=== PATIENT | female | born 1950 | race Caucasian/White ===

== ENCOUNTER 2022-02-18 11:00 | Outpatient (RCR) | payer MEDICARE, SELFPAY | END 2022-06-26 15:29 | disposition home or self-care (01) | PROVIDERS: PCP Internal Medicine; Visit Provider Internal Medicine | DX: M25.511 Pain in right shoulder (principal); Z51.89 Encounter for other specified aftercare | CPT/HCPCS: 97110 ==

== ENCOUNTER 2022-07-02 08:07 | Outpatient (CLI) | payer MEDICARE, SELFPAY ==
--- OUTSIDE RECORDS SUMMARY | 2022-07-02 13:35 | XMS_ITS | Encounter Summary ---
:1950 Author Organization [facility] Address [address] [place] [id number] Care Team Providers Name Role Phone Elyse Paredes MD Primary Care Provider Reason for Referral CV Testing (Routine) - Closed Specialty Diagnoses / Procedures Referred By Contact Refer red To Contact Diagnoses S/P TAVR (transcatheter aortic valve replacement) Dagmar Kendrick MD Procedures Echocardiogram Complete [facility] TTE W/DOPPLER, COMPLETE [facility] ECHO COMPLETE W DOPPLER W CONTRAST ZZ[facility] ECHO COMPLETE W DOPPLER W/O CONTRAST ZZ[facility] IV PUSH SINGLE, INITIAL SUBSTANCE ZZHC US GUIDE FOR PERICARDIOCENTESIS [address] [facility], ZZHC ECHO MYOCARD BX ZZC INJECTION, PERFLUTREN LIPID MICROSPHERES, PER ML ZZHC STATISTIC IV PUSH SINGLE INITIAL SUBSTANCE KS ECHO MYOCARD BX KS INJECTION, PERFLUTREN LIPID MICROSPHERES, PER ML [place] TTE W/DOPPLER, COMPLETE [address] [place] IV PUSH SINGLE, INITIAL S UBSTANCE KS TTE W/DOPPLER, COMPLETE KS TTE W/DOPPLER, COMPLETE HC US GUIDE FOR PERICARDIOCENTESIS HC ECHO MYOCARD BX HC IV PUSH SINGLE, INITIAL SUBSTANCE HC STATISTIC IV PUSH [place] [address] HC ECHO COMPLETE W DOPPLER W CONTRAST HC ECHO COMPLETE W DOPPLER W/O CONTRAST Referral ID Status Reason Start Date Expiration Date Visits Requ ested Visits Authorized [id number] Closed 03/17/2022 03/17/2023 1 1 onsultation (Routine: Next available opening) - Pending Review Specialty Diagnoses / Procedures Referred By Contact Refer red To Contact Cardiovascular Disease Diagnoses Persistent atrial fibrillation (H) Dagmar Kendrick MD [address] [facility], [address] [place] [address] Referral ID Status Reason Start Date Expiration Date Visits V isits Requested Authorized [id number] Pending 03/17/2022 03/17/2023 1 1 Review Reason for Visit Reason Comments Follow Up Encounter Details Date Type Department Care Team Description 03/17/2022 Office Visit [facility] Dagmar Kendrick, Coronary artery disease involving seldovia coronary artery of s[place]ia heart, unspecified whether angina present (Primary Dx); Heart Clinic S/P TAVR (transcatheter aortic valve rep lacement); [place] [address] Persistent atrial fibrillati on (H); [address] [facility], Essential hype rtension; [place] [address] [place] [id number] [phone] Social History Tobacco Use Types Packs/Day Years Used Date Smoking Tobacco: Never Smokeless Tobacco: Never Alcohol Use Standard Drinks/Week Comments No 0 (1 standard drink = 0.6 oz pure alcoho l) Sex Assigned at Date Recorded Not on file COVID-19 Exposure Response Date Recorded In the last 10 days, have you been in contact with No / Unsu re 03/17/2022 10:40 AM CDT someone who was confirmed or suspected to have Coronavirus/COVID-19? documented as of this encounter Last Filed Vital Signs Vital Sign Reading Time Taken Comments Blood Pressure 124/64 03/17/2022 11:12 AM CDT Pulse 83 03/17/2022 11:12 AM CDT Temperature - - Respiratory Rate 14 03/17/2022 11:12 AM CDT Oxygen Saturation - - Inhaled Oxygen Concentration - - Weight 123.4 kg (272 lb) 03/17/2022 11:12 AM CDT Height 158.8 cm (5' 2.5) 03/17/2022 11:12 AM CDT Body Mass Index 48.96 03/17/2022 11:12 AM CDT documented in this encounter Patient Instructions Patient InstructionsDagmar Kendrick MD - 03/17/2022 10:50 AM CDT Discontinue rosuvastatin for 2 weeks to see if muscle aches/cramping improve or resolve. If so, would consider alternative medications for cholesterol Visit with Roland Salazar regarding Watchman device implant Schedule echo to follow up on TAVR. Will see if they can schedule on the same day as appt with Roland documented in this encounter Progress Notes Dagmar Kendrick MD - 03/17/2022 10:50 AM CDT Images from the original note were not included. Thank you for asking the [facility] team to see Ms. Irvin Hoffman to follow-up on coronary artery disease, previous TAVR, hypercholesterolemia. Assessment/Recommendations Assessment: 1. Coronary artery disease, status post stenting of the left anterior descending in June 2017 prior to TAVR. She reports no complaints of exertional chest discomfort. She has had chronic exertionaldyspnea since her procedure with nuclear stress study last year negative for ischemia. At this pointsuspect her exertional dyspnea is likely due to obesity and cardiovascular deconditioning. 2. Aortic valve stenosis, status post TAVR June 2017. Her last echocardiogram was in October 2019 demonstrating mean gradient of 20 mmHg which have been unchanged. Recommended repeat echocardiogram to follow-up on her prosthetic valve. 3. Persistent atrial fibrillation, resolved following amiodarone therapy. She remains on warfarin anticoagulation to minimize risks of thromboembolic events. She is having significant joint discomfort,likely due to osteoarthritis. Cannot be on NSAIDs due to her anticoagulation. Did bring up the option of watchman device implant which would allow her to come off anticoagulation and potentially be on nonsteroidal anti-inflammatory agents. We will refer her to the A. fib clinic to meet with Roland Salazar who she has seen in the past to discuss this possibility. 4. Hypercholesterolemia, currently treated with rosuvastatin. She reports multiple muscle aches. Unclear whether it may be statin related. Suggested she hold her rosuvastatin for the next couple of weeks and update me if she notes any improvement in symptoms. 5. Essential hypertension, well controlled Plan: 1. Discontinue rosuvastatin for the next 2 weeks to see if muscle aches/cramping resolved. If so, consider PCSK9 inhibitor to drive LDL below 70. 2. Visit with Roland Salazar regarding watchman device implant 3. Schedule echocardiogram to follow-up on TAVR. We will be in touch with her regarding results and any recommendations 4. Tentative follow-up with me in 1 year History of Present Illness Ms. Irvin Hoffman is a 71 year old female with history of coronary artery disease and aortic valve stenosis, status post drug-eluting stent placement to the mid LAD in 2017 followed by TAVR, persistent atrial fibrillation resolved following amiodarone and cardioversion now on beta-elpidio and warfarin anticoagulation, hypercholesterolemia, obesity who presents to the office today for a follow-up visit. Tells me she is having increasing pain in her joints and muscles as well as intermittent cramping. Was told by her new primary care provider that if she was not taking warfarin he could potentially put her on medication to help with her arthritis issues. Suspect he is considering NSAIDs which are notrecommended in patients on oral anticoagulation. Did bring up the possibility of a watchman device implant which would allow her to come off anticoagulation as she is clearly at risk for recurrent atrial fibrillation. Presently she denies any symptoms of exertional chest discomfort. Does have her chronic exertional dyspnea. No orthopnea, PND or lower extremity edema. Does admit to feeling quite fatigued but does wear her CPAP mask faithfully. ECG (personally reviewed): No ECG today Cardiac Imaging Studies (personally reviewed): No recent imaging Physical Examination Review of Systems BP 124/64 (BP Location: Right arm, Patient Position: Sitting, Cuff Size: Adult Large) Pulse 83 Resp 14 Ht 1.588 m (5' 2.5) Wt 123.4 kg (272 lb) BMI 48.96 kg/m?? Body mass index is 48.96 kg/m??. Wt Readings from Last 3 Encounters: 03/17/22 123.4 kg (272 lb) 12/26/20 120.1 kg (264 lb 12.8 oz) 12/29/19 128.8 kg (284 lb) General Appearance: Awake, Alert, No acute distress. HEENT: No scleral icterus; the mucous membranes were pink and moist. Neck: No cervical bruits or jugular venous distention Chest: The spine was straight. The chest was symmetric. Lungs: Respirations unlabored; the lungs are clear to auscultation. No wheezing Cardiovascular: Regular rate and rhythm. S1, S2 normal. 1/6 systolic ejection murmur heard at the left upper sternal border. No diastolic murmur. Abdomen: No organomegaly, masses, bruits, or tenderness. Bowels sounds are present Extremities: No peripheral edema bilaterally Skin: No xanthelasma. Warm, Dry. Musculoskeletal: No tenderness. Neurologic: Mood and affect are appropriate. Enc Vitals BP: 124/64 Pulse: 83 Resp: 14 Weight: 123.4 kg (272 lb) Height: 158.8 cm (5' 2.5) Medical History Surgical History Family History Social History Past Medical History: Diagnosis Date ??? Bicuspid aortic valve 2017 ??? Cancer (H) 2017 breast cancer invasive ductal carcinoma ??? CHF (congestive heart failure) (H) 2016 ??? Coronary artery disease 05/2017 JEFFERSON,LAD (2 stents) ??? Depression 2013 ??? Diabetes mellitus (H) 1994 insulin ??? DJD (degenerative joint disease) ??? Dyspnea 2017 ??? Hyperlipidemia 1995 ??? Hypertension 1995 ??? Kidney stones 2017 ??? Morbid obesity (H) ??? Nephrolithiasis 2017 renal cyst ??? DEDE on CPAP 2008 ??? Persistent atrial fibrillation (H) 2016 ??? Severe aortic stenosis 2017 ??? Thyroid cyst ??? Tooth abscess 2016 Past Surgical History: Procedure Laterality Date ??? CARDIAC CATHETERIZATION 05/12/2017 ??? CARDIOVERSION 2017 ??? COLONOSCOPY N/A 06/27/2019 Procedure: COLONOSCOPY; Surgeon: Jeni Barrera MD; Location: [facility]; Service: Gastroenterology ??? COLONOSCOPY N/A 10/10/2019 Procedure: COLONOSCOPY; Surgeon: Falguni Mccain MD; Location: [facility]; Service: Gastroenterology ??? CV CORONARY ANGIOGRAM N/A 05/12/2017 Procedure: Coronary Angiogram; Surgeon: Ankush Martinez MD; Location: [facility]; Service: ??? CV TRANSCATHETER AORTIC VAVLE REPLACEMENT - FEMORAL APPROACH N/A 07/06/2017 Procedure: Transfemoral Transcatheter Aortic Valve Replacement; Surgeon: Ankush Martinez MD; Location: [facility]; Service: ??? LUMPECTOMY BREAST Left 2019 completed radiation therapy ??? TOTAL KNEE ARTHROPLASTY Bilateral Family History Problem Relation Age of Onset ??? Diabetes Father ??? Heart Disease Father ??? Esophageal Cancer Brother ??? Urolithiasis No family hx of ??? Clotting Disorder No family hx of ??? Gout No family hx of Social History Socioeconomic History ??? Marital status: Spouse name: Not on file ??? Number of children: Not on file ??? Years of education: Not on file ??? Highest education level: Not on file Occupational History ??? Not on file Tobacco Use ??? Smoking status: Never Smoker ??? Smokeless tobacco: Never Used Substance and Sexual Activity ??? Alcohol use: No ??? Drug use: No ??? Sexual activity: Not Currently Other Topics Concern ??? Not on file Social History Narrative ??? Not on file Social Determinants of Health Financial Resource Strain: Not on file Food Insecurity: Not on file Transportation Needs: Not on file Physical Activity: Not on file Stress: Not on file Social Connections: Not on file Intimate Partner Violence: Not on file Housing Stability: Not on file Medications Allergies Current Outpatient Medications Medication Sig Dispense Refill ??? acetaminophen (TYLENOL) 650 MG CR tablet Take 1,300 mg by mouth as needed ??? allopurinoL (ZYLOPRIM) 100 MG tablet [ALLOPURINOL (ZYLOPRIM) 100 MG TABLET] Take 1 tablet by mouth daily. ??? amoxicillin (AMOXIL) 500 MG tablet [AMOXICILLIN (AMOXIL) 500 MG TABLET] Take 2,000 mg by mouth as needed (prior to dental work). ??? aspirin 81 MG EC tablet [ASPIRIN 81 MG EC TABLET] Take 1 tablet (81 mg total) by mouth daily. 0 ??? BD INSULIN PEN NEEDLE UF MINI 31 gauge x 10/15 Ndle [BD INSULIN PEN NEEDLE UF MINI 31 GAUGE X 10/15 NDLE] USE 4-5 PER DAY UTD 0 ??? BD INSULIN PEN NEEDLE UF SHORT 31 gauge x 12/15 Ndle [BD INSULIN PEN NEEDLE UF SHORT 31 GAUGE X 12/15 NDLE] USE WITH TOUJEO AND VICTOZA BID 3 ??? cholecalciferol 25 MCG (1000 UT) TABS Take 1,000 Units by mouth daily ??? CRESTOR 10 mg tablet [CRESTOR 10 MG TABLET] Take 10 mg by mouth daily. ??? famotidine (FOR PEPCID) 10 MG tablet [FAMOTIDINE (FOR PEPCID) 10 MG TABLET] Take 10 mg by mouth as needed. ??? insulin lispro (HUMALOG) 100 unit/mL injection [INSULIN LISPRO (HUMALOG) 100 UNIT/ML INJECTION] Inject 6-10 Units under the skin 3 (three) times a day before meals. ??? LANTUS SOLOSTAR 100 unit/mL (3 mL) pen [LANTUS SOLOSTAR 100 UNIT/ML (3 ML) PEN] 60 Units at bedtime. Last night 28u ??? losartan (COZAAR) 50 MG tablet [LOSARTAN (COZAAR) 50 MG TABLET] Take 1.5 tablets (75 mg total) by mouth daily. 135 tablet 2 ??? metoprolol succinate (TOPROL-XL) 25 MG [METOPROLOL SUCCINATE (TOPROL-XL) 25 MG] TAKE 1 TABLET(25MG) BY MOUTH DAILY 90 tablet 0 ??? semaglutide (OZEMPIC) 0.25 mg or 0.5 mg(2 mg/1.5 mL) PnIj [SEMAGLUTIDE (OZEMPIC) 0.25 MG OR 0.5 MG(2 MG/1.5 ML) PNIJ] as directed ??? tamoxifen (NOLVADEX) 20 MG tablet [TAMOXIFEN (NOLVADEX) 20 MG TABLET] Take 1 tablet by mouth daily. ??? venlafaxine (EFFEXOR-XR) 37.5 MG 24 hr capsule Take 37.5 mg by mouth daily ??? warfarin ANTICOAGULANT (COUMADIN) 4 MG tablet Take 4 mg by mouth daily ??? anastrozole (ARIMIDEX) 1 mg tablet [ANASTROZOLE (ARIMIDEX) 1 MG TABLET] Take 1 mg by mouth daily. (Patient not taking: Reported on 03/17/2022) ??? celecoxib (CELEBREX) 200 MG capsule [CELECOXIB (CELEBREX) 200 MG CAPSULE] Take 200 mg by mouth daily. (Patient not taking: Reported on 03/17/2022) ??? chlorthalidone (HYGROTEN) 25 MG tablet [CHLORTHALIDONE (HYGROTEN) 25 MG TABLET] Take 1 tablet (25 mg total) by mouth daily. (Patient not taking: Reported on 03/17/2022) 90 tablet 2 ??? dulaglutide 0.75 mg/0.5 mL PnIj [DULAGLUTIDE 0.75 MG/0.5 ML PNIJ] Inject 1.5 mg under the skin once a week. (Patient not taking: Reported on 03/17/2022) ??? methocarbamoL (ROBAXIN) 500 MG tablet [METHOCARBAMOL (ROBAXIN) 500 MG TABLET] Take 1 tablet (500mg total) by mouth 2 (two) times a day as needed (muscle spasm). (Patient not taking: Reported on 03/17/2022) 14 tablet 0 ??? oxyCODONE (ROXICODONE) 5 MG immediate release tablet [OXYCODONE (ROXICODONE) 5 MG IMMEDIATE RELEASE TABLET] Take 1 tablet (5 mg total) by mouth every 8 (eight) hours as needed (breakthrough pain). (Patient not taking: Reported on 03/17/2022) 6 tablet 0 ??? sertraline (ZOLOFT) 100 MG tablet [SERTRALINE (ZOLOFT) 100 MG TABLET] Take 50 mg by mouth daily.(Patient not taking: Reported on 03/17/2022) ??? warfarin (COUMADIN/JANTOVEN) 2.5 MG tablet [WARFARIN (COUMADIN/JANTOVEN) 2.5 MG TABLET] TAKE 1 TABLET BY MOUTH EVERY DAY (Patient not taking: Reported on 03/17/2022) 90 tablet 0 ??? warfarin (COUMADIN/JANTOVEN) 5 MG tablet [WARFARIN (COUMADIN/JANTOVEN) 5 MG TABLET] TAKE 1 TABLET BY MOUTH DAILY. ADJUST DOSE BASED ON INR RESULTS DIRECTED (Patient not taking: Reported on 03/17/2022) 30 tablet 0 Allergies Allergen Reactions ??? Lisinopril Cough ??? Metformin Nausea and Vomiting ??? Erythromycin Base [Erythromycin] Rash ??? Ilosone [Erythromycin] Rash Lab Results Chemistry/lipid CBC Cardiac Enzymes/BNP/TSH/INR Recent Labs Lab Test 04/28/21 1443 06/05/20 1053 10/04/19 1502 TRIG -- -- 182* LDL -- -- 70 BUN 16 < > 25* NA 141 < > 140 CO2 25 < > 29 < > = values in this interval not displayed. Recent Labs Lab Test 06/05/20 1053 WBC 7.6 HGB 13.5 HCT 38.5 MCV 94 PLT 190 Recent Labs Lab Test 06/05/20 1053 10/04/19 1502 04/11/18 0000 03/23/18 0932 TROPONINI 0.02 -- -- -- BNP -- 12 -- -- TSH -- -- -- 5.91* INR 2.10* -- < > -- < > = values in this interval not displayed. A total of 45 minutes was spent reviewing patient's medical records, obtaining history and performing examination, as well as discussing diagnoses/ recommendations with patient and answering all questions. documented in this encounter Plan of Treatment Scheduled Referrals Name Type Priority Associated Diagnoses Order S chedule Follow-Up with Referral Routine: Next Persistent atrial Expecte d: Cardiology available opening fibrillation (H) 2021 (Approximate), Expires: 03/17/2023 documented as of this encounter Results ECHO COMPLETE WITH CONTRAST (04/22/2022 3:50 PM CDT) P athologist Signature LVEF 60-65% CARDIOLOGY RESULTS Anatomical Region Laterality Modality Ultrasound, Ultrasou nd Specimen (Source) Anatomical Collection Method Collection Time Re ceived Time Location / / Volume Laterality 04/22/2022 2:53 PM CDT Narrative 04/22/2022 4:09 PM CDT [id number]^AROLDO^DAGMAR^[place] [address] Name: IRVIN HOFFMAN : 1950 Study Date: 04/22/2022 02:53 PM Age: 72 yrs Gender: Female Patient Location: [facility] Reason For Study: S/P TAVR (transcathete r aortic valve replacement) Ordering Physician: DAGMAR KENDRICK Referring Physician: DAGMAR KENDRICK Performed By: AT BSA: 2.2 m2 Height: 62 in Weight: 272 lb HR: 64 BP: 136/68 mmHg Procedure Complete Echo Adult. Definity ([facility] #[id number] 4-011) given intravenously. Interpretation Summary The visual ejection fraction is 60-65%. Left ventricular diastolic function is a bnormal. The right ventricle is normal in size an d function. There is trace mitral regurgitation. 23mm Renita 3 bioprosthetic aortic valve with mean gradient of 21 mmHg. Mild paravalvular regurgitation. Compared to the prior study dated 020, there are changes as noted. Mild paravalvular regurgitation is now presen t. Left Ventricle The left ventricle is normal in size. Th ere is borderline concentric left ventricular hypertrophy. The visual ejec tion fraction is 60-65%. Diastolic Doppler findings (E/E' ratio and/or othe r parameters) suggest left ventricular filling pressures are increased. Left ve ntricular diastolic function is abnormal. No regional wall motion abnorm alities noted. Right Ventricle The right ventricle is normal in size an d function. Atria Normal left atrial size. Right atrial si ze is normal. Intact atrial septum. Mitral Valve Mitral valve leaflets appear normal. The re is trace mitral regurgitation. Tricuspid Valve The tricuspid valve is not well visualiz ed. No tricuspid regurgitation. Aortic Valve There is a RENITA 3 bioprosthetic valve present in aortic valve position. There is mild paravalvular regurgitation present. Mean gradient across the aortic valve is 21 mmHg. Pulmonic Valve The pulmonic valve is not well visualize d. Vessels The aorta root is normal. Normal size as cending aorta. IVC diameter <2.1 cm collapsing >50% with sniff suggests a no rmal RA pressure of 3 mmHg. Pericardium There is no pericardial effusion. MMode/2D Measurements & Calculations IVSd: 1.1 cm LVIDd: 4.9 cm LVIDs: 3.1 cm LVPWd: 0.87 cm FS: 35.9 % LV mass(C)d: 166.0 grams LV mass(C)dI: 76.2 grams/m2 Ao root diam: 2.5 cm LA dimension: 4.1 cm asc Aorta Diam: 3.6 cm LA/Ao: 1.6 LVOT diam: 1.8 cm LVOT area: 2.6 cm2 LA Volume (BP): 58.0 ml LA Volume Index (BP): 26.6 ml/m2 LA Volume Indexed (AL/bp): 27.9 ml/m2 RWT: 0.36 Time Measurements MM HR: 66.0 BPM Doppler Measurements & Calculations MV E max ulises: 130.5 cm/sec MV A max ulises: 118.4 cm/sec MV E/A: 1.1 MV max P.4 mmHg MV mean P.0 mmHg MV V2 VTI: 47.4 cm MVA(VTI): 2.1 cm2 MV dec time: 0.22 sec Ao V2 max: 270.7 cm/sec Ao max P.0 mmHg Ao V2 mean: 215.8 cm/sec Ao mean P.9 mmHg Ao V2 VTI: 73.3 cm JUDY(I,D): 1.4 cm2 JUDY(V,D): 1.4 cm2 AI P1/2t: 270.2 msec Ao acc time: 0.10 sec LV V1 max P.0 mmHg LV V1 max: 141.2 cm/sec LV V1 VTI: 37.8 cm SV(LVOT): 99.8 ml SI(LVOT): 45.8 ml/m2 PA acc time: 0.15 sec AV Ulises Ratio (DI): 0.52 JUDY Index (cm2/m2): 0.63 E/E': 20.1 E/E' av.8 Lateral E/e': 13.3 Medial E/e': 20.3 Peak E' Ulises: 6.5 cm/sec Report approved by: Wolf Damon 04:09 PM Procedure Note Dagmar Kendrick MD - 04/22/2022 [id number]^AROLDO^[place] [address] Name: IRVIN HOFFMAN : 1950 Study Date: 04/22/2022 02:53 PM Age: 72 yrs Gender: Female Patient Location: [facility] Reason For Study: S/P TAVR (transcathete r aortic valve replacement) Ordering Physician: DAGMAR KENDRICK Referring Physician: DAGMAR KENDRICK Performed By: AT BSA: 2.2 m2 Height: 62 in Weight: 272 lb HR: 64 BP: 136/68 mmHg Procedure Complete Echo Adult. Definity ([facility] #1199 4-011) given intravenously. Interpretation Summary The visual ejection fraction is 60-65%. Left ventricular diastolic function is a bnormal. The right ventricle is normal in size an d function. There is trace mitral regurgitation. 23mm Renita 3 bioprosthetic aortic valve with mean gradient of 21 mmHg. Mild paravalvular regurgitation. Compared to the prior study dated 020, there are changes as noted. Mild paravalvular regurgitation is now presen t. Left Ventricle The left ventricle is normal in size. Th ere is borderline concentric left ventricular hypertrophy. The visual ejec tion fraction is 60-65%. Diastolic Doppler findings (E/E' ratio and/or othe r parameters) suggest left ventricular filling pressures are increased. Left ve ntricular diastolic function is abnormal. No regional wall motion abnorm alities noted. Right Ventricle The right ventricle is normal in size an d function. Atria Normal left atrial size. Right atrial si ze is normal. Intact atrial septum. Mitral Valve Mitral valve leaflets appear normal. The re is trace mitral regurgitation. Tricuspid Valve The tricuspid valve is not well visualiz ed. No tricuspid regurgitation. Aortic Valve There is a RENITA 3 bioprosthetic valve present in aortic valve position. There is mild paravalvular regurgitation present. Mean gradient across the aortic valve is 21 mmHg. Pulmonic Valve The pulmonic valve is not well visualize d. Vessels The aorta root is normal. Normal size as cending aorta. IVC diameter <2.1 cm collapsing >50% with sniff suggests a no rmal RA pressure of 3 mmHg. Pericardium There is no pericardial effusion. MMode/2D Measurements & Calculations IVSd: 1.1 cm LVIDd: 4.9 cm LVIDs: 3.1 cm LVPWd: 0.87 cm FS: 35.9 % LV mass(C)d: 166.0 grams LV mass(C)dI: 76.2 grams/m2 Ao root diam: 2.5 cm LA dimension: 4.1 cm asc Aorta Diam: 3.6 cm LA/Ao: 1.6 LVOT diam: 1.8 cm LVOT area: 2.6 cm2 LA Volume (BP): 58.0 ml LA Volume Index (BP): 26.6 ml/m2 LA Volume Indexed (AL/bp): 27.9 ml/m2 RWT: 0.36 Time Measurements MM HR: 66.0 BPM Doppler Measurements & Calculations MV E max ulises: 130.5 cm/sec MV A max ulises: 118.4 cm/sec MV E/A: 1.1 MV max P.4 mmHg MV mean P.0 mmHg MV V2 VTI: 47.4 cm MVA(VTI): 2.1 cm2 MV dec time: 0.22 sec Ao V2 max: 270.7 cm/sec Ao max P.0 mmHg Ao V2 mean: 215.8 cm/sec Ao mean P.9 mmHg Ao V2 VTI: 73.3 cm JUDY(I,D): 1.4 cm2 JUDY(V,D): 1.4 cm2 AI P1/2t: 270.2 msec Ao acc time: 0.10 sec LV V1 max P.0 mmHg LV V1 max: 141.2 cm/sec LV V1 VTI: 37.8 cm SV(LVOT): 99.8 ml SI(LVOT): 45.8 ml/m2 PA acc time: 0.15 sec AV Ulises Ratio (DI): 0.52 JUDY Index (cm2/m2): 0.63 E/E': 20.1 E/E' av.8 Lateral E/e': 13.3 Medial E/e': 20.3 Peak E' Ulises: 6.5 cm/sec Report approved by: Wolf Damon 04:09 PM Dagmar Kendrick MD CV ECHO ORDERABLES documented in this encounter Visit Diagnoses Diagnosis Coronary artery disease involving [place] coronary artery of [place] heart, unspecified whether angina present - Primary S/P TAVR (transcatheter aortic valve rep lacement) Persistent atrial fibrillation (H) Atrial fibrillation Essential hypertension Unspecified essential hypertension Hypercholesterolemia Pure hypercholesterolemia S/P TAVR (transcatheter aortic valve rep lacement) documented in this encounter 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
--- OUTSIDE RECORDS SUMMARY | 2022-07-02 13:35 | XMS_ITS | Encounter Summary ---
:1950 Author Organization [facility] Address [address] [place] [address] Care Team Providers Name Role Phone Dagmar Kang MD Unavailable Elyse Paredes MD Primary Care Provider Encounter Details Date Type Department Care Team Description 01/12/2022 Travel Social History Tobacco Use Types Packs/Day Years Used Date Smoking Tobacco: Never Smokeless Tobacco: Never Alcohol Use Standard Drinks/Week Comments No 0 (1 standard drink = 0.6 oz pure alcoho l) Sex Assigned at Date Recorded Not on file COVID-19 Exposure Response Date Recorded In the last 10 days, have you been in contact Unable to asse ss 01/12/2022 2:35 PM CDT with someone who was confirmed or suspected to have Coronavirus/COVID-19? documented as of this encounter Plan of Treatment Not on filedocumented as of this encounter Visit Diagnoses Not on filedocumented in this encounter Care Teams C Web Developer Relationship Specialty Start Date End Date Elyse Paredes MD PCP - General Family Practice 12/22/13 04/21/22 [address] [place] [address] Dagmar Kang MD Assigned Heart and 02/14/21 02/27/22 [address] [facility], Vascular Provider [address] [place] [address] documented as of this encounter
--- OUTSIDE RECORDS SUMMARY | 2022-07-02 13:35 | XMS_ITS | Encounter Summary ---
:1950 Author Organization [place] Address [address] [place] [address] Care Team Providers Name Role Phone Dagmar Kang MD Unavailable Raghu Bae MD Primary Care Provider [phone] Reason for Referral CV Testing (Routine) - Pending Review Specialty Diagnoses / Procedures Referred By Contact Refer red To Contact Diagnoses Chronic diastolic congestive heart failure (H) Dagmar Kang MD Procedures Echocardiogram Complete [facility] TTE W/DOPPLER, COMPLETE [facility] ECHO COMPLETE W DOPPLER W CONTRAST [facility] ECHO COMPLETE W DOPPLER W/O CONTRAST Z[facility] IV PUSH SINGLE, INITIAL SUBSTANCE ZZ[facility] US GUIDE FOR PERICARDIOCENTESIS [address] [facility], ZZHC ECHO MYOCARD BX ZZC INJECTION, PERFLUTREN LIPID MICROSPHERES, PER ML ZZ[facility] STATISTIC IV PUSH SINGLE INITIAL SUBSTANCE VT ECHO MYOCARD BX VT INJECTION, PERFLUTREN LIPID MICROSPHERES, PER ML VT TTE W/DOPPLER, COMPLETE [address] VT IV PUSH SINGLE, INITIAL S UBSTANCE VT TTE W/DOPPLER, COMPLETE VT TTE W/DOPPLER, COMPLETE HC US GUIDE FOR PERICARDIOCENTESIS HC ECHO MYOCARD BX HC IV PUSH SINGLE, INITIAL SUBSTANCE HC STATISTIC IV PUSH [place] [address] HC ECHO COMPLETE W DOPPLER W CONTRAST HC ECHO COMPLETE W DOPPLER W/O CONTRAST Referral ID Status Reason Start Date Expiration Date Visits V isits Requested Authorized [id number] Pending 04/23/2022 04/23/2023 1 1 Review Encounter Details Date Type Department Care Team Description 04/23/2022 Orders Only [facility] Heart PérezGloria casey [facility] onic diastolic Clinic [place] congestive heart failure [address] [facility] [address] [place] [address] Social History Tobacco Use Types Packs/Day Years Used Date Smoking Tobacco: Never Smokeless Tobacco: Never Alcohol Use Standard Drinks/Week Comments No 0 (1 standard drink = 0.6 oz pure alcoho l) Sex Assigned at Date Recorded Not on file COVID-19 Exposure Response Date Recorded In the last 10 days, have you been in contact with No / Unsu re 04/22/2022 1:41 PM CDT someone who was confirmed or suspected to have Coronavirus/COVID-19? documented as of this encounter Plan of Treatment Scheduled Orders Name Type Priority Associated Order Schedule Diagnoses Echocardiogram Complete Echocardiography Routine Chronic diast olic Expected: congestive heart 04/23/2022 failure (H) (Approximate), Expires: 04/23/2023 documented as of this encounter Visit Diagnoses Diagnosis Chronic diastolic congestive heart failu re (H) - Primary Chronic diastolic heart failure documented in this encounter Care Teams Seismograph Observer Relationship Specialty Start Date End Date Raghu Bae PCP - General Emergency Medicine 04/22/22 MD [facility] [address] [place] [address] Dagmar Kang MD Assigned Heart and 03/21/22 04/24/22 [address] [facility], Vascular Provider [address] [place] [address] documented as of this encounter
--- OUTSIDE RECORDS SUMMARY | 2022-07-02 13:35 | XMS_ITS | Encounter Summary ---
:1950 Author Organization [facility] Address [address] [place] [address] Care Team Providers Name Role Phone Elyse Paredes MD Primary Care Provider Encounter Details Date Type Department Care Team Description 03/17/2022 Travel Social History Tobacco Use Types Packs/Day [...] on filedocumented in this encounter Care Teams Artist Manager Relationship Specialty Start Date End Date Elyse Paredes MD PCP - General Family Practice 12/22/13 04/21/22 [address] [place] [address] documented as of this encounter
--- OUTSIDE RECORDS SUMMARY | 2022-07-02 13:35 | XMS_ITS | Encounter Summary ---
:1950 Author Organization [facility] Address [address] [place] [address] Care Team Providers Name Role Phone Raghu Bae MD Primary Care Provider [phone] Nicole Salazar APRN MD PSYCHIATRY Unavailable [phone] Encounter Details Date Type Department Care Team Description 06/02/2022 Travel Social History Tobacco Use Types Packs/Day Years Used Date Smoking Tobacco: Never Smokeless Tobacco: Never Alcohol Use Standard Drinks/Week Comments No 0 (1 standard drink = 0.6 oz pure alcoho l) Sex Assigned at Date Recorded Not on file COVID-19 Exposure Response Date Recorded In the last 10 days, have you been in contact with No / Unsu re 06/02/2022 11:29 AM CDT someone who was confirmed or suspected to have Coronavirus/COVID-19? documented as of this encounter Plan of Treatment Not on filedocumented as of this encounter Visit Diagnoses Not on filedocumented in this encounter Care Teams Finish Repair Worker Relationship Specialty Start Date End Date Raghu Bae PCP - General Emergency Medicine 04/22/[address] [facility] [address] [place] [address] Nicole Salazar Assigned Heart and 04/25/22 ARMATURE CONNECTOR MD PSYCHIATRY Vascular Provider [address] [facility] [address] [place] [address] documented as of this encounter
--- OUTSIDE RECORDS SUMMARY | 2022-07-02 13:35 | XMS_ITS | Encounter Summary ---
:1950 Author Organization [facility] Address [address] [place] [address] Care Team Providers Name Role Phone Elyse Paredes MD Primary Care Provider Encounter Details Date Type Department Care Team Description 01/02/2021 Hospital Encounter [facility] Dagmar Kang MD [address], [address] [place] [address] [place] [id number] (Wo rk) Social History Tobacco Use Types Packs/Day Years Used Date Smoking Tobacco: Never Assessed Sex Assigned at Date Recorded Not on file documented as of this encounter Medications at Time of Discharge Medication Sig Dispensed Refills Start Date End Date allopurinoL (ZYLOPRIM) [ALLOPURINOL 0 12/26/2020 100 MG tablet (ZYLOPRIM) 100 MG TABLET] Take 1 tablet by mouth daily. amoxicillin (AMOXIL) 500 [AMOXICILLIN 0 9 MG tablet (AMOXIL) 500 MG TABLET] Take 2,000 mg by mouth as needed (prior to dental work). aspirin 81 MG EC [ASPIRIN 81 MG EC 0 08/08/2018 tabletIndications: S/P TABLET] Take 1 TAVR (transcatheter tablet (81 mg aortic valve replacement) total) by mouth daily. BD INSULIN PEN NEEDLE UF [BD INSULIN PEN 0 2016 MINI 31 gauge x 3/16 NEEDLE UF MINI 31 Ndle GAUGE X 316 NDLE] USE 4-5 PER DAY UTD famotidine (FOR PEPCID) [FAMOTIDINE (FOR 0 2018 10 MG tablet PEPCID) 10 MG TABLET] Take 10 mg by mouth as needed. insulin lispro (HUMALOG) [INSULIN LISPRO 0 2017 100 unit/mL injection (HUMALOG) 100 UNIT/ML INJECTION] Inject 6-10 Units under the skin 3 (three) times a day before meals. LANTUS SOLOSTAR 100 [LANTUS SOLOSTAR 0 06/28/2015 unit/mL (3 mL) pen 100 UNIT/ML (3 ML) PEN] 60 Units at bedtime. Last night 28u losartan (COZAAR) 50 MG [LOSARTAN (COZAAR) 135 tablet 2 01/30 tabletIndications: Benign 50 MG TABLET] Take essential hypertension 1.5 tablets (75 mg total) by mouth daily. metoprolol succinate [METOPROLOL 90 tablet 0 11/18/2020 (TOPROL-XL) 25 SUCCINATE MGIndications: S/P TAVR (TOPROL-XL) 25 MG] (transcatheter aortic TAKE 1 TABLET(25 valve replacement) MG) BY MOUTH DAILY semaglutide (OZEMPIC) [SEMAGLUTIDE 0 10/06/2019 0.25 mg or 0.5 mg(2 (OZEMPIC) 0.25 MG mg/1.5 mL) PnIj OR 0.5 MG(2 MG/1.5 ML) PNIJ] as directed tamoxifen (NOLVADEX) 20 [TAMOXIFEN 0 12/26/2020 MG tablet (NOLVADEX) 20 MG TABLET] Take 1 tablet by mouth daily. venlafaxine (EFFEXOR-XR) Take 37.5 mg by 0 2020 37.5 MG 24 hr capsule mouth daily anastrozole (ARIMIDEX) 1 [ANASTROZOLE 0 9 04/22/2022 mg tablet (ARIMIDEX) 1 MG TABLET] Take 1 mg by mouth daily. BD INSULIN PEN NEEDLE UF [BD INSULIN PEN 3 201604/22/2022 SHORT 31 gauge x 12/15 NEEDLE UF SHORT 31 Ndle GAUGE X 12/15 NDLE] USE WITH TOUJEO AND VICTOZA BID celecoxib (CELEBREX) 200 [CELECOXIB 0 05/20/2015 04/22/2022 MG capsule (CELEBREX) 200 MG CAPSULE] Take 200 mg by mouth daily. chlorthalidone (HYGROTEN) [CHLORTHALIDONE 90 tablet 2 02/1304/22/2022 25 MG tabletIndications: (HYGROTEN) 25 MG S/P TAVR (transcatheter TABLET] Take 1 aortic valve replacement) tablet (25 mg total) by mouth daily. CRESTOR 10 mg tablet [CRESTOR 10 MG 0 06/28/2015 04/03/2022 TABLET] Take 10 mg by mouth daily. dulaglutide 0.75 mg/0.5 [DULAGLUTIDE 0.75 0 01/2604/22/2022 mL PnIj MG/0.5 ML PNIJ] Inject 1.5 mg under the skin once a week. methocarbamoL (ROBAXIN) [METHOCARBAMOL 14 tablet 0 06/05/20 20 04/22/2022 500 MG tabletIndications: (ROBAXIN) 500 MG Acute pain of left TABLET] Take 1 shoulder tablet (500 mg total) by mouth 2 (two) times a day as needed (muscle spasm). oxyCODONE (ROXICODONE) 5 [OXYCODONE 6 tablet 0 06/05/2020 04/22/2022 MG immediate release (ROXICODONE) 5 MG tabletIndications: Acute IMMEDIATE RELEASE pain of left shoulder TABLET] Take 1 tablet (5 mg total) by mouth every 8 (eight) hours as needed (breakthrough pain). sertraline (ZOLOFT) 100 [SERTRALINE 0 05/20/2015 04/22/2022 MG tablet (ZOLOFT) 100 MG TABLET] Take 50 mg by mouth daily. warfarin [WARFARIN 90 tablet 0 08/01/2018 04/22/2022 (COUMADIN/JANTOVEN) 2.5 (COUMADIN/JANTOVEN) MG tabletIndications: 2.5 MG TABLET] TAKE Paroxysmal atrial 1 TABLET BY MOUTH fibrillation (H) EVERY DAY warfarin [WARFARIN 30 tablet 0 08/01/2018 04/22/2022 (COUMADIN/JANTOVEN) 5 MG (COUMADIN/JANTOVEN) tabletIndications: 5 MG TABLET] TAKE 1 Paroxysmal atrial TABLET BY MOUTH fibrillation (H) DAILY. ADJUST DOSE BASED ON INR RESULTS DIRECTED documented as of this encounter Plan of Treatment Not on filedocumented as of this encounter Visit Diagnoses Not on filedocumented in this encounter Care Teams Levelman Relationship Specialty Start Date End Date Elyes Paredes MD PCP - General Family Practice 12/22/13 04/21/22 [address] [place] [address] documented as of this encounter
--- OUTSIDE RECORDS SUMMARY | 2022-07-02 13:35 | XMS_ITS | Encounter Summary ---
:1950 Author Organization [facility] Address [address] [place] [address] Care Team Providers Name Role Phone Elyse Paredes MD Primary Care Provider Dagmar Kang MD Unavailable Encounter Details Date Type Department Care Team Description 04/20/2022 Travel Social History Tobacco Use Types Packs/Day Years Used Date Smoking Tobacco: Never Smokeless Tobacco: Never Alcohol Use Standard Drinks/Week Comments No 0 (1 standard drink = 0.6 oz pure alcoho l) Sex Assigned at Date Recorded Not on file COVID-19 Exposure Response Date Recorded In the last 10 days, have you been in contact with No / Unsu re 04/20/2022 11:31 AM CDT someone who was confirmed or suspected to have Coronavirus/COVID-19? documented as of this encounter Plan of Treatment Not on filedocumented as of this encounter Visit Diagnoses Not on filedocumented in this encounter Care Teams Clamp Jig Assembler Relationship Specialty Start Date End Date Elyse Paredes MD PCP - General Family Practice 12/22/13 04/21/22 [address] [place] [address] Dagmar Kang MD Assigned Heart and 03/21/22 04/24/22 1600 [facility], Vascular Provider [address] [place] [address] documented as of this encounter
--- OUTSIDE RECORDS SUMMARY | 2022-07-02 13:35 | XMS_ITS | Encounter Summary ---
:1950 Author Organization [facility] Address [address] [place] [address] Care Team Providers Name Role Phone Elyse Paredes MD Primary Care Provider Dagmar Kang MD Unavailable Reason for Visit Reason Onset Date Comments Results 04/02/2022 2 week call abck Encounter Details Date Type Department Care Team Description 04/02/2022 Telephone [facility] Renetta Kang MD Results (2 week call [facility] [place] [facility] [address] [facility], [address] [place] [phone] Social History Tobacco Use Types Packs/Day Years [...] have Coronavirus/COVID-19? documented as of this encounter Miscellaneous Notes Telephone Encounter - Edelmira Paez RN - 04/03/2022 10:29 AM CDT Phone call to patient - informed her of Dr. Kang's response / recommendations - patient verbalized understanding after questions addressed and confirmed preferred pharmacy for new Rx's - patient agreed to sched follow-up lab appt and call back during interim if she develops any new sx - orders placedper protocol - call transf to sched. mg Telephone Encounter - Edelmira Paez RN - 04/03/2022 10:20 AM CDT Images from the original note were not included. [facility] rec'd 04-03-22 @ 1016: Dagmar Kang MD Gorshe, Maureen, [place] Lets see if she can tolerate atorvastatin 10 mg taken every other day, along with Zetia 10 mg daily.??If able to tolerate, we would want to repeat her lipids in 2 months. ??If she develops myalgias with the atorvastatin, we would need to switch to a PCSK9 inhibitor. KML Telephone Encounter - Edelmira Paez RN - 04/02/2022 1:57 PM CDT Please review patient sx update after holding Rosuvastatin - follow-up with AF TOOL FILER HAND and echo berta on 04-22-22 - any new orders? mg Telephone Encounter - Cherise Olvera - 04/02/2022 1:04 PM CDT [facility] Phone Message May a detailed message be left on voicemail: yes Reason for Call: Other: Patient was told to call Dr Kang in 2 weeks to report back. Pt went off rosuvastatin for 2 weeks. Patient says its going wonderful. Aches and pain are gone and patient feels like a new person. Patient believes Dr Kang wanted to prescribe something in place of rosuvastatin. Please review and call patient. [facility][id number] [place], [place] - [facility] [address] [facility] [place] [address] Action Taken: Other: routed to cardiology Travel Screening: Not Applicable documented in this encounter Plan of Treatment Not on filedocumented as of this encounter Results (ABNORMAL) Lipid panel reflex to direct LDL Fasting (06/02/2022 11:35 AM CDT) [facility] gist Method Time Signature Cholesterol 152 <=199 06/02/2022 [facility] mg/dL 12:27 PM CDT Triglycerides 249 (H) <=149 06/02/2022 [facility] mg/dL 12:27 PM CDT Direct Measure 47 (L) >=50 06/02/2022 [facility] HDL mg/dL 12:27 PM CDT Comment: HDL Cholesterol Reference Range: 0-2 years: No reference ranges established for [place] ents under 2 years old ??at [facility] for lipid analytes. 2-8 years: Greater than 45 mg/dL 18 years and older: Female: Greater than or equal to 50 mg/d L Male: ?? Greater than or equal to 40 mg/ dL LDL Cholesterol Calculated 55 <=129 mg/dL 06/02/20 12:27 PM CDT [facility] Patient Fasting > 8hrs? Yes 06/02/2022 12:27 PM CDT [facility] Specimen Anatomical Collection Method / Collection Time Recei gil Time (Source) Location / Volume Laterality Blood STRUCTURE OF RIGHT Venipuncture / 06/02/2022 11:35 08/2021 UPPER LIMB / Unknown AM CDT 12:02 PM CDT Unknown Dagmar Kang MD LAB - BLOOD ORDERABLES Performing Organization Address City/State/ZIP Code Phon e Number [facility] [place] [address] documented in this encounter Visit Diagnoses Diagnosis Coronary artery disease involving red devil coronary artery of red devil heart, unspecified whether angina present - Primary Hypercholesterolemia Pure hypercholesterolemia documented in this encounter Care Teams Insurance Sales Specialist Relationship Specialty Start Date End Date Reggie, Elyse Armas MD PCP - General Family Practice 12/22/13 04/21/22 [address] [facility] [place] [address] Dagmar Kang MD Assigned Heart and 03/21/22 04/24/22 1600 [facility], Vascular Provider [address] [place] [address] documented as of this encounter
--- OUTSIDE RECORDS SUMMARY | 2022-07-02 13:35 | XMS_ITS | Encounter Summary ---
:1950 Author Organization [facility] Address [address] [place] [address] Care Team Providers Name Role Phone Elyse Paredes MD Primary Care Provider Dagmar Kang MD Unavailable Raghu Bae MD Primary Care Provider [phone] Nicole Salazar APRN SUPERVISOR PACKING Unavailable [phone] Encounter Details Date Type Department Care Team Description 03/16/2022 Orders Only [facility] Unknown, P rubina [place] [address] [facility] [address] [place] [address] Social History Tobacco Use Types Packs/Day [...] Not on filedocumented as of this encounter Procedures Procedure Name Priority Date/Time Associated Diagnosis Comme nts LAB RESULT - HIM SCAN Routine 03/16/2022 documented in this encounter Results Lab Result - HIM Scan (03/16/2022) Narrative This result has an attachment that is no t available. Provider Unknown NON-BEAKER LAB TESTING documented in this encounter Visit Diagnoses Not on filedocumented in this encounter Care Teams Plate Stacker Hand Relationship Specialty Start Date End Date Elyse Paredes MD PCP - General Family Practice 12/22/13 04/21/22 [address] [place] [address] Raghu Bae PCP - General Emergency Medicine 04/22/22 MD [facility] [address] [place] [address] Dagmar Kang MD Assigned Heart and 03/21/22 04/24/22 1600 [facility], Vascular Provider [address] [place] [address] Nicole Salazar, Assigned Heart and 04/25/22 IN FILE OPERATOR SUPERVISOR PACKING Vascular Provider 1600 [facility] [address] [place] [address] documented as of this encounter
--- OUTSIDE RECORDS SUMMARY | 2022-07-02 13:35 | XMS_ITS | Encounter Summary ---
:1950 Author Organization [facility] Address [address] [place] [address] Care Team Providers Name Role Phone Dagmar Kendrick MD Unavailable Raghu Bae MD Primary Care Provider [phone] Reason for Referral CV Testing (Routine) - Closed Specialty Diagnoses / Procedures Referred By Contact Refer red To Contact Diagnoses S/P TAVR (transcatheter aortic valve replacement) Dagmar Kendrick MD Procedures Echocardiogram Complete [facility] TTE W/DOPPLER, COMPLETE [facility] ECHO COMPLETE W DOPPLER W CONTRAST [facility] ECHO COMPLETE W DOPPLER W/O CONTRAST [facility] IV PUSH SINGLE, INITIAL SUBSTANCE [facility] US GUIDE FOR PERICARDIOCENTESIS [address], [facility] ECHO MYOCARD BX ZZC INJECTION, PERFLUTREN LIPID MICROSPHERES, PER ML [facility] STATISTIC IV PUSH SINGLE INITIAL SUBSTANCE DC ECHO MYOCARD BX DC INJECTION, PERFLUTREN LIPID MICROSPHERES, PER ML DC TTE W/DOPPLER, COMPLETE [address] DC IV PUSH SINGLE, INITIAL S UBSTANCE DC TTE W/DOPPLER, COMPLETE DC TTE W/DOPPLER, COMPLETE HC US GUIDE FOR PERICARDIOCENTESIS HC ECHO MYOCARD BX HC IV PUSH SINGLE, INITIAL SUBSTANCE HC STATISTIC IV PUSH [place]ING[place] [address] HC ECHO COMPLETE W DOPPLER W CONTRAST HC ECHO COMPLETE W DOPPLER W/O CONTRAST Referral ID Status Reason Start Date Expiration Date Visits Requ ested Visits Authorized [id number] Closed 03/17/2022 03/17/2023 1 1 Reason for Visit CV Testing (Routine) - Closed Specialty Diagnoses / Procedures Referred By Contact Refer red To Contact Diagnoses S/P TAVR (transcatheter aortic valve replacement) Dagmar Kendrick MD Procedures Echocardiogram Complete [facility] TTE W/DOPPLER, COMPLETE [facility] ECHO COMPLETE W DOPPLER W CONTRAST [facility] ECHO COMPLETE W DOPPLER W/O CONTRAST [facility] IV PUSH SINGLE, INITIAL SUBSTANCE [facility] US GUIDE FOR PERICARDIOCENTESIS [address], ZZ[facility] ECHO MYOCARD BX ZZC INJECTION, PERFLUTREN LIPID MICROSPHERES, PER ML [facility] STATISTIC IV PUSH SINGLE INITIAL SUBSTANCE DC ECHO MYOCARD BX DC INJECTION, PERFLUTREN LIPID MICROSPHERES, PER ML DC TTE W/DOPPLER, COMPLETE [address] DC IV PUSH SINGLE, INITIAL S UBSTANCE DC TTE W/DOPPLER, COMPLETE DC TTE W/DOPPLER, COMPLETE HC US GUIDE FOR PERICARDIOCENTESIS HC ECHO MYOCARD BX HC IV PUSH SINGLE, INITIAL SUBSTANCE HC STATISTIC IV PUSH SINGLE INITIAL SUBSTANCE [facility] [place] [address] HC ECHO COMPLETE W DOPPLER W CONTRAST HC ECHO COMPLETE W DOPPLER W/O CONTRAST Referral ID Status Reason Start Date Expiration Date Visits Requ ested Visits Authorized [id number] Closed 03/17/2022 03/17/2023 1 1 Encounter Details Date Type Department Care Team Description 04/22/2022 Hospital Encounter [facility] Dagmar Kendrick, S/P TAVR [facility] (transcatheter [facility] Care [address] [facility] aortic valve [address] [facility], [address] replacement) [place], [place] [id number] Social History Tobacco Use Types Packs/Day Years [...] have Coronavirus/COVID-19? documented as of this encounter Medications at Time of Discharge Medication Sig Dispensed Refills Start Date End Date acetaminophen (TYLENOL) 650 Take 1,300 mg by 0 MG CR tablet mouth as needed allopurinoL (ZYLOPRIM) 100 MG [ALLOPURINOL 0 12/01 tablet (ZYLOPRIM) 100 MG TABLET] Take 1 tablet by mouth daily. amoxicillin (AMOXIL) 500 MG [AMOXICILLIN 0 2018 tablet (AMOXIL) 500 MG TABLET] Take 2,000 mg by mouth as needed (prior to dental work). aspirin 81 MG EC [ASPIRIN 81 MG EC 0 08/08/2018 tabletIndications: S/P TAVR TABLET] Take 1 (transcatheter aortic valve tablet (81 mg replacement) total) by mouth daily. atorvastatin (LIPITOR) 10 MG Take 1 tablet (10 45 tablet 1 04/03/2022 tabletIndications: Coronary mg) by mouth artery disease involving every other day [place] coronary artery of [place] heart, unspecified whether angina present, Hypercholesterolemia BD INSULIN PEN NEEDLE UF MINI [BD INSULIN PEN 0 1 09/25/2016 31 gauge x 16 Ndle NEEDLE UF MINI 31 GAUGE X 316 NDLE] USE 4-5 PER DAY UTD cholecalciferol 25 MCG (1000 Take 1,000 Units 0 UT) TABS by mouth daily ezetimibe (ZETIA) 10 MG Take 1 tablet (10 90 tablet 1 04/03 tabletIndications: Coronary mg) by mouth artery disease involving daily [place] coronary artery of [place] heart, unspecified whether angina present, Hypercholesterolemia famotidine (FOR PEPCID) 10 MG [FAMOTIDINE (FOR 0 08/08/2018 tablet PEPCID) 10 MG TABLET] Take 10 mg by mouth as needed. insulin lispro (HUMALOG) 100 [INSULIN LISPRO 0 unit/mL injection (HUMALOG) 100 UNIT/ML INJECTION] Inject 6-10 Units under the skin 3 (three) times a day before meals. LANTUS SOLOSTAR 100 unit/mL [LANTUS SOLOSTAR 0 (3 mL) pen 100 UNIT/ML (3 ML) PEN] 60 Units at bedtime. Last night 28u losartan (COZAAR) 50 MG [LOSARTAN 135 tablet 2 02/14/2020 tabletIndications: Benign (COZAAR) 50 MG essential hypertension TABLET] Take 1.5 tablets (75 mg total) by mouth daily. metoprolol succinate [METOPROLOL 90 tablet 0 11/18/2020 (TOPROL-XL) 25 MGIndications: SUCCINATE S/P TAVR (transcatheter (TOPROL-XL) 25 aortic valve replacement) MG] TAKE 1 TABLET(25 MG) BY MOUTH DAILY semaglutide (OZEMPIC) 0.25 mg [SEMAGLUTIDE 0 03/0 01/2020 or 0.5 mg(2 mg/1.5 mL) PnIj (OZEMPIC) 0.25 MG OR 0.5 MG(2 MG/1.5 ML) PNIJ] as directed tamoxifen (NOLVADEX) 20 MG [TAMOXIFEN 0 1 tablet (NOLVADEX) 20 MG TABLET] Take 1 tablet by mouth daily. venlafaxine (EFFEXOR-XR) 37.5 Take 37.5 mg by 0 0 10/16/2020 MG 24 hr capsule mouth daily warfarin ANTICOAGULANT Take 4 mg by 0 (COUMADIN) 4 MG tablet mouth daily documented as of this encounter Plan of Treatment Not on filedocumented as of this encounter Procedures Procedure Name Priority Date/Time Associated Diagnosis Comme nts ECHO COMPLETE WITH Routine 04/22/2022 3:50 PM S/P TAVR Res ults for this CONTRAST CDT (transcatheter procedure are in aortic valve the results replacement) section. documented in this encounter Results ECHO COMPLETE WITH CONTRAST (04/22/2022 3:50 PM CDT) P athologist Signature LVEF 60-65% CARDIOLOGY RESULTS Anatomical Region Laterality Modality Ultrasound, Ultrasou nd Specimen (Source) Anatomical Collection Method Collection Time Re ceived Time Location / / Volume Laterality 04/22/2022 2:53 PM CDT Narrative 04/22/2022 4:09 PM CDT [id number]^AROLDO^DAGMAR^[place] [address] Name: IRVIN HOFFMAN : 1950 Study Date: 04/22/2022 02:53 PM Age: 72 yrs Gender: Female Patient Location: [facility] Reason For Study: S/P TAVR (transcathete r aortic valve replacement) Ordering Physician: DAGMAR KENDRICK Referring Physician: DAGMAR KENDRICK Performed By: AT BSA: 2.2 m2 Height: 62 in Weight: 272 lb HR: 64 BP: 136/68 mmHg Procedure Complete Echo Adult. Definity ([facility][id number]) given intravenously. Interpretation Summary The [...] Procedure Note Dagmar Kendrick MD - 04/22/2022 [id number]^AROLDO^DAGMAR^[place] [address] Name: IRVIN HOFFMAN : 1950 Study Date: 04/22/2022 02:53 PM Age: 72 yrs Gender: Female Patient Location: [facility] Reason For Study: S/P TAVR (transcathete r aortic valve replacement) Ordering Physician: DAGMAR KENDRICK Referring Physician: DAGMAR KENDRICK Performed By: AT BSA: 2.2 m2 Height: 62 in Weight: 272 lb HR: 64 BP: 136/68 mmHg Procedure Complete Echo Adult. Definity ([facility] #[id number]) given intravenously. Interpretation Summary The [...] documented in this encounter Visit Diagnoses Diagnosis S/P TAVR (transcatheter aortic valve rep lacement) documented in this encounter Administered Medications Inactive Administered Medications - up to 3 most recent administrations Medication Order MAR Action Action Date Dose Rate Site perflutren lipid microsphere Given 04/22/2022 3:30 PM CDT 2 mLs (DEFINITY) injection SUSP 2 mL 2 mL, Intravenous, ONCE, On Wed04/22/22 at 1530, For 1 dose, LOT [id number] documented in this encounter Care Teams Hospice Coordinator Relationship Specialty Start Date End Date Raghu Bae PCP - General Emergency Medicine 04/22/22 MD [facility] [address] [place] [address] Dagmar Kendrick MD Assigned Heart and 03/21/22 04/24/[address], Vascular Provider [address] [place] [address] documented as of this encounter
--- OUTSIDE RECORDS SUMMARY | 2022-07-02 13:35 | XMS_ITS | Encounter Summary ---
:1950 Author Organization [place] Address [address] [place] [address] Care Team Providers Name Role Phone Elyse Paredes MD Primary Care Provider Encounter Details Date Type Department Care Team Description 01/02/[address] [facility] Dagmar Kang MD [address], [address] [place] [address] [place] [phone] (Wo rk) Social History Tobacco Use Types [...] NEEDLE UF MINI 31 Ndle GAUGE X 3/16 NDLE] USE 4-5 PER DAY UTD famotidine [...] on filedocumented in this encounter Care Teams Escort Vehicle Driver Relationship Specialty Start Date End Date Elyse Paredes MD PCP - General Family Practice 12/22/13 04/21/22 [address] [place] [address] documented as of this encounter
--- OUTSIDE RECORDS SUMMARY | 2022-07-02 13:35 | XMS_ITS | Encounter Summary ---
:1950 Author Organization [facility] Address [address] [place] [address] Care Team Providers Name Role Phone Elyse Paredes MD Primary Care Provider Encounter Details Date Type Department Care Team Description 01/02/2021 Hospital Encounter [facility] Dagmar Kang MD [address], [address] [place] [address] [place] [phone] (Wo rk) Social History Tobacco Use Types [...] on filedocumented in this encounter Care Teams Shake Cutter Relationship Specialty Start Date End Date Elyse Paredes MD PCP - General Family Practice 12/22/13 04/21/22 [address] [place] [address] documented as of this encounter
--- OUTSIDE RECORDS SUMMARY | 2022-07-02 13:35 | XMS_ITS | Encounter Summary ---
:1950 Author Organization [facility] Address [address] [place] [address] Care Team Providers Name Role Phone Dagmar Kang MD Unavailable Raghu Bae MD Primary Care Provider [phone] Nicole Salazar APRN [employer] REHANDLER Unavailable Reason for Visit Reason Onset Date Comments Pre-LAAC Imaging 04/23/2022 Encounter Details Date Type Department Care Team Description 04/23/2022 Telephone [facility] Keshia Andrew, Pre-LAAC Imaging Clinic An[facility]bal CAIN [address] [facility] [address] [place] [address] Social History Tobacco Use [...] this encounter Miscellaneous Notes Telephone Encounter - Keshia Andrew RN - 05/05/2022 2:35 PM CDT Phone call to patient to discuss Dr. Martinez's recommendations regarding recent TTE. She states she ishesitant because around the same time as tentative LAAC date, she was hoping to go to [place] for [place] with her friend, as it is a bucket list item for her. She would like to wait til September for her procedure. Will keep her name for future consideration and call patient back in early July to discuss plan moving forward. She is appreciative. She has radio script writer's direct number for further questions or concerns. No further questions at this time. [facility] Telephone Encounter - Keshia Andrew RN - 05/05/2022 9:43 AM CDT ----- Message ----- From: Ankush Martinez MD Sent: 05/05/2022 8:17 AM CDT To: Keshia Andrew RN Sorry for the delay Yes, the mean gradient went up a little bit and the leak that was noted is mild, and the overall function of the valve is still normal and shouldn't be causing symptoms. Thanks Ankush ----- Message ----- From: Keshia Andrew RN Sent: 04/23/2022 2:08 PM CDT To: Ankush Martinez MD ----- Message from Keshia Andrew RN sent at 04/23/2022 2:08 PM CDT ----- Marci Morin is a s/p TAVR patient of yours, 07/06/2017. She had routine annual TTE yesterday and is concerned with her results/ Dr. Kang's recommendations. Patient has chronic CASTRO Dr. Kang feels to be related to obesity/deconditioning, stress test last year negative for ischemia. Can I please ask you to review her echo from yesterday to see if further follow-up is needed before scheduling for LAAC? Thanksmuch. Schmitt Telephone Encounter - Keshia Andrew RN - 04/23/2022 8:25 AM CDT Phone call to patient regarding LAAC procedure. We discussed the need for SDM before scheduling LAACprocedure, as this is an insurance required visit. Bat Boy/Girl will see if Dr. Kang can addend previous documentation and if not, she will be scheduled for SDM appt with Dr. Kang. She verbalized understanding. Patient voices concern over her echo completed yesterday, I had the TAVR a while ago and now there is leaking across my valve. Informed patient radio script writer will follow- up with TAVR team to see if this warrants further follow-up before proceeding with LAAC. Informed her of tentative timeframe of July for procedure with Dr. Martinez. Patient appreciative. Verbalized understanding, no further questions at this time. [facility] ----- Message ----- From: Ankush Martinez MD Sent: 04/23/2022 8:23 AM CDT To: Keshia Andrew RN, * Reviewed CTA from 2017, and anatomy looks suitable for LAAC Ok to schedule Thanks ----- Message ----- From: Nicole Salazar APRN CIG[employer] TOBAC[employer] REHANDLER Sent: 04/22/2022 2:43 PM CDT To: Keshia Andrew RN, MD Cathy Jaimes wants to do watchman with you. Need your approval. Are any imaging tests in past adequate to define anatomy since TAVR in 2017? Keshia-Note CKD and call pt when approved. No restrictions on scheduling except wants Dr. Martinez. documented in this encounter Plan of Treatment Not on filedocumented as of this encounter Visit Diagnoses Not on filedocumented in this encounter Care Teams Printing Machine Operator Tape Rules Relationship Specialty Start Date End Date Raghu Bae PCP - General Emergency Medicine 04/22/22 MD [facility] [address] [place] [address] Dagmar Kang MD Assigned Heart and 03/21/22 04/24/[address] [facility], Vascular Provider [address] [place] [address] Nicole Salazar, Assigned Heart and 04/25/22 BUSINESS OPERATIONS SPECIALIST [facility] Vascular Provider [address] [facility] [address] [place] [address] documented as of this encounter
--- OUTSIDE RECORDS SUMMARY | 2022-07-02 13:35 | XMS_ITS | Encounter Summary ---
:1950 Author Organization [place] Address [address] [place] [address] Care Team Providers Name Role Phone Dagmar Kang MD Unavailable Raghu Bae MD Primary Care Provider [phone] Reason for Visit Reason Comments Follow Up Consultation (Routine: Next available opening) - Pending Review Specialty Diagnoses / Procedures Referred By Contact Refer red To Contact Cardiovascular Disease Diagnoses Persistent atrial fibrillation (H) Dagmar Kang MD [address] [facility], [address] [place] [address] Referral ID Status Reason Start Date Expiration Date Visits V isits Requested Authorized [id number] Pending 03/17/2022 03/17/2023 1 1 Review Encounter Details Date Type Department Care Team Description 04/22/2022 Office Visit [facility], Persistent atrial fibrillation (H) (Primary Dx); [facility] [place] Nicole Ng APRN S/P TAVR (transcatheter aort ic valve replacement); [address] [facility] 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 Chronic diastolic congestive heart failu re (H); [address] [facility] Essential hypertension; [facility] [address] Coronary artery disease involving koi coronary artery of koi heart without [place] [address] [id number] Social History Tobacco Use Types Packs/Day Years [...] Sign Reading Time Taken Comments Blood Pressure 124/70 04/22/2022 12:47 PM CDT Pulse 86 04/22/2022 12:47 PM CDT Temperature - - Respiratory Rate 16 04/22/2022 12:47 PM CDT Oxygen Saturation 95% 04/22/2022 12:47 PM CDT Inhaled Oxygen Concentration - - Weight 125.2 kg (276 lb) 04/22/2022 12:47 PM CDT Height 156 cm (5' 1.42) 04/22/2022 12:47 PM CDT Body Mass Index 51.44 04/22/2022 12:47 PM CDT documented in this encounter Patient Instructions Patient InstructionsNicole Salazar APRN CNP - 04/22/2022 12:50 PM CDT I discussed the watchman procedure today. I will check with Dr. Martinez regarding whether you need an imaging. The watchman is to protect you from stroke risk and get you off warfarin within 2 months of procedure. If you go on to get watchman placement, you will stay on warfarin until 6 weeks post watchman. You will then have a transesophageal echo, you will get a call at home within the week after and will be instructed to stop warfarin and can anticipate that you will switch to aspirin 81 mg 1 tab p.o. daily plus Plavix 75 mg p.o. daily for 4 months. After 4 months, you will stop Plavix and stay on aspirin 81 mg 1 tablet orally every day. The watchman coordinator is Keshia Andrew and her number is [phone]. She will call you afterwe hear back from Dr. Martinez. documented in this encounter Progress Notes Nicole Salazar APRN CNP - 04/22/2022 12:50 PM CDT Images from the original note were not included. Thank you, Dr. Kang, for asking the [facility] team to see Ms. Marci Diaz to evaluate patient for watchman. Assessment/Recommendations Assessment/Plan: Diagnoses and all orders for this visit: Persistent atrial fibrillation (H) and off of amiodarone since post TAVR per patient and not noticedany symptoms of recurrence of atrial fibrillation. S/P TAVR (transcatheter aortic valve replacement) and having echo to follow this appointment due to dyspnea on exertion worsened over the last few months. Chronic diastolic congestive heart failure (H) and no signs or symptoms of decompensated heart failure. Essential hypertension and blood pressure at goal. Coronary artery disease involving koi coronary artery of koi heart without angina pectoris andhas had stent in the past and on daily aspirin. [id number] score of 5 with one-point each for gender, age 65-74, CAD, hypertension and heart failure. HAS bled score of 3 with one-point each for advanced age, daily aspirin need and easy bruising. Marci Diaz has been advised to stay on chronic warfarin due to high risk for stroke with history of atrial fib. Marci Diaz has heart failure [place] class 3. I reviewed watchman protocol with CT to define anatomy if previous imaging not adequate, with need for renal protocol if done due to CKD, watchman procedure itself and post REINALDO. I reviewed anticoagulation protocol with staying on warfarin throughout REINALDO for anatomy and watchman procedure as well as 45 days after. If post REINALDO is negative, Marci Diaz will get a call and then will stay on aspirin 81 mg plus add Plavix 75 mg by mouth daily. Marci Diaz will stay on these 2 medications for 4 months and then will stop plavix and continue aspirin 81 mg orally every day. I discussed that there is no further testing beyond post REINALDO. After discuss ion, Marci Diaz wants to proceed with watchman placement. She wants to do watchman placement with Dr. Martinez as he did her TAVR. She is not a candidate for long-term anticoagulation due to needing NSAIDs for arthritic treatment and has bled score of 3. The patient is a good candidate for proceeding with left atrial appendage screening and implant. All questions were answered to her satisfaction Follow up in clinic as planned with watchman placement. History of Present Illness/Subjective Marci Diaz is a very pleasant 72 year old female who comes in today for EP consult for watchman device. Marci Diaz has a known history of coronary artery disease and aortic valve stenosis, status post drug-eluting stent placement to the mid LAD in 2017 followed by TAVR, persistent atrial fibrillation resolved following amiodarone and cardioversion now on beta-elpidio and warfarin anticoagulation, hypercholesterolemia, and obesity. Marci reports that she has been off of amiodarone since about a year after her TAVR placement. She is not aware of symptoms of recurrence of A. fib since then. She is complaining of easy bruising with minimal contact with objects. Marci is concerned about use of general anesthesia with watchman device as she developed pneumonia after a knee replacement. I discussed that anesthesia time was longer. She did not have pneumonia after second knee replacement. She did not have any problems with anesthesia with TAVR placement in 2017.She has done a lot of Internet reading about the watchman prior to this consult. She has a lot of questions. Marci had significant improvement in muscle aching and bone pain after coming off Rosvastatin. I have marked her as intolerant to this medication. She has been reluctant to do trial of atorvastatin butI encouraged her to move ahead she is not a candidate for injectable cholesterol-lowering medicationunless she fails statins. Marci tells me that she wants to get the watchman device as she cannot have nonsteroidals unless sheis off the warfarin. I discussed that she is not a good candidate for nonsteroidals due to chronic kidney disease with baseline creatinine 1.3-1.5. This was discussed recently by her internal medicine doctor so maybe they were considering some other medication besides NSAIDs. Warfarin has a fair amount of drug interactions. Cardiographics (reviewed): Echo today still pending December 2020 nuclear stress test showed: Result Text ??? There is no prior study for comparison. ??? Pharmacological regadenoson stress ECG is negative for inducible myocardial ischemia. ??? Pharmacologic Regadenonson nuclear stress test is negative for inducible myocardial ischemia or infarction. There are reduced radiotracer in anterior wall from mid to distal segments on both stressand rest images indicating most likely breast attenuation, less likely previous myocardial infarction because the patient's left ventricular wall motion is normal. ??? Normal left ventricular size, wall thickness and wall motion. The calculated left ventricular ejection fraction is 70%. ??? The patient is at a low risk of future cardiac ischemic events. March 2020 echo showed: Narrative & Impression ?? Normal left ventricular size and systolic function.The calculated left ventricular ejection fraction is 69%. This represents a normal ejection fraction. Mild concentric hypertrophy noted. ?? The left ventricular wall motion is normal. ?? Normal right ventricular size and systolic function. ?? Aortic Valve: 23 mm Rigo 3 bioprosthetic valve present (mean gradient: 20 mm Hg, peak oniel: 2.7 m/sec). No aortic insufficiency. ?? When compared to the previous study dated 07/13/2018, no significant change. Problem List: Patient Active Problem List Diagnosis ??? HLD (hyperlipidemia) ??? CASTRO (dyspnea on exertion) ??? Coronary artery disease involving koi coronary artery of koi heart, angina presence unspecified ??? DEDE on CPAP ??? Type 2 diabetes mellitus without complication, with long-term current use of insulin (H) ??? Essential hypertension ??? Calculus of kidney ??? Urinary tract stones ??? Chronic diastolic congestive heart failure (H) ??? S/P TAVR (transcatheter aortic valve replacement) ??? Hyperglycemia ??? Persistent atrial fibrillation (H) ??? Morbid obesity with BMI of 50.0-59.9, adult (H) ??? Chronic kidney disease, stage 3 (H) Revi e Physical Examination Review of Systems w [facility] There were no vitals taken for this visit. There is no height or weight on file to calculate BMI. Wt Readings from Last 3 Encounters: 03/17/22 123.4 kg (272 lb) 12/26/20 120.1 kg (264 lb 12.8 oz) 12/29/19 128.8 kg (284 lb) General Appearance: Alert, well-appearing and in no acute distress. HEENT: Atraumatic, normocephalic. No scleral icterus, normal conjunctivae; mucous membranes pink andmoist. Chest: Chest symmetric, spine straight. Lungs: Respirations unlabored. Cardiovascular: Normal JVD. Extremities: No cyanosis or clubbing Musculoskeletal: Moves all extremities Skin: Warm, dry, intact. Neurologic: Mood and affect are appropriate, alert and oriented to person, place, time, and situation ROS: 10 point ROS neg other than the symptoms noted above in the HPI. Medical History Surgical History Family History Social History Past Medical History: Diagnosis Date ??? Bicuspid aortic valve 2016 ??? Cancer (H) 2017 breast cancer invasive ductal carcinoma ??? CHF (congestive heart failure) (H) 2016 ??? Coronary artery disease 05/2017 JEFFERSON,LAD (2 stents) ??? Depression 2013 ??? Diabetes mellitus (H) 1994 insulin ??? DJD (degenerative joint disease) ??? Dyspnea 2016 ??? Hyperlipidemia 1994 ??? Hypertension 1994 ??? Kidney stones 2016 ??? Morbid obesity (H) ??? Nephrolithiasis 2016 renal cyst ??? DEDE on CPAP 2008 ??? Persistent atrial fibrillation (H) 2016 ??? Severe aortic stenosis 2016 ??? Thyroid cyst ??? Tooth abscess 2016 Past Surgical History: Procedure Laterality Date ??? CARDIAC CATHETERIZATION 05/12/2017 ??? CARDIOVERSION 2017 ??? COLONOSCOPY N/A 06/27/2019 Procedure: COLONOSCOPY; Surgeon: Jeni Barrera MD; Location: [facility] OR; Service: Gastroenterology ??? COLONOSCOPY N/A 10/10/2019 Procedure: COLONOSCOPY; Surgeon: Falguni Mccain MD; Location: [facility] Main OR; Service: Gastroenterology ??? CV CORONARY ANGIOGRAM N/A 05/12/2017 Procedure: Coronary Angiogram; Surgeon: Ankush Martinez MD; Location: [facility] [place]; Service: ??? CV TRANSCATHETER AORTIC VAVLE REPLACEMENT - FEMORAL APPROACH N/A 07/06/2017 Procedure: Transfemoral Transcatheter Aortic Valve Replacement; Surgeon: Ankush Martinez MD; Location: [facility] [place]; Service: ??? LUMPECTOMY BREAST Left 2019 completed radiation therapy ??? TOTAL KNEE ARTHROPLASTY Bilateral Family History Problem Relation Age of Onset ??? Diabetes Father ??? Heart Disease Father ??? Esophageal Cancer Brother ??? Urolithiasis No family hx of ??? Clotting Disorder No family hx of ??? Gout No family hx of History Smoking Status ??? Never Smoker Smokeless Tobacco ??? Never Used Social History Substance and Sexual Activity Alcohol use: No Medications Allergies Current Outpatient Medications Medication Sig Dispense Refill ??? acetaminophen (TYLENOL) 650 MG CR tablet Take 1,300 mg by mouth as needed ??? allopurinoL (ZYLOPRIM) 100 MG tablet [ALLOPURINOL (ZYLOPRIM) 100 MG TABLET] Take 1 tablet by mouth daily. ??? amoxicillin (AMOXIL) 500 MG tablet [AMOXICILLIN (AMOXIL) 500 MG TABLET] Take 2,000 mg by mouth as needed (prior to dental work). ??? anastrozole (ARIMIDEX) 1 mg tablet [ANASTROZOLE (ARIMIDEX) 1 MG TABLET] Take 1 mg by mouth daily. (Patient not taking: Reported on 03/17/2022) ??? aspirin 81 MG EC tablet [ASPIRIN 81 MG EC TABLET] Take 1 tablet (81 mg total) by mouth daily. 0 ??? atorvastatin (LIPITOR) 10 MG tablet Take 1 tablet (10 mg) by mouth every other day 45 tablet 1 ??? BD INSULIN PEN NEEDLE UF MINI 31 gauge x 10/15 Ndle [BD INSULIN PEN NEEDLE UF MINI 31 GAUGE X 10/15 NDLE] USE 4-5 PER DAY UTD 0 ??? BD INSULIN PEN NEEDLE UF SHORT 31 gauge x 12/15 Ndle [BD INSULIN PEN NEEDLE UF SHORT 31 GAUGE X 12/15 NDLE] USE WITH TOUJEO AND VICTOZA BID 3 ??? celecoxib (CELEBREX) 200 MG capsule [CELECOXIB (CELEBREX) 200 MG CAPSULE] Take 200 mg by mouth daily. (Patient not taking: Reported on 03/17/2022) ??? chlorthalidone (HYGROTEN) 25 MG tablet [CHLORTHALIDONE (HYGROTEN) 25 MG TABLET] Take 1 tablet (25 mg total) by mouth daily. (Patient not taking: Reported on 03/17/2022) 90 tablet 2 ??? cholecalciferol 25 MCG (1000 UT) TABS Take 1,000 Units by mouth daily ??? dulaglutide 0.75 mg/0.5 mL PnIj [DULAGLUTIDE 0.75 MG/0.5 ML PNIJ] Inject 1.5 mg under the skin once a week. (Patient not taking: Reported on 03/17/2022) ??? ezetimibe (ZETIA) 10 MG tablet Take 1 tablet (10 mg) by mouth daily 90 tablet 1 ??? famotidine (FOR PEPCID) 10 MG tablet [...] by mouth daily. 135 tablet 2 ??? methocarbamoL (ROBAXIN) 500 MG tablet [METHOCARBAMOL (ROBAXIN) 500 MG TABLET] Take 1 tablet (500mg total) by mouth 2 (two) times a day as needed (muscle spasm). (Patient not taking: Reported on 03/17/2022) 14 tablet 0 ??? metoprolol succinate (TOPROL-XL) 25 MG [METOPROLOL SUCCINATE (TOPROL-XL) 25 MG] TAKE 1 TABLET(25MG) BY MOUTH DAILY 90 tablet 0 ??? oxyCODONE (ROXICODONE) 5 MG immediate release tablet [OXYCODONE (ROXICODONE) 5 MG IMMEDIATE RELEASE TABLET] Take 1 tablet (5 mg total) by mouth every 8 (eight) hours as needed (breakthrough pain). (Patient not taking: Reported on 03/17/2022) 6 tablet 0 ??? semaglutide (OZEMPIC) 0.25 mg or 0.5 mg(2 mg/1.5 mL) PnIj [SEMAGLUTIDE (OZEMPIC) 0.25 MG OR 0.5 MG(2 MG/1.5 ML) PNIJ] as directed ??? sertraline (ZOLOFT) 100 MG tablet [SERTRALINE (ZOLOFT) 100 MG TABLET] Take 50 mg by mouth daily.(Patient not taking: Reported on 03/17/2022) ??? tamoxifen (NOLVADEX) 20 MG tablet [TAMOXIFEN (NOLVADEX) 20 MG TABLET] Take 1 tablet by mouth daily. ??? venlafaxine (EFFEXOR-XR) 37.5 MG 24 hr capsule Take 37.5 mg by mouth daily ??? warfarin (COUMADIN/JANTOVEN) 2.5 MG tablet [WARFARIN (COUMADIN/JANTOVEN) 2.5 MG TABLET] TAKE 1 TABLET BY MOUTH EVERY DAY (Patient not taking: Reported on 03/17/2022) 90 tablet 0 ??? warfarin (COUMADIN/JANTOVEN) 5 MG tablet [WARFARIN (COUMADIN/JANTOVEN) 5 MG TABLET] TAKE 1 TABLET BY MOUTH DAILY. ADJUST DOSE BASED ON INR RESULTS DIRECTED (Patient not taking: Reported on 03/17/2022) 30 tablet 0 ??? warfarin ANTICOAGULANT (COUMADIN) 4 MG tablet Take 4 mg by mouth daily Allergies Allergen Reactions ??? Lisinopril Cough ??? Metformin Nausea and Vomiting ??? Erythromycin Base [Erythromycin] Rash ??? Ilosone [Erythromycin] Rash Medical, surgical, family, social history, and medications were all reviewed and updated as necessary. Lab Results Chemistry/lipid CBC Cardiac Enzymes/BNP/TSH/INR Recent Labs Lab Test 10/04/19 1502 CHOL 159 HDL 53 LDL 70 TRIG 182* Recent Labs Lab Test 10/04/19 1502 06/14/19 1555 03/23/18 0932 LDL 70 70 75 Recent Labs Lab Test 04/28/21 1443 NA 141 POTASSIUM 4.7 CHLORIDE 103 CO2 25 GLC 149* BUN 16 CR 1.35* GFRESTIMATED 40* PHILIP 9.2 Recent Labs Lab Test 04/28/21 1443 06/05/20 1053 10/04/19 1502 CR 1.35* 1.56* 1.65* No results for input(s): A1C in the last 83156 hours. Recent Labs Lab Test 06/05/20 1053 WBC 7.6 HGB 13.5 HCT 38.5 MCV 94 PLT 190 Recent Labs Lab Test 06/05/20 1053 08/05/17 1046 HGB 13.5 12.6 Recent Labs Lab Test 06/05/20 1053 TROPONINI 0.02 Recent Labs Lab Test 10/04/19 1502 BNP 12 Recent Labs Lab Test 03/23/18 0932 TSH 5.91* Recent Labs Lab Test 06/05/20 1053 06/27/19 0926 11/21/18 0000 INR 2.10* 1.14* 2.9 Total Time- 45 minutes spent on date of encounter doing chart review, history and exam, documentation and further activities as noted above. This note has been dictated using voice recognition software. Any grammatical, typographical, or context distortions are unintentional and inherent to the software. documented in this encounter Plan of Treatment Not on filedocumented as of this encounter Visit Diagnoses Diagnosis Persistent atrial fibrillation (H) - [facility] Atrial fibrillation S/P TAVR (transcatheter aortic valve rep lacement) Chronic diastolic congestive heart failu re (H) Chronic diastolic heart failure Essential hypertension Unspecified essential hypertension Coronary artery disease involving koi coronary artery of koi heart without angina pectoris documented in this encounter Care Teams Web Operations Specialist Relationship Specialty Start Date End Date Raghu Bae PCP - General Emergency Medicine 04/22/[address] [facility] [address] [place] [address] Dagmar Kang MD Assigned Heart and 03/21/22 04/24/22 [address] [facility], Vascular Provider [address] [place] [address] documented as of this encounter
--- OUTSIDE RECORDS SUMMARY | 2022-07-02 13:35 | XMS_ITS | Encounter Summary ---
:1950 Author Organization [place] Address [address] [place] [address] Care Team Providers Name Role Phone Raghu Bae MD Primary Care Provider Nicole Salazar APRN REHABILITATION MEDICINE PHYSICIAN Unavailable [phone] Reason for Visit Reason Comments Lab Only Encounter Details Date Type Department Care Team Description 06/02/2022 Lab [facility] Heart Savi nary artery disease involving yuhaaviatam coronary artery of yuhaaviatam heart, unspecified whether angina present; Care [place] Hypercholesterolemia [address] [facility] [address] [place] [address] [facility] [phone] Social History Tobacco Use Types Packs/Day Years [...] Name Priority Date/Time Associated Diagnosis Comme nts LIPID REFLEX TO Routine 06/02/2022 11:35 AM Coronary artery Re sults for this DIRECT LDL PANEL CDT disease involving proced ure are in yuhaaviatam coronary the results artery of yuhaaviatam section. heart, unspecified whether angina present Hypercholesterolemia documented in this encounter Results (ABNORMAL) Lipid panel reflex to direct LDL Fasting (06/02/2022 11:35 AM CDT) [facility] gist Method Time Signature Cholesterol 152 <=199 06/02/2022 [facility] mg/dL 12:27 PM CDT Triglycerides 249 (H) <=149 06/02/2022 [facility] mg/dL 12:27 PM CDT Direct Measure 47 (L) >=50 06/02/2022 [facility] HDL mg/dL 12:27 PM CDT Comment: HDL Cholesterol Reference Range: 0-2 years: No reference ranges established for ok ents under 2 years old ??at [facility] for lipid analytes. 2-8 years: Greater than 45 mg/dL 18 years and older: Female: Greater than or equal to 50 mg/d L Male: ?? Greater than or equal to 40 mg/ dL LDL Cholesterol Calculated 55 <=129 mg/dL 06/02/20 12:[address] [facility] Patient Fasting > 8hrs? Yes 06/02/2022 12:[address] [facility] Specimen Anatomical Collection Method / Collection Time Recei gil Time (Source) Location / Volume Laterality Blood STRUCTURE OF RIGHT Venipuncture / 06/02/2022 11:35 08/2021 UPPER LIMB / Unknown AM CDT 12:02 PM CDT Unknown Dagmar Kang MD LAB - BLOOD ORDERABLES Performing Organization Address City/State/ZIP Code Phon e Number [facility] [place] [address] [place] [address] documented in this encounter Visit Diagnoses Diagnosis Coronary artery disease involving yuhaaviatam coronary artery of yuhaaviatam heart, unspecified whether angina present Hypercholesterolemia Pure hypercholesterolemia documented in this encounter Care Teams Cultural Historian Relationship Specialty Start Date End Date Raghu Bae PCP - General Emergency Medicine 04/22/22 MD [place] [facility] [address] [place] [address] Nicole Salazar Assigned Heart and 04/25/22 GAS DISTRIBUTION SUPERVISOR REHABILITATION MEDICINE PHYSICIAN Vascular Provider [address] [facility] [address] [place] [address] documented as of this encounter
--- OUTSIDE RECORDS SUMMARY | 2022-07-02 13:35 | XMS_ITS | Encounter Summary ---
:1950 Author Organization [facility] Address [address] [place] [address] Care Team Providers Name Role Phone Dagmar Kang MD Unavailable Elyse Paredes MD Primary Care Provider Dagmar Kang MD Unavailable Raghu Bae MD Primary Care Provider [phone] Nicole Salazar APRN CEMENT DESPATCH OPERATOR Unavailable [phone] Encounter Details Date Type Department Care Team Description 01/02/2021 Records - [facility] HE CONVERSION Scan, Non-Provider Social History Tobacco Use Types Packs/Day Years Used Date Smoking Tobacco: Never Assessed Sex Assigned at Date Recorded Not on file documented as of this encounter Plan of Treatment Not on filedocumented as of this encounter Visit Diagnoses Not on filedocumented in this encounter Care Teams Information Receptionist Relationship Specialty Start Date End Date Elyse Paredes MD PCP - General Family Practice 12/22/13 04/21/22 [address] [place] [address] Raghu Bae PCP - General Emergency Medicine 04/22/22 MD [place] [facility] [address] [place] [address] Dagmar Kang MD Assigned Heart and 02/14/21 02/27/[address], Vascular Provider [address] [place] [address] Dagmar Kang MD Assigned Heart and 03/21/22 04/24/22 [address] [facility] Vascular Provider [address] [place], [place] [id number] Nicole Salazar, Assigned Heart and 04/25/22 CHIN STRAP CUTTER CEMENT DESPATCH OPERATOR Vascular Provider [address] [facility] [address] [place], [place] [id number] documented as of this encounter
--- OUTSIDE RECORDS SUMMARY | 2022-07-02 13:35 | XMS_ITS | Encounter Summary ---
:1950 Author Organization [facility] Address [address] [place] [address] Care Team Providers Name Role Phone Dagmar Kang MD Unavailable Raghu Bae MD Primary Care Provider Encounter Details Date Type Department Care Team Description 04/22/2022 Travel Social History Tobacco Use Types Packs/Day [...] on filedocumented in this encounter Care Teams Journalists And Other Writers Relationship Specialty Start Date End Date Raghu Bae PCP - General Emergency Medicine 04/22/22 MD [place] [facility] [address] [place] [address] Dagmar Kang MD Assigned Heart and 03/21/22 04/24/22 [address] [facility], Vascular Provider [address] [place] [address] documented as of this encounter
--- OUTSIDE RECORDS SUMMARY | 2022-07-02 13:35 | XMS_ITS | Encounter Summary ---
:1950 Author Organization [place] Address [address] [place] [address] Care Team Providers Name Role Phone Raghu Bae MD Primary Care Provider [phone] Nicole Salazar APRN UI ARCHITECT Unavailable [phone] Reason for Visit Reason Onset Date Comments LAAC Scheduling 06/24/2022 Encounter Details Date Type Department Care Team Description 06/24/2022 Telephone [facility] Heart Natalia Vee R N LAAC Scheduling Clinic [address] [place] [address] Social History Tobacco Use [...] this encounter Miscellaneous Notes Telephone Encounter - Natalia Vee RN - 06/24/2022 12:48 PM CST Call placed to pt to follow up if she would like to proceed with LAAC procedure. She stated she has an appointment with her primary doctor in [place] on 07/09 and said that she would like to talk to him and then call us back to let us know. She understands that she would also need to have an SDM appointment with a reforestation worker prior to her LAAC. She would like to hold her 09/03 date and will call to confirm this after her appointment. Patient had no further questions and verbalized understanding of process. Gave direct number for call back. -SC ONTOLOGICAL HELPER documented in this encounter Plan of Treatment Not on filedocumented as of this encounter Visit Diagnoses Not on filedocumented in this encounter Care Teams Credit Card Control Clerk Relationship Specialty Start Date End Date Raghu Bae PCP - General Emergency Medicine 04/22/22 MD [facility] [address] [place] [address] Nicole Salazar, Assigned Heart and 04/25/22 LENS INSERTER UI ARCHITECT Vascular Provider [address] [facility] [address] [place] [address] documented as of this encounter
--- OUTSIDE RECORDS SUMMARY | 2022-07-02 13:35 | XMS_ITS | Clinical Summary ---
:1950 Author Organization [place] Address [address] [place] [address] Care Team Providers Name Role Phone Raghu Bae MD Primary Care Provider [phone] Nicole Salazar APRN HEALTH AND SAFETY ADVISOR Unavailable [phone] Allergies Active Allergy Reactions Severity Noted Date Comments Erythromycin Rash Low 07/31/2013 Erythromycin Rash Low 06/20/2019 Lisinopril Cough 04/16/2017 Metformin Nausea and Vomiting 06/07/2017 Rosuvastatin 04/22/2022 Severe muscle a nd bone pain Medications Medication Sig Dispensed Refills Start Date End Date Status LANTUS SOLOSTAR 100 [LANTUS 0 06/28/2015 Active unit/mL (3 mL) pen SOLOSTAR 100 UNIT/ML (3 ML) PEN] 60 Units at bedtime. Last night 28u BD INSULIN PEN NEEDLE UF [BD INSULIN 0 07/25/2017 Active MINI 31 gauge x /16 Ndle PEN NEEDLE UF MINI 31 GAUGE X 3/16 NDLE] USE 4-5 PER DAY UTD insulin lispro (HUMALOG) [INSULIN 0 09/17/2017 Active 100 unit/mL injection LISPRO (HUMALOG) 100 UNIT/ML INJECTION] Inject 6-10 Units under the skin 3 (three) times a day before meals. amoxicillin (AMOXIL) 500 [AMOXICILLIN 0 08/08/2018 Active MG tablet (AMOXIL) 500 MG TABLET] Take 2,000 mg by mouth as needed (prior to dental work). famotidine (FOR PEPCID) 10 [FAMOTIDINE 0 08/08/2018 Active MG tablet (FOR PEPCID) 10 MG TABLET] Take 10 mg by mouth as needed. aspirin 81 MG EC [ASPIRIN 81 MG 0 08/08/2018 Active tabletIndications: S/P EC TABLET] TAVR (transcatheter aortic Take 1 tablet valve replacement) (81 mg total) by mouth daily. semaglutide (OZEMPIC) 0.25 [SEMAGLUTIDE 0 10/06/2019 Active mg or 0.5 mg(2 mg/1.5 mL) (OZEMPIC) 0.25 PnIj MG OR 0.5 MG(2 MG/1.5 ML) PNIJ] as directed losartan (COZAAR) 50 MG [LOSARTAN 135 tablet 2 02/14/2020 Active tabletIndications: Benign (COZAAR) 50 MG essential hypertension TABLET] Take 1.5 tablets (75 mg total) by mouth daily. metoprolol succinate [METOPROLOL 90 tablet 0 11/18/2020 Active (TOPROL-XL) 25 SUCCINATE MGIndications: S/P TAVR (TOPROL-XL) 25 (transcatheter aortic MG] TAKE 1 valve replacement) TABLET(25 MG) BY MOUTH DAILY venlafaxine (EFFEXOR-XR) Take 37.5 mg 0 10/16/2020 Active 37.5 MG 24 hr capsule by mouth daily allopurinoL (ZYLOPRIM) 100 [ALLOPURINOL 0 12/26/2020 Active MG tablet (ZYLOPRIM) 100 MG TABLET] Take 1 tablet by mouth daily. tamoxifen (NOLVADEX) 20 MG [TAMOXIFEN 0 12/26/2020 Active tablet (NOLVADEX) 20 MG TABLET] Take 1 tablet by mouth daily. acetaminophen (TYLENOL) Take 1,300 mg 0 Active 650 MG CR tablet by mouth as needed cholecalciferol 25 MCG Take 1,000 0 Active (1000 UT) TABS Units by mouth daily warfarin ANTICOAGULANT Take 4 mg by 0 Active (COUMADIN) 4 MG tablet mouth daily atorvastatin (LIPITOR) 10 Take 1 tablet 45 tablet 1 04/03/2022 Active MG tabletIndications: (10 mg) by Coronary artery disease mouth every involving [place] coronary other day artery of [place] heart, unspecified whether angina present, Hypercholesterolemia ezetimibe (ZETIA) 10 MG Take 1 tablet 90 tablet 1 04/03/2022 Active tabletIndications: (10 mg) by Coronary artery disease mouth daily involving [place] coronary artery of [place] heart, unspecified whether angina present, Hypercholesterolemia Active Problems Problem Noted Date Chronic kidney disease, stage 3 12/26/2020 Morbid obesity with BMI of 50.0-59.9, adult 07/29/2017 Persistent atrial fibrillation 07/23/2017 Overview: Postop TAVR Paroxysmal and then Persistent. Failed D CCV without antiarrhythmic. Convertedwith loading of amio [id number] score of 5 and on warfarin S/P TAVR (transcatheter aortic valve replacement) 11/2016 Hyperglycemia 07/06/2017 Calculus of kidney 06/07/2017 Urinary tract stones 06/07/2017 DEDE on CPAP 05/27/2017 Type 2 diabetes mellitus without complication, with lo ng-term current use 05/27/2017 of insulin Essential hypertension 05/27/2017 HLD (hyperlipidemia) 08/14/2015 CASTRO (dyspnea on exertion) Coronary artery disease involving [place] coronary maurice ry of [place] heart, angina presence unspecified Overview: Replacing diagnoses that were inactivate d after the 05/02/2021 regulatory import. Chronic diastolic congestive heart failure Encounters Date Type Specialty Care Team Description 06/24/2022 Telephone Cardiology Natalia Vee LAAC Schedul ing RN 06/02/2022 Lab Cardiology Coronary artery disease involving [place] coronary artery of [place] heart, unspecified whether angina present; Hypercholestero lemia 06/02/2022 Travel 04/23/2022 Telephone Cardiology Arlen Andrew RN 04/23/2022 Orders Only Cardiology Gloria Pérez Chronic diasto lic congestive heart failure ( H) (Primary Dx) 04/22/2022 Hospital Encounter Cardiology Dagmar Kendrick MD S/P T AVR (transcatheter aortic valve re placement) 04/22/2022 Office Visit Cardiology Marie, Persistent atri al fibrillation (H) (Primary Dx); Nicole Ng APRN S/P TAVR (bentley scatheter aortic valve replacement); HEALTH AND SAFETY ADVISOR Chronic diastol ic congestive heart failure (H); Essential hyper tension; Coronary artery disease involving [place] coronary artery of [place] heart without angina pectoris 04/22/2022 Travel 04/20/2022 Travel 04/02/2022 Telephone Cardiology Dagmar Kendrick MD Results (2 week call abck) from Last 3 Months Immunizations Name Administration Dates Next Due COVID-19 Vaccine 18+ (Moderna) 05/26/2021, 10/25/2020, 09/27 COVID-19 Vaccine Bivalent Booster 18+ 04/10/2022 (Moderna) Flu, Unspecified 05/21/2017 Family History Medical History Relation Comments Esophageal Cancer Brother Diabetes Father Heart Disease Father Clotting Disorder No family hx of Gout No family hx of Urolithiasis No family hx of Relation Status Comments Brother Father Mother Social History Tobacco Use Types Packs/Day Years [...] was confirmed or suspected to have Coronavirus/COVID-19? 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 Respiratory Rate 16 04/22/2022 12:47 PM CDT Oxygen Saturation 95% 04/22/2022 12:47 PM CDT Inhaled Oxygen Concentration - - Weight 125.2 kg (276 lb) 04/22/2022 12:47 PM CDT Height 156 cm (5' 1.42) 04/22/2022 12:47 PM CDT Body Mass Index 51.44 04/22/2022 12:47 PM CDT Plan of Treatment Health Maintenance Due Date Last Done Comments ADVANCE CARE PLANNING 1950 ANNUAL REVIEW OF HM ORDERS 1950 CT COLONOGRAPHY 1950 DEXA 1950 DIABETIC FOOT EXAM 1950 EYE EXAM 1950 FIT-DNA (Cologuard) 1952 FIT 1952 FLEX SIG 1950 HF ACTION PLAN 1952 MAMMO SCREENING 1950 MICROALBUMIN 1950 URINALYSIS 1951 COLONOSCOPY 1962 COLORECTAL CANCER SCREENING 1962 HEPATITIS C SCREENING 1970 A1C 07/10/2010 01/08/2010 FALL RISK ASSESSMENT 2017 MEDICARE ANNUAL WELLNESS 2017 VISIT CBC 08/05/2018 08/05/2017 HEMOGLOBIN 06/05/2021 06/05/2020, 08/05/2017 PHQ-2 (once per calendar 08/02/2021 year) BMP 10/26/2021 04/28/2021, 06/05/2020, 10/04/2019, Additional history exists ALT 04/28/2022 04/28/2021, 10/04/2019, 06/14/2019, Additional history exists DTAP/TDAP/TD IMMUNIZATION 08/08/2022 08/08/2012, 11/01/2003 , (4 - Td or Tdap) 12/06/1992 LIPID 06/02/2023 06/02/2022, 10/04/2019, 06/14/2019, Additional history exists TSH W/FREE T4 REFLEX Completed 03/23/2018, 03/23/2018, 10/27/2017 Pneumococcal Vaccine: 65+ Completed 04/13/2019, 03/23/2018 , Years 07/30/2011 ZOSTER IMMUNIZATION Completed 06/08/2019, 01/26/2019, 07/24/2015 COVID-19 Vaccine Completed 04/10/2022, 11/19/2021, 05/26/2021, Additional history exists INFLUENZA VACCINE Completed 04/27/2022, 04/28/2021, 05/01/2020, Additional history exists IPV IMMUNIZATION Aged Out No longer eligi ble based on patient 's age to complete this topic MENINGITIS IMMUNIZATION Aged Out No longe r eligible based on patient 's age to complete this topic Medical Devices Implanted 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 Laser Leveling Device Shelf Model / Identifier Expiration Serial / Date Lot Stent Synergy Mr [id number] Stent Drug N/A: [place] 03/25/2018 [id number] / Implanted: Qty: 1 on 05/12/2017 [employer] / ([place]) [id number] Valve [id number] [id number] Valve N/A: BUSTOS 02/25/2019 [id number] / Implanted: Qty: 1 on 07/06/2017 [employer] / [id number] Procedures Procedure Name Priority Date/Time Associated Diagnosis Comme nts LIPID REFLEX TO Routine 06/02/2022 11:35 AM Coronary artery Re sults for this DIRECT LDL PANEL CDT disease involving proced ure are in [place] coronary the results artery of [place] section. heart, unspecified whether angina present Hypercholesterolemia ECHO COMPLETE WITH Routine 04/22/2022 3:50 PM S/P TAVR Res ults for this CONTRAST CDT (transcatheter procedure are in aortic valve the results replacement) section. from Last 3 Months Results (ABNORMAL) Lipid panel reflex to direct LDL Fasting (06/02/2022 11:35 AM CDT) [facility] gist Method Time Signature Cholesterol 152 <=199 06/02/2022 [facility] mg/dL 12:27 PM CDT Triglycerides 249 (H) <=149 06/02/2022 [facility] mg/dL 12:27 PM CDT Direct Measure 47 (L) >=50 06/02/2022 [facility] HDL mg/dL 12:27 PM CDT Comment: HDL Cholesterol Reference Range: 0-2 years: No reference ranges established for ok ents under 2 years old ??at [facility] for lipid analytes. 2-8 years: Greater than 45 mg/dL 18 years and older: Female: Greater than or equal to 50 mg/d L Male: ?? Greater than or equal to 40 mg/ dL LDL Cholesterol Calculated 55 <=129 mg/dL 06/02/20 12:27 PM CDT [facility] Patient Fasting > 8hrs? Yes 06/02/2022 12:27 PM CDT [facility] Specimen Anatomical Collection Method / Collection Time Recei gil Time (Source) Location / Volume Laterality Blood STRUCTURE OF RIGHT Venipuncture / 06/02/2022 11:35 08/2021 UPPER LIMB / Unknown AM CDT 12:02 PM CDT Unknown Dagmar Kendrick MD LAB - BLOOD ORDERABLES Performing Organization Address City/State/ZIP Code Phon e Number [facility] [place] [address] Cheri Dubois ECHO COMPLETE WITH CONTRAST (04/22/2022 3:50 PM CDT) P athologist Signature LVEF 60-65% CARDIOLOGY RESULTS Anatomical Region Laterality Modality Ultrasound, Ultrasou nd Specimen (Source) Anatomical Collection Method Collection Time Re ceived Time Location / / Volume Laterality 04/22/2022 2:53 PM CDT Narrative 04/22/2022 4:09 PM CDT [id number]^AROLDO^DAGMAR^[place] [address] Name: IRVIN HOFFMAN : 1950 Study Date: 04/22/2022 02:53 PM Age: 72 yrs Gender: Female Patient Location: [facility] Reason For Study: S/P TAVR (transcathete r aortic valve replacement) Ordering Physician: DAGMAR KENDRICK Referring Physician: DAGMAR KENDRICK Performed By: AT BSA: 2.2 m2 Height: 62 in Weight: 272 lb HR: 64 BP: 136/68 mmHg Procedure Complete Echo Adult. Definity ([facility]1199 4-011) given intravenously. Interpretation Summary The [...] Procedure Note Dagmar Kendrick MD - 04/22/2022 [id number]^AROLDO^DAGMAR^[place] [address] Name: IRVIN HOFFMAN : 1950 Study Date: 04/22/2022 02:53 PM Age: 72 yrs Gender: Female Patient Location: [facility] Reason For Study: S/P TAVR (transcathete r aortic valve replacement) Ordering Physician: DAGMAR KENDRICK Referring Physician: DAGMAR KENDRICK Performed By: AT BSA: 2.2 m2 Height: 62 in Weight: 272 lb HR: 64 BP: 136/68 mmHg Procedure Complete Echo Adult. Definity ([facility] #[id number]) given intravenously. Interpretation Summary The [...] PM Dagmar Kendrick MD CV ECHO ORDERABLES from Last 3 Months Insurance Payer Benefit Plan / Subscriber ID Effective Phone Address T ype Group [facility] [id number] 2022-Prese [phone] [address] [facility] [address] [place]AGE [phone] Care Teams Resp Ther Relationship Specialty Start Date End Date Raghu Bae PCP - General Emergency Medicine 04/22/22 MD [facility]ne [facility] [address] [place] [address] Nicole Salazar, Assigned Heart and 04/25/22 PC INSTALLATION ENGINEER HEALTH AND SAFETY ADVISOR Vascular Provider [address] [facility] [address] [place] [address]
--- OUTSIDE RECORDS SUMMARY | 2022-07-02 13:35 | XMS_ITS | Encounter Summary ---
:1950 Author Organization [facility] Address [address] [place] [address] Care Team Providers Name Role Phone Dagmar Kang MD Unavailable Elyse Paredes MD Primary Care Provider Reason for Visit Reason Onset Date Comments Medication Question 01/12/2022 warfarin Encounter Details Date Type Department Care Team Description 01/12/2022 Telephone [facility] Heart Renetta Kang MD Medication Question Clinic [place] [address] [facility] (warfarin) [address] [facility] [address] [place], [place] [id number] Social History Tobacco Use Types Packs/Day Years [...] Telephone Encounter - Edelmira Paez RN - 01/12/2022 3:45 PM CDT Return call to patient who stated she has changed PCP's and reported that since she is on Warfarin she cannot take NSAIDS for her arthritis so she questioned 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 Explained reason for Warfarin in relation to PAF and that Watchman procedure could be alternative totaking Warfarin which should be discussed at follow-up appt - patient verbalized understanding and agreed to address her questions further at follow-up appt in March. mg Telephone Encounter - Reina Sarah - 01/12/2022 2:36 PM CDT [facility] Call Center Phone Message May a detailed message be left on voicemail: yes Reason for Call: Medication Question or concern regarding medication Prescription Clarification Name of Medication: warfarin Prescribing Provider: Jorge Luis Pharmacy: What on the order needs clarification? Patient has questions on her warfarin. Please call back and discuss. Action Taken: Other: Cardiology Travel Screening: Not Applicable documented in this encounter Plan of Treatment Not on filedocumented as of this encounter Visit Diagnoses Not on filedocumented in this encounter Care Teams Online Publisher Relationship Specialty Start Date End Date Elyse Paredes MD PCP - General Family Practice 12/22/13 04/21/22 [address] [place] [address] Dagmar Kang MD Assigned Heart and 02/14/21 02/27/22 [address] [facility], Vascular Provider [address] [place] [address] documented as of this encounter
--- OUTSIDE RECORDS SUMMARY | 2022-07-02 13:36 | XMS_ITS | Encounter Summary ---
:1950 Author Organization [place] Address [address] [place] [address] Care Team Providers Name Role Phone Elyse Paredes MD Primary Care Provider Encounter Details Date Type Department Care Team Description 10/10/2019 Hospital Encounter [facility] [place] [address] GASTROENTEROLOGY [place], [place] [address] [facility] [address] [place], [place] [id number] (Wo rk) Social History Tobacco Use Types Packs/Day Years Used Date Smoking Tobacco: Never Assessed Sex Assigned at Date Recorded Not on file documented as of this encounter Last Filed Vital Signs Vital Sign Reading Time Taken Comments Blood Pressure - - Pulse - - Temperature - - Respiratory Rate - - Oxygen Saturation - - Inhaled Oxygen Concentration - - Weight 125.6 kg (277 lb) 10/10/2019 10:18 AM CDT Height 157.5 cm (5' 2) 10/10/2019 10:18 AM CDT Body Mass Index 50.66 10/10/2019 10:18 AM CDT documented in this encounter Medications at Time of Discharge Medication Sig Dispensed Refills Start Date End Date amoxicillin (AMOXIL) 500 [AMOXICILLIN 0 9 MG tablet (AMOXIL) 500 MG TABLET] Take 2,000 mg by mouth as needed (prior to dental work). aspirin 81 MG EC [ASPIRIN 81 MG EC 0 08/08/2018 tabletIndications: S/P TABLET] Take 1 TAVR (transcatheter tablet (81 mg total) aortic valve replacement) by mouth daily. BD INSULIN PEN NEEDLE [...] before meals. LANTUS SOLOSTAR 100 [LANTUS SOLOSTAR 100 0 2014 unit/mL (3 mL) pen UNIT/ML (3 ML) PEN] 60 Units at bedtime. Last night 28u semaglutide (OZEMPIC) [SEMAGLUTIDE 0 10/06/2019 0.25 mg or 0.5 mg(2 (OZEMPIC) 0.25 MG OR mg/1.5 mL) PnIj 0.5 MG(2 MG/1.5 ML) PNIJ] as directed anastrozole (ARIMIDEX) 1 [ANASTROZOLE 0 9 04/22/2022 mg tablet (ARIMIDEX) 1 MG TABLET] Take 1 mg by mouth daily. BD INSULIN PEN NEEDLE UF [BD INSULIN PEN 3 201604/22/2022 SHORT 31 gauge x 5/16 NEEDLE UF SHORT 31 Ndle GAUGE X 5/16 NDLE] USE WITH TOUVIRIDIANA AND VICTOZA BID celecoxib (CELEBREX) 200 [CELECOXIB 0 05/20/2015 04/22/2022 MG capsule (CELEBREX) 200 MG CAPSULE] Take 200 mg by mouth daily. CRESTOR 10 mg tablet [CRESTOR 10 MG 0 06/28/2015 04/03/2022 TABLET] Take 10 mg by mouth daily. dulaglutide 0.75 mg/0.5 [DULAGLUTIDE 0.75 0 01/2604/22/2022 mL PnIj MG/0.5 ML PNIJ] Inject 1.5 mg under the skin once a week. sertraline (ZOLOFT) 100 [SERTRALINE (ZOLOFT) 0 04/22/2022 MG tablet 100 MG TABLET] Take 50 mg by [...] RESULTS DIRECTED documented as of this encounter H&P Notes Falguni Mccain - 10/10/2019 10:02 AM CDT I have performed an assessment and examined the patient, as necessary, to update the patient's current status that may have changed since the prior History and Physical. The History & Physical has been reviewed and no updates are needed. documented in this encounter Miscellaneous Notes Op Note - Falguni Mccain MD - 10/10/2019 10:48 AM CDT Images from the original note were not included. Op Note by Falguni Mccain MD at 10/10/2019 10:48 AM Author: Falguni Mccain MD Service: Gastroenterology Author Type: Physician Filed: 10/10/2019 10:50 AM Date of Service: 10/10/2019 10:48 AM Status: Signed [employer] [facility] Reporter: Falguni Mccain MD (Physician) COLONOSCOPY PROCEDURE NOTE Patient Name: Marci Diaz Date of Procedure: October 10, 2019 Endoscopist: Falguni Mccain Procedure: COLONOSCOPY Pre-operative Diagnosis: Personal history of colon polyp Post-operative Diagnosis: diverticulosis Indications: personal history of colon polyps Medications: Monitored anesthesia care Procedure Details The patient was informed of the risks, benefits and alternatives and gave informed consent. The patient had stable cardiovascular status and was judged to be adequate for sedation. A timeout was performed. The patient was sedated in the operating room with monitored anesthesia care. The patient was placed in the left lateral decubitus position. A digital rectal examination was performed. The endoscope was introduced through the anus and advanced to the cecum. The cecum was identified by the presence of the ileocecal valve and appendiceal orifice. Careful inspection was made upon withdrawal. Retroflexion was performed. The quality of the preparation was good (double preparation). Findings: Moderate diverticulosis without associated inflammation from transverse to sigmoid colon. Some sigmoid tortuosity. Tattoo site in ascending colon without evidence for recurrence. Estimated Blood Loss: none Specimens: none Complications: None; patient tolerated the procedure well. Impression: 1) Personal history of colon polyps 2) Diverticulosis without diverticulitis. Recommendations: Repeat exam in 5 years for polyp surveillance Double prep for all future exams (it worked well today). Restart anticoagulation today. Falguni Mccain 10/10/2019 10:48 AM [facility] documented in this encounter Plan of Treatment Not on filedocumented as of this encounter Procedures Procedure Name Priority Date/Time Associated Diagnosis Comme nts GLUCOSE BY METER Routine 10/10/2019 11:03 AM Resu lts for this POCT CDT procedure are i n the results section. GLUCOSE BY METER Routine 10/10/2019 10:03 AM Resu lts for this POCT CDT procedure are i n the results section. EKG CARDIAC - HIM 10/10/2019 SCAN documented in this encounter Results (ABNORMAL) Glucose by meter POCT (10/10/2019 11:03 AM CDT) P athologist Signature GLUCOSE BY 143 (H) 70 - 139 10/10/2019 [facility] METER POCT mg/dL 11:03 AM CDT HOSPITAL POCT RESULTS Specimen Anatomical Collection Method Collection Time Receive d Time (Source) Location / / Volume Laterality Blood specimen 10/10/2019 11:03 0 (specimen) AM CDT 11:10 AM CDT Ines Schultz MD LAB - ENTER/EDIT POCT Performing Organization Address City/State/ZIP Code Phon e Number [facility] POCT RESULTS [address] [place] [id number] (ABNORMAL) Glucose by meter POCT (10/10/2019 10:03 AM CDT) P athologist Signature GLUCOSE BY 164 (H) 70 - 139 10/10/2019 [facility] METER POCT mg/dL 10:03 AM CDT HOSPITAL POCT RESULTS Specimen Anatomical Collection Method Collection Time Receive d Time (Source) Location / / Volume Laterality Blood specimen 10/10/2019 10:03 0 (specimen) AM CDT 10:09 AM CDT Ines Schultz MD LAB - ENTER/EDIT POCT Performing Organization Address City/State/ZIP Code Phon e Number [facility] POCT RESULTS [address] [place] [address] EKG CARDIAC - HIM SCAN (10/10/2019) Narrative This result has an attachment that is no t available. Historical Provider ECG ORDERABLES documented in this encounter Visit Diagnoses Not on filedocumented in this encounter Care Teams Wind Energy Systems Installer Relationship Specialty Start Date End Date Elyse Paredes MD PCP - General Family Practice 12/22/13 04/21/22 [address] [place] [address] documented as of this encounter
--- OUTSIDE RECORDS SUMMARY | 2022-07-02 13:36 | XMS_ITS | Encounter Summary ---
:1950 Author Organization [place] Address [address] [place] [address] Care Team Providers Name Role Phone Elyse Paredes MD Primary Care Provider Encounter Details Date Type Department Care Team Description 10/10/2019 Surgery - [facility], [facility] [address] [place]STROENTEROLOG[place] [address] [facility] [id number] [place], [place] [id number] (Wo rk) Social History Tobacco Use Types [...] 10:18 AM CDT documented in this encounter Plan of Treatment Not on filedocumented as of this encounter Visit Diagnoses Not on filedocumented in this encounter Care Teams Slip Filler Relationship Specialty Start Date End Date Elyse Paredes MD PCP - General Family Practice 12/22/13 04/21/22 [address] [place], [place] [id number] documented as of this encounter
--- OUTSIDE RECORDS SUMMARY | 2022-07-02 13:36 | XMS_ITS | Encounter Summary ---
:1950 Author Organization [place] Address [address] [place] [address]. [place] [address] Care Team Providers Name Role Phone Elyse Paredes MD Primary Care Provider Reason for Visit Reason Comments Medication Refill lorsartan, chlorthalidone Encounter Details Date Type Department Care Team Description 02/14/2020 Communication - [facility] Gabrielle Golden tion Refill [facility] Dora, RN (lorsartan, [place] chlorthalidone) [address] [facility] [address] [place] [address] Social History Tobacco Use Types Packs/Day Years Used Date Smoking Tobacco: Never Assessed Sex Assigned at Date Recorded Not on file documented as of this encounter Plan of Treatment Not on filedocumented as of this encounter Visit Diagnoses Diagnosis S/P TAVR (transcatheter aortic valve rep lacement) Benign essential hypertension Essential hypertension, benign documented in this encounter Care Teams Medicine Technologist Relationship Specialty Start Date End Date Elyse Paredes MD PCP - General Family Practice 12/22/13 04/21/22 [address] [place] [address] documented as of this encounter
--- OUTSIDE RECORDS SUMMARY | 2022-07-02 13:36 | XMS_ITS | Encounter Summary ---
:1950 Author Organization [place] Address [address] [place] [address] Care Team Providers Name Role Phone Elyse Paredes MD Primary Care Provider Encounter Details Date Type Department Care Team Description [facility] CONVERSION Provider, Histor ical Social History Tobacco Use Types Packs/Day Years Used Date Smoking Tobacco: Never Assessed Sex Assigned at Date Recorded Not on file documented as of this encounter Plan of Treatment Not on filedocumented as of this encounter Procedures Procedure Name Priority Date/Time Associated Diagnosis Comme nts XR CHEST PORT 1 Routine 11/26/2008 12:00 AM Resul ts for this VIEW CDT procedure are i n the results section. documented in this encounter Results XR Chest Port 1 View (11/26/2008 12:00 AM CDT) Anatomical Region Laterality Modality Chest Digital Radiography Specimen (Source) Anatomical Location Collection Method / Collectio n Time Received Time / Laterality Volume Narrative 11/26/2008 12:00 AM CDT See Historical Hospital Medical Record f or documentation Procedure Note Provider, Historical - 12/31/2020Formatt ing of this note might be different from the original. See Historical Hospital Medical Record f or documentation Historical Provider IMG DIAGNOSTIC IMAGING ORDER LEXA documented in this encounter Visit Diagnoses Not on filedocumented in this encounter Care Teams Safety Trainer Relationship Specialty Start Date End Date Elyse Paredes MD PCP - General Family Practice 12/22/13 04/21/22 [address] [place], [place] [id number] documented as of this encounter
--- OUTSIDE RECORDS SUMMARY | 2022-07-02 13:36 | XMS_ITS | Encounter Summary ---
:1950 Author Organization [place] Address [address] [place] [address] Care Team Providers Name Role Phone Elyse Paredes MD Primary Care Provider Encounter Details Date Type Department Care Team Description 12/27/2020 Records - [facility] Z HE CONVERSION Provider, Histor ical Social History Tobacco Use Types Packs/Day Years Used Date Smoking Tobacco: Never Assessed Sex Assigned at Date Recorded Not on file documented as of this encounter Plan of Treatment Not on filedocumented as of this encounter Procedures Procedure Name Priority Date/Time Associated Diagnosis Comme nts XR IVP INCL Routine 04/02/2004 12:00 AM Results for this TOMOGRAMS CDT procedure are i n the results section. documented in this encounter Results XR IVP w Tomograms (04/02/2004 12:00 AM CDT) Anatomical Region Laterality Modality Abdomen/Pelvis Other Specimen (Source) Anatomical Location Collection Method / Collectio n Time Received Time / Laterality Volume Narrative 04/02/2004 12:00 AM CDT See Historical Hospital Medical Record f or documentation Procedure Note Provider, Historical - 12/27/2020Formatt ing of this note might be different from the original. See Historical Hospital Medical Record f or documentation Historical Provider IMG DIAGNOSTIC IMAGING ORDER LEXA documented in this encounter Visit Diagnoses Not on filedocumented in this encounter Care Teams Refractory Manager Relationship Specialty Start Date End Date Elyse Paredes MD PCP - General Family Practice 12/22/13 04/21/22 [address] [place], [place] [id number] documented as of this encounter
--- OUTSIDE RECORDS SUMMARY | 2022-07-02 13:36 | XMS_ITS | Encounter Summary ---
:1950 Author Organization [place] Address [address] [place] [address] Care Team Providers Name Role Phone Elyse Paredes MD Primary Care Provider Encounter Details Date Type Department Care Team Description [facility] CLE[facility] VARGAS CONVERSION Provider, Histor ical Social History Tobacco Use Types Packs/Day Years Used Date Smoking Tobacco: Never Assessed Sex Assigned at Date Recorded Not on file documented as of this encounter Plan of Treatment Not on filedocumented as of this encounter Procedures Procedure Name Priority Date/Time Associated Diagnosis Comme nts US MISC(FCIS) US Routine 11/24/2008 12:00 AM Resu lts for this ORDER CDT procedure are i n the results section. XR CHEST 2 VIEWS Routine 11/24/2008 12:00 AM Resu lts for this CDT procedure are i n the results section. documented in this encounter Results XR Chest 2 Views (11/24/2008 12:00 AM CDT) Anatomical Region Laterality Modality Chest Digital Radiography Specimen (Source) Anatomical Location Collection Method / Collectio n Time Received Time / Laterality Volume Narrative 11/24/2008 12:00 AM CDT See Historical Hospital Medical Record f or documentation Procedure Note Provider, Historical - 12/31/2020Formatt ing of this note might be different from the original. See Historical Hospital Medical Record f or documentation Historical Provider IMG DIAGNOSTIC IMAGING ORDER LEXA US Miscellaneous US Order (11/24/2008 12:00 AM CDT) Anatomical Region Laterality Modality Other Specimen (Source) Anatomical Location Collection Method / Collectio n Time Received Time / Laterality Volume Narrative 11/24/2008 12:00 AM CDT See Historical Hospital Medical Record f or documentation Procedure Note Provider, Historical - 12/31/2020Formatt ing of this note might be different from the original. See Historical Hospital Medical Record f or documentation [facility] documented in this encounter Visit Diagnoses Not on filedocumented in this encounter Care Teams Special Ed Assistant Relationship Specialty Start Date End Date Reggie, Elyse Armas MD PCP - General Family Practice 12/22/13 04/21/22 [address] [place] [address] documented as of this encounter
--- OUTSIDE RECORDS SUMMARY | 2022-07-02 13:36 | XMS_ITS | Encounter Summary ---
:1950 Author Organization [place] Address [address] [place] [address] Care Team Providers Name Role Phone Elyse Paredes MD Primary Care Provider Encounter Details Date Type Department Care Team Description 12/31/2020 Records - [facility] Naina HE CONVERSION Provider, Histor ical Social History Tobacco Use Types Packs/Day Years Used Date Smoking Tobacco: Never Assessed Sex Assigned at Date Recorded Not on file documented as of this encounter Plan of Treatment Not on filedocumented as of this encounter Procedures Procedure Name Priority Date/Time Associated Diagnosis Comme nts CTA CHEST WITH Routine 11/27/2008 12:00 AM Result s for this CONTRAST CDT procedure are i n the results section. documented in this encounter Results CTA Chest with Contrast (11/27/2008 12:00 AM CDT) Anatomical Region Laterality Modality Chest, SUBRAD IR PROCEDURE, UMP CT CTA, RAD CT Computed Tomography Specimen (Source) Anatomical Location Collection Method / Collectio n Time Received Time / Laterality Volume Narrative 11/27/2008 12:00 AM CDT See Historical Hospital Medical Record f or documentation Procedure Note Provider, Historical - 12/31/2020Formatt ing of this note might be different from the original. See Historical Hospital Medical Record f or documentation Historical Provider IMG CT ORDERABLES documented in this encounter Visit Diagnoses Not on filedocumented in this encounter Care Teams Steaming Cabinet Tender Relationship Specialty Start Date End Date Elyse Paredes MD PCP - General Family Practice 12/22/13 04/21/22 [address] [place], [place] [phone] documented as of this encounter
--- OUTSIDE RECORDS SUMMARY | 2022-07-02 13:36 | XMS_ITS | Encounter Summary ---
:1950 Author Organization [place] Address [address] [place] [address] Care Team Providers Name Role Phone Elyse Paredes MD Primary Care Provider Reason for Visit Reason Comments Pain Encounter Details Date Type Department Care Team Description 06/05/2020 Communication - [facility] Bryce Paez [facility] devora Hickey RN [address] [facility] [address] [place] [phone] Social History Tobacco Use Types Packs/Day Years Used Date Smoking Tobacco: Never Assessed Sex Assigned at Date Recorded Not on file documented as of this encounter Miscellaneous Notes Telephone Encounter - Edelmira Paez RN - 06/05/2020 8:26 AM CST Return call to patient who reported she is actively having stabbing pain on left side of chest that is radiating into her back below her shoulder blade and down her arm - patient confirmed hx of TAVR, CAD but no TX - patient does not have prn Rx for SL Nitrostat. Instructed patient to call 911 or be taken to nearest ED for urgent evaluation - patient verbalized understanding. mg GE MANAGEMENT ADMINISTRATOR Telephone Encounter - Edelmira Paez RN - 06/05/2020 8:23 AM CST ----- Message from Tiffany Rose sent at 06/05/2020 8:18 AM CHANGE MANAGEMENT ADMINISTRATOR ----- General phone call: PATIENT HAVING A SHARP STABBING PAIN IN LEFT CHEST RADIATING DOWN ARM, STARTED LAST NIGHT, DIDN'T SLEEP, ALSO LABORED BREATHING, WITH ACTIVITY, PLEASE CALL Caller: PATIENT Primary cnc programmer: DR KENDRICK Detailed reason for call: SEE ABOVE New or active symptoms? YES, SEE ABOVE Best phone number: [phone] Best time to contact: ANY TIME Ok to leave a detailed message? YES Device? NO Additional Info: GE MANAGEMENT ADMINISTRATOR documented in this encounter Plan of Treatment Not on filedocumented as of this encounter Visit Diagnoses Not on filedocumented in this encounter Care Teams Hebrew Cantor Relationship Specialty Start Date End Date Elyse Paredes MD PCP - General Family Practice 12/22/13 04/21/22 [address] [place] [address] documented as of this encounter
--- OUTSIDE RECORDS SUMMARY | 2022-07-02 13:36 | XMS_ITS | Encounter Summary ---
:1950 Author Organization [place] Address [address] [place] [address] Care Team Providers Name Role Phone Elyse Paredes MD Primary Care Provider Encounter Details Date Type Department Care Team Description 12/21/2019 Records - [facility] HE CONVERSION Provider, Karthik raya Social History Tobacco Use Types Packs/Day Years Used Date Smoking Tobacco: Never Assessed Sex Assigned at Date Recorded Not on file documented as of this encounter Plan of Treatment Not on filedocumented as of this encounter Visit Diagnoses Not on filedocumented in this encounter Care Teams Hook And Eye Attacher Relationship Specialty Start Date End Date Elyse Paredes MD PCP - General Family Practice 12/22/13 04/21/22 [address] [place] [address] documented as of this encounter
--- OUTSIDE RECORDS SUMMARY | 2022-07-02 13:36 | XMS_ITS | Encounter Summary ---
:1950 Author Organization [place] Address [address] [place] [address] Care Team Providers Name Role Phone Elyse Paredes MD Primary Care Provider Encounter Details Date Type Department Care Team Description 12/27/2020 Records - [facility] CLEMENTINA HE CONVERSION Provider, Histor ical Social History Tobacco Use Types Packs/Day Years Used Date Smoking Tobacco: Never Assessed Sex Assigned at Date Recorded Not on file documented as of this encounter Plan of Treatment Not on filedocumented as of this encounter Procedures Procedure Name Priority Date/Time Associated Diagnosis Comme nts CT MISC FCIS ORDER Routine 05/22/2004 12:00 AM Re sults for this CDT procedure are i n the results section. CT MISC FCIS ORDER Routine 05/22/2004 12:00 AM Re sults for this CDT procedure are i n the results section. XR SURGERY DAISY Routine 05/22/2004 12:00 AM Resul ts for this FLUORO LESS THAN 5 CDT procedure are in MIN the results section. documented in this encounter Results CT Misc Order (05/22/2004 12:00 AM CDT) Anatomical Region Laterality Modality Computed Tomography Specimen (Source) Anatomical Location Collection Method / Collectio n Time Received Time / Laterality Volume Narrative 05/22/2004 12:00 AM CDT See Historical Hospital Medical Record f or documentation Procedure Note Provider, Historical - 12/27/2020Formatt ing of this note might be different from the original. See Historical Hospital Medical Record f or documentation Historical Provider IMG CT ORDERABLES XR Surgery DAISY Fluoro L/T 5 Min (05/22/2004 12:00 AM CDT) Anatomical Region Laterality Modality Abdomen/Pelvis Other Specimen (Source) Anatomical Location Collection Method / Collectio n Time Received Time / Laterality Volume Narrative 05/22/2004 12:00 AM CDT See Historical Hospital Medical Record f or documentation Procedure Note Provider, Historical - 12/27/2020Formatt ing of this note might be different from the original. See Historical Hospital Medical Record f or documentation Historical Provider IMG DIAGNOSTIC IMAGING ORDER LEXA CT Misc Order (05/22/2004 12:00 AM CDT) Anatomical Region Laterality Modality Computed Tomography Specimen (Source) Anatomical Location Collection Method / Collectio n Time Received Time / Laterality Volume Narrative 05/22/2004 12:00 AM CDT See Historical Hospital Medical Record f or documentation Procedure Note Provider, Historical - 12/27/2020Formatt ing of this note might be different from the original. See Historical Hospital Medical Record f or documentation Historical Provider IMG CT ORDERABLES documented in this encounter Visit Diagnoses Not on filedocumented in this encounter Care Teams Stitcher Tape Controlled Machine Relationship Specialty Start Date End Date Elyse Paredes MD PCP - General Family Practice 12/22/13 04/21/22 [address] [facility] [place] [address] documented as of this encounter
--- OUTSIDE RECORDS SUMMARY | 2022-07-02 13:36 | XMS_ITS | Encounter Summary ---
:1950 Author Organization [place] Address [address] [place] [address] Care Team Providers Name Role Phone Elyse Paredes MD Primary Care Provider Reason for Visit Reason Comments Follow Up Encounter Details Date Type Department Care Team Description 12/26/2020 Office Visit - [facility] Dagmar Kang, Coronar y artery disease involving telida coronary artery of telida heart, angina presence unspecified; [facility] CASTRO (dyspnea on exertion); [place] [address] S/P TAVR (transcatheter aort ic valve replacement); [facility], Stage 3a chron ic kidney disease; [place] [address] Paroxysmal atrial fibrillation (H); [place], [place] Mixed hyperli pidemia [id number] [phone] Social History Tobacco Use Types Packs/Day Years Used Date Smoking Tobacco: Never Assessed Sex Assigned at Date Recorded Not on file documented as of this encounter Last Filed Vital Signs Vital Sign Reading Time Taken Comments Blood Pressure 126/68 12/26/2020 10:29 AM CDT Pulse 96 12/26/2020 10:29 AM CDT Temperature - - Respiratory Rate 16 12/26/2020 10:29 AM CDT Oxygen Saturation - - Inhaled Oxygen Concentration - - Weight 120.1 kg (264 lb 12.8 oz) 12/26/2020 10:29 AM CDT Height - - Body Mass Index 48.43 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 Progress Notes by Dagmar Kang MD at 12/26/2020 10:10 AM Author: Dagmar Kang MD Service: -- Author Type: Physician Filed: 12/26/2020 2:09 PM Encounter Date: 12/26/2020 Status: Signed Asset Protection Assistant: Dagmar Kang MD (Physician) Thank you, Dr. Paredes, for asking the [facility] team to see Ms. Marci Diaz to [facility] on coronary artery disease, hypercholesterolemia. Assessment/Recommendations Assessment: 1. Coronary artery disease, status post stenting of the left anterior descending in 2016. She deniesany exertional chest discomfort but does report exertional dyspnea which may have progressed over the last year. Unclear how much of this may be related to cardiovascular deconditioning due to the Covid pandemic. Given her diabetic status, I cannot exclude an anginal equivalent so have recommended a nuclear stress study to further evaluate. 2. Paroxysmal atrial fibrillation with no obvious recurrent events. She remains on warfarin anticoagulation to minimize risks of thromboembolic events. 3. Aortic valve stenosis, status post TAVR June 2017. Her last echocardiogram in March 2020 continued to show a mean gradient of approximately 20 mmHg. This could account for her symptoms of exertional dyspnea as well. If no evidence of recurrent ischemia, may recommend repeating her echocardiogram. 4. Breast carcinoma status post lumpectomy with adjuvant radiation and hormonal therapy therapy 5. Hypercholesterolemia, with LDL of 82 in August of this year. Ideally would like to see this below 70 given her coronary artery disease. Would consider increasing her dose of rosuvastatin to 20 mg daily. Plan: 1. Continue current medications although consider increasing rosuvastatin to 20 mg daily to get LDL below 70. 2. Pursue outpatient nuclear stress testing with further recommendations to follow. History of Present Illness Ms. Marci Diaz is a 70 y.o. female with history of coronary artery disease, status post stenting of the mid left anterior descending in 2016 prior to transcutaneous aortic valve replacement for severe aortic valve stenosis, paroxysmal atrial fibrillation and breast carcinoma status post lumpectomy with adjuvant radiation and hormonal therapy presents to the office today for a follow-up visit. Over the course of the year, she has noted a slight increase in her symptoms of exertional dyspnea although admits to essentially staying at home over the past year due to the COVID-19 pandemic. She denies any associated chest discomfort with her exertional dyspnea. No symptoms of orthopnea, PND or lower extremity edema. She and a friend are planning a trip to [place] in 18 months and she wants to make certain her heart is in good shape for that trip. Denies any sense of palpitations or rapid heart beating. ECG (personally reviewed): No ECG today Cardiac Imaging Studies (personally reviewed): No recent imaging Physical Examination Review of Systems Vitals: 12/26/20 1029 BP: 126/68 Pulse: 96 Resp: 16 Body mass index is 48.43 kg/m??. Wt Readings from Last 3 Encounters: 12/26/20 (!) 264 lb 12.8 oz (120.1 kg) 06/05/20 (!) 274 lb (124.3 kg) 12/29/19 (!) 284 lb (128.8 kg) General Appearance: Awake, Alert, No acute distress. HEENT: No scleral icterus; the mucous membranes were pink and moist. Neck: No cervical bruits or jugular venous distention Chest: The spine was straight. The chest was symmetric. Lungs: Respirations unlabored; the lungs are clear to auscultation. No wheezing Cardiovascular: Regular rate and rhythm. S1 normal, S2 slightly reduced. 2/6 early to mid peaking crescendo decrescendo systolic murmur heard at the left upper sternal border. No other murmurs identified. Abdomen: No organomegaly, masses, bruits, or tenderness. Bowels sounds are present Extremities: No peripheral edema bilaterally. Skin: No xanthelasma. Warm, Dry. Musculoskeletal: No tenderness. Neurologic: Mood and affect are appropriate. General: WNL Eyes: WNL Ears/Nose/Throat: WNL Lungs: WNL Heart: Shortness of Breath with activity Stomach: WNL Bladder: WNL Muscle/Joints: WNL Skin: WNL Nervous System: WNL Mental Health: WNL Blood: WNL Medical History Surgical History Family History Social History Past Medical History: Diagnosis Date ? Bicuspid aortic valve 2017 ? Cancer (H) 2018 breast cancer invasive ductal carcinoma ? CHF (congestive heart failure) (H) 2017 ? Coronary artery disease 05/2017 JEFFERSON,LAD (2 stents) ? Depression 2013 ? Diabetes mellitus (H) 1994 insulin ? DJD (degenerative joint disease) ? Dyspnea 2016 ? Hyperlipidemia 1994 ? Hypertension 1994 ? Kidney stones 2016 ? Morbid obesity (H) ? Nephrolithiasis 2017 renal cyst ? DEDE on CPAP 2008 ? Persistent atrial fibrillation (H) 2016 ? Severe aortic stenosis 2016 ? Thyroid cyst ? Tooth abscess 2016 Past Surgical History: Procedure Laterality Date ? BREAST LUMPECTOMY Left 2018 completed radiation therapy ? CARDIAC CATHETERIZATION 05/12/2017 ? CARDIOVERSION 2017 ? COLONOSCOPY N/A 06/27/2019 Procedure: COLONOSCOPY; Surgeon: Jeni Barrera MD; Location: [facility] OR; Service: Gastroenterology ? COLONOSCOPY N/A 10/10/2019 Procedure: COLONOSCOPY; Surgeon: Falguni Mccain MD; Location: [facility] Main OR; Service: Gastroenterology ? CV CORONARY ANGIOGRAM N/A 05/12/2017 Procedure: Coronary Angiogram; Surgeon: Ankush Martinez MD; Location: [facility]; Service: ? CV TRANSFEMORAL TRANSCATHETER VALVE REPLACEMENT N/A 07/06/2017 Procedure: Transfemoral Transcatheter Aortic Valve Replacement; Surgeon: Ankush Martinez MD; Location: [facility]; Service: ? TOTAL KNEE ARTHROPLASTY Bilateral Family History Problem Relation Age of Onset ? Diabetes Father ? Heart disease Father ? Esophageal cancer Brother ? Urolithiasis Neg Hx ? Clotting disorder Neg Hx ? Gout Neg Hx Social History Socioeconomic History ? Marital status: Spouse name: Not on file ? Number of children: Not on file ? Years of education: Not on file ? Highest education level: Not on file Occupational History ? 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 Financial resource strain: Not on file ? Food insecurity Worry: Not on file Inability: Not on file ? Transportation needs Medical: Not on file Non-medical: Not on file Tobacco Use ? Smoking status: Never Smoker ? Smokeless tobacco: Never Used Substance and Sexual Activity ? Alcohol use: No ? Drug use: No ? Sexual activity: Not Currently Lifestyle ? Physical activity Days per week: Not on file Minutes per session: Not on file ? Stress: Not on file Relationships ? Social connections Talks on phone: Not on file Gets together: Not on file Attends anglican service: Not on file Active member of club or organization: Not on file Attends meetings of clubs or organizations: Not on file Relationship status: Not on file ? Intimate partner violence Fear of current or ex partner: Not on file Emotionally abused: Not on file Physically abused: Not on file Forced sexual activity: Not on file Other Topics Concern ? Not on file Social History Narrative ? Not on file Medications Allergies Current Outpatient Medications Medication Sig Dispense Refill ? allopurinoL (ZYLOPRIM) 100 MG tablet Take 1 tablet by mouth daily. ? amoxicillin (AMOXIL) 500 MG tablet Take 2,000 mg by mouth as needed (prior to dental work). ? aspirin 81 MG EC tablet Take 1 tablet (81 mg total) by mouth daily. 0 ? BD INSULIN PEN NEEDLE UF MINI 31 gauge x 3/16 Ndle USE 4-5 PER DAY UTD 0 ? BD INSULIN PEN NEEDLE UF SHORT 31 gauge x 5/16 Ndle USE WITH TOUJEO AND VICTOZA BID 3 ? chlorthalidone (HYGROTEN) 25 MG tablet Take 1 tablet (25 mg total) by mouth daily. 90 tablet 2 ? CRESTOR 10 mg tablet Take 10 mg by mouth daily. ? famotidine (FOR PEPCID) 10 MG tablet Take 10 mg by mouth as needed. ? insulin lispro (HUMALOG) 100 unit/mL injection Inject 6-10 Units under the skin 3 (three) times a day before meals. ? LANTUS SOLOSTAR 100 unit/mL (3 mL) pen 60 Units at bedtime. Last night 28u ? losartan (COZAAR) 50 MG tablet Take 1.5 tablets (75 mg total) by mouth daily. (Patient taking differently: Take 50 mg by mouth daily. ) 135 tablet 2 ? metoprolol succinate (TOPROL-XL) 25 MG TAKE 1 TABLET(25 MG) BY MOUTH DAILY 90 tablet 0 ? semaglutide (OZEMPIC) 0.25 mg or 0.5 mg(2 mg/1.5 mL) PnIj as directed ? tamoxifen (NOLVADEX) 20 MG tablet Take 1 tablet by mouth daily. ? venlafaxine (EFFEXOR-XR) 37.5 MG 24 hr capsule Take 75 mg by mouth daily. ? warfarin (COUMADIN/JANTOVEN) 2.5 MG tablet TAKE 1 TABLET BY MOUTH EVERY DAY 90 tablet 0 ? warfarin (COUMADIN/JANTOVEN) 5 MG tablet TAKE 1 TABLET BY MOUTH DAILY. ADJUST DOSE BASED ON INR RESULTS DIRECTED 30 tablet 0 ? anastrozole (ARIMIDEX) 1 mg tablet Take 1 mg by mouth daily. ? celecoxib (CELEBREX) 200 MG capsule Take 200 mg by mouth daily. ? dulaglutide 0.75 mg/0.5 mL PnIj Inject 1.5 mg under the skin once a week. ? methocarbamoL (ROBAXIN) 500 MG tablet Take 1 tablet (500 mg total) by mouth 2 (two) times a day asneeded (muscle spasm). 14 tablet 0 ? oxyCODONE (ROXICODONE) 5 MG immediate release tablet Take 1 tablet (5 mg total) by mouth every 8 (eight) hours as needed (breakthrough pain). 6 tablet 0 ? sertraline (ZOLOFT) 100 MG tablet Take 50 mg by mouth daily. No current facility-administered medications for this visit. Allergies Allergen Reactions ? Lisinopril Cough ? Metformin Nausea And Vomiting ? Erythromycin Base Rash ? Ilosone Rash Lab Results Chemistry/lipid CBC Cardiac Enzymes/BNP/TSH/INR Lab Results Component Value Date CHOL 159 10/04/2019 HDL 53 10/04/2019 LDLCALC 70 10/04/2019 TRIG 182 (H) 10/04/2019 CREATININE 1.56 (H) 06/05/2020 BUN 24 (H) 06/05/2020 K 3.6 06/05/2020 NA 135 (L) 06/05/2020 CL 99 06/05/2020 CO2 27 06/05/2020 Lab Results Component Value Date WBC 7.6 06/05/2020 HGB 13.5 06/05/2020 HCT 38.5 06/05/2020 MCV 94 06/05/2020 PLT 190 06/05/2020 Lab Results Component Value Date TROPONINI 0.02 06/05/2020 BNP 12 10/04/2019 TSH 5.91 (H) 03/23/2018 INR 2.10 (H) 06/05/2020 A total of 35 minutes was spent reviewing patient's medical records, obtaining history and performing examination, as well as discussing diagnoses/ recommendations with patient and answering all questions. documented in this encounter Miscellaneous Notes Patient Instructions - HE - Dagmar Kang MD - 12/26/2020 10:10 AM CDT 1. Continue current medications 2. Set up a nuclear stress test to evaluate for any new blood flow issues. We will call with resultsand recommendations. documented in this encounter Plan of Treatment Not on filedocumented as of this encounter Visit Diagnoses Diagnosis Coronary artery disease involving telida coronary artery of telida heart, angina presence unspecified CASTRO (dyspnea on exertion) Other dyspnea and respiratory abnormalit y S/P TAVR (transcatheter aortic valve rep lacement) Stage 3a chronic kidney disease (H) Paroxysmal atrial fibrillation (H) Atrial fibrillation Mixed hyperlipidemia documented in this encounter Care Teams Agricultural Extension Agent Relationship Specialty Start Date End Date Elyse Paredes MD PCP - General Family Practice 12/22/13 04/21/22 [address] [place] [address] documented as of this encounter
--- OUTSIDE RECORDS SUMMARY | 2022-07-02 13:36 | XMS_ITS | Encounter Summary ---
:1950 Author Organization [place] Address [address] [place] [address]. [place] [address] Care Team Providers Name Role Phone Elyse Paredes MD Primary Care Provider Encounter Details Date Type Department Care Team Description 12/21/2019 [facility] Provider, [address] [place] [address] Social History Tobacco Use Types Packs/Day Years Used Date Smoking Tobacco: Never Assessed Sex Assigned at Date Recorded Not on file documented as of this encounter Plan of Treatment Not on filedocumented as of this encounter Procedures Procedure Name Priority Date/Time Associated Diagnosis Comme nts LAB RESULT - HIM SCAN Routine 12/21/2019 documented in this encounter Results Lab Result - HIM Scan (12/21/2019) Specimen (Source) Anatomical Location Collection Method / Collectio n Time Received Time / Laterality Volume Narrative This result has an attachment that is no t available. Historical Provider NON-BEAKER LAB TESTING documented in this encounter Visit Diagnoses Not on filedocumented in this encounter Care Teams Rn Patient Care Relationship Specialty Start Date End Date Elyse Paredes MD PCP - General Family Practice 12/22/13 04/21/22 [address] [place], [place] [id number] documented as of this encounter
--- OUTSIDE RECORDS SUMMARY | 2022-07-02 13:36 | XMS_ITS | Encounter Summary ---
:1950 Author Organization [place] Address [address] [place] [address] Care Team Providers Name Role Phone Elyse Paredes MD Primary Care Provider Encounter Details Date Type Department Care Team Description [facility] Provider, Histor ical Social History Tobacco Use Types Packs/Day Years Used Date Smoking Tobacco: Never Assessed Sex Assigned at Date Recorded Not on file documented as of this encounter Plan of Treatment Not on filedocumented as of this encounter Procedures Procedure Name Priority Date/Time Associated Diagnosis Comme nts XR KNEE PORT LEFT Routine 01/07/2010 12:00 AM Res ults for this 1/2 VIEWS CDT procedure are i n the results section. documented in this encounter Results XR Knee Port Left 1/2 Views (01/07/2010 12:00 AM CDT) Anatomical Region Laterality Modality Knee, Left Knee Left Other Specimen (Source) Anatomical Location Collection Method / Collectio n Time Received Time / Laterality Volume Narrative 01/07/2010 12:00 AM CDT See Historical Hospital Medical Record f or documentation Procedure Note Provider, Historical - 01/01/2021Formatt ing of this note might be different from the original. See Historical Hospital Medical Record f or documentation Historical Provider IMG DIAGNOSTIC IMAGING ORDER LEXA documented in this encounter Visit Diagnoses Not on filedocumented in this encounter Care Teams Pin Setter Relationship Specialty Start Date End Date Elyse Paredes MD PCP - General Family Practice 12/22/13 04/21/22 [address] [place], [place] [id number] documented as of this encounter
--- OUTSIDE RECORDS SUMMARY | 2022-07-02 13:36 | XMS_ITS | Encounter Summary ---
:1950 Author Organization [place] Address [address] [place] [address] Care Team Providers Name Role Phone Elyse Paredes MD Primary Care Provider Encounter Details Date Type Department Care Team Description 04/15/2020 [facility] - [facility] CONVERSION Provider, Karthik raya Social History Tobacco Use Types Packs/Day Years Used Date Smoking Tobacco: Never Assessed Sex Assigned at Date Recorded Not on file documented as of this encounter Plan of Treatment Not on filedocumented as of this encounter Procedures Procedure Name Priority Date/Time Associated Comments Diagnosis LAB RESULT - HIM SCAN 04/15/2020 2:48 PM CDT GYNECOLOGIC CYTOLOGY Routine 04/03/2020 8:25 AM R esults for this CDT procedure are i n the results section. HPV HIGH RISK TYPES Routine 04/03/2020 8:25 AM Re sults for this DNA CERVICAL CDT procedure are i n the results section. documented in this encounter Results LAB RESULT - HIM SCAN (04/15/2020 2:48 PM CDT) Specimen (Source) Anatomical Location Collection Method / Collectio n Time Received Time / Laterality Volume Narrative This result has an attachment that is no t available. Historical Provider MH NON-BEAKER LAB TESTING HPV High Risk Types DNA Cervical (04/03/2020 8:25 AM CDT) [facility] Method Time Signature HPV Source [facility] 04/04/2020 [facility] 1:15 PM CDT [facility] HPV16 DNA Negative NEG 04/04/2020 [facility] 1:15 PM CDT [facility] HPV18 DNA Negative NEG 04/04/2020 [facility] 1:15 PM CDT [facility] Other HR HPV Negative NEG 04/04/2020 [facility] 1:15 PM CDT [facility] FINAL SEE NOTES 04/04/2020 [facility] 1:15 PM CDT [facility] Comment: This patient's sample is negative for HP V DNA. This test was developed and its performa nce characteristics determined by the [facility], [facility] Diagnostics Laboratory. It has not been cleared or approved by the FDA. The laboratory is regulated under CLIA as qualified to perform high-comple xity testing. This test is used for clinical purposes. It should not be rega rded as investigational or for research. (Note) METHODOLOGY: ??The Letty mitch 4800 syst em uses automated extraction, simultaneous amplification of HPV (L1 re gion) and beta-globin, followed by ??real time detection of flu orescent labeled HPV and beta globin using specific oligonucleotide pr obes . The test specifically identifies types HPV 16 DNA and HPV 18 D NA while concurrently detecting the rest of the high risk type s (31, 33, 35, 39, 45, 51, 52, 56, 58, 59, 66 or 68). COMMENTS: ??This test is not intended fo r use as a screening device for women under age 30 with normal cervi sheyla cytology. ??Results should be correlated with cytologic and histolo gic findings. Close clinical followup is recommended. Specimen Description Cervical Cells 04/04/2020 1:1 5 PM [facility] Comment: Performed and/or entered by: [facility] [address] [place] [address] Specimen Anatomical Collection Method Collection Time Receive d Time (Source) Location / / Volume Laterality Specimen from 04/03/2020 8:25 AM 04/04/20 20 5:26 genital system CDT PM CDT (specimen) Elyse Paredes MD LAB - BLOOD ORDERABLES Performing Organization Address City/State/ZIP Code Phon e Number [facility] [address] [place] [address] LAB[address]ATORIES [address] Gynecologic Cytology (PAP Smear) (04/03/2020 8:25 AM CDT) Component Value Ref Range Test Analysis Performed Pathologis t Method Time At Signature Case Report Gynecologic Cytology Report ? Case: [id number] ? [facility] Authorizing Provider: ??Elyse Paredes MD ? Collected: ? 04/03/2020 0825 ? 0 2:48 PM [facility] Ordering Location: ?[facility] Lab Received: ?04/04/2020 0958 ? CDT . [facility] First Screen: ? Ling Prather, CT ? LABORATORY ? (ASCP) ? Rescreen: ?Hugh, Arleth M, CT ? (ASCP) ? Specimen: ?SUREPATH PAP, SCREENING, Endocervical/cervical ? Interpretation Negative for squamous intraepithelial le gordon or malignancy Negative for [facility] at ??2:48 PM squamous 0 2:48 PM [facility] intraepithelial CDT . [facility] lesion or LABORATORY malignancy. Result Flag Normal Normal [facility] 0 2:48 PM [facility] CDT . [facility] Specimen Satisfactory for [facility] Adequacy evaluation, 0 2:48 PM [facility] endocervical/tra CDT . [facility] nsformation zone LABORATORY component absent Reflex Testing Yes regardless [facility] of result 0 2:48 PM [facility] CDT . [facility] High Risk? No [facility] 0 2:48 PM [facility] CDT . [facility] LMP/Menopause >10 years ago [facility] Date 0 2:48 PM [facility] CDT . [facility] Abnormal No [facility] Bleeding 0 2:48 PM [facility] CDT . [facility] Patient Status N/A [facility] 0 2:48 PM [facility] CDT . [facility] None [facility] Control/Hormone 0 2:48 PM [facility] s CDT . [facility] Previous Normal 07/24/2015 [facility] 0 2:48 PM [facility] CDT . [facility] Previous None [facility] Abnormal? 0 2:48 PM [facility] CDT . [facility] Cervical Normal [facility] Appearance 0 2:48 PM [facility] CDT . [facility] Specimen Anatomical Collection Method Collection Time Receive d Time (Source) Location / / Volume Laterality Specimen from [facility]ERV[facility] UTERI 04/03/2020 8:25 AM 04/04/20 20 9:58 genital system STRUCTURE / CDT AM CDT (specimen) Unknown Elyse Paredes MD LAB - [facility] Performing Organization Address City/State/ZIP Code Phon e Number [place] [address] [phone] [address] [facility] documented in this encounter Visit Diagnoses Not on filedocumented in this encounter Care Teams Stud Driver Relationship Specialty Start Date End Date Elyse Paredes MD PCP - General Family Practice 12/22/13 04/21/22 [address] [place] [address] documented as of this encounter
--- OUTSIDE RECORDS SUMMARY | 2022-07-02 13:36 | XMS_ITS | Encounter Summary ---
:1950 Author Organization [place] Address [address] [place] [address] Care Team Providers Name Role Phone Elyse Paredes MD Primary Care Provider Encounter Details Date Type Department Care Team Description [facility] Provider, Histor ical Social History Tobacco Use Types Packs/Day Years Used Date Smoking Tobacco: Never Assessed Sex Assigned at Date Recorded Not on file documented as of this encounter Plan of Treatment Not on filedocumented as of this encounter Procedures Procedure Name Priority Date/Time Associated Diagnosis Comme nts XR KNEE PORT RIGHT Routine 11/19/2008 12:00 AM Re sults for this 1/2 VIEWS CDT procedure are i n the results section. documented in this encounter Results XR Knee Port Right 1/2 Views (11/19/2008 12:00 AM CDT) Anatomical Region Laterality Modality Knee, Right Knee Right Other Specimen (Source) Anatomical Location Collection Method / Collectio n Time Received Time / Laterality Volume Narrative 11/19/2008 12:00 AM CDT See Historical Hospital Medical Record f or documentation Procedure Note Provider, Historical - 12/31/2020Formatt ing of this note might be different from the original. See Historical Hospital Medical Record f or documentation Historical Provider IMG DIAGNOSTIC IMAGING ORDER LEXA documented in this encounter Visit Diagnoses Not on filedocumented in this encounter Care Teams Rug Dry Room Attendant Relationship Specialty Start Date End Date Elyse Paredes MD PCP - General Family Practice 12/22/13 04/21/22 [address] [place], [place] [phone] documented as of this encounter
--- OUTSIDE RECORDS SUMMARY | 2022-07-02 13:36 | XMS_ITS | Encounter Summary ---
:1950 Author Organization [place] Address [address] [place] [address] Care Team Providers Name Role Phone Elyse Paredes MD Primary Care Provider Encounter Details Date Type Department Care Team Description 12/23/2020 Records - [facility] CONVERSION Provider, Karthik raya Social History Tobacco Use Types Packs/Day Years Used Date Smoking Tobacco: Never Assessed Sex Assigned at Date Recorded Not on file documented as of this encounter Plan of Treatment Not on filedocumented as of this encounter Procedures Procedure Name Priority Date/Time Associated Diagnosis Comme nts LAB RESULT - HIM SCAN 12/23/2020 documented in this encounter Results LAB RESULT - HIM SCAN (12/23/2020) Narrative This result has an attachment that is no t available. Historical Provider NON-BEAKER LAB TESTING documented in this encounter Visit Diagnoses Not on filedocumented in this encounter Care Teams Mud Logger Relationship Specialty Start Date End Date Elyse Paredes MD PCP - General Family Practice 12/22/13 04/21/22 [address] [place] [address] documented as of this encounter
--- OUTSIDE RECORDS SUMMARY | 2022-07-02 13:36 | XMS_ITS | Encounter Summary ---
:1950 Author Organization [place] Address [address] [place] [address]. [place] [address] Care Team Providers Name Role Phone Elyse Paredes MD Primary Care Provider Reason for Visit Reason Comments Medication Refill Encounter Details Date Type Department Care Team Description 02/09/2020 Communication - [facility] Dagmar Kang, Medica tion Refill [facility] [place] [address] [facility] [place] [address] [place] [address] [phone] Social History Tobacco Use Types Packs/Day Years Used Date Smoking Tobacco: Never Assessed Sex Assigned at Date Recorded Not on file documented as of this encounter Plan of Treatment Not on filedocumented as of this encounter Visit Diagnoses Diagnosis Benign essential hypertension Essential hypertension, benign S/P TAVR (transcatheter aortic valve rep lacement) documented in this encounter Care Teams Line Servicer Relationship Specialty Start Date End Date Elyse Paredes MD PCP - General Family Practice 12/22/13 04/21/22 [address] [place] [address] documented as of this encounter
--- OUTSIDE RECORDS SUMMARY | 2022-07-02 13:36 | XMS_ITS | Encounter Summary ---
:1950 Author Organization [place] Address [address] [place] [address] Care Team Providers Name Role Phone Elyse Paredes MD Primary Care Provider Encounter Details Date Type Department Care Team Description 04/01/2020 Hospital Encounter [facility] Dagmar Kang, Cor onary artery disease involving cheesh-na coronary artery of cheesh-na heart, angina presence unspecified; [facility] S/P TAVR (transcatheter aortic valve rep lacement) [facility] [address] [place] [address] [address] [facility], [address] [place] [address] [id number] Social History Tobacco Use Types Packs/Day Years [...] tablets (75 mg total) by mouth daily. semaglutide (OZEMPIC) [SEMAGLUTIDE 0 10/06/2019 0.25 mg or 0.5 mg(2 (OZEMPIC) 0.25 MG mg/1.5 mL) PnIj OR 0.5 MG(2 MG/1.5 ML) PNIJ] as directed anastrozole (ARIMIDEX) 1 [ANASTROZOLE 0 9 04/22/2022 mg tablet (ARIMIDEX) 1 MG TABLET] Take 1 mg by mouth daily. BD INSULIN PEN NEEDLE UF [BD INSULIN PEN 3 201604/22/2022 SHORT 31 gauge x 16 NEEDLE UF SHORT 31 Ndle GAUGE X 16 NDLE] USE WITH TOUJEO AND VICTOZA BID [...] once a week. sertraline (ZOLOFT) 100 [SERTRALINE 0 05/20/2015 04/22/2022 [...] Date/Time Associated Diagnosis Comme nts ECHO COMPLETE Routine 04/01/2020 3:45 PM Coronary artery Resul ts for this CDT disease involving procedure are in the cheesh-na coronary results sect ion. artery of cheesh-na heart, angina presence unspeci fied S/P TAVR (transcatheter aortic valve replacement) documented in this encounter Results (ABNORMAL) Echocardiogram Complete (04/01/2020 3:45 PM CDT) [facility] gist Method Time Signature LV volume diastolic 75 46 - 106 04/01/2020 HE CARDIO LOGY cm3 4:24 PM CDT CONVERSION LV volume systolic 23 14 - 42 04/01/2020 HE CARDIOL OGY cm3 4:24 PM CDT CONVERSION INTERVENTRICULAR 1.1 (A) 0.6 - 0.9 04/01/2020 HE CARDIOLOG Y SEPTUM IN END cm 4:24 PM CDT CONVERSION DIASTOLE LVIDd 4.63 3.8 - 5.2 04/01/2020 HE CARDIOLOGY cm 4:24 PM CDT CONVERSION LVIDs 2.36 2.2 - 3.5 04/01/2020 HE CARDIOLOGY cm 4:24 PM CDT CONVERSION LVOT diam 1.8 cm 04/01/2020 HE CARDIOLOGY 4:24 PM CDT CONVERSION LEFT VENTRICULAR 3 mmHg 04/01/2020 HE CARDIOLOG Y OUTFLOW TRACT MEAN 4:24 PM CDT CONVERSIO N GRADIENT LVOT peak VTI 18.4 cm 04/01/2020 HE CARDIOLOGY 4:24 PM CDT CONVERSION LEFT VENTRICULAR 79.3 cm/s 04/01/2020 HE CARDIOLOG Y OUTFLOW TRACT MEAN 4:24 PM CDT CONVERSIO N VELOCITY LVOT peak oniel 132 cm/s 04/01/2020 HE CARDIOLOGY 4:24 PM CDT CONVERSION LEFT VENTRICULAR 7 mmHg 04/01/2020 HE CARDIOLOG Y OUTFLOW TRACT PEAK 4:24 PM CDT CONVERSIO N GRADIENT LV PWd 1.2 (A) 0.6 - 0.9 04/01/2020 CARDIOLOGY cm 4:24 PM CDT CONVERSION MV E'TISSUE ONIEL-LAT 4.87 cm/s 04/01/2020 HE CARDIO LOGY 4:24 PM CDT CONVERSION MV E' med oniel 3.9 cm/s 04/01/2020 CARDIOLOGY 4:24 PM CDT CONVERSION LA area 17.7 cm2 04/01/2020 CARDIOLOGY 4:24 PM CDT CONVERSION LA volume 44.9 mL 04/01/2020 CARDIOLOGY 4:24 PM CDT CONVERSION LA size 3.6 cm 04/01/2020 CARDIOLOGY 4:24 PM CDT CONVERSION AV mean oniel 214 cm/s 04/01/2020 CARDIOLOGY 4:24 PM CDT CONVERSION AV mean gradient 20 mmHg 04/01/2020 HE CARDIOLOG Y 4:24 PM CDT CONVERSION AV VTI 50.2 cm 04/01/2020 CARDIOLOGY 4:24 PM CDT CONVERSION AV peak oniel 272 cm/s 04/01/2020 CARDIOLOGY 4:24 PM CDT CONVERSION AO ascending 3.1 cm 04/01/2020 CARDIOLOGY 4:24 PM CDT CONVERSION MV decel time 211 ms 04/01/2020 CARDIOLOGY 4:24 PM CDT CONVERSION MV peak A oniel 112 cm/s 04/01/2020 CARDIOLOGY 4:24 PM CDT CONVERSION MV peak E oniel 80.9 cm/s 04/01/2020 HE CARDIOLOGY 4:24 PM CDT CONVERSION MV mean oniel 79.5 cm/s 04/01/2020 HE CARDIOLOGY 4:24 PM CDT CONVERSION MV mean gradient 3 mmHg 04/01/2020 HE CARDIOLOG Y 4:24 PM CDT CONVERSION MV VTI 24.9 cm 04/01/2020 HE CARDIOLOGY 4:24 PM CDT CONVERSION MV peak Velocity 113 cm/s 04/01/2020 HE CARDIOLOG Y 4:24 PM CDT CONVERSION TR peak oniel 235 cm/s 04/01/2020 HE CARDIOLOGY 4:24 PM CDT CONVERSION TAPSE 2 cm 04/01/2020 HE CARDIOLOGY 4:24 PM CDT CONVERSION IVS/PW RATIO 0.9 04/01/2020 HE CARDIOLOGY 4:24 PM CDT CONVERSION TRICUSPID 22.1 mmHg 04/01/2020 HE CARDIOLOGY REGURGITATION PEAK 4:24 PM CDT CONVERSIO N PRESSURE GRADIENT LV FS 49.0 28 - 44 % 04/01/2020 HE CARDIOLOGY 4:24 PM CDT CONVERSION Ejection Fraction 69 55 - 75 % 04/01/2020 HE CARDIOLO GY 4:24 PM CDT CONVERSION LV mass 194.9 g 04/01/2020 HE CARDIOLOGY 4:24 PM CDT CONVERSION AV area 0.9 cm2 04/01/2020 HE CARDIOLOGY 4:24 PM CDT CONVERSION AV DIM IND oniel 0.5 04/01/2020 HE CARDIOLOGY 4:24 PM CDT CONVERSION MV area cont eq 1.9 cm2 04/01/2020 HE CARDIOLOGY 4:24 PM CDT CONVERSION MV E/A Ratio 0.7 04/01/2020 HE CARDIOLOGY 4:24 PM CDT CONVERSION LVOT area 2.54 cm2 04/01/2020 HE CARDIOLOGY 4:24 PM CDT CONVERSION LVOT SV 46.8 cm3 04/01/2020 HE CARDIOLOGY 4:24 PM CDT CONVERSION AV peak gradient 29.6 mmHg 04/01/2020 HE CARDIOLOG Y 4:24 PM CDT CONVERSION MV peak gradient 5.1 mmHg 04/01/2020 HE CARDIOLOG Y 4:24 PM CDT CONVERSION MV med E/e' ratio 20.7 04/01/2020 HE CARDIOLO GY 4:24 PM CDT CONVERSION MV lat E/e' ratio 16.6 04/01/2020 HE CARDIOLO GY 4:24 PM CDT CONVERSION LA AREA 2 15.8 cm2 04/01/2020 HE CARDIOLOGY 4:24 PM CDT CONVERSION LA AREA 1 17.7 cm2 04/01/2020 HE CARDIOLOGY 4:24 PM CDT CONVERSION MV AVERAGE E/E' 18.4 cm/s 04/01/2020 HE CARDIOLOGY RATIO 4:24 PM CDT CONVERSION LEFT ATRIUM LENGTH 5.3 cm 04/01/2020 HE CARDIOL OGY 4:24 PM CDT CONVERSION AV DIMENSIONLESS 0.4 04/01/2020 HE CARDIOLOG Y INDEX VTI 4:24 PM CDT CONVERSION MV AREA VTI 1.88 cm2 04/01/2020 HE CARDIOLOGY 4:24 PM CDT CONVERSION Anatomical Region Laterality Modality Echocardiography Specimen (Source) Anatomical Collection Method Collection Time Re ceived Time Location / / Volume Laterality 04/01/2020 1:51 PM CDT Narrative 04/01/2020 4:24 PM CDT ?? Normal left ventricular size and systolic function.The calculated left ventricular ejection fraction is 69%. This represents a normal ejection fraction. Mild concentric hypertrophy noted. ?? The left ventricular wall motion is n ormal. ?? Normal right ventricular size and sys tolic function. ?? Aortic Valve: 23 mm Rigo 3 bioprost hetic valve present (mean gradient: 20 mm Hg, peak oniel: 2.7 m/sec). No aortic insufficiency. ?? When compared to the previous study d ated 07/13/2018, no significant change. Procedure Note Jesus Crawford, / Provider, Historical - 01/07/2021 ?? Normal left ventricular size and syst olic function.The calculated left ventricular ejection fraction is 69%. This represents a normal ejection fraction. Mild concentric hypertrophy noted. ?? The left ventricular wall motion is n ormal. ?? Normal right ventricular size and sys tolic function. ?? Aortic Valve: 23 mm Rigo 3 bioprost hetic valve present (mean gradient: 20 mm Hg, peak oniel: 2.7 m/sec). No aortic insufficiency. ?? When compared to the previous study d ated 07/13/2018, no significant change. Dagmar Kang MD CV ECHO ORDERABLES documented in this encounter Visit Diagnoses Diagnosis Coronary artery disease involving cheesh-na coronary artery of cheesh-na heart, angina presence unspecified S/P TAVR (transcatheter aortic valve rep lacement) documented in this encounter Care Teams Faro Dealer Relationship Specialty Start Date End Date Elyse Paredes MD PCP - General Family Practice 12/22/13 04/21/22 [address] [place], [place] [id number] documented as of this encounter
--- OUTSIDE RECORDS SUMMARY | 2022-07-02 13:36 | XMS_ITS | Encounter Summary ---
:1950 Author Organization [facility] Address [address] [place] [address] Care Team Providers Name Role Phone Elyse Paredes MD Primary Care Provider Encounter Details Date Type Department Care Team Description 10/10/2019 Anesthesia - [facility] Mariely Lee, [address] [address] [place] [address] [place] [id number] Social History Tobacco Use Types Packs/Day Years Used Date Smoking Tobacco: Never Assessed Sex Assigned at Date Recorded Not on file documented as of this encounter OR Notes Anesthesia Postprocedure Evaluation - Ines Schultz - 10/10/2019 11:45 AM CDT Patient: Marci Diaz Procedure(s): COLONOSCOPY Anesthesia type: MAC Patient location: Phase II Recovery Last vitals: Vitals Value Taken Time BP 106/58 10/10/2019 11:30 AM Temp 10/10/2019 11:45 AM Pulse 67 10/10/2019 11:35 AM Resp 16 10/10/2019 11:30 AM SpO2 96 % 10/10/2019 11:35 AM Vitals shown include unvalidated device data. Post vital signs: stable Level of consciousness: awake, alert and oriented Post-anesthesia pain: pain controlled Post-anesthesia nausea and vomiting: no Pulmonary: unassisted, return to baseline Cardiovascular: stable and blood pressure at baseline Hydration: adequate Anesthetic events: no QCDR Measures: ASA# 11 - Lori-op Cardiac Arrest: ASA11B - Patient did NOT experience unanticipated cardiac arrest ASA# 12 - Lori-op Mortality Rate: ASA12B - Patient did NOT ASA# 13 - PACU Re-Intubation Rate: NA - No ETT / LMA used for case ASA# 10 - Composite Anes Safety: ASA10A - No serious adverse event Additional Notes: Anesthesia Preprocedure Evaluation - Ines Schultz - 10/10/2019 9:33 AM CDT Anesthesia Evaluation Patient summary reviewed No history of anesthetic complications Airway Mallampati: III Neck ROM: full Pulmonary - normal exam (+) shortness of breath (chronic with exertion), sleep apnea on CPAP, , Cardiovascular Exercise tolerance: < 4 METS (+) hypertension, valvular problems/murmurs (s/p TAVR 2 years ago, h/o bicuspid AV and severe ) , CAD, CABG/stent (s/p stent), dysrhythmias (a.fib), CHF, , hypercholesterolemia, ECG reviewed Rhythm: regular Rate: normal, murmur Location:upper right sternal border Neuro/Psych (+) depression, Endo/Other (+) diabetes mellitus type 2 using insulin, obesity (BMI 52), GI/Hepatic/Renal (+) chronic renal disease CRI, (-) GERD Other findings: 07/13/18 Echo Summary 1. The left ventricle is normal in size. Left ventricular systolic performance is mildly hyperdynamic with a visually estimated ejection fraction of 65-70%. 2. There is a bio-prosthetic aortic valve (documented 23 mm Rigo 3 tissue valve). ? High normal aortic valve prosthesis metrics with a mean systolic gradient of 18 mmHg and ??a peakanterograde velocity of 2.9 m/sec (the slightly increased than expected mean gradient & peak velocity in part likely related to the mildly hyperdynamic left ventricular function). ? There is trace aortic insufficiency. 3. Normal right ventricular size and systolic performance. 4. There is mild left atrial enlargement. ?? When compared to the prior real-time echocardiogram dated 04 February 2018, the mean gradient obtained across the aortic valve is slightly lower on the current study (mean gradient on prior examination 24 mmHg and 18 mmHg on current study). Otherwise, there has been little appreciable interval change. Dental - normal exam Anesthesia Plan Planned anesthetic: MAC Will consult with GI regarding SBE prophylaxis ASA 4 Anesthetic plan and risks discussed with: patient Anesthesia plan special considerations: antiemetics, Post-op plan: routine recovery documented in this encounter Miscellaneous Notes Anesthesia Care Transfer Note - Mariely Lee - 10/10/2019 10:52 AM CDT Last vitals: Vitals: 10/10/19 1051 BP: 101/55 Pulse: 75 Resp: 16 Temp: SpO2: 95% Patient's level of consciousness is drowsy Spontaneous respirations: yes Maintains airway independently: yes Dentition unchanged: yes Oropharynx: oropharynx clear of all foreign objects QCDR Measures: ASA# 20 - Surgical Safety Checklist: WHO surgical safety checklist completed prior to induction PQRS# 430 - Adult PONV Prevention: 4558F - Pt received => 2 anti-emetic agents (different classes) preop & intraop ASA# 8 - Peds PONV Prevention: NA - Not pediatric patient, not GA or 2 or more risk factors NOT present PQRS# 424 - Lori-op Temp Management: NA - MAC anesthesia or case < 60 minutes PQRS# 426 - PACU Transfer Protocol:G9655 - Transfer of care checklist used ASA# 14 - Acute Post-op Pain: ASA14B - Patient did NOT experience pain >= 7 out of 10 documented in this encounter Plan of Treatment Not on filedocumented as of this encounter Visit Diagnoses Not on filedocumented in this encounter Care Teams Receptionist Doctor'S Office Relationship Specialty Start Date End Date Elyse Paredes MD PCP - General Family Practice 12/22/13 04/21/22 [address] [place] [address] documented as of this encounter
--- OUTSIDE RECORDS SUMMARY | 2022-07-02 13:36 | XMS_ITS | Encounter Summary ---
:1950 Author Organization [facility] Address [address] [place] [address] Care Team Providers Name Role Phone Elyse Paredes MD Primary Care Provider Reason for Visit Reason Comments Follow Up Encounter Details Date Type Department Care Team Description 12/29/2019 Office Visit - [facility] Dagmar Kang, Coronar y artery disease involving naknek coronary artery of naknek heart, angina presence unspecified; [facility] MD S/P TAVR (transcatheter aortic valve rep lacement); [place] [address] Paroxysmal atrial fibrillati on (H); [address], Essential hype rtension; [place] [address] [place] [address] [phone] Social History Tobacco Use Types Packs/Day Years Used Date Smoking Tobacco: Never Assessed Sex Assigned at Date Recorded Not on file documented as of this encounter Last Filed Vital Signs Vital Sign Reading Time Taken Comments Blood Pressure - - Pulse 80 12/29/2019 1:11 PM Patient repor curtis CDT Temperature - - Respiratory Rate - - Oxygen Saturation - - Inhaled Oxygen Concentration - - Weight 128.8 kg (284 lb) 12/29/2019 1:11 PM Patient rep orted CDT Height 157.5 cm (5' 2) 12/29/2019 1:11 PM CDT Body Mass Index 51.94 12/29/2019 1:11 PM CDT documented in this encounter Progress Notes Elyse Salazar R - 12/29/2019 1:30 PM CDT ROS: Shortness of breath, irregular heartbeat, heartburn, slight dizziness when standing. All other ROS is WNL. Dagmar Kang MD - 12/29/2019 1:30 PM CDT Images from the original note were not included. Progress Notes by Dagmar Kang MD at 12/29/2019 1:30 PM Author: Dagmar Kang MD Service: -- Author Type: Physician Filed: 12/29/2019 1:45 PM Encounter Date: 12/29/2019 Status: Signed Refinery Operator Crude Unit: Dagmar Kang MD (Physician) The patient has been notified of following: This telephone visit will be conducted via a call between you and your physician/provider. We have found that certain health care needs can be provided without the need for a physical exam. This service lets us provide the care you need with a phone conversation. If a prescription is necessary we cansend it directly to your pharmacy. If lab work is needed we can place an order for that and you can then stop by our lab to have the test done at a later time. If during the course of the call the physician/provider feels a telephone visit is not appropriate, you will not be charged for this service.Verbal consent has been obtained for this service by care sales team manager: HEART CARE PHONE ENCOUNTER The patient has chosen to have the visit conducted as a telephone visit, to reduce risk of exposure given the current status of Coronavirus in our community. This telephone visit is being conducted viaa call between the patient and physician/provider. Health care needs are being provided without a physical exam. Assessment/Recommendations Assessment: 1. Coronary artery disease, status post stenting of the mid left anterior descending in May 2017. Patient reports no anginal symptoms. Continue with medical management and aggressive risk factor modification. 2. Aortic valve stenosis, status post TAVR June 2017. Last echocardiogram in July 2018 demonstrated normal bioprosthetic valve function. I have recommended an echocardiogram later this year to reassess her valve. 3. Paroxysmal atrial fibrillation. Patient denies any obvious recurrent events. She remains on warfarin anticoagulation to minimize risks of thromboembolic events. 4. Breast carcinoma status post lumpectomy with adjuvant radiation therapy. Patient now on hormonal therapy. Plan: 1. Continue current medications 2. Plan echocardiogram early fall to reevaluate valve structure 3. Follow-up with me in 1 year or sooner if any worsening symptoms. I have reviewed the note as documented. This accurately captures the substance of my conversation with the patient. Total time of call between patient and provider was 15 minutes Start Time: 1323 Stop Time: 1338 History of Present Illness/Subjective Marci Diaz is a 69 y.o. female who is being evaluated via a billable telephone visit. Marci has a history of single-vessel coronary artery disease, status post stenting of the mid left anterior descending in May 2017 followed by catheter-based aortic valve replacement in Juneat year, paroxysmal atrial fibrillation who presents for a phone visit today due to the coronavirus pandemic. Overall, she states she has been doing well. She does endorse some symptoms of exertionaldyspnea although suspect this is related to being out of shape. She denies any orthopnea, PND or lower extremity edema. She specifically denies any exertional chest discomfort. She does have occasionalheartburn type symptoms which occurs if she eats pizza and lays down in bed. It always resolves withthe Pepcid. She does note occasional palpitations but does not note clear evidence of recurrent atrial fibrillation. Her last ECG in September of this year demonstrated normal sinus rhythm. I have reviewed and updated the patient's Past Medical History, Social History, Family History and Medication List. Physical Examination not performed given phone encounter Review of Systems ROS: Shortness of breath, irregular heartbeat, heartburn, slight dizziness when standing. All otherROS is WNL. Medical History Surgical History Family History Social History Past Medical History: Diagnosis Date ? Bicuspid aortic valve 2017 ? Cancer (H) 2018 breast cancer invasive ductal carcinoma ? CHF (congestive heart failure) (H) 2016 ? Coronary artery disease 05/2017 JEFFERSON,LAD (2 stents) ? Depression 2013 ? Diabetes mellitus (H) 1994 insulin ? DJD (degenerative joint disease) ? Dyspnea 2016 ? Hyperlipidemia 1994 ? Hypertension 1994 ? Kidney stones 2016 ? Morbid obesity (H) ? Nephrolithiasis 2017 renal cyst ? DEDE on CPAP 2008 ? Persistent atrial fibrillation 2016 ? Severe aortic stenosis 2016 ? Thyroid cyst ? Tooth abscess 2016 Past Surgical History: Procedure Laterality Date ? BREAST LUMPECTOMY Left 2019 completed radiation therapy ? CARDIAC CATHETERIZATION 05/12/2017 ? CARDIOVERSION 2017 ? COLONOSCOPY N/A 06/27/2019 Procedure: COLONOSCOPY; Surgeon: Jeni Barrera MD; Location: [facility] OR; Service: Gastroenterology ? COLONOSCOPY N/A 10/10/2019 Procedure: COLONOSCOPY; Surgeon: Falguni Mccain MD; Location: [facility] OR; Service: Gastroenterology ? CV CORONARY ANGIOGRAM N/A 05/12/2017 Procedure: Coronary Angiogram; Surgeon: Ankush Martinez MD; Location: [facility] [facility]; Service: ? CV TRANSFEMORAL TRANSCATHETER VALVE REPLACEMENT N/A 07/06/2017 Procedure: Transfemoral Transcatheter Aortic Valve Replacement; Surgeon: Ankush Martinez MD; Location: [facility]; Service: ? TOTAL KNEE ARTHROPLASTY Bilateral Family [...] file Gets together: Not on file Attends congregational service: Not on file Active member of [...] Outpatient Medications Medication Sig Dispense Refill ? amoxicillin (AMOXIL) 500 MG tablet Take 2,000 mg by mouth as needed (prior to dental work). ? anastrozole (ARIMIDEX) 1 mg tablet Take 1 mg by mouth daily. ? aspirin 81 MG EC tablet Take [...] mg total) by mouth daily. 90 tablet 1 ? CRESTOR 10 mg tablet Take 10 [...] ) 135 tablet 2 ? metoprolol succinate (TOPROL XL) 25 MG Take 1 tablet (25 mg total) by mouth daily. 90 tablet 1 ? semaglutide (OZEMPIC) 0.25 mg or 0.5 mg(2 mg/1.5 mL) PnIj as directed ? sertraline (ZOLOFT) 100 MG tablet Take 50 mg by mouth daily. ? warfarin (COUMADIN/JANTOVEN) 2.5 MG tablet TAKE 1 TABLET BY MOUTH EVERY DAY 90 tablet 0 ? warfarin (COUMADIN/JANTOVEN) 5 MG tablet TAKE 1 TABLET BY MOUTH DAILY. ADJUST DOSE BASED ON INR RESULTS DIRECTED 30 tablet 0 ? dulaglutide 0.75 mg/0.5 mL PnIj Inject 1.5 mg under the skin once a week. No current facility-administered medications for this visit. Allergies Allergen Reactions ? Lisinopril Cough ? Metformin Nausea And Vomiting ? Erythromycin Base Rash ? Ilosone Rash Lab Results Chemistry/lipid CBC Cardiac Enzymes/BNP/TSH/INR Lab Results Component Value Date CHOL 159 10/04/2019 HDL 53 10/04/2019 LDLCALC 70 10/04/2019 TRIG 182 (H) 10/04/2019 CREATININE 1.65 (H) 10/04/2019 BUN 25 (H) 10/04/2019 K 4.1 10/04/2019 NA 140 10/04/2019 CL 101 10/04/2019 CO2 29 10/04/2019 Lab Results Component Value Date WBC 7.3 08/05/2017 HGB 12.6 08/05/2017 HCT 37.9 08/05/2017 MCV 90 08/05/2017 PLT 157 08/05/2017 Lab Results Component Value Date BNP 12 10/04/2019 TSH 5.91 (H) 03/23/2018 INR 1.14 (H) 06/27/2019 Dagmar Kang documented in this encounter Plan of Treatment Not on filedocumented as of this encounter Visit Diagnoses Diagnosis Coronary artery disease involving naknek coronary artery of naknek heart, angina presence unspecified S/P TAVR (transcatheter aortic valve rep lacement) Paroxysmal atrial fibrillation (H) Atrial fibrillation Essential hypertension Unspecified essential hypertension Mixed hyperlipidemia documented in this encounter Care Teams Supervisor Rolling Room Relationship Specialty Start Date End Date Elyse Paredes MD PCP - General Family Practice 12/22/13 04/21/22 [address] [place] [address] documented as of this encounter
--- OUTSIDE RECORDS SUMMARY | 2022-07-02 13:36 | XMS_ITS | Encounter Summary ---
:1950 Author Organization [facility] Address [address] [place] [address]. [place] [address] Care Team Providers Name Role Phone Elyse Paredes MD Primary Care Provider Encounter Details Date Type Department Care Team Description 12/31/2020 Records - [facility] CONVERSION Provider, Histor ical Social History Tobacco Use Types Packs/Day Years Used Date Smoking Tobacco: Never Assessed Sex Assigned at Date Recorded Not on file documented as of this encounter Plan of Treatment Not on filedocumented as of this encounter Procedures Procedure Name Priority Date/Time Associated Diagnosis Comme nts XR CHEST 2 VIEWS Routine 11/29/2008 12:00 AM Resu lts for this CDT procedure are i n the results section. documented in this encounter Results XR Chest 2 Views (11/29/2008 12:00 AM CDT) Anatomical Region Laterality Modality Chest Digital Radiography Specimen (Source) Anatomical Location Collection Method / Collectio n Time Received Time / Laterality Volume Narrative 11/29/2008 12:00 AM CDT See Historical Hospital Medical Record f or documentation Procedure Note Provider, Historical - 12/31/2020Formatt ing of this note might be different from the original. See Historical Hospital Medical Record f or documentation Historical Provider IMG DIAGNOSTIC IMAGING ORDER [place] documented in this encounter Visit Diagnoses Not on filedocumented in this encounter Care Teams Inspector Machined Parts Relationship Specialty Start Date End Date Elyse Paredes MD PCP - General Family Practice 12/22/13 04/21/22 [address] [place], [place] [id number] documented as of this encounter
--- OUTSIDE RECORDS SUMMARY | 2022-07-02 13:36 | XMS_ITS | Encounter Summary ---
:1950 Author Organization [facility] Address [address] [place] [address] Care Team Providers Name Role Phone Elyse Paredes MD Primary Care Provider Encounter Details Date Type Department Care Team Description 10/04/2019 [facility] [address] [id number] [phone] Social History Tobacco Use Types Packs/Day Years Used Date Smoking Tobacco: Never Assessed Sex Assigned at Date Recorded Not on file documented as of this encounter Plan of Treatment Not on filedocumented as of this encounter Procedures Procedure Name Priority Date/Time Associated Comments Diagnosis B-TYPE NATRIURETIC Routine 10/04/2019 3:02 PM Res ults for this PEPTIDE ( EAST ONLY) [facility] proce dure are in the results section. LIPID PROFILE Routine 10/04/2019 3:02 PM Results for this [facility] procedure are i n the results section. COMPREHENSIVE Routine 10/04/2019 3:02 PM Results for this METABOLIC PANEL [facility] procedure ar e in the results section. documented in this encounter Results B-Type Natriuretic Peptide ( East Only) (10/04/2019 3:02 PM [facility]) P athologist Signature BNP 12 0 - 112 10/04/2019 [facility] pg/mL 7:41 PM [facility] Specimen Anatomical Collection Method Collection Time Receive d Time (Source) Location / / Volume Laterality Blood specimen 10/04/2019 3:02 PM 020 5:51 (specimen) [facility] PM [facility] Elyse Paredes MD LAB - BLOOD ORDERABLES Performing Organization Address [facility] Phon [place] [address] [address] [facility] (ABNORMAL) Lipid Profile (10/04/2019 3:02 PM [facility]) [facility] [employer] Method Time Signature Cholesterol 159 <=199 10/04/2019 [facility] mg/dL 7:58 PM [facility] Triglycerides 182 (H) <=149 10/04/2019 [facility] mg/dL 7:58 PM [facility] Direct Measure 53 >=50 10/04/2019 [facility] HDL mg/dL 7:58 PM [facility] LDL Cholesterol 70 <=129 10/04/2019 [facility] Calculated mg/dL 7:58 PM [facility] Patient Fasting > No 10/04/2019 HE[facility] 8hrs? 7:58 PM [facility] Specimen Anatomical Collection Method Collection Time Receive d Time (Source) Location / / Volume Laterality Blood specimen 10/04/2019 3:02 PM 020 6:39 (specimen) [facility] PM [facility] Elyse Paredes MD LAB - BLOOD ORDERABLES Performing Organization Address City/[facility] Phon [place] [address] [address] [facility] (ABNORMAL) Comprehensive metabolic panel (10/04/2019 3:02 PM [facility]) [employer] Method Time Signature Sodium 140 136 - 145 10/04/2019 [facility] mmol/L 7:58 PM [facility] Potassium 4.1 3.5 - 5.0 10/04/2019 [facility] mmol/L 7:58 PM [facility] Chloride 101 98 - 107 10/04/2019 [facility] mmol/L 7:58 PM [facility] Carbon Dioxide 29 22 - 31 10/04/2019 [facility] (CO2) mmol/L 7:58 PM [facility] Anion Gap 10 5 - 18 10/04/2019 [facility] mmol/L 7:58 PM [facility] Glucose 141 (H) 70 - 125 10/04/2019 [facility] mg/dL 7:58 PM [facility] Urea Nitrogen 25 (H) 8 - 22 10/04/2019 [facility] mg/dL 7:58 PM [facility] Creatinine 1.65 (H) 0.60 - 10/04/2019 [facility] 1.10 7:58 PM [facility] mg/dL [facility] GFR Estimate If 38 (L) >60 10/04/2019 HEALTH Black mL/min/1. 7:[address] LABORATORY GFR Estimate 31 (L) >60 10/04/2019 [facility] mL/min/1. 7:[address] LABORATORY Bilirubin Total 0.9 0.0 - 1.0 10/04/2019 [facility] mg/dL 7:58 PM [facility] Calcium 9.9 8.5 - 10/04/2019 [facility] 10.5 7:58 PM [facility] mg/dL [facility] Protein Total 7.2 6.0 - 8.0 10/04/2019 [facility] g/dL 7:58 PM [facility] Albumin 3.7 3.5 - 5.0 10/04/2019 [facility] g/dL 7:58 PM [facility] Alkaline 71 45 - 120 10/04/2019 [facility] Phosphatase U/L 7:58 PM [facility] AST 29 0 - 40 10/04/2019 [facility] U/L 7:58 PM [facility] ALT 23 0 - 45 10/04/2019 [facility] U/L 7:58 PM [facility] Specimen Anatomical Collection Method Collection Time Receive d Time (Source) Location / / Volume Laterality Blood specimen 10/04/2019 3:02 PM 020 6:39 (specimen) [facility] PM [facility] Narrative [facility] - 10/04/2019 7:58 PM [facility] Fasting Glucose reference range is 70-99 mg/dL per [place] [employer] (ADA) charles martinez. Elyse Paredes MD LAB - BLOOD ORDERABLES Performing Organization Address City/State/ZIP Code [place] [address] LABORATORY [facility] [address] [place] [address] documented in this encounter Visit Diagnoses Not on filedocumented in this encounter Care Teams Plate Setter Relationship Specialty Start Date End Date Elyse Paredes MD PCP - General Family Practice 12/22/13 04/21/22 [address] [place] [address] documented as of this encounter
--- OUTSIDE RECORDS SUMMARY | 2022-07-02 13:36 | XMS_ITS | Encounter Summary ---
:1950 Author Organization [facility] Address [address] [place] [address] Care Team Providers Name Role Phone Elyse Paredes MD Primary Care Provider Encounter Details Date Type Department Care Team Description 01/02/2021 Hospital Encounter [facility] Dagmar Kang, Cor onary artery [facility] Imaging disease involving [address] [facility] [place] coronary [place], [place] [address] artery of [place] [phone] [place], [place] heart, angina [phone] presence unspecified Social History Tobacco Use Types Packs/Day Years [...] PEN 0 2016 MINI 31 gauge x 10/15 NEEDLE UF MINI 31 Ndle GAUGE X 10/15 NDLE] USE 4-5 PER DAY UTD famotidine [...] Name Priority Date/Time Associated Diagnosis Comme nts NM MPI WITH Routine 01/02/2021 4:15 PM Coronary artery Result s for this LEXISCAN CDT disease involving procedure are in [place] coronary the results artery of [place] section. heart, angina presence unspecified documented in this encounter Results NM Lexiscan stress test (01/02/2021 4:15 PM CDT) Component Value Ref Test Analysis Performed At [facility] Range Method Time Signature Pharmacologic Lexiscan 01/02/2021 Protocol 4:38 PM CDT Test Type Pharmacological 01/02/2021 4:38 PM CDT Baseline HR 89 01/02/2021 4:38 PM CDT Baseline 155 01/02/2021 Systolic BP 4:38 PM CDT Baseline 73 01/02/2021 Diastolic BP 4:38 PM CDT Last Stress HR 106 01/02/2021 4:38 PM CDT Last Stress 122 01/02/2021 Systolic BP 4:38 PM CDT Last Stress 59 01/02/2021 Diastolic BP 4:38 PM CDT Target HR 152 01/02/2021 4:38 PM CDT PERCENT HR 85% 01/02/2021 4:[address] Deviation I 0.3mm 01/02/2021 Elevation 4:38 PM CDT Deviation Time aVL -0.2mm 01/02/2021 4:[address] Elevation I 0.5mm 01/02/2021 Amount 4:[address] Deviation aVR -0.5mm 01/02/2021 Amount he 4:38 PM CDT Final Resting BP 163/68 01/02/2021 4:38 PM CDT Final Resting HR 98 01/02/2021 4:38 PM CDT Max Treadmill 0.0 01/02/2021 Speed 4:38 PM CDT Max Treadmill 0.0 01/02/2021 Grade 4:38 PM CDT Peak Systolic BP 163/68 01/02/2021 4:38 PM CDT Peak Diastolic 161/76 01/02/2021 BP 4:38 PM CDT Max HR 109 01/02/2021 4:38 PM CDT Stress Phase Resting 01/02/2021 4:38 PM CDT Stress Resting MANUAL EVENT 01/02/2021 Pt Position 4:38 PM CDT Current HR 107 01/02/2021 4:38 PM CDT Current BP 124/53 01/02/2021 4:38 PM CDT Stress Phase Stress 01/02/2021 4:38 PM CDT Stage Minute EXE 00:00 01/02/2021 4:38 PM CDT Exercise Stage STAGE 2 01/02/2021 4:38 PM CDT Current HR 92 01/02/2021 4:38 PM CDT Current BP 155/73 01/02/2021 4:38 PM CDT Stress Phase Stress 01/02/2021 4:38 PM CDT Stage Minute EXE 01:00 01/02/2021 4:38 PM CDT Exercise Stage STAGE 3 01/02/2021 4:38 PM CDT Current HR 93 01/02/2021 4:38 PM CDT Current BP 155/73 01/02/2021 4:38 PM CDT Stress Phase Stress 01/02/2021 4:38 PM CDT Stage Minute EXE 02:00 01/02/2021 4:38 PM CDT Exercise Stage STAGE 4 01/02/2021 4:38 PM CDT Current HR 109 01/02/2021 4:38 PM CDT Current BP 155/73 01/02/2021 4:38 PM CDT Stress Phase Stress 01/02/2021 4:38 PM CDT Stage Minute EXE 02:01 01/02/2021 4:38 PM CDT Exercise Stage STAGE 4 01/02/2021 4:38 PM CDT Current HR 109 01/02/2021 4:38 PM CDT Current BP 124/53 01/02/2021 4:38 PM CDT Stress Phase Stress 01/02/2021 4:38 PM CDT Stage Minute EXE 02:35 01/02/2021 4:38 PM CDT Exercise Stage STAGE 4 01/02/2021 4:38 PM CDT Current HR 107 01/02/2021 4:38 PM CDT Current BP 124/53 01/02/2021 4:38 PM CDT Stress Phase Stress 01/02/2021 4:38 PM CDT Stage Minute EXE 02:43 01/02/2021 4:38 PM CDT Exercise Stage STAGE 4 01/02/2021 4:38 PM CDT Current HR 108 01/02/2021 4:38 PM CDT Current BP 122/59 01/02/2021 4:38 PM CDT Stress Phase Stress 01/02/2021 4:38 PM CDT Stage Minute EXE 03:00 01/02/2021 4:38 PM CDT Exercise Stage STAGE 5 01/02/2021 4:38 PM CDT Current HR 106 01/02/2021 4:38 PM CDT Current BP 122/59 01/02/2021 4:38 PM CDT Stress Phase Stress 01/02/2021 4:38 PM CDT Stage Minute EXE 04:00 01/02/2021 4:38 PM CDT Exercise Stage STAGE 6 01/02/2021 4:38 PM CDT Current HR 106 01/02/2021 4:38 PM CDT Current BP 122/59 01/02/2021 4:38 PM CDT Stress Phase Stress 01/02/2021 4:38 PM CDT Stage Minute EXE 04:00 01/02/2021 4:38 PM CDT Exercise Stage STAGE 6 01/02/2021 4:38 PM CDT Current HR 106 01/02/2021 4:38 PM CDT Current BP 122/59 01/02/2021 4:38 PM CDT Stress Phase Recovery 01/02/2021 4:38 PM CDT Stage Minute REC 00:59 01/02/2021 4:38 PM CDT Exercise Stage Recovery 01/02/2021 4:38 PM CDT Current HR 103 01/02/2021 4:38 PM CDT Current BP 122/59 01/02/2021 4:38 PM CDT Stress Phase Recovery 01/02/2021 4:38 PM CDT Stage Minute REC 01:04 01/02/2021 4:38 PM CDT Exercise Stage Recovery 01/02/2021 4:38 PM CDT Current HR 104 01/02/2021 4:38 PM CDT Current BP 161/76 01/02/2021 4:38 PM CDT Stress Phase Recovery 01/02/2021 4:38 PM CDT Stage Minute REC 01:59 01/02/2021 4:38 PM CDT Exercise Stage Recovery 01/02/2021 4:38 PM CDT Current HR 102 01/02/2021 4:38 PM CDT Current BP 161/76 01/02/2021 4:38 PM CDT Stress Phase Recovery 01/02/2021 4:38 PM CDT Stage Minute REC 02:33 01/02/2021 4:38 PM CDT Exercise Stage Recovery 01/02/2021 4:38 PM CDT Current HR 99 01/02/2021 4:38 PM CDT Current BP 163/68 01/02/2021 4:38 PM CDT Stress Phase Recovery 01/02/2021 4:38 PM CDT Stage Minute REC 02:59 01/02/2021 4:38 PM CDT Exercise Stage Recovery 01/02/2021 4:38 PM CDT Current HR 99 01/02/2021 4:38 PM CDT Current BP 163/68 01/02/2021 4:38 PM CDT Stress Phase Recovery 01/02/2021 4:38 PM CDT Stage Minute REC 03:59 01/02/2021 4:38 PM CDT Exercise Stage Recovery 01/02/2021 4:38 PM CDT Current HR 98 01/02/2021 4:38 PM CDT Current BP 163/68 01/02/2021 4:38 PM CDT Stress Phase Recovery 01/02/2021 4:38 PM CDT Stage Minute REC 04:01 01/02/2021 4:38 PM CDT Exercise Stage Recovery 01/02/2021 4:38 PM CDT Current HR 98 01/02/2021 4:38 PM CDT Current BP 163/68 01/02/2021 4:38 PM CDT Max Predicted HR 72 % 01/02/2021 4:38 PM CDT Rate Pressure 13,298.0 01/02/2021 Product 4:38 PM CDT Left Ventricular 70 % 01/02/2021 EF 4:38 PM CDT Anatomical Region Laterality Modality Chest Other Specimen (Source) Anatomical Collection Method Collection Time Re ceived Time Location / / Volume Laterality 01/02/2021 1:14 PM CDT Narrative 01/02/2021 4:38 PM CDT ?There is no prior study for comparison. ?Pharmacological regadenoson stress ECG is negative for inducible myocardial ischemia. ?Pharmacologic Regadenonson nuclear stress test is negative for inducible myocardial ischemia or infarction. ??There are reduced radiotracer in anterior wall from mid to distal segments on both str ess and rest images indicating most like ly breast attenuation, less likely previous myocar dial infarction because the patient's left ventricular wall motion is normal. ?Normal left ventricular size, wall thickness and wall motion. ??The calculated left ventricular ejection fraction is 70%. ?The patient is at a low risk of future cardiac ischemic events. Procedure Note Alistair Limon MD / Provider, Historical - 01/06/2021 ? ? There is no prior study for comparison. ? ? Pharmacological regadenoson stress ECG is negative for inducible myocardial ischemia. ? ? Pharmacologic Regadenonson nuclear stress test is negative for inducible myocardial ischemia or infarction. There are reduced radiotracer in anterior wall from mid to distal segments on both stress and rest images indicating most likely breast attenuation, less likely previous myocar dial infarction because the patient's left ventricular wall motion is normal. ? ? Normal left ventricular size, wall thickness and wall motion. The calculated left ventricular ejection fraction is 70%. ? ? The patient is at a low risk of future cardiac ischemic events. Dagmar Kang MD IMG NM ORDERABLES documented in this encounter Visit Diagnoses Diagnosis Coronary artery disease involving [place] coronary artery of [place] heart, angina presence unspecified documented in this encounter Care Teams School Services Officer Relationship Specialty Start Date End Date Elyse Paredes MD PCP - General Family Practice 12/22/13 04/21/22 [address] [place] [address] documented as of this encounter
--- OUTSIDE RECORDS SUMMARY | 2022-07-02 13:36 | XMS_ITS | Encounter Summary ---
:1950 Author Organization [facility] Address [address] [place] [address] Care Team Providers Name Role Phone Elyse Paredes MD Primary Care Provider Reason for Visit Reason Comments Medication Refill metoprolol succ Encounter Details Date Type Department Care Team Description 08/14/2019 Communication - [facility] Gabrielle Golden tion Refill [facility] M, RN (metoprolol suc c) [place] [address] [facility] [address] [place] [phone] Social History Tobacco Use Types Packs/Day Years Used Date Smoking Tobacco: Never Assessed Sex Assigned at Date Recorded Not on file documented as of this encounter Plan of Treatment Not on filedocumented as of this encounter Visit Diagnoses Diagnosis S/P TAVR (transcatheter aortic valve rep lacement) documented in this encounter Care Teams Instrumentation Technologist Relationship Specialty Start Date End Date Elyse Paredes MD PCP - General Family Practice 12/22/13 04/21/22 [address] [place] [address] documented as of this encounter
--- OUTSIDE RECORDS SUMMARY | 2022-07-02 13:36 | XMS_ITS | Encounter Summary ---
:1950 Author Organization [facility] Address [address] [place] [address]. [place] [address] Care Team Providers Name Role Phone Elyse Paredes MD Primary Care Provider Encounter Details Date Type Department Care Team Description 12/24/2020 Records - [facility] CONVERSION Provider, Histor ical Social History Tobacco Use Types Packs/Day Years Used Date Smoking Tobacco: Never Assessed Sex Assigned at Date Recorded Not on file documented as of this encounter Plan of Treatment Not on filedocumented as of this encounter Procedures Procedure Name Priority Date/Time Associated Diagnosis Comme nts MAMMO MISC(FCIS) Routine 09/13/2000 12:00 AM Resu lts for this ORDER RECORD RETRIEVAL SPECIALIST procedure are i n the results section. documented in this encounter Results Mammo Misc Order (09/13/2000 12:00 AM RECORD RETRIEVAL SPECIALIST) Anatomical Region Laterality Modality Other Specimen (Source) Anatomical Location Collection Method / Collectio n Time Received Time / Laterality Volume Narrative 09/13/2000 12:00 AM RECORD RETRIEVAL SPECIALIST See Historical Hospital Medical Record f or documentation Procedure Note Provider, Historical - 12/24/2020Formatt ing of this note might be different from the original. See Historical Hospital Medical Record f or documentation Historical Provider IMG MAMMOGRAPHY ORDERABLES documented in this encounter Visit Diagnoses Not on filedocumented in this encounter Care Teams Tool Lapper Hand Relationship Specialty Start Date End Date Elyse Paredes MD PCP - General Family Practice 12/22/13 04/21/22 [address] [place], [place] [id number] documented as of this encounter
--- OUTSIDE RECORDS SUMMARY | 2022-07-02 13:36 | XMS_ITS | Encounter Summary ---
:1950 Author Organization [facility] Address [address] [place] [id number] Care Team Providers Name Role Phone Elyse Paredes MD Primary Care Provider Reason for Visit Reason Comments Shoulder Pain Encounter Details Date Type Department Care Team Description 06/05/2020 Hospital Encounter [facility] Buddy South Acute pain of left DEPARTMENT D, DO shoulder [address] [id number] [phone] Social History Tobacco Use Types Packs/Day Years Used Date Smoking Tobacco: Never Assessed Sex Assigned at Date Recorded Not on file documented as of this encounter Last Filed Vital Signs Vital Sign Reading Time Taken Comments Blood Pressure - - Pulse - - Temperature - - Respiratory Rate - - Oxygen Saturation - - Inhaled Oxygen Concentration - - Weight 124.3 kg (274 lb) 06/05/2020 10:22 AM [facility] Height 157.5 cm (5' 2) 06/05/2020 10:22 AM [facility] Body Mass Index 50.12 06/05/2020 10:22 AM [facility] documented in this encounter Medications at Time [...] RESULTS DIRECTED documented as of this encounter ED Notes Liliane Moctezuma RN - 06/05/2020 11:34 AM CST Pt back from xray. [facility] Liliane Moctezuma RN - 06/05/2020 11:13 AM CST Pt to xray. [facility] Buddy South MD - 06/05/2020 10:37 AM [facility]ST EMERGENCY DEPARTMENT ENCOUNTER NAME: Marci Diaz AGE: 70 y.o. female DATE OF : 1950 EVALUATION DATE & TIME: 06/05/2020 10:24 AM PCP: Elyse Paredes MD ED PROVIDER: Buddy South, DO Chief Complaint Patient presents with ??? Shoulder Pain FINAL IMPRESSION: 1. Acute pain of left shoulder ED COURSE & MEDICAL DECISION MAKING: Pertinent Labs & Imaging studies reviewed. (See chart for details) 70 y.o. female presents to the Emergency Department for evaluation of pain to the left shoulder. Patient has reproducible pain with palpation of the parascapular muscles of her left shoulder. Patient does have a cardiac history so will do cardiac work-up. She does endorse that her pain is worse when she touches the area, does get better after she moves have her a few minutes. Denies any chest pain, exertional chest pain or dyspnea. 10:37 AM I met with the patient, obtained history, performed an initial exam, and discussed options and plan for treatment here in the ED. PPE worn during patient evaluation: N 95 mask, head cover, eye protection 1155-discussed with patient that her labs are unremarkable, her INR is therapeutic, shoulder x-ray chest x-ray negative for any acute pathology. Pain is improved after meds. Will discharge home, she roger warfarin so we will not discharge home with anti-inflammatory, recommend follow-up with her primary doctor. At the conclusion of the encounter I discussed the results of all of the tests and the disposition. The questions were answered. The patient or family acknowledged understanding and was agreeable with the care plan. 0 minutes of critical care time MEDICATIONS GIVEN IN THE EMERGENCY: Medications sodium chloride flush 10 mL (NS) (has no administration in time range) ketorolac injection 15 mg (TORADOL) (15 mg Intravenous Given 06/05/20 1100) NEW PRESCRIPTIONS STARTED AT TODAY'S ER VISIT Current Discharge Medication List CONTINUE these medications which have NOT CHANGED Details amoxicillin (AMOXIL) 500 MG tablet Take 2,000 mg by mouth as needed (prior to dental work). anastrozole (ARIMIDEX) 1 mg tablet Take 1 mg by mouth daily. aspirin 81 MG EC tablet Take 1 tablet (81 mg total) by mouth daily. Refills: 0 Associated Diagnoses: S/P TAVR (transcatheter aortic valve replacement) BD INSULIN PEN NEEDLE UF MINI 31 gauge x 3/16 Ndle USE 4-5 PER DAY UTD Refills: 0 BD INSULIN PEN NEEDLE UF SHORT 31 gauge x 5/16 Ndle USE WITH TOUJEO AND VICTOZA BID Refills: 3 celecoxib (CELEBREX) 200 MG capsule Take 200 mg by mouth daily. chlorthalidone (HYGROTEN) 25 MG tablet Take 1 tablet (25 mg total) by mouth daily. Qty: 90 tablet, Refills: 2 Associated Diagnoses: S/P TAVR (transcatheter aortic valve replacement) CRESTOR 10 mg tablet Take 10 mg by mouth daily. dulaglutide 0.75 mg/0.5 mL PnIj Inject 1.5 mg under the skin once a week. famotidine (FOR PEPCID) 10 MG tablet Take 10 mg by mouth as needed. insulin lispro (HUMALOG) 100 unit/mL injection Inject 6-10 Units under the skin 3 (three) times a day before meals. LANTUS SOLOSTAR 100 unit/mL (3 mL) pen 60 Units at bedtime. Last night 28u losartan (COZAAR) 50 MG tablet Take 1.5 tablets (75 mg total) by mouth daily. Qty: 135 tablet, Refills: 2 Associated Diagnoses: Benign essential hypertension metoprolol succinate (TOPROL-XL) 25 MG TAKE 1 TABLET(25 MG) BY MOUTH DAILY Qty: 90 tablet, Refills: 2 Associated Diagnoses: S/P TAVR (transcatheter aortic valve replacement) semaglutide (OZEMPIC) 0.25 mg or 0.5 mg(2 mg/1.5 mL) PnIj as directed sertraline (ZOLOFT) 100 MG tablet Take 50 mg by mouth daily. !! warfarin (COUMADIN/JANTOVEN) 2.5 MG tablet TAKE 1 TABLET BY MOUTH EVERY DAY Qty: 90 tablet, Refills: 0 Associated Diagnoses: Paroxysmal atrial fibrillation (H) !! warfarin (COUMADIN/JANTOVEN) 5 MG tablet TAKE 1 TABLET BY MOUTH DAILY. ADJUST DOSE BASED ON INR RESULTS DIRECTED Qty: 30 tablet, Refills: 0 Associated Diagnoses: Paroxysmal atrial fibrillation (H) !! - Potential duplicate medications found. Please discuss with provider. HPI Marci Diaz is a 70 y.o. female with a pertinent history of severe aortic stenosis, DMT2, HLD, HTN,morbid obesity, CHF, persistent a fib, breast cancer, s/p breast lumpectomy, and kidney stones who presents to this ED for evaluation of left shoulder pain. Patient reports constant, sharp, stabbing, 8/10 left shoulder pain which originates in her left shoulder blade and radiates to her left elbow. No significant relief with 2 doses of extra strength Tylenol. Reports some relief when walking around, and provocation of pain with lying down. Patient reported her symptoms to her PCP and her social media assistant, and was instructed by both to present here. Also notes increased shortness of breath over the last month, and ongoing fatigue which comes in 2-3 day waves. Denies redness, warmth, swelling around the shoulder. Further denies chest pain, fever, cough, nausea, vomiting, diarrhea, or any other pertinent complaints at this time. REVIEW OF SYSTEMS Review of Systems Constitutional: Positive for fatigue. Negative for activity change, appetite change and fever. HENT: Negative for congestion, dental problem, drooling, ear pain, rhinorrhea, sinus pain and sore throat. Eyes: Negative for pain and redness. Respiratory: Positive for shortness of breath. Negative for cough, wheezing and stridor. Cardiovascular: Negative for chest pain, palpitations and leg swelling. Gastrointestinal: Negative for abdominal distention, abdominal pain, blood in stool, diarrhea, nausea and vomiting. Genitourinary: Negative for decreased urine volume, dysuria, flank pain and urgency. Musculoskeletal: Positive for arthralgias (left shoulder, radiates to left elbow). Negative for backpain. Skin: Negative for pallor and rash. Neurological: Negative for dizziness, seizures, speech difficulty, weakness, light-headedness, numbness and headaches. Psychiatric/Behavioral: Negative for behavioral problems. All other systems reviewed and are negative. PAST MEDICAL HISTORY: Past Medical History: Diagnosis Date ??? Bicuspid aortic valve 2017 ??? Cancer (H) 2018 breast cancer invasive ductal carcinoma ??? CHF (congestive heart failure) (H) 2016 ??? Coronary artery disease 05/2017 JEFFERSON,LAD (2 stents) ??? Depression 2014 ??? Diabetes mellitus (H) 1994 insulin ??? DJD (degenerative joint disease) ??? Dyspnea 2017 ??? Hyperlipidemia 1995 ??? Hypertension 1995 ??? Kidney stones 2017 ??? Morbid obesity (H) ??? Nephrolithiasis 2017 renal cyst ??? DEDE on CPAP 2009 ??? Persistent atrial fibrillation (H) 2016 ??? Severe aortic stenosis 2017 ??? Thyroid cyst ??? Tooth abscess 2016 PAST SURGICAL HISTORY: Past Surgical History: Procedure Laterality Date ??? BREAST LUMPECTOMY Left 2018 completed radiation therapy ??? CARDIAC CATHETERIZATION 05/12/2017 ??? CARDIOVERSION 2017 ??? COLONOSCOPY N/A 06/27/2019 Procedure: COLONOSCOPY; Surgeon: Jeni Barrera MD; Location: [facility] OR; Service: Gastroenterology ??? COLONOSCOPY N/A 10/10/2019 Procedure: COLONOSCOPY; Surgeon: Falguni Mccain MD; Location: [facility] Main OR; Service: Gastroenterology ??? CV CORONARY ANGIOGRAM N/A 05/12/2017 Procedure: Coronary Angiogram; Surgeon: Ankush Martinez MD; Location: [facility] Programming Development Project Manager; Service: ??? CV TRANSFEMORAL TRANSCATHETER VALVE REPLACEMENT N/A 07/06/2017 Procedure: Transfemoral Transcatheter Aortic Valve Replacement; Surgeon: Ankush Martinez MD; Location: [facility] Programming Development Project Manager; Service: ??? TOTAL KNEE ARTHROPLASTY Bilateral CURRENT MEDICATIONS: No current facility-administered medications on file prior to encounter. Current Outpatient Medications on File Prior to Encounter Medication Sig ??? amoxicillin (AMOXIL) 500 MG tablet Take 2,000 mg by mouth as needed (prior to dental work). ??? anastrozole (ARIMIDEX) 1 mg tablet Take 1 mg by mouth daily. ??? aspirin 81 MG EC tablet Take 1 tablet (81 mg total) by mouth daily. ??? BD INSULIN PEN NEEDLE UF MINI 31 gauge x 10/15 Ndle USE 4-5 PER DAY UTD ??? BD INSULIN PEN NEEDLE UF SHORT 31 gauge x 12/15 Ndle USE WITH TOUJEO AND VICTOZA BID ??? celecoxib (CELEBREX) 200 MG capsule Take 200 mg by mouth daily. ??? chlorthalidone (HYGROTEN) 25 MG tablet Take 1 tablet (25 mg total) by mouth daily. ??? CRESTOR 10 mg tablet Take 10 mg by mouth daily. ??? dulaglutide 0.75 mg/0.5 mL PnIj Inject 1.5 mg under the skin once a week. ??? famotidine (FOR PEPCID) 10 MG tablet Take 10 mg by mouth as needed. ??? insulin lispro (HUMALOG) 100 unit/mL injection Inject 6-10 Units under the skin 3 (three) times a day before meals. ??? LANTUS SOLOSTAR 100 unit/mL (3 mL) pen 60 Units at bedtime. Last night 28u ??? losartan (COZAAR) 50 MG tablet Take 1.5 tablets (75 mg total) by mouth daily. ??? metoprolol succinate (TOPROL-XL) 25 MG TAKE 1 TABLET(25 MG) BY MOUTH DAILY ??? semaglutide (OZEMPIC) 0.25 mg or 0.5 mg(2 mg/1.5 mL) PnIj as directed ??? sertraline (ZOLOFT) 100 MG tablet Take 50 mg by mouth daily. ??? warfarin (COUMADIN/JANTOVEN) 2.5 MG tablet TAKE 1 TABLET BY MOUTH EVERY DAY ??? warfarin (COUMADIN/JANTOVEN) 5 MG tablet TAKE 1 TABLET BY MOUTH DAILY. ADJUST DOSE BASED ON INR RESULTS DIRECTED ALLERGIES: Allergies Allergen Reactions ??? Lisinopril Cough ??? Metformin Nausea And Vomiting ??? Erythromycin Base Rash ??? Ilosone Rash FAMILY HISTORY: Family History Problem Relation Age of Onset ??? Diabetes Father ??? Heart disease Father ??? Esophageal cancer Brother ??? Urolithiasis Neg Hx ??? Clotting disorder Neg Hx ??? Gout Neg Hx SOCIAL HISTORY: Social History Socioeconomic History ??? Marital status: Spouse name: None ??? Number of children: None ??? Years of education: None ??? Highest education level: None Occupational History ??? 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 Financial resource strain: None ??? Food insecurity Worry: None Inability: None ??? Transportation needs Medical: None Non-medical: None Tobacco Use ??? Smoking status: Never Smoker ??? Smokeless tobacco: Never Used Substance and Sexual Activity ??? Alcohol use: No ??? Drug use: No ??? Sexual activity: Not Currently Lifestyle ??? Physical activity Days per week: None Minutes per session: None ??? Stress: None Relationships ??? Social connections Talks on phone: None Gets together: None Attends yazdanism service: None Active member of club or organization: None Attends meetings of clubs or organizations: None Relationship status: None ??? Intimate partner violence Fear of current or ex partner: None Emotionally abused: None Physically abused: None Forced sexual activity: None Other Topics Concern ??? None Social History Narrative ??? None VITALS: Patient Vitals for the past 24 hrs: BP Temp Temp src Pulse Resp SpO2 Height Weight 06/05/20 1022 (!) 188/79 97.4 ??F (36.3 ??C) Oral 92 16 97 % 5' 2 (1.575 m) (!) 274 lb (124.3 kg) PHYSICAL EXAM Physical Exam Constitutional: She is oriented to person, place, and time. She appears well- developed and well-nourished. No distress. HENT: Head: Normocephalic and atraumatic. Mouth/Throat: Oropharynx is clear and moist. No oropharyngeal exudate. Eyes: Pupils are equal, round, and reactive to light. Conjunctivae and EOM are normal. Neck: Normal range of motion. Neck supple. No tracheal deviation present. Cardiovascular: Normal rate, regular rhythm, normal heart sounds and intact distal pulses. No murmur heard. Pulmonary/Chest: Effort normal and breath sounds normal. No stridor. No respiratory distress. She has no wheezes. She has no rales. She exhibits no tenderness. Abdominal: Soft. Bowel sounds are normal. She exhibits no distension. There is no abdominal tenderness. There is no rebound and no guarding. Musculoskeletal: Normal range of motion. General: No deformity or edema. Left shoulder: She exhibits pain (with palpation of rhomboid muscles of left side just medial to scapula). Neurological: She is alert and oriented to person, place, and time. She displays normal reflexes. Nocranial nerve deficit. She exhibits normal muscle tone. Coordination normal. Skin: Skin is warm and dry. No rash noted. She is not diaphoretic. No erythema. Psychiatric: She has a normal mood and affect. Her behavior is normal. Nursing note and vitals reviewed. LAB: All pertinent labs reviewed and interpreted. Results for orders placed or performed during the hospital encounter of 06/05/20 APTT(PTT) Result Value Ref Range PTT 30 24 - 37 seconds INR Result Value Ref Range INR 2.10 (H) 0.90 - 1.10 Troponin I Result Value Ref Range Troponin I 0.02 0.00 - 0.29 ng/mL Basic Metabolic Panel Result Value Ref Range Sodium 135 (L) 136 - 145 mmol/L Potassium 3.6 3.5 - 5.0 mmol/L Chloride 99 98 - 107 mmol/L CO2 27 22 - 31 mmol/L Anion Gap, Calculation 9 5 - 18 mmol/L Glucose 239 (H) 70 - 125 mg/dL Calcium 9.7 8.5 - 10.5 mg/dL BUN 24 (H) 8 - 22 mg/dL Creatinine 1.56 (H) 0.60 - 1.10 mg/dL GFR MDRD Af Amer 40 (L) >60 mL/min/1.73m2 GFR MDRD Non Af Amer 33 (L) >60 mL/min/1.73m2 HM1 (CBC with Diff) Result Value Ref Range WBC 7.6 4.0 - 11.0 thou/uL RBC 4.08 3.80 - 5.40 mill/uL Hemoglobin 13.5 12.0 - 16.0 g/dL Hematocrit 38.5 35.0 - 47.0 % MCV 94 80 - 100 fL MCH 33.1 27.0 - 34.0 pg MCHC 35.1 32.0 - 36.0 g/dL RDW 13.7 11.0 - 14.5 % Platelets 190 140 - 440 thou/uL MPV 10.5 8.5 - 12.5 fL Neutrophils % 66 50 - 70 % Lymphocytes % 23 20 - 40 % Monocytes % 8 2 - 10 % Eosinophils % 2 0 - 6 % Basophils % 1 0 - 2 % Immature Granulocyte % 0 <=0 % Neutrophils Absolute 5.0 2.0 - 7.7 thou/uL Lymphocytes Absolute 1.8 0.8 - 4.4 thou/uL Monocytes Absolute 0.6 0.0 - 0.9 thou/uL Eosinophils Absolute 0.2 0.0 - 0.4 thou/uL Basophils Absolute 0.1 0.0 - 0.2 thou/uL Immature Granulocyte Absolute 0.0 <=0.0 thou/uL RADIOLOGY: Reviewed all pertinent imaging. Please see official radiology report. Xr Chest 2 Views Result Date: 06/05/2020 EXAM: XR CHEST 2 VIEWS LOCATION: [facility] DATE/TIME: 06/05/2020 11:25 AMINDICATION: pain COMPARISON: 07/07/2017 No pleural fluid or pneumothorax. No airspace disease or edema. Normal size of the heart. Xr Shoulder Left 2 Or More Vws Result Date: 06/05/2020 EXAM: XR SHOULDER LEFT 2 OR MORE VWS LOCATION: [facility] DATE/TIME: 06/05/2020 11:25 AM INDICATION: Shoulder pain COMPARISON: None. Normal glenohumeral and acromioclavicular alignment. There are degenerative osteophytes along the margins of the humeral head consistent with osteoarthrosis. There is mild subchondral sclerosis of the humeral head but no subchondral cyst formation or contour abnormality of the humeral head articular surface. No acute fracture or underlying bone lesion identified. A minute calcification is present near the greater tuberosity likely due to chronic rotator cuff pathology. ECG 12 lead nursing unit performed Date/Time: 06/05/2020 10:56 AM Performed by: Buddy South DO Authorized by: Buddy South DO Interpreted by ED physician Comparison: compared with previous ECG Similar to previous ECG Rhythm: sinus rhythm Rate: normal Conduction: conduction normal ST Segments: ST segments normal Clinical impression: normal ECG Juan Arnett, am serving as a scribe to document services personally performed by Dr. South based onmy observation and the provider's statements to me. Buddy Arnett DO attest that Juan German is acting in a scribe capacity, has observed my performance of the services and has documented them in accordance with my direction. Buddy South DO Emergency Medicine [facility] EMERGENCY DEPARTMENT [address] [place] [id number] Dept: [phone] Loc: [phone] Buddy South DO 06/05/20 1516 [facility] Alessandra Bartlett, RN - 06/05/2020 10:20 AM CST Developed left shoulder pain yesterday and does go down her left arm. No chest pain. Has felt exhausted. Was seen 2 months ago and had a echo done. [facility] documented in this encounter Plan of Treatment Not on filedocumented as of this encounter Procedures Procedure Name Priority Date/Time Associated Comments Diagnosis XR SHOULDER LEFT 2 Routine 06/05/2020 11:25 Resul ts for this VIEWS AM [facility] procedure are i n the results section. XR CHEST 2 VIEWS Routine 06/05/2020 11:25 Results for this AM [facility] procedure are i n the results section. EXTRA RED TOP TUBE STAT 06/05/2020 10:53 AM [facility] CBC WITH PLATELETS AND STAT 06/05/2020 10:53 R esults for this DIFFERENTIAL AM [facility] procedure are i n the results section. TROPONIN I STAT 06/05/2020 10:53 Results for this AM [facility] procedure are i n the results section. INR STAT 06/05/2020 10:53 Results for this AM [facility] procedure are i n the results section. PARTIAL THROMBOPLASTIN STAT 06/05/2020 10:53 R esults for this TIME AM [facility] procedure are i n the results section. BASIC METABOLIC PANEL STAT 06/05/2020 10:53 Re sults for this AM [facility] procedure are i n the results section. EKG 12-LEAD, TRACING STAT 06/05/2020 10:40 Res ults for this ONLY AM [facility] procedure are i n the results section. documented in this encounter Results XR Shoulder Left 2 Views (06/05/2020 11:25 AM [facility]) Anatomical Region Laterality Modality Shoulder, Chest, Arm Left Other Specimen (Source) Anatomical Location Collection Method / Collectio n Time Received Time / Laterality Volume Impressions 06/05/2020 11:43 AM [facility] Normal glenohumeral and acromioclavicula r alignment. There are degenerative osteophytes along the margins of the humeral head consistent with osteoarthrosis. There is mild subchondral sclerosis of the h umeral head but no subchondral cyst form ation or contour abnormality of the humeral head articular surface. No acute fracture or underlying bone lesion identified. A minute calcification is present near the greater tuberosity likely due to chronic rotator cuff pathology. Narrative 06/05/2020 11:43 AM [facility] EXAM: XR SHOULDER LEFT 2 OR MORE VWS LOCATION: [facility] DATE/TIME: 06/05/2020 11:25 AM INDICATION: Shoulder pain COMPARISON: None. Procedure Note Holden Acevedo MD - 01/09/2021Format ting of this note might be different from the original. EXAM: XR SHOULDER LEFT 2 OR MORE VWS LOCATION: [facility] DATE/TIME: 06/05/2020 11:25 AM INDICATION: Shoulder pain COMPARISON: None. IMPRESSION: Normal glenohumeral and acromioclavicula r alignment. There are degenerative osteophytes along the margins of the humeral head consistent with osteoarthrosis. There is mild subchondral sclerosis of the humeral head but no subchondral cyst formation o r contour abnormality of the humeral head articular surface. No acute fracture or underlying bone lesion identified. A minute calcification is present near the greater tuberosity likely due to chronic rotator cuff pathology. Buddy South DO IMG DIAGNOSTIC IMAGING ORDER [place] XR Chest 2 Views (06/05/2020 11:25 AM [facility]) Anatomical Region Laterality Modality Chest Digital Radiography Specimen (Source) Anatomical Location Collection Method / Collectio n Time Received Time / Laterality Volume Impressions 06/05/2020 11:31 AM [facility] No pleural fluid or pneumothorax. No air space disease or edema. Normal size of the heart. Narrative 06/05/2020 11:31 AM [facility] EXAM: XR CHEST 2 VIEWS LOCATION: [facility] DATE/TIME: 06/05/2020 11:25 AM INDICATION: pain COMPARISON: 07/07/2017 Procedure Note Olu Bryson MD - 01/09/2021Formatti ng of this note might be different from the original. EXAM: XR CHEST 2 VIEWS LOCATION: [facility] DATE/TIME: 06/05/2020 11:25 AM INDICATION: pain COMPARISON: 07/07/2017 IMPRESSION: No pleural fluid or pneumothorax. No air space disease or edema. Normal size of the heart. Buddy South DO IMG DIAGNOSTIC IMAGING ORDER [place] EXTRA RED TOP TUBE (06/05/2020 10:53 AM [facility]) Specimen Anatomical Collection Method Collection Time Receive d Time (Source) Location / / Volume Laterality Blood specimen VAD(CVC, PICC) / 06/05/2020 10:53 06/05 (specimen) Unknown AM [facility] 10:59 AM [facility] Buddy South DO LAB - BLOOD ORDERABLES CBC WITH PLATELETS AND DIFFERENTIAL (06/05/2020 10:53 AM [facility]) Analysis Performed At Patho logist Time Signature WBC 7.6 4.0 - 11.0 06/05/2020 [facility]/uL 11:01 AM [facility] RBC Count 4.08 3.80 - 06/05/2020 [facility] 5.40 11:01 AM [facility] [place] Hemoglobin 13.5 12.0 - 06/05/2020 HEALTH 16.0 g/dL 11:01 AM [facility] Hematocrit 38.5 35.0 - 06/05/2020 HEALTH 47.0 % 11:01 AM [facility] MCV 94 80 - 100 06/05/2020 HEALTH fL 11:01 AM [facility] MCH 33.1 27.0 - 06/05/2020 HEALTH 34.0 pg 11:01 AM [facility] MCHC 35.1 32.0 - 06/05/2020 HEALTH 36.0 g/dL 11:01 AM [facility] RDW 13.7 11.0 - 06/05/2020 HEALTH 14.5 % 11:01 AM [facility]UP[facility]ITAL[facility]TechNow[facility] Platelet Count 190 140 - 440 06/05/2020 [facility]/uL 11:01 AM [facility] Kayse WirelessAD[facility] CENTERNerdiesX[facility] Mean Platelet 10.5 8.5 - 12.5 06/05/2020 [facility] Volume fL 11:01 AM [facility] Kayse WirelessAD[facility] CENTERTalkMarketsS [facility] % Neutrophils 66 50 - 70 % 06/05/2020 HEALTH 11:01 AM [facility] Kayse WirelessAD[facility] CENTERNerdiesGlobal [facility] % Lymphocytes 23 20 - 40 % 06/05/2020 HEALTH 11:01 AM [facility] % Monocytes 8 2 - 10 % 06/05/2020 HEALTH 11:01 AM [facility] % Eosinophils 2 0 - 6 % 06/05/2020 HEALTH 11:01 AM [facility] % Basophils 1 0 - 2 % 06/05/2020 HEALTH 11:01 AM [facility] % Immature 0 <=0 % 06/05/2020 [facility] Granulocytes 11:01 AM [facility] Absolute 5.0 2.0 - 7.7 06/05/2020 [facility] Neutrophils thou/uL 11:01 AM [facility] Absolute 1.8 0.8 - 4.4 06/05/2020 [facility] Lymphocytes thou/uL 11:01 AM [facility] Absolute 0.6 0.0 - 0.9 06/05/2020 [facility] Monocytes thou/uL 11:01 AM [facility] Eosinophils 0.2 0.0 - 0.4 06/05/2020 HEALTH Absolute thou/uL 11:01 AM [facility] Absolute 0.1 0.0 - 0.2 06/05/2020 [facility] Basophils thou/uL 11:01 AM [facility] Absolute Immature 0.0 <=0.0 06/05/2020 [facility] [facility] Granulocytes thou/uL 11:01 AM [facility] Specimen Anatomical Collection Method Collection Time Receive d Time (Source) Location / / Volume Laterality Blood specimen VAD(CVC, PICC) / 06/05/2020 10:53 06/05 (specimen) Unknown AM [facility] 10:58 AM [facility] Buddy South DO LAB - BLOOD ORDERABLES Performing Organization Address City/State/ZIP Code Phon [place] [address] [address] [facility] (ABNORMAL) Basic metabolic panel (06/05/2020 10:53 AM [facility]) [facility] Method Time Signature Sodium 135 (L) 136 - 145 06/05/2020 [facility] mmol/L 11:17 AM [facility] Potassium 3.6 3.5 - 5.0 06/05/2020 [facility] mmol/L 11:17 AM [facility] Chloride 99 98 - 107 06/05/2020 [facility] mmol/L 11:17 AM [facility] Carbon Dioxide 27 22 - 31 06/05/2020 [facility] (CO2) mmol/L 11:17 AM [facility] Anion Gap 9 5 - 18 06/05/2020 [facility] mmol/L 11:17 AM [facility] Glucose 239 (H) 70 - 125 06/05/2020 [facility] mg/dL 11:17 AM [facility] Calcium 9.7 8.5 - 10.5 06/05/2020 [facility] mg/dL 11:17 AM [facility] Urea Nitrogen 24 (H) 8 - 22 06/05/2020 [facility] mg/dL 11:17 AM [facility] Creatinine 1.56 (H) 0.60 - 06/05/2020 [facility] 1.10 mg/dL 11:17 AM [facility] GFR Estimate If 40 (L) >60 06/05/2020 [facility] Black mL/min/1.7 11:[address] LABORATORY GFR Estimate 33 (L) >60 06/05/2020 [facility] mL/min/1.7 11:[address] LABORATORY Specimen Anatomical Collection Method Collection Time Receive d Time (Source) Location / / Volume Laterality Blood specimen VAD(CVC, PICC) / 06/05/2020 10:53 06/05 (specimen) Unknown AM [facility] 10:58 AM [facility] Narrative [facility] - 06/05/2020 11:17 AM [facility] Fasting Glucose reference range is 70-99 mg/dL per [place] [employer] (ADA) charles martinez. Buddy South DO LAB - BLOOD ORDERABLES Performing Organization Address City/State/ZIP Code Phon [place] [address] [address] [facility] [place] [address], [facility] [phone] Troponin I (06/05/2020 10:53 AM [facility]) P athologist Signature Troponin I 0.02 0.00 - 0.29 06/05/2020 [facility] ng/mL 11:25 AM [facility] Specimen Anatomical Collection Method Collection Time Receive d Time (Source) Location / / Volume Laterality Blood specimen VAD(CVC, PICC) / 06/05/2020 10:53 06/05 (specimen) Unknown AM [facility] 10:58 AM [facility] Buddy South DO LAB - BLOOD ORDERABLES Performing Organization Address [facility] [place] [address] [address] [facility] (ABNORMAL) INR (06/05/2020 10:53 AM [facility]) P athologist Signature INR 2.10 (H) 0.90 - 1.10 06/05/2020 [facility] 11:08 AM [facility] Specimen Anatomical Collection Method Collection Time Receive d Time (Source) Location / / Volume Laterality Blood specimen VAD(CVC, PICC) / 06/05/2020 10:53 06/05 (specimen) Unknown AM [facility] 10:58 AM [facility] Narrative [facility] - 06/05/2020 11:08 AM [facility] INR Therapeutic Ranges: Mech. Valve 2.5-3.5 Post Surg. ??2.0-3.0 DVT/PE ?2.0-3.0 Buddy South DO LAB - BLOOD ORDERABLES Performing Organization Address City/[facility] Code Phon e Number [facility] [place] [address] [address] [facility] [place] [address], [facility] [phone] Partial thromboplastin time (06/05/2020 10:53 AM [facility]) athologist Signature aPTT 30 24 - 37 06/05/2020 [facility] seconds 11:08 AM [facility] Specimen Anatomical Collection Method Collection Time Receive d Time (Source) Location / / Volume Laterality Blood specimen VAD(CVC, PICC) / 06/05/2020 10:53 06/05 (specimen) Unknown AM [facility] 10:58 AM [facility] Buddy South DO LAB - BLOOD ORDERABLES Performing Organization Address City/State/ZIP Code Phon e Number [facility] [place] [address] [address] [facility] EKG 12-lead, tracing only (06/05/2020 10:40 AM [facility]) Patholo gist Method Time Signature Systolic Blood 06/12/2020 [facility] Pressure 8:50 AM CARDIOLOGY [facility] CONVERSION Diastolic Blood 06/12/2020 [facility] Pressure 8:50 AM CARDIOLOGY [facility] CONVERSION Ventricular Rate 85 BPM 06/12/2020 HE 8:50 AM CARDIOLOGY [facility] CONVERSION Atrial Rate 85 BPM 06/12/2020 HE 8:50 AM CARDIOLOGY [facility] CONVERSION NE Interval 160 ms 06/12/2020 HE 8:50 AM CARDIOLOGY [facility] CONVERSION QRS Duration 96 ms 06/12/2020 HE 8:50 AM CARDIOLOGY [facility] CONVERSION QT 396 ms 06/12/2020 HE 8:50 AM CARDIOLOGY [facility] CONVERSION QTc 471 ms 06/12/2020 HE 8:50 AM CARDIOLOGY [facility] CONVERSION P [place] 45 degrees 06/12/2020 HE 8:50 AM CARDIOLOGY [facility] CONVERSION R AXIS 31 degrees 06/12/2020 HE 8:50 AM CARDIOLOGY [facility] CONVERSION T [place] 52 degrees 06/12/2020 HE 8:50 AM CARDIOLOGY [facility] CONVERSION Interpretation Normal sinus rhythm 06/12/2020 HE ECG Normal ECG 8:50 AM CARDIOLOGY When compared with ECG of 05-JUL-2019 13:22, [facility] CONVERSION No significant change was found Confirmed by SEE ED PROVIDER NOTE FOR, ECG INTERPRETATION (3999), social media editor Brendan Cardona () on 06/12/2020 8:50:04 AM Specimen Anatomical Collection Method Collection Time Receive d Time (Source) Location / / Volume Laterality 06/05/2020 10:40 06/12/2020 8:50 AM [facility] AM [facility] Buddy South DO ECG ORDERABLES Performing Organization Address City/State/ZIP Code Phon e Number [facility] CARDIOLOGY CONVERSION documented in this encounter Visit Diagnoses Diagnosis Acute pain of left shoulder documented in this encounter Care Teams Medical Claims Manager Relationship Specialty Start Date End Date Elyse Paredes MD PCP - General Family Practice 12/22/13 04/21/22 [address] [place] [address] documented as of this encounter
--- OUTSIDE RECORDS SUMMARY | 2022-07-02 13:36 | XMS_ITS | Encounter Summary ---
:1950 Author Organization [facility] Address [address] [place] [address]. [place] [address] Care Team Providers Name Role Phone Elyse Paredes MD Primary Care Provider Reason for Visit Reason Comments Medication Refill Encounter Details Date Type Department Care Team Description 11/15/2020 Communication - [facility] Dagmar Kang, Medica tion Refill [facility] [place] [address] [facility] [address] [place] [address] [phone] Social History Tobacco Use Types Packs/Day Years Used Date Smoking Tobacco: Never Assessed Sex Assigned at Date Recorded Not on file documented as of this encounter Plan of Treatment Not on filedocumented as of this encounter Visit Diagnoses Diagnosis S/P TAVR (transcatheter aortic valve rep lacement) documented in this encounter Care Teams Any Commodity Sales Deliverer Relationship Specialty Start Date End Date Elyse Paredes MD PCP - General Family Practice 12/22/13 04/21/22 [address] [place] [address] documented as of this encounter
--- OUTSIDE RECORDS SUMMARY | 2022-07-02 13:36 | XMS_ITS | Encounter Summary ---
:1950 Author Organization [facility] Address [address] [place] [address] Care Team Providers Name Role Phone Elyse Paredes MD Primary Care Provider Encounter Details Date Type Department Care Team Description 12/23/2020 Records - [facility] [address] [place] [address] Social History Tobacco Use Types Packs/Day Years Used Date Smoking Tobacco: Never Assessed Sex Assigned at Date Recorded Not on file documented as of this encounter Plan of Treatment Not on filedocumented as of this encounter Procedures Procedure Name Priority Date/Time Associated Diagnosis Comme nts LAB RESULT - HIM SCAN Routine 12/23/2020 documented in this encounter Results Lab Result - HIM Scan (12/23/2020) Specimen (Source) Anatomical Location Collection Method / Collectio n Time Received Time / Laterality Volume Historical Provider NON-BEAKER LAB TESTING documented in this encounter Visit Diagnoses Not on filedocumented in this encounter Care Teams Utility Repairer Relationship Specialty Start Date End Date Elyse Paredes MD PCP - General Family Practice 12/22/13 04/21/22 [address] [place], [place] [id number] documented as of this encounter
--- OUTSIDE RECORDS SUMMARY | 2022-07-02 13:36 | XMS_ITS | Encounter Summary ---
:1950 Author Organization [place] Address [address] [place] [address] Care Team Providers Name Role Phone Elyse Paredes MD Primary Care Provider Encounter Details Date Type Department Care Team Description 12/27/2020 Records - [facility] CONVERSION Provider, Histor ical Social History Tobacco Use Types Packs/Day Years Used Date Smoking Tobacco: Never Assessed Sex Assigned at Date Recorded Not on file documented as of this encounter Plan of Treatment Not on filedocumented as of this encounter Procedures Procedure Name Priority Date/Time Associated Diagnosis Comme nts CT MISC FCIS ORDER Routine 05/10/2004 12:00 AM Re sults for this CDT procedure are i n the results section. CT MISC FCIS ORDER Routine 05/10/2004 12:00 AM Re sults for this CDT procedure are i n the results section. documented in this encounter Results CT Misc Order (05/10/2004 12:00 AM CDT) Anatomical Region Laterality Modality Computed Tomography Specimen (Source) Anatomical Location Collection Method / Collectio n Time Received Time / Laterality Volume Narrative 05/10/2004 12:00 AM CDT See Historical Hospital Medical Record f or documentation Procedure Note Provider, Historical - 12/27/2020Formatt ing of this note might be different from the original. See Historical Hospital Medical Record f or documentation Historical Provider IMG CT ORDERABLES CT Misc Order (05/10/2004 12:00 AM CDT) Anatomical Region Laterality Modality Computed Tomography Specimen (Source) Anatomical Location Collection Method / Collectio n Time Received Time / Laterality Volume Narrative 05/10/2004 12:00 AM CDT See Historical Hospital Medical Record f or documentation Procedure Note Provider, Historical - 12/27/2020Formatt ing of this note might be different from the original. See Historical Hospital Medical Record f or documentation Historical Provider IMG CT ORDERABLES documented in this encounter Visit Diagnoses Not on filedocumented in this encounter Care Teams Avaya Engineer Relationship Specialty Start Date End Date Elyse Paredes MD PCP - General Family Practice 12/22/13 04/21/22 [address] [place] [address] documented as of this encounter
--- OUTSIDE RECORDS SUMMARY | 2022-07-02 13:37 | XMS_ITS | Encounter Summary ---
:1950 Author Organization [facility] Address [address] [place] [address]. [place] [address] Care Team Providers Name Role Phone Elyse Paredes MD Primary Care Provider Reason for Visit Reason Comments Appointment Anticoagulation Encounter Details Date Type Department Care Team Description 01/06/2019 Communication - [facility] Gayathri, Appoint ment; [facility] Anticoagulation Clin ic [facility] Anticoagulation [address] [place] [phone] Social History Tobacco Use Types Packs/Day Years Used Date Smoking Tobacco: Never Assessed Sex Assigned at Date Recorded Not on file documented as of this encounter Miscellaneous Notes Telephone Encounter - Donna Trinh RN - 01/06/2019 5:06 PM CDT ANTICOAGULATION MANAGEMENT PROGRAM Marci Diaz is overdue for INR check. Reminder call made. Spoke with Marci and she stated that she will have her PCP Dr Elyse Paredes with [facility] manageranticoagulation. Donna Trinh RN documented in this encounter Plan of Treatment Not on filedocumented as of this encounter Visit Diagnoses Diagnosis Persistent atrial fibrillation (H) Atrial fibrillation S/P TAVR (transcatheter aortic valve rep lacement) documented in this encounter Care Teams Shift Foreman Relationship Specialty Start Date End Date Elyse Paredes MD PCP - General Family Practice 12/22/13 04/21/22 [address] [place], [place] [id number] documented as of this encounter
--- OUTSIDE RECORDS SUMMARY | 2022-07-02 13:37 | XMS_ITS | Encounter Summary ---
:1950 Author Organization [facility] Address [address] [place] [address] Care Team Providers Name Role Phone Elyse Paredes MD Primary Care Provider Encounter Details Date Type Department Care Team Description 06/14/2019 Records - [facility] [address] [phone] Social History Tobacco Use Types Packs/Day Years Used Date Smoking Tobacco: Never Assessed Sex Assigned at Date Recorded Not on file documented as of this encounter Plan of Treatment Not on filedocumented as of this encounter Procedures Procedure Name Priority Date/Time Associated Comments Diagnosis LIPID PROFILE Routine 06/14/2019 3:55 PM Results for this MEDICINE WORKER procedure are i n the results section. COMPREHENSIVE Routine 06/14/2019 3:55 PM Results for this METABOLIC PANEL MEDICINE WORKER procedure ar e in the results section. documented in this encounter Results (ABNORMAL) Lipid Profile (06/14/2019 3:55 PM MEDICINE WORKER) [facility] Time Signature Cholesterol 141 <=199 06/14/2019 HEALTH mg/dL 8:57 PM LABORATORY Triglycerides 113 <=149 06/14/2019 [facility]ALTH mg/dL 8:57 PM LABORATORY Direct Measure HDL 48 (L) >=50 06/14/2019 [facility] mg/dL 8:57 PM LABORATORY LDL Cholesterol 70 <=129 06/14/2019 [facility] Calculated mg/dL 8:57 PM LABORATORY Patient Fasting > Yes 06/14/2019 HEALTH 8hrs? 8:57 PM LABORATORY Specimen Anatomical Collection Method / Collection Time Recei gil Time (Source) Location / Volume Laterality Blood specimen Venipuncture / 06/14/2019 3:55 06/14/20 19 8:15 (specimen) Unknown PM MEDICINE WORKER PM MEDICINE WORKER Elyse Paredes MD LAB - BLOOD ORDERABLES Performing Organization Address City/State/ZIP Code Phon [place] [address] [address] [facility] (ABNORMAL) Comprehensive metabolic panel (06/14/2019 3:55 PM MEDICINE WORKER) [facility] Method Time Signature Sodium 139 136 - 145 06/14/2019 [facility]ALTH mmol/L 8:57 PM LABORATORY Potassium 4.3 3.5 - 5.0 06/14/2019 [facility] mmol/L 8:57 PM LABORATORY Chloride 101 98 - 107 06/14/2019 [facility] mmol/L 8:57 PM LABORATORY Carbon Dioxide 26 22 - 31 06/14/2019 [facility]ALTH (CO2) mmol/L 8:57 PM LABORATORY Anion Gap 12 5 - 18 06/14/2019 [facility] mmol/L 8:57 PM LABORATORY Glucose 154 (H) 70 - 125 06/14/2019 [facility] mg/dL 8:57 PM LABORATORY Urea Nitrogen 27 (H) 8 - 22 06/14/2019 [facility] mg/dL 8:57 PM LABORATORY Creatinine 1.43 (H) 0.60 - 06/14/2019 HEALTH 1.10 8:57 PM [facility] mg/dL [facility] GFR Estimate If 44 (L) >60 06/14/2019 [facility] Black mL/min/1. 8:57 PM [facility]. 73m2 [facility] GFR Estimate 37 (L) >60 06/14/2019 [facility]ALTH mL/min/1. 8:57 PM [facility]. 73m2 [facility] Bilirubin Total 1.0 0.0 - 1.0 06/14/2019 [facility] mg/dL 8:57 PM [facility] Calcium 9.7 8.5 - 06/14/2019 HEALTH 10.5 8:57 PM [facility]. mg/dL [facility] Protein Total 7.2 6.0 - 8.0 06/14/2019 [facility] g/dL 8:57 PM LABORATORY Albumin 3.7 3.5 - 5.0 06/14/2019 [facility] g/dL 8:57 PM LABORATORY Alkaline 68 45 - 120 06/14/2019 [facility] Phosphatase U/L 8:57 PM LABORATORY AST 29 0 - 40 06/14/2019 [facility]ALTH U/L 8:57 PM LABORATORY ALT 25 0 - 45 06/14/2019 [facility] U/L 8:57 PM LABORATORY Specimen Anatomical Collection Method / Collection Time Recei gil Time (Source) Location / Volume Laterality Blood specimen Venipuncture / 06/14/2019 3:55 06/14/20 19 8:15 (specimen) Unknown PM MEDICINE WORKER PM MEDICINE WORKER Narrative O LABORATORY - 06/14/2019 8:57 PM MEDICINE WORKER Fasting Glucose reference range is 70-99 mg/dL per [place] [employer] (ADA) charles martinez. Elyse Paredes MD LAB - BLOOD ORDERABLES Performing Organization Address City/State/ZIP Code [place] [id number] [place], [place] [address]S LABORATORY O LABORATORY [address] [place] [address], [facility] documented in this encounter Visit Diagnoses Not on filedocumented in this encounter Care Teams Piggery Worker Relationship Specialty Start Date End Date Reggie, Elyse Armas MD PCP - General Family Practice 12/22/13 04/21/22 [address] [place] [address] documented as of this encounter
--- OUTSIDE RECORDS SUMMARY | 2022-07-02 13:37 | XMS_ITS | Encounter Summary ---
:1950 Author Organization [facility] Address [address] [place] [address]. [place] [address] Care Team Providers Name Role Phone Dagmar Kang MD Unavailable Elyse Paredes MD Primary Care Provider Encounter Details Date Type Department Care Team Description 01/11/2019 Records - [facility] CONVERSION Provider, Karthik raya Social History Tobacco Use Types Packs/Day Years Used Date Smoking Tobacco: Never Assessed Sex Assigned at Date Recorded Not on file documented as of this encounter Plan of Treatment Not on filedocumented as of this encounter Visit Diagnoses Not on filedocumented in this encounter Care Teams Industrial Welder Relationship Specialty Start Date End Date Elyse Paredes MD PCP - General Family Practice 12/22/13 04/21/22 [address] [place] [address] Dagmar Kang MD Assigned Heart and 02/14/21 02/27/22 [address] [facility] [address], Vascular Provider [address] [place] [address] documented as of this encounter
--- OUTSIDE RECORDS SUMMARY | 2022-07-02 13:37 | XMS_ITS | Encounter Summary ---
:1950 Author Organization [place] Address [address] [place] [address] Care Team Providers Name Role Phone Elyse Paredes MD Primary Care Provider Encounter Details Date Type Department Care Team Description 06/27/2019 [facility] [address] [place] [phone] [phone] Social History Tobacco Use Types Packs/Day Years Used Date Smoking Tobacco: Never Assessed Sex Assigned at Date Recorded Not on file documented as of this encounter OR Notes Anesthesia Postprocedure Evaluation - Smita Guerrero - 06/27/2019 1:45 PM ADAPTED PHYSICAL EDUCATION TEACHER Patient: Marci Diaz COLONOSCOPY Anesthesia type: MAC Patient location: Phase II Recovery Last vitals: Vitals Value Taken Time BP 100/58 06/27/2019 11:00 AM Temp 36.9 ??C (98.5 ??F) 06/27/2019 11:00 AM Pulse 68 06/27/2019 11:01 AM Resp 16 06/27/2019 10:30 AM SpO2 91 % 06/27/2019 11:01 AM Post vital signs: stable Level of consciousness: awake and responds to simple questions Post-anesthesia pain: pain controlled Post-anesthesia nausea and vomiting: no Pulmonary: unassisted, return to baseline Cardiovascular: stable and blood pressure at baseline Hydration: adequate Anesthetic events: no QCDR Measures: ASA# 11 - Lori-op Cardiac Arrest: ASA11B - Patient did NOT experience unanticipated cardiac arrest ASA# 12 - Lori-op Mortality Rate: ASA12B - Patient did NOT ASA# 13 - PACU Re-Intubation Rate: ASA13B - Patient did NOT require a new airway mgmt ASA# 10 - Composite Anes Safety: ASA10A - No serious adverse event Additional Notes: TED PHYSICAL EDUCATION TEACHER Anesthesia Preprocedure Evaluation - Smita Guerrero - 06/27/2019 9:20 AM ADAPTED PHYSICAL EDUCATION TEACHER Anesthesia Evaluation Patient summary reviewed No history of anesthetic complications Airway Mallampati: IV Neck ROM: limited Pulmonary - normal exam (+) COPD, shortness of breath, sleep apnea, Cardiovascular - normal exam (+) hypertension, CAD, CHF, , ECG reviewed Neuro/Psych Endo/Other (+) diabetes mellitus, obesity, GI/Hepatic/Renal (+) chronic renal disease, Dental - normal exam Anesthesia Plan Planned anesthetic: MAC ASA 3 Anesthetic plan and risks discussed with: patient Post-op plan: routine recovery TED PHYSICAL EDUCATION TEACHER documented in this encounter Miscellaneous Notes Anesthesia Care Transfer Note - Mariely Lee - 06/27/2019 10:18 AM ADAPTED PHYSICAL EDUCATION TEACHER Last vitals: Vitals: 06/27/19 1017 BP: 106/54 Pulse: 78 Resp: 16 Temp: SpO2: 96% Patient's level of consciousness is drowsy Spontaneous [...] experience pain >= 7 out of 10 TED PHYSICAL EDUCATION TEACHER documented in this encounter Plan of Treatment Not on filedocumented as of this encounter Visit Diagnoses Not on filedocumented in this encounter Care Teams Public Relations Professional Relationship Specialty Start Date End Date Elyse Paredes MD PCP - General Family Practice 12/22/13 04/21/22 [address] [place] [address] documented as of this encounter
--- OUTSIDE RECORDS SUMMARY | 2022-07-02 13:37 | XMS_ITS | Encounter Summary ---
:1950 Author Organization [place] Address [address] [place] [id number] Care Team Providers Name Role Phone Elyse Paredes MD Primary Care Provider Reason for Visit Reason Comments Research Study Encounter Details Date Type Department Care Team Description 07/05/2019 [facility] l fibrillation [address] [phone] Social History Tobacco Use Types Packs/Day Years Used Date Smoking Tobacco: Never Assessed Sex Assigned at Date Recorded Not on file documented as of this encounter Last Filed Vital Signs Vital Sign Reading Time Taken Comments Blood Pressure 105/45 07/05/2019 1:11 PM CONTRACT LAW SPECIALIST Pulse 80 07/05/2019 1:11 PM CONTRACT LAW SPECIALIST Temperature 36.7 ??C (98.1 ??F) 07/05/2019 1:08 PM CONTRACT LAW SPECIALIST Respiratory Rate 16 07/05/2019 1:08 PM CONTRACT LAW SPECIALIST Oxygen Saturation - - Inhaled Oxygen Concentration - - Weight 127.1 kg (280 lb 1.6 oz) 07/05/2019 1:11 PM CONTRACT LAW SPECIALIST Height 157.5 cm (5' 2) 07/05/2019 1:11 PM CONTRACT LAW SPECIALIST Body Mass Index 51.23 07/05/2019 1:11 PM CONTRACT LAW SPECIALIST documented in this encounter Progress Notes Robert Weems - 07/05/2019 12:30 PM CST Images from the original note were not included. Progress Notes by Robert Weems at 07/05/2019 12:30 PM Author: Robert Weems Service: -- Author Type: Patient Access Filed: 07/05/2019 3:54 PM Encounter Date: 07/05/2019 Status: Signed Behavior Therapist: Robert Weems (Patient Access) [facility] Study Consent Visit Study description: ECG and PPG Study: Zestar Study Note time seated: 1245 Marci Diaz a 69 y.o. female , was seen in 2500 today to discuss participation in the Zestar study. The consent discussion began on 07/03/19. Please refer to phone call note from Nellie Chavez for more details. The consent form was reviewed with the patient. The review of the study included: ?? Study purpose ?? Conflict of interest ?? Device description ?? Study visits ?? Risks of participation ?? Benefits (if any) ?? Alternatives ?? Voluntary participation ?? Confidentiality ?? Compensation/costs of participation ?? Study stipends ?? Injury and legal rights The subject was provided time to review the consent form and consider participation. her questions were answered to her satisfaction. The patient has voluntarily agreed to participate in the above noted study. The consent form version 26 Jun 2019 and HIPAA form version 10 Jan 2019 was signed 07/05/19 at 1303 The subject was provided with a copy of the consent form and HIPAA. A copy of the signed forms was forwarded to medical records. No study procedures were done prior to Marci Diaz providing informed consent. Robert Weems Subject Restrictions During Study -Confirmed with Subject prior to any study procedures completed Restrictions on jewelry, recreational drugs, caffeine, and exercise few days prior and during study. 1. Subjects should not consume excessive amount of caffeine (6 or more 8-oz cups of coffee, or more than 570 mg of caffeine from energy drinks, pills or similar substance) during their participation inthe study. 2. Subjects should not consume excessive amount of alcohol for the duration of their participation in the study. A typical moderate amount is allowed during stage 3. 3. Subjects should not take any recreational drugs (including, but not limited to methamphetamines, cocaine, opioids, cannabis, LSD) for the duration of their participation in the study. 4. Subjects should not wear underwire bra or jewelry during the in-lab study (to not interfere with electrode placement and ECG data recordings). 5. Subject will not be permitted to have their cell phone or any electronic recording device on or with them during the in-lab test session(s). 6. Subjects under 22 years old will not be permitted to take ECG recordings through the ECG tyra on the wrist-worn devices. For study stage 3 only 1. Subjects should only do high intensity exercise (e.g. sprinting, heavy lifting, etc.) in the morning upon awakening or else not at all 2. Subjects should abstain from swimming during the time of the study 3. Subjects should only shower in the morning upon awakening (or else not at all) 4. Female subjects are strongly suggested to wear non-underwire bras throughout this stage of the study Robert Bowenehl Study Data collections Vitals (TPBP) Vitals: 07/05/19 1308 07/05/19 1310 07/05/19 1311 BP: 109/71 117/62 105/45 Patient Site: Right Arm Right Arm Right Arm Patient Position: Sitting Sitting Sitting Cuff Size: Adult Large Adult Large Adult Large Pulse: 83 83 80 Resp: 16 Temp: 98.1 ??F (36.7 ??C) Weight: (!) 280 lb 1.6 oz (127.1 kg) Height: 5' 2 (1.575 m) VS taken after 5 min rest MAP 1 81 MAP 2 74 MAP 3 57 Body mass index is 51.23 kg/m??. female 1950 69 y.o. Note time patient placed in supine position: 1317 Ethnicity [] or [x] Not or Race [] or [] [] Black or [] or Other [x] White Physical Activity Level per subject report: [] 0- Extremely Inactive [x] 1- Sedentary [] 2- Moderately Active [] 3- Vigorously Active [] 4- Extremely Active Trained Athlete [] Yes [x] No Saavedra's' Skin type [] Type 1 [x] Type 2 [] Type 3 [] Type 4 [] Type 5 [] Type 6 Subject participated in previous ECG study at [facility]: [] Yes [x] No Past Medical History: Diagnosis Date ? Bicuspid aortic valve 2016 ? Cancer (H) 2018 breast cancer invasive ductal carcinoma ? CHF (congestive heart failure) (H) 2016 ? Coronary artery disease 05/2017 JEFFERSON,LAD (2 stents) ? Depression 2013 ? Diabetes mellitus (H) 1994 insulin ? DJD (degenerative joint disease) ? Dyspnea 2016 ? Hyperlipidemia 1994 ? Hypertension 1994 ? Kidney stones 2016 ? Morbid obesity (H) ? Nephrolithiasis 2016 renal cyst ? DEDE on CPAP 2008 ? Persistent atrial fibrillation 2016 ? Severe aortic stenosis 2016 ? Thyroid cyst ? Tooth abscess 2016 HISTORY OF HEART RHYTHM ABNORMALITIES (check only group subject is 'randomized[' to-only 1) [] Group 1: History of paroxysmal atrial fibrillation (no excluded medications) [] Group 2: History of paroxysmal atrial fibrillation (on excluded medications) [] Group 3: History of high-rate atrial fibrillation [x] Group 4: History of atrial fibrillation with rate control medications [] Group 5: Permanent/persistent atrial fibrillation [] Group 6: history of atrial flutter [] Group 7: Frequent PVCs [] Group 8: Frequent PACs [] Group 9: BBB (left or right) [] Group 10: History of 2nd Heart Block (any type) [] Group 11: History of bigeminy, trigeminy, and/or quadgeminy [] Group 12: History of tachycardia Special interest allergies: active allergic skin reactions Allergies Allergen Reactions ? Lisinopril Cough ? Metformin Nausea And Vomiting ? Erythromycin Base Rash ? Ilosone Rash Current Outpatient Medications: ? amoxicillin (AMOXIL) 500 MG tablet, Take 2,000 mg by mouth as needed (prior to dental work). , Disp: , Rfl: ? anastrozole (ARIMIDEX) 1 mg tablet, Take 1 mg by mouth daily., Disp: , Rfl: ? aspirin 81 MG EC tablet, Take 1 tablet (81 mg total) by mouth daily., Disp: , Rfl: 0 ? BD INSULIN PEN NEEDLE UF MINI 31 gauge x 3/16 Ndle, USE 4-5 PER DAY UTD, Disp: , Rfl: 0 ? BD INSULIN PEN NEEDLE UF SHORT 31 gauge x 5/16 Ndle, USE WITH TOUJEO AND VICTOZA BID, Disp: , Rfl: 3 ? celecoxib (CELEBREX) 200 MG capsule, Take 200 mg by mouth daily. , Disp: , Rfl: ? chlorthalidone (HYGROTEN) 25 MG tablet, Take 1 tablet (25 mg total) by mouth daily., Disp: 90 tablet, Rfl: 1 ? CRESTOR 10 mg tablet, Take 40 mg by mouth daily. , Disp: , Rfl: ? dulaglutide 0.75 mg/0.5 mL PnIj, Inject 1.5 mg under the skin once a week. Trucility, Disp: , Rfl: ? famotidine (FOR PEPCID) 10 MG tablet, Take 10 mg by mouth as needed., Disp: , Rfl: ? insulin lispro (HUMALOG) 100 unit/mL injection, Inject 6-10 Units under the skin 3 (three) times aday before meals., Disp: , Rfl: ? LANTUS SOLOSTAR 100 unit/mL (3 mL) pen, 30 Units 2 (two) times a day. , Disp: , Rfl: ? losartan (COZAAR) 50 MG tablet, Take 1.5 tablets (75 mg total) by mouth daily., Disp: 135 tablet, Rfl: 2 ? metoprolol succinate (TOPROL XL) 25 MG, Take 1 tablet (25 mg total) by mouth daily., Disp: 90 tablet, Rfl: 1 ? sertraline (ZOLOFT) 100 MG tablet, Take 50 mg by mouth daily. Patient takes 50mg daily, Disp: , Rfl: ? warfarin (COUMADIN/JANTOVEN) 2.5 MG tablet, TAKE 1 TABLET BY MOUTH EVERY DAY, Disp: 90 tablet, Rfl: 0 ? warfarin (COUMADIN/JANTOVEN) 5 MG tablet, TAKE 1 TABLET BY MOUTH DAILY. ADJUST DOSE BASED ON INR RESULTS DIRECTED, Disp: 30 tablet, Rfl: 0 10-sec 12-lead ECG & 30-sec 12-lead ECG rhythm strip done; reviewed by & PE done by Terri Goyal Subject Questionnaire OCCUPATION: Retired Predominately works outdoors [] Yes [x] No Hours/week spent outdoors (total, not only for work): 7 Frequently participates in hand intensive activities [x] Yes [] No Caffeine [] Never [] Occasionally [] Daily (1 cup/day) [x] Daily (>1 cup/day) Alcohol [x] Never [] Light (drink or 2 occasionally) [] Moderate (a drink or 2 almost daily) [] Occasional-heavy (more than a few drinks <2x / month) [] Heavy (more than a few drinks >2x / month) Tobacco/nicotine [x] Never [] Rarely [] Frequently/ Daily Mattress Information Mattress type: [] Memory foam [] Gel [x] Innerspring (coil) [] Airbed [] Waterbed [] [place] [] Hybrid [] No mattress [] Other (comment): Mattress foundation [] Mattress on floor/ground [] Mattress on foundation/box spring on floor/ground [x] Mattress on foundation/box spring on bed frame [] Mattress on tatami on floor/ground [] Other (comment): Mattress topper [x] No mattress topper [] Pillow top [] Foam top - flat style [] Foam top - egg crate style [] Other (comment): Co-sleeper [] Yes [x] No CPAP use [x] Yes [] No Dominant hand [] left [x] right [] ambidextrous Preferred Wrist to wear band on [x] left [] right Were screening day & study day: [x] same [] different Same: wrist circumference: 183 mm Device wearing wrist skin fold thickness: 6.8 mm Wrist Band Size: [] Flush Fit S/M [] Non-Flush Fit S/M [x] Flush Fit M/L [] Non-Flush Fit M/L [] Flush Fit XL [] Non-Flush Fit XL Preferred/natural band notch: 4 Secure band notch: 4 [place] orientation: [] left [x] right Device wearing wrist hairiness: [x] Light [] Medium [] Heavy Spectophotometer L A B Reading #1 69.88 7.08 14.66 Reading #2 68.74 7.67 14.54 Reading #3 67.79 8.81 14.33 test [] WOCBP (age <55 yrs, no tubal ligation, no hysterectomy) [x] n/a male or female not child bearing potential For Stage 2: subject will use exercise bike for exercise portion of the study Room Temperature: 22??C CS Laptop ID: [id number] CS Cam ID:[id number] Device Set ID:[id number] Wrist Device ID:[id number] Subject has now completed their in-house participation in the Zestar study. Subject will complete Stage 3 at home for the next 3 days and return the equipment on 07/10/19. Robert Weems RACT LAW SPECIALIST Robert Weems - 07/05/2019 12:30 PM CST Images from the original note were not included. Progress Notes by Robert Weems at 07/05/2019 12:30 PM Author: Robert Weems Service: -- Author Type: Patient Access Filed: 07/12/2019 8:02 AM Encounter Date: 07/05/2019 Status: Signed Behavior Therapist: Lm Kiser MD (Physician) Related Notes: Original Note by Robert Weems (Patient Access) filed at 07/05/2019 3:54 PM [facility] Study Inclusion / Exclusion Criteria Protocol Version 4.0 (23MRC1332) Inclusion Criteria Yes No Criteria # Subject must meet all inclusion criteria: [x] [] 1 At least 18 years old for NSR and 22 years old for Non-NSR. Inclusive for both cohorts, at timeof screening, with no upper limit on age. [x] [] 2 To be enrolled as a non-NSR subject the volunteer must have one of the following conditions: Permanent/Persistent AF, Hx of paroxysmal AF, Hx of High- rate AF, AF + rate control medication, Hx Atrial Flutter, PVC burden >1%, Frequent PACs, Hx BBB, Hx 2nd degree block (any type), Hx Bigeminy/Trig eminy/Quadgeminy, Hx Tachycardia. For subjects with any of the following diagnoses, the condition must be present at the time of screening: ? Permanent/persistent AF ? PVC [place] ? Frequent PACs Note: If not present at screening, subjects may not be enrolled as a non-NSR subject or NSR subject. 3 [x] N/A HE site For Subjects to be enrolled as NSR they must be in NSR at the time of screening as determined by the background investigator. For subjects ?65 years old with PVC burden of ?1% or infrequent PACs (<3 ectopic beats in 30 seconds), they may qualify as individuals in the NSR cohort as long as theydon't have a medical history/diagnosis of significant ectopic burden. For subjects ? 66 years old with PVC burden > 1% but ?10%, they may qualify as individuals in the NSR cohort as long as they don't have a medical history/diagnosis of significant ectopic burden. [x] [] 4 Able to read and understand a written ICF [x] [] 5 Willing and able to participate in the study procedures and comply with its restrictions [x] [] 6 Able to communicate effectively with study staff as well as understand and follow directions All must be Yes Exclusion Criteria-all must be no Yes No Criteria # Subject must not meet any exclusion criteria: [] [x] 1 Physical disability that prevents safe and adequate testing. [] [x] 2 women or women planning to become [] [x] 3 Any acute illness or condition that may interfere with study procedures (e.g. cough, fever,sore throat, headache, sunburn, etc.) [] [x] 4 Clinically significant hand tremors, as judged by the Bill Poster Installer [] [x] 5 Resting hypertension with systolic blood pressure ?161 mmHg or diastolic blood pressure ?101 mmHg (if at least 2 of 3 measurements meet this criteria) [] [x] 6 Subjects with a pacemaker or an automated implantable cardioverter- defibrillator (AICD) [] [x] 7 Acute myocardial infarction (AL) within 90 days from the screening visit [] [x] 8 Other cardiovascular disease that increases the risk to the subject or would render the data uninterpretable in the opinion of the Bill Poster Installer (e.g., recent or ongoing unstable angina, significant valvular heart disease or chronic heart failure, myocarditis or pericarditis) [] [x] 9 Acute pulmonary embolism, pulmonary infarction, or deep vein thrombosis within 90 days fromthe screening visit [] [x] 10 Stroke or transient ischemic attack within 90 days from the screening visit [] [x] 11 Known untreated medical conditions as determined by the Bill Poster Installer, such as but not limited to significant anemia, important electrolyte imbalance and untreated or uncontrolled thyroid disease. [] [x] 12 Any history of wrist surgery with scarring in the area of the sensor location on the wristwhere the subject will be wearing the watch; [] [x] 13 Open wound(s) on the wrist and forearm where the subject will be wearing the watch [] [x] 14 Severe symptomatic (or active) overly dry/injured skin, skin disorders, or allergic skin reactions such as eczema, rosacea, impetigo, dermatomyositis or allergic contact dermatitis on wrist and locations where the electrodes will be placed (e.g. chest, forearms, stomach), as determined by the background investigator. [] [x] 15 Tattoos, scars or moles in the area of the sensor location on the wrist where the subject will be wearing the watch [] [x] 16 Device wearing Wrist circumference ? 129 mm or ? 246 mm [] [x] 17 Known significant sensitivity to medical adhesives or isopropyl alcohol (for ECG electrodeplacement) [] [x] 18 Known allergy or sensitivity to fluorocarbon-based synthetic rubber, such as contact dermatitis with fluoroelastomer bands primarily used in wrist worn fitness devices [] [x] 19 Subjects with any Medical History, Physical exam, vital sign or any other study procedure finding/assessment that in the opinion of the background investigator could compromise subject safety during study participation or interfere with the study integrity and/or the accurate assessment of the study objectives [] [x] 20 Subject works for a company that develops or sells medical and/or fitness devices (e.g., ECG monitors, wearable fitness bands, sleep monitors, etc.) or are technology journalists (e.g., professional bloggers, TV, magazine, newspaper reporters, etc.) [] [x] 21 Weight > 181 kg for subjects using the stationary bike and/or treadmill. Weight of ?138kg for NSR subjects. [] [x] 22 Subject is employed in shift work, or otherwise does not maintain a reasonably consistent day/night schedule (e.g. Subjects who go to bed after 4am). [] [x] 23 Overnight travel planned during data collection nights [] [x] 24 Non-NSR subjects should not have partaken in strenuous physical activity within 12 hours prior to screening [] [x] 25 Non-NSR subjects with Atrial fibrillation categories: Subjects taking Class 1 or Class 3 antiarrhythmic agents such as the following may not take part in any stage of the study: amiodarone, sotalol, dronedarone, ibutilide, dofetilide, propafenone, quinidine, procainamide, disopyramide, flecainide (Subjects taking class 2, 4 or 5 antiarrhythmic agents may take part the study). [] [x] 26 Subjects who have both a history of paroxysmal AF and a Saavedra skin type measurement of [] [x] 27 Subjects who have missing index fingers on both hands Subject has met all inclusion criteria and no exclusion criteria have been met. Subject is ready to fully enrolled in the Zestar study. Robert Weems Terri Goyal NP - 07/05/2019 12:30 PM CST Images from the original note were not included. Progress Notes by Terri Goyal CNP at 07/05/2019 12:30 PM Author: Terri Goyal CNP Service: -- Author Type: Nurse Practitioner Filed: 07/05/2019 3:54 PM Encounter Date: 07/05/2019 Status: Signed Behavior Therapist: Terri Goyal CNP (Nurse Practitioner) Zestar Study Physical Examination For abnormal findings, please evaluate if the finding is Clinically Significant (by 'CS') or Not Clinically Significant (by 'NCS') General Appearance Normal Head and Neck Normal Lungs Normal Cardiovascular Normal Abdomen Normal Musculoskeletal/Extremities Normal Lymph Nodes Normal Skin Normal Neurological Normal Tremor absent If present, evaluate severity on 1-10 scale Treri Goyal CNP RACT LAW SPECIALIST documented in this encounter Plan of Treatment Not on filedocumented as of this encounter Procedures Procedure Name Priority Date/Time Associated Diagnosis Comme nts ECG 12-LEAD WITH MUSE Routine 07/05/2019 Result s for this ? procedure are in the [facility] results section . documented in this encounter Results ECG 12-LEAD WITH MUSE ([facility]) (07/05/2019) [facility] Method Time Signature Systolic Blood 07/05/2019 HE RADIANT Pressure 2:54 PM CONVERSION CONTRACT LAW SPECIALIST Diastolic Blood 07/05/2019 HE RADIANT Pressure 2:54 PM CONVERSION CONTRACT LAW SPECIALIST Ventricular Rate 85 BPM 07/05/2019 HE RADIANT 2:54 PM CONVERSION CONTRACT LAW SPECIALIST Atrial Rate 85 BPM 07/05/2019 HE RADIANT 2:54 PM CONVERSION CONTRACT LAW SPECIALIST CT Interval 154 ms 07/05/2019 HE RADIANT 2:54 PM CONVERSION CONTRACT LAW SPECIALIST QRS Duration 96 ms 07/05/2019 HE RADIANT 2:54 PM CONVERSION CONTRACT LAW SPECIALIST QT 382 ms 07/05/2019 HE RADIANT 2:54 PM CONVERSION CONTRACT LAW SPECIALIST QTc 454 ms 07/05/2019 HE RADIANT 2:54 PM CONVERSION CONTRACT LAW SPECIALIST P [place] -3 degrees 07/05/2019 HE RADIANT 2:54 PM CONVERSION CONTRACT LAW SPECIALIST R AXIS -5 degrees 07/05/2019 HE RADIANT 2:54 PM CONVERSION CONTRACT LAW SPECIALIST T [place] 27 degrees 07/05/2019 HE RADIANT 2:54 PM CONVERSION CONTRACT LAW SPECIALIST Interpretation Normal sinus rhythm 07/05/2019 HE R ADIANT ECG Normal ECG 2:54 PM CONVERSION When compared with ECG of 08-AUG-2018 16:01, CONTRACT LAW SPECIALIST No significant change was found Confirmed by DONALD ??, AGUS LOC: ([id number]) on 9 2:54:37 PM Specimen (Source) Anatomical Collection Method Collection Time Re ceived Time Location / / Volume Laterality 07/05/2019 07/05/2019 2:54 PM CONTRACT LAW SPECIALIST Lm Kiser MD ECG ORDERABLES Performing Organization Address City/State/ZIP Code Phon e Number HE CARDIOLOGY CONVERSION HE RADIANT CONVERSION documented in this encounter Visit Diagnoses Diagnosis Permanent atrial fibrillation (H) Atrial fibrillation documented in this encounter Care Teams Charter Coordinator Relationship Specialty Start Date End Date Elyse Paredes MD PCP - General Family Practice 12/22/13 04/21/22 [address] [place] [address] documented as of this encounter
--- OUTSIDE RECORDS SUMMARY | 2022-07-02 13:37 | XMS_ITS | Encounter Summary ---
:1950 Author Organization [place] Address [address] [place] [id number] Care Team Providers Name Role Phone Elyse Paredes MD Primary Care Provider Reason for Visit Reason Comments Referral Encounter Details Date Type Department Care Team Description 12/09/2018 Communication [facility] Elyse Paredes MD [address] [place] [address] Referral [facility] Medical Specialties Provider, Historical Patient Access [address] [place] [phone] Social History Tobacco Use Types Packs/Day Years Used Date Smoking Tobacco: Never Assessed Sex Assigned at Date Recorded Not on file documented as of this encounter Miscellaneous Notes Telephone Encounter - Historical Provider - 12/16/2018 9:48 AM CDT Per patient she received training at [facility]. Telephone Encounter - Historical Provider - 12/14/2018 9:45 AM CDT LMTCB x2 Telephone Encounter - Historical Provider - 12/12/2018 10:50 AM CDT LMTCB x1 Telephone Encounter - Historical Provider - 12/09/2018 2:20 PM CDT External - [facility] - [phone] Referring Provider: Elyse Paredes DX: Dm Type 2 uncontrolled Ref./rec. Were received on... 12.09 @ 11:42am & 12.05 @ 5:01pm (inside Diabetes Consult Fax Folder) Records printed and sent to scan. documented in this encounter Plan of Treatment Not on filedocumented as of this encounter Visit Diagnoses Not on filedocumented in this encounter Care Teams Mobility Scooter Repairer Relationship Specialty Start Date End Date Elyse Paredes MD PCP - General Family Practice 12/22/13 04/21/22 [address] [place] [address] documented as of this encounter
--- OUTSIDE RECORDS SUMMARY | 2022-07-02 13:37 | XMS_ITS | Encounter Summary ---
:1950 Author Organization [place] Address [address] [place] [address] Care Team Providers Name Role Phone Elyse Paredes MD Primary Care Provider Reason for Visit Reason Comments Research Study Encounter Details Date Type Department Care Team Description 07/07/2019 Communication - [facility] Nathalia Patiño earch Study RUST Cinda Darian Bateman [address] [place] [id number] Social History Tobacco Use Types Packs/Day Years Used Date Smoking Tobacco: Never Assessed Sex Assigned at Date Recorded Not on file documented as of this encounter Miscellaneous Notes Telephone Encounter - Cinda Patiño - 07/06/2019 9:25 AM SOCIAL PROBLEMS SPECIALIST Patient called because her watches were out of battery the morning of day 2. Was wondering if that would screw up the data if she left it off for 3 hours rater than 2 so then it could be charged for the whole day. Said to just harrison it in her journal and all will be well. Cinda Wolf AL PROBLEMS SPECIALIST documented in this encounter Plan of Treatment Not on filedocumented as of this encounter Visit Diagnoses Not on filedocumented in this encounter Care Teams Warehouse Order Puller Relationship Specialty Start Date End Date Elyse Paredes MD PCP - General Family Practice 12/22/13 04/21/22 [address] [place] [address] documented as of this encounter
--- OUTSIDE RECORDS SUMMARY | 2022-07-02 13:37 | XMS_ITS | Encounter Summary ---
:1950 Author Organization [facility] Address [address] [place] [address] Care Team Providers Name Role Phone Elyse Paredes MD Primary Care Provider Encounter Details Date Type Department Care Team Description 02/03/2019 Ambulatory - [facility] S/P coronary artery stent pl acement; [address] S/P TAVR (transcatheter aort ic valve replacement) [place] [address] Social History Tobacco Use Types Packs/Day Years Used Date Smoking Tobacco: Never Assessed Sex Assigned at Date Recorded Not on file documented as of this encounter Progress Notes Liliane Browne - 02/03/2019 10:00 AM CDT Discharge Note Diagnosis: TAVR, Stent Functional Outcomes: Patient has participated in Phase III Cardiac Rehab from 01/26/18 to 02/03/19. Patient has progressed/maintained a 2.3-2.5 met level for a duration of 45 minutes. Target heart Rate 20-30 >RHR . RPE 11-14. Resting HR Range 83-102 BP Range 118/70-120/60 Exercise HR Range 88-109 BP Range 130/70-162/78 Asymptomatic/ Symptomatic: Patient was asymptomatic with good exercise tolerance. Comments/Concerns: Patient is continuing exercise at [facility] due to equipment availability. Updated Outcomes: Patient tolerated exercising at a MET level of 2.3-2.5 for 45 minutes well. Modalities/MET levels: Nustep 2.3 METS Recumbent Elliptical 2.5 METS Patient verbalized an understanding of: Cardiac signs/symptoms and emergency plan, Home Exercise program and Basic exercise principles Patient has chosen to discontinue Phase III Cardiac Rehabilitation. documented in this encounter Plan of Treatment Not on filedocumented as of this encounter Visit Diagnoses Diagnosis S/P coronary artery stent placement Postsurgical percutaneous transluminal c oronary angioplasty status S/P TAVR (transcatheter aortic valve rep lacement) documented in this encounter Care Teams Log Hauler Relationship Specialty Start Date End Date Elyse Paredes MD PCP - General Family Practice 12/22/13 04/21/22 [address] [place] [address] documented as of this encounter
--- OUTSIDE RECORDS SUMMARY | 2022-07-02 13:37 | XMS_ITS | Encounter Summary ---
:1950 [address] [facility] Address [address] [place] [address] Care Team Providers Name Role Phone Elyse Paredes MD Primary Care Provider Encounter Details Date Type Department Care Team Description 06/27/2019 Surgery - [facility] Jeni Barrera MD [facility] GASTROENTEROLOGY [address] [phone] Social History Tobacco Use Types Packs/Day Years Used Date Smoking Tobacco: Never Assessed Sex Assigned at Date Recorded Not on file documented as of this encounter Last Filed Vital Signs Vital Sign Reading Time Taken Comments Blood Pressure - - Pulse - - Temperature - - Respiratory Rate - - Oxygen Saturation - - Inhaled Oxygen Concentration - - Weight 124.8 kg (275 lb 1.6 oz) 06/27/2019 9:08 AM NUCLEAR EQUIPMENT DESIGN ENGINEER Height 160 cm (5' 3) 06/27/2019 9:08 AM NUCLEAR EQUIPMENT DESIGN ENGINEER Body Mass Index 48.73 06/27/2019 9:08 AM NUCLEAR EQUIPMENT DESIGN ENGINEER documented in this encounter Plan of Treatment Not on filedocumented as of this encounter Visit Diagnoses Not on filedocumented in this encounter Care Teams Employment Coach Relationship Specialty Start Date End Date Elyse Paredes MD PCP - General Family Practice 12/22/13 04/21/22 [address] [place] [address] documented as of this encounter
--- OUTSIDE RECORDS SUMMARY | 2022-07-02 13:37 | XMS_ITS | Encounter Summary ---
:1950 Author Organization [facility] Address [address] [place] [address] Care Team Providers Name Role Phone Elyse Paredes MD Primary Care Provider Reason for Visit Reason Comments Medication Refill losartan Encounter Details Date Type Department Care Team Description 02/06/2019 [facility] Gabrielle Golden tihossein Refill [facility] Dora RN (losartan) [address] [place] [address] Social History Tobacco Use Types Packs/Day Years Used Date Smoking Tobacco: Never Assessed Sex Assigned at Date Recorded Not on file documented as of this encounter Plan of Treatment Not on filedocumented as of this encounter Visit Diagnoses Diagnosis Benign essential hypertension Essential hypertension, benign documented in this encounter Care Teams Enamel Buffer Relationship Specialty Start Date End Date Elyse Paredes MD PCP - General Family Practice 12/22/13 04/21/22 [address] [place] [address] documented as of this encounter
--- OUTSIDE RECORDS SUMMARY | 2022-07-02 13:37 | XMS_ITS | Encounter Summary ---
:1950 Author Organization [facility] Address [address] [place] [address]. [place] [address] Care Team Providers Name Role Phone Elyse Paredes MD Primary Care Provider Encounter Details Date Type Department Care Team Description 01/11/2019 Ambulatory - [facility] Heart [address] [phone] Social History Tobacco Use Types Packs/Day Years Used Date Smoking Tobacco: Never Assessed Sex Assigned at Date Recorded Not on file documented as of this encounter Plan of Treatment Not on filedocumented as of this encounter Procedures Procedure Name Priority Date/Time Associated Diagnosis Comme nts LAB RESULT - HIM SCAN Routine 01/11/2019 documented in this encounter Results Lab Result - HIM Scan (01/11/2019) Specimen (Source) Anatomical Location Collection Method / Collectio n Time Received Time / Laterality Volume Narrative This result has an attachment that is no t available. Historical Provider NON-BEAKER LAB TESTING documented in this encounter Visit Diagnoses Not on filedocumented in this encounter Care Teams Stunt Man Relationship Specialty Start Date End Date Elyse Paredes MD PCP - General Family Practice 12/22/13 04/21/22 [address] [place], [place] [id number] documented as of this encounter
--- OUTSIDE RECORDS SUMMARY | 2022-07-02 13:37 | XMS_ITS | Encounter Summary ---
:1950 Author Organization [facility] Address [address] [place] [address] Care Team Providers Name Role Phone Elyse Paredes MD Primary Care Provider Reason for Visit Reason Comments Patient Inquiry Encounter Details Date Type Department Care Team Description 07/03/2019 Communication - [facility] Nellie Chavez ient Inquiry [facility] RN [address] [address] Social History Tobacco Use Types Packs/Day Years Used Date Smoking Tobacco: Never Assessed Sex Assigned at Date Recorded Not on file documented as of this encounter Miscellaneous Notes Telephone Encounter - Nellie Chavez RN - 07/04/2019 1:02 PM CST [facility] Study Consent Visit Study description: ECG and PPG Study: [facility] Study Marci Diaz a 69 y.o. female , was contacted by today to discuss participation in the [facility] study. The patient called the Clinical Trials Office to inquire about study participation. The consent form was reviewed with the patient. The review of the study included: ?? Study purpose ?? Conflict of interest ?? Device description ?? Study visits ?? Risks of participation ?? Benefits (if any) ?? Alternatives ?? Voluntary participation ?? Confidentiality ?? Compensation/costs of participation ?? Study stipends ?? Injury and legal rights The subject was queried in regards to her willingness to continue and come in for scheduled appointment. her questions were answered to her satisfaction. The patient has given her preliminary agreement to volunteer to participate in the above noted study. Plan: Marci Diaz will come to [facility] on 07/05/19 to continue consent process. If shecontinues to agrees to participate, the study visit will be done on the same day. she was instructed to eat as usual before coming for study visit and take medications as usual too. she was encouraged to wear comfortable clothes and shoes to the study appointment. Nellie Chavez, EPS ENT WINDING MACHINE TENDER documented in this encounter Plan of Treatment Not on filedocumented as of this encounter Visit Diagnoses Not on filedocumented in this encounter Care Teams M[employer] Banker Relationship Specialty Start Date End Date Elyse Paredes MD PCP - General Family Practice 12/22/13 04/21/22 [address] [place] [address] documented as of this encounter
--- OUTSIDE RECORDS SUMMARY | 2022-07-02 13:37 | XMS_ITS | Encounter Summary ---
:1950 Author Organization [facility] Address [address] [place] [address] Care Team Providers Name Role Phone Elyse Paredes MD Primary Care Provider Encounter Details Date Type Department Care Team Description 06/27/2019 Hospital Encounter [facility] Candelario Barrera MD [facility] [place] [facility] GASTROENTEROLOGY [address] [phone] Social History Tobacco Use Types Packs/Day Years [...] (275 lb 1.6 oz) 06/27/2019 9:08 AM BUSINESS SERVICES OFFICER Height 160 cm (5' 3) 06/27/2019 9:08 AM BUSINESS SERVICES OFFICER Body Mass Index 48.73 06/27/2019 9:08 AM BUSINESS SERVICES OFFICER documented in this encounter Medications at Time [...] Ndle GAUGE X 5/16 NDLE] USE WITH TOUJEO AND VICTOZA BID [...] documented as of this encounter H&P Notes Jeni Barrera - 06/27/2019 9:59 AM CST I have performed an assessment and examined the patient, as necessary, to update the patient's current status that may have changed since the prior History and Physical. The History & Physical has been reviewed and no updates are needed. NESS SERVICES OFFICER documented in this encounter Nursing Notes Awilda Turner - 06/26/2019 10:27 AM CST Pt. on coumadin, stopped 06/22/19. Dr. Vasques, anesth. call for an INR order for day of procedure-obtained. NESS SERVICES OFFICER documented in this encounter Miscellaneous Notes Op Note - Jeni Barrera - 06/27/2019 10:14 AM CST [facility] Colonoscopy Note Patient Name: Marci Diaz Date of Procedure: June 27, 2019 Endoscopists: Jeni Barrera Assistants: None Procedure: COLONOSCOPY Pre-operative diagnosis: history of colon polyps Post-operative diagnosis: incomplete colonoscopy - poor prep Consent: After discussing benefits and risks of the procedure including infection, bleeding, reaction to medication given for sedation, perforation, and missed lesions, signed informed consent was obtained from the patient Medications: MAC - per anesthesia Procedure Details After initial exam, the patient was judged to be a suitable candidate for MAC sedation. The patient was placed in the left lateral decubitus position. After initial sedative medications were given, an Olympus videocolonoscope was passed without difficulty from the anus to the recto/sigmoid. Procedure was incomplete due to poor prep. Retroflexion was performed in the rectum. Prep Quality: poor Estimated Blood Loss: Minimal Specimens: None Complications: None Findings: 1. Copious thick opaque stool with solid debris precluding adequate visualization Impression: Incomplete colonoscopy - poor prep precluding adequate visualization Recommendation: Reschedule colonoscopy next available with double prep. Jeni Barrera 06/27/2019 10:14 AM [facility] NESS SERVICES OFFICER documented in this encounter Plan of Treatment Not on filedocumented as of this encounter Procedures Procedure Name Priority Date/Time Associated Diagnosis Comme nts INR Routine 06/27/2019 9:26 AM Results f or this BUSINESS SERVICES OFFICER procedure are i n the results section. GLUCOSE BY METER Routine 06/27/2019 9:07 AM Resul ts for this POCT BUSINESS SERVICES OFFICER procedure are i n the results section. EKG CARDIAC - HIM 06/27/2019 SCAN documented in this encounter Results (ABNORMAL) INR (06/27/2019 9:26 AM BUSINESS SERVICES OFFICER) P athologist Signature INR 1.14 (H) 0.90 - 1.10 06/27/2019 [facility] 9:52 AM BUSINESS SERVICES OFFICER [facility] Specimen Anatomical Collection Method / Collection Time Recei gil Time (Source) Location / Volume Laterality Blood specimen STRUCTURE OF RIGHT Venipuncture / 06/27/2019 9:26 9:30 (specimen) UPPER LIMB / Unknown AM BUSINESS SERVICES OFFICER AM BUSINESS SERVICES OFFICER Unknown Narrative [facility] - 06/27/2019 9:52 AM BUSINESS SERVICES OFFICER INR Therapeutic Ranges: Mech. Valve 2.5-3.5 Post Surg. ??2.0-3.0 DVT/PE ?2.0-3.0 Lenny Vasques MD LAB - BLOOD ORDERABLES Performing Organization Address City/State/ZIP Code Phon [place] [id number] [place] [address] [place] [id number], [facility] (ABNORMAL) Glucose by meter POCT (06/27/2019 9:07 AM BUSINESS SERVICES OFFICER) athologist Signature GLUCOSE BY 213 (H) 70 - 139 06/27/2019 [facility] POCT mg/dL 9:07 AM BUSINESS SERVICES OFFICER HOSPITAL POCT RESULTS Specimen Anatomical Collection Method Collection Time Receive d Time (Source) Location / / Volume Laterality Blood specimen 06/27/2019 9:07 AM 019 9:18 (specimen) BUSINESS SERVICES OFFICER AM BUSINESS SERVICES OFFICER Ines Schultz MD LAB - ENTER/EDIT POCT Performing Organization Address City/State/ZIP Code Phon e Number [facility] POCT RESULTS [address] [place] [address] EKG CARDIAC - HIM SCAN (06/27/2019) Narrative This result has an attachment that is no t available. Historical Provider ECG ORDERABLES documented in this encounter Visit Diagnoses Not on filedocumented in this encounter Care Teams Regulatory Affairs Consultant Relationship Specialty Start Date End Date Elyse Paredes MD PCP - General Family Practice 12/22/13 04/21/22 [address] [place], [place] [id number] documented as of this encounter
--- OUTSIDE RECORDS SUMMARY | 2022-07-02 13:37 | XMS_ITS | Encounter Summary ---
:1950 Author Organization [place] Address [address] [place] [address] Care Team Providers Name Role Phone Elyse Paredes MD Primary Care Provider Reason for Visit Reason Comments Consult Encounter Details Date Type Department Care Team Description 01/18/2019 Office Visit - [facility] Dagmar Kang Paroxys mal atrial fibrillation (H); [facility] Coronary artery disease involving little shell tribe coronary artery of little shell tribe heart, angina presence unspecified; [address] S/P TAVR (transcatheter aort ic valve replacement) [phone] [place], [place] [phone] [address] Social History Tobacco Use Types Packs/Day Years Used Date Smoking Tobacco: Never Assessed Sex Assigned at Date Recorded Not on file documented as of this encounter Last Filed Vital Signs Vital Sign Reading Time Taken Comments Blood Pressure - - Pulse - - Temperature - - Respiratory Rate - - Oxygen Saturation - - Inhaled Oxygen Concentration - - Weight 127.4 kg (280 lb 14.4 oz) 01/18/2019 3:16 PM CDT Height 160 cm (5' 3) 01/18/2019 3:16 PM CDT Body Mass Index 49.76 01/18/2019 3:16 PM CDT documented in this encounter Progress Notes Dagmar Kang MD - 01/18/2019 3:10 PM CDT Images from the original note were not included. Progress Notes by Dagmar Kang MD at 01/18/2019 3:10 PM Author: Dagmar Kang MD Service: -- Author Type: Physician Filed: 01/18/2019 5:23 PM Encounter Date: 01/18/2019 Status: Signed Neuropsychiatric Aide: Dagmar Kang MD (Physician) Click to link to [facility] HEART CARE NOTE Thank you, Dr. Paredes, for asking the [facility] Care team to see Ms. Marci Diaz in follow-up regarding her atrial fibrillation and information regarding a watchman device. Assessment/Recommendations Assessment: 1. Paroxysmal atrial fibrillation, resolved following amiodarone therapy. She remains on warfarin anticoagulation to minimize risks of thromboembolic events. She did inquire about the watchman device which would occlude her left atrial appendage and potentially allow her to come off anticoagulation. Idid briefly discuss the procedure with her including the need for pre-and post procedure transesophageal echoes. I did tell her that during the procedure, she would likely require general anesthetic which she is reluctant to undergo. At this point, she is content to remain on warfarin for now. I told her if she is interested in learning further about the watchman device, we could set up a visit with 1 of our [facility] nurse practitioners. 2. Aortic valve stenosis, status post transcatheter aortic valve replacement 2016. Normal valve function based on her last echocardiogram. 3. Coronary artery disease, status post drug-eluting stent placement to the mid LAD May 2017. Patient reports no anginal symptoms. She would like to resume cardiac rehab which I told her was an excellent idea. 4. Breast carcinoma status post lumpectomy with adjuvant radiation therapy. Plan is to start hormonal therapy. Plan: 1. Continue current medications for now 2. Patient will let us know whether she would like to discuss watchman device further with nurse practitioner 3. Follow-up in 1 year if no change in treatment History of Present Illness Ms. Marci Diaz is a 68 y.o. female with history of coronary artery disease and aortic valve stenosis, status post JEFFERSON to the mid LAD and subsequent transcatheter aortic valve replacement in May 2017, subsequent development of atrial fibrillation which resolved following amiodarone therapy who presents back to the office today to discuss possible watchman device. She was seen in follow-up earlier this year after a new diagnosis of breast carcinoma. At that time, was recommended she continue on warfarin anticoagulation until after her initial treatment for her breast cancer. It was suggested that she might be a candidate for a watchman device which prompts her visit today. She reports no complaints of exertional chest discomfort or dyspnea recently and tells me she is actually been feeling quite well and would like to resume cardiac rehab which I encouraged her to do. She reports no sense ofpalpitation or fluttering. She denies orthopnea or PND. ECG (personally reviewed): No ECG today Cardiac Imaging Studies (personally reviewed): No recent imaging studies Physical Examination Review of Systems Vitals: 01/18/19 1516 BP: 100/50 Pulse: 84 Resp: 20 Body mass index is 49.76 kg/m??. Wt Readings from Last 3 Encounters: 01/18/19 (!) 280 lb 14.4 oz (127.4 kg) 08/09/18 (!) 288 lb (130.6 kg) 08/08/18 (!) 288 lb (130.6 kg) General Appearance: Awake, Alert, No acute distress. HEENT: No scleral icterus; the mucous membranes were pink and moist. Neck: No cervical bruits or jugular venous distention Chest: The spine was straight. The chest was symmetric. Lungs: Respirations unlabored; the lungs are clear to auscultation. No wheezing Cardiovascular: Regular rate and rhythm. S1, S2 normal. No murmur, gallop or rub Abdomen: No organomegaly, masses, bruits, or tenderness. Bowels sounds are present Extremities: No peripheral edema bilaterally. Skin: No xanthelasma. Warm, Dry. Musculoskeletal: No tenderness. Neurologic: Mood and affect are appropriate. General: WNL Eyes: WNL Ears/Nose/Throat: WNL Lungs: WNL Heart: WNL Stomach: WNL Bladder: WNL Muscle/Joints: WNL Skin: WNL Nervous System: WNL Mental Health: WNL Blood: WNL Medical History Surgical History Family History Social History Past Medical History: Diagnosis Date ? Bicuspid aortic valve ? COPD (chronic obstructive pulmonary disease) (H) ? Depression ? Diabetes mellitus (H) insulin ? DJD (degenerative joint disease) ? Dyspnea ? Hyperlipidemia ? Hypertension ? Kidney stones ? Morbid obesity (H) ? Nephrolithiasis ? DEDE on CPAP ? Severe aortic stenosis ? Tooth abscess 2016 Past Surgical History: Procedure Laterality Date ? CARDIAC CATHETERIZATION 05/12/2017 ? CV CORONARY ANGIOGRAM N/A 05/12/2017 Procedure: Coronary Angiogram; Surgeon: Ankush Martinez MD; Location: [facility]; Service: ? CV TRANSFEMORAL TRANSCATHETER VALVE REPLACEMENT N/A 07/06/2017 Procedure: Transfemoral Transcatheter Aortic Valve Replacement; Surgeon: Ankush Martinez MD; Location: [facility]; Service: ? TOTAL KNEE ARTHROPLASTY Bilateral Family [...] resource strain: Not on file ? Food insecurity: Worry: Not on file Inability: Not on file ? Transportation needs: Medical: Not on file Non-medical: Not on file Tobacco Use ? Smoking status: Never Smoker ? Smokeless tobacco: Never Used Substance and Sexual Activity ? Alcohol use: No ? Drug use: No ? Sexual activity: Not on file Lifestyle ? Physical activity: Days per week: Not on file Minutes per session: Not on file ? Stress: Not on file Relationships ? Social connections: Talks on phone: Not on file Gets together: Not on file Attends confucianism service: Not on file Active member of club or organization: Not on file Attends meetings of clubs or organizations: Not on file Relationship status: Not on file ? Intimate partner violence: Fear of current or ex partner: Not on file Emotionally abused: Not on file Physically abused: Not on file Forced sexual activity: Not on file Other Topics Concern ? Not on file Social History Narrative ? Not on file Medications Allergies Current Outpatient Medications Medication Sig Dispense Refill ? amoxicillin (AMOXIL) 500 MG tablet Take 500 mg by mouth as needed for Prior to Procedure. ? aspirin 81 MG EC tablet Take 1 tablet (81 mg total) by mouth daily. 0 ? BD INSULIN PEN NEEDLE UF MINI 31 gauge x /16 Ndle USE 4-5 PER DAY UTD 0 ? BD INSULIN PEN NEEDLE UF SHORT 31 gauge x /16 Ndle USE WITH TOUJEO AND VICTOZA BID 3 ? celecoxib (CELEBREX) 200 MG capsule Take 200 mg by mouth daily. ? chlorthalidone (HYGROTEN) 25 MG tablet Take 1 tablet (25 mg total) by mouth daily. 90 tablet 1 ? CRESTOR 10 mg tablet Take 40 mg by mouth daily. ? dulaglutide 0.75 mg/0.5 mL PnIj Inject under the skin. Trucility ? famotidine (FOR PEPCID) 10 MG tablet Take 10 mg by mouth as needed. ? insulin lispro (HUMALOG) 100 unit/mL injection Inject 6-10 Units under the skin 3 (three) times a day before meals. ? LANTUS SOLOSTAR 100 unit/mL (3 mL) pen 30 Units 2 (two) times a day. ? losartan (COZAAR) 50 MG tablet Take 1.5 tablets (75 mg total) by mouth daily. 135 tablet 3 ? metoprolol succinate (TOPROL XL) 25 MG Take 1 tablet (25 mg total) by mouth daily. 90 tablet 1 ? sertraline (ZOLOFT) 100 MG tablet Take 50 mg by mouth daily. Patient takes 50mg daily ? warfarin (COUMADIN/JANTOVEN) 2.5 MG tablet TAKE 1 TABLET BY MOUTH EVERY DAY 90 tablet 0 ? warfarin (COUMADIN/JANTOVEN) 5 MG tablet TAKE 1 TABLET BY MOUTH DAILY. ADJUST DOSE BASED ON INR RESULTS DIRECTED 30 tablet 0 No current facility-administered medications for this visit. Allergies Allergen Reactions ? Lisinopril Cough ? Metformin Nausea And Vomiting ? Erythromycin Base Rash Lab Results Chemistry/lipid CBC Cardiac Enzymes/BNP/TSH/INR Lab Results Component Value Date CHOL 165 03/23/2018 HDL 60 03/23/2018 LDLCALC 75 03/23/2018 TRIG 148 03/23/2018 CREATININE 1.32 (H) 09/01/2018 BUN 25 (H) 09/01/2018 K 4.3 09/01/2018 NA 140 09/01/2018 CL 102 09/01/2018 CO2 29 09/01/2018 Lab Results Component Value Date WBC 7.3 08/05/2017 HGB 12.6 08/05/2017 HCT 37.9 08/05/2017 MCV 90 08/05/2017 PLT 157 08/05/2017 Lab Results Component Value Date BNP 25 07/05/2017 TSH 5.91 (H) 03/23/2018 INR 2.9 11/21/2018 documented in this encounter Miscellaneous Notes Patient Instructions - HE - Dagmar Kang MD - 01/18/2019 3:10 PM CDT 1. Continue current medications 2. Let us know if you want to pursue a Watchman device procedure. If so, we will want to set up an appt. With Roland Salazar or Ruby 3. Follow up in 1 year documented in this encounter Plan of Treatment Not on filedocumented as of this encounter Visit Diagnoses Diagnosis Paroxysmal atrial fibrillation (H) Atrial fibrillation Coronary artery disease involving little shell tribe coronary artery of little shell tribe heart, angina presence unspecified S/P TAVR (transcatheter aortic valve rep lacement) documented in this encounter Care Teams Surgical Elastic Knitter Hand Frame Relationship Specialty Start Date End Date Elyse Paredes MD PCP - General Family Practice 12/22/13 04/21/22 [address] [place] [address] documented as of this encounter
--- OUTSIDE RECORDS SUMMARY | 2022-07-02 13:37 | XMS_ITS | Encounter Summary ---
:1950 Author Organization [place] Address [address] [place] [address] Care Team Providers Name Role Phone Elyse Paredes MD Primary Care Provider Reason for Visit Reason Comments Medication Question Warfarin hold orders Encounter Details Date Type Department Care Team Description 06/15/2019 Communication - [facility] Philippe, Medicat ion Question [facility] PAYTON Hickey (Warfarin hold [place] orders) [address] [facility] [address] [place] [phone] Social History Tobacco Use Types Packs/Day Years Used Date Smoking Tobacco: Never Assessed Sex Assigned at Date Recorded Not on file documented as of this encounter Miscellaneous Notes Telephone Encounter - Edelmira Paez - 06/16/2019 8:19 AM CST Left detailed message for Kiarra informing her of Dr. Kang's response/recommendations - requested call back with any further questions/concerns. mg WORK CIGAR MACHINE OPERATOR Telephone Encounter - Dagmar Kang MD - 06/15/2019 5:38 PM CST Okay to come off warfarin 5 days ahead of her procedure. She does not need any bridging. She should restart her warfarin the night of her colonoscopy. Dagmar Kang WORK CIGAR MACHINE OPERATOR Telephone Encounter - Edelmira Paez - 06/15/2019 12:58 PM CST Please address PCP clinic request for approval to hold Warfarin for colonoscopy. mg WORK CIGAR MACHINE OPERATOR Telephone Encounter - Edelmira Paez - 06/15/2019 12:57 PM CST ----- Message from Evelio Handy sent at 06/15/2019 11:09 AM SOFT WORK CIGAR MACHINE OPERATOR ----- Regarding: hold/bridge orders - upcoming colonoscopy General phone call: Caller: PCP office Primary vehicle service agent: Dr Kang Detailed reason for call: Calling from [facility] - Dr Torres office (PCP) : Pt has colonoscopy - will need to hold coumadin (5 days)- asking if this is ok - Bridge/Hold orders ---Kiarra -daycare worker # [phone] New or active symptoms? na Best phone number: above Best time to contact: any Ok to leave a detailed message? na Device? no Additional Info: WORK CIGAR MACHINE OPERATOR documented in this encounter Plan of Treatment Not on filedocumented as of this encounter Visit Diagnoses Not on filedocumented in this encounter Care Teams Surgery Scheduler Relationship Specialty Start Date End Date Elyse Paredes MD PCP - General Family Practice 12/22/13 04/21/22 [address] [place] [address] documented as of this encounter
--- OUTSIDE RECORDS SUMMARY | 2022-07-02 13:37 | XMS_ITS | Encounter Summary ---
:1950 Author Organization [place] Address [address] [place] [address] Care Team Providers Name Role Phone Elyse Paredes MD Primary Care Provider Encounter Details Date Type Department Care Team Description 07/10/2019 [facility] dorota Farmer [address] [place] [phone] Social History Tobacco Use Types Packs/Day Years Used Date Smoking Tobacco: Never Assessed Sex Assigned at Date Recorded Not on file documented as of this encounter Progress Notes Cinda Patiño - 07/10/2019 10:26 AM CST Images from the original note were not included. Progress Notes by Cinda Patiño RN at 07/10/2019 10:26 AM Author: Cinda Patiño RN Service: -- Author Type: Patient Access Filed: 07/21/2019 10:00 PM Encounter Date: 07/10/2019 Status: Signed Intellectual Property Legal Assistant: Cinda Patiño RN (Registered Nurse) Zestar Study Device Return Marci Diaz returned all the devices for the Zestar study. Marci Diaz denies medication changes or adverse events since last visit. Marci Diaz has now completed their participation in the Zestar study. Thank you for your gift of participation. Cinda Patiño ANCE MECHANIC documented in this encounter Plan of Treatment Not on filedocumented as of this encounter Visit Diagnoses Not on filedocumented in this encounter Care Teams Court Attendant Relationship Specialty Start Date End Date Elyse Paredes MD PCP - General Family Practice 12/22/13 04/21/22 [address] [place] [address] documented as of this encounter
--- OUTSIDE RECORDS SUMMARY | 2022-07-02 13:37 | XMS_ITS | Encounter Summary ---
:1950 Author Organization [place] Address [address] [place] [address] Care Team Providers Name Role Phone Elyse Paredes MD Primary Care Provider Reason for Visit Reason Comments Medication Refill losartan Encounter Details Date Type Department Care Team Description 05/08/2019 [facility] Gabrielle Golden Refill [facility] Dora RN (losartan) [address] [place] [address] Social History Tobacco Use Types Packs/Day Years Used Date Smoking Tobacco: Never Assessed Sex Assigned at Date Recorded Not on file documented as of this encounter Plan of Treatment Not on filedocumented as of this encounter Visit Diagnoses Diagnosis Benign essential hypertension Essential hypertension, benign documented in this encounter Care Teams Cleaning Maid Relationship Specialty Start Date End Date Elyse Paredes MD PCP - General Family Practice 12/22/13 04/21/22 [address] [place] [address] documented as of this encounter
--- OUTSIDE RECORDS SUMMARY | 2022-07-02 13:37 | XMS_ITS | Encounter Summary ---
:1950 Author Organization [place] Address [address] [place] [address] Care Team Providers Name Role Phone Elyse Paredes MD Primary Care Provider Reason for Visit Reason Comments Anticoagulation [facility] Referral Encounter Details Date Type Department Care Team Description 01/06/2019 Communication - [facility] Joo Trinh ([facility] ic PAYTON Thompsonemployment security officer) [address] [place] [address] Social History Tobacco Use Types Packs/Day Years Used Date Smoking Tobacco: Never Assessed Sex Assigned at Date Recorded Not on file documented as of this encounter Miscellaneous Notes Telephone Encounter - Donna Trinh RN - 01/06/2019 5:02 PM CDT Anticoagulation Transition of Care Marci Diaz was referred to transition management to [facility]. Warfarin indication: Atrial Fibrillation Current INR goal 2.0-3.0 Date of last cardiology office visit 08/08/18 INR goal range standard for indication(s). Updated INR standing orders and anticoagulation referral renewal placed. Please contact the anticoagulation clinic if you have questions on the parameters of the renewal. Donna Trinh RN documented in this encounter Plan of Treatment Not on filedocumented as of this encounter Visit Diagnoses Diagnosis Persistent atrial fibrillation (H) Atrial fibrillation S/P TAVR (transcatheter aortic valve rep lacement) documented in this encounter Care Teams Track Equipment Operator Relationship Specialty Start Date End Date Elyse Paredes MD PCP - General Family Practice 12/22/13 04/21/22 [address] [place] [address] documented as of this encounter
--- OUTSIDE RECORDS SUMMARY | 2022-07-02 13:38 | XMS_ITS | Encounter Summary ---
:1950 Author Organization [place] Address [address] [place] [address] Care Team Providers Name Role Phone Elyse Paredes MD Primary Care Provider Encounter Details Date Type Department Care Team Description 11/21/2018 Ambulatory - [facility] S/P TAVR [facility] St. Perezu dorota (transcatheter aortic [address] valve replacement) [place] [address] Social History Tobacco Use Types Packs/Day Years Used Date Smoking Tobacco: Never Assessed Sex Assigned at Date Recorded Not on file documented as of this encounter Progress Notes Gabrielle Golden - 11/21/2018 11:15 AM CDT INR 2.9 After talking with pt and discussing history of greens/salads and medication change. Pt willcontinue with current diet and dosing of Warfarin. Continue with moderation of Vit K and green leafyvegetables. Cautioned to call with increase bruising or bleeding. Reminded to call with medication change especially antibiotic. Call with any questions or concerns or any up coming procedures. Cautioned about using Herbal medication. Return to PCP documented in this encounter Miscellaneous Notes Patient Instructions - HE - Gabrielle Golden - 11/21/2018 11:15 AM CDT INR After talking with pt and discussing history of greens/salads and medication change. Pt will continue with current diet and dosing of Warfarin. Continue with moderation of Vit K and green leafy vegetables. Cautioned to call with increase bruising or bleeding. Reminded to call with medication change especially antibiotic. Call with any questions or concerns or any up coming procedures. Cautioned about using Herbal medication. documented in this encounter Plan of Treatment Not on filedocumented as of this encounter Procedures Procedure Name Priority Date/Time Associated Diagnosis Comme nts INR POINT OF CARE Routine 11/21/2018 Results fo r this procedure are in the resu lts section. documented in this encounter Results INR point of care (11/21/2018) P athologist Signature INR 2.9 Specimen (Source) Anatomical Location Collection Method / Collectio n Time Received Time / Laterality Volume Blood specimen 11/21/2018 (specimen) [facility] - BLOOD ORDERABLES documented in this encounter Visit Diagnoses Diagnosis S/P TAVR (transcatheter aortic valve rep lacement) documented in this encounter Care Teams Bleach Chlorinator Relationship Specialty Start Date End Date Elyse Paredes MD PCP - General Family Practice 12/22/13 04/21/22 [address] [place] [address] documented as of this encounter
--- OUTSIDE RECORDS SUMMARY | 2022-07-02 13:38 | XMS_ITS | Encounter Summary ---
:1950 Author Organization [facility] Address [address] [place] [address]. [place] [address] Care Team Providers Name Role Phone Elyse Paredes MD Primary Care Provider Encounter Details Date Type Department Care Team Description 09/01/2018 [facility] - [facility] [address] [phone] Social History Tobacco Use Types Packs/Day Years Used Date Smoking Tobacco: Never Assessed Sex Assigned at Date Recorded Not on file documented as of this encounter Plan of Treatment Not on filedocumented as of this encounter Procedures Procedure Name Priority Date/Time Associated Diagnosis Comme nts BASIC METABOLIC Routine 09/01/2018 9:36 AM Result s for this PANEL APPLICATION INTEGRATION ENGINEER procedure are i n the results section. documented in this encounter Results (ABNORMAL) Basic metabolic panel (09/01/2018 9:36 AM APPLICATION INTEGRATION ENGINEER) [facility] Method Time Signature Sodium 140 136 - 145 09/01/2018 [facility] mmol/L 7:27 PM [facility] Potassium 4.3 3.5 - 5.0 09/01/2018 [facility] mmol/L 7:27 PM [facility] Chloride 102 98 - 107 09/01/2018 [facility] mmol/L 7:27 PM [facility] Carbon Dioxide 29 22 - 31 09/01/2018 [facility] (CO2) mmol/L 7:27 PM [facility] Anion Gap 9 5 - 18 09/01/2018 [facility] mmol/L 7:27 PM [facility] Glucose 179 (H) 70 - 125 09/01/2018 [facility] mg/dL 7:27 PM [facility] Calcium 9.8 8.5 - 10.5 09/01/2018 [facility] mg/dL 7:27 PM [facility] Urea Nitrogen 25 (H) 8 - 22 09/01/2018 [facility] mg/dL 7:27 PM [facility] Creatinine 1.32 (H) 0.60 - 09/01/2018 [facility] 1.10 mg/dL 7:27 PM [facility] GFR Estimate If 49 (L) >60 09/01/2018 [facility] Black mL/min/1.7 7:[address] GFR Estimate 40 (L) >60 09/01/2018 [facility] mL/min/1.7 7:[address] [facility] Specimen Anatomical Collection Method Collection Time Receive d Time (Source) Location / / Volume Laterality Blood specimen 09/01/2018 9:36 AM 019 6:57 (specimen) APPLICATION INTEGRATION ENGINEER PM APPLICATION INTEGRATION ENGINEER Narrative [facility] - 09/01/2018 7:27 PM APPLICATION INTEGRATION ENGINEER Fasting Glucose reference range is 70-99 mg/dL per [place] [employer] (ADA) charles martinez. Elyse Paredes MD LAB - BLOOD ORDERABLES Performing Organization Address City/State/ZIP Code Phon e Number [place] [address] [id number] [place] [address] LABORATORY [facility] [address] [place] [address], [facility] documented in this encounter Visit Diagnoses Not on filedocumented in this encounter Care Teams Labelling Machine Operator Relationship Specialty Start Date End Date Elyse Paredes MD PCP - General Family Practice 12/22/13 04/21/22 [address] [place] [address] documented as of this encounter
--- OUTSIDE RECORDS SUMMARY | 2022-07-02 13:38 | XMS_ITS | Encounter Summary ---
:1950 Author Organization [place] Address [address] [place] [address] Care Team Providers Name Role Phone Elyse Paredes MD Primary Care Provider Encounter Details Date Type Department Care Team Description 10/24/2018 Ambulatory - [facility] S[facility] TAVR [facility] dorota (transcatheter aortic [address] valve replacement) [place] [address] Social History Tobacco Use Types Packs/Day Years Used Date Smoking Tobacco: Never Assessed Sex Assigned at Date Recorded Not on file documented as of this encounter Progress Notes Gabrielle Golden - 10/24/2018 11:15 AM CDT INR 2.5 After talking with pt and discussing history [...] using Herbal medication. documented in this encounter Miscellaneous Notes Patient Instructions - HE - Gabrielle Golden - 10/24/2018 11:15 AM CDT INR 2.5 After talking with pt and discussing history [...] Comme nts INR POINT OF CARE Routine 10/24/2018 Results fo r this procedure are in the resu lts section. documented in this encounter Results INR point of care (10/24/2018) P athologist Signature INR 2.5 Specimen (Source) Anatomical Location Collection Method / Collectio n Time Received Time / Laterality Volume Blood specimen 10/24/2018 (specimen) Ankush Martinez MD LAB - BLOOD ORDERABLES documented in this encounter Visit Diagnoses Diagnosis S/P TAVR (transcatheter aortic valve rep lacement) documented in this encounter Care Teams Director Facilities Maintenance Relationship Specialty Start Date End Date Elyse Paredes MD PCP - General Family Practice 12/22/13 04/21/22 [address] [address] documented as of this encounter
--- OUTSIDE RECORDS SUMMARY | 2022-07-02 13:38 | XMS_ITS | Encounter Summary ---
:1950 Author Organization [place] Address [address] [place] [address] Care Team Providers Name Role Phone Elyse Paredes MD Primary Care Provider Encounter Details Date Type Department Care Team Description 08/15/2018 Ambulatory - [facility] S/P TAVR [facility] Debby dorota (transcatheter aortic [address] valve replacement) [place] [address] Social History Tobacco Use Types Packs/Day Years Used Date Smoking Tobacco: Never Assessed Sex Assigned at Date Recorded Not on file documented as of this encounter Progress Notes Gabrielle Golden RN - 08/15/2018 1:15 PM CST INR 1.3 off amiodarone. Will increase dose and retest in one week. After talking with pt and discussing history of greens/salads and medication change. Pt will continue with current diet and dosing of Warfarin. Continue with moderation of Vit K and green leafy vegetables. Cautioned to call with increase bruising or bleeding. Reminded to call with medication change especially antibiotic. Call with anyquestions or concerns or any up coming procedures. Cautioned about using Herbal medication. STANT SALES MANAGER documented in this encounter Miscellaneous Notes Patient Instructions - HE - Gabrielle Golden RN - 08/15/2018 1:15 PM ASSISTANT SALES MANAGER Increase dose. STANT SALES MANAGER documented in this encounter Plan of Treatment Not on filedocumented as of this encounter Procedures Procedure Name Priority Date/Time Associated Diagnosis Comme nts INR POINT OF CARE Routine 08/15/2018 Results fo r this procedure are in the resu lts section. documented in this encounter Results INR point of care (08/15/2018) P athologist Signature INR 1.3 Specimen (Source) Anatomical Location Collection Method / Collectio n Time Received Time / Laterality Volume Blood specimen 08/15/2018 (specimen) Lorenar Michelle CLEMENTS LAB - BLOOD ORDERABLES documented in this encounter Visit Diagnoses Diagnosis S/P TAVR (transcatheter aortic valve rep lacement) documented in this encounter Care Teams Application Security Developer Relationship Specialty Start Date End Date Elyse Paredes MD PCP - General Family Practice 12/22/13 04/21/22 1548 [place] [address] documented as of this encounter
--- OUTSIDE RECORDS SUMMARY | 2022-07-02 13:38 | XMS_ITS | Encounter Summary ---
:1950 Author Organization [place] Address [address] [place] [address] Care Team Providers Name Role Phone Elyse Paredes MD Primary Care Provider Encounter Details Date Type Department Care Team Description 10/31/2018 Ambulatory - [facility] S/P coronary artery [facility] [address] [place] [phone] Social History Tobacco Use Types Packs/Day Years Used Date Smoking Tobacco: Never Assessed Sex Assigned at Date Recorded Not on file documented as of this encounter Plan of Treatment Not on filedocumented as of this encounter Procedures Procedure Name Priority Date/Time Associated Diagnosis Comme nts GLUCOSE BY METER Routine 10/31/2018 11:07 AM Resu lts for this POCT CDT procedure are i n the results section. documented in this encounter Results (ABNORMAL) Glucose by meter POCT (10/31/2018 11:07 AM CDT) P athologist Signature GLUCOSE BY 181 (H) 70 - 139 10/31/2018 [facility] POCT mg/dL 11:07 AM CDT HOSPITAL POCT RESULTS Specimen Anatomical Collection Method Collection Time Receive d Time (Source) Location / / Volume Laterality Blood specimen CAPILLARY BLOOD / 10/31/2018 11:07 04/0 09/2018 9:09 (specimen) Unknown AM CDT AM CDT Historical Provider LAB - ENTER/EDIT POCT Performing Organization Address City/State/ZIP Code Phon e Number [facility] POCT RESULTS [address] [place] [address] documented in this encounter Visit Diagnoses Diagnosis S/P coronary artery stent placement Postsurgical percutaneous transluminal c oronary angioplasty status documented in this encounter Care Teams Smasher Hand Relationship Specialty Start Date End Date Elyse Paredes MD PCP - General Family Practice 12/22/13 04/21/22 [address] [place] [address] documented as of this encounter
--- OUTSIDE RECORDS SUMMARY | 2022-07-02 13:38 | XMS_ITS | Encounter Summary ---
:1950 Author Organization [place] Address [address] [place] [address] Care Team Providers Name Role Phone Elyse Paredes MD Primary Care Provider Encounter Details Date Type Department Care Team Description 10/10/2018 Ambulatory - [facility] S/P TAVR [facility] Perezu dorota (transcatheter aortic [address] valve replacement) [place] [address] Social History Tobacco Use Types Packs/Day Years Used Date Smoking Tobacco: Never Assessed Sex Assigned at Date Recorded Not on file documented as of this encounter Progress Notes Gabrielle Golden RN - 10/10/2018 11:15 AM CDT INR 3.5 Continue current management dosing of Warfarin. Continue diet of moderate Vitamin K intake. Discussed with pt the need to call with questions or concerns or any change in medication especially herbal medication or OTC. Call with increased bleeding or bruising or any upcoming procedures. Decrease dose. Retest in 2 weeks. documented in this encounter Miscellaneous Notes Patient Instructions - HE - Gabrielle Golden RN - 10/10/2018 11:15 AM CDT INR 3.5 After talking with pt and discussing history [...] Comme nts INR POINT OF CARE Routine 10/10/2018 Results fo r this procedure are in the resu lts section. documented in this encounter Results INR point of care (10/10/2018) P athologist Signature INR 3.5 Specimen (Source) Anatomical Location Collection Method / Collectio n Time Received Time / Laterality Volume Blood specimen 10/10/2018 (specimen) Ankush Martinez MD LAB - BLOOD ORDERABLES documented in this encounter Visit Diagnoses Diagnosis S/P TAVR (transcatheter aortic valve rep lacement) documented in this encounter Care Teams Packing Room Worker Relationship Specialty Start Date End Date Elyse Paredes MD PCP - General Family Practice 12/22/13 04/21/22 [address] [address] documented as of this encounter
--- OUTSIDE RECORDS SUMMARY | 2022-07-02 13:38 | XMS_ITS | Encounter Summary ---
:1950 Author Organization [facility] Address [address] [place] [address] Care Team Providers Name Role Phone Elyse Paredes MD Primary Care Provider Reason for Visit Reason Comments Medication Refill metoprolol, chlor Encounter Details Date Type Department Care Team Description 08/09/2018 Communication - [facility] Gabrielle Golden tion Refill [facility] Dora RN (metoprolol, ch marcella) [place] [address] [facility] [address] [place] [address] Social History Tobacco Use Types Packs/Day Years Used Date Smoking Tobacco: Never Assessed Sex Assigned at Date Recorded Not on file documented as of this encounter Plan of Treatment Not on filedocumented as of this encounter Visit Diagnoses Diagnosis S/P TAVR (transcatheter aortic valve rep lacement) documented in this encounter Care Teams Roads Superintendent Relationship Specialty Start Date End Date Elyse Paredes MD PCP - General Family Practice 12/22/13 04/21/22 1540 [place] [address] documented as of this encounter
--- OUTSIDE RECORDS SUMMARY | 2022-07-02 13:38 | XMS_ITS | Encounter Summary ---
:1950 Author Organization [place] Address [address] [place] [address] Care Team Providers Name Role Phone Elyse Paredes MD Primary Care Provider Encounter Details Date Type Department Care Team Description 09/[facility]/2018 [facility] Provider, Karthik raya Social History Tobacco Use Types Packs/Day Years Used Date Smoking Tobacco: Never Assessed Sex Assigned at Date Recorded Not on file documented as of this encounter Plan of Treatment Not on filedocumented as of this encounter Visit Diagnoses Not on filedocumented in this encounter Care Teams Shovel Loader Operator Relationship Specialty Start Date End Date Elyse Paredes MD PCP - General Family Practice 12/22/13 04/21/22 1540 [place] [address] documented as of this encounter
--- OUTSIDE RECORDS SUMMARY | 2022-07-02 13:38 | XMS_ITS | Encounter Summary ---
:1950 Author Organization [facility] Address [address] [place] [address]. [place] [address] Care Team Providers Name Role Phone Elyse Paredes MD Primary Care Provider Reason for Visit Reason Onset Date Comments Erroneous encounter-disregard 10/18/2018 Error Encounter Details Date Type Department Care Team Description 10/18/2018 Telephone [facility] Endocrinolo Gabrielle West Erroneous [address] [facility] [address] [place]IA Cartwrihgt encounter-disregard [address] [place] [address] (Error) [place], [place] 8[phone] [place], [place] [phone] (Wo rk) Social History Tobacco Use Types Packs/Day Years Used Date Smoking Tobacco: Never Assessed Sex Assigned at Date Recorded Not on file documented as of this encounter Plan of Treatment Not on filedocumented as of this encounter Visit Diagnoses Not on filedocumented in this encounter Care Teams Loan Coordinator Relationship Specialty Start Date End Date Elyse Paredes MD PCP - General Family Practice 12/22/13 04/21/22 1540 [place] [address] documented as of this encounter
--- OUTSIDE RECORDS SUMMARY | 2022-07-02 13:38 | XMS_ITS | Encounter Summary ---
:1950 Author Organization [facility] Address [address] [place] [address]. [place] [address] Care Team Providers Name Role Phone Dagmar Kang MD Unavailable Elyse Paredes MD Primary Care Provider Encounter Details Date Type Department Care Team Description 12/05/2018 Records - [facility] HE CONVERSION Scan, Non-Provider Social History Tobacco Use Types Packs/Day Years Used Date Smoking Tobacco: Never Assessed Sex Assigned at Date Recorded Not on file documented as of this encounter Plan of Treatment Not on filedocumented as of this encounter Visit Diagnoses Not on filedocumented in this encounter Care Teams Surg Nurse Relationship Specialty Start Date End Date Elyse Paredes MD PCP - General Family Practice 12/22/13 04/21/22 15[address] [place] [address] Dagmar Kang MD Assigned Heart and 02/14/21 02/27/22 [address] [facility], Vascular Provider [address] [place] [address] documented as of this encounter
--- OUTSIDE RECORDS SUMMARY | 2022-07-02 13:38 | XMS_ITS | Encounter Summary ---
:1950 Author Organization [facility] Address [address] [place] [address] Care Team Providers Name Role Phone Elyse Paredes MD Primary Care Provider Reason for Visit Reason Comments Appointment Diabetes Education Encounter Details Date Type Department Care Team Description 12/06/2018 [facility] Medical Specialties PAYTON Lombardi (Diabete s Education Patient Access ) [address] [place] [address] Social History Tobacco Use Types Packs/Day Years Used Date Smoking Tobacco: Never Assessed Sex Assigned at Date Recorded Not on file documented as of this encounter Miscellaneous Notes Telephone Encounter - [place] Provider - 12/08/2018 11:39 AM CDT I requested labs and office notes from Hazel Daniels. Shayy gave her direct number stephan we are inneeds of something else. [phone] Telephone Encounter - Zuly Kam - 12/06/2018 7:42 AM CDT Referral received w/no records on 12.05.2018 @ 5:02 Please call Hazel Daniels to obtain records before contact the patient to schedule Hazel @ [phone] documented in this encounter Plan of Treatment Not on filedocumented as of this encounter Visit Diagnoses Not on filedocumented in this encounter Care Teams Consumer Services Consultant Relationship Specialty Start Date End Date Elyse Paredes MD PCP - General Family Practice 12/22/13 04/21/22 [address] [place] [address] documented as of this encounter
--- OUTSIDE RECORDS SUMMARY | 2022-07-02 13:38 | XMS_ITS | Encounter Summary ---
:1950 Author Organization [facility] Address [address] [place] [address] Care Team Providers Name Role Phone Elyse Paredes MD Primary Care Provider Reason for Visit Reason Comments Other hold orders for GI procedure ; no schedule but will do soon. Encounter Details Date Type Department Care Team Description 10/26/2018 Communication - [facility] Gabrielle Golden (hold orders [facility] , RN for GI procedur e; [facility] sc... [address] [facility] [address] [place] [address] Social History Tobacco Use Types Packs/Day Years Used Date Smoking Tobacco: Never Assessed Sex Assigned at Date Recorded Not on file documented as of this encounter Miscellaneous Notes Telephone Encounter - Gabrielle Golden RN - 10/26/2018 3:40 PM CDT Images from the original note were not included. Telephone Encounter by Gabrielle Golden RN at 10/26/2018 3:40 PM Author: Gabrielle Golden RN Service: -- Author Type: Registered Nurse Filed: 10/26/2018 3:41 PM Encounter Date: 10/26/2018 Status: Signed Shift Production Supervisor: Gabrielle Golden RN (Registered Nurse) hold orders for GI procedure (no schedule but will do soon. ) Nicole Salazar CNP ??You 4 minutes ago (3:35 PM) Ok. ??No bridging. Roland Routing Comment You ??Hommerding, Nicole A., FINAL RAIL CUTTER 36 minutes ago (3:03 PM) Pt going for GI procedure. Concerns about stopping Warfarin for 4 days? Routing Telephone Encounter - Gabrielle Golden - 10/26/2018 3:00 PM CDT Pt going for GI procedure in the near future. stardard hold for Warfarin 4 days. Will notify Roland Salazar RADIOLOGIC TECH about procedure. Retest INR 1 week after restart. documented in this encounter Plan of Treatment Not on filedocumented as of this encounter Visit Diagnoses Not on filedocumented in this encounter Care Teams Electronic Tech Relationship Specialty Start Date End Date Elyse Paredes MD PCP - General Family Practice 12/22/13 04/21/22 1540 [place] [address] documented as of this encounter
--- OUTSIDE RECORDS SUMMARY | 2022-07-02 13:38 | XMS_ITS | Encounter Summary ---
:1950 Author Organization [place] Address [address] [place] [address] Care Team Providers Name Role Phone Dagmar Kang MD Unavailable Elyse Paredes MD Primary Care Provider Dagmar Kang MD Unavailable Raghu Bae MD Primary Care Provider [phone] Nicole Salazar APRN TRANSPORTATION ASSISTANT Unavailable [phone] Encounter Details Date Type Department Care Team Description 08/09/2018 Records - [facility] HE CONVERSION Scan, Non-Provider Social History Tobacco Use Types Packs/Day Years Used Date Smoking Tobacco: Never Assessed Sex Assigned at Date Recorded Not on file documented as of this encounter Plan of Treatment Not on filedocumented as of this encounter Visit Diagnoses Not on filedocumented in this encounter Care Teams Order Processing Clerk Relationship Specialty Start Date End Date Elyse Paredes MD PCP - General Family Practice 12/22/13 04/21/22 1540 [place] [address] Raghu Bae PCP - General Emergency Medicine 04/22/22 MD [place] [facility] [address] [place] [address] Dagmar Kang MD Assigned Heart and 02/14/21 02/27/22 [address] [facility], Vascular Provider [address] [place] [address] Dagmar Kang MD Assigned Heart and 03/21/22 04/24/22 [address] [facility], Vascular Provider [address] [place] [address] Nicole Salazar, Assigned Heart and 04/25/22 [employer] MARKER TRANSPORTATION ASSISTANT Vascular Provider [address] [facility] [address] [place] [address] documented as of this encounter
--- OUTSIDE RECORDS SUMMARY | 2022-07-02 13:38 | XMS_ITS | Encounter Summary ---
:1950 Author Organization [facility] Address [address] [place] [address] Care Team Providers Name Role Phone Elyse Paredes MD Primary Care Provider Encounter Details Date Type Department Care Team Description 10/10/2018 Ambulatory - [facility] S/P coronary artery [facility] [address] [place] [phone] Social History Tobacco Use Types Packs/Day Years Used Date Smoking Tobacco: Never Assessed Sex Assigned at Date Recorded Not on file documented as of this encounter Plan of Treatment Not on filedocumented as of this encounter Procedures Procedure Name Priority Date/Time Associated Diagnosis Comme nts GLUCOSE BY METER Routine 10/10/2018 11:04 AM Resu lts for this POCT CDT procedure are i n the results section. documented in this encounter Results (ABNORMAL) Glucose by meter POCT (10/10/2018 11:04 AM CDT) P athologist Signature GLUCOSE BY 226 (H) 70 - 139 10/10/2018 [facility] METER POCT mg/dL 11:04 AM CDT HOSPITAL POCT RESULTS Specimen Anatomical Collection Method Collection Time Receive d Time (Source) Location / / Volume Laterality Blood specimen CAPILLARY BLOOD / 10/10/2018 11:04 09/30 7:59 (specimen) Unknown AM CDT AM CDT Historical Provider LAB - ENTER/EDIT POCT Performing Organization Address City/State/ZIP Code Phon e Number [facility] POCT RESULTS [address] [place] [address] documented in this encounter Visit Diagnoses Diagnosis S/P coronary artery stent placement Postsurgical percutaneous transluminal c oronary angioplasty status documented in this encounter Care Teams Panel Saw Operator Relationship Specialty Start Date End Date Elyse Paredes MD PCP - General Family Practice 12/22/13 04/21/22 [address] [place] [address] documented as of this encounter
--- OUTSIDE RECORDS SUMMARY | 2022-07-02 13:38 | XMS_ITS | Encounter Summary ---
:1950 Author Organization [facility] Address [address] [place] [address] Care Team Providers Name Role Phone Elyse Paredes MD Primary Care Provider Encounter Details Date Type Department Care Team Description 09/12/2018 Ambulatory - [facility] S/P TAVR [facility] Heart [facility] Perezu dorota (transcatheter aortic [address] valve replacement) [place] [address] Social History Tobacco Use Types Packs/Day Years Used Date Smoking Tobacco: Never Assessed Sex Assigned at Date Recorded Not on file documented as of this encounter Progress Notes Gabrielle Golden RN - 09/12/2018 9:45 AM CST INR 2.6 After talking with pt and discussing history of greens/salads and medication change. Pt willcontinue with current diet and dosing of Warfarin. Continue with moderation of Vit K and green leafyvegetables. Cautioned to call with increase bruising or bleeding. Reminded to call with medication change especially antibiotic. Call with any questions or concerns or any up coming procedures. Cautioned about using Herbal medication. [facility] ANALYST documented in this encounter Miscellaneous Notes Patient Instructions - HE - Gabrielle Golden, RN - 09/12/2018 9:45 AM SECUR[facility] OPER[employer] C[facility] ANALYST Hold for procedure [facility] ANALYST documented in this encounter Plan of Treatment Not on filedocumented as of this encounter Procedures Procedure Name Priority Date/Time Associated Diagnosis Comme nts INR POINT OF CARE Routine 09/12/2018 Results fo r this procedure are in the resu lts section. documented in this encounter Results INR point of care (09/12/2018) P athologist Signature INR 2.6 Specimen (Source) Anatomical Location Collection Method / Collectio n Time Received Time / Laterality Volume Blood specimen 09/12/2018 (specimen) Ankush Martinez MD LAB - BLOOD ORDERABLES documented in this encounter Visit Diagnoses Diagnosis S/P TAVR (transcatheter aortic valve rep lacement) documented in this encounter Care Teams Emblem Drawer In Relationship Specialty Start Date End Date Elyse Paredes MD PCP - General Family Practice 12/22/13 04/21/22 [address] [address] documented as of this encounter
--- OUTSIDE RECORDS SUMMARY | 2022-07-02 13:38 | XMS_ITS | Encounter Summary ---
:1950 Author Organization [place] Address [address] [place] [address] Care Team Providers Name Role Phone Elyse Paredes MD Primary Care Provider Reason for Visit Reason Onset Date Comments Medication Question 10/21/2018 Warfarin Encounter Details Date Type Department Care Team Description 10/21/2018 Telephone [facility] Endocrinolo Gabrielle West Medication Question [address] [facility] LIL[place] (Warfarin) 3rd Floor [address] [place], [place] [address] [place], [place] [phone] (Wo rk) Social History Tobacco Use Types Packs/Day Years Used Date Smoking Tobacco: Never Assessed Sex Assigned at Date Recorded Not on file documented as of this encounter Miscellaneous Notes Telephone Encounter - Kenneth Guerra - 10/21/2018 2:41 PM CDT [facility] Call Center Phone Message May a detailed message be left on voicemail: yes Reason for Call: Other: [facility] calling in regards to PT. They state that PT sees Gabrielle Golden, but there is nothing in this chart, and I was unable to find another chart with this information. They are looking for information on PT's Warfarin. Please follow up with [facility] as soon as possible at [phone]. Action Taken: Message routed to: [facility] Endo documented in this encounter Plan of Treatment Not on filedocumented as of this encounter Visit Diagnoses Not on filedocumented in this encounter Care Teams Candy Feeder Relationship Specialty Start Date End Date Elyse Paredes MD PCP - General Family Practice 12/22/13 04/21/22 [address] [place] [address] [place] [address] documented as of this encounter
--- OUTSIDE RECORDS SUMMARY | 2022-07-02 13:38 | XMS_ITS | Encounter Summary ---
:1950 Author Organization [place] Address [address] [place] [address] Care Team Providers Name Role Phone Elyse Paredes MD Primary Care Provider Encounter Details Date Type Department Care Team Description 09/05/2018 Ambulatory - [facility] S/P TAVR [facility] dorota (transcatheter aortic [address] valve replacement) [place] [address] Social History Tobacco Use Types Packs/Day Years Used Date Smoking Tobacco: Never Assessed Sex Assigned at Date Recorded Not on file documented as of this encounter Progress Notes Gabrielle Golden RN - 09/05/2018 11:15 AM CST INR 5.5 pt has not idea why INR is higher. Will hold Warfarin today and then 5 mg Wednesday and 2.5 mg all days. Retest in one week. After talking with pt [...] coming procedures. Cautioned about using Herbal medication. GER MANAGING documented in this encounter Miscellaneous Notes Patient Instructions - HE - Gabrielle Golden RN - 09/05/2018 11:15 AM MANAGER MANAGING INR 5.5 hold dose today. Then 5 mg Wednesday. And 2.5 mg all other day. Increase greens. After talking with pt and discussing history [...] coming procedures. Cautioned about using Herbal medication. GER MANAGING documented in this encounter Plan of Treatment Not on filedocumented as of this encounter Procedures Procedure Name Priority Date/Time Associated Diagnosis Comme nts INR POINT OF CARE Routine 09/05/2018 Results fo r this procedure are in the resu lts section. documented in this encounter Results INR point of care (09/05/2018) P athologist Signature INR 5.5 Specimen (Source) Anatomical Location Collection Method / Collectio n Time Received Time / Laterality Volume Blood specimen 09/05/2018 (specimen) Ankush Martinez MD LAB - BLOOD ORDERABLES documented in this encounter Visit Diagnoses Diagnosis S/P TAVR (transcatheter aortic valve rep lacement) documented in this encounter Care Teams Recreation Supervisor Relationship Specialty Start Date End Date Elyse Paredes MD PCP - General Family Practice 12/22/13 04/21/22 [address] [address] documented as of this encounter
--- OUTSIDE RECORDS SUMMARY | 2022-07-02 13:38 | XMS_ITS | Encounter Summary ---
:1950 Author Organization [place] Address [address] [place] [id number] Care Team Providers Name Role Phone Elyse Paredes MD Primary Care Provider Encounter Details Date Type Department Care Team Description 09/26/2018 Ambulatory - [facility] S/P TAVR [facility] Perez[facility] dorota (transcatheter aortic [address] valve replacement) [place] [address] Social History Tobacco Use Types Packs/Day Years Used Date Smoking Tobacco: Never Assessed Sex Assigned at Date Recorded Not on file documented as of this encounter Progress Notes Gabrielle Golden RN - 09/26/2018 11:15 AM CST INR 1.8 pt had been off several days due to procedure. Will continue on current dose. retest in 2 weeks. After talking with pt and discussing history of greens/salads and medication change. Pt will continue with current diet and dosing of Warfarin. Continue with moderation of Vit K and green leafy vege tables. Cautioned to call with increase bruising or bleeding. Reminded to call with medication change especially antibiotic. Call with any questions or concerns or any up coming procedures. Cautioned about using Herbal medication. OMIZER documented in this encounter Miscellaneous Notes Patient Instructions - HE - Gabrielle Golden RN - 09/26/2018 11:15 AM CUSTOMIZER INR 1.8 Continue current management dosing of Warfarin. Continue diet of moderate Vitamin K intake. Discussed with pt the need to call with questions or concerns or any change in medication especially herbal medication or OTC. Call with increased bleeding or bruising or any upcoming procedures. Has held for several days. OMIZER documented in this encounter Plan of Treatment Not on filedocumented as of this encounter Procedures Procedure Name Priority Date/Time Associated Diagnosis Comme nts INR POINT OF CARE Routine 09/26/2018 Results fo r this procedure are in the resu lts section. documented in this encounter Results INR point of care (09/26/2018) P athologist Signature INR 1.8 Specimen (Source) Anatomical Location Collection Method / Collectio n Time Received Time / Laterality Volume Blood specimen 09/26/2018 (specimen) Lorenar Michelle [facility] LAB - BLOOD ORDERABLES documented in this encounter Visit Diagnoses Diagnosis S/P TAVR (transcatheter aortic valve rep lacement) documented in this encounter Care Teams Concrete Engineer Relationship Specialty Start Date End Date Elyse Paredes MD PCP - General Family Practice 12/22/13 04/21/22 [address] [place] [address] documented as of this encounter
--- OUTSIDE RECORDS SUMMARY | 2022-07-02 13:38 | XMS_ITS | Encounter Summary ---
:1950 Author Organization [place] Address [address] [place] [address] Care Team Providers Name Role Phone Elyse Paredes MD Primary Care Provider Encounter Details Date Type Department Care Team Description 08/22/2018 Ambulatory - [facility] S/P TAVR [facility] Perezu dorota (transcatheter aortic [address] valve replacement) [place] [address] Social History Tobacco Use Types Packs/Day Years Used Date Smoking Tobacco: Never Assessed Sex Assigned at Date Recorded Not on file documented as of this encounter Progress Notes Gabrielle Golden RN - 08/22/2018 1:15 PM CST INR 2.9 Continue current management dosing of Warfarin. Continue diet of moderate Vitamin K intake. Discussed with pt the need to call with questions or concerns or any change in medication especially herbal medication or OTC. Call with increased bleeding or bruising or any upcoming procedures. MUSICIAN documented in this encounter Miscellaneous Notes Patient Instructions - HE - Gabrielle Golden RN - 08/22/2018 1:15 PM SOLO MUSICIAN INR 2.9 After talking with pt and [...] coming procedures. Cautioned about using Herbal medication. MUSICIAN documented in this encounter Plan of Treatment Not on filedocumented as of this encounter Procedures Procedure Name Priority Date/Time Associated Diagnosis Comme nts INR POINT OF CARE Routine 08/22/2018 Results fo r this procedure are in the resu lts section. documented in this encounter Results INR point of care (08/22/2018) P athologist Signature INR 2.9 Specimen (Source) Anatomical Location Collection Method / Collectio n Time Received Time / Laterality Volume Blood specimen 08/22/2018 (specimen) Ankush Martinez MD LAB - BLOOD ORDERABLES documented in this encounter Visit Diagnoses Diagnosis S/P TAVR (transcatheter aortic valve rep lacement) documented in this encounter Care Teams Ship'S Electronic Warfare Officer Relationship Specialty Start Date End Date Elyse Paredes MD PCP - General Family Practice 12/22/13 04/21/22 [address] [place] [address] documented as of this encounter
--- OUTSIDE RECORDS SUMMARY | 2022-07-02 13:39 | XMS_ITS | Encounter Summary ---
:1950 Author Organization [place] Address [address] [place] [address]. [place] [address] Care Team Providers Name Role Phone Elyse Paredes MD Primary Care Provider Encounter Details Date Type Department Care Team Description 08/05/2018 Records - [facility] Provider, Histo rical External Imaging [facility] [place] [address] Social History Tobacco Use Types Packs/Day Years Used Date Smoking Tobacco: Never Assessed Sex Assigned at Date Recorded Not on file documented as of this encounter Plan of Treatment Not on filedocumented as of this encounter Procedures Procedure Name Priority Date/Time Associated Diagnosis Comme nts MA EXTERNAL IMAGING Routine 07/28/2018 2:06 PM Re sults for this BREAST ASSET PROTECTION OFFICER procedure are i n the results section. documented in this encounter Results MA EXTERNAL IMAGING BREAST (07/28/2018 2:06 PM ASSET PROTECTION OFFICER) Anatomical Region Laterality Modality Other Specimen (Source) Anatomical Location Collection Method / Collectio n Time Received Time / Laterality Volume Narrative 08/05/2018 2:06 PM ASSET PROTECTION OFFICER Please see PACS Hyperlink for images and scanned result text. Procedure Note Provider, Historical - 01/08/2021Formatt ing of this note might be different from the original. Please see PACS Hyperlink for images and scanned result text. Historical Provider IMG EXTERNAL IMAGING ORDERAB LES documented in this encounter Visit Diagnoses Not on filedocumented in this encounter Care Teams Splunk Dashboard Developer Relationship Specialty Start Date End Date Elyse Paredes MD PCP - General Family Practice 12/22/13 04/21/22 [address] [place] [address] documented as of this encounter
--- OUTSIDE RECORDS SUMMARY | 2022-07-02 13:39 | XMS_ITS | Encounter Summary ---
:1950 Author Organization [place] Address [address] [place] [address] Care Team Providers Name Role Phone Elyse Paredes MD Primary Care Provider Reason for Visit Reason Comments Consult Encounter Details Date Type Department Care Team Description 08/09/2018 Hospital Encounter [facility] Araceli Toribio MD Malignant neoplasm Breast Clinic [address] [place] [address] of left breast in [address] [place] [address] female, estrogen [address] [place], [place] [address] [phone] Social History Tobacco Use Types Packs/Day Years Used Date Smoking Tobacco: Never Assessed Sex Assigned at Date Recorded Not on file documented as of this encounter Last Filed Vital Signs Vital Sign Reading Time Taken Comments Blood Pressure - - Pulse - - Temperature - - Respiratory Rate - - Oxygen Saturation - - Inhaled Oxygen Concentration - - Weight 130.6 kg (288 lb) 08/09/2018 3:47 PM PACKING ROOM SUPERVISOR Height 160 cm (5' 3) 08/09/2018 3:47 PM PACKING ROOM SUPERVISOR Body Mass Index 51.02 08/09/2018 3:47 PM PACKING ROOM SUPERVISOR documented in this encounter Medications at Time [...] RESULTS DIRECTED documented as of this encounter Progress Notes Katey Toribio MD - 08/09/2018 3:40 PM CST This is a 68 y.o. female who I'm asked to see by Elyse Paredes MD for evaluation of a left breast cancer. This was picked up on screening mammogram. The patient cannot feel a mass. 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 It is estrogen receptor positive, progesterone receptor positive and HER-2 negative. She has no family history of breast cancer. PAST MEDICAL HISTORY: Past Medical History: Diagnosis Date ??? Bicuspid aortic valve ??? COPD (chronic obstructive pulmonary disease) (H) ??? Depression ??? Diabetes mellitus (H) insulin ??? DJD (degenerative joint disease) ??? Dyspnea ??? Hyperlipidemia ??? Hypertension ??? Kidney stones ??? Morbid obesity (H) ??? Nephrolithiasis ??? DEDE on CPAP ??? Severe aortic stenosis ??? Tooth abscess 2016 Past Surgical History: Procedure Laterality Date ??? CARDIAC CATHETERIZATION 05/12/2017 ??? CV CORONARY ANGIOGRAM N/A 05/12/2017 Procedure: Coronary Angiogram; Surgeon: Ankush Martinez MD; Location: [facility] [employer]; Service: ??? CV TRANSFEMORAL TRANSCATHETER VALVE REPLACEMENT N/A 07/06/2017 Procedure: Transfemoral Transcatheter Aortic Valve Replacement; Surgeon: Ankush Martinez MD; Location: [facility] [employer]; Service: ??? TOTAL KNEE ARTHROPLASTY Bilateral Medications: Current Outpatient Medications: ??? amoxicillin (AMOXIL) 500 MG tablet, Take 500 mg by mouth as needed for Prior to Procedure., Disp: , Rfl: ??? aspirin 81 MG EC tablet, Take 1 tablet (81 mg total) by mouth daily., Disp: , Rfl: 0 ??? BD INSULIN PEN NEEDLE UF MINI 31 gauge x /16 Ndle, USE 4-5 PER DAY UTD, Disp: , Rfl: 0 ??? BD INSULIN PEN NEEDLE UF SHORT 31 gauge x 5/16 Ndle, USE WITH TOUJEO AND VICTOZA BID, Disp: , Rfl: 3 ??? celecoxib (CELEBREX) 200 MG capsule, Take 200 mg by mouth daily. , Disp: , Rfl: ??? chlorthalidone (HYGROTEN) 25 MG tablet, Take 1 tablet (25 mg total) by mouth daily., Disp: 90 tablet, Rfl: 1 ??? CRESTOR 10 mg tablet, Take 40 mg by mouth daily. , Disp: , Rfl: ??? dulaglutide 0.75 mg/0.5 mL PnIj, Inject under the skin., Disp: , Rfl: ??? famotidine (FOR PEPCID) 10 MG tablet, Take 10 mg by mouth as needed., Disp: , Rfl: ??? insulin lispro (HUMALOG) 100 unit/mL injection, Inject 6-10 Units under the skin 3 (three) timesa day before meals., Disp: , Rfl: ??? LANTUS SOLOSTAR 100 unit/mL (3 mL) pen, 30 Units 2 (two) times a day. , Disp: , Rfl: ??? losartan (COZAAR) 50 MG tablet, Take 1.5 tablets (75 mg total) by mouth daily., Disp: 135 tablet, Rfl: 3 ??? metoprolol succinate (TOPROL XL) 25 MG, Take 1 tablet (25 mg total) by mouth daily., Disp: 90 tablet, Rfl: 1 ??? sertraline (ZOLOFT) 100 MG tablet, Take 50 mg by mouth daily. Patient takes 50mg daily, Disp: , Rfl: ??? warfarin (COUMADIN/JANTOVEN) 2.5 MG tablet, TAKE 1 TABLET BY MOUTH EVERY DAY, Disp: 90 tablet, Rfl: 0 ??? warfarin (COUMADIN/JANTOVEN) 5 MG tablet, TAKE 1 TABLET BY MOUTH DAILY. ADJUST DOSE BASED ON INRRESULTS DIRECTED, Disp: 30 tablet, Rfl: 0 Allergies: Allergies Allergen Reactions ??? Lisinopril Cough ??? Metformin Nausea And Vomiting ??? Erythromycin Base Rash Social History: reports that has never smoked. she has never used smokeless tobacco. She reports that she does not drink alcohol or use drugs. ROS: A 12 point comprehensive review of systems was negative except as noted. Physical Exam BP 130/60 Pulse 83 Ht 5' 3 (1.6 m) Wt (!) 288 lb (130.6 kg) SpO2 97% BMI 51.02 kg/m?? General:alert, appears stated age, cooperative and morbidly obese Lungs:clear to auscultation bilaterally CV: Regular with systolic murmur and click consistent with valve. Breasts:No dimpling, nipple retraction or discharge. No masses or nodes. Lymph Nodes:no axillary nodes palpated Neuro:Grossly normal Musculoskeletal: Normal range of motion of the upper extremities Skin: No lesions or rashes noted. Reviewed her mammograms and ultrasound and pathology. Small lesion in the middle of the left office. Impression: Left Breast Cancer. Clinically T1, N0. Discussed the surgical options for treatment of breast cancer which generally are a lumpectomy (partial mastectomy) combined with radiation versus a mastectomy. Explained that the survival benefit is the same for both. The difference is in local recurrence risk. The patient is a Excellent candidate for a lumpectomy. Discussed SLN biopsy. The procedure and rationale were explained. The only concern with her is her risk of surgery. She is on Coumadin for her valve and atrial fibrillation. She is morbidly obese. She has diabetes mellitus. She is at much higher risk for bleeding andinfection afterwards and she is aware of this. Because of her medical problems and weight, her surgery cannot be done at the day surgery center and will need to be done at the hospital but should be able to be done as an outpatient. Discussed that at this point we do not know yet whether or not she will need chemotherapy and we maynot know until we get all of the results of surgery back. Given what I see so far, I think chemotherapy is highly unlikely. She will for sure need hormone therapy. Also had a susan discussion with Marci about her weight. Explained that it contributed to the development of the breast cancer as well as many of her medical problems. She is well aware of it. She is already been talked to about this and is planning on pursuing weight reduction surgery after this. I think it is a very good idea. Plan: We'll schedule for a right lumpectomy with wire localization with sentinel lymph node biopsy. This is typically an outpatient procedure under local MAC anesthetic. The risks and benefits of surgery were explained. Also talked about expected recovery time. ING ROOM SUPERVISOR Historical Provider - 08/09/2018 3:40 PM CST Chief Complaint Patient presents with ??? Consult patient in for consult on left breast Left breast cancer documented in this encounter Miscellaneous Notes Addendum Note - Historical Provider - 08/09/2018 3:40 PM CST Addendum Note by Helena Kwong CMA at 08/09/2018 3:40 PM Author: Helena Kwong CMA Service: -- Author Type: Director Furniture Filed: 08/09/2018 4:43 PM Date of Service: 08/09/2018 3:40 PM Status: Signed Belt Polisher: Helena Kwong CMA (Director Furniture) Encounter addended by: Helena Kwong CMA on: 08/09/2018 4:43 PM Actions taken: Sign clinical note, Charge Capture section accepted documented in this encounter Plan of Treatment Not on filedocumented as of this encounter Visit Diagnoses Diagnosis Malignant neoplasm of central portion of left breast in female, estrogen receptor positive (H) documented in this encounter Care Teams Bag Machine Adjuster Relationship Specialty Start Date End Date Elyse Paredes MD PCP - General Family Practice 12/22/13 04/21/22 [address] [place] [address] documented as of this encounter
--- OUTSIDE RECORDS SUMMARY | 2022-07-02 13:39 | XMS_ITS | Encounter Summary ---
:1950 Author Organization [place] Address [address] [place] [address]. [place] [address] Care Team Providers Name Role Phone Dagmar Kang MD Unavailable Elyse Paredes MD Primary Care Provider Encounter Details Date Type Department Care Team Description 08/03/2018 Records - [facility] CONVERSION Provider, Karthik raya Social History Tobacco Use Types Packs/Day Years Used Date Smoking Tobacco: Never Assessed Sex Assigned at Date Recorded Not on file documented as of this encounter Plan of Treatment Not on filedocumented as of this encounter Visit Diagnoses Not on filedocumented in this encounter Care Teams Kinder Teacher Relationship Specialty Start Date End Date Elyse Paredes MD PCP - General Family Practice 12/22/13 04/21/22 [address] [place] [address] Dagmar Kang MD Assigned Heart and 02/14/21 02/27/[address] [facility], Vascular Provider [address] [place] [address] documented as of this encounter
--- OUTSIDE RECORDS SUMMARY | 2022-07-02 13:39 | XMS_ITS | Encounter Summary ---
:1950 Author Organization [place] Address [address] [place] [address] Care Team Providers Name Role Phone Elyse Paredes MD Primary Care Provider Reason for Visit Reason Comments Follow Up Encounter Details Date Type Department Care Team Description 08/08/2018 Office Visit - [facility] Swapna S/Alberto TAVR [facility] St. Chidi MD (transcatheter [place] [address] [facility] aortic valve [address] [facility] [address] replacement) [place] [address] [phone] Social History Tobacco Use Types Packs/Day Years [...] - - Weight 130.6 kg (288 lb) 08/08/2018 3:50 PM RESTAURANT SERVICE MANAGER Height 160 cm (5' 3) 08/08/2018 3:50 PM RESTAURANT SERVICE MANAGER Body Mass Index 51.02 08/08/2018 3:50 PM RESTAURANT SERVICE MANAGER documented in this encounter Progress Notes Chidi Barcenas MD - 08/08/2018 3:[address] [facility] Note Assessment: Marci Diaz is a 68 y.o. old female with severe s/p TAVR w/ ,CAD s/p PCI to LAD '17, HFPEF, AF, HTN, HL, DM, new diagnosis of breast cancer here for f/u of . Plan: # - severe s/p #23 S3 '17, mean gradient 18 (was up to 24 post-op), likely due to hyperdynamic LV; trace AI - at this point can stop clopidogrel, start ASA 81mg daily, continue losartan and warfarin - will add BB as per below, and chlorthalidone for a mild diuretic and improved BP control - overall, this should optimize her for any breast Ca surgery # AF- continue warfarin, stop amio, start toprol 25, may need up-titration - consider Watchman after breast cancer is addressed as she has elevated CHADSVASC and difficulty maintaining INR's # CAD - switch clopidogrel for ASA, amio for metop, increase rosuva dose # Obesity - We had a long discussion of benefits of bariatric surgery - once breast Ca is addressed, I think she would likely derive benefits form DM, patient-prosthesis mismatch for AV bioprosthesis, DEDE, and AF standpoints - she is open to it CHIDI BARCENAS [facility] [phone] Subjective: CC: F/u I had the opportunity to see Marci Diaz at the [facility]. Marci Diaz is a 68 y.o. female with a known history of severe s/p TAVR w/ ,CAD s/p PCI to LAD '17, HFPEF, AF, HTN, HL, DM, new diagnosis of breast cancer here for f/u of . She was unfortunately diagnosed with a stage 1 breast ca, for which the plan is for her to undergo alumpectomy +/- XRT. From cardiac perspective, she is doing fairly well in cardiac rehab, exercising religiously 3X/week,doing well secifically w/ N[employer] specifically but when she was in [place] last fall, she did feel strained trying to keep up with the rest of the group. She may have had a bit of a setback in her performance as of late w/ exercise but denies shortness of breath at rest, CP, no orthopnea/PND as long as she has CPAP on, mild edema if she was on her feet all day, no syncopeN/V/D/F/C. Review of Systems: As noted in HPI, all others reviewed and are negative Problem List: Patient Active Problem List Diagnosis ??? HLD (hyperlipidemia) ??? CASTRO (dyspnea on exertion) ??? Coronary artery disease involving sokaogon coronary artery of sokaogon heart, angina presence unspecified ??? DEDE on CPAP ??? Type 2 diabetes mellitus without complication, with long-term current use of insulin (H) ??? Essential hypertension ??? Calculus of kidney ??? Urinary tract stones ??? Chronic diastolic congestive heart failure (H) ??? S/P TAVR (transcatheter aortic valve replacement) ??? Hyperglycemia ??? Persistent atrial fibrillation (H) ??? Morbid obesity with BMI of 50.0-59.9, adult (H) Medical History: Past Medical History: Diagnosis Date ??? Bicuspid aortic valve ??? COPD (chronic obstructive pulmonary disease) (H) ??? Depression ??? Diabetes mellitus (H) insulin ??? DJD (degenerative joint disease) ??? Dyspnea ??? Hyperlipidemia ??? Hypertension ??? Kidney stones ??? Morbid obesity (H) ??? Nephrolithiasis ??? DEDE on CPAP ??? Severe aortic stenosis ??? Tooth abscess 2016 Surgical History: Past Surgical History: Procedure Laterality Date ??? CARDIAC CATHETERIZATION 05/12/2017 ??? CV CORONARY ANGIOGRAM N/A 05/12/2017 Procedure: Coronary Angiogram; Surgeon: Ankush Martinez MD; Location: [facility]; Service: ??? CV TRANSFEMORAL TRANSCATHETER VALVE REPLACEMENT N/A 07/06/2017 Procedure: Transfemoral Transcatheter Aortic Valve Replacement; Surgeon: Ankush Martinez MD; Location: [facility]; Service: ??? TOTAL KNEE ARTHROPLASTY Bilateral Social History: Social History Socioeconomic History ??? Marital status: Spouse name: Not on file ??? Number of children: Not on file ??? Years of education: Not on file ??? Highest education level: Not on file Social Needs ??? Financial resource strain: Not on file ??? Food insecurity - worry: Not on file ??? Food insecurity - inability: Not on file ??? Transportation needs - medical: Not on file ??? Transportation needs - non-medical: Not on file Occupational History ??? 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 Smoking status: Never Smoker ??? Smokeless tobacco: Never Used Substance and Sexual Activity ??? Alcohol use: No ??? Drug use: No ??? Sexual activity: Not on file Other Topics Concern ??? Not on file Social History Narrative ??? Not on file Family History: Family History Problem Relation Age of Onset ??? Diabetes Father ??? Heart disease Father ??? Esophageal cancer Brother ??? Urolithiasis Neg Hx ??? Clotting disorder Neg Hx ??? Gout Neg Hx Allergies: Allergies Allergen Reactions ??? Lisinopril Cough ??? Metformin Nausea And Vomiting ??? Erythromycin Base Rash Medications: Current Outpatient Medications Medication Sig Dispense Refill ??? amiodarone (PACERONE) 200 MG tablet Take 1 tab orally once a day for 5 of 7 days. 80 tablet 3 ??? BD INSULIN PEN NEEDLE UF MINI 31 gauge x 3/16 Ndle USE 4-5 PER DAY UTD 0 ??? BD INSULIN PEN NEEDLE UF SHORT 31 gauge x 5/16 Ndle USE WITH TOUJEO AND VICTOZA BID 3 ??? celecoxib (CELEBREX) 200 MG capsule Take 200 mg by mouth daily. ??? clopidogrel (PLAVIX) 75 mg tablet TAKE 1 TABLET BY MOUTH EVERY DAY 90 tablet 0 ??? CRESTOR 10 mg tablet Take 10 mg by mouth daily. ??? dulaglutide 0.75 mg/0.5 mL PnIj Inject under the skin. ??? famotidine (FOR PEPCID) 10 MG tablet Take 10 mg by mouth as needed. ??? insulin lispro (HUMALOG) 100 unit/mL injection Inject 6-10 Units under the skin 3 (three) times a day before meals. ??? LANTUS SOLOSTAR 100 unit/mL (3 mL) pen 30 Units 2 (two) times a day. ??? losartan (COZAAR) 50 MG tablet Take 1.5 tablets (75 mg total) by mouth daily. 135 tablet 3 ??? sertraline (ZOLOFT) 100 MG tablet Take 50 mg by mouth daily. Patient takes 50mg daily ??? warfarin (COUMADIN/JANTOVEN) 2.5 MG tablet TAKE 1 TABLET BY MOUTH EVERY DAY 90 tablet 0 ??? warfarin (COUMADIN/JANTOVEN) 5 MG tablet TAKE 1 TABLET BY MOUTH DAILY. ADJUST DOSE BASED ON INR RESULTS DIRECTED 30 tablet 0 ??? amoxicillin (AMOXIL) 500 MG tablet Take 500 mg by mouth as needed for Prior to Procedure. No current facility-administered medications for this visit. Objective: Vital signs: BP 142/80 (Patient Site: Right Arm, Patient Position: Sitting, Cuff Size: Adult Large) Pulse 84 Resp 16 Ht 5' 3 (1.6 m) Wt (!) 288 lb (130.6 kg) BMI 51.02 kg/m?? Physical Exam: GENERAL APPEARANCE: Alert, cooperative and in no acute distress. HEENT: No scleral icterus. Oral mucuos membranes pink and moist. NECK: JVP 8. No Hepatojugular reflux. Thyroid not visualized. No lymphadenopathy CHEST: clear to auscultation CARDIOVASCULAR: S1, S2 without murmur ,clicks or rubs. Brachial, radial and posterior tibial pulses are intact and symetric. No carotid bruits noted. No edema ABDOMEN: Nontender. BS+. No bruits. SKIN: No Xanthelasma Musculoskeletal: No cyanosis, clubbing or swelling. Lab Results: LIPIDS: Lab Results Component Value Date CHOL 165 03/23/2018 CHOL 150 01/21/2017 CHOL 124 03/25/2016 Lab Results Component Value Date HDL 60 03/23/2018 HDL 45 (L) 01/21/2017 HDL 49 (L) 03/25/2016 Lab Results Component Value Date LDLCALC 75 03/23/2018 LDLCALC 78 01/21/2017 LDLCALC 55 03/25/2016 Lab Results Component Value Date TRIG 148 03/23/2018 TRIG 136 01/21/2017 TRIG 98 03/25/2016 No components found for: CHOLHDL BMP: Lab Results Component Value Date CREATININE 1.17 (H) 05/19/2018 BUN 18 05/19/2018 NA 135 (L) 05/19/2018 K 4.7 05/19/2018 CL 102 05/19/2018 CO2 26 05/19/2018 CHIDI BARCENAS [facility] AURANT SERVICE MANAGER documented in this encounter Miscellaneous Notes Patient Instructions - HE - Chidi Barcenas MD - 08/08/2018 3:50 PM RESTAURANT SERVICE MANAGER Please, stop taking: Amiodarone, clopidogrel Start taking: Aspirin 81 mg daily, Metoprolol, chlorthalidone may need to further adjust your doses Once breast cancer is addressed, let's consider Watchman left atrial appendage closure device, in order to potentially get you off warfarin AURANT SERVICE MANAGER documented in this encounter Plan of Treatment Not on filedocumented as of this encounter Procedures Procedure Name Priority Date/Time Associated Diagnosis Comme nts ECG 12-LEAD WITH Routine 08/08/2018 3:44 PM Resul ts for this MUSE ? RESTAURANT SERVICE MANAGER procedure are in [facility] the results section. documented in this encounter Results ECG 12-LEAD WITH MUSE (LHE) (08/08/2018 3:44 PM RESTAURANT SERVICE MANAGER) [facility] Method Time Signature Systolic Blood mmHg 08/10/2018 HE RADIANT Pressure 5:59 PM RESTAURANT SERVICE MANAGER CONVERSION Diastolic Blood mmHg 08/10/2018 HE RADIANT Pressure 5:59 PM RESTAURANT SERVICE MANAGER CONVERSION Ventricular Rate 84 BPM 08/10/2018 HE RADIANT 5:59 PM RESTAURANT SERVICE MANAGER CONVERSION Atrial Rate 84 BPM 08/10/2018 HE RADIANT 5:59 PM RESTAURANT SERVICE MANAGER CONVERSION AK Interval 134 ms 08/10/2018 HE RADIANT 5:59 PM RESTAURANT SERVICE MANAGER CONVERSION QRS Duration 90 ms 08/10/2018 HE RADIANT 5:59 PM RESTAURANT SERVICE MANAGER CONVERSION QT 382 ms 08/10/2018 HE RADIANT 5:59 PM RESTAURANT SERVICE MANAGER CONVERSION QTc 451 ms 08/10/2018 HE RADIANT 5:59 PM RESTAURANT SERVICE MANAGER CONVERSION P Butler 5 degrees 08/10/2018 HE RADIANT 5:59 PM RESTAURANT SERVICE MANAGER CONVERSION R AXIS -7 degrees 08/10/2018 HE RADIANT 5:59 PM RESTAURANT SERVICE MANAGER CONVERSION T Butler 38 degrees 08/10/2018 HE RADIANT 5:59 PM RESTAURANT SERVICE MANAGER CONVERSION Interpretation Sinus rhythm 08/10/2018 HE RADIANT ECG Normal ECG 5:59 PM RESTAURANT SERVICE MANAGER CONVERSION When compared with ECG of 27-SEP-2017 11:24, Premature atrial complexes are no longer Present Confirmed by OMIZ ??SAMANTHA CLEMENTS LOC:JN ([id number]) on 08/10/2018 5:59:41 PM Specimen Anatomical Collection Method Collection Time Receive d Time (Source) Location / / Volume Laterality 08/08/2018 3:44 PM 9 5:59 RESTAURANT SERVICE MANAGER PM RESTAURANT SERVICE MANAGER Ashley Anderson PA-C ECG ORDERABLES Performing Organization Address City/State/ZIP Code Phon e Number HE CARDIOLOGY CONVERSION HE RADIANT CONVERSION documented in this encounter Visit Diagnoses Diagnosis S/P TAVR (transcatheter aortic valve rep lacement) documented in this encounter Care Teams Training Program Manager Relationship Specialty Start Date End Date Elyse Paredes MD PCP - General Family Practice 12/22/13 04/21/22 [address] [place] [address] documented as of this encounter
--- OUTSIDE RECORDS SUMMARY | 2022-07-02 13:39 | XMS_ITS | Encounter Summary ---
:1950 Author Organization [facility] Address [address] [place] [address]. [place] [address] Care Team Providers Name Role Phone Elyse Paredes MD Primary Care Provider Encounter Details Date Type Department Care Team Description 08/05/2018 Records - [facility] Provider, Histo rical External Imaging [facility] [place] [address] Social History Tobacco Use Types Packs/Day Years Used Date Smoking Tobacco: Never Assessed Sex Assigned at Date Recorded Not on file documented as of this encounter Plan of Treatment Not on filedocumented as of this encounter Procedures Procedure Name Priority Date/Time Associated Diagnosis Comme nts MA EXTERNAL IMAGING Routine 07/19/2018 2:06 PM Re sults for this BREAST PROPERTY UNDERWRITER procedure are i n the results section. documented in this encounter Results MA EXTERNAL IMAGING BREAST (07/19/2018 2:06 PM PROPERTY UNDERWRITER) Anatomical Region Laterality Modality Other Specimen (Source) Anatomical Location Collection Method / Collectio n Time Received Time / Laterality Volume Narrative 08/05/2018 2:07 PM PROPERTY UNDERWRITER Please see PACS Hyperlink for images and scanned result text. Procedure Note Provider, Historical - 01/08/2021Formatt ing of this note might be different from the original. Please see PACS Hyperlink for images and scanned result text. Historical Provider IMG EXTERNAL IMAGING ORDERAB LES documented in this encounter Visit Diagnoses Not on filedocumented in this encounter Care Teams Endoscopy Rn Relationship Specialty Start Date End Date Elyse Paredes MD PCP - General Family Practice 12/22/13 04/21/22 [address] [place] [address] documented as of this encounter
--- OUTSIDE RECORDS SUMMARY | 2022-07-02 13:39 | XMS_ITS | Encounter Summary ---
:1950 Author Organization [place] Address [address] [place] [address] Care Team Providers Name Role Phone Elyse Paredes MD Primary Care Provider Encounter Details Date Type Department Care Team Description 07/13/2018 Hospital Encounter [facility] Michelle, S/P TAVR St. Randy Lechuga MD (transcatheter [facility] [address] [facility] aortic valve [address] replacement) [place] [address] [phone] Social History Tobacco Use Types Packs/Day Years Used Date Smoking Tobacco: Never Assessed Sex Assigned at Date Recorded Not on file documented as of this encounter Last Filed Vital Signs Vital Sign Reading Time Taken Comments Blood Pressure - - Pulse - - Temperature - - Respiratory Rate - - Oxygen Saturation - - Inhaled Oxygen Concentration - - Weight 130.2 kg (287 lb) 07/13/2018 10:43 AM EDGE SETTER Height 160 cm (5' 3) 07/13/2018 10:43 AM EDGE SETTER Body Mass Index 50.84 07/13/2018 10:43 AM EDGE SETTER documented in this encounter Medications at Time of Discharge Medication Sig Dispensed Refills Start Date End Date BD INSULIN PEN NEEDLE UF [BD INSULIN PEN 0 2016 MINI 31 gauge x 10/15 NEEDLE UF MINI 31 Ndle GAUGE X 10/15 NDLE] USE 4-5 PER DAY UTD insulin lispro (HUMALOG) [INSULIN LISPRO 0 2017 [...] AND VICTOZA BID celecoxib (CELEBREX) 200 [CELECOXIB (CELEBREX) 0 05/20/2015 04/22/2022 MG capsule 200 MG CAPSULE] Take 200 mg by [...] TABLET] Take 50 mg by mouth daily. documented as of this encounter Plan of Treatment Not on filedocumented as of this encounter Procedures Procedure Name Priority Date/Time Associated Diagnosis Comme nts ECHO COMPLETE Routine 07/13/2018 10:44 AM S/P TAVR Results for this EDGE SETTER (transcatheter aortic proced ure are in the valve replacement) results s ection. documented in this encounter Results (ABNORMAL) Echocardiogram Complete (07/13/2018 10:44 AM EDGE SETTER) [facility] Method Time Signature LV volume diastolic 63 46 - 106 07/14/2018 HE RADIAN T cm3 9:14 AM EDGE SETTER CONVERSION LV volume systolic 10 (A) 14 - 42 07/14/2018 HE RADIANT cm3 9:14 AM EDGE SETTER CONVERSION INTERVENTRICULAR 0.8 0.6 - 0.9 07/14/2018 HE RADIANT SEPTUM IN END cm 9:14 AM EDGE SETTER CONVERSION DIASTOLE LVIDd 4.7 3.8 - 5.2 07/14/2018 HE RADIANT cm 9:14 AM EDGE SETTER CONVERSION LVIDs 2.1 (A) 2.2 - 3.5 07/14/2018 HE RADIANT cm 9:14 AM EDGE SETTER CONVERSION LVOT diam 1.9 cm 07/14/2018 HE RADIANT 9:14 AM EDGE SETTER CONVERSION LEFT VENTRICULAR 4 mmHg 07/14/2018 HE RADIANT OUTFLOW TRACT MEAN 9:14 AM EDGE SETTER CONVERSIO N GRADIENT LVOT peak VTI 24.5 cm 07/14/2018 HE RADIANT 9:14 AM EDGE SETTER CONVERSION LEFT VENTRICULAR 94.3 cm/s 07/14/2018 HE RADIANT OUTFLOW TRACT MEAN 9:14 AM EDGE SETTER CONVERSIO N VELOCITY LVOT peak oniel 136 cm/s 07/14/2018 HE RADIANT 9:14 AM EDGE SETTER CONVERSION LEFT VENTRICULAR 7 mmHg 07/14/2018 HE RADIANT OUTFLOW TRACT PEAK 9:14 AM EDGE SETTER CONVERSIO N GRADIENT LV PWd 0.9 0.6 - 0.9 07/14/2018 HE RADIANT cm 9:14 AM EDGE SETTER CONVERSION MV E'TISSUE ONIEL-LAT 3.8 cm/s 07/14/2018 HE RADIAN T 9:14 AM EDGE SETTER CONVERSION MV E' med oniel 5.36 cm/s 07/14/2018 HE RADIANT 9:14 AM EDGE SETTER CONVERSION LA area 16.7 cm2 07/14/2018 HE RADIANT 9:14 AM EDGE SETTER CONVERSION LA size 3.4 cm 07/14/2018 HE RADIANT 9:14 AM EDGE SETTER CONVERSION AV mean oniel 202 cm/s 07/14/2018 HE RADIANT 9:14 AM EDGE SETTER CONVERSION AV mean gradient 18 mmHg 07/14/2018 HE RADIANT 9:14 AM EDGE SETTER CONVERSION AV VTI 54.7 cm 07/14/2018 HE RADIANT 9:14 AM EDGE SETTER CONVERSION AV peak oniel 292 cm/s 07/14/2018 HE RADIANT 9:14 AM EDGE SETTER CONVERSION AO root 2.3 cm 07/14/2018 HE RADIANT 9:14 AM EDGE SETTER CONVERSION MV decel time 292 ms 07/14/2018 HE RADIANT 9:14 AM EDGE SETTER CONVERSION MV peak A oniel 105 cm/s 07/14/2018 HE RADIANT 9:14 AM EDGE SETTER CONVERSION MV peak E oniel 74 cm/s 07/14/2018 HE RADIANT 9:14 AM EDGE SETTER CONVERSION TAPSE 2.3 cm 07/14/2018 HE RADIANT 9:14 AM EDGE SETTER CONVERSION BSA 2.4 m2 07/14/2018 HE RADIANT 9:14 AM EDGE SETTER CONVERSION End systolic index 63 in 07/14/2018 HE RADIANT (mL/m2) 9:14 AM EDGE SETTER CONVERSION End diastolic index 4,592 lbs 07/14/2018 HE RADIAN T (mL/m2) 9:14 AM EDGE SETTER CONVERSION BP 137/73 mmHg 07/14/2018 HE RADIANT 9:14 AM EDGE SETTER CONVERSION IVS/PW RATIO 0.9 07/14/2018 HE RADIANT 9:14 AM EDGE SETTER CONVERSION LV FS 55.3 28 - 44 % 07/14/2018 HE RADIANT 9:14 AM EDGE SETTER CONVERSION Ejection Fraction 84 55 - 75 % 07/14/2018 HE RADIANT 9:14 AM EDGE SETTER CONVERSION LV mass 132.3 g 07/14/2018 HE RADIANT 9:14 AM EDGE SETTER CONVERSION AV area 1.3 cm2 07/14/2018 HE RADIANT 9:14 AM EDGE SETTER CONVERSION AV DIM IND oniel 0.5 07/14/2018 HE RADIANT 9:14 AM EDGE SETTER CONVERSION MV E/A Ratio 0.7 07/14/2018 HE RADIANT 9:14 AM EDGE SETTER CONVERSION LVOT area 2.83 cm2 07/14/2018 HE RADIANT 9:14 AM EDGE SETTER CONVERSION LVOT SV 69.4 cm3 07/14/2018 HE RADIANT 9:14 AM EDGE SETTER CONVERSION AV peak gradient 34.1 mmHg 07/14/2018 HE RADIANT 9:14 AM EDGE SETTER CONVERSION LV systolic volume 4.2 8 - 24 07/14/2018 HE RADIANT index cm3/m2 9:14 AM EDGE SETTER CONVERSION LV diastolic volume 26.3 29 - 61 07/14/2018 HE RADIAN T index cm3/m2 9:14 AM EDGE SETTER CONVERSION LEFT VENTRICLE MASS 55.1 g/m2 07/14/2018 HE RADIAN T INDEX 9:14 AM EDGE SETTER CONVERSION LV SVi 28.9 ml/m2 07/14/2018 HE RADIANT 9:14 AM EDGE SETTER CONVERSION MV med E/e' ratio 13.8 07/14/2018 HE RADIANT 9:14 AM EDGE SETTER CONVERSION MV lat E/e' ratio 19.5 07/14/2018 HE RADIANT 9:14 AM EDGE SETTER CONVERSION Height 63.0 in 07/14/2018 HE RADIANT 9:14 AM EDGE SETTER CONVERSION Weight 287 lbs 07/14/2018 HE RADIANT 9:14 AM EDGE SETTER CONVERSION MV AVERAGE E/E' 16.2 cm/s 07/14/2018 HE RADIANT RATIO 9:14 AM EDGE SETTER CONVERSION AV DIMENSIONLESS 0.4 07/14/2018 HE RADIANT INDEX VTI 9:14 AM EDGE SETTER CONVERSION Anatomical Region Laterality Modality Echocardiography Specimen (Source) Anatomical Collection Method Collection Time Re ceived Time Location / / Volume Laterality 07/13/2018 9:59 AM EDGE SETTER Narrative 07/14/2018 9:14 AM EDGE SETTER 1. The left ventricle is normal in size. Left ventricular systolic performance is mildly hyperdynamic with a visually estimated ejection fraction of 65-70%. ?? 2. There is a bio-prosthetic aortic valv e (documented 23 mm Rigo 3 ??tissue valve). ? High normal aortic valve prosthesis m etrics with a mean systolic gradient of 18 mmHg and ??a peak anterograde velocity of 2.9 m/sec (the slightly increased than expected mean gradient & peak velo city in part likely related to the mildl y hyperdynamic left ventricular function). ? There is trace aortic insufficiency. 3. Normal right ventricular size and sys tolic performance. 4. There is mild left atrial enlargement . When compared to the prior real-time ech ocardiogram dated 04 February 2018, the mean gradient obtained across the aortic valve is slightly lower on the current study (mean gradient on prior examination 24 mm Hg and 18 mmHg on current study). ??Othe rwise, there has been little appreciable interval awilda nge. Procedure Note Wilfred Ramirez / Provider, Hist orical - 01/07/2021 1. The left ventricle is normal in size. Left ventricular systolic performance is mildly hyperdynamic with a visually estimated ejection fraction of 65-70%. 2. There is a bio-prosthetic aortic valv e (documented 23 mm Rigo 3 tissue valve). ?? High normal aortic valve prosthesis m etrics with a mean systolic gradient of 18 mmHg and a peak anterograde velocity of 2.9 m/sec (the slightly increased than expected mean gradient & peak velocity in part likely related to the mildly hyperdynami c left ventricular function). ?? There is trace aortic insufficiency. 3. Normal right ventricular size and sys tolic performance. 4. There is mild left atrial enlargement . When compared to the prior real-time ech ocardiogram dated 04 February 2018, the mean gradient obtained across the aortic valve is slightly lower on the current study (mean gradient on prior examination 24 mmHg and 18 mmHg on current study). Otherwise, there has been little appreciable interval awilda nge. Ankush Martinez MD CV ECHO ORDERABLES documented in this encounter Visit Diagnoses Diagnosis S/P TAVR (transcatheter aortic valve rep lacement) documented in this encounter Care Teams Waxing Machine Operator Relationship Specialty Start Date End Date Elyse Paredes MD PCP - General Family Practice 12/22/13 04/21/22 [address] [place] [address] documented as of this encounter
--- OUTSIDE RECORDS SUMMARY | 2022-07-02 13:39 | XMS_ITS | Encounter Summary ---
:1950 Author Organization [facility] Address [address] [place] [address] Care Team Providers Name Role Phone Elyse Paredes MD Primary Care Provider Reason for Visit Reason Comments Other stopping Plavix Encounter Details Date Type Department Care Team Description 08/03/2018 Communication - [facility] Gabrielle Golden Other (stopping [facility] RN Plavix) [address] [place] [phone] Social History Tobacco Use Types Packs/Day Years Used Date Smoking Tobacco: Never Assessed Sex Assigned at Date Recorded Not on file documented as of this encounter Miscellaneous Notes Telephone Encounter - Gabrielle Golden RN - 08/03/2018 9:12 AM CST Noted no refill sent. ANIC MARINE ENGINE Telephone Encounter - Gabrielle Golden RN - 08/03/2018 9:12 AM CST ----- Message from Ashley Anderson PA-C sent at 08/03/2018 8:51 AM MECHANIC MARINE ENGINE ----- Regarding: RE: Plavix Not necessary. She had stent 1 year ago in May and then TAVR 1 year ago in July. She can be on warfarin and aspirin 81 mg daily, indefinitely, at this time Ashley ----- Message ----- From: Gabrielle Golden, RN Sent: 08/03/2018 7:33 AM To: Ashley Anderson PA-C Subject: Plavix Is this pt to still be on Plavix? Seeing Mery on 08/08/18. ANIC MARINE ENGINE documented in this encounter Plan of Treatment Not on filedocumented as of this encounter Visit Diagnoses Not on filedocumented in this encounter Care Teams Human Relations Teacher Relationship Specialty Start Date End Date Elyse Paredes MD PCP - General Family Practice 12/22/13 04/21/22 [address] [place] [address] documented as of this encounter
--- OUTSIDE RECORDS SUMMARY | 2022-07-02 13:39 | XMS_ITS | Encounter Summary ---
:1950 Author Organization [place] Address [address] [place] [address]. [place] [address] Care Team Providers Name Role Phone Elyse Paredes MD Primary Care Provider Encounter Details Date Type Department Care Team Description 08/05/2018 Records - [facility] Provider, Histo rical External Imaging [facility] [place] [address] Social History Tobacco Use Types Packs/Day Years Used Date Smoking Tobacco: Never Assessed Sex Assigned at Date Recorded Not on file documented as of this encounter Plan of Treatment Not on filedocumented as of this encounter Procedures Procedure Name Priority Date/Time Associated Diagnosis Comme nts US EXTERNAL IMAGING Routine 07/28/2018 2:06 PM Re sults for this BIOPSY WATER RESTORATION TECHNICIAN procedure are i n the results section. documented in this encounter Results US External Imaging Biopsy (07/28/2018 2:06 PM WATER RESTORATION TECHNICIAN) Anatomical Region Laterality Modality Other Specimen (Source) Anatomical Location Collection Method / Collectio n Time Received Time / Laterality Volume Narrative 08/05/2018 2:06 PM WATER RESTORATION TECHNICIAN Please see PACS Hyperlink for images and scanned result text. Procedure Note Provider, Historical - 01/08/2021Formatt ing of this note might be different from the original. Please see PACS Hyperlink for images and scanned result text. Historical Provider IMG EXTERNAL IMAGING ORDERAB LES documented in this encounter Visit Diagnoses Not on filedocumented in this encounter Care Teams Line Camera Operator Relationship Specialty Start Date End Date Elyse Paredes MD PCP - General Family Practice 12/22/13 04/21/22 [address] [place] [address] documented as of this encounter
--- OUTSIDE RECORDS SUMMARY | 2022-07-02 13:39 | XMS_ITS | Encounter Summary ---
:1950 Author Organization [place] Address [address] [place] [address] Care Team Providers Name Role Phone Elyse Paredes MD Primary Care Provider Encounter Details Date Type Department Care Team Description 08/03/2018 [facility] - [facility] [place] Elyse Paredes MD [address] [place] [address] [facility], Historical carcinoma of Patient Access breast, left (H) [address] [place] [address] Social History Tobacco Use Types Packs/Day Years Used Date Smoking Tobacco: Never Assessed Sex Assigned at Date Recorded Not on file documented as of this encounter Plan of Treatment Not on filedocumented as of this encounter Visit Diagnoses Diagnosis Invasive ductal carcinoma of breast, lef t (H) documented in this encounter Care Teams Three Knife Trimmer Relationship Specialty Start Date End Date Elyse Paredes MD PCP - General Family Practice 12/22/13 04/21/22 [address] [place] [address] documented as of this encounter
--- OUTSIDE RECORDS SUMMARY | 2022-07-02 13:39 | XMS_ITS | Encounter Summary ---
:1950 Author Organization [place] Address [address] [place] [address] Care Team Providers Name Role Phone Elyse Paredes MD Primary Care Provider Reason for Visit Reason Comments Medication Refill Encounter Details Date Type Department Care Team Description 07/30/2018 Communication - [facility], [facility] MD Ankush [address] [facility] [address] [place] [address] Social History Tobacco Use Types Packs/Day Years Used Date Smoking Tobacco: Never Assessed Sex Assigned at Date Recorded Not on file documented as of this encounter Miscellaneous Notes Telephone Encounter - Gabrielle Golden, RN - 08/03/2018 9:15 AM CST Med stopped TING MACHINE OPERATOR documented in this encounter Plan of Treatment Not on filedocumented as of this encounter Visit Diagnoses Diagnosis Coronary artery disease involving [place] coronary artery of [place] heart, angina presence unspecified documented in this encounter Care Teams Engine Cleaner Relationship Specialty Start Date End Date Elyse Paredes MD PCP - General Family Practice 12/22/13 04/21/22 [address] [place] [address] documented as of this encounter
--- OUTSIDE RECORDS SUMMARY | 2022-07-02 13:39 | XMS_ITS | Encounter Summary ---
:1950 Author Organization [place] Address [address] [place] [address] Care Team Providers Name Role Phone Elyse Paredes MD Primary Care Provider Encounter Details Date Type Department Care Team Description 08/08/2018 Ambulatory - [facility] S/P TAVR [facility] Heart [facility] Debby dorota (transcatheter aortic [address] valve replacement) [place] [address] Social History Tobacco Use Types Packs/Day Years Used Date Smoking Tobacco: Never Assessed Sex Assigned at Date Recorded Not on file documented as of this encounter Progress Notes Gabrielle Golden RN - 08/08/2018 3:30 PM CST INR 1.0 pt states took pills. Restart meds and confirm in box. After talking with pt and discussing history [...] coming procedures. Cautioned about using Herbal medication. TENANCE SUPERVISOR ELECTRICAL documented in this encounter Miscellaneous Notes Patient Instructions - HE - Gabrielle Golden, RN - 08/08/2018 3:30 PM MAINTENANCE SUPERVISOR ELECTRICAL Check med box. Call ia [phone]. TENANCE SUPERVISOR ELECTRICAL documented in this encounter Plan of Treatment Not on filedocumented as of this encounter Procedures Procedure Name Priority Date/Time Associated Diagnosis Comme nts INR POINT OF CARE Routine 08/08/2018 Results fo r this procedure are in the resu lts section. documented in this encounter Results INR point of care (08/08/2018) P athologist Signature INR 1.0 Specimen (Source) Anatomical Location Collection Method / Collectio n Time Received Time / Laterality Volume Blood specimen 08/08/2018 (specimen) Loren[facility] - BLOOD ORDERABLES documented in this encounter Visit Diagnoses Diagnosis S/P TAVR (transcatheter aortic valve rep lacement) documented in this encounter Care Teams Deep Fryer Assembler Relationship Specialty Start Date End Date Elyse Paredes MD PCP - General Family Practice 12/22/13 04/21/22 [address] [place] [address] documented as of this encounter
--- OUTSIDE RECORDS SUMMARY | 2022-07-02 13:39 | XMS_ITS | Encounter Summary ---
:1950 Author Organization [place] Address [address] [place] [address] Care Team Providers Name Role Phone Elyse Paredes MD Primary Care Provider Encounter Details Date Type Department Care Team Description 07/22/2018 Ambulatory - [facility] Provider, S/P TAVR [facility] Heart [facility] (transcathe [facility] Fransico aortic valve [address] replacement) [place] [address] Social History Tobacco Use Types Packs/Day Years Used Date Smoking Tobacco: Never Assessed Sex Assigned at Date Recorded Not on file documented as of this encounter Plan of Treatment Not on filedocumented as of this encounter Visit Diagnoses Diagnosis S/P TAVR (transcatheter aortic valve rep lacement) documented in this encounter Care Teams Fruit Grading Supervisor Relationship Specialty Start Date End Date Elyse Paredes MD PCP - General Family Practice 12/22/13 04/21/22 [address] [place], [place] [id number] documented as of this encounter
--- OUTSIDE RECORDS SUMMARY | 2022-07-02 13:39 | XMS_ITS | Encounter Summary ---
:1950 Author Organization [place] Address [address] [place] [address] Care Team Providers Name Role Phone Elyse Paredes MD Primary Care Provider Reason for Visit Reason Comments Medication Refill Encounter Details Date Type Department Care Team Description 07/30/2018 Communication - [facility], Medicat ion Refill [facility] GRIFFIN Ruiz [facility] [address] [place], [place] [address] [address] [place], [place] [phone] [address] Social History Tobacco Use Types Packs/Day Years Used Date Smoking Tobacco: Never Assessed Sex Assigned at Date Recorded Not on file documented as of this encounter Plan of Treatment Not on filedocumented as of this encounter Visit Diagnoses Diagnosis Paroxysmal atrial fibrillation (H) Atrial fibrillation documented in this encounter Care Teams Cardiac Exercise Specialist Relationship Specialty Start Date End Date Elyse Paredes MD PCP - General Family Practice 12/22/13 04/21/22 [address] [place] [address] documented as of this encounter
--- OUTSIDE RECORDS SUMMARY | 2022-07-02 13:39 | XMS_ITS | Encounter Summary ---
:1950 Author Organization [place] Address [address] [place] [address] Care Team Providers Name Role Phone Elyse Paredes MD Primary Care Provider Encounter Details Date Type Department Care Team Description 07/13/2018 Ambulatory - [facility] [address] [place] [address] Social History Tobacco Use Types Packs/Day Years Used Date Smoking Tobacco: Never Assessed Sex Assigned at Date Recorded Not on file documented as of this encounter Plan of Treatment Not on filedocumented as of this encounter Procedures Procedure Name Priority Date/Time Associated Diagnosis Comme nts GLUCOSE BY METER Routine 07/13/2018 12:11 PM Resu lts for this POCT CHANNEL PROCESS SUPERVISOR procedure are i n the results section. documented in this encounter Results Glucose by meter POCT (07/13/2018 12:11 PM CHANNEL PROCESS SUPERVISOR) P athologist Signature GLUCOSE BY 124 mg/dL 07/13/2018 [facility] METER POCT 12:11 PM [facility] POCT RESULTS Comment: Reference Ranges ? Age ?Normal ?Critical Values ? 0 day ?44-98 mg/d L ? <40 and >=400 mg/dL ? 1 day ?53-93 mg/d L ? <50 and >=400 mg/dL ? 2 day ?50-100 mg/ dL ?<50 and >=400 mg/dL ? 3 day ?62-110 mg/ dL ?<50 and >=400 mg/dL ? 4-7 day ?57-107 mg/d L ?<50 and >=400 mg/dL ? 8 d - 6 yr ? 69-115 mg/dL ?<50 and >=400 mg/dL ? 6 yr - 11 yr ?? 84-110 mg/dL ?<50 and >=400 mg/dL ? 11 yr - 16 yr ??79-116 mg/dL ?<50 and >=400 mg/dL ? > 16 yr ?70-125 mg/d L ?<60 and >=400 mg/dL Specimen Anatomical Collection Method Collection Time Receive d Time (Source) Location / / Volume Laterality Blood specimen 07/13/2018 12:11 8 6:49 (specimen) PM CHANNEL PROCESS SUPERVISOR AM CHANNEL PROCESS SUPERVISOR Narrative [facility] POCT RESULTS - 07/13 12:11 PM CHANNEL PROCESS SUPERVISOR arterial/capillary Draw Historical Provider LAB - ENTER/EDIT POCT Performing Organization Address City/State/ZIP Code Phon e Number [facility] POCT RESULTS [address] [place] [address] documented in this encounter Visit Diagnoses Diagnosis S/P coronary artery stent placement Postsurgical percutaneous transluminal c oronary angioplasty status documented in this encounter Care Teams Lumber Loader Relationship Specialty Start Date End Date Elyse Paredes MD PCP - General Family Practice 12/22/13 04/21/22 [address] [place] [address] documented as of this encounter
--- OUTSIDE RECORDS SUMMARY | 2022-07-02 13:39 | XMS_ITS | Encounter Summary ---
:1950 Author Organization [place] Address [address] [place] [address]. [place] [address] Care Team Providers Name Role Phone Elyse Paredes MD Primary Care Provider Encounter Details Date Type Department Care Team Description 08/05/2018 Records - [facility] Provider, Histo rical External Imaging [facility] [place] [address] Social History Tobacco Use Types Packs/Day Years Used Date Smoking Tobacco: Never Assessed Sex Assigned at Date Recorded Not on file documented as of this encounter Plan of Treatment Not on filedocumented as of this encounter Procedures Procedure Name Priority Date/Time Associated Diagnosis Comme nts US EXTERNAL IMAGING Routine 07/28/2018 2:06 PM Re sults for this BREAST BINDER OPERATOR procedure are i n the results section. documented in this encounter Results US External Imaging Breast (07/28/2018 2:06 PM BINDER OPERATOR) Anatomical Region Laterality Modality Other Specimen (Source) Anatomical Location Collection Method / Collectio n Time Received Time / Laterality Volume Narrative 08/05/2018 2:06 PM BINDER OPERATOR Please see PACS Hyperlink for images and scanned result text. Procedure Note Provider, Historical - 01/08/2021Formatt ing of this note might be different from the original. Please see PACS Hyperlink for images and scanned result text. Historical Provider IMG EXTERNAL IMAGING ORDERAB LES documented in this encounter Visit Diagnoses Not on filedocumented in this encounter Care Teams Medical Concierge Relationship Specialty Start Date End Date Elyse Paredes MD PCP - General Family Practice 12/22/13 04/21/22 [address] [place] [address] documented as of this encounter
--- OUTSIDE RECORDS SUMMARY | 2022-07-02 13:40 | XMS_ITS | Encounter Summary ---
:1950 Author Organization [place] Address [address] [place] [address]. [place] [address] Care Team Providers Name Role Phone Dagmar Kang MD Unavailable Elyse Paredes MD Primary Care Provider Encounter Details Date Type Department Care Team Description 04/07/2018 Records - [facility] CONVERSION Provider, Karthik raya Social History Tobacco Use Types Packs/Day Years Used Date Smoking Tobacco: Never Assessed Sex Assigned at Date Recorded Not on file documented as of this encounter Plan of Treatment Not on filedocumented as of this encounter Visit Diagnoses Not on filedocumented in this encounter Care Teams Counseling Services Manager Relationship Specialty Start Date End Date Elyse Paredes MD PCP - General Family Practice 12/22/13 04/21/22 [address] [place] [address] Dagmar Kang MD Assigned Heart and 02/14/21 02/27/22 [address] [facility] [address], Vascular Provider [address] [place] [address] documented as of this encounter
--- OUTSIDE RECORDS SUMMARY | 2022-07-02 13:40 | XMS_ITS | Encounter Summary ---
:1950 Author Organization [place] Address [address] [place] [address] Care Team Providers Name Role Phone Elyse Paredes MD Primary Care Provider Encounter Details Date Type Department Care Team Description 02/04/2018 Hospital Encounter [facility] [place], [place] istent atrial [facility] Nicole AGRIFFIN fibrillation ( H) [facility] Heart Care [address] [place], [place] [address] [address] [place], [place] [phone] [address] Social History Tobacco Use Types Packs/Day Years Used Date Smoking Tobacco: Never Assessed Sex Assigned at Date Recorded Not on file documented as of this encounter Last Filed Vital Signs Vital Sign Reading Time Taken Comments Blood Pressure - - Pulse - - Temperature - - Respiratory Rate - - Oxygen Saturation - - Inhaled Oxygen Concentration - - Weight 135.2 kg (298 lb) 02/04/2018 10:02 AM CDT Height 160 cm (5' 3) 02/04/2018 10:02 AM CDT Body Mass Index 52.79 02/04/2018 10:02 AM CDT documented in this encounter Medications [...] Associated Diagnosis Comme nts ECHO COMPLETE Routine 02/04/2018 11:08 AM Persistent atrial Re sults for this CDT fibrillation (H) procedure a re in the results section. documented in this encounter Results Echocardiogram Complete (02/04/2018 11:08 AM CDT) [facility] gist Method Time Signature LV volume diastolic 88 46 - 106 02/04/2018 HE RADIAN T cm3 2:26 PM CDT CONVERSION LV volume systolic 36 14 - 42 02/04/2018 HE RADIANT cm3 2:26 PM CDT CONVERSION HR 52 bpm 02/04/2018 HE RADIANT 2:26 PM CDT CONVERSION INTERVENTRICULAR 0.9 0.6 - 0.9 02/04/2018 HE RADIANT SEPTUM IN END cm 2:26 PM CDT CONVERSION DIASTOLE LVIDd 5.3 3.8 - 5.2 02/04/2018 HE RADIANT cm 2:26 PM CDT CONVERSION LVIDs 2.8 2.2 - 3.5 02/04/2018 HE RADIANT cm 2:26 PM CDT CONVERSION LEFT VENTRICULAR 2 mmHg 02/04/2018 HE RADIANT OUTFLOW TRACT MEAN 2:26 PM CDT CONVERSIO N GRADIENT LVOT peak VTI 25.6 cm 02/04/2018 HE RADIANT 2:26 PM CDT CONVERSION LEFT VENTRICULAR 59.8 cm/s 02/04/2018 HE RADIANT OUTFLOW TRACT MEAN 2:26 PM CDT CONVERSIO N VELOCITY LVOT peak oniel 87.6 cm/s 02/04/2018 HE RADIANT 2:26 PM CDT CONVERSION LEFT VENTRICULAR 3 mmHg 02/04/2018 HE RADIANT OUTFLOW TRACT PEAK 2:26 PM CDT CONVERSIO N GRADIENT LV PWd 1.1 0.6 - 0.9 02/04/2018 HE RADIANT cm 2:26 PM CDT CONVERSION AR DECEL SLOPE 1,630 mm/s2 02/04/2018 HE RADIANT 2:26 PM CDT CONVERSION AR p 1/2 time 541 ms 02/04/2018 HE RADIANT 2:26 PM CDT CONVERSION AR peak oniel 302 cm/s 02/04/2018 HE RADIANT 2:26 PM CDT CONVERSION AV peak oniel 287 cm/s 02/04/2018 HE RADIANT 2:26 PM CDT CONVERSION AV mean oniel 230 cm/s 02/04/2018 HE RADIANT 2:26 PM CDT CONVERSION AV mean gradient 24 mmHg 02/04/2018 HE RADIANT 2:26 PM CDT CONVERSION AV VTI 90.5 cm 02/04/2018 HE RADIANT 2:26 PM CDT CONVERSION AO root 3.3 cm 02/04/2018 HE RADIANT 2:26 PM CDT CONVERSION MV decel time 204 ms 02/04/2018 HE RADIANT 2:26 PM CDT CONVERSION MV peak A oniel 104 cm/s 02/04/2018 HE RADIANT 2:26 PM CDT CONVERSION MV peak E oniel 105 cm/s 02/04/2018 HE RADIANT 2:26 PM CDT CONVERSION TR peak oniel 232 cm/s 02/04/2018 HE RADIANT 2:26 PM CDT CONVERSION LA AREA 2 29.2 cm2 02/04/2018 HE RADIANT 2:26 PM CDT CONVERSION LA AREA 1 30.1 cm2 02/04/2018 HE RADIANT 2:26 PM CDT CONVERSION LEFT ATRIUM LENGTH 5.94 cm 02/04/2018 HE RADIANT 2:26 PM CDT CONVERSION TAPSE 3 cm 02/04/2018 HE RADIANT 2:26 PM CDT CONVERSION BSA 2.45 m2 02/04/2018 HE RADIANT 2:26 PM CDT CONVERSION End systolic index 63 in 02/04/2018 HE RADIANT (mL/m2) 2:26 PM CDT CONVERSION End diastolic index 4,768 lbs 02/04/2018 HE RADIAN T (mL/m2) 2:26 PM CDT CONVERSION BP 148/70 mmHg 02/04/2018 HE RADIANT 2:26 PM CDT CONVERSION IVS/PW RATIO 0.8 02/04/2018 HE RADIANT 2:26 PM CDT CONVERSION TRICUSPID 21.5 mmHg 02/04/2018 HE RADIANT REGURGITATION PEAK 2:26 PM CDT CONVERSIO N PRESSURE GRADIENT LV FS 47.2 28 - 44 % 02/04/2018 HE RADIANT 2:26 PM CDT CONVERSION Ejection Fraction 59 55 - 75 % 02/04/2018 HE RADIANT 2:26 PM CDT CONVERSION LA volume 125.8 mL 02/04/2018 HE RADIANT 2:26 PM CDT CONVERSION LV mass 200.4 g 02/04/2018 HE RADIANT 2:26 PM CDT CONVERSION AV DIM IND oniel 0.3 02/04/2018 HE RADIANT 2:26 PM CDT CONVERSION MV E/A Ratio 1.0 02/04/2018 HE RADIANT 2:26 PM CDT CONVERSION AV peak gradient 32.9 mmHg 02/04/2018 HE RADIANT 2:26 PM CDT CONVERSION LV systolic volume 14.7 11 - 31 02/04/2018 HE RADIANT index cm3/m2 2:26 PM CDT CONVERSION LV diastolic volume 35.9 34 - 74 02/04/2018 HE RADIAN T index cm3/m2 2:26 PM CDT CONVERSION LA volume index 51.3 mL/m2 02/04/2018 HE RADIANT 2:26 PM CDT CONVERSION LEFT VENTRICLE MASS 81.8 g/m2 02/04/2018 HE RADIAN T INDEX 2:26 PM CDT CONVERSION Height 63.0 in 02/04/2018 HE RADIANT 2:26 PM CDT CONVERSION Weight 298 lbs 02/04/2018 HE RADIANT 2:26 PM CDT CONVERSION AV REGURGITANT PEAK 36.5 mmHg 02/04/2018 HE RADIAN T GRADIENT 2:26 PM CDT CONVERSION AV DIMENSIONLESS 0.3 02/04/2018 HE RADIANT INDEX VTI 2:26 PM CDT CONVERSION LA size 4.3 cm 02/04/2018 HE RADIANT 2:26 PM CDT CONVERSION AV area 1.0 cm2 02/04/2018 HE RADIANT 2:26 PM CDT CONVERSION LVOT diam 2.1 cm 02/04/2018 HE RADIANT 2:26 PM CDT CONVERSION LVOT area 3.46 cm2 02/04/2018 HE RADIANT 2:26 PM CDT CONVERSION LVOT SV 88.6 cm3 02/04/2018 HE RADIANT 2:26 PM CDT CONVERSION LV SVi 36.2 ml/m2 02/04/2018 HE RADIANT 2:26 PM CDT CONVERSION LV CO 4.6 l/min 02/04/2018 HE RADIANT 2:26 PM CDT CONVERSION LV Ci 1.9 l/min/m2 02/04/2018 HE RADIANT 2:26 PM CDT CONVERSION Anatomical Region Laterality Modality Echocardiography Specimen (Source) Anatomical Collection Method Collection Time Re ceived Time Location / / Volume Laterality 02/04/2018 9:56 AM CDT Narrative 02/04/2018 2:26 PM CDT ?? Normal left ventricular size. ?? Left ventricle ejection fraction is n ormal. The calculated left ventricular ejection fraction is 59%. ?? Normal right ventricular size and sys tolic function. ?? Moderate left atrial enlargement. ?? There is a 23 mm RENITA 3 TFX biopros thetic valve present. The maximum gradient recorded 43 mmHg. The mean gradient recorded 24 mmHg. Mild central and mild perivalvular insufficiency. The gradients appear elevated for the prosthetic aortic valve. ?? When compared to the previous study d ated 06/05/2017, the highest mean gradient observed on the prior study is 20 mmHg compared to 24 mmHg on the current examination. There has been a mild increase in the mean gradient across the prosthetic aortic valve between the 2 examinations. Procedure Note Andrew Leblanc MD / Provider, Historic al - 01/07/2021 ?? Normal left ventricular size. ?? Left ventricle ejection fraction is n ormal. The calculated left ventricular ejection fraction is 59%. ?? Normal right ventricular size and sys tolic function. ?? Moderate left atrial enlargement. ?? There is a 23 mm RENITA 3 TFX biopros thetic valve present. The maximum gradient recorded 43 mmHg. The mean gradient recorded 24 mmHg. Mild central and mild perivalvular insufficiency. The gradients appear elevated for the prosthetic aortic valve. ?? When compared to the previous study d ated 06/05/2017, the highest mean gradient observed on the prior study is 20 mmHg compared to 24 mmHg on the current examination. There has been a mild increase in the mean gradient across the prosthetic aortic valve between the 2 examinations. Nicole Salazar APRN ANIMAL SITTER CV ECHO ORDERABLES documented in this encounter Visit Diagnoses Diagnosis Persistent atrial fibrillation (H) Atrial fibrillation documented in this encounter Care Teams Cabinet Worker Relationship Specialty Start Date End Date Elyse Paredes MD PCP - General Family Practice 12/22/13 04/21/22 [address] [place] [address] documented as of this encounter
--- OUTSIDE RECORDS SUMMARY | 2022-07-02 13:40 | XMS_ITS | Encounter Summary ---
:1950 Author Organization [place] Address [address] [place] [address] Care Team Providers Name Role Phone Elyse Paredes MD Primary Care Provider Encounter Details Date Type Department Care Team Description 06/10/2018 [facility] [address] [facility] [address], [address] [place] [address] [phone] Social History Tobacco Use Types Packs/Day Years Used Date Smoking Tobacco: Never Assessed Sex Assigned at Date Recorded Not on file documented as of this encounter Plan of Treatment Not on filedocumented as of this encounter Procedures Procedure Name Priority Date/Time Associated Comments Diagnosis RESPIRATORY AEROBIC Routine 06/10/2018 2:21 PM Re sults for this BACTERIAL CULTURE INTERN procedure are in the results section. documented in this encounter Results Respiratory Aerobic Bacterial Culture (06/10/2018 2:21 PM INTERN) P athologist Signature Culture Usual 06/12/2018 [facility] Khushi 11:48 AM INTERN [facility] Specimen (Source) Anatomical Collection Method Collection Time Re ceived Time Location / / Volume Laterality Respiratory 06/10/2018 2:21 06/10/2018 6 :03 specimen (specimen) PM INTERN PM INTERN Dee Dee Gong PA-C LAB - MICRO GENERAL ORDERABL ES Performing Organization Address City/State/ZIP Code Phon [place] [address] [facility] [address] [facility] documented in this encounter Visit Diagnoses Not on filedocumented in this encounter Care Teams Distance Education Teacher Relationship Specialty Start Date End Date Elyse Paredes MD PCP - General Family Practice 12/22/13 04/21/22 [address] [place] [address] documented as of this encounter
--- OUTSIDE RECORDS SUMMARY | 2022-07-02 13:40 | XMS_ITS | Encounter Summary ---
:1950 Author Organization [place] Address [address] [place] [address] Care Team Providers Name Role Phone Elyse Paredes MD Primary Care Provider Reason for Visit Reason Comments Other Encounter Details Date Type Department Care Team Description 04/25/2018 Communication - [facility] Michelle, Lorenar, Other [facility] MD [address] [facility] [address] [place] [address] Social History Tobacco Use Types Packs/Day Years Used Date Smoking Tobacco: Never Assessed Sex Assigned at Date Recorded Not on file documented as of this encounter Plan of Treatment Not on filedocumented as of this encounter Visit Diagnoses Diagnosis Coronary artery disease involving atka coronary artery of atka heart, angina presence unspecified documented in this encounter Care Teams Pole Classifier Relationship Specialty Start Date End Date Elyse Paredes MD PCP - General Family Practice 12/22/13 04/21/22 15[address] [place] [address] documented as of this encounter
--- OUTSIDE RECORDS SUMMARY | 2022-07-02 13:40 | XMS_ITS | Encounter Summary ---
:1950 Author Organization [place] Address [address] [place] [address] Care Team Providers Name Role Phone Elyse Paredes MD Primary Care Provider Reason for Visit Reason Comments Other Encounter Details Date Type Department Care Team Description 04/07/2018 Communication - [facility] Tanner Anderson PA-C [address] [place] [address] Other [facility] Heart [address] [phone] Social History Tobacco Use Types Packs/Day Years Used Date Smoking Tobacco: Never Assessed Sex Assigned at Date Recorded Not on file documented as of this encounter Plan of Treatment Not on filedocumented as of this encounter Visit Diagnoses Diagnosis Paroxysmal atrial fibrillation (H) Atrial fibrillation documented in this encounter Care Teams Hydraulic Press In Operator Relationship Specialty Start Date End Date Elyse Paredes MD PCP - General Family Practice 12/22/13 04/21/22 15[address] [place] [address] documented as of this encounter
--- OUTSIDE RECORDS SUMMARY | 2022-07-02 13:40 | XMS_ITS | Encounter Summary ---
:1950 Author Organization [place] Address [address] [place] [address]. [place] [address] Care Team Providers Name Role Phone Elyse Paredes MD Primary Care Provider Encounter Details Date Type Department Care Team Description 06/30/2018 Ambulatory - [facility], S/P TAVR [facility] St. Priya John RN (transcathe ter Fransico aortic valve [address] replacement) [place] [phone] Social History Tobacco Use Types Packs/Day Years Used Date Smoking Tobacco: Never Assessed Sex Assigned at Date Recorded Not on file documented as of this encounter Plan of Treatment Not on filedocumented as of this encounter Visit Diagnoses Diagnosis S/P TAVR (transcatheter aortic valve rep lacement) documented in this encounter Care Teams Shade Maker Relationship Specialty Start Date End Date Elyse Paredes MD PCP - General Family Practice 12/22/13 04/21/22 [address] [facility] [place] [address] documented as of this encounter
--- OUTSIDE RECORDS SUMMARY | 2022-07-02 13:40 | XMS_ITS | Encounter Summary ---
:1950 Author Organization [place] Address [address] [place] [address] Care Team Providers Name Role Phone Elyse Paredes MD Primary Care Provider Reason for Visit Reason Comments Results Encounter Details Date Type Department Care Team Description 02/10/2018 Communication - [facility] Tanner Anderson PA-C [address] [place] [address] Results [facility] Heart [address] [phone] Social History Tobacco Use Types Packs/Day Years Used Date Smoking Tobacco: Never Assessed Sex Assigned at Date Recorded Not on file documented as of this encounter Plan of Treatment Not on filedocumented as of this encounter Visit Diagnoses Not on filedocumented in this encounter Care Teams Electrical And Instrument Technician Relationship Specialty Start Date End Date Elyse Paredes MD PCP - General Family Practice 12/22/13 04/21/22 15[address] [place] [address] documented as of this encounter
--- OUTSIDE RECORDS SUMMARY | 2022-07-02 13:40 | XMS_ITS | Encounter Summary ---
:1950 Author Organization [place] Address [address] [place] [address] Care Team Providers Name Role Phone Elyse Paredes MD Primary Care Provider Encounter Details Date Type Department Care Team Description 04/11/2018 Ambulatory - [facility] S/P TAVR ( transcatheter aortic valve replacement); [facility] Paroxysmal atrial fibrillati on (H) [address] [phone] Social History Tobacco Use Types Packs/Day Years Used Date Smoking Tobacco: Never Assessed Sex Assigned at Date Recorded Not on file documented as of this encounter Progress Notes Gabrielle Golden RN - 04/11/2018 1:30 PM CDT INR 5.6 pt has not had INR since 01/19/18. Has taken Warfarin today so will hold Warfarin tue and then 2.5 mg daily with retest in one week. Continue current management dosing of Warfarin. Continue dietof moderate Vitamin K intake. Discussed with pt the need to call with questions or concerns or any change in medication especially herbal medication or OTC. Call with increased bleeding or bruising or any upcoming procedures. documented in this encounter Plan of Treatment Not on filedocumented as of this encounter Procedures Procedure Name Priority Date/Time Associated Diagnosis Comme nts INR POINT OF CARE Routine 04/11/2018 Results fo r this procedure are in the resu lts section. documented in this encounter Results INR point of care (04/11/2018) P athologist Signature INR 5.6 Specimen (Source) Anatomical Location Collection Method / Collectio n Time Received Time / Laterality Volume Blood specimen 04/11/2018 (specimen) Ankush Martinez MD LAB - BLOOD ORDERABLES documented in this encounter Visit Diagnoses Diagnosis S/P TAVR (transcatheter aortic valve rep lacement) Paroxysmal atrial fibrillation (H) Atrial fibrillation documented in this encounter Care Teams Veneer Stock Grader Relationship Specialty Start Date End Date Elyse Paredes MD PCP - General Family Practice 12/22/13 04/21/22 0855 [place] [address] documented as of this encounter
--- OUTSIDE RECORDS SUMMARY | 2022-07-02 13:40 | XMS_ITS | Encounter Summary ---
:1950 Author Organization [place] Address [address] [place] [address] Care Team Providers Name Role Phone Elyse Paredes MD Primary Care Provider Reason for Visit Reason Comments Follow Up Encounter Details Date Type Department Care Team Description 01/27/2018 Office Visit - [facility] Jun Salazar atrial fibrillation (H); [facility] GRIFFIN uRiz (dyspn ea on exertion); Fransico HYDE DEDE on CPAP; [address] hypertension [place], [place] [address] [phone] [place], [place] [phone] [address] Social History Tobacco Use Types Packs/Day Years [...] - - Weight 135.2 kg (298 lb) 01/27/2018 10:49 AM CDT Height 160 cm (5' 3) 01/27/2018 10:49 AM CDT Body Mass Index 52.79 01/27/2018 10:49 AM CDT documented in this encounter Progress Notes Nicole Salazar APRN CNP - 01/27/2018 10:30 AM CDT Images from the original note were not included. Progress Notes by Nicole Salazar CNP at 01/27/2018 10:30 AM Author: Nicole Salazar CNP Service: -- Author Type: Nurse Practitioner Filed: 01/27/2018 12:10 PM Encounter Date: 01/27/2018 Status: Signed Human Resources Benefits Specialist: Nicole Salazar CNP (Nurse Practitioner) Click to link to [facility] ELECTROPHYSIOLOGY NOTE Assessment/Recommendations Assessment/Plan: Diagnoses and all orders for this visit: Persistent atrial fibrillation (H) 200 mg 1 tab orally every day. Due to young age discussed long-term risk with amiodarone is 1% risk of pulmonary fibrosis. Discussed that A. fib occurs more frequently with valvular heart disease. Therefore her A. fib could be more than postop A. Fib. [place] of amiodarone until after that. Ttherefore issue of whether to withdraw amiodarone needs to be addressed when she sees Dr. Kang. Due to high [id number] score, I would be very reluctant to take her off of warfarin. - Echo Complete; Future; Expected date: 01/27/18 CASTRO (dyspnea on exertion) improved with decrease in beta-elpidio so could be some chronotropic incompetence. Discussed case with Ashley and will get complete echo to check a valve. Normal PFTs in 2016. DEDE on CPAP and using CPAP routinely Essential hypertension and well-controlled. And denies any reoccurrence of A. fib on amiodarone [id number] score of 5 and on chronic warfarin. Follow up in clinic with Ashley as planned next Wednesday and then see Dr. Kang for new consult as noninvasive coating operator to follow with routinely in 3 months. History of Present Illness Ms. Marci Diaz is a very pleasant 67 y.o. female who comes in today for EP follow up regarding persistent atrial fibrillation. Marci Diaz has a known history of DEDE and on CPAP, coronary artery disease with stent placement in LAD in May 2017, type 2 diabetes, hypertension and hyperlipidemia. She also has a history of severe aortic stenosis and had to have her on 07/06/2017. She will had paroxysmal and in persistent A. fib after TAVR. She had cardioversion on 08/26/2017 without antiarrhythmic and had early reversion back into atrial fib. She has underlying sinus bradycardia and would not tolerate sotalol. Therefore she was loaded on amiodarone and converted to sinus during loading of medicatio n. I saw her in September and complaining of CASTRO and appear to have heart rhythm heart rate limitations with activity from walking her in the clinic. See my note from 10/27/2017 for more details. She statestoday that dyspnea on exertion is improved and finding that she can walk longer distances. She is clearly better than before she had her aortic valve replacement. 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 She is enjoying jail. She reports that she had GI side effects on Metformin and unable to tolerate even long-acting form of it. She was recently started on injectable trulicity and hopes to lose some weight as she has gained 12 pounds off of metformin. She is motivated to get healthier in her jail so she has joined cardiac rehab as self-pay. She is going to [place] in April and knows that this trip will require lots of walking so she is trying to get in shape for that. Cardiographics (personally reviewed): Results for orders placed during the hospital encounter of 08/05/17 Echo Complete [ECH10] 08/05/2017 Narrative ?? Left ventricle ejection fraction is normal. The calculated left ventricular ejection fraction is 61%. ?? Aortic Valve: There is a bioprosthetic valve present. There is no aortic insufficiency present. The prosthetic valve is normal. ?? When compared to the previous study dated 07/07/2017, no significant change. Results for orders placed or performed in visit on 09/27/17 ECG 12 lead with MUSE Result Value Ref Range SYSTOLIC BLOOD PRESSURE mmHg DIASTOLIC BLOOD PRESSURE mmHg VENTRICULAR RATE 62 BPM ATRIAL RATE 62 BPM P-R INTERVAL 208 ms QRS DURATION 96 ms Q-T INTERVAL 430 ms QTC CALCULATION (BEZET) 436 ms P Plummer degrees R AXIS 5 degrees T AXIS 28 degrees MUSE DIAGNOSIS Sinus rhythm with Premature atrial complexes Otherwise normal ECG When compared with ECG of 08-SEP-2017 14:43, Premature atrial complexes are now Present Left bundle branch block is no longer Present Confirmed by WINDY PIERRE MD LOC:[facility] ([id number]) on 09/27/2017 4:52:27 PM Problem List: Patient Active Problem List Diagnosis ? HLD (hyperlipidemia) ? CASTRO (dyspnea on exertion) ? Coronary artery disease involving [place] coronary artery of [place] heart, angina presence unspecified ? DEDE on CPAP ? Type 2 diabetes mellitus without complication, with long-term current use of insulin (H) ? Essential hypertension ? Calculus of kidney ? Urinary tract stones ? Chronic diastolic congestive heart failure (H) ? S/P TAVR (transcatheter aortic valve replacement) ? Hyperglycemia ? Persistent atrial fibrillation (H) ? Morbid obesity with BMI of 50.0-59.9, adult (H) Physical Examination Review of Systems Vitals: 01/27/18 1049 BP: 134/84 Pulse: (!) 56 Resp: 16 Body mass index is 52.79 kg/(m^2). Wt Readings from Last 3 Encounters: 01/27/18 (!) 298 lb (135.2 kg) 10/27/17 (!) 287 lb (130.2 kg) 10/22/17 (!) 285 lb (129.3 kg) General Appearance: Alert, well-appearing and in no acute distress. HEENT: Atraumatic, normocephalic. No scleral icterus, normal conjunctivae; mucous membranes pink andmoist. Chest: Chest symmetric, spine straight. Lungs: Respirations unlabored: Lungs are clear to auscultation. Cardiovascular: Normal first and second heart sounds with no murmurs, rubs, or gallops. Regular, regular. Radial and posterior tibial pulses are intact. Normal JVD, 1-2+ left leg extremity edema and none on the right. Extremities: No cyanosis or clubbing Musculoskeletal: Moves all extremities Skin: Warm, dry, intact. Neurologic: Mood and affect are appropriate, alert and oriented to person, place, time, and situation General: Weight Gain Eyes: WNL Ears/Nose/Throat: WNL Lungs: WNL Heart: WNL Stomach: WNL Bladder: WNL Muscle/Joints: Joint Pain Skin: WNL Nervous System: WNL Mental Health: [...] Coronary Angiogram; Surgeon: Ankush Martinez MD; Location: [facility]; Service: ? CV TRANSFEMORAL TRANSCATHETER VALVE REPLACEMENT N/A 07/06/2017 Procedure: Transfemoral Transcatheter Aortic Valve Replacement; Surgeon: Ankush Martinez MD; Location: [facility]; Service: ? TOTAL KNEE ARTHROPLASTY Bilateral Family History Problem Relation Age of Onset ? Diabetes Father ? Heart disease Father ? Esophageal cancer Brother ? Urolithiasis Neg Hx ? Clotting disorder Neg Hx ? Gout Neg Hx Social History Social History ? Marital status: Spouse name: N/A ? Number of children: N/A ? 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 Smoking status: Never Smoker ? Smokeless tobacco: Never Used ? Alcohol use No ? Drug use: No ? Sexual activity: Not on file Other Topics Concern ? Not on file Social History Narrative Medications Allergies Current Outpatient Prescriptions Medication Sig Dispense Refill ? amiodarone (PACERONE) 200 MG tablet Take 1 tablet (200 mg total) by mouth daily. Take 1 tab orallytwice a day until October 01 and then decrease to 1 tab orally every day. 90 tablet 3 ? BD INSULIN PEN NEEDLE UF MINI 31 gauge x 3/16 Ndle USE 4-5 PER DAY UTD 0 ? BD INSULIN PEN NEEDLE UF SHORT 31 gauge x 5/16 Ndle USE WITH TOUJEO AND VICTOZA BID 3 ? celecoxib (CELEBREX) 200 MG capsule Take 200 mg by mouth daily. ? clopidogrel (PLAVIX) 75 mg tablet TAKE 1 TABLET BY MOUTH EVERY DAY 90 tablet 3 ? CRESTOR 10 mg tablet Take 10 mg by mouth daily. ? dulaglutide 0.75 mg/0.5 mL PnIj Inject under the skin. ? insulin lispro (HUMALOG) 100 unit/mL injection Inject 6-10 Units under the skin 3 (three) times a day before meals. ? LANTUS SOLOSTAR 100 unit/mL (3 mL) pen 30 Units 2 (two) times a day. ? losartan (COZAAR) 50 MG tablet Take 50 mg by mouth daily. ? metoprolol succinate (TOPROL-XL) 25 MG TAKE 1 TABLET(25 MG) BY MOUTH DAILY 30 tablet 0 ? sertraline (ZOLOFT) 100 MG tablet Take 50 mg by mouth daily. Patient takes 50mg daily ? warfarin (COUMADIN) 5 MG tablet Take 1 tab Mon and Fri and 1/2 tab the rest of the days. 30 tablet0 No current facility-administered medications for this visit. Allergies Allergen Reactions ? Lisinopril Cough ? Metformin Nausea And Vomiting ? Erythromycin Base Rash Medical, surgical, family, social history, and medications were all reviewed and updated as necessary. Lab Results Chemistry CBC/INR CHOLESTROL Lab Results Component Value Date CREATININE 1.20 (H) 08/05/2017 BUN 23 (H) 08/05/2017 NA 139 08/05/2017 K 08/05/2017 Comment: Specimen hemolyzed, result invalid CL 105 08/05/2017 CO2 26 08/05/2017 Creatinine (mg/dL) Date Value 08/05/2017 1.20 (H) 07/08/2017 1.01 07/07/2017 1.00 07/06/2017 1.01 Lab Results Component Value Date BNP 25 07/05/2017 Lab Results Component Value Date WBC 7.3 08/05/2017 HGB 12.6 08/05/2017 HCT 37.9 08/05/2017 MCV 90 08/05/2017 PLT 157 08/05/2017 Lab Results Component Value Date INR 2.60 (!) 01/19/2018 Lab Results Component Value Date CHOL 150 01/21/2017 HDL 45 (L) 01/21/2017 LDLCALC 78 01/21/2017 TRIG 136 01/21/2017 Greater than than 25 minutes were spent face to face in this visit discussing diagnoses as listed above, counseling, and coordination of care. This note has been dictated using voice recognition software. Any grammatical, typographical, or context distortions are unintentional and inherent to the software. Nicole Salazar RN, [facility] Care Electrophysiology [phone] documented in this encounter Plan of Treatment Not on filedocumented as of this encounter Visit Diagnoses Diagnosis Persistent atrial fibrillation (H) Atrial fibrillation CASTRO (dyspnea on exertion) Other dyspnea and respiratory abnormalit y DEDE on CPAP Obstructive sleep apnea (adult) (pediatr ic) Essential hypertension Unspecified essential hypertension documented in this encounter Care Teams Gang Supervisor Relationship Specialty Start Date End Date Elyse Paredes MD PCP - General Family Practice 12/22/13 04/21/22 [address] [place] [address] documented as of this encounter
--- OUTSIDE RECORDS SUMMARY | 2022-07-02 13:40 | XMS_ITS | Encounter Summary ---
:1950 Author Organization [place] Address [address] [place] [address] Care Team Providers Name Role Phone Elyse Paredes MD Primary Care Provider Reason for Visit Reason Comments Other Encounter Details Date Type Department Care Team Description 04/19/2018 Communication - [facility], Other [facility] St. Debby Ng APRN [address] [facility] [phone] [address] [place] [address] Social History Tobacco Use Types Packs/Day Years Used Date Smoking Tobacco: Never Assessed Sex Assigned at Date Recorded Not on file documented as of this encounter Plan of Treatment Not on filedocumented as of this encounter Visit Diagnoses Diagnosis Paroxysmal atrial fibrillation (H) Atrial fibrillation documented in this encounter Care Teams Beverage Steward Relationship Specialty Start Date End Date Elyse Paredes MD PCP - General Family Practice 12/22/13 04/21/22 [address] [place] [address] documented as of this encounter
--- OUTSIDE RECORDS SUMMARY | 2022-07-02 13:40 | XMS_ITS | Encounter Summary ---
:1950 Author Organization [place] Address [address] [place] [address]. [place] [address] Care Team Providers Name Role Phone Elyse Paredes MD Primary Care Provider Encounter Details Date Type Department Care Team Description 06/03/2018 [facility] - [facility] od [address] [facility] [address] [place] [address] Social History Tobacco Use Types Packs/Day Years Used Date Smoking Tobacco: Never Assessed Sex Assigned at Date Recorded Not on file documented as of this encounter Plan of Treatment Not on filedocumented as of this encounter Visit Diagnoses Not on filedocumented in this encounter Care Teams Delicatessen Goods Stock Clerk Relationship Specialty Start Date End Date Elyse Paredes MD PCP - General Family Practice 12/22/13 04/21/22 1540 [place], [place] [id number] documented as of this encounter
--- OUTSIDE RECORDS SUMMARY | 2022-07-02 13:40 | XMS_ITS | Encounter Summary ---
:1950 Author Organization [place] Address [address] [place] [address] Care Team Providers Name Role Phone Elyse Paredes MD Primary Care Provider Encounter Details Date Type Department Care Team Description 07/04/2018 Ambulatory - [facility] S/P TAVR [facility] Perezu dorota (transcatheter aortic [address] valve replacement) [place] [address] Social History Tobacco Use Types Packs/Day Years Used Date Smoking Tobacco: Never Assessed Sex Assigned at Date Recorded Not on file documented as of this encounter Progress Notes Gabrielle Golden RN - 07/04/2018 1:30 PM CST INR 2. After talking with pt and discussing history [...] coming procedures. Cautioned about using Herbal medication. 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 documented in this encounter Results INR point of care (07/04/2018) P athologist Signature INR 2.2 Specimen (Source) Anatomical Location Collection Method / Collectio n Time Received Time / Laterality Volume Blood specimen 07/04/2018 (specimen) Ankush Martinez MD LAB - BLOOD ORDERABLES documented in this encounter Visit Diagnoses Diagnosis S/P TAVR (transcatheter aortic valve rep lacement) documented in this encounter Care Teams Chairlift Operator Relationship Specialty Start Date End Date Elyse Paredes MD PCP - General Family Practice 12/22/13 04/21/22 1540 [place] [address] documented as of this encounter
--- OUTSIDE RECORDS SUMMARY | 2022-07-02 13:40 | XMS_ITS | Encounter Summary ---
:1950 Author Organization [place] Address [address] [place] [address] Care Team Providers Name Role Phone Elyse Paredes MD Primary Care Provider Encounter Details Date Type Department Care Team Description 05/19/2018 [facility] Paroxysmal atrial [facility] Heart [facility] fibrillation (H) [address] [phone] Social History Tobacco Use Types Packs/Day Years Used Date Smoking Tobacco: Never Assessed Sex Assigned at Date Recorded Not on file documented as of this encounter Plan of Treatment Not on filedocumented as of this encounter Procedures Procedure Name Priority Date/Time Associated Diagnosis Comme nts INR POINT OF CARE Routine 05/19/2018 10:49 AM Res ults for this CDT procedure are i n the results section. documented in this encounter Results (ABNORMAL) INR point of care (05/19/2018 10:49 AM CDT) P athologist Signature POC INR 3.70 (A) 0.90 - 1.10 05/19/2018 10:49 AM CDT Comment: Patient states she has 5mg tabl ets. takes 5mg Mon & Fri, 2.5mg all other days. She was on vacation for 2 weeks an d possible missed a dose with time change. Please call [phone] with dosing ins tructions. GIUSEPPE GOYAL Specimen (Source) Anatomical Collection Method Collection Time Re ceived Time Location / / Volume Laterality Blood specimen 05/19/2018 10:49 (specimen) AM CDT NicoleLauren Salazar APRN BISCUIT MACHINE OPERATOR LAB - BLOOD ORDERABLES documented in this encounter Visit Diagnoses Diagnosis Paroxysmal atrial fibrillation (H) Atrial fibrillation documented in this encounter Care Teams Assembler Utility Buildings Relationship Specialty Start Date End Date Elyse Paredes MD PCP - General Family Practice 12/22/13 04/21/22 [address] [place] [address] documented as of this encounter
--- OUTSIDE RECORDS SUMMARY | 2022-07-02 13:40 | XMS_ITS | Encounter Summary ---
:1950 Author Organization [facility] Address [address] [place] [address]. [place] [address] Care Team Providers Name Role Phone Elyse Paredes MD Primary Care Provider Reason for Visit Reason Comments Follow Up Encounter Details Date Type Department Care Team Description 03/29/2018 Communication - [facility] [place], Follow Up [facility] Nicole Ng APRN [facility] [address] [facility] 1600 [facility] [address] [place] [address] [phone] Social History Tobacco Use Types Packs/Day Years Used Date Smoking Tobacco: Never Assessed Sex Assigned at Date Recorded Not on file documented as of this encounter Plan of Treatment Not on filedocumented as of this encounter Visit Diagnoses Diagnosis Benign essential hypertension Essential hypertension, benign documented in this encounter Care Teams Forestry Supervisor Relationship Specialty Start Date End Date Elyse Paredes MD PCP - General Family Practice 12/22/13 04/21/22 [address] [place] [address] documented as of this encounter
--- OUTSIDE RECORDS SUMMARY | 2022-07-02 13:40 | XMS_ITS | Encounter Summary ---
:1950 Author Organization [facility] Address [address] [place] [address] Care Team Providers Name Role Phone Elyse Paredes MD Primary Care Provider Encounter Details Date Type Department Care Team Description 05/20/2018 [facility] Heart [facility] Nicole Ng APRN [facility] 1600 [facility] 1600 [facility] [address] [place] [address] [phone] Social History Tobacco Use Types Packs/Day Years Used Date Smoking Tobacco: Never Assessed Sex Assigned at Date Recorded Not on file documented as of this encounter Plan of Treatment Not on filedocumented as of this encounter Visit Diagnoses Not on filedocumented in this encounter Care Teams Nuclear Medicine Technician Relationship Specialty Start Date End Date Elyse Paredes MD PCP - General Family Practice 12/22/13 04/21/22 [address] [place] [address] documented as of this encounter
--- OUTSIDE RECORDS SUMMARY | 2022-07-02 13:40 | XMS_ITS | Encounter Summary ---
:1950 Author Organization [facility] Address [address] [place] [address] Care Team Providers Name Role Phone Elyse Paredes MD Primary Care Provider Encounter Details Date Type Department Care Team Description 04/18/2018 Ambulatory - [facility] S/P TAVR [facility] Heart [facility] (transcatheter aortic [address] valve replacement) [place] [address] Social History Tobacco Use Types Packs/Day Years Used Date Smoking Tobacco: Never Assessed Sex Assigned at Date Recorded Not on file documented as of this encounter Progress Notes Gabrielle Golden RN - 04/18/2018 1:30 PM CDT INR 2.9 take 2.5 mg daily and retest in one week.After talking with pt and discussing history of greens/salads and medication change. Pt will continue with current diet and dosing of Warfarin. Continuewith moderation of Vit K and green leafy [...] Comme nts INR POINT OF CARE Routine 04/18/2018 Results fo r this procedure are in the resu lts section. documented in this encounter Results INR point of care (04/18/2018) P athologist Signature INR 2.9 Specimen (Source) Anatomical Location Collection Method / Collectio n Time Received Time / Laterality Volume Blood specimen 04/18/2018 (specimen) Ankush Martinez MD LAB - BLOOD ORDERABLES documented in this encounter Visit Diagnoses Diagnosis S/P TAVR (transcatheter aortic valve rep lacement) documented in this encounter Care Teams Structural Rigger Relationship Specialty Start Date End Date Elyse Paredes MD PCP - General Family Practice 12/22/13 04/21/22 [address] [place] [address] documented as of this encounter
--- OUTSIDE RECORDS SUMMARY | 2022-07-02 13:40 | XMS_ITS | Encounter Summary ---
:1950 Author Organization [facility] Address [address] [place] [address]. [place] [address] Care Team Providers Name Role Phone Dagmar Kang MD Unavailable Elyse Paredes MD Primary Care Provider Encounter Details Date Type Department Care Team Description 01/26/2018 Records - [facility] CONVERSION Provider, Karthik raay Social History Tobacco Use Types Packs/Day Years Used Date Smoking Tobacco: Never Assessed Sex Assigned at Date Recorded Not on file documented as of this encounter Plan of Treatment Not on filedocumented as of this encounter Visit Diagnoses Not on filedocumented in this encounter Care Teams Drywall Metal Stud Worker Relationship Specialty Start Date End Date Elyse Paredes MD PCP - General Family Practice 12/22/13 04/21/22 [address] [place] [address] Dagmar Kang MD Assigned Heart and 02/14/21 02/27/22 [address] [facility] [address], Vascular Provider [address] [place] [address] documented as of this encounter
--- OUTSIDE RECORDS SUMMARY | 2022-07-02 13:40 | XMS_ITS | Encounter Summary ---
:1950 Author Organization [facility] Address [address] [place] [address] Care Team Providers Name Role Phone Elyse Paredes MD Primary Care Provider Encounter Details Date Type Department Care Team Description 02/18/2018 Hospital Encounter [facility] [place], Sinus bradycardia [facility] Nicole Ng APRN Heart Care [facility] [address] [place], [place] [address] [address] [place], [place] [phone] [address] Social History Tobacco Use Types Packs/Day Years Used Date Smoking Tobacco: Never Assessed Sex Assigned at Date Recorded Not on file documented as of this encounter Medications at Time of Discharge Medication Sig Dispensed Refills Start Date End Date BD INSULIN PEN NEEDLE UF [BD INSULIN PEN 0 2016 MINI 31 gauge x 16 NEEDLE UF MINI 31 Ndle GAUGE X [...] Name Priority Date/Time Associated Diagnosis Comme nts HOLTER MONITOR 24 Routine 02/18/2018 1:50 PM Sinus bradycardia Results for this HOUR ADULT CDT procedure are i n PEDIATRIC the results section. documented in this encounter Results Holter Monitor 24 hour Adult Pediatric (02/18/2018 1:50 PM CDT) Anatomical Region Laterality Modality Other Specimen (Source) Anatomical Collection Method Collection Time Re ceived Time Location / / Volume Laterality 02/18/2018 1:28 PM CDT Narrative 02/23/2018 5:10 PM CDT HOLTER MONITOR IMPRESSION: 1. ??A 24-hour Holter monitor was tonny martin 02/18/2018 with date of interpretation 02/22/2018. 2. ??Sinus rhythm is present with normal electrocardiographic intervals. 3. ??Average heart rate is 62 beats per minute and ranges between 36 and 122 beats per minute. 4. ??A number of pauses up to 2 seconds noted. ??These are related to blocked premature atrial complexes. 5. ??Rare ventricular ectopy with 2 sing le premature ventricular complexes. 6. ??Infrequent supraventricular ectopy with 181 premature atrial complexes including lead blocked PACs that occur quite early . ??No atrial tachycardia or atrial fibrillation identified. 7. ??Patient activity diary was reviewed and no symptoms were identified. DISCUSSION: 1. ??A few noncomplex atrial ectopy. ??T he blocked PACs do cause pauses up to 2 seconds. 2. ??Otherwise, normal Holter monitor. JUAN Martin 02/22/2018 18:14:39 T 02/22/2018 18:41:21 R 02/22/2018 18:41:21 [id number] cc: ELYSE SALAZAR [facility] Procedure Note Juan De Luna MD / [facility] - 01/06/2021 HOLTER MONITOR IMPRESSION: 1. A 24-hour Holter monitor was applied 02/18/2018 with date of interpretation 02/22/2018. 2. Sinus rhythm is present with normal e lectrocardiographic intervals. 3. Average heart rate is 62 beats per mi nute and ranges between 36 and 122 beats per minute. 4. A number of pauses up to 2 seconds no curtis. These are related to blocked premature atrial complexes. 5. Rare ventricular ectopy with 2 single premature ventricular complexes. 6. Infrequent supraventricular ectopy wi th 181 premature atrial complexes including lead blocked PACs that occur quite early . No atrial tachycardia or atrial fibrillation identified. 7. Patient activity diary was reviewed a nd no symptoms were identified. DISCUSSION: 1. A few noncomplex atrial ectopy. The b locked PACs do cause pauses up to 2 seconds. 2. Otherwise, normal Holter monitor. JUAN Martin 02/22/2018 18:14:39 T 02/22/2018 18:41:21 R 02/22/2018 18:41:21 [id number] cc: ELYSE SALAZAR [facility] Nicole Salazar MICROSOFT EXCHANGE ADMINISTRATOR LINUX DEVELOPER CV CARDI[facility] SERVICES ORDERA BLES documented in this encounter Visit Diagnoses Diagnosis Sinus bradycardia Other specified cardiac dysrhythmias documented in this encounter Care Teams Biometrics Specialist Relationship Specialty Start Date End Date Elyse Paredes MD PCP - General Family Practice 12/22/13 04/21/22 [address] [place] [address] documented as of this encounter
--- OUTSIDE RECORDS SUMMARY | 2022-07-02 13:40 | XMS_ITS | Encounter Summary ---
:1950 Author Organization [facility] Address [address] [place] [address] Care Team Providers Name Role Phone Elyse Paredes MD Primary Care Provider Encounter Details Date Type Department Care Team Description 05/19/2018 [facility] PAY[place] John (transcatheter [place] aortic valve [address] [facility] replacement) [place] [address] [place] [address] Social History Tobacco Use Types Packs/Day Years Used Date Smoking Tobacco: Never Assessed Sex Assigned at Date Recorded Not on file documented as of this encounter Progress Notes Gabrielle Golden RN - 05/19/2018 12:40 PM CDT INR 3.7 Left VM message with return phone number for questions and concerns. [phone] Decrease Warfarin to 5 mg Wednesday and 2.5 mg all other days. Retest in 2 weeks. After talking with ptand discussing history of greens/salads and medication change. Pt will continue with current diet and dosing of Warfarin. Continue with moderation of Vit K and green leafy vegetables. Cautioned to callwith increase bruising or bleeding. Reminded to call with medication change especially antibiotic. Call with any questions or concerns or any up coming procedures. Cautioned about using Herbal medication. documented in this encounter Plan of Treatment Not on filedocumented as of this encounter Visit Diagnoses Diagnosis S/P TAVR (transcatheter aortic valve rep lacement) documented in this encounter Care Teams Able Bodied Watchman Relationship Specialty Start Date End Date Elyse Paredes MD PCP - General Family Practice 12/22/13 04/21/22 [address] [place] [address] documented as of this encounter
--- OUTSIDE RECORDS SUMMARY | 2022-07-02 13:40 | XMS_ITS | Encounter Summary ---
:1950 Author Organization [facility] Address [address] [place] [address] Care Team Providers Name Role Phone Elyse Paredes MD Primary Care Provider Reason for Visit Reason Comments Follow Up Encounter Details Date Type Department Care Team Description 05/19/2018 Office Visit - [facility] Jun Salazar nt atrial fibrillation (H); [facility] Nicole Ng APRN S/P TAVR ( transcatheter aortic valve replacement); Fransico HYDE Chronic diastolic congestive heart failu re (H); [address] 1600 [facility] Essential hypertension; [place], [place] [address] Benign essential hypertension; [address] [place], [place] CASTRO (dyspnea on exertion) [phone] [address] Social History Tobacco Use Types Packs/Day Years [...] - - Weight 130.2 kg (287 lb) 05/19/2018 10:38 AM CDT Height 160 cm (5' 3) 05/19/2018 10:38 AM CDT Body Mass Index 50.84 05/19/2018 10:38 AM CDT documented in this encounter Progress Notes Nicole Salazar APRN RAIL SIGNAL DESIGNER - 05/19/2018 10:30 AM CDT Images from the original note were not included. Progress Notes by Nicole Salazar CNP at 05/19/2018 10:30 AM Author: Nicole Salazar CNP Service: -- Author Type: Nurse Practitioner Filed: 05/19/2018 11:43 AM Encounter Date: 05/19/2018 Status: Signed Engineered Wood Designer: Nicole Salazar CNP (Nurse Practitioner) Click to link to [facility] HEART [facility] ELECTROPHYSIOLOGY NOTE Assessment/Recommendations Assessment/Plan: Diagnoses and all orders for this visit: Persistent atrial fibrillation (H) occurred post TAVR. Due to age of 68, she is not a good candidateto stay on amiodarone long-term. Since she had not previously had A. Fib, I recommended weaning of amiodarone. To decrease amiodarone to 200 mg p.o. 5 of 7 [address]. [address] she sees Dr. Kang I would recommend discontinuing amiodarone and to monitor for reoccurrence of A. fib. Marci checks her pulse with the heart rate tyra on her phone and to continue to do this several times a week. She is going to continue in cardiac rehab and discussed that if there is concerns that she may be out of rhythm to discuss this with cardiac rehab staff. I be happy to see her if there is recurrence of A. fib. I will ask Tarah Olivo LPN to do complete PFTs if Marci is still on amiodarone in September 2018. - amiodarone (PACERONE) 200 MG tablet; Take 1 tab orally once a day for 5 of 7 days. Dispense: 80 tablet; Refill: 3 - ALT (SGPT) S/P TAVR (transcatheter aortic valve replacement) and will get complete echo prior to appointment with Dr. Kang in September 2018 as I think a six-month echo is warranted given some increase in mean gradient seen in the summer to see Ashley KILLIAN in July of this year as 1 year post TAVR. - Echo Complete; Future; Expected date: 05/19/18 Chronic diastolic congestive heart failure (H) and no symptoms of decompensated heart failure. CASTRO symptoms are stable. Benign essential hypertension and well-controlled. I increase losartan from 50- 75 mg at last visit and did not do BMP. Will get today. - Basic metabolic panel [id number] score of 5 and on chronic warfarin. INR was done today and will be sent to her warfarin nurse. Follow up in clinic as outlined above. History of Present Illness Ms. Marci Diaz is a very pleasant 68 y.o. female who comes in today for EP follow-up regarding persistent atrial fibrillation. Marci Diaz has a known history of DEDE on CPAP, coronary artery diseasewith stent placement in LAD in May 2017, type 2 diabetes, hypertension and hyperlipidemia. She also has a history of severe aortic stenosis and had Elly in July 2017. She had paroxysmal and then persistent atrial fibrillation after Elly. She had cardioversion in August 2017 without antiarrhythmic and had early reversion back into A. fib. She is underlying sinus bradycardia and was loaded on amiodarone and converted to sinus with loading of amiodarone. She continues to have dyspnea on exertion. She spent several weeks in [place] on vacation and tells me that despite her ability to exercise on a machine and for 45 minutes in cardiac rehab without CASTRO she experienced CASTRO with walking more than a block. This limited her ability to see some of the sites. She it sounds like she really push herself hard to do physical activities. She is concerned that her aortic valve is not working correctly.I did the echo this summer to look at valve and mild increase in mean gradient was noted. Unfortunately she was supposed to see Dr. Kang at this visit and instead is seeing me. See above for more details. Cardiographics (personally reviewed): Results for orders placed during the hospital encounter of 02/04/18 Echo Complete [ECH10] 02/04/2018 Narrative ?? Normal left ventricular size. ?? Left ventricle ejection fraction is normal. The calculated left ventricular ejection fraction is 59%. ?? Normal right ventricular size and systolic function. ?? Moderate left atrial enlargement. ?? There is a 23 mm RENITA 3 TFX bioprosthetic valve present. The maximum gradient recorded 43 mmHg. The mean gradient recorded 24 mmHg. Mild central and mild perivalvular insufficiency. The gradients appear elevated for the prosthetic aortic valve. ?? When compared to the previous study dated 06/05/2017, the highest mean gradient observed on the prior study is 20 mmHg compared to 24 mmHg on the current examination. There has been a mild increase in the mean gradient across the prosthetic aortic valve between the 2 examinations. Results for orders placed or performed in visit on 09/27/17 ECG 12 lead with MUSE Result Value Ref Range SYSTOLIC BLOOD PRESSURE mmHg DIASTOLIC BLOOD PRESSURE mmHg VENTRICULAR RATE 62 BPM ATRIAL RATE 62 BPM P-R INTERVAL 208 ms QRS DURATION 96 ms Q-T INTERVAL 430 ms QTC CALCULATION (BEZET) 436 ms P [place] degrees R AXIS 5 degrees T AXIS 28 degrees MUSE DIAGNOSIS Sinus rhythm with Premature atrial complexes Otherwise normal ECG When compared with ECG of 08-SEP-2017 14:43, Premature atrial complexes are now Present Left bundle branch block is no longer Present Confirmed by WINDY PIERRE MD LOC:[facility] ([id number]) on 09/27/2017 4:52:27 PM Problem List: Patient Active Problem List Diagnosis ? HLD (hyperlipidemia) ? CASTRO (dyspnea on exertion) ? Coronary artery disease involving [place] coronary artery of [place] heart, angina presence unspecified ? DEDE on [...] (H) Physical Examination Review of Systems Vitals: 05/19/18 1038 BP: 142/70 Pulse: 60 Resp: 16 Body mass index is 50.84 kg/(m^2). Wt Readings from Last 3 Encounters: 05/19/18 (!) 287 lb (130.2 kg) 02/04/18 (!) 298 lb (135.2 kg) 01/27/18 (!) 298 lb (135.2 kg) General Appearance: Alert, well-appearing and in no acute distress. HEENT: Atraumatic, normocephalic. No scleral icterus, normal conjunctivae; mucous membranes pink andmoist. Chest: Chest symmetric, spine straight. Lungs: Respirations unlabored: Lungs are clear to auscultation. Cardiovascular: Normal first and second heart sounds with no rubs, or gallops. 2/6 systolic murmur. Regular, regular. Radial and posterior tibial pulses are intact. Normal JVD, no edema. Extremities: No cyanosis or clubbing Musculoskeletal: Moves all extremities Skin: Warm, dry, intact. Neurologic: Mood and affect are appropriate, alert and oriented to person, place, time, and situation General: WNL Eyes: WNL Ears/Nose/Throat: WNL Lungs: [...] Coronary Angiogram; Surgeon: Ankush Martinez MD; Location: [facility] Supervisor Fine Grading; Service: ? CV TRANSFEMORAL TRANSCATHETER VALVE REPLACEMENT N/A 07/06/2017 Procedure: Transfemoral Transcatheter Aortic Valve Replacement; Surgeon: Ankush Martinez MD; Location: [facility] Supervisor Fine Grading; Service: ? TOTAL KNEE ARTHROPLASTY Bilateral Family [...] 5 of 7 days. 80 tablet 3 ? BD INSULIN PEN NEEDLE [...] MOUTH EVERY DAY 90 tablet 0 ? CRESTOR 10 mg tablet Take 10 [...] by mouth daily. 135 tablet 3 ? sertraline (ZOLOFT) 100 MG tablet Take 50 mg by mouth daily. Patient takes 50mg daily ? warfarin (COUMADIN) 5 MG tablet TAKE 1 TABLET BY [...] Results Component Value Date CREATININE 1.20 (H) 03/23/2018 BUN 22 03/23/2018 NA 141 03/23/2018 K 4.8 03/23/2018 CL 104 03/23/2018 CO2 25 03/23/2018 Creatinine (mg/dL) Date Value 03/23/2018 1.20 (H) 08/05/2017 1.20 (H) 07/08/2017 1.01 07/07/2017 1.00 Lab Results Component Value Date BNP 25 07/05/2017 Lab Results Component Value Date WBC 7.3 08/05/2017 HGB 12.6 08/05/2017 HCT 37.9 08/05/2017 MCV 90 08/05/2017 PLT 157 08/05/2017 Lab Results Component Value Date INR 3.70 (!) 05/19/2018 Lab Results Component Value Date CHOL 165 03/23/2018 HDL 60 03/23/2018 LDLCALC 75 03/23/2018 TRIG 148 03/23/2018 Total Time- 25 minutes with greater than 50% spent talking to patient and family regarding patient'srelevant diagnoses. This note has been dictated using voice recognition software. Any grammatical, typographical, or context distortions are unintentional and inherent to the software. Nicole Salazar RN, [facility] Electrophysiology [phone] documented in this encounter Plan of Treatment Not on filedocumented as of this encounter Procedures Procedure Name Priority Date/Time Associated Diagnosis Comme nts ALT Routine 05/19/2018 11:27 AM Results for this CDT procedure are i n the results section. BASIC METABOLIC Routine 05/19/2018 11:27 AM Resul ts for this PANEL CDT procedure are i n the results section. documented in this encounter Results ALT (05/19/2018 11:27 AM CDT) P athologist Signature ALT 42 0 - 45 U/L 05/19/2018 HEALTH 11:57 AM CDT [facility] Specimen Anatomical Collection Method / Collection Time Recei gil Time (Source) Location / Volume Laterality Blood specimen Venipuncture / 05/19/2018 11:27 018 (specimen) Unknown AM CDT 11:40 AM CDT Nicole Salazar ORDNANCE ARTIFICER HELPER RAIL SIGNAL DESIGNER LAB - BLOOD ORDERABLES Performing Organization Address [facility] Phon [place] [address] [address] [facility] (ABNORMAL) Basic metabolic panel (05/19/2018 11:27 AM CDT) Patholo gist Method Time Signature Sodium 135 (L) 136 - 145 05/19/2018 HEALTH mmol/L 11:57 AM CDT [facility] Potassium 4.7 3.5 - 5.0 05/19/2018 HEALTH mmol/L 11:57 AM CDT [facility] Chloride 102 98 - 107 05/19/2018 HEALTH mmol/L 11:57 AM CDT [facility] Carbon Dioxide 26 22 - 31 05/19/2018 HEALTH (CO2) mmol/L 11:57 AM CDT [facility] Anion Gap 7 5 - 18 05/19/2018 HEALTH mmol/L 11:57 AM CDT [facility] Glucose 151 (H) 70 - 125 05/19/2018 [facility] mg/dL 11:57 AM T [facility] Calcium 9.9 8.5 - 10.5 05/19/2018 [facility] mg/dL 11:57 AM T [facility] Urea Nitrogen 18 8 - 22 05/19/2018 [facility] mg/dL 11:57 AM T [facility] Creatinine 1.17 (H) 0.60 - 05/19/2018 HEALTH 1.10 mg/dL 11:57 AM T [facility] GFR Estimate If 56 (L) >60 05/19/2018 [facility] Black mL/min/1.7 11:57 AM T [address] LABORATORY GFR Estimate 46 (L) >60 05/19/2018 [facility] mL/min/1.7 11:57 AM T [address] LABORATORY Specimen Anatomical Collection Method / Collection Time Recei gil Time (Source) Location / Volume Laterality Blood specimen Venipuncture / 05/19/2018 11:27 018 (specimen) Unknown AM CDT 11:40 AM CDT Narrative [facility] - 05/19/2018 11:57 AM CDT Fasting Glucose reference range is 70-99 mg/dL per [place] [employer] (ADA) charles martinez. Nicole Salazar APRN RAIL SIGNAL DESIGNER LAB - BLOOD ORDERABLES Performing Organization Address City/State/ZIP Code Phon e Number [facility] [place] [address] [id number] [place] [address] LABORATORY [facility] [address] [place] [address], [facility] documented in this encounter Visit Diagnoses Diagnosis Persistent atrial fibrillation (H) Atrial fibrillation S/P TAVR (transcatheter aortic valve rep lacement) Chronic diastolic congestive heart failu re (H) Chronic diastolic heart failure Essential hypertension Unspecified essential hypertension Benign essential hypertension Essential hypertension, benign CASTRO (dyspnea on exertion) Other dyspnea and respiratory abnormalit y documented in this encounter Care Teams Looping Inspector Relationship Specialty Start Date End Date Elyse Paredes MD PCP - General Family Practice 12/22/13 04/21/22 [address] [place] [address] documented as of this encounter
--- OUTSIDE RECORDS SUMMARY | 2022-07-02 13:40 | XMS_ITS | Encounter Summary ---
:1950 Author Organization [place] Address [address] [place] [address]. [place] [address] Care Team Providers Name Role Phone Elyse Paredes MD Primary Care Provider Encounter Details Date Type Department Care Team Description 05/17/2018 Ambulatory - [facility] [address] [address] Social History Tobacco Use Types Packs/Day Years Used Date Smoking Tobacco: Never Assessed Sex Assigned at Date Recorded Not on file documented as of this encounter Plan of Treatment Not on filedocumented as of this encounter Procedures Procedure Name Priority Date/Time Associated Diagnosis Comme nts LAB RESULT - HIM SCAN Routine 05/17/2018 documented in this encounter Results Lab Result - HIM Scan (05/17/2018) Specimen (Source) Anatomical Location Collection Method / Collectio n Time Received Time / Laterality Volume Narrative This result has an attachment that is no t available. Historical Provider NON-BEAKER LAB TESTING documented in this encounter Visit Diagnoses Not on filedocumented in this encounter Care Teams Quality Assurance Engineer Relationship Specialty Start Date End Date Elyse Paredes MD PCP - General Family Practice 12/22/13 04/21/22 1540 [place], [place] [id number] documented as of this encounter
--- OUTSIDE RECORDS SUMMARY | 2022-07-02 13:40 | XMS_ITS | Encounter Summary ---
:1950 Author Organization [place] Address [address] [place] [address]. [place] [address] Care Team Providers Name Role Phone Elyse Paredes MD Primary Care Provider Reason for Visit Reason Comments Results Encounter Details Date Type Department Care Team Description 03/03/2018 Communication - [facility] Princeding, Results [facility] Debby Ng APRN [address] [facility] [phone] [address] [place] [address] Social History Tobacco Use Types Packs/Day Years Used Date Smoking Tobacco: Never Assessed Sex Assigned at Date Recorded Not on file documented as of this encounter Plan of Treatment Not on filedocumented as of this encounter Visit Diagnoses Not on filedocumented in this encounter Care Teams Coat Joiner Relationship Specialty Start Date End Date Elyse Paredes MD PCP - General Family Practice 12/22/13 04/21/22 1540 [place] [address] documented as of this encounter
--- OUTSIDE RECORDS SUMMARY | 2022-07-02 13:40 | XMS_ITS | Encounter Summary ---
:1950 Author Organization [place] Address [address] [place] [address] Care Team Providers Name Role Phone Elyse Paredes MD Primary Care Provider Encounter Details Date Type Department Care Team Description 02/09/2018 Ambulatory - [facility] [place], Sinus juan pablo ycardia [facility] Nicole Ng APRN [facility] [address] [place], [place] [phone] [place], [place] [phone] [address] Social History Tobacco Use Types Packs/Day Years Used Date Smoking Tobacco: Never Assessed Sex Assigned at Date Recorded Not on file documented as of this encounter Plan of Treatment Not on filedocumented as of this encounter Visit Diagnoses Diagnosis Sinus bradycardia Other specified cardiac dysrhythmias documented in this encounter Care Teams Dehydrator Tender Relationship Specialty Start Date End Date Elyse Paredes MD PCP - General Family Practice 12/22/13 04/21/22 1540 [place] [address] documented as of this encounter
--- OUTSIDE RECORDS SUMMARY | 2022-07-02 13:40 | XMS_ITS | Encounter Summary ---
:1950 Author Organization [place] Address [address] [place] [address] Care Team Providers Name Role Phone Elyse Paredes MD Primary Care Provider Encounter Details Date Type Department Care Team Description 03/24/2018 Records - [facility] [address] [place] [phone] Social History Tobacco Use Types Packs/Day Years Used Date Smoking Tobacco: Never Assessed Sex Assigned at Date Recorded Not on file documented as of this encounter Plan of Treatment Not on filedocumented as of this encounter Procedures Procedure Name Priority Date/Time Associated Diagnosis Comme nts T4 FREE Routine 03/23/2018 10:16 AM Results for this CDT procedure are i n the results section . documented in this encounter Results T4 free (03/23/2018 10:16 AM CDT) P athologist Signature Free T4 1.1 0.7 - 1.8 03/24/2018 [facility] ng/dL 11:17 PM CDT [facility] Specimen Anatomical Collection Method Collection Time Receive d Time (Source) Location / / Volume Laterality Blood specimen 03/23/2018 10:16 8 (specimen) AM CDT 10:39 PM CDT Elyse Paredes MD LAB - BLOOD ORDERABLES Performing Organization Address City/State/ZIP Code Phon [place] [address] [facility] [address] [facility] documented in this encounter Visit Diagnoses Not on filedocumented in this encounter Care Teams Credit And Collections Analyst Relationship Specialty Start Date End Date Reggie, Elyse Armas MD PCP - General Family Practice 12/22/13 04/21/22 [address] [address] documented as of this encounter
--- OUTSIDE RECORDS SUMMARY | 2022-07-02 13:40 | XMS_ITS | Encounter Summary ---
:1950 Author Organization [place] Address [address] [place] [address] Care Team Providers Name Role Phone Elyse Paredes MD Primary Care Provider Encounter Details Date Type Department Care Team Description 04/25/2018 Ambulatory - [facility] S/P TAVR [facility] (transcatheter aortic [address] valve replacement) [place] [address] Social History Tobacco Use Types Packs/Day Years Used Date Smoking Tobacco: Never Assessed Sex Assigned at Date Recorded Not on file documented as of this encounter Progress Notes Gabrielle Golden RN - 04/25/2018 1:30 PM CDT INR 1.4 will increase dose to 5 mg M and F and 2.5 mg all other days. Retest in 3 weeks as pt is in [place]. After talking with pt and discussing history of greens/salads and medication change. Pt will continue with current diet and dosing of Warfarin. Continue with moderation of Vit K and green leafy ve getables. Cautioned to call with increase bruising or bleeding. Reminded to call with medication change especially antibiotic. Call with any questions or concerns or any up coming procedures. Cautionedabout using Herbal medication. documented in this encounter Plan of Treatment Not on filedocumented as of this encounter Procedures Procedure Name Priority Date/Time Associated Diagnosis Comme nts INR POINT OF CARE Routine 04/25/2018 Results fo r this procedure are in the resu lts section. documented in this encounter Results INR point of care (04/25/2018) P athologist Signature INR 1.4 Specimen (Source) Anatomical Location Collection Method / Collectio n Time Received Time / Laterality Volume Blood specimen 04/25/2018 (specimen) Ankush Martinez MD LAB - BLOOD ORDERABLES documented in this encounter Visit Diagnoses Diagnosis S/P TAVR (transcatheter aortic valve rep lacement) documented in this encounter Care Teams Chuck Wagon Cook Relationship Specialty Start Date End Date Elyse Paredes MD PCP - General Family Practice 12/22/13 04/21/22 1540 [place] [address] documented as of this encounter
--- OUTSIDE RECORDS SUMMARY | 2022-07-02 13:40 | XMS_ITS | Encounter Summary ---
:1950 Author Organization [place] Address [address] [place] [address] Care Team Providers Name Role Phone Elyse Paredes MD Primary Care Provider Encounter Details Date Type Department Care Team Description 02/16/2018 Ambulatory - [facility] S/P coronary artery [facility] [address] [place] [address] Social History Tobacco Use Types Packs/Day Years Used Date Smoking Tobacco: Never Assessed Sex Assigned at Date Recorded Not on file documented as of this encounter Progress Notes Historical Provider - 02/16/2018 12:00 PM CDT Pt arrived to outpatient feeling well, but quickly felt shaky, unusual sweaty head, fuzzy vision, weak and rubbery legs. Drank Glucerna she had brought. Glucose check 46. Given Sprite 8 oz X 2. Glucose then 96 on recheck and beginning to feel better. Did some low level exercise with no further problem. States had taken Lantus Insulin just prior to driving down here and felt fine at first. States is nearly positive it was the Lantus she took rather than her short acting insulin. Also, today is the day she normally takes her weekly Trulicity and hasn't taken it yet. Did not eat breakfast prior to CR. Cautioned to eat regular healthy meals and to contact Compliance Quality Performance Analyst's office today to discuss all. Vital signs stable and felt back to normal with glucose 165 upon leaving dept. Progress note faxed to Dr. Shin, kerfer machine operator. documented in this encounter Plan of Treatment Not on filedocumented as of this encounter Procedures Procedure Name Priority Date/Time Associated Diagnosis Comme nts GLUCOSE BY METER Routine 02/16/2018 12:24 PM Resu lts for this POCT CDT procedure are i n the results section. GLUCOSE BY METER Routine 02/16/2018 12:08 PM Resu lts for this POCT CDT procedure are i n the results section. documented in this encounter Results Glucose by meter POCT (02/16/2018 12:24 PM CDT) athologist Signature GLUCOSE BY 96 mg/dL 02/16/2018 [facility] METER POCT 12:24 PM CDT HOSPITAL POCT RESULTS Comment: Reference Ranges ? [...] Location / / Volume Laterality Blood specimen 02/16/2018 12:24 8 7:16 (specimen) PM CDT AM CDT Historical Provider LAB - ENTER/EDIT POCT Performing Organization Address City/State/ZIP Code Phon e Number [facility] POCT RESULTS [address] [place] [address] Glucose by meter POCT (02/16/2018 12:08 PM CDT) athologist Signature GLUCOSE BY 43 mg/dL 02/16/2018 [facility] METER POCT 12:08 PM CDT [facility] POCT RESULTS Comment: Reference Ranges ? [...] Location / / Volume Laterality Blood specimen 02/16/2018 12:08 8 7:16 (specimen) PM CDT AM CDT Historical Provider LAB - ENTER/EDIT POCT Performing Organization Address City/State/ZIP Code Phon e Number [facility] POCT RESULTS [address] [place] [address] documented in this encounter Visit Diagnoses Diagnosis S/P coronary artery stent placement Postsurgical percutaneous transluminal c oronary angioplasty status documented in this encounter Care Teams In Tube Conversion Technician Relationship Specialty Start Date End Date Elyse Paredes MD PCP - General Family Practice 12/22/13 04/21/22 1540 [place], [place] [id number] documented as of this encounter
--- OUTSIDE RECORDS SUMMARY | 2022-07-02 13:40 | XMS_ITS | Encounter Summary ---
:1950 Author Organization [place] Address [address] [place] [address]. [place] [address] Care Team Providers Name Role Phone Dagmar Kang MD Unavailable Elyse Paredes MD Primary Care Provider Encounter Details Date Type Department Care Team Description 05/17/2018 Records - [facility] CONVERSION Provider, Karthik raya Social History Tobacco Use Types Packs/Day Years Used Date Smoking Tobacco: Never Assessed Sex Assigned at Date Recorded Not on file documented as of this encounter Plan of Treatment Not on filedocumented as of this encounter Visit Diagnoses Not on filedocumented in this encounter Care Teams Sap Ppm Consultant Relationship Specialty Start Date End Date Elyse Paredes MD PCP - General Family Practice 12/22/13 04/21/22 15[address] [place] [address] Dagmar Kang MD Assigned Heart and 02/14/21 02/27/22 [address] [facility] [address], Vascular Provider [address] [place] [address] documented as of this encounter
--- OUTSIDE RECORDS SUMMARY | 2022-07-02 13:40 | XMS_ITS | Encounter Summary ---
:1950 Author Organization [place] Address [address] [place] [address] Care Team Providers Name Role Phone Elyse Paredes MD Primary Care Provider Encounter Details Date Type Department Care Team Description 06/30/2018 Ambulatory - [facility] Tarah Olivo use of [facility] [address] [facility] [address] [place] [phone] Social History Tobacco Use Types Packs/Day Years Used Date Smoking Tobacco: Never Assessed Sex Assigned at Date Recorded Not on file documented as of this encounter Plan of Treatment Not on filedocumented as of this encounter Visit Diagnoses Diagnosis 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
--- OUTSIDE RECORDS SUMMARY | 2022-07-02 13:40 | XMS_ITS | Encounter Summary ---
:1950 Author Organization [place] Address [address] [place] [address] Care Team Providers Name Role Phone Elyse Paredes MD Primary Care Provider Encounter Details Date Type Department Care Team Description 03/23/2018 [facility] [address] [phone] Social History Tobacco Use Types Packs/Day Years Used Date Smoking Tobacco: Never Assessed Sex Assigned at Date Recorded Not on file documented as of this encounter Plan of Treatment Not on filedocumented as of this encounter Procedures Procedure Name Priority Date/Time Associated Diagnosis Comme nts TSH Routine 03/23/2018 9:32 AM Results f or this CDT procedure are i n the results section. LIPID PROFILE Routine 03/23/2018 9:32 AM Results for this CDT procedure are i n the results section. BASIC METABOLIC Routine 03/23/2018 9:32 AM Result s for this PANEL CDT procedure are i n the results section. documented in this encounter Results Lipid Profile (03/23/2018 9:32 AM CDT) [facility] Method Time Signature Cholesterol 165 <=199 03/23/2018 HEALTH mg/dL 5:04 PM CDT [facility] Triglycerides 148 <=149 03/23/2018 [facility] mg/dL 5:04 PM CDT [facility] Direct Measure 60 >=50 03/23/2018 [facility] HDL mg/dL 5:04 PM T [facility] LDL Cholesterol 75 <=129 03/23/2018 [facility] Calculated mg/dL 5:04 PM T [facility] Patient Fasting > Unknown 03/23/2018 HEALTH 8hrs? 5:04 PM CDT [facility] Specimen Anatomical Collection Method Collection Time Receive d Time (Source) Location / / Volume Laterality Blood specimen 03/23/2018 9:32 AM 018 2:47 (specimen) CDT PM CDT Elyse Paredes MD LAB - BLOOD ORDERABLES Performing Organization Address City/State/[facility] Code Phon e Number [place] [address] [address] [facility] (ABNORMAL) Basic metabolic panel (03/23/2018 9:32 AM CDT) [facility] Method Time Signature Sodium 141 136 - 145 03/23/2018 [facility] mmol/L 5:04 PM T [facility] Potassium 4.8 3.5 - 5.0 03/23/2018 [facility] mmol/L 5:04 PM [facility] Chloride 104 98 - 107 03/23/2018 [facility] mmol/L 5:04 PM [facility] Carbon Dioxide 25 22 - 31 03/23/2018 [facility] (CO2) mmol/L 5:04 PM [facility] Anion Gap 12 5 - 18 03/23/2018 [facility] mmol/L 5:04 PM [facility] Glucose 162 (H) 70 - 125 03/23/2018 [facility] mg/dL 5:04 PM T [facility] Calcium 9.8 8.5 - 10.5 03/23/2018 [facility] mg/dL 5:04 PM T [facility] Urea Nitrogen 22 8 - 22 03/23/2018 [facility] mg/dL 5:04 PM CDT [facility] Creatinine 1.20 (H) 0.60 - 03/23/2018 HEALTH 1.10 mg/dL 5:04 PM CDT [facility] GFR Estimate If 55 (L) >60 03/23/2018 HEALTH Black mL/min/1.7 5:[address] PM [address] LABORATORY GFR Estimate 45 (L) >60 03/23/2018 [facility] mL/min/1.7 5:04 PM CD[address] LABORATORY Specimen Anatomical Collection Method Collection Time Receive d Time (Source) Location / / Volume Laterality Blood specimen 03/23/2018 9:32 AM 018 2:47 (specimen) CDT PM CDT Narrative O LAB - 03/23/2018 5:04 PM CDT Fasting Glucose reference range is 70-99 mg/dL per [place] [employer] (ADA) charles martinez. Elyse Paredes MD LAB - BLOOD ORDERABLES Performing Organization Address City/State/[facility] Phon [place] [address] [phone] LAB [address] [place] [address], [facility] (ABNORMAL) TSH (03/23/2018 9:32 AM CDT) P athologist Signature TSH 5.91 (H) 0.30 - 5.00 03/23/2018 [facility] uIU/mL 5:17 PM CDT [facility] Specimen Anatomical Collection Method Collection Time Receive d Time (Source) Location / / Volume Laterality Blood specimen 03/23/2018 9:32 AM 018 2:47 (specimen) CDT PM CDT Elyse Paredes MD LAB - BLOOD ORDERABLES Performing Organization Address City/[facility]/ZIP [facility] [place] [place] [address] [facility] [address] [place] [address] [address] [facility] [place] [address] [facility] documented in this encounter Visit Diagnoses Not on filedocumented in this encounter Care Teams Dietary Clerk Relationship Specialty Start Date End Date Elyse Paredes MD PCP - General Family Practice 12/22/13 04/21/22 [address] [place] [address] documented as of this encounter
--- OUTSIDE RECORDS SUMMARY | 2022-07-02 13:40 | XMS_ITS | Encounter Summary ---
:1950 Author Organization [place] Address [address] [place] [address] Care Team Providers Name Role Phone Elyse Paredes MD Primary Care Provider Encounter Details Date Type Department Care Team Description 05/19/2018 Hospital Encounter [facility] Social History Tobacco Use Types Packs/Day Years [...] PEN 3 201604/22/2022 SHORT 31 gauge x 516 NEEDLE UF SHORT 31 Ndle GAUGE X [...] on filedocumented in this encounter Care Teams Dynamotor Repairer Relationship Specialty Start Date End Date Elyse Paredes MD PCP - General Family Practice 12/22/13 04/21/22 [address] [place] [address] documented as of this encounter
--- OUTSIDE RECORDS SUMMARY | 2022-07-02 13:40 | XMS_ITS | Encounter Summary ---
:1950 Author Organization [place] Address [address] [place] [address] Care Team Providers Name Role Phone Elyse Paredes MD Primary Care Provider Encounter Details Date Type Department Care Team Description 06/06/2018 Ambulatory - [facility] S/P TAVR [facility] (transcatheter aortic [address] valve replacement) [place] [address] Social History Tobacco Use Types Packs/Day Years Used Date Smoking Tobacco: Never Assessed Sex Assigned at Date Recorded Not on file documented as of this encounter Progress Notes Gabrielle Golden RN - 06/06/2018 1:00 PM CST INR 2.2 After talking with pt and discussing history of greens/salads and medication change. Pt willcontinue with current diet and dosing of Warfarin. Continue with moderation of Vit K and green leafyvegetables. Cautioned to call with increase bruising or bleeding. Reminded to call with medication change especially antibiotic. Call with any questions or concerns or any up coming procedures. Cautioned about using Herbal medication. RUMENT TECHNICIAN HELPER documented in this encounter Plan of Treatment Not on filedocumented as of this encounter Procedures Procedure Name Priority Date/Time Associated Diagnosis Comme nts INR POINT OF CARE Routine 06/06/2018 Results fo r this procedure are in the resu lts section. documented in this encounter Results INR point of care (06/06/2018) P athologist Signature INR 2.2 Specimen (Source) Anatomical Location Collection Method / Collectio n Time Received Time / Laterality Volume Blood specimen 06/06/2018 (specimen) Ankush Martinez MD LAB - BLOOD ORDERABLES documented in this encounter Visit Diagnoses Diagnosis S/P TAVR (transcatheter aortic valve rep lacement) documented in this encounter Care Teams Citrix Engineer Relationship Specialty Start Date End Date Elyse Paredes MD PCP - General Family Practice 12/22/13 04/21/22 1540 [place] [address] documented as of this encounter
--- OUTSIDE RECORDS SUMMARY | 2022-07-02 13:41 | XMS_ITS | Encounter Summary ---
:1950 Author Organization [place] Address [address] [place] [address] Care Team Providers Name Role Phone Elyse Paredes MD Primary Care Provider Encounter Details Date Type Department Care Team Description 10/20/2017 Amb[facility] - [facility] S/P TAVR [address] (transcatheter aortic [place], [place] valve replace ment) [phone] Social History Tobacco Use Types Packs/Day Years Used Date Smoking Tobacco: Never Assessed Sex Assigned at Date Recorded Not on file documented as of this encounter Last Filed Vital Signs Vital Sign Reading Time Taken Comments Blood Pressure - - Pulse - - Temperature - - Respiratory Rate - - Oxygen Saturation - - Inhaled Oxygen Concentration - - Weight 129.7 kg (286 lb) 10/20/2017 2:00 PM CDT Height - - Body Mass Index 50.66 09/27/2017 10:33 AM POLITICAL CONSULTANT documented in this encounter Plan of Treatment Not on filedocumented as of this encounter Visit Diagnoses Diagnosis S/P TAVR (transcatheter aortic valve rep lacement) documented in this encounter Care Teams Compliance Counsel Relationship Specialty Start Date End Date Elyse Paredes MD PCP - General Family Practice 12/22/13 04/21/22 15[address] [place], [place] [id number] documented as of this encounter
--- OUTSIDE RECORDS SUMMARY | 2022-07-02 13:41 | XMS_ITS | Encounter Summary ---
:1950 Author Organization [facility] Address [address] [place] [id number] Care Team Providers Name Role Phone Elyse Paredes MD Primary Care Provider Encounter Details Date Type Department Care Team Description [facility]/22/2017 [facility]R (transcatheter aort ic valve replacement); [address] S/[place] [phone] Social History Tobacco Use Types Packs/Day Years Used Date Smoking Tobacco: Never Assessed Sex Assigned at Date Recorded Not on file documented as of this encounter Last Filed Vital Signs Vital Sign Reading Time Taken Comments Blood Pressure - - Pulse - - Temperature - - Respiratory Rate - - Oxygen Saturation - - Inhaled Oxygen Concentration - - Weight 129.3 kg (285 lb) 10/22/2017 2:00 PM CDT Height - - Body Mass Index 50.49 09/27/2017 10:33 AM LOCOMOTIVE CRANE OPERATOR HELPER documented in this encounter Progress Notes Historical Provider - 10/22/2017 3:00 PM CDT ITP ASSESSMENT Assessment Day: 90 Day-Discharge Session Number: 36 Precautions: standard cardiac Diagnosis: Stent (Stent DVD) Risk Stratification: High Referring Provider: Ankush Martinez MD EXERCISE Exercise Assessment: Discharge 6 Minute Walk Test Pre Pre Exercise HR: 72 Pre Exercise BP: 138/64 Peak Peak HR: 111 Peak BP: 179/80 Peak feet: 800 Peak O2 SAT: 97 Peak RPE: 13 Peak MPH: 1.52 Symptoms: Peak Symptoms: fatgiued, mild SOB 5 mins. Post 5 Min Post HR: 62 5 Min Post BP: 155/71 Exercise Plan Goals Next 30 days No Data Recorded No Data Recorded No Data Recorded Education Goals: Patient can state cardiac s/s and appropriate emergency response.;Has system for taking medication.;Medication review;All goals in this section met Education Goals Met: Patient can state cardiac s/s and appropriate emergency response.;Has system for taking medication.;Medication review. Goals Met 60 day ADL'S goals met: Pt can climb14 steps to bedroom pacing herself without extreme fatigue. 60 day Leisure goals met: Pt has resumed her crafts at home. 60 day Work goals met: Pt's return to work plan is scheduled for November 08, 2017. 60 Day Progression: Pt has met her above goals. 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 Initial ADL's goals met: Reports felt good the first 2 weeks and could do the stairs without SOB butsince in afib now is having difficulty with tolerance. Cardioversion scheduled for next week. Initial Leisure goals met: Patient has attended 1-2 social activities a week without symptoms of fatigue. Intial Work goals met: Has not returned to work yet as has cardioversion scheduled next week. Initial Progression: Patient has improved cardiac rehab workout sessions from 10-15 minutes to 30-40minutes in 2.1-2.5 MET level. Varying levels of tolerance and back pain are limiting overall progression. Reports does feel since she has been in afib has noticed decreased activity tolerance. RPE 11-14 Resistive Training?: Yes Current Exercise (mins/week): 90 Interventions Home Exercise: Mode: walking/ stationary bike Frequency: 3-4 x week Duration: 10-30 minutes minimum of 3 x week Education Material : Educational videos;Provide written material;Individual education and counseling;Offer educational classes Education Completed Exercise Education Completed: Cardiac Anatomy;Signs and Symptoms;Medication review;Emergency Plan;Home Exercise;Warm up/cool down;Benefits of Exercise;End point of exercise;RPE;BP/HR Reponse to exercise Exercise Follow-up/Discharge Follow up/Discharge: Pt plans to sign up for [facility] to help her get in her weekly exercise. NUTRITION Nutrition Assessment: Discharge Nutrition Risk Factors: Nutrition Risk Factors: Diabetes;Dyslipidemia;Overweight HbA1c: 7.5 Monitors blood sugar at home: Yes Frequency: 4x day Cholesterol: 150 LDL: 78 HDL: 45 Triglycerides: 136 Nutrition Plan Interventions Diet Consult: Completed Other Nutrition Intervention: Provide with Written Material Initial Rate Your Plate Score: 56 No Data Recorded Education Completed Nutrition Education Completed: Low Saturated fat diet;Low sodium diet;Weight management;Carbohydratecounting (rec. 3 - 4 carb. choices per meal) Goals Nutrition Goals (Next 30 days): Patient will follow a low sodium diet;Patient will follow a low saturated fat diet;Patient knows appropriate portion size;Patient will lose weight Goals Met Nutrition Goals Met: Patient follows a low sodium diet;Patient states following a low saturated fat diet;Patient knows appropriate portion size Height, Weight, and BMI Weight: 285 lb (129.3 kg) Height: 5' 2 (1.575 m) BMI: 52.11 Nutrition Follow-up Follow-up/Discharge: Patient stated her main goal is to lower her A1c . She stated her last Alc was around 8.2 -4 8.4. She plans on being more aware of carbs/portion sizes. She follows a heart healthy diet majority of the time. Other Risk Factors Other Risk Factor Assessment: Discharge HTN Risk Factor: Hypertension Pre Exercise BP: 132/78 Post Exercise BP: 136/78 Hypertension Plan Goals HTN Goals: Exercises regularly Goals Met HTN Goals Met: Follow low sodium diet;Take medication as prescribed HTN Interventions HTN Interventions: Therapist/patient discussion;Offer educational videos;Provide written material HTN Education Completed HTN Education Completed: Low sodium diet;Risk factor overview;Medication review;Low sodium class;Label reading class;Dining out class;Meal Planning class Tobacco Risk Factor: NA Risk Factor Follow-up Follow-up/Discharge: Pt has gained knowledge in this risk factor area to apply to herself. PSYCHOSOCIAL Psychosocial Assessment: Discharge [facility] NASRIN Q of L Summary Score: 19 ANA-D Score: 3 Psychosocial Risk Factor: Stress Psychosocial Plan Interventions Interventions: Offer educational videos and classes;Provide written material;Individual education and counseling Education Completed Education Completed: Relaxation/Coping Techniques;Effects of stress on body Goals Goals (Next 30 days): Practicing stress management skills Goals Met Goals Met: Identified Support system;Identify stressors Psychosocial Follow-up Follow-up/Discharge: Pt feels she is managing her personal stress better. Patient involved in Goal setting?: Yes. Pt has plans to continue with [facility] until the end of her school year.She will then transition into our Phase 3 Cardiac rehab program after that to establish a regular exercise routine. Signature: Date: Time: documented in this encounter Plan of Treatment Not on filedocumented as of this encounter Procedures Procedure Name Priority Date/Time Associated Diagnosis Comme nts GLUCOSE BY METER Routine 10/22/2017 3:04 PM Resul ts for this POCT CDT procedure are i n the results section. documented in this encounter Results Glucose by meter POCT (10/22/2017 3:04 PM CDT) athologist Signature GLUCOSE BY 192 mg/dL 10/22/2017 [facility] METER POCT 3:04 PM CDT HOSPITAL POCT RESULTS Comment: Reference [...] Location / / Volume Laterality Blood specimen 10/22/2017 3:04 PM 018 6:58 (specimen) CDT AM CDT Historical Provider LAB - ENTER/EDIT POCT Performing Organization Address City/State/ZIP Code Phon e Number [facility] POCT RESULTS [address] [place] [address] documented in this encounter Visit Diagnoses Diagnosis S/P TAVR (transcatheter aortic valve rep lacement) S/P coronary artery stent placement Postsurgical percutaneous transluminal c oronary angioplasty status documented in this encounter Care Teams Client Experience Specialist Relationship Specialty Start Date End Date Elyse Paredes MD PCP - General Family Practice 12/22/13 04/21/22 [address] [place] [address] documented as of this encounter
--- OUTSIDE RECORDS SUMMARY | 2022-07-02 13:41 | XMS_ITS | Encounter Summary ---
:1950 Author Organization [facility] Address [address] [place] [address]. [place] [address] Care Team Providers Name Role Phone Elyse Paredes MD Primary Care Provider Encounter Details Date Type Department Care Team Description 01/26/2018 Ambulatory - [facility] [address] [phone] Social History Tobacco Use Types Packs/Day Years Used Date Smoking Tobacco: Never Assessed Sex Assigned at Date Recorded Not on file documented as of this encounter Plan of Treatment Not on filedocumented as of this encounter Procedures Procedure Name Priority Date/Time Associated Diagnosis Comme nts LAB RESULT - HIM SCAN Routine 01/26/2018 documented in this encounter Results Lab Result - HIM Scan (01/26/2018) Specimen (Source) Anatomical Location Collection Method / Collectio n Time Received Time / Laterality Volume Narrative This result has an attachment that is no t available. Historical Provider NON-BEAKER LAB TESTING documented in this encounter Visit Diagnoses Not on filedocumented in this encounter Care Teams Laborer Prestressed Concrete Relationship Specialty Start Date End Date Elyse Paredes MD PCP - General Family Practice 12/22/13 04/21/22 [address] [place], [place] [id number] documented as of this encounter
--- OUTSIDE RECORDS SUMMARY | 2022-07-02 13:41 | XMS_ITS | Encounter Summary ---
:1950 Author Organization [place] Address [address] [place] [id number] Care Team Providers Name Role Phone Elyse Paredes MD Primary Care Provider Encounter Details Date Type Department Care Team Description 10/13/2017 [facility] S/P TAVR [address] (transcatheter aortic [place], [place] valve replace ment) [phone] Social History [...] - - Weight 130.6 kg (288 lb) 10/13/2017 3:00 PM CDT Height - - Body Mass Index 51.02 09/27/2017 10:33 AM ICU STAFF NURSE documented in this encounter Plan of Treatment Not on filedocumented as of this encounter Visit Diagnoses Diagnosis S/P TAVR (transcatheter aortic valve rep lacement) documented in this encounter Care Teams Field Sales Trainer Relationship Specialty Start Date End Date Elyse Paredes MD PCP - General Family Practice 12/22/13 04/21/22 [address] [place], [place] [id number] documented as of this encounter
--- OUTSIDE RECORDS SUMMARY | 2022-07-02 13:41 | XMS_ITS | Encounter Summary ---
:1950 Author Organization [facility] Address [address] [place] [address] Care Team Providers Name Role Phone Elyse Paredes MD Primary Care Provider Reason for Visit Reason Comments Follow Up Encounter Details Date Type Department Care Team Description 10/27/2017 Office Visit - [facility] Jun Salazar atrial fibrillation (H); [facility] Nicole Ng APRN Chronic di astolic congestive heart failure (H); [place] HYDE Essential hypertension; [address] [facility] DEDE on CPAP; [place], [place] [address] Paroxysmal atrial fibrillation (H); [address] [place], [place] jail use of drug [phone] [id number] Social History Tobacco Use Types Packs/Day Years [...] - - Weight 130.2 kg (287 lb) 10/27/2017 10:34 AM CDT Height 160 cm (5' 3) 10/27/2017 10:34 AM CDT Body Mass Index 50.84 10/27/2017 10:34 AM CDT documented in this encounter Progress Notes Nicole Salazar APRN SENIOR WEB ENGINEER - 10/27/2017 10:30 AM CDT [facility] Assessment/Plan: Diagnoses and all orders for this visit: Paroxysmal atrial fibrillation and then persistent atrial fibrillation. A. fib was noted post TAVR and failed cardioversion without antiarrhythmic. During loading of amiodarone converted to sinus rhythm on her own. She converted to sinus rhythm on September 24 and had some paroxysmal A. fib in the early week or 2 after that but then none since. Cardioversion was canceled. She is now on amiodarone 200 mg 1 tablet orally every day. I would continue this for at least 3 months. 6 week Amio labs done today. Since maintaining sinus rhythm she reports some improvement in energy level and a little less short of breath but not drastic improvement in either. Given TAVR procedure recently it is difficult for her to tell how symptomatic she is with A. fib. Unsure if she is going to be on amiodarone long-term or if will try to taper off. Recommended to see a bobcat operator to discuss plan She has a trip to [place] in April. I would not likely recommend weaning amiodarone until after she is back as risk of reoccurrence of atrial fibrillation. I will anamarychuy [place] amiodarone bereavement program coordinator order complete PFTs if she is still on amiodarone in March. To see Dr. Kang in January. She initially saw Dr. Quiles who referred her to Dr. Martinez for TAVR. She needs a noninvasive bobcat operator, so I recommended Dr. Kang. [id number] score of 5 and on warfarin. INR today 2.4. To continue current dose of 5 mg on Wednesday and Wednesday and 2-1/2 mg the other 5 of 7 days. Repeat INR in 3 weeks. She wants to get home INR monitor. To discuss with Dr. Paredes as usually needs primary physician approval. 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 Other than limited hours to schedule no otherrestrictions placed. Marci is going to move on to a cardiac rehab level 3 with evening hours at [facility]. - POCT INR - amiodarone (PACERONE) 200 MG tablet; Take 1 tablet (200 mg total) by mouth daily. Take 1 tab orally twice a day until October 01 and then decrease to 1 tab orally every day. Dispense: 90 tablet; Refill:3 - Discontinue: metoprolol succinate (TOPROL XL) 25 MG; Take 1 tablet (25 mg total) by mouth daily. Dispense: 30 tablet; Refill: 12 - Amiodarone (Cordarone??) - warfarin (COUMADIN) 5 MG tablet; Take 1 tab Mon and Fri and 1/2 tab the rest of the days. Dispense: 30 tablet; Refill: 0 Chronic diastolic congestive heart failure with no signs or symptoms of acute decompensated heart failure today. Recommended metoprolol succinate 25 mg 1 tab p.o. daily. Will discontinue metoprolol tartrate with variable dose per heart rate. To continue to check her pulse at least once a day to verifyrhythm. She has learned to distinguish atrial fib from sinus rhythm using a pulse tyra on her phone. Essential hypertension and well-controlled. DEDE on CPAP and using CPAP. jail use of drug - ALT - Thyroid Stimulating Hormone (TSH) Subjective: I had the opportunity to see Marci Diaz at the [facility]. Marci Diaz is a 67 y.o. female and here for EP follow-up regarding persistent atrial fibrillation . Marci Diaz has a known history of obstructive sleep apnea for which she wears CPAP nightly, coronary artery disease status post stent to the LAD in May 2017, type 2 diabetes, hypertension, and hyperlipidemia. ??She also has a history of severe aortic stenosis for which she underwent TAVR??on 07/06/2017 with subsequent improvement in symptoms until recurrence of A. Fib early on after cardioversion. Marci Diaz was newly diagnosed with atrial fibrillation on 07/22/2017, documented at cardiac rehab with ventricular rates between 110 and 130, associated with symptoms of dyspnea on exertion and fatigue. ??She was started on warfarin for stroke prophylaxis and once INRs were therapeutic for an appropriate amount of time, underwent cardioversion on 08/26/2017. ??She had underlying sinus bradycardia in the 50s on very low-dose metoprolol. She had early reversion back into atrial fib within days of her cardioversion. She was started on amiodarone 200 mg p.o. twice daily until October 01 and then decrease to to daily. She has not taken any metoprolol for the last several weeks. Occasionally her heart rate is 48 to low 50swhen she first gets up in the morning but then she is running heart rates in the 70s otherwise. Having occasional episodes of atrial fib that she can tell in initial week after conversion and then nonein the last 2 weeks. Her biggest limitation since Elly is that she continues to be short of breath with exertion. She is limited to walking less than a mile. She is working on building her endurance an d has completed 36 sessions of rehab. She is going to go on a self-pay program now. 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 See above for details. Problem List: Patient Active Problem List Diagnosis ??? HLD (hyperlipidemia) ??? CASTRO (dyspnea on exertion) ??? Coronary artery disease involving [place] coronary artery of [place] heart, angina presence unspecified ??? DEDE on CPAP ??? Type 2 diabetes mellitus without complication, with long-term current use of insulin ??? Essential hypertension ??? Calculus of kidney ??? Urinary tract stones ??? Chronic diastolic congestive heart failure ??? S/P TAVR (transcatheter aortic valve replacement) ??? Hyperglycemia ??? Persistent atrial fibrillation ??? Morbid obesity with BMI of 50.0-59.9, adult Medical History: Past Medical History: Diagnosis Date ??? Bicuspid aortic valve ??? COPD (chronic obstructive pulmonary disease) ??? Depression ??? Diabetes mellitus insulin ??? DJD (degenerative joint disease) ??? Dyspnea ??? Hyperlipidemia ??? Hypertension ??? Kidney stones ??? Morbid obesity ??? Nephrolithiasis ??? DEDE on CPAP ??? Severe aortic stenosis ??? Tooth abscess 2016 Surgical History: Past Surgical History: Procedure Laterality Date ??? CARDIAC CATHETERIZATION 05/12/2017 ??? CV CORONARY ANGIOGRAM N/A 05/12/2017 Procedure: Coronary Angiogram; Surgeon: Ankush Martinez MD; Location: [facility] Transportation Supervisor; Service: ??? CV TRANSFEMORAL TRANSCATHETER VALVE REPLACEMENT N/A 07/06/2017 Procedure: Transfemoral Transcatheter Aortic Valve Replacement; Surgeon: Ankush Martinez MD; Location: [facility] Transportation Supervisor; Service: ??? TOTAL KNEE ARTHROPLASTY Bilateral Social History: Social History Substance Use Topics ??? Smoking status: Never Smoker ??? Smokeless tobacco: Never Used ??? Alcohol use No Review of Systems: Review of Systems: General: WNL Eyes: WNL Ears/Nose/Throat: Nosebleeds Lungs: WNL Heart: Shortness of Breath with activity Stomach: WNL Bladder: WNL Muscle/Joints: WNL Skin: WNL Nervous System: WNL Mental Health: WNL Blood: Easy Bleeding, Easy Bruising Family History: Family History Problem Relation Age of Onset ??? Diabetes Father ??? Heart disease Father ??? Esophageal cancer Brother ??? Urolithiasis Neg Hx ??? Clotting disorder Neg Hx ??? Gout Neg Hx Allergies: Allergies Allergen Reactions ??? Lisinopril Cough ??? Metformin Nausea And Vomiting ??? Erythromycin Base Rash Medications: Current Outpatient Prescriptions Medication Sig Dispense Refill ??? amiodarone (PACERONE) 200 MG tablet Take 1 tablet (200 mg total) by mouth daily. Take 1 tab orally twice a day until October 01 and then decrease to 1 tab orally every day. 90 tablet 3 ??? BD INSULIN PEN NEEDLE [...] BY MOUTH EVERY DAY 90 tablet 3 ??? CRESTOR 10 mg tablet Take 10 mg by mouth daily. ??? insulin lispro (HUMALOG) 100 unit/mL injection Inject 6-10 Units under the skin 3 (three) times a day before meals. ??? LANTUS SOLOSTAR 100 unit/mL (3 mL) pen 30 Units 2 (two) times a day. ??? losartan (COZAAR) 50 MG tablet Take 50 mg by mouth daily. ??? sertraline (ZOLOFT) 100 MG tablet Take 50 mg by mouth daily. Patient takes 50mg daily ??? warfarin (COUMADIN) 5 MG tablet Take 1 tab Mon and Fri and 1/2 tab the rest of the days. 30 tablet 0 ??? metoprolol succinate (TOPROL-XL) 25 MG TAKE 1 TABLET(25 MG) BY MOUTH DAILY 30 tablet 0 No current facility-administered medications for this visit. Objective: Vital signs: BP 126/76 (Patient Site: Left Arm, Patient Position: Sitting, Cuff Size: Adult Large) Pulse 80 Resp 16 Ht 5' 3 (1.6 m) Wt (!) 287 lb (130.2 kg) BMI 50.84 kg/m2 Physical Exam: GENERAL APPEARANCE: Alert, cooperative and in no acute distress. HEENT: No scleral icterus. No Xanthelasma. Oral mucuos membranes pink and moist. NECK: JVP Nl. CHEST: clear to auscultation CARDIOVASCULAR: S1, S2 without clicks or rubs. Regular, regular with systolic murmur 2 of 6 best heard in upper sternal border. Radial and posterior tibial pulses are intact and symetric. EXTREMITIES: No cyanosis, clubbing or edema. Results personally reviewed: Results for orders placed during the hospital [...] no significant change. Results for orders placed during the hospital encounter of 07/06/17 Cardiac Catheterization [CATH01] 07/06/2017 Narrative Procedure: Transcatheter aortic valve replacement Indication: Severe symptomatic aortic stenosis with the patient felt to be an appropriate candidate for transcatheter aortic valve replacement after a thorough multidisciplinary approach, including a visit with two surgeons. Operators: Interventional Cardiology: Ankush Martinez MD; Chidi Barcenas MD CT Surgery: Alfonzo Steele MD Echocardiography: Van Mildred, MD Approach: Rt transfemoral Anesthesia: GA Procedure Details: Informed consent obtained before the patient was brought to the procedure room. Appropriate timeout was performed before the procedure was started. Access was obtained in the left femoral artery and vein using the modified Seldinger technique, and then in the right femoral artery under direct fluoroscopic visualization. The right femoral arteriotomy was then preclosed with two Perclose devices deployed at 90?? to each other. A right internal jugular catheter placed by anesthesia, was used to place a temporary pacemaker in the RV. A pigtail catheter was placed at the aortic annulus via the left femoral artery to determine the coplanar angle. After appropriate anticoagulation, the Pike E sheath was placed through the right femoral arteriotomy with the help of a stiff guidewire. The aortic valve was then crossed and a Safari 2 wire was placed at the LV apex. Balloon aortic valvuloplasty was then performed under rapid pacing. A 23mm (with 2cc extra) Rigo 3 valve was then successfully deployed in the aortic position under rapid pacing. Post deployment to the patient had good hemodynamics, with trace aortic insufficiency and a mean gradient of 7 mmHg. Relative aortic/venticular implant ratio was 80/20. The delivery system and sheath were then removed, with successful hemostasis of the arteriotomy by deployment of the previously placed Perclose sutures. The left femoral artery and venous sheaths were removed as well with successful hemostasis via the Angio-Seal device. Conclusions: 1. Severe symptomatic aortic stenosis status post successful transcatheter aortic valve replacement with a 23mm Rigo 3 valve, delivered via the right transfemoral approach. 2. Trace aortic insufficiency post deployment with a mean gradient of 7 mmHg. Postprocedure patient status: Patient planned to be extubated in the OR and then transferred to the ICU for ongoing management. Temporary pacemaker to be left in place overnight and removed in the next 24 hours based on clinical need. Ankush Martinez MD Results for orders placed or performed in visit on 09/27/17 ECG 12 lead with MUSE Result Value Ref Range SYSTOLIC BLOOD PRESSURE mmHg DIASTOLIC BLOOD PRESSURE mmHg VENTRICULAR RATE 62 BPM ATRIAL RATE 62 BPM P-R INTERVAL 208 ms QRS DURATION 96 ms Q-T INTERVAL 430 ms QTC CALCULATION (BEZET) 436 ms P [place] degrees R AXIS 5 degrees T AXIS 28 degrees MUSE DIAGNOSIS Sinus rhythm with Premature atrial complexes Otherwise normal ECG When compared with ECG of 08-SEP-2017 14:43, Premature atrial complexes are now Present Left bundle branch block is no longer Present Confirmed by WINDY PIERRE MD LOC:JN ([id number]) on 09/27/2017 4:52:27 PM TSH: No results found for: TSH BNP: Lab Results Component Value Date BNP 25 07/05/2017 BMP: Lab Results Component Value Date CREATININE 1.20 (H) 08/05/2017 BUN 23 (H) 08/05/2017 NA 139 08/05/2017 K 08/05/2017 Comment: Specimen hemolyzed, result invalid CL 105 08/05/2017 CO2 26 08/05/2017 This note has been dictated using voice recognition software. Any grammatical or context distortionsare unintentional and inherent to the software. TASHIA SALAZAR RN, [facility] [phone] documented in this encounter Plan of Treatment Not on filedocumented as of this encounter Procedures Procedure Name Priority Date/Time Associated Diagnosis Comme nts TSH Routine 10/27/2017 11:23 AM Results for this CDT procedure are i n the results section. AMIODARONE LEVEL Routine 10/27/2017 11:23 AM Resu lts for this CDT procedure are i n the results section. ALT Routine 10/27/2017 11:23 AM Results for this CDT procedure are i n the results section. INR POINT OF CARE Routine 10/27/2017 11:10 AM Res ults for this CDT procedure are i n the results section. documented in this encounter Results ALT (10/27/2017 11:23 AM CDT) P athologist Signature ALT 23 0 - 45 U/L 10/27/2017 [facility] 11:55 AM CDT [facility] Specimen Anatomical Collection Method / Collection Time Recei gil Time (Source) Location / Volume Laterality Blood specimen Venipuncture / 10/27/2017 11:23 018 (specimen) Unknown AM CDT 11:39 AM CDT Nicole Salazar COLOR ADVISER [facility] - BLOOD ORDERABLES Performing Organization Address City/State/ZIP Code Phon e [place] [address] [facility] [address] [place] [address] [facility] (ABNORMAL) Amiodarone level (10/27/2017 11:23 AM CDT) P athologist Signature Amiodarone 0.4 (L) mcg/mL 10/29/2017 [facility] 6:28 AM CDT LABORATORY Comment: REFERENCE VALUE------ 0.5 - 2.0 (Toxic >2.5) D-Dylmkxjv-Jwlohkgutx 0.3 mcg/mL 10/29/2017 6:2 8 AM CDT [facility] Comment: REFERENCE VALUE------ No therapeutic range established; activi ty and serum concentration are similar to parent drug . ADDITIONAL INFORMATIO N This test was developed and its performa nce characteristics determined by [facility] in a manner co nsistent with CLIA requirements. This test has not been phil ared or approved by the U.S. Food and Drug Administration. Test Performed by: [facility] [address] [place], [place] [address] Specimen Anatomical Collection Method / Collection Time Recei gil Time (Source) Location / Volume Laterality Blood specimen Venipuncture / 10/27/2017 11:23 018 2:53 (specimen) Unknown AM CDT PM CDT Nicole Salazar APRN SENIOR WEB ENGINEER LAB - BLOOD ORDERABLES Performing Organization Address City/State/ZIP Code Phon e Number [facility] [place] [address] [facility] MEDICAL LABORATORY [address] [place] [address] (ABNORMAL) TSH (10/27/2017 11:23 AM CDT) P athologist Signature TSH 6.26 (H) 0.30 - 5.00 10/27/2017 [facility] uIU/mL 12:17 PM CDT [facility] Specimen Anatomical Collection Method / Collection Time Recei gil Time (Source) Location / Volume Laterality Blood specimen Venipuncture / 10/27/2017 11:23 10/27/ 018 (specimen) Unknown AM CDT 11:39 AM CDT Nicole Salazar APRN SENIOR WEB ENGINEER LAB - BLOOD ORDERABLES Performing Organization Address City/[facility]/ZIP [facility] Phon e [place] [address] [address] [facility] (ABNORMAL) INR point of care (10/27/2017 11:10 AM CDT) athologist Signature POC INR 2.40 (A) 0.90 - 1.10 10/27/2017 HE[facility] CARE 11:[address] [facility] Comment: Tashia Salazar CNP to dose. Aidan angulo verified dosing and tablet size with patient. GIUSEPPE LLOYD Specimen (Source) Anatomical Collection Method Collection Time Re ceived Time Location / / Volume Laterality Blood specimen 10/27/2017 11:10 (specimen) AM CDT Nicole Salazar APRN, CNP LAB - BLOOD ORDERABLES Performing Organization Address City/[facility] Phon e Number HEART CARE [address] [address] HEART CARE [address] [address] documented in this encounter Visit Diagnoses Diagnosis Persistent atrial fibrillation (H) Atrial fibrillation Chronic diastolic congestive heart failu re (H) Chronic diastolic heart failure Essential hypertension Unspecified essential hypertension DEDE on CPAP Obstructive sleep apnea (adult) (pediatr ic) Paroxysmal atrial fibrillation (H) Atrial fibrillation jail use of drug Encounter for long-term (current) use of other medications documented in this encounter Care Teams Modern Greek Studies Professor Relationship Specialty Start Date End Date Elyse Paredes MD PCP - General Family Practice 12/22/13 04/21/22 [address] [place] [address] documented as of this encounter
--- OUTSIDE RECORDS SUMMARY | 2022-07-02 13:41 | XMS_ITS | Encounter Summary ---
:1950 Author Organization [facility] Address [address] [place] [address] Care Team Providers Name Role Phone Elyse Paredes MD Primary Care Provider Encounter Details Date Type Department Care Team Description 01/26/2018 Ambulatory - [facility] S/P TAVR (transcatheter aort ic valve replacement); [address] [place] [address] Social History Tobacco Use Types Packs/Day Years Used Date Smoking Tobacco: Never Assessed Sex Assigned at Date Recorded Not on file documented as of this encounter Progress Notes Alyce [place] Luís - 01/26/2018 12:00 PM CDT Cardiac Rehab Phase III SOC Date: 01/26/18 Diagnosis: Aortic stenosis Procedure: TAVR/ stent Date of Onset: TAVR 07/06/17 , STENT 05/2018 ICD/Pacemaker: Yes ECG History: SR,AFIB EF%:65 Past Medical History: Patient Active Problem List Diagnosis ??? HLD (hyperlipidemia) ??? CASTRO (dyspnea on exertion) ??? Coronary artery disease involving [place] coronary artery of [place] heart, angina presence unspecified ??? DEDE on CPAP ??? Type 2 diabetes mellitus without complication, with long-term current use of insulin (H) ??? Essential hypertension ??? Calculus of kidney ??? Urinary tract stones ??? Chronic diastolic congestive heart failure (H) ??? S/P TAVR (transcatheter aortic valve replacement) ??? Hyperglycemia ??? Persistent atrial fibrillation (H) ??? Morbid obesity with BMI of 50.0-59.9, adult (H) Precautions/ Physical Limitations: DM, deconditioning Oxygen: No Social History Living Accommodations: [facility] Steps: Yes- 14 steps upstairs Support people at home: lives alone, has 2 pet cats Marital Status: Family is not able to assist with cares Mandaen/Community involvement: yes Recreation/Hobbies: loom weaving, silk scarf dying, wood block printing Current Activity Level Mobility status: Cane (t times) Self Cares/ ADL's: independent Home management: independent Driving: yes Sleeping Pattern: good Appetite: good Pain-none Home exercise/Equipment: [employer] Psychosocial/ Emotional Health 1. In the past 12 months, have you been in a relationship where you have been abused physically, emotionally, sexually or financially? No District Associate Judge notified: NA 2. Who do you turn to for emotional support?: friend Louse and sister in law 3. Do you have cultural or spiritual needs? No 4. Have there been any major life changes in the past 12 months? Yes , loss of brother and mother inpast year., Medical status-Stent/TAVR Alyce [place] - 01/26/2018 12:00 PM CDT Cardiac Rehab Phase III Treatment Plan Risk Factors Inactivity, DM, Hyperlipidemia, HTN, Overweight Exercise Prescription THR: 20-30>RHR Frequency: 3x/week Duration: 45-55 min RPE: 11-14 Phase 3: Phase 3 Goal #1: Patient will maintain 2-4 met level for 45-55 minutes of continuous/interval exercise. Goal #2: Pt. will increase duration (1-2 hrs.) and speed 2-2.5 mph) walked to be ready for a trip to [place] this fall Phase 3 Plan: Adjust therapy according to patient tolerance, vital signs and symptoms. Assess functional status and recommend changes as needed. Primary MD: Dr.Denise Paredes Phone: [facility] [phone] documented in this encounter Plan of Treatment Not on filedocumented as of this encounter Visit Diagnoses Diagnosis S/P TAVR (transcatheter aortic valve rep lacement) S/P coronary artery stent placement Postsurgical percutaneous transluminal c oronary angioplasty status documented in this encounter Care Teams Program Instructor Relationship Specialty Start Date End Date Elyse Paredes MD PCP - General Family Practice 12/22/13 04/21/22 [address] [place] [address] documented as of this encounter
--- OUTSIDE RECORDS SUMMARY | 2022-07-02 13:41 | XMS_ITS | Encounter Summary ---
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 Heart [facility] therapy [address] [address] Social History Tobacco Use Types Packs/Day Years Used Date Smoking Tobacco: Never Assessed Sex Assigned at Date Recorded Not on file documented as of this encounter Plan of Treatment Not on filedocumented as of this encounter Procedures Procedure Name Priority Date/Time Associated Diagnosis Comme nts INR POINT OF CARE Routine 01/19/2018 11:35 AM Res ults for this CDT procedure are i n the results section. documented in this encounter Results (ABNORMAL) INR point of care (01/19/2018 11:35 AM CDT) P athologist Signature POC INR 2.60 (A) 0.90 - 1.10 01/19/2018 11:35 AM CDT Comment: Pt takes 2.5 mg ,Wed and 2.5mg the rest 12/06.No change in medication. Contact Pt for dosing instruction @ [phone] anytime. AI DRIFT MINER Specimen (Source) Anatomical Collection Method Collection Time Re ceived Time Location / / Volume Laterality Blood specimen 01/19/2018 11:35 (specimen) AM CDT Ankush Martinez MD LAB - BLOOD ORDERABLES documented in this encounter Visit Diagnoses Diagnosis prison current use of anticoagulant t herapy documented in this encounter Care Teams Customer Service Leader Relationship Specialty Start Date End Date Reggie, Elyse Armas MD PCP - General Family Practice 12/22/13 04/21/22 [address] [place] [address] documented as of this encounter
--- OUTSIDE RECORDS SUMMARY | 2022-07-02 13:41 | XMS_ITS | Encounter Summary ---
:1950 Author Organization [place] Address [address] [place] [address]. [place] [address] Care Team Providers Name Role Phone Elyse Paredes MD Primary Care Provider Encounter Details Date Type Department Care Team Description 10/28/2017 [facility] Carmen Olivo [facility] od [address] [place] [address] Social History Tobacco Use Types Packs/Day Years Used Date Smoking Tobacco: Never Assessed Sex Assigned at Date Recorded Not on file documented as of this encounter Plan of Treatment Not on filedocumented as of this encounter Visit Diagnoses Not on filedocumented in this encounter Care Teams Allopathic Doctor Relationship Specialty Start Date End Date Elyse Paredes MD PCP - General Family Practice 12/22/13 04/21/22 [address] [place], [place] [id number] documented as of this encounter
--- OUTSIDE RECORDS SUMMARY | 2022-07-02 13:41 | XMS_ITS | Encounter Summary ---
:1950 Author Organization [place] Address [address] [place] [address] Care Team Providers Name Role Phone Elyse Paredes MD Primary Care Provider Encounter Details Date Type Department Care Team Description 10/18/2017 Ambulatory - [facility] S/P TAVR [address] (transcatheter aortic [place], [place] valve replace ment) [address] Social History [...] - - Weight 128.8 kg (284 lb) 10/18/2017 3:00 PM CDT Height - - Body Mass Index 50.31 09/27/2017 10:33 AM OPTIMIZATION ENGINEER documented in this encounter Plan of Treatment Not on filedocumented as of this encounter Visit Diagnoses Diagnosis S/P TAVR (transcatheter aortic valve rep lacement) documented in this encounter Care Teams Security Shift Manager Relationship Specialty Start Date End Date Elsye Paredes MD PCP - General Family Practice 12/22/13 04/21/22 [address] [place], [place] [id number] documented as of this encounter
--- OUTSIDE RECORDS SUMMARY | 2022-07-02 13:41 | XMS_ITS | Encounter Summary ---
:1950 Author Organization [place] Address [address] [place] [address] Care Team Providers Name Role Phone Elyse Paredes MD Primary Care Provider Encounter Details Date Type Department Care Team Description 11/19/2017 Ambulatory - [facility] S/P TAVR [facility] (transcatheter aortic [address] valve replacement) [place] [address] Social History Tobacco Use Types Packs/Day Years Used Date Smoking Tobacco: Never Assessed Sex Assigned at Date Recorded Not on file documented as of this encounter Progress Notes Gabrielle Golden RN - 11/19/2017 3:30 PM CDT INR 2.3 INR stable. Discussed continuing management of dose of Warfarin and returning in one month .No changes to diet needed at this time. Continue moderate intake of Vitamin K and call if increase bruising or unexplained bleeding. Call with medication changes or upcoming procedures. documented in this encounter Plan of Treatment Not on filedocumented as of this encounter Procedures Procedure Name Priority Date/Time Associated Diagnosis Comme nts INR POINT OF CARE Routine 11/19/2017 Results fo r this procedure are in the resu lts section. documented in this encounter Results INR point of care (11/19/2017) P athologist Signature INR 2.3 Specimen (Source) Anatomical Location Collection Method / Collectio n Time Received Time / Laterality Volume Blood specimen 11/19/2017 (specimen) Ankush Martinez MD LAB - BLOOD ORDERABLES documented in this encounter Visit Diagnoses Diagnosis S/P TAVR (transcatheter aortic valve rep lacement) documented in this encounter Care Teams Hadoop Infrastructure Architect Relationship Specialty Start Date End Date Elyse Paredes MD PCP - General Family Practice 12/22/13 04/21/22 [address] [place] [address] documented as of this encounter
--- OUTSIDE RECORDS SUMMARY | 2022-07-02 13:41 | XMS_ITS | Encounter Summary ---
:1950 Author Organization [place] Address [address] [place] [address] Care Team Providers Name Role Phone Elyse Paredes MD Primary Care Provider Encounter Details Date Type Department Care Team Description 10/26/2017 Ambulatory - [facility] Heart [address] [address] Social History Tobacco Use Types Packs/Day Years Used Date Smoking Tobacco: Never Assessed Sex Assigned at Date Recorded Not on file documented as of this encounter Plan of Treatment Not on filedocumented as of this encounter Procedures Procedure Name Priority Date/Time Associated Diagnosis Comme nts LAB RESULT - HIM SCAN Routine 10/26/2017 documented in this encounter Results Lab Result - HIM Scan (10/26/2017) Specimen (Source) Anatomical Location Collection Method / Collectio n Time Received Time / Laterality Volume Narrative This result has an attachment that is no t available. Historical Provider NON-BEAKER LAB TESTING documented in this encounter Visit Diagnoses Not on filedocumented in this encounter Care Teams Applications Analyst Relationship Specialty Start Date End Date Elyse Paredes MD PCP - General Family Practice 12/22/13 04/21/22 [address] [place], [place] [id number] documented as of this encounter
--- OUTSIDE RECORDS SUMMARY | 2022-07-02 13:41 | XMS_ITS | Encounter Summary ---
:1950 Author Organization [place] Address [address] [place] [address] Care Team Providers Name Role Phone Elyse Paredes MD Primary Care Provider Encounter Details Date Type Department Care Team Description 01/19/2018 [facility] Gabrielle Golden S/P TAVR [facility] Dora RN (transcatheter [place] aortic valve [address] [facility] replacement) [place] [address] [place] [phone] Social History Tobacco Use Types Packs/Day Years Used Date Smoking Tobacco: Never Assessed Sex Assigned at Date Recorded Not on file documented as of this encounter Progress Notes Gabrielle Golden RN - 01/19/2018 12:51 PM CDT INR 2.6 Left VM message with return phone number for questions and concerns. [phone] INR stable. Discussed continuing management of dose of Warfarin and returning in one month . No changes to diet needed at this time. Continue moderate intake of Vitamin K and call if increase bruising or unexplained bleeding. Call with medication changes or upcoming procedures. documented in this encounter Plan of Treatment Not on filedocumented as of this encounter Visit Diagnoses Diagnosis S/P TAVR (transcatheter aortic valve rep lacement) documented in this encounter Care Teams Extension Specialist Relationship Specialty Start Date End Date Elyse Paredes MD PCP - General Family Practice 12/22/13 04/21/22 [address] [place] [address] documented as of this encounter
--- OUTSIDE RECORDS SUMMARY | 2022-07-02 13:41 | XMS_ITS | Encounter Summary ---
:1950 Author Organization [place] Address [address] [place] [address] Care Team Providers Name Role Phone Elyse Paredes MD Primary Care Provider Encounter Details Date Type Department Care Team Description 10/28/2017 Ambulatory - [facility] Carmen Olivo A-fib (H) Heart Clinic [facility] [address] [facility] [address] [place] [address] Social History Tobacco Use Types Packs/Day Years Used Date Smoking Tobacco: Never Assessed Sex Assigned at Date Recorded Not on file documented as of this encounter Plan of Treatment Not on filedocumented as of this encounter Visit Diagnoses Diagnosis A-fib (H) Atrial fibrillation documented in this encounter Care Teams Casket Trimmer Relationship Specialty Start Date End Date Elyse Paredes MD PCP - General Family Practice 12/22/13 04/21/22 [address] [place], [place] [id number] documented as of this encounter
--- OUTSIDE RECORDS SUMMARY | 2022-07-02 13:41 | XMS_ITS | Encounter Summary ---
:1950 Author Organization [facility] Address [address] [place] [address]. [place] [address] Care Team Providers Name Role Phone Elyse Paredes MD Primary Care Provider Encounter Details Date Type Department Care Team Description 12/22/2017 [facility] Gabrielle Golden S/P TAVR [facility] Heart Clinic Dora RN (transcatheter [place] aortic valve [address] [facility] replacement) [place] [address] [place] [address] Social History Tobacco Use Types Packs/Day Years Used Date Smoking Tobacco: Never Assessed Sex Assigned at Date Recorded Not on file documented as of this encounter Progress Notes Gabrielle Golden RN - 12/22/2017 3:40 PM CDT INR 2.7 INR stable. Discussed continuing management of dose of Warfarin and returning in one month .No changes to diet needed at this time. Continue moderate intake of Vitamin K and call if increase bruising or unexplained bleeding. Call with medication changes or upcoming procedures. Spoke with pt documented in this encounter Plan of Treatment Not on filedocumented as of this encounter Visit Diagnoses Diagnosis S/P TAVR (transcatheter aortic valve rep lacement) documented in this encounter Care Teams Can Cleaner Relationship Specialty Start Date End Date Elyse Paredes MD PCP - General Family Practice 12/22/13 04/21/22 [address] [place], [place] [id number] documented as of this encounter
--- OUTSIDE RECORDS SUMMARY | 2022-07-02 13:41 | XMS_ITS | Encounter Summary ---
:1950 Author Organization [place] Address [address] [place] [address] Care Team Providers Name Role Phone Elyse Paredes MD Primary Care Provider Reason for Visit Reason Comments Other Encounter Details Date Type Department Care Team Description 10/27/2017 Communication - [facility], Other [facility] Clinic [facility] Debby Ng APRN [address] [facility] [address] [address] [place] [address] Social History Tobacco Use Types Packs/Day Years Used Date Smoking Tobacco: Never Assessed Sex Assigned at Date Recorded Not on file documented as of this encounter Plan of Treatment Not on filedocumented as of this encounter Visit Diagnoses Diagnosis Persistent atrial fibrillation (H) Atrial fibrillation documented in this encounter Care Teams Sprinkler Helper Relationship Specialty Start Date End Date Elyse Paredes MD PCP - General Family Practice 12/22/13 04/21/22 [address] [place] [address] documented as of this encounter
--- OUTSIDE RECORDS SUMMARY | 2022-07-02 13:41 | XMS_ITS | Encounter Summary ---
:1950 Author Organization [place] Address [address] [place] [address] Care Team Providers Name Role Phone Elyse Paredes MD Primary Care Provider Reason for Visit Reason Comments Other TSH RESULTS FOR AMIODARONE Encounter Details Date Type Department Care Team Description 10/28/2017 Communication - [facility] Tarah Olivo Other (TSH RESULTS [facility] Heart [facility] FOR AMIODARONE) [address] [place] [address] Social History Tobacco Use Types Packs/Day Years Used Date Smoking Tobacco: Never Assessed Sex Assigned at Date Recorded Not on file documented as of this encounter Plan of Treatment Not on filedocumented as of this encounter Visit Diagnoses Not on filedocumented in this encounter Care Teams Public Health Informatician Relationship Specialty Start Date End Date Elyse Paredes MD PCP - General Family Practice 12/22/13 04/21/22 [address] [place] [address] documented as of this encounter
--- OUTSIDE RECORDS SUMMARY | 2022-07-02 13:41 | XMS_ITS | Encounter Summary ---
:1950 Author Organization [place] Address [address] [place] [address] Care Team Providers Name Role Phone Elyse Paredes MD Primary Care Provider Encounter Details Date Type Department Care Team Description 12/22/2017 Ambulatory - [facility] Long-term (current) use of anticoagulants; [facility] Heart [facility] Debby l A-fib (H) [address] [address] Social History Tobacco Use Types Packs/Day Years Used Date Smoking Tobacco: Never Assessed Sex Assigned at Date Recorded Not on file documented as of this encounter Plan of Treatment Not on filedocumented as of this encounter Procedures Procedure Name Priority Date/Time Associated Diagnosis Comme nts INR POINT OF CARE Routine 12/22/2017 2:40 PM Resu lts for this CDT procedure are i n the results section. documented in this encounter Results (ABNORMAL) INR point of care (12/22/2017 2:40 PM CDT) P athologist Signature POC INR 2.70 (A) 0.90 - 1.10 12/22/2017 HEART CARE 2:48 PM CDT Comment: Verified tablet size 5 mg takin g 5 mg on M,F and 2.5 mg all other days. No changes, no procedures, no missed doses. to contact patient. Please call to dose. GIUSEPPE LLOYD Specimen (Source) Anatomical Collection Method Collection Time Re ceived Time Location / / Volume Laterality Blood specimen 12/22/2017 2:40 PM (specimen) CDT Nicole Salazar GREY GOODS TESTER SHIPPING/RECEIVING CLERK LAB - BLOOD ORDERABLES Performing Organization Address City/State/ZIP Code Phon e Number HEART CARE [address] [place], [place] [address] [facility] [address] [place], [place] [address] documented in this encounter Visit Diagnoses Diagnosis Long-term (current) use of anticoagulant s Encounter for long-term (current) use of anticoagulants A-fib (H) Atrial fibrillation documented in this encounter Care Teams Professional Architect Relationship Specialty Start Date End Date Elyse Paredes MD PCP - General Family Practice 12/22/13 04/21/22 [address] [place] [address] documented as of this encounter
--- OUTSIDE RECORDS SUMMARY | 2022-07-02 13:41 | XMS_ITS | Encounter Summary ---
:1950 Author Organization [facility] Address [address] [place] [address]. [place] [address] Care Team Providers Name Role Phone Dagmar Kang MD Unavailable Elyse Paredes MD Primary Care Provider Encounter Details Date Type Department Care Team Description 10/26/2017 Records - [facility] CONVERSION Provider, Karthik raya Social History Tobacco Use Types Packs/Day Years Used Date Smoking Tobacco: Never Assessed Sex Assigned at Date Recorded Not on file documented as of this encounter Plan of Treatment Not on filedocumented as of this encounter Visit Diagnoses Not on filedocumented in this encounter Care Teams Reconnaissance Man Relationship Specialty Start Date End Date Elyse Paredes MD PCP - General Family Practice 12/22/13 04/21/22 [address] [place] [address] Dagmar Kang MD Assigned Heart and 02/14/21 02/27/22 [address] [facility] [address], Vascular Provider [address] [place] [address] documented as of this encounter
--- OUTSIDE RECORDS SUMMARY | 2022-07-02 13:41 | XMS_ITS | Encounter Summary ---
:1950 Author Organization [place] Address [address] [place] [address] Care Team Providers Name Role Phone Elyse Paredes MD Primary Care Provider Encounter Details Date Type Department Care Team Description 01/26/2018 Ambulatory - [facility] Elyse Paredes MD [address] [place] [address] [facility], Historical (transcatheter [address] valve [address] replacement) [place] [phone] Social History Tobacco Use Types Packs/Day Years Used Date Smoking Tobacco: Never Assessed Sex Assigned at Date Recorded Not on file documented as of this encounter Plan of Treatment Not on filedocumented as of this encounter Visit Diagnoses Diagnosis S/P TAVR (transcatheter aortic valve rep lacement) documented in this encounter Care Teams [place] Supervisor Relationship Specialty Start Date End Date Elyse Paredes MD PCP - General Family Practice 12/22/13 04/21/22 [address] [place] [address] documented as of this encounter
--- OUTSIDE RECORDS SUMMARY | 2022-07-02 13:42 | XMS_ITS | Encounter Summary ---
:1950 Author Organization [place] Address [address] [place] [address] Care Team Providers Name Role Phone Elyse Paredes MD Primary Care Provider Encounter Details Date Type Department Care Team Description 09/08/2017 Ambulatory - [facility] S/P TAVR [address] (transcatheter aortic [place], [place] valve replace ment) [address] Social History [...] - - Weight 129.3 kg (285 lb) 09/08/2017 3:00 PM TRAFFIC CONTROL FLAGGER Height - - Body Mass Index 50.49 09/01/2017 2:05 PM TRAFFIC CONTROL FLAGGER documented in this encounter Plan of Treatment Not on filedocumented as of this encounter Visit Diagnoses Diagnosis S/P TAVR (transcatheter aortic valve rep lacement) documented in this encounter Care Teams Fuels Engineer Relationship Specialty Start Date End Date Elyse Paredes MD PCP - General Family Practice 12/22/13 04/21/22 [address] [place], [place] [phone] documented as of this encounter
--- OUTSIDE RECORDS SUMMARY | 2022-07-02 13:42 | XMS_ITS | Encounter Summary ---
:1950 Author Organization [place] Address [address] [place] [address] Care Team Providers Name Role Phone Elyse Paredes MD Primary Care Provider Encounter Details Date Type Department Care Team Description 10/08/2017 Ambulatory - [facility] S/P TAVR [address] (transcatheter aortic [place], [place] valve replace ment) [address] Social History [...] - Inhaled Oxygen Concentration - - Weight 132 kg (291 lb) 10/08/2017 3:00 PM EXPERIENCE DESIGNER Height - - Body Mass Index 51.55 09/27/2017 10:33 AM EXPERIENCE DESIGNER documented in this encounter Plan of Treatment Not on filedocumented as of this encounter Visit Diagnoses Diagnosis S/P TAVR (transcatheter aortic valve rep lacement) documented in this encounter Care Teams Hammersmith Helper Relationship Specialty Start Date End Date Elyse Paredes MD PCP - General Family Practice 12/22/13 04/21/22 [address] [place], [place] [id number] documented as of this encounter
--- OUTSIDE RECORDS SUMMARY | 2022-07-02 13:42 | XMS_ITS | Encounter Summary ---
:1950 Author Organization [place] Address [address] [place] [address] Care Team Providers Name Role Phone Elyse Paredes MD Primary Care Provider Encounter Details Date Type Department Care Team Description 09/02/2017 [facility] Gabrielle Golden S/P TAVR [facility] PAYTON John (transcatheter [place] aortic valve [address] [facility] replacement) [place] [address] [place] [address] Social History Tobacco Use Types Packs/Day Years Used Date Smoking Tobacco: Never Assessed Sex Assigned at Date Recorded Not on file documented as of this encounter Progress Notes Gabrielle Golden RN - 09/02/2017 7:32 AM CST INR 2.2 dosed by David Kirk PROGRESSIVE CARE NURSE will continue on current dose. Continue current management dosing of Warfarin. Continue diet of moderate Vitamin K intake. Discussed with pt the need to call with questions or concerns or any change in medication especially herbal medication or OTC. Call with increased bleeding or bruising or any upcoming procedures. EDO WORKER documented in this encounter Plan of Treatment Not on filedocumented as of this encounter Visit Diagnoses Diagnosis S/P TAVR (transcatheter aortic valve rep lacement) documented in this encounter Care Teams Drop Press Hand Relationship Specialty Start Date End Date Elyse Paredes MD PCP - General Family Practice 12/22/13 04/21/22 [address] [place] [address] documented as of this encounter
--- OUTSIDE RECORDS SUMMARY | 2022-07-02 13:42 | XMS_ITS | Encounter Summary ---
:1950 Author Organization [place] Address [address] [place] [address] Care Team Providers Name Role Phone Elyse Paredes MD Primary Care Provider Encounter Details Date Type Department Care Team Description 09/27/2017 Ambulatory - [facility] Brenda Golden, A-fib (H) Heart Clinic St. Debby raya RN [address] [address] Social History Tobacco Use Types Packs/Day Years Used Date Smoking Tobacco: Never Assessed Sex Assigned at Date Recorded Not on file documented as of this encounter Plan of Treatment Not on filedocumented as of this encounter Visit Diagnoses Diagnosis A-fib (H) Atrial fibrillation documented in this encounter Care Teams Line Tender Flakeboard Relationship Specialty Start Date End Date Elyse Paredes MD PCP - General Family Practice 12/22/13 04/21/22 [address] [place], [place] [id number] documented as of this encounter
--- OUTSIDE RECORDS SUMMARY | 2022-07-02 13:42 | XMS_ITS | Encounter Summary ---
:1950 Author Organization [place] Address [address] [place] [address] Care Team Providers Name Role Phone Elyse Paredes MD Primary Care Provider Encounter Details Date Type Department Care Team Description 09/07/2017 [facility] ([address] [place] [address] Social History Tobacco Use Types Packs/Day Years Used Date Smoking Tobacco: Never Assessed Sex Assigned at Date Recorded Not on file documented as of this encounter Plan of Treatment Not on filedocumented as of this encounter Visit Diagnoses Diagnosis Atrial fibrillation (H) Atrial fibrillation documented in this encounter Care Teams Legal Records Manager Relationship Specialty Start Date End Date Elyse Paredes MD PCP - General Family Practice 12/22/13 04/21/22 [address] [place], [place] [id number] documented as of this encounter
--- OUTSIDE RECORDS SUMMARY | 2022-07-02 13:42 | XMS_ITS | Encounter Summary ---
:1950 Author Organization [place] Address [address] [place] [address] Care Team Providers Name Role Phone Elyse Paredes MD Primary Care Provider Encounter Details Date Type Department Care Team Description 09/06/2017 Ambulatory - [facility] S/P TAVR [facility] Debby dorota (transcatheter aortic [address] valve replacement) [place] [address] Social History Tobacco Use Types Packs/Day Years Used Date Smoking Tobacco: Never Assessed Sex Assigned at Date Recorded Not on file documented as of this encounter Progress Notes Gabrielle Golden RN - 09/06/2017 2:30 PM CST INR 2.4 Continue current management dosing of Warfarin. Continue diet of moderate Vitamin K intake. Discussed with pt the need to call with questions or concerns or any change in medication especially herbal medication or OTC. Call with increased bleeding or bruising or any upcoming procedures. ENTRY REPRESENTATIVE documented in this encounter Plan of Treatment Not on filedocumented as of this encounter Procedures Procedure Name Priority Date/Time Associated Diagnosis Comme nts INR POINT OF CARE Routine 09/06/2017 Results fo r this procedure are in the resu lts section. documented in this encounter Results INR point of care (09/06/2017) P athologist Signature INR 2.4 Specimen (Source) Anatomical Location Collection Method / Collectio n Time Received Time / Laterality Volume Blood specimen 09/06/2017 (specimen) Ankush Martinez MD LAB - BLOOD ORDERABLES documented in this encounter Visit Diagnoses Diagnosis S/P TAVR (transcatheter aortic valve rep lacement) documented in this encounter Care Teams Promotions Producer Relationship Specialty Start Date End Date Elyse Paredes MD PCP - General Family Practice 12/22/13 04/21/22 [address] [place] [address] documented as of this encounter
--- OUTSIDE RECORDS SUMMARY | 2022-07-02 13:42 | XMS_ITS | Encounter Summary ---
:1950 Author Organization [facility] Address [address] [place] [address] Care Team Providers Name Role Phone Elyse Paredes MD Primary Care Provider Encounter Details Date Type Department Care Team Description 10/01/2017 Ambulatory - [facility] S/P coronary artery [facility] [address] [place] [address] Social History Tobacco Use Types Packs/Day Years Used Date Smoking Tobacco: Never Assessed Sex Assigned at Date Recorded Not on file documented as of this encounter Last Filed Vital Signs Vital Sign Reading Time Taken Comments Blood Pressure - - Pulse - - Temperature - - Respiratory Rate - - Oxygen Saturation - - Inhaled Oxygen Concentration - - Weight 131.1 kg (289 lb) 10/01/2017 3:00 PM RETAIL PHARMACY TECHNICIAN Height - - Body Mass Index 51.19 09/27/2017 10:33 AM RETAIL PHARMACY TECHNICIAN documented in this encounter Plan of Treatment Not on filedocumented as of this encounter Visit Diagnoses Diagnosis S/P coronary artery stent placement Postsurgical percutaneous transluminal c oronary angioplasty status documented in this encounter Care Teams Licensing Coordinator Relationship Specialty Start Date End Date Elyse Paredes MD PCP - General Family Practice 12/22/13 04/21/22 [address] [place], [place] [id number] documented as of this encounter
--- OUTSIDE RECORDS SUMMARY | 2022-07-02 13:42 | XMS_ITS | Encounter Summary ---
:1950 Author Organization [facility] Address [address] [place] [address] Care Team Providers Name Role Phone Elyse Paredes MD Primary Care Provider Encounter Details Date Type Department Care Team Description 09/06/2017 Ambulatory - [facility] S/P TAVR [address] (transcatheter aortic [place], [place] valve replace ment) [id number] Social History [...] - - Weight 128.8 kg (284 lb) 09/06/2017 3:00 PM PROGRAMMING INTERNSHIP Height - - Body Mass Index 50.31 09/01/2017 2:05 PM PROGRAMMING INTERNSHIP documented in this encounter Plan of Treatment Not on filedocumented as of this encounter Visit Diagnoses Diagnosis S/P TAVR (transcatheter aortic valve rep lacement) documented in this encounter Care Teams Senior Lead Developer Relationship Specialty Start Date End Date Elyse Paredes MD PCP - General Family Practice 12/22/13 04/21/22 [address] [place], [place] [id number] documented as of this encounter
--- OUTSIDE RECORDS SUMMARY | 2022-07-02 13:42 | XMS_ITS | Encounter Summary ---
:1950 Author Organization [facility] Address [address] [place] [address] Care Team Providers Name Role Phone Elyse Paredes MD Primary Care Provider Encounter Details Date Type Department Care Team Description 09/20/2017 [facility] S/P TAVR [address] (transcatheter aortic [place], [place] valve replace ment) [phone] Social History [...] - - Weight 129.3 kg (285 lb) 09/20/2017 3:00 PM ALTERATION MANAGER Height - - Body Mass Index 50.49 09/17/2017 8:23 AM ALTERATION MANAGER documented in this encounter Plan of Treatment Not on filedocumented as of this encounter Visit Diagnoses Diagnosis S/P TAVR (transcatheter aortic valve rep lacement) documented in this encounter Care Teams Director Of Application Development Relationship Specialty Start Date End Date Elyse Paredes MD PCP - General Family Practice 12/22/13 04/21/22 [address] [place], [place] [phone] documented as of this encounter
--- OUTSIDE RECORDS SUMMARY | 2022-07-02 13:42 | XMS_ITS | Encounter Summary ---
:1950 Author Organization [facility] Address [address] [place] [address] Care Team Providers Name Role Phone Elyse Paredes MD Primary Care Provider Encounter Details Date Type Department Care Team Description 09/27/2017 Ambulatory - [facility] S/P TAVR [facility] dorota (transcatheter aortic [address] valve replacement) [place] [address] Social History Tobacco Use Types Packs/Day Years Used Date Smoking Tobacco: Never Assessed Sex Assigned at Date Recorded Not on file documented as of this encounter Progress Notes Gabrielle Golden RN - 09/27/2017 2:30 PM CST INR 3.4 will decrease dose to 5 mg Wednesday and 2.5 mg all other days. Retest in 2 weeks. After talking with pt [...] any up coming procedures. Cautioned about using Herbalmedication. BOX OPERATOR documented in this encounter Plan of Treatment Not on filedocumented as of this encounter Procedures Procedure Name Priority Date/Time Associated Diagnosis Comme nts INR POINT OF CARE Routine 09/27/2017 Results fo r this procedure are in the resu lts section. documented in this encounter Results INR point of care (09/27/2017) P athologist Signature INR 3.4 Specimen (Source) Anatomical Location Collection Method / Collectio n Time Received Time / Laterality Volume Blood specimen 09/27/2017 (specimen) Ruby Kirkjosé antonio MOYA BAGGAGEMAN LAB - BLOOD ORDERABLES documented in this encounter Visit Diagnoses Diagnosis S/P TAVR (transcatheter aortic valve rep lacement) documented in this encounter Care Teams Cleaner Greaser Relationship Specialty Start Date End Date Elyse Paredes MD PCP - General Family Practice 12/22/13 04/21/22 [address] [place] [address] documented as of this encounter
--- OUTSIDE RECORDS SUMMARY | 2022-07-02 13:42 | XMS_ITS | Encounter Summary ---
:1950 Author Organization [facility] Address [address] [place] [address] Care Team Providers Name Role Phone Elyse Paredes MD Primary Care Provider Reason for Visit Reason Comments Follow Up Encounter Details Date Type Department Care Team Description 09/17/2017 Office Visit - [facility] Jun Salazar nt atrial fibrillation (H); [facility] Nicole Ng APRN Essential hype rtension; [place] BARREL HANDLER Chronic diastolic congestive heart failu re (H); [address] [facility] [address] [facility] S/P TAVR (tra nscatheter aortic valve replacement) [place] [address] [place] [address] [phone] Social History Tobacco Use Types Packs/Day Years Used Date Smoking Tobacco: Never Assessed Sex Assigned at Date Recorded Not on file documented as of this encounter Last Filed Vital Signs Vital Sign Reading Time Taken Comments Blood Pressure - - Pulse - - Temperature - - Respiratory Rate - - Oxygen Saturation - - Inhaled Oxygen Concentration - - Weight 129.6 kg (285 lb 12.8 oz) 09/17/2017 8:23 AM BUSINESS PLANNER shoes on Height 160 cm (5' 3) 09/17/2017 8:23 AM BUSINESS PLANNER shoes on Body Mass Index 50.63 09/17/2017 8:23 AM BUSINESS PLANNER documented in this encounter Progress Notes Nicole Salazar APRN BARREL HANDLER - 09/17/2017 8:30 AM CST [facility] Arrhythmia Clinic Assessment/Plan: Diagnoses and all orders for this visit: Persistent atrial fibrillation with early reversion back into A. fib likely due to inadequate loading of amiodarone. I did not check a level today based on patient is a good historian. To increase amiodarone to 200 mg 1 tab twice daily until October 01 and then decrease to 1 tablet orally every day. To do pulse oximetry reading before morning and evening pills and metoprolol dose to be adjusted according to pulse. If pulse 80 or higher to take 50 mg of metoprolol. If pulse less than 80 but greater than55 to take 25 mg of metoprolol. If pulse 55 or less to take no metoprolol. 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 I recommend she keep follow-up with Ruby Kirk NP as scheduled on September 27. I think she will likely convert with increasing amiodarone dose. To follow normal INR monitoring now. Will cancel INR for next week and to have INR on September 27 as planned with clinic visit. INRs have been therapeutic. Symptomatic with atrial fib. Discussed likely will be on amiodarone for a while. Unsure how much metoprolol she will tolerate if any. Will be on long-term anticoagulation. [id number] score of 5. Been stable on warfarin. Shewould eventually like to switch to a novel agent if possible. - amiodarone (PACERONE) 200 MG tablet; Take 1 tab orally twice a day until October 01 and then decreaseto 1 tab orally every day. Dispense: 110 tablet; Refill: 3 - metoprolol tartrate (LOPRESSOR) 50 MG tablet; Adjust dose per pulse twice a day. If pulse 80 or higher , take 1 tab. If pulse greater than 55 and less than 80, take 1/2 tab and if pulse 55 or less, take no metoprolol. Dispense: 180 tablet; Refill: 1 Essential hypertension and well-controlled. Chronic diastolic congestive heart failure and no signs or symptoms of heart failure today. S/P TAVR (transcatheter aortic valve replacement) and had significant clinical improvement related to TAVR. Questioning A. fib due to underlying valvular disease and severity may have been triggered with TAVR placement. Other orders - insulin lispro (HUMALOG) 100 unit/mL injection; Inject 6-10 Units under the skin 3 (three) times aday before meals. 40 minutes were spent in [id number] counseling regarding above diagnoses and options for treatment. Subjective: I had the opportunity to see Marci Diaz at the [facility]. Marci Diaz is a 67 y.o. female and here for urgent EP appointment as has gone from sinus rhythm back into likely persistent atrial fibrillation.. Marci Diaz was newly diagnosed with atrial fibrillation on 07/22/2017, documented at cardiac rehab with ventricular rates between 110 and 130, associated with symptoms of dyspnea on exertion and fatigue. She was started on warfarin for stroke prophylaxis and once INRs were therapeutic for an appropriate amount of time, underwent cardioversion on 08/26/2017. She had underlying sinus bradycardia in the 50s on very low-dose metoprolol. She has a history of obstructive sleep apnea for which she wears CPAP nightly, coronary artery disease status post stent to the LAD in May2017, type 2 diabetes, hypertension, and hyperlipidemia. She also has a history of severe aortic stenosis for which she underwent TAVR on 07/06/2017 with subsequent improvement in symptoms until recurrence of A. Fib early on after cardioversion. Marci was then started on amiodarone 200 mg twice daily for 4 weeks ordered. Marci tells me that she had not taken amiodarone twice a day for more than 2 weeks and thinks it may have been a little bit less than that when she developed bradycardia when she conv erted to sinus rhythm. She is doing cardiac rehab so I have documentation of her being in A. fib on August 30 and September 15. She was in sinus rhythm on September 06, , and . She tellsme that she is in atrial fib all the time now since 's Day. She saw her heart rates progressively increase in sinus rhythm with decrease in amiodarone to once a day. Her metoprolol dose was also decreased by 50%. She is currently taking metoprolol tartrate 50 mg twice daily with reoccurrence of atrial fib and will. She has a pulse oximetry. 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 She is more fatigued and short of breath with exertion and not sure she can go back to school if she is in A. Fib. She is back to being short of breath with walking anything more than 300- 400 feet. She denies peripheral edema or PND. She is pleasant. She has poor control of her diabetes and they want to switch her medications around and encouraged her to follow-up they are to pursue that. Problem List: Patient Active Problem List Diagnosis ??? HLD (hyperlipidemia) ??? CASTRO (dyspnea on exertion) ??? Coronary artery disease involving white earth coronary artery of white earth heart, angina presence unspecified ??? DEDE on [...] Coronary Angiogram; Surgeon: Ankush Martinez MD; Location: [facility] Associate Drafter; Service: ??? CV TRANSFEMORAL TRANSCATHETER VALVE REPLACEMENT N/A 07/06/2017 Procedure: Transfemoral Transcatheter Aortic Valve Replacement; Surgeon: Ankush Martinez MD; Location: [facility] Associate Drafter; Service: ??? TOTAL KNEE ARTHROPLASTY Bilateral Social History: Social History Substance Use Topics ??? Smoking status: Never Smoker ??? Smokeless tobacco: Never Used ??? Alcohol use No Review of Systems: Review of Systems: General: WNL Eyes: WNL Ears/Nose/Throat: WNL Lungs: WNL Heart: Shortness of Breath with activity, Irregular Heartbeat Stomach: WNL Bladder: WNL Muscle/Joints: WNL Skin: WNL Nervous System: WNL Mental Health: WNL Blood: WNL Family History: Family History Problem Relation Age [...] 200 MG tablet Take 1 tab orally twice a day until October 01 and then decrease to 1 tab orally every day. 110 tablet 3 ??? BD INSULIN PEN NEEDLE [...] Take 50 mg by mouth daily. ??? metoprolol tartrate (LOPRESSOR) 50 MG tablet Adjust dose per pulse twice a day. If pulse 80 or higher , take 1 tab. If pulse greater than 55 and less than 80, take 1/2 tab and if pulse 55 or less, take no metoprolol. 180 tablet 1 ??? sertraline (ZOLOFT) 100 MG tablet Take 50 mg by mouth daily. Patient takes 50mg daily ??? warfarin (COUMADIN) 5 MG tablet TAKE 1 TABLET(5 MG) BY MOUTH DAILY. ADJUST DOSE BASED ON INR RESULTS DIRECTED 30 tablet 0 No current facility-administered medications for this visit. Objective: Vital signs: BP 120/70 (Patient Site: Left Arm, Patient Position: Sitting, Cuff Size: Adult Large) Pulse 100 Resp 16 Ht 5' 3 (1.6 m) Comment: shoes on Wt (!) 285 lb 12.8 oz (129.6 kg) Comment: shoes on BMI 50.63 kg/m2 Physical Exam: GENERAL APPEARANCE: Alert, cooperative and in no acute distress. HEENT: No scleral icterus. No Xanthelasma. Oral mucuos membranes pink and moist. NECK: JVP Nl. CHEST: clear to auscultation CARDIOVASCULAR: S1, S2 without murmur ,clicks or rubs. Irregular, irregular. Radial and posterior tibial pulses are intact [...] 07/06/2017 Narrative Procedure: Transcatheter aortic valve replacement Conclusions: 1. Severe symptomatic aortic stenosis status post successful transcatheter aortic valve replacement with a 23mm Rigo 3 valve, delivered via the right transfemoral approach. 2. Trace aortic insufficiency post deployment with a mean gradient of 7 mmHg. Results for orders placed or performed during the hospital encounter of 09/08/17 ECG 12 lead Result Value Ref Range SYSTOLIC BLOOD PRESSURE mmHg DIASTOLIC BLOOD PRESSURE mmHg VENTRICULAR RATE 57 BPM ATRIAL RATE 57 BPM P-R INTERVAL 205 ms QRS DURATION 146 ms Q-T INTERVAL 454 ms QTC CALCULATION (BEZET) 441 ms P [place] 15 degrees R AXIS 30 degrees T AXIS 4 degrees MUSE DIAGNOSIS Sinus bradycardia Left bundle branch block Abnormal ECG When compared with ECG of 26-AUG-2017 14:20, Left bundle branch block is now Present Confirmed by SAMANTHA ROCKWELL MD LOC:JN ([id number]) on 09/08/2017 4:16:01 PM TSH: No results found for: TSH [...] inherent to the software. TASHIA SALAZAR RN, [facility] [phone] NESS PLANNER documented in this encounter Plan of Treatment Not on filedocumented as of this encounter Visit Diagnoses Diagnosis Persistent atrial fibrillation (H) Atrial fibrillation Essential hypertension Unspecified essential hypertension Chronic diastolic congestive heart failu re (H) Chronic diastolic heart failure S/P TAVR (transcatheter aortic valve rep lacement) documented in this encounter Care Teams Plant Biology Professor Relationship Specialty Start Date End Date Elyse Paredes MD PCP - General Family Practice 12/22/13 04/21/22 [address] [place] [address] documented as of this encounter
--- OUTSIDE RECORDS SUMMARY | 2022-07-02 13:42 | XMS_ITS | Encounter Summary ---
:1950 Author Organization [facility] Address [address] [place] [address] Care Team Providers Name Role Phone Elyse Paredes MD Primary Care Provider Encounter Details Date Type Department Care Team Description 09/02/2017 Ambulatory - [facility] Tarah Olivo use of [facility] [address] [facility] [address] [place] [phone] Social History Tobacco Use Types Packs/Day Years Used Date Smoking Tobacco: Never Assessed Sex Assigned at Date Recorded Not on file documented as of this encounter Plan of Treatment Not on filedocumented as of this encounter Visit Diagnoses Diagnosis extermination supervisor use of drug Encounter for long-term (current) use of other medications documented in this encounter Care Teams Electronic Components Assembler Relationship Specialty Start Date End Date Elyse Paredes MD PCP - General Family Practice 12/22/13 04/21/22 [address] [place], [place] [phone] documented as of this encounter
--- OUTSIDE RECORDS SUMMARY | 2022-07-02 13:42 | XMS_ITS | Encounter Summary ---
:1950 Author Organization [facility] Address [address] [place] [address] Care Team Providers Name Role Phone Elyse Paredes MD Primary Care Provider Reason for Visit Reason Comments Atrial Fib Encounter Details Date Type Department Care Team Description 09/15/2017 Communication - [facility] Tarah Olivo Atr ial Fib [address] [place] [address] Social History Tobacco Use Types Packs/Day Years Used Date Smoking Tobacco: Never Assessed Sex Assigned at Date Recorded Not on file documented as of this encounter Plan of Treatment Not on filedocumented as of this encounter Visit Diagnoses Not on filedocumented in this encounter Care Teams Cleaning Laborer Relationship Specialty Start Date End Date Elyse Paredes MD PCP - General Family Practice 12/22/13 04/21/22 [address] [place], [place] [phone] documented as of this encounter
--- OUTSIDE RECORDS SUMMARY | 2022-07-02 13:42 | XMS_ITS | Encounter Summary ---
:1950 Author Organization [facility] Address [address] [place] [address] Care Team Providers Name Role Phone Elyse Paredes MD Primary Care Provider Encounter Details Date Type Department Care Team Description 09/27/2017 Ambulatory - [facility] S/P TAVR [address] (transcatheter aortic [place], [place] valve replace ment) [address] Social History [...] - - Weight 129.7 kg (286 lb) 09/27/2017 1:00 PM CLINICAL LABORATORY MANAGER Height - - Body Mass Index 50.66 09/27/2017 10:33 AM CLINICAL LABORATORY MANAGER documented in this encounter Plan of Treatment Not on filedocumented as of this encounter Visit Diagnoses Diagnosis S/P TAVR (transcatheter aortic valve rep lacement) documented in this encounter Care Teams Data Center Architect Relationship Specialty Start Date End Date Elyse Paredes MD PCP - General Family Practice 12/22/13 04/21/22 [address] [place], [place] [phone] documented as of this encounter
--- OUTSIDE RECORDS SUMMARY | 2022-07-02 13:42 | XMS_ITS | Encounter Summary ---
:1950 Author Organization [facility] Address [address] [place] [address] Care Team Providers Name Role Phone Elyse Paredes MD Primary Care Provider Encounter Details Date Type Department Care Team Description [facility]/06/2017 [facility]R [address] (transcatheter aortic [place], [place] valve replace ment) [id number] Social History [...] - - Weight 131.1 kg (289 lb) 10/06/2017 3:00 PM ARTIFACTS CONSERVATOR Height - - Body Mass Index 51.19 09/27/2017 10:33 AM ARTIFACTS CONSERVATOR documented in this encounter Plan of Treatment Not on filedocumented as of this encounter Visit Diagnoses Diagnosis S/P TAVR (transcatheter aortic valve rep lacement) documented in this encounter Care Teams Brick Catcher Relationship Specialty Start Date End Date Elyse Paredes MD PCP - General Family Practice 12/22/13 04/21/22 [address] [place], [place] [phone] documented as of this encounter
--- OUTSIDE RECORDS SUMMARY | 2022-07-02 13:42 | XMS_ITS | Encounter Summary ---
:1950 Author Organization [facility] Address [address] [place] [address] Care Team Providers Name Role Phone Elyse Paredes MD Primary Care Provider Encounter Details Date Type Department Care Team Description 09/03/2017 Ambulatory - [facility] S/P TAVR [address] (transcatheter aortic [place], [place] valve replace ment) [address] Social History [...] - Inhaled Oxygen Concentration - - Weight 128.4 kg (283 lb) 09/03/2017 3:00 PM TIRE ASSEMBLER Height - - Body Mass Index 50.13 09/01/2017 2:05 PM TIRE ASSEMBLER documented in this encounter Plan of Treatment Not on filedocumented as of this encounter Visit Diagnoses Diagnosis S/P TAVR (transcatheter aortic valve rep lacement) documented in this encounter Care Teams Heading Repairer Relationship Specialty Start Date End Date Elyse Paredes MD PCP - General Family Practice 12/22/13 04/21/22 [address] [place], [place] [id number] documented as of this encounter
--- OUTSIDE RECORDS SUMMARY | 2022-07-02 13:42 | XMS_ITS | Encounter Summary ---
:1950 Author Organization [facility] Address [address] [place] [address] Care Team Providers Name Role Phone Elyse Paredes MD Primary Care Provider Encounter Details Date Type Department Care Team Description 09/13/2017 [facility] TAVR [address] (transcatheter aortic [place], [place] valve replace ment) [phone] Social History [...] - - Weight 129.7 kg (286 lb) 09/13/2017 3:00 PM COUNSELING SPECIALIST Height - - Body Mass Index 50.66 09/01/2017 2:05 PM COUNSELING SPECIALIST documented in this encounter Plan of Treatment Not on filedocumented as of this encounter Visit Diagnoses Diagnosis S/P TAVR (transcatheter aortic valve rep lacement) documented in this encounter Care Teams Wheelchair Van Driver Relationship Specialty Start Date End Date Elyse Paredes MD PCP - General Family Practice 12/22/13 04/21/22 [address] [place], [place] [id number] documented as of this encounter
--- OUTSIDE RECORDS SUMMARY | 2022-07-02 13:42 | XMS_ITS | Encounter Summary ---
:1950 Author Organization [place] Address [address] [place] [address] Care Team Providers Name Role Phone Elyse Paredes MD Primary Care Provider Encounter Details Date Type Department Care Team Description 09/01/2017 Ambulatory - [facility] S/P TAVR [address] (transcatheter aortic [place], [place] valve replace ment) [id number] Social History [...] - - Weight 128.4 kg (283 lb) 09/01/2017 3:00 PM CAPITAL MARKETS SPECIALIST Height - - Body Mass Index 50.13 09/01/2017 2:05 PM CAPITAL MARKETS SPECIALIST documented in this encounter Plan of Treatment Not on filedocumented as of this encounter Visit Diagnoses Diagnosis S/P TAVR (transcatheter aortic valve rep lacement) documented in this encounter Care Teams Outpatient Pharmacy Manager Relationship Specialty Start Date End Date Elyse Paredes MD PCP - General Family Practice 12/22/13 04/21/22 1540 [place], [place] [id number] documented as of this encounter
--- OUTSIDE RECORDS SUMMARY | 2022-07-02 13:42 | XMS_ITS | Encounter Summary ---
:1950 Author Organization [place] Address [address] [place] [id number] Care Team Providers Name Role Phone Elyse Paredes MD Primary Care Provider Encounter Details Date Type Department Care Team Description 09/29/2017 Ambulatory - [facility] S/P coronary artery stent pl acement; [address] S/P TAVR (transcatheter aort ic valve replacement) [place] [id number] Social History Tobacco Use Types Packs/Day Years [...] - - Weight 130.2 kg (287 lb) 09/29/2017 3:00 PM RETARDER OPERATOR Height - - Body Mass Index 50.84 09/27/2017 10:33 AM RETARDER OPERATOR documented in this encounter Plan of Treatment Not on filedocumented as of this encounter Visit Diagnoses Diagnosis S/P coronary artery stent placement Postsurgical percutaneous transluminal c oronary angioplasty status S/P TAVR (transcatheter aortic valve rep lacement) documented in this encounter Care Teams Nursing Unit Clerk Relationship Specialty Start Date End Date Elyse Paredes MD PCP - General Family Practice 12/22/13 04/21/22 [address] [place] [address] documented as of this encounter
--- OUTSIDE RECORDS SUMMARY | 2022-07-02 13:42 | XMS_ITS | Encounter Summary ---
:1950 Author Organization [place] Address [address] [place] [id number] Care Team Providers Name Role Phone Elyse Paredes MD Primary Care Provider Reason for Visit Reason Comments Atrial Fib Encounter Details Date Type Department Care Team Description 09/09/2017 Communication - [facility] Tarah Olivo Atr ial Fib [address] [place] [address] Social History Tobacco Use Types Packs/Day Years Used Date Smoking Tobacco: Never Assessed Sex Assigned at Date Recorded Not on file documented as of this encounter Plan of Treatment Not on filedocumented as of this encounter Visit Diagnoses Not on filedocumented in this encounter Care Teams Multineedle Shirrer Relationship Specialty Start Date End Date Elyse Paredes MD PCP - General Family Practice 12/22/13 04/21/22 1540 [place], [place] [id number] documented as of this encounter
--- OUTSIDE RECORDS SUMMARY | 2022-07-02 13:42 | XMS_ITS | Encounter Summary ---
:1950 Author Organization [place] Address [address] [place] [address] Care Team Providers Name Role Phone Elyse Paredes MD Primary Care Provider Reason for Visit Reason Comments Follow Up Encounter Details Date Type Department Care Team Description 09/27/2017 Office Visit - [facility] Ruby Kirk Persis tent atrial fibrillation (H); [facility] Chronic diastolic congestive heart failu re (H); [address] DEDE on CPAP; [address], Essential hypertension; [place], [place] [address] Coronary artery disease involving seneca coronary artery of seneca heart, angina presence unspecified [phone] [place], [place] [phone] [address] Social History Tobacco Use Types Packs/Day Years [...] - - Weight 130.2 kg (287 lb) 09/27/2017 10:33 AM CARDIOVASCULAR OR NURSE Height 160 cm (5' 3) 09/27/2017 10:33 AM CARDIOVASCULAR OR NURSE Body Mass Index 50.84 09/27/2017 10:33 AM CARDIOVASCULAR OR NURSE documented in this encounter Progress Notes Ruby Kirk APRN 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 Persistent atrial fibrillation: Spontaneous return to sinus rhythm on 09/24/2017 confirmed at cardiac rehab. Continue amiodarone loading of 200 mg twice daily until 10/01/17, then decrease amiodarone to 200 mg daily. Take metoprolol only as needed for elevated heart rate, though this should not be an issue if she maintains sinus rhythm. She was reassured that atrial fibrillation is not life-threatening, but carries an increased risk for stroke. She has a [id number] score of 5 for age 65-74, female gender, CAD, hypertension, and diabetes; long-term oral anticoagulation therapy is recommended per current guidelines. We briefly reviewed our previous discussion of alternatives to warfarin, particularly Eliquis 5 mg twice daily. 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 2. Obstructive sleep apnea: Consistent use of CPAP nightly. 3. Severe aortic stenosis status post TAVR: Has had an uneventful recovery and reported significant symptomatic improvement until development of atrial fibrillation. Her issues with A. fib recurrence have slowed her recovery despite ongoing participation in cardiac rehab. She was initially planning toreturn to work after 10/04/2017, but does not feel she is ready. 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 Continue with cardiac rehab. Extend her short-term disability. Expected return to work on Wednesday, November 08, 2017. 4. Coronary artery disease: Status post stent to the LAD in May 2017. Denies anginal symptoms. Continue Plavix 75 mg daily in addition to warfarin. Continue metoprolol tartrate 25 mg twice daily, but hold the morning of cardioversion due to tendency for sinus bradycardia. May need to decrease the dose when she is in sinus rhythm. 5. Chronic heart failure with preserved ejection fraction: She appears well compensated with no signof acute fluid overload on exam today. Follow-up with Roland Salazar CNP in 1 month, prior to her expected return to work. Subjective: Marci Diaz, a very pleasant 67-year-old woman, comes in today for follow-up of atrial fibrillation. She was newly diagnosed with atrial fibrillation on 07/22/2017, documented at cardiac rehab with ventricular rates between 110 and 130, associated with symptoms of dyspnea on exertion and fatigue. Shewas started on warfarin for stroke prophylaxis once INRs were therapeutic for an appropriate amount of time, underwent cardioversion on 08/26/2017. She had early recurrence following cardioversion for which she was started on amiodarone. Approximately 2 weeks into amiodarone loading, she converted to sinus bradycardia with heart rates in the 30s-50s. Amiodarone was decreased to 200 mg daily and her met oprolol was discontinued. She remained in sinus rhythm for a few days, but then went back into atrial fibrillation. Amiodarone was increased back to 200 mg twice daily with metoprolol on a sliding scale for heart rates. She has a history of obstructive sleep apnea for which she wears CPAP nightly, coronary artery disease status post stent to the LAD in May 2017, type 2 diabetes, hypertension, andhyperlipidemia. She also has a history of severe aortic stenosis for which she underwent TAVR on 07/06/2017 with subsequent improvement in symptoms until recurrence of A. fibXena Covarrubias states that she is aware of being back in normal rhythm since Wednesday, confirmed on cardiac rehab documentation. Her heart rates have been consistently in the upper 40s at rest, but elevate fairlyquickly into the 70s and 80s with activity. She continues to work with cardiac rehab, but still getsshort of breath with fairly minimal activity and is quite tired. She denies chest discomfort, palpitations, shortness of breath at rest, paroxysmal nocturnal dyspnea, orthopnea, lightheadedness, dizziness, pre-syncope, or syncope. She continues to frequently have a slight bloody nose on the combination of warfarin and Plavix. Medical, surgical, family, social history, and medications were reviewed and updated as necessary. Patient Active Problem List Diagnosis ??? HLD (hyperlipidemia) ??? CASTRO (dyspnea on exertion) ??? Coronary artery disease involving seneca coronary artery of seneca heart, angina presence unspecified ??? DEDE on CPAP ??? Type 2 diabetes mellitus without complication, with long-term current use of insulin ??? Essential hypertension ??? Calculus of kidney ??? Urinary tract stones ??? Chronic diastolic congestive heart failure ??? S/P TAVR (transcatheter aortic valve replacement) ??? Hyperglycemia ??? Persistent atrial fibrillation ??? Morbid obesity with BMI of 50.0-59.9, adult Past Medical History: Diagnosis Date ??? Bicuspid [...] Angiogram; Surgeon: Ankush Martinez MD; Location: [facility] Integration Director; Service: ??? CV TRANSFEMORAL TRANSCATHETER VALVE REPLACEMENT N/A 07/06/2017 Procedure: Transfemoral Transcatheter Aortic Valve Replacement; Surgeon: Ankush Martinez MD; Location: [facility] Integration Director; Service: ??? TOTAL KNEE ARTHROPLASTY Bilateral Allergies Allergen Reactions ??? Lisinopril Cough ??? Metformin Nausea And Vomiting ??? Erythromycin Base Rash Current Outpatient Prescriptions Medication Sig Dispense Refill [...] No current facility-administered medications for this visit. Family History Problem Relation Age of Onset ??? Diabetes Father ??? Heart disease Father ??? Esophageal cancer Brother ??? Urolithiasis Neg Hx ??? Clotting disorder Neg Hx ??? Gout Neg Hx Social History Substance Use Topics ??? Smoking status: Never Smoker ??? Smokeless tobacco: Never Used ??? Alcohol use No Review of Systems: General: WNL Eyes: WNL Ears/Nose/Throat: WNL Lungs: WNL Heart: WNL Stomach: WNL Bladder: WNL Muscle/Joints: WNL Skin: WNL Nervous System: WNL Mental Health: WNL Blood: WNL Objective: BP 140/78 (Patient Site: Left Arm, Patient Position: Sitting, Cuff Size: Adult Large) Pulse 76 Resp 18 Ht 5' 3 (1.6 m) Wt (!) 287 lb (130.2 kg) BMI 50.84 kg/m2 Physical Exam General Appearance: Alert, well-appearing, in no acute distress. HEENT: Atraumatic, normocephalic; no scleral icterus, EOM intact, PERRL; the mucous membranes were pink and moist. Chest: Chest symmetric, spine straight. Lungs: Respirations unlabored; the lungs are clear to auscultation. Cardiovascular: Auscultation reveals normal first and second heart sounds with no murmurs, rubs, or gallops. Regular rate and rhythm. Radial and posterior tibial pulses are intact. Abdomen: Obese, soft, nontender, nondistended, bowel sounds present. Extremities: No cyanosis, clubbing, or edema. Musculoskeletal: Moves all extremities. Skin: No xanthelasma. Neurologic: Mood and affect are appropriate. Oriented to person, place, time, and situation. Cardiographics (personally reviewed) ECG 09/27/2017 shows sinus rhythm at 62 bpm with PACs ECG done 08/30/2017 in cardiac rehab shows atrial fibrillation with fairly well- controlled ventricular response around 100 bpm EC08/26/2017, post cardioversion, shows sinus bradycardia 51 bpm, QT/QTc interval measures 448/412ms Echocardiogram: Done 07/07/2017 ?? Left ventricle ejection fraction is normal. The estimated left ventricular ejection fraction is 65%. ?? There is a bioprosthetic valve present. There is no aortic insufficiency present. The prosthetic valve is normal. ?? No pericardial effusion. ?? When compared to the previous study dated 03/25/2017, bioprosthetic aortic valve is now present, replacing stenotic seneca valve Lab Review Lab Results Component Value Date CREATININE 1.20 (H) 08/05/2017 BUN 23 (H) 08/05/2017 NA 139 08/05/2017 K 08/05/2017 Comment: Specimen hemolyzed, result invalid CL 105 08/05/2017 CO2 26 08/05/2017 Lab Results Component Value Date ALT 22 07/06/2017 AST 24 07/06/2017 ALKPHOS 69 07/06/2017 BILITOT 1.0 07/06/2017 Lab Results Component Value Date WBC 7.3 08/05/2017 HGB 12.6 08/05/2017 HCT 37.9 08/05/2017 MCV 90 08/05/2017 PLT 157 08/05/2017 Lab Results Component Value Date INR 3.4 09/27/2017 INR 2.8 09/13/2017 INR 2.4 09/06/2017 TSH done at [facility] on 03/19/17 2.72 Greater than 35 minutes were spent face to face in this visit with more than 50% of the time discussing diagnoses as listed above, counseling, and coordination of care. Ruby Kirk CNP [facility], Electrophysiology [phone] This note has been dictated using voice recognition software. Any grammatical, typographical, or context distortions are unintentional and inherent to the software. IOVASCULAR OR NURSE documented in this encounter Plan of Treatment Not on filedocumented as of this encounter Procedures Procedure Name Priority Date/Time Associated Diagnosis Comme nts ECG 12-LEAD WITH MUSE Routine 09/27/2017 Result s for this ? procedure are in the [facility] results section . documented in this encounter Results ECG 12-LEAD WITH MUSE ([facility]) (09/27/2017) [facility] Method Time Signature Systolic Blood mmHg 09/27/2017 HE [facility]ANT Pressure 4:52 PM CARDIOVASCULAR OR NURSE CONVERSION Diastolic Blood mmHg 09/27/2017 HE RADIANT Pressure 4:52 PM CARDIOVASCULAR OR NURSE CONVERSION Ventricular Rate 62 BPM 09/27/2017 HE [facility] 4:52 PM CARDIOVASCULAR OR NURSE CONVERSION Atrial Rate 62 BPM 09/27/2017 HE RAD[facility] 4:52 PM CARDIOVASCULAR OR NURSE CONVERSION SD Interval 208 ms 09/27/2017 HE RADIANT 4:52 PM CARDIOVASCULAR OR NURSE CONVERSION QRS Duration 96 ms 09/27/2017 HE RAD[facility]ANT 4:52 PM CARDIOVASCULAR OR NURSE CONVERSION QT 430 ms 09/27/2017 HE RAD[facility]ANT 4:52 PM CARDIOVASCULAR OR NURSE CONVERSION QTc 436 ms 09/27/2017 HE RADIANT 4:52 PM CARDIOVASCULAR OR NURSE CONVERSION P [place] degrees 09/27/2017 HE RADIANT 4:52 PM CARDIOVASCULAR OR NURSE CONVERSION R AXIS 5 degrees 09/27/2017 HE RADIANT 4:52 PM CARDIOVASCULAR OR NURSE CONVERSION T [place] 28 degrees 09/27/2017 HE RAD[facility] 4:52 PM CARDIOVASCULAR OR NURSE CONVERSION Interpretation Sinus rhythm with Premature atrial complexes 09/27/2017 HE RADIANT ECG Otherwise normal ECG 4:52 PM CARDIOVASCULAR OR NURSE CONVERS ION When compared with ECG of 08-SEP-2017 14:43, Premature atrial complexes are now Present Left bundle branch block is no longer Present Confirmed by LI ??WINDY CLEMENTS LOC:[facility] ([id number]) on 09/27/2017 4:5 2:27 PM Specimen (Source) Anatomical Collection Method Collection Time Re ceived Time Location / / Volume Laterality 09/27/2017 09/27/2017 4:52 PM CARDIOVASCULAR OR NURSE Ruby Kirk 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 HELPER ECG ORDERABLES Performing Organization Address City/State/ZIP Code Phon e Number HE CARDIOLOGY CONVERSION HE [facility] CONVERSION documented in this encounter Visit Diagnoses Diagnosis Persistent atrial fibrillation (H) Atrial fibrillation Chronic diastolic congestive heart failu re (H) Chronic diastolic heart failure DEDE on CPAP Obstructive sleep apnea (adult) (pediatr ic) Essential hypertension Unspecified essential hypertension Coronary artery disease involving seneca coronary artery of seneca heart, angina presence unspecified documented in this encounter Care Teams Media Promoter Relationship Specialty Start Date End Date Elyse Paredes MD PCP - General Family Practice 12/22/13 04/21/22 [address] [place] [address] documented as of this encounter
--- OUTSIDE RECORDS SUMMARY | 2022-07-02 13:42 | XMS_ITS | Encounter Summary ---
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 Height - - Body Mass Index 50.49 09/17/2017 8:23 AM STEM ASSEMBLER documented in this encounter Progress Notes Historical Provider - 09/17/2017 3:00 PM CST ITP ASSESSMENT Assessment Day: 60 Day Session Number: [id number] Precautions: standard cardiac Diagnosis: Valve;Stent (TAVR) Risk Stratification: High Referring Provider: Ankush Martinez MD EXERCISE Exercise Assessment: Reassessment Exercise Plan Goals Next 30 days ADL'S: pt will climb 14 steps to bedroom without fatigue, sob Leisure: Pt will resume scarf-dying when weather allows, with open window ventilation, improved breathing Work: Pt to return to work FT pacing self as able Education Goals: Patient can state cardiac s/s and appropriate emergency response.;Has system for taking medication.;Medication review;All goals in this section met Education Goals Met: Patient can state cardiac s/s and appropriate emergency response.;Has system for taking medication.;Medication review. 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 Exercise Prescription Exercise Mode: Treadmill;Bike;Nustep;Arm Erg.;Hallway Walking Frequency: 2-3 x weekly Duration: 45-50 min Intensity / THR: 20-30 beats above resting heart rate RPE 11-14 Progression / Met level: 2-4 mets Resistive Training?: Yes Current Exercise (mins/week): 20 (reports is very sedate lately due to fatigue, sob with AFib) Interventions Home Exercise: Mode: walking / stationary bike Frequency: 3-4 x week Duration: encouraged to try 15 min 2x day on bike to avoid knee discomfort, fatigue Education Material : Educational videos;Provide written material;Individual education and counseling;Offer educational classes Education Completed Exercise Education Completed: Cardiac Anatomy;Signs and Symptoms;Medication review;Emergency Plan;Home Exercise;Warm up/cool down;Benefits of Exercise;End point of exercise;RPE;BP/HR Reponse to exercise Exercise Follow-up/Discharge Follow up/Discharge: Still no regular exercise plan due to fatigue, knees, sob. Encouraged to try using stationary bike (NWB exercise) as tolerated. NUTRITION Nutrition Assessment: Reassessment Nutrition Risk Factors: Nutrition Risk Factors: Diabetes;Dyslipidemia;Overweight HbA1c: 7.5 Monitors blood sugar at home: Yes Frequency: 4x day Cholesterol: 150 LDL: 78 HDL: 45 Triglycerides: 136 Nutrition Plan Interventions Diet Consult: Completed Other Nutrition Intervention: Referral to DM education (reports has met with DM educator / [employer]) Education Completed Nutrition Education Completed: Carbohydrate counting;Discussed small frequent meals and nutritional supplements;Label reading class;Low sodium diet (States has covered nutritional topics w/ [employer]aseler) Goals Nutrition Goals (Next 30 days): Patient will follow a low sodium diet;Patient will follow a low saturated fat diet;Patient will lose weight Goals Met Nutrition Goals Met: Patient can identify their risk factors for CAD;Patient follows a low sodium diet;Patient states following a low saturated fat diet;Patient able to demonstrate carbohydrate counting;Patient knows appropriate portion size Height, Weight, and BMI Weight: 285 lb (129.3 kg) Height: 5' 2 (1.575 m) BMI: 52.11 Nutrition Follow-up Follow-up/Discharge: states knows proper diet but not following too well. Would like to lose wt whenhas more energy to be active. Other Risk Factors Other Risk Factor Assessment: Reassessment HTN Risk Factor: Hypertension Pre Exercise BP: 132/72 Post Exercise BP: 122/78 Hypertension Plan Goals HTN Goals: Exercises regularly Goals Met HTN Goals Met: Follow low sodium diet;Take medication as prescribed HTN Interventions HTN Interventions: Therapist/patient discussion;Offer educational videos;Provide written material HTN Education Completed HTN Education Completed: Low sodium diet;Risk factor overview;Medication review;Low sodium class;Label reading class;Dining out class;Meal Planning class (Has the info from [employer]. Needs to follow better) Tobacco Risk Factor: NA Risk Factor Follow-up Follow-up/Discharge: Declined any further Q&A with Track Supervisor for now. PSYCHOSOCIAL Psychosocial Assessment: Reassessment [facility] Q of L Summary Score: 28 ANA-D Score: 6 Psychosocial Risk Factor: Stress Psychosocial Plan Interventions Interventions: Offer educational videos and classes;Provide written material;Individual education and counseling Education Completed Education Completed: Relaxation/Coping Techniques;Effects of stress on body Goals Goals (Next 30 days): Practicing stress management skills Goals Met Goals Met: Identified Support system;Identify stressors Psychosocial Follow-up Follow-up/Discharge: Reports being more anxious since AFib returned. Looking forward to December Patient involved in Goal setting?: Yes Signature: Date: Time: documented in this encounter Plan of Treatment Not on filedocumented as of this encounter Visit Diagnoses Diagnosis S/P TAVR (transcatheter aortic valve rep lacement) S/P coronary artery stent placement Postsurgical percutaneous transluminal c oronary angioplasty status documented in this encounter Care Teams Applications Systems Analyst Relationship Specialty Start Date End Date Elyse Paredes MD PCP - General Family Practice 12/22/13 04/21/22 [address] [place] [address] documented as of this encounter
--- OUTSIDE RECORDS SUMMARY | 2022-07-02 13:42 | XMS_ITS | Encounter Summary ---
:1950 Author Organization [facility] [place] Address [address] [place] [address] Care Team Providers Name Role Phone Elyse Paredes MD Primary Care Provider Encounter Details Date Type Department Care Team Description 09/08/2017 [facility] (H[facility] [address] [address] [place], [place] [phone] Social History Tobacco Use Types Packs/Day [...] 3/16 NDLE] USE 4-5 PER DAY UTD LANTUS SOLOSTAR 100 [LANTUS SOLOSTAR 100 0 [...] TABLET] Take 10 mg by mouth daily. sertraline (ZOLOFT) 100 [SERTRALINE (ZOLOFT) 0 04/22/2022 MG tablet 100 MG TABLET] Take 50 mg by mouth daily. documented as of this encounter Plan of Treatment Not on filedocumented as of this encounter Procedures Procedure Name Priority Date/Time Associated Diagnosis Comme nts ECG 12-LEAD WITH Routine 09/08/2017 2:28 PM Resul ts for this MUSE ? PIG FARMER procedure are in [facility] the results section. documented in this encounter Results ECG 12-LEAD WITH MUSE (LHE) (09/08/2017 2:28 PM PIG FARMER) [facility] Method Time Signature Systolic Blood mmHg 09/08/2017 HE RADIANT Pressure 4:16 PM CONVERSION PIG FARMER Diastolic Blood mmHg 09/08/2017 HE RADIANT Pressure 4:16 PM CONVERSION PIG FARMER Ventricular Rate 57 BPM 09/08/2017 HE RADIANT 4:16 PM CONVERSION PIG FARMER Atrial Rate 57 BPM 09/08/2017 HE RADIANT 4:16 PM CONVERSION PIG FARMER MI Interval 205 ms 09/08/2017 HE RADIANT 4:16 PM CONVERSION PIG FARMER QRS Duration 146 ms 09/08/2017 HE RADIANT 4:16 PM CONVERSION PIG FARMER QT 454 ms 09/08/2017 HE RADIANT 4:16 PM CONVERSION PIG FARMER QTc 441 ms 09/08/2017 HE RADIANT 4:16 PM CONVERSION PIG FARMER P Ellinger 15 degrees 09/08/2017 HE RADIANT 4:16 PM CONVERSION PIG FARMER R AXIS 30 degrees 09/08/2017 HE RADIANT 4:16 PM CONVERSION PIG FARMER T Ellinger 4 degrees 09/08/2017 HE RADIANT 4:16 PM CONVERSION PIG FARMER Interpretation Sinus bradycardia 09/08/2017 HE RAD IANT ECG Left bundle branch block 4:16 PM CONVE RSION Abnormal ECG PIG FARMER When compared with ECG of 26-AUG-2017 14:20, Left bundle branch block is now Present Confirmed by MOIZ ??SAMANTHA CLEMENTS LOC:JN ([id number]) on 09/08/2017 4:16:01 PM Specimen Anatomical Collection Method Collection Time Receive d Time (Source) Location / / Volume Laterality 09/08/2017 2:28 PM 8 4:16 PIG FARMER PM PIG FARMER Historical Provider ECG ORDERABLES Performing Organization Address City/State/ZIP Code Phon e Number HE CARDIOLOGY CONVERSION HE RADIANT CONVERSION documented in this encounter Visit Diagnoses Diagnosis Atrial fibrillation (H) Atrial fibrillation documented in this encounter Care Teams Criminal Profiler Relationship Specialty Start Date End Date Elyse Paredes MD PCP - General Family Practice 12/22/13 04/21/22 1540 [place] [address] documented as of this encounter
--- OUTSIDE RECORDS SUMMARY | 2022-07-02 13:42 | XMS_ITS | Encounter Summary ---
:1950 Author Organization [facility] Address [address] [place] [address] Care Team Providers Name Role Phone Elyse Paredes MD Primary Care Provider Encounter Details Date Type Department Care Team Description 09/15/2017 [facility] TAVR (transcatheter aort ic valve replacement); [address] S/[place] [address] Social History Tobacco Use Types [...] - - Weight 129.3 kg (285 lb) 09/15/2017 2:00 PM LOCOMOTIVE SWITCH OPERATOR Height - - Body Mass Index 50.49 09/01/2017 2:05 PM LOCOMOTIVE SWITCH OPERATOR documented in this encounter Progress Notes Historical Provider - 09/15/2017 3:00 PM CST 09/15/2017 Pt arrived to OP / CR very upset with herself about forgetting to go to her HC appt in AM where she was anxious to get her meds (Amiodarone / Metoprolol ) clarified. Monitor shows pt to be in AFib RVR at rest 120-140s and slightly winded. After resting 5 min AFib 90-100s. BP110/72. Tolerated exercise at 2-3 mets with AFib 129-150 150/78 We were able to reschedule appt for Wednesday AM and pt very relieved. EKG scanned into pt's chart for review. Historical Provider - 09/15/2017 3:00 PM CST Progress Notes by Carrie Donaldson RN at 09/15/2017 3:00 PM Author: Carrie Donaldson RN Service: -- Author Type: Registered Nurse Filed: 09/16/2017 8:10 AM Encounter Date: 09/15/2017 Status: Attested Solar Panel Technician: Carrie Donaldson RN (Registered Nurse) Cosigner: Nicole Salazar CNP at 09/16/2017 3:33 PM Attestation signed by Nicole Salazar CNP at 09/16/2017 3:33 PM Seeing urgently in clinic 09/17 for reoccurence of afib and anticipate will increase amiodarone and check drug level. Will need cardiac rehab to notify Ruby Kirk if heart rates not controlled in rehab or bradycardic OR if not back in sinus rhythm consistently after 2 weeks. Marci Staley Anthonykev has participated in 22 sessions of Phase II Cardiac Rehab. Progress Report: Cardiac Rehab Treatment Progress Report 09/06/2017 09/08/2017 09/10/2017 09/13/2017 09/15/2017 Weight 284 lbs 285 lbs 285 lbs 286 lbs 285 lbs Pre Exercise HR 75 67 95 100 90 Pre Exercise BP 128/72 148/70 140/70 134/84 110/72 Pre Blood Sugar (mg/dl) 186 178 196 211 232 Treadmill Peak HR - - - - - Treadmill Peak Blood Pressure - - - - - Nustep Peak Heart Rate - - - - 111-138 Nustep Peak Blood Pressure - - - - 140/72 Heart Rate 65 77 84 94 101 Post Exercise BP 120/70 120/60 130/70 122/68 122/78 Post Blood Sugar (mg/dl) 133 108 106 200 177 ECG SR SR with switching to LBBB at rest intermittently SR-ST SR-ST AFib RVR Total Exercise Minutes 40 40 45 37 35 RECUMBENT ELLIPTICAL: HR AFib 129-148 150/78 2.1-2.3 met level slightly winded, fatigued Current Status: Tolerating very low level exercise with being winded and tiring easily, with AFib RVR. If Physician recommends change in treatment plan, please place orders. Signature Date documented in this encounter Plan of Treatment Not on filedocumented as of this encounter Procedures Procedure Name Priority Date/Time Associated Diagnosis Comme nts EKG CARDIAC - HIM SCAN 09/15/2017 documented in this encounter Results EKG CARDIAC - HIM SCAN (09/15/2017) Specimen (Source) Anatomical Location Collection Method / Collectio n Time Received Time / Laterality Volume Narrative This result has an attachment that is no t available. Historical Provider ECG ORDERABLES documented in this encounter Visit Diagnoses Diagnosis S/P TAVR (transcatheter aortic valve rep lacement) S/P coronary artery stent placement Postsurgical percutaneous transluminal c oronary angioplasty status documented in this encounter Care Teams Duck Farmer Relationship Specialty Start Date End Date Elyse Paredes MD PCP - General Family Practice 12/22/13 04/21/22 [address] [place] [address] documented as of this encounter
--- OUTSIDE RECORDS SUMMARY | 2022-07-02 13:42 | XMS_ITS | Encounter Summary ---
:1950 Author Organization [facility] Address [address] [place] [address] Care Team Providers Name Role Phone Elyse Paredes MD Primary Care Provider Reason for Visit Reason Comments Atrial Fib Encounter Details Date Type Department Care Team Description 09/07/2017 Communication - [facility] Tarah Olivo Atr ial Fib [address] [place] [address] Social History Tobacco Use Types Packs/Day Years Used Date Smoking Tobacco: Never Assessed Sex Assigned at Date Recorded Not on file documented as of this encounter Plan of Treatment Not on filedocumented as of this encounter Visit Diagnoses Not on filedocumented in this encounter Care Teams Vice Principal Relationship Specialty Start Date End Date Elyse Paredes MD PCP - General Family Practice 12/22/13 04/21/22 15[address] [place], [place] [id number] documented as of this encounter
--- OUTSIDE RECORDS SUMMARY | 2022-07-02 13:42 | XMS_ITS | Encounter Summary ---
:1950 Author Organization [facility] Address [address] [place] [address] Care Team Providers Name Role Phone Elyse Paredes MD Primary Care Provider Encounter Details Date Type Department Care Team Description [facility] (transcatheter aort ic valve replacement); [address] S/[address] coronary [place] [phone] Social History Tobacco Use Types Packs/Day Years [...] - - Weight 129.3 kg (285 lb) 09/22/2017 3:00 PM WEDDING PHOTOGRAPHER Height - - Body Mass Index 50.49 09/17/2017 8:23 AM WEDDING PHOTOGRAPHER documented in this encounter Plan of Treatment Not on filedocumented as of this encounter Visit Diagnoses Diagnosis S/P TAVR (transcatheter aortic valve rep lacement) S/P coronary artery stent placement Postsurgical percutaneous transluminal c oronary angioplasty status documented in this encounter Care Teams Assisted Living Administrator Relationship Specialty Start Date End Date Elyse Paredes MD PCP - General Family Practice 12/22/13 04/21/22 [address] [place] [address] documented as of this encounter
--- OUTSIDE RECORDS SUMMARY | 2022-07-02 13:42 | XMS_ITS | Encounter Summary ---
:1950 Author Organization [facility] Address [address] [place] [address]. [place] [address] Care Team Providers Name Role Phone Elyse Paredes MD Primary Care Provider Reason for Visit Reason Comments Other CV CANCELLED PT IN NSR Encounter Details Date Type Department Care Team Description 09/09/2017 Ambulatory - [facility] [address] [facility] [address] [place] [phone] Social History Tobacco Use Types Packs/Day Years Used Date Smoking Tobacco: Never Assessed Sex Assigned at Date Recorded Not on file documented as of this encounter Progress Notes Sina Olivo - 09/09/2017 9:09 AM CST Please see prior note Pt had EKG yesterday before cardia rehab, and Ruby reviewed, pt in NSR, so CV cancelled Pt is to remain off metoprolol and continue amiodarone 200 mg 1 qd and see Ruby in 1 week schedulers notified, and pt is feeling good and agrees to plan. Pt has my direct number for contact. HANDISING CONSULTANT documented in this encounter Plan of Treatment Not on filedocumented as of this encounter Visit Diagnoses Not on filedocumented in this encounter Care Teams Change Lead Relationship Specialty Start Date End Date Elyse Paredes MD PCP - General Family Practice 12/22/13 04/21/22 [address] [place] [address] documented as of this encounter
--- OUTSIDE RECORDS SUMMARY | 2022-07-02 13:42 | XMS_ITS | Encounter Summary ---
:1950 Author Organization [facility] Address [address] [place] [address] Care Team Providers Name Role Phone Elyse Paredes MD Primary Care Provider Encounter Details Date Type Department Care Team Description [facility]/2017 [facility] TAVR [address] (transcatheter aortic [place], [place] valve replace ment) [phone] Social History [...] - - Weight 129.3 kg (285 lb) 09/24/2017 3:00 PM SUPERVISOR TITLE Height - - Body Mass Index 50.49 09/17/2017 8:23 AM SUPERVISOR TITLE documented in this encounter Plan of Treatment Not on filedocumented as of this encounter Visit Diagnoses Diagnosis S/P TAVR (transcatheter aortic valve rep lacement) documented in this encounter Care Teams Plater Production Relationship Specialty Start Date End Date Elyse Paredes MD PCP - General Family Practice 12/22/13 04/21/22 1540 [place], [place] [id number] documented as of this encounter
--- OUTSIDE RECORDS SUMMARY | 2022-07-02 13:42 | XMS_ITS | Encounter Summary ---
:1950 Author Organization [facility] Address [address] [place] [address] Care Team Providers Name Role Phone Elyse Paredes MD Primary Care Provider Encounter Details Date Type Department Care Team Description 09/13/2017 Ambulatory - [facility] S/P TAVR [facility] Heart [facility] Perezu dorota (transcatheter aortic [address] valve replacement) [place] [address] Social History Tobacco Use Types Packs/Day Years Used Date Smoking Tobacco: Never Assessed Sex Assigned at Date Recorded Not on file documented as of this encounter Progress Notes Herlinda James RN - 09/13/2017 2:30 PM CST Reviewed with pt no changes in Coumadin dose, pt denies any s/s of bleeding, pt has no further questions at this time, pt has clinics contact information for further concerns/questions, pt was instructed when to obtain next INR appointment and verbalized understanding JW ENT RECORDS COORDINATOR documented in this encounter Plan of Treatment Not on filedocumented as of this encounter Procedures Procedure Name Priority Date/Time Associated Diagnosis Comme nts INR POINT OF CARE Routine 09/13/2017 Results fo r this procedure are in the resu lts section. documented in this encounter Results INR point of care (09/13/2017) P athologist Signature INR 2.8 Specimen (Source) Anatomical Location Collection Method / Collectio n Time Received Time / Laterality Volume Blood specimen 09/13/2017 (specimen) Ruby Kirk COKE BURNER CAPTAIN WAITER/WAITRESS LAB - BLOOD ORDERABLES documented in this encounter Visit Diagnoses Diagnosis S/P TAVR (transcatheter aortic valve rep lacement) documented in this encounter Care Teams Senior System Operator Relationship Specialty Start Date End Date Elyse Paredes MD PCP - General Family Practice 12/22/13 04/21/22 1540 [place] [address] documented as of this encounter
--- OUTSIDE RECORDS SUMMARY | 2022-07-02 13:42 | XMS_ITS | Encounter Summary ---
:1950 Author Organization [facility] Address [address] [place] [address] Care Team Providers Name Role Phone Elyse Paredes MD Primary Care Provider Encounter Details Date Type Department Care Team Description 10/11/2017 Ambulatory - [facility] S/P TAVR [facility] Heart [facility] Perezu dorota (transcatheter aortic [address] valve replacement) [place] [address] Social History Tobacco Use Types Packs/Day Years Used Date Smoking Tobacco: Never Assessed Sex Assigned at Date Recorded Not on file documented as of this encounter Progress Notes Gabrielle Golden RN - 10/11/2017 2:30 PM CDT INR 1.7 will increase dose to 5 mg Wednesday and Wednesday ad 2.5 mg all other days. Retest in [...] Comme nts INR POINT OF CARE Routine 10/11/2017 Results fo r this procedure are in the resu lts section. documented in this encounter Results INR point of care (10/11/2017) P athologist Signature INR 1.7 Specimen (Source) Anatomical Location Collection Method / Collectio n Time Received Time / Laterality Volume Blood specimen 10/11/2017 (specimen) Ankush Martinez MD LAB - BLOOD ORDERABLES documented in this encounter Visit Diagnoses Diagnosis S/P TAVR (transcatheter aortic valve rep lacement) documented in this encounter Care Teams Cranberry Farm Supervisor Relationship Specialty Start Date End Date Elyse Paredes MD PCP - General Family Practice 12/22/13 04/21/22 [address] [place] [address] documented as of this encounter
--- OUTSIDE RECORDS SUMMARY | 2022-07-02 13:42 | XMS_ITS | Encounter Summary ---
:1950 Author Organization [facility] Address [address] [place] [address] Care Team Providers Name Role Phone Elyse Paredes MD Primary Care Provider Encounter Details Date Type Department Care Team Description 09/10/2017 Ambulatory - [facility] S/P TAVR [address] (transcatheter aortic [place], [place] valve replace ment) [phone] Social History [...] - - Weight 129.3 kg (285 lb) 09/10/2017 3:00 PM TALENT ACQUISITION PROJECT MANAGER Height - - Body Mass Index 50.49 09/01/2017 2:05 PM TALENT ACQUISITION PROJECT MANAGER documented in this encounter Plan of Treatment Not on filedocumented as of this encounter Procedures Procedure Name Priority Date/Time Associated Diagnosis Comme nts GLUCOSE BY METER Routine 09/10/2017 3:58 PM Resul ts for this POCT TALENT ACQUISITION PROJECT MANAGER procedure are i n the results section. documented in this encounter Results Glucose by meter POCT (09/10/2017 3:58 PM TALENT ACQUISITION PROJECT MANAGER) P athologist Signature GLUCOSE BY 106 mg/dL 09/10/2017 [facility] METER POCT 3:58 PM TALENT ACQUISITION PROJECT MANAGER HOSPITAL POCT RESULTS Comment: Reference Ranges ? [...] Location / / Volume Laterality Blood specimen 09/10/2017 3:58 PM 018 4:04 (specimen) TALENT ACQUISITION PROJECT MANAGER PM TALENT ACQUISITION PROJECT MANAGER Historical Provider LAB - ENTER/EDIT POCT Performing Organization Address City/State/ZIP Code Phon e Number [facility] POCT RESULTS [address] [place] [address] documented in this encounter Visit Diagnoses Diagnosis S/P TAVR (transcatheter aortic valve rep lacement) documented in this encounter Care Teams Construction Code Administrator Relationship Specialty Start Date End Date Elyse Paredes MD PCP - General Family Practice 12/22/13 04/21/22 [address] [place] [address] documented as of this encounter
--- OUTSIDE RECORDS SUMMARY | 2022-07-02 13:42 | XMS_ITS | Encounter Summary ---
:1950 Author Organization [facility] Address [address] [place] [address] Care Team Providers Name Role Phone Elyse Paredes MD Primary Care Provider Encounter Details Date Type Department Care Team Description 10/11/2017 [facility] T[facility]R [address] (transcatheter aortic [place], [place] valve replace ment) [phone] Social History [...] - - Weight 131.1 kg (289 lb) 10/11/2017 3:00 PM CDT Height - - Body Mass Index 51.19 09/27/2017 10:33 AM COUNTER SUPERVISOR documented in this encounter Plan of Treatment Not on filedocumented as of this encounter Visit Diagnoses Diagnosis S/P TAVR (transcatheter aortic valve rep lacement) documented in this encounter Care Teams Overedge Sewer Relationship Specialty Start Date End Date Elyse Paredes MD PCP - General Family Practice 12/22/13 04/21/22 1540 [place], [place] [phone] documented as of this encounter
--- OUTSIDE RECORDS SUMMARY | 2022-07-02 13:43 | XMS_ITS | Encounter Summary ---
:1950 Author Organization [facility] Address [address] [place] [address] Care Team Providers Name Role Phone Elyse Paredes MD Primary Care Provider Encounter Details Date Type Department Care Team Description 08/09/2017 Ambulatory - [facility] S/P TAVR [address] (transcatheter aortic [place], [place] valve replace ment) [phone] Social History [...] - Inhaled Oxygen Concentration - - Weight 127 kg (280 lb) 08/09/2017 11:00 AM FINANCE ADVISOR Height - - Body Mass Index 51.21 08/05/2017 10:47 AM FINANCE ADVISOR documented in this encounter Plan of Treatment Not on filedocumented as of this encounter Visit Diagnoses Diagnosis S/P TAVR (transcatheter aortic valve rep lacement) documented in this encounter Care Teams System Specialist Relationship Specialty Start Date End Date Elyse Paredes MD PCP - General Family Practice 12/22/13 04/21/22 15[address] [place], [place] [phone] documented as of this encounter
--- OUTSIDE RECORDS SUMMARY | 2022-07-02 13:43 | XMS_ITS | Encounter Summary ---
:1950 Author Organization [place] Address [address] [place] [address] Care Team Providers Name Role Phone Elyse Paredes MD Primary Care Provider Encounter Details Date Type Department Care Team Description 08/09/2017 Ambulatory - [facility] S/P TAVR [facility] Heart [facility] Perez[facility] dorota (transcatheter aortic [address] valve replacement) [place] [address] Social History Tobacco Use Types Packs/Day Years Used Date Smoking Tobacco: Never Assessed Sex Assigned at Date Recorded Not on file documented as of this encounter Progress Notes Gabrielle Golden RN - 08/09/2017 10:30 AM CST INR 3.0 After talking with pt and discussing history of greens/salads and medication change. Pt willcontinue with current diet and dosing of Warfarin. Continue with moderation of Vit K and green leafyvegetables. Cautioned to call with increase bruising or bleeding. Reminded to call with medication change especially antibiotic. Call with any questions or concerns or any up coming procedures. Cautioned about using Herbal medication. STEAMER Gabrielle Golden RN - 08/09/2017 10:30 AM CST No change to NOVAC. STEAMER documented in this encounter Plan of Treatment Not on filedocumented as of this encounter Procedures Procedure Name Priority Date/Time Associated Diagnosis Comme nts INR POINT OF CARE Routine 08/09/2017 Results fo r this procedure are in the resu lts section. documented in this encounter Results INR point of care (08/09/2017) P athologist Signature INR 3.0 Specimen (Source) Anatomical Location Collection Method / Collectio n Time Received Time / Laterality Volume Blood specimen 08/09/2017 (specimen) Ankush Martinez MD LAB - BLOOD ORDERABLES documented in this encounter Visit Diagnoses Diagnosis S/P TAVR (transcatheter aortic valve rep lacement) documented in this encounter Care Teams Controller Instructor Relationship Specialty Start Date End Date Elyse Paredes MD PCP - General Family Practice 12/22/13 04/21/22 [address] [place] [address] documented as of this encounter
--- OUTSIDE RECORDS SUMMARY | 2022-07-02 13:43 | XMS_ITS | Encounter Summary ---
:1950 Author Organization [facility] Address [address] [place] [address] Care Team Providers Name Role Phone Elyse Paredes MD Primary Care Provider Encounter Details Date Type Department Care Team Description [facility]/2017 [facility]R [address] (transcatheter aortic [place], [place] valve replace ment) [phone] Social History [...] - - Weight 129.7 kg (286 lb) 08/27/2017 11:00 AM TERMINAL CLERK Height - - Body Mass Index 50.66 08/26/2017 11:41 AM TERMINAL CLERK documented in this encounter Plan of Treatment Not on filedocumented as of this encounter Visit Diagnoses Diagnosis S/P TAVR (transcatheter aortic valve rep lacement) documented in this encounter Care Teams Microfilm Mounter Relationship Specialty Start Date End Date Elyse Paredes MD PCP - General Family Practice 12/22/13 04/21/22 15[address] [place], [place] [phone] documented as of this encounter
--- OUTSIDE RECORDS SUMMARY | 2022-07-02 13:43 | XMS_ITS | Encounter Summary ---
:1950 Author Organization [place] Address [address] [place] [id number] Care Team Providers Name Role Phone Elyse Paredes MD Primary Care Provider Reason for Visit Reason Comments Other CV PREP Encounter Details Date Type Department Care Team Description 08/23/2017 [facility] od [address] [facility] [address] [place] [id number] Social History Tobacco Use Types Packs/Day Years Used Date Smoking Tobacco: Never Assessed Sex Assigned at Date Recorded Not on file documented as of this encounter Progress Notes Sina Olivo - 08/23/2017 2:41 PM CST 1950 (home) There is no such number on file (mobile). +++Important patient information for CSC/Electroneurodiagnostic Technologist staff : PT IS DIABETIC, PT IS DEDE/CPAP, PT IS NEW COUMADIN+++ [facility] EP Electroneurodiagnostic Technologist Procedure Order Cardioversion: Cardioversion PT NEW ON COUMADIN, INR'S ARE IN EPIC UNDER LAB TAB 08/23=2.3 08/16=4.4 08/09=3.0 08/06=3.4 07/27=1.6 Diagnosis: AF Anticipated Case Duration: Standard Scheduling Needs/Timeframe: PT IS SET FOR 08/26/2017 AT 11 30 WITH ROLAND SALAZAR TEAM LEAD Current Device: None None Device Company/Device Rep Needed for Procedure: None Anesthesia: General-CV Only Research Protocol: No [facility] EP Electroneurodiagnostic Technologist Prep Ordering Provider: Roland Salazar AUTOMOBILE DEALER Ordering Date: 07/29/2018 Orders Status: Intial order placed and Order set placed EP NC Contact: Tarah Olivo LPN H&P: Compled by ROLAND SALAZAR TEAM LEAD on 07/29/2017 PCP: Elyse Paredes MD, Pre-op Labs: N/A for procedure Medical Records Pertinent for Procedure: N/A Patient Education: PT HAS A [employer] D[employer] CONSULTANT FOR PROCEDURE PT INSTRUCTED TO HOLD ANY VITAMIN, MINERALS, CALCIUM, IRON OR SUPPLEMENTS THE MORNING OF CV PT IS DEDE/CPAP PT IS DIABETIC, INSTRUCTED TO HOLD HER NOVOLOG MORNING OF CV, PER AUG NO CHANGE IN LANTUS PT INSTRUCTED TO TAKE METOPROLOL TARTRATE 25 MG THE A.M. OF CV PT IS TO HAVE FOLLOW UP WITH ROLAND IN 4 WEEKS AND FLIGHT INFORMATION EXPEDITER HAS BEEN NOTIFIED. Teach with Patient: Completed via phone on 08/23/2017 Risks Reviewed: Cardioversion ? ? >90% acute success rate, <10% failure to convert or reverts shortly after cardioversion. ? ? <1% embolic event of (CVA, pulmonary embolism, or other site). ??? 75% risk for superficial burn. Risks associated with general anesthesia will be addressed by the Anesthesiology Department Consent: Will be obtained in CSC day of procedure Pre-Procedure Instructions that were Reviewed with Patient: NPO after midnight, Notified patient of time and date of procedure by CV surgical scheduler, Transportation arrangements needed s/p procedure, Post-procedure follow up process and Sedation plan/orders Pre-Procedure Medication Instructions: Instructions given to pt regarding anticoagulants: Coumadin- instructed to continue anticoagulation uninterrupted through their procedure Instructions given to pt regarding antiarrhythmic medication: Beta Wendy; Pt instructed to continue medication prior to procedure Instructions for medication, other than anticoagulants/antiarrhythmics listed above, given to pt: totake all morning medications with small sips of water, with the exception of OTC supplements and MVI Allergies Allergen Reactions ??? Lisinopril Cough ??? Metformin Nausea And Vomiting ??? Erythromycin Base Rash Current Outpatient Prescriptions: ??? aspirin 81 mg chewable tablet, Chew 1 tablet (81 mg total) daily., Disp: , Rfl: 0 ??? BD [...] mouth daily. , Disp: , Rfl: ??? clopidogrel (PLAVIX) 75 mg tablet, TAKE 1 TABLET BY MOUTH EVERY DAY, Disp: 90 tablet, Rfl: 3 ??? CRESTOR 10 mg tablet, Take 10 mg by mouth daily. , Disp: , Rfl: ??? insulin aspart (NOVOLOG) 100 unit/mL injection, Inject 6-10 Units under the skin 3 (three) timesa day before meals., Disp: , Rfl: ??? LANTUS SOLOSTAR 100 unit/mL (3 mL) pen, 30 Units 2 (two) times a day. , Disp: , Rfl: ??? losartan (COZAAR) 50 MG tablet, Take 50 mg by mouth daily. , Disp: , Rfl: ??? metoprolol tartrate (LOPRESSOR) 50 MG tablet, TAKE 1 TABLET BY MOUTH TWICE DAILY, Disp: 180 tablet, Rfl: 1 ??? sertraline (ZOLOFT) 100 MG tablet, Take 50 mg by mouth daily. Patient takes 50mg daily, Disp: , Rfl: ??? warfarin (COUMADIN) 5 MG tablet, TAKE 1 TABLET(5 MG) BY MOUTH DAILY. ADJUST DOSE BASED ON INR RESULTS DIRECTED, Disp: 30 tablet, Rfl: 0 OR BACKUP ADMINISTRATOR documented in this encounter Plan of Treatment Not on filedocumented as of this encounter Visit Diagnoses Not on filedocumented in this encounter Care Teams Sister Superior Relationship Specialty Start Date End Date Elyse Paredes MD PCP - General Family Practice 12/22/13 04/21/22 [address] [place] [address] documented as of this encounter
--- OUTSIDE RECORDS SUMMARY | 2022-07-02 13:43 | XMS_ITS | Encounter Summary ---
:1950 Author Organization [place] Address [address] [place] [address] Care Team Providers Name Role Phone Elyse Paredes MD Primary Care Provider Encounter Details Date Type Department Care Team Description 08/06/2017 Ambulatory - [facility] S[facility]P [facility] aortic [address] valve replacement) [place] [address] Social History Tobacco Use Types Packs/Day Years Used Date Smoking Tobacco: Never Assessed Sex Assigned at Date Recorded Not on file documented as of this encounter Progress Notes Gabrielle Golden RN - 08/06/2017 1:00 PM CST INR 3.4 will take 2.5 mg today and then 5 mg. Retest on Wednesday-. NEER SECOND ASSISTANT documented in this encounter Plan of Treatment Not on filedocumented as of this encounter Procedures Procedure Name Priority Date/Time Associated Diagnosis Comme nts INR POINT OF CARE Routine 08/06/2017 Results fo r this procedure are in the resu lts section. documented in this encounter Results INR point of care (08/06/2017) P athologist Signature INR 3.4 Specimen (Source) Anatomical Location Collection Method / Collectio n Time Received Time / Laterality Volume Blood specimen 08/06/2017 (specimen) Ankush Martinez MD LAB - BLOOD ORDERABLES documented in this encounter Visit Diagnoses Diagnosis S/P TAVR (transcatheter aortic valve rep lacement) documented in this encounter Care Teams Machine Set Up Relationship Specialty Start Date End Date Elyse Paredes MD PCP - General Family Practice 12/22/13 04/21/22 [address] [place] [address] documented as of this encounter
--- OUTSIDE RECORDS SUMMARY | 2022-07-02 13:43 | XMS_ITS | Encounter Summary ---
:1950 Author Organization [place] Address [address] [place] [address] Care Team Providers Name Role Phone Elyse Paredes MD Primary Care Provider Reason for Visit Reason Comments Follow Up Encounter Details Date Type Department Care Team Description 09/01/2017 Office Visit - [facility] Ruby Kirk Persis tent atrial fibrillation (H); [facility] Xena MOYA CNP Chronic diastolic congestive heart failu re (H); [address] Coronary artery disease invo lving [place] coronary artery of [place] heart, angina presence unspecified; [address], Essential hypertension; [place], [place] [address] DEDE on CPAP [address] [place], [place] [phone] [address] Social History Tobacco Use Types Packs/Day Years [...] - Weight 128.4 kg (283 lb) 09/01/2017 2:05 PM PROP SETTER Height 160 cm (5' 3) 09/01/2017 2:05 PM PROP SETTER Body Mass Index 50.13 09/01/2017 2:05 PM PROP SETTER documented in this encounter Progress Notes Ruby Kirk APRN CNP - 09/01/2017 2:10 PM CST [facility]--Electrophysiology Assessment/Plan: Problem List Items Addressed This Visit Coronary artery disease involving [place] coronary artery of [place] heart, angina presence unspecified DEDE on CPAP Essential hypertension Chronic diastolic congestive heart failure Persistent atrial fibrillation - Primary Relevant Orders POCT INR (Completed) EP Cardioversion External 1. Persistent atrial fibrillation: Early recurrence after cardioversion. Ventricular response is fairly well-controlled. We had a lengthy discussion of the physiology and natural progression of atrial fibrillation as well as treatment options of rate control versus rhythm control with antiarrhythmic me dications versus pulmonary vein isolation ablation. Due to her degree of underlying sinus tachycardia, she would not likely tolerate sotalol. Recommend using amiodarone at least for the short-term, buthesitate using it long-term as she is only 67. We discussed the potential risk for amiodarone to adversely affect the liver, thyroid, skin, eyes and lungs with pulmonary fibrosis being the most significant and non-reversible, but dose and time dependent. Discussed routine monitoring required, including labs and PFTs. I also recommended routine sunscreen use with exposure to sun and yearly eye exams. Baseline labs, PFTs and CXR have been done. To start amiodarone loading of 200 mg twice daily for 4 we eks or until cardioversion at which time she will be decreased to a maintenance dose of 200 mg daily. Discussed interaction with warfarin and amiodarone and need to test INR frequently until stable. Likely will need slight decrease in warfarin dose. Plan for cardioversion in 4 weeks as long as INRs remain greater than sign 2.0. Do not take any metoprolol the morning of cardioversion. She was reassured that atrial fibrillation is not life-threatening, but carries an increased risk for stroke. She has a [id number]-XGFs score of 5 for age 65-74, female gender, CAD, hypertension, and diabetes; long-term oral anticoagulation therapy is recommended per current guidelines. We discussed alternatives to warfarin, particularly Eliquis 5 mg twice daily. She has recently been sensitive to medications, primarily with GI issues, and her manager beverage is going to be making some changes in her diabetic management, so we decided for the time being to continue with warfarin. INR today = 2.2 on a current warfarin dose of 5 mg on Wednesday, Wednesday, and Wednesday with 2.5 mg ROW. She was instructed tocontinue with weekly INRs in preparation for cardioversion. 2. Obstructive sleep apnea: Consistent use of CPAP nightly. 3. Severe aortic stenosis status post TAVR: Has had an uneventful recovery and reported significant symptomatic improvement until element of atrial fibrillation. 4. Coronary artery disease: Status post stent [...] exam today. Follow-up with Roland Salazar CNP 3-4 weeks after cardioversion. Subjective: Marci Diaz, a very pleasant 67-year-old woman, comes in today for urgent follow-up of atrial fibrillation. She was newly diagnosed with atrial fibrillation on 07/22/2017, documented at cardiac rehab with ventricular rates between 110 and 130, associated with symptoms of dyspnea on exertion and fatigu e. She was started on warfarin for stroke prophylaxis once INRs were therapeutic for an appropriate amount of time, underwent cardioversion on 08/26/2017. She had underlying sinus bradycardia in the 50son very low-dose metoprolol. She has a history of obstructive sleep apnea for which she wears CPAP nightly, coronary artery disease status post stent to the LAD in May 2017, type 2 diabetes, hypertension, and hyperlipidemia. She also has a history of severe aortic stenosis for which she underwent TAVR on 07/06/2017 with subsequent improvement in symptoms until recurrence of A. fib. Marci states that she felt better after cardioversion, but it a few days with certain she was back in A. fib. This was confirmed at cardiac rehab on 08/30/2017. She gets short of breath with fairly minimal activity and is quite tired. She denies chest discomfort, palpitations, shortness of breath at rest, paroxysmal nocturnal dyspnea, orthopnea, lightheadedness, dizziness, pre- syncope, or syncope. Shealso has been having a slight bloody nose on the combination of warfarin and Plavix. She inquires asto alternatives to warfarin. Medical, surgical, family, social history, and medications were reviewed and updated as necessary. Patient Active Problem List Diagnosis ??? HLD (hyperlipidemia) ??? CASTRO (dyspnea on exertion) ??? Coronary artery disease involving [place] coronary artery of [place] heart, angina presence unspecified ??? DEDE on [...] Coronary Angiogram; Surgeon: Ankush Martinez MD; Location: [facility] Film Library Clerk; Service: ??? CV TRANSFEMORAL TRANSCATHETER VALVE REPLACEMENT N/A 07/06/2017 Procedure: Transfemoral Transcatheter Aortic Valve Replacement; Surgeon: Ankush Martinez MD; Location: [facility] Film Library Clerk; Service: ??? knee replacements Bilateral Allergies Allergen Reactions ??? Lisinopril Cough ??? Metformin Nausea And Vomiting ??? Erythromycin Base Rash Current Outpatient Prescriptions Medication Sig Dispense Refill ??? BD INSULIN PEN NEEDLE UF MINI 31 gauge x 3/16 Ndle USE 4-5 PER DAY UTD 0 ??? BD INSULIN PEN NEEDLE UF SHORT 31 gauge x 16 Ndle USE WITH TOUJEO AND VICTOZA BID 3 ??? celecoxib (CELEBREX) 200 MG capsule Take 200 mg by mouth daily. ??? clopidogrel (PLAVIX) 75 mg tablet TAKE 1 TABLET BY MOUTH EVERY DAY 90 tablet 3 ??? CRESTOR 10 mg tablet Take 10 mg by mouth daily. ??? insulin aspart (NOVOLOG) 100 unit/mL injection Inject 6-10 Units under the skin 3 (three) times a day before meals. ??? LANTUS SOLOSTAR 100 unit/mL (3 mL) pen 30 Units 2 (two) times a day. ??? losartan (COZAAR) 50 MG tablet Take 50 mg by mouth daily. ??? metoprolol tartrate (LOPRESSOR) 50 MG tablet Take 0.5 tablets (25 mg total) by mouth 2 (two) times a day. 180 tablet 1 ??? sertraline (ZOLOFT) 100 MG tablet Take 50 mg by mouth daily. Patient takes 50mg daily ??? warfarin (COUMADIN) 5 MG tablet TAKE 1 TABLET(5 MG) BY MOUTH DAILY. ADJUST DOSE BASED ON INR RESULTS DIRECTED 30 tablet 0 ??? amiodarone (PACERONE) 200 MG tablet TAKE 1 TABLET BY MOUTH TWICE DAILY X 4 WEEKS UNTIL CARDIOVERSION 180 tablet 0 No current facility-administered medications for this visit. Family History Problem Relation Age of Onset ??? Diabetes Father ??? Heart disease Father ??? Cancer Brother esophageal ??? Urolithiasis Neg Hx ??? Clotting disorder Neg Hx ??? Gout Neg Hx Social History Substance Use Topics ??? Smoking status: Never Smoker ??? Smokeless tobacco: Never Used ??? Alcohol use No Review of Systems: General: WNL Eyes: WNL Ears/Nose/Throat: WNL Lungs: WNL Heart: WNL Stomach: WNL Bladder: WNL Muscle/Joints: WNL Skin: WNL Nervous System: WNL Mental Health: WNL Blood: WNL Objective: BP 128/78 (Patient Site: Left Arm, Patient Position: Sitting, Cuff Size: Adult Large) Pulse 88 Resp 18 Ht 5' 3 (1.6 m) Wt (!) 283 lb (128.4 kg) BMI 50.13 kg/m2 Physical Exam General Appearance: Alert, well-appearing, in no acute distress. HEENT: Atraumatic, normocephalic; no scleral icterus, EOM intact, PERRL; the mucous membranes were pink and moist. Chest: Chest symmetric, spine straight. Lungs: Respirations unlabored; the lungs are clear to auscultation. Cardiovascular: Auscultation reveals normal first and second heart sounds with no murmurs, rubs, or gallops. Irregularly irregular rate and rhythm. No JVD. Radial and posterior tibial pulses are intact. Abdomen: Obese, soft, nontender, nondistended, bowel sounds present. Extremities: No cyanosis, clubbing, or edema. Musculoskeletal: Moves all extremities. Skin: No xanthelasma. Neurologic: Mood and affect are appropriate. Oriented to person, place, time, and situation. Cardiographics (personally reviewed) ECG done 08/30/2017 in cardiac rehab shows [...] aortic valve is now present, replacing stenotic [place] valve Lab Review Lab Results Component Value [...] 08/05/2017 Lab Results Component Value Date INR 2.20 (!) 09/01/2017 INR 2.60 (!) 08/26/2017 INR 2.3 08/23/2017 TSH done at [facility] on 03/19/17 2.72 Greater than 45 minutes were spent face to face in this visit with more than 50% of the time discussing diagnoses as listed above, counseling, and coordination of care. Ruby Kirk CNP [facility], Electrophysiology [phone] This note has been dictated using voice recognition software. Any grammatical, typographical, or context distortions are unintentional and inherent to the software. SETTER documented in this encounter Plan of Treatment Not on filedocumented as of this encounter Procedures Procedure Name Priority Date/Time Associated Diagnosis Comme nts INR POINT OF CARE Routine 09/01/2017 3:01 PM Resu lts for this PROP SETTER procedure are i n the results section. documented in this encounter Results (ABNORMAL) INR point of care (09/01/2017 3:01 PM PROP SETTER) P athologist Signature POC INR 2.20 (A) 0.90 - 1.10 09/01/2017 3:01 PM PROP SETTER Comment: TAKE 1 TABLET(5 MG) BY MOUTH DA MANOJ. ADJUST DOSE BASED ON INR RESULTS DIRECTED Specimen (Source) Anatomical Collection Method Collection Time Re ceived Time Location / / Volume Laterality Blood specimen 09/01/2017 3:01 PM (specimen) PROP SETTER Ruby Kirkjosé antonio MOYA CNP LAB - BLOOD ORDERABLES documented in this encounter Visit Diagnoses Diagnosis Persistent atrial fibrillation (H) Atrial fibrillation Chronic diastolic congestive heart failu re (H) Chronic diastolic heart failure Coronary artery disease involving [place] coronary artery of [place] heart, angina presence unspecified Essential hypertension Unspecified essential hypertension DEDE on CPAP Obstructive sleep apnea (adult) (pediatr ic) documented in this encounter Care Teams Sprinkler Irrigation Equipment Mechanic Relationship Specialty Start Date End Date Elyse Paredes MD PCP - General Family Practice 12/22/13 04/21/22 [address] [place] [address] documented as of this encounter
--- OUTSIDE RECORDS SUMMARY | 2022-07-02 13:43 | XMS_ITS | Encounter Summary ---
:1950 Author Organization [place] Address [address] [place] [address] Care Team Providers Name Role Phone Dagmar Kang MD Unavailable Elyse Paredes MD Primary Care Provider Dagmar Kang MD Unavailable Raghu Bae MD Primary Care Provider [phone] Nicole Salazar APRN SENIOR SERVICE AIDE Unavailable [phone] Encounter Details Date Type Department Care Team Description 08/09/2017 Records - [facility] CONVERSION Scan, Non-Provider Social History Tobacco Use Types Packs/Day Years Used Date Smoking Tobacco: Never Assessed Sex Assigned at Date Recorded Not on file documented as of this encounter Plan of Treatment Not on filedocumented as of this encounter Visit Diagnoses Not on filedocumented in this encounter Care Teams Rubber Attacher Relationship Specialty Start Date End Date Elyse Paredes MD PCP - General Family Practice 12/22/13 04/21/22 [address] [place] [address] Raghu Bae PCP - General Emergency Medicine 04/22/22 MD [place] [address] [place] [address] Dagmar Kang MD Assigned Heart and 02/14/21 02/27/22 [address] [facility], Vascular Provider [address] [place] [address] Dagmar Kang MD Assigned Heart and 03/21/22 04/24/22 [address] [facility], Vascular Provider [address] [place] [address] Nciole Salazar, Assigned Heart and 04/25/22 MANAGER TRAVEL SENIOR SERVICE AIDE Vascular Provider [address] [facility] [address] [place] [address] documented as of this encounter
--- OUTSIDE RECORDS SUMMARY | 2022-07-02 13:43 | XMS_ITS | Encounter Summary ---
:1950 Author Organization [place] Address [address] [place] [address] Care Team Providers Name Role Phone Elyse Paredes MD Primary Care Provider Encounter Details Date Type Department Care Team Description 08/11/2017 Ambulatory - [facility] S/P TAVR (transcatheter aort ic valve replacement); [address] S/[place] [address] Social History Tobacco Use Types [...] - - Weight 127 kg (280 lb) 08/11/2017 11:00 AM LOG SKIDDER Height - - Body Mass Index 51.21 08/05/2017 10:47 AM LOG SKIDDER documented in this encounter Plan of Treatment Not on filedocumented as of this encounter Procedures Procedure Name Priority Date/Time Associated Diagnosis Comme nts GLUCOSE BY METER Routine 08/11/2017 11:59 AM Resu lts for this POCT LOG SKIDDER procedure are i n the results section. documented in this encounter Results Glucose by meter POCT (08/11/2017 11:59 AM LOG SKIDDER) P athologist Signature GLUCOSE BY 176 mg/dL 08/11/2017 [facility] METER POCT 11:59 AM [facility] POCT RESULTS Comment: Reference Ranges ? [...] Location / / Volume Laterality Blood specimen 08/11/2017 11:59 8 6:39 (specimen) AM LOG SKIDDER AM LOG SKIDDER Historical Provider LAB - ENTER/EDIT POCT Performing Organization Address City/State/ZIP Code Phon e Number [facility] POCT RESULTS [address] [place] [address] documented in this encounter Visit Diagnoses Diagnosis S/P TAVR (transcatheter aortic valve rep lacement) S/P coronary artery stent placement Postsurgical percutaneous transluminal c oronary angioplasty status documented in this encounter Care Teams Armature Winder Repairer Relationship Specialty Start Date End Date Elyse Paredes MD PCP - General Family Practice 12/22/13 04/21/22 [address] [place] [address] documented as of this encounter
--- OUTSIDE RECORDS SUMMARY | 2022-07-02 13:43 | XMS_ITS | Encounter Summary ---
:1950 Author Organization [facility] Address [address] [place] [address] Care Team Providers Name Role Phone Elyse Paredes MD Primary Care Provider Encounter Details Date Type Department Care Team Description 08/26/2017 Anesthesia - [facility] Marquita Tovar MD [address] [address] (Wo rk) Social History Tobacco Use Types Packs/Day Years Used Date Smoking Tobacco: Never Assessed Sex Assigned at Date Recorded Not on file documented as of this encounter OR Notes Anesthesia Postprocedure Evaluation - Smita Guerrero MD - 08/26/2017 2:53 PM CST Patient: Marci Diaz * No procedures listed * Anesthesia type: general Patient location: Telemetry/Step Down Unit Last vitals: Vitals: 08/26/17 1350 BP: 93/55 Pulse: (!) 56 Resp: 21 Temp: SpO2: Post vital signs: stable Level of consciousness: [...] - No serious adverse event Additional Notes: L NEUTRALIZER Anesthesia Preprocedure Evaluation - Smita Guerrero MD - 08/26/2017 12:26 PM CST Anesthesia Evaluation Patient summary reviewed No history of anesthetic complications Airway Mallampati: III Neck ROM: limited Pulmonary - normal exam breath sounds clear to auscultation (+) COPD, shortness of breath, sleep apnea, Cardiovascular (+) hypertension, CAD, dysrhythmias, CHF, , ECG reviewed Rhythm: irregular Neuro/Psych Endo/Other (+) diabetes mellitus, obesity, GI/Hepatic/Renal (+) chronic renal disease, Dental - normal exam Anesthesia Plan Planned anesthetic: general mask ASA 3 Induction: intravenous Anesthetic plan and risks discussed with: patient Post-op plan: routine recovery L NEUTRALIZER documented in this encounter Miscellaneous Notes Anesthesia Care Transfer Note - Lenny Magallanes APRN CRNA - 08/26/2017 1:19 PM CST Last vitals: Vitals: 08/26/17 1141 Pulse: 84 Resp: 18 Temp: 37.3 ??C (99.2 ??F) SpO2: 95% Patient's level of consciousness is drowsy Spontaneous respirations: yes Maintains airway independently: yes Dentition unchanged: yes Oropharynx: oropharynx clear of all foreign objects QCDR Measures: ASA# 20 - Surgical Safety Checklist: WHO surgical safety checklist completed prior to induction PQRS# 430 - Adult PONV Prevention: NA - Not adult patient, not GA or 3 or more risk factors NOT present ASA# 8 - Peds PONV Prevention: NA - Not pediatric patient, not GA or 2 or more risk factors NOT present PQRS# 424 - Lori-op Temp Management: NA - MAC anesthesia or case < 60 minutes PQRS# 426 - PACU Transfer Protocol:NA - Patient did not go to PACU ASA# 14 - Acute Post-op Pain: NA - Patient under age 10y or did not go to PACU L NEUTRALIZER documented in this encounter Plan of Treatment Not on filedocumented as of this encounter Visit Diagnoses Not on filedocumented in this encounter Care Teams Auto Service Advisor Relationship Specialty Start Date End Date Elyse Paredes MD PCP - General Family Practice 12/22/13 04/21/22 [address] [place] [address] documented as of this encounter
--- OUTSIDE RECORDS SUMMARY | 2022-07-02 13:43 | XMS_ITS | Encounter Summary ---
:1950 Author Organization [facility] Address [address] [place] [address] Care Team Providers Name Role Phone Elyse Paredes MD Primary Care Provider Encounter Details Date Type Department Care Team Description 08/16/2017 Ambulatory - [facility] S/P TAVR [address] (transcatheter aortic [place], [place] valve replace ment) [id number] Social History [...] - - Weight 127 kg (280 lb) 08/16/2017 11:00 AM ASSISTANT SECRETARY Height - - Body Mass Index 51.21 08/05/2017 10:47 AM ASSISTANT SECRETARY documented in this encounter Plan of Treatment Not on filedocumented as of this encounter Visit Diagnoses Diagnosis S/P TAVR (transcatheter aortic valve rep lacement) documented in this encounter Care Teams Automobile Radio Repairer Relationship Specialty Start Date End Date Elyse Paredes MD PCP - General Family Practice 12/22/13 04/21/22 [address] [place], [place] [id number] documented as of this encounter
--- OUTSIDE RECORDS SUMMARY | 2022-07-02 13:43 | XMS_ITS | Encounter Summary ---
:1950 Author Organization [facility] Address [address] [place] [address] Care Team Providers Name Role Phone Elyse Paredes MD Primary Care Provider Encounter Details Date Type Department Care Team Description 08/[facility]/2017 [facility] [address] (transcatheter aortic [place], [place] valve replace ment) [id number] Social History [...] - Inhaled Oxygen Concentration - - Weight 126.6 kg (279 lb) 08/06/2017 11:00 AM RELAY DISPATCHER Height - - Body Mass Index 51.03 08/05/2017 10:47 AM RELAY DISPATCHER documented in this encounter Plan of Treatment Not on filedocumented as of this encounter Visit Diagnoses Diagnosis S/P TAVR (transcatheter aortic valve rep lacement) documented in this encounter Care Teams Clay Press Operator Relationship Specialty Start Date End Date Elyse Paredes MD PCP - General Family Practice 12/22/13 04/21/22 [address] [place], [place] [id number] documented as of this encounter
--- OUTSIDE RECORDS SUMMARY | 2022-07-02 13:43 | XMS_ITS | Encounter Summary ---
:1950 Author Organization [facility] Address [address] [place] [address] Care Team Providers Name Role Phone Elyse Paredes MD Primary Care Provider Encounter Details Date Type Department Care Team Description 08/23/2017 [facility] [address] (transcatheter aortic [place], [place] valve replace ment) [id number] Social History [...] - - Weight 128.4 kg (283 lb) 08/23/2017 11:00 AM CORPORATE TREASURY ANALYST Height - - Body Mass Index 51.76 08/05/2017 10:47 AM CORPORATE TREASURY ANALYST documented in this encounter Plan of Treatment Not on filedocumented as of this encounter Visit Diagnoses Diagnosis S/P TAVR (transcatheter aortic valve rep lacement) documented in this encounter Care Teams Solo Truck Driver Relationship Specialty Start Date End Date Elyse Paredes MD PCP - General Family Practice 12/22/13 04/21/22 [address] [place], [place] [id number] documented as of this encounter
--- OUTSIDE RECORDS SUMMARY | 2022-07-02 13:43 | XMS_ITS | Encounter Summary ---
:1950 Author Organization [facility] Address [address] [place] [address] Care Team Providers Name Role Phone Elyse Paredes MD Primary Care Provider Encounter Details Date Type Department Care Team Description [facility]2017 [facility] (transcatheter aort ic valve replacement); [address] [place] [phone] Social History Tobacco Use Types Packs/Day Years Used Date Smoking Tobacco: Never Assessed Sex Assigned at Date Recorded Not on file documented as of this encounter Last Filed Vital Signs Vital Sign Reading Time Taken Comments Blood Pressure - - Pulse - - Temperature - - Respiratory Rate - - Oxygen Saturation - - Inhaled Oxygen Concentration - - Weight 127.9 kg (282 lb) 08/25/2017 11:00 AM WASTEWATER DESIGN ENGINEER Height - - Body Mass Index 51.58 08/05/2017 10:47 AM WASTEWATER DESIGN ENGINEER documented in this encounter Plan of Treatment Not on filedocumented as of this encounter Visit Diagnoses Diagnosis S/P TAVR (transcatheter aortic valve rep lacement) S/P coronary artery stent placement Postsurgical percutaneous transluminal c oronary angioplasty status documented in this encounter Care Teams Commercial Lines Sales Executive Relationship Specialty Start Date End Date Elyse Paredes MD PCP - General Family Practice 12/22/13 04/21/22 [address] [place] [address] documented as of this encounter
--- OUTSIDE RECORDS SUMMARY | 2022-07-02 13:43 | XMS_ITS | Encounter Summary ---
:1950 Author Organization [facility] Address [address] [place] [address] Care Team Providers Name Role Phone Elyse Paredes MD Primary Care Provider Reason for Visit Reason Comments Other Encounter Details Date Type Department Care Team Description 09/01/2017 [facility] Ruby Kirk, Other [facility] [address] [facility], [address] [phone] [place], [place] [phone] Social History Tobacco Use Types Packs/Day Years Used Date Smoking Tobacco: Never Assessed Sex Assigned at Date Recorded Not on file documented as of this encounter Plan of Treatment Not on filedocumented as of this encounter Visit Diagnoses Diagnosis Persistent atrial fibrillation (H) Atrial fibrillation documented in this encounter Care Teams Circle Shear Operator Relationship Specialty Start Date End Date Elyse Paredes MD PCP - General Family Practice 12/22/13 04/21/22 [address] [place] [address] documented as of this encounter
--- OUTSIDE RECORDS SUMMARY | 2022-07-02 13:43 | XMS_ITS | Encounter Summary ---
:1950 Author Organization [facility] Address [address] [place] [id number] Care Team Providers Name Role Phone Elyse Paredes MD Primary Care Provider Encounter Details Date Type Department Care Team Description 08/26/2017 Hospital Encounter [facility] Hommerding, J tyra Ng APRN LEATHER SHAVER [address] [facility] [address] [address] [place], [place] [id number] Persistent atrial SPECIAL CARE Lm Kiser MD [address] [facility] [address] [place], [place] [id number] fibrillation (H) Social History Tobacco Use Types Packs/Day Years Used Date Smoking Tobacco: Never Assessed Sex Assigned at Date Recorded Not on file documented as of this encounter Last Filed Vital Signs Vital Sign Reading Time Taken Comments Blood Pressure - - Pulse - - Temperature - - Respiratory Rate - - Oxygen Saturation - - Inhaled Oxygen Concentration - - Weight 129.9 kg (286 lb 6 oz) 08/26/2017 11:41 AM CLASSIFICATION INSPECTOR Height 160 cm (5' 3) 08/26/2017 11:41 AM CLASSIFICATION INSPECTOR Body Mass Index 50.73 08/26/2017 11:41 AM CLASSIFICATION INSPECTOR documented in this encounter Medications at Time [...] mouth daily. documented as of this encounter Progress Notes Arleth Saravia RN - 08/26/2017 3:20 PM CST Patient discharged to home after successful cardioversion Vital signs stable Alert/oriented Ate a good lunch Up ambulating All discharge orders including follow ups and medication changes explained and understood SIFICATION INSPECTOR Arleth Saravia RN - 08/26/2017 11:45 AM CST Patient is admitted this morning for an elective cardioversion Friend is present at the bedside Alert/oriented Vital signs are stable Heart rhythm atrial fibrillation All learning needs have been addressed Patient is prepped and ready for procedure SIFICATION INSPECTOR documented in this encounter H&P Notes Bianca Salazar APRN CNP - 08/26/2017 3:01 PM CST I have performed an assessment and examined the patient, as necessary, to update the patient's current status that may have changed since the prior History and Physical. INR therapeutic today. States that she took only metoprolol tartrate 25 mg this morning as instructed. SIFICATION INSPECTOR documented in this encounter Procedure Notes Bianca Salazar, GRIFFIN LEATHER SHAVER - 08/26/2017 3:02 PM CST EP Cardioversion External Date/Time: 08/26/2017 3:02 PM Performed by: BIANCA SALAZAR. Authorized by: BIANCA SALAZAR Consent: Verbal consent obtained. Consent given by: patient Patient identity confirmed: verbally with patient and arm band Time out: Immediately prior to procedure a time out was called to verify the correct patient, procedure, equipment, clerical support specialist and site/side marked as required. Sedation: Patient sedated: yes Cardioversion basis: elective Date: 08/26/2017 Preprocedure Dx: Persistent atrial fibrillation Postprocedure: Successful conversion to normal sinus rhythm from persistent atrial fibrillation. Brief History: History of severe aortic stenosis and had Elly on 07/06/2017. She then had symptoms of sudden onset of shortness of breath with exertion on July 22 and noted to be on follow-up to [facility] with RVR. She usually has a tendency for lower heart rates in regular rhythm. She continued to have dyspnea on exertion and fatigue. She is on warfarin with therapeutic INRs. Today INR 2.6 August 23 INR 2.3 August 16 INR 4.4 August 09 INR 3.0 August 06 INR 3.1 and July 27 INR 1.6. Instructed to decrease metoprolol tartrate from 50 mg twice daily to 25 mg twice daily the morning of cardioversion. Supervisory Clerk: Roland Salazar RN LEATHER SHAVER Methods: Pause for cause done. Then Marci Diaz taken in fasting nonsedated state and underwent brief deep anesthesia per anesthesia service. At 1317 received 300 joules of single, biphasic, synch DC CV shock between right parasternal and left infrascapular paddle position with hands free pads and had prompt lutheran of sinus bradycardia in the 50s. Impression: Successful conversion to sinus rhythm Full neurological recovery after procedure. Pt and family updated after procedure. Plan: Followup in clinic with me in 2-3 weeks and will repeat INR then. Prior to Admission medications Medication Sig Start Date End Date Taking? Authorizing Provider celecoxib (CELEBREX) 200 MG capsule Take 200 mg by mouth daily. 05/20/15 Yes PROVIDER, HISTORICAL clopidogrel (PLAVIX) 75 mg tablet TAKE 1 TABLET BY MOUTH EVERY DAY 05/13/17 Yes Ankush Martinez MD CRESTOR 10 mg tablet Take 10 mg by mouth daily. 06/28/15 Yes PROVIDER, HISTORICAL insulin aspart (NOVOLOG) 100 unit/mL injection Inject 6-10 Units under the skin 3 (three) times a day before meals. Yes PROVIDER, HISTORICAL LANTUS SOLOSTAR 100 unit/mL (3 mL) pen 30 Units 2 (two) times a day. 06/28/15 Yes PROVIDER, HISTORICAL losartan (COZAAR) 50 MG tablet Take 50 mg by mouth daily. 05/22/15 Yes PROVIDER, HISTORICAL sertraline (ZOLOFT) 100 MG tablet Take 50 mg by mouth daily. Patient takes 50mg daily 05/20/15 Yes PROVIDER, HISTORICAL warfarin (COUMADIN) 5 MG tablet TAKE 1 TABLET(5 MG) BY MOUTH DAILY. ADJUST DOSE BASED ON INR RESULTSAS DIRECTED 07/23/17 Yes Ashley Harvey PA-C metoprolol tartrate (LOPRESSOR) 50 MG tablet TAKE 1 TABLET BY MOUTH TWICE DAILY 07/29/17 08/26/17 YesBianca Salazar CNP BD INSULIN PEN NEEDLE UF MINI 31 gauge x 316 Ndle USE 4-5 PER DAY UTD 07/25/17 PROVIDER, HISTORICAL BD INSULIN PEN NEEDLE UF SHORT 31 gauge x 12/15 Ndle USE WITH TOUJEO AND VICTOZA BID 10/12/16 PROVIDER, HISTORICAL metoprolol tartrate (LOPRESSOR) 50 MG tablet Take 0.5 tablets (25 mg total) by mouth 2 (two) times aday. 08/26/17 Bianca Salazar CNP aspirin 81 mg chewable tablet Chew 1 tablet (81 mg total) daily. 05/12/17 08/26/17 Dee Dee Sewell CNP Continue anticoagulation of warfarin 5 mg p.o. daily as current dose. After cardioversion and bradycardic states that she thinks she took 50 mg and set at 25 mg this morning. To make sure she decreasesto 25 mg p.o. daily. To call if lightheaded or dizzy. Continue all other meds as before. Twelve-lead EKG post cardioversion shows sinus bradycardia of 51. Completed return to work papers for her today after cardioversion and decided together to return to work without restrictions on October 04 if rhythm stable on follow-up in clinic in 2-3 weeks with me. Given return to work papers today completed. Discharge to home when stable and at least 1 hr after discharge. Bianca Salazar RN, LEATHER SHAVER 08/26/2017 SIFICATION INSPECTOR documented in this encounter Plan of Treatment Not on filedocumented as of this encounter Procedures Procedure Name Priority Date/Time Associated Diagnosis Comme nts ECG 12-LEAD WITH MUSE Routine 08/26/2017 2:10 Res ults for this ? PM CLASSIFICATION INSPECTOR procedure are in [facility] the results section. CARDIOVERSION EXTERNAL Routine 08/26/2017 10:55 Persistent atr ial Results for this AM CLASSIFICATION INSPECTOR fibrillation (H) procedure a re in the results section. documented in this encounter Results ECG 12-LEAD WITH MUSE (L[facility]) (08/26/2017 2:10 PM CLASSIFICATION INSPECTOR) [facility] gist Method Time Signature Systolic Blood mmHg 08/26/2017 HE RADIANT Pressure 4:38 PM CONVERSION CLASSIFICATION INSPECTOR Diastolic Blood mmHg 08/26/2017 HE RADIANT Pressure 4:38 PM CONVERSION CLASSIFICATION INSPECTOR Ventricular Rate 51 BPM 08/26/2017 HE RADIANT 4:38 PM CONVERSION CLASSIFICATION INSPECTOR Atrial Rate 51 BPM 08/26/2017 HE RADIANT 4:38 PM CONVERSION CLASSIFICATION INSPECTOR NM Interval 198 ms 08/26/2017 HE RADIANT 4:38 PM CONVERSION CLASSIFICATION INSPECTOR QRS Duration 92 ms 08/26/2017 HE RADIANT 4:38 PM CONVERSION CLASSIFICATION INSPECTOR QT 448 ms 08/26/2017 HE RADIANT 4:38 PM CONVERSION CLASSIFICATION INSPECTOR QTc 412 ms 08/26/2017 HE RADIANT 4:38 PM CONVERSION CLASSIFICATION INSPECTOR P [place] 60 degrees 08/26/2017 HE RADIANT 4:38 PM CONVERSION CLASSIFICATION INSPECTOR R AXIS 3 degrees 08/26/2017 HE RADIANT 4:38 PM CONVERSION CLASSIFICATION INSPECTOR T [place] 70 degrees 08/26/2017 HE RADIANT 4:38 PM CONVERSION CLASSIFICATION INSPECTOR Interpretation Sinus bradycardia 08/26/2017 HE RAD IANT ECG Poor R wave progression 4:38 PM CONVER CJ Otherwise normal ECG CLASSIFICATION INSPECTOR When compared with ECG of 05-AUG-2017 11:02, Sinus rhythm has replaced Atrial fibrillation Vent. rate has decreased BY ??34 BPM Nonspecific T wave abnormality now evident in Lateral leads Confirmed by [place] ??SADIA CLEMENTS LOC:JN ([id number]) on 018 4:38:02 PM Specimen Anatomical Collection Method Collection Time Receive d Time (Source) Location / / Volume Laterality 08/26/2017 2:10 PM 8 4:38 CLASSIFICATION INSPECTOR PM CLASSIFICATION INSPECTOR Bianca Salazar APRN LEATHER SHAVER ECG ORDERABLES Performing Organization Address City/State/ZIP Code Phon e Number HE CARDIOLOGY CONVERSION HE RADIANT CONVERSION Cardioversion External (08/26/2017 10:55 AM CLASSIFICATION INSPECTOR) Anatomical Region Laterality Modality Other Specimen (Source) Anatomical Collection Method Collection Time Re ceived Time Location / / Volume Laterality 07/29/2017 10:56 AM CLASSIFICATION INSPECTOR Narrative 08/26/2017 3:07 PM CLASSIFICATION INSPECTOR EP Cardioversion External Date/Time: 08/26/2017 3:02 PM Performed by: BIANCA SALAZAR Authorized by: BIANCA SALAZAR Consent: Verbal consent obtained. Consent given by: patient Patient identity confirmed: verbally wit h patient and arm band Time out: Immediately prior to procedure a time out was called to verify the correct patient, procedure, equipment, clerical support specialist and site/side marked as required. Sedation: Patient sedated: yes Cardioversion basis: elective Date: 08/26/2017 Preprocedure Dx: Persistent atrial fibri llation Postprocedure: Successful conversion to normal sinus rhythm from persistent atrial fibrillation. Brief History: ??History of severe aorti c stenosis and had Elly on 07/06/2017. ??She then had symptoms of sudden onset of shortness of breath with exertion on July 22 and noted to be on follow-up to be in A. fib with RVR. ??She usually galloway s a tendency for lower heart rates in regular rhythm. ??She continued to have dyspnea on exertion and fatigue. ??She is on warfarin with therapeutic INRs. ??Today INR 2.6 August 23 INR 2.3 August 16 INR 4.4 Januar y 8 INR 3.0 August 06 INR 3.1 and Decemb er 26 INR 1.6. Instructed to decrease metoprolol tartr ate from 50 mg twice daily to 25 mg twice daily the morning of cardioversion. Supervisory Clerk: Roland Salazar RN LEATHER SHAVER Methods: ??Pause for cause done. ??Then Marci Staley Anthonykev taken in fasting nonsedated state and underwent brief deep anesthesia per anesthesia service. ?? At 1317 received 300 joules of single, b iphasic, synch DC CV shock between right parasternal and left infrascapular paddle position with hands free pads and had prompt lutheran of sinus bradycardia in the 50s. ?? Impression: ??Successful conversion to s inus rhythm Full neurological recovery after procedu re. ??Pt and family updated after procedure. Plan: ??Followup in clinic with me in 2- 3 weeks and will repeat INR then. Prior to Admission medications ?? Medication Sig Start Date End Date Jaclyn g? Authorizing Provider celecoxib (CELEBREX) 200 MG capsule Take 200 mg by mouth daily. ??05/20/15 ??Yes PROVIDER, HISTORICAL clopidogrel (PLAVIX) 75 mg tablet TAKE 1 TABLET BY MOUTH EVERY DAY 05/13/17 ??Yes Ankush Martinez MD CRESTOR 10 mg tablet Take 10 mg by mouth daily. ??06/28/15 ??Yes PROVIDER, HISTORICAL insulin aspart (NOVOLOG) 100 unit/mL inj ection Inject 6-10 Units under the skin 3 (three) times a day before meals. ?? Yes PROVIDER, HISTORICAL LANTUS SOLOSTAR 100 unit/mL (3 mL) pen 3 0 Units 2 (two) times a day. ??06/28/15 ??Yes PROVIDER, HISTORICAL losartan (COZAAR) 50 MG tablet Take 50 m g by mouth daily. ??05/22/15 ??Yes PROVIDER, HISTORICAL sertraline (ZOLOFT) 100 MG tablet Take 5 0 mg by mouth daily. Patient takes 50mg daily 05/20/15 ??Yes PROVIDER, HISTORICAL warfarin (COUMADIN) 5 MG tablet TAKE 1 T ABLET(5 MG) BY MOUTH DAILY. ADJUST DOSE BASED ON INR RESULTS DIRECTED 07/23/17 ??Yes Ashley Harvey PA-C metoprolol tartrate (LOPRESSOR) 50 MG ta blet TAKE 1 TABLET BY MOUTH TWICE DAILY 07/29/17 08/26/17 Yes Bianca Salazar, LEATHER SHAVER BD INSULIN PEN NEEDLE UF MINI 31 gauge x 16 Ndle USE 4-5 PER DAY UTD 07/25/17 ?? PROVIDER, HISTORICAL BD INSULIN PEN NEEDLE UF SHORT 31 gauge x 16 Ndle USE WITH TOUJEO AND VICTOZA BID 10/12/16 ?? PROVIDER, HISTORICAL metoprolol tartrate (LOPRESSOR) 50 MG ta blet Take 0.5 tablets (25 mg total) by mouth 2 (two) times a day. 08/26/17 ?? Bianca Salazar CNP aspirin 81 mg chewable tablet Chew 1 tab let (81 mg total) daily. 05/12/17 08/26/17 ??Dee Dee Sewell CNP Continue anticoagulation of warfarin 5 m g p.o. daily as current dose. ??After cardioversion and bradycardic states that she thinks she took 50 mg and set at 25 mg this morning. ??To make sure she decrea ses to 25 mg p.o. daily. ??To call if li ghtheaded or dizzy. Continue all other meds as before. Twelve-lead EKG post cardioversion shows sinus bradycardia of 51. ?? Completed return to work papers for her today after cardioversion and decided together to return to work without restrictions on October 04 if rhythm stable on follow-up in clinic in 2-3 weeks with me. Given return to work papers today comple curtis. Discharge to home when stable and at [facility] 1 hr after discharge. Bianca Salazar RN, LEATHER SHAVER 08/26/2017 Procedure Note Provider, Historical - 01/08/2021Formatt ing of this note might be different from the original. EP Cardioversion External Date/Time: 08/26/2017 3:02 PM Performed by: BIANCA SALAZAR. Authorized by: BIANCA SALAZAR Consent: Verbal consent obtained. Consent given by: patient Patient identity confirmed: verbally wit h patient and arm band Time out: Immediately prior to procedure a time out was called to verify the correct patient, procedure, equipment, clerical support specialist and site/side marked as required. Sedation: Patient sedated: yes Cardioversion basis: elective Date: 08/26/2017 Preprocedure Dx: Persistent atrial fibri llation Postprocedure: Successful conversion to normal sinus rhythm from persistent atrial fibrillation. Brief History: History of severe aortic stenosis and had Elly on 07/06/2017. She then had symptoms of sudden onset of shortness of breath with exertion on July 22 and noted to be on follow-up to be in A. fib with RVR. She usually has a tendency for lower heart rates in regular rhythm. She continued to have dyspnea on exertion and fatigue. She is on warfarin with therapeutic INRs. Today INR 2.6 August 23 INR 2.3 August 16 INR 4.4 August 09 INR 3.0 August 06 INR 3.1 and July 27 INR 1.6. Instructed to decrease metoprolol tartr ate from 50 mg twice daily to 25 mg twice daily the morning of cardioversion. Supervisory Clerk: Roland Salazar RN LEATHER SHAVER Methods: Pause for cause done. Then Anna Diaz taken in fasting nonsedated state and underwent brief deep anesthesia per anesthesia service. At 1317 received 300 joules of single, b iphasic, synch DC CV shock between right parasternal and left infrascapular paddle position with hands free pads and had prompt lutheran of sinus bradycardia in the 50s. Impression: Successful conversion to sin us rhythm Full neurological recovery after procedu re. Pt and family updated after procedure. Plan: Followup in clinic with me in 2-3 weeks and will repeat INR then. Prior to Admission medications Medication Sig Start Date End Date Luisluis antonio mack? Authorizing Provider celecoxib (CELEBREX) 200 MG capsule Take 200 mg by mouth daily. 05/20/15 Yes PROVIDER, HISTORICAL clopidogrel (PLAVIX) 75 mg tablet TAKE 1 TABLET BY MOUTH EVERY DAY 05/13/17 Yes Ankush Martinez MD CRESTOR 10 mg tablet Take 10 mg by mouth daily. 06/28/15 Yes PROVIDER, HISTORICAL insulin aspart (NOVOLOG) 100 unit/mL inj ection Inject 6-10 Units under the skin 3 (three) times a day before meals. Yes PROVIDER, HISTORICAL LANTUS SOLOSTAR 100 unit/mL (3 mL) pen 3 0 Units 2 (two) times a day. 06/28/15 Yes PROVIDER, HISTORICAL losartan (COZAAR) 50 MG tablet Take 50 m g by mouth daily. 05/22/15 Yes PROVIDER, HISTORICAL sertraline (ZOLOFT) 100 MG tablet Take 5 0 mg by mouth daily. Patient takes 50mg daily 05/20/15 Yes PROVIDER, HISTORICAL warfarin (COUMADIN) 5 MG tablet TAKE 1 T ABLET(5 MG) BY MOUTH DAILY. ADJUST DOSE BASED ON INR RESULTS DIRECTED 07/23/17 Yes Ashley Harvey PA-C metoprolol tartrate (LOPRESSOR) 50 MG ta blet TAKE 1 TABLET BY MOUTH TWICE DAILY 07/29/17 08/26/17 Yes Bianca Salazar CNP BD INSULIN PEN NEEDLE UF MINI 31 gauge x 10/15 Ndle USE 4-5 PER DAY UTD 07/25/17 PROVIDER, HISTORICAL BD INSULIN PEN NEEDLE UF SHORT 31 gauge x 12/15 Ndle USE WITH TOUJEO AND VICTOZA BID 10/12/16 PROVIDER, HISTORICAL metoprolol tartrate (LOPRESSOR) 50 MG ta blet Take 0.5 tablets (25 mg total) by mouth 2 (two) times a day. 08/26/17 Bianca Salazar CNP aspirin 81 mg chewable tablet Chew 1 tab let (81 mg total) daily. 05/12/17 08/26/17 Dee Dee Sewell CNP Continue anticoagulation of warfarin 5 m g p.o. daily as current dose. After cardioversion and bradycardic states that she thinks she took 50 mg and set at 25 mg this morning. To make sure she decreases to 25 mg p.o. daily. To call if lightheaded or dizzy. Continue all other meds as before. Twelve-lead EKG post cardioversion shows sinus bradycardia of 51. Completed return to work papers for her today after cardioversion and decided together to return to work without restrictions on Wednesday, October 04 if rhythm stable on follow-up in clinic in 2-3 weeks with me. Given return to work papers today comple curtis. Discharge to home when stable and at [facility] 1 hr after discharge. Bianca Salazar RN, LEATHER SHAVER 08/26/2017 Bianca Salazar SUPPORT SERVICES SPECIALIST LEATHER SHAVER CV ELECTROPHYSIOLOGY ORDER [place] documented in this encounter Visit Diagnoses Diagnosis Persistent atrial fibrillation (H) Atrial fibrillation documented in this encounter Care Teams Square Shear Operator Relationship Specialty Start Date End Date Elyse Paredes MD PCP - General Family Practice 12/22/13 04/21/22 [address] [place], [place] [phone] documented as of this encounter
--- OUTSIDE RECORDS SUMMARY | 2022-07-02 13:43 | XMS_ITS | Encounter Summary ---
:1950 Author Organization [facility] Address [address] [place] [id number] Care Team Providers Name Role Phone Elyse Paredes MD Primary Care Provider Encounter Details Date Type Department Care Team Description 08/13[facility]2017 [facility] T[facility]R (transcatheter aort ic valve replacement); [address] S/[place] coronary [place] [phone] Social History Tobacco Use Types Packs/Day Years [...] - - Weight 127 kg (280 lb) 08/13/2017 11:00 AM TECHNICAL SERVICES REP Height - - Body Mass Index 51.21 08/05/2017 10:47 AM TECHNICAL SERVICES REP documented in this encounter Plan of Treatment Not on filedocumented as of this encounter Visit Diagnoses Diagnosis S/P TAVR (transcatheter aortic valve rep lacement) S/P coronary artery stent placement Postsurgical percutaneous transluminal c oronary angioplasty status documented in this encounter Care Teams Aircraft Dispatcher Relationship Specialty Start Date End Date Elyse Paredes MD PCP - General Family Practice 12/22/13 04/21/22 [address] [place] [address] documented as of this encounter
--- OUTSIDE RECORDS SUMMARY | 2022-07-02 13:43 | XMS_ITS | Encounter Summary ---
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 Height - - Body Mass Index 51.58 08/05/2017 10:47 AM PROJECT MANAGER INDUSTRIAL documented in this encounter Progress Notes Historical Provider - 08/18/2017 11:00 AM CST ITP ASSESSMENT Assessment Day: 30 Day Session Number: 10 Precautions: standard cardiac Diagnosis: Valve;Stent (TAVR) Risk Stratification: High Referring Provider: Ankush Martinez MD EXERCISE Exercise Assessment: Reassessment 6 Minute Walk Test Pre Pre Exercise HR: 110 (walk stopped after 1' due to increased HR of 163 bpm.) Pre Exercise BP: 111/65 (96% on room air) Peak Peak HR: 112 Peak BP: 120/65 (97%) Peak feet: 200 Peak O2 SAT: 97% Peak RPE: 12-13 Peak MPH: 0.38 Symptoms: Peak Symptoms: Pt asymptomatic. 5 mins. Post 5 Min Post HR: 114 5 Min Post BP: 114/68 Exercise Plan Goals Next 30 days ADL'S: Patient will climb 14 stairs to her bedroom without SOB. Leisure: Patient will engage in crafting activities without any symptoms of overexertion. 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 Education Goals: Patient can state cardiac s/s and appropriate emergency response.;Has system for taking medication.;Medication review Education Goals Met: Patient can state cardiac s/s and appropriate emergency response.;Has system for taking medication.;Medication review. Goals Met Initial ADL's goals met: Reports felt good [...] decreased activity tolerance. Exercise Prescription Exercise Mode: Treadmill;Bike;Nustep Frequency: 2-3 times per week Duration: 30-40 minutes Intensity / THR: 20-30 beats above resting heart rate RPE 11-14 Progression / Met level: 3-4 MET level Resistive Training?: Yes Current Exercise (mins/week): 105 Interventions Home Exercise: Mode: walking Frequency: 3-4 times per week Duration: 10-20 minutes daily Education Material : Educational videos;Provide written material;Individual education and counseling;Offer educational classes Education Completed Exercise Education Completed: Cardiac Anatomy;Signs and Symptoms;Medication review;Emergency Plan;Home Exercise;Warm up/cool down;Benefits of Exercise;End point of exercise Exercise Follow-up/Discharge Follow up/Discharge: Has not initiated a home exercise program due to decreased tolerance and weather. Will encourage to continue to incorporate exercise into daily routine. NUTRITION Nutrition Assessment: Reassessment Nutrition Risk Factors: Nutrition Risk Factors: Diabetes;Dyslipidemia;Overweight HbA1c: 7.5 Monitors blood sugar at home: Yes Frequency: 3-4 x daily Cholesterol: 150 LDL: 78 HDL: 45 Triglycerides: 136 Nutrition Plan Interventions Nutrition Interventions: Completed (Had dietary consult at advertising sales manager office ) Education Completed Goals Nutrition Goals (Next 30 days): Patient can identify their risk factors for CAD;Patient will follow a low sodium diet;Patient will follow a low saturated fat diet;Patient will lose weight Goals Met Nutrition Goals Met: Patient can identify their risk factors for CAD;Patient follows a low sodium diet;Patient states following a low saturated fat diet Height, Weight, and BMI Weight: 282 lb (127.9 kg) Height: 5' 2 (1.575 m) BMI: 51.57 Nutrition Follow-up Follow-up/Discharge: Ate at a [employer] restaurant earlier in the week and weight is up to 2lbs. Iwas amazed at how salty it tasted. I am obviously retraining my taste buds. Other Risk Factors Other Risk Factor Assessment: Reassessment HTN Risk Factor: Hypertension Pre Exercise BP: 128/64 Post Exercise BP: 130/72 Hypertension Plan Goals HTN Goals: Follow low sodium diet;Take medication as prescribed Goals Met HTN Goals Met: Follow low sodium diet;Take medication as prescribed;Exercises regularly HTN Interventions HTN Interventions: Therapist/patient discussion;Offer educational videos;Provide written material HTN Education Completed HTN Education Completed: Low sodium diet;Risk factor overview;Medication review Tobacco Risk Factor: NA Risk Factor Follow-up Follow-up/Discharge: Reports has had dietary consult at advertising sales manager office and feels comfortable with knowledge. Is aware of chipper machine operator available here if has further questions. PSYCHOSOCIAL Psychosocial Assessment: Reassessment [facility] Q of L Summary Score: 28 ANA-D Score: 6 Psychosocial Risk Factor: Stress Psychosocial Plan Interventions Interventions: Offer educational videos and classes;Provide written material;Individual education and counseling Education Completed Education Completed: Effects of stress on body Goals Goals (Next 30 days): Identified Support system;Identify stressors;Practicing stress management skills Goals Met Goals Met: Identified Support system;Identify stressors Psychosocial Follow-up Follow-up/Discharge: Reports stress level has been reduced since not back to work. Plans on retiringin December and reports anticipates will adjust nicely to group home. Patient involved in Goal setting?: Yes Signature: Date: Time: documented in this encounter Plan of Treatment Not on filedocumented as of this encounter Visit Diagnoses Diagnosis S/P TAVR (transcatheter aortic valve rep lacement) S/P coronary artery stent placement Postsurgical percutaneous transluminal c oronary angioplasty status documented in this encounter Care Teams Workforce Staffing Advisor Relationship Specialty Start Date End Date Elyse Paredes MD PCP - General Family Practice 12/22/13 04/21/22 [address] [place] [address] documented as of this encounter
--- OUTSIDE RECORDS SUMMARY | 2022-07-02 13:43 | XMS_ITS | Encounter Summary ---
:1950 Author Organization [facility] Address [address] [place] [address] Care Team Providers Name Role Phone Elyse Paredes MD Primary Care Provider Encounter Details Date Type Department Care Team Description 08/23/2017 Ambulatory - [facility] S/P TAVR [facility] r[facility] (transcatheter aortic [address] valve replacement) [place] [address] Social History Tobacco Use Types Packs/Day Years Used Date Smoking Tobacco: Never Assessed Sex Assigned at Date Recorded Not on file documented as of this encounter Progress Notes Gabrielle Golden RN - 08/23/2017 10:45 AM CST INR 2.3 will increase dose for this week to 5 mg M,T,W and F and 2.5 mg all other days. CV for 1-25 and retest on regular dose 5 mg M,W,F and 2.5 mg all other days on 09/06. After talking with pt and discussing history of greens/salads and medication change. Pt will continue with current diet and dosingof Warfarin. Continue with moderation of Vit K and green leafy vegetables. Cautioned to call with increase bruising or bleeding. Reminded to call with medication change especially antibiotic. Call withany questions or concerns or any up coming procedures. Cautioned about using Herbal medication. 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 documented in this encounter Results INR point of care (08/23/2017) P athologist Signature INR 2.3 Specimen (Source) Anatomical Location Collection Method / Collectio n Time Received Time / Laterality Volume Blood specimen 08/23/2017 (specimen) Ankush Martinez MD LAB - BLOOD ORDERABLES documented in this encounter Visit Diagnoses Diagnosis S/P TAVR (transcatheter aortic valve rep lacement) documented in this encounter Care Teams Quality Assurance Technician Relationship Specialty Start Date End Date Elyse Paredes MD PCP - General Family Practice 12/22/13 04/21/22 [address] [place] [address] documented as of this encounter
--- OUTSIDE RECORDS SUMMARY | 2022-07-02 13:43 | XMS_ITS | Encounter Summary ---
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 Historical Provider ECG ORDERABLES EKG CARDIAC - HIM SCAN (08/30/2017) Specimen (Source) Anatomical Location Collection Method / Collectio n Time Received Time / Laterality Volume Narrative This result has an attachment that is no t available. Historical Provider ECG ORDERABLES documented in this encounter Visit Diagnoses Diagnosis S/P TAVR (transcatheter aortic valve rep lacement) documented in this encounter Care Teams Computer Repairer Relationship Specialty Start Date End Date Elyse Paredes MD PCP - General Family Practice 12/22/13 04/21/22 [address] [place] [address] documented as of this encounter
--- OUTSIDE RECORDS SUMMARY | 2022-07-02 13:43 | XMS_ITS | Encounter Summary ---
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
--- OUTSIDE RECORDS SUMMARY | 2022-07-02 13:43 | XMS_ITS | Encounter Summary ---
:1950 Author Organization [facility] Address [address] [place] [address] Care Team Providers Name Role Phone Elyse Paredes MD Primary Care Provider Encounter Details Date Type Department Care Team Description 08/16/2017 Ambulatory - [facility] S/P TAVR [facility] (transcatheter aortic [address] valve replacement) [place] [address] Social History Tobacco Use Types Packs/Day Years Used Date Smoking Tobacco: Never Assessed Sex Assigned at Date Recorded Not on file documented as of this encounter Progress Notes Gabrielle Golden RN - 08/16/2017 10:45 AM CST INR 4.4 hold today and then 5 mg Wed and wed and 2.5 mg all other days. Retest in one week. After talking [...] coming procedures. Cautioned about using Herbal medication. 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 documented in this encounter Results INR point of care (08/16/2017) P athologist Signature INR 4.4 Specimen (Source) Anatomical Location Collection Method / Collectio n Time Received Time / Laterality Volume Blood specimen 08/16/2017 (specimen) Ankush Martinez MD LAB - BLOOD ORDERABLES documented in this encounter Visit Diagnoses Diagnosis S/P TAVR (transcatheter aortic valve rep lacement) documented in this encounter Care Teams Ball Holder Relationship Specialty Start Date End Date Elyse Paredes MD PCP - General Family Practice 12/22/13 04/21/22 [address] [place] [address] documented as of this encounter
--- OUTSIDE RECORDS SUMMARY | 2022-07-02 13:43 | XMS_ITS | Encounter Summary ---
:1950 Author Organization [place] Address [address] [place] [address] Care Team Providers Name Role Phone Elyse Paredes MD Primary Care Provider Reason for Visit Reason Comments Follow Up Encounter Details Date Type Department Care Team Description 08/05/2017 Office Visit - [facility] Michelle, Aortic v alvular stenosis; [facility] St. Ankush MD S/P TAVR (transcatheter aortic valve rep lacement) [address] [place] [id number] [phone] Social History Tobacco Use Types Packs/Day Years Used Date Smoking Tobacco: Never Assessed Sex Assigned at Date Recorded Not on file documented as of this encounter Last Filed Vital Signs Vital Sign Reading Time Taken Comments Blood Pressure - - Pulse - - Temperature - - Respiratory Rate - - Oxygen Saturation - - Inhaled Oxygen Concentration - - Weight 127.6 kg (281 lb 4.8 oz) 08/05/2017 10:47 AM PUBLIC ADDRESS SYSTEMS MECHANIC Height 157.5 cm (5' 2) 08/05/2017 10:47 AM PUBLIC ADDRESS SYSTEMS MECHANIC Body Mass Index 51.45 08/05/2017 10:47 AM PUBLIC ADDRESS SYSTEMS MECHANIC documented in this encounter Progress Notes Ankush Martinez MD - 08/05/2017 11:10 AM CST [facility] Note Assessment / Plan: Ms Diaz is doing reasonably well from the cardiac standpoint, being a month out from successful transcatheter aortic valve replacement for severe symptomatic aortic stenosis. She did notice a significant improvement in her symptoms after the procedure, but due to the onset of new atrial fibrillation, she has had some recurrence of fatigue and dyspnea on exertion. Her 30 day follow-up echocardiogram shows normal function of her aortic bioprosthesis, with a mean gradient of 19 mmHg. At this point, I would agree with the use of rate control anticoagulation as well as the planned cardioversion in the near future. She may also benefit from the use of amiodarone to decrease her paroxysms of atrial fibrillation, and perhaps increase her chance of a successful cardioversion. If she does have persistent atrial fibrillation, she could be considered for a pulmonary vein isolation, but her BMI will likely affect her long-term success rate of staying in sinus rhythm. Thank you for the opportunity to participate in the care of Marci Diaz. Please do not hesitate to call with any questions or concerns regarding her cardiovascular status. Subjective: It was a pleasure to see Marci Diaz at the [facility] [facility] for 30 day follow-up aftertranscatheter aortic valve replacement Marci Diaz is a pleasant 67 y.o. female who was diagnosed with severe symptomatic aortic stenosis in the fall 2016, and after a thorough multidisciplinary evaluation was felt to be a better candidatefor transcatheter approach, rather than open heart surgery, based in large part on her morbid obesity. She underwent her procedure on July 06, 2017, receiving a 23 mm S3 valve via the right transfemoral approach. Her postprocedural course was uneventful and she noticed a significant improvement in her symptoms almost right away, noting no shortness of breath and a better functional capacity. Unfortunately, she developed atrial fibrillation about 2 weeks after her valve replacement, and due to this, she has noticed some recurrent shortness of breath as well as fatigue. She has been started on rate control and anticoagulation regimen, and is in the process of being scheduled for cardioversion once he has completed 4 weeks of anticoagulation. Problem List: Patient Active Problem List Diagnosis ??? HLD (hyperlipidemia) ??? CASTRO (dyspnea on exertion) ??? Coronary artery disease involving makah coronary artery of makah heart, angina presence unspecified ??? DEDE on [...] DEDE on CPAP ??? Severe aortic stenosis Surgical History: Past Surgical History: Procedure Laterality Date ??? CARDIAC CATHETERIZATION 05/12/2017 ??? CV CORONARY ANGIOGRAM N/A 05/12/2017 Procedure: Coronary Angiogram; Surgeon: Ankush Martinez MD; Location: [facility] Window Covering Sales Consultant; Service: ??? CV TRANSFEMORAL TRANSCATHETER VALVE REPLACEMENT N/A 07/06/2017 Procedure: Transfemoral Transcatheter Aortic Valve Replacement; Surgeon: Ankush Martinez MD; Location: [facility] Window Covering Sales Consultant; Service: ??? knee replacements Bilateral Social History: Social History Social History ??? Marital status: Spouse name: N/A ??? Number of children: N/A ??? 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 Smoking status: Never Smoker ??? Smokeless tobacco: Never Used ??? Alcohol use No ??? Drug use: No ??? Sexual activity: Not on file Other Topics Concern ??? Not on file Social History Narrative Review of Systems: 12 organ system review done and negative except as noted in the HPI. Family History: Family History Problem Relation Age of Onset ??? Diabetes Father ??? Heart disease Father ??? Cancer Brother esophageal ??? Urolithiasis Neg Hx ??? Clotting disorder Neg Hx ??? Gout Neg Hx Allergies: Allergies Allergen Reactions ??? Lisinopril Cough ??? Metformin Nausea And Vomiting ??? Erythromycin Base Rash Medications: Current Outpatient Prescriptions Medication Sig Dispense Refill ??? aspirin 81 mg chewable tablet Chew 1 tablet (81 mg total) daily. 0 ??? BD INSULIN PEN NEEDLE [...] ??? metoprolol tartrate (LOPRESSOR) 50 MG tablet TAKE 1 TABLET BY MOUTH TWICE DAILY 180 tablet 1 ??? sertraline (ZOLOFT) 100 MG tablet Take 50 mg by mouth daily. Patient takes 50mg daily ??? warfarin (COUMADIN) 5 MG tablet TAKE 1 TABLET(5 MG) BY MOUTH DAILY. ADJUST DOSE BASED ON INR RESULTS DIRECTED 30 tablet 0 No current facility-administered medications for this visit. Objective: Vital signs: BP 112/70 (Patient Site: Left Arm, Patient Position: Sitting, Cuff Size: Adult Large) Pulse 93 Resp 16 Ht 5' 2 (1.575 m) Wt (!) 281 lb 4.8 oz (127.6 kg) BMI 51.45 kg/m2 Physical Exam: GENERAL APPEARANCE: Alert, cooperative and in no acute distress. HEENT: No scleral icterus. No Xanthelasma. Oral mucuos membranes pink and moist. NECK: No JVD. Thyroid not visualized CHEST: clear to auscultation CARDIOVASCULAR: S1, S2 irregular. PULSES: Radial and posterior tibial pulses are intact and symmetric. ABDOMEN: Nontender. BS+. EXTREMITIES: No cyanosis, clubbing or edema. SKIN: Warm, well perfused NEURO: Grossly nonfocal Lab Results: LIPIDS: Lab Results Component Value Date CHOL 150 01/21/2017 CHOL 124 03/25/2016 CHOL 144 03/18/2015 Lab Results Component Value Date HDL 45 (L) 01/21/2017 HDL 49 (L) 03/25/2016 HDL 53 03/18/2015 Lab Results Component Value Date LDLCALC 78 01/21/2017 LDLCALC 55 03/25/2016 LDLCALC 65 03/18/2015 Lab Results Component Value Date TRIG 136 01/21/2017 TRIG 98 03/25/2016 TRIG 131 03/18/2015 No components found for: CHOLHDL BMP: Lab Results Component Value Date CREATININE 1.20 (H) 08/05/2017 BUN 23 (H) 08/05/2017 NA 139 08/05/2017 K 08/05/2017 Comment: Specimen hemolyzed, result invalid CL 105 08/05/2017 CO2 26 08/05/2017 ECG and Cath films independently reviewed ANKUSH MARTINEZ MD [facility] IC ADDRESS SYSTEMS MECHANIC documented in this encounter Plan of Treatment Not on filedocumented as of this encounter Procedures Procedure Name Priority Date/Time Associated Diagnosis Comme nts BASIC METABOLIC Routine 08/05/2017 10:46 AM Resul ts for this PANEL PUBLIC ADDRESS SYSTEMS MECHANIC procedure are i n the results section. CBC WITH PLATELETS Routine 08/05/2017 10:46 AM Re sults for this PUBLIC ADDRESS SYSTEMS MECHANIC procedure are i n the results section. ECG 12-LEAD WITH Routine 08/05/2017 10:45 AM Resu lts for this MUSE ? PUBLIC ADDRESS SYSTEMS MECHANIC procedure are in [facility] the results section. documented in this encounter Results CBC with platelets (08/05/2017 10:46 AM PUBLIC ADDRESS SYSTEMS MECHANIC) athologist Signature WBC 7.3 4.0 - 11.0 08/05/2017 [facility] thou/uL 11:15 AM PUBLIC ADDRESS SYSTEMS MECHANIC [facility] RBC Count 4.20 3.80 - 08/05/2017 [facility] 5.40 11:15 AM [facility]/uL [facility] Hemoglobin 12.6 12.0 - 08/05/2017 [facility] 16.0 g/dL 11:15 AM [facility] Hematocrit 37.9 35.0 - 08/05/2017 [facility] 47.0 % 11:15 AM [facility] MCV 90 80 - 100 08/05/2017 [facility] fL 11:15 AM [facility] MCH 30.0 27.0 - 08/05/2017 [facility] 34.0 pg 11:15 AM [facility] MCHC 33.2 32.0 - 08/05/2017 [facility] 36.0 g/dL 11:15 AM [facility] RDW 13.3 11.0 - 08/05/2017 [facility] 14.5 % 11:15 AM [facility] Platelet Count 157 140 - 440 08/05/2017 [facility] thou/uL 11:15 AM [facility] Mean Platelet 11.3 8.5 - 12.5 08/05/2017 [facility] Volume fL 11:15 AM [facility] Specimen Anatomical Collection Method / Collection Time Recei gil Time (Source) Location / Volume Laterality Blood specimen Venipuncture / 08/05/2017 10:46 018 (specimen) Unknown AM PUBLIC ADDRESS SYSTEMS MECHANIC 11:10 AM PUBLIC ADDRESS SYSTEMS MECHANIC Ashley Anderson PA-C LAB - BLOOD ORDERABLES Performing Organization Address City/State/ZIP Code Phon e Number [place] [address] [id number] [place] [address] LABORATORY (ABNORMAL) Basic metabolic panel (08/05/2017 10:46 AM PUBLIC ADDRESS SYSTEMS MECHANIC) P athologist Signature Sodium 139 136 - 145 08/05/2017 [facility] mmol/L 11:29 AM [facility] Potassium 3.5 - 5.0 08/05/2017 [facility] mmol/L 11:29 AM [facility] Comment: Specimen hemolyzed, result inva lid Chloride 105 98 - 107 mmol/L 08/05/2017 11:29 M [facility] H AM [facility] Carbon Dioxide 26 22 - 31 mmol/L 08/05/2017 11:29 M [facility] (CO2) AM [facility] Anion Gap 8 5 - 18 mmol/L 08/05/2017 11:29 [facility] AM [facility] Glucose 191 (H) 70 - 125 mg/dL 08/05/2017 11:29 [facility] AM [facility] Calcium 9.7 8.5 - 10.5 08/05/2017 11:29 [facility] mg/dL AM [facility] Urea Nitrogen 23 (H) 8 - 22 mg/dL 08/05/2017 11:29 M [facility] TH AM [facility] Creatinine 1.20 (H) 0.60 - 1.10 08/05/2017 11:29 [facility] mg/dL AM [facility] GFR Estimate If 55 (L) >60 08/05/2017 11:29 M [facility] H Black mL/min/1.73m2 AM [facility] GFR Estimate 45 (L) >60 08/05/2017 11:29 [facility] mL/min/1.73m2 AM [facility] Specimen Anatomical Collection Method / Collection Time Recei gil Time (Source) Location / Volume Laterality Blood specimen Venipuncture / 08/05/2017 10:46 018 (specimen) Unknown AM PUBLIC ADDRESS SYSTEMS MECHANIC 11:10 AM PUBLIC ADDRESS SYSTEMS MECHANIC Narrative [facility] - 08/05/2017 11:29 AM PUBLIC ADDRESS SYSTEMS MECHANIC Fasting Glucose reference range is 70-99 mg/dL per [employer] (ADA) charles martinez. Ashley Anderson PA-C LAB - BLOOD ORDERABLES Performing Organization Address City/State/ZIP Code Phon e Number [place] [address] [place] [id number] [place], [place] [address]O LAB [address] [address], [facility] ECG 12-LEAD WITH MUSE (LHE) (08/05/2017 10:45 AM PUBLIC ADDRESS SYSTEMS MECHANIC) [facility] Method Time Signature Systolic Blood mmHg 08/05/2017 HE RADIANT Pressure 4:52 PM CONVERSION PUBLIC ADDRESS SYSTEMS MECHANIC Diastolic Blood mmHg 08/05/2017 HE RADIANT Pressure 4:52 PM CONVERSION PUBLIC ADDRESS SYSTEMS MECHANIC Ventricular Rate 85 BPM 08/05/2017 HE RADIANT 4:52 PM CONVERSION PUBLIC ADDRESS SYSTEMS MECHANIC Atrial Rate 89 BPM 08/05/2017 HE RADIANT 4:52 PM CONVERSION PUBLIC ADDRESS SYSTEMS MECHANIC [place] Interval ms 08/05/2017 HE RAD[facility]ANT 4:52 PM CONVERSION PUBLIC ADDRESS SYSTEMS MECHANIC QRS Duration 84 ms 08/05/2017 HE RADIANT 4:52 PM CONVERSION PUBLIC ADDRESS SYSTEMS MECHANIC QT 362 ms 08/05/2017 HE [facility] 4:52 PM CONVERSION PUBLIC ADDRESS SYSTEMS MECHANIC QTc 430 ms 08/05/2017 HE RADIANT 4:52 PM CONVERSION PUBLIC ADDRESS SYSTEMS MECHANIC P [place] degrees 08/05/2017 HE RAD[facility] 4:52 PM CONVERSION PUBLIC ADDRESS SYSTEMS MECHANIC R AXIS 20 degrees 08/05/2017 HE RADIANT 4:52 PM CONVERSION PUBLIC ADDRESS SYSTEMS MECHANIC T [place] 34 degrees 08/05/2017 HE RADIANT 4:52 PM CONVERSION PUBLIC ADDRESS SYSTEMS MECHANIC Interpretation Atrial fibrillation 08/05/2017 HE R ADIANT ECG Abnormal ECG 4:52 PM CONVERSION When compared with ECG of 07-JUL-2017 08:06, PUBLIC ADDRESS SYSTEMS MECHANIC Atrial fibrillation has replaced Sinus rhythm Vent. rate has increased BY ??29 BPM Confirmed by OPAL ??, LES LOC:JN ([id number]) on 08/05/2017 4: 52:28 PM Specimen Anatomical Collection Method Collection Time Receive d Time (Source) Location / / Volume Laterality 08/05/2017 10:45 08/05/2017 4:52 AM PUBLIC ADDRESS SYSTEMS MECHANIC PM PUBLIC ADDRESS SYSTEMS MECHANIC Ashley Anderson PA-C ECG ORDERABLES Performing Organization Address City/State/ZIP Code Phon e Number HE CARDIOLOGY CONVERSION HE RADIANT CONVERSION documented in this encounter Visit Diagnoses Diagnosis Aortic valvular stenosis Aortic valve disorders S/P TAVR (transcatheter aortic valve rep lacement) documented in this encounter Care Teams Restaurant Crew Person Relationship Specialty Start Date End Date Elyse Paredes MD PCP - General Family Practice 12/22/13 04/21/22 [address] [place] [address] documented as of this encounter
--- OUTSIDE RECORDS SUMMARY | 2022-07-02 13:44 | XMS_ITS | Encounter Summary ---
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
--- OUTSIDE RECORDS SUMMARY | 2022-07-02 13:44 | XMS_ITS | Encounter Summary ---
:1950 Author Organization [place] Address [address] [place] [address] Care Team Providers Name Role Phone Elyse Paredes MD Primary Care Provider Reason for Visit Reason Comments Consult Encounter Details Date Type Department Care Team Description 07/05/2017 Office Visit - [facility] Tanner Anderson PA-C [address] [place] [address] Coronary artery disease involving ekwok coronary artery of ekwok heart, angina presence unspecified; [facility] SOB (shortness of breath); [place] Severe aortic stenosis; [address] Type 2 diabetes mellitus without complication, with long-term current use of insulin (H); [place] [phone] Social History Tobacco Use Types Packs/Day Years [...] - - Weight 128.8 kg (284 lb) 07/05/2017 10:43 AM GROUP TEACHER Height 157.5 cm (5' 2) 07/05/2017 10:43 AM GROUP TEACHER Body Mass Index 51.94 07/05/2017 10:43 AM GROUP TEACHER documented in this encounter Progress Notes Ashley Anderson PA-C - 07/05/2017 10:30 AM CST Marci Diaz is here today for her pre-TAVR (transcatheter aortic valve replacement) visit. Marci has a history of aortic stenosis, hyperlipidemia, CAD with recent stent, hypertension, morbid obesity, obstructive sleep apnea, use of CPAP and type 2 diabetes mellitus on insulin. The patient has been having increased dyspnea on exertion and presyncope and on most recent echo was found to have severe aortic stenosis with valve area 0.8 cm?? and mean gradient 42 mmHg. She has now undergone all the required workup for transcatheter aortic valve replacement and is scheduled for procedure tomorrow. She is currently NYHA class III, based on the symptoms mentioned above. 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 She has a history of trouble with anesthesia in the past. After knee surgery she was sent home and then came back in with acute lung trauma. After being treated in the hospital she was then sent homewith home oxygen. She is quite worried about having anesthesia again. Most recent H&P was done on June [address] Paredes. No changes since that visit. All questions were answered and all risks of the procedure were again reviewed. Consent was signed and witnessed by me. Labs all looked stable today The plan will be for general anesthesia with Ziegler catheter placement. She will get an IJ. We will be using an Pike Rigo 3 valve via the right transfemoral approach She will report tomorrow morning for the procedure and all instructions were given by TAVR coordinator RN. Ashley Harvey PA-C, [facility] Structural Heart Program [facility] P TEACHER documented in this encounter Plan of Treatment Not on filedocumented as of this encounter Procedures Procedure Name Priority Date/Time Associated Diagnosis Comme nts ECG 12-LEAD WITH Routine 07/05/2017 10:22 AM Resu lts for this MUSE ? GROUP TEACHER procedure are in [facility] the results section. documented in this encounter Results ECG 12-LEAD WITH MUSE (LHE) (07/05/2017 10:22 AM GROUP TEACHER) [facility] Method Time Signature Systolic Blood mmHg 07/05/2017 HE RADIANT Pressure 5:08 PM GROUP TEACHER CONVERSION Diastolic Blood mmHg 07/05/2017 HE RADIANT Pressure 5:08 PM GROUP TEACHER CONVERSION Ventricular Rate 88 BPM 07/05/2017 HE RADIANT 5:08 PM GROUP TEACHER CONVERSION Atrial Rate 88 BPM 07/05/2017 HE RADIANT 5:08 PM GROUP TEACHER CONVERSION [place] Interval 128 ms 07/05/2017 HE RADIANT 5:08 PM GROUP TEACHER CONVERSION QRS Duration 84 ms 07/05/2017 HE RADIANT 5:08 PM GROUP TEACHER CONVERSION QT 348 ms 07/05/2017 HE RADIANT 5:08 PM GROUP TEACHER CONVERSION QTc 421 ms 07/05/2017 HE RADIANT 5:08 PM GROUP TEACHER CONVERSION P [place] -5 degrees 07/05/2017 HE RADIANT 5:08 PM GROUP TEACHER CONVERSION R AXIS 10 degrees 07/05/2017 HE RADIANT 5:08 PM GROUP TEACHER CONVERSION T [place] 33 degrees 07/05/2017 HE RADIANT 5:08 PM GROUP TEACHER CONVERSION Interpretation Sinus rhythm 07/05/2017 HE RADIANT ECG Normal ECG 5:08 PM GROUP TEACHER CONVERSION When compared with ECG of 12-MAY-2017 09:52, Premature atrial complexes are no longer Present Confirmed by ROCKWELL ??, SAMANTHA LOC:JN ([id number]) on 07/05/2017 5:08:16 PM Specimen Anatomical Collection Method Collection Time Receive d Time (Source) Location / / Volume Laterality 07/05/2017 10:22 07/05/2017 5:08 AM GROUP TEACHER PM GROUP TEACHER Mudassar Michelle CLEMENTS ECG ORDERABLES Performing Organization Address City/State/ZIP Code Phon e Number HE CARDIOLOGY CONVERSION HE RADIANT CONVERSION documented in this encounter Visit Diagnoses Diagnosis Coronary artery disease involving [place] coronary artery of ekw[place] heart, angina presence unspecified SOB (shortness of breath) Shortness of breath Severe aortic stenosis Aortic valve disorders Type 2 diabetes mellitus without complic ation, with long-term current use of insulin (H) Essential hypertension Unspecified essential hypertension documented in this encounter Care Teams Automobile Mechanic Apprentice Relationship Specialty Start Date End Date Elyse Paredes MD PCP - General Family Practice 12/22/13 04/21/22 [address] [place], [place] [id number] documented as of this encounter
--- OUTSIDE RECORDS SUMMARY | 2022-07-02 13:44 | XMS_ITS | Encounter Summary ---
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 Height 157.5 cm (5' 2) 07/06/2017 8:21 AM RAILROAD COMMISSIONER Body Mass Index 50.66 07/06/2017 8:21 AM RAILROAD COMMISSIONER documented in this encounter Discharge Summaries Dee Dee Sewell CNP - 07/08/2017 6:13 PM CST Discharge Summary by Dee Dee Sewell CNP at 07/08/2017 6:13 PM Author: Dee Dee Sewell CNP Service: Cardiology Author Type: Nurse Practitioner Filed: 07/09/2017 11:53 AM Date of Service: 07/08/2017 6:13 PM Status: Signed Excel Specialist: Dee Dee Sewell CNP (Nurse Practitioner) Cardiology Discharge Summary Primary Care Physician: Elyse Paredes MD Discharge Provider: Dee Dee Sewell Admission Date: 07/06/2017. Admission Diagnoses: Severe aortic stenosis [I35.0] Discharge Date: July 08, 2017 Disposition: Home or Self Care Condition at Discharge: Stable Code Status: Prior Principal Diagnosis: S/P TAVR (transcatheter aortic valve replacement) Discharge Diagnoses: Principal Problem: S/P TAVR (transcatheter aortic valve replacement) Active Problems: Severe aortic stenosis Coronary artery disease involving [place] coronary artery of [place] heart, angina presence unspecified DEDE on CPAP Type 2 diabetes mellitus without complication, with long-term current use of insulin Chronic diastolic congestive heart failure Hyperglycemia ARF (acute respiratory failure) Acute respiratory failure, unspecified whether with hypoxia or hypercapnia Consult/s: Hospitalist Significant Diagnostic Studies: ECHO Treatments: surgery: TAVR Discharge Medications: Medication List CONTINUE taking these medications aspirin 81 mg chewable tablet Dose: 81 mg 81 mg, Oral, DAILY BD INSULIN PEN NEEDLE UF SHORT 31 gauge x 5/16 Ndle Generic drug: pen needle, diabetic USE WITH TOUJEO AND VICTOZA BID celecoxib 200 MG capsule Dose: 200 mg Commonly known as: CeleBREX 200 mg, Oral, DAILY clopidogrel 75 mg tablet Quantity: 90 tablet Commonly known as: PLAVIX TAKE 1 TABLET BY MOUTH EVERY DAY CRESTOR 10 MG tablet Dose: 10 mg Generic drug: rosuvastatin 10 mg, Oral, DAILY insulin aspart 100 unit/mL injection Dose: 6-10 Units Commonly known as: NovoLOG 6-10 Units, Subcutaneous, TID AC LANTUS SOLOSTAR 100 unit/mL (3 mL) pen Dose: 30 Units Generic drug: insulin glargine 30 Units, BID losartan 50 MG tablet Dose: 50 mg Commonly known as: COZAAR 50 mg, Oral, DAILY sertraline 100 MG tablet Dose: 100 mg Commonly known as: ZOLOFT 100 mg, Oral, DAILY, Patient takes 50mg daily STOP taking these medications amoxicillin 500 MG capsule Commonly known as: AMOXIL Discharge Instructions: Follow up appointment with Primary Care Physician: Elyse Paredes MD in 1 week Follow up appointment with Specialist: TAVR clinic on 07/23/2017 @ 1330 Follow up test / procedure to do as outpatient: ECHO on 08/05/2017 @ [address] Martinez on 08/05/2017 @ 1110 Diet: diabetic diet Activity: Activity as tolerated. Weigh daily. Ambulate. TCDB and use IS 5-10 times per hour while awake. Cardiac rehab. Restrictions: No lifting/pushing/pulling >10lbs or excessive squatting or straining for 2 weeks. No bending >90 degree for 1 week. No biking for 1 month. Avoid dental procedures for 6 months. Wound / drain care:keep wound clean and dry Hospital Summary: Ms. Marci Diaz is a 67 y.o. female with severe aortic valve stenosis with preserved LV fxn; EF 65%, chronic dHF; NYHA class III, CAD; s/p LAD PCI in 05/12/2017, HTN, HLD, DM Type II and DEDE; CPAP compliant, who underwent successful TAVR with Rt TF approach with no immediate post operative complicatio ns. Vital Signs in last 24 hours: Temp: [97.9 ??F (36.6 ??C)-98.2 ??F (36.8 ??C)] 97.9 ??F (36.6 ??C) Heart Rate: [70-99] 70 Resp: [18-20] 18 BP: (130-159)/(82-87) 130/87 Physical Exam: General Appearance: Morbidly Obese WF in no acute distress ENT/Mouth: Membranes moist, no oral lesions or bleeding gums. EYES: No scleral icterus, normal conjunctivae Neck: No carotid bruits. Chest/Lungs: Normal respiratory effort. Respirations are even and unlabored. Lungs are clear to auscultation, no rales or wheezing. No chest wall tenderness. Cardiovascular: Regular. Normal S1, S2 with no murmurs, rubs, or gallops; the carotid, radial, dorsalis pedis and posterior tibial pulses are intact, No JVD. No edema Abdomen: Obese, soft, non-tender to palpation, non-distended. + bowel sounds. Extremities: No cyanosis or clubbing Skin: No xanthelasma. Lt groin with D STAT dressing present. No surrounding hematoma. Rt groin band-aid present with dried drainage. No surrounding hematoma. Mild, soft ecchymosis. Neuro/Psych: Alert and oriented x3, calm N.Donato RN, MSN, AGACNP- Invasive Cardiology/Cardiac Electrophysiology ROAD COMMISSIONER documented in this encounter Medications at Time of Discharge Medication Sig Dispensed Refills Start Date End Date LANTUS SOLOSTAR 100 [LANTUS SOLOSTAR 100 0 [...] this encounter Progress Notes Historical Provider - 07/08/2017 6:13 PM CST Cardiac Rehab Discharge Summary Problem List Patient Active Problem List Diagnosis Date Noted ??? S/P TAVR (transcatheter aortic valve replacement) 07/06/2017 ??? Hyperglycemia 07/06/2017 ??? ARF (acute respiratory failure) 07/06/2017 ??? Chronic diastolic congestive heart failure ??? Acute respiratory failure, unspecified whether with hypoxia or hypercapnia ??? Calculus of kidney 06/07/2017 ??? Urinary tract stones 06/07/2017 ??? DEDE on CPAP 05/27/2017 ??? Type 2 diabetes mellitus without complication, with long-term current use of insulin 05/27/2017 ??? Essential hypertension 05/27/2017 ??? CASTRO (dyspnea on exertion) ??? Coronary artery disease involving [place] coronary artery of [place] heart, angina presence unspecified ??? Severe aortic stenosis 04/16/2017 ??? HLD (hyperlipidemia) 08/14/2015 Pertinent Medical History Pertinent Medical History: CAD, Stent, HTN, Hyperlipidemia, Diabetes (dede CPAP bilat knee replacement obesity ) Risk Factors Risk Factors: Hypertension, High cholesterol, Obesity, Stress, Inactivity, Diabetes Mellitus (lost both parents and a sibling this past year) Living Situation Living Accomodations: Alone, Other (Comment) (town house) Vitals Height: 5' 2 (157.5 cm) Weight: (!) 277 lb (125.6 kg) Labs Hemoglobin A1c Date/Time Value Ref Range Status 01/08/2010 06:34 AM 7.5 (H) 4.2 - 6.1 % Final BNP Date/Time Value Ref Range Status 07/05/2017 10:24 AM 25 0 - 106 pg/mL Final Lab Results Component Value Date CHOL 150 01/21/2017 CHOL 124 03/25/2016 CHOL 144 03/18/2015 Lab Results Component Value Date HDL 45 (L) 01/21/2017 HDL 49 (L) 03/25/2016 HDL 53 03/18/2015 Lab Results Component Value Date LDLCALC 78 01/21/2017 LDLCALC 55 03/25/2016 LDLCALC 65 03/18/2015 Lab Results Component Value Date TRIG 136 01/21/2017 TRIG 98 03/25/2016 TRIG 131 03/18/2015 Treatment Progression: Maximal Activity and Exercise Level Transfers Bed Mobility: SBA, Assist of 1 Bed to Chair: SBA, Assist of 1 Chair to Stand: SBA, Assist of 1 Walking/Marching Distance: 450 ft Met Level: 3 Peak HR: 68 Peak BP: 128/68 Ambulation Status: SBA, Assist of 1 Device: Walker Comment: mild dizziness when first up that resolved quickly. Steps Number of Steps: 8 Met Level: 4 Peak HR: 108 Peak BP: 144/68 Comment: pacing self well on steps Tolerance Level/Symptoms/Complications Symptomatic: mild dizziness EKG/Arrhythmias ECG: Sinus Rhythm Discharge Disposition Discharge Recommended Discharge Disposition: Home with family Outpatient Location: [facility] Comment: Is planning a trip to [facility] in April of 2018 and reports is motivated to get stronger. Dee Dee Parks, FAMILY WORKER - 07/08/2017 10:41 AM CST Images from the original note were not included. Progress Notes by Dee Dee Sewell CNP at 07/08/2017 10:41 AM Author: Dee Dee Sewell CNP Service: Cardiology Author Type: Nurse Practitioner Filed: 07/08/2017 10:43 AM Date of Service: 07/08/2017 10:41 AM Status: Signed Excel Specialist: Dee Dee Sewell CNP (Nurse Practitioner) ?? ASSESSMENT: 1. Severe Aortic stenosis- s/p Rt TF TAVR; POD #2 2. Preserved LV Fxn- EF 65% 3. Chronic diastolic HF- NYHA class III sxs; stable 4. CAD- s/p LAD PCI 05/12/2017; on DAPT 5. HTN- controlled 6. HLD- on Crestor 7. DM Type II- insulin dependent 8. DEDE- on CPAP PLAN: 1. OK to discharge from a TAVR standpoint 2. Continue to monitor vascular access sites for complication 3. Continue ASA and Plavix for CVA prevention 4. Activity restrictions and reportable s/s were discussed with the patient and the patient's familywho verbalize understanding. 5. We look forward to seeing Marci in TAVR clinic on 07/23/2017 @ 1330, for repeat echocardiogram on08/05/2017 @ 1000 and on 08/05/2017 @ [address] Martinez. 6. Thank for you the opportunity to participate in the care of this patient HISTORY OF PRESENT ILLNESS Ms. Marci Diaz is a 67 y.o. female with history of severe aortic stenosis who underwent successfulTAVR via Rt TF approach, receiving a 23mm S3 valve with no immediate post operative complications. PAST 24H EVENTS: Continues to progress from a TAVR standpoint. Awaiting discharge SUBJECTIVE: Denies cardiac complaints. Reports generalized stiffness from being on bedrest. TELE: SA; HR 60s-70s ECG 07/07/2017 @ 08:06:00 SB with SA; HR 56bpm, VT 94ms, QRSd 94ms, QT 430ms, QTc 414ms PHYSICAL EXAMINATION: Vitals: 07/08/17 0039 07/08/17 0408 07/08/17 0500 07/08/17 0757 BP: 127/79 103/51 Patient Position: Lying Sitting Pulse: 61 60 (!) 59 Resp: 20 20 Temp: 97.9 ??F (36.6 ??C) 98.2 ??F (36.8 ??C) TempSrc: Oral Oral SpO2: 95% 96% Weight: (!) 277 lb (125.6 kg) Height: General Appearance: Morbidly Obese WF in no acute distress ENT/Mouth: Membranes moist, no oral lesions or bleeding gums. EYES: No scleral icterus, normal conjunctivae Neck: No carotid bruits. Chest/Lungs: Normal respiratory effort. Respirations are even and unlabored. Lungs are clear to auscultation, no rales or wheezing. No chest wall tenderness. Cardiovascular: Regular. Normal S1, S2 with no murmurs, rubs, or gallops; the carotid, radial, dorsalis pedis and posterior tibial pulses are intact, No JVD. No edema Abdomen: Obese, soft, non-tender to palpation, non-distended. + bowel sounds. Extremities: No cyanosis or clubbing Skin: No xanthelasma. Lt groin with D STAT dressing present. No surrounding hematoma. Rt groin band-aid present with dried drainage. No surrounding hematoma. Mild, soft ecchymosis. Neuro/Psych: Alert and oriented x3, calm MEDICATIONS: No current facility-administered medications on file prior to encounter. Current Outpatient Prescriptions on File Prior to Encounter Medication Sig Dispense Refill ? aspirin 81 mg chewable tablet Chew 1 tablet (81 mg total) daily. 0 ? celecoxib (CELEBREX) 200 MG capsule Take 200 mg by mouth daily. ? clopidogrel (PLAVIX) 75 mg tablet TAKE 1 TABLET BY MOUTH EVERY DAY 90 tablet 3 ? CRESTOR 10 mg tablet Take 10 mg by mouth daily. ? insulin aspart (NOVOLOG) 100 unit/mL injection Inject 6-10 Units under the skin 3 (three) times a day before meals. ? LANTUS SOLOSTAR 100 unit/mL (3 mL) pen 30 Units 2 (two) times a day. ? losartan (COZAAR) 50 MG tablet Take 50 mg by mouth daily. ? sertraline (ZOLOFT) 100 MG tablet Take 100 mg by mouth daily. Patient takes 50mg daily ? BD INSULIN PEN NEEDLE UF SHORT 31 gauge x 5/16 Ndle USE WITH TOUJEO AND VICTOZA BID 3 PAST MEDICAL HISTORY: Past Medical History: Diagnosis Date ? Bicuspid aortic valve ? COPD (chronic obstructive pulmonary disease) ? Depression ? Diabetes mellitus insulin ? DJD (degenerative joint disease) ? Dyspnea ? Hyperlipidemia ? Hypertension ? Kidney stones ? Morbid obesity ? Nephrolithiasis ? DEDE on CPAP ? Severe aortic stenosis ALLERGIES: Allergies Allergen Reactions ? Lisinopril Cough ? Metformin Nausea And Vomiting ? Erythromycin Base Rash LABS: Lab Results Component Value Date WBC 8.8 07/08/2017 HGB 11.2 (L) 07/08/2017 HCT 33.6 (L) 07/08/2017 MCV 92 07/08/2017 PLT 124 (L) 07/08/2017 Lab Results Component Value Date NA 138 07/08/2017 K 4.6 07/08/2017 CL 104 07/08/2017 CO2 25 07/08/2017 BUN 19 07/08/2017 CREATININE 1.01 07/08/2017 CALCIUM 9.4 07/08/2017 Lab Results Component Value Date BNP 25 07/05/2017 No results found for: CKTOTAL, CKMB, CKMBINDEX, TROPONINI Lab Results Component Value Date CHOL 150 01/21/2017 CHOL 124 03/25/2016 CHOL 144 03/18/2015 Lab Results Component Value Date HDL 45 (L) 01/21/2017 HDL 49 (L) 03/25/2016 HDL 53 03/18/2015 Lab Results Component Value Date LDLCALC 78 01/21/2017 LDLCALC 55 03/25/2016 LDLCALC 65 03/18/2015 Lab Results Component Value Date TRIG 136 01/21/2017 TRIG 98 03/25/2016 TRIG 131 03/18/2015 No components found for: CESAR Kathleen RN, MSN, [facility] Invasive Cardiology/Cardiac Electrophysiology ROAD COMMISSIONER Mitchel Flores MD - 07/08/2017 9:37 AM CST [place] Daily Progress Note Date of Service: 07/08/2017 Brief History: Marci Diaz is 67 y.o. female with past medical history of type 2 diabetes mellitus,severe symptomatic aortic stenosis, DEDE, obesity, underwent elective transcatheter aortic valve replacement on 07/06. Post procedure, we are seeing patient for medical management. Subjective: Chart reviewed, events noted. Pt seen and examined. No neck pain. She feels much better today. She had good night sleep. No chest pain or shortness of breath. Objective Vital signs in last 24 hours: Temp: [97.9 ??F (36.6 ??C)-99.5 ??F (37.5 ??C)] 98.2 ??F (36.8 ??C) Heart Rate: [59-79] 59 Resp: [18-22] 20 BP: (103-139)/(49-79) 103/51 Arterial Line BP: (133)/(55) 133/55 Weight: (!) 277 lb (125.6 kg) Weight change: -8 lb 12.8 oz (-3.992 kg) Body mass index is 50.66 kg/(m^2). Intake/Output last 3 shifts: I/O last 3 completed shifts: In: 1620 [P.O.:1320; I.V.:300] Out: 1250 [Urine:1250] Intake/Output this shift: Physical Exam: BP 103/51 (Patient Position: Sitting) Pulse (!) 59 Temp 98.2 ??F (36.8 ??C) (Oral) Resp 20 Ht 5' 2 (1.575 m) Wt (!) 277 lb (125.6 kg) SpO2 96% BMI 50.66 kg/m2 FiO2 (%): 40 % O2 Device: None (Room air) O2 Flow Rate (L/min): 2 L/min General Appearance: Not in distress. HEENT: Normocephalic. No scleral icterus. Mucous membranes moist. Heart: S1 S2 heard. Regular rate and rhythm. Lungs: Clear to auscultation bilaterally. Abdomen: Soft, non tender, bowel sounds present. Obese. Extremity: No deformity. No joint swelling. No edema. Neurologic: No new deficits Lab Results: personally reviewed. Lab Results Component Value Date NA 138 07/08/2017 K 4.6 07/08/2017 CL 104 07/08/2017 CO2 25 07/08/2017 BUN 19 07/08/2017 CREATININE 1.01 07/08/2017 CALCIUM 9.4 07/08/2017 Lab Results Component Value Date WBC 8.8 07/08/2017 HGB 11.2 (L) 07/08/2017 HCT 33.6 (L) 07/08/2017 MCV 92 07/08/2017 PLT 124 (L) 07/08/2017 Results from last 7 days Lab Units 07/08/17 0705 07/07/17 0524 07/06/[address]-MAGNESIUM mg/dL 1.9 1.9 2.9* Results from last 7 days Lab Units 07/08/17 0809 07/07/17 2132 07/07/17 1727 07/07/17 1130 07/07/17 0553 07/06/17 2341 07/06/17 2210 07/06/17 2104 07/06/17 2000 07/06/[address]-POC GLUCOSE FINGERSTICK- HE mg/dL 167 212 227 296 239 131 141 170 190 201 Assessment: ?? Severe symptomatic aortic valve stenosis, s/p transcatheter aortic valve replacement on 07/06. ?? Type 2 diabetes mellitus. She is on lantus and sliding scale insulin. Recent A1C of 7.5. Blood glucose elevated. ?? Obesity, Body mass index is 50.66 kg/(m^2). ?? DEDE, uses CPAP at night. ?? Mild post operative hypoxic respiratory failure. Currently on low flow oxygen. ?? Essential hypertension, on losartan. Blood pressure stable. ?? Dyslipidemia on crestor ?? Mild thrombocytopenia Plan: Continue supportive cares. Increase lantus to 25 bid (home dose of 30 bid). Add mealtime insulin- aspart 8 units with meals. Hypoglycemia protocol. Increase activity as tolerated. If going home, may resume home regimen. Advance Care Planning: Barriers to discharge: Post TAVR Anticipated discharge day: ? today Disposition: Home [facility] Hospitalist ROAD COMMISSIONER NiyaJaith - 07/07/2017 1:26 PM CST Spiritual Care Note Spiritual Assessment: Full Time Staff Interpreter made a post surgery visit with patient this morning. Patient was being attended to by staff when Full Time Staff Interpreter arrives. Patient seems to be doing well post surgery and does inform the Full Time Staff Interpreter that she is an Agnostic following introduction but does seem open to support from Full Time Staff Interpreter. Patient states it has been a difficult year for her as she lost her mother as well as her only sibling and states, I feel like an orphan now. When asked about her support system patient states she has really good friends who will be there for her once she gets out of the hospital and does appear comforted by that; Full Time Staff Interpreter notes not concerns. Care Provided: Patient denies needs but did thank the Full Time Staff Interpreter for coming and offering support. Plan of Care: Spiritual care will continue to follow as part of patient's care team. Full Time Staff Interpreter JARRET Noguera, [facility] RO[facility] COMMISSIONER Mitchel Flores MD - 07/07/2017 10:56 AM CST [place] Daily Progress Note Date of Service: 07/07/2017 Brief History: Marci Diaz is 67 y.o. female with past medical history of type 2 diabetes mellitus,severe symptomatic aortic stenosis, DEDE, obesity, underwent elective transcatheter aortic valve replacement on 07/06. Post procedure, we are consulted for medical management. Subjective: Chart reviewed, events noted. Pt seen and examined. No pain today. She had some cough. No chest painor shortness of breath. Blood glucose were elevated. Objective Vital signs in last 24 hours: Temp: [97.7 ??F (36.5 ??C)-98.9 ??F (37.2 ??C)] 98.4 ??F (36.9 ??C) Heart Rate: [54-83] 75 Resp: [12-28] 20 BP: (101-104)/(42-47) 102/42 Arterial Line BP: (98-184)/(36-166) 133/55 FiO2 (%): [40 %] 40 % Weight: (!) 283 lb (128.4 kg) Weight change: Body mass index is 51.76 kg/(m^2). Intake/Output last 3 shifts: I/O last 3 completed shifts: In: 2300 [I.V.:2200; IV Piggyback:100] Out: 1638 [Urine:1628; Blood:10] Intake/Output this shift: Physical Exam: BP 102/42 Pulse 75 Temp 98.4 ??F (36.9 ??C) (Axillary) Resp 20 Ht 5' 2 (1.575 m) Wt (!) 283 lb (128.4 kg) SpO2 98% BMI 51.76 kg/m2 FiO2 (%): 40 % O2 Device: CPAP O2 Flow Rate (L/min): 2 L/min General Appearance: Not in distress. HEENT: Normocephalic. No scleral icterus. Mucous membranes moist. Heart: S1 S2 heard. Regular rate and rhythm. Lungs: Clear to auscultation bilaterally. Abdomen: Soft, non tender, bowel sounds present. Obese. Extremity: No deformity. No joint swelling. No edema. Neurologic: No new deficits Lab Results: personally reviewed. Lab Results Component Value Date NA 135 (L) 07/07/2017 K 4.4 07/07/2017 CL 105 07/07/2017 CO2 21 (L) 07/07/2017 BUN 18 07/07/2017 CREATININE 1.00 07/07/2017 CALCIUM 8.6 07/07/2017 Lab Results Component Value Date WBC 12.0 (H) 07/07/2017 HGB 11.3 (L) 07/07/2017 HCT 33.4 (L) 07/07/2017 MCV 91 07/07/2017 PLT 145 07/07/2017 Results from last 7 days Lab Units 07/07/17 0524 07/06/17 [address]-MAGNESIUM mg/dL 1.9 2.9* Results from last 7 days Lab Units 07/07/17 0553 07/06/17 2341 07/06/17 2210 07/06/17 2104 07/06/17 2000 07/06/17 1832 07/06/17 1742 07/06/17 1635 07/06/17 1534 07/06/[address]-POC GLUCOSE FINGERSTICK- HE mg/dL 239 131 141 170 190 201 191 249 241 282 Assessment: ?? Severe symptomatic aortic valve stenosis, s/p transcatheter aortic valve replacement on 07/06. ?? Type 2 diabetes mellitus. She takes lantus and prandial novolog at home. Recent A1C of 7.5. Bloodglucose elevated. She started on clear liquids. ?? Obesity, Body mass index is 51.76 kg/(m^2). ?? DEDE, uses CPAP at night. ?? Mild post operative hypoxic respiratory failure. Currently on low flow oxygen. ?? Essential hypertension, on losartan. Blood pressure stable. ?? Dyslipidemia on crestor Plan: Continue supportive cares. Resume lantus at 15 units BID for now. Gradually titrate it up to the home dosing (30 bid) and consider adding prandial insulin. Continue sliding scale insulin. Encourage useof incentive spirometry. Increase activity as tolerated. Advance Care Planning: Barriers to discharge: Post TAVR Anticipated discharge day: 1-2 days Disposition: Home Mitchel Flores MD [facility]?? Hospitalist ROAD COMMISSIONER Dee Dee Sewell CNP - 07/07/2017 8:30 AM CST Images from the original note were not included. Progress Notes by Dee Dee Sewell CNP at 07/07/2017 8:30 AM Author: Dee Dee Sewell CNP Service: Cardiology Author Type: Nurse Practitioner Filed: 07/07/2017 10:06 AM Date of Service: 07/07/2017 8:30 AM Status: Signed Excel Specialist: Dee Dee Sewell CNP (Nurse Practitioner) ?? ASSESSMENT: 1. Severe Aortic stenosis- s/p Rt TF TAVR; POD #1 2. Preserved LV Fxn- EF 65% 3. Chronic diastolic HF- NYHA class III sxs; stable 4. CAD- s/p LAD PCI 05/12/2017; on DAPT 5. HTN- controlled 6. HLD- on Crestor 7. DM Type II- insulin dependent 8. DEDE- on CPAP PLAN: 1. OK to transfer out of ICU from a cardiac standpoint 2. Cardiac rehab to follow 3. OK to D/C [place] and invasive monitoring and promote activity OOB and up to chair, ambulate TID 4. OK to D/C TVP 5. ECHO today 6. Continue to monitor neurologic status post TAVR 7. Continue ASA and Plavix for CVA prevention 8. Continue to monitor vascular access sites for complication post ambulation 9. Continue to promote pulmonary hygiene in the post operative period 10. Continue to promote sleep hygiene to prevent delirium 11. Continue to monitor and control pain 12. Continue to monitor and control HTN; goal SBP <150mmHg. PRN Hydralazine ordered 13. Continue to monitor renal function and fluid volume status. Monitor and replace electrolytes as needed per protocol. 14. Anticipate d/c in 1-2 days HISTORY OF PRESENT ILLNESS Ms. Marci Diaz is a 67 y.o. female with history of severe aortic stenosis who underwent successfulTAVR via Rt TF approach, receiving a 23mm S3 valve with no immediate post operative complications. PAST 24H EVENTS: No events overnight. Groin sites stable. SUBJECTIVE: Denies cardiac complaints. Reports generalized stiffness from being on bedrest. TELE: SA; HR 60s-70s ECG 07/07/2017 @ 08:06:00 SB with SA; HR 56bpm, VT 94ms, QRSd 94ms, QT 430ms, QTc 414ms PHYSICAL EXAMINATION: Vitals: 07/07/17 0800 07/07/17 0830 07/07/17 0900 07/07/17 0930 BP: Patient Position: Pulse: (!) 55 63 78 72 Resp: 18 21 20 17 Temp: 98.4 ??F (36.9 ??C) TempSrc: Axillary SpO2: 96% 99% 99% 99% Weight: Height: General Appearance: Morbidly Obese WF in no acute distress ENT/Mouth: Membranes moist, no oral lesions or bleeding gums. EYES: No scleral icterus, normal conjunctivae Neck: No carotid bruits. Rt IJ TVC. Chest/Lungs: Normal respiratory effort. Respirations are even and unlabored. Lungs are clear to auscultation, no rales or wheezing. No chest wall tenderness. Cardiovascular: Regular. Normal S1, S2 with no murmurs, rubs, or gallops; the carotid, radial, dorsalis pedis and posterior tibial pulses are intact, No JVD. No edema Abdomen: Obese, soft, non-tender to palpation, non-distended. + bowel sounds. Extremities: No cyanosis or clubbing Skin: No xanthelasma. Lt groin with D STAT dressing present. No surrounding hematoma. Rt groin band-aid present with dried drainage. No surrounding hematoma. Mild, soft ecchymosis. Neuro/Psych: Alert and oriented x3, calm MEDICATIONS: No current facility-administered medications on file prior to encounter. Current Outpatient Prescriptions on File Prior to Encounter Medication Sig Dispense Refill ? aspirin 81 mg chewable tablet Chew 1 tablet (81 mg total) daily. 0 ? celecoxib (CELEBREX) 200 MG capsule Take 200 mg by mouth daily. ? clopidogrel (PLAVIX) 75 mg tablet TAKE 1 TABLET BY MOUTH EVERY DAY 90 tablet 3 ? CRESTOR 10 mg tablet Take 10 mg by mouth daily. ? insulin aspart (NOVOLOG) 100 unit/mL injection Inject 6-10 Units under the skin 3 (three) times a day before meals. ? LANTUS SOLOSTAR 100 unit/mL (3 mL) pen 30 Units 2 (two) times a day. ? losartan (COZAAR) 50 MG tablet Take 50 mg by mouth daily. ? sertraline (ZOLOFT) 100 MG tablet Take 100 mg by mouth daily. Patient takes 50mg daily ? BD INSULIN PEN NEEDLE UF SHORT 31 gauge x 5/16 Ndle USE WITH TOUJEO AND VICTOZA BID 3 PAST MEDICAL HISTORY: Past Medical History: Diagnosis Date ? Bicuspid aortic valve ? COPD (chronic obstructive pulmonary disease) ? Depression ? Diabetes mellitus insulin ? DJD (degenerative joint disease) ? Dyspnea ? Hyperlipidemia ? Hypertension ? Kidney stones ? Morbid obesity ? Nephrolithiasis ? DEDE on CPAP ? Severe aortic stenosis ALLERGIES: Allergies Allergen Reactions ? Lisinopril Cough ? Metformin Nausea And Vomiting ? Erythromycin Base Rash LABS: Lab Results Component Value Date WBC 12.0 (H) 07/07/2017 HGB 11.3 (L) 07/07/2017 HCT 33.4 (L) 07/07/2017 MCV 91 07/07/2017 PLT 145 07/07/2017 Lab Results Component Value Date NA 135 (L) 07/07/2017 K 4.4 07/07/2017 CL 105 07/07/2017 CO2 21 (L) 07/07/2017 BUN 18 07/07/2017 CREATININE 1.00 07/07/2017 CALCIUM 8.6 07/07/2017 Lab Results Component Value Date BNP 25 07/05/2017 No results found for: CKTOTAL, CKMB, CKMBINDEX, TROPONINI Lab Results Component Value Date CHOL 150 01/21/2017 CHOL 124 03/25/2016 CHOL 144 03/18/2015 Lab Results Component Value Date HDL 45 (L) 01/21/2017 HDL 49 (L) 03/25/2016 HDL 53 03/18/2015 Lab Results Component Value Date LDLCALC 78 01/21/2017 LDLCALC 55 03/25/2016 LDLCALC 65 03/18/2015 Lab Results Component Value Date TRIG 136 01/21/2017 TRIG 98 03/25/2016 TRIG 131 03/18/2015 No components found for: CESAR Kathleen RN, MSN, [facility] Invasive Cardiology/Cardiac Electrophysiology ROAD COMMISSIONER Crusing Judy, [facility] - 07/06/2017 3:10 PM CST Pharmacy Note - Admission Medication History Pertinent Provider Information: Prior To Admission (WHEAT BUYER) med list completed and updated in EMR. WHEAT BUYER Med List Medication Sig Note Last Dose ??? amoxicillin (AMOXIL) 500 MG capsule Take 500 mg by mouth every 8 (eight) hours. Until all taken 07/02/2017: Filled 06/30/17 for 7 day supply 07/05/2017 at Unknown time ??? aspirin 81 mg chewable tablet Chew 1 tablet (81 mg total) daily. 07/05/2017 at Unknown time ??? celecoxib (CELEBREX) 200 MG capsule Take 200 mg by mouth daily. 07/05/2017 at Unknown time ??? clopidogrel (PLAVIX) 75 mg tablet TAKE 1 TABLET BY MOUTH EVERY DAY 07/06/2017 at Unknown time ??? CRESTOR 10 mg tablet Take 10 mg by mouth daily. 07/05/2017 at Unknown time ??? insulin aspart (NOVOLOG) 100 unit/mL injection Inject 6-10 Units under the skin 3 (three) times a day before meals. 07/05/2017 at Unknown time ??? LANTUS SOLOSTAR 100 unit/mL (3 mL) pen 30 Units 2 (two) times a day. 07/05/2017 at Unknown time ??? losartan (COZAAR) 50 MG tablet Take 50 mg by mouth daily. 07/05/2017 at Unknown time ??? sertraline (ZOLOFT) 100 MG tablet Take 100 mg by mouth daily. Patient takes 50mg daily 07/05/2017at Unknown time Information source(s): Patient Summary of Changes to WHEAT BUYER Med List New: none Discontinued: none Changed: none Patient was asked about OTC/herbal products specifically. WHEAT BUYER med list reflects this. Based on the pharmacist???s assessment, the WHEAT BUYER med list information appears reliable Patient appears adherent: Yes Allergies were reviewed, assessed, and updated with the patient. Patient does not use any multi-dose medications prior to admission. Thank you for the opportunity to participate in the care of this patient. Judy Jacobsen RPh 07/06/2017 3:[address] COMMISSIONER Mitchel Flores MD - 07/06/2017 3:[address] [facility] Daily Progress Note Date of Service: 07/06/2017 Brief History: Marci Diaz is 67 y.o. female with past medical history of type 2 diabetes mellitus,severe symptomatic aortic stenosis, DEDE, obesity, underwent elective transcatheter aortic valve replacement. Post procedure, she is admitted to ICU for further management. We are consulted for medical management. Subjective: Chart reviewed, events noted. Pt seen and examined. Patient complaints of some discomfort in neck and throat. No chest pain. No shortness of breath. Objective Vital signs in last 24 hours: Temp: [98 ??F (36.7 ??C)-98.6 ??F (37 ??C)] 98.5 ??F (36.9 ??C) Heart Rate: [64-70] 64 Resp: [16-22] 20 BP: (101-117)/(46-63) 104/47 Arterial Line BP: (104)/(47) 104/47 Weight: (!) 287 lb 4.8 oz (130.3 kg) Weight change: Body mass index is 52.55 kg/(m^2). Intake/Output last 3 shifts: I/O last 3 completed shifts: In: 1700 [I.V.:1700] Out: 10 [Blood:10] Intake/Output this shift: Physical Exam: BP 104/47 (Patient Position: Lying) Pulse 64 Temp 98.5 ??F (36.9 ??C) (Bladder) Resp 20 Ht 5' 2 (1.575 m) Wt (!) 287 lb 4.8 oz (130.3 kg) SpO2 96% BMI 52.55 kg/m2 O2 Device: Simple mask O2 Flow Rate (L/min): 8 L/min General Appearance: Not in distress. HEENT: Normocephalic. No scleral icterus. Mucous membranes moist. Heart: S1 S2 heard. Regular rate and rhythm. Lungs: Clear to auscultation bilaterally. Abdomen: Soft, non tender, bowel sounds present. Obese. Extremity: No deformity. No joint swelling. No edema. Neurologic: No new deficits Lab Results: personally reviewed. Lab Results Component Value Date NA 136 07/06/2017 K 5.2 (H) 07/06/2017 CL 107 07/06/2017 CO2 24 07/06/2017 BUN 21 07/06/2017 CREATININE 1.01 07/06/2017 CALCIUM 8.7 07/06/2017 Lab Results Component Value Date WBC 13.7 (H) 07/06/2017 HGB 11.8 (L) 07/06/2017 HCT 35.1 07/06/2017 MCV 90 07/06/2017 PLT 167 07/06/2017 Results from last 7 days Lab Units 07/06/[address]-POC GLUCOSE FINGERSTICK- HE mg/dL 282 Assessment: ?? Severe symptomatic aortic valve stenosis, s/p transcatheter aortic valve replacement on 07/06. ?? Type 2 diabetes mellitus. She takes lantus at home. Recent A1C of 7.5. ?? Obesity, Body mass index is 52.55 kg/(m^2). ?? DEDE, uses CPAP at night. ?? Mild post operative hypoxic respiratory failure. Currently on low flow oxygen. ?? Essential hypertension ?? Dyslipidemia on crestor Plan: Continue supportive cares. Resume home medications. Hold lantus, but add sliding scale insulin as she is NPO currently. Trend blood glucose. Resume lantus at lower dose if blood glucose on higher side. Advance Care Planning: Barriers to discharge: Post TAVR Anticipated discharge day: 1-2 days Disposition: Home Mitchel Flores MD [facility]?? Hospitalist ROAD COMMISSIONER Ankush Martinez MD - 07/06/2017 1:46 PM CST Procedure: Transcatheter aortic valve replacement Indication: Severe symptomatic aortic stenosis with the patient felt to be an appropriate candidate for transcatheter aortic valve replacement after a thorough multidisciplinary approach, including a visit with two surgeons. Operators: Interventional Cardiology: Ankush Martinez MD; Chidi Barcenas MD CT Surgery: Alfonzo Steele MD Echocardiography: Van Levy MD Approach: Rt transfemoral Anesthesia: GA Procedure [...] 90?? to each other. A right internal jug ular catheter placed by anesthesia, was used to [...] based on clinical need. Ankush Martinez MD ROAD COMMISSIONER documented in this encounter H&P Notes Dee Dee Sewell CNP - 07/06/2017 8:11 AM CST H&P Pre-Procedure Update Marci Diaz 07/02/2017 Provider: VITOR Mccray Patient presents for TAVR. She has a history of severe, symptomatic with preserved LV fxn; EF 65%and NYHA class III sxs. Last H/P was performed on 06/28/2017 The patient's preprocedure history and physical from the clinic is reviewed. There are no significant changes in the patient's clinical status. The patient's physical exam is essentially unchanged. Questions regarding the patient's upcoming procedure were answered. Risks benefits and expected outcomes were reviewed and the patient agrees to proceed. ROAD COMMISSIONER documented in this encounter Consult Notes Tamera Fernández, ARMNAD - 07/07/2017 10:27 AM CST Clinical Nutrition Therapy Assessment Note Reason for Assessment: Marci Diaz is a 67 y.o. female assessed by the registered Dietitian for consult- s/p TAVR. PMH: includes T2DM, morbid obesity, DEDE, CHF, CAD s/p stent HTN, HLD Nutrition History: Information obtained from chart.. Recent food/fluid intake has been adequate per risk screen. Patient has been consuming the following supplements none notede. Patient has the following cultural/jehovah's witness food needs or preferences: none noted.Patient has the following food allergies or intolerances: nkfa Current Nutrition Prescription: Diet: clear liquid POD #1 Supplements and Modulars: Flush Orders: Propofol Orders: IV dextrose or Fluids: insulin regular infusion 0.5 unit/mL Last Rate: Stopped (07/06/17 2300) niCARdipine phenylephrine IV infusion in D5W Last Rate: Stopped (07/06/17 1610) nacl 0.9% Last Rate: Stopped (07/07/17 1025) nacl 0.9% Last Rate: 25 mL/hr (07/06/17 1430) Current Nutrition Intake: n/a Anthropometrics: Height: 5' 2 (157.5 cm) Admission weight: Weight: (!) 283 lb (128.4 kg) BMI (Calculated): 52.5 BMI indication: >40 extreme obesity (class 3) Usual body weight : Wt Readings from Last 3 Encounters: 07/07/17 (!) 283 lb (128.4 kg) 07/05/17 (!) 284 lb (128.8 kg) 06/28/17 (!) 285 lb (129.3 kg) Physical Findings: The patient has the following physical signs which could indicate malnutrition: none noted GI Status/Output: The patient's GI symptoms include: abdominal distention Bowel Sounds present Skin/Wound: Rob score Rob Scale Score: 15 Medications: Medications reviewed. Labs: Labs reviewed: Results from last 7 days Lab Units 07/07/17 0524 LN-WHITE BLOOD CELL COUNT thou/uL 12.0* LN-HEMOGLOBIN g/dL 11.3* LN-HEMATOCRIT % 33.4* LN-PLATELET COUNT thou/uL 145 Results from last 7 days Lab Units 07/07/17 0524 LN-SODIUM mmol/L 135* LN-POTASSIUM mmol/L 4.4 LN-CHLORIDE mmol/L 105 LN-CO2 mmol/L 21* LN-BLOOD UREA NITROGEN mg/dL 18 LN-CREATININE mg/dL 1.00 LN-CALCIUM mg/dL 8.6 Results from last 7 days Lab Units 07/06/17 1435 LN-ALBUMIN g/dL 3.0* LN-PROTEIN TOTAL g/dL 6.6 LN-BILIRUBIN TOTAL mg/dL 1.0 LN-ALKALINE PHOSPHATASE U/L 69 LN-ALT (SGPT) U/L 22 LN-AST (SGOT) U/L 24 Results from last 7 days Lab Units 07/07/17 0524 LN-MAGNESIUM mg/dL 1.9 Results from last 7 days Lab Units 07/07/17 0524 LN-GLUCOSE mg/dL 229* Accuchecks: [phone] Assessed Nutritional Needs: Assessment weight is 50 kg, with a weight source of ideal weight Estimated Energy Needs: 2797-0894 kcals daily per 22-25 kcal/kg Estimated Protein Needs: 60-75 g daily, 1.2-1.5 g/kg. Estimated Fluid Needs: per cardiology Malnutrition: Not noted Nutrition Risk Level: low risk Nutrition dx: Knowledge deficit s/p TAVR AEB new diet limits Goal: BG < 180, > 70, understand diet Intervention: follow up for diet education needs when pt out of ICU. Diabetic, cardiac, 2 gm Na+ diet when diet fully advanced Monitoring:education readiness, BG, intake and tolerance See Care Plan for Problems, Goals, and Interventions. ROAD COMMISSIONER Elvira Faulkner APRN FAMILY WORKER - 07/06/2017 2:34 PM CST PULMONARY / CRITICAL CARE CONSULTATION NOTE Consultation - Pulmonary/Critical Care Medicine Marci Diaz, 1950, Date / Time of Admission: 07/06/2017 7:36 AM Admitting Dx: Severe aortic stenosis [I35.0] PCP: Elyse Paredes MD, Consulting physician: Ankush Martinez MD Code status: Full Code Extended Emergency Contact Information Primary Emergency Contact: Donna Diaz [employer] Relation: Kdxoxy-Qy-Car ID: Marci Diaz is a 67 y.o. female with severe symptomatic who was admitted for TAVR with GETA. ASSESSMENT 1. Acute hypoxic respiratory failure, multifactorial;obesity, general anesthesia, DEDE. Extubated prior to ICU arrival 2. Severe symptomatic . S/p TAVR with GETA today 3. DM2. Post procedure hyperglycemia On insulin drip 4. Severe DEDE. PSG revealed RDI of 45. On home NCPAP auto flow 5-20 Follows with [facility] sleep clinic 5. Obesity . Advance Directives: Received PLAN Systems to Assess: ?? Pulmonary: Wean supplemental O2 as tolerated; goal O2 sat > 92%. HOB > 30 degrees to limit aspiration risk. ?? Check ABG and adjust support as indicated; avoid acidotic state. ?? Check CXR ?? Add prnalbuterol nebs, pt presently wheezy ?? Home CPAP at hs and with naps ?? Cardiovascular: Cardiac monitoring. ?? SBP goal > 90 mmHg ?? Vasoactive gtts per interventional cardiology ?? Temporary pacing wires present; will use in setting of symptomatic arrhythmia. ?? Neurological: Neuro checks per ICU protocol ?? Pain control: PRN ?? GI/: ?? NPO until extubated and fully awake. ?? Ziegler catheter in place for accurate measurement of I/O. ?? GI prophylaxis: Omeprazole ?? Renal: Monitor I/O's. Electrolyte repletion PRN. Avoid/limit nephrotoxic agents. ?? IVFs: per CV-surgery ?? Heme/Coag: Monitor H/H. ?? Transfuse per CV-surgery. ?? Monitor chest tube output hourly; notify CV-surgery for excessive output or abrupt stop in output. ?? DVT prophylaxis: SubQ heparin ?? Infectious disease: General precautions. ?? Remove lines and drains once no longer required. ?? Endocrine: ?? RHI gtt per ICU protocol. ?? Musculoskeletal: ?? Bedrest; initiate mobility protocol. Lines: A-line, Day# 1, Central line, Day# 1 Code Status: full Thank you for this interesting consultation. Please call if any questions or concerns. The patient and/or the family were educated about the above plan of care and indicated understanding. This patient is considered critically ill and requires ICU level of care due to immediate post Interventional cardiology procedure. Total Critical Care time, not including separate billable procedure time: 45 minutes. Elvira Faulkner [facility] Pulmonary/Critical Care Chief Complaint Severe symptomatic HPI Marci Diaz is a 67 y.o. female with obesity, DEDE(on CPAP) DM2 severe symptomatic who was admitted today for TAVR with GETA. History is provided by: chart review and bedside handoff by BRISA. Pt had general anesthesia, extubated prior to arrival in ICU Some issues with intermittent hypoxia, to ICU on insulin drip which was just started on arrival to ICU Review of Systems Review of systems not obtained due to inability to communicate with the patient. Active Problem List Patient Active Problem List Diagnosis Date Noted ??? S/P TAVR (transcatheter aortic valve replacement) 07/06/2017 ??? Hyperglycemia 07/06/2017 ??? ARF (acute respiratory failure) 07/06/2017 ??? Chronic diastolic congestive heart failure ??? Calculus of kidney 06/07/2017 ??? Urinary tract stones 06/07/2017 ??? DEDE on CPAP 05/27/2017 ??? Type 2 diabetes mellitus without complication, with long-term current use of insulin 05/27/2017 ??? Essential hypertension 05/27/2017 ??? CASTRO (dyspnea on exertion) ??? Coronary artery disease involving [place] coronary artery of [place] heart, angina presence unspecified ??? Severe aortic stenosis 04/16/2017 ??? HLD (hyperlipidemia) 08/14/2015 Medical/Surgical History Past Medical History: Diagnosis Date ??? Bicuspid aortic valve ??? COPD (chronic obstructive pulmonary disease) ??? Depression ??? Diabetes mellitus insulin ??? DJD (degenerative joint disease) ??? Dyspnea ??? Hyperlipidemia ??? Hypertension ??? Kidney stones ??? Morbid obesity ??? Nephrolithiasis ??? DEDE on CPAP ??? Severe aortic stenosis Past Surgical History: Procedure Laterality Date ??? CARDIAC CATHETERIZATION 05/12/2017 ??? CV CORONARY ANGIOGRAM N/A 05/12/2017 Procedure: Coronary Angiogram; Surgeon: Ankush Martinez MD; Location: [facility] Medical Collections Representative; Service: ??? knee replacements Bilateral Allergies Allergies Allergen Reactions ??? Lisinopril Cough ??? Metformin Nausea And Vomiting ??? Erythromycin Base Rash Medications: OUTpatient medications Prior to Admission medications Medication Sig Start Date End Date Taking? Authorizing Provider amoxicillin (AMOXIL) 500 MG capsule Take 500 mg by mouth every 8 (eight) hours. Until all taken 06/30/17 Yes PROVIDER, HISTORICAL aspirin 81 mg chewable tablet Chew 1 tablet (81 mg total) daily. 05/12/17 Yes Dee Dee Sewell CNP celecoxib (CELEBREX) 200 MG capsule Take 200 [...] HISTORICAL sertraline (ZOLOFT) 100 MG tablet Take 100 mg by mouth daily. Patient takes 50mg daily 05/20/15 Yes PROVIDER, HISTORICAL BD INSULIN PEN NEEDLE UF SHORT 31 gauge x 12/15 Ndle USE WITH TOUJEO AND VICTOZA BID 10/12/16 PROVIDER, HISTORICAL Medications: INpatient medications ??? albuterol 2.5 mg Nebulization STAT x1 ??? albuterol 2.5 mg Nebulization Q4H - RT ??? amoxicillin 500 mg Oral Q8H ??? aspirin 81 mg Oral DAILY ??? [START ON 07/09/2017] bisacodyl 10 mg Rectal Once ??? ceFAZolin (ANCEF) IV 2 g Intravenous Q8H ??? celecoxib 200 mg Oral DAILY ??? [START ON 07/07/2017] clopidogrel 75 mg Oral DAILY ??? losartan 50 mg Oral DAILY ??? [START ON 07/08/2017] magnesium hydroxide 30 mL Oral DAILY ??? [START ON 07/07/2017] omeprazole 20 mg Oral QAM AC ??? rosuvastatin 10 mg Oral DAILY ??? sertraline 100 mg Oral DAILY Family History Social History ?? Reviewed Family History Problem Relation Age of Onset ??? Diabetes Father ??? Heart disease Father ??? Cancer Brother esophageal ??? Urolithiasis Neg Hx ??? Clotting disorder Neg Hx ??? Gout Neg Hx ?? Reviewed Social History Social History ??? Marital status: Spouse name: N/A ??? Number of children: N/A ??? 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 Smoking status: Never Smoker ??? Smokeless tobacco: Never Used ??? Alcohol use No ??? Drug use: No ??? Sexual activity: Not on file Other Topics Concern ??? Not on file Social History Narrative Psychosocial Needs Social History Social History Narrative Additional psychosocial needs reviewed per nursing assessment. Physical Exam VITALS: BP 101/46 Pulse 70 Temp 98.6 ??F (37 ??C) (Bladder) Resp 22 Ht 5' 2 (1.575 m) Wt (!) 287 lb 4.8 oz (130.3 kg) SpO2 95% BMI 52.55 kg/m2 Temp: [98 ??F (36.7 ??C)-98.6 ??F (37 ??C)] 98.6 ??F (37 ??C) Heart Rate: [68-70] 70 Resp: [16-22] 22 BP: (101-117)/(46-63) 101/46 SpO2: [95 %-96 %] 95 % PHYSICAL EXAM: GEN: sleepy, in bed HEENT: NC PERRL thick neck NECK: Supple. Tracheal midline PULM: Few anterior wheezes, non labored CVS: RRR ABDOMEN: obese EXTREMITIES/SKIN: No e/c/c NEURO: . field I&O: Intake/Output Summary (Last 24 hours) at 07/06/17 1434 Last data filed at 07/06/17 1426 Gross per 24 hour Intake 1700 ml Output 10 ml Net 1690 ml Pertinent Labs Lab Results: personally reviewed. Serum Glucose range:No results for input(s): POCGLU in the last 72 hours. No results for input(s): PHART, [id number], PO2ART, OXYHB, BEARTCALC, CARBOXYHGB, METHGB, POCPEEP, TEMP, 58821, POCRATE, POCFLOW, PSV in the last 72 hours. Invalid input(s): [id number], 02SAT, VENTTIVOL CBC: Results from last 7 days Lab Units 07/05/17 1024 LN-WHITE BLOOD CELL COUNT thou/uL 7.1 LN-HEMOGLOBIN g/dL 12.9 LN-HEMATOCRIT % 38.1 LN-PLATELET COUNT thou/uL 179 LN-NEUTROPHILS RELATIVE PERCENT % 74* LN-MONOCYTES RELATIVE PERCENT % 5 Chemistry: Results from last 7 days Lab Units 07/05/17 1024 LN-SODIUM mmol/L 140 LN-POTASSIUM mmol/L 4.5 LN-CHLORIDE mmol/L 104 LN-CO2 mmol/L 25 LN-BLOOD UREA NITROGEN mg/dL 26* LN-CREATININE mg/dL 1.16* LN-CALCIUM mg/dL 9.8 LN-ALBUMIN g/dL 3.3* LN-ALT (SGPT) U/L 26 LN-AST (SGOT) U/L 26 LN-ALKALINE PHOSPHATASE U/L 75 LN-BILIRUBIN TOTAL mg/dL 0.9 Coags: Lab Results Component Value Date INR 1.02 07/05/2017 INR 1.51 (H) 01/10/2010 INR 1.26 (H) 01/09/2010 Cardiac Markers: Cardiac/Radiology Studies Radiology: ?? Chest X-Ray: just orderedABG pendnig ROAD COMMISSIONER documented in this encounter Miscellaneous Notes Op Note - Alfonzo Steele MD - 07/06/2017 2:00 PM CST DATE OF SERVICE: 07/06/2017 PREOPERATIVE DIAGNOSIS: Severe aortic stenosis. POSTOPERATIVE DIAGNOSIS: Severe aortic stenosis. PROCEDURE PERFORMED: Transcatheter aortic valve replacement via a right/ trans- femoral arterial approach with a Rigo S3 23 mm valve. SURGEON: Alfonzo Steele MD, PhD ARTIFICIAL FLOWERS DYER: Ankush Martinez MD ANESTHESIA: General endotracheal anesthesia. ANESTHESIOLOGIST: Marquita Bragg MD INDICATION FOR PROCEDURE: Ms. Diaz is a 67-year-old woman with severe aortic ?? stenosis. Because of her sure morbid obesity and significant risk for sternal complications, she is an ??appropriate candidate for transcatheter aortic valve replacement, as opposed to open ?? aortic valve replacement. The patient understands the risks and benefits of the ?? procedure and wishes to undergo the operation. OPERATIVE FINDINGS: There was no significant perivalvular leak. There was no pericardial effusion after the procedure. The patient was hemodynamically stable. OPERATIVE DESCRIPTION IN DETAIL: After obtaining informed consent, the patient was brought to the operating room and placed in the supine position on the operating??room table. Appropriate lines and devices for monitoring were placed by the anesthesia team. The patient's chest, abdomen and groins wereprepped and draped. ??Through a percutaneous right femoral approach, a Rigo S3 23 mm valve deployment was performed. Please see Dr. Martinez's note for details. The deployment was successful. There wereno immediate complications. The patient was taken to the intensive care unit in stable condition. ESTIMATED BLOOD LOSS: Minimal. ALFONZO STEELE MD, PhD ROAD COMMISSIONER documented in this encounter Plan of Treatment Not on filedocumented as of this encounter Procedures Procedure Name Priority Date/Time Associated Comments Diagnosis CROSSMATCH RED CELLS Routine 07/09/2017 12:02 Res ults for this AM RAILROAD COMMISSIONER procedure are i n the results section. CROSSMATCH RED CELLS Routine 07/09/2017 12:02 Res ults for this AM RAILROAD COMMISSIONER procedure are i n the results section. ECHO LIMITED Routine 07/07/2017 11:06 Results for this AM RAILROAD COMMISSIONER procedure are i n the results section. ECG 12-LEAD WITH MUSE ? Routine 07/07/2017 7:00 AM Results for t his [facility] RAILROAD COMMISSIONER procedure are i n the results section. XR CHEST PORT 1 VIEW Routine 07/07/2017 5:38 AM R esults for this RAILROAD COMMISSIONER procedure are i n the results section. XR CHEST PORT 1 VIEW Routine 07/06/2017 3:14 PM R esults for this RAILROAD COMMISSIONER procedure are i n the results section. ECG 12-LEAD WITH MUSE ? STAT 07/06/2017 2:30 PM Results for t his [facility] RAILROAD COMMISSIONER procedure are i n the results section. ECHO REINALDO INTERVENTIONAL Routine 07/06/2017 1:55 PM Severe aort ic Results for this RAILROAD COMMISSIONER stenosis procedure are i n the results section. CV TRANSCATHETER AORTIC Routine 07/06/2017 1:41 PM Severe aort ic Results for this VALVE RAILROAD COMMISSIONER stenosis procedure are i n REPLACEMENT-FEMORAL the resu lts APPROACH section. documented in this encounter Results Crossmatch red cells (07/09/2017 12:02 AM RAILROAD COMMISSIONER) [facility] Method Time Signature Crossmatch Compatible 07/09/2017 [facility] BLOOD 12:02 AM BANK RAILROAD COMMISSIONER BLOOD [id number] 07/09/2017 [facility] BLOOD EXPIRATION 12:02 AM BANK DATE RAILROAD COMMISSIONER Unit ABO/RH A Pos 07/09/2017 [facility] BLOOD 12:02 AM BANK RAILROAD COMMISSIONER Unit Number [id number] 07/09/2017 [facility] BLOOD 12:02 AM BANK RAILROAD COMMISSIONER Status Released 07/09/2017 [facility] BLOOD 12:02 AM BANK RAILROAD COMMISSIONER Component Red Blood Cells 07/09/2017 [facility] BLOOD 12:02 AM BANK RAILROAD COMMISSIONER Product Code [id number] 07/09/2017 [facility] BLOOD 12:02 AM BANK RAILROAD COMMISSIONER BLOOD TYPE [id number] 07/09/2017 [facility] BLOOD 12:02 AM BANK RAILROAD COMMISSIONER CODING SYSTEM [id number] 07/09/2017 BLOOD 12:02 AM BANK RAILROAD COMMISSIONER Specimen (Source) Anatomical Location Collection Method / Collectio n Time Received Time / Laterality Volume Ankush Martinez MD LAB - BLOOD BANK PRODUCT ORD ER Performing Organization Address City/[facility]/ZIP Code Phon e Number [facility] BLOOD BANK [address] [place] [address] [facility] BLOOD BANK [address] [place] [id number] Crossmatch red cells (07/09/2017 12:02 AM RAILROAD COMMISSIONER) [facility] Method Time Signature Crossmatch Compatible 07/09/2017 [facility] BLOOD 12:02 AM BANK RAILROAD COMMISSIONER BLOOD [id number] 07/09/2017 [facility] BLOOD EXPIRATION 12:02 AM BANK DATE RAILROAD COMMISSIONER Unit ABO/RH A Pos 07/09/2017 [facility] BLOOD 12:02 AM BANK RAILROAD COMMISSIONER Unit Number [id number] 07/09/2017 [facility] BLOOD 12:02 AM BANK RAILROAD COMMISSIONER Status Released 07/09/2017 [facility] BLOOD 12:02 AM BANK RAILROAD COMMISSIONER Component Red Blood Cells 07/09/2017 [facility] BLOOD 12:02 AM BANK RAILROAD COMMISSIONER Product Code [id number] 07/09/2017 [facility] BLOOD 12:02 AM BANK RAILROAD COMMISSIONER BLOOD TYPE 6200 07/09/2017 [facility] BLOOD 12:02 AM BANK RAILROAD COMMISSIONER CODING SYSTEM [id number] 07/09/2017 [facility] BLOOD 12:02 AM BANK RAILROAD COMMISSIONER Specimen (Source) Anatomical Location Collection Method / Collectio n Time Received Time / Laterality Volume Ankush Martinez MD LAB - BLOOD BANK PRODUCT ORD ER Performing Organization Address City/[facility]/ZIP Code Phon e Number [facility] BLOOD BANK [address] [place] [address] [facility] BLOOD BANK [address] [place] [address], [place] [address] Echocardiogram Limited (07/07/2017 11:06 AM RAILROAD COMMISSIONER) [facility] Method Time Signature AV mean oniel 176 cm/s 07/07/2017 2:04 PM RAILROAD COMMISSIONER AV mean gradient 15 mmHg 07/07/2017 2:04 PM RAILROAD COMMISSIONER AV VTI 58.9 cm 07/07/2017 2:04 PM RAILROAD COMMISSIONER AV peak oniel 270 cm/s 07/07/2017 2:04 PM RAILROAD COMMISSIONER LVOT diam 2 cm 07/07/2017 2:04 PM RAILROAD COMMISSIONER LEFT VENTRICULAR 2 mmHg 07/07/2017 OUTFLOW TRACT MEAN 2:04 PM RAILROAD COMMISSIONER GRADIENT LVOT peak VTI 25.8 cm 07/07/2017 2:04 PM RAILROAD COMMISSIONER LEFT VENTRICULAR 71.9 cm/s 07/07/2017 OUTFLOW TRACT MEAN 2:04 PM RAILROAD COMMISSIONER VELOCITY LVOT peak oniel 116 cm/s 07/07/2017 2:04 PM RAILROAD COMMISSIONER LEFT VENTRICULAR 5 mmHg 07/07/2017 OUTFLOW TRACT PEAK 2:04 PM RAILROAD COMMISSIONER GRADIENT BSA 2.39 m2 07/07/2017 2:04 PM RAILROAD COMMISSIONER End systolic index 62 in 07/07/2017 (mL/m2) 2:04 PM RAILROAD COMMISSIONER End diastolic 4,528 lbs 07/07/2017 index (mL/m2) 2:04 PM RAILROAD COMMISSIONER BP 109/53 mmHg 07/07/2017 2:04 PM RAILROAD COMMISSIONER HR 68 bpm 07/07/2017 2:04 PM RAILROAD COMMISSIONER AV area 1.4 cm2 07/07/2017 2:04 PM RAILROAD COMMISSIONER AV DIM IND oniel 0.4 07/07/2017 2:04 PM RAILROAD COMMISSIONER LVOT area 3.14 cm2 07/07/2017 2:04 PM RAILROAD COMMISSIONER LVOT SV 81.0 cm3 07/07/2017 2:04 PM RAILROAD COMMISSIONER AV peak gradient 29.2 mmHg 07/07/2017 2:04 PM RAILROAD COMMISSIONER LV SVi 33.9 ml/m2 07/07/2017 2:04 PM RAILROAD COMMISSIONER LV CO 5.5 l/min 07/07/2017 2:04 PM RAILROAD COMMISSIONER LV Ci 2.3 l/min/m2 07/07/2017 2:04 PM RAILROAD COMMISSIONER Height 62.0 in 07/07/2017 2:04 PM RAILROAD COMMISSIONER Weight 283 lbs 07/07/2017 2:04 PM RAILROAD COMMISSIONER AV DIMENSIONLESS 0.4 07/07/2017 INDEX VTI 2:04 PM RAILROAD COMMISSIONER Echo LVEF 65 % 07/07/2017 Estimated 2:04 PM RAILROAD COMMISSIONER Anatomical Region Laterality Modality Echocardiography Specimen (Source) Anatomical Collection Method Collection Time Re ceived Time Location / / Volume Laterality 07/07/2017 10:06 AM RAILROAD COMMISSIONER Narrative 07/07/2017 2:04 PM RAILROAD COMMISSIONER ?? Left ventricle ejection fraction is normal. The estimated left ventricular ejection fraction is 65%. ?? There is a bioprosthetic valve presen t. There is no aortic insufficiency present. The prosthetic valve is normal. ?? No pericardial effusion. ?? When compared to the previous study d ated 03/25/2017, bioprosthetic aortic valve is now present, replacing stenotic [place] valve Procedure Note Ilya Rogers MD / Provider, Histor ica - 01/07/2021 ?? Left ventricle ejection fraction is n ormal. The estimated left ventricular ejection fraction is 65%. ?? There is a bioprosthetic valve presen t. There is no aortic insufficiency present. The prosthetic valve is normal. ?? No pericardial effusion. ?? When compared to the previous study d ated 03/25/2017, bioprosthetic aortic valve is now present, replacing stenotic [place] valve Dee Dee Sewell [facility] CV ECHO ORDERABLES ECG 12-LEAD WITH MUSE (LHE) (07/07/2017 7:00 AM RAILROAD COMMISSIONER) [facility] Method Time Signature Systolic Blood mmHg 07/07/2017 HE RADIANT Pressure 3:53 PM CONVERSION RAILROAD COMMISSIONER Diastolic Blood mmHg 07/07/2017 HE RADIANT Pressure 3:53 PM CONVERSION RAILROAD COMMISSIONER Ventricular Rate 56 BPM 07/07/2017 HE RADIANT 3:53 PM CONVERSION RAILROAD COMMISSIONER Atrial Rate 56 BPM 07/07/2017 HE RADIANT 3:53 PM CONVERSION RAILROAD COMMISSIONER VT Interval 148 ms 07/07/2017 HE RADIANT 3:53 PM CONVERSION RAILROAD COMMISSIONER QRS Duration 94 ms 07/07/2017 HE RADIANT 3:53 PM CONVERSION RAILROAD COMMISSIONER QT 430 ms 07/07/2017 HE RADIANT 3:53 PM CONVERSION RAILROAD COMMISSIONER QTc 414 ms 07/07/2017 HE RADIANT 3:53 PM CONVERSION RAILROAD COMMISSIONER P [place] 60 degrees 07/07/2017 HE RADIANT 3:53 PM CONVERSION RAILROAD COMMISSIONER R AXIS 10 degrees 07/07/2017 HE RADIANT 3:53 PM CONVERSION RAILROAD COMMISSIONER T [place] 21 degrees 07/07/2017 HE RADIANT 3:53 PM CONVERSION RAILROAD COMMISSIONER Interpretation Sinus bradycardia with sinus arrhythmia 07/07/2017 HE RADIANT ECG Otherwise normal ECG 3:53 PM CONVERSIO N When compared with ECG of 06-JUL-2017 14:35, RAILROAD COMMISSIONER No significant change was found Confirmed by OPAL ??MURIEL CLEMENTS LOC:[facility]USHRA ([id number]) on 07/07/2017 3 :53:52 PM Specimen Anatomical Collection Method Collection Time Receive d Time (Source) Location / / Volume Laterality 07/07/2017 7:00 AM 7 3:53 RAILROAD COMMISSIONER PM RAILROAD COMMISSIONER Dee Dee Sewell FAMILY WORKER ECG ORDERABLES Performing Organization Address City/State/ZIP Code Phon e Number HE CARDIOLOGY CONVERSION HE RADIANT CONVERSION XR Chest Port 1 View (07/07/2017 5:38 AM RAILROAD COMMISSIONER) Anatomical Region Laterality Modality Chest Digital Radiography Specimen (Source) Anatomical Location Collection Method / Collectio n Time Received Time / Laterality Volume Narrative 07/07/2017 7:08 AM RAILROAD COMMISSIONER XR CHEST 1 VIEW PORTABLE 07/07/2017 5:38 AM INDICATION: s/p transfemoral TAVR COMPARISON: 07/06/2017 FINDINGS: Minimal change. Borderline car diomegaly, TAVR present. Right IJ catheter appears to contain a transvenous pacemaker. Pulmonary vessels normal. Lungs are clear. Procedure Note Carlos Mckeon MD - 01/07/2021Formatt ing of this note might be different from the original. XR CHEST 1 VIEW PORTABLE 07/07/2017 5:38 AM INDICATION: s/p transfemoral TAVR COMPARISON: 07/06/2017 FINDINGS: Minimal change. Borderline car diomegaly, TAVR present. Right IJ catheter appears to contain a transvenous pacemaker. Pulmonary vessels normal. Lungs are clear. Dee Dee Sewell [facility] ORDE OSVALDO XR Chest Port 1 View (07/06/2017 3:14 PM RAILROAD COMMISSIONER) Anatomical Region Laterality Modality Chest Digital Radiography Specimen (Source) Anatomical Location Collection Method / Collectio n Time Received Time / Laterality Volume Narrative 07/06/2017 3:32 PM RAILROAD COMMISSIONER XR CHEST 1 VIEW PORTABLE 07/06/2017 3:14 PM INDICATION: hypoxia COMPARISON: 07/05/2017 FINDINGS: New aortic valve prosthesis. T emporary pacemaker projected over the right ventricle. Some new mild atelectasis left lower lung and overall shallow inspiration. Lungs otherwise clear. Procedure Note Buddy Gong - 01/07/2021Formatting o f this note might be different from the original. XR CHEST 1 VIEW PORTABLE 07/06/2017 3:14 PM INDICATION: hypoxia COMPARISON: 07/05/2017 FINDINGS: New aortic valve prosthesis. T emporary pacemaker projected over the right ventricle. Some new mild atelectasis left lower lung and overall shallow inspiration. Lungs otherwise clear. Elvira Faulkner APRN [facility] ORD ERABLES ECG 12-LEAD WITH MUSE (LHE) (07/06/2017 2:30 PM RAILROAD COMMISSIONER) [facility] Method Time Signature Systolic Blood mmHg 07/06/2017 HE RADIANT Pressure 3:30 PM CONVERSION RAILROAD COMMISSIONER Diastolic Blood mmHg 07/06/2017 HE RADIANT Pressure 3:30 PM CONVERSION RAILROAD COMMISSIONER Ventricular Rate 66 BPM 07/06/2017 HE RADIANT 3:30 PM CONVERSION RAILROAD COMMISSIONER Atrial Rate 66 BPM 07/06/2017 HE RADIANT 3:30 PM CONVERSION RAILROAD COMMISSIONER VT Interval 170 ms 07/06/2017 HE RADIANT 3:30 PM CONVERSION RAILROAD COMMISSIONER QRS Duration 88 ms 07/06/2017 HE RADIANT 3:30 PM CONVERSION RAILROAD COMMISSIONER QT 440 ms 07/06/2017 HE RADIANT 3:30 PM CONVERSION RAILROAD COMMISSIONER QTc 461 ms 07/06/2017 HE RADIANT 3:30 PM CONVERSION RAILROAD COMMISSIONER P [place] 57 degrees 07/06/2017 HE RADIANT 3:30 PM CONVERSION RAILROAD COMMISSIONER R AXIS -4 degrees 07/06/2017 HE RADIANT 3:30 PM CONVERSION RAILROAD COMMISSIONER T [place] 49 degrees 07/06/2017 HE RADIANT 3:30 PM CONVERSION RAILROAD COMMISSIONER Interpretation Normal sinus rhythm 07/06/2017 HE R ADIANT ECG Normal ECG 3:30 PM CONVERSION When compared with ECG of 05-JUL-2017 10:37, RAILROAD COMMISSIONER No significant change was found Confirmed by MARBIN ??ILYA CLEMENTS LOC: ([id number]) on 7 3:30:16 PM Specimen Anatomical Collection Method Collection Time Receive d Time (Source) Location / / Volume Laterality 07/06/2017 2:30 PM 3:30 RAILROAD COMMISSIONER PM RAILROAD COMMISSIONER Dee Dee Sewell FAMILY WORKER ECG ORDERABLES Performing Organization Address City/State/ZIP Code Phon e Number HE CARDIOLOGY CONVERSION HE RADIANT CONVERSION ECHO REINALDO Interventional (07/06/2017 1:55 PM RAILROAD COMMISSIONER) [facility] Method Time Signature AV mean oniel 122 cm/s 07/06/2017 2:13 PM RAILROAD COMMISSIONER AV mean gradient 7 mmHg 07/06/2017 2:13 PM RAILROAD COMMISSIONER AV VTI 45.8 cm 07/06/2017 2:13 PM RAILROAD COMMISSIONER AV peak oniel 192 cm/s 07/06/2017 2:13 PM RAILROAD COMMISSIONER LVOT diam 2 cm 07/06/2017 2:13 PM RAILROAD COMMISSIONER LEFT VENTRICULAR 1 mmHg 07/06/2017 OUTFLOW TRACT MEAN 2:13 PM RAILROAD COMMISSIONER GRADIENT LVOT peak VTI 16.5 cm 07/06/2017 2:13 PM RAILROAD COMMISSIONER LEFT VENTRICULAR 48.6 cm/s 07/06/2017 OUTFLOW TRACT MEAN 2:13 PM RAILROAD COMMISSIONER VELOCITY LVOT peak oniel 70.6 cm/s 07/06/2017 2:13 PM RAILROAD COMMISSIONER LEFT VENTRICULAR 2 mmHg 07/06/2017 OUTFLOW TRACT PEAK 2:13 PM RAILROAD COMMISSIONER GRADIENT BSA 2.39 m2 07/06/2017 2:13 PM RAILROAD COMMISSIONER End systolic index 62 in 07/06/2017 (mL/m2) 2:13 PM RAILROAD COMMISSIONER End diastolic 4,596.8 lbs 07/06/2017 index (mL/m2) 2:13 PM RAILROAD COMMISSIONER BP 117/63 mmHg 07/06/2017 2:13 PM RAILROAD COMMISSIONER HR 68 bpm 07/06/2017 2:13 PM RAILROAD COMMISSIONER AV annulus area 4.40 cm 07/06/2017 2:13 PM RAILROAD COMMISSIONER AV area 1.1 cm2 07/06/2017 2:13 PM RAILROAD COMMISSIONER AV DIM IND oniel 0.4 07/06/2017 2:13 PM RAILROAD COMMISSIONER LVOT area 3.14 cm2 07/06/2017 2:13 PM RAILROAD COMMISSIONER LVOT SV 51.8 cm3 07/06/2017 2:13 PM RAILROAD COMMISSIONER AV peak gradient 14.7 mmHg 07/06/2017 2:13 PM RAILROAD COMMISSIONER LV SVi 21.7 ml/m2 07/06/2017 2:13 PM RAILROAD COMMISSIONER LV CO 3.5 l/min 07/06/2017 2:13 PM RAILROAD COMMISSIONER LV Ci 1.5 l/min/m2 07/06/2017 2:13 PM RAILROAD COMMISSIONER Height 62.0 in 07/06/2017 2:13 PM RAILROAD COMMISSIONER Weight 287 lbs 07/06/2017 2:13 PM RAILROAD COMMISSIONER AV DIMENSIONLESS 0.4 07/06/2017 INDEX VTI 2:13 PM RAILROAD COMMISSIONER AORTIC VALVE 2.20 cm 07/06/2017 ANNULUS SHORT AXIS 2:13 PM RAILROAD COMMISSIONER AORTIC VALVE 2.50 cm 07/06/2017 ANNULUS LONG AXIS 2:13 PM RAILROAD COMMISSIONER Echo LVEF 65 % 07/06/2017 Estimated 2:13 PM RAILROAD COMMISSIONER Anatomical Region Laterality Modality Echocardiography Specimen (Source) Anatomical Collection Method Collection Time Re ceived Time Location / / Volume Laterality 07/06/2017 7:37 AM RAILROAD COMMISSIONER Narrative 07/06/2017 2:13 PM RAILROAD COMMISSIONER ?? Aortic Valve: The valve is tricuspid. There is moderate global calcification with reduced excursion of the aortic valve present. Severe stenosis. Post TAVR- normal gradient and trace ihsan-valvular leak. ?? Left Ventricle: Normal size and systo lic function.The estimated left ventricular ejection fraction is 65%. This represents a normal ejection fraction. Mild hypertrophy noted. ?? Pericardium: No pericardial effusion. Procedure Note Mildred, Van, MD / Provider, Historical - 01/07/2021 ?? Aortic Valve: The valve is tricuspid. There is moderate global calcification with reduced excursion of the aortic valve present. Severe stenosis. Post TAVR- normal gradient and trace ihsan-valvular leak. ?? Left Ventricle: Normal size and systo lic function.The estimated left ventricular ejection fraction is 65%. This represents a normal ejection fraction. Mild hypertrophy noted. ?? Pericardium: No pericardial effusion. Ankush Martinez MD CV ECHO ORDERABLES Transcatheter Aortic Valve Replacement-Femoral Approach (07/06/2017 1:41 PM RAILROAD COMMISSIONER) Anatomical Region Laterality Modality Other Specimen (Source) Anatomical Collection Method Collection Time Re ceived Time Location / / Volume Laterality 06/08/2017 10:59 AM RAILROAD COMMISSIONER Narrative 07/06/2017 2:16 PM RAILROAD COMMISSIONER Procedure: Transcatheter aortic valve replacement Indication: Severe symptomatic aortic st enosis with the patient felt to be an appropriate candidate for transcatheter aortic valve replacement after a thorough multidisciplinary approach, including a visit with two surgeons. Operators: Interventional Cardiology: Ankush figueroa MD; Chidi Barcenas MD CT Surgery: Alfonzo Steele MD Echocardiography: Van Levy MD Approach: Rt transfemoral Anesthesia: GA Procedure Details: Informed consent obtained before the pat ient was brought to the procedure room. ??Appropriate timeout was performed before the procedure was started. Access was obtained in the left femoral artery and vein using the modified Seldinger technique, and then in the right femoral artery under direct fluoroscopic visualization. ??The right femoral arteriot cheryl was then preclosed with two Perclo se devices deployed at 90?? to each other. ??A righ t internal jugular catheter placed by anesthesia, was used to place a temporary pacemaker in the RV. A pigtail catheter was placed at the aor tic annulus via the left femoral artery to determine the coplanar angle. After appropriate anticoagulation, the [employer] E sheath was placed through the right femoral arteriotomy with the help of a stiff guidewire. ??The aortic valve was then crossed and a Safari 2 wire was placed at the LV apex. Balloon aortic valvuloplasty was then pe rformed under rapid pacing. A 23mm (with 2cc extra) Rigo 3 valve w as then successfully deployed in the aortic position under rapid pacing. ??Post deployment to the patient had good hemodynamics, with trace aortic insufficiency and a mean gradient of 7 mmHg. Relative aortic/venticular implant ratio was 80/2 0. The delivery system and sheath were then removed, with successful hemostasis of the arteriotomy by deployment of the previously placed Perclose sutures. The left femoral artery and venous sheat hs were removed as well with successful hemostasis via the Angio-Seal device. Conclusions: 1. Severe symptomatic aortic stenosis st atus post successful transcatheter aortic valve replacement with a 23mm Rigo 3 valve, delivered via the right transfemoral approach. 2. ??Trace aortic insufficiency post dep loyment with a mean gradient of 7 mmHg. Postprocedure patient status: Patient planned to be extubated in the O R and then transferred to the ICU for ongoing management. ??Temporary pacemaker to be left in place overnight and removed in the next 24 hours based on clinical need. Ankush Martinez MD Procedure Note Ankush Martinez - 01/08/2021Formatting o f this note might be different from the original. Procedure: Transcatheter aortic valve re placement Indication: Severe symptomatic aortic st enosis with the patient felt to be an appropriate candidate for transcatheter aortic valve replacement after a thorough multidisciplinary approach, including a visit with two surgeons. Operators: Interventional Cardiology: Ankush figueroa MD; Chidi Barcenas MD CT Surgery: Alfonzo Steele MD Echocardiography: Van Levy MD Approach: Rt transfemoral Anesthesia: GA Procedure Details: Informed consent obtained before the pat ient was brought to the procedure room. Appropriate [...] A pigtail catheter was placed at the aor tic annulus via the left femoral artery to determine the coplanar angle. After appropriate anticoagulation, the [employer] E sheath was placed through the right femoral arteriotomy with the help of a stiff guidewire. The aortic valve was then crossed and a Safari 2 wire was placed at the LV apex. Balloon aortic valvuloplasty was then pe rformed under rapid pacing. A 23mm (with 2cc extra) Rigo 3 valve w as then successfully deployed in the aortic position under rapid pacing. Post deployment to the patient had good hemodynamics, with trace aortic insufficiency and a mean gradient of 7 mmHg. Relative aortic/venticular implant ratio was 80/2 0. The delivery system and sheath were then removed, with successful hemostasis of the arteriotomy by deployment of the previously placed Perclose sutures. The left femoral artery and venous sheat hs were removed as well with successful hemostasis via the Angio-Seal device. Conclusions: 1. Severe symptomatic aortic stenosis st atus post successful transcatheter aortic valve replacement with a 23mm Rigo 3 valve, delivered via the right transfemoral approach. 2. Trace aortic insufficiency post deplo yment with a mean gradient of 7 mmHg. Postprocedure patient status: Patient planned to be extubated in the O R and then transferred to the ICU for ongoing management. Temporary pacemaker to be left in place overnight and removed in the next 24 hours based on clinical need. Ankush Martinez MD Ankush Martinez MD CV CARDIAC CATH ORDERABLES documented in this encounter Visit Diagnoses Diagnosis Severe aortic stenosis Aortic valve disorders documented in this encounter Care Teams Blending Line Attendant Relationship Specialty Start Date End Date Elyse Paredes MD PCP - General [facility] Practice 12/22/13 04/21/22 [address] [place] [address] documented as of this encounter
--- OUTSIDE RECORDS SUMMARY | 2022-07-02 13:44 | XMS_ITS | Encounter Summary ---
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
--- OUTSIDE RECORDS SUMMARY | 2022-07-02 13:44 | XMS_ITS | Encounter Summary ---
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 HLD (hyperlipidemia) ??? Severe aortic stenosis ??? CASTRO (dyspnea on exertion) ??? Coronary artery disease involving [place] coronary artery of [place] heart, angina presence unspecified ??? DEDE on CPAP ??? Type 2 diabetes mellitus without complication, with long-term current use of insulin ??? Essential hypertension ??? Calculus of kidney ??? Urinary tract stones ??? Chronic diastolic congestive heart failure ??? S/P TAVR (transcatheter aortic valve replacement) ??? Hyperglycemia ??? ARF (acute respiratory failure) ??? Acute respiratory failure, unspecified whether with hypoxia or hypercapnia Physical Assessment Precautions/ Physical Limitations: arthritis in all joints and hands Oxygen: No O2 Sats: 96% Lung Sounds: Edema: none Incisions: dry, intact incisional site Sleeping Pattern: good ,with CPAP on Appetite: good Nutrition Risk Screen: N/A Pain Location: all joint and hands Characteristics:acht=y Intensity: (0-10 scale) 2 Current Pain Management: Celebrex Intervention: regularly scheduled Response: decreased pain Psychosocial/ Emotional Health 1. In the past 12 months, have you been in a relationship where you have been abused physically, emotionally, sexually or financially? No Warehouse Logistics Manager notified: NA 2. Who do you turn to for emotional support?: long time friend, Nano 3. Do you have cultural or spiritual needs? No 4. Have there been any major life changes in the past 12 months? Yes, of only brother and Mom in the last year and her personal health issues Referral Information Primary Physician: Elyse Paredes MD Cement Loader: Dr Michelle Martinez Surgeon: N/A Home exercise/Equipment: pinky Patient's long-term goal(s): Goal is to walk 2 miles and stand for an hour in preparation of her trip tp [place] in April 2018 1. Living Accommodations: [facility], 2 level with 14 steps up to her bedroom Steps: Yes, 14 steps Support people at home: 2 cats 2. Marital Status: 3. Family is not able to assist with cares Muslim/Community involvement: volunteer with [employer] once a month 4. Recreation/Hobbies: loom weaving, silk scarf dying, wood block printing, Historical Provider - 07/22/2017 1:00 PM CST Pt came into her initial Cardiac Rehab session with an ECG change of a New-Onset of Atrial Fibrillation, rates of 110-130's at rest. Her rate increased to 163 bpm with a walk which was discontinued after 1 minute. Pt is asymptomatic. ECG's were sent and can be viewed in media. She is scheduled to see you tomorrow, July 23 at 1:30 pm. Therapist advised pt to keep her activity low and deferred ptfrom walking for exercise and grocery shopping until evaluated further by you tomorrow. Historical Provider - 07/22/2017 1:00 PM CST ITP ASSESSMENT Assessment Day: Initial Session Number: 1 Diagnosis: Valve;Stent (TAVR) Risk Stratification: High Referring Provider: Ankush Martinez MD EXERCISE Exercise Assessment: Initial 6 Minute Walk Test Pre Pre Exercise [...] Exercise Plan Goals Next 30 days ADL'S: Pt will climb the 14 steps up to her bedroom pacing herself and not have sxs of overexertion Leisure: Pt will engage with one social activity with her friends weekly. Work: Pt will return to work full-time. Exercise Prescription Exercise Mode: Treadmill;Bike;Nustep;Arm Erg.;Elliptical;Hallway Walking Frequency: 2-3 x week Duration: 30-40 minutes Intensity / THR: 20-30 beats above resting heart rate RPE 11-14 Progression / Met level: 3.0-4.0 met level Resistive Training?: No Current Exercise (mins/week): 16 Interventions Home Exercise: Mode: walking Frequency: 3-4 x week Duration: 16-30 min/day Education Material : Provide written material;Educational videos;Individual education and counseling;Offer educational classes Education Completed No Data Recorded Exercise Follow-up/Discharge No Data Recorded NUTRITION Nutrition Assessment: Initial Nutrition Risk Factors: Nutrition Risk Factors: Diabetes;Dyslipidemia;Overweight HbA1c: 7.5 Monitors blood sugar at home: Yes Frequency: 3-4 x daily Cholesterol: 150 LDL: 78 HDL: 45 Triglycerides: 136 Nutrition Plan Interventions Nutrition Interventions: Diet consult;Diet class;Therapist/Patient discussion;Educational videos;Provide with written material Education Completed Goals Nutrition Goals (Next 30 days): Patient will lose weight Goals Met Nutrition Goals Met: Completed Nutritional Risk Screen;Provided Rate your Plate Survey;Reviewed Dietitian schedule Height, Weight, and BMI Weight: 278 lb 12.8 oz (126.5 kg) Height: 5' 2 (1.575 m) BMI: 50.98 Nutrition Follow-up Other Risk Factors Other Risk Factor Assessment: Initial HTN Risk Factor: Hypertension Pre Exercise BP: 111/65 Post Exercise BP: 114/68 Hypertension Plan Goals HTN Goals: Take medication as prescribed;Exercises regularly Goals Met No Data Recorded HTN Interventions HTN Interventions: Therapist/patient discussion;Provide written material;Offer educational videos;Offer educational classes;Diet consult HTN Education Completed Tobacco Risk Factor: NA Risk Factor Follow-up PSYCHOSOCIAL Psychosocial Assessment: Initial [facility] Q of L Summary Score: 28 ANA-D Score: 6 Psychosocial Risk Factor: Stress Psychosocial Plan Interventions If ANA-D > 15 send letter to MD Interventions: Offer educational videos and classes;Provide written material;Individual education and counseling Education Completed Goals Goals (Next 30 days): Identified Support system;Identify stressors Goals Met Psychosocial Follow-up Patient involved in Goal setting?: Yes. Pt came into initial Phase 2 Cardiac rehab session with a new-onset ECG change of Atrial Fibrillation. Rates were in 100-130 bpm range at rest. Her HR increased to the 160 bpm range with a one minute walk. Exercise was stopped due to high HR, although pt was asymptomatic. Ashley Frey NP was consulted. Pt will follow up with her tomorrow, July 23 at 1:30 pm. Signature: Date: Time: documented in this encounter Plan of Treatment Not on filedocumented as of this encounter Procedures Procedure Name Priority Date/Time Associated Diagnosis Comme nts EKG CARDIAC - HIM SCAN 07/22/2017 EKG CARDIAC - HIM SCAN 07/22/2017 documented in this encounter Results EKG CARDIAC - HIM SCAN (07/22/2017) Specimen (Source) Anatomical Location Collection Method / Collectio n Time Received Time / Laterality Volume Narrative This result has an attachment that is no t available. Historical Provider ECG ORDERABLES EKG CARDIAC - HIM SCAN (07/22/2017) Specimen (Source) Anatomical Location Collection Method / Collectio n Time Received Time / Laterality Volume Narrative This result has an attachment that is no t available. Historical Provider ECG ORDERABLES documented in this encounter Visit Diagnoses Diagnosis S/P TAVR (transcatheter aortic valve rep lacement) documented in this encounter Care Teams Water Operator Relationship Specialty Start Date End Date Elyse Paredes MD PCP - General Family Practice 12/22/13 04/21/22 [address] [address] documented as of this encounter
--- OUTSIDE RECORDS SUMMARY | 2022-07-02 13:44 | XMS_ITS | Encounter Summary ---
:1950 Author Organization [facility] Address [address] [place] [address] Care Team Providers Name Role Phone Elyse Paredes MD Primary Care Provider Reason for Visit Reason Comments Follow Up Encounter Details Date Type Department Care Team Description 07/29/2017 Office Visit - [facility] Jun Salazar atrial fibrillation (H); [facility] D[facility] on CPA P; Fransico HYDE Essential hypertension; [address] [facility] S/P TAVR (transcatheter aort ic valve replacement) [place], [place] [id number] [place], [place] [phone] [id number] Social History Tobacco Use Types Packs/Day Years [...] - - Weight 127.1 kg (280 lb 3.2 oz) 07/29/2017 8:59 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 She is also had more fatigue since then. It appears persistent now not paroxysmal as symptoms consistent. She was also noted to be in A. fib on 07/23, 07/27 and again today 07/29. I discussed since she has been in A. fib for over a week she is likely to stay in atrial fib. This could have been triggered with TAVR. I also discussed that atrial fib is more common and valvular heart disease. It will likely be an ongoing issue but will not know for sure until she has a second episode. This occurred within the month of TAVR but not acutely within days of procedure. This is also why I am suspicious that it will be an ongoing issue forher. I discussed the difference between regular rhythm and atrial fib. I discussed rate versus rhythm control is decided on symptoms. I discussed natural progression. I discussed the call system in [facility]. If she suddenly reverted back into sinus rhythm she might have bradycardic symptoms on higher dose of metoprolol and to hold metoprolol and call if she had bradycardic symptoms. She has indirect symptoms. She does not have palpitations and did not realize her heart rate was fast. Symptoms are improving with some rate control. She has noticed dyspnea on exertion is significantly better since Ashley FURNITURE ASSEMBLER started metoprolol tartrate 25 mg twice daily. Her heart rates are still fast in A. fib today so to increase metoprolol tartrate from 25-50 mg twice daily. Will follow in cardiac rehab for rate control. Encouraged to continue with cardiac rehab. I spent time discussing cardioversion and prep for this. See after visit summary for more details. Orders were placed. Due to tendency towards lower heart rates in regular rhythm will decrease metoprolol tartrate back to 25 mg p.o. twice daily the morning ofcardioversion. To take Lantus at night before cardioversion is normal. Will hold NovoLog the morningof cardioversion. Her sugars have been running high recently. [id number] score of 5 with one point each for age 65-74, female gender, coronary artery disease, hypertension and type 2 diabetes. She has mild kidney dysfunction . I contrasted warfarin with novel anticoagulants. I discussed risk of other bleeding with anticoagulation. Guidelines recommend anticoagulation due to [id number] score of 5 unless risk greater than benefit. I discussed food, alcohol and med interactions with warfarin and need for lab monitoring. I gave her warfarin packet and did teaching as this had not occurred previously. I contrasted that with short half life of novel anticoagulants. No lab monitoring needed and discussed importance of not missing any doses. I discussed no food interactions and less med interactions. 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 andrews once this. She has [employer] insurance and I believe their preference will be for Eliquis. With Eliquis, I discussed q 12 hr dosing and can go in a pill box. After discussion, Marci Diaz wants to go on Eliquis ifpossible. I will question Dr. Martinez and call Xiomara after I get a response back from him. If possiblewe will switch her to Eliquis. Cardioversion could then be 21 days after consistent use of Eliquis to every 12 hours with no missed doses. She will use her cell phone to as a reminder. For now we will set up INRs weekly in case Dr. Martienz wants her to stay on warfarin. To continue warfarin 5 mg every day except Wednesday and Wednesday to take 7.5 mg on those days. Will set up INR checks for immediately preceding her cardiac rehab on Wednesdays. Will be dosed by Gertrude Golden RN. Okay to be on novel agents from my perspective but will need to query Dr. Martinez. If she can be on novel agents she would prefer this. - Discontinue: metoprolol tartrate (LOPRESSOR) 50 MG tablet; Take 1 tablet (50 mg total) by mouth 2 (two) times a day. Dispense: 60 tablet; Refill: 1 - EP Cardioversion External; Future; Expected date: 07/29/17 DEDE on CPAP and uses CPAP consistently. Essential hypertension and well-controlled. Appears to have adequate room for addition of metoprololwithout changes in other antihypertensive. S/P TAVR (transcatheter aortic valve replacement) and had significant clinical improvement almost immediately after TAVR and now less so due to persistent A. fib. Other orders - BD INSULIN PEN NEEDLE UF MINI 31 gauge x 3/16 Ndle; USE 4-5 PER DAY UTD; Refill: 0 - Verify informed consent for Elective Cardioversion; Standing - Vital signs; Standing - NPO 8 hours prior to procedure; Standing - Notify Anesthesiologist -; Standing - Verify 100% compliance with oral anti-coagulant over the past 3 weeks verbally with the patient prior to cardioversion. Notify procedularlist if missed doses.; Standing - Emergency equipment at bedside; Standing - Oxygen nasal cannula; Standing - Inpatient consult to Anesthesiology Reason for Consult? Cardioversion; Did you contact the consulting MD? No; Consult priority: Today (urgent); Communication for MD: No phone communication necessary for now; Standing - POCT INR (if on warfarin); Standing - Insert and maintain IV; Standing - lidocaine 10 mg/mL (1 %) injection 0.1-0.3 mL; Inject 0.1-0.3 mL under the skin as needed (for IV insertion). - sodium chloride 0.9%; Infuse 25 mL/hr into a venous catheter continuous. - Saline lock IV; Standing - sodium chloride 0.9 % flush 3 mL (NS); Infuse 3 mL into a venous catheter Line Care. - Bedside Glucose (obtain on all diabetic patients if other blood is not required for labs); Standing 40 minutes were spent in [id number] counseling regarding above diagnoses and options for treatment. Subjective: I had the opportunity to see Marci Diaz at the [facility]. Marci Diaz is a 67 y.o. female and here for follow-up in EP clinic due to new diagnosis of atrial fibrillation which I believe is now persistent and not paroxysmal. Marci Diaz has a known history of severe aortic stenosis and had transcatheter aortic valve replacement on July 06, 2017. She also had a stent placed toLAD in May 2017. Her other medical history is significant for type 2 diabetes, hypertension and hyperlipidemia. Marci tells me that she has 14 stairs in her home and normally goes up and down several times on flight of stairs and was quite short of breath prior to valve replacement. It was signific antly better after valve replacement and she noticed it within a day. Then on July 22 she went up the flight of stairs and significantly short of breath again and even worse than before her valve replacement. She had to lay down because she felt so breathless. She was also more tired. It was then noted on July 23 when she came in for clinic visit that she was in atrial fib. I am suspicious that it is ongoing since then because the symptoms have persisted all the time and not intermittent. Unclear if symptoms are related to poor rate control in atrial fib or rhythm itself. She denies any complications post valve replacement. She has done well otherwise. She has had some dizzy episodes whichI would describe more as lightheadedness on her description of it. It does not appear to be hypoglycemia and that she does not have trouble thinking and is not sweaty. These episodes were both precipitated by heavier physical activity of walking a longer distance in the cold weather. She has had 2 such episodes over the last week. 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 Problem List: Patient Active Problem List Diagnosis ??? HLD (hyperlipidemia) ??? CASTRO (dyspnea on exertion) ??? Coronary artery disease involving [place] coronary artery of [place] heart, angina presence unspecified ??? DEDE on [...] Coronary Angiogram; Surgeon: Ankush Martinez MD; Location: [facility] [place]; Service: ??? CV TRANSFEMORAL TRANSCATHETER VALVE REPLACEMENT N/A 07/06/2017 Procedure: Transfemoral Transcatheter Aortic Valve Replacement; Surgeon: Ankush Martinez MD; Location: [facility] [place]; Service: ??? knee replacements Bilateral Social History: Social History Substance Use [...] INR RESULTS DIRECTED 30 tablet 0 ??? BD INSULIN PEN NEEDLE UF MINI 31 gauge x 10/15 Ndle USE 4-5 PER DAY UTD 0 ??? metoprolol tartrate (LOPRESSOR) 50 MG tablet TAKE 1 TABLET BY MOUTH TWICE DAILY 180 tablet 1 No current facility-administered medications for this visit. Objective: Vital signs: BP 134/76 (Patient Site: Left Arm, Patient Position: Sitting, Cuff Size: Adult Large) Pulse (!) 105 Resp 16 Ht 5' 2 (1.575 m) Wt (!) 280 lb 3.2 oz (127.1 kg) BMI 51.25 kg/m2 Physical Exam: GENERAL APPEARANCE: Alert, cooperative and in no acute distress. HEENT: No scleral icterus. No Xanthelasma. Oral mucuos membranes pink and moist. NECK: JVP Nl. CHEST: clear to auscultation CARDIOVASCULAR: S1, S2 without murmur ,clicks or rubs. Irregular, irregular. Radial and posterior tibial pulses are intact and symetric. EXTREMITIES: No cyanosis, clubbing. 1+ bilateral ankle edema Results personally reviewed: Results for orders placed during the hospital encounter of 07/06/17 Echo Limited [ECH17] 07/07/2017 Narrative ?? Left ventricle ejection fraction is normal. The estimated left ventricular ejection fraction is 65%. ?? There is a bioprosthetic valve present. There is no aortic insufficiency present. The prosthetic valve is normal. ?? No pericardial effusion. ?? When compared to the previous study dated 03/25/2017, bioprosthetic aortic valve is now present, replacing stenotic [place] valve Results for orders placed during the hospital [...] MD Results for orders placed or performed during the hospital encounter of 07/06/17 EKG 12 lead POD1 Result Value Ref Range SYSTOLIC BLOOD PRESSURE mmHg DIASTOLIC BLOOD PRESSURE mmHg VENTRICULAR RATE 56 BPM ATRIAL RATE 56 BPM P-R INTERVAL 148 ms QRS DURATION 94 ms Q-T INTERVAL 430 ms QTC CALCULATION (BEZET) 414 ms P Victoria 60 degrees R AXIS 10 degrees T AXIS 21 degrees MUSE DIAGNOSIS Sinus bradycardia with sinus arrhythmia Otherwise normal ECG When compared with ECG of 06-JUL-2017 14:35, No significant change was found Confirmed by OPAL CLEMENTS, LES LOC:JN ([id number]) on 07/07/2017 3:53:52 PM TSH: No results found for: TSH BNP: Lab Results Component Value Date BNP 25 07/05/2017 BMP: Lab Results Component Value Date CREATININE 1.01 07/08/2017 BUN 19 07/08/2017 NA 138 07/08/2017 K 4.6 07/08/2017 CL 104 07/08/2017 CO2 25 07/08/2017 This note has been dictated using voice recognition software. Any grammatical or context distortionsare unintentional and inherent to the software. TASHIA SALAZAR RN, [facility] [phone] RVISOR ROLLING ROOM documented in this encounter Plan of Treatment Not on filedocumented as of this encounter Visit Diagnoses Diagnosis Persistent atrial fibrillation (H) Atrial fibrillation DEDE on CPAP Obstructive sleep apnea (adult) (pediatr ic) Essential hypertension Unspecified essential hypertension S/P TAVR (transcatheter aortic valve rep lacement) documented in this encounter Care Teams Waste Water Operator Relationship Specialty Start Date End Date Elyse Paredes MD PCP - General Family Practice 12/22/13 04/21/22 [address] [place] [address] documented as of this encounter
--- OUTSIDE RECORDS SUMMARY | 2022-07-02 13:44 | XMS_ITS | Encounter Summary ---
:1950 Author Organization [facility] Address [address] [place] [address] Care Team Providers Name Role Phone Elyse Paredes MD Primary Care Provider Reason for Visit Reason Comments Other Encounter Details Date Type Department Care Team Description 07/29/2017 [facility] Other [facility] Debby Ng APRN [address] [facility] [phone] [address] [place] [address] Social History Tobacco Use Types Packs/Day Years Used Date Smoking Tobacco: Never Assessed Sex Assigned at Date Recorded Not on file documented as of this encounter Plan of Treatment Not on filedocumented as of this encounter Visit Diagnoses Diagnosis Persistent atrial fibrillation (H) Atrial fibrillation documented in this encounter Care Teams Communications Senior Associate Relationship Specialty Start Date End Date Elyse Paredes MD PCP - General Family Practice 12/22/13 04/21/22 [address] [place] [address] documented as of this encounter
--- OUTSIDE RECORDS SUMMARY | 2022-07-02 13:44 | XMS_ITS | Encounter Summary ---
:1950 Author Organization [facility] Address [address] [place] [address] Care Team Providers Name Role Phone Elyse Paredes MD Primary Care Provider Encounter Details Date Type Department Care Team Description 06/28/2017 Ambulatory - [facility] Provider, Severe aor tic stenosis; [facility] S/P TAVR (t ranscatheter aortic valve replacement); Fransico SOB (shortness of breath) [address] [phone] Social History Tobacco Use Types Packs/Day Years Used Date Smoking Tobacco: Never Assessed Sex Assigned at Date Recorded Not on file documented as of this encounter Plan of Treatment Not on filedocumented as of this encounter Visit Diagnoses Diagnosis Severe aortic stenosis Aortic valve disorders S/P TAVR (transcatheter aortic valve rep lacement) SOB (shortness of breath) Shortness of breath documented in this encounter Care Teams Relay Shop Tester Relationship Specialty Start Date End Date Elyse Paredes MD PCP - General Family Practice 12/22/13 04/21/22 [address] [place] [address] documented as of this encounter
--- OUTSIDE RECORDS SUMMARY | 2022-07-02 13:44 | XMS_ITS | Encounter Summary ---
:1950 Author Organization [place] Address [address] [place] [address] Care Team Providers Name Role Phone Elyse Paredes MD Primary Care Provider Encounter Details Date Type Department Care Team Description 07/06/2017 [facility] CARDIAC PIPE STEM SAWYER Johnathan Martinez MD [address] [facility] [address] [place], [place] [id number] Social History Tobacco Use Types Packs/Day Years [...] 125.6 kg (277 lb) 07/08/2017 5:00 AM CLAY ARTISAN Height 157.5 cm (5' 2) 07/06/2017 8:21 AM CLAY ARTISAN Body Mass Index 50.66 07/06/2017 8:21 AM CLAY ARTISAN documented in this encounter Plan of Treatment Not on filedocumented as of this encounter Visit Diagnoses Not on filedocumented in this encounter Care Teams Hospice Executive Director Relationship Specialty Start Date End Date Elyse Paredes MD PCP - General Family Practice 12/22/13 04/21/22 [address] [place] [address] documented as of this encounter
--- OUTSIDE RECORDS SUMMARY | 2022-07-02 13:44 | XMS_ITS | Encounter Summary ---
:1950 Author Organization [facility] Address [address] [place] [address] Care Team Providers Name Role Phone Elyse Paredes MD Primary Care Provider Reason for Visit Reason Comments Kidney Problem 2 weeks stone f/u with CT Encounter Details Date Type Department Care Team Description 06/21/2017 Office Visit - [facility] Clem Johnsu marie of ureter; [facility] MYRA Bello MD Calculus of kidney; [address], [address] Urinary tract stones [address] [place] [phone] (Work) Social History Tobacco Use Types Packs/Day Years Used Date Smoking Tobacco: Never Assessed Sex Assigned at Date Recorded Not on file documented as of this encounter Progress Notes Clem Johns MD - 06/21/2017 3:40 PM CST Assessment/Plan: Diagnoses and all orders for this visit: Calculus of ureter Calculus of kidney - Patient Stated Goal: Prevent further stones - Calcium Oxalate Stone Prevention Education Urinary tract stones - Urinalysis Macroscopic Stone Management Plan [facility] Stone Management 06/07/2017 06/22/2017 Urinary Tract Infection No suspicion of infection No suspicion of infection Renal Colic Asymptomatic at this time Asymptomatic at this time Renal Failure No suspicion of renal failure No suspicion of renal failure Current CT date 06/05/2017 06/22/2017 Right sided stones? Yes No R Number of ureteral stones 1 - R GSD of ureteral stones 3 - R Location of ureteral stone Distal - R Number of kidney stones 1 Renal stones unchanged from last exam R GSD of kidney stones < 2 < 2 R Hydronephrosis Mild None R Stone Event New event Resolved event Diagnosis date 06/05/2017 - Initial location of primary symptomatic stone Distal - Initial GSD of primary symptomatic stone 3 - Resolved date - 06/22/2017 R Current Plan - Observe Observe rationale - Limited stone burden with good prognosis for spontaneous passage Left sided stones? Yes Yes L Number of ureteral stones No ureteral stones No ureteral stones L Number of kidney stones 1 Renal stones unchanged from last exam L GSD of kidney stones < 2 < 2 L Hydronephrosis None None L Stone Event No current event No current event L Current Plan Observe Observe Observe rationale Limited stone burden with good prognosis for spontaneous passage Limited stone burden with good prognosis for spontaneous passage Subjective: HPI Ms. Marci Diaz is a 67 y.o. female returning to the [facility] for medical expulsive therapy follow up. On last encounter, her 3 mm stone was in right distal ureter with mild hydronephrosis. She has had no unanticipated events. She has been doing well in the interval with no further pain or stone related symptoms. She is asymptomatic at present. She has not seen a stone pass. She denies symptoms of fever, chills, flank pain, nausea, vomiting, urinary frequency and dysuria. New CT scan was personally reviewed and demonstrates passage of stone with resolution of previous hydronephrosis. Previous small bilateral renal calculi not as well appreciated on today's imaging. PLAN 67 yo diabetic F with remote hx of nephrolithiasis, interval passage of right distal urolithiasis, no specimen retrieved. Additional, small renal calculi. She is congratulated on passing her stone and will not proceed with stone risk evaluation. She is happy she can proceed with her heart valve surgery as scheduled. She is happy to follow up on a prn basis. We reviewed conservative dietary recommendations for future stone prevention. Patient also seen and examined by Shelly Adrian PA-C ROS Review of systems is negative except for HPI. Past Medical History: Diagnosis Date ??? Bicuspid [...] Coronary Angiogram; Surgeon: Ankush Martinez MD; Location: [facility] Consultant; Service: ??? knee replacements Bilateral Current Outpatient Prescriptions Medication Sig Dispense Refill ??? aspirin 81 mg chewable tablet Chew 1 tablet (81 mg total) daily. 0 ??? BD INSULIN PEN NEEDLE UF SHORT 31 gauge x 5/16 Ndle USE WITH TOUJEO AND VICTOZA BID 3 ??? celecoxib (CELEBREX) 200 MG capsule Take 1 capsule by mouth daily. ??? clopidogrel (PLAVIX) 75 mg tablet TAKE 1 TABLET BY MOUTH EVERY DAY 90 tablet 3 ??? CRESTOR 10 mg tablet Take 1 tablet by mouth daily. ??? insulin aspart (NOVOLOG) 100 unit/mL injection Inject 6-10 Units under the skin 3 (three) times a day before meals. ??? LANTUS SOLOSTAR 100 unit/mL (3 mL) pen 30 Units 2 (two) times a day. ??? losartan (COZAAR) 50 MG tablet Take 1 tablet by mouth daily. ??? sertraline (ZOLOFT) 100 MG tablet Take 50 mg by mouth daily. ??? HYDROmorphone (DILAUDID) 2 MG tablet Take 1-2 tablets (2-4 mg total) by mouth every 4 (four) hours as needed for pain. 20 tablet 0 ??? ibuprofen (ADVIL,MOTRIN) 200 MG tablet Take 2 tablets (400 mg total) by mouth every 8 (eight) hours as needed for pain (kidney stone pain). 20 tablet 0 ??? ondansetron (ZOFRAN ODT) 4 MG disintegrating tablet Take 1 tablet (4 mg total) by mouth every 8 (eight) hours as needed for nausea. 15 tablet 0 No current facility-administered medications for this visit. Allergies Allergen Reactions ??? Lisinopril Cough ??? Metformin Nausea And Vomiting ??? Erythromycin Base Rash Social History Social History ??? Marital status: Spouse name: N/A ??? Number of children: N/A ??? 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 Smoking status: Never Smoker ??? Smokeless tobacco: Never Used ??? Alcohol use Not on file ??? Drug use: No ??? Sexual activity: Not on file Other Topics Concern ??? Not on file Social History Narrative Family History Problem Relation Age of Onset ??? Diabetes Father ??? Heart disease Father ??? Cancer Brother esophageal ??? Urolithiasis Neg Hx ??? Clotting disorder Neg Hx ??? Gout Neg Hx Objective: Physical Exam Vitals: 06/21/17 1533 BP: 139/64 Pulse: 92 Temp: 98.9 ??F (37.2 ??C) General - well developed, well nourished, appropriate for age. Appears no distress at this time Abdomen - obese soft, non-tender, no hepatosplenomegaly, no masses. - no flank tenderness, no suprapubic tenderness, kidney and bladder non-palpable MSK - normal spinal curvature. no spinal tenderness. normal gait. muscular strength intact. Psych - oriented to time, place, and person, normal mood and affect. Labs Urinalysis POC (Office): Nitrite, UA Date Value Ref Range Status 06/07/2017 Negative Negative Final 06/05/2017 Negative Negative Final Lab Urinalysis: Blood, UA Date Value Ref Range Status 06/07/2017 Large (!) Negative Final 06/05/2017 Moderate (!) Negative Final Nitrite, UA Date Value Ref Range Status 06/07/2017 Negative Negative Final 06/05/2017 Negative Negative Final Leukocytes, UA Date Value Ref Range Status 06/07/2017 Small (!) Negative Final 06/05/2017 Moderate (!) Negative Final pH, UA Date Value Ref Range Status 06/07/2017 6.0 5.0 - 8.0 Final 06/05/2017 6.0 4.5 - 8.0 Final ISION DEVICES INSPECTOR/TESTER documented in this encounter Plan of Treatment Not on filedocumented as of this encounter Visit Diagnoses Diagnosis Calculus of ureter Calculus of kidney Urinary tract stones Urinary calculus, unspecified documented in this encounter Care Teams Real Estate Site Analyst Relationship Specialty Start Date End Date Elyse Paredes MD PCP - General Family Practice 12/22/13 04/21/22 [address] [place] [id number] documented as of this encounter
--- OUTSIDE RECORDS SUMMARY | 2022-07-02 13:44 | XMS_ITS | Encounter Summary ---
:1950 Author Organization [facility] Address [address] [place] [address] Care Team Providers Name Role Phone Elyse Paredes MD Primary Care Provider Encounter Details Date Type Department Care Team Description 07/05/2017 Anesthesia - [facility] Maryellen Willett, GRIFFIN [facility] [place] [address] [place], [place] [address] (Wo rk) Social History Tobacco Use Types Packs/Day Years Used Date Smoking Tobacco: Never Assessed Sex Assigned at Date Recorded Not on file documented as of this encounter OR Notes Anesthesia Postprocedure Evaluation - Marquita Tovar MD - 07/07/2017 6:46 AM CST Patient: Marci Diaz Transfemoral Transcatheter Aortic Valve Replacement - GENERAL ANESTHESIA WHOLE CASE, TAVR, DR EDWARDS,DR GODOY, DR FRASER, H&P DONE, TEACH-BASSEM, TRANSFEMORAL TRANSCATHETER AORTIC VALVE REPLACEMENT (STANDBY) Anesthesia type: general Patient location: ICU Last vitals: Vitals: 07/07/17 0600 BP: Pulse: 60 Resp: 25 Temp: SpO2: 97% Post vital signs: stable Level of consciousness: awake and responds to simple questions Post-anesthesia pain: pain controlled Post-anesthesia nausea and vomiting: no Pulmonary: unassisted Cardiovascular: stable Hydration: adequate Anesthetic events: no QCDR Measures: ASA# 11 - Lori-op Cardiac Arrest: ASA11B - Patient did NOT experience unanticipated cardiac arrest ASA# 12 - Lori-op Mortality Rate: ASA12B - Patient did NOT ASA# 13 - PACU Re-Intubation Rate: ASA13B - Patient did NOT require a new airway mgmt ASA# 10 - Composite Anes Safety: ASA10A - No serious adverse event Additional Notes: Patient with generalized muscle aches and sore throat from ETT. Doing well. Not onpressors. Maintaining sats on BiPAP. ER SET UP OPERATOR Anesthesia Procedure Notes - Brenton Gregory MD - 07/06/2017 1:45 PM SHAPER SET UP OPERATOR REINALDO Patient location during procedure: OR Start time: 07/06/2017 12:10 PM Staffing: Performing Anesthesiologist: BRENTON GREGORY REINALDO: Type/Reason: Diagnostic REINALDO probe placement only Technique: blind insertion Difficulty: easy interpretation completed by Cardiology ER SET UP OPERATOR Anesthesia Procedure Notes - Brenton Gregory MD - 07/06/2017 1:41 PM SHAPER SET UP OPERATOR Central line Start time: 07/06/2017 11:46 AM End time: 07/06/2017 12:02 PM Patient location: OR Post-induction Indications: central pressure monitoring and vascular access Performing Anesthesiologist: BRENTON GREGORY Pre-procedure Checklist Completed: patient identified, site marked, risks, benefits, and alternatives discussed, timeout performed, consent obtained, hand hygiene performed, all elements of maximal sterile barriers used including cap, mask, gown, sterile gloves, and large sheet and skin prep agent completely dried prior to procedure Procedure Details: Preparation: 2% chlorhexidine Location details: right internal jugular Site selection rationale: cardiac surgery Catheter type: Introducer with Hands-Off Introducer type: MAC Lumens:double lumenNumber of attempts: 1 Ultrasound evaluation of access site: yes Vessel patent by US exam Concurrent real time visualization of needle entryTransduced for venous waveform manometry confirmation of venous access Post-procedure: line sutured and Antimicrobial disks with CHG applied Assessment: blood return through all ports and free fluid flow Complications: none ER SET UP OPERATOR Anesthesia Procedure Notes - Brenton Gregory MD - 07/06/2017 10:12 AM SHAPER SET UP OPERATOR Arterial Line Reason for Procedure: hemodynamic monitoring Patient location during procedure: Pre-op Start time: 07/06/2017 9:56 AM End time: 07/06/2017 10:02 AM Staffing: Performing Anesthesiologist: BRENTON GREGORY Sterile Precautions: sterile barriers used during insertion: cap, mask, sterile gloves, large sheet, and hand hygiene used. Arterial Line: Immediately prior to procedure a time out was called to verify the correct patient, procedure, equipment, child support case officer and site/side marked as required Laterality: left Location: radial Prepped with: ChloroPrep Needle gauge: 20 G Number of Attempts: 1 Secured with: tape, pressure dressing and transparent dressing (suture) Flushed with: saline 1% lidocaine local anesthesia used for skin prep. See MAR for additional medications given. Ultrasound evaluation of access site: yes Vessel patent by US exam Concurrent real time visualization of needle entry ER SET UP OPERATOR Anesthesia Preprocedure Evaluation - Brenton Gregory MD - 07/06/2017 8:55 AM CST Anesthesia Evaluation Patient summary reviewed History of anesthetic complications (woke up during spinal for TKA) Airway Mallampati: III Neck ROM: full Pulmonary breath sounds clear to auscultation (+) COPD, shortness of breath, sleep apnea, decreased breath sounds, (-) recent URI Cardiovascular Exercise tolerance: < 4 METS (+) hypertension, valvular problems/murmurs , CAD, CABG/stent, , (-) angina ECG reviewed Rhythm: regular Rate: normal, murmur Neuro/Psych (+) depression, (-) no CVA Endo/Other (+) diabetes mellitus using insulin, obesity, GI/Hepatic/Renal (+) chronic renal disease, Dental (+) caps and chipped Anesthesia Plan Planned anesthetic: general endotracheal Magnesium after valve deployed 2 grams ASA 3 Induction: intravenous Anesthetic plan and risks discussed with: patient Anesthesia plan special considerations: antiemetics, CVP line, arterial catheterization, IV therapy two IVs, dexmedetomidine Post-op plan: routine recovery ER SET UP OPERATOR documented in this encounter Miscellaneous Notes Anesthesia Care Transfer Note - Dilma Esqueda APRN CRNA - 07/06/2017 2:26 PM CST Patient spontaneously breathing, TV>400ml, following commands, suctioned and extubated with balloon down. O2 at 10L via mask. Transferred to bed, monitors on, accompanied to ICU by anesthesiologist.In ICU vital signs stable, SBAR report to RN per institutional policy and procedure. Transfer of care. Last vitals: Vitals: 07/06/17 1425 BP: 101/46 Pulse: 70 Resp: 22 Temp: 37 ??C (98.6 ??F) SpO2: 95% Patient's level of consciousness [...] present PQRS# 424 - Lori-op Temp Management: 4559F - At least one body temp DOCUMENTED => 35.5C or 95.9F within required timeframe PQRS# 426 - PACU Transfer Protocol:G9655 - Transfer of care checklist used ASA# 14 - Acute Post-op Pain: ASA14B - Patient did NOT experience pain >= 7 out of 10 ER SET UP OPERATOR documented in this encounter Plan of Treatment Not on filedocumented as of this encounter Visit Diagnoses Not on filedocumented in this encounter Care Teams Gum Rolling Machine Operator Relationship Specialty Start Date End Date Elyse Paredes MD PCP - General Family Practice 12/22/13 04/21/22 [address] [place] [address] documented as of this encounter
--- OUTSIDE RECORDS SUMMARY | 2022-07-02 13:44 | XMS_ITS | Encounter Summary ---
:1950 Author Organization [facility] Address [address] [place] [address] Care Team Providers Name Role Phone Elyse Paredes MD Primary Care Provider Reason for Visit Reason Comments Other Medications Encounter Details Date Type Department Care Team Description 06/28/2017 [facility] [address] [phone] Social History Tobacco Use Types Packs/Day Years Used Date Smoking Tobacco: Never Assessed Sex Assigned at Date Recorded Not on file documented as of this encounter Plan of Treatment Not on filedocumented as of this encounter Visit Diagnoses Not on filedocumented in this encounter Care Teams Wharf Tender Helper Relationship Specialty Start Date End Date Elyse Paredes MD PCP - General Family Practice 12/22/13 04/21/22 [address] [place], [place] [id number] documented as of this encounter
--- OUTSIDE RECORDS SUMMARY | 2022-07-02 13:44 | XMS_ITS | Encounter Summary ---
:1950 Author Organization [facility] Address [address] [place] [address] Care Team Providers Name Role Phone Elyse Paredes MD Primary Care Provider Reason for Visit Reason Comments Other Plan for TAVR / Dental Encounter Details Date Type Department Care Team Description 06/28/2017 Communication - [facility] Provider, Other ( Plan for [facility]. Historical TAVR / Davey al) [address] [phone] Social History Tobacco Use Types Packs/Day Years Used Date Smoking Tobacco: Never Assessed Sex Assigned at Date Recorded Not on file documented as of this encounter Plan of Treatment Not on filedocumented as of this encounter Visit Diagnoses Not on filedocumented in this encounter Care Teams Anatomy And Physiology Instructor Relationship Specialty Start Date End Date Elyse Paredes MD PCP - General Family Practice 12/22/13 04/21/22 [address] [place], [place] [id number] documented as of this encounter
--- OUTSIDE RECORDS SUMMARY | 2022-07-02 13:44 | XMS_ITS | Encounter Summary ---
:1950 Author Organization [place] Address [address] [place] [address] Care Team Providers Name Role Phone Elyse Paredes MD Primary Care Provider Encounter Details Date Type Department Care Team Description 07/27/2017 [facility] S/P TAVR (transcatheter aort ic valve replacement); [address] S/[place] [phone] Social History Tobacco Use Types Packs/Day Years [...] - - Weight 127 kg (280 lb) 07/27/2017 2:00 PM SOUVENIR ASSEMBLER Height - - Body Mass Index 51.21 07/23/2017 1:27 PM SOUVENIR ASSEMBLER documented in this encounter Plan of Treatment Not on filedocumented as of this encounter Visit Diagnoses Diagnosis S/P TAVR (transcatheter aortic valve rep lacement) S/P coronary artery stent placement Postsurgical percutaneous transluminal c oronary angioplasty status documented in this encounter Care Teams Residential Green Building Designer Relationship Specialty Start Date End Date Elyse Paredes MD PCP - General Family Practice 12/22/13 04/21/22 15[address] [place] [address] documented as of this encounter
--- OUTSIDE RECORDS SUMMARY | 2022-07-02 13:44 | XMS_ITS | Encounter Summary ---
:1950 Author Organization [facility] Address [address] [place] [address] Care Team Providers Name Role Phone Elyse Paredes MD Primary Care Provider Encounter Details Date Type Department Care Team Description 07/05/2017 Hospital Encounter [facility] Suzanna Martinez re aortic [facility] MD Ankush [facility] [address] [facility] [address] [phone] [phone] Social History Tobacco Use Types Packs/Day Years [...] Comme nts XR CHEST 2 VIEWS Routine 07/05/2017 12:28 PM Severe aortic Res ults for this MACHINE PIE MAKER stenosis procedure are i n the results section. documented in this encounter Results XR Chest 2 Views (07/05/2017 12:28 PM MACHINE PIE MAKER) Anatomical Region Laterality Modality Chest Digital Radiography Specimen (Source) Anatomical Location Collection Method / Collectio n Time Received Time / Laterality Volume Narrative 07/05/2017 1:00 PM MACHINE PIE MAKER XR CHEST 2 VIEWS 07/05/2017 12:28 PM INDICATION: Aortic stenosis. COMPARISON: 11/30/1999 FINDINGS: Clearing of the very prominent pulmonary disease seen previously, lungs now appear clear and heart size and pulmonary vessels are normal. Procedure Note Carlos Mckeon MD - 01/07/2021Formatt ing of this note might be different from the original. XR CHEST 2 VIEWS 07/05/2017 12:28 PM INDICATION: Aortic stenosis. COMPARISON: 11/30/1999 FINDINGS: Clearing of the very prominent pulmonary disease seen previously, lungs now appear clear and heart size and pulmonary vessels are normal. Ankush Martinez MD IMG DIAGNOSTIC IMAGING ORDER LEXA documented in this encounter Visit Diagnoses Diagnosis Severe aortic stenosis Aortic valve disorders documented in this encounter Care Teams Newspaper Correspondent Relationship Specialty Start Date End Date Elyse Paredes MD PCP - General Family Practice 12/22/13 04/21/22 [address] [place] [address] documented as of this encounter
--- OUTSIDE RECORDS SUMMARY | 2022-07-02 13:44 | XMS_ITS | Encounter Summary ---
:1950 Author Organization [facility] Address [address] [place] [address]. [place] [address] Care Team Providers Name Role Phone Elyse Paredes MD Primary Care Provider Reason for Visit Reason Comments Other FOLLOWING FOR CV Encounter Details Date Type Department Care Team Description 07/30/2017 Ambulatory - [facility] Carmen Olivo [facility] [address] [facility] [address] [place] [phone] Social History Tobacco Use Types Packs/Day Years Used Date Smoking Tobacco: Never Assessed Sex Assigned at Date Recorded Not on file documented as of this encounter Progress Notes Sina Olivo - 07/30/2017 12:50 PM CST Pt was seen by Roland lau INR's to be followed with us Pt is aware of plan and has my direct number to call [facility] INPATIENT HEADACHE PROGRAM documented in this encounter Plan of Treatment Not on filedocumented as of this encounter Visit Diagnoses Not on filedocumented in this encounter Care Teams Negative Turner Apprentice Relationship Specialty Start Date End Date Elyse Paredes MD PCP - General Family Practice 12/22/13 04/21/22 [address] [place] [address] documented as of this encounter
--- OUTSIDE RECORDS SUMMARY | 2022-07-02 13:44 | XMS_ITS | Encounter Summary ---
:1950 Author Organization [facility] Address [address] [place] [address] Care Team Providers Name Role Phone Elyse Paredes MD Primary Care Provider Reason for Visit Reason Comments Other Encounter Details Date Type Department Care Team Description 07/23/2017 [facility] Tanner Anderson PA-C [address] [address] Other [facility] [address] [phone] Social History Tobacco Use Types Packs/Day Years Used Date Smoking Tobacco: Never Assessed Sex Assigned at Date Recorded Not on file documented as of this encounter Plan of Treatment Not on filedocumented as of this encounter Visit Diagnoses Diagnosis Paroxysmal atrial fibrillation (H) Atrial fibrillation documented in this encounter Care Teams Irrigation Flume Layer Relationship Specialty Start Date End Date Elyse Paredes MD PCP - General Family Practice 12/22/13 04/21/22 [address] [place] [address] documented as of this encounter
--- OUTSIDE RECORDS SUMMARY | 2022-07-02 13:44 | XMS_ITS | Encounter Summary ---
:1950 Author Organization [facility] Address [address] [place] [address] Care Team Providers Name Role Phone Elyse Paredes MD Primary Care Provider Reason for Visit Reason Comments Other Pre-TAVR; Pre-TAVR Encounter Details Date Type Department Care Team Description 07/05/2017 [facility] Provider, Severe aor [facility] St. Historical stenosis [address] [phone] Social History Tobacco Use Types Packs/Day Years Used Date Smoking Tobacco: Never Assessed Sex Assigned at Date Recorded Not on file documented as of this encounter Progress Notes Tomas Pino RN - 07/05/2017 11:10 AM CST Patient scheduled for Transcatheter Aortic Valve Replacement (TAVR) on 07/06/17 arrival time: 0730AM for 2nd case at [facility] with Dr. Martinez Referring provider: Dr. Steele Two CT surgery consults completed: Dr. Steele (date 04/16/17), Dr. Rossi (date 05/27/17) Dental Clearance obtained: yes, scanned into chart Reason for today???s visit: Pre-op TAVR RN Visit Tests completed today: Pre-procedure labs drawn: CMP, CBC, INR, BNP, Type and Screen MRSA nasal cultures EKG Chest X ray Bactroban administered in bilateral nares STS score: 2.4% Patient instructed on Incentive Spirometer (IS) Instructions reviewed with patient. Patient verbalizes understanding and able to demonstrate proper use of IS. Patient instructed on medications: AN of procedure take only plavix 75 mg with a few sips of water Loading dose of Plavix: no, pt taking 75 mg daily Loading dose of ASA: yes 325 mf in [facility] Patient instructed on skin prep: Patient sent home with hibiclens solution along with written instructions for hibiclens bath to be done evening before procedure. Advanced Directive: Does the patient have an advanced directive: yes, on file Surgery and anesthesia consents Ashley Dickson PA-C reviewed risks of TAVR surgery/REINALDO and signed consents Consents sent to [facility] Anesthesia will sign anesthesia consent am of surgery Pre and post procedure education was also reviewed with the patient. No further questions and ready to proceed with surgery as planned. Instructed to come to the main entrance of [facility] at 0730 AM All questions were answered to patient by Ashley Dickson PA-C and Tomas Pino RN No family present at the time of appointment. ESCORT documented in this encounter Plan of Treatment Not on filedocumented as of this encounter Visit Diagnoses Diagnosis Severe aortic stenosis Aortic valve disorders documented in this encounter Care Teams Dairy Technologist Relationship Specialty Start Date End Date Elyse Paredes MD PCP - General Family Practice 12/22/13 04/21/22 [address] [place] [address] documented as of this encounter
--- OUTSIDE RECORDS SUMMARY | 2022-07-02 13:44 | XMS_ITS | Encounter Summary ---
:1950 Author Organization [facility] Address [address] [place] [address] Care Team Providers Name Role Phone Elyse Paredes MD Primary Care Provider Encounter Details Date Type Department Care Team Description 08/04/2017 Ambulatory - [facility] S/P TAVR [address] (transcatheter aortic [place], [place] valve replace ment) [phone] Social History [...] - - Weight 127 kg (280 lb) 08/04/2017 11:00 AM STUDENT ASSISTANCE COUNSELOR Height - - Body Mass Index 51.21 07/29/2017 8:59 AM STUDENT ASSISTANCE COUNSELOR documented in this encounter Progress Notes Judith Lopez - 08/04/2017 11:00 AM CST Marci Diaz has participated in 4 sessions of Phase II Cardiac Rehab. Progress Report: Cardiac Rehab Treatment Progress Report 07/23/2017 07/27/2017 07/29/2017 07/29/2017 08/04/2017 Weight 277 lbs 280 lbs 280 lbs 3 oz 280 lbs 280 lbs Pre Exercise HR - 106- 110 - 96-120 90-105 Pre Exercise BP - 134/66 - 116/64 130/78 Pre Blood Sugar (mg/dl) - 162 - 145 132 Treadmill Peak HR - 128 - 105 110 Treadmill Peak Blood Pressure - 130/70 - 136/72 124/76 Nustep Peak Heart Rate - 114-120 - 103-120 108-118 Nustep Peak Blood Pressure - 130/72 - 134/76 - Heart Rate - 106 - 95 97 Post Exercise BP - 124/70 - 110/64 120/76 Post Blood Sugar (mg/dl) - 152 - 170 108 ECG - Afib, rates - Afib, rates 96-120's A-fib,rates 95-116 Total Exercise Minutes - 34 - 30 40 Current Status: Symptomatic: Mildly winded at times. Therapists Comments: Pt. tolerated exercise well today If Physician recommends change in treatment plan, please place orders. Signature Date ENT ASSISTANCE COUNSELOR documented in this encounter Plan of Treatment Not on filedocumented as of this encounter Procedures Procedure Name Priority Date/Time Associated Diagnosis Comme nts GLUCOSE BY METER Routine 08/04/2017 12:10 PM Resu lts for this POCT STUDENT ASSISTANCE COUNSELOR procedure are i n the results section. documented in this encounter Results Glucose by meter POCT (08/04/2017 12:10 PM STUDENT ASSISTANCE COUNSELOR) athologist Signature GLUCOSE BY 108 mg/dL 08/04/2017 [facility] METER POCT 12:10 PM [facility] POCT RESULTS Comment: [...] Location / / Volume Laterality Blood specimen 08/04/2017 12:10 8 6:41 (specimen) PM STUDENT ASSISTANCE COUNSELOR AM STUDENT ASSISTANCE COUNSELOR Historical Provider LAB - ENTER/EDIT POCT Performing Organization Address City/State/ZIP Code Phon e Number [facility] POCT RESULTS [address] [place] [address] documented in this encounter Visit Diagnoses Diagnosis S/P TAVR (transcatheter aortic valve rep lacement) documented in this encounter Care Teams Protection Agent Relationship Specialty Start Date End Date Elyse Paredes MD PCP - General Family Practice 12/22/13 04/21/22 [address] [place] [address] documented as of this encounter
--- OUTSIDE RECORDS SUMMARY | 2022-07-02 13:44 | XMS_ITS | Encounter Summary ---
:1950 Author Organization [facility] Address [address] [place] [address] Care Team Providers Name Role Phone Elyse Paredes MD Primary Care Provider Encounter Details Date Type Department Care Team Description 07/27/2017 Ambulatory - [facility] Provider, S/P TAVR [facility] [place] aortic valve [address] replacement) [place] [address] Social History Tobacco Use Types Packs/Day Years Used Date Smoking Tobacco: Never Assessed Sex Assigned at Date Recorded Not on file documented as of this encounter Plan of Treatment Not on filedocumented as of this encounter Visit Diagnoses Diagnosis S/P TAVR (transcatheter aortic valve rep lacement) documented in this encounter Care Teams Electric Lineman Relationship Specialty Start Date End Date Elyse Paredes MD PCP - General Family Practice 12/22/13 04/21/22 [address] [place], [place] [id number] documented as of this encounter
--- OUTSIDE RECORDS SUMMARY | 2022-07-02 13:44 | XMS_ITS | Encounter Summary ---
:1950 Author Organization [facility] Address [address] [place] [address] Care Team Providers Name Role Phone Elyse Paredes MD Primary Care Provider Encounter Details Date Type Department Care Team Description 07/27/2017 Ambulatory - [facility] Gabrielle Golden fi brillation (H); [facility] Dora RN S/P TAVR (trans catheter aortic valve replacement) [address] [place] [address] Social History Tobacco Use Types Packs/Day Years Used Date Smoking Tobacco: Never Assessed Sex Assigned at Date Recorded Not on file documented as of this encounter Progress Notes Gabrielle Golden RN - 07/27/2017 1:45 PM CST INR 1.6 started on Warfarin and will increase dose and retest in one week. 7.5 mg tue and Sat and 5 mg all other days. After talking with pt and discussing history [...] coming procedures. Cautioned about using Herbal medication. [facility] documented in this encounter Plan of Treatment Not on filedocumented as of this encounter Visit Diagnoses Diagnosis Atrial fibrillation (H) Atrial fibrillation S/P TAVR (transcatheter aortic valve rep lacement) documented in this encounter Care Teams Chef De Cuisine Relationship Specialty Start Date End Date Elyse Paredes MD PCP - General Family Practice 12/22/13 04/21/22 [address] [place] [address] documented as of this encounter
--- OUTSIDE RECORDS SUMMARY | 2022-07-02 13:44 | XMS_ITS | Encounter Summary ---
:1950 Author Organization [facility] Address [address] [place] [address] Care Team Providers Name Role Phone Elyse Paredes MD Primary Care Provider Encounter Details Date Type Department Care Team Description 06/21/2017 [facility] [address] [place] [phone] Social History Tobacco Use Types Packs/Day Years [...] NEEDLE UF SHORT 31 Ndle GAUGE X 516 NDLE] USE WITH TOUJEO AND VICTOZA BID [...] Priority Date/Time Associated Diagnosis Comme nts CT ABDOMEN PELVIS Routine 06/21/2017 3:26 PM Calculus of urete r Results for this W/O CONTRAST SALES RECEPTIONIST procedure are i n the results section. documented in this encounter Results CT Abdomen Pelvis w/o Contrast (06/21/2017 3:26 PM SALES RECEPTIONIST) Anatomical Region Laterality Modality Abdomen/Pelvis, SUBRAD CT BODY, UMP CT ABDOMEN PELVIS, Computed Tomography RAD CT Specimen (Source) Anatomical Location Collection Method / Collectio n Time Received Time / Laterality Volume Impressions 06/21/2017 3:43 PM SALES RECEPTIONIST CONCLUSION: 1. ??Resolution of the tiny distal right ureteral stone with resolved mild right hydronephrosis. 2. ??No new findings. Narrative 06/21/2017 3:[address] ABDOMEN PELVIS WO ORAL WO IV CONTRAST 06/21/2017 3:26 PM INDICATION: radiolucent ureteral stone f ollow-up; LOW DOSE TECHNIQUE: Routine CT abdomen and pelvis without oral or IV contrast. Multiplanar reformation images (MPR). Dose reduction techniques were used. COMPARISON: 06/05/2017 FINDINGS: LUNG BASES: Negative. ABDOMEN: Resolution of the distal right ureteral stone with resolved mild hydronephrosis. No remaining stones on either side. Dystrophic calcifications near the right renal hilum of no significance. Probable cyst mid left kidney unchanged. No significant incidental findings. PELVIS: Negative other than diverticulos is sigmoid colon MUSCULOSKELETAL: Negative. Procedure Note Buddy Gong - 01/06/2021Formatting o f this note might be different from the original. CT ABDOMEN PELVIS WO ORAL WO IV CONTRAST 06/21/2017 3:26 PM INDICATION: radiolucent ureteral stone f ollow-up; LOW DOSE TECHNIQUE: Routine CT abdomen and pelvis without oral or IV contrast. Multiplanar reformation images (MPR). Dose reduction techniques were used. COMPARISON: 06/05/2017 FINDINGS: LUNG BASES: Negative. ABDOMEN: Resolution of the distal right ureteral stone with resolved mild hydronephrosis. No remaining stones on either side. Dystrophic calcifications near the right renal hilum of no significance. Probable cyst mid left kidney unchanged. No significant incidental findings. PELVIS: Negative other than diverticulos is sigmoid colon MUSCULOSKELETAL: Negative. IMPRESSION: CONCLUSION: 1. Resolution of the tiny distal right u reteral stone with resolved mild right hydronephrosis. 2. No new findings. Shelly Adrian PA-C IMG CT ORDERABLES documented in this encounter Visit Diagnoses Diagnosis Calculus of ureter documented in this encounter Care Teams Outside Machinist Helper Relationship Specialty Start Date End Date Elyse Paredes MD PCP - General Family Practice 12/22/13 04/21/22 [address] [place] [address] documented as of this encounter
--- OUTSIDE RECORDS SUMMARY | 2022-07-02 13:44 | XMS_ITS | Encounter Summary ---
:1950 Author Organization [facility] Address [address] [place] [address] Care Team Providers Name Role Phone Elyse Paredes MD Primary Care Provider Encounter Details Date Type Department Care Team Description 08/05/2017 Hospital Encounter [facility] Michelle, S/P TAVR St. Randy Lechuga MD (transcatheter [facility] [address] [facility] aortic valve [address] replacement) [place] [id number] [phone] Social History Tobacco Use Types Packs/Day Years [...] - - Weight 127 kg (280 lb) 08/05/2017 10:43 AM HEAD OF BIOLOGY Height 157.5 cm (5' 2) 08/05/2017 10:43 AM HEAD OF BIOLOGY Body Mass Index 51.21 08/05/2017 10:43 AM HEAD OF BIOLOGY documented in this encounter Medications at Time of Discharge Medication Sig Dispensed Refills Start Date End Date BD INSULIN PEN NEEDLE UF [BD INSULIN PEN 0 2016 MINI 31 gauge x 316 NEEDLE UF MINI 31 Ndle GAUGE X 16 NDLE] USE 4-5 PER DAY UTD LANTUS [...] Associated Diagnosis Comme nts ECHO COMPLETE Routine 08/05/2017 10:43 AM S/P TAVR Results for this HEAD OF BIOLOGY (transcatheter aortic proced ure are in the valve replacement) results s ection. documented in this encounter Results Echocardiogram Complete (08/05/2017 10:43 AM HEAD OF BIOLOGY) [facility] gist Method Time Signature LV volume diastolic 51 46 - 106 08/05/2017 cm3 3:20 PM HEAD OF BIOLOGY LV volume systolic 20 14 - 42 08/05/2017 cm3 3:20 PM HEAD OF BIOLOGY HR 87 bpm 08/05/2017 3:20 PM HEAD OF BIOLOGY INTERVENTRICULAR 1.2 0.6 - 0.9 08/05/2017 SEPTUM IN END cm 3:20 PM HEAD OF BIOLOGY DIASTOLE LVIDd 4.7 3.8 - 5.2 08/05/2017 cm 3:20 PM HEAD OF BIOLOGY LVIDs 3.3 2.2 - 3.5 08/05/2017 cm 3:20 PM HEAD OF BIOLOGY LVOT diam 2 cm 08/05/2017 3:20 PM HEAD OF BIOLOGY LEFT VENTRICULAR 3 mmHg 08/05/2017 OUTFLOW TRACT MEAN 3:20 PM HEAD OF BIOLOGY GRADIENT LVOT peak VTI 27.3 cm 08/05/2017 3:20 PM HEAD OF BIOLOGY LEFT VENTRICULAR 83.4 cm/s 08/05/2017 OUTFLOW TRACT MEAN 3:20 PM HEAD OF BIOLOGY VELOCITY LVOT peak oniel 114 cm/s 08/05/2017 3:20 PM HEAD OF BIOLOGY LEFT VENTRICULAR 5 mmHg 08/05/2017 OUTFLOW TRACT PEAK 3:20 PM HEAD OF BIOLOGY GRADIENT LV PWd 1.2 0.6 - 0.9 08/05/2017 cm 3:20 PM HEAD OF BIOLOGY MV E'TISSUE ONIEL-LAT 8.29 cm/s 08/05/2017 3:20 PM HEAD OF BIOLOGY MV E' med oniel 8.97 cm/s 08/05/2017 3:20 PM HEAD OF BIOLOGY AV mean oniel 218 cm/s 08/05/2017 3:20 PM HEAD OF BIOLOGY AV mean gradient 11 mmHg 08/05/2017 3:20 PM HEAD OF BIOLOGY AV VTI 58.4 cm 08/05/2017 3:20 PM HEAD OF BIOLOGY AV peak oniel 210.0 cm/s 08/05/2017 3:20 PM HEAD OF BIOLOGY AO root 3.4 cm 08/05/2017 3:20 PM HEAD OF BIOLOGY LA size 4.1 cm 08/05/2017 3:20 PM HEAD OF BIOLOGY MV decel slope 5,630 mm/s2 08/05/2017 3:20 PM HEAD OF BIOLOGY MV decel time 176 ms 08/05/2017 3:20 PM HEAD OF BIOLOGY MV P 1/2 time 77 ms 08/05/2017 3:20 PM HEAD OF BIOLOGY MV peak E oniel 135 cm/s 08/05/2017 3:20 PM HEAD OF BIOLOGY MV mean oniel 88.2 cm/s 08/05/2017 3:20 PM HEAD OF BIOLOGY MV mean gradient 4 mmHg 08/05/2017 3:20 PM HEAD OF BIOLOGY MV VTI 29.1 cm 08/05/2017 3:20 PM HEAD OF BIOLOGY MV peak Velocity 148 cm/s 08/05/2017 3:20 PM HEAD OF BIOLOGY LA AREA 2 16.8 cm2 08/05/2017 3:20 PM HEAD OF BIOLOGY LA AREA 1 21.5 cm2 08/05/2017 3:20 PM HEAD OF BIOLOGY LEFT ATRIUM LENGTH 5.19 cm 08/05/2017 3:20 PM HEAD OF BIOLOGY TAPSE 1.9 cm 08/05/2017 3:20 PM HEAD OF BIOLOGY BSA 2.35 m2 08/05/2017 3:20 PM HEAD OF BIOLOGY End systolic index 62 in 08/05/2017 (mL/m2) 3:20 PM HEAD OF BIOLOGY End diastolic index 4,480 lbs 08/05/2017 (mL/m2) 3:20 PM HEAD OF BIOLOGY IVS/PW RATIO 1.0 08/05/2017 3:20 PM HEAD OF BIOLOGY LV FS 29.8 28 - 44 % 08/05/2017 3:20 PM HEAD OF BIOLOGY Ejection Fraction 61 55 - 75 % 08/05/2017 3:20 PM HEAD OF BIOLOGY LA volume 59.2 mL 08/05/2017 3:20 PM HEAD OF BIOLOGY LV mass 212.0 g 08/05/2017 3:20 PM HEAD OF BIOLOGY AV area 1.5 cm2 08/05/2017 3:20 PM HEAD OF BIOLOGY AV DIM IND oniel 0.5 08/05/2017 3:20 PM HEAD OF BIOLOGY MV area p 1/2 time 2.9 cm2 08/05/2017 3:20 PM HEAD OF BIOLOGY MV area cont eq 2.9 cm2 08/05/2017 3:20 PM HEAD OF BIOLOGY LVOT area 3.14 cm2 08/05/2017 3:20 PM HEAD OF BIOLOGY LVOT SV 85.7 cm3 08/05/2017 3:20 PM HEAD OF BIOLOGY AV peak gradient 17.6 mmHg 08/05/2017 3:20 PM HEAD OF BIOLOGY MV peak gradient 8.8 mmHg 08/05/2017 3:20 PM HEAD OF BIOLOGY LV systolic volume 8.5 11 - 31 08/05/2017 index cm3/m2 3:20 PM HEAD OF BIOLOGY LV diastolic volume 21.7 34 - 74 08/05/2017 index cm3/m2 3:20 PM HEAD OF BIOLOGY LA volume index 25.2 mL/m2 08/05/2017 3:20 PM HEAD OF BIOLOGY LEFT VENTRICLE MASS 90.2 g/m2 08/05/2017 INDEX 3:20 PM HEAD OF BIOLOGY LV SVi 36.5 ml/m2 08/05/2017 3:20 PM HEAD OF BIOLOGY MV med E/e' ratio 15.1 08/05/2017 3:20 PM HEAD OF BIOLOGY MV lat E/e' ratio 16.3 08/05/2017 3:20 PM HEAD OF BIOLOGY LV CO 7.5 l/min 08/05/2017 3:20 PM HEAD OF BIOLOGY LV Ci 3.2 l/min/m2 08/05/2017 3:20 PM HEAD OF BIOLOGY Height 62.0 in 08/05/2017 3:20 PM HEAD OF BIOLOGY Weight 280 lbs 08/05/2017 3:20 PM HEAD OF BIOLOGY MV AVERAGE E/E' 15.6 cm/s 08/05/2017 RATIO 3:20 PM HEAD OF BIOLOGY AV DIMENSIONLESS 0.5 08/05/2017 INDEX VTI 3:20 PM HEAD OF BIOLOGY MV AREA VTI 2.95 cm2 08/05/2017 3:20 PM HEAD OF BIOLOGY Anatomical Region Laterality Modality Echocardiography Specimen (Source) Anatomical Collection Method Collection Time Re ceived Time Location / / Volume Laterality 08/05/2017 10:04 AM HEAD OF BIOLOGY Narrative 08/05/2017 3:20 PM HEAD OF BIOLOGY ?? Left ventricle ejection fraction is normal. The calculated left ventricular ejection fraction is 61%. ?? Aortic Valve: There is a bioprostheti c valve present. There is no aortic insufficiency present. The prosthetic valve is normal. ?? When compared to the previous study d ated 07/07/2017, no significant change. Procedure Note Van Levy MD / Provider, Historical - 01/07/2021 ?? Left ventricle ejection fraction is n ormal. The calculated left ventricular ejection fraction is 61%. ?? Aortic Valve: There is a bioprostheti c valve present. There is no aortic insufficiency present. The prosthetic valve is normal. ?? When compared to the previous study d ated 07/07/2017, no significant change. Johnathanassar Michelle CLEMENTS CV ECHO ORDERABLES documented in this encounter Visit Diagnoses Diagnosis S/P TAVR (transcatheter aortic valve rep lacement) documented in this encounter Care Teams Harbor Boat Pilot Relationship Specialty Start Date End Date Elyse Paredes MD PCP - General Family Practice 12/22/13 04/21/22 [address] [place] [address] documented as of this encounter
--- OUTSIDE RECORDS SUMMARY | 2022-07-02 13:44 | XMS_ITS | Encounter Summary ---
:1950 Author Organization [facility] Address [address] [place] [id number] Care Team Providers Name Role Phone Elyse Paredes MD Primary Care Provider Reason for Visit Reason Comments Follow Up Encounter Details Date Type Department Care Team Description 07/23/2017 Office Visit - [facility] Tanner Anderson PA-C [address] [place], [place] [id number] Paroxysmal atrial fibrillation (H); [facility]. Provider, Historical Severe aortic stenosis; [place] Coronary artery disease invo lving wiyot coronary artery of wiyot heart, angina presence unspecified; [address] Type 2 diabetes mellitus without complication, with long-term current use of insulin (H); [place] S/P TAVR (transcatheter aort ic valve replacement); [place], [place] New onset atr ial fibrillation (H) [id number] Social History Tobacco Use Types Packs/Day Years [...] - - Weight 125.6 kg (277 lb) 07/23/2017 1:27 PM HISTORIC SITES SUPERVISOR Height 157.5 cm (5' 2) 07/23/2017 1:27 PM HISTORIC SITES SUPERVISOR Body Mass Index 50.66 07/23/2017 1:27 PM HISTORIC SITES SUPERVISOR documented in this encounter Progress Notes Ashley Anderson PA-C - 07/23/2017 1:30 PM CST Images from the original note were not included. Progress Notes by Ashley Anderson PA-C at 07/23/2017 1:30 PM Author: Ashley Anderson PA-C Service: -- Author Type: Physician Lock Expert Filed: 07/23/2017 3:28 PM Encounter Date: 07/23/2017 Status: Signed Comfort Advisor: Ashley Anderson PA-C (Physician Lock Expert) Click to link to [facility] C[facility] NOTE Assessment/Recommendations Diagnoses and all orders for this visit: Paroxysmal atrial fibrillation -new onset. Described the pathophysiology of atrial fibrillation and increased risk of stroke that it presents with. Resting heart rates between 92 and 110. I walked withher shortly in the hallway and heart rates went up to 130s-140s. She is somewhat symptomatic. Will start anticoagulation today with Coumadin. She should stop her aspirin once INR is greater than 2. I have instructed her to get her first INR on July 27. Will also start beta-elpidio to see if we can decrease heart rates. She would be up for possible cardioversion once INRs are > 2 for 4weeks. I would like her to see 1 of the atrial fibrillation nurse practitioners on the week of August 09 to monitor symptoms and adjust medications as needed. I will also rely on cardiac rehab input and patient's reports of symptomatology. - warfarin (COUMADIN) 5 MG tablet; Take 1 tablet (5 mg total) by mouth daily. Adjust dose based on INR results as directed. Dispense: 30 tablet; Refill: 3 - metoprolol tartrate (LOPRESSOR) 25 MG tablet; Take 1 tablet (25 mg total) by mouth 2 (two) times aday. Dispense: 30 tablet; Refill: 3 Severe aortic stenosis -status post TAVR (transcatheter aortic valve replacement) on July 06. Hasnot seen improvement as of yet, but symptoms may be masked because of new onset A. fib. She has started cardiac rehab where the A. fib was diagnosed. She will continue on her Plavix and aspirin until INR greater than 2 and then will stop the aspirin. She will have a repeat echo on August 05 and then will see Dr. Martinez for her one-month follow-up visit that same day. Coronary artery disease involving wiyot coronary artery of wiyot heart, angina presence unspecified -status post LAD stent in May. She is now on Plavix and aspirin. The aspirin will be discontinued once INR is greater than 2 and she will continue Plavix for 1 year. No symptoms of angina at this time. Type 2 diabetes mellitus without complication, with long-term current use of insulin -per primary care physician. Patient is supposed to be meeting with last pattern grader to adjust medications now that she does not tolerate metformin any longer. I have asked her to wait to make any more med changes until we have atrial fibrillation rate controlled and/or we cardiovert her to a normal sinus rhythm. Thank you for the opportunity to participate in the care of Marci Diaz. It's been a pleasure working with her. Please do not hesitate to call with any questions or concerns. History of Present Illness I had the opportunity to see Marci Diaz at the [facility] for her 2 week follow-up visit after TAVR (transcatheter aortic valve replacement). 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 She is independent but has had increased dyspnea on exertion and presyncope. Because of her obesity and somewhat elevated STS, she was deemed a good candidate for TAVR (transcatheter aortic valve replacement). She came in on July 06 and underwent transcatheter aortic valve replacement via the right transfemoral approach using a #23 mm Rigo 3 valve. Yesterday she started cardiac rehab and I received a call that she had gone into atrial fibrillationwith rates between 110 and 130. She was asymptomatic at the time and I had rehab sent her home. She comes in today stating that she noticed about a week ago that she climbed the stairs and was huffing and puffing which was unlike her. This may have been the onset of her atrial fibrillation but it is hard to tell. She otherwise denies exertional chest discomfort, shortness of breath at rest, PND, orthopnea, lightheadedness, dizziness, pre-syncope or syncope. Marci Diaz also denies any recent weightloss, changes in appetite, nausea or vomiting. Physical Examination Review of Systems Vitals: 07/23/17 1327 BP: 120/74 Pulse: (!) 106 Resp: 18 Body mass index is 50.66 kg/(m^2). Wt Readings from Last 3 Encounters: 07/23/17 (!) 277 lb (125.6 kg) 07/22/17 (!) 278 lb 12.8 oz (126.5 kg) 07/08/17 (!) 277 lb (125.6 kg) General Appearance: Alert, cooperative and in no acute distress ENT/Mouth: membranes moist, no oral lesions or bleeding gums. EYES: no scleral icterus, normal conjunctivae Neck: no carotid bruits. Thyroid not visualized Chest/Lungs: lungs are clear to auscultation, no rales or wheezing Cardiovascular: irregular. Normal first and second heart sounds with no murmurs, rubs, or gallops; the carotid, radial and posterior tibial pulses are intact, no edema bilaterally Abdomen: Soft and nontender. Bowel sounds are present in all quadrants Extremities: no cyanosis or clubbing. Skin: no xanthelasma, warm. Neurologic: normal gait, normal book agent bilateral, no tremors Psychiatric: Normal mood and affect General: WNL Eyes: WNL Ears/Nose/Throat: Nosebleeds Lungs: Shortness of Breath Heart: Shortness of Breath with activity, Irregular Heartbeat Stomach: WNL Bladder: WNL Muscle/Joints: WNL Skin: WNL Nervous System: WNL Mental Health: Anxiety Blood: Easy Bleeding, Easy Bruising Medical History Surgical History Family History Social History Past Medical History: Diagnosis Date ? Bicuspid aortic valve ? COPD (chronic obstructive pulmonary disease) ? Depression ? Diabetes mellitus insulin ? DJD (degenerative joint disease) ? Dyspnea ? Hyperlipidemia ? Hypertension ? Kidney stones ? Morbid obesity ? Nephrolithiasis ? DEDE on CPAP ? Severe aortic stenosis Past Surgical History: Procedure Laterality Date ? CARDIAC CATHETERIZATION 05/12/2017 ? CV CORONARY ANGIOGRAM N/A 05/12/2017 Procedure: Coronary Angiogram; Surgeon: Ankush Martinez MD; Location: [facility] Field Marketing Representative; Service: ? CV TRANSFEMORAL TRANSCATHETER VALVE REPLACEMENT N/A 07/06/2017 Procedure: Transfemoral Transcatheter Aortic Valve Replacement; Surgeon: Ankush Martinez MD; Location: [facility] [place]; Service: ? knee replacements Bilateral Family History Problem Relation Age of Onset ? Diabetes Father ? Heart disease Father ? Cancer Brother esophageal ? Urolithiasis Neg Hx ? Clotting disorder [...] Outpatient Prescriptions Medication Sig Dispense Refill ? aspirin 81 mg chewable tablet Chew 1 tablet (81 mg total) daily. 0 ? BD INSULIN PEN NEEDLE [...] mouth daily. Patient takes 50mg daily ? metoprolol tartrate (LOPRESSOR) 25 MG tablet Take 1 tablet (25 mg total) by mouth 2 (two) times a day. 30 tablet 3 ? warfarin (COUMADIN) 5 MG tablet Take 1 tablet (5 mg total) by mouth daily. Adjust dose based on INR results as directed. 30 tablet 3 No current facility-administered medications for this visit. Allergies Allergen Reactions ? Lisinopril Cough ? Metformin Nausea And Vomiting ? Erythromycin Base Rash Lab Results Chemistry/lipid CBC Cardiac Enzymes/BNP/TSH/INR Lab Results Component Value Date CHOL 150 01/21/2017 HDL 45 (L) 01/21/2017 LDLCALC 78 01/21/2017 TRIG 136 01/21/2017 CREATININE 1.01 07/08/2017 BUN 19 07/08/2017 K 4.6 07/08/2017 NA 138 07/08/2017 CL 104 07/08/2017 CO2 25 07/08/2017 Lab Results Component Value Date WBC 8.8 07/08/2017 HGB 11.2 (L) 07/08/2017 HCT 33.6 (L) 07/08/2017 MCV 92 07/08/2017 PLT 124 (L) 07/08/2017 Lab Results Component Value Date BNP 25 07/05/2017 INR 1.22 (H) 07/06/2017 40 minutes were spent with the patient with greater than 50% spent on education and counseling. This note has been dictated using voice recognition software. Any grammatical or context distortionsare unintentional and inherent to the software. Ashley Harvey PA-C, [facility] ORIC SITES SUPERVISOR documented in this encounter Plan of Treatment Not on filedocumented as of this encounter Visit Diagnoses Diagnosis Paroxysmal atrial fibrillation (H) Atrial fibrillation Severe aortic stenosis Aortic valve disorders Coronary artery disease involving wiyot coronary artery of wiyot heart, angina presence unspecified Type 2 diabetes mellitus without complic ation, with long-term current use of insulin (H) S/P TAVR (transcatheter aortic valve rep lacement) New onset atrial fibrillation (H) Atrial fibrillation documented in this encounter Care Teams Road Oiler Relationship Specialty Start Date End Date Elyse Paredes MD PCP - General Family Practice 12/22/13 04/21/22 [address] [place] [address] documented as of this encounter
--- OUTSIDE RECORDS SUMMARY | 2022-07-02 13:44 | XMS_ITS | Encounter Summary ---
:1950 Author Organization [facility] Address [address] [place] [address] Care Team Providers Name Role Phone Elyse Paredes MD Primary Care Provider Encounter Details Date Type Department Care Team Description 08/04/2017 [facility] Gabrielle Golden S/P TAVR [facility] Dora RN (transcatheter Sledge aortic valve [address] [facility] replacement) [place] [address] [place] [phone] Social History Tobacco Use Types Packs/Day Years Used Date Smoking Tobacco: Never Assessed Sex Assigned at Date Recorded Not on file documented as of this encounter Progress Notes Gabrielle Golden RN - 08/04/2017 10:43 AM CST INR 4.3 will hold Warfarin today and then 5 mg daily. Retest on 08/09. After talking with pt and discussing history [...] coming procedures. Cautioned about using Herbal medication. IC SERVICE OFFICER documented in this encounter Plan of Treatment Not on filedocumented as of this encounter Procedures Procedure Name Priority Date/Time Associated Diagnosis Comme nts INR POINT OF CARE Routine 08/04/2017 Results fo r this procedure are in the resu lts section. documented in this encounter Results INR point of care (08/04/2017) P athologist Signature INR 4.3 Specimen (Source) Anatomical Location Collection Method / Collectio n Time Received Time / Laterality Volume Blood specimen 08/04/2017 (specimen) Ankush Martinez MD LAB - BLOOD ORDERABLES documented in this encounter Visit Diagnoses Diagnosis S/P TAVR (transcatheter aortic valve rep lacement) documented in this encounter Care Teams Word Processor Relationship Specialty Start Date End Date Elyse Paredes MD PCP - General Family Practice 12/22/13 04/21/22 [address] [place] [address] documented as of this encounter
--- OUTSIDE RECORDS SUMMARY | 2022-07-02 13:45 | XMS_ITS | Encounter Summary ---
:1950 Author Organization [facility] Address [address] [place] [address] Care Team Providers Name Role Phone Elyse Paredes MD Primary Care Provider Encounter Details Date Type Department Care Team Description [facility]/12/2017 [facility] CARDIAC FLEET SERVICE MANAGER Johnathan Martinez MD [address] [facility] [address] [place], [place] [id number] Social History Tobacco Use Types Packs/Day Years [...] - - Weight 129.3 kg (285 lb) 05/12/2017 6:54 AM CDT Height 157.5 cm (5' 2) 05/12/2017 6:54 AM CDT Body Mass Index 52.13 05/12/2017 6:54 AM CDT documented in this encounter Plan of Treatment Not on filedocumented as of this encounter Visit Diagnoses Not on filedocumented in this encounter Care Teams Rolled Glass Crosscutter Relationship Specialty Start Date End Date Elyse Paredes MD PCP - General Family Practice 12/22/13 04/21/22 [address] [place] [address] documented as of this encounter
--- OUTSIDE RECORDS SUMMARY | 2022-07-02 13:45 | XMS_ITS | Encounter Summary ---
:1950 Author Organization [place] Address [address] [place] [address] Care Team Providers Name Role Phone Elyse Paredes MD Primary Care Provider Encounter Details Date Type Department Care Team Description 04/21/2017 Hospital Encounter [facility], Suzanna re aortic [facility] [address] [place] [id number] [phone] Social History Tobacco Use Types Packs/Day Years [...] Priority Date/Time Associated Diagnosis Comme nts CT ANGIOGRAM TAVR Routine 04/21/2017 3:22 PM Severe aortic Res ults for this OVERREAD CDT stenosis procedure are i n the results section. CTA CHEST ABDOMEN Routine 04/21/2017 3:22 PM Severe aortic Res ults for this PELVIS W CONTRAST CDT stenosis procedure are in the results section. documented in this encounter Results CT Angiogram TAVR Overread (04/21/2017 3:22 PM CDT) Anatomical Region Laterality Modality Lower Extremity, UMP CT CTA Computed Dung ography Specimen (Source) Anatomical Location Collection Method / Collectio n Time Received Time / Laterality Volume Narrative 04/23/2017 11:09 AM CDT INDICATIONS: Severe aortic valve stenosis. EXAM: CT evaluation of the heart and per ipheral vascular with intravenous contrast prior to TAVR procedure. TECHNIQUE: ECG gated CT of the heart wit h intravenous contrast was performed on a Siemens Definition Flash CT scanner using 90 mL Omnipaque 350. The TAVR protocol for angiography was performed with an a verage heart rate of 77 beats per minute . The pulse ranged between 20, 30, 40, and 70% of th e cardiac phase. Descending aorta, abdominal aorta, iliac/femoral arteries was scanned without ECG gating. The imaging protocol was individualized to minimize radiation exposure. Image post processing was performed on [employer] workstation. T his study was performed after discussion of the goals, risk, benefits and alternatives of the procedure. Risks discussed included the risk of contrast injection and diagnostic x-ray exposure. The best reconstructions were obtained at 20 to 4 0 and 70 of the cardiac phase. Aortic valve annulus is analyzed at 20% of cardiac phase. FINDINGS: AORTIC VALVE: Trileaflet aortic valve with moderate ca lcium on all three, left, right, non coronary cusps. ?? Calcium is not present in the annulus and does not extend into the LVOT. Area: ?444 ??mm2 Perimeter: ??80 ??mm Diameters measured: 22x26 ??mm Diameter calculated: 24 ??mm Sinus of Valsalva: Diameters: ??29x30 ??mm Height: ?? 12 ??mm Distance from Annulus: LM: ?? 16 ??mm RCA: ?? 12 ??mm Sinotubular junction diameters: 26x27 ?? mm Ascending aorta diameters: 31x32 ??mm ADDITIONAL FINDINGS: 1. Normal left ventricular size and thic kness, normal apical thickness without calcium. 2. Normal pulmonary artery and venous an atomy. All pulmonary veins draining into the left atrium. ?? 3. No left atrial or left ventricular ma ss or thrombus. ?? 4. Normal pericardial thickness. No ihsan cardial effusion. 5. Coronary artery disease - Some calcif ied plaques in LAD leading mild to moderate disease, D1 could have moderate to severe short lesion, mild disease in LCx and mild to moderate in distal RCA. AORTA AND PERIPHERAL VASCULATURE: No ascending and descending aortic aneur ysm. Both ascending and descending aorta have small scatter calcified plaques. Abdominal aorta has small amount of calcium and is not circumferential. Iliac and femoral arteries are mild tort uosity and have small, moderate, large amount of calcium and is not circumferential. Smallest diameter of the: Right common iliac: 11x11 ??mm 111 mm2 Right External iliac: 8x8 ??mm 54 mm2 Right femoral: ??6x6 ??mm 30 mm2 Left common iliac: 11x12 ??mm 119 mm2 Left External iliac: 8x8 ??mm 60 mm2 Left femoral: ??6x6 ??mm 32 mm2 Right femoral artery has no calcium on t he anterior surface and bifurcates at below the femoral head. Left femoral artery has no calcium on th e anterior surface and bifurcates at below the femoral head. Please note: Radiology review for incide ntal non cardiac findings will be under separate report by the radiologist. CONCLUSIONS? 1. Aortic stenosis: ??Aortic annulus are a measures 444 mm2 and calculated diameter of 24 mm. ?? 2. Consider right femoral and left femor al transaortic approach. ?? 3. Normal left ventricular size and norm al apical wall thickness. 4. No ascending and descending aortic an eurysm. 5. Coronary artery disease - Some calcif ied plaques in LAD leading mild to moderate disease, D1 could have moderate to severe short lesion, mild disease in LCx and mild to moderate in distal RCA. (Image quality is limited). Alistair Limon MD, PhD, [facility] Non-curtain hemmer automatic Procedure Note Alistair Limon - 01/06/2021Formatting of thi s note might be different from the original. INDICATIONS: Severe aortic valve stenosi s. EXAM: CT evaluation of the heart and per ipheral vascular with intravenous contrast prior to TAVR procedure. TECHNIQUE: ECG gated CT of the heart wit h intravenous contrast was performed on a Siemens Definition Flash CT scanner using 90 mL Omnipaque 350. The TAVR protocol for angiography was performed with an average heart rate of 77 beats per minute. The pulse ranged between 20, 30, 40, and 70% of th e cardiac phase. Descending aorta, abdominal aorta, iliac/femoral arteries was scanned without ECG gating. The imaging protocol was individualized to minimize radiation exposure. Image post processing was performed on [employer] workstation. T his study was performed after discussion of the goals, risk, benefits and alternatives of the procedure. Risks discussed included the risk of contrast injection and diagnostic x-ray exposure. The best reconstructions were obtained at 20 to 4 0 and 70 of the cardiac phase. Aortic valve annulus is analyzed at 20% of cardiac phase. FINDINGS: AORTIC VALVE: Trileaflet aortic valve with moderate ca lcium on all three, left, right, non coronary cusps. Calcium is not present in the annulus and does not extend into the LVOT. Area: 444 mm2 Perimeter: 80 mm Diameters measured: 22x26 mm Diameter calculated: 24 mm Sinus of Valsalva: Diameters: 29x30 mm Height: 12 mm Distance from Annulus: LM: 16 mm RCA: 12 mm Sinotubular junction diameters: 26x27 mm Ascending aorta diameters: 31x32 mm ADDITIONAL FINDINGS: 1. Normal left ventricular size and thic kness, normal apical thickness without calcium. 2. Normal pulmonary artery and venous an atomy. All pulmonary veins draining into the left atrium. 3. No left atrial or left ventricular ma ss or thrombus. 4. Normal pericardial thickness. No ihsan cardial effusion. 5. Coronary artery disease - Some calcif ied plaques in LAD leading mild to moderate disease, D1 could have moderate to severe short lesion, mild disease in LCx and mild to moderate in distal RCA. AORTA AND PERIPHERAL VASCULATURE: No ascending and descending aortic aneur ysm. Both ascending and descending aorta have small scatter calcified plaques. Abdominal aorta has small amount of calcium and is not circumferential. Iliac and femoral arteries are mild tort uosity and have small, moderate, large amount of calcium and is not circumferential. Smallest diameter of the: Right common iliac: 11x11 mm 111 mm2 Right External iliac: 8x8 mm 54 mm2 Right femoral: 6x6 mm 30 mm2 Left common iliac: 11x12 mm 119 mm2 Left External iliac: 8x8 mm 60 mm2 Left femoral: 6x6 mm 32 mm2 Right femoral artery has no calcium on t he anterior surface and bifurcates at below the femoral head. Left femoral artery has no calcium on th e anterior surface and bifurcates at below the femoral head. Please note: Radiology review for incide ntal non cardiac findings will be under separate report by the radiologist. CONCLUSIONS? 1. Aortic stenosis: Aortic annulus area measures 444 mm2 and calculated diameter of 24 mm. 2. Consider right femoral and left femor al transaortic approach. 3. Normal left ventricular size and norm al apical wall thickness. 4. No ascending and descending aortic an eurysm. 5. Coronary artery disease - Some calcif ied plaques in LAD leading mild to moderate disease, D1 could have moderate to severe short lesion, mild disease in LCx and mild to moderate in distal RCA. (Image quality is limited). Alistair Limon MD, PhD, [facility] Non-curtain hemmer automatic Alfonzo Steele MD IMG CT ORDERABLES CTA Chest Abdomen Pelvis w Contrast (04/21/2017 3:22 PM CDT) Anatomical Region Laterality Modality Lower Extremity, SUBRAD IR PROCEDURE, UMP CT CTA, RAD Computed Tomography CT Specimen (Source) Anatomical Location Collection Method / Collectio n Time Received Time / Laterality Volume Impressions 04/22/2017 8:38 AM CDT CONCLUSION: 1. ??Normal caliber of the thoracoabdomi nal aorta and pelvic arteries. Common femoral arteries are patent bilaterally. No significant stenosis, evidence of dissection, or occlusion. 2. ??Nonobstructive nephrolithiasis in t he lower pole the right kidney. 3. ??Diverticulosis. 4. 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 Narrative 04/22/2017 8:38 AM CDT CTA CHEST ABDOMEN PELVIS 04/21/2017 3:22 PM INDICATION: Aortic valve replacement, pr eprocedural planning for percutaneous intervention. TECHNIQUE: Multiphase helical acquisitio n through the chest, abdomen, and pelvis was performed including noncontrast, arterial phase, and delayed images before and after the administration of IV contras t. 2D and 3D reconstructions were perfor med by the tomography technologist. Dose reduction techniqu es were used. IV CONTRAST: 90 cc Omnipaque 350 COMPARISON: CT chest 11/27/2008. Ultrasou nd 01/09/2014. FINDINGS: CT ANGIOGRAM CHEST, ABDOMEN, AND PELVIS: The thoracic aorta appears patent without evidence of dissection, stenosis, or occlusion and demonstrate a normal caliber. Normal great vessel branching pattern. Coronary artery calcifications and aort ic valve calcifications are noted. The abdominopelvic aorta is patent witho ut evidence of dissection, stenosis, or occlusion demonstrated normal caliber. The pelvic arteries are patent. The common femoral arteries appear widely patent. The visualized superficial and profunda femoral arteries appear patent. Mild atheroscler otic disease is seen. Moderate disease involving the proximal left renal artery and mild to moderate disease involving the right renal artery. Celiac trunk and SMA are patent. The DENNYS appears patent. CHEST: LUNGS AND PLEURA: No pleural effusion or pneumothorax. Minimal lingular atelectasis. MEDIASTINUM: Heart is mildly enlarged. N o pericardial effusion. No bulky lymphadenopathy. ABDOMEN: Suboptimal evaluation the solid organs due to mild photon starvation artifact as well as the arterial phase of contrast enhancement. Rounded hypodensity in the mid/lower pole of the left kidney measuring 5.2 x 5.5 cm likely correspon ding with known simple cyst on ultrasound dated 05/2014. Nonobstructive nephrolithiasis seen anteriorly in the lower pole of the right kidney. The remainder of the solid organs are grossly unremarkable. PELVIS: No free fluid or free air. Diver ticulosis. The bladder is unremarkable. No dilated loops of bowel. Note, due to body habitus, a portion of the left abdomen/pelvis is not within the field of view of the study. MUSCULOSKELETAL: Severe degenerative dis ease of the lower lumbar spine. Procedure Note Clem Gibbons MD - 01/06/2021Formattin g of this note might be different from the original. CTA CHEST ABDOMEN PELVIS 04/21/2017 3:22 PM INDICATION: Aortic valve replacement, pr eprocedural planning for percutaneous intervention. TECHNIQUE: Multiphase helical acquisitio n through the chest, abdomen, and pelvis was performed including noncontrast, arterial phase, and delayed images before and after the administration of IV contrast. 2D and 3D reconstructions were performed by the tomography technologist. Dose reduction techniqu es were used. IV CONTRAST: 90 cc Omnipaque 350 COMPARISON: CT chest 11/27/2008. Ultrasou nd 01/09/2014. FINDINGS: CT ANGIOGRAM CHEST, ABDOMEN, AND PELVIS: The thoracic aorta appears patent without evidence of dissection, stenosis, or occlusion and demonstrate a normal caliber. Normal great vessel branching pattern. Coronary artery calcifications and aortic valve calcifications are noted. The abdominopelvic aorta is patent witho ut evidence of dissection, stenosis, or occlusion demonstrated normal caliber. The pelvic arteries are patent. The common femoral arteries appear widely patent. The visualized superficial and profunda femoral arteries appear patent. Mild atheroscler otic disease is seen. Moderate disease involving the proximal left renal artery and mild to moderate disease involving the right renal artery. Celiac trunk and SMA are patent. The DENNYS appears patent. CHEST: LUNGS AND PLEURA: No pleural effusion or pneumothorax. Minimal lingular atelectasis. MEDIASTINUM: Heart is mildly enlarged. N o pericardial effusion. No bulky lymphadenopathy. ABDOMEN: Suboptimal evaluation the solid organs due to mild photon starvation artifact as well as the arterial phase of contrast enhancement. Rounded hypodensity in the mid/lower pole of the left kidney measuring 5.2 x 5.5 cm likely corresponding with known simple cyst on ultrasound dated 05/2014. Nonobstructive nephrolithiasis seen anteriorly in the lower pole of the right kidney. The remainder of the solid organs are grossly unremarkable. PELVIS: No free fluid or free air. Diver ticulosis. The bladder is unremarkable. No dilated loops of bowel. Note, due to body habitus, a portion of the left abdomen/pelvis is not within the field of view of the study. MUSCULOSKELETAL: Severe degenerative dis ease of the lower lumbar spine. IMPRESSION: CONCLUSION: 1. Normal caliber of the thoracoabdomina l aorta and pelvic arteries. Common femoral arteries are patent bilaterally. No significant stenosis, evidence of dissection, or occlusion. 2. Nonobstructive nephrolithiasis in the lower pole the right kidney. 3. Diverticulosis. 4. Severe degenerative disease of the lo wer lumbar spine particularly at L4-5. Alfonzo Steele MD IMFreya CT ORDERABLES documented in this encounter Visit Diagnoses Diagnosis Severe aortic stenosis Aortic valve disorders documented in this encounter Care Teams Assembler Body Relationship Specialty Start Date End Date Elyse Paredes MD PCP - General Family Practice 12/22/13 04/21/22 [address] [place] [address] documented as of this encounter
--- OUTSIDE RECORDS SUMMARY | 2022-07-02 13:45 | XMS_ITS | Encounter Summary ---
:1950 Author Organization [place] Address [address] [place] [address] Care Team Providers Name Role Phone Elyse Paredes MD Primary Care Provider Encounter Details Date Type Department Care Team Description 05/12/2017 Hospital Encounter [facility] Ahmed, Coronary artery disease involving deering coronary artery of deering heart, angina presence unspecified; SPECIAL CARE MD Ankush Severe aortic stenosis; [address] [facility] Coronary arter y disease involving deering coronary artery of deering heart without angina pectoris [address] [place] [address] Social History Tobacco Use Types Packs/Day Years [...] 6:54 AM CDT documented in this encounter Medications [...] mouth daily. documented as of this encounter H&P Notes Dee Dee Sewell CNP - 05/12/2017 7:27 AM CDT H&P Pre-Procedure Update Marci Luís iDaz 05/11/2017 Provider: VITOR Mccray Patient presents for coronary angiogram in anticipation of TAVR. She has a history of severe, symptomatic with preserved LV fxn; EF 65%. Last H/P was performed on 04/16/2017 The patient's preprocedure history and physical from the clinic is reviewed. There are no significant changes in the patient's clinical status. The patient's physical exam is essentially unchanged. Questions regarding the patient's upcoming procedure were answered. Risks benefits and expected outcomes were reviewed and the patient agrees to proceed. documented in this encounter Plan of Treatment Not on filedocumented as of this encounter Procedures Procedure Name Priority Date/Time Associated Diagnosis Comme nts ECG 12-LEAD WITH Routine 05/12/2017 9:43 AM Resul ts for this MUSE ? CDT procedure are in SHANDAN,TIMOTHY,SHEREEN the results section. CV CORONARY Routine 05/12/2017 9:11 AM Severe aortic Results for this ANGIOGRAM CDT stenosis procedure are i n the results section. ECG 12-LEAD WITH Routine 05/12/2017 6:46 AM Resul ts for this MUSE ? CDT procedure are in SJN,SHANDAO,SHEREEN the results section. documented in this encounter Results ECG 12-LEAD WITH MUSE ([facility]) (05/12/2017 9:43 AM CDT) [facility] gist Method Time Signature Systolic Blood mmHg 05/12/2017 HE [facility]ANT Pressure 12:50 PM CONVERSION CDT Diastolic Blood mmHg 05/12/2017 HE RADIANT Pressure 12:50 PM CONVERSION CDT Ventricular Rate 60 BPM 05/12/2017 HE RADIANT 12:50 PM CONVERSION CDT Atrial Rate 60 BPM 05/12/2017 HE RADIANT 12:50 PM CONVERSION CDT OK Interval 130 ms 05/12/2017 HE RADIANT 12:50 PM CONVERSION CDT QRS Duration 88 ms 05/12/2017 HE RADIANT 12:50 PM CONVERSION CDT QT 398 ms 05/12/2017 HE RADIANT 12:50 PM CONVERSION CDT QTc 398 ms 05/12/2017 [facility] 12:50 PM CONVERSION CDT P Maceo -10 degrees 05/12/2017 [facility] 12:50 PM CONVERSION CDT R AXIS 12 degrees 05/12/2017 HE [facility] 12:50 PM CONVERSION CDT T Maceo 27 degrees 05/12/2017 HE [facility] 12:50 PM CONVERSION CDT Interpretation Normal sinus rhythm with occasional Premature atrial complexes 05/12/2017 HE RADIANT ECG Otherwise normal ECG 12:50 PM CONVERSIO N When compared with ECG of 12-MAY-2017 06:45, CDT Vent. rate has decreased BY ??39 BPM Confirmed by KATHY ??, COREEN LOC:SJ ([id number]) on 05/12/2017 12:50:33 PM Specimen Anatomical Collection Method Collection Time Receive d Time (Source) Location / / Volume Laterality 05/12/2017 9:43 AM 7 CDT 12:50 PM CDT Ankush Martinez MD ECG ORDERABLES Performing Organization Address City/State/ZIP Code Phon e Number HE CARDIOLOGY CONVERSION [facility] CONVERSION Coronary Angiogram (05/12/2017 9:11 AM CDT) Anatomical Region Laterality Modality Cardio Other Specimen (Source) Anatomical Collection Method Collection Time Re ceived Time Location / / Volume Laterality 04/16/2017 2:03 PM CDT Narrative 05/12/2017 9:24 AM CDT 67 yo F with severe aortic stenosis, seen by Dr Steele and felt to appropriate for TAVR, given intermediate STS risk score and significant obesity. Pre TAVR cath today showed obstructive d isease mid LAD, treated successfully with Synergy JEFFERSON. No other significant disease. Details: LM minimal dz LAD 75% mid stenosis LCx mild dz RCA large, dominant, mild dz Successful PCI mid LAD with 3x20 Synergy JEFFERSON 0% residual, Umer 3 flow pre and post Procedure Note Ankush Martinez - 01/08/2021Formatting o f this note might be different from the original. 67 yo F with severe aortic stenosis, see n by Dr Steele and felt to appropriate for TAVR, given intermediate STS risk score and significant obesity. Pre TAVR cath today showed obstructive d isease mid LAD, treated successfully with Synergy JEFFERSON. No other significant disease. Details: LM minimal dz LAD 75% mid stenosis LCx mild dz RCA large, dominant, mild dz Successful PCI mid LAD with 3x20 Synergy JEFFERSON 0% residual, Umer 3 flow pre and post Alfonzo Steele MD CV CARDIAC CATH ORDERABLES ECG 12-LEAD WITH MUSE ([facility]HE) (05/12/2017 6:46 AM CDT) Patholo gist Method Time Signature Systolic Blood mmHg 05/12/2017 HE [facility]ANT Pressure 8:48 AM CDT CONVERSION Diastolic Blood mmHg 05/12/2017 [facility] Pressure 8:48 AM CDT CONVERSION Ventricular Rate 99 BPM 05/12/2017 [facility] 8:48 AM CDT CONVERSION Atrial Rate 99 BPM 05/12/2017 [facility] 8:48 AM CDT CONVERSION OK Interval 154 ms 05/12/2017 [facility] 8:48 AM CDT CONVERSION QRS Duration 90 ms 05/12/2017 [facility] 8:48 AM CDT CONVERSION QT 352 ms 05/12/2017 [facility] 8:48 AM CDT CONVERSION QTc 451 ms 05/12/2017 [facility] 8:48 AM CDT CONVERSION P Maceo 43 degrees 05/12/2017 [facility] 8:48 AM CDT CONVERSION R AXIS 17 degrees 05/12/2017 [facility] 8:48 AM CDT CONVERSION T Maceo 35 degrees 05/12/2017 [facility] 8:48 AM CDT CONVERSION Interpretation Normal sinus rhythm 05/12/2017 HE R ADIANT ECG Normal ECG 8:48 AM CDT CONVERSION When compared with ECG of 07-JAN-2010 22:24, Vent. rate has increased BY ??40 BPM Confirmed by LETTY ??BERRY CLEMENTS LOC:SJ ([id number]) on 05/12/2017 8:48:14 AM Specimen Anatomical Collection Method Collection Time Receive d Time (Source) Location / / Volume Laterality 05/12/2017 6:46 AM 7 8:48 CDT AM CDT Alfonzo Steele MD ECG ORDERABLES Performing Organization Address City/State/ZIP Code Phon e Number HE CARDIOLOGY CONVERSION [facility] CONVERSION documented in this encounter Visit Diagnoses Diagnosis Coronary artery disease involving deering coronary artery of deering heart, angina presence unspecified Severe aortic stenosis Aortic valve disorders Coronary artery disease involving deering coronary artery of deering heart without angina pectoris documented in this encounter Care Teams Molding Engineer Relationship Specialty Start Date End Date Elyse Paredes MD PCP - General Family Practice 12/22/13 04/21/22 [address] [place] [address] documented as of this encounter
--- OUTSIDE RECORDS SUMMARY | 2022-07-02 13:45 | XMS_ITS | Encounter Summary ---
:1950 Author Organization [place] Address [address] [place] [address]. [place] [address] Care Team Providers Name Role Phone Elyse Paredes MD Primary Care Provider Reason for Visit Reason Comments Flank Pain Encounter Details Date Type Department Care Team Description 06/05/2017 Hospital Encounter [facility] Cherise Stinson U reteral stone; DEPARTMENT MD Lynne Ureteral colic; [address] [place] [address] Flank pain, acute; [place], [place] Flank pain [id number] [phone] Social History Tobacco Use Types Packs/Day Years [...] - - Weight 129.3 kg (285 lb) 06/05/2017 5:59 PM CDT Height 157.5 cm (5' 2) 06/05/2017 5:59 PM CDT Body Mass Index 52.13 06/05/2017 5:59 PM CDT documented in this encounter Medications at [...] mouth daily. documented as of this encounter ED Notes Cherise Stinson MD - 06/05/2017 6:01 PM CDT EMERGENCY DEPARTMENT ENCOUnter CHIEF COMPLAINT Chief Complaint Patient presents with ??? Flank Pain HPI Marci Diaz is a 67 y.o. female with morbid obesity who presents to the ED with flank pain. The patient reports experiencing an acute onset of sharp right flank pain today at 1500. She states having nausea and emesis since the onset of the sharp right flank pain. Admits to vomiting in a Tupperware container en route. She says, vomiting mildly alleviated my flank pain. The patient also complains oflower abdominal pain. She has a history of kidney stones, and admits to having hematuria and needingshock wave lithotripsy with past kidney stones. Of note, the patient has a cardiac heart valve replacement scheduled for 07/06 and recently had a CTA of her abdomen and chest on 04/[address] Steele. The findings of the abdomen showed a nonobstructive nephrolithiasis seen anteriorly in the lower pole of the right kidney. Patient takes Plavix for a past heart stent. Denies hematuria, fevers, diarrhea, or any other complaints at this time. The creation of this record is based on the scribe's observations of the work of Cherise Stinson MD and the provider's statements to them. It was created on her behalf by Tay Malcolm, a trained medical receptionist. This document has been checked and approved by the attending provider. REVIEW OF SYSTEMS A 10 point ROS was performed. All pertinent positive and negatives are in the HPI and ROS below. Allothers noncontributory. Review of Systems Constitutional: Negative for fever. Gastrointestinal: Positive for abdominal pain, nausea and vomiting. Negative for diarrhea. Genitourinary: Positive for flank pain. Negative for dysuria and hematuria. Musculoskeletal: Negative for back pain. Skin: Negative for rash. Allergic/Immunologic: Negative for immunocompromised state. All other systems reviewed and are negative. CODE STATUS: Full PAST MEDICAL HISTORY Past Medical History: Diagnosis Date ??? Bicuspid aortic valve ??? COPD (chronic obstructive pulmonary disease) ??? Depression ??? Diabetes mellitus insulin ??? DJD (degenerative joint disease) ??? Dyspnea ??? Hyperlipidemia ??? Hypertension ??? Kidney stones ??? Morbid obesity ??? Nephrolithiasis ??? DEDE on CPAP ??? Severe aortic stenosis PAST SURGICAL HISTORY Past Surgical History: Procedure Laterality Date ??? CARDIAC CATHETERIZATION 05/12/2017 ??? CV CORONARY ANGIOGRAM N/A 05/12/2017 Procedure: Coronary Angiogram; Surgeon: Ankush Martinez MD; Location: [facility]; Service: ??? knee replacements Bilateral CURRENT MEDICATIONS Current Outpatient Prescriptions Medication Sig Note ??? aspirin 81 mg chewable tablet Chew 1 tablet (81 mg total) daily. ??? BD INSULIN PEN NEEDLE UF SHORT 31 gauge x 12/15 Ndle USE WITH TOUJEO AND VICTOZA BID 12/30/2016: Received from: External Pharmacy ??? celecoxib (CELEBREX) 200 MG capsule Take 1 capsule by mouth daily. 08/14/2015: Received from: External Pharmacy Received Sig: ??? clopidogrel (PLAVIX) 75 mg tablet TAKE 1 TABLET BY MOUTH EVERY DAY ??? CRESTOR 10 mg tablet Take 1 tablet by mouth daily. 08/14/2015: Received from: External Pharmacy Received Sig: ??? dimenhyDRINATE (DRAMAMINE) 50 MG tablet Take 1 tablet (50 mg total) by mouth at bedtime as needed. ??? ibuprofen (ADVIL,MOTRIN) 200 MG tablet Take 2 tablets (400 mg total) by mouth every 8 (eight) hours as needed for pain (kidney stone pain). ??? insulin aspart (NOVOLOG) 100 unit/mL injection Inject 6-10 Units under the skin 3 (three) times a day before meals. ??? LANTUS SOLOSTAR 100 unit/mL (3 mL) pen 30 Units 2 (two) times a day. 08/14/2015: Received from: External Pharmacy Received Sig: ??? levoFLOXacin (LEVAQUIN) 500 MG tablet Take 1 tablet (500 mg total) by mouth daily for 10 days. ??? losartan (COZAAR) 50 MG tablet Take 1 tablet by mouth daily. 08/14/2015: Received from: External Pharmacy Received Sig: ??? ondansetron (ZOFRAN ODT) 4 MG disintegrating tablet Take 1 tablet (4 mg total) by mouth every 8 (eight) hours as needed for nausea. ??? oxyCODONE-acetaminophen (PERCOCET) 5-325 mg per tablet Take 1-2 tablets by mouth every 6 (six) hours as needed for pain (Do not drive or mix with alcohol). ??? sertraline (ZOLOFT) 100 MG tablet Take 50 mg by mouth daily. 08/14/2015: Received from: External Pharmacy Received Sig: ALLERGIES Allergies Allergen Reactions ??? Lisinopril Cough ??? Erythromycin Base Rash FAMILY HISTORY History reviewed. No pertinent family history. SOCIAL HISTORY Social History Substance Use Topics ??? Smoking status: Never Smoker ??? Smokeless tobacco: Never Used ??? Alcohol use None Social History Social History ??? Marital status: Spouse name: N/A ??? Number of children: N/A ??? Years of education: N/A Occupational History ??? Not on file. Social History Main Topics ??? Smoking status: Never Smoker ??? Smokeless tobacco: Never Used ??? Alcohol use Not on file ??? Drug use: No ??? Sexual activity: Not on file Other Topics Concern ??? Not on file Social History Narrative VITALS: Patient Vitals for the past 24 hrs: BP Temp Temp src Pulse Resp SpO2 Height Weight 06/05/171955 125/56 - - 75 - 94 % - - 06/05/171954 - - - 72 - 94 % - - 06/05/17 1759 169/74 98.1 ??F (36.7 ??C) Oral 77 16 99 % 5' 2 (1.575 m) (!) 285 lb (129.3 kg) PHYSICAL EXAM Constitutional: Well developed, Well nourished, NAD, GCS 15 HENT: Normocephalic, Atraumatic, Bilateral external ears normal, Oropharynx normal, mucous membranesmoist, Nose normal. Neck- Normal range of motion, No tenderness, Supple, No stridor. Eyes: PERRL, EOMI, Conjunctiva normal, No discharge. Respiratory: Normal breath sounds, No respiratory distress, No wheezing, Speaks full sentences easily. No cough. Cardiovascular: Normal heart rate, Regular rhythm, No murmurs, No rubs, No gallops. GI: +Morbid obesity. Bowel sounds normal, Soft, No tenderness, No masses, No flank tenderness. No rebound or guarding. No Flank pain on examination, but she does indicate that her pain is located in this area, just deeper inside : deferred Musculoskeletal: 2+ DP pulses. No edema. No cyanosis, No clubbing. Good range of motion in all majorjoints. No tenderness to palpation or major deformities noted. No midline tenderness of the CTLS spine. Integument: Warm, Dry, No erythema, No rash. No petechiae. Neurologic: Alert & oriented x 3, No focal deficits noted. Normal gait. Psychiatric: Affect normal, Judgment normal, Mood normal. Cooperative. LAB All pertinent labs reviewed Results for orders placed or performed during the hospital encounter of 06/05/17 Urinalysis-UC if Indicated Result Value Ref Range Color, UA Red (!) Colorless, Yellow, Straw, Light Yellow Clarity, UA Cloudy (!) Clear Glucose, UA Negative Negative Bilirubin, UA Negative Negative Ketones, UA Negative Negative Specific [place], UA 1.017 1.001 - 1.030 Blood, UA Moderate (!) Negative pH, UA 6.0 4.5 - 8.0 Protein, UA 30 mg/dL (!) Negative mg/dL Urobilinogen, UA <2.0 E.U./dL <2.0 E.U./dL, 2.0 E.U./dL Nitrite, UA Negative Negative Leukocytes, UA Moderate (!) Negative Bacteria, UA Moderate (!) None Seen hpf RBC, UA 25-50 (!) None Seen, 0-2 hpf WBC, UA 10-25 (!) None Seen, 0-5 hpf Squam Epithel, UA 25-50 (!) None Seen, 0-5 lpf Mucus, UA Few (!) None Seen lpf HM2 (CBC W/O DIFF) Result Value Ref Range WBC 11.0 4.0 - 11.0 thou/uL RBC 4.37 3.80 - 5.40 mill/uL Hemoglobin 13.4 12.0 - 16.0 g/dL Hematocrit 39.7 35.0 - 47.0 % MCV 91 80 - 100 fL MCH 30.7 27.0 - 34.0 pg MCHC 33.8 32.0 - 36.0 g/dL RDW 12.5 11.0 - 14.5 % Platelets 209 140 - 440 thou/uL MPV 11.2 8.5 - 12.5 fL Basic Metabolic Panel Result Value Ref Range Sodium 140 136 - 145 mmol/L Potassium 4.6 3.5 - 5.0 mmol/L Chloride 101 98 - 107 mmol/L CO2 26 22 - 31 mmol/L Anion Gap, Calculation 13 5 - 18 mmol/L Glucose 234 (H) 70 - 125 mg/dL Calcium 10.6 (H) 8.5 - 10.5 mg/dL BUN 24 (H) 8 - 22 mg/dL Creatinine 1.30 (H) 0.60 - 1.10 mg/dL GFR MDRD Af Amer 50 (L) >60 mL/min/1.73m2 GFR MDRD Non Af Amer 41 (L) >60 mL/min/1.73m2 Hepatic Profile Result Value Ref Range Bilirubin, Total 1.0 0.0 - 1.0 mg/dL Bilirubin, Direct 0.3 <=0.5 mg/dL Protein, Total 7.9 6.0 - 8.0 g/dL Albumin 3.7 3.5 - 5.0 g/dL Alkaline Phosphatase 80 45 - 120 U/L AST 23 0 - 40 U/L ALT 22 0 - 45 U/L Lipase Result Value Ref Range Lipase 27 0 - 52 U/L C-Reactive Protein Result Value Ref Range CRP 0.2 0.0 - 0.8 mg/dL No results found for: [facility] Reviewed all pertinent imaging Please see official radiology report. Ct Abdomen Pelvis Without Oral Without Iv Contrast Result Date: 06/05/2017 CT ABDOMEN PELVIS WO ORAL WO IV CONTRAST 06/05/2017 7:34 PM INDICATION: right flank pain TECHNIQUE: Routine CT abdomen and pelvis without oral or IV contrast. Multiplanar reformation images (MPR). Dose reduction techniques were used. COMPARISON: CT abdomen and pelvis 04/21/2017 FINDINGS: LUNG BASES: Negative. Coronary artery calcification ABDOMEN: 2 mm stone distal right ureter near the ureterovesical junction on image 122 of series 2. This results in slight dilatation of the right ureter and mild hydronephrosis. Additional 1 mm calyceal tip stone lower pole right kidney. Cyst lower pole left kidney measuring 6.3 x 4.9 cm. The liver, spleen, pancreas, adrenal glands, and gallbladder are unremarkable. No adenopathy. Atherosclerotic plaque at the origins of both renal arteries. There is also arterialplaque in the right renal hilum. PELVIS: Extensive diverticulosis throughout the colon. No evidence for diverticulitis. No evidence for bowel obstruction. No ascites or adenopathy. Normal appendix. MUSCULOSKELETAL: Fusion L4 and L5 vertebral bodies. Degenerative disc disease L5 interspace. CONCLUSION: 1. 2 mm obstructing stone distal right ureter resulting in mild hydronephrosis. 2. Extensive colonic diverticulosis. 3. Left renal cyst. PROCEDURES: none ED COURSE & MEDICAL DECISION MAKING 8:39 PM The patient is aware of all of her results. Exam is consistent with the CT scan showing a kidney stone. Plan at this time is discharge home with prescriptions for Levaquin, Zofran, oxycodone, and ibuprofen. Will hold her Celebrex and switch the ibuprofen for couple of days. She will follow-up with a kidney stone [place]. She states that she last saw a urologist many many years ago and would [facility] at [facility]. Does not appear toxic. I do not think she requires any further laboratory evaluation or radiology imaging at this time. I do not think that this represents ACS, PE, ruptured AAA, aortic dissection, bowel obstruction, bowel ischemia, cholecystitis, pancreatitis, appendicitis, diverticulitis, pyelonephritis, incarcerated or strangulated hernia, ovarian torsion,PID, ectopic , viscus perforation, perforated GI ulcer, or other such etiologies at this time. The patient is aware of all of their results and agrees with the plan for discharge. They understand what to watch for, when to return to the ER, and all of their questions have been answered. CONSULTANTS: [facility]erred to [facility] MEDICATIONS GIVEN IN THE EMERGENCY: Medications sodium chloride 0.9% (0 mL/hr Intravenous Stopped 06/05/172038) ketorolac injection 15 mg (TORADOL) (15 mg Intravenous Given 06/05/171911) ondansetron injection 4 mg (ZOFRAN) (4 mg Intravenous Given 06/05/171912) dimenhyDRINATE chewable tablet 50 mg (DRAMAMINE) (50 mg Oral Given 06/05/171913) PRESCRIPTIONS PROVIDED: New Prescriptions DIMENHYDRINATE (DRAMAMINE) 50 MG TABLET Take 1 tablet (50 mg total) by mouth at bedtime as needed. IBUPROFEN (ADVIL,MOTRIN) 200 MG TABLET Take 2 tablets (400 mg total) by mouth every 8 (eight) hoursas needed for pain (kidney stone pain). LEVOFLOXACIN (LEVAQUIN) 500 MG TABLET Take 1 tablet (500 mg total) by mouth daily for 10 days. ONDANSETRON (ZOFRAN ODT) 4 MG DISINTEGRATING TABLET Take 1 tablet (4 mg total) by mouth every 8 (eight) hours as needed for nausea. OXYCODONE-ACETAMINOPHEN (PERCOCET) 5-325 MG PER TABLET Take 1-2 tablets by mouth every 6 (six) hours as needed for pain (Do not drive or mix with alcohol). 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 Ureteral stone 2. Ureteral colic 3. Flank pain, acute 4. Flank pain I, Dr. Shantell MD, personally performed the services described in this documentation, as scribed byTay Malcolm in my presence, and it is both accurate and complete. Cherise Stinson MD 06/05/172039 documented in this encounter Plan of Treatment Not on filedocumented as of this encounter Procedures Procedure Name Priority Date/Time Associated Diagnosis Comme nts CT ABDOMEN PELVIS Routine 06/05/2017 7:34 PM Resu lts for this W/O CONTRAST CDT procedure are i n the results section. documented in this encounter Results CT Abdomen Pelvis w/o Contrast (06/05/2017 7:34 PM CDT) Anatomical Region Laterality Modality Abdomen/Pelvis, SUBRAD CT BODY, UMP CT ABDOMEN PELVIS, Computed Tomography RAD CT Specimen (Source) Anatomical Location Collection Method / Collectio n Time Received Time / Laterality Volume Impressions 06/05/2017 7:55 PM CDT CONCLUSION: 1. ??2 mm obstructing stone distal right ureter resulting in mild hydronephrosis. 2. ??Extensive colonic diverticulosis. 3. ??Left renal cyst. Narrative 06/05/2017 7:[address] ABDOMEN PELVIS WO ORAL WO IV CONTRAST 06/05/2017 7:34 PM INDICATION: right flank pain TECHNIQUE: Routine CT abdomen and pelvis without oral or IV contrast. Multiplanar reformation images (MPR). Dose reduction techniques were used. COMPARISON: CT abdomen and pelvis 017 FINDINGS: LUNG BASES: Negative. Coronary artery ca lcification ABDOMEN: 2 mm stone distal right ureter near the ureterovesical junction on image 122 of series 2. This results in slight dilatation of the right ureter and mild hydronephrosis. Additional 1 mm calyceal tip stone lower pole right kidney. Cyst lower pole left kidney measuring 6.3 x 4.9 cm. The liver, spleen, pancreas, adrenal glands, and gallbladder are unremarkable. No adenopathy. Atherosclerotic plaque at the origins of both renal arteries. There is also arterial plaque in the right renal hilum. PELVIS: Extensive diverticulosis through out the colon. No evidence for diverticulitis. No evidence for bowel obstruction. No ascites or adenopathy. Normal appendix. MUSCULOSKELETAL: Fusion L4 and L5 verteb ral bodies. Degenerative disc disease L5 interspace. Procedure Note Juan Melara MD - 01/06/2021Formattin g of this note might be different from the original. CT ABDOMEN PELVIS WO ORAL WO IV CONTRAST 06/05/2017 7:34 PM INDICATION: right flank pain TECHNIQUE: Routine CT abdomen and pelvis without oral or IV contrast. Multiplanar reformation images (MPR). Dose reduction techniques were used. COMPARISON: CT abdomen and pelvis 017 FINDINGS: LUNG BASES: Negative. Coronary artery ca lcification ABDOMEN: 2 mm stone distal right ureter near the ureterovesical junction on image 122 of series 2. This results in slight dilatation of the right ureter and mild hydronephrosis. Additional 1 mm calyceal tip stone lower pole right kidney. Cyst lower pole left kidney measuring 6.3 x 4.9 cm. The liver, spleen, pancreas, adrenal glands, and gallbladder are unremarkable. No adenopathy. Atherosclerotic plaque at the origins of both renal arteries. There is also arterial plaque in the right renal hilum. PELVIS: Extensive diverticulosis through out the colon. No evidence for diverticulitis. No evidence for bowel obstruction. No ascites or adenopathy. Normal appendix. MUSCULOSKELETAL: Fusion L4 and L5 verteb ral bodies. Degenerative disc disease L5 interspace. IMPRESSION: CONCLUSION: 1. 2 mm obstructing stone distal right u reter resulting in mild hydronephrosis. 2. Extensive colonic diverticulosis. 3. Left renal cyst. Cherise Stinson MD IMG CT ORDERABLES documented in this encounter Visit Diagnoses Diagnosis Ureteral stone Calculus of ureter Ureteral colic Renal colic Flank pain, acute Abdominal pain, unspecified site Flank pain Abdominal pain, unspecified site documented in this encounter Care Teams Telephone Information Supervisor Relationship Specialty Start Date End Date Elyse Paredes MD PCP - General Family Practice 12/22/13 04/21/22 [address] [place] [address] documented as of this encounter
--- OUTSIDE RECORDS SUMMARY | 2022-07-02 13:45 | XMS_ITS | Encounter Summary ---
:1950 Author Organization [place] Address [address] [place] [id number] Care Team Providers Name Role Phone Elyse Paredes MD Primary Care Provider Reason for Visit Reason Comments Pt Ed Cor Angio 05/12 Encounter Details Date Type Department Care Team Description 04/16/2017 [facility] Provider, [facility] Heart [address] [phone] Social History Tobacco Use Types Packs/Day Years Used Date Smoking Tobacco: Never Assessed Sex Assigned at Date Recorded Not on file documented as of this encounter Progress Notes Tomas Pino RN - 04/16/2017 3:06 PM CDT [facility] RN Pre-Procedure Education Note Procedure: Cor Angio poss pCI With Dr. 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 patel PCP: Elyse Paredes MD H&P completed by: Dr Steele 04/16/17 Previous Cath Report: no Bypass grafts: No Labs within 7 days: am of procedure Renal Issues: GFR 55, creat 1.09 Diabetic: Yes Does patient have contrast/IV dye allergy: no Patient Education Explained indications/risks for diagnostic evaluation, including one or more of the following: coronary angiogram Explained indications/risks for therapeutic interventions, including one or more of the following: PTCA and stent. These risks are in addition to baseline risks associated with a Diagnostic Evaluation. Patient state understanding of procedure and risks and agrees to proceed Additional education comment: Pt was given procedure letter and written education material. This information was reviewed with the patient. No further questions at this time. Pre-procedure instructions Patient instructed to be NPO after midnight. Patient instructed to arrange for transportation home following procedure No driving for 24 hours post procedure Depending on the results of the test, provider may decide to keep patient overnight in the hospital for further evaluation. Reviewed lifting restrictions Pre-procedure medication instructions medication instructions: am of procedure take only asa and losartan Current Outpatient Prescriptions Medication Sig Dispense Refill ??? aspirin 81 MG EC tablet Take 81 mg by mouth every other day. ??? BD INSULIN PEN NEEDLE UF SHORT 31 gauge x 5/16 Ndle USE WITH TOUJEO AND VICTOZA BID 3 ??? celecoxib (CELEBREX) 200 MG capsule Take 1 capsule by mouth daily. ??? CRESTOR 10 mg tablet Take 1 tablet by mouth daily. ??? HUMALOG MIX 75-25 KWIKPEN 100 unit/mL (75-25) pen 6-10 units 3 times daily 2 ??? LANTUS SOLOSTAR 100 unit/mL (3 mL) pen 60 Units every morning. ??? losartan (COZAAR) 50 MG tablet Take 1 tablet by mouth daily. ??? metFORMIN (GLUCOPHAGE) 500 MG tablet 2 tab AM, 3 tab PM ??? sertraline (ZOLOFT) 100 MG tablet Take 50 mg by mouth daily. No current facility-administered medications for this visit. Allergies Allergen Reactions ??? Lisinopril Cough ??? Erythromycin Base Rash Tomas Pino RN documented in this encounter Plan of Treatment Not on filedocumented as of this encounter Visit Diagnoses Not on filedocumented in this encounter Care Teams Supervisor Body Assembly Relationship Specialty Start Date End Date Elyse Paredes MD PCP - General Family Practice 12/22/13 04/21/22 [address] [place] [address] documented as of this encounter
--- OUTSIDE RECORDS SUMMARY | 2022-07-02 13:45 | XMS_ITS | Encounter Summary ---
:1950 Author Organization [place] Address [address] [place] [id number] Care Team Providers Name Role Phone Elyse Paredes MD Primary Care Provider Reason for Visit Reason Comments Other Encounter Details Date Type Department Care Team Description 05/12/2017 Communication - [facility] Michelle, [place], Other [facility] MD [address] [facility] [address] [place] [address] Social History Tobacco Use Types Packs/Day Years Used Date Smoking Tobacco: Never Assessed Sex Assigned at Date Recorded Not on file documented as of this encounter Plan of Treatment Not on filedocumented as of this encounter Visit Diagnoses Diagnosis Coronary artery disease involving [place] coronary artery of [place] heart, angina presence unspecified documented in this encounter Care Teams Railway Engineer Relationship Specialty Start Date End Date Elyse Paredes MD PCP - General Family Practice 12/22/13 04/21/22 [address] [place] [address] documented as of this encounter
--- OUTSIDE RECORDS SUMMARY | 2022-07-02 13:45 | XMS_ITS | Encounter Summary ---
:1950 Author Organization [place] Address [address] [place] [address] Care Team Providers Name Role Phone Elyse Paredes MD Primary Care Provider Reason for Visit Reason Comments Consult Encounter Details Date Type Department Care Team Description 05/27/2017 Office Visit - [facility] Clem Rossi Aorti c stenosis [facility] Heart [facility] dorota Starr MD [address] [place] [phone] Social History Tobacco Use Types Packs/Day Years [...] - - Weight 131.1 kg (289 lb) 05/27/2017 3:04 PM CDT Height 157.5 cm (5' 2) 05/27/2017 3:04 PM CDT Body Mass Index 52.86 05/27/2017 3:04 PM CDT documented in this encounter Progress Notes Clem Rossi MD - 05/27/2017 3:30 PM CDT Cardiothoracic Surgery Consult Date of Service: 05/27/2017 REFERRING DOGMAN/WOMAN: Dr. Martinez REASON FOR CONSULTATION: Severe aortic stenosis - evaluate for TAVR HISTORY OF PRESENT ILLNESS: Marci Diaz is a 67 y.o. female who presents with severe symptomatic aortic stenosis. Ms. Diaz is amorbidly obese woman with severe difficulty breathing made worse with activity and lying flat. She denies chest pain, back pain, abdominal pain, pain in her extremities, syncope or presyncope. Echocardiography demonstrates: severe aortic stenosis. PAST MEDICAL HISTORY: Past Medical History: Diagnosis Date ??? Bicuspid aortic valve ??? COPD (chronic obstructive pulmonary disease) ??? Depression ??? Diabetes mellitus insulin ??? DJD (degenerative joint disease) ??? Dyspnea ??? Hyperlipidemia ??? Hypertension ??? Morbid obesity ??? Nephrolithiasis ??? DEDE on CPAP ??? Severe aortic stenosis PAST SURGICAL HISTORY: Past Surgical History: Procedure Laterality Date ??? CARDIAC CATHETERIZATION 05/12/2017 ??? CV CORONARY ANGIOGRAM N/A 05/12/2017 Procedure: Coronary Angiogram; Surgeon: Ankush Martinez MD; Location: [facility] Card Clothier; Service: ??? knee replacements Bilateral ALLERGIES: Allergies Allergen Reactions ??? Lisinopril Cough ??? Erythromycin Base Rash CURRENT MEDICATIONS: Current Outpatient Prescriptions on File Prior to Visit Medication Sig Dispense Refill ??? aspirin 81 [...] by mouth daily. No current facility-administered medications on file prior to visit. FAMILY HISTORY: No family history on file. The family history was reviewed and is not pertinent to the patient's disease/illness SOCIAL HISTORY: Social History Social History ??? Marital status: [...] ??? Not on file Social History Narrative REVIEW OF SYSTEMS: Review of Systems - A complete 10 point review of systems was obtained and is negative other than the above stated complaints PHYSICAL EXAMINATION: Vitals: BP 120/74 (Patient Site: Left Arm, Patient Position: Sitting, Cuff Size: Adult Large) Pulse 72 Resp 16 Ht 5' 2 (1.575 m) Wt (!) 289 lb (131.1 kg) BMI 52.86 kg/m2 GENERAL: Pleasant elderly female appears stated age. HEENT: Atraumatic, normocephalic, pupils equal and reactive, cranial nerves II through XII intact. NECK: Supple, trachea midline, no thyromegaly, no lymphadenopathy. CARDIOVASCULAR: Regular rate and rhythm. RESPIRATIONS: Clear to auscultation bilaterally. ABDOMEN: Morbidly obese. Soft, nontender, not distended. EXTREMITIES: Motor, sensation, pulses intact in all 4 extremities. No varicosities. No wounds. NEUROLOGIC: No focal deficits. PSYCHIATRIC: Alert and oriented ??3. No hallucinations. No suicidal or homicidal ideations. LABORATORY STUDIES: Lab Results Component Value Date WBC 8.4 05/12/2017 HGB 12.3 05/12/2017 HCT 35.9 05/12/2017 MCV 90 05/12/2017 PLT 179 05/12/2017 Lab Results Component Value Date CREATININE 1.14 (H) 05/12/2017 BUN 23 (H) 05/12/2017 NA 138 05/12/2017 K 4.5 05/12/2017 CL 104 05/12/2017 CO2 22 05/12/2017 Lab Results Component Value Date HGBA1C 7.5 (H) 01/08/2010 EKG: normal EKG, normal sinus rhythm, unchanged from previous tracings. CARDIAC CATHETERIZATION: This study was personally reviewed by me GRACE minimal dz LAD 75% mid stenosis LCx mild dz RCA large, dominant, mild dz ?? Successful PCI mid LAD with 3x20 Synergy JEFFERSON 0% residual, Umer 3 flow pre and post TRANSTHORACIC ECHOCARDIOGRAM: This study was personally reviewed by me ?? The estimated left ventricular ejection fraction is 65%. This represents a normal ejection fraction. Mild hypertrophy noted. ?? There is global thickening of the aortic valve. There is calcification of the aortic valve present. Severe stenosis. ?? When compared to the previous study dated 12/02/2016, aortic valve gradient has increased. STS Risk Calculation Risk of Mortality: 2.4% Risk of Morbidity or Mortality: 15.6% Risk of Stroke: 0.9% IMPRESSION: Marci Diaz is a 67 y.o. female with severe aortic stenosis - recommend transcatheter aortic valve replacement - I discussed the technical details of the open surgical AVR with the patient, as well as the expected postoperative course and recovery. The risks include but are not limited to bleeding, infection, stroke, heart or graft failure, dysrhythmia, respiratory failure, kidney or liver injury, bowel or limb ischemia, and . - The calculated STS risk for mortality with isolated aortic valve replacement is 2.4% and the calculated risk of major morbidity or mortality is 15.6% - making her low-intermediate risk for surgery. - Given her extreme obesity and prior issues with anesthesia I feel she will do poorly with post-operative recovery and sternal wound healing. - She understands that there is a risk of bleeding, infection, stroke, heart block requiring permanent pacemaker, cardiac perforation, aortic root rupture and aortic dissection, in addition to risk of . She wishes to proceed with scheduling for TAVR. PLAN: 1) Recommend TAVR 2) Please call with questions or concerns. A total of 60 minutes time was spent in review of the chart and [id number] time with the patient. Thank you very much for this referral. Clem Rossi 05/27/2017 4:07 PM Cardiothoracic Surgery [phone] documented in this encounter Plan of Treatment Not on filedocumented as of this encounter Visit Diagnoses Diagnosis Aortic stenosis Aortic valve disorders documented in this encounter Care Teams Computer Numerical Control Programmer Relationship Specialty Start Date End Date Elyse Paredes MD PCP - General [facility] 12/22/13 04/21/[address] [place] [address] documented as of this encounter
--- OUTSIDE RECORDS SUMMARY | 2022-07-02 13:45 | XMS_ITS | Encounter Summary ---
:1950 Author Organization [place] Address [address] [place] [address] Care Team Providers Name Role Phone Elyse Paredes MD Primary Care Provider Reason for Visit Reason Comments Other Plan for TAVR Encounter Details Date Type Department Care Team Description 05/27/2017 [facility] Provider, Severe aor [facility] Heart [address] [phone] Social History Tobacco Use Types Packs/Day Years Used Date Smoking Tobacco: Never Assessed Sex Assigned at Date Recorded Not on file documented as of this encounter Progress Notes Tomas Pino RN - 05/27/2017 2:50 PM CDT Will schedule patient for PFT She will contact PCP for H/P Pre-TAVR visit on Jul 05 TAVR on Jul 06 No further questions or concerns. Tomas Pino RN 05/27/17 4:07 PM documented in this encounter Plan of Treatment Not on filedocumented as of this encounter Visit Diagnoses Diagnosis Severe aortic stenosis Aortic valve disorders documented in this encounter Care Teams Bilingual Medical Receptionist Relationship Specialty Start Date End Date Elyse Paredes MD PCP - General Family Practice 12/22/13 04/21/22 [address] [place] [address] documented as of this encounter
--- OUTSIDE RECORDS SUMMARY | 2022-07-02 13:45 | XMS_ITS | Encounter Summary ---
:1950 Author Organization [place] Address [address] [place] [address]. [place] [address] Care Team Providers Name Role Phone Elyse Paredes MD Primary Care Provider Encounter Details Date Type Department Care Team Description 05/13/2017 [facility] Vamshi Quiles [facility] Faith MD [address], [address] [place] [address] [phone] Social History Tobacco Use Types Packs/Day Years Used Date Smoking Tobacco: Never Assessed Sex Assigned at Date Recorded Not on file documented as of this encounter Plan of Treatment Not on filedocumented as of this encounter Visit Diagnoses Not on filedocumented in this encounter Care Teams Lollypop Machine Operator Relationship Specialty Start Date End Date Elyse Paredes MD PCP - General Family Practice 12/22/13 04/21/22 [address] [place] [address] documented as of this encounter
--- OUTSIDE RECORDS SUMMARY | 2022-07-02 13:45 | XMS_ITS | Encounter Summary ---
:1950 Author Organization [place] Address [address] [place] [address] Care Team Providers Name Role Phone Elyse Paredes MD Primary Care Provider Encounter Details Date Type Department Care Team Description 06/18/2017 Communication - [facility] Provider, [facility] Heart [address] [phone] Social History Tobacco Use Types Packs/Day Years Used Date Smoking Tobacco: Never Assessed Sex Assigned at Date Recorded Not on file documented as of this encounter Plan of Treatment Not on filedocumented as of this encounter Visit Diagnoses Not on filedocumented in this encounter Care Teams Viscosity Inspector Relationship Specialty Start Date End Date Elyse Paredes MD PCP - General Family Practice 12/22/13 04/21/22 [address] [place], [place] [id number] documented as of this encounter
--- OUTSIDE RECORDS SUMMARY | 2022-07-02 13:45 | XMS_ITS | Encounter Summary ---
:1950 Author Organization [place] Address [address] [place] [address] Care Team Providers Name Role Phone Elyse Paredes MD Primary Care Provider Encounter Details Date Type Department Care Team Description 06/07/2017 [facility] Ahmed, Severe aor [facility] [address] [place] [address] [phone] Social History Tobacco Use Types Packs/Day Years Used Date Smoking Tobacco: Never Assessed Sex Assigned at Date Recorded Not on file documented as of this encounter Plan of Treatment Not on filedocumented as of this encounter Visit Diagnoses Diagnosis Severe aortic stenosis Aortic valve disorders documented in this encounter Care Teams Angular Developer Relationship Specialty Start Date End Date Elyse Paredes MD PCP - General Family Practice 12/22/13 04/21/22 [address] [place] [address] documented as of this encounter
--- OUTSIDE RECORDS SUMMARY | 2022-07-02 13:45 | XMS_ITS | Encounter Summary ---
:1950 Author Organization [place] Address [address] [place] [address] Care Team Providers Name Role Phone Elyse Paredes MD Primary Care Provider Reason for Visit Reason Comments Other Encounter Details Date Type Department Care Team Description 06/07/2017 Office Visit - [facility] Clem Johnsu marie of ureter; [facility] MYRA Bello MD Hydronephrosis with urinary obstruction due to ureteral calculus; [address], [address] Calculus of kidney; [address] [place], [place] [address] [phone] (Work) Social History Tobacco Use Types Packs/Day Years Used Date Smoking Tobacco: Never Assessed Sex Assigned at Date Recorded Not on file documented as of this encounter Progress Notes Clem Johns MD - 06/07/2017 2:00 PM CST Assessment/Plan: Diagnoses and all orders for this visit: Calculus of ureter - CT Abdomen Pelvis Without Oral Without IV Contrast; Future; Expected date: 06/21/17 - HYDROmorphone (DILAUDID) 2 MG tablet; Take 1-2 tablets (2-4 mg total) by mouth every 4 (four) hours as needed for pain. Dispense: 20 tablet; Refill: 0 - Patient Stated Goal: Pass my stone Hydronephrosis with urinary obstruction due to ureteral calculus Calculus of kidney Urinary tract stones - Urinalysis Macroscopic Stone Management Plan [facility] Stone Management 06/07/2017 Urinary Tract Infection No suspicion of infection Renal Colic Asymptomatic at this time Renal Failure No suspicion of renal failure Current CT date 06/05/2017 Right sided stones? Yes R Number of ureteral stones 1 R GSD of ureteral stones 3 R Location of ureteral stone Distal R Number of kidney stones 1 R GSD of kidney stones < 2 R Hydronephrosis Mild R Stone Event New event Diagnosis date 06/05/2017 Initial location of primary symptomatic stone Distal Initial GSD of primary symptomatic stone 3 Left sided stones? Yes L Number of ureteral stones No ureteral stones L Number of kidney stones 1 L GSD of kidney stones < 2 L Hydronephrosis None L Stone Event No current event L Current Plan Observe Observe rationale Limited stone burden with good prognosis for spontaneous passage Subjective: HPI Ms. Marci Diaz is a 67 y.o. female presenting to the [facility] following recent [facility] ED visit for urolithiasis. She is a remotely recurrent calcium oxalate stone former who has required stone clearance procedures. She has not previously participated in stone risk evaluation. She has identified modifiable stone risks including: type II diabetes. She has no identified non-modifiable stone risk factors. Primary symptom occurring 2 days ago was acute onset right flank pain. The pain was constant, sharp,and radiated to the right abdomen. At its worst, it was 9/10 with slight improvement following episodes of emesis. No associated aggravating factors. Significant associated symptoms at presentation included: nausea and vomiting. She is asymptomatic at present. She denies symptoms of fever, chills, flank pain, nausea, vomiting, urinary frequency and dysuria. Of note, her PMH is significant for CAD s/p stent and severe, symptomatic . She has recently been evaluated by Cardiothoracic Surgery and recommended for TAVR, scheduled 07/06/17. CT scan from 06/05/17 is personally reviewed and demonstrates a mildly obstructing 3 mm right distal ureteral calculus. Additional < 2 mm right lower pole renal calculus. There is a punctate left lower lower pole papillary tip calcification. Left renal cyst. Significant labs from presentation include moderate hematuria, mild pyuria, negative nitrite, moderate bacteria, no growth on urine culture, normal WBC, normal C reactive protein, slightly elevated creatinine and normal potassium. PLAN 67 yo diabetic F with hx of nephrolithiasis presenting following recently diagnosed right distal urolithiasis. Additional, small renal calculi. Will proceed with medical expulsive therapy. Risks and benefits were detailed of medical expulsive therapy including probability of stone passage, recurrent renal colic, and requirement of emergency medical and/or surgical care and further imaging. Patient verbalized understanding. Patient agrees withplan as discussed. She will return in 2 weeks with low dose CT scan. For symptom control, she was provided dilaudid in place of percocet. She has ondansetron. She can avoid initiating prescribed levaquin, given no active infection. Over the counter symptom control medication of Tylenol 1 g TID and Dramamine 50 mg QHS were recommended. Patient also seen and examined by Shelly Adrian PA-C ROS Review of Systems A 12 point comprehensive review of systems is negative except for HPI Past Medical History: Diagnosis Date ??? Bicuspid [...] Coronary Angiogram; Surgeon: Ankush Martinez MD; Location: [facility] Supervisor; Service: ??? knee replacements Bilateral Current Outpatient Prescriptions Medication Sig Dispense Refill ??? insulin aspart (NOVOLOG) 100 unit/mL injection Inject 6-10 Units under the skin 3 (three) times a day before meals. ??? LANTUS SOLOSTAR 100 unit/mL (3 mL) pen 30 Units 2 (two) times a day. ??? aspirin 81 mg chewable tablet Chew [...] Take 1 tablet by mouth daily. ??? dimenhyDRINATE (DRAMAMINE) 50 MG tablet Take 1 tablet (50 mg total) by mouth at bedtime as needed. 10 tablet 0 ??? ibuprofen (ADVIL,MOTRIN) 200 MG tablet Take 2 tablets (400 mg total) by mouth every 8 (eight) hours as needed for pain (kidney stone pain). 20 tablet 0 ??? levoFLOXacin (LEVAQUIN) 500 MG tablet Take 1 tablet (500 mg total) by mouth daily for 10 days. 10 tablet 0 ??? losartan (COZAAR) 50 MG tablet Take 1 tablet by mouth daily. ??? ondansetron (ZOFRAN ODT) 4 MG disintegrating tablet Take 1 tablet (4 mg total) by mouth every 8 (eight) hours as needed for nausea. 15 tablet 0 ??? oxyCODONE-acetaminophen (PERCOCET) 5-325 mg per tablet Take 1-2 tablets by mouth every 6 (six) hours as needed for pain (Do not drive or mix with alcohol). 15 tablet 0 ??? sertraline (ZOLOFT) 100 MG tablet Take [...] ??? Not on file Social History Narrative No family history on file. Objective: Physical Exam Vitals: 06/07/17 1359 BP: 154/75 Pulse: 90 Temp: 98.2 ??F (36.8 ??C) General - well developed, well nourished, appropriate for age. Appears no distress at this time Heart - regular rate and rhythm, 2/6 systolic murmur Respiratory - normal effort, clear to auscultation, good air entry without adventitious noises Abdomen - obese soft, non-tender, no hepatosplenomegaly, no masses. - no flank tenderness, no suprapubic tenderness, kidney and bladder non-palpable MSK - normal spinal curvature. no spinal tenderness. normal gait. muscular strength intact. Neurology - cranial nerves II-XII grossly intact, normal sensation, no unsteadiness Skin - intact, no bruising, no gouty tophi Psych - oriented to time, place, and [...] Final 06/05/2017 6.0 4.5 - 8.0 Final and Acute Labs CBC WBC Date Value Ref Range Status 06/05/2017 11.0 4.0 - 11.0 thou/uL Final 05/12/2017 8.4 4.0 - 11.0 thou/uL Final 01/07/2010 7.1 4.0 - 11.0 thou/uL Final Hemoglobin Date Value Ref Range Status 06/05/2017 13.4 12.0 - 16.0 g/dL Final 05/12/2017 12.3 12.0 - 16.0 g/dL Final 01/09/2010 10.0 (L) 12.0 - 16.0 g/dL Final Platelets Date Value Ref Range Status 06/05/2017 209 140 - 440 thou/uL Final 05/12/2017 179 140 - 440 thou/uL Final 01/07/2010 209 140 - 440 thou/uL Final , C Reactive Protein CRP Date Value Ref Range Status 06/05/2017 0.2 0.0 - 0.8 mg/dL Final , Renal Panel [facility] Creatinine Date Value Ref Range Status 06/05/2017 1.30 (H) 0.60 - 1.10 mg/dL Final 05/12/2017 1.14 (H) 0.60 - 1.10 mg/dL Final 04/16/2017 1.02 0.60 - 1.10 mg/dL Final Potassium Date Value Ref Range Status 06/05/2017 4.6 3.5 - 5.0 mmol/L Final 05/12/2017 4.5 3.5 - 5.0 mmol/L Final 04/16/2017 4.6 3.5 - 5.0 mmol/L Final Calcium Date Value Ref Range Status 06/05/2017 10.6 (H) 8.5 - 10.5 mg/dL Final 05/12/2017 9.7 8.5 - 10.5 mg/dL Final 04/16/2017 10.1 8.5 - 10.5 mg/dL Final and Urine Culture Culture Date Value Ref Range Status 06/05/2017 No Growth Final USION PRESS ADJUSTER documented in this encounter Plan of Treatment Not on filedocumented as of this encounter Visit Diagnoses Diagnosis Calculus of ureter Hydronephrosis with urinary obstruction due to ureteral calculus Calculus of kidney Urinary tract stones Urinary calculus, unspecified documented in this encounter Care Teams Aerographer Relationship Specialty Start Date End Date Elyse Paredes MD PCP - General Family Practice 12/22/13 04/21/22 [address] [place] [address] documented as of this encounter
--- OUTSIDE RECORDS SUMMARY | 2022-07-02 13:45 | XMS_ITS | Encounter Summary ---
:1950 Author Organization [place] Address [address] [place] [address] Care Team Providers Name Role Phone Elyse Paredes MD Primary Care Provider Encounter Details Date Type Department Care Team Description 06/09/2017 Hospital Encounter [facility] Suzanna Martinez re aortic [facility] MD Ankush stenosis Respiratory [address] [place] [address] [phone] Social History Tobacco Use Types Packs/Day Years [...] documented as of this encounter Progress Notes Leena Paz - 06/09/2017 2:31 PM CST Cpft with pre and post spirometry done using albuterol 2.5 mg neb. Ats standards met, results scanned to patients chart. TED CIRCUIT BOARD PANELS TRIMMER documented in this encounter Plan of Treatment Not on filedocumented as of this encounter Procedures Procedure Name Priority Date/Time Associated Diagnosis Comme nts PFT COMPLETE - HE Routine 06/09/2017 2:31 PM Severe aortic Res ults for this PRINTED CIRCUIT BOARD PANELS TRIMMER stenosis procedure are i n the results section. PULMONARY FUNCTION 06/09/2017 TEST - HIM SCAN documented in this encounter Results PFT Complete - HE (06/09/2017 2:31 PM PRINTED CIRCUIT BOARD PANELS TRIMMER) Specimen (Source) Anatomical Location Collection Method / Collectio n Time Received Time / Laterality Volume Narrative HE RADIANT CONVERSION - 06/10/2017 1:37 PM PRINTED CIRCUIT BOARD PANELS TRIMMER FEV1/FVC is 0.85 and is normal. FEV1 is 86% predicted and is normal. FVC is 80% predicted and normal. There was no significant change in ina metry after a single inhaled dose of bronchodilator. TLC is 98% predicted and is normal. RV is 110% predicted and is normal. DLCO is 89% predicted and is normal when it is corrected for hemoglobin. Impression: ??Full Pulmonary Function Te st is normal. Clem Ramirez MD Pulmonary and Critical Care Medicine [facility] [place] Office [phone] Procedure Note Clem Ramirez MD - 02/14/2021Fo rmatting of this note might be different from the original. FEV1/FVC is 0.85 and is normal. FEV1 is 86% predicted and is normal. FVC is 80% predicted and normal. There was no significant change in ina metry after a single inhaled dose of bronchodilator. TLC is 98% predicted and is normal. RV is 110% predicted and is normal. DLCO is 89% predicted and is normal when it is corrected for hemoglobin. Impression: Full Pulmonary Function Test is normal. Clem Ramirez MD Pulmonary and Critical Care Medicine [facility] Office [phone] Ankush Martinez MD PFT ORDERABLES Performing Organization Address City/State/ZIP Code Phon e Number HE RADIANT CONVERSION PULMONARY FUNCTION TEST - HIM SCAN (06/09/2017) Narrative This result has an attachment that is no t available. Historical Provider PFT ORDERABLES documented in this encounter Visit Diagnoses Diagnosis Severe aortic stenosis Aortic valve disorders documented in this encounter Care Teams Ukrainian Folk Arts Instructor Relationship Specialty Start Date End Date Elyse Paredes MD PCP - General Family Practice 12/22/13 04/21/22 [address] [place] [address] documented as of this encounter
--- OUTSIDE RECORDS SUMMARY | 2022-07-02 13:45 | XMS_ITS | Encounter Summary ---
:1950 Author Organization [place] Address [address] [place] [address] Care Team Providers Name Role Phone Elyse Paredes MD Primary Care Provider Reason for Visit Reason Comments Consult Encounter Details Date Type Department Care Team Description 05/27/2017 Office Visit - [facility] Kaushal Martinezheum at aortic [facility]. Barry MD valve stenosis [address] [place] [id number] [phone] Social History Tobacco Use Types Packs/Day Years [...] - Weight 131.1 kg (289 lb) 05/27/2017 3:01 PM CDT Height 157.5 cm (5' 2) 05/27/2017 3:01 PM CDT Body Mass Index 52.86 05/27/2017 3:01 PM CDT documented in this encounter Progress Notes Barry Martinez MD - 05/27/2017 3:30 PM CDT [facility] Heart Care Note Assessment / Plan: Ms Diaz was diagnosed earlier this year with severe aortic stenosis, from which he is becoming increasingly symptomatic, noting dyspnea on exertion with even mild activity. She has been evaluated by Dr. Steele from CT surgery, and it was felt that she may not do well with open heart surgery, given her morbid obesity and concerns about postprocedure respiratory failure. In addition she does have an STS score that would put her at intermediate risk. Given these concerns, she would be a reasonable candidate for transcatheter aortic valve replacement. Of note, she does have coronary artery disease, and underwent PCI of her proximal mid LAD recently receiving a 3.0 x 20 Synergy drug-eluting stent. The risks, benefits and alternatives of transcatheter aortic valve replacement were reviewed, and she would like to proceed. Thank you for the opportunity to participate in the care of Marci Diaz. Please do not hesitate to call with any questions or concerns regarding her cardiovascular status. Subjective: It was a pleasure to see Marci Diaz at the [facility] Heart [facility] at the request of Dr. Steele for evaluation of treatment options for severe aortic stenosis. Marci Diaz is a pleasant 67 y.o. female with known aortic stenosis that has progressed in severityover the past year. 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 She reports dyspnea with even mild activity. She does have morbid obesity, as well as COPD and obstructive sleep apnea. She has had 2 prior knee replacements and reports significant difficulty with anesthesia, and readmission for acute hypoxic respiratory failure. She had an echocardiogram performed in March 25, 2017, which showed normal left ventricular systolic function. The mean gradient across her aortic valve was 42 mmHg with an aortic valve area of 0.8 cm?? and a peak velocity of 4.4 m/s. Her dimensionless index was less than 0.25. She was seen by Dr. Steele, and given her intermediate STS risk score of 3.3% as well as concerns with recovery secondary to her morbid obesity as well as prior respiratory difficulties, it was felt that she should be considered for a transcatheter approach. Problem List: Patient Active Problem List Diagnosis ??? Aortic valvular stenosis ??? HLD (hyperlipidemia) ??? Nonrheumatic aortic valve stenosis ??? Severe aortic stenosis ??? Preop cardiovascular exam ??? CASTRO (dyspnea on exertion) ??? 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 knee replacements Bilateral Social History: [...] as noted in the HPI. Family History: Negative for premature coronary artery disease Allergies: Allergies Allergen Reactions ??? Lisinopril Cough ??? Erythromycin Base Rash Medications: Current Outpatient [...] for this visit. Objective: Vital signs: BP 120/74 (Patient Site: Left Arm, Patient Position: Sitting, Cuff Size: Adult Large) Pulse 72 Resp 16 Ht 5' 2 (1.575 m) Wt (!) 289 lb (131.1 kg) BMI 52.86 kg/m2 Physical Exam: GENERAL APPEARANCE: Alert, cooperative and in no acute distress. HEENT: No scleral icterus. No Xanthelasma. Oral mucuos membranes pink and moist. NECK: No JVD. Thyroid not visualized CHEST: clear to auscultation CARDIOVASCULAR: S1, S2 regular. 2-3/6 SOFI PULSES: Radial and posterior tibial pulses are intact and symmetric. ABDOMEN: Obese, nontender. BS+. EXTREMITIES: No cyanosis, clubbing or edema. [...] BMP: Lab Results Component Value Date CREATININE 1.14 (H) 05/12/2017 BUN 23 (H) 05/12/2017 NA 138 05/12/2017 K 4.5 05/12/2017 CL 104 05/12/2017 CO2 22 05/12/2017 ECG and Cath films independently reviewed BARRY MARTINEZ MD [facility] documented in this encounter Plan of Treatment Not on filedocumented as of this encounter Visit Diagnoses Diagnosis Nonrheumatic aortic valve stenosis Aortic valve disorders documented in this encounter Care Teams Try Out Person Relationship Specialty Start Date End Date Elyse Paredes MD PCP - General Family Practice 12/22/13 04/21/22 [address] [place] [address] documented as of this encounter
--- OUTSIDE RECORDS SUMMARY | 2022-07-02 13:45 | XMS_ITS | Encounter Summary ---
:1950 Author Organization [place] Address [address] [place] [address] Care Team Providers Name Role Phone Elyse Paredes MD Primary Care Provider Reason for Visit Reason Comments Consult Encounter Details Date Type Department Care Team Description 05/27/2017 Office Visit - [facility] Tanner Anderson PA-C [address] [place] [address] Coronary artery disease involving otoe-missouria coronary artery of otoe-missouria heart, angina presence unspecified; [facility] St. Provider, Historical Severe aortic stenosis; [place] DEDE on CPAP; [address] Type 2 diabetes mellitus without complication, with long-term current use of insulin (H); [place] [phone] Social History Tobacco Use Types Packs/Day Years [...] CDT documented in this encounter Progress Notes Ashley Anderson PA-C - 05/27/2017 3:30 PM CDT I saw Marci Diaz today in valve clinic along with Dr. Martinez and Dr. Rossi. Marci is a 67-year-old female who was sent to us by Dr. Quiles and Dr. Steele. She has a history of diabetes mellitus, coronary artery disease, aortic stenosis that has become severe, obstructive sleep apnea on CPAP, depre ssion, hypertension and osteoarthritis. Her most recent echo in March showed EF 65% with severe aortic stenosis and valve area 0.8 cm?? with mean gradient 42 mmHg. She has been experiencing increased dyspnea on exertion. She has no chest pain or dizziness. She underwent cardiac catheterization in May which showed a 75% lesion in the mid LAD and a drug-eluting stent was placed. She is essentially ready to go from a workup stand point. Please see full consult notes from Dr. Rossi and Dr. Martinez for further discussion of her case. documented in this encounter Plan of Treatment Not on filedocumented as of this encounter Visit Diagnoses Diagnosis Coronary artery disease involving otoe-missouria coronary artery of otoe-missouria heart, angina presence unspecified Severe aortic stenosis Aortic valve disorders DEDE on CPAP Obstructive sleep apnea (adult) (pediatr ic) Type 2 diabetes mellitus without complic ation, with long-term current use of insulin (H) Essential hypertension Unspecified essential hypertension documented in this encounter Care Teams Document Preparer Microfilming Relationship Specialty Start Date End Date Elyse Paredes MD PCP - General Family Practice 12/22/13 04/21/22 [address] [place] [address] documented as of this encounter
--- OUTSIDE RECORDS SUMMARY | 2022-07-02 13:45 | XMS_ITS | Encounter Summary ---
:1950 Author Organization [place] Address [address] [place] [address]. [place] [address] Care Team Providers Name Role Phone Dagmar Kang MD Unavailable Elyse Paredes MD Primary Care Provider Dagmar Kang MD Unavailable Raghu Bae MD Primary Care Provider [phone] Nicole Salazar APRN DIGITAL MEDIA ASSOCIATE Unavailable [phone] Encounter Details Date Type Department Care Team Description 04/16/2017 Records - [facility] Tracie Pino RN [address] [phone] Social History Tobacco Use Types Packs/Day Years Used Date Smoking Tobacco: Never Assessed Sex Assigned at Date Recorded Not on file documented as of this encounter Progress Notes Tomas Pino RN - 04/16/2017 2:52 PM CDT A user error has taken place: encounter opened in error, closed for administrative reasons. documented in this encounter Plan of Treatment Not on filedocumented as of this encounter Visit Diagnoses Not on filedocumented in this encounter Care Teams Hr Coordinator Relationship Specialty Start Date End Date Elyse Paredes MD PCP - General Family Practice 12/22/13 04/21/22 [address] [place], [place] [id number] Raghu Bae PCP - General Emergency Medicine 04/22/22 MD [place] [facility] [address] [place] [address] Dagmar Kang MD Assigned Heart and 02/14/21 02/27/22 [address] [facility], Vascular Provider [address] [place], [place] [phone] Dagmar Kang MD Assigned Heart and 03/21/22 04/24/22 [address] [facility], Vascular Provider [address] [place], [place] [phone] Nicole Salazar, Assigned Heart and 04/25/22 ENGINEER FIRST ASSISTANT DIGITAL MEDIA ASSOCIATE Vascular Provider [address] [facility] [address] [place], [place] [phone] documented as of this encounter
--- OUTSIDE RECORDS SUMMARY | 2022-07-02 13:45 | XMS_ITS | Encounter Summary ---
:1950 Author Organization [place] Address [address] [place] [address] Care Team Providers Name Role Phone Elyse Paredes MD Primary Care Provider Reason for Visit Reason Comments Other Severe ; referral to valve clinic Encounter Details Date Type Department Care Team Description 04/16/2017 [facility] Provider, [facility] [address] [phone] Social History Tobacco Use Types Packs/Day Years Used Date Smoking Tobacco: Never Assessed Sex Assigned at Date Recorded Not on file documented as of this encounter Progress Notes Tomas Pino RN - 04/16/2017 2:54 PM CDT Referring provider: Dr. Steele (see consult note) Serum albumin (date completed 04/16/17): 3.7 5 meter walk (date completed 04/16/17): 5.62,5.56, 5.81 Glass Artist Strength (date completed 04/16/17): 50.3,49.7, 47.0 Pereyra index (date completed 04/16/17): 6/6 final frailty score: 0/4 Preliminary STS Score: 1.4% PMH: severe , HTN, HLD, DEDE (cpap), morbid obesity, DM Pt reports trouble with anesthesia during both knee replacement surgeries. She describes post anesthesia hypoxia requiring home O2 for sometime after her surgeries. She lives alone. Parents and brotherare all . She is tearful when talking about this. She has one friend in the city. 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 TTE date 03/25/17 EF 65 % AV mean gradient: 42 mmHg AV Peak Ulises: 4.4 m/sec AV area: 0.8 cm2 Aortic Valve There is global thickening of the aortic valve. There is calcification of the aortic valve present. Severe stenosis. Mitral Valve Normal valve structure and function. Tricuspid Valve Normal valve structure and function. Pulmonic Valve The pulmonic valve was not well visualized. Plan: Will need valve clinic consult. Plan for pre-TAVR CTA and Cor Angio. Pt will contact dentist for dental clearance. Reviewed TAVR education information with patient. No further questions at this time. Patient has my direct contact information and was encouraged to call with questions or concerns. Current Outpatient Prescriptions Medication Sig Note ??? aspirin 81 MG EC tablet Take 81 mg by mouth every other day. ??? BD INSULIN PEN NEEDLE UF SHORT 31 gauge x 12/15 Ndle USE WITH TOUJEO AND VICTOZA BID 12/30/2016: Received from: External Pharmacy ??? celecoxib (CELEBREX) 200 MG capsule Take 1 capsule by mouth daily. 08/14/2015: Received from: External Pharmacy Received Sig: ??? CRESTOR 10 mg tablet Take 1 tablet by mouth daily. 08/14/2015: Received from: External Pharmacy Received Sig: ??? HUMALOG MIX 75-25 KWIKPEN 100 unit/mL (75-25) pen 6-10 units 3 times daily 12/30/2016: Received from: External Pharmacy ??? LANTUS SOLOSTAR 100 unit/mL (3 mL) pen 60 Units every morning. 08/14/2015: Received from: External Pharmacy Received Sig: ??? losartan (COZAAR) 50 MG tablet Take 1 tablet by mouth daily. 08/14/2015: Received from: External Pharmacy Received Sig: ??? metFORMIN (GLUCOPHAGE) 500 MG tablet 2 tab AM, 3 tab PM 08/14/2015: Received from: External Pharmacy ??? sertraline (ZOLOFT) 100 MG tablet Take 50 mg by mouth daily. 08/14/2015: Received from: External Pharmacy Received Sig: Tomas Pino RN [facility] Valve Assistant Chief Of Police documented in this encounter Plan of Treatment Not on filedocumented as of this encounter Visit Diagnoses Not on filedocumented in this encounter Care Teams Network Support Engineer Relationship Specialty Start Date End Date Elyse Paredes MD PCP - General Family Practice 12/22/13 04/21/22 [address] [place] [address] documented as of this encounter
--- OUTSIDE RECORDS SUMMARY | 2022-07-02 13:45 | XMS_ITS | Encounter Summary ---
:1950 Author Organization [place] Address [address] [place] [address] Care Team Providers Name Role Phone Elyse Paredes MD Primary Care Provider Encounter Details Date Type Department Care Team Description 04/16/2017 [facility] - [facility] [address] [address] Social History Tobacco Use Types Packs/Day Years Used Date Smoking Tobacco: Never Assessed Sex Assigned at Date Recorded Not on file documented as of this encounter Plan of Treatment Not on filedocumented as of this encounter Visit Diagnoses Not on filedocumented in this encounter Care Teams Hospital Carrier Relationship Specialty Start Date End Date Elyse Paredes MD PCP - General Family Practice 12/22/13 04/21/22 [address] [place], [place] [phone] documented as of this encounter
--- OUTSIDE RECORDS SUMMARY | 2022-07-02 13:45 | XMS_ITS | Encounter Summary ---
:1950 Author Organization [place] Address [address] [place] [address] Care Team Providers Name Role Phone Dagmar Kang MD Unavailable Elyse Paredes MD Primary Care Provider Dagmar Kang MD Unavailable Raghu Bae MD Primary Care Provider [phone] Nicole Salazar APRN EQUIPMENT VALIDATION ENGINEER Unavailable [phone] Encounter Details Date Type Department Care Team Description 05/28/2017 Records - [facility] HE CONVERSION Scan, Non-Provider Social History Tobacco Use Types Packs/Day Years Used Date Smoking Tobacco: Never Assessed Sex Assigned at Date Recorded Not on file documented as of this encounter Plan of Treatment Not on filedocumented as of this encounter Visit Diagnoses Not on filedocumented in this encounter Care Teams Embedded Case Manager Relationship Specialty Start Date End Date Elyse Paredes MD PCP - General Family Practice 12/22/13 04/21/22 [address] [place] [address] Raghu Bae PCP - General Emergency Medicine 04/22/22 MD Dewayne [facility] [address] [place] [address] Dagmar Kang MD Assigned Heart and 02/14/21 02/27/22 [address] [facility], Vascular Provider [address] [place] [address] Dagmar Kang MD Assigned Heart and 03/21/22 04/24/22 [address] [facility], Vascular Provider [address] [place] [address] Nicole Salazar, Assigned Heart and 04/25/22 RADIATION MONITOR EQUIPMENT VALIDATION ENGINEER Vascular Provider [address] [facility] [address] [place] [address] documented as of this encounter
--- OUTSIDE RECORDS SUMMARY | 2022-07-02 13:46 | XMS_ITS | Encounter Summary ---
:1950 Author Organization [place] Address [address] [place] [address] Care Team Providers Name Role Phone Elyse Paredes MD Primary Care Provider Encounter Details Date Type Department Care Team Description 03/25/2017 Hospital Encounter [facility] Kendrick Quiles T, Aortic stenosis [facility] Heart Care [address] [place] [address], [address] [place] [address] [phone] Social History Tobacco Use Types Packs/Day Years [...] - - Weight 126.6 kg (279 lb) 03/25/2017 11:40 AM CDT Height 157.5 cm (5' 2) 03/25/2017 11:40 AM CDT Body Mass Index 51.03 03/25/2017 11:40 AM CDT documented in this encounter Medications [...] Associated Diagnosis Comme nts ECHO COMPLETE Routine 03/25/2017 11:40 AM Aortic stenosis Resu lts for this CDT procedure are i n the results section . documented in this encounter Results Echocardiogram Complete (03/25/2017 11:40 AM CDT) [facility] gist Method Time Signature LV volume diastolic 93 46 - 106 03/25/2017 HE RADIAN T cm3 3:02 PM CDT CONVERSION LV volume systolic 36 14 - 42 03/25/2017 HE RADIANT cm3 3:02 PM CDT CONVERSION INTERVENTRICULAR 1.2 0.6 - 0.9 03/25/2017 HE RADIANT SEPTUM IN END cm 3:02 PM CDT CONVERSION DIASTOLE LVIDd 5.1 3.8 - 5.2 03/25/2017 HE RADIANT cm 3:02 PM CDT CONVERSION LVIDs 3.4 2.2 - 3.5 03/25/2017 HE RADIANT cm 3:02 PM CDT CONVERSION LVOT diam 2 cm 03/25/2017 HE RADIANT 3:02 PM CDT CONVERSION LEFT VENTRICULAR 3 mmHg 03/25/2017 HE RADIANT OUTFLOW TRACT MEAN 3:02 PM CDT CONVERSIO N GRADIENT LVOT peak VTI 27.9 cm 03/25/2017 HE RADIANT 3:02 PM CDT CONVERSION LEFT VENTRICULAR 81.2 cm/s 03/25/2017 HE RADIANT OUTFLOW TRACT MEAN 3:02 PM CDT CONVERSIO N VELOCITY LVOT peak oniel 114 cm/s 03/25/2017 HE RADIANT 3:02 PM CDT CONVERSION LEFT VENTRICULAR 5 mmHg 03/25/2017 HE RADIANT OUTFLOW TRACT PEAK 3:02 PM CDT CONVERSIO N GRADIENT LV PWd 1 0.6 - 0.9 03/25/2017 HE RADIANT cm 3:02 PM CDT CONVERSION MV E'TISSUE ONIEL-LAT 9.65 cm/s 03/25/2017 HE RADIAN T 3:02 PM CDT CONVERSION MV E' med oniel 8.77 cm/s 03/25/2017 HE RADIANT 3:02 PM CDT CONVERSION AV mean oniel 306 cm/s 03/25/2017 HE RADIANT 3:02 PM CDT CONVERSION AV mean gradient 42 mmHg 03/25/2017 HE RADIANT 3:02 PM CDT CONVERSION AV VTI 110 cm 03/25/2017 HE RADIANT 3:02 PM CDT CONVERSION AV peak oniel 435 cm/s 03/25/2017 HE RADIANT 3:02 PM CDT CONVERSION AO ascending 3.2 cm 03/25/2017 HE RADIANT 3:02 PM CDT CONVERSION LA size 3.6 cm 03/25/2017 HE RADIANT 3:02 PM CDT CONVERSION MV decel time 290 ms 03/25/2017 HE RADIANT 3:02 PM CDT CONVERSION MV peak A oniel 108 cm/s 03/25/2017 HE RADIANT 3:02 PM CDT CONVERSION MV peak E oniel 109 cm/s 03/25/2017 HE RADIANT 3:02 PM CDT CONVERSION PV mean oniel 213 cm/s 03/25/2017 HE RADIANT 3:02 PM CDT CONVERSION PV mean gradient 21 mmHg 03/25/2017 HE RADIANT 3:02 PM CDT CONVERSION PV VTI 71.6 cm 03/25/2017 HE RADIANT 3:02 PM CDT CONVERSION PV VTI 71.6 cm 03/25/2017 HE RADIANT 3:02 PM CDT CONVERSION PV VMAX 322 cm/s 03/25/2017 HE RADIANT 3:02 PM CDT CONVERSION LA AREA 2 13.9 cm2 03/25/2017 HE RADIANT 3:02 PM CDT CONVERSION LA AREA 1 22.7 cm2 03/25/2017 HE RADIANT 3:02 PM CDT CONVERSION LEFT ATRIUM LENGTH 5.75 cm 03/25/2017 HE RADIANT 3:02 PM CDT CONVERSION TAPSE 1.8 cm 03/25/2017 HE RADIANT 3:02 PM CDT CONVERSION BSA 2.35 m2 03/25/2017 HE RADIANT 3:02 PM CDT CONVERSION End systolic index 62 in 03/25/2017 HE RADIANT (mL/m2) 3:02 PM CDT CONVERSION End diastolic index 4,464 lbs 03/25/2017 HE RADIAN T (mL/m2) 3:02 PM CDT CONVERSION BP 126/88 mmHg 03/25/2017 HE RADIANT 3:02 PM CDT CONVERSION HR 68 bpm 03/25/2017 HE RADIANT 3:02 PM CDT CONVERSION IVS/PW RATIO 1.2 03/25/2017 HE RADIANT 3:02 PM CDT CONVERSION LV FS 33.3 28 - 44 % 03/25/2017 HE RADIANT 3:02 PM CDT CONVERSION Ejection Fraction 61 55 - 75 % 03/25/2017 HE RADIANT 3:02 PM CDT CONVERSION LA volume 46.6 cm3 03/25/2017 HE RADIANT 3:02 PM CDT CONVERSION LV mass 213.9 g 03/25/2017 HE RADIANT 3:02 PM CDT CONVERSION AV area 0.8 cm2 03/25/2017 HE RADIANT 3:02 PM CDT CONVERSION AV DIM IND oniel 0.3 03/25/2017 HE RADIANT 3:02 PM CDT CONVERSION PV peak gradient 41.5 mmHg 03/25/2017 HE RADIANT 3:02 PM CDT CONVERSION MV E/A Ratio 1.0 03/25/2017 HE RADIANT 3:02 PM CDT CONVERSION LVOT area 3.14 cm2 03/25/2017 HE RADIANT 3:02 PM CDT CONVERSION LVOT SV 87.6 cm3 03/25/2017 HE RADIANT 3:02 PM CDT CONVERSION AV peak gradient 75.7 mmHg 03/25/2017 HE RADIANT 3:02 PM CDT CONVERSION LV systolic volume 15.3 11 - 31 03/25/2017 HE RADIANT index cm3/m2 3:02 PM CDT CONVERSION LV diastolic volume 39.6 34 - 74 03/25/2017 HE RADIAN T index cm3/m2 3:02 PM CDT CONVERSION LA volume index 19.8 mL/m2 03/25/2017 HE RADIANT 3:02 PM CDT CONVERSION LEFT VENTRICLE MASS 91.0 g/m2 03/25/2017 HE RADIAN T INDEX 3:02 PM CDT CONVERSION LV SVi 37.3 ml/m2 03/25/2017 HE RADIANT 3:02 PM CDT CONVERSION MV med E/e' ratio 12.4 03/25/2017 HE RADIANT 3:02 PM CDT CONVERSION MV lat E/e' ratio 11.3 03/25/2017 HE RADIANT 3:02 PM CDT CONVERSION LV CO 6.0 l/min 03/25/2017 HE RADIANT 3:02 PM CDT CONVERSION LV Ci 2.5 l/min/m2 03/25/2017 HE RADIANT 3:02 PM CDT CONVERSION Height 62.0 in 03/25/2017 HE RADIANT 3:02 PM CDT CONVERSION Weight 279 lbs 03/25/2017 HE RADIANT 3:02 PM CDT CONVERSION MV AVERAGE E/E' 11.8 cm/s 03/25/2017 HE RADIANT RATIO 3:02 PM CDT CONVERSION AV DIMENSIONLESS 0.3 03/25/2017 HE RADIANT INDEX VTI 3:02 PM CDT CONVERSION Echo LVEF Estimated 65 % 03/25/2017 HE RADIAN T 3:02 PM CDT CONVERSION Anatomical Region Laterality Modality Echocardiography Specimen (Source) Anatomical Collection Method Collection Time Re ceived Time Location / / Volume Laterality 03/25/2017 10:57 AM CDT Narrative 03/25/2017 3:02 PM CDT ?? The estimated left ventricular ejection fraction is 65%. This represents a normal ejection fraction. Mild hypertrophy noted. ?? There is global thickening of the aor tic valve. There is calcification of the aortic valve present. Severe stenosis. ?? When compared to the previous study carolina mehta 12/02/2016, aortic valve gradient has increased. Procedure Note Ilya Rogers MD / Provider, Histor [facility] - 01/07/2021 ?? The estimated left ventricular ejecti on fraction is 65%. This represents a normal ejection fraction. Mild hypertrophy noted. ?? There is global thickening of the aor tic valve. There is calcification of the aortic valve present. Severe stenosis. ?? When compared to the previous study d janine 12/02/2016, aortic valve gradient has increased. Vamshi Quiles MD CV ECHO ORDERABLES documented in this encounter Visit Diagnoses Diagnosis Aortic stenosis Aortic valve disorders documented in this encounter Care Teams Food Vendor Relationship Specialty Start Date End Date Elyse Paredes MD PCP - General Family Practice 12/22/13 04/21/[address] [address] documented as of this encounter
--- OUTSIDE RECORDS SUMMARY | 2022-07-02 13:46 | XMS_ITS | Encounter Summary ---
:1950 Author Organization [facility] Address [address] [place] [address] Care Team Providers Name Role Phone Elyse Paredes MD Primary Care Provider Reason for Visit Reason Comments Follow Up Encounter Details Date Type Department Care Team Description 12/30/2016 Office Visit - [facility] Kesha Quilesum bubba aortic valve stenosis; [facility] Vamshi Cuevas MD [address], [place] [address] [place] [address] [phone] Social History Tobacco Use Types Packs/Day Years Used Date Smoking Tobacco: Never Assessed Sex Assigned at Date Recorded Not on file documented as of this encounter Last Filed Vital Signs Vital Sign Reading Time Taken Comments Blood Pressure - - Pulse - - Temperature - - Respiratory Rate - - Oxygen Saturation - - Inhaled Oxygen Concentration - - Weight 126.8 kg (279 lb 8 oz) 12/30/2016 3:50 PM CDT Height 157.5 cm (5' 2) 12/30/2016 3:50 PM CDT Body Mass Index 51.12 12/30/2016 3:50 PM CDT documented in this encounter Progress Notes Vamshi Quiles MD - 12/30/2016 4:[address] [facility] Outpatient Follow-up evaluation. Current Outpatient Prescriptions: ??? BD INSULIN PEN NEEDLE UF SHORT 31 gauge x 5/16 Ndle, USE WITH TOUJEO AND VICTOZA BID, Disp: , Rfl: 3 ??? celecoxib (CELEBREX) 200 MG capsule, Take 1 capsule by mouth daily., Disp: , Rfl: ??? CRESTOR 10 mg tablet, Take 1 tablet by mouth daily., Disp: , Rfl: ??? LANTUS SOLOSTAR 100 unit/mL (3 mL) pen, 28 Units 2 (two) times a day., Disp: , Rfl: ??? losartan (COZAAR) 50 MG tablet, Take 1 tablet by mouth daily., Disp: , Rfl: ??? sertraline (ZOLOFT) 100 MG tablet, Take 50 mg by mouth daily. , Disp: , Rfl: ??? aspirin 81 MG EC tablet, Take 81 mg by mouth daily., Disp: , Rfl: ??? HUMALOG MIX 75-25 KWIKPEN 100 unit/mL (75-25) pen, INJECT 50 UNITS SUBCUTANEOUSLY IN THE MORNINGWITH BREAKFAST AND 40 UNITS IN THE EVENING WITH DINNER, Disp: , Rfl: 2 ??? metFORMIN (GLUCOPHAGE) 500 MG tablet, 2 tab AM, 3 tab PM, Disp: , Rfl: Marci Diaz is a 66 y.o. Female Chief Complaint Patient presents with ??? Follow-up Diagnoses: See Problem list Recommendations: For now continue with current medical therapy and we will arrange for a echo in 6 months. I did encourage her to increase her level physical activity but avoid strenuous or isometric type of activity. Walking swimming bicycling at moderate levels would be good exercise and if she would notice any change in her symptoms she should contact us. I did explain to her her grade of aortic stenosis and considerations for management. Subjective: Not having dyspnea on exertion orthopnea PND lightheadedness or presyncope on exertion chest pain or angina. She is planning on traveling to [place] in April 2018 for 6 weeks and wants tobegin exercising in anticipation of this. She is going to do brisk walking. At present she has been walking on a track at the high school during the lunch hour to start her activity. She seemed to tolerate this well is not aware of any limitations in breathing. No past medical history on file. No past surgical history on file. Allergies Allergen Reactions ??? Erythromycin Base Rash No family history on file. Social History Social History ??? Marital status: [...] Not on file Social History Narrative Family history not pertinent to chief complaint or presenting problem Current Outpatient Prescriptions: ??? BD INSULIN PEN NEEDLE UF SHORT 31 gauge x 12/15 Ndle, USE WITH TOUJEO AND VICTOZA BID, Disp: , Rfl: 3 ??? celecoxib (CELEBREX) 200 MG capsule, Take 1 capsule by mouth daily., Disp: , Rfl: ??? CRESTOR 10 mg tablet, Take 1 tablet by mouth daily., Disp: , Rfl: ??? LANTUS SOLOSTAR 100 unit/mL (3 mL) pen, 28 Units 2 (two) times a day., Disp: , Rfl: ??? losartan (COZAAR) 50 MG tablet, Take 1 tablet by mouth daily., Disp: , Rfl: ??? sertraline (ZOLOFT) 100 MG tablet, Take 50 mg by mouth daily. , Disp: , Rfl: ??? aspirin 81 MG EC tablet, Take 81 mg by mouth daily., Disp: , Rfl: ??? HUMALOG MIX 75-25 KWIKPEN 100 unit/mL (75-25) pen, INJECT 50 UNITS SUBCUTANEOUSLY IN THE MORNINGWITH BREAKFAST AND 40 UNITS IN THE EVENING WITH DINNER, Disp: , Rfl: 2 ??? metFORMIN (GLUCOPHAGE) 500 MG tablet, 2 tab AM, 3 tab PM, Disp: , Rfl: Objective: BP 126/88 (Patient Site: Left Arm, Patient Position: Sitting, Cuff Size: Adult Large) Pulse 61 Resp 16 Ht 5' 2 (1.575 m) Wt (!) 279 lb 8 oz (126.8 kg) BMI 51.12 kg/m2 (!) 279 lb 8 oz (126.8 kg) Wt Readings from Last 3 Encounters: 12/30/16 (!) 279 lb 8 oz (126.8 kg) 12/02/16 (!) 280 lb (127 kg) 08/14/15 (!) 280 lb 9.6 oz (127.3 kg) BP Readings from Last 3 Encounters: 12/30/16 126/88 08/14/15 138/82 Pulse Readings from Last 3 Encounters: 12/30/16 61 08/14/15 80 General appearance: alert, appears stated age and cooperative Head: Normocephalic, without obvious abnormality, atraumatic Eyes: Normal external exam without jaundice. Ears: Normal external auricular exam. Nose: Normal external exam. Lungs: clear to auscultation bilaterally Chest wall: no tenderness Heart: regular rate and rhythm, S1, S2 normal, no murmur, click, rub or gallop harsh 3 to 4/6 murmurdiffuse of the chest systolic. Pulses: 2+ and symmetric Skin: Skin color, texture, turgor normal. Neurologic: Grossly normal, no focal neurologic findings. Review of Systems: General: WNL Cardiographics: Reviewed in clinic. Lab Results: Lab Results: Personally reviewed Hospital Outpatient Visit on 12/02/2016 Component Date Value ??? LV volume diastolic 12/02/2016 54 ??? LV volume systolic 12/02/2016 20.7 ??? IVSd 12/02/2016 1.61 ??? LVIDd 12/02/2016 4.18 ??? LVIDs 12/02/2016 2.84 ??? LVOT diam 12/02/2016 2 ??? LVOT mean gradient 12/02/2016 4 ??? LVOT peak VTI 12/02/2016 30.7 ??? LVOT mean oniel 12/02/2016 90.9 ??? LVOT peak oniel 12/02/2016 129 ??? LVOT peak gradient 12/02/2016 7 ??? LV PWd 12/02/2016 1.28 ??? MV E' lat oniel 12/02/2016 8.12 ??? MV E' med oniel 12/02/2016 6.29 ??? AV mean oniel 12/02/2016 280 ??? AV mean gradient 12/02/2016 35 ??? AV VTI 12/02/2016 85.7 ??? AV peak oniel 12/02/2016 387 ??? AO root 12/02/2016 3 ??? LA size 12/02/2016 3.7 ??? LA length 12/02/2016 5 ??? MV decel time 12/02/2016 303 ??? MV peak A oniel 12/02/2016 88.8 ??? MV peak E oniel 12/02/2016 79.1 ??? LA area 2 12/02/2016 13.6 ??? LA area 1 12/02/2016 18.3 ??? BSA 12/02/2016 2.35 ??? Hieght 12/02/2016 62 ??? Weight 12/02/2016 4480 ??? IVS/PW ratio 12/02/2016 1.3 ??? LV FS 12/02/2016 32.1 ??? Echo LVEF calculated 12/02/2016 62 ??? LA volume 12/02/2016 42.3 ??? LV mass 12/02/2016 233.9 ??? AV area 12/02/2016 1.1 ??? AV DIM IND oniel 12/02/2016 0.3 ??? MV E/A Ratio 12/02/2016 0.9 ??? LVOT area 12/02/2016 3.14 ??? LVOT SV 12/02/2016 96.4 ??? AV peak gradient 12/02/2016 59.9 ??? LV systolic volume index 12/02/2016 8.8 ??? LV diastolic volume index 12/02/2016 23.0 ??? LA volume index 12/02/2016 18.0 ??? LV mass index 12/02/2016 99.5 ??? LV SVi 12/02/2016 41.0 ??? TAPSE 12/02/2016 2.4 ??? MV med E/e' ratio 12/02/2016 12.6 ??? MV lat E/e' ratio 12/02/2016 9.7 ??? HR 12/02/2016 84 ??? LV CO 12/02/2016 8.1 ??? LV Ci 12/02/2016 3.4 ??? Height 12/02/2016 62.0 ??? Weight 12/02/2016 280 ??? MV Avg E/e' Ratio 12/02/2016 11.0 ??? AV DIM IND VTI 12/02/2016 0.4 Clinical evaluation time today including exam 25 minutes. At least 50% of clinic evaluation time involved in assessment and patient counseling. Part of this chart was created using a dictation software. Typographic errors, word substitutions, and grammatical errors may unintentionally occur. Vamshi Quiles M.D. [facility] documented in this encounter Plan of Treatment Not on filedocumented as of this encounter Visit Diagnoses Diagnosis Nonrheumatic aortic valve stenosis Aortic valve disorders Pure hypercholesterolemia documented in this encounter Care Teams Culinary Artist Relationship Specialty Start Date End Date Elyse Paredes MD PCP - General Family Practice 12/22/13 04/21/[address] [place] [address] documented as of this encounter
--- OUTSIDE RECORDS SUMMARY | 2022-07-02 13:46 | XMS_ITS | Encounter Summary ---
:1950 Author Organization [facility] Address [address] [place] [address] Care Team Providers Name Role Phone Elyse Paredes MD Primary Care Provider Reason for Visit Reason Comments Consult Encounter Details Date Type Department Care Team Description 04/16/2017 Office Visit - [facility] Ivette Nonrheum atic aortic valve stenosis; [facility] Damien Bullard ao rtic stenosis Fransico CLEMENTS [address] [place] [phone] [place], [place] [phone] [id number] Social History Tobacco Use Types Packs/Day Years [...] - - Weight 128.8 kg (284 lb) 04/16/2017 11:38 AM CDT Height 157.5 cm (5' 2) 04/16/2017 11:38 AM CDT Body Mass Index 51.94 04/16/2017 11:38 AM CDT documented in this encounter Progress Notes Alfonzo Steele MD - 04/16/2017 11:30 AM CDT Cardiothoracic Surgery Consult Date of Service: 04/16/2017 REFERRING PROPERTY PORTFOLIO OFFICER: Dr. Elida Quiles REASON FOR CONSULTATION: Ms. Diaz is a 67 year-old woman with symptomatic severe . HISTORY OF PRESENT ILLNESS: Ms. Diaz is a 67 year-old woman with known that has now progressed inseverity. 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 She has no chest pain or palpitations, and she denies syncope or presyncope. She has dyspnea with even minimal exertion. She also has morbid obesity and may have some COPD. She had two knee replacements previously and she had a lot of difficulty recovering from the last one. She was readmitted with acute hypoxic respiratory failure. PAST MEDICAL HISTORY: Hypertension. Type 2 diabetes mellitus. Dyslipidemia. Possible bicuspid valve. Obstructive sleep apnea- CPAP. Nephrolithiasis. History of degenerative joint disease. Depression. PAST SURGICAL HISTORY: Bilateral knee replacements. ALLERGIES: Allergies Allergen Reactions ??? Lisinopril Cough [...] Take 50 mg by mouth daily. ??? metFORMIN (GLUCOPHAGE) 500 MG tablet 2 tab AM, 3 tab PM No current facility-administered medications on file prior to visit. FAMILY HISTORY: The family history was reviewed and is [...] file Social History Narrative REVIEW OF SYSTEMS: A complete 10 point review of systems was obtained and is negative other than the above stated complaints PHYSICAL EXAMINATION: Vitals: BP 140/90 (Patient Site: Right Arm, Patient Position: Sitting, Cuff Size: Adult Large) Pulse 84 Resp 16 Ht 5' 2 (1.575 m) Wt (!) 284 lb (128.8 kg) BMI 51.94 kg/m2 GENERAL: Well developed and well nourished HEENT: Normocephalic, conjunctiva anicteric and sclera clear NECK: negative findings: no asymmetry, masses, or scars CARDIOVASCULAR: Regular rate and rhythm RESPIRATIONS: no tachypnea, retractions or cyanosis ABDOMEN: normal findings: soft, non-tender EXTREMITIES:negative and no deformity or swelling NEUROLOGIC: intact and symmetric with no focal deficits. PSYCHIATRIC: alert and oriented x3, pleasant LABORATORY STUDIES: Lab Results Component Value Date WBC 7.1 01/07/2010 HGB 10.0 (L) 01/09/2010 HCT 37.3 01/07/2010 MCV 90 01/07/2010 PLT 209 01/07/2010 Lab Results Component Value Date CREATININE 1.09 01/21/2017 BUN 25 (H) 01/21/2017 NA 138 01/21/2017 K 4.5 01/21/2017 CL 101 01/21/2017 CO2 29 01/21/2017 Lab Results Component Value Date HGBA1C 7.5 (H) 01/08/2010 TRANSTHORACIC ECHOCARDIOGRAM: This study was personally reviewed by me ?? The estimated left ventricular ejection fraction is 65%. This represents a normal ejection fraction. Mild hypertrophy noted. ?? There is global thickening of the aortic valve. There is calcification of the aortic valve present. Severe stenosis. ?? When compared to the previous study dated 12/02/2016, aortic valve gradient has increased. IMPRESSION AND PLAN: Ms. Diaz is a 67 year-old woman with symptomatic severe . I discussed the option of surgical aortic valve replacement. I discussed the technical details of the procedure with thepatient, as well as the expected postoperative course and recovery. The risks include but are not limited to bleeding, infection, stroke, heart or graft failure, dysrhythmia, respiratory failure, kidney or liver injury, bowel or limb ischemia, and . Her calculated STS risk for mortality is 3.7% and the calculated risk of major morbidity or mortality is 20% with a 1% risk of stroke and a 7% risk of renal failure. Although her risk is intermediate at most, the recovery will be quite difficult, she is at high risk for respiratory and sternal complications, and and she is also at high risk for patient-prosthesis mismatch. Or all of these reasons, I recommend consideration for TAVR. She will be evaluated in TAVR clinic for further consideration. I discussed the technical details of this, as well as the expected postoperative course and recovery. Thank you very much for this referral. Alfonzo Steele 04/16/2017 12:34 PM documented in this encounter Plan of Treatment Not on filedocumented as of this encounter Visit Diagnoses Diagnosis Nonrheumatic aortic valve stenosis Aortic valve disorders Severe aortic stenosis Aortic valve disorders documented in this encounter Care Teams Roll Hand Relationship Specialty Start Date End Date Elyse Paredes MD PCP - General Family Practice 12/22/13 04/21/22 [address] [address] documented as of this encounter
--- OUTSIDE RECORDS SUMMARY | 2022-07-02 13:46 | XMS_ITS | Encounter Summary ---
:1950 Author Organization [facility] Address [address] [place] [address]. [place] [address] Care Team Providers Name Role Phone Elyse Paredes MD Primary Care Provider Encounter Details Date Type Department Care Team Description [facility]/22[facility]2016 [facility] Faith MD [address], [address] [place] [address] [phone] Social History Tobacco Use Types Packs/Day Years Used Date Smoking Tobacco: Never Assessed Sex Assigned at Date Recorded Not on file documented as of this encounter Plan of Treatment Not on filedocumented as of this encounter Visit Diagnoses Not on filedocumented in this encounter Care Teams Youth Services Librarian Relationship Specialty Start Date End Date Elyse Paredes MD PCP - General Family Practice 12/22/13 04/21/22 [address] [place] [address] documented as of this encounter
--- OUTSIDE RECORDS SUMMARY | 2022-07-02 13:46 | XMS_ITS | Encounter Summary ---
:1950 Author Organization [facility] Address [address] [place] [address] Care Team Providers Name Role Phone Elyse Paredes MD Primary Care Provider Encounter Details Date Type Department Care Team Description 12/25/2016 [facility] Provider, [address] [address] Social History Tobacco Use Types Packs/Day Years Used Date Smoking Tobacco: Never Assessed Sex Assigned at Date Recorded Not on file documented as of this encounter Plan of Treatment Not on filedocumented as of this encounter Visit Diagnoses Not on filedocumented in this encounter Care Teams Engine Repairer Production Relationship Specialty Start Date End Date Elyse Paredes MD PCP - General Family Practice 12/22/13 04/21/22 [address] [place], [place] [id number] documented as of this encounter
--- OUTSIDE RECORDS SUMMARY | 2022-07-02 13:46 | XMS_ITS | Encounter Summary ---
:1950 Author Organization [facility] Address [address] [place] [address] Care Team Providers Name Role Phone Elyse Paredes MD Primary Care Provider Encounter Details Date Type Department Care Team Description 03/25/2016 [facility] [address] [phone] Social History Tobacco Use Types Packs/Day Years Used Date Smoking Tobacco: Never Assessed Sex Assigned at Date Recorded Not on file documented as of this encounter Plan of Treatment Not on filedocumented as of this encounter Procedures Procedure Name Priority Date/Time Associated Diagnosis Comme nts LIPID PROFILE Routine 03/25/2016 10:40 AM Results for this CDT procedure are i n the results section . documented in this encounter Results (ABNORMAL) Lipid Profile (03/25/2016 10:40 AM CDT) [facility] Method Time Signature Cholesterol 124 <=199 03/25/2016 HEALTH mg/dL 4:41 PM CDT [facility] Triglycerides 98 <=149 03/25/2016 [facility] mg/dL 4:41 PM T [facility] Direct Measure 49 (L) >=50 03/25/2016 [facility] HDL mg/dL 4:41 PM T [facility] LDL Cholesterol 55 <=129 03/25/2016 [facility] Calculated mg/dL 4:41 PM CDT [facility] Patient Fasting > Unknown 03/25/2016 [facility] 8hrs? 4:41 PM CDT [facility] Specimen Anatomical Collection Method Collection Time Receive d Time (Source) Location / / Volume Laterality Blood specimen 03/25/2016 10:40 6 2:33 (specimen) AM CDT PM CDT Elyse Paredes MD LAB - BLOOD ORDERABLES Performing Organization Address City/State/[facility] Code Phon e [place] [address] [phone] [address] [facility] documented in this encounter Visit Diagnoses Not on filedocumented in this encounter Care Teams Knife Operator Relationship Specialty Start Date End Date Elyse Paredes MD PCP - General Family Practice 12/22/13 04/21/22 [address] [place] [address] documented as of this encounter
--- OUTSIDE RECORDS SUMMARY | 2022-07-02 13:46 | XMS_ITS | Encounter Summary ---
:1950 Author Organization [facility] Address [address] [place] [address] Care Team Providers Name Role Phone Elyse Paredes MD Primary Care Provider Encounter Details Date Type Department Care Team Description 04/16/2017 [facility] Provider, Severe aor [facility] Clinic St. Historical stenosis [address] [address] Social History Tobacco Use Types Packs/Day Years Used Date Smoking Tobacco: Never Assessed Sex Assigned at Date Recorded Not on file documented as of this encounter Plan of Treatment Not on filedocumented as of this encounter Visit Diagnoses Diagnosis Severe aortic stenosis Aortic valve disorders documented in this encounter Care Teams Gallery Host Relationship Specialty Start Date End Date Elyse Paredes MD PCP - General Family Practice 12/22/13 04/21/22 [address] [place], [place] [phone] documented as of this encounter
--- OUTSIDE RECORDS SUMMARY | 2022-07-02 13:46 | XMS_ITS | Encounter Summary ---
:1950 Author Organization [facility] Address [address] [place] [address] Care Team Providers Name Role Phone Elyse Paredes MD Primary Care Provider Encounter Details Date Type Department Care Team Description 07/30/2015 [facility] Provider, [facility] Heart [address] [address] Social History Tobacco Use Types Packs/Day Years Used Date Smoking Tobacco: Never Assessed Sex Assigned at Date Recorded Not on file documented as of this encounter Plan of Treatment Not on filedocumented as of this encounter Visit Diagnoses Not on filedocumented in this encounter Care Teams Project Lead Relationship Specialty Start Date End Date Elyse Paredes MD PCP - General Family Practice 12/22/13 04/21/22 [address] [place], [place] [id number] documented as of this encounter
--- OUTSIDE RECORDS SUMMARY | 2022-07-02 13:46 | XMS_ITS | Encounter Summary ---
:1950 Author Organization [facility] Address [address] [place] [address] Care Team Providers Name Role Phone Elyse Paredes MD Primary Care Provider Reason for Visit Reason Comments Follow Up Encounter Details Date Type Department Care Team Description 08/14/2015 Office Visit - M [facility] Vamshi Quiles c valvular stenosis; [facility] MD HLD (hyperlipidemia) [address], [address] [place] [address] [phone] Social History Tobacco Use Types Packs/Day Years Used Date Smoking Tobacco: Never Assessed Sex Assigned at Date Recorded Not on file documented as of this encounter Last Filed Vital Signs Vital Sign Reading Time Taken Comments Blood Pressure - - Pulse - - Temperature - - Respiratory Rate - - Oxygen Saturation - - Inhaled Oxygen Concentration - - Weight 127.3 kg (280 lb 9.6 oz) 08/14/2015 2:56 PM LOOM DOFFER Height 157.5 cm (5' 2) 08/14/2015 2:56 PM LOOM DOFFER Body Mass Index 51.32 08/14/2015 2:56 PM LOOM DOFFER documented in this encounter Progress Notes Vamshi Quiles MD - 08/14/2015 2:56 PM CST [facility] Outpatient Follow-up evaluation. Marci Diaz is a 65 y.o. Female Chief Complaint Patient presents with ??? Follow-up Diagnoses: Aortic stenosis. Tricuspid, degenerative type Recommendations: Echo 1 year, remain active, lipid RX There are no active problems to display for this patient. Problem List Items Addressed This Visit None Subjective: No new sx, denies chest pain, sob, dizzy, palitations No past medical history on file. No past surgical history on file. Allergies Allergen Reactions ??? Erythromycin Base Rash No family history on file. History Social History ??? Marital Status: Spouse Name: N/A Number of Children: N/A ??? Years of Education: N/A Occupational History ??? Not on file. Social History Main Topics ??? Smoking status: Not on file ??? Smokeless tobacco: Not on file ??? Alcohol Use: Not on file ??? Drug Use: Not on file ??? Sexual Activity: Not on file Other Topics Concern ??? Not on file Social History Narrative ??? No narrative on file Current outpatient prescriptions:aspirin 81 MG EC tablet, Take 81 mg by mouth daily., Disp: , Rfl: ;celecoxib (CELEBREX) 200 MG capsule, Take 1 capsule by mouth daily., Disp: , Rfl: ; CRESTOR 10 mg tablet, Take 1 tablet by mouth daily., Disp: , Rfl: ; LANTUS SOLOSTAR 100 unit/mL (3 mL) pen, 28 Units 2 (two) times a day., Disp: , Rfl: ; losartan (COZAAR) 50 MG tablet, Take 1 tablet by mouth daily., Disp: , Rfl: metFORMIN (GLUCOPHAGE) 500 MG tablet, 2 tab AM, 3 tab PM, Disp: , Rfl: ; sertraline (ZOLOFT) 100 MG tablet, Take 1 tablet by mouth daily., Disp: , Rfl: There are no discontinued medications. Objective: There were no vitals taken for this visit. Wt Readings from Last 3 Encounters: No data found for Wt BP Readings from Last 3 Encounters: No data found for BP Pulse Readings from Last 3 Encounters: No data found for Pulse General appearance: alert, appears stated age and cooperative Head: Normocephalic, without obvious abnormality, atraumatic Eyes: Normal external exam without jaundice. Ears: Normal external auricular exam. Nose: Normal external exam. Throat: Normal oral exam. Lungs: clear to auscultation bilaterally Chest wall: no tenderness Heart: regular rate and rhythm, S1, S2 normal, no murmur, click, rub or gallop harsh 3/6 m ulsb Abdomen: soft, non-tender; bowel sounds normal; no masses, no organomegaly Extremities: Normal exam, no significant edema. Pulses: 2+ and symmetric Skin: Skin color, texture, turgor normal. No rashes or lesions Neurologic: Grossly normal, no focal neurologic findings. Review of Systems: General: WNL Eyes: WNL Ears/Nose/Throat: WNL Lungs: WNL Heart: Leg Swelling Stomach: Heartburn Bladder: WNL Muscle/Joints: Arthritis Skin: WNL Nervous System: WNL Mental Health: WNL Hormones: Negative Blood: WNL Cardiographics: Reviewed in clinic. 321 cm/s AV Peak Velocity: 41.22 mmHg AV Peak Gradient: 24 mmHg AV Mean Gradient:24 mmHg AV Area (Continuity):1.34 cm?? Lab Results: Lab Results: personally reviewed. Lab Results Component Value Date NA 138 03/18/2015 K 4.5 03/18/2015 CL 100 03/18/2015 CO2 28 03/18/2015 BUN 18 03/18/2015 CREATININE 1.14* 03/18/2015 CALCIUM 10.4 03/18/2015 No results found for this basename: CKTOTAL, CKMB, CKMBINDEX, TROPONINI Lab Results Component Value Date WBC 7.1 01/07/2010 HGB 10.0* 01/09/2010 HCT 37.3 01/07/2010 MCV 90 01/07/2010 PLT 209 01/07/2010 Lab Results Component Value Date CHOL 144 03/18/2015 TRIG 131 03/18/2015 HDL 53 03/18/2015 Clinical evaluation time today including exam 25 minutes. Part of this chart was created using a dictation software. Typographic errors, word substitutions, and grammatical errors may unintentionally occur. Vamshi Quiles M.D. [facility] Heart [facility] DOFFER documented in this encounter Plan of Treatment Not on filedocumented as of this encounter Visit Diagnoses Diagnosis Aortic valvular stenosis Aortic valve disorders HLD (hyperlipidemia) Other and unspecified hyperlipidemia documented in this encounter Care Teams Investigations Consultant Relationship Specialty Start Date End Date Elyse Paredes MD PCP - General Family Practice 12/22/13 04/21/22 [address] [id number] documented as of this encounter
--- OUTSIDE RECORDS SUMMARY | 2022-07-02 13:46 | XMS_ITS | Encounter Summary ---
:1950 Author Organization [facility] Address [address] [place] [address] Care Team Providers Name Role Phone Elyse Paredes MD Primary Care Provider Encounter Details Date Type Department Care Team Description [facility]/02[facility] [address] [facility] [address] [facility], [address] [address] [place], [place] [phone] [facility] Social History Tobacco Use Types Packs/Day Years [...] - - Weight 127 kg (280 lb) 12/02/2016 3:58 PM CDT Height 157.5 cm (5' 2) 12/02/2016 3:58 PM CDT Body Mass Index 51.21 12/02/2016 3:58 PM CDT documented in this encounter Medications [...] Associated Diagnosis Comme nts ECHO COMPLETE Routine 12/02/2016 3:45 PM Aortic stenosis Resul ts for this CDT procedure are i n the results section . documented in this encounter Results Echocardiogram Complete (12/02/2016 3:45 PM CDT) [facility] gist Method Time Signature LV volume diastolic 54 46 - 106 12/02/2016 HE RADIAN T cm3 8:55 PM CDT CONVERSION LV volume systolic 20.7 14 - 42 12/02/2016 HE RADIANT cm3 8:55 PM CDT CONVERSION INTERVENTRICULAR 1.61 0.6 - 0.9 12/02/2016 HE RADIANT SEPTUM IN END cm 8:55 PM CDT CONVERSION DIASTOLE LVIDd 4.18 3.8 - 5.2 12/02/2016 HE RADIANT cm 8:55 PM CDT CONVERSION LVIDs 2.84 2.2 - 3.5 12/02/2016 HE RADIANT cm 8:55 PM CDT CONVERSION LVOT diam 2 cm 12/02/2016 HE RADIANT 8:55 PM CDT CONVERSION LEFT VENTRICULAR 4 mmHg 12/02/2016 HE RADIANT OUTFLOW TRACT MEAN 8:55 PM CDT CONVERSIO N GRADIENT LVOT peak VTI 30.7 cm 12/02/2016 HE RADIANT 8:55 PM CDT CONVERSION LEFT VENTRICULAR 90.9 cm/s 12/02/2016 HE RADIANT OUTFLOW TRACT MEAN 8:55 PM CDT CONVERSIO N VELOCITY LVOT peak oniel 129 cm/s 12/02/2016 HE RADIANT 8:55 PM CDT CONVERSION LEFT VENTRICULAR 7 mmHg 12/02/2016 HE RADIANT OUTFLOW TRACT PEAK 8:55 PM CDT CONVERSIO N GRADIENT LV PWd 1.28 0.6 - 0.9 12/02/2016 HE RADIANT cm 8:55 PM CDT CONVERSION MV E'TISSUE ONIEL-LAT 8.12 cm/s 12/02/2016 HE RADIAN T 8:55 PM CDT CONVERSION MV E' med oniel 6.29 cm/s 12/02/2016 HE RADIANT 8:55 PM CDT CONVERSION AV mean oniel 280 cm/s 12/02/2016 HE RADIANT 8:55 PM CDT CONVERSION AV mean gradient 35 mmHg 12/02/2016 HE RADIANT 8:55 PM CDT CONVERSION AV VTI 85.7 cm 12/02/2016 HE RADIANT 8:55 PM CDT CONVERSION AV peak oniel 387 cm/s 12/02/2016 HE RADIANT 8:55 PM CDT CONVERSION AO root 3 cm 12/02/2016 HE RADIANT 8:55 PM CDT CONVERSION LA size 3.7 cm 12/02/2016 HE RADIANT 8:55 PM CDT CONVERSION LEFT ATRIUM LENGTH 5 cm 12/02/2016 HE RADIANT 8:55 PM CDT CONVERSION MV decel time 303 ms 12/02/2016 HE RADIANT 8:55 PM CDT CONVERSION MV peak A oniel 88.8 cm/s 12/02/2016 HE RADIANT 8:55 PM CDT CONVERSION MV peak E oniel 79.1 cm/s 12/02/2016 HE RADIANT 8:55 PM CDT CONVERSION LA AREA 2 13.6 cm2 12/02/2016 HE RADIANT 8:55 PM CDT CONVERSION LA AREA 1 18.3 cm2 12/02/2016 HE RADIANT 8:55 PM CDT CONVERSION BSA 2.35 m2 12/02/2016 HE RADIANT 8:55 PM CDT CONVERSION End systolic index 62 in 12/02/2016 HE RADIANT (mL/m2) 8:55 PM CDT CONVERSION End diastolic index 4,480 lbs 12/02/2016 HE RADIAN T (mL/m2) 8:55 PM CDT CONVERSION IVS/PW RATIO 1.3 12/02/2016 HE RADIANT 8:55 PM CDT CONVERSION LV FS 32.1 28 - 44 % 12/02/2016 HE RADIANT 8:55 PM CDT CONVERSION Ejection Fraction 62 55 - 75 % 12/02/2016 HE RADIANT 8:55 PM CDT CONVERSION LA volume 42.3 cm3 12/02/2016 HE RADIANT 8:55 PM CDT CONVERSION LV mass 233.9 g 12/02/2016 HE RADIANT 8:55 PM CDT CONVERSION AV area 1.1 cm2 12/02/2016 HE RADIANT 8:55 PM CDT CONVERSION AV DIM IND oniel 0.3 12/02/2016 HE RADIANT 8:55 PM CDT CONVERSION MV E/A Ratio 0.9 12/02/2016 HE RADIANT 8:55 PM CDT CONVERSION LVOT area 3.14 cm2 12/02/2016 HE RADIANT 8:55 PM CDT CONVERSION LVOT SV 96.4 cm3 12/02/2016 HE RADIANT 8:55 PM CDT CONVERSION AV peak gradient 59.9 mmHg 12/02/2016 HE RADIANT 8:55 PM CDT CONVERSION LV systolic volume 8.8 11 - 12/02/2016 HE RADIANT index cm3/m2 8:55 PM CDT CONVERSION LV diastolic volume 23.0 34 - 74 12/02/2016 HE RADIAN T index cm3/m2 8:55 PM CDT CONVERSION LA volume index 18.0 mL/m2 12/02/2016 HE RADIANT 8:55 PM CDT CONVERSION LEFT VENTRICLE MASS 99.5 g/m2 12/02/2016 HE RADIAN T INDEX 8:55 PM CDT CONVERSION LV SVi 41.0 ml/m2 12/02/2016 HE RADIANT 8:55 PM CDT CONVERSION TAPSE 2.4 cm 12/02/2016 HE RADIANT 8:55 PM CDT CONVERSION MV med E/e' ratio 12.6 12/02/2016 HE RADIANT 8:55 PM CDT CONVERSION MV lat E/e' ratio 9.7 12/02/2016 HE RADIANT 8:55 PM CDT CONVERSION HR 84 bpm 12/02/2016 HE RADIANT 8:55 PM CDT CONVERSION LV CO 8.1 l/min 12/02/2016 HE RADIANT 8:55 PM CDT CONVERSION LV Ci 3.4 l/min/m2 12/02/2016 HE RADIANT 8:55 PM CDT CONVERSION Height 62.0 in 12/02/2016 HE RADIANT 8:55 PM CDT CONVERSION Weight 280 lbs 12/02/2016 HE RADIANT 8:55 PM CDT CONVERSION MV AVERAGE E/E' 11.0 cm/s 12/02/2016 HE RADIANT RATIO 8:55 PM CDT CONVERSION AV DIMENSIONLESS 0.4 12/02/2016 HE RADIANT INDEX VTI 8:55 PM CDT CONVERSION Anatomical Region Laterality Modality Echocardiography Specimen (Source) Anatomical Collection Method Collection Time Re ceived Time Location / / Volume Laterality 12/02/2016 2:33 PM CDT Narrative 12/02/2016 8:55 PM CDT ?? When compared to the previous study dated 08/09/2015, there are changes noted. Aortic stenosis is now moderate to severe. ?? Left ventricle ejection fraction is n ormal. The calculated left ventricular ejection fraction is 62%. ?? Moderate to severe aortic stenosis. Procedure Note Jazmin Michaels MD / Provider[facility] 01/07/2021 ?? When compared to the previous study d ated 08/09/2015, there are changes noted. Aortic stenosis is now moderate to severe. ?? Left ventricle ejection fraction is n ormal. The calculated left ventricular ejection fraction is 62%. ?? Moderate to severe aortic stenosis. Vamshi Quiles MD CV ECHO ORDERABLES documented in this encounter Visit Diagnoses Diagnosis Aortic stenosis Aortic valve disorders documented in this encounter Care Teams Fisher Sponge Hooking Relationship Specialty Start Date End Date Elyse Paredes MD PCP - General Family Practice 12/22/13 04/21/22 [address] [place] [address] documented as of this encounter
--- OUTSIDE RECORDS SUMMARY | 2022-07-02 13:46 | XMS_ITS | Encounter Summary ---
:1950 [address] [facility] Address [address] [place] [address] Care Team Providers Name Role Phone Elyse Paredes MD Primary Care Provider Encounter Details Date Type Department Care Team Description 03/30/2017 [facility] [address] [address] Social History Tobacco Use Types Packs/Day Years Used Date Smoking Tobacco: Never Assessed Sex Assigned at Date Recorded Not on file documented as of this encounter Plan of Treatment Not on filedocumented as of this encounter Procedures Procedure Name Priority Date/Time Associated Diagnosis Comme nts LAB RESULT - HIM SCAN 03/30/2017 documented in this encounter Results LAB RESULT - HIM SCAN (03/30/2017) Narrative This result has an attachment that is no t available. Historical Provider MH NON-BEAKER LAB TESTING documented in this encounter Visit Diagnoses Not on filedocumented in this encounter Care Teams Employee Communications Specialist Relationship Specialty Start Date End Date Elyse Paredes MD PCP - General Family Practice 12/22/13 04/21/22 [address] [place], [place] [id number] documented as of this encounter
--- OUTSIDE RECORDS SUMMARY | 2022-07-02 13:46 | XMS_ITS | Encounter Summary ---
:1950 Author Organization [facility] Address [address] [place] [address] Care Team Providers Name Role Phone Elyse Paredes MD Primary Care Provider Encounter Details Date Type Department Care Team Description 12/25/2016 [facility] Provider, [address] [address] Social History Tobacco Use Types Packs/Day Years Used Date Smoking Tobacco: Never Assessed Sex Assigned at Date Recorded Not on file documented as of this encounter Plan of Treatment Not on filedocumented as of this encounter Visit Diagnoses Not on filedocumented in this encounter Care Teams Distribution Technician Relationship Specialty Start Date End Date Elyse Paredes MD PCP - General Family Practice 12/22/13 04/21/22 [address] [place], [place] [id number] documented as of this encounter
--- OUTSIDE RECORDS SUMMARY | 2022-07-02 13:46 | XMS_ITS | Encounter Summary ---
:1950 Author Organization [facility] Address [address] [place] [address] Care Team Providers Name Role Phone Elyse Paredes MD Primary Care Provider Encounter Details Date Type Department Care Team Description 08/08/2015 Records - [facility] CONVERSION Provider, Karthik raya Social History Tobacco Use Types Packs/Day Years Used Date Smoking Tobacco: Never Assessed Sex Assigned at Date Recorded Not on file documented as of this encounter Plan of Treatment Not on filedocumented as of this encounter Procedures Procedure Name Priority Date/Time Associated Comments Diagnosis LAB RESULT - HIM SCAN 08/08/2015 1:27 PM AIRCRAFT ENGINEER GYNECOLOGIC CYTOLOGY Routine 07/24/2015 2:01 PM R esults for this AIRCRAFT ENGINEER procedure are i n the results section. documented in this encounter Results LAB RESULT - HIM SCAN (08/08/2015 1:27 PM AIRCRAFT ENGINEER) Specimen (Source) Anatomical Location Collection Method / Collectio n Time Received Time / Laterality Volume Narrative This result has an attachment that is no t available. Historical Provider [facility] TESTING Gynecologic Cytology (PAP Smear) (07/24/2015 2:01 PM AIRCRAFT ENGINEER) Component Value Ref Test Analysis Performed At [facility] Range Method Time Signature Case Report Gynecologic Cytology Report ? Case: [id number] ? 08/08/2015 [facility] 1[facility]27 PM [facility] Authorizing Provider: ??Jimmy Paredes MD ?Ordering Provider: ?? Elyse Paredes MD ? AIRCRAFT ENGINEER [facility] First Screen: ? MACY Hamilton ? Collected: ? 07/24/2015 1401 ? L ABORATORY ? (ASCP) ? Rescreen: ?MACY Guy (ASCP) ?? Received: ?07/25/2015 1008 ? Specimen: ?SUREPATH PAP, SCREENING, Endocervical/cervical ? Interpretation Negative for squamous intraepithelial lesion or jonn gnancy 08/08/2015 [facility] at ??1:27 PM 1:27 PM [facility] Result Flag Normal Normal 08/08/2015 [facility] 1:[address] [facility] Specimen Adequacy Satisfactory for 08/08/2015 [facility] evaluation, 1:27 PM [facility] endocervical/bentley [facility] sformation zone LABORATORY component present Reflex Testing Yes if ASCUS 08/08/2015 [facility] 1:27 [address] [facility] High Risk? No 08/08/2015 [facility] 1:27 [address] [facility] LMP/Menopause Unknown 08/08/2015 [facility] Date 1:27 [address] [facility] Abnormal Bleeding No 08/08/2015 [facility] 1:[address] [facility] Patient Status N/A 08/08/2015 [facility] 1:27 [address] [facility] None 08/08/2015 [facility] Control/Hormones 1:27 PM [facility] Previous Normal 07/14/2010 08/08/2015 [facility] 1:27 PM [facility] Previous None 08/08/2015 [facility] Abnormal? 1:27 PM [facility] Cervical N/A 08/08/2015 [facility] Appearance 1:27 [address] [facility] Specimen Anatomical Collection Method Collection Time Receive d Time (Source) Location / / Volume Laterality Specimen of CERVIX UTERI 07/24/2015 2:01 PM 5 unknown material STRUCTURE / AIRCRAFT ENGINEER 10:08 AM CS T (specimen) Unknown Elyse GONZALEZ - JOS FOWLER Performing Organization Address City/State/ZIP Code Phon e Number [place] [address] [id number] documented in this encounter Visit Diagnoses Not on filedocumented in this encounter Care Teams Financial Developer Relationship Specialty Start Date End Date Reggie, Elyse Armas MD PCP - General Family Practice 12/22/13 04/21/22 [address] [address] documented as of this encounter
--- OUTSIDE RECORDS SUMMARY | 2022-07-02 13:46 | XMS_ITS | Encounter Summary ---
:1950 Author Organization [facility] Address [address] [place] [address] Care Team Providers Name Role Phone Elyse Paredes MD Primary Care Provider Encounter Details Date Type Department Care Team Description 08/09/2015 Hospital Encounter [facility] Kendrick Quiles T, Aortic stenosis [facility] Care [address], [address] [place] [address] [phone] Social History Tobacco Use Types Packs/Day Years Used Date Smoking Tobacco: Never Assessed Sex Assigned at Date Recorded Not on file documented as of this encounter Medications at Time of Discharge Medication Sig Dispensed Refills Start Date End Date LANTUS SOLOSTAR 100 [LANTUS SOLOSTAR 100 0 2014 unit/mL (3 mL) pen UNIT/ML (3 ML) PEN] 60 Units at bedtime. Last night 28u celecoxib (CELEBREX) 200 [CELECOXIB (CELEBREX) 0 05/20/2015 [...] Associated Diagnosis Comme nts ECHO COMPLETE Routine 08/09/2015 3:23 PM Aortic stenosis Resul ts for this NON DESTRUCTIVE EVALUATION SPECIALIST procedure are i n the results section . documented in this encounter Results Echocardiogram Complete (08/09/2015 3:23 PM NON DESTRUCTIVE EVALUATION SPECIALIST) Anatomical Region Laterality Modality Echocardiography Specimen (Source) Anatomical Collection Method Collection Time Re ceived Time Location / / Volume Laterality 08/09/2015 2:17 PM NON DESTRUCTIVE EVALUATION SPECIALIST Narrative This result has an attachment that is no t available. 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 Procedure Date Date: 08/09/2015 Start: 02:46 PM Study Location: [facility] Technical Quality: Adequate visualizatio n Patient Status: Routine Height: 62 inches Weight: 273.01 pounds BSA: 2.18 m^2 BMI: 49.93 kg/m^2 HR: 81 bpm BP: 124/78 mmHg Indications Aortic valve disorder. Conclusions Summary 1. Normal left ventricular size and sys tolic performance. The ejection fraction is estimated to be 65%. 2. Left ventricular wall thickness is m ildly increased. 3. There is mild-moderate aortic stenos is. When compared to the prior real-time ec hocardiogram dated 24 July 2013, there has been a slight increase in the mean gradient across the aortic valve from 18 mmHg to 24 mmHg. O therwise, there has been little appreciable interval change. Findings Left Ventricle Normal left ventricular size and systol ic performance. The ejection fraction is estimated to be 65%. The re gional wall motion appears normal. Left ventricular wall thickness is mild ly increased. Right Ventricle Normal right ventricular size and systo lic performance. Left Atrium The left atrium is borderline enlarged. Right Atrium The right atrium is normal in size. Great Vessels The aortic root is normal in size. Aortic Valve The aortic valve is not well visualized , but suspected to be comprised of three cusps. There is mild-moderate sheyla cification of the aortic valve. There is mild-moderate aortic stenosis. No aortic insufficiency is detected on this study. Mitral Valve The mitral valve is morphologically nor mal in appearance. There is trace mitral regurgitation. Tricuspid Valve The tricuspid valve is grossly normal. There is trace tricuspid regurgitation. Pulmonic Valve The pulmonic valve is grossly normal. Pericardial Effusion No significant pericardial effusion is detected. M-Mode/2D Measurements & Calculations LV Diastolic LV Systolic Dimension: 2.8 cm LA Dimension: 4.3 cmAO Dimension: 4.5 cm LV Volume Diastolic: 88 ml Root Dimension: 3.1 cm LV FS:37.8 % LV Volume Systolic: 32 ml LV PW Diastolic: LV EDV/LV EDV Index: 8 8 ml/40 1.4 cm m^2LV ESV/LV ESV Index: 32 Septum Diastolic: ml/15 m^2 1.2 cm EF Calculated: 63.6 % TAPSE:2.2 cm CO: 7.07 l/min LA/Aorta: 1.39 CI: 3.24 l/m*m^2 LV Length: 6.36 cm Asc ending Aorta: 3.3 cm LA volume/Index: 69.3 ml LV Area LVOT: 2 cm /32m^2 Diastolic: 22.1 cm^2 LV Area Systolic: 14.1 cm^2 Doppler Measurements & Calculations MV Peak E-Wave: 96.3 AV Peak Velocity: 321 LVOT Peak Velocity: 123 cm/s cm/s cm/s LVOT Mean Velocity: 76.7 cm/s MV Peak A-Wave: 112 AV Peak Gradient: L VOT Peak Gradient: 6 cm/s 41.22 mmHg mmHgLVOT Mean Gradient: 3 MV E/A Ratio: 0.86 AV Mean Velocity: 20 2 mmHg MV Peak Gradient: cm/s 3.71 mmHg AV Mean Gradient: 24 mmHg MV Deceleration Time: AV VTI: 65.1 cm 197 msec AV Area (Continuity):1.34 cm^2 MV E' Septal LVOT VTI: 27.8 cm Velocity: 8.58 cm/s MV E' Lateral Velocity: 8.29 cm/s E/E': 11.6 Signature Vamshi Quiles MD CV ECHO ORDERABLES documented in this encounter Visit Diagnoses Diagnosis Aortic stenosis Aortic valve disorders documented in this encounter Care Teams Assistant Professor Of Anthropology Relationship Specialty Start Date End Date Elyse Paredes MD PCP - General Family Practice 12/22/13 04/21/22 [address] [place] [address] documented as of this encounter
--- OUTSIDE RECORDS SUMMARY | 2022-07-02 13:46 | XMS_ITS | Encounter Summary ---
:1950 Author Organization [place] Address [address] [place] [address]. [place] [address] Care Team Providers Name Role Phone Dagmar Kang MD Unavailable Elyse Paredes MD Primary Care Provider Encounter Details Date Type Department Care Team Description 03/30/2017 Records - [facility] CONVERSION Provider, Karthik raya Social History Tobacco Use Types Packs/Day Years Used Date Smoking Tobacco: Never Assessed Sex Assigned at Date Recorded Not on file documented as of this encounter Plan of Treatment Not on filedocumented as of this encounter Visit Diagnoses Not on filedocumented in this encounter Care Teams Wheel Shop Supervisor Relationship Specialty Start Date End Date Elyse Paredes MD PCP - General Family Practice 12/22/13 04/21/22 [address] [place] [address] Dagmar Kang MD Assigned Heart and 02/14/21 02/27/22 [address] [facility] [address], Vascular Provider [address] [place] [address] documented as of this encounter
--- OUTSIDE RECORDS SUMMARY | 2022-07-02 13:46 | XMS_ITS | Encounter Summary ---
:1950 Author Organization [place] Address [address] [place] [address] Care Team Providers Name Role Phone Elyse Paredes MD Primary Care Provider Encounter Details Date Type Department Care Team Description 12/09/2016 [facility] Provider, Aortic jus [facility] [address] [address] Social History Tobacco Use Types Packs/Day Years Used Date Smoking Tobacco: Never Assessed Sex Assigned at Date Recorded Not on file documented as of this encounter Plan of Treatment Not on filedocumented as of this encounter Visit Diagnoses Diagnosis Aortic stenosis Aortic valve disorders documented in this encounter Care Teams Watch Inspector Final Movement Relationship Specialty Start Date End Date Elyse Paredes MD PCP - General Family Practice 12/22/13 04/21/22 1540 [place], [place] [id number] documented as of this encounter
--- OUTSIDE RECORDS SUMMARY | 2022-07-02 13:46 | XMS_ITS | Encounter Summary ---
:1950 Author Organization [place] Address [address] [place] [address] Care Team Providers Name Role Phone Elyse Paredes MD Primary Care Provider Encounter Details Date Type Department Care Team Description 12/25/2016 Ambulatory - [facility] [address] [place] [address] Social History Tobacco Use Types Packs/Day Years Used Date Smoking Tobacco: Never Assessed Sex Assigned at Date Recorded Not on file documented as of this encounter Plan of Treatment Not on filedocumented as of this encounter Procedures Procedure Name Priority Date/Time Associated Diagnosis Comme nts LAB RESULT - HIM SCAN 12/25/2016 documented in this encounter Results LAB RESULT - HIM SCAN (12/25/2016) Narrative This result has an attachment that is no t available. Historical Provider NON-BEAKER LAB TESTING documented in this encounter Visit Diagnoses Not on filedocumented in this encounter Care Teams Custom Wood Stair Builder Relationship Specialty Start Date End Date Elyse Paredes MD PCP - General Family Practice 12/22/13 04/21/22 1540 [place], [place] [id number] documented as of this encounter
--- OUTSIDE RECORDS SUMMARY | 2022-07-02 13:46 | XMS_ITS | Encounter Summary ---
:1950 Author Organization [place] Address [address] [place] [address] Care Team Providers Name Role Phone Elyse Paredes MD Primary Care Provider Encounter Details Date Type Department Care Team Description 09/04/2016 Ambulatory - [facility] Provider, Aortic jus [facility] [address] [address] Social History Tobacco Use Types Packs/Day Years Used Date Smoking Tobacco: Never Assessed Sex Assigned at Date Recorded Not on file documented as of this encounter Plan of Treatment Not on filedocumented as of this encounter Visit Diagnoses Diagnosis Aortic stenosis Aortic valve disorders documented in this encounter Care Teams Pharmacy Informatics Manager Relationship Specialty Start Date End Date Elyse Paredes MD PCP - General Family Practice 12/22/13 04/21/22 1540 [place], [place] [id number] documented as of this encounter
--- OUTSIDE RECORDS SUMMARY | 2022-07-02 13:46 | XMS_ITS | Encounter Summary ---
:1950 Author Organization [place] Address [address] [place] [address] Care Team Providers Name Role Phone Elyse Paredes MD Primary Care Provider Encounter Details Date Type Department Care Team Description 03/17/2017 Ambulatory - [facility] Provider, Aortic jus [facility] [address] [address] Social History Tobacco Use Types Packs/Day Years Used Date Smoking Tobacco: Never Assessed Sex Assigned at Date Recorded Not on file documented as of this encounter Plan of Treatment Not on filedocumented as of this encounter Visit Diagnoses Diagnosis Aortic stenosis Aortic valve disorders documented in this encounter Care Teams Accounts Payable Technician Relationship Specialty Start Date End Date Elyse Paredes MD PCP - General Family Practice 12/22/13 04/21/22 1540 [place], [place] [id number] documented as of this encounter
--- OUTSIDE RECORDS SUMMARY | 2022-07-02 13:46 | XMS_ITS | Encounter Summary ---
:1950 Author Organization [place] Address [address] [place] [address] Care Team Providers Name Role Phone Elyse Paredes MD Primary Care Provider Encounter Details Date Type Department Care Team Description [facility] [address] [phone] Social History Tobacco Use Types Packs/Day Years Used Date Smoking Tobacco: Never Assessed Sex Assigned at Date Recorded Not on file documented as of this encounter Plan of Treatment Not on filedocumented as of this encounter Procedures Procedure Name Priority Date/Time Associated Diagnosis Comme nts LIPID PROFILE Routine 01/21/2017 9:15 AM Results for this CDT procedure are i n the results section . documented in this encounter Results (ABNORMAL) Lipid Profile (01/21/2017 9:15 AM CDT) [facility] Time Signature Cholesterol 150 <=199 01/21/2017 [facility] mg/dL 4:20 PM T [facility] Triglycerides 136 <=149 01/21/2017 [facility] mg/dL 4:20 PM T [facility] Direct Measure HDL 45 (L) >=50 01/21/2017 [facility] mg/dL 4:20 PM T [facility] LDL Cholesterol 78 <=129 01/21/2017 [facility] Calculated mg/dL 4:20 PM CDT [facility] Patient Fasting > Yes 01/21/2017 [facility] 8hrs? 4:20 PM CDT [facility] Specimen Anatomical Collection Method Collection Time Receive d Time (Source) Location / / Volume Laterality Blood specimen 01/21/2017 9:15 AM 017 3:35 (specimen) CDT PM CDT Elyse Paredes MD LAB - BLOOD ORDERABLES Performing Organization Address City/State/[facility] Code Phon e Number [place] [address] [address] [facility] documented in this encounter Visit Diagnoses Not on filedocumented in this encounter Care Teams Nursing Coordinator Relationship Specialty Start Date End Date Elyse Paredes MD PCP - General Family Practice 12/22/13 04/21/22 [address] [place] [place] [address] documented as of this encounter
--- OUTSIDE RECORDS SUMMARY | 2022-07-02 13:46 | XMS_ITS | Encounter Summary ---
:1950 Author Organization [place] Address [address] [place] [address] Care Team Providers Name Role Phone Elyse Paredes MD Primary Care Provider Encounter Details Date Type Department Care Team Description 03/26/2017 Ambulatory - [facility] Provider, Aortic ailyn ve [facility] . Historical [address] [address] Social History Tobacco Use Types Packs/Day Years Used Date Smoking Tobacco: Never Assessed Sex Assigned at Date Recorded Not on file documented as of this encounter Plan of Treatment Not on filedocumented as of this encounter Visit Diagnoses Diagnosis Aortic valve stenosis Aortic valve disorders documented in this encounter Care Teams Social Service Agency Director Relationship Specialty Start Date End Date Elyse Paredes MD PCP - General Family Practice 12/22/13 04/21/22 1540 [place], [place] [id number] documented as of this encounter
--- OUTSIDE RECORDS SUMMARY | 2022-07-02 13:47 | XMS_ITS | Encounter Summary ---
:1950 Author Organization [place] Address [address] [place] [address] Care Team Providers Name Role Phone Elyse Paredes MD Primary Care Provider Encounter Details Date Type Department Care Team Description 01/07/2010 Records - [facility] Martin Goodman MD [facility] [address] [facility] [address] [place] [address] [place] [address] [phone] Social History Tobacco Use Types Packs/Day Years Used Date Smoking Tobacco: Never Assessed Sex Assigned at Date Recorded Not on file documented as of this encounter Plan of Treatment Not on filedocumented as of this encounter Procedures Procedure Name Priority Date/Time Associated Diagnosis Comme nts HEMOGLOBIN A1C Routine 01/08/2010 6:34 AM Results for this CDT procedure are i n the results section . documented in this encounter Results (ABNORMAL) Hemoglobin A1c (01/08/2010 6:34 AM CDT) Analysis Performed At [facility]o logist Time Signature Hemoglobin A1C 7.5 (H) 4.2 - 6.1 01/08/2010 [facility] 9:11 AM CDT [facility] Specimen Anatomical Collection Method Collection Time Receive d Time (Source) Location / / Volume Laterality 01/08/2010 6:34 AM 0 4:00 CDT AM CDT Martin Rodriguez MD LAB - BLOOD ORDERABLES Performing Organization Address City/State/ZIP Code Ph[place] [address] [facility] [address] [facility] documented in this encounter Visit Diagnoses Not on filedocumented in this encounter Care Teams Bullet Swaging Machine Operator Relationship Specialty Start Date End Date Elyse Paredes MD PCP - General Family Practice 12/22/13 04/21/22 [address] [place] [address] documented as of this encounter
--- OUTSIDE RECORDS SUMMARY | 2022-07-02 13:47 | XMS_ITS | Encounter Summary ---
:1950 Author Organization [place] Address [address] [place] [address] Care Team Providers Name Role Phone Elyse Paredes MD Primary Care Provider Encounter Details Date Type Department Care Team Description 03/18/2015 [facility] [address] [phone] Social History Tobacco Use Types Packs/Day Years Used Date Smoking Tobacco: Never Assessed Sex Assigned at Date Recorded Not on file documented as of this encounter Plan of Treatment Not on filedocumented as of this encounter Procedures Procedure Name Priority Date/Time Associated Diagnosis Comme nts LIPID PROFILE Routine 03/18/2015 9:45 AM Results for this CDT procedure are i n the results section . documented in this encounter Results Lipid Profile (03/18/2015 9:45 AM CDT) [facility] Method Time Signature Cholesterol 144 <=199 03/18/2015 [facility] mg/dL 4:33 PM CDT [facility] Triglycerides 131 <=149 03/18/2015 [facility] mg/dL 4:33 PM T [facility] Direct Measure HDL 53 >=40 mg/dL 03/18/2015 [facility] 4:33 PM T [facility] LDL Cholesterol 65 0 - 129 03/18/2015 [facility] Calculated mg/dL 4:33 PM CDT [facility] Patient Fasting > Yes 03/18/2015 [facility] 8hrs? 4:33 PM CD[facility] Specimen Anatomical Collection Method Collection Time Receive d Time (Source) Location / / Volume Laterality Blood specimen 03/18/2015 9:45 AM 015 3:34 (specimen) CDT PM CDT Elyse Paredes MD LAB - BLOOD ORDERABLES Performing Organization Address City/State/ZIP Code [place] [address] [phone] [address] [facility] documented in this encounter Visit Diagnoses Not on filedocumented in this encounter Care Teams Surgical Oncologist Relationship Specialty Start Date End Date Elyse Paredes MD PCP - General Family Practice 12/22/13 04/21/22 1540 [place] [address] documented as of this encounter
--- OUTSIDE RECORDS SUMMARY | 2022-07-02 13:47 | XMS_ITS | Encounter Summary ---
:1950 Author Organization [place] Address [address] [place] [address] Care Team Providers Name Role Phone Dagmar Kang MD Unavailable Elyse Paredes MD Primary Care Provider Encounter Details Date Type Department Care Team Description 12/22/2013 Records - [facility] CONVERSION Scan, Provider Social History Tobacco Use Types Packs/Day Years Used Date Smoking Tobacco: Never Assessed Sex Assigned at Date Recorded Not on file documented as of this encounter Plan of Treatment Not on filedocumented as of this encounter Visit Diagnoses Not on filedocumented in this encounter Care Teams Osd Clerk Relationship Specialty Start Date End Date Elyse Paredes MD PCP - General Family Practice 12/22/13 04/21/22 1540 [place] [address] Dagmar Kang MD Assigned Heart and 02/14/21 02/27/[address], Vascular Provider [address] [place] [address] documented as of this encounter
--- OUTSIDE RECORDS SUMMARY | 2022-07-02 13:47 | XMS_ITS | Encounter Summary ---
:1950 Author Organization [place] Address [address] [place] [address] Care Team Providers Name Role Phone Elyse Paredes MD Primary Care Provider Encounter Details Date Type Department Care Team Description 03/19/2014 Records - [facility] [address] [phone] [phone] Social History Tobacco Use Types Packs/Day Years Used Date Smoking Tobacco: Never Assessed Sex Assigned at Date Recorded Not on file documented as of this encounter Plan of Treatment Not on filedocumented as of this encounter Procedures Procedure Name Priority Date/Time Associated Diagnosis Comme nts LIPID PROFILE Routine 03/19/2014 8:47 AM Results for this CDT procedure are i n the results section . documented in this encounter Results Lipid Profile (03/19/2014 8:47 AM CDT) [facility] Method Time Signature Cholesterol 155 <=199 03/19/2014 [facility] mg/dL 1:58 PM CDT [facility] Triglycerides 121 <=149 03/19/2014 [facility] mg/dL 1:58 PM T [facility] Direct Measure HDL 55 >=40 mg/dL 03/19/2014 [facility] 1:58 PM T [facility] LDL Cholesterol 76 0 - 129 03/19/2014 [facility] Calculated mg/dL 1:58 PM [facility] Specimen Anatomical Collection Method Collection Time Receive d Time (Source) Location / / Volume Laterality Blood specimen 03/19/2014 8:47 AM 014 1:07 (specimen) CDT PM CDT Elyse Paredes MD LAB - BLOOD ORDERABLES Performing Organization Address City/State/ZIP Code Phon [place] [address] [phone] [address] [facility] documented in this encounter Visit Diagnoses Not on filedocumented in this encounter Care Teams Extrusion Press Operator Relationship Specialty Start Date End Date Elyse Paredes MD PCP - General Family Practice 12/22/13 04/21/22 1540 [place] [address] documented as of this encounter
--- OUTSIDE RECORDS SUMMARY | 2022-07-02 13:47 | XMS_ITS | Encounter Summary ---
:1950 Author Organization [place] Address [address] [place] [address] Care Team Providers Name Role Phone Elyse Paredes MD Primary Care Provider Reason for Visit Reason Comments Patient Request Encounter Details Date Type Department Care Team Description 07/24/2015 Communication - [facility] Provider, Patient Request [address] [place] [address] Social History Tobacco Use Types Packs/Day Years Used Date Smoking Tobacco: Never Assessed Sex Assigned at Date Recorded Not on file documented as of this encounter Plan of Treatment Not on filedocumented as of this encounter Visit Diagnoses Not on filedocumented in this encounter Care Teams Slurry Control Operator Helper Relationship Specialty Start Date End Date Elyse Paredes MD PCP - General Family Practice 12/22/13 04/21/22 1540 [place] [address] documented as of this encounter
--- OUTSIDE RECORDS SUMMARY | 2022-07-02 13:47 | XMS_ITS | Encounter Summary ---
:1950 Author Organization [place] Address [address] [place] [address] Care Team Providers Name Role Phone Elyse Paredes MD Primary Care Provider Encounter Details Date Type Department Care Team Description 07/25/2015 [facility] [address] [place] [address] Social History Tobacco Use Types Packs/Day Years Used Date Smoking Tobacco: Never Assessed Sex Assigned at Date Recorded Not on file documented as of this encounter Plan of Treatment Not on filedocumented as of this encounter Visit Diagnoses Diagnosis Aortic stenosis Aortic valve disorders documented in this encounter Care Teams Pound Attendant Relationship Specialty Start Date End Date Elyse Paredes MD PCP - General Family Practice 12/22/13 04/21/22 1540 [place] [address] documented as of this encounter
--- OUTSIDE RECORDS SUMMARY | 2022-07-02 13:47 | XMS_ITS | Encounter Summary ---
:1950 Author Organization [place] Address [address] [place] [address] Care Team Providers Name Role Phone Elyse Paredes MD Primary Care Provider Encounter Details Date Type Department Care Team Description 12/08/2013 Records - [facility], [address] [address] Social History Tobacco Use Types Packs/Day Years Used Date Smoking Tobacco: Never Assessed Sex Assigned at Date Recorded Not on file documented as of this encounter Plan of Treatment Not on filedocumented as of this encounter Procedures Procedure Name Priority Date/Time Associated Comments Diagnosis MR MYOCARDIUM Routine 12/08/2013 12:00 AM Results for this OVERREAD CDT procedure are i n the results section. MR CARDIAC W Routine 12/08/2013 12:00 AM Results for this CONTRAST CDT procedure are i n the results section. MRA CHEST W/O & W Routine 12/08/2013 12:00 AM Res ults for this CONTRAST CDT procedure are i n the results section. documented in this encounter Results MR MYOCARDIUM OVERREAD (12/08/2013 12:00 AM CDT) Anatomical Region Laterality Modality Other Specimen (Source) Anatomical Location Collection Method / Collectio n Time Received Time / Laterality Volume Narrative 12/08/2013 12:00 AM CDT See Historical Hospital Medical Record f or documentation Procedure Note Provider, Historical - 01/04/2021Formatt ing of this note might be different from the original. See Historical Hospital Medical Record f or documentation Historical Provider IMG MRI ORDERABLES MRA Chest wo & w Contrast (12/08/2013 12:00 AM CDT) Anatomical Region Laterality Modality Chest, SUBRAD MR BODY, UMP MR MRA, RAD MR Other Specimen (Source) Anatomical Location Collection Method / Collectio n Time Received Time / Laterality Volume Narrative 12/08/2013 12:00 AM CDT See Historical Hospital Medical Record f or documentation Procedure Note Provider, Historical - 01/04/2021Formatt ing of this note might be different from the original. See Historical Hospital Medical Record f or documentation Historical Provider IMG MRI ORDERABLES MR Cardiac with Contrast (12/08/2013 12:00 AM CDT) Anatomical Region Laterality Modality Cardio, SUBRAD MR BODY, UMP MR CHEST Oth er Specimen (Source) Anatomical Location Collection Method / Collectio n Time Received Time / Laterality Volume Narrative 12/08/2013 12:00 AM CDT See Historical Hospital Medical Record f or documentation Procedure Note Provider, Historical - 01/04/2021Formatt ing of this note might be different from the original. See Historical Hospital Medical Record f or documentation Historical Provider IMG MRI ORDERABLES documented in this encounter Visit Diagnoses Not on filedocumented in this encounter Care Teams Retail And Promotions Coordinator Relationship Specialty Start Date End Date Elyse Paredes MD PCP - General Family Practice 12/22/13 04/21/22 1540 [place] [address] documented as of this encounter
--- OUTSIDE RECORDS SUMMARY | 2022-07-02 13:47 | XMS_ITS | Encounter Summary ---
:1950 Author Organization [place] Address [address] [place] [address] Care Team Providers Name Role Phone Elyse Paredes MD Primary Care Provider Encounter Details Date Type Department Care Team Description 01/09/2014 [facility] Left renal mass [facility] Ultrasound [address], [address] [place] [address] [phone] Social History Tobacco Use Types Packs/Day Years Used Date Smoking Tobacco: Never Assessed Sex Assigned at Date Recorded Not on file documented as of this encounter Plan of Treatment Not on filedocumented as of this encounter Procedures Procedure Name Priority Date/Time Associated Diagnosis Comme nts US RENAL COMPLETE Routine 01/09/2014 10:11 AM Disorder of kidn ey Results for this NON-VASCULAR CDT and ureter procedure are i n the results section. documented in this encounter Results US Renal Complete (01/09/2014 10:11 AM CDT) Anatomical Region Laterality Modality Abdomen/Pelvis Other Specimen (Source) Anatomical Location Collection Method / Collectio n Time Received Time / Laterality Volume Impressions 01/09/2014 10:25 AM CDT CONCLUSION: 1. ??The mass described on the MRI repor t corresponds to a large simple cyst in the lower pole of the left kidney measuring 5.6 cm in greatest diameter. 2. ??The ultrasound is otherwise normal. Narrative 01/09/2014 10:25 AM CDT US KIDNEY BILATERAL WITH BLADDER 01/09/2014 10:11 AM INDICATION: Left renal mass seen on MRI. TECHNIQUE: Routine kidneys and bladder. COMPARISON: The MRI study from 4. FINDINGS: Right kidney measures 10.9 x 5.2 x 5.6 c m. No hydronephrosis. No mass. Normal renal echotexture. Left kidney measures 11.1 x 6.3 x 7.4 cm . No hydronephrosis. Normal renal echotexture. There is a partially exophytic anechoic avascular cyst within the lower pole which measures 5.2 x 5.1 x 5.6 cm. Bladder is normal. Procedure Note Lenny Estrella MD - 01/04/2021 US KIDNEY BILATERAL WITH BLADDER 01/09/2014 10:11 AM INDICATION: Left renal mass seen on MRI. TECHNIQUE: Routine kidneys and bladder. COMPARISON: The MRI study from 4. FINDINGS: Right kidney measures 10.9 x 5.2 x 5.6 c m. No hydronephrosis. No mass. Normal renal echotexture. Left kidney measures 11.1 x 6.3 x 7.4 cm . No hydronephrosis. Normal renal echotexture. There is a partially exophytic anechoic avascular cyst within the lower pole which measures 5.2 x 5.1 x 5.6 cm. Bladder is normal. IMPRESSION: CONCLUSION: 1. The mass described on the MRI report corresponds to a large simple cyst in the lower pole of the left kidney measuring 5.6 cm in greatest diameter. 2. The ultrasound is otherwise normal. Vamshi Quiles MD IMG US ORDERABLES documented in this encounter Visit Diagnoses Diagnosis Left renal mass Unspecified disorder of kidney and urete r documented in this encounter Care Teams Manager Category Relationship Specialty Start Date End Date Elyse Paredes MD PCP - General Family Practice 12/22/13 04/21/22 [address] [place] [address] documented as of this encounter
--- OUTSIDE RECORDS SUMMARY | 2022-07-02 13:49 | XMS_ITS | Encounter Summary ---
:1950 Author Organization [employer] Address [address] [place] [id number] Care Team Providers Name Role Phone Elyse Paredes MD Primary Care Provider Reason for Visit Reason Comments Refill metoprolol succinate (TOPROL XL) 25 MG 24 hour release tablet [Pharmacy Med Name: METOPROLOL ER SUCCINAT E 25MG TABS] Encounter Details Date Type Department Care Team Description 02/19/2022 Refill [facility] [address], Refill (metoprolol [facility] succinate (TOPROL XL) [address] 25 [place] 24 [place] [address] [address] [place], [place] tablet [Pharmacy Med [phone] Name: METOPROLOL ER [phone] (Wo rk) SUCCINATE 25MG TABS]) Social History Tobacco Use Types Packs/Day Years Used Date Smoking Tobacco: Former Cigarettes Quit : 08/02/1981 Smokeless Tobacco: Never Alcohol Use Standard Drinks/Week Comments No 0 (1 standard drink = 0.6 oz pure alcoho l) Sex Assigned at Date Recorded Not on file documented as of this encounter Progress Notes Jacquelyn Fried RN - 06/02/2022 4:49 PM CDT Addended by: JACQUELYN FRIED on: 06/02/2022 04:49 PM Modules accepted: Orders documented in this encounter Nursing Notes Ron Cota - 04/14/2022 11:39 AM CDT Medication Refill - Overdue Visit Called patient, was: Successful in reaching patient We recently received a refill request on one of your medications. Your clinician would like to see you for a(n): office visit Patient declined to schedule due to: Pt moved to [place] and has a new Decontaminator. Pt would like Dr Zaragoza to know Thank you verymuch for the care and you are a great Doctor! Please route to: (HP) Care Team Pool/ (PN) Clinician Raffy Garcia RN - 02/20/2022 2:54 PM CDT Further Assistance Needed on Refill from Launch Check Out Patient is overdue for Office visit. Please call patient to schedule a Office/Video Visit and document using .ADRIANA. After attemptingto schedule patient: If appointment scheduled: Please route to: Refill Wizard Admin- [email or web address] ([id number]) If unable to schedule appointment: Please route to: Elyse Paredes MD Requested Prescriptions Pending Prescriptions Disp Refills metoprolol succinate (TOPROL XL) 25 MG 24 hour release tablet [Pharmacy Med Name: METOPROLOL ER SUCCINATE 25MG TABS] 90 Tablet 0 Sig: TAKE 1 TABLET BY MOUTH DAILY CA team, Please help call patient to schedule an appointment with us. Please route back to care team once patient has scheduled. RN to refill. Thank you!! Garfield Akbar RN Interface, Out Surescripts Prov Query - 02/19/2022 6:14 AM CDT metoprolol succinate (TOPROL XL) 25 MG 24 hour release tablet [Pharmacy Med Name: METOPROLOL ER SUCCINATE 25MG TABS] Cardiovascular - Beta Blockers -> DBP, Heart Rate, and SBP are overdue (performed 29 months ago, required every 12 months) Last qualifying visit: 03/17/2021 (in Endocrinology with JUAN ZARAGOZA) Next scheduled visit: None Last ordered by JUAN ZARAGOZA: 11/27/2021 (84 days ago) QTY: 90, Refills: 0, Sig: take 1 tablet by mouth daily (unchanged) SBP: 126 mm Hg on 10/06/2019 DBP: 67 mm Hg on 10/06/2019 Heart Rate: 81 bpm on 10/06/2019 [employer] Embedded Refills, Reference: [id number], 02/19/2022 6:14:51 AM CDT, Pool: ENDO REFILL RN ([id number]) documented in this encounter Plan of Treatment Upcoming Encounters Date Type Specialty Care Team Description 08/13/2022 Appointment Radiology Denise Aguirre APRN, DRY ROOM ATTENDANT [address] [place], [place] [address] (Wo rk) 08/13/2022 Appointment Hematology and Oncology Denise Aguirre APRN, DRY ROOM ATTENDANT [address] [place], [place] [address] (Wo rk) documented as of this encounter Goals Goal Patient Goal Associated Recent Patient-Stated? Author Type Problems Progress Being active Diabetes Diabetes No Tere Education Education Tanner Ng RD, CDE Note: Formatting of this note might be d ifferent from the original. Being Active: Continue with Cardiac Reha b, 3 days per week, and work on gradually increasing your daily exercise on other days. Eating healthy Diabetes Education Diabetes Education No Tanner Carranza, RD, CDE Note: Formatting of this note might be d ifferent from the original. Eating Healthy: Try and limit 30-45 gram s carb per meal and 15 grams carb per snack. Work on healthy evening snack, such as r aw carrots or fresh fruit or low fat yogurt. Monitoring my Diabetes Education Diabetes Education No Tanner Carranza, diabetes RD, CDE Note: Formatting of this note might be d ifferent from the original. Monitoring My Diabetes: Continue to chec k blood sugars before each meal and bedtime. documented as of this encounter Visit Diagnoses Diagnosis Obesity, unspecified classification, uns pecified obesity type, unspecified whether serious comorbidity present (HRC) documented in this encounter Care Teams Storage Wharfage Clerk Relationship Specialty Start Date End Date Elyse Paredes MD PCP - General Family Practice 03/19/17 [address] [place] [address] documented as of this encounter
--- OUTSIDE RECORDS SUMMARY | 2022-07-02 13:49 | XMS_ITS | Continuity of Care Document ---
:1950 Author Organization [facility] Address [address] [address] [place] [address] Phone Care Team Providers Name Role Phone Falguni Mccain MD Unavailable Unavailable Allergies, Adverse Reactions, Alerts Substance Reaction Status Criticality erythromycin base Rash Active No Information Medications Medication Instructions Dosage Effective Dates Status Comment s (start - stop) metformin 500 mg tablet take 2 Tablet by 2 Tablet - Act aisha Oral route 2 times every day hydrochlorothiazide 50 mg take 1 tablet by 50 MG - A ctive tablet oral route every day Celebrex 200 mg capsule take 1 capsule by 200 MG - Ac tive oral route every day sertraline 100 mg tablet take 1 tablet by 100 MG - Ac tive oral route every day Crestor 10 mg tablet take 1 tablet by 10 MG - Active oral route every day losartan 25 mg tablet take 1 Tablet by 25 MG - Activ e oral route every day Insulin unknown Use as directed - Active aspirin 81 mg Chewable Tab Take 1 tablet by - Act aisha mouth daily Procedures Procedure Date Colonoscopy Flex; Dx (sep Pro) Colorectal Ca Screen Hi Risk I Colonoscopy Flex; W/remov Les- Colonoscopy W/Submucosal Injection Level Iv-surg Path Gross/micro Colonoscopy Flex; W/remov Les- Level Iv-surg Path Gross/micro Advance Directives Directive Yes / No Effective Date File Name No Information Encounters Encounter Practice Location Reason(s) Diagnoses Date Provider Provide rs Description For Visit Copied on Encounter [facility] No Information Kalyn CLE[facility] 0 [facility], Center 0 . [address] [address], [address] [facility] [place], [place], [place], [address], [id number], [place], tel:+ [phone] , [place]. tel: [phone] [facility] No Information Sep- Kalyn CLEMENTS Refe [facility] 0 [place] Provider: [facility], 0 . [address] [place], [address], [address] [facility] [place], [place], [place], [address] [id number], [place], [place], [place], [address]. tel:+ [phone] tel:[phone] , [place]. [id number] tel:[phone] [facility] History of colon Nov-2 Bruce [facility] polyps . [facility], [address] [facility] [address], [address] [facility] [place], [place], [place], [address], [id number], [place], tel: [phone] , [place]. tel: [phone] [facility] No Information Jun-[address] [facility] . Provider: [facility] [place], [address] [place], [address], [address] [facility] [place], [place], [place], [address] [id number], [place], [place], [place], [address]. tel:+ [phone] tel:[phone] , [place]. [id number] tel:[phone] [facility] [place] No Information Apr- Clark[facility], Endoscopy [address] [address], [address] [facility] [address] [place], [place], [place], [place] [id number], [address], [place] tel:+ [place], [place], [id number] , [place]. tel:[phone] [facility] Polyp-intes/rect/st Oct-0 Dagmar CLEMENTS [facility] BehColon [address]. Prov ider: [facility], Center Cancer [address] [facility] [place] [address] [place], [place], [place], NosHemorrhoids [address] [id number], [place]verticulosis [place], [place], [place], [address]. tel: [phone] tel:[phone] , [place]. [id number] tel: [phone] [facility] [place] Polyp-intes/rect/st May- Giancarlo CLEMENTS Referring [facility] BehDigestive [address]. Pr ovider: [facility], Endoscopy Neoplasm 8 [address] [facility] [place], [address], [address] [place] Polyps[place]verticulosi [place], [place], [place], s Of [place] [address] [id number], [place], [place], [place], [address]. tel: [phone] tel:[phone] , [place]. [id number] tel: [phone] [facility] No Information Jul- Giancarlo CLEMENTS Refer ring Digestive [facility] [address]. Provider: [facility], Endoscopy 4 [address] [facility] [place], [address], [address] [place], [place], [place], [address] [id number], [place], [place], [place], [address]. tel: [phone] tel:[phone] , [place]. [id number] tel: [phone] Family History Family Member Type Diagnosis Age At Onset No Information Immunizations Vaccine Date Status Comments zoster vaccine recombinant administered Note: [facility] bi-directional interface ; Sour ce: Other Registry Pneumovax administered Note: [facility] bi-di rectional interface ; Sour ce: Other Registry Seasonal trivalent influenza administered Not e: [facility] bi-directional vaccine, adjuvanted, interface ; Source: Other preservative free Registry zoster vaccine recombinant administered Note: [facility] bi-directional interface ; Sour ce: Other Registry Seasonal trivalent influenza administered Not e: [facility] bi-directional vaccine, adjuvanted, interface ; Source: Other preservative free Registry Prevnar 13 administered Note: [facility] bi-di rectional interface ; Sour ce: Other Registry influenza virus vaccine, administered Note: M [facility] bi-directional unspecified formulation interfac e ; Source: Other Registry Influenza administered Note: [facility] bi-di rectional interface ; Sour ce: Other Registry Influenza administered Note: [facility] bi-di rectional interface ; Sour ce: Other Registry zoster vaccine, live administered Note: [facility] bi-directional interface ; Sour ce: Other Registry Influenza administered Note: [facility] bi-di rectional interface ; Sour ce: Other Registry Influenza, seasonal, injectable administered Note: [facility] bi-directional interface ; Sour ce: Other Registry Influenza, seasonal, injectable administered Note: [facility] bi-directional interface ; Sour ce: Other Registry tetanus toxoid, reduced administered Note: [facility] bi-directional diphtheria toxoid, and acellular interface ; Source: Other pertussis vaccine, adsorbed Rena stry Influenza, seasonal, injectable administered Note: [facility] bi-directional interface ; Sour ce: Other Registry Pneumovax 23 administered Note: [facility] bi-di rectional interface ; Sour ce: Other Registry Influenza, seasonal, injectable administered Note: [facility] bi-directional interface ; Sour ce: Other Registry Influenza, seasonal, injectable administered Note: [facility] bi-directional interface ; Sour ce: Other Registry Influenza, seasonal, injectable, administered Note: [facility] bi-directional preservative free interface ; So urce: Other Registry Influenza, seasonal, injectable administered Note: [facility] bi-directional interface ; Sour ce: Other Registry tetanus and diphtheria toxoids, administered Note: [facility] bi-directional adsorbed, preservative free, for interface ; Source: Other adult use (5 Lf of tetanus Kalpesh try toxoid and 2 Lf of diphtheria toxoid) tetanus and diphtheria toxoids, administered Note: [facility] bi-directional adsorbed, preservative free, for interface ; Source: Other adult use (5 Lf of tetanus Kalpesh try toxoid and 2 Lf of diphtheria toxoid) Payers Payer name Insurance type Covered libertarian ID Authorization(s ) No Information Social History Type Description Quantity Date Captured Comments Sex Female Smoking Status No Information Chief Complaint And Reason For Visit No Information Reason For Referral Reason For Referral No Information Plan Of Treatment Date Type Action Status Referral Ordered: ordered Colonoscopy Appointment date/timeframe: 10/10/2019 History Of Present Illness Encounter Date Complaint History Of Present I llness No Information Functional Status Date Functional Assessment No Information Instructions Date Instruction Additional Informati on No Information Assessments Type Assessment Date No Information Patient Care Teams Name Effective Dates (start - stop) Status M eliel No Information
--- OUTSIDE RECORDS SUMMARY | 2022-07-02 13:49 | XMS_ITS | Encounter Summary ---
:1950 Author Organization [facility] Address [address] [place] [address] Care Team Providers Name Role Phone Elyse Paredes MD Primary Care Provider Reason for Referral Procedure/Equipment (Routine) - Incomplete Specialty Diagnoses / Procedures Referred By Contact Refer red To Contact Diagnoses Malignant neoplasm of overlapping sites of left breast in female, estrogen receptor positive (HRC) Denise Aguirre APRN, Procedures MM Mammogram Screening Bilat W 3D Bravo W CAD COMMERCIAL ART INSTRUCTOR [address] [place] [id number] Referral ID Status Reason Start Date Expiration Date Visits V isits Requested Authorized [id number] Incomplete 01/29/2022 04/30/2023 1 1 Reason for Visit Reason Comments Follow-up Malignant neoplasm of overla pping sites of left breast in female Encounter Details Date Type Department Care Team Description 01/29/2022 Office Visit [facility] Cancer Denise Aguirre alignant neoplasm Center at [facility] GRIFFIN John, COMMERCIAL ART INSTRUCTOR of overlapping sites Hospital [address] [place] [address] of left breast in [address] [place] [address] female, [place] [phone] receptor positive [phone] (HRC) (Primary Dx) (Work) Social History Tobacco Use Types Packs/Day Years Used Date Smoking Tobacco: Former Cigarettes Quit : 08/02/1981 Smokeless Tobacco: Never Alcohol Use Standard Drinks/Week Comments No 0 (1 standard drink = 0.6 oz pure alcoho l) Sex Assigned at Date Recorded Not on file documented as of this encounter Last Filed Vital Signs Vital Sign Reading Time Taken Comments Blood Pressure 126/60 01/29/2022 1:08 PM CDT Pulse 77 01/29/2022 1:08 PM CDT Temperature 36.2 ??C (97.1 ??F) 01/29/2022 1:04 PM CDT Respiratory Rate 18 01/29/2022 1:04 PM CDT Oxygen Saturation 98% 01/29/2022 1:04 PM CDT Inhaled Oxygen Concentration - - Weight 121.1 kg (267 lb) 01/29/2022 1:04 PM CDT Height 158.8 cm (5' 2.5) 01/29/2022 1:04 PM CDT Body Mass Index 48.06 01/29/2022 1:04 PM CDT documented in this encounter Patient Instructions Patient InstructionsGolden Patel - 01/29/2022 1:07 PM CDT Dear Marci, It was so nice to see you today! Plan: Continue tamoxifen 20 mg daily -> Plan is for a total of 5 years of endocrine therapy (January 2024). Continue annual pelvic exam through PCP to screen for tamoxifen induced endometrial cancer. Annual Eye examination. Continue warfarin to maintain INR between 2-3. Monitor INR more closely as tamoxifen increases the potency of warfarin, so the INR may be higher. Calcium 1200 mg and vitamin D 1000 units per day through diet and supplement. Return to see me in 6 months with mammogram prior and interval H&P (ordered) Call with any questions or concerns. The clinic phone number is [phone]. After hours, please call the nurse care line at [phone]. Denise Hernandez APRN, SPECIAL PROCEDURES NURSE-[facility] - Mammogram is scheduled on 08/13/22 @12:40pm at [facility]. Do not wear any lotions, powders, or deodorants to this visit. After mammogram, please proceed to [facility] for a follow-up with Daniela @1:30pm. Jonahtan Toney 1:37 PM 01/29/22 REMINDER! If you are not feeling well please call before you come to the clinic. documented in this encounter Progress Notes Denise Aguirre, PYROMETER OPERATOR, COMMERCIAL ART INSTRUCTOR - 01/29/2022 1:00 PM CDT [facility] Oncology/Hematology Follow up Visit Note Date of Service: 01/29/2022 Cancer Summary (Printed and given to the patient): Diagnosis, Stage, Prognostic Factors: ?? 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 ?? Oncotype DX recurrence score: 10 (low), estimated 10-year risk of distant recurrence of 3% with adjuvant endocrine therapy without any incremental benefit of adjuvant chemotherapy. Intent of Therapy: Curative (explained to the patient on 09/30/2018). Guidelines used for treatment: National Comprehensive Cancer Network (NCCN). Treatment: 09/16/2018: Left partial mastectomy and sentinel lymph node sampling. 11/18/2018 to 12/02/2018: Adjuvant breast radiation. Radiation Therapy Treatment Summary 12/02/2018 Site of Radiation Left Breast Modality 3D Energy 10X Number of Fractions 16 Radiation Total Dosage (cGy) 4256 Treatment Start Date 11/08/2018 Treatment End Date 11/29/2018 Intent of Treatment Curative 2nd Site of Radiation Left Breast Boost Modality Site2 3D Energy site2 10X Site2 Number of Fractions 3 Site2 Radiation Total Dosage 750 Site2 Treatment Start Date 11/30/2018 Site2 Treatment End Date 12/02/2018 ?? 12/09/2018: Adjuvant endocrine therapy was discussed, however, due to her obesity, uncontrolled diabetes, risk of adjuvant endocrine therapy induced weight gain, and estimated absolute benefit of approximately 3 percent with adjuvant endocrine therapy in reducing the risk of distant recurrence of her breast cancer, she decided to starting adjuvant endocrine therapy at least for a couple of months. ?? 02/10/2019 to 01/19/2020: Anastrozole 1 mg daily. Discontinued due to severe arthralgias, myalgias,disturbed sleep and fatigue impairing her quality of life. ?? 01/19/2020: Started tamoxifen 20 mg daily. Interval History: Marci Diaz returns to clinic for an interval H&P and breast examination. She recently relocated to [facility] in January of this year. She continues on the tamoxifen and overall tolerating well. She denies any new swelling in her extremities or calf tenderness. She continues on warfarin and her INR has been therapeutic. She called in to clinic in early December her port she felt a firm lump in her right breast surrounded by an area of ecchymosis. She is on warfarin in realized that she had been reaching into her washing machine and putting all of her weight on her right breast to pull her clothes out of her washing machine. As a resultshe developed a hematoma. It took 2 weeks for the hematoma to resolve and she has not had any other issues. She denies any significant hot flashes, vaginal dryness, visual changes, or mood changes. She denies any new palpable lumps/bumps, new coughing, worsening of her baseline shortness of breath, unintentional weight loss or new pain in her bones. ROS: Full 10 point review of systems was performed and was negative unless specified in HPI and as follows. ECOG performance status: 0. I have personally reviewed the patient's allergies, medications, past medical history, problem list and lab results in detail and updated the patient record as necessary. Physical Exam: BP (!) 140/62 (BP Location: Right Arm, BP Cuff Size: Large) Pulse 84 Temp 97.1 ??F (36.2 ??C) (Temporal Artery) Resp 18 Ht 5' 2.5 (1.588 m) Wt 267 lb (121.1 kg) SpO2 98% BMI 48.06 kg/m?? General: Well-developed, NAD Cardiovascular: RRR. S1 S2 w/o r/m/g. No JVD. Pulmonary: CTAB. No adventitious lung sounds. Abdominal: BS x 4. Obes. No tenderness with palpation. No distention, palpable masses. No HSM. Musculoskeletal/Extremities: No significant deformity or joint abnormality. No spinal tenderness. Noperipheral edema. Lymphatic: No cervical, supraclavicular, axillary or inguinal adenopathy. Skin: Skin normal color, texture and turgor with no lesions or eruptions. Neurologic: Speech clear, gait stable. Psychiatric: A&O x 3. Mood and affect appropriate. Good judgment and insight. Assessment: A 71 y.o. lady with postmenopausal stage I, hormone receptor positive, HER- 2/sally negative breast cancer, low Oncotype DX recurrence score of 10 with estimated 10 year risk of distant recurrence of 3 percent with adjuvant endocrine therapy, status post partial mastectomy and sentinel lymph node sampling with microscopically negative margins, followed by adjuvant breast irradiation, complicated by moderate radiation dermatitis, who is currently receiving adjuvant endocrine therapy. She received adjuvant anastrozole for 1 year c/b severe arthralgias, myalgias, disturbed sleep, fatigue, all of which were severely impairing her quality of life. She transitioned to tamoxifen which she is tolerating much better. We reviewed plan for at least 5 years of adjuvant Tamoxifen. She is without any findings concerning for disease recurrence at this time. Mammogram next due in 6 months with provider f/u Plan: 1. Continue tamoxifen 20 mg daily -> Plan is for a total of 5 years of endocrine therapy (January 2024). 2. Continue annual pelvic exam through PCP to screen for tamoxifen induced endometrial cancer. 3. Annual Eye examination. 4. Continue warfarin to maintain INR between 2-3. Monitor INR more closely as tamoxifen increases the potency of warfarin, so the INR may be higher. 5. Calcium 1200 mg and vitamin D 1000 units per day through diet and supplement. 6. Return to see me in 6 months with mammogram prior and interval H&P (ordered) COUNSELING: All of the above was explained to the patient in lay language. The patient has verbalized a clear understanding of the discussion, asked appropriate questions, which have been answered to the patient's apparent satisfaction. The patient is in complete agreement with the plan outlined in thi s note. Denise Aguirre APRN, SPECIAL PROCEDURES NURSE-[facility] This note created using speech-recognition software and may contain unintended word substitutions. Kirsty Alvarado - 01/29/2022 1:00 PM CDT Completed per provider's orders. QOPI: Is patient starting new chemotherapy medications today? No. Kirsty Dallas DIRECT CHILL CASTER 01/29/2022 4:01 PM documented in this encounter Plan of Treatment Upcoming Encounters Date Type Specialty Care Team Description 08/13/2022 Appointment Radiology Denise Aguirre APRN, COMMERCIAL ART INSTRUCTOR [address] [place], [place] [address] (Wo rk) 08/13/2022 Appointment Hematology and Oncology Denise Aguirre APRN, COMMERCIAL ART INSTRUCTOR [address] [place], [place] [address] (Wo rk) Scheduled Orders Name Type Priority Associated Diagnoses Order S chedule MM Mammogram Imaging New Routine Malignant neoplasm of 1 Occu rrences starting Screening Bilat W 3D overlapping sites of 01/29/2022 until Bravo W CAD left breast in female, 07/31 estrogen receptor positive (HRC) documented as of this encounter Goals Goal Patient Goal Associated Recent Patient-Stated? Author Type Problems Progress Being active Diabetes Diabetes No Tere, Education Education Tanner Ng RD, CDE Note: Formatting of this note might be d ifferent from the original. Being Active: Continue with Cardiac Reha b, 3 days per week, and work on gradually increasing your daily exercise on other days. Eating healthy Diabetes Education Diabetes Education No Tanner Carranza RD, CDE Note: Formatting of this note [...] encounter Visit Diagnoses Diagnosis Malignant neoplasm of overlapping sites of left breast in female, estrogen receptor positive (HRC) - Primary documented in this encounter Care Teams Grocery Buyer Relationship Specialty Start Date End Date Elyse Paredes MD PCP - General Family Practice 03/19/17 [address] [place] [address] documented as of this encounter
--- OUTSIDE RECORDS SUMMARY | 2022-07-02 13:49 | XMS_ITS | Encounter Summary ---
:1950 Author [facility] Address [address], [place] [address] Care Team Providers Name Role Phone Elyse Paredes MD Primary Care Provider Reason for Visit Reason Comments REPORTING, NEW SYMPTOMS Encounter Details Date Type Department Care Team Description 01/02/2022 Telephone [facility], J[facility] JORDAN Aldana [id number] [place] [address] [phone] Social History Tobacco Use Types Packs/Day Years Used Date Smoking Tobacco: Former Cigarettes Quit : 08/02/1981 Smokeless Tobacco: Never Alcohol Use Standard Drinks/Week Comments No 0 (1 standard drink = 0.6 oz pure alcoho l) Sex Assigned at Date Recorded Not on file documented as of this encounter Nursing Notes Lilly Kim RN - 01/02/2022 5:45 PM CDT Informed patient that Dr. Madrid reviewed here symptoms and he recommends that she be seen by her PCP. Instructed patient to be seen urgently if she notes any extension of the bruising or new evidence ofbleeding/bruising. Patient verbalized understanding and agreement with plan. Dorita Perry RN OCN 5:48 PM 01/02/22 Lilly Kim RN - 01/02/2022 3:17 PM CDT Returned patient call. Patient noted a large lump with a bruise around it the size of her fist on the side of her right breast. 9 o'clock Patient thinks this has been there for 2 days. Hx of left sided breast cancer. Patient denies any injury or new activities. Patient does not wear bras. Patient is on Warfarin. Patient had an INR two days ago which was within normal limits. Patient has a routine breast exam scheduled with SALIMA 01/29/2022. Patient denies pain, redness or warmth Informed patient that provider will be updated and patient will be advised accordingly. Dorita Perry RN OCN 3:25 PM 01/02/22 Roscoe Frzaier - 01/02/2022 1:24 PM CDT Pt is calling stating that she has a follow up with Jhony Blank on 01/29 but noticed yesterday on her right breast a huge bruise about the size of her hand with a green grape size lump in the center of it. She is wondering if she should be seen earlier. Roscoe Jackson 1:25 PM January 02, 2022 documented in this encounter Plan of Treatment Upcoming Encounters Date Type Specialty Care Team Description 08/13/2022 Appointment Radiology Denise Aguirre APRN, ARABIC TRANSLATOR [address] [place], [place] [address] (Wo rk) 08/13/2022 Appointment Hematology and Oncology Denise Aguirre APRN, ARABIC TRANSLATOR [address] [place], [place] [address] (Wo rk) documented as [...] the original. Monitoring My Diabetes: Continue to che k blood sugars before each meal and bedtime. documented as of this encounter Visit Diagnoses Not on filedocumented in this encounter Care Teams Ct Scan Tech Relationship Specialty Start Date End Date Elyse Paredes MD PCP - General Family Practice 03/19/17 [address] [place] [address] documented as of this encounter
--- OUTSIDE RECORDS SUMMARY | 2022-07-02 13:49 | XMS_ITS | Encounter Summary ---
:1950 Author Organization [facility] Address [address] [place] [address] Care Team Providers Name Role Phone Elyse Paredes MD Primary Care Provider Encounter Details Date Type Department Care Team Description 02/19/2022 Refill Order Specialty Center [address] Freya Zaragoza MD Endocrinology Clinic [address] [place] [address] [place] [address] [phone] Social History Tobacco Use Types Packs/Day Years Used Date Smoking Tobacco: Former Cigarettes Quit : 08/02/1981 Smokeless Tobacco: Never Alcohol Use Standard Drinks/Week Comments No 0 (1 standard drink = 0.6 oz pure alcoho l) Sex Assigned at Date Recorded Not on file documented as of this encounter Nursing Notes Tiffanie Moreland RN - 04/14/2022 10:29 AM CDT Noted. 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 Pt would like Dr Zaragoza to know Thank you verymuch for the care and you are a great Doctor! ENT Tarah Delaney CMA - 03/20/2022 2:52 PM CDT Patient overdue for f/u appointment. Labs ordered. CA, please call to schedule. Close encounter whencomplete. Tarah Delaney CMA 03/06/2022, 2:53 PM Interface, Out Audemat Query - 02/19/2022 6:14 AM CDT ORDER THE FOLLOWING: - CREATININE: Previously ordered on 03/17/2021 and will on 03/17/2023 - POTASSIUM: Pended to encounter. SCHEDULE THE FOLLOWING: - OFFICE VISIT BY: 03/12/2022 (Coming due as of 03/12/2022 for multiple medications including metoprolol succinate (TOPROL XL) 25 MG 24 hour release tablet) - CREATININE BY: 02/21/2022 (Coming due as of 02/21/2022 for losartan (COZAAR) 50 MG tablet) - POTASSIUM BY: 02/21/2022 (Coming due as of 02/21/2022 for losartan (COZAAR) 50 MG tablet) - LAST QUALIFYING VISIT IN ENDOCRINOLOGY WITH RAZIA ZARAGOZA - NEXT SCHEDULED VISIT: None - NEXT LAB APPOINTMENT: Pending [facility] Embedded Refills, Reference: [id number], 02/19/2022 6:14:51 AM CDT, Pool: ENDO REFILL RN ([id number]) documented in this encounter Plan of Treatment Upcoming Encounters Date Type Specialty Care Team Description 08/13/2022 Appointment Radiology Denise Aguirre, WEB MARKETING STRATEGIST, WAREHOUSE RECORD CLERK [address] [place], [place] [address] (Wo rk) 08/13/2022 Appointment Hematology and Oncology Denise Aguirre, WEB MARKETING STRATEGIST, WAREHOUSE RECORD CLERK [address] [place], [place] [address] (Wo rk) documented as of this encounter Goals Goal Patient Goal Associated Recent Patient-Stated? Author Type Problems Progress Being active Diabetes Diabetes No Tere Education Education Tanner Ng, RD, CDE Note: Formatting of this note [...] as of this encounter Visit Diagnoses Diagnosis Encounter for long-term (current) use of medications - Primary Encounter for long-term (current) use of other medications documented in this encounter Care Teams Commissions Analyst Relationship Specialty Start Date End Date Elyse Paredes MD PCP - General Family Practice 03/19/17 [address] [place] [address] documented as of this encounter
--- OUTSIDE RECORDS SUMMARY | 2022-07-02 13:49 | XMS_ITS | Clinical Summary ---
:1950 Author Organization [email or web address] Address [address] [place] [address] Care Team Providers Name Role Phone Elyse Paredes MD Primary Care Provider Source Comments You are receiving this document as you are listed as the primary care provider,follow-up provider, or the patient has been referred to you for consultation.This is in compliance with the Medicare and Medicaid EHR Incentive Program,which states Providers who transition their patient to another setting of careor provider of care or refers their patient to another provider of care shouldprovide summarycare record for each transition of care or referral. [employer] Allergies Active Allergy Reactions Severity Noted Date Comments Erythromycin Rash 04/04/2011 Lisinopril Other, see comments 06/17/2017 Dry coug h Metformin Other, see comments, Nausea And Vomiting 06/17/2017 diarrhea Medications Medication Sig Dispensed Refills Start Date End Date Status famotidine (PEPCID) Take 10 mg by mouth 0 Active 10 MG daily as needed. 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 enteric coated tabletIndications: Uncontrolled type 2 diabetes mellitus without complication, with long-term current use of insulin rosuvastatin Take 1 Tab by mouth 90 Tab 3 06/17/2017 Active (CRESTOR) 10 MG daily. tabletIndications: Uncontrolled type 2 diabetes mellitus without complication, with long-term current use of insulin ACCU-CHEK GERALD PLUS Check fasting / 350 Strip 6 04/27/2018 Active test before meals, and at stripIndications: bedtime, . Pharmacy Uncontrolled type 2 dispense brand based diabetes mellitus on insurance. without complication, with long-term current use of insulin Continuous Blood Gluc Use as directed for 1 Device 0 10/17/19 20 Active Cleaner Laboratory Equipment (DEXCOM G6 continuous glucose PHLEBOTOMY SERVICES REPRESENTATIVE) monitoring. DEVIIndications: Uncontrolled type 2 diabetes mellitus, with long-term current use of insulin losartan (COZAAR) 50 Take 1 Tablet by 90 Tablet 4 11/25/2020 Active MG tablet mouth daily. insulin lispro Use 10 units as a 30 mL 11 11/25/2020 Active (HUMALOG) 100 UNIT/ML base with meals, injection vial plus sliding scale. Max dose 70 units daily insulin glargine Inject 50 Units 0 Active (LANTUS) 100 UNIT/ML subcutaneously injection daily. warfarin (COUMADIN) 2 Take 2 mg by mouth 0 Active MG tablet daily. Per INR acetaminophen Take 1,300 mg by 0 Active (TYLENOL ARTHRITIS) mouth every 8 hours 650 MG controlled as needed for Pain. release tablet calcium carbonate Chew and swallow 500 0 Active (TUMS) 500 MG mg by mouth two chewable tablet times a day. cholecalciferol Take 1,000 Units by 0 Active (VITAMIN D3) 25 MCG mouth daily. (1000 UT) tablet Continuous Blood Gluc CHANGE EVERY 3 1 Each 2 05/30/2021 Active Transmit (DEXCOM G6 MONTHS TRANSMITTER) MISCIndications: Obesity, unspecified classification, unspecified obesity type, unspecified whether serious comorbidity present (HRC) allopurinol TAKE 1 TABLET BY 90 Tablet 0 06/09/2021 Active (ZYLOPRIM) 100 MG MOUTH DAILY tabletIndications: Hyperuricemia Continuous Blood Gluc CHANGE SENSOR EVERY 3 Each 5 06/27/20 21 Active Sensor (DEXCOM G6 10 DAYS SENSOR) MISCIndications: Obesity, unspecified classification, unspecified obesity type, unspecified whether serious comorbidity present (HRC) OZEMPIC, 1 MG/DOSE, 4 INJECT 1 MG UNDER 12 mL 1 10/16/2021 Active MG/3ML injection THE SKIN ONCE WEEKLY metoprolol succinate TAKE 1 TABLET BY 90 Tablet 0 11/27/2021 0 Active (TOPROL XL) 25 MG 24 MOUTH DAILY 3 hour release tabletIndications: Obesity, unspecified classification, unspecified obesity type, unspecified whether serious comorbidity present (HRC) SURE COMFORT PEN USE FOUR TO FIVE 100 Each 4 11/27/2021 Active NEEDLES 31G X 5 MM TIMES DAILY tamoxifen (NOLVADEX) Take 1 Tablet (20 90 Tablet 3 01/29/2022 Active 20 MG mg) by mouth daily. 3 tabletIndications: Malignant neoplasm of overlapping sites of left breast in female, estrogen receptor positive (HRC) Active Problems Problem Noted Date Hyperuricemia 02/19/2020 CKD (chronic kidney disease) stage 3, GFR 30-59 ml/min 02/19/2020 Microalbuminuria 02/19/2020 Malignant neoplasm of overlapping sites of left female breast 08/11/2018 Cancer Staging: Pathologic stage from : Stage IA (pT1c, pN0(sn), cM0, G2, ER+, NE+, HER2-, Oncotype DX score: 10) - Signed by Deloris Trujillo MD on 10/27/2018 Overview: Added automatically from request for sailaja jackson [id number] Coronary artery disease involving [place] coronary maurice ry of [place] heart 08/09/2018 without angina pectoris Diabetes Education 08/13/2017 Uncontrolled type 2 diabetes mellitus with hyperosmola rity without coma, 06/17/2017 with long-term current use of insulin Essential hypertension 06/17/2017 Dyslipidemia, goal LDL below 100 06/17/2017 Uncontrolled type 2 diabetes mellitus without complica tion, with long-term 06/17/2017 current use of insulin Uncontrolled type 2 diabetes mellitus, with long-term current use of 03/19/2017 insulin DEDE (obstructive sleep apnea) 03/19/2017 Immunizations Name Administration Dates Next Due Flu Vac (3+ yrs) 07/12/2014, 06/19/2013, 03/28/2012, 05/31/2011, 05/15/2010, 05/22/2005 Flu Vac Preserv Free (3+yrs) 04/03/2009 Fluzone Qiv Multidose Vial 0.25 (6-35 05/08/2017, 05/28/2016 , 05/09/2015 Mos) Influenza (Fluad) 05/01/2020, 04/13/2019, 04/20/2018 Influenza IIV3 (Trivalent) Fluzone 05/21/2017 Highdose, 65+ Yrs (28740) Influenza, Unspecified Formulation 05/21/2017 Moderna (Spikevax) COVID-19, 12+ Yrs 10/25/2020, 09/27/2020 PCV13 (Prevnar) 03/23/2018 PPSV23 (Pneumovax) 04/13/2019, 07/30/2011 Td, Preservative Free 11/01/2003, 12/06/1992 Tdap 08/08/2012 Zoster (Zostavax) 07/24/2015 Zoster RZV (Shingrix) 06/08/2019, 01/26/2019 Family History Medical History Relation Name Comments Cancer, Breast Negative Family History Cancer, Colon Negative Family History Cancer, Lung Negative Family History Cancer, Ovary Negative Family History Cancer, Pancreatic Negative Family History Cancer, Prostate Negative Family History Social History Tobacco Use Types Packs/Day Years Used Date Smoking Tobacco: Former Cigarettes Quit : 08/02/1981 Smokeless Tobacco: Never Alcohol Use Standard Drinks/Week Comments No 0 (1 standard drink = 0.6 oz pure alcoho l) Sex Assigned at Date Recorded Not on file Last Filed Vital Signs Vital Sign Reading [...] Mass Index 48.06 01/29/2022 1:04 PM CDT Plan of Treatment Upcoming Encounters Date Type Specialty Care Team Description 08/13/2022 Appointment Radiology Denise Aguirre APRN, PRESS CLIPPER [address] [place], [place] [address] (Wo rk) 08/13/2022 Appointment Hematology and Oncology Denise Aguirre APRN, PRESS CLIPPER [address] [place], [place] [address] (Wo rk) Health Maintenance Due Date Last Done Comments Diabetes: Eye Exam 1950 Diabetes: Foot Exam 1950 Hep C Screening (Preventive 1950 Services) HepB (1) 1971 COVID-19 Vaccine (3 - 12/20/2020 10/25/2020, 09/27/2020 Booster for Moderna series) Diabetes: HGBA1C 05/29/2021 02/26/2021, 11/21/2020, 10/07/2020, Additional history exists Medicare Annual Wellness 08/02/2021 Visit Diabetes: Creatinine 02/26/2022 02/26/2021, 01/17/2021, 10/07/2020, Additional history exists Diabetes: Urine 02/26/2022 02/26/2021, 01/20/2021, Microalbumin 10/07/2020, Additional history exists Influenza (#1) 2022 04/28/2021, 05/01/2020, 04/13/2019, Additional history exists Mammogram 07/31/2022 07/31/2021, 07/22/2020, 07/21/2019, Additional history exists DTaP/Tdap/Td (2 - Tdap) 08/08/2022 08/08/2012, 11/01/2003, 12/06/1992 Colonoscopy 11/02/2023 11/01/2013 Diabetes: Lipid Panel 02/26/2026 02/26/2021, 01/20/2021, 08/06/2020, Additional history exists Dexa Completed 01/26/2019 Pneumococcal 65+ Yrs Completed 04/13/2019, 03/23/2018, 07/30/2011 Zoster/Shingles Completed 06/08/2019, 01/26/2019, 07/24/2015 HepA Aged Out No longer eligib le based on patient 's age to complete this topic Hib Aged Out No longer eligib le based on patient 's age to complete this topic IPV (Polio) Aged Out No longer eligib le based on patient 's age to complete this topic MCV4 Aged Out No longer eligib le based on patient 's age to complete this topic Goals Goal Patient Goal Associated Recent Patient-Stated? Author Type Problems Progress Being active Diabetes Diabetes No Tere, Education Education Tanner Ng, RD, CDE Note: [...] blood sugars before each meal and bedtime. Insurance Payer Benefit Plan Subscriber ID Effective Phone Address Typ e / Group Dates [facility] MEDICARE [id number] 2021-Pres [phone] [address] Medicare ADVANTAGE ent [phone] [id number] [place] [address] Care Teams Senior Research Consultant Relationship Specialty Start Date End Date Elyse Paredes MD PCP - General Family Practice 03/19/17 [address] [place], [place] [id number]
--- OUTSIDE RECORDS SUMMARY | 2022-07-02 13:49 | XMS_ITS | Encounter Summary ---
:1950 Author Organization [email or web address] Address [address] [place] [address] Care Team Providers Name Role Phone Elyse Paredes MD Primary Care Provider Reason for Visit Reason Comments Refill SURE COMFORT PEN NEEDLES 31G X 5 MM [Pharmacy Med Name: SURE COMFORT PEN NEEDLES 31GX3/16] Encounter Details Date Type Department Care Team Description 11/27/2021 Refill Specialty [facility] [address], Refill ([facility]RE [facility]FORT [facility] PEN NEEDLES 31G X [address] [Pharmacy Med Name: [place] [address] [place], [place] SURE COMFORT PEN [phone] NEEDLES 31GX3/16]) [phone] (Wo rk) Social History Tobacco Use Types Packs/Day Years Used Date Smoking Tobacco: Former Cigarettes Quit : 08/02/1981 Smokeless Tobacco: Never Alcohol Use Standard Drinks/Week Comments No 0 (1 standard drink = 0.6 oz pure alcoho l) Sex Assigned at Date Recorded Not on file documented as of this encounter Nursing Notes Jacquelyn Matos RN - 11/27/2021 4:43 PM CDT Completed per physician's orders. Jacquelyn Matos RN 4:43 PM 11/27/2021 Interface, Out Surescripts Prov Query - 11/27/2021 4:21 AM CDT SURE COMFORT PEN NEEDLES 31G X 5 MM [Pharmacy Med Name: SURE COMFORT PEN NEEDLES 31G'] Endocrinology: Diabetes Non-DME Supplies -> Refill x 12 months (maximum allowed) -> Calculate the quantity and number of refills manually. Last qualifying visit: 03/17/2021 (in Endocrinology with JUAN ZARAGOZA) Next scheduled visit: None Last ordered by JUAN ZARAGOZA: 11/18/2020 (374 days ago) QTY: 100, Refills: 3, Sig: use four to five times daily (unchanged) Powered by [employer] by [employer], Reference: [id number], 11/27/2021 4:21:45 AM CDT, Pool:ENDO REFILL RN ([id number]) documented in this encounter Plan of Treatment Upcoming Encounters Date Type Specialty Care Team Description 08/13/2022 Appointment Radiology Denise Aguirre APRN, HEALTH EVALUATOR [address] [place], [place] [address] (Wo rk) 08/13/2022 Appointment Hematology and Oncology Denise Aguirre APRN, HEALTH EVALUATOR [address] [place], [place] [address] (Tonio rk) documented as of this encounter Goals [...] on filedocumented in this encounter Care Teams Drawer In Hand Relationship Specialty Start Date End Date Elyse Paredes MD PCP - General Family Practice 03/19/17 [address] [place] [address] documented as of this encounter
--- OUTSIDE RECORDS SUMMARY | 2022-07-02 13:49 | XMS_ITS | Clinical Summary ---
:1950 Author Organization [employer] [place] [address] Care Team Providers Name Role Phone Elyse Paredes MD Primary Care Provider Allergies Active Allergy Reactions Severity Noted Date Comments Erythromycin Rash Medium 08/22/2014 Lisinopril Cough 08/22/2014 Metformin Nausea And Vomiting 06/07/2017 Medications Medication Sig Dispensed Refills Start Date End Date Status amoxicillin (AMOXIL) Take 500 mg by 0 Active 500 mg tablet mouth one time. Prior to dental work. famotidine (PEPCID Take 10 mg by mouth 0 Active AC) 10 mg tablet 2 times daily. losartan (COZAAR) 50 Take 50 mg by mouth 0 Active mg tablet once daily. rosuvastatin Take 10 mg by mouth 0 Active (CRESTOR) 10 mg at bedtime. tablet HUMALOG MIX 75-25 75 Doses by 2 02/11/2017 Active KWIKPEN 100 unit/mL Injection route. (75-25) pen amoxicillin (AMOXIL) Take 500 mg by 0 12/28/2017 Active 500 mg capsule mouth one time if needed. TRULICITY 0.75 mg/0.5 1.5 mg by Injection 3 01/15/20 18 Active mL injection route once daily. Once a week insulin glargine 60 Units by 0 02/17/2018 Active (BASAGLAR KWIKPEN Injection route U-100 INSULIN) 100 once daily. unit/mL (3 mL) pen metoprolol succinate Take 1 tablet by 0 03/28/2019 Active (TOPROL XL) 25 mg mouth once daily. Sustained-Release tablet Blood-Glucose As directed. 0 03/28/2019 Ac tive Transmitter cynthia warfarin (COUMADIN) Take 1 tablet by 0 03/28/2019 Active 2.5 mg tablet mouth once daily. aspirin (ECOTRIN) 81 Take 1 tablet by 0 03/28/2019 Active mg enteric coated mouth once daily tablet with a meal. chlorthalidone Take 1 tablet by 0 03/28/2019 Active (HYGROTON) 25 mg mouth once daily. tablet venlafaxine (EFFEXOR) Take 1 tablet by 0 05/15/2020 Active 25 mg tablet mouth every morning. semaglutide (OZEMPIC) Inject subcutaneous 0 05/15/20 20 Active pen once weekly. allopurinoL Take 1 tablet by 0 05/15/2020 Active (ZYLOPRIM) 100 mg mouth once daily. tablet tamoxifen (NOLVADEX) Take 1 tablet by 0 05/15/2020 Active 20 mg tablet mouth once daily. CPAPIndications: DEDE CPAP machine for 1 Each 11 04/23/2022 Active (obstructive sleep home use at apnea) pressure 6-20cm, nasal mask x1/3month with nasal cushion x2/mo; HPS=039s, Frequency of use=daily Active Problems Not on file Encounters Date Type Specialty Care Team Description 04/23/2022 Phone Office Visit Chacha Aguirre PA from Last 3 Months Social History Tobacco Use Types Packs/Day Years Used Date Never Smoker Smokeless Tobacco: Never Used Alcohol Use Standard Drinks/Week Comments No 0 (1 standard drink = 0.6 oz pure alcoho l) Sex Assigned at Date Recorded Not on file Obstetrics History Last Filed Vital Signs Vital Sign Reading Time Taken Comments Blood Pressure 112/66 03/28/2019 1:41 PM CDT Pulse 62 03/28/2019 1:41 PM CDT Temperature - - Respiratory Rate 16 03/28/2018 2:29 PM CDT Oxygen Saturation 96% 03/28/2019 1:41 PM room air, a t rest CDT Inhaled Oxygen Concentration - - Weight 126.6 kg (279 lb) 03/28/2019 1:41 PM CDT Height 156.8 cm (5' 1.75) 03/28/2019 1:41 PM CDT Body Mass Index 51.44 03/28/2019 1:41 PM CDT Plan of Treatment Health Maintenance Due Date Last Done Comments Tdap 1963 Depression screening for age 12+ 1964 Hepatitis C screening for age 0904/17/1970 18-79 Zoster (shingles) series for age 0904/17/1971 50+ (1 of 2) Tetanus booster 1972 Colonoscopy through age 75 1997 Lipids for age 45-75 1997 Mammogram for age 45-75 1997 DEXA/DXA scan for age 65+ 2017 Medicare Wellness for age 65+ 2017 Pneumococcal series for age 65+ (1 2017 - PCV) BMI (ht and wt on same day) for 03/28/2020 03/28/2019, 03/03, age 18+ 03/22/2017, Additional history exists COVID-19 vaccine series (4 - 01/14/2022 11/19/2021, 021, Booster for Moderna series) 09/27/2020 Influenza for age 65+ 04/02/2022 Results Not on filefrom Last 3 Months Insurance Payer Benefit Plan / Subscriber ID Effective Dates Phone Addre ss Type Group [facility] MR [id number] 2022-Present [address] [address] [place] [address] Care Teams Inventory Control Planner Relationship Specialty Start Date End Date Elyse Paredes MD PCP - General 11/10/07
--- OUTSIDE RECORDS SUMMARY | 2022-07-02 13:49 | XMS_ITS | Encounter Summary ---
:1950 Author Organization [employer] Address [address] [place] [address] Care Team Providers Name Role Phone Elyse Paredes MD Primary Care Provider Encounter Details Date Type Department Care Team Description 10/15/2021 Refill Order Specialty Center [address] Freya Cho MD Endocrinology Clinic [address] [place] [address] [place] [address] [phone] Social History Tobacco Use Types Packs/Day Years Used Date Smoking Tobacco: Former Cigarettes Quit : 08/02/1981 Smokeless Tobacco: Never Alcohol Use Standard Drinks/Week Comments No 0 (1 standard drink = 0.6 oz pure alcoho l) Sex Assigned at Date Recorded Not on file documented as of this encounter Plan of Treatment Upcoming Encounters Date Type Specialty Care Team Description 08/13/2022 Appointment Radiology Denise Aguirre APRN, SMOKE INSPECTOR [address] [place], [place] [address] (Wo rk) 08/13/2022 Appointment Hematology and Oncology Denise Aguirre APRN, SMOKE INSPECTOR [address] [place], [place] [address] (Wo rk) documented as of this encounter Goals Goal Patient Goal Associated Recent Patient-Stated? Author Type Problems Progress Being active Diabetes Diabetes No Casteleyn, Education Education Tanner A, RD, CDE Note: Formatting of this note [...] medications documented in this encounter Care Teams Gunnery/Ordnance Officer Relationship Specialty Start Date End Date Elyse Paredes MD PCP - General Family Practice 03/19/17 [address] [place] [address] documented as of this encounter
--- OUTSIDE RECORDS SUMMARY | 2022-07-02 13:49 | XMS_ITS | Encounter Summary ---
:1950 Author Organization [employer] Address [address] [place] [address] Care Team Providers Name Role Phone Elyse [...] [address] 25 MG 24 [place] [address] [place], [place] tablet [Pharmacy Med [phone] Name: METOPROLOL ER [phone] (Wo rk) SUCCINATE 25MG TABS]) Social History Tobacco Use Types Packs/Day Years Used Date Smoking Tobacco: Former Cigarettes Quit : 08/02/1981 Smokeless Tobacco: Never Alcohol Use Standard Drinks/Week Comments No 0 (1 standard drink = 0.6 oz pure alcoho l) Sex Assigned at Date Recorded Not on file documented as of this encounter Nursing Notes Jacquelyn Matos RN - 11/27/2021 4:42 PM CDT Completed per physician's orders. Jacquelyn Matos RN 4:42 PM 11/27/2021 Interface, Out Surescripts Prov Query - 11/27/2021 4:19 AM CDT metoprolol succinate (TOPROL XL) 25 MG 24 hour release tablet [Pharmacy Med Name: METOPROLOL ER SUCCINATE 25MG TABS] Cardiovascular - Beta Blockers -> The most recent order on 11/25/2021. -> DBP, Heart Rate, and SBP are overdue (performed over 26 months ago, required every 12 months) Last qualifying visit: 03/17/2021 (in Endocrinology with JUAN ZARAGOZA) Next scheduled visit: None Last ordered by JUAN ZARAGOZA: 11/25/2020 (367 days ago) QTY: 90, Refills: 4, Sig: take 1 tablet by mouth daily. (unchanged) SBP: 126 mm Hg on 10/06/2019 DBP: 67 mm Hg on 10/06/2019 Heart Rate: 81 bpm on 10/06/2019 Powered by [employer] by [employer], Reference: [id number], 11/27/2021 4:19:46 AM CDT, Pool:MARY YANEZ RN ([id number]) documented in this encounter Plan of Treatment Upcoming Encounters Date Type Specialty Care Team Description 08/13/2022 Appointment Radiology Denise Aguirre, MASKING MACHINE FEEDER, EXERCISER [address] [place] [address] (Wo rk) 08/13/2022 Appointment Hematology and Oncology Denise Aguirre, MASKING MACHINE FEEDER, EXERCISER [address] [place], [place] [address] (Wo rk) documented as [...] (HRC) documented in this encounter Care Teams Electronic Industrial Controls Mechanic Relationship Specialty Start Date End Date Elyse Paredes MD PCP - General Family Practice 03/19/17 [address] [place] [address] documented as of this encounter
--- OUTSIDE RECORDS SUMMARY | 2022-07-02 13:50 | XMS_ITS | Encounter Summary ---
:1950 Author Organization [facility] Address [address], [place] [address] Care Team Providers Name Role Phone Elyse Paredes MD Primary Care Provider Encounter Details Date Type Department Care Team Description 02/26/2021 Lab Visit Specialty Center Obesity, unspecified classification, unspecified obesity type, unspecified whether serious comorbidity present; Laboratory Stage 3a chronic kidney dise ase (HRC); [address] [place] [address] Social History Tobacco Use Types Packs/Day Years Used Date Smoking Tobacco: Former Cigarettes Quit : 08/02/1981 Smokeless Tobacco: Never Alcohol Use Standard Drinks/Week Comments No 0 (1 standard drink = 0.6 oz pure alcoho l) Sex Assigned at Date Recorded Not on file documented as of this encounter Progress Notes Kirk Pino RN - 02/26/2021 1:00 PM CDT 01/22/21 [facility] states: Return in about 3 months (around 04/24/2021). It was a pleasure discussing your kidney care today. The most recent labs were a little concerning, since the creatinine was elevated to 1.35, up from 1.14 before and the potassium was low. The uric acid was also higher. These labs suggest you might be alittle dehydrated. You are taking the diuretic Chlorthalidone. This can sometimes cause dehydration. - Recommend stopping the chlorthalidone to see if the labs improve. You may not need it based on theblood pressure readings your are getting - If you start having more leg swelling, or problems with her blood pressure being high then please let me know so we can make a plan to treat you with a different agent, possibly low-dose hydrochlorothiazide 12.5 mg daily - have labs in about 4 weeks (ordered) ?? The uric acid was high at 7.4, despite taking allopurinol 100 mg daily. The chlorthalidone may be causing a high uric acid. - Stop chlorthlidone - Repeat uric acid level in 4 weeks - If uric acid remains above 6, the allopurinol dose may need to be increased ?? The urine test was negative for any significant protein spilling, which is a good result. Continue taking the losartan. ?? Follow up in about 3 months with labs beforehand. ...... Krik Pino RN 02/27/2021, 9:01 AM Prasanna Rivera MD - 02/26/2021 1:00 PM CDT Results reviewed, the kidney function looks stable with a creatinine of 1.2 to an estimated GFR of 46 mL/min. In December creatinine was slightly worse at 1.35. The sodium is normal. The potassium is back to normal at 4.6. I do not recommend any changes at this time Prasanna Rivera MD documented in this encounter Plan of Treatment Upcoming Encounters Date Type Specialty Care Team Description 08/13/2022 Appointment Radiology Denise Aguirre APRN, DRIER [address] [place], [place] [address] (Wo rk) 08/13/2022 Appointment Hematology and Oncology Denise Aguirre APRN, DRIER [address] [place], [place] [address] (Wo rk) documented as [...] and bedtime. documented as of this encounter Procedures Procedure Name Priority Date/Time Associated Diagnosis Comme nts LDL CHOLESTEROL, Routine 02/26/2021 1:09 PM Obesity, unspecifi ed Results for this DIRECT MEASURED CDT classification, procedure are in unspecified obesity the resu lts type, unspecified section. whether serious comorbidity present BASIC METABOLIC Routine 02/26/2021 1:09 PM Stage 3a chronic Re sults for this PANEL CDT kidney disease (HRC) procedu re are in the results section. HEMOGLOBIN, BLOOD Routine 02/26/2021 1:09 PM Obesity, unspecif ied Results for this CDT classification, procedure ar e in unspecified obesity the resu lts type, unspecified section. whether serious comorbidity present ALBUMIN/CREAT Routine 02/26/2021 1:09 PM Obesity, unspecified Results for this RATIO CDT classification, procedure ar e in unspecified obesity the resu lts type, unspecified section. whether serious comorbidity present HGB A1C Routine 02/26/2021 1:09 PM Obesity, unspecified R esults for this CDT classification, procedure ar e in unspecified obesity the resu lts type, unspecified section. whether serious comorbidity present URIC ACID Routine 02/26/2021 1:09 PM Hyperuricemia Results for this CDT procedure are i n the results section. ALT (SGPT) Routine 02/26/2021 1:09 PM Obesity, unspecified R esults for this CDT classification, procedure ar e in unspecified obesity the resu lts type, unspecified section. whether serious comorbidity present documented in this encounter Results Uric Acid (02/26/2021 1:09 PM CDT) P athologist Signature Uric Acid 4.9 2.6 - 6.0 02/26/2021 [facility] mg/dL 4:41 PM CDT CENTRAL LAB Specimen Anatomical Collection Method / Collection Time Recei gil Time (Source) Location / Volume Laterality Blood Venipuncture / 02/26/2021 1:09 02/26/2021 1:09 Unknown PM CDT PM CDT Prasanna Rivera MD LAB_1 Performing Organization Address City/State/ZIP Code Phon e Number [facility] [address] [address] (ABNORMAL) Basic Metabolic Panel (02/26/2021 1:09 PM CDT) Patholo gist Method Time Signature Sodium 138 136 - 145 02/26/2021 [facility] mmol/L 4:53 PM CDT CENTRAL LAB Potassium 4.6 3.5 - 5.1 02/26/2021 [facility] mmol/L 4:53 PM CDT CENTRAL LAB Chloride 106 98 - 109 02/26/2021 [facility] mmol/L 4:53 PM CDT CENTRAL LAB CO2 24 20 - 29 02/26/2021 [facility] mmol/L 4:53 PM CDT CENTRAL LAB Anion Gap 8 7 - 16 02/26/2021 [facility] mmol/L 4:53 PM CDT CENTRAL LAB Calcium 9.5 8.4 - 02/26/2021 [facility] 10.4 4:53 PM CDT CENTRAL LAB mg/dL BUN 18 7 - 26 02/26/2021 [facility] mg/dL 4:53 PM CDT CENTRAL LAB Creatinine 1.22 (H) 0.55 - 02/26/2021 [facility] 1.02 4:53 PM CDT CENTRAL LAB mg/dL GFR, Estimated 46 (L) >60 02/26/2021 [facility] mL/min/1. 4:53 PM CDT CENTRAL LAB 73m2 Glucose 162 (H) 70 - 100 02/26/2021 [facility] mg/dL 4:53 PM CDT CENTRAL LAB Comment: The given reference range is fo r the fasting state. Non-fasting reference range for glucose is 70 - 180 mg/dL. Hours Fasting 12 02/26/2021 4:53 PM CDT [facility] Specimen Anatomical Collection Method / Collection Time Recei gil Time (Source) Location / Volume Laterality Blood Venipuncture / 02/26/2021 1:09 02/26/2021 1:09 Unknown PM CDT PM CDT Narrative [facility] - 02/26/2021 4:53 PM CDT The National Kidney Disease Education Pr ogram suggests measuring Cystatin C in patients with eGFRcrea of 45 to 59 ml/mi n/1.73^2 who do not have other markers of kidney damage (i.e. elevated urine Album in/Creatinine Ratio or a prior Cystatin C confirming the presence of chronic kidne y disease). Prasanna Rivera MD LAB_1 Performing Organization Address [facility] [address]/[facility] Phon e Number [facility] [address] [phone] LABORATORY LDL Direct (02/26/2021 1:09 PM CDT) athologist Signature LDL, Direct 60 <=130 02/26/2021 [facility] mg/dL 4:41 PM CDT CENTRAL LAB Specimen Anatomical Collection Method / Collection Time Recei gil Time (Source) Location / Volume Laterality Blood Venipuncture / 02/26/2021 1:09 02/26/2021 1:09 Unknown PM CDT PM CDT Juan Cho MD LAB_1 Performing Organization Address City/[facility] [address]/[facility] Phon e Number [facility] [address] [address] Microalb / Creat Ratio (02/26/2021 1:09 PM CDT) Patholo gist Method Time Signature Albumin, 7.3 mg/L 02/26/2021 [facility] Urine, Random 5:09 PM CDT CENTRAL LAB Creatinine, 100 >20 mg/dL 02/26/2021 [facility] Urine, Random 5:09 PM CDT CENTRAL LAB Albumin/Creati 7 <30 mg/g 02/26[facility]20[facility] nine Ratio, 5:09 PM CDT CENTRAL LAB Urine, Random Specimen Anatomical Collection Method Collection Time Receive d Time (Source) Location / / Volume Laterality Urine Non-blood 02/26/2021 1:09 PM 1:09 Collection / CDT PM CDT Unknown Juan Cho MD LAB_1 Performing Organization Address [facility] [address]/ZIP Code Phon e Number [facility] CENTRAL LAB [address] [address] ALT (SGPT) (02/26/2021 1:09 PM CDT) athologist Signature ALT (SGPT) 20 0 - 55 U/L 02/26/2021 [facility] 4:41 PM CDT CENTRAL LAB Specimen Anatomical Collection Method / Collection Time Recei gil Time (Source) Location / Volume Laterality Blood Venipuncture / 02/26/2021 1:09 02/26/2021 1:09 Unknown PM CDT PM CDT Juan Cho MD LAB_1 Performing Organization Address City/[facility] [address]/ZIP Code Phon e Number [facility] CENTRAL LAB [address] [address] Hgb (02/26/2021 1:09 PM CDT) athologist Signature Hemoglobin 13.0 12.0 - 15.5 02/26/2021 [facility] g/dL 1:21 PM CDT CENTER LABORATORY Specimen Anatomical Collection Method / Collection Time Recei gil Time (Source) Location / Volume Laterality Blood Venipuncture / 02/26/2021 1:09 02/26/2021 1:09 Unknown PM CDT PM CDT Juan Cho MD LAB_1 Performing Organization Address City/[facility] [address]/ZIP Code Phon e Number [facility] [address] [place] [address] (ABNORMAL) HgbA1c (02/26/2021 1:09 PM CDT) [facility] gist Method Time Signature Hemoglobin A1C 7.3 (H) <=5.6 % 02/26/2021 [facility] 4:46 PM CDT CENTRAL LAB Specimen Anatomical Collection Method / Collection Time Recei gil Time (Source) Location / Volume Laterality Blood Venipuncture / 02/26/2021 1:09 02/26/2021 1:09 Unknown PM CDT PM CDT Narrative [facility] - 02/26/2021 4:46 PM CDT For patients not previously diagnosed with diabetes: 5.7-6.4%: Increased risk for diabetes 6.5% and greater: Diagnostic for diabete s For patients diagnosed with diabetes: <8.0%: Goal of therapy for ages 18-75 Clinicians may recommend a higher or low er goal for specific individuals. Juan Cho MD LAB_1 Performing Organization Address City/State/ZIP Code Phon e Number [facility] [address] [phone] documented in this encounter Visit Diagnoses Diagnosis Obesity, unspecified classification, uns pecified obesity type, unspecified whether serious comorbidity present (HRC) Stage 3a chronic kidney disease (HRC) Hyperuricemia Other abnormal blood chemistry documented in this encounter Care Teams Winery Cellar Hand Relationship Specialty Start Date End Date Elyse Paredes MD PCP - General Family Practice 03/19/17 [address] [place] [address] documented as of this encounter
--- OUTSIDE RECORDS SUMMARY | 2022-07-02 13:50 | XMS_ITS | Encounter Summary ---
:1950 Author Organization [facility] Address [address] [place] [address] Care Team Providers Name Role Phone Elyse Paredes MD Primary Care Provider Reason for Referral Procedure/Equipment (Routine) - Incomplete Specialty Diagnoses / Procedures Referred By Contact Refer red To Contact Diagnoses Malignant neoplasm of overlapping sites of left breast in female, estrogen receptor positive (HRC) Denise Aguirre APRN, Procedures MM Mammogram Screening Bilat W 3D Bravo W CAD CALENDER ROLL OPERATOR [address] [place] [id number] Referral ID Status Reason Start Date Expiration Date Visits V isits Requested Authorized [id number] Incomplete 07/23/2021 10/22/2022 1 1 Encounter Details Date Type Department Care Team Description 01/30/2021 Telemedicine [facility] Cancer Denise Aguirre alignant neoplasm [facility] GRIFFIN John CALENDER ROLL OPERATOR of overlapping sites [address] of left breast in [address] [place] [address] female, [place] [address] receptor positive [phone] (HRC) (Primary Dx) (Work) Social History Tobacco Use Types Packs/Day Years Used Date Smoking Tobacco: Former Cigarettes Quit : 08/02/1981 Smokeless Tobacco: Never Alcohol Use Standard Drinks/Week Comments No 0 (1 standard drink = 0.6 oz pure alcoho l) Sex Assigned at Date Recorded Not on file documented as of this encounter Patient Instructions Patient InstructionsDenise Aguirre APRN, CNP - 01/30/2021 2:00 PM CDT Dear Marci, It was a pleasure to see you for our visit today. Congratulations on your weight loss of 32 lbs! Plan: 1. Continue tamoxifen 20 mg daily -> Plan is for a total of 5 years of endocrine therapy (January 2024). 2. Continue annual pelvic exam through Dr. Paredes's clinic to screen for tamoxifen induced endometrialcancer. 3. Annual Eye examination 4. Continue warfarin to maintain INR between 2-3. Monitor INR more closely as tamoxifen increases the potency of warfarin, so the INR may be higher. 5. Calcium 1200 mg and vitamin D 1000 units per day through diet and supplement. 6. Return to see me in 6 months for interval H&P and breast exam. 7. You will be due for repeat bilateral screening mammogram(s) in July 2021 (ordered) Call with any questions or concerns. The clinic phone number is [phone]. After hours, please call the nurse care line at [phone]. Take Denise Schumacher APRN, CNP Appointments scheduled with patient Will view AVS online RH 2:32 PM 01/30/21 documented in this encounter Progress Notes Denise Aguirre APRN, CNP - 01/30/2021 2:00 PM CDT [facility] Oncology/Hematology Follow up Visit Note Date of Service: 01/30/2021 Cancer Summary (Printed and given to the [...] ?? 01/19/2020: Started tamoxifen 20 mg daily. VIDEO VISIT Interval History: Marci Staley Emily was called for scheduled video visit for follow-up on her breast cancer. She is currently working with Nephrology due to renal issues. She has had issues with hyperuricemia and is currently on allopurinol, and her chlorthalidone was recently discontinued as it was felt to be possibly contr ibuting to her high uric acid levels. She continues take tamoxifen as prescribed. She denies any significant hot flashes, changes in mood, new swelling or concerns for DVT. She continues on Coumadin and has been therapeutic without having to do any significant dosing changes. She noticed it has been hard to manage her diabetes, she has more highs and lows. She recently got aDexcom for monitoring her blood sugars. She reports that she has intentionally lost 32 lb over the past year by doing intermittent fasting with the approval of her refrigeration plant operator. She feels that doing intermittent fasting has really helped reset her metabolism. She did receive the COVID-19 vaccine (Moderna), but continues to avoid going out in public or making unnecessary trips outside of her home. She had her annual pelvic examination in May of 2020 with her primary care at [facility]. Shewill be due for an eye examination in March, however her wood setter is booked until the beginning of July. She denies any new palpable lumps/bumps, coughing, shortness of breath, abdominal pain or fullness, new swelling, or bony pain. She has chronic arthritic pain in her hips, knees, and hands. ROS: Full 10 point review of systems was performed and was negative unless specified in HPI and as follows. ECOG performance status: 0. I have personally reviewed the patient's allergies, medications, past medical history, problem list and lab results in detail and updated the patient record as necessary. Physical Exam: General: A&O x 4. Sitting comfortably in room in her house NAD. Eyes: No scleral icterus Lungs: Respirations appear even and unlabored Psych: mood and affect appropriate Assessment: A 70 y.o. lady with postmenopausal stage I, hormone [...] myalgias, disturbed sleep, fatigue, all of which are severely impairing her quality of life. She is now on tamoxifen which she is tolerating much better. We reviewed that she should come in this year for a breast examination. She is due for a repeat mammogram in July 2021. She has agreed that now that she is vaccinated against COVID-19, she will come in for an in-person visit and mammogram sometime in July. We reviewed that she should continue annual eye examination and pelvic examinations while on tamoxifen. Plan: 1. Continue tamoxifen 20 mg daily -> Plan is for a total of 5 years of endocrine therapy (January 2024). 2. Continue annual pelvic exam through Dr. Paredes's clinic to screen for tamoxifen induced endometrialcancer. 3. Annual Eye examination 4. Continue warfarin to maintain INR between 2-3. Monitor INR more closely as tamoxifen increases the potency of warfarin, so the INR may be higher. 5. Calcium 1200 mg and vitamin D 1000 units per day through diet and supplement. 6. Return to see me in 6 months for interval H&P and breast exam. 7. You will be due for repeat bilateral screening mammogram(s) in July 2021 (ordered) COUNSELING: All of the above was explained to the patient in lay language. The patient has verbalized a clear understanding of the discussion, asked appropriate questions, which have been answered to the patient's apparent satisfaction. The patient is in complete agreement with the plan outlined in thi s note. Denise Aguirre APRN, BARRETT Essence Rosa RN - 01/30/2021 2:00 PM CDT Completed per provider's orders. QOPI: Is patient starting new chemotherapy medications today or in the near future? No Essence David RN BSN 01/31/2021 2:47 PM documented in this encounter Plan of Treatment Upcoming Encounters Date Type Specialty Care Team Description 08/13/2022 Appointment Radiology Denise Aguirre APRN, CALENDER ROLL OPERATOR [address] [place], [place] [address] (Tonio sorenson) 08/13/2022 Appointment Hematology and Oncology Denise Aguirre APRN, CALENDER ROLL OPERATOR [address] [place], [place] [address] (Tonio sorenson) documented as of this encounter Goals Goal [...] and bedtime. documented as of this encounter Results MM Mammogram Screening Bilat W 3D Bravo W CAD (07/31/2021 12:33 PM CUSTOMER SUPPORT PROFESSIONAL) Anatomical Region Laterality Modality Breast Bilateral Mammography Specimen (Source) Anatomical Location Collection Method / Collectio n Time Received Time / Laterality Volume Impressions 07/31/2021 1:46 PM CUSTOMER SUPPORT PROFESSIONAL : ACR BI-RADS Category 2: Benign RECOMMENDATION: Follow Up Imaging in 12 months - Bilateral The results and recommendations of this examination will be communicated to the patient. Narrative 07/31/2021 1:46 PM CUSTOMER SUPPORT PROFESSIONAL MM MAMMOGRAM SCREENING BILAT W 3D BRAVO W CAD performed on 07/31/21 Compared to: 07/22/2020 MM Mammogram Scr eening Bilat W 3D Bravo W CAD, 07/21/2019 MM Mammogram Screening Bilat W 3D Bravo W CAD, and 07/19/2018 MM Mammogram Screening Bilat W CAD ?? FINDINGS: Bilateral screening mammogram was performed with the assistance of Computer-Aided Detection and breast t omosynthesis. The breasts have scattered areas of fibroglandular densit y. There are breast conservation changes on the left. There is no radiographic evidence of mal ignancy. ?? Denise Aguirre QUARTER SEAMER, CALENDER ROLL OPERATOR RAD NILAM documented in this encounter Visit Diagnoses Diagnosis Malignant neoplasm of overlapping sites of left breast in female, estrogen receptor positive (HRC) - Primary Malignant neoplasm of overlapping sites of left breast in female, estrogen receptor positive (HRC) documented in this encounter Care Teams City Solicitor Relationship Specialty Start Date End Date Elyse Paredes MD PCP - [facility] Practice 03/19/17 [address] [place] [address] documented as of this encounter
--- OUTSIDE RECORDS SUMMARY | 2022-07-02 13:50 | XMS_ITS | Encounter Summary ---
:1950 Author Organization [facility] Address [address] [place] [address] Care Team Providers Name Role Phone Elyse Paredes MD Primary Care Provider Encounter Details Date Type Department Care Team Description 06/27/2021 Refill Order Specialty Center [address] Freya Zaragoza MD Endocrinology Clinic [address] [place] [address] [place] [address] [phone] Social History Tobacco Use Types Packs/Day Years Used Date Smoking Tobacco: Former Cigarettes Quit : 08/02/1981 Smokeless Tobacco: Never Alcohol Use Standard Drinks/Week Comments No 0 (1 standard drink = 0.6 oz pure alcoho l) Sex Assigned at Date Recorded Not on file documented as of this encounter Nursing Notes Interface, Out Surescripts Prov Query - 06/27/2021 4:23 PM CST ORDER THE FOLLOWING: - HEMOGLOBIN A1C: Previously ordered on 03/17/2021 and will on 03/17/2023 SCHEDULE THE FOLLOWING: - HEMOGLOBIN A1C BY: 08/25/2021 (Coming due as of 08/25/2021 for insulin lispro (HUMALOG) 100 UNIT/ML injection vial) - LAST QUALIFYING VISIT IN ENDOCRINOLOGY WITH RAZIA ZARAGOZA: 03/17/2021 - NEXT SCHEDULED VISIT: None - NEXT LAB APPOINTMENT: None Powered by [facility] by [employer], Reference: [id number], 06/27/2021 4:23:57 PM INSOLE PRESSER, Pool:MARY YANEZ RN ([id number]) LE PRESSER documented in this encounter Plan of Treatment Upcoming Encounters Date Type Specialty Care Team Description 08/13/2022 Appointment Radiology Denise Aguirre APRN, ACTIMIZE ARCHITECT [address] [place], [place] [address] (Wo rk) 08/13/2022 Appointment Hematology and Oncology Denise Aguirre APRN, ACTIMIZE ARCHITECT [address] [place], [place] [address] (Wo rk) documented as [...] days. Eating healthy Diabetes Education Diabetes Education Tanner Loredo, ARMAND, CDE Note: Formatting of this note might be d ifferent from the original. Eating Healthy: Try and limit 30-45 gram s carb per meal and 15 grams carb per snack. Work on healthy evening snack, such as r aw carrots or fresh fruit or low fat yogurt. Monitoring my Diabetes Education Diabetes Education Tanner Loredo, diabetes RD, CDE Note: Formatting of this note might be d ifferent from the original. Monitoring My Diabetes: Continue to chec k blood sugars before each meal and bedtime. documented as of this encounter Visit Diagnoses Diagnosis Encounter for long-term (current) use of medications - Primary Encounter for long-term (current) use of other medications documented in this encounter Care Teams Storage Garage Attendant Relationship Specialty Start Date End Date Elyse Paredes MD PCP - General Family Practice 03/19/17 [address] [place] [address] documented as of this encounter
--- OUTSIDE RECORDS SUMMARY | 2022-07-02 13:50 | XMS_ITS | Encounter Summary ---
:1950 Author Organization [facility] Address [address] [place] [address] Care Team Providers Name Role Phone Elyse Paredes MD Primary Care Provider Reason for Visit Procedure/Equipment (Routine) - Incomplete Specialty Diagnoses / Procedures Referred By Contact Refer red To Contact Diagnoses Malignant neoplasm of overlapping sites of left breast in female, estrogen receptor positive (HRC) Denise Aguirre APRN, Procedures MM Mammogram Screening Bilat W 3D Bravo W CAD BOWLING OR SKATING FRONT DESK CLERK [address] [place] [address] Referral ID Status Reason Start Date Expiration Date Visits V isits Requested Authorized [id number] Incomplete 07/23/2021 10/22/2022 1 1 Encounter Details Date Type Department Care Team Description 07/31/2021 Ancillary Procedure [facility] Breast Carla, [facility] ant neoplasm [facility] Denise John APRN, of overlapping sites [address] [place] [address]. BOWLING OR SKATING FRONT DESK CLERK of left breast in [address] female, estrogen [address] [place], [place] receptor positive [phone] (HRC) Social History Tobacco Use Types Packs/Day Years [...] Description 08/13/2022 Appointment Radiology Denise Aguirre APRN, BOWLING OR SKATING FRONT DESK CLERK [address] [place] [phone] (Wo rk) 08/13/2022 Appointment Hematology and Oncology Denise Aguirre, LEAD REFINERY SUPERVISOR, BOWLING OR SKATING FRONT DESK CLERK [address] [place], [place] [address] (Wo rk) documented as of this encounter Goals Goal Patient Goal Associated Recent Patient-Stated? Author Type Problems Progress Being active Diabetes Diabetes No Tere, Education Education Tanner Ng, ARMAND, CDE Note: Formatting of this note [...] my Diabetes Education Diabetes Education No Tanner Carranza diabetes RD, CDE Note: Formatting of this note might be d ifferent from the original. Monitoring My Diabetes: Continue to chec k blood sugars before each meal and bedtime. documented as of this encounter Procedures Procedure Name Priority Date/Time Associated Diagnosis Comme nts MM MAMMOGRAM Routine 07/31/2021 12:33 PM Malignant neoplasm Re sults for this SCREENING BILAT W TRIPE FINISHER of overlapping sites pr omkarre are in 3D BRAVO W CAD of left breast in the resul ts female, estrogen section. receptor positive (HRC) documented in this encounter Results MM Mammogram Screening Bilat W 3D Bravo W CAD (07/31/2021 12:33 PM TRIPE FINISHER) Anatomical Region Laterality Modality Breast Bilateral Mammography Specimen (Source) Anatomical Location Collection Method / Collectio n Time Received Time / Laterality Volume Impressions 07/31/2021 1:46 PM TRIPE FINISHER : ACR BI-RADS Category 2: Benign RECOMMENDATION: Follow Up Imaging in 12 months - Bilateral The results and recommendations of this examination will be communicated to the patient. Narrative 07/31/2021 1:46 PM TRIPE FINISHER MM MAMMOGRAM SCREENING BILAT W 3D BRAVO [...] evidence of mal ignancy. ?? Denise Aguirre LEAD REFINERY SUPERVISOR, BOWLING OR SKATING FRONT DESK CLERK RAD NILAM documented in this encounter Visit Diagnoses Diagnosis Malignant neoplasm of overlapping sites of left breast in female, estrogen receptor positive (HRC) documented in this encounter Care Teams Extraction Machine Operator Relationship Specialty Start Date End Date Elyse Paredes MD PCP - General Family Practice 03/19/17 [address] [place] [address] documented as of this encounter
--- OUTSIDE RECORDS SUMMARY | 2022-07-02 13:50 | XMS_ITS | Encounter Summary ---
:1950 Author Organization [facility] Address [address] [place] [address] Care Team Providers Name Role Phone Elyse Paredes MD Primary Care Provider Reason for Visit Reason Comments Refill Continuous Blood Gluc Sensor (DEXCOM G6 SENSOR) [facility] [Pharmacy Med Name: DEXCOM G6 SENSOR MISC] Encounter Details Date Type Department Care Team Description 06/27/2021 Refill Specialty Center [address], Refill ([facility] MD Blood Gluc Sensor [address] (DEXCOM G6 SENSOR) [facility] [place] [address] [place], [place] [Pharmacy Med Name: [phone] DEXCOM G6 SENSOR MISC]) [phone] (Wo rk) Social History Tobacco Use Types Packs/Day Years Used Date Smoking Tobacco: Former Cigarettes Quit : 08/02/1981 Smokeless Tobacco: Never Alcohol Use Standard Drinks/Week Comments No 0 (1 standard drink = 0.6 oz pure alcoho l) Sex Assigned at Date Recorded Not on file documented as of this encounter Nursing Notes Kathy Edward RN - 06/27/2021 4:44 PM CST Completed per physicians orders. Kathy Reyez RN 06/27/2021, 4:44 PM EGNATOR AND DRIER HELPER Interface, Out Surescripts Prov Query - 06/27/2021 4:23 PM CST Continuous Blood Gluc Sensor (DEXCOM G6 SENSOR) [facility] [Pharmacy Med Name: DEXCOM G6 SENSOR MISC] None Exists -> Unable to determine if patient is due for a renewal, please review. -> Medication cannot be delegated. Last qualifying visit: 03/17/2021 (in Endocrinology with JUAN ZARAGOZA) Next scheduled visit: None Last ordered by JUAN ZARAGOZA: 11/25/2020 (214 days ago) QTY: 3, Refills: 5, Sig: change sensor every 10 days (unchanged) Powered by [employer] by [employer], Reference: [id number], 06/27/2021 4:23:57 PM IMPREGNATOR AND DRIER HELPER, Pool:ENDO REFILL RN ([id number]) EGNATOR AND DRIER HELPER documented in this encounter Plan of Treatment Upcoming Encounters Date Type Specialty Care Team Description 08/13/2022 Appointment Radiology Denise Aguirre APRN, AUTOMATIC GRINDING MACHINE OPERATOR [address] [place], [place] [address] (Wo rk) 08/13/2022 Appointment Hematology and Oncology Denise Aguirre APRN, AUTOMATIC GRINDING MACHINE OPERATOR [address] [place], [place] [address] (Wo rk) documented as [...] (HRC) documented in this encounter Care Teams Offset Press Assistant Relationship Specialty Start Date End Date Elyse Paredes MD PCP - General Family Practice 03/19/17 [address] [address] documented as of this encounter
--- OUTSIDE RECORDS SUMMARY | 2022-07-02 13:50 | XMS_ITS | Encounter Summary ---
:1950 Author Organization [facility] Address [address] [place] [address] Care Team Providers Name Role Phone Elyse Paredes MD Primary Care Provider Encounter Details Date Type Department Care Team Description 03/17/2021 Telemedicine Specialty Center [address], Controlled type 2 diabetes mellitus without complication, with long-term current use of insulin (HRC) (Primary Dx); Endocrinology Clinic Obesity, unspecified classification, uns pecified obesity type, unspecified whether serious comorbidity present; [address] Coronary artery disease involving [place] coronary artery of seldovia heart without angina pectoris; [place] [address] [place], [place] Essential hypertension; [phone] Encounter for long-term (current) use of medications; [phone] Obesity, unspec ified obesity severity, unspecified obesity type (Work) Social History Tobacco Use Types Packs/Day Years Used Date Smoking Tobacco: Former Cigarettes Quit : 08/02/1981 Smokeless Tobacco: Never Alcohol Use Standard Drinks/Week Comments No 0 (1 standard drink = 0.6 oz pure alcoho l) Sex Assigned at Date Recorded Not on file documented as of this encounter Progress Notes Juan Cho MD - 03/17/2021 2:15 PM CDT ENDOCRINOLOGY VIDEO RETURN NOTE 03/17/2021 Marci Diaz 70 y.o. HPI: The patient return for management of type 2 diabetes ROS: As per HPI No current facility-administered medications for this visit. Allergies Allergen Reactions ??? Erythromycin Rash ??? Lisinopril Other, see comments Dry cough ??? Metformin Other, see comments and Nausea And Vomiting diarrhea P.E There were no vitals filed for this visit. Estimated body mass index is 49.02 kg/m?? as calculated from the following: Height as of 09/16/18: 5' 2 (1.575 m). Weight as of 10/15/20: 268 lb (121.6 kg). Disposition/hobbies/life stressors: ASSESSMENT/PLAN:: #1. ??Hypoglycemia/CGMS.?In terms of the dexcom cgms: the patient is doing very well with a device. ??The patient is currently checking her blood sugars four??6 times a day. ??The patient is currently injecting insulin 6 to 7 times a day. ??The patient's insulin treatment regimen requires frequent adjustments based on blood sugars and C GMS device results. ?? #2. ??Hypertension. ??The patient may continue metoprolol, Lopressor and [place] ?? #3. ??Cholesterol. ??The patient may continue Crestor 20 mg once a day. ?? #4. Obesity. ??The patient has??lost 6-7 lbs??since her last visit. ??The weight loss most likely result of intermittent fasting??and ozempic.? #5. ??Type 2 diabetes controlled with coronary artery disease aortic valve replacement??in chronic renal insufficiency .?the patient's blood sugars have worsened in the last couple of months with lifestyle changes. The patient appears to be consuming process food with corn syrup as previously A1cwas 7.3 and now is 8.2. Usually do not see weight gain and worsening blood sugars with the use of Ozempic the patient has agreed to change her diet.?a review of the records revealed the patient's kidney function 2017 was greater than 60 however is worsened ill to approximately 40 to. ??The exact cause is not clear the patient does have elevated micro creatinine ratio so could be to simply diabetes but will also the patient see renal to make sure of the missing anything there is no secondary to disorder. Patient may continue basilar 50 units once a day and 10 units of Humalog with meals in a pre meal scale of 2 units per each 50 points the base 150 and??2 units per each 50 points with a base of 200 before bed??and ozempic 1 mg weekly. The patient is currently moving at over 10 0 in then moving to [facility] wear sugar up. This moves been stressful as the patient has today move large amounts of of collected items which is stressful understandable. This should soon the over and following move she is here to on pack as there will be no time constraints on packing. Dressed. Time exercises been of retic it often increased at times causing low blood sugars and occasionally eating out more than normal which is elevated blood sugars. ? RETURN IN 3-6 MONTHS PRIOR TO RETURN OBTAIN LABS, non fasting labs in 3-6 months. Video visit Clinician location: [facility] endocrinology [facility] specialty [facility] Patient location: home Total visit time 30 minutes all of which was spent in education, discussion, answering all questions, gathering the data prior to talking to the patient discussing the above and/or coordination of care. Luis Fernando Cho MD This note created using speech-recognition software and may contain unintended word substitutions. documented in this encounter Plan of Treatment Upcoming Encounters Date Type Specialty Care Team Description 08/13/2022 Appointment Radiology Denise Aguirre, NURSING SERVICE DIRECTOR, PAPER PATTERN INSPECTOR [address] [place], [place] [address] (Wo rk) 08/13/2022 Appointment Hematology and Oncology Denise Aguirre APRN, PAPER PATTERN INSPECTOR [address] [place], [place] [address] (Wo rk) Scheduled Orders Name Type Priority Associated Diagnoses Order S chedule LDL Direct Lab Routine Controlled type 2 3 months f or 2 diabetes mellitus Occurrence s starting without complication, 2020 until with long-term current 03/17 use of insulin (HRC) HgbA1c Lab Routine Controlled type 2 3 months f or 2 diabetes mellitus Occurrence s starting without complication, 2020 until with long-term current 03/17 use of insulin (HRC) Hgb Lab Routine Controlled type 2 3 months f or 2 diabetes mellitus Occurrence s starting without complication, 2020 until with long-term current 03/17 use of insulin (HRC) ALT (SGPT) Lab Routine Controlled type 2 3 months f or 2 diabetes mellitus Occurrence s starting without complication, 2020 until with long-term current 03/17 use of insulin (HRC) Creatinine / GFR Lab Routine Controlled type 2 3 shanna hs for 2 diabetes mellitus Occurrence s starting without complication, 2020 until with long-term current 03/17 use of insulin (HRC) Albumin/Creatinine Lab Routine Controlled type 2 3 mo nths for 2 Ratio,Random Urine diabetes mellitus Occu rrences starting without complication, 2020 until with long-term current 03/17 use of insulin (HRC) TSH, Sensitive Lab Routine Controlled type 2 3 months for 2 diabetes mellitus Occurrence s starting without complication, 2020 until with long-term current 03/17 use of insulin (HRC) documented as of this encounter Goals [...] healthy Diabetes Education Diabetes Education Tanner Loredo, RD, CDE Note: Formatting of this note [...] as of this encounter Visit Diagnoses Diagnosis Controlled type 2 diabetes mellitus with out complication, with long-term current use of insulin (HRC) - Primary Obesity, unspecified classification, uns pecified obesity type, unspecified whether serious comorbidity present (HRC) Coronary artery disease involving [place] coronary artery of [place] heart without angina pectoris (HRC) Essential hypertension (HRC) Unspecified essential hypertension Encounter for long-term (current) use of medications Encounter for long-term (current) use of other medications documented in this encounter Care Teams Decommissioning Well Site Manager Relationship Specialty Start Date End Date Elyse Paredes MD PCP - General [facility] Practice 03/19/17 [address] [address] documented as of this encounter
--- OUTSIDE RECORDS SUMMARY | 2022-07-02 13:50 | XMS_ITS | Encounter Summary ---
:1950 Author Organization [employer] Address [address] [place] [address] Care Team Providers Name Role Phone Elyse Paredes MD Primary Care Provider Reason for Visit Reason Comments Refill allopurinol (ZYLOPRIM) 100 M G tablet [Pharmacy Med Name: ALLOPURINOL 100MG TABLETS] Encounter Details Date Type Department Care Team Description 06/09/2021 Refill [facility] Nephrology Deepti Rivera, Refill (allopurinol [address] (ZYLOPRIM) 100 [place] [address] [Pharmacy Med Name: [phone] [place], [place] [address] ALLOPURINOL 100MG [phone] (Wo rk) TABLETS]) Social History Tobacco Use Types Packs/Day Years Used Date Smoking Tobacco: Former Cigarettes Quit : 08/02/1981 Smokeless Tobacco: Never Alcohol Use Standard Drinks/Week Comments No 0 (1 standard drink = 0.6 oz pure alcoho l) Sex Assigned at Date Recorded Not on file documented as of this encounter Nursing Notes Jefe Recinos - 06/10/2021 10:48 AM CST Pt is not longer going to be seen in our clinic. Pt states that she is going to continue care at [facility] and clinic with Dr. Bae. Pt states that she wanted to personally thank Dr. Rivera for his great care and service. Jefe Moore READING TEACHER Waleska Angel, [place]TON - 06/09/2021 11:56 AM CST Was advised to follow up in April, please schedule next available. Waleska Angel RN 06/09/2021, 11:56 AM READING TEACHER Interface, Out Surescripts Prov Query - 06/09/2021 10:39 AM CST allopurinol (ZYLOPRIM) 100 MG tablet [Pharmacy Med Name: ALLOPURINOL 100MG TABLETS] Endocrinology: Gout -> AST, HCT, PLT, and WBC were not found within the last 5 years. -> Eye Exam was not found within the last 5 years. Last qualifying visit: 01/22/2021 (in NEPHROLOGY) Next scheduled visit: None Last ordered by DEEPTI RIVERA B: 04/27/2021 (43 days ago) QTY: 90, Refills: 0, Sig: take 1 tablet by mouth daily (unchanged) Cr: 1.22 mg/dL on 02/26/2021 AST: Not found ALT: 20 U/L on 02/26/2021 eGFR: Not found Eye Exam: Not found HCT: Not found HGB: 13 g/dL on 02/26/2021 PLT: Not found Uric Acid: 4.9 mg/dL on 02/26/2021 WBC: Not found PATIENT IS DUE FOR: - AST for allopurinol (ZYLOPRIM) 100 MG tablet (Recommended on 04/27/2021) - EYE EXAM for allopurinol (ZYLOPRIM) 100 MG tablet (Recommended on 04/27/2021) - COMPLETE BLOOD COUNT for multiple medications including allopurinol (ZYLOPRIM) 100 MG tablet (Recommended on 04/27/2021) Powered by [employer] by [employer], Reference: [id number], 06/09/2021 10:39:26 AM LIP READING TEACHER, Pool: Nicole ([id number]) READING TEACHER Interface, Out [employer] Prov Query - 06/09/2021 10:39 AM CST The following lab order(s) may be associated with the Result Note below: URIC ACID; BASIC METABOLIC PANEL Notes recorded by Deepti Rivera MD on 02/27/2021 at 4:48 PM CDT Results reviewed, the kidney function looks stable with a creatinine of 1.2 to an estimated GFR of 46 mL/min. In December creatinine was slightly worse at 1.35. The sodium is normal. The potassium is back to normal at 4.6. I do not recommend any changes at this time Deepti Rivera MD ------ Notes recorded by Kirk Pino RN on 02/27/2021 at 9:02 AM CDT 01/22/21 [facility] [...] about 3 months with labs beforehand. ...... Kirk Pino RN 02/27/2021, 9:01 AM READING TEACHER Interface, Out [employer] Prov Query - 06/09/2021 10:39 AM CST The following lab order(s) may be associated with the following Patient Result Comment (Entered by Juan Cho MD at 02/26/2021 7:07 PM): HGB A1C Improved [id number] goal is less than 8.0 with a diagnosis of [id number] (estimated Average Glucose) (%) (mg/dL)5 97 6 126 7 154 8 183 9 212 10 240 11 269 12 298 Normal blood sugar A1c 5.6 and lessPrediabetes diagnosed by an A1c 5.7-6.4Diabetes diagnosed by an A1c 6.5 and above READING TEACHER Interface, Out [employer] Prov Query - 06/09/2021 10:39 AM CST The following lab order(s) may be associated with the following Patient Result Comment (Entered by Deepti Rivera MD at 02/27/2021 3:48 PM): URIC ACID Results reviewed, the kidney function looks stable with a creatinine of 1.2 to an estimated GFR of 46 mL/min. In December creatinine was slightly worse at 1.35. The sodium is normal. The potassium is back to normal at 4.6.I do not recommend any changes at this timeDeepti Rivera MD READING TEACHER Interface, Out [employer] Prov Query - 06/09/2021 10:39 AM CST The following lab order(s) may be associated with the following Patient Result Comment (Entered by Deepti Rivera MD at 02/27/2021 3:48 PM): BASIC METABOLIC PANEL Results reviewed, the kidney function looks stable with a creatinine of 1.2 to an estimated GFR of 46 mL/min. In December creatinine was slightly worse at 1.35. The sodium is normal. The potassium is back to normal at 4.6.I do not recommend any changes at this timeDeepti Rivera MD READING TEACHER documented in this encounter Plan of Treatment Upcoming Encounters Date Type Specialty Care Team Description 08/13/2022 Appointment Radiology Denise Aguirre APRN, ASSOCIATE PROFESSOR OF PHYSICS [address] [place], [place] [address] (Wo rk) 08/13/2022 Appointment Hematology and Oncology Denise Aguirre APRN, ASSOCIATE PROFESSOR OF PHYSICS [address] [place], [place] [address] (Wo rk) documented as [...] as of this encounter Visit Diagnoses Diagnosis Hyperuricemia Other abnormal blood chemistry documented in this encounter Care Teams Chief Information Security Officer Relationship Specialty Start Date End Date Elyse Paredes MD PCP - General Family Practice 03/19/17 [address] [address] documented as of this encounter
--- OUTSIDE RECORDS SUMMARY | 2022-07-02 13:50 | XMS_ITS | Encounter Summary ---
:1950 Author Organization [employer] Address [address] [place] [address] Care Team Providers Name Role Phone Elyse Paredes MD Primary Care Provider Reason for Referral Medication Prior Authorization - Closed Specialty Diagnoses / Procedures Referred By Contact Refer red To Contact Juan Zaragoza MD [address] [place] [address] Referral ID Status Reason Start Date Expiration Date Visits Requ ested Visits Authorized [id number] Closed 1 1 Reason for Visit Reason Comments Refill OZEMPIC, 1 MG/DOSE, 4 MG/3ML injection [Pharmacy Med Name: OZEMPIC 1MG PER DOSE (1X4MG PEN)] Encounter Details Date Type Department Care Team Description 10/15/2021 Refill Specialty Center [address], Refill (OZEMPIC, 1 Endocrinology Clinic MG/DOSE, 4 MG/3ML [address] injection [[place] [address] [place], [place] Name: OZEMPIC 1MG PER [phone] DOSE (1X4MG PEN)]) [phone] (Wo rk) Social History Tobacco Use Types Packs/Day Years Used Date Smoking Tobacco: Former Cigarettes Quit : 08/02/1981 Smokeless Tobacco: Never Alcohol Use Standard Drinks/Week Comments No 0 (1 standard drink = 0.6 oz pure alcoho l) Sex Assigned at Date Recorded Not on file documented as of this encounter Nursing Notes Failinger, Jacquelyn A, RN - 10/16/2021 4:04 PM CDT Completed per physician's orders. Jacquelyn Matos RN 4:04 PM 10/16/2021 Interface, Out [employer] Prov Query - 10/15/2021 11:33 AM CDT OZEMPIC, 1 MG/DOSE, 4 MG/3ML injection [Pharmacy Med Name: OZEMPIC 1MG PER DOSE (1X4MG PEN)] None Exists -> The medication is active at more than one strength (1.34 mg/ml on 10/24/2020, 1.34 mg/ml on 10/24/2020). -> Medication cannot be delegated. Last qualifying visit: 03/17/2021 (in Endocrinology with JUAN ZARAGOZA) Next scheduled visit: None Last ordered by JUAN ZARAGOZA: 10/24/2020 (356 days ago) QTY: 3, Refills: 11, Sig: inject 1 mg under the skin once weekly (unchanged) Powered by [facility], Reference: [id number], 10/15/2021 11:33:29 AM CDT, Pool:MARY YANEZ RN ([id number]) documented in this encounter Plan of Treatment Upcoming Encounters Date Type Specialty Care Team Description 08/13/2022 Appointment Radiology Denise Aguirre, A AND P TECHNICIAN, CHEMICAL PROCESSING LABORER [address] [place], [place] [address] (Wo rk) 08/13/2022 Appointment Hematology and Oncology Denise Aguirre, GRIFFIN, CHEMICAL PROCESSING LABORER [address] [place], [place] [address] (Wo rk) documented as [...] filedocumented in this encounter Care Teams Laborer Syrup Machine Relationship Specialty Start Date End Date Elyse Paredes MD PCP - General Family Practice 03/19/17 [address] [place] [address] documented as of this encounter
--- OUTSIDE RECORDS SUMMARY | 2022-07-02 13:50 | XMS_ITS | Encounter Summary ---
:1950 Author Organization [employer] Address [address] [place] [id number] Care Team Providers Name Role Phone Elyse Paredes MD Primary Care Provider Encounter Details Date Type Department Care Team Description 01/20/2021 Lab Visit [facility] Coronary artery disease involving lovelock coronary artery of lovelock heart without angina pectoris; Laboratory Stage 3a chronic kidney dise ase (HRC); [address] Essential hypertension [place] [phone] Social History Tobacco Use Types Packs/Day Years Used Date Smoking Tobacco: Former Cigarettes Quit : 08/02/1981 Smokeless Tobacco: Never Alcohol Use Standard Drinks/Week Comments No 0 (1 standard drink = 0.6 oz pure alcoho l) Sex Assigned at Date Recorded Not on file documented as of this encounter Progress Notes Kirk Pino RN - 01/20/2021 7:20 AM CDT Previsit lab for appt tomorrow 01/22. Kirk Pino RN 01/21/2021, 11:24 AM Prasanna Rivera MD - 01/20/2021 7:20 AM CDT Results reviewed and discussed in detail during the office visit today Prasanna Rivera MD documented in this encounter Plan of Treatment Upcoming Encounters Date Type Specialty Care Team Description 08/13/2022 Appointment Radiology Denise Aguirre, GRIFFIN, MACHINE CRATER [address] [place], [place] [address] (Wo rk) 08/13/2022 Appointment Hematology and Oncology Denise Aguirre, GRIFFIN, MACHINE CRATER [address] [place], [place] [address] (Wo rk) documented as [...] Name Priority Date/Time Associated Diagnosis Comme nts ALBUMIN/CREAT RATIO Routine 01/20/2021 12:21 Stage 3a chronic Results for this PM CDT kidney disease ( HRC) procedure are in Essential the results hypertension section. LIPID PANEL AND Routine 01/20/2021 11:56 Coronary artery Resul ts for this DIRECT LDL(IF AM CDT disease involving procedure are in NEEDED) lovelock coronary the results artery of lovelock section. heart without angina pectoris documented in this encounter Results Microalbumin/Creatinine Ratio (01/20/2021 12:21 PM CDT) [facility] Method Time Signature Albumin, 30.5 mg/L 01/20/2021 [facility] Urine, Random 4:04 PM CDT CEN[facility]AL LAB Creatinine, 188 >20 mg/dL 01/20/2021 [facility] Urine, Random 4:04 PM CDT CENTRAL LAB Albumin/Creati 16 <30 mg/g 01/20/2021 [facility] nine Ratio, 4:04 PM CDT CENTRAL LAB Urine, Random Specimen Anatomical Collection Method Collection Time Receive d Time (Source) Location / / Volume Laterality Urine Non-blood 01/20/2021 12:21 01/20/2021 Collection / PM CDT 12:21 PM CDT Unknown Prasanna Rivera MD LAB_1 Performing Organization Address City/[facility] Code Phon e Number [facility]AL LAB [address] [address] Lipid Panel and Direct LDL(If Needed) (01/20/2021 11:56 AM CDT) [facility] Method Time Signature Cholesterol 118 0 - 199 01/20/2021 [facility] mg/dL 4:08 PM CDT CENTRAL LAB Triglyceride 141 <=149 01/20/2021 [facility] mg/dL 4:08 PM CDT CENTRAL LAB HDL Cholesterol 44 >=40 01/20/2021 [facility] mg/dL 4:08 PM CDT [facility]AL LAB LDL, Calculated 46 <130 01/20/2021 [facility] mg/dL 4:08 PM CDT CENTRAL LAB Non HDL Chol, 74 <=159 01/20/2021 [facility] Calculated mg/dL 4:08 PM CDT CENTRAL LAB Cholesterol/HDL 2.7 01/20/2021 [facility] Ratio 4:08 PM CDT CENTRAL LAB Hours Fasting 12 01/20/2021 [facility] 4:08 PM CDT CENTER LABORATORY Specimen Anatomical Collection Method / Collection Time Recei gil Time (Source) Location / Volume Laterality Blood Venipuncture / 01/20/2021 11:56 Unknown AM CDT 11:56 AM CDT Elyse Paredes MD LAB_1 Performing Organization Address City/State/ZIP Code Phon e Number [facility] [address] [address] [facility] [address] [place] [address] LABORATORY documented in this encounter Visit Diagnoses Diagnosis Coronary artery disease involving lovelock coronary artery of lovelock heart without angina pectoris (HRC) Stage 3a chronic kidney disease (HRC) Essential hypertension (HRC) Unspecified essential hypertension documented in this encounter Care Teams Prosthetics Assistant Relationship Specialty Start Date End Date Elyse Paredes MD PCP - General [facility] 03/19/17 [address] [address] documented as of this encounter
--- OUTSIDE RECORDS SUMMARY | 2022-07-02 13:50 | XMS_ITS | Encounter Summary ---
:1950 Author Organization [employer] Address [address] [place] [address] Care Team Providers Name Role Phone Elyse Paredes MD Primary Care Provider Reason for Visit Reason Comments Follow-up Encounter Details Date Type Department Care Team Description 10/15/2020 Telemedicine [facility]3] Nephrology Prasanna Rivera Stage 3a chronic kidney dise ase (HRC) (Primary Dx); [address] MD Essential hypertension; [place] [address] [address] [facility] Hyperuricemia [phone] [place] [address] Social History Tobacco Use Types Packs/Day Years Used Date Smoking Tobacco: Former Cigarettes Quit : 08/02/1981 Smokeless Tobacco: Never Alcohol Use Standard Drinks/Week Comments No 0 (1 standard drink = 0.6 oz pure alcoho l) Sex Assigned at Date Recorded Not on file documented as of this encounter Last Filed Vital Signs Vital Sign Reading Time Taken Comments Blood Pressure 126/74 10/15/2020 1:03 PM CDT pt report ed Pulse 69 10/15/2020 1:03 PM CDT pt report ed Temperature - - Respiratory Rate - - Oxygen Saturation - - Inhaled Oxygen Concentration - - Weight 121.6 kg (268 lb) 10/15/2020 1:03 PM CDT pt repo rted Height - - Body Mass Index 49.02 09/16/2018 11:15 AM SETTLEMENT AGENT documented in this encounter Patient Instructions Patient InstructionsPrasanna Rivera MD - 10/15/2020 2:00 PM CDT As we discussed, the labs look pretty good Your GFR is up to 50 ml/min. If it goes to above 60 then it would even be considered normal The uric acid is 6.0, which is perfect Make sure you eat more foods with potassium in them. Blood pressure is doing well. Please do labs again and follow up in 3 months documented in this encounter Progress Notes Prasanna Rivera MD - 10/15/2020 2:00 PM CDT Nephrology Video Follow up Visit Name: Marci Diaz : 1950 DATE OF SERVICE: 10/15/2020 NAME OF REQUESTING PHYSICIAN: Elyse Paredes MD REASON FOR VISIT:follow up abnormal kidney function, joint pains, hyperuricemia, hypertension Encounter Diagnoses 1. Stage 3a chronic kidney disease 2. Essential hypertension (HRC) 3. Hyperuricemia ASSESSMENT/ PLAN: 1. Her serum creatinine improved to 1.14 eGFR improved 50 mg/min, she likely has hypertensive kidneydisease. Continue to monitor. Presently off celebrex. Continue to avoid NSAIDs. 2. Blood pressure well controlled. Continue chlorthalidone, metoprolol, and losartan. 3. History of diabetes, and she has a hsitory of microalbumin on her prior urine test, but presentlythe urine microalbumin was 9 mg/g, normal. She is taking losartan 50 mg daily. 4. Hyperuricemia - 6.0. Continue allopurinol 100 mg daily. Continue present dose. 5. She is getting the COVID vaccination series. Patient Instructions As we discussed, the labs look pretty good Your GFR is up to 50 ml/min. If it goes to above 60 then it would even be considered normal The uric acid is 6.0, which is perfect Make sure you eat more foods with potassium in them. Blood pressure is doing well. Please do labs again and follow up in 3 months Orders Placed This Encounter ??? Basic Metabolic Panel ??? Microalbumin/Creatinine Ratio ??? Uric Acid Thank you for allowing me to participate in the care of this pt. I will follow her closely with you. I spent 20 minutes video face to face time with the patient, evaluating, discussing findings, and coordinating a care plan. Additional 5 minutes were spent on lab orders and preparation of the AVS This visit was conducted via video. Location of clinician clinic. Location of patient home. Billing based on: Complexity she will return to the clinic in 3 months Prasanna Rivera MD Nephrology HISTORY OF PRESENTING ILLNESS: Thank you for allowing me to participate in the care of . Marci Diaz As you know, she is a 70 y.o. female with CKD 3a. Her creatinine is 1.14, it was 1.27, and 1.28. Shereports that she feels pretty good, and she has no significant bone pain. She was having very severebone pain prior to starting allopurinol. She is taking allopurinol which was increased to 100 mg daily. Uric acid is now 6.0, which is improved from 6.7. Prior to therapy it was 8.3. She is doing well otherwise. Her creatinine is improved to 1.14, from 1.27. eGFR is 50 ml/min. Sodium is normal. Potassium borderline at 3.4. She is trying to eat more fruits and imprve that. She does take chlorthalidone. Urine microalbumin is normal on the last test. Microalbumin to creatinine is 9. She is taking chlorthalidone 25 mg daily, losartan 50 mg daily, and metoprolol XL 25 mg daily. BP readings are stable, the last one was 126/74. She has been off celebrex since October of 2018. When she went off of it, her creatinine improved to 1.24, from 1.33 She has diabetes, hypertension, and severe arthritis. She also has CAD s/p LAD stent and a history of TAVR. She has had diabetes since the mid , initially treated with metformin. She reports that over the years she ended up being taken off metformin and transitioning to long and short acting insulin She has CAD, and underwent an LAD stent in May of 2017 at [facility]. She also underwent TAVR procedure in July of 2017. At that time she had a creatinine of 1.01. Post procedure her creatinine was 1.20 in August of 2018. The creatinine was unchanged at 1.20 in March of 2018. At her initial visit I had her get labs and the RF was normal and CRP was normal. About 10 years ago she had Kidney stones. She has seen Dr. Johns of the [facility] [place] in the past. PAST MEDICAL HISTORY: Past Medical History: Diagnosis Date ??? A-fib (HRC) ??? Breast cancer (HRC) 2018 [facility] - radiation ??? CAD (coronary artery disease) (HRC) [place] to LAD ??? HTN (hypertension) (C) ??? Hx of total knee arthroplasty Left knee ??? Hyperlipidemia (HRC) ??? Nephrolithiasis ??? DEDE on CPAP ??? S/P TAVR (transcatheter aortic valve replacement) 07/2017, [facility] ??? Uncontrolled type 2 diabetes mellitus, with long-term current use of insulin ([facility]) 03/19/2017 ALLERGIES: is allergic to erythromycin; lisinopril; and metformin. Social History Socioeconomic History ??? Marital status: Single Spouse name: Not on file ??? Number of children: Not on file ??? Years of education: Not on file ??? Highest education level: Not on file Occupational History ??? Not on file Tobacco Use ??? Smoking status: Former Smoker Quit date: 08/02/1981 Years since quittin.2 ??? Smokeless tobacco: Never Used Substance and Sexual Activity ??? Alcohol use: No ??? Drug use: Not on file ??? Sexual activity: Not on file Other Topics Concern ??? Not on file Social History Narrative ??? Not on file Social Determinants of Health Financial Resource Strain: ??? Difficulty of Paying Living Expenses: Food Insecurity: ??? Worried About Running Out of Food in the Last Year: ??? Ran Out of Food in the Last Year: Transportation Needs: ??? Lack of Transportation (Medical): ??? Lack of Transportation (Non-Medical): Physical Activity: ??? Days of Exercise per Week: ??? Minutes of Exercise per Session: Stress: ??? Feeling of Stress : Social Connections: ??? Frequency of Communication with Friends and Family: ??? Frequency of Social Gatherings with Friends and Family: ??? Attends [employer] Services: ??? Active Member of Clubs or Organizations: ??? Attends Club or Organization Meetings: ??? Marital Status: Intimate Partner Violence: ??? Fear of Current or Ex-Partner: ??? Emotionally Abused: ??? Physically Abused: ??? Sexually Abused: MEDICATIONS: ACCU-CHEK GERALD PLUS test strip, Check fasting / before meals, and at bedtime, . Pharmacy dispense brand based on insurance., Disp: 350 Strip, Rfl: 6 allopurinol (ZYLOPRIM) 100 MG tablet, Take 1 Tablet by mouth daily., Disp: 30 Tablet, Rfl: 3 aspirin, enteric-coated 81 MG enteric coated tablet, Take 1 Tab by mouth daily., Disp: 90 Tab, Rfl: 3 B-D UF III MINI PEN NEEDLES 31G X 5 MM needle, 4-5 times daily., Disp: 100 Each, Rfl: 11 Continuous Blood Gluc Accounting Representative (DEXCOM G6 WELDING SETTER) JAY, Use as directed for continuous glucose monitoring., Disp: 1 Device, Rfl: 0 Continuous Blood Gluc Sensor (DEXCOM G6 SENSOR) MISC, CHANGE SENSOR EVERY 10 DAYS, Disp: 3 Each, Rfl: 5 Continuous Blood Gluc Transmit (DEXCOM G6 TRANSMITTER) MISC, CHANGE EVERY 3 MONTHS, Disp: 1 Each, Rfl: 1 famotidine (PEPCID) 10 MG tablet, Take 10 mg by mouth., Disp: , Rfl: insulin glargine (LANTUS SOLOSTAR) 100 UNIT/ML pen, 60 units a day, Disp: 60 mL, Rfl: 4 insulin lispro (HUMALOG) 100 UNIT/ML injection vial, Use 10 units as a base with meals, plus slidingscale. Max dose 70 units daily, Disp: 30 mL, Rfl: 11 losartan (COZAAR) 50 MG tablet, Take 1 Tablet by mouth daily., Disp: 90 Tablet, Rfl: 3 OZEMPIC, 1 MG/DOSE, 2 MG/1.5ML injection, Inject 1 mg subcutaneously once a week., Disp: , Rfl: rosuvastatin (CRESTOR) 10 MG tablet, Take 1 Tab by mouth daily., Disp: 90 Tab, Rfl: 3 tamoxifen (NOLVADEX) 20 MG tablet, Take 1 Tablet by mouth daily., Disp: 90 Tablet, Rfl: 3 venlafaxine (EFFEXORXR) 37.5 MG 24 hour release capsule, Take 2 Capsules by mouth daily., Disp: , Rfl: warfarin (COUMADIN) 2.5 MG tablet, TAKE 1 TABLET BY MOUTH EVERY DAY, Disp: , Rfl: REVIEW OF SYSTEMS: As per HPI. + joint pains. PHYSICAL EXAM: Video Visit BP recently was stable GEN in NAD LABS: I personally reviewed the findings with the patient. Renal panel: Lab Results Component Value Date/Time SODIUM 138 10/07/2020 01:10 PM K 3.4 (L) 10/07/2020 01:10 PM CHLORIDE 100 10/07/2020 01:10 PM BUN 18 10/07/2020 01:10 PM CREATININE 1.14 (H) 10/07/2020 01:10 PM GFR 50 (L) 10/07/2020 01:10 PM GLUCOSE 220 (H) 10/07/2020 01:10 PM CA 9.4 10/07/2020 01:10 PM ANIONGAP 15 10/07/2020 01:10 PM Lab Results Component Value Date/Time CREATININE 1.14 (H) 10/07/2020 01:10 PM CREATININE 1.27 (H) 08/06/2020 02:01 PM CREATININE 1.28 (H) 05/28/2020 01:09 PM CREATININE 1.24 (H) 02/13/2020 01:04 PM CBC: Lab Results Component Value Date/Time HGB 13.3 10/07/2020 01:10 PM HbA1C: Hemoglobin A1C (%) Date Value 10/07/2020 7.7 (H) 08/06/2020 8.2 (H) Urine microalbumin/creatinine ratio: Ratio (mg/g creatinine) Date Value 03/19/2017 63 (H) Microalb/Creat Ratio, Urine Random (mg/g) Date Value 10/07/2020 9 08/06/2020 10 05/28/2020 26 See above for A/P Prasanna Rivera MD documented in this encounter Nursing Notes Peter Pino, DEJA - 10/15/2020 2:00 PM CDT Patient completed mobile check in for rooming and did not report any change. Lm x 1 for patient to get bp, hr, and weight for MD prior to visit. Peter Pino LPN 10/15/2020, 9:33 AM documented in this encounter Plan of Treatment Upcoming Encounters Date Type Specialty Care Team Description 08/13/2022 Appointment Radiology Denise Aguirre APRN, AIRCRAFT FUSELAGE FRAMER [address] [place], [place] [address] (Wo rk) 08/13/2022 Appointment Hematology and Oncology Denise Aguirre APRN, AIRCRAFT FUSELAGE FRAMER [address] [place], [place] [address] (Wo rk) documented as of this encounter Goals Goal Patient Goal Associated Recent Patient-Stated? Author Type Problems Progress Being active Diabetes Diabetes No Tere Education Education Tanner Ng, ARMAND, CDE Note: [...] bedtime. documented as of this encounter Results Microalbumin/Creatinine Ratio (01/20/2021 12:21 PM CDT) [facility] Time Signature Albumin, 30.5 mg/L 01/20/2021 [facility] Urine, Random 4:04 PM CDT CENTRAL LAB Creatinine, 188 >20 mg/dL 01/20/2021 [facility] Urine, Random 4:04 PM CDT CENTRAL LAB Albumin/Creati 16 <30 mg/g 01/20/2021 [facility] nine Ratio, 4:04 PM CDT CENTRAL LAB Urine, Random Specimen Anatomical Collection Method Collection Time Receive d Time (Source) Location / / Volume Laterality Urine Non-blood 01/20/2021 12:21 01/20/2021 Collection / PM CDT 12:21 PM CDT Unknown Prasanna Rivera MD LAB_1 Performing Organization Address [facility] Phon e Number [facility] CENTRAL LAB [address] [address] (ABNORMAL) Uric Acid (01/17/2021 11:03 AM CDT) P athologist Signature Uric Acid 7.4 (H) 2.6 - 6.0 01/17/2021 [facility] mg/dL 3:16 PM CDT CENTRAL LAB Specimen Anatomical Collection Method / Collection Time Recei gil Time (Source) Location / Volume Laterality Blood Venipuncture / 01/17/2021 11:03 Unknown AM CDT 11:03 AM CDT Prasanna Rivera MD LAB_1 Performing Organization Address [facility] Phon e Number [facility] CENTRAL LAB [address] [address] (ABNORMAL) Basic Metabolic Panel (01/17/2021 11:03 AM CDT) Patholo gist Method Time Signature Sodium 138 136 - 145 01/17/2021 [facility] mmol/L 3:16 PM CDT CENTRAL LAB Potassium 3.2 (L) 3.5 - 5.1 01/17/2021 [facility] mmol/L 3:16 PM CDT CENTRAL LAB Chloride 100 98 - 109 01/17/2021 [facility] mmol/L 3:16 PM CDT CENTRAL LAB CO2 24 20 - 29 01/17/2021 [facility] mmol/L 3:16 PM CDT CENTRAL LAB Anion Gap 14 7 - 16 01/17/2021 [facility] mmol/L 3:16 PM CDT CENTRAL LAB Calcium 9.4 8.4 - 01/17/2021 [facility] 10.4 3:16 PM CDT CENTRAL LAB mg/dL BUN 25 7 - 26 01/17/2021 [facility] mg/dL 3:16 PM CDT CENTRAL LAB Creatinine 1.35 (H) 0.55 - 01/17/2021 [facility] 1.02 3:16 PM CDT CENTRAL LAB mg/dL GFR, Estimated 40 (L) >60 01/17/2021 [facility] mL/min/1. 3:16 PM CDT CENTRAL LAB 73m2 Glucose 246 (H) 70 - 100 01/17/2021 [facility] mg/dL 3:16 PM CDT CENTRAL LAB Comment: The given reference range is fo r the fasting state. Non-fasting reference range for glucose is 70 - 180 mg/dL. Hours Fasting 1 01/17/2021 3:16 PM CDT [facility] Specimen Anatomical Collection Method / Collection Time Recei gil Time (Source) Location / Volume Laterality Blood Venipuncture / 01/17/2021 11:03 1 Unknown AM CDT 11:03 AM CDT Prasanna Rivera MD LAB_1 Performing Organization Address City/State/ZIP Code Phon e Number [facility] CENTRAL LAB [address] [address] [facility] [address] [place] [address] LABORATORY documented in this encounter Visit Diagnoses Diagnosis Stage 3a chronic kidney disease (HRC) - Primary Essential hypertension (HRC) Unspecified essential hypertension Hyperuricemia Other abnormal blood chemistry documented in this encounter Care Teams Weight Guesser Relationship Specialty Start Date End Date Elyse Paredes MD PCP - General Family Practice 03/19/17 [address] [facility] [place] [address] documented as of this encounter
--- OUTSIDE RECORDS SUMMARY | 2022-07-02 13:50 | XMS_ITS | Encounter Summary ---
:1950 Author Organization [facility] Address [address] [place] [address] Care Team Providers Name Role Phone Elyse Paredes MD Primary Care Provider Reason for Visit Reason Comments ASSESSMENT OF ADHERENCE/COMPLIANCE Encounter Details Date Type Department Care Team Description 03/17/2021 Phone Visit [facility] Kanika Donahue, Dyslipidemia, goal LDL below 100 (Primary Dx); MTM PharmD Coronary artery disease involving [place] coronary artery of [place] heart without angina pectoris; [address] Uncontrolled type 2 diabetes mellitus with hyperosmolarity without coma, with long-term current use of insulin (HRC); [place], [place] AV Essential hypertension [id number] [place], [place] [phone] [address] Social History Tobacco Use Types Packs/Day Years Used Date Smoking Tobacco: Former Cigarettes Quit : 08/02/1981 Smokeless Tobacco: Never Alcohol Use Standard Drinks/Week Comments No 0 (1 standard drink = 0.6 oz pure alcoho l) Sex Assigned at Date Recorded Not on file documented as of this encounter Progress Notes Kanika Donahue PharmD - 03/17/2021 11:00 AM CDT Images from the original note were not included. Subjective Marci Diaz is a 70 y.o. female who was referred by Insurance company. Visit conducted over the phone for medication review/education. PCP: Hazel Swartz At last MT visit 03/18/2020 with Evelio Vega, PharmD, rec???d pt schedule lab for INR, uric acid and rec???d pt discuss rosuvastatin dose increase with long distance operator. Pt denies med questions or concerns. She reports she just recently moved back to her hometown of [place], [place]. Plans to keep her current healthcare providers for now. DM2 Lantus 50 units daily Humalog 10 units before meals plus SS Ozempic 1 mg subcutaneously weekly Pt reports Dexcom ???changed my life?? . Pt states she used to be afraid of lows. Pt reports her low alarm is set at 80 so she catches it early. Happens a couple times per month. Pt denies s/s low BG readings. Understands sxs of hypoglycemia and appropriate tx. Foot care: She denies blisters, sores. Checks daily. Has a Alkhani???s neuroma Diet: Pt states she is working on avoiding high carb foods. Pt states she has lost 35 lbs during thelast year with intermittent fasting. She states she has discussed this with her provider. Exercise: Pt states she did not go out of the house during COV. Is trying to walk more. Setting upa stationary bike now. Pt has endo follow up today Afib, CAD, HTN Aspirin 81 mg daily Losartan 50 mg daily Metoprolol ER 25 mg daily Rosuvastatin 10 mg daily Warfarin 2 mg 1.5 tabs M,W, F and 2 tabs ROW- next INR Thurs- pt states last INR was low- she statesshe has monthly follow ups Home BP monitoring: None Follows with [facility]. Pt reports chlorthalidone was stopped by her ed transporter. Pt reports trace LE edema occasionally which pt relates to sodium in diet. She states since surgery she has had CASTOR. Pt states she used to take rosuvastatin 30 mg daily but it was reduced at some point. Depression Venlafaxine ER 37.5 mg daily Pt states she never needed to bump it up to 2 capsules. Feels like she is herself. Breast cancer Tamoxifen 20 mg daily H/o arthralgias with anastrozole. Denies hot flashes. Plan for total of 5 years (January 2024) Hyperuricemia Allopurinol 100 mg daily Pt states she didn???t have the typical gout flares. Pain has lessened with starting allopurinol andswitching anastrozole to tamoxifen. OA Acetaminophen 650 mg prn- takes only if it???s interfering in her daily activities -only takes 2 tabs daily -she states she is reluctant to take Tylenol because she is on so many other meds. Pt states she misses he Celebrex. Unable to take NSAIDs. Pt reports arthritis pain in hands, back, shoulders Pt states the acetaminophen helps some when she takes it. Supplements/OTC Famotidine 10 mg prn when pt has trigger foods late at night Pt reports she can???t remember to take calcium/D often. Pt states she has a hard time swallowing pills. Has tried finding gummies but needs to take so much that she would need to eat 5 gummies per dayand that it expensive. Eats twice daily and smaller portions. Has dairy four times per week. Pt denies headache, cough, chest pain, palpitations, abd pain, constipation, diarrhea, bleeding, muscle aches. Rises slowly from bed to avoid dizziness. Adherence: ??? # of times per day patient takes meds: 3 ??? # of missed doses in the past week: 0 ??? Use of supportive adherence tools: pill box ??? Med cost concerns: no Objective Refill History Lab Results Component Value Date SODIUM 138 02/26/2021 K 4.6 02/26/2021 CA 9.5 02/26/2021 BUN 18 02/26/2021 CREATININE 1.22 (H) 02/26/2021 GFR 46 (L) 02/26/2021 ALT 20 02/26/2021 HGB 13.0 02/26/2021 INR 1.8 (H) 12/21/2019 HGBA1C 7.3 (H) 02/26/2021 [id number] 8.2 (H) 08/09/2018 UMACR 7 02/26/2021 CHOL 118 01/20/2021 LDL 60 02/26/2021 HDL 44 01/20/2021 TRI 141 01/20/2021 TSH 4.44 10/07/2020 Uric Acid (mg/dL) Date Value 02/26/2021 4.9 Est CrCl: 55 mL/min Care Everywhere 02/13/21 INR 1.6 Cardiovascular Risk Summary: A previous ASCVD condition (heart disease, peripheral vascular disease,or stroke) has been identified. Cardiovascular risk could be reduced with attention to the following, in order of priority Weight loss Statin use or intensification Wizard?? Estimated body mass index is 49.02 kg/m?? as calculated from the following: Height as of 09/16/18: 5' 2 (1.575 m). Weight as of 10/15/20: 268 lb (121.6 kg). Pulse Readings from Last 3 Encounters: 10/15/20 69 10/06/19 81 07/21/19 88 BP Readings from Last 3 Encounters: 10/15/20 126/74 10/06/19 126/67 07/21/19 (!) 143/81 Assessment BP goal: <140/90. Pt is at goal. LDL goal: high intensity statin. Pt is not at goal. HgbA1C goal: <8%. Pt is at goal. 1. Antithrombotics and warfarin, tamoxifen Safety - Adverse Drug Reaction: clinically relevant drug interaction present - close monitoring rec'd. Last INR low. Status: Pending 2. Vitamins/supplements and calcium/D Convenience: More cost-effective alternative available - pt doesn't like large pills. Chewable calcium/D expensive. Status: Resolved 3. Pain control and acetaminophen ER 650 mg Effectiveness - Dosage Too Low: frequency inappropriate Status: Resolved 4. CAD and rosuvastatin Effectiveness - Dosage Too Low: dosage adjustment recommended Status: Pending Plan 1) Pt scheduled for follow up INR. 2) Rec pt try Tums 500 mg BID for calcium supplement with meals. Take separate vitamin D 1000 IU daily supplement as well. 3) Rec pt increase Tylenol ER 650 mg to 2 tabs q8 hrs prn pain. 4) Consider increasing rosuvastatin. Pt to discuss with her providers. Follow up with MTM Pharmacist in 1 year, prn sooner. Updated Lela med list and reviewed medications including indications with patient. Kanika Donahue PharmD Clinical Pharmacist Medication Therapy Management Program Billing Requirements: Recipient of visit: Patient Medicare CI: no Clinician location:home Patient location: home Billing based on time. Total time spent with patient 31 - 45 min minutes. # of DTPs: 4 # of DTPs resolved: 2 documented in this encounter Plan of Treatment Upcoming Encounters Date Type Specialty Care Team Description 08/13/2022 Appointment Radiology Denise Aguirre, HAND MOLDER AND CASTER, CUPBOARD BUILDER [address] [place], [place] [address] (Wo rk) 08/13/2022 Appointment Hematology and Oncology Denise Aguirre, HAND MOLDER AND CASTER, CUPBOARD BUILDER [address] [place], [place] [address] (Wo rk) documented as [...] as of this encounter Visit Diagnoses Diagnosis Dyslipidemia, goal LDL below 100 (HRC) - Primary Other and unspecified hyperlipidemia Coronary artery disease involving [place] coronary artery of [place] heart without angina pectoris (HRC) Uncontrolled type 2 diabetes mellitus wi th hyperosmolarity without coma, with long-term current use of insulin (HRC) Essential hypertension (HRC) Unspecified essential hypertension documented in this encounter Care Teams Carbon Furnace Operator Helper Relationship Specialty Start Date End Date Elyse Paredes MD PCP - General Family Practice 03/19/17 [address] [place] [address] documented as of this encounter
--- OUTSIDE RECORDS SUMMARY | 2022-07-02 13:50 | XMS_ITS | Encounter Summary ---
:1950 Author Organization [facility] Address [address] [place] [address] Care Team Providers Name Role Phone Elyse Paredes MD Primary Care Provider Reason for Visit Reason Comments FOLLOW-UP,DIABETES Encounter Details Date Type Department Care Team Description 11/25/2020 Telemedicine Specialty Center [address], Obesity, unspecified classification, unspecified obesity type, unspecified whether serious comorbidity present (Primary Dx); Endocrinology Clinic Essential hypertension; [address] Controlled type 2 diabetes mellitus with out complication, with long-term current use of insulin (HRC); [place] [address] [place], [place] Encounter for long-term (cur rent) use of medications; [phone] Coronary artery disease involving [place] coronary artery of [place] heart without angina pectoris Social History Tobacco Use Types Packs/Day Years Used Date Smoking Tobacco: Former Cigarettes Quit : 08/02/1981 Smokeless Tobacco: Never Alcohol Use Standard Drinks/Week Comments No 0 (1 standard drink = 0.6 oz pure alcoho l) Sex Assigned at Date Recorded Not on file documented as of this encounter Patient Instructions Patient InstructionsJuan Cho MD - 11/25/2020 1:00 PM CDT .ret documented in this encounter Progress Notes Juan Cho MD - 11/25/2020 1:00 PM CDT ENDOCRINOLOGY VIDEO RETURN NOTE 11/25/2020 Marci L Emily 70 y.o. HPI: The patient return for management of type 2 diabetes controlled coronary disease. ROS: As per HPI No current facility-administered [...] disease aortic valve replacement??in chronic renal insufficiency . Patient's A1c is improved at 7.7-7 6. The patient currently is not completing activity times is much better is encouraged restart possible. Patient has lost approximately 20-30 lb last year since starting Ozempic Patient may continue basilar 50 units once a day and 10 units of Humalog with meals in a pre meal scale of 2 units per each 50 points the base 150 and??2 units per each 50 points with a base of 200 before bed??and ozempic 1 mg weekly. ? RETURN IN 4-6 MONTHS PRIOR TO RETURN OBTAIN LABS, non fasting labs 2 weeks prior to return visit. ?? Video visit [facility] Patient location: home Total visit time 30 [...] Description 08/13/2022 Appointment Radiology Denise Aguirre APRN, ELEVATOR REPAIRER APPRENTICE [address] [place], [place] [address] (Wo rk) 08/13/2022 Appointment Hematology and Oncology Denise Aguirre APRN, ELEVATOR REPAIRER APPRENTICE [address] [place], [place] [address] (Wo rk) documented as [...] bedtime. documented as of this encounter Results LDL Direct (02/26/2021 1:09 PM CDT) P athologist Signature LDL, Direct 60 <=130 02/26/2021 [facility] mg/dL 4:41 PM CDT CENTRAL LAB Specimen Anatomical Collection Method / Collection Time Recei gil Time (Source) Location / Volume Laterality Blood Venipuncture / 02/26/2021 1:09 02/26/2021 1:09 Unknown PM CDT PM CDT Juan Cho MD LAB_1 Performing Organization Address [facility] Phon e Number [facility] CENTRAL LAB [address] [address] Microalb / Creat Ratio (02/26/2021 1:09 PM CDT) [facility] gist Method Time Signature Albumin, 7.3 mg/L 02/26/2021 [facility] Urine, Random 5:09 PM CDT CENTRAL LAB Creatinine, 100 >20 mg/dL 02/26/2021 [facility] Urine, Random 5:09 PM CDT CENTRAL LAB Albumin/Creati 7 <30 mg/g 02/26/2021 [facility] nine Ratio, 5:09 PM CDT CENTRAL LAB Urine, Random Specimen Anatomical Collection Method Collection Time Receive d Time (Source) Location / / Volume Laterality Urine Non-blood 02/26/2021 1:09 PM 1:09 Collection / CDT PM CDT Unknown Juan Cho MD LAB_1 Performing Organization Address [facility] [address] [address] ALT (SGPT) (02/26/2021 1:09 PM CDT) athologist Signature ALT (SGPT) 20 0 - 55 U/L 02/26/2021 [facility] 4:41 PM CDT CENTRAL LAB Specimen Anatomical Collection Method / Collection Time Recei gil Time (Source) Location / Volume Laterality Blood Venipuncture / 02/26/2021 1:09 02/26/2021 1:09 Unknown PM CDT PM CDT Juan Cho MD LAB_1 Performing Organization Address [facility] Phon e Number [facility] CENTRAL LAB [address] [address] Hgb (02/26/2021 1:09 PM CDT) P athologist Signature Hemoglobin 13.0 12.0 - 15.5 02/26/2021 [facility] g/dL 1:21 PM CDT CENTER LAB[facility]ORY Specimen Anatomical Collection Method / Collection Time Recei gil Time (Source) Location / Volume Laterality Blood Venipuncture / 02/26/2021 1:09 02/26/2021 1:09 Unknown PM CDT PM CDT Juan Cho MD LAB_1 Performing Organization Address City/[facility] Code Phon e Number [facility] LABOR[facility]ORY [address] [place] [address] (ABNORMAL) HgbA1c (02/26/2021 1:09 PM CDT) Patholo gist Method Time Signature Hemoglobin A1C 7.3 (H) <=5.6 % 02/26/2021 [facility] 4:46 PM CDT C[facility]AL LAB Specimen Anatomical Collection Method / Collection Time Recei gil Time (Source) Location / Volume Laterality Blood Venipuncture / 02/26/2021 1:09 02/26/2021 1:09 Unknown PM CDT PM CDT Narrative [facility] CENTRAL LAB - 02/26/2021 4:46 PM CDT For patients not previously diagnosed with diabetes: 5.7-6.4%: Increased risk for diabetes 6.5% and greater: Diagnostic for diabete s For patients diagnosed with diabetes: <8.0%: Goal of therapy for ages 18-75 Clinicians may recommend a higher or low er goal for specific individuals. Juan Cho MD LAB_1 Performing Organization Address [facility] Phon e Number [facility] CENTRAL LAB [address] [address] documented in this encounter Visit Diagnoses Diagnosis Obesity, unspecified classification, uns pecified obesity type, unspecified whether serious comorbidity present (HRC) - Prim sheela Essential hypertension (HRC) Unspecified essential hypertension Controlled type 2 diabetes mellitus with out complication, with long-term current use of insulin (HRC) Encounter for long-term (current) use of medications Encounter for long-term (current) use of other medications Coronary artery disease involving [place] coronary artery of [place] heart without angina pectoris (HRC) documented in this encounter Care Teams Pattern Illustrator Relationship Specialty Start Date End Date Elyse Paredes MD PCP - General [facility] Practice 03/19/17 [address] [place] [address] documented as of this encounter
--- OUTSIDE RECORDS SUMMARY | 2022-07-02 13:50 | XMS_ITS | Encounter Summary ---
:1950 Author Organization [employer] Address [address] [place] [address] Care Team Providers Name Role Phone Elyse Paredes MD Primary Care Provider Encounter Details Date Type Department Care Team Description 01/17/2021 Lab Visit Specialty Center Coronary artery disease involving [place] coronary artery of [place] heart without angina pectoris (Primary Dx); Laboratory Stage 3a chronic kidney dise ase (HRC); [address] [place] [address] Social History Tobacco Use Types Packs/Day Years Used Date Smoking Tobacco: Former Cigarettes Quit : 08/02/1981 Smokeless Tobacco: Never Alcohol Use Standard Drinks/Week Comments No 0 (1 standard drink = 0.6 oz pure alcoho l) Sex Assigned at Date Recorded Not on file documented as of this encounter Progress Notes Kirk Pino RN - 01/17/2021 11:00 AM CDT Previsit labs for appt on 01/22. Last result note for potassium lab: Please let the patient know that the creatinine is 1.14, and estimated GFR is 50, which is a little better than before. The potassium is low. This is probably due to the chlorthalidone. I would recommend increasing intake of high potassium foods - bananas, citrus fruits, tomatoes. Fresh fruits If the potassium remains low we could start a potassium supplement. The urine test shows no protein. That is good. The uric acid looks normal this time. ----- Kirk Pino RN 01/17/2021, 4:07 PM ?? Prasanna Rivera MD Prasanna Rivera MD - 01/17/2021 11:00 AM CDT Results were discussed in detail today during the office visit and appropriate medical changes were made including holding the chlorthalidone Prasanna Rivera MD documented in this encounter Plan of Treatment Upcoming Encounters Date Type Specialty Care Team Description 08/13/2022 Appointment Radiology Denise Aguirre APRN, CASEWORK SPECIALIST [address] [place], [place] [address] (Wo rk) 08/13/2022 Appointment Hematology and Oncology Denise Aguirre APRN, CASEWORK SPECIALIST [address] [place], [place] [address] (Wo rk) documented as [...] Associated Diagnosis Comme nts BASIC METABOLIC Routine 01/17/2021 11:03 Stage 3a chronic Resu lts for this PANEL AM CDT kidney disease (HRC) procedu re are in the results section. URIC ACID Routine 01/17/2021 11:03 Hyperuricemia Results fo r this AM CDT procedure are i n the results section. documented in this encounter Results Lipid Panel and Direct LDL(If Needed) (01/20/2021 11:56 AM CDT) Patholo gist Method Time Signature Cholesterol 118 0 - 199 01/20/2021 [facility] mg/dL 4:08 PM CDT CENTRAL LAB Triglyceride 141 <=149 01/20/2021 [facility] mg/dL 4:08 PM CDT CENTRAL LAB HDL Cholesterol 44 >=40 01/20/2021 [facility] mg/dL 4:08 PM CDT CENTRAL LAB LDL, Calculated 46 <130 01/20/2021 [facility] mg/dL 4:08 PM CDT CENTRAL LAB Non HDL Chol, 74 <=159 01/20/2021 [facility] Calculated mg/dL 4:08 PM CDT CENTRAL LAB Cholesterol/HDL 2.7 01/20/2021 [facility] Ratio 4:08 PM CDT CENTRAL LAB Hours Fasting 12 01/20/2021 [facility] 4:08 PM CDT [facility] Specimen Anatomical Collection Method / Collection Time Recei gil Time (Source) Location / Volume Laterality Blood Venipuncture / 01/20/2021 11:56 1 Unknown AM CDT 11:56 AM CDT Elyse Paredes MD LAB_1 Performing Organization Address City/[facility] Phon e Number [facility] CENTRAL LAB [address] [address] SPECIALTY CENTER [address] [place] [address] LABORATORY (ABNORMAL) Uric Acid (01/17/2021 11:03 AM CDT) P athologist Signature Uric Acid 7.4 (H) 2.6 - 6.0 01/17/2021 [facility] mg/dL 3:16 PM CDT CENTRAL LAB Specimen Anatomical Collection Method / Collection Time Recei gil Time (Source) Location / Volume Laterality Blood Venipuncture / 01/17/2021 11:03 1 Unknown AM CDT 11:03 AM CDT Prasanna Rivera MD LAB_1 Performing Organization Address [facility] Phon [facility] Number [facility] [address] [address] (ABNORMAL) Basic Metabolic Panel (01/17/2021 11:03 AM CDT) [facility] Method Time Signature Sodium 138 136 - 145 01/17/2021 [facility] mmol/L 3:16 PM CDT CENTRAL LAB Potassium 3.2 (L) 3.5 - 5.1 01/17/2021 [facility] mmol/L 3:16 PM CDT CENTRAL LAB Chloride 100 98 - 109 01/17/2021 [facility] mmol/L 3:16 PM CDT CENTRAL LAB CO2 24 20 - 29 01/17/2021 [facility] mmol/L 3:16 PM CDT CENTRAL LAB Anion Gap 14 7 - 16 01/17/2021 [facility] mmol/L 3:16 PM CDT CENTRAL LAB Calcium 9.4 8.4 - 01/17/2021 [facility] 10.4 3:16 PM CDT CENTRAL LAB mg/dL BUN 25 7 - 26 01/17/2021 [facility] mg/dL 3:16 PM CDT CENTRAL LAB Creatinine 1.35 (H) 0.55 - 01/17/2021 [facility] 1.02 3:16 PM CDT CENTRAL LAB mg/dL GFR, Estimated 40 (L) >60 01/17/2021 [facility] mL/min/1. 3:16 PM CDT CENTRAL LAB 73m2 Glucose 246 (H) 70 - 100 01/17/2021 [facility] mg/dL 3:16 PM CDT CENTRAL LAB Comment: [...] Prasanna Rivera MD LAB_1 Performing Organization Address [facility] Phon e Number [facility] CENTRAL LAB [address] [address] SPECIALTY CENTER [address] [phone] LABORATORY documented in this encounter Visit Diagnoses Diagnosis Coronary artery disease involving [place] coronary artery of [place] heart without angina pectoris (HRC) - Primary Stage 3a chronic kidney disease (HRC) Hyperuricemia Other abnormal blood chemistry documented in this encounter Care Teams Morphologist Relationship Specialty Start Date End Date Elyse Paredes MD PCP - General Family Practice 03/19/17 [address] [place] [address] documented as of this encounter
--- OUTSIDE RECORDS SUMMARY | 2022-07-02 13:50 | XMS_ITS | Encounter Summary ---
:1950 Author Organization [facility] Address [address] [place] [address] Care Team Providers Name Role Phone Elyse Paredes MD Primary Care Provider Reason for Visit Reason Comments Follow-up Encounter Details Date Type Department Care Team Description 01/22/2021 Telemedicine [facility] Nephrology Prasanna Rivera, Stage 3a chronic kidney dise ase (HRC); [address] Mona Maxwell MD Hyperuricemia; [place] [address] [address] Essential hypertension [phone] [place], [place] [id number] Social History Tobacco Use Types Packs/Day Years Used Date Smoking Tobacco: Former Cigarettes Quit : 08/02/1981 Smokeless Tobacco: Never Alcohol Use Standard Drinks/Week Comments No 0 (1 standard drink = 0.6 oz pure alcoho l) Sex Assigned at Date Recorded Not on file documented as of this encounter Patient Instructions Patient InstructionsPrasanna Rivera MD - 01/22/2021 2:00 PM CDT It was a pleasure discussing your kidney [...] have labs in about 4 weeks (ordered) The uric acid was high at 7.4, despite taking allopurinol 100 mg daily. The chlorthalidone may be causing a high uric acid. - Stop chlorthlidone - Repeat uric acid level in 4 weeks - If uric acid remains above 6, the allopurinol dose may need to be increased The urine test was negative for any significant protein spilling, which is a good result. Continue taking the losartan. Follow up in about 3 months with labs beforehand. documented in this encounter Progress Notes Prasanna Rivera MD - 01/22/2021 2:00 PM CDT Nephrology Video Follow up Visit Name: Marci Diaz : 1950 DATE OF SERVICE: 01/22/2021 NAME OF REQUESTING PHYSICIAN: Elyse Paredes MD REASON FOR VISIT:follow up abnormal kidney function, joint pains, hyperuricemia, hypertension Encounter Diagnoses 1. Stage 3a chronic kidney disease (HRC) 2. Hyperuricemia 3. Essential hypertension (HRC) ASSESSMENT/ PLAN: 1. Chronic kidney disease stage IIIA. Her most recent labs showed increasing creatinine 1.35 this past week, up from 1.14 previously. I am a bit concerned, given that her potassium is also low in her uric acid went up, that she is getting a bit dehydrated on chlorthalidone. Her potassium is 3.2. Uric acid was increased to 7.4. I recommend stopping the chlorthalidone for now and rechecking the BMP in 4 weeks 2. Her previous creatinine was 1.14 and GFR was 50 ml/min. She has hypertensive kidney disease. Continue to monitor. Presently off celebrex. Continue to avoid NSAIDs. 3. Blood pressure well controlled. Continue metoprolol, and losartan. Hold chlorthalidone for now. If she develops worse blood pressure readings or edema, then I would consider starting her on hydrochlorothiazide 12.5 mg daily as lower dose of thiazide 4. History of diabetes, and she has a hsitory of microalbumin on her prior urine test, but presentlythe urine microalbumin normal. She is taking losartan 50 mg daily. 5. Hyperuricemia - uric acid is 7.4. It was down to 6.0. Dehydration as a result of the thiazide could be causing it to go back up. Continue allopurinol 100 mg daily. Recheck uric acid in 1 month Patient Instructions It was a pleasure discussing your kidney [...] have labs in about 4 weeks (ordered) The uric acid was high at 7.4, despite taking allopurinol 100 mg daily. The chlorthalidone may be causing a high uric acid. - Stop chlorthlidone - Repeat uric acid level in 4 weeks - If uric acid remains above 6, the allopurinol dose may need to be increased The urine test was negative for any significant protein spilling, which is a good result. Continue taking the losartan. Follow up in about 3 months with labs beforehand. Orders Placed This Encounter ??? Basic Metabolic Panel ??? Uric Acid ??? Basic Metabolic Panel ??? Uric Acid ??? allopurinol (ZYLOPRIM) 100 MG tablet Thank you for allowing me to participate in the care of this pt. I will follow her closely with you. I spent 20 minutes video face to face time with the patient, evaluating, discussing findings, and coordinating a care plan. Additional 10 minutes were spent on lab orders and preparation of the AVS This visit was conducted via video. Location of clinician clinic. Location of patient home. Billing based on: Complexity she will return to the clinic in 3 months Prasanna Rivera MD Nephrology HISTORY OF PRESENTING ILLNESS: Thank you for allowing me to participate in the care of Ms. Marci Diaz Patient was seen on Video today for a video telehealth visit. As you know, she is a 70 y.o. female with CKD 3a. She had some CASTRO and fatigue with a history of CAD and valve replacement, so she did a nuclear stress test and it was ok. Her creatinine was increased to 1.35, potassium was low at 3.2 and her uric acid is elevated again to 7.4. She reports she might be a little dehydrated. She does take chlorthalidone as well as metoprolol and losartan. She denies much edema, it only happens when she stands for longer periods of time. She has lost about 32 lbs over the last year. She is controlling blood sugar. Urine microalbumin is normal on screening. Prior creatinine was 1.14, 1.27, and 1.28. She reports that she feels pretty good, and she has no significant bone pain. Uric acid is now 6.0, which is improved from 6.7. Prior to therapy it was 8.3. She is doing well otherwise. Urine microalbumin is normal on the last test. She is taking chlorthalidone 25 mg daily, losartan 50 mg daily, and metoprolol XL 25 mg daily. BP readings are stable. She has been off celebrex since October [...] LAD stent in May of 2017 at [place]. She also underwent TAVR procedure in July [...] She has seen Dr. Johns of the [facility] [place] in the past. No current kidney stone issues in the last 3 years. PAST MEDICAL HISTORY: Past Medical History: Diagnosis Date ??? A-fib (HRC) ??? Breast cancer (HRC) 2018 IDC - radiation ??? CAD (coronary artery disease) (C) JEFFERSON to LAD ??? HTN (hypertension) (HRC) ??? Hx of total knee arthroplasty Left knee ??? Hyperlipidemia (HRC) ??? Nephrolithiasis ??? DEDE on CPAP ??? S/P TAVR (transcatheter aortic valve replacement) 07/2017, [facility] ??? Uncontrolled type 2 diabetes mellitus, with long-term current use of insulin ([facility]) 03/19/2017 ALLERGIES: is allergic to erythromycin, lisinopril, and metformin. Social History Socioeconomic History ??? Marital status: Single Spouse name: Not on file ??? Number of children: Not on file ??? Years of education: Not on file ??? Highest education level: Not on file Occupational History ??? Not on file Tobacco Use ??? Smoking status: Former Smoker Quit date: 08/02/1981 Years since quittin.5 ??? Smokeless tobacco: Never Used Vaping Use ??? Vaping Use: Never used Substance and Sexual Activity ??? Alcohol use: [...] Gatherings with Friends and Family: ??? Attends Religion Services: ??? Active Member of Clubs or [...] Rfl: 6 allopurinol (ZYLOPRIM) 100 MG tablet, TAKE 1 TABLET BY MOUTH DAILY, Disp: 90 Tablet, Rfl: 0 aspirin, enteric-coated 81 MG enteric coated tablet, Take 1 Tab by mouth daily., Disp: 90 Tab, Rfl: 3 B-D UF III MINI PEN NEEDLES 31G X 5 MM needle, USE FOUR TO FIVE TIMES DAILY, Disp: 100 Each, Rfl: 3 Continuous Blood Gluc Prototype Machine Operator (DEXCOM G6 MUD ANALYSIS SUPERVISOR) JAY, Use as directed for continuous glucose [...] by mouth daily., Disp: 90 Tablet, Rfl: 4 metoprolol succinate (TOPROL XL) 25 MG 24 hour release tablet, Take 1 Tablet by mouth daily., Disp: 90 Tablet, Rfl: 4 OZEMPIC, 1 MG/DOSE, 2 MG/1.5ML injection, INJECT 1 MG UNDER THE SKIN ONCE WEEKLY, Disp: 3 mL, Rfl: 11 rosuvastatin (CRESTOR) 10 MG tablet, Take 1 Tab by mouth daily., Disp: 90 Tab, Rfl: 3 venlafaxine (EFFEXORXR) 37.5 MG 24 hour release capsule, Take 2 Capsules by mouth daily., Disp: , Rfl: warfarin (COUMADIN) 2.5 MG tablet, TAKE 1 TABLET BY MOUTH EVERY DAY, Disp: , Rfl: REVIEW OF SYSTEMS: As per HPI. + fatigue and CASTRO . PHYSICAL EXAM: Video Visit BP recently was stable GEN in NAD LABS: I personally reviewed the findings with the patient. Renal panel: Lab Results Component Value Date/Time SODIUM 138 01/17/2021 11:03 AM K 3.2 (L) 01/17/2021 11:03 AM CHLORIDE 100 01/17/2021 11:03 AM BUN 25 01/17/2021 11:03 AM CREATININE 1.35 (H) 01/17/2021 11:03 AM GFR 40 (L) 01/17/2021 11:03 AM GLUCOSE 246 (H) 01/17/2021 11:03 AM CA 9.4 01/17/2021 11:03 AM ANIONGAP 14 01/17/2021 11:03 AM Lab Results Component Value Date/Time CREATININE 1.35 (H) 01/17/2021 11:03 AM CREATININE 1.14 (H) 10/07/2020 01:10 PM CREATININE 1.27 (H) 08/06/2020 02:01 PM CREATININE 1.28 (H) 05/28/2020 01:09 PM CBC: Lab Results Component Value Date/Time HGB 13.3 10/07/2020 01:10 PM HbA1C: Hemoglobin A1C (%) Date Value 11/21/2020 7.6 (H) 10/07/2020 7.7 (H) Urine microalbumin/creatinine ratio: Ratio (mg/g creatinine) Date Value 03/19/2017 63 (H) Microalb/Creat Ratio, Urine Random (mg/g) Date Value 01/20/2021 16 10/07/2020 9 08/06/2020 10 See above for A/P Prasanna Rivera MD documented in this encounter Nursing Peter Ghotra LPN - 01/22/2021 2:00 PM CDT Patient completed online check in for rooming and did not report any change. Peter Pino LPN 01/22/2021, 11:23 AM documented in this encounter Plan of Treatment Upcoming Encounters Date Type Specialty Care Team Description 08/13/2022 Appointment Radiology Denise Aguirre, PROTOTYPE MACHINE OPERATOR, LOUVER DOOR ASSEMBLER [address] [place], [place] [address] (Wo rk) 08/13/2022 Appointment Hematology and Oncology Denise Aguirre, PROTOTYPE MACHINE OPERATOR, LOUVER DOOR ASSEMBLER [address] [place], [place] [address] (Wo rk) documented as of this encounter Goals Goal Patient Goal Associated Recent Patient-Stated? Author Type Problems Progress Being active Diabetes Diabetes No Tere, Education Alma Ng, RD, CDE Note: Formatting of this [...] bedtime. documented as of this encounter Results Uric Acid (02/26/2021 1:09 [...] Organization Address City/State/ZIP Code Phon e Number [facility] CENTRAL [facility] [address] [address] (ABNORMAL) Basic Metabolic Panel (02/26/2021 1:09 PM CDT) [facility] Method Time Signature Sodium 138 136 - 145 02/26/2021 [facility] mmol/L 4:53 PM CDT CENTRAL LAB Potassium 4.6 3.5 - 5.1 02/26/2021 [facility] mmol/L 4:53 PM CDT CENTRAL LAB Chloride 106 98 - 109 02/26/2021 [facility] mmol/L 4:53 PM CDT CENTRAL LAB CO2 24 20 - 29 02/26/2021 [facility] mmol/L 4:53 PM CDT CENTRAL LAB Anion Gap 8 7 - 16 02/26/2021 [facility] mmol/L 4:53 PM CDT CENTRAL LAB Calcium 9.5 8.4 - 02/26/2021 [facility] 10.4 4:53 PM CDT CENTRAL LAB mg/dL BUN 18 7 - 26 02/26/2021 [facility] mg/dL 4:53 PM CDT CENTRAL LAB Creatinine 1.22 (H) 0.55 - 02/26/2021 [facility] 1.02 4:53 PM CDT CENTRAL LAB mg/dL GFR, Estimated 46 (L) >60 02/26/2021 [facility] mL/min/1. 4:53 PM CDT CENTRAL LAB 73m2 Glucose 162 (H) 70 - 100 02/26/2021 [facility] mg/dL 4:53 PM CDT CENTRAL LAB Comment: The given reference range is fo r the fasting state. Non-fasting reference range for glucose is 70 - 180 mg/dL. Hours Fasting 12 02/26/2021 4:53 PM CDT [facility] Specimen Anatomical Collection Method / Collection Time Recei gil Time (Source) Location / Volume Laterality Blood Venipuncture / 02/26/2021 1:09 02/26/2021 1:09 Unknown PM CDT PM CDT Narrative [facility] C[facility]AL [facility] - 02/26/2021 4:53 PM CDT [...] Organization Address City/State/ZIP Code Phon e Number [facility] [address] [address] [facility] [address] [place] [id number] [place] [address] LABORATORY documented in this encounter Visit Diagnoses Diagnosis Stage 3a chronic kidney disease (HRC) Hyperuricemia Other abnormal blood chemistry Essential hypertension (HRC) Unspecified essential hypertension documented in this encounter Care Teams Mine Wedge Sawyer Relationship Specialty Start Date End Date Elyse Paredes MD PCP - General Family Practice 03/19/17 [address] [place] [address] documented as of this encounter
--- OUTSIDE RECORDS SUMMARY | 2022-07-02 13:50 | XMS_ITS | Encounter Summary ---
:1950 Author Organization [facility] Address [address] [place] [address] Care Team Providers Name Role Phone Elyse Paredes MD Primary Care Provider Encounter Details Date Type Department Care Team Description 07/31/2021 Office Visit [facility] Cancer Denise Aguirre alignant neoplasm Center at [facility] M, GRIFFIN, HOMELAND SECURITY PROGRAM SPECIALIST of [address] of left breast in [address] [place] [address] [place], [place] [address] receptor positive [phone] (HRC) (Primary Dx) (Work) Social History Tobacco [...] Sign Reading Time Taken Comments Blood Pressure 129/61 07/31/2021 12:57 PM DIRECTOR ADULT Pulse - - Temperature 36.7 ??C (98 ??F) 07/31/2021 12:53 PM DIRECTOR ADULT Respiratory Rate 20 07/31/2021 12:53 PM DIRECTOR ADULT Oxygen Saturation 98% 07/31/2021 12:53 PM DIRECTOR ADULT Inhaled Oxygen Concentration - - Weight - - Height - - Body Mass Index - - documented in this encounter Patient Instructions Patient InstructionsDenise Aguirre APRN, BARRETT - 07/31/2021 1:00 PM DIRECTOR ADULT Dear Marci, It was so nice to see you today! Plan: 1. Continue tamoxifen 20 mg daily [...] months for interval H&P and breast exam. Call with any questions or concerns. The clinic phone number is [phone]. After hours, please call the nurse care line at [phone]. Denise Hernandez APRN, BARRETT Follow up scheduled and AVS printed. PJ 07/31/21 1:29 PM CTOR ADULT documented in this encounter Progress Notes Apolonia Angelo RN - 07/31/2021 1:00 PM CST Completed per provider's orders. QOPI: Is patient starting new chemotherapy medications today or in the near future? Cara Machado RN 07/31/2021 2:30 PM CTOR ADULT Denise Aguirre APRN, CNP - 07/31/2021 1:00 PM CST [facility] Oncology/Hematology Follow up Visit Note Date of Service: 07/31/2021 Cancer Summary (Printed and given to the patient): Diagnosis, Stage, Prognostic Factors: ?? 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 She recently relocated to [facility] in January of this year. She continues on the tamoxifen and overall tolerating well. She denies any new swelling in her extremities or calf tenderness. She continues on warfarin and her INR has been therapeutic. She denies anysignificant hot flashes, vaginal dryness, visual changes, or other concerns at today's visit. She denies any new palpable lumps/bumps, coughing, shortness of breath, abdominal pain or fullness, or bony pain. She has chronic arthritic pain in her hips, knees, and hands which is stable. ROS: Full 10 point review of systems was performed and was negative unless specified in HPI and as follows. ECOG performance status: 0. I have personally reviewed the patient's allergies, medications, past medical history, problem list and lab results in detail and updated the patient record as necessary. Physical Exam: BP 129/61 (BP Location: Right Arm, BP Cuff Size: Regular) Temp 98 ??F (36.7 ??C) (Temporal Artery) Resp 20 SpO2 98% General: Well-developed, NAD Cardiovascular: RRR. S1 S2 w/o r/m/g. No JVD. Pulmonary: CTAB. No adventitious lung sounds. Breasts: Left breast with well healed partial mastectomy scar. No palpable masses or axillary adenopathy. Right breast with dense tissue. No palpable masses. Abdominal: BS x 4. Obes. No tenderness [...] for disease recurrence at this time. Mammogram from today negative with plan for f/u in 12 months . Plan: 1. Continue tamoxifen 20 mg daily [...] months for interval H&P and breast exam. COUNSELING: All of the above was explained to the patient in lay language. The patient has verbalized a clear understanding of the discussion, asked appropriate questions, which have been answered to the patient's apparent satisfaction. The patient is in complete agreement with the plan outlined in thi s note. Denise Aguirre APRN, MANAGER OF MERCHANDISING-BC 07/31/2021 4:43 PM Pager # [phone] This note created using speech-recognition software and may contain unintended word substitutions. CTOR ADULT documented in this encounter Plan of Treatment Upcoming Encounters Date Type Specialty Care Team Description 08/13/2022 Appointment Radiology Denise Aguirre APRN, HOMELAND SECURITY PROGRAM SPECIALIST [address] [place], [place] [address] (Tonio sorenson) 08/13/2022 Appointment Hematology and Oncology Denise Aguirre APRN, BARRETT [address] [place], [place] [address] (Tonio sorenson) documented as of this encounter Goals Goal Patient Goal Associated Recent Patient-Stated? Author Type Problems Progress Being active Diabetes Diabetes No Tere, Education Education Tanner Ng RD, CALE Note: Formatting of this note might be d ifferent from the original. Being Active: Continue with Cardiac Reha b, 3 days per week, and work on gradually increasing your daily exercise on other days. Eating healthy Diabetes Education Diabetes Education No Tanner Carranza RD, CARMENE Note: Formatting of this note might be [...] Primary documented in this encounter Care Teams Processing Archivist Relationship Specialty Start Date End Date Elyse Paredes MD PCP - General Family Practice 03/19/17 [address] [place] [address] documented as of this encounter
--- OUTSIDE RECORDS SUMMARY | 2022-07-02 13:50 | XMS_ITS | Encounter Summary ---
:1950 Author Organization [facility] Address [address] [place] [address] Care Team Providers Name Role Phone Elyse Paredes MD Primary Care Provider Encounter Details Date Type Department Care Team Description 11/21/2020 Lab Visit Specialty Center Uncontro lled type 2 diabetes Laboratory mellitus with hyperosmolarit y [address] [place], [place] [address] current use of insulin ([facility]) [phone] Social History Tobacco Use Types Packs/Day Years [...] Team Description 08/13/2022 Appointment Radiology Denise Aguirre, BEAD FORMING MACHINE OPERATOR, RECORDS TECH [address] [place], [place] [address] (Wo rk) 08/13/2022 Appointment Hematology and Oncology Denise Aguirre APRN, RECORDS TECH [address] [place], [place] [address] (Wo rk) documented as [...] Name Priority Date/Time Associated Diagnosis Comme nts HGB A1C Routine 11/21/2020 12:53 PM Uncontrolled type 2 R esults for this CDT diabetes mellitus with proce dure are in hyperosmolarity without the results coma, with long-term section . current use of insulin (HRC) documented in this encounter Results (ABNORMAL) Hgb A1C (11/21/2020 12:53 PM CDT) [facility] gist Method Time Signature Hemoglobin A1C 7.6 (H) <=5.6 % 11/21/2020 [facility] 4:46 PM CDT CENTRAL LAB Specimen Anatomical Collection Method / Collection Time Recei gil Time (Source) Location / Volume Laterality Blood Venipuncture / 11/21/2020 12:53 1 Unknown PM CDT 12:53 PM CDT Narrative [facility] - 11/21/2020 4:46 PM CDT For patients not previously diagnosed with diabetes: 5.7-6.4%: Increased risk for diabetes 6.5% and greater: Diagnostic for diabete s For patients diagnosed with diabetes: <8.0%: Goal of therapy for ages 18-75 Clinicians may recommend a higher or low er goal for specific individuals. Juan Cho MD LAB_1 Performing Organization Address City/State/ZIP Code Phon e Number [facility] C[facility]AL [facility] [address] [address] documented in this encounter Visit Diagnoses Diagnosis Uncontrolled type 2 diabetes mellitus wi th hyperosmolarity without coma, with long-term current use of insulin (HRC) documented in this encounter Care Teams System Programmer Relationship Specialty Start Date End Date Elyse Paredes MD PCP - General Family Practice 03/19/17 [address] [place] [address] documented as of this encounter
--- OUTSIDE RECORDS SUMMARY | 2022-07-02 13:50 | XMS_ITS | Encounter Summary ---
:1950 Author Organization [facility] Address [address] [place] [address] Care Team Providers Name Role Phone Elyse Paredes MD Primary Care Provider Reason for Visit Reason Comments LAB TESTS, NOS Encounter Details Date Type Department Care Team Description 11/04/2020 Telephone [facility] [address] Freya Cho MD LAB TESTS, NOS Endocrinology Clinic [address] [place] [address] [place] [address] [phone] Social History Tobacco Use Types Packs/Day Years Used Date Smoking Tobacco: Former Cigarettes Quit : 08/02/1981 Smokeless Tobacco: Never Alcohol Use Standard Drinks/Week Comments No 0 (1 standard drink = 0.6 oz pure alcoho l) Sex Assigned at Date Recorded Not on file documented as of this encounter Nursing Notes Jacquelyn Matos RN - 11/07/2020 10:56 AM CDT Noted. Lab order placed. Thanks! Jacquelyn Matos RN 11/07/2020, 10:56 AM Gabrielle Antonio - 11/04/2020 4:32 PM CDT Patient on Lab Only Visit Schedule, no lab orders found in patient's chart. Please review and enter future lab orders or notify the patient that lab work is not needed. Lab Only Visit scheduled for November 21 documented in this encounter Plan of Treatment Upcoming Encounters Date Type Specialty Care Team Description 08/13/2022 Appointment Radiology Denise Aguirre, GRIFFIN, DUMB WAITER OPERATOR [address] [place], [place] [address] (Wo rk) 08/13/2022 Appointment Hematology and Oncology Denise Aguirre APRN, DUMB WAITER OPERATOR [address] [place], [place] [address] (Wo rk) documented as [...] bedtime. documented as of this encounter Results (ABNORMAL) Hgb A1C (11/21/2020 12:53 PM CDT) [facility] gist Method Time Signature Hemoglobin A1C 7.6 (H) <=5.6 % 11/21/2020 [facility] 4:46 PM CDT CENTRAL LAB Specimen Anatomical Collection Method / Collection Time Recei gil Time (Source) Location / Volume Laterality Blood Venipuncture / 11/21/2020 12:53 Unknown PM CDT 12:53 PM CDT [facility] CENTRAL LAB - 11/21/2020 4:46 PM CDT For patients not previously diagnosed with diabetes: 5.7-6.4%: Increased risk for diabetes 6.5% and greater: Diagnostic for diabete s For patients diagnosed with diabetes: <8.0%: Goal of therapy for ages 18-75 Clinicians may recommend a higher or low er goal for specific individuals. Juan Cho MD LAB_1 Performing Organization Address City/State/ZIP Code Phon e Number [facility] CENTRAL LAB [address] [phone] documented in this encounter Visit Diagnoses Diagnosis Uncontrolled type 2 diabetes mellitus wi th hyperosmolarity without coma, with long-term current use of insulin (HRC) - Primary documented in this encounter Care Teams Fan Balancer Relationship Specialty Start Date End Date Elyse Paredes MD PCP - General Family Practice 03/19/17 [address] [place] [address] documented as of this encounter
--- OUTSIDE RECORDS SUMMARY | 2022-07-02 13:50 | XMS_ITS | Encounter Summary ---
:1950 Author Organization [employer] Address [address] [place] [address] Care Team Providers Name Role Phone Elyse Paredes MD Primary Care Provider Reason for Visit Reason Comments Refill allopurinol (ZYLOPRIM) 100 M G tablet [Pharmacy Med Name: ALLOPURINOL 100MG TABLETS] Encounter Details Date Type Department Care Team Description 11/28/2020 Refill [facility] Nephrology Deepti Rivera, Refill (allopurinol [address] (ZYLOPRIM) [place] [address] [Pharmacy Med Name: [phone] [place], [place] [address] ALLOPURINOL 100MG [phone] (Wo rk) TABLETS]) Social History Tobacco Use Types Packs/Day Years Used Date Smoking Tobacco: Former Cigarettes Quit : 08/02/1981 Smokeless Tobacco: Never Alcohol Use Standard Drinks/Week Comments No 0 (1 standard drink = 0.6 oz pure alcoho l) Sex Assigned at Date Recorded Not on file documented as of this encounter Nursing Notes Interface, Out Surescripts Prov Query - 11/28/2020 4:32 AM CDT allopurinol (ZYLOPRIM) 100 MG tablet [Pharmacy Med Name: ALLOPURINOL 100MG TABLETS] Endocrinology: Gout -> AST, HCT, PLT, and WBC were not found within the last 5 years. -> Eye Exam was not found within the last 5 years. Last qualifying visit: 10/15/2020 (in NEPHROLOGY) Next scheduled visit: None Last ordered by DEEPTI RIVERA: 07/15/2020 (136 days ago) QTY: 30, Refills: 3, Sig: take 1 tabletby mouth daily. (unchanged) Cr: 1.14 mg/dL on 10/07/2020 AST: Not found ALT: 26 U/L on 10/07/2020 eGFR: Not found Eye Exam: Not found HCT: Not found HGB: 13.3 g/dL on 10/07/2020 PLT: Not found Uric Acid: 6 mg/dL on 10/07/2020 WBC: Not found PATIENT IS DUE FOR: - AST for allopurinol (ZYLOPRIM) 100 MG tablet - EYE EXAM for allopurinol (ZYLOPRIM) 100 MG tablet - COMPLETE BLOOD COUNT for allopurinol (ZYLOPRIM) 100 MG tablet Powered by [employer] by [employer], Reference: [id number], 11/28/2020 4:32:29 AM CDT, Pool:Nicole ([id number]) Interface, Out [employer] properties and services Prov Query - 11/28/2020 4:32 AM CDT The following lab order(s) may be associated with the Result Note below: URIC ACID; BASIC METABOLIC PANEL Notes recorded by Deepti Rivera MD on 10/08/2020 at 11:57 AM INFORMATION SYSTEMS SECURITY SPECIALIST Please let the patient know that the [...] The uric acid looks normal this time. Deepti Rivera MD ------ Notes recorded by Kirk Pino RN on 10/08/2020 at 9:27 AM INFORMATION SYSTEMS SECURITY SPECIALIST Previsit labs for upcoming appt on 10/15. Kirk Pino RN 10/08/2020, 9:27 AM Interface, Out ab&jb properties and services Prov Query - 11/28/2020 4:32 AM CDT The following lab order(s) may be associated with the following Patient Result Comment (Entered by Deepti Rivera MD at 10/08/2020 12:57 PM): BASIC METABOLIC PANEL Please let the patient know that the creatinine is 1.14, and estimated GFR is 50, which is a little better than before. The potassium is low. This is probably due to the chlorthalidone. I would recommend increasing intake of high potassium foods - bananas, citrus fruits, tomatoes. Fresh fruitsIf the potassium remains low we could start a potassium supplement. The urine test shows no protein. That is good. The uric acid looks nor mal this time. Deepti Rivera MD Interface, Out ab&jb properties and services Prov Query - 11/28/2020 4:32 AM CDT The following lab order(s) may be associated with the following Patient Result Comment (Entered by Deepti Rivera MD at 10/08/2020 12:57 PM): URIC ACID Please let the patient know that the creatinine is 1.14, and estimated GFR is 50, which is a little better than before. The potassium is low. This is probably due to the chlorthalidone. I would recommend increasing intake of high potassium foods - bananas, citrus fruits, tomatoes. Fresh fruitsIf the potassium remains low we could start a potassium supplement. The urine test shows no protein. That is good. The uric acid looks nor mal this time. Deepti Rivera MD Interface, Out ab&jb properties and services Prov Query - 11/28/2020 4:32 AM CDT The following lab order(s) may be associated with the following Patient Result Comment (Entered by Juan Cho MD at 10/08/2020 7:24 PM): HGB A1C HgA1c goal is less than 8.0 with a diagnosis of fcmbausfLmR5q (estimated Average Glucose) (%) (mg/dL)5 97 6 126 7 154 8 183 9 212 10 240 11 269 12 298 Normal blood sugar A1c 5.6 and lessPrediabetes diagnosed by an A1c 5.7-6.4Diabetes diagnosed by an A1c 6.5 and above documented in this encounter Plan of Treatment Upcoming Encounters Date Type Specialty Care Team Description 08/13/2022 Appointment Radiology Denise Aguirre APRN, CRYSTAL EVALUATOR [address] [place], [place] [address] (Wo rk) 08/13/2022 Appointment Hematology and Oncology Denise Aguirre APRN, CRYSTAL EVALUATOR [address] [place], [place] [address] (Wo rk) documented as of this encounter Goals Goal Patient Goal Associated Recent Patient-Stated? Author Type Problems Progress Being active Diabetes Diabetes No Alma Carranza Education Tanner Ng RD, CDE Note: Formatting of this note might be d ifferent from the original. Being Active: Continue with Cardiac Reha b, 3 days per week, and work on gradually increasing your daily exercise on other days. Eating healthy Diabetes Education Diabetes Education No Casteleyn, Tanner A, RD, CDE Note: Formatting of [...] as of this encounter Visit Diagnoses Diagnosis Stage 3 chronic kidney disease, unspecif ied whether stage 3a or 3b CKD ([facility]) documented in this encounter Care Teams Topology Professor Relationship Specialty Start Date End Date Elyse Paredes MD PCP - General Family Practice 03/19/17 [address] [place] [address] documented as of this encounter
--- OUTSIDE RECORDS SUMMARY | 2022-07-02 13:50 | XMS_ITS | Encounter Summary ---
:1950 Author Organization [facility] Address [address] [place] [address] Care Team Providers Name Role Phone Elyse Paredes MD Primary Care Provider Encounter Details Date Type Department Care Team Description 05/30/2021 Refill Order Specialty Center [address] Freya Cho MD Endocrinology Clinic [address] [place] [address] [place] [address] [phone] Social History Tobacco Use Types Packs/Day Years [...] Team Description 08/13/2022 Appointment Radiology Denise Aguirre, DIRECTOR VOICE, CITY DISPATCHER [address] [place], [place] [address] (Wo rk) 08/13/2022 Appointment Hematology and Oncology Denise Aguirre APRN, CITY DISPATCHER [address] [place], [place] [address] (Wo rk) documented as [...] medications documented in this encounter Care Teams State Director Relationship Specialty Start Date End Date Elyse Paredes MD PCP - General Family Practice 03/19/17 [address] [place] [address] documented as of this encounter
--- OUTSIDE RECORDS SUMMARY | 2022-07-02 13:50 | XMS_ITS | Encounter Summary ---
:1950 Author Organization [employer] Address [address] [place] [address] Care Team Providers Name Role Phone Elyse Paredes MD Primary Care Provider Reason for Visit Reason Comments Refill B-D UF III MINI PEN NEEDLES 31G X 5 MM needle [Pharmacy Med Name: B-D PEN NDL MINI [id number](10/15)PRPL] Encounter Details Date Type Department Care Team Description 11/16/2020 Refill Specialty Center [address], Refill (B-D UF III MINI Endocrinology Clinic PEN NEEDLES 31G X [address] needle [[place] [address] [place], [place] Name: B-D PEN NDL MINI [phone] [id number](10/15)PRPL]) [phone] (Wo rk) Social History Tobacco Use Types Packs/Day Years Used Date Smoking Tobacco: Former Cigarettes Quit : 08/02/1981 Smokeless Tobacco: Never Alcohol Use Standard Drinks/Week Comments No 0 (1 standard drink = 0.6 oz pure alcoho l) Sex Assigned at Date Recorded Not on file documented as of this encounter Nursing Notes Jacquelyn Matos RN - 11/18/2020 3:47 PM CDT Completed per physician's orders. Jacquelyn Matos RN 3:47 PM 11/18/2020 Interface, Out Surescripts Prov Query - 11/16/2020 2:47 PM CDT B-D UF III MINI PEN NEEDLES 31G X 5 MM needle [Pharmacy Med Name: B-D PEN NDL MINI [id number](10/15)PRPL] Endocrinology: Diabetes Non-DME Supplies -> Unable to determine if sig has changed, review required. -> Refill x 12 months (maximum allowed) -> Calculate the quantity and number of refills manually. Last qualifying visit: 08/12/2020 (in Endocrinology with JUAN ZARAGOZA) Next scheduled visit: 11/25/2020 (in Endocrinology with JUAN ZARAGOZA) Last ordered by JUAN ZARAGOZA: 11/14/2019 (368 days ago) QTY: 100, Refills: 11, Si-5 times daily. (changed) Powered by [employer] Reference: [id number], 11/16/2020 2:47:40 PM CDT, Pool: MARY YANEZ RN ([id number]) documented in this encounter Plan of Treatment Upcoming Encounters Date Type Specialty Care Team Description 08/13/2022 Appointment Radiology Denise Aguirre, CUSTOMER GREETER, HUNTER TRAPPER [address] [place] [address] (Wo rk) 08/13/2022 Appointment Hematology and Oncology Denise Aguirre, CUSTOMER GREETER, HUNTER TRAPPER [address] [place], [place] [address] (Wo rk) documented as [...] as of this encounter Visit Diagnoses Diagnosis Uncontrolled type 2 diabetes mellitus, w ith long-term current use of insulin documented in this encounter Care Teams Dynamics Ax Developer Relationship Specialty Start Date End Date Elyse Paredes MD PCP - General Family Practice 03/19/17 [address] [place] [address] documented as of this encounter
--- OUTSIDE RECORDS SUMMARY | 2022-07-02 13:50 | XMS_ITS | Encounter Summary ---
:1950 Author Organization [employer] Address [address] [place] [address] Care Team Providers Name Role Phone Elyse Paredes MD Primary Care Provider Reason for Visit Reason Comments Refill allopurinol (ZYLOPRIM) 100 M G tablet [Pharmacy Med Name: ALLOPURINOL 100MG TABLETS] Encounter Details Date Type Department Care Team Description 04/27/2021 Refill [facility] Nephrology Deepti Rivera, Refill (allopurinol [address] (ZYLOPRIM) 100 [place] [address] [Pharmacy Med Name: [phone] [place], [place] [address] ALLOPURINOL 100MG [phone] (Wo rk) TABLETS]) Social History Tobacco Use Types Packs/Day Years Used Date Smoking Tobacco: Former Cigarettes Quit : 08/02/1981 Smokeless Tobacco: Never Alcohol Use Standard Drinks/Week Comments No 0 (1 standard drink = 0.6 oz pure alcoho l) Sex Assigned at Date Recorded Not on file documented as of this encounter Nursing Notes Interface, Out Surescripts Prov Query - 04/27/2021 11:52 AM CDT allopurinol (ZYLOPRIM) 100 MG tablet [Pharmacy Med Name: ALLOPURINOL 100MG TABLETS] Endocrinology: Gout -> AST, HCT, PLT, and WBC were not found within the last 5 years. -> Eye Exam was not found within the last 5 years. Last qualifying visit: 01/22/2021 (in NEPHROLOGY) Next scheduled visit: None Last ordered by DEEPTI RIVERA: 01/22/2021 (95 days ago) QTY: 90, Refills: 0, Sig: take 1 tablet by mouth daily. (unchanged) Cr: 1.22 mg/dL on 02/26/2021 AST: [...] allopurinol (ZYLOPRIM) 100 MG tablet Powered by [employer] by [employer], Reference: [id number], 04/27/2021 11:52:16 AM CDT, Pool: Nicole ([id number]) Interface, Out [employer] Prov Query - 04/27/2021 11:52 AM CDT The following lab order(s) may [...] on 02/27/2021 at 9:02 AM CDT 01/22/21 AVS states: Return in about 3 months (around [...] ...... Kirk Pino RN 02/27/2021, 9:01 AM Electronically signed by Interface, Out [facility] Companies[facility] Prov Query at 04/27/2021 11:52 AM CDT Interface, Out Surescripts Prov Query - 04/27/2021 11:52 AM CDT The following lab order(s) may be associated with the following Patient Result Comment (Entered by Juan Cho MD at 02/26/2021 8:07 PM): HGB A1C Improved [id number] goal is less than 8.0 with a diagnosis of kdxquwjjLmT2m (estimated Average Glucose) (%) (mg/dL)5 97 6 126 7 154 8 183 9 212 10 240 11 269 12 298 Normal blood sugar A1c 5.6 and lessPrediabetes diagnosed by an A1c 5.7-6.4Diabetes diagnosed by an A1c 6.5 and above Interface, Out [employer] Prov Query - 04/27/2021 11:52 AM CDT The following lab order(s) may be associated with the following Patient Result Comment (Entered by Deepti Rivera MD at 02/27/2021 4:48 PM): URIC ACID Results reviewed, the kidney function looks stable with a creatinine of 1.2 to an estimated GFR of 46 mL/min. In December creatinine was slightly worse at 1.35. The sodium is normal. The potassium is back to normal at 4.6.I do not recommend any changes at this timeDeepti Rivera MD Interface, Out [employer] Query - 04/27/2021 11:52 AM CDT The following lab order(s) may be associated with the following Patient Result Comment (Entered by Deepti Rivera MD at 02/27/2021 4:48 PM): BASIC METABOLIC PANEL Results reviewed, the kidney function looks stable with a creatinine of 1.2 to an estimated GFR of 46 mL/min. In December creatinine was slightly worse at 1.35. The sodium is normal. The potassium is back to normal at 4.6.I do not recommend any changes at this timeDeepti Rivera MD documented in this encounter Plan of Treatment Upcoming Encounters Date Type Specialty Care Team Description 08/13/2022 Appointment Radiology Denise Aguirre, TRAIN STARTER, LIVESTOCK INSPECTOR [address] [place] [address] (Wo rk) 08/13/2022 Appointment Hematology and Oncology Denise Aguirre APRN, LIVESTOCK INSPECTOR [address] [place], [place] [address] (Wo rk) documented as [...] chemistry documented in this encounter Care Teams Automotive Power Electronics Engineer Relationship Specialty Start Date End Date Elyse Paredes MD PCP - General Family Practice 03/19/17 [address] [place] [address] documented as of this encounter
--- OUTSIDE RECORDS SUMMARY | 2022-07-02 13:50 | XMS_ITS | Encounter Summary ---
:1950 Author Organization [employer] Address [address] [place] [address] Care Team Providers Name Role Phone Elyse Paredes MD Primary Care Provider Reason for Visit Reason Onset Date Comments Refill 05/30/2021 DEXCOM G6 TRANSMITTE R Encounter Details Date Type Department Care Team Description 05/30/2021 Refill Specialty Center [address], Refill (DEXCOM G6 Endocrinology Clinic MD TRANSMITTER ) [address] [place] [address] [place], [place] [phone] [address] (Wo rk) Social History Tobacco Use Types Packs/Day Years Used Date Smoking Tobacco: Former Cigarettes Quit : 08/02/1981 Smokeless Tobacco: Never Alcohol Use Standard Drinks/Week Comments No 0 (1 standard drink = 0.6 oz pure alcoho l) Sex Assigned at Date Recorded Not on file documented as of this encounter Nursing Notes Jacquelyn Matos RN - 05/30/2021 3:17 PM CDT Completed per physician's orders. Jacquelyn Matos RN 3:17 PM 05/30/2021 Interface, Out Surescripts Prov Query - 05/30/2021 12:44 PM CDT Continuous Blood Gluc Transmit (DEXCOM G6 TRANSMITTER) [facility] Diabetes - Testing Supplies -> Unable to determine if patient is due for a renewal, please review. -> Provider co-signature is required for DME on patients 65+ years old. -> Unable to determine if sig has changed, review required. -> Age is abnormal (69 is greater than 64.0) -> Refill x 12 months (maximum allowed) -> Calculate the quantity and number of refills manually. Last qualifying visit: 03/17/2021 (in Endocrinology with JUAN ZARAGOZA) Next scheduled visit: None Last ordered by JUAN ZARAGOZA: 11/25/2020 (186 days ago) QTY: 3, Refills: 5, Sig: change sensor every 10 days (changed) Age: 71 Powered by [employer] by [employer], Reference: [id number], 05/30/2021 12:44:33 PM CDT, Carlos: MILA IYER TEAM ([id number]) RAL FREIGHT AGENT documented in this encounter Plan of Treatment Upcoming Encounters Date Type Specialty Care Team Description 08/13/2022 Appointment Radiology Denise Aguirre, GRIFFIN, PROFESSOR OF VOICE [address] [place], [place] [address] (Wo rk) 08/13/2022 Appointment Hematology and Oncology Denise Aguirre APRN, PROFESSOR OF VOICE [address] [place], [place] [address] (Wo rk) documented as [...] ([facility]) documented in this encounter Care Teams Test Development Engineer Relationship Specialty Start Date End Date Elyse Paredes MD PCP - General Family Practice 03/19/17 [address] [place] [address] documented as of this encounter
--- OUTSIDE RECORDS SUMMARY | 2022-07-02 13:50 | XMS_ITS | Encounter Summary ---
:1950 Author Organization [employer] Address [address] [place] [address] Care Team Providers Name Role Phone Elyse Paredes MD Primary Care Provider Reason for Visit Reason Comments Refill OZEMPIC, 1 MG/DOSE, 2 MG/1.5 ML injection [Pharmacy Med Name: OZEMPIC 1MG PER DOSE (2X2MG PEN)] Encounter Details Date Type Department Care Team Description 10/23/2020 Refill Specialty Center [address], Refill (OZEMPIC, 1 Endocrinology Clinic MD MG/DOSE, 2 MG/1.5ML [address] injection [place] [address] [place], [place] Name: OZEMPIC 1MG PER [phone] DOSE (2X2MG PEN)]) [phone] (Wo rk) Social History Tobacco Use Types Packs/Day Years Used Date Smoking Tobacco: Former Cigarettes Quit : 08/02/1981 Smokeless Tobacco: Never Alcohol Use Standard Drinks/Week Comments No 0 (1 standard drink = 0.6 oz pure alcoho l) Sex Assigned at Date Recorded Not on file documented as of this encounter Nursing Notes Jacquelyn Matos RN - 10/24/2020 3:57 PM CDT Completed per physician's orders. Jacquelyn Matos RN 3:57 PM 10/24/2020 Interface, Out Surescripts Prov Query - 10/23/2020 6:07 PM CDT OZEMPIC, 1 MG/DOSE, 2 MG/1.5ML injection [Pharmacy Med Name: OZEMPIC 1MG PER DOSE (2X2MG PEN)] None Exists -> The requested medication was previously set to Historical. -> Medication cannot be delegated. Last qualifying visit: 08/12/2020 (in Endocrinology with JUAN ZARAGOZA) Next scheduled visit: 11/25/2020 (in Endocrinology with JUAN ZARAGOZA) Last ordered by UNKNOWN, PHYSICIAN: 03/08/2020 (229 days ago as Historical on 03/18/2020 by WONG CRAVEN), Sig: inject 1 mg subcutaneously once a week. (changed but equivalent) Powered by [employer], Reference: [id number], 10/23/2020 6:07:35 PM CDT, Pool: MARY YANEZ RN ([id number]) documented in this encounter Plan of Treatment Upcoming Encounters Date Type Specialty Care Team Description 08/13/2022 Appointment Radiology Denise Aguirre APRN, DETECTIVE AUTOMOBILE SECTION [address] [place], [place] [address] (Tonio sorenson) 08/13/2022 Appointment Hematology and Oncology Denise Aguirre APRN, DETECTIVE AUTOMOBILE SECTION [address] [place], [place] [address] (Tonio sorenson) documented as [...] on filedocumented in this encounter Care Teams Installation Superintendent Relationship Specialty Start Date End Date Elyse Paredes MD PCP - General Family Practice 03/19/17 [address] [place] [address] documented as of this encounter
--- OUTSIDE RECORDS SUMMARY | 2022-07-02 13:51 | XMS_ITS | Encounter Summary ---
:1950 Author Organization [employer] Address [address] [place] [address] Care Team Providers Name Role Phone Elyse Paredes MD Primary Care Provider Reason for Visit Reason Onset Date Comments Revisit CANCEL APPOINTMENT 09/04/2020 Patient Cancelled Encounter Details Date Type Department Care Team Description 09/02/2020 Telemedicine [facility] Nephrology Prasanna Rivera Stage 3a chronic kidney dise ase (Primary Dx); [address] [facility]. MD Angelica Encounters [place] [address] [address] [facility] [phone] [place], [place] [id number] Social History Tobacco Use Types Packs/Day Years Used Date Smoking Tobacco: Former Cigarettes Quit : 08/02/1981 Smokeless Tobacco: Never Alcohol Use Standard Drinks/Week Comments No 0 (1 standard drink = 0.6 oz pure alcoho l) Sex Assigned at Date Recorded Not on file documented as of this encounter Progress Notes Prasanna Rivera MD - 09/02/2020 1:00 PM CST The patient cancelled this appointment. ITATIVE RESEARCHER documented in this encounter Nursing Notes Peter Pino LPN - 09/02/2020 1:00 PM CST Lm x 1 for rooming. Peter Pino LPN 08/30/2020, 3:28 PM ITATIVE RESEARCHER documented in this encounter Plan of Treatment Upcoming Encounters Date Type Specialty Care Team Description 08/13/2022 Appointment Radiology Denise Aguirre, ASSOCIATE PRODUCER, POLLUTION CONTROL TECHNICIAN [address] [place], [place] [address] (Wo rk) 08/13/2022 Appointment Hematology and Oncology Denise Aguirre APRN, POLLUTION CONTROL TECHNICIAN [address] [place], [place] [address] (Wo rk) documented [...] as of this encounter Results Microalbumin/Creatinine Ratio (10/07/2020 1:10 PM QUALITATIVE RESEARCHER) [facility] Method Time Signature Albumin, 15.8 mg/L 10/07/2020 [facility] Urine, Random 6:46 PM QUALITATIVE RESEARCHER CENTRAL LAB Creatinine, 175 >20 mg/dL 10/07/2020 [facility] Urine, Random 6:46 PM QUALITATIVE RESEARCHER CENTRAL LAB Albumin/Creati 9 <30 mg/g 10/07/2020 [facility] nine Ratio, 6:46 PM QUALITATIVE RESEARCHER CENTRAL LAB Urine, Random Specimen Anatomical Collection Method Collection Time Receive d Time (Source) Location / / Volume Laterality Urine Non-blood 10/07/2020 1:10 PM 1:10 Collection / QUALITATIVE RESEARCHER PM QUALITATIVE RESEARCHER Unknown Prasanna Rivera MD LAB_1 Performing Organization Address [facility] Phon e Number [facility] CENTRAL LAB [address] [address] Uric Acid (10/07/2020 1:10 PM QUALITATIVE RESEARCHER) P athologist Signature Uric Acid 6.0 2.6 - 6.0 10/07/2020 [facility] mg/dL 7:06 PM QUALITATIVE RESEARCHER CENTRAL LAB Specimen Anatomical Collection Method / Collection Time Recei gil Time (Source) Location / Volume Laterality Blood Venipuncture / 10/07/2020 1:10 10/07/2020 1:10 Unknown PM QUALITATIVE RESEARCHER PM QUALITATIVE RESEARCHER Prasanna Rivera MD LAB_1 Performing Organization Address [facility] Phon e Number [facility] CENTRAL LAB [address] [address] (ABNORMAL) Basic Metabolic Panel (10/07/2020 1:10 PM QUALITATIVE RESEARCHER) [facility] Method Time Signature Sodium 138 136 - 145 10/07/2020 [facility] mmol/L 7:06 PM QUALITATIVE RESEARCHER CENTRAL LAB Potassium 3.4 (L) 3.5 - 5.1 10/07/2020 [facility] mmol/L 7:06 PM QUALITATIVE RESEARCHER CENTRAL LAB Chloride 100 98 - 109 10/07/2020 [facility] mmol/L 7:06 PM QUALITATIVE RESEARCHER CENTRAL LAB CO2 23 20 - 29 10/07/2020 [facility] mmol/L 7:06 PM QUALITATIVE RESEARCHER CENTRAL LAB Anion Gap 15 7 - 16 10/07/2020 [facility] mmol/L 7:06 PM QUALITATIVE RESEARCHER CENTRAL LAB Calcium 9.4 8.4 - 10/07/2020 [facility] 10.4 7:06 PM QUALITATIVE RESEARCHER CENTRAL LAB mg/dL BUN 18 7 - 26 10/07/2020 [facility] mg/dL 7:06 PM QUALITATIVE RESEARCHER CENTRAL LAB Creatinine 1.14 (H) 0.55 - 10/07/2020 [facility] 1.02 7:06 PM QUALITATIVE RESEARCHER CENTRAL LAB mg/dL GFR, Estimated 50 (L) >60 10/07/2020 [facility] mL/min/1. 7:06 PM QUALITATIVE RESEARCHER CENTRAL LAB 73m2 Glucose 220 (H) 70 - 100 10/07/2020 [facility] mg/dL 7:06 PM QUALITATIVE RESEARCHER CENTRAL LAB Comment: The given reference range is fo r the fasting state. Non-fasting reference range for glucose is 70 - 180 mg/dL. Hours Fasting 12 10/07/2020 7:06 PM QUALITATIVE RESEARCHER [facility] Specimen Anatomical Collection Method / Collection Time Recei gil Time (Source) Location / Volume Laterality Blood Venipuncture / 10/07/2020 1:10 10/07/2020 1:10 Unknown PM QUALITATIVE RESEARCHER PM QUALITATIVE RESEARCHER Narrative [facility] CENTRAL LAB - 10/07/2020 7:06 PM QUALITATIVE RESEARCHER The National Kidney Disease Education Pr ogram suggests measuring Cystatin C in patients with eGFRcrea of 45 to 59 ml/mi n/1.73^2 who do not have other markers of kidney damage (i.e. elevated urine Album in/Creatinine Ratio or a prior Cystatin C confirming the presence of chronic kidne y disease). Prasanna Rivera MD LAB_1 Performing Organization Address City/State/ZIP Code Phon e Number [facility] [address] [address] [address] [phone] LABORATORY documented in this encounter Visit Diagnoses Diagnosis Stage 3a chronic kidney disease (HRC) - Primary Encounters for administrative purposes Encounters for unspecified administrativ e purpose documented in this encounter Care Teams Application Packaging Specialist Relationship Specialty Start Date End Date Elyse Paredes MD PCP - General Family Practice 03/19/17 [address] [place] [address] documented as of this encounter
--- OUTSIDE RECORDS SUMMARY | 2022-07-02 13:51 | XMS_ITS | Encounter Summary ---
:1950 Author Organization [employer] Address [address] [place] [address] Care Team Providers Name Role Phone Elyse Paredes MD Primary Care Provider Reason for Visit Reason Onset Date Comments Refill 03/18/2020 insulin lispro (ARTHUR LOG) 100 Encounter Details Date Type Department Care Team Description 03/18/2020 Refill [facility] [address], Refill (insulin lispro [facility] (HUMALOG) 100 ) 401 [facility]. [address] [place] [address] [place], [place] [phone] (Wo rk) Social History Tobacco Use Types Packs/Day Years Used Date Smoking Tobacco: Former Cigarettes Quit : 08/02/1981 Smokeless Tobacco: Never Alcohol Use Standard Drinks/Week Comments No 0 (1 standard drink = 0.6 oz pure alcoho l) Sex Assigned at Date Recorded Not on file documented as of this encounter Nursing Notes Jacquelyn Matos RN - 03/19/2020 3:14 PM CDT Completed per physician's orders. Jacquelyn Matos RN 3:14 PM 03/19/2020 Interface, Out Surescripts Prov Query - 03/19/2020 12:11 PM CDT The patient chart could not be locked at 03/19/2020 12:11 PM by [employer] in order to process this refill request. Please try re-routing to attempt to retry processing through [employer]. Mere Kam - 03/19/2020 12:10 PM CDT Per Jeri, pt has 1 day of humalog left. Please send. Mere Moore [place] 03/19/2020 12:10 PM Interface, Out Surescripts Prov Query - 03/18/2020 2:53 PM CDT The patient chart could not be locked at 03/18/2020 2:53 PM by [employer] in order to process this refill request. Please try re-routing to attempt to retry processing through [employer]. documented in this encounter Plan of Treatment Upcoming Encounters Date Type Specialty Care Team Description 08/13/2022 Appointment Radiology Denise Aguirre, MEDICAL RECEPTIONIST BILLER, SCHOOL TRAFFIC SUPERVISOR [address] [place], [place] [address] (Wo rk) 08/13/2022 Appointment Hematology and Oncology Denise Aguirre APRN, SCHOOL TRAFFIC SUPERVISOR [address] [place], [place] [address] (Wo rk) documented as [...] on healthy evening snack, such as r elo clancyots or fresh fruit or low fat yogurt. Monitoring my Diabetes Education Diabetes Education No Tanner Carranza, diabetes RD, CDE Note: Formatting of this note might be d ifferent from the original. Monitoring My Diabetes: Continue to chec k blood sugars before each meal and bedtime. documented as of this encounter Visit Diagnoses Not on filedocumented in this encounter Care Teams Credit Verifier Relationship Specialty Start Date End Date Elyse Paredes MD PCP - General Family Practice 03/19/17 [address] [place] [address] documented as of this encounter
--- OUTSIDE RECORDS SUMMARY | 2022-07-02 13:51 | XMS_ITS | Encounter Summary ---
:1950 Author Organization [employer] Address [address] [place] [address] Care Team Providers Name Role Phone Elyse Paredes MD Primary Care Provider Reason for Referral Procedure/Equipment (Routine) - Incomplete Specialty Diagnoses / Procedures Referred By Contact Refer red To Contact Procedures Elyse Paredes MD MM Mammogram Screening Bilat [address] [place] [address] Referral ID Status Reason Start Date Expiration Date Visits V isits Requested Authorized [id number] Incomplete 07/22/2020 10/21/2021 1 1 T END WEB DESIGNER Reason for Visit Procedure/Equipment (Routine) - Incomplete Specialty Diagnoses / Procedures Referred By Contact Refer red To Contact Procedures Elyse Paredes MD MM Mammogram Screening Bilat [address] [place] [address] Referral ID Status Reason Start Date Expiration Date Visits V isits Requested Authorized [id number] Incomplete 07/22/2020 10/21/2021 1 1 Encounter Details Date Type Department Care Team Description 07/22/2020 Ancillary Procedure [facility] Elyse Paredes MD Center [address] [place] [address] [place] [address] [phone] Social History Tobacco Use Types Packs/Day Years [...] Team Description 08/13/2022 Appointment Radiology Denise Aguirre, MULTIMEDIA SERVICES COORDINATOR, PRODUCTION SUPPORT ENGINEER [address] [place], [place] [address] (Wo rk) 08/13/2022 Appointment Hematology and Oncology Denise Aguirre, MULTIMEDIA SERVICES COORDINATOR, PRODUCTION SUPPORT ENGINEER [address] [place], [place] [address] (Wo rk) documented as [...] Associated Diagnosis Comme nts MM MAMMOGRAM Routine 07/22/2020 10:20 AM Results for this SCREENING BILAT W FRONT END WEB DESIGNER procedure are in 3D BRAVO W CAD the results section. documented in this encounter Results MM Mammogram Screening Bilat W 3D Bravo W CAD (07/22/2020 10:20 AM FRONT END WEB DESIGNER) Anatomical Region Laterality Modality Breast Bilateral Mammography Specimen (Source) Anatomical Location Collection Method / Collectio n Time Received Time / Laterality Volume Impressions 07/22/2020 4:44 PM FRONT END WEB DESIGNER : ACR BI-RADS Category 2: Benign RECOMMENDATION: Follow Up Imaging in 12 months - Bilateral The results and recommendations of this examination will be communicated to the patient. Narrative 07/22/2020 4:44 PM FRONT END WEB DESIGNER MM MAMMOGRAM SCREENING BILAT W 3D BRAVO W CAD performed on 07/22/20 Compared to: 07/21/2019 MM Mammogram Scr eening Bilat W 3D Bravo W CAD, 07/19/2018 MM Mammogram Screening Bilat W CAD, and 03/27/2015 Foreign Image(S) Mammogram Bilateral Screening ? ? FINDINGS: Bilateral screening mammogram was performed with the assistance of Computer-Aided Detection and breast t omosynthesis. The breasts have scattered areas of fibroglandular densit y. There are breast conservation changes on the left. There is no radiographic evidence of mal ignancy. ?? Elyse Paredes MD RAD NILAM documented in this encounter Visit Diagnoses Not on filedocumented in this encounter Care Teams Desktop Technician Relationship Specialty Start Date End Date Elyse Paredes MD PCP - General Family Practice 03/19/17 [address] [place] [address] documented as of this encounter
--- OUTSIDE RECORDS SUMMARY | 2022-07-02 13:51 | XMS_ITS | Encounter Summary ---
:1950 Author Organization [email or web address] Address [address] [place] [address] Care Team Providers Name Role Phone Elyse Paredes MD Primary Care Provider Encounter Details Date Type Department Care Team Description 05/28/2020 Lab Visit Specialty Center CKD ([facility] on[facility] kidney disease) stage 3, GFR 30-59 ml/min; Laboratory Hyperuricemia; [address] [place] [address] Social History Tobacco Use Types Packs/Day Years Used Date Smoking Tobacco: Former Cigarettes Quit : 08/02/1981 Smokeless Tobacco: Never Alcohol Use Standard Drinks/Week Comments No 0 (1 standard drink = 0.6 oz pure alcoho l) Sex Assigned at Date Recorded Not on file documented as of this encounter Progress Notes Edelmira Cisneros RN - 05/28/2020 1:00 PM CDT 06/03 previsit labs. Edelmira Cisneros RN 05/29/2020, 9:55 AM Prasanna Rivera MD - 05/28/2020 1:00 PM CDT Labs reviewed. The urine test looks good, no protein seen in the urine, no microalbumin Creatinine stable at 1.28, estimated GFR is 43 ml/min Uric acid is 6.2 which is better. Prasanna Rivera MD Jazmin Holloway RN - 05/28/2020 1:00 PM CDT Patient has reviewed some labs online. Dr. Rivera's notes sent to patient via online patient services. Jazmin Holloway RN documented in this encounter Plan of Treatment Upcoming Encounters Date Type Specialty Care Team Description 08/13/2022 Appointment Radiology Denise Aguirre, GRIFFIN, MOLD FILLING OPERATOR [address] [place], [place] [address] (Wo rk) 08/13/2022 Appointment Hematology and Oncology Denise Aguirre APRN, MOLD FILLING OPERATOR [address] [place], [place] [address] (Wo rk) documented as [...] Associated Diagnosis Comme nts BASIC METABOLIC Routine 05/28/2020 1:09 CKD (chronic kidney Re sults for this PANEL PM CDT disease) stage 3, GFR proced ure are in 30-59 ml/min the results section. ALBUMIN/CREAT Routine 05/28/2020 1:09 Microalbuminuria Results for this RATIO PM CDT procedure are i n the results section. URIC ACID Routine 05/28/2020 1:09 Hyperuricemia Results for this PM CDT procedure are i n the results section. documented in this encounter Results Microalbumin/Creatinine Ratio (05/28/2020 1:09 PM CDT) [facility] Method Time Signature Albumin, 74.5 mg/L 05/28/2020 [facility] Urine, Random 6:37 PM CDT CENTRAL LAB Creatinine, 283 >20 mg/dL 05/28/2020 [facility] Urine, Random 6:37 PM CDT CENTRAL LAB Albumin/Creati 26 <30 mg/g 05/28/2020 [facility] nine Ratio, 6:37 PM CDT CENTRAL LAB Urine, Random Specimen Anatomical Collection Method Collection Time Receive d Time (Source) Location / / Volume Laterality Urine Non-blood 05/28/2020 1:09 PM 0 1:09 Collection / CDT PM CDT Unknown Prasanna Rivera MD LAB_1 Performing Organization Address [facility]on e [facility] [address] [address] (ABNORMAL) Uric Acid (05/28/2020 1:09 PM CDT) athologist Signature Uric Acid 6.2 (H) 2.6 - 6.0 05/28/2020 [facility] mg/dL 3:59 PM CDT CENTRAL LAB Specimen Anatomical Collection Method / Collection Time Recei gil Time (Source) Location / Volume Laterality Blood Venipuncture / 05/28/2020 1:09 05/28/2020 1:09 Unknown PM CDT PM CDT Prasanna Rivera MD LAB_1 Performing Organization Address [facility] Phon e Number [facility] CENTRAL LAB [address] [address] (ABNORMAL) Basic Metabolic Panel (05/28/2020 1:09 PM CDT) [facility] Method Time Signature Sodium 141 136 - 145 05/28/2020 [facility] mmol/L 3:59 PM CDT CENTRAL LAB Potassium 3.6 3.5 - 5.1 05/28/2020 [facility] mmol/L 3:59 PM CDT CENTRAL LAB Chloride 99 98 - 109 05/28/2020 [facility] mmol/L 3:59 PM CDT CENTRAL LAB CO2 29 20 - 29 05/28/2020 [facility] mmol/L 3:59 PM CDT CENTRAL LAB Anion Gap 13 7 - 16 05/28/2020 [facility] mmol/L 3:59 PM CDT CENTRAL LAB Calcium 9.6 8.4 - 05/28/2020 [facility] 10.4 3:59 PM CDT CENTRAL LAB mg/dL BUN 17 7 - 26 05/28/2020 [facility] mg/dL 3:59 PM CDT CENTRAL LAB Creatinine 1.28 (H) 0.55 - 05/28/2020 [facility] 1.02 3:59 PM CDT CENTRAL LAB mg/dL GFR, Estimated 43 (L) >60 05/28/2020 [facility] mL/min/1. 3:59 PM CDT CENTRAL LAB 73m2 Glucose 165 (H) 70 - 100 05/28/2020 [facility] mg/dL 3:59 PM CDT CENTRAL LAB Comment: The given reference range is fo r the fasting state. Non-fasting reference range for glucose is 70 - 180 mg/dL. Hours Fasting 12 05/28/2020 3:59 PM CDT [facility] Specimen Anatomical Collection Method / Collection Time Recei gil Time (Source) Location / Volume Laterality Blood Venipuncture / 05/28/2020 1:09 05/28/2020 1:09 Unknown PM CDT PM CDT Prasanna Rivera MD LAB_1 Performing Organization Address City/State/ZIP Code Phon e Number [facility] [address] [address] [facility] [address] [place] [phone] [place] [address] LABORATORY documented in this encounter Visit Diagnoses Diagnosis CKD (chronic kidney disease) stage 3, GF R 30-59 ml/min (HRC) Chronic kidney disease, Stage III (moder ate) Hyperuricemia Other abnormal blood chemistry Microalbuminuria Proteinuria documented in this encounter Care Teams Placement Manager Relationship Specialty Start Date End Date Elyse Paredes MD PCP - General Family Practice 03/19/17 [address] [place] [address] documented as of this encounter
--- OUTSIDE RECORDS SUMMARY | 2022-07-02 13:51 | XMS_ITS | Encounter Summary ---
:1950 Author Organization [employer] Address [address] [place] [address] Care Team Providers Name Role Phone Elyse Paredes MD Primary Care Provider Reason for Visit Reason Comments Revisit Encounter Details Date Type Department Care Team Description 06/03/2020 Telemedicine [facility] Nephrology Prasanna Rivera Stage 3a chronic kidney dise ase (Primary Dx); [facility]. MD Angelica Essential hypertension; [place] [address] 205 [facility] Microalbuminuria; [phone] [place], [place] Hyperuricemia [address] Social History Tobacco Use Types Packs/Day Years Used Date Smoking Tobacco: Former Cigarettes Quit : 08/02/1981 Smokeless Tobacco: Never Alcohol Use Standard Drinks/Week Comments No 0 (1 standard drink = 0.6 oz pure alcoho l) Sex Assigned at Date Recorded Not on file documented as of this encounter Patient Instructions Patient InstructionsPrasanna Rivera MD - 06/03/2020 3:00 PM CST 1. The kidney function is stable, creatinine is 1.28 and estimated GFR is stable at 43 ml/min. It has, in general, been better lately. 2. The urine test does not show any significant protein in the urine this time. Keep taking the losartan 50 mg daily (I updated the medication on the list) 3. The uric acid is much better, at 6.2. This means the level went down from 8.3 since you have beenon allopurinol. Keep taking 100 mg daily Have follow up labs in 3 months Call office at for your next appointment. See me in 3 months MARKER documented in this encounter Progress Notes Prasanna Rivera MD - 06/03/2020 3:00 PM CST Nephrology Video Follow up Visit Name: Marci Diaz : 1950 DATE OF SERVICE: 06/03/2020 NAME OF REQUESTING PHYSICIAN: Elyse Paredes MD REASON FOR VISIT:follow up abnormal kidney function, joint pains, hyperuricemia, hypertension Encounter Diagnoses 1. Stage 3a chronic kidney disease 2. Essential hypertension (HRC) 3. Microalbuminuria 4. Hyperuricemia ASSESSMENT/ PLAN: 1. Her serum creatinine remains 1.28, eGFR improved 43 mg/min, she likely has hypertensive kidney disease. Continue to monitor. Presently off celebrex. Continue to avoid NSAIDs. 2. Despite a history of diabetes, and she has some microalbumin on her priorurine test, but presently the urine microalbumin was 26 mg/g, normal. She is taking losartan 50 mg daily. 3. Hyperuricemia - 6.2. Continue allopurinol 100 mg daily. We did talk about possibly increasing thedose, but we decided to keep thinks the same for now. 4. She already did her Influenza vaccination for the year. Recommend repeating labs in 3 months Orders Placed This Encounter ??? Basic Metabolic Panel ??? Uric Acid ??? Microalbumin/Creatinine Ratio ??? losartan (COZAAR) 50 MG tablet Thank you for allowing me to participate in the care of this pt. I will follow her closely with you. I spent 15 minutes video face to face time with [...] in the care of Ms. Marci Diaz As you know, she is a 70 y.o. female with a creatinine of 1.33 and recent joints pains. She reports that she does not have nearly as much bone and hand pain as she had. She does have arthritis but she also may have had some gout. She has less pain since staring the allopurinol. She feels it took about 6 -8 weeks. She is taking allopurinol which was increased to 100 mg daily. Uric acid is 6.2, down 8.3. She is doing well otherwise. Her Oncologist changed her to tamoxifen from anastrozole. This was due to joint pains. Her creatinine is 1.28, eGFR is 43 ml/min. Sodium and potassium are normal. Urine microalbumin is normal on the last test. She has reasonable blood pressure, BP has been intermittently checked. She is taking chlorthalidone 25 mg daily, losartan 50 mg daily, and metoprolol Xl 25 mg daily. She has been off celebrex since October. Creatinine improved to 1.24, from 1.33 I reviewed her prior labs. Her creatinine was 1.65 in September, 1.43 in June, 1.32 in August of 2018, and 1.17 in May 2018. She has diabetes, hypertension, and severe arthritis. [...] LAD stent in May of 2017 at [place]. She also underwent TAVR procedure in July [...] She has seen Dr. Johns of the [facility] [place] in the past. PAST MEDICAL HISTORY: Past Medical History: Diagnosis Date ??? A-fib (HRC) ??? Breast cancer (HRC) 2018 [facility] - radiation ??? CAD (coronary artery disease) (HRC) JEFFERSON to LAD ??? HTN (hypertension) (HRC) ??? Hx of total knee arthroplasty Left knee ??? Hyperlipidemia (HRC) ??? Nephrolithiasis ??? DEDE on CPAP ??? S/P TAVR (transcatheter aortic valve replacement) 07/2017, [facility] ??? Uncontrolled type 2 diabetes mellitus, with long-term current use of insulin ([facility]) 03/19/2017 ALLERGIES: is allergic to erythromycin; lisinopril; and metformin. Social History Socioeconomic History ??? Marital status: Single Spouse name: Not on file ??? Number of children: Not on file ??? Years of education: Not on file ??? Highest education level: Not on file Occupational History ??? Not on file Social Needs ??? Financial resource strain: Not on file ??? Food insecurity Worry: Not on file Inability: Not on file ??? Transportation needs Medical: Not on file Non-medical: Not on file Tobacco Use ??? Smoking status: Former Smoker Quit date: 08/02/1981 Years since quittin.8 ??? Smokeless tobacco: Never Used Substance and Sexual Activity ??? Alcohol use: No ??? Drug use: Not on file ??? Sexual activity: Not on file Lifestyle ??? Physical activity Days per week: Not on file Minutes per session: Not on file ??? Stress: Not on file Relationships ??? Social connections Talks on phone: Not on file Gets together: Not on file Attends jew service: Not on file Active member of club or organization: Not on file Attends meetings of clubs or organizations: Not on file Relationship status: Not on file ??? Intimate partner violence Fear of current or ex partner: Not on file Emotionally abused: Not on file Physically abused: Not on file Forced sexual activity: Not on file Other Topics Concern ??? Not on file Social History Narrative ??? Not on file MEDICATIONS: ??? ACCU-CHEK GERALD PLUS test strip, Check fasting / before meals, and at bedtime, . Pharmacy dispense brand based on insurance., Disp: 350 Strip, Rfl: 6 ??? allopurinol (ZYLOPRIM) 100 MG tablet, Take 1 Tablet by mouth daily., Disp: 30 Tablet, Rfl: 3 ??? aspirin, enteric-coated 81 MG enteric coated tablet, Take 1 Tab by mouth daily., Disp: 90 Tab, Rfl: 3 ??? B-D UF III MINI PEN NEEDLES 31G X 5 MM needle, 4-5 times daily., Disp: 100 Each, Rfl: 11 ??? chlorthalidone (HYGROTON) 25 MG tablet, Take 1 Tablet by mouth daily., Disp: 30 Tablet, Rfl: 11 ??? Continuous Blood Gluc Shop And Alteration Tailor (DEXCOM G6 COUNSELOR MARRIAGE AND FAMILY) JAY, Use as directed for continuous glucosemonitoring., Disp: 1 Device, Rfl: 0 ??? Continuous Blood Gluc Sensor (DEXCOM G6 SENSOR) MISC, CHANGE SENSOR EVERY 10 DAYS, Disp: 3 Each,Rfl: 5 ??? Continuous Blood Gluc Transmit (DEXCOM G6 TRANSMITTER) MISC, CHANGE EVERY 3 MONTHS, Disp: 1 Each, Rfl: 1 ??? famotidine (PEPCID) 10 MG tablet, Take 10 mg by mouth., Disp: , Rfl: ??? insulin glargine (LANTUS SOLOSTAR) 100 UNIT/ML pen, 60 units a day, Disp: 60 mL, Rfl: 4 ??? insulin lispro (HUMALOG) 100 UNIT/ML injection vial, Use 10 units as a base with meals, plus sliding scale. Max dose 70 units daily, Disp: 30 mL, Rfl: 11 ??? losartan (COZAAR) 50 MG tablet, Take 1.5 Tablets by mouth daily., Disp: , Rfl: ??? metoprolol succinate (TOPROL XL) 25 MG 24 hour release tablet, Take 1 Tablet by mouth daily., Disp: 90 Tablet, Rfl: 3 ??? rosuvastatin (CRESTOR) 10 MG tablet, Take 1 Tab by mouth daily., Disp: 90 Tab, Rfl: 3 ??? semaglutide (OZEMPIC, 0.25/0.5 MG/DOSE,) 2 MG/1.5ML injection, 0.25 mg sc once weekly for 4 weeks, then 0.5 mg sc for two weeks, Disp: 1.5 mL, Rfl: 11 ??? tamoxifen (NOLVADEX) 20 MG tablet, Take 1 Tablet by mouth daily., Disp: 90 Tablet, Rfl: 3 ??? venlafaxine (EFFEXORXR) 37.5 MG 24 hour release capsule, Take 2 Capsules by mouth daily., Disp: , Rfl: ??? warfarin (COUMADIN) 2.5 MG tablet, TAKE 1 TABLET BY MOUTH EVERY DAY, Disp: , Rfl: REVIEW OF SYSTEMS: As per HPI. + joint pains. PHYSICAL EXAM: Video Visit BP recently was stable GEN in NAD Hands there are DIP changes, nodules B hands (seen on video) LABS: I personally reviewed the findings with the patient. Renal panel: Lab Results Component Value Date/Time SODIUM 141 05/28/2020 01:09 PM K 3.6 05/28/2020 01:09 PM CHLORIDE 99 05/28/2020 01:09 PM BUN 17 05/28/2020 01:09 PM CREATININE 1.28 (H) 05/28/2020 01:09 PM GFR 43 (L) 05/28/2020 01:09 PM GLUCOSE 165 (H) 05/28/2020 01:09 PM CA 9.6 05/28/2020 01:09 PM ANIONGAP 13 05/28/2020 01:09 PM Lab Results Component Value Date/Time CREATININE 1.28 (H) 05/28/2020 01:09 PM CREATININE 1.24 (H) 02/13/2020 01:04 PM CREATININE 1.33 (H) 12/21/2019 12:30 PM CREATININE 1.31 (H) 11/21/2018 12:56 PM CBC: Lab Results Component Value Date/Time HGB 13.0 02/13/2020 01:04 PM HbA1C: Hemoglobin A1C (%) Date Value 02/13/2020 7.3 (H) 12/21/2019 7.6 (H) Urine microalbumin/creatinine ratio: Ratio (mg/g creatinine) Date Value 03/19/2017 63 (H) Microalb/Creat Ratio, Urine Random (mg/g) Date Value 05/28/2020 26 02/13/2020 82 (H) 12/21/2019 15 See above for A/P Prasanna Rivera MD MARKER documented in this encounter Plan of Treatment Upcoming Encounters Date Type Specialty Care Team Description 08/13/2022 Appointment Radiology Denise Aguirre, HEAD CHEF, V BELT MOLD ASSEMBLER AND CURER [address] [address] (Wo rk) 08/13/2022 Appointment Hematology and Oncology Denise Aguirre, HEAD CHEF, V BELT MOLD ASSEMBLER AND CURER [address] [address] (Wo rk) documented as of this [...] documented as of this encounter Results (ABNORMAL) Uric Acid (08/06/2020 2:[address] MARKER) P athologist Signature Uric Acid 6.7 (H) 2.6 - 6.0 08/06/2020 [facility] mg/dL 5:[address] MARKER CENTRAL LAB Specimen Anatomical Collection Method / Collection Time Recei gil Time (Source) Location / Volume Laterality Blood Venipuncture / 08/06/2020 2:01 08/06/2020 2:[address] MARKER PM ROAD MARKER Prasanna Rivera MD LAB_1 Performing Organization Address City/State/ZIP Code Phon e Number [facility] CENTRAL LAB [address] [address] (ABNORMAL) Basic Metabolic Panel (08/06/2020 2:[address] MARKER) [facility] gist Method Time Signature Sodium 136 136 - 145 08/06/2020 [facility] mmol/L 5:[address] MARKER CENTRAL LAB Potassium 3.5 3.5 - 5.1 08/06/2020 [facility] mmol/L 5:[address] MARKER CENTRAL LAB Chloride 101 98 - 109 08/06/2020 [facility] mmol/L 5:[address] MARKER CENTRAL [facility] CO2 23 20 - 29 08/06/2020 [facility] mmol/L 5:[address] MARKER CENTRAL [facility] Anion Gap 12 7 - 16 08/06/2020 [facility] mmol/L 5:[address] MARKER CENTRAL LAB Calcium 9.2 8.4 - 08/06/2020 [facility] 10.4 5:[address] [facility]ER CEN[facility]AL LAB mg/dL BUN 27 (H) 7 - 26 08/06/2020 [facility] mg/dL 5:[address] MARKER CENTRAL LAB Creatinine 1.27 (H) 0.55 - 08/06/2020 [facility] 1.02 5:[address] MARKER CENTRAL LAB mg/dL GFR, Estimated 43 (L) >60 08/06/2020 [facility] mL/min/1. 5:[address] MARKER CENTRAL LAB 73m2 Glucose 174 (H) 70 - 100 08/06/2020 [facility] mg/dL 5:[address] MARKER CENTRAL LAB Comment: The given reference range is fo r the fasting state. Non-fasting reference range for glucose is 70 - 180 mg/dL. Hours Fasting 10 08/06/2020 5:[address] MARKER [facility] Specimen Anatomical Collection Method / Collection Time Recei gil Time (Source) Location / Volume Laterality Blood Venipuncture / 08/06/2020 2:01 08/06/2020 2:[address] MARKER PM ROAD MARKER Prasanna Rivera MD LAB_1 Performing Organization Address City/State/ZIP Code Phon e Number [facility] CENTRAL LAB [address] [address] SPECIAL[address] [place] [address] LABORATORY documented in this encounter Visit Diagnoses Diagnosis Stage 3a chronic kidney disease (HRC) - Primary Essential hypertension (HRC) Unspecified essential hypertension Microalbuminuria Proteinuria Hyperuricemia Other abnormal blood chemistry documented in this encounter Care Teams Oracle Applications Developer Relationship Specialty Start Date End Date Elyse Paredes MD PCP - General Family Practice 03/19/17 [address] [id number] documented as of this encounter
--- OUTSIDE RECORDS SUMMARY | 2022-07-02 13:51 | XMS_ITS | Encounter Summary ---
:1950 Author Organization [employer] Address [address] [place] [address] Care Team Providers Name Role Phone Elyse Paredes MD Primary Care Provider Reason for Visit Reason Comments FOLLOW-UP,DIABETES Encounter Details Date Type Department Care Team Description 08/12/2020 Telemedicine [facility] [address] Cho, Uncontrolled type 2 diabetes mellitus, with long-term current use of insulin (HRC) (Primary Dx); Endocrinology Clinic Dyslipidemia, goal LDL below 100; [address] Obesity, morbid, BMI 50 or higher (HR); [place] [address] [place], [place] Malignant neoplasm of left b reast in female, estrogen receptor positive, unspecified site of breast ([facility]); [phone] [address] Essential hypertension; [phone] Coronary artery disease involving s[place] coronary artery of s[place]qualmie heart without angina pectoris (Work) Social History Tobacco Use Types Packs/Day Years Used Date Smoking Tobacco: Former Cigarettes Quit : 08/02/1981 Smokeless Tobacco: Never Alcohol Use Standard Drinks/Week Comments No 0 (1 standard drink = 0.6 oz pure alcoho l) Sex Assigned at Date Recorded Not on file documented as of this encounter Progress Notes Gabriel Resendez CMA - 08/12/2020 2:15 PM CST Images from the original note were not included. STED LIVING CARE MANAGER Juan Cho MD - 08/12/2020 2:15 PM CST ENDOCRINOLOGY VIDEO RETURN NOTE 08/12/2020 Marci L Emily 70 y.o. HPI: The patient return for management of uncontrolled type 2 diabetes, coronary artery disease and obesity. ROS: As per HPI No current facility-administered medications for this visit. Allergies Allergen Reactions ??? Erythromycin Rash ??? Lisinopril Other, see comments Dry cough ??? Metformin Other, see comments and Nausea And Vomiting diarrhea P.E There were no vitals filed for this visit. Estimated body mass index is 52.42 kg/m?? as calculated from the following: Height as of 09/16/18: 5' 2 (1.575 m). Weight as of 10/06/19: 286 lb 9.6 oz (130 kg). Disposition/hobbies/life stressors: ASSESSMENT/PLAN:: #1. ??Hypoglycemia/CGMS.?In terms [...] ?? #4. Obesity. ??The patient has??lost 6-7 lbs since her last visit. ??The weight loss most likely result of intermittent fasting and ozempic. ? #5. ??Type 2 diabetes controlled with coronary [...] points with a base of 200 before bed and ozempic 1 mg weekly. ? RETURN IN 3 MONTHS PRIOR TO RETURN OBTAIN LABS, non fasting labs 2 weeks prior to return visit. Video visit Clinician location: [facility] endocrinology [facility] Patient location: home Total visit time 40 minutes all of which was spent in education, discussion, answering all questions, gathering the data prior to talking to the patient discussing the above and/or coordination of care. Luis Fernando Cho MD This note created using speech-recognition software and may contain unintended word substitutions. STED LIVING CARE MANAGER documented in this encounter Plan of Treatment Upcoming Encounters Date Type Specialty Care Team Description 08/13/2022 Appointment Radiology Denise Aguirre, GLUTEN SETTLING TENDER, INSPECTOR AND TESTER [address] [place], [place] [address] (Wo rk) 08/13/2022 Appointment Hematology and Oncology Denise Aguirre APRN, INSPECTOR AND TESTER [address] [place], [place] [address] (Wo rk) documented as [...] documented as of this encounter Results (ABNORMAL) HgbA1c (10/07/2020 1:10 PM ASSISTED LIVING CARE MANAGER) [facility] Method Time Signature Hemoglobin A1C 7.7 (H) <=5.6 % 10/07/2020 [facility] 9:30 PM ASSISTED LIVING CARE MANAGER CENTRAL LAB Specimen Anatomical Collection Method / Collection Time Recei gil Time (Source) Location / Volume Laterality Blood Venipuncture / 10/07/2020 1:10 10/07/2020 1:10 Unknown PM ASSISTED LIVING CARE MANAGER PM ASSISTED LIVING CARE MANAGER Narrative [facility] CENTRAL LAB - 10/07/2020 9:30 PM ASSISTED LIVING CARE MANAGER For patients not previously diagnosed with diabetes: 5.7-6.4%: Increased risk for diabetes 6.5% and greater: Diagnostic for diabete s For patients diagnosed with diabetes: <8.0%: Goal of therapy for ages 18-75 Clinicians may recommend a higher or low er goal for specific individuals. Juan Cho MD LAB_1 Performing Organization Address [facility] CENTRAL LAB [address] [place] [address] TSH (10/07/2020 1:10 PM ASSISTED LIVING CARE MANAGER) [facility] Method Time Signature TSH, Sensitive 4.44 0.30 - 10/07/2020 [facility] 4.50 6:40 PM ASSISTED LIVING CARE MANAGER CENTRAL LAB uIU/mL Specimen Anatomical Collection Method / Collection Time Recei gil Time (Source) Location / Volume Laterality Blood Venipuncture / 10/07/2020 1:10 10/07/2020 1:10 Unknown PM ASSISTED LIVING CARE MANAGER PM ASSISTED LIVING CARE MANAGER Juan Cho MD LAB_1 Performing Organization Address [facility] Phon e Number [facility] CENTRAL LAB [address] [address] Hgb (10/07/2020 1:10 PM ASSISTED LIVING CARE MANAGER) athologist Signature Hemoglobin 13.3 12.0 - 15.5 10/07/2020 [facility] g/dL 1:13 PM ASSISTED LIVING CARE MANAGER CENTER LABORATORY Specimen Anatomical Collection Method / Collection Time Recei gil Time (Source) Location / Volume Laterality Blood Venipuncture / 10/07/2020 1:10 10/07/2020 1:10 Unknown PM ASSISTED LIVING CARE MANAGER PM ASSISTED LIVING CARE MANAGER Juan Cho MD LAB_1 Performing Organization Address City/[facility]/ZIP Code Phon e Number [facility] [address] [facility] [place] [address] ALT (SGPT) (10/07/2020 1:10 PM ASSISTED LIVING CARE MANAGER) athologist Signature ALT (SGPT) 26 0 - 55 U/L 10/07/2020 [facility] 7:06 PM ASSISTED LIVING CARE MANAGER CENTRAL LAB Specimen Anatomical Collection Method / Collection Time Recei gil Time (Source) Location / Volume Laterality Blood Venipuncture / 10/07/2020 1:10 10/07/2020 1:10 Unknown PM ASSISTED LIVING CARE MANAGER PM ASSISTED LIVING CARE MANAGER Juan Cho MD LAB_1 Performing Organization Address City/[facility]/ZIP Code Phon e Number [facility] CENTRAL LAB [address] [address] documented in this encounter Visit Diagnoses Diagnosis Uncontrolled type 2 diabetes mellitus, w ith long-term current use of insulin - Primary Dyslipidemia, goal LDL below 100 (HRC) Other and unspecified hyperlipidemia Obesity, morbid, BMI 50 or higher (HRC) Malignant neoplasm of left breast in fem grey, estrogen receptor positive, unspecified site of breast (HRC) Essential hypertension (HRC) Unspecified essential hypertension Coronary artery disease involving [place] coronary artery of s[place]mie heart without angina pectoris (HRC) documented in this encounter Care Teams Manager Night Relationship Specialty Start Date End Date Elyse Paredes MD PCP - General Family Practice 03/19/17 [address] [place] [address] documented as of this encounter
--- OUTSIDE RECORDS SUMMARY | 2022-07-02 13:51 | XMS_ITS | Encounter Summary ---
:1950 Author Organization [employer] Address [address] [place] [address] Care Team Providers Name Role Phone Elyse Paredes MD Primary Care Provider Reason for Visit Reason Comments Medication Questions Encounter Details Date Type Department Care Team Description 03/25/2020 Telephone [facility] Nephrology Prasanna Rivera, Medication Questions [address] [facility] [place] [place] [address] 205 [facility] [phone] [place], [place] [address] (Wo rk) Social History Tobacco Use Types Packs/Day Years Used Date Smoking Tobacco: Former Cigarettes Quit : 08/02/1981 Smokeless Tobacco: Never Alcohol Use Standard Drinks/Week Comments No 0 (1 standard drink = 0.6 oz pure alcoho l) Sex Assigned at Date Recorded Not on file documented as of this encounter Nursing Notes Jefe Recinos - 03/25/2020 2:25 PM CDT Informed pt. Jefe Moore Edelmira Cisneros RN - 03/25/2020 2:05 PM CDT Last AVS from January 2020 says: The uric acid was still high at 8.1, so we recently increased the allopurinol to 100 mg daiy. New rx sent to pharmacy. Please inform patient. Edelmira Cisneros RN 03/25/2020, 2:07 PM Brendan Mckeon - 03/25/2020 10:51 AM CDT Medications - Med Change / Question Is this a medication change or a general question? Med Question What is your question or concern? PT STATES DR RIVERA RECENTLY INCREASED DOSAGE OF MEDICATION, HOWEVER HER RECENT REFILL WAS FOR THE AMOUNT SHE'D ALREADY BEEN TAKING. Name and Dose of current medication: ALLUPURINOL, 100 MG. PT STATES PREV TOOK HALF TABLET A DAY HOWEVER PROVIDER HAD INCREASED DOSAGE TO FULL TABLET DAILY. PT STATES THAT RECENT REFILL AT [facility] DIDN'T REFLECT ADJUSTMENT IN DOSAGE THOUGH AMOUNT IN REFILL WAS STILL JUST FOR A HALF TABLET A DAY. PLEASE ADVISE How often do you take it? ONCE DAILY Who prescribed it? Prasanna Rivera MD Is it okay to leave a detailed message on your voicemail? Yes For this medication, patient would like it filled at the pharmacy listed in Meds & Orders. [Funeral Car Chauffeur/Appt Center: Verify the pharmacy patient would like to use for this request is highlighted in blue in Pharmacy Selection under Meds & Orders] Brendan Mckeon documented in this encounter Plan of Treatment Upcoming Encounters Date Type Specialty Care Team Description 08/13/2022 Appointment Radiology Denise Aguirre APRN, PHYSICAL SCIENCES INSTRUCTOR [address] [place], [place] [address] (Wo rk) 08/13/2022 Appointment Hematology and Oncology Denise Aguirre APRN, PHYSICAL SCIENCES INSTRUCTOR [address] [place], [place] [address] (Wo rk) documented as of this encounter Goals Goal Patient Goal Associated Recent Patient-Stated? Author Type Problems Progress Being active Diabetes Diabetes No Alma Carranza RD, CDE Note: Formatting of this [...] on filedocumented in this encounter Care Teams Single Stroke Preformer Relationship Specialty Start Date End Date Elyse Paredes MD PCP - General Family Practice 03/19/17 [address] [place] [address] documented as of this encounter
--- OUTSIDE RECORDS SUMMARY | 2022-07-02 13:51 | XMS_ITS | Encounter Summary ---
:1950 Author Organization [facility] Address [address] [place] [address] Care Team Providers Name Role Phone Elyse Paredes MD Primary Care Provider Reason for Visit Reason Comments REFERRAL REQUEST Encounter Details Date Type Department Care Team Description 01/16/2020 Telephone [facility] 401 Freya Zaragoza MD REFERRAL REQUEST Endocrinology Clinic [address] [place] [address] [place] [address] [phone] Social History Tobacco Use Types Packs/Day Years Used Date Smoking Tobacco: Former Cigarettes Quit : 08/02/1981 Smokeless Tobacco: Never Alcohol Use Standard Drinks/Week Comments No 0 (1 standard drink = 0.6 oz pure alcoho l) Sex Assigned at Date Recorded Not on file documented as of this encounter Nursing Notes Elda Espinal - 01/17/2020 9:21 AM CDT Left detailed message that lab order are already in chart. Elda Espinal Golden Lainez - 01/16/2020 11:43 AM CDT Orders/Referrals What specialty/service are you requesting a referral or order for? LAB ORDER FOR A1C PRIOR TO SEEING DR. ZARAGOZA ON 02/18 What is the reason for your requested referral? ASKS FOR IT EVERY 3 MO. Which provider or clinic do you need a referral or order for? [facility] Is the provider or clinic outside of [facility] or [facility]? No Orders - All Orders [facility]: If this call is after 3 p.m., communicate to patient: If we are not able to get back to you by the end of the day and your symptoms worsen please contact the Careline at [phone] OR at .] Have you been seen recently for this concern? Yes: 3 MO AGO [[facility] Center:If patient was seen at an outside location, please obtain records] Is it okay to leave a detailed message on your voicemail? Yes [[facility]: Instruct patient to check with insurance company for coverage] Is there anything else I can help you with today? Golden Lainez documented in this encounter Plan of Treatment Upcoming Encounters Date Type Specialty Care Team Description 08/13/2022 Appointment Radiology Denise Aguirre APRN, OBSTETRICIAN [address] [place], [place] [address] (Wo rk) 08/13/2022 Appointment Hematology and Oncology Denise Aguirre, MANAGER MEDICAID, OBSTETRICIAN [address] [place], [place] [address] (Wo rk) documented as of this encounter Goals Goal Patient Goal Associated Recent Patient-Stated? Author Type Problems Progress Being active Diabetes Diabetes No Tere Education Alma Ng RD, CDE Note: Formatting of this [...] on filedocumented in this encounter Care Teams Machinery Engineer Relationship Specialty Start Date End Date Elyse Paredes MD PCP - General Family Practice 03/19/17 [address] [place] [address] documented as of this encounter
--- OUTSIDE RECORDS SUMMARY | 2022-07-02 13:51 | XMS_ITS | Encounter Summary ---
:1950 Author Organization [employer] Address [address] [address] Care Team Providers Name Role Phone Elyse Paredes MD Primary Care Provider Reason for Visit Reason Comments COVID Screening Encounter Details Date Type Department Care Team Description 01/16/2020 Telephone [facility] gracie Unknown, Physician COVID Screening [address], [place] [address] [place] [address] [phone] (Wo rk) Social History Tobacco Use Types Packs/Day Years Used Date Smoking Tobacco: Former Cigarettes Quit : 08/02/1981 Smokeless Tobacco: Never Alcohol Use Standard Drinks/Week Comments No 0 (1 standard drink = 0.6 oz pure alcoho l) Sex Assigned at Date Recorded Not on file documented as of this encounter Nursing Notes Golden Lainez - 01/16/2020 11:36 AM CDT Initial Screening: Patient information Best number to contact patient: [phone] Reason for Call: COVID Screening/Testing Request In the last 14 days have you had close contact with a person known to have COVID-19 or been instructed to self-isolate? No Are symptoms urgent/emergent? No Do you currently have any of these symptoms? None Did not attend a large community event or gathering (e.g., protest or community clean-up) - Close encounter and follow regular process documented in this encounter Plan of Treatment Upcoming Encounters Date Type Specialty Care Team Description 08/13/2022 Appointment Radiology Denise Aguirre, AUTOMATION APPLICATION ENGINEER, HEALTH AND HUMAN PERFORMANCE PROFESSOR [address] [place], [place] [address] (Wo rk) 08/13/2022 Appointment Hematology and Oncology Denise Aguirre, AUTOMATION APPLICATION ENGINEER, HEALTH AND HUMAN PERFORMANCE PROFESSOR [address] [place], [place] [address] (Wo rk) documented as [...] on filedocumented in this encounter Care Teams Unloader Relationship Specialty Start Date End Date Elyse Paredes MD PCP - General Family Practice 03/19/17 [address] [place] [address] documented as of this encounter
--- OUTSIDE RECORDS SUMMARY | 2022-07-02 13:51 | XMS_ITS | Encounter Summary ---
:1950 Author Organization [employer] Address [address] [place] [address] Care Team Providers Name Role Phone Elyse Paredes MD Primary Care Provider Encounter Details Date Type Department Care Team Description 02/13/2020 Lab Visit Specialty Center Controll ed type 2 diabetes mellitus without complication, with long-term current use of insulin (HRC); Laboratory Increase in creatinine; [address] Essential hypertension; [place] [address] Hyperuricemia [phone] Social History Tobacco Use Types Packs/Day Years Used Date Smoking Tobacco: Former Cigarettes Quit : 08/02/1981 Smokeless Tobacco: Never Alcohol Use Standard Drinks/Week Comments No 0 (1 standard drink = 0.6 oz pure alcoho l) Sex Assigned at Date Recorded Not on file documented as of this encounter Progress Notes Jacquelyn Matos RN - 02/13/2020 1:00 PM CDT Will discuss at office visit on 02/19/2020 Jacquelyn Matos RN 02/14/2020, 3:18 PM Prasanna Rivera MD - 02/13/2020 1:00 PM CDT The results of the lab show that the creatinine is slightly improved, the creatinine is 1.24 and estimated GFR is 45 ml/min, consistent with stage 3 kidney disease. The sodium, potassium, and other labs are normal The uric acid remains high at 8.1. Please increase the allopurinol to 100 mg daily (one full tablet of allopurinol instead of 1/2 tab) in order to lower the uric acid. Please let me know if you developgout symptoms (pain in a joint of the toe or knee, with redness) Prasanna Rivera MD 02/15/2020, 6:29 AM documented in this encounter Plan of Treatment Upcoming Encounters Date Type Specialty Care Team Description 08/13/2022 Appointment Radiology Denise Aguirre, GRIFFIN, WATER TREATMENT SPECIALIST [address] [place], [place] [address] (Wo rk) 08/13/2022 Appointment Hematology and Oncology Denise Aguirre APRN, WATER TREATMENT SPECIALIST [address] [place], [place] [address] (Wo rk) documented as [...] Associated Diagnosis Comme nts LDL CHOLESTEROL, Routine 02/13/2020 1:04 PM Controlled type 2 Results for this DIRECT MEASURED CDT diabetes mellitus procedu re are in without complication, the re sults with long-term section. current use of insulin (HRC) TSH, SENSITIVE Routine 02/13/2020 1:04 PM Controlled type 2 Re sults for this CDT diabetes mellitus procedure are in without complication, the re sults with long-term section. current use of insulin (HRC) BASIC METABOLIC Routine 02/13/2020 1:04 PM Increase in Result s for this PANEL CDT creatinine procedure are in Essential the results hypertension section. HEMOGLOBIN, BLOOD Routine 02/13/2020 1:04 PM Controlled type 2 Results for this CDT diabetes mellitus procedure are in without complication, the re sults with long-term section. current use of insulin (HRC) ALBUMIN/CREAT RATIO Routine 02/13/2020 1:04 PM Controlled type 2 Results for this CDT diabetes mellitus procedure are in without complication, the re sults with long-term section. current use of insulin (HRC) HGB A1C Routine 02/13/2020 1:04 PM Controlled type 2 Resu lts for this CDT diabetes mellitus procedure are in without complication, the re sults with long-term section. current use of insulin (HRC) URIC ACID Routine 02/13/2020 1:04 PM Essential Results f or this CDT hypertension procedure are in Hyperuricemia the results section. ALT (SGPT) Routine 02/13/2020 1:04 PM Controlled type 2 Resu lts for this CDT diabetes mellitus procedure are in without complication, the re sults with long-term section. current use of insulin (HRC) documented in this encounter Results (ABNORMAL) Uric Acid (02/13/2020 1:04 PM CDT) P athologist Signature Uric Acid 8.1 (H) 2.6 - 6.0 02/13/2020 [facility] mg/dL 4:37 PM CDT [facility] Specimen Anatomical Collection Method / Collection Time Recei gil Time (Source) Location / Volume Laterality Blood Venipuncture / 02/13/2020 1:04 02/13/2020 1:04 Unknown PM CDT PM CDT Prasanna Rivera MD LAB_1 Performing Organization Address City/State/ZIP Code Phon e Number [facility] [address] [address] (ABNORMAL) Basic Metabolic Panel (02/13/2020 1:04 PM CDT) [facility] Method Time Signature Sodium 140 136 - 145 02/13/2020 [facility] mmol/L 4:37 PM CDT [facility] Potassium 4.0 3.5 - 5.1 02/13/2020 [facility] mmol/L 4:37 PM CDT [facility] Chloride 100 98 - 109 02/13/2020 [facility] mmol/L 4:37 PM CDT [facility] CO2 29 20 - 29 02/13/2020 [facility] mmol/L 4:37 PM CDT [facility] Anion Gap 11 7 - 16 02/13/2020 [facility] mmol/L 4:37 PM CDT [facility] Calcium 9.6 8.4 - 02/13/2020 [facility] 10.4 4:37 PM CDT [facility] mg/dL BUN 27 (H) 7 - 26 02/13/2020 [facility] mg/dL 4:37 PM CDT [facility] Creatinine 1.24 (H) 0.55 - 02/13/2020 [facility] 1.02 4:37 PM CDT C[facility] mg/dL GFR, Estimated 45 (L) >60 02/13/2020 [facility] mL/min/1. 4:37 PM CDT [facility] 73m2 Glucose 188 (H) 70 - 100 02/13/2020 [facility] mg/dL 4:37 PM CDT [facility] Comment: The given reference range is fo r the fasting state. Non-fasting reference range for glucose is 70 - 180 mg/dL. Hours Fasting 15 02/13/2020 4:37 PM CDT [facility] Specimen Anatomical Collection Method / Collection Time Recei gil Time (Source) Location / Volume Laterality Blood Venipuncture / 02/13/2020 1:04 02/13/2020 1:04 Unknown PM CDT PM CDT Narrative [facility] - 02/13/2020 4:37 PM CDT The National Kid[employer] Disease Education [...] Address City/State/ZIP Code Phon e Number [facility] [address] [address] [facility] [address] [place] [id number] [place] [address] LABORATORY TSH (02/13/2020 1:04 PM CDT) [facility] Method Time Signature TSH, Sensitive 2.70 0.30 - 02/13/2020 [facility] 4.50 4:54 PM CDT [facility] uIU/mL Specimen Anatomical Collection Method / Collection Time Recei gil Time (Source) Location / Volume Laterality Blood Venipuncture / 02/13/2020 1:04 02/13/2020 1:04 Unknown PM CDT PM CDT Juan Cho MD LAB_1 Performing Organization Address City/[facility] Code Phon e Number [facility] [address] [address] (ABNORMAL) Microalb / Creat Ratio (02/13/2020 1:04 PM CDT) [facility] Method Time Signature Albumin, 151.7 mg/L 02/14/2020 [facility] Urine, Random 12:45 PM CDT C[facility] Creatinine, 186 >20 mg/dL 02/14/2020 [facility] Urine, Random 12:45 PM CDT C[facility] Albumin/Creati 82 (H) <30 mg/g 02/14/2020 [facility] nine Ratio, 12:45 PM CDT C[facility] Urine, Random Specimen Anatomical Collection Method Collection Time Receive d Time (Source) Location / / Volume Laterality Urine Non-blood 02/13/2020 1:04 PM 0 1:04 Collection / CDT PM CDT Unknown Juan Cho MD LAB_1 Performing Organization Address City/[facility] Phon e Number [facility] [address] [address] LDL Direct (02/13/2020 1:04 PM CDT) athologist Signature LDL, Direct 73 <=130 02/13/2020 [facility] mg/dL 4:37 PM CDT C[facility] Specimen Anatomical Collection Method / Collection Time Recei gil Time (Source) Location / Volume Laterality Blood Venipuncture / 02/13/2020 1:04 02/13/2020 1:04 Unknown PM CDT PM CDT Juan Cho MD LAB_1 Performing Organization Address [facility] Phon e Number [facility] [address] [address] ALT (SGPT) (02/13/2020 1:04 PM CDT) athologist Signature ALT (SGPT) 21 0 - 55 U/L 02/13/2020 [facility] 4:37 PM CDT [facility] Specimen Anatomical Collection Method / Collection Time Recei gil Time (Source) Location / Volume Laterality Blood Venipuncture / 02/13/2020 1:04 02/13/2020 1:04 Unknown PM CDT PM CDT Juan Cho MD LAB_1 Performing Organization Address [facility] e Number [facility] [address] [address] Hgb (02/13/2020 1:04 PM CDT) athologist Signature Hemoglobin 13.0 12.0 - 15.5 02/13/2020 [facility] g/dL 1:38 PM CDT [facility] Specimen Anatomical Collection Method / Collection Time Recei gil Time (Source) Location / Volume Laterality Blood Venipuncture / 02/13/2020 1:04 02/13/2020 1:04 Unknown PM CDT PM CDT Juan hCo MD LAB_1 Performing Organization Address [facility] Phon e Number [facility] [address] [place] [address] (ABNORMAL) HgbA1c (02/13/2020 1:04 PM CDT) [facility] Method Time Signature Hemoglobin A1C 7.3 (H) <=5.6 % 02/13/2020 [facility] 4:48 PM CDT C[facility]TRAL [facility] Specimen Anatomical Collection Method / Collection Time Recei gil Time (Source) Location / Volume Laterality Blood Venipuncture / 02/13/2020 1:04 02/13/2020 1:04 Unknown PM CDT PM CDT Narrative [facility] - 02/13/2020 4:48 PM CDT For patients not previously diagnosed with diabetes: 5.7-6.4%: Increased risk for diabetes 6.5% and greater: Diagnostic for diabete s For patients diagnosed with diabetes: <8.0%: Goal of therapy for ages 18-75 Clinicians may recommend a higher or low er goal for specific individuals. Juan Cho MD LAB_1 Performing Organization Address City/State/ZIP Code Phon e Number [facility] [address] [address] documented in this encounter Visit Diagnoses Diagnosis Controlled type 2 diabetes mellitus with out complication, with long-term current use of insulin (HRC) Increase in creatinine Essential hypertension (HRC) Unspecified essential hypertension Hyperuricemia Other abnormal blood chemistry documented in this encounter Care Teams Stock Raiser Relationship Specialty Start Date End Date Elyse Paredes MD PCP - General Family Practice 03/19/17 [address] [place] [address] documented as of this encounter
--- OUTSIDE RECORDS SUMMARY | 2022-07-02 13:51 | XMS_ITS | Encounter Summary ---
:1950 Author Organization invi Address [address], [place] [address] Care Team Providers Name Role Phone Elyse Paredes MD Primary Care Provider Encounter Details Date Type Department Care Team Description 08/06/2020 Lab Visit [facility] Dyslipid emia, goal LDL below 100; Laboratory Stage 3a chronic kidney dise ase; [address] Hyperuricemia; [place] [address] Essential hypertension; [phone] Microalbuminuri a Social History Tobacco Use Types Packs/Day Years Used Date Smoking Tobacco: Former Cigarettes Quit : 08/02/1981 Smokeless Tobacco: Never Alcohol Use Standard Drinks/Week Comments No 0 (1 standard drink = 0.6 oz pure alcoho l) Sex Assigned at Date Recorded Not on file documented as of this encounter Progress Notes Kirk Pino RN - 08/06/2020 2:00 PM CST Labs to be reviewed by Dr. Rivera. ASSESSMENT/ PLAN on 06/03/20 appt: ?? 1.Her serum creatinine remains 1.28, eGFR improved 43 mg/min, she likely has hypertensive kidney disease. Continue to monitor. Presently off celebrex. Continue to avoid NSAIDs. 2.Despite a history of diabetes, and she has some microalbumin on her priorurine test, but presentlythe urine microalbumin was 26 mg/g, normal. She is taking losartan 50 mg daily. 3.Hyperuricemia - 6.2. Continue allopurinol 100 mg daily. We did talk about possibly increasing the dose, but we decided to keep thinks the same for now. 4.She already did her Influenza vaccination for the year. ?? Recommend repeating labs in 3 months Kirk Pino RN 08/07/2020, 9:14 AM HOUSE HAND Kirk Pino RN - 08/06/2020 2:00 PM CST F/U appt scheduled for 09/02/20. Labs done. HOUSE HAND Jacquelyn Matos RN - 08/06/2020 2:00 PM CST Will discuss at office visit on 08/12/2020 Jacquelyn Matos RN 08/07/2020, 11:36 AM HOUSE HAND Prasanna Rivera MD - 08/06/2020 2:00 PM CST Please let her know that the creatinine is stable at 1.27 estimated GFR is 43 mL/min. Sodium and potassium are normal. Uric acid is a little high, continue allopurinol. Prasanna Rivera MD HOUSE HAND documented in this encounter Plan of Treatment Upcoming Encounters Date Type Specialty Care Team Description 08/13/2022 Appointment Radiology Denise Aguirre APRN, PASTRY BAKER [address] [place], [place] [address] (Wo rk) 08/13/2022 Appointment Hematology and Oncology Denise Aguirre APRN, PASTRY BAKER [address] [place], [place] [address] (Wo rk) documented as [...] Associated Diagnosis Comme nts LDL CHOLESTEROL, Routine 08/06/2020 2:01 PM Dyslipidemia, goal LDL Results for this DIRECT MEASURED DYE HOUSE HAND below 100 procedure ar e in the results section. TSH, SENSITIVE Routine 08/06/2020 2:01 PM Dyslipidemia, goal L DL Results for this DYE HOUSE HAND below 100 procedure are i n the results section. BASIC METABOLIC Routine 08/06/2020 2:01 PM Stage 3a chronic Re sults for this PANEL DYE HOUSE HAND kidney disease procedure are in the results section. HEMOGLOBIN, BLOOD Routine 08/06/2020 2:01 PM Dyslipidemia, goa l LDL Results for this DYE HOUSE HAND below 100 procedure are i n the results section. ALBUMIN/CREAT Routine 08/06/2020 2:01 PM Dyslipidemia, goal LD L Results for this RATIO DYE HOUSE HAND below 100 procedure are i n the results section. HGB A1C Routine 08/06/2020 2:01 PM Dyslipidemia, goal LDL Results for this DYE HOUSE HAND below 100 procedure are i n the results section. URIC ACID Routine 08/06/2020 2:01 PM Hyperuricemia Results for this DYE HOUSE HAND procedure are i n the results section. ALT (SGPT) Routine 08/06/2020 2:01 PM Dyslipidemia, goal LDL Results for this DYE HOUSE HAND below 100 procedure are i n the results section. documented in this encounter Results (ABNORMAL) Uric Acid (08/06/2020 2:01 PM DYE HOUSE HAND) P athologist Signature Uric Acid 6.7 (H) 2.6 - 6.0 08/06/2020 [facility] mg/dL 5:27 PM DYE HOUSE HAND [facility] Specimen Anatomical Collection Method / Collection Time Recei gil Time (Source) Location / Volume Laterality Blood Venipuncture / 08/06/2020 2:01 08/06/2020 2:01 Unknown PM DYE HOUSE HAND PM DYE HOUSE HAND Prasanna Rivera MD LAB_1 Performing Organization Address City/State/ZIP Code Phon e Number [facility] [address] [address] (ABNORMAL) Basic Metabolic Panel (08/06/2020 2:01 PM DYE HOUSE HAND) [facility] Method Time Signature Sodium 136 136 - 145 08/06/2020 [facility] mmol/L 5:27 PM DYE HOUSE HAND [facility] Potassium 3.5 3.5 - 5.1 08/06/2020 [facility] mmol/L 5:27 PM DYE HOUSE HAND [facility] Chloride 101 98 - 109 08/06/2020 [facility] mmol/L 5:27 PM DYE HOUSE HAND [facility] CO2 23 20 - 29 08/06/2020 [facility] mmol/L 5:27 PM [facility] Anion Gap 12 7 - 16 08/06/2020 [facility] mmol/L 5:27 PM DYE HOUSE HAND [facility] Calcium 9.2 8.4 - 08/06/2020 [facility] 10.4 5:27 PM [facility] mg/dL BUN 27 (H) 7 - 26 08/06/2020 [facility] mg/dL 5:27 PM [facility] Creatinine 1.27 (H) 0.55 - 08/06/2020 [facility] 1.02 5:27 PM [facility] mg/dL GFR, Estimated 43 (L) >60 08/06/2020 [facility] mL/min/1. 5:27 PM [facility] 73m2 Glucose 174 (H) 70 - 100 08/06/2020 [facility] mg/dL 5:27 PM [facility] Comment: The given reference range is fo r the fasting state. Non-fasting reference range for glucose is 70 - 180 mg/dL. Hours Fasting 10 08/06/2020 5:27 PM [facility] Specimen Anatomical Collection Method / Collection Time Recei gil Time (Source) Location / Volume Laterality Blood Venipuncture / 08/06/2020 2:01 08/06/2020 2:01 Unknown PM DYE HOUSE HAND PM DYE HOUSE HAND Prasanna Rivera MD LAB_1 Performing Organization Address City/[facility]/ZIP Code Phon e Number [facility] [address] [address] [address] [address] [place] [id number] [phone] LABORATORY TSH (08/06/2020 2:01 PM DYE HOUSE HAND) [facility] Method Time Signature TSH, Sensitive 3.04 0.30 - 08/06/2020 [facility] 4.50 5:21 PM DYE HOUSE HAND [facility] uIU/mL Specimen Anatomical Collection Method / Collection Time Recei gil Time (Source) Location / Volume Laterality Blood Venipuncture / 08/06/2020 2:01 08/06/2020 2:01 Unknown PM DYE HOUSE HAND PM DYE HOUSE HAND Juan Cho MD LAB_1 Performing Organization Address [facility]/ZIP Code Phon e Number [facility] [address] [address] Microalb / Creat Ratio (08/06/2020 2:01 PM DYE HOUSE HAND) [facility] Method Time Signature Albumin, 19.2 mg/L 08/06/2020 [facility] Urine, Random 6:45 PM DYE HOUSE HAND [facility] Creatinine, 189 >20 mg/dL 08/06/2020 [facility] Urine, Random 6:45 PM DYE HOUSE HAND [facility] Albumin/Creati 10 <30 mg/g 08/06/2020 [facility] nine Ratio, 6:45 PM DYE HOUSE HAND [facility] Urine, Random Specimen Anatomical Collection Method Collection Time Receive d Time (Source) Location / / Volume Laterality Urine Non-blood 08/06/2020 2:01 PM 2:01 Collection / DYE HOUSE HAND PM DYE HOUSE HAND Unknown Juan Cho MD LAB_1 Performing Organization Address [facility]/ZIP [facility] Phon e Number [facility] [address] [address] ALT (SGPT) (08/06/2020 2:01 PM DYE HOUSE HAND) athologist Signature ALT (SGPT) 27 0 - 55 U/L 08/06/2020 [facility] 5[facility]27 PM D[facility] Specimen Anatomical Collection Method / Collection Time Recei gil Time (Source) Location / Volume Laterality Blood Venipuncture / 08/06/2020 2:01 08/06/2020 2:01 Unknown PM DYE HOUSE HAND PM DYE HOUSE HAND Juan Cho MD LAB_1 Performing Organization Address City/[facility]/ZIP [facility] Phon e Number [facility] [address] [address] Hgb (08/06/2020 2:01 PM DYE HOUSE HAND) P athologist Signature Hemoglobin 13.7 12.0 - 15.5 08/06/2020 [facility] g/dL 2:14 PM DYE HOUSE HAND [facility] Specimen Anatomical Collection Method / Collection Time Recei gil Time (Source) Location / Volume Laterality Blood Venipuncture / 08/06/2020 2:01 08/06/2020 2:01 Unknown PM DYE HOUSE HAND PM DYE HOUSE HAND Juan Cho MD LAB_1 Performing Organization Address [facility] Phon e Number [facility] LAB[facility] [address] [place] [address] (ABNORMAL) HgbA1c (08/06/2020 2:01 PM DYE HOUSE HAND) [facility] Method Time Signature Hemoglobin A1C 8.2 (H) <=5.6 % 08/06/2020 [facility] 7:02 PM DYE HOUSE HAND [facility] Specimen Anatomical Collection Method / Collection Time Recei gil Time (Source) Location / Volume Laterality Blood Venipuncture / 08/06/2020 2:01 08/06/2020 2:01 Unknown PM DYE HOUSE HAND PM DYE HOUSE HAND Narrative [facility] - 08/06/2020 7:02 PM DYE HOUSE HAND For patients not previously diagnosed with diabetes: 5.7-6.4%: Increased risk for diabetes 6.5% and greater: Diagnostic for diabete s For patients diagnosed with diabetes: <8.0%: Goal of therapy for ages 18-75 Clinicians may recommend a higher or low er goal for specific individuals. Juan Cho MD LAB_1 Performing Organization Address City/[facility] Code Phon e Number [facility] [address] [address] LDL Direct (08/06/2020 2:01 PM DYE HOUSE HAND) P athologist Signature LDL, Direct 82 <=130 08/06/2020 [facility] mg/dL 5:27 PM DYE HOUSE HAND [facility] Specimen Anatomical Collection Method / Collection Time Recei gil Time (Source) Location / Volume Laterality Blood Venipuncture / 08/06/2020 2:01 08/06/2020 2:01 Unknown PM DYE HOUSE HAND PM DYE HOUSE HAND Juan Cho MD LAB_1 Performing Organization Address City/State/ZIP Code Phon e Number [facility] [address] [address] documented in this encounter Visit Diagnoses Diagnosis Dyslipidemia, goal LDL below 100 (HRC) Other and unspecified hyperlipidemia Stage 3a chronic kidney disease ([facility]) Hyperuricemia Other abnormal blood chemistry Essential hypertension (HRC) Unspecified essential hypertension Microalbuminuria Proteinuria documented in this encounter Care Teams Trust Advisor Relationship Specialty Start Date End Date Elyse Paredes MD PCP - General Family Practice 03/19/17 [address] [place] [address] documented as of this encounter
--- OUTSIDE RECORDS SUMMARY | 2022-07-02 13:51 | XMS_ITS | Encounter Summary ---
:1950 Author Organization [facility] Address [address] [place] [address] Care Team Providers Name Role Phone Elyse Paredes MD Primary Care Provider Reason for Visit Reason Onset Date Comments Refill 07/15/2020 allopurinol (ZYLOPRI M) 100 MG tablet Encounter Details Date Type Department Care Team Description 07/15/2020 Refill [facility] Nephrology Deepti Rivera, Refill (allopurinol [address] (ZYLOPRIM) 100 [place] [address] tablet) [phone] [place], [place] [address] (Wo rk) Social History Tobacco Use Types Packs/Day Years Used Date Smoking Tobacco: Former Cigarettes Quit : 08/02/1981 Smokeless Tobacco: Never Alcohol Use Standard Drinks/Week Comments No 0 (1 standard drink = 0.6 oz pure alcoho l) Sex Assigned at Date Recorded Not on file documented as of this encounter Nursing Notes Kirk Pino RN - 07/15/2020 12:11 PM CST Refilled per SO. Kirk Pino RN 07/15/2020, 12:11 PM DER OPERATOR EXTERNAL TOOL Interface, Out Surescripts Prov Query - 07/15/2020 11:53 AM CST allopurinol (ZYLOPRIM) 100 MG tablet Endocrinology: Gout -> AST, HCT, PLT, and WBC were not found within the last 5 years. -> Eye Exam was not found within the last 5 years. Last qualifying visit: 06/03/2020 (in NEPHROLOGY) Next scheduled visit: None Last ordered by DEEPTI RIVERA B: 03/25/2020 (112 days ago) QTY: 30, Refills: 3, Sig: take 1 tabletby mouth daily. (unchanged) Cr: 1.28 mg/dL on 05/28/2020 AST: Not found ALT: 21 U/L on 02/13/2020 eGFR: Not found Eye Exam: Not found HCT: Not found HGB: 13 g/dL on 02/13/2020 PLT: Not found Uric Acid: 6.2 mg/dL on 05/28/2020 WBC: Not found PATIENT IS DUE FOR: - AST for allopurinol (ZYLOPRIM) 100 MG tablet - EYE EXAM for allopurinol (ZYLOPRIM) 100 MG tablet - COMPLETE BLOOD COUNT for allopurinol (ZYLOPRIM) 100 MG tablet Powered by [employer], Reference: [id number], 07/15/2020 11:53:00 AM GRINDER OPERATOR EXTERNAL TOOL, Pool: Nicole ([id number]) DER OPERATOR EXTERNAL TOOL Interface, Out Surescripts Prov Query - 07/15/2020 11:53 AM CST The following lab order(s) may be associated with the Result Note below: HEMOGLOBIN, BLOOD; ALT (SGPT) Notes recorded by Jacquelyn Matos RN on 02/14/2020 at 3:19 PM CDT Will discuss at office visit on 02/19/2020 Jacquelyn Matos RN 02/14/2020, 3:18 PM DER OPERATOR EXTERNAL TOOL Interface, Out Surescripts Prov Query - 07/15/2020 11:53 AM CST The following lab order(s) may be associated with the Result Note below: URIC ACID; BASIC METABOLIC PANEL Notes recorded by Jazmin Holloway RN on 05/31/2020 at 11:27 AM CDT Patient has reviewed some labs online. Dr. Rivera's notes sent to patient via online patient services. Jazmin Holloway RN ------ Notes recorded by Deepti Rivera MD on 05/31/2020 at 10:38 AM CDT Labs reviewed. The urine test looks good, no protein seen in the urine, no microalbumin Creatinine stable at 1.28, estimated GFR is 43 ml/min Uric acid is 6.2 which is better. Deepti Rivera MD ------ Notes recorded by Edelmira Cisneros RN on 05/29/2020 at 9:55 AM CDT 11/2 previsit labs. Edelmira Cisneros RN 05/29/2020, 9:55 AM DER OPERATOR EXTERNAL TOOL Interface, Out Surescripts Prov Query - 07/15/2020 11:53 AM CST The following lab order(s) may be associated with the following Patient Result Comment (Entered by Juan Cho MD at 02/21/2020 7:56 PM): HGB A1C At [id number] goal is less than 8.0 with a diagnosis of [id number] (estimated Average Glucose) (%)(mg/dL)5 97 6 126 7 154 8 183 9 212 10 240 11 269 12 298 Normal blood sugar A1c 6.4 and lessPrediabetes diagnosed by an A1c 5.7- 6.4Diabetes diagnosed by an A1c 6.5 and above DER OPERATOR EXTERNAL TOOL Interface, Out Surescripts Prov Query - 07/15/2020 11:53 AM CST The following lab order(s) may be associated with the following Patient Result Comment (Entered by Jazmin Holloway, RN at 05/31/2020 10:26 AM): BASIC METABOLIC PANEL Labs reviewed. The urine test looks good, no protein seen in the urine, no microalbuminCreatinine stable at 1.28, estimated GFR is 43 ml/minUric acid is 6.2 which is better.Deepti Rivera MD DER OPERATOR EXTERNAL TOOL Interface, Out Surescripts Prov Query - 07/15/2020 11:53 AM CST The following lab order(s) may be associated with the following Patient Result Comment (Entered by Jazmin Holloway, PAYTON at 05/31/2020 10:26 AM): URIC ACID Labs reviewed. The urine test looks good, no protein seen in the urine, no microalbuminCreatinine stable at 1.28, estimated GFR is 43 ml/minUric acid is 6.2 which is better.Deepti Rivera MDLabs reviewed. The urine test looks good, no protein seen in the urine, no microalbuminCreatinine stable at 1.28, estimated GFR is 43 ml/minUric acid is 6.2 which is better.Deepti Rivera MD DER OPERATOR EXTERNAL TOOL documented in this encounter Plan of Treatment Upcoming Encounters Date Type Specialty Care Team Description 08/13/2022 Appointment Radiology Denise Aguirre APRN, INSPECTOR WELDED PARTS [address] [place], [place] [address] (Wo rk) 08/13/2022 Appointment Hematology and Oncology Denise Aguirre APRN, INSPECTOR WELDED PARTS [address] [place], [place] [address] (Wo rk) documented as [...] ied whether stage 3a or 3b CKD ([facility]) - Primary documented in this encounter Care Teams Senior Private Client Advisor Relationship Specialty Start Date End Date Elyse Paredes MD PCP - General Family Practice 03/19/17 [address] [place] [address] documented as of this encounter
--- OUTSIDE RECORDS SUMMARY | 2022-07-02 13:51 | XMS_ITS | Encounter Summary ---
:1950 Author [facility] Address [address] [place] [address] Care Team Providers Name Role Phone Elyse Paredes MD Primary Care Provider Reason for Visit Reason Comments Refill Continuous Blood Gluc Sensor (DEXCOM G6 SENSOR) MISC [Pharmacy Med Name: DEXCOM G6 SENSOR MISC]; Cont inuous Blood Gluc Transmit (DEXCOM G6 TRANSMITTER) MISC [Pharmacy Med Name: DEX COM G6 TRANSMITTER MISC] Encounter Details Date Type Department Care Team Description 04/05/2020 Refill [facility] [address], Refill ([facility] MD Blood Gluc Sensor [address] (DEXCOM G6 SENSOR) [place] [address] [place], [place] [Pharmacy Med Name: [phone] [id number] DEXCOM G6 SENSOR MISC]; [phone] (Wo rk) Continuous Blood Gluc Transmit (DEXCOM G6 TRANSMITTER) [facility] [Pharmacy Med N [place]: DEXCOM G6 TRANS MITTER MISC]) Social History Tobacco Use Types Packs/Day Years Used Date Smoking Tobacco: Former Cigarettes Quit : 08/02/1981 Smokeless Tobacco: Never Alcohol Use Standard Drinks/Week Comments No 0 (1 standard drink = 0.6 oz pure alcoho l) Sex Assigned at Date Recorded Not on file documented as of this encounter Nursing Notes Interface, Out Surescripts Prov Query - 04/05/2020 10:55 AM CDT Continuous Blood Gluc Sensor (DEXCOM G6 SENSOR) MISC [Pharmacy Med Name: DEXCOM G6 SENSOR MISC] None Exists -> Unable to determine if patient is due for a renewal, please review. -> The requested sig has changed from the last order. -> The medication cannot be recognized so the correct monitoring guidelines cannot be found. Last qualifying visit: 02/19/2020 (in Endocrinology with JUAN ZARAGOZA) Next scheduled visit: None Last ordered by JUAN ZARAGOZA: 10/17/2019 (171 days ago) QTY: 3, Refills: 5, Sig: use as directedfor continuous glucose monitoring. change sensor every 10 days. (changed) Powered by [employer], Reference: [id number], 04/05/2020 10:55:42 AM CDT, Pool: ENDO REFILL PAYTON ([id number]) Continuous Blood Gluc Transmit (DEXCOM G6 TRANSMITTER) MISC [Pharmacy Med Name: DEXCOM G6 TRANSMITTER MISC] None Exists -> Unable to determine if patient is due for a renewal, please review. -> The requested sig has changed from the last order. -> The medication cannot be recognized so the correct monitoring guidelines cannot be found. Last qualifying visit: 02/19/2020 (in Endocrinology with JUAN ZARAGOZA) Next scheduled visit: None Last ordered by JUAN ZARAGOZA: 10/17/2019 (171 days ago) QTY: 1, Refills: 1, Sig: use as directedfor continuous glucose monitoring. change every 3 months. (changed) Powered by [employer], Reference: [id number], 04/05/2020 10:55:42 AM CDT, Pool: MARY YANEZ RN ([id number]) documented in this encounter Plan of Treatment Upcoming Encounters Date Type Specialty Care Team Description 08/13/2022 Appointment Radiology Denise Aguirre APRN, PANTRY WORKER [address] [place], [place] [address] (Wo rk) 08/13/2022 Appointment Hematology and Oncology Denise Aguirre APRN, PANTRY WORKER [address] [place], [place] [address] (Wo rk) documented as [...] insulin documented in this encounter Care Teams Infrastructure Software Engineer Relationship Specialty Start Date End Date Elyse Paredes MD PCP - General Family Practice 03/19/17 [address] [place] [address] documented as of this encounter
--- OUTSIDE RECORDS SUMMARY | 2022-07-02 13:51 | XMS_ITS | Encounter Summary ---
:1950 Author Organization [facility] Address [address] [place] [address] Care Team Providers Name Role Phone Elyse Paredes MD Primary Care Provider Encounter Details Date Type Department Care Team Description 08/05/2020 Telemedicine Critical access hospital Cancer Denise Aguirre alignant neoplasm [facility] M, GRIFFIN, AUTO WASHER of overlapping [address] of left breast in [address] [place] [address] female, [place] [id number] receptor positive [phone] (HRC) (Primary Dx) (Work) Social History Tobacco Use Types Packs/Day Years Used Date Smoking Tobacco: Former Cigarettes Quit : 08/02/1981 Smokeless Tobacco: Never Alcohol Use Standard Drinks/Week Comments No 0 (1 standard drink = 0.6 oz pure alcoho l) Sex Assigned at Date Recorded Not on file documented as of this encounter Patient Instructions Patient InstructionsDenise Aguirre APRN, AUTO WASHER - 08/05/2020 2:00 PM HUMANITIES DIVISION CHAIR Dear Marci, It was a pleasure to see you. Plan: 1. Continue tamoxifen 20 mg daily 2. Continue annual pelvic exam through Dr. Paredes's clinic to screen for tamoxifen induced endometrialcancer. 3. Continue warfarin to maintain INR between 2-3. Monitor INR more closely as tamoxifen increases the potency of warfarin, so the INR may be higher. 4. Calcium 1200 mg and vitamin D 1000 units per day through diet and supplement. 5. Return to see me in 6 months for interval H&P (in person or video visit). 6. You will be due for repeat bilateral screening mammogram(s) in July 2021 Call with any questions or concerns. The clinic phone number is [phone]. After hours, please call the nurse care line at [phone]. Denise Hernandez APRN, AUTO WASHER Called pt and scheduled apts. Scheduled six month F/U as a video visit, is open to switching to in-person if she is vaccinated. AVS declined. TM 08/05/2020, 4:02 PM NITIES DIVISION CHAIR documented in this encounter Progress Notes Denise Aguirre APRN, BARRETT - 08/05/2020 2:00 PM CST [facility] Oncology/Hematology Follow up Visit Note Date of Service: 08/05/2020 Cancer Summary (Printed and given to the patient): Diagnosis, Stage, Prognostic Factors: ?? 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 VIDEO VISIT Interval History: Marci returns for an interval follow up. She says she didn't start Tamoxifen until March 2020. She wanted to let her body cool off from the pain she had with anastrozole. She overall feels she's tolerating the Tamoxifen much better. She denies any hot flashes, changes in mood, new swelling concerning of DVT. She is no Warfarin and has been therapeutic without any changes to dosing. She had her eyeexamination in March 2020 and her pelvic exam with Dr. Paredes at [facility] in May. [place] stopped her Sertraline and is now on velafaxine. She is recovering from a Slipped disc. She had a MRI done which showed a herniation at C7-T1. She has no new bony pain, shortness of breath, abdominal pain/early satiety, unintentional weight loss or new concerns of lumps/bumps today. Mammogram was done in July. ROS: Full 10 point review of systems [...] and unlabored Psych: mood and affect appropriate Data Reviewed: MM MAMMOGRAM SCREENING BILAT W 3D [place] W CAD performed on 07/22/20 ?? Compared to: 07/21/2019 MM Mammogram Screening Bilat W 3D [place] W CAD, 07/19/2018 MM Mammogram Screening Bilat W CAD, and 03/27/2015 Foreign Image(S) Mammogram Bilateral Screening ?? FINDINGS: Bilateral screening mammogram was performed with the assistance of Computer-Aided Detection and breast tomosynthesis. The breasts have scattered areas of fibroglandular density. ?? There are breast conservation changes on the left. ?? There is no radiographic evidence of malignancy. ?? IMPRESSION: ACR BI-RADS Category 2: Benign ?? RECOMMENDATION: Follow Up Imaging in 12 months - Bilateral ?? The results and recommendations of this examination will be communicated to the patient. Assessment: A 70 y.o. lady with postmenopausal [...] dermatitis, who is currently receiving adjuvant endocrine therapy and has no radiographic/mammographic or clinical evidence of cancer recurrence or interval development of new primary breast cancer. She received adjuvant anastrozole c/b severe arthralgias, myalgias, disturbed sleep, fatigue, all ofwhich are severely impairing her quality of life. She is now on tamoxifen which she is tolerating much better. We reviewed that she should come in this year for a breast examination. Her recent mammogram was without any evidence of recurrence and she is clinically doing well. We reviewed that she should continue annual eye examination and pelvic examinations while on tamoxifen. Counseling: I had a very long discussion with the patient and explain all of the above in lay language. She is very intelligent, verbalized clear understanding of the discussion, asked appropriate questions, which have been answered to her apparent satisfaction. She is in agreement with the following management plan. Plan: 1. Continue tamoxifen 20 mg daily 2. Continue annual pelvic exam through Dr. Paredes's clinic to screen for tamoxifen induced endometrialcancer. 3. Continue warfarin to maintain INR between 2-3. Monitor INR more closely as tamoxifen increases the potency of warfarin, so the INR may be higher. 4. Calcium 1200 mg and vitamin D 1000 units per day through diet and supplement. 5. Return to see me in 6 months for interval H&P 6. You will be due for repeat bilateral screening mammogram(s) in July 2021 COUNSELING: All of the above was explained to the patient in lay language. The patient has verbalized a clear understanding of the discussion, asked appropriate questions, which have been answered to the patient's apparent satisfaction. The patient is in complete agreement with the plan outlined in thi s note. Denise Aguirre APRN, BARRETT NITIES DIVISION CHAIR Stefani Fontana RN - 08/05/2020 2:00 PM CST Completed per provider's orders. QOPI: Is patient starting new chemotherapy medications today or in the near future? No Stefani Fontana RN 08/05/2020 5:01 PM NITIES DIVISION CHAIR documented in this encounter Plan of Treatment Upcoming Encounters Date Type Specialty Care Team Description 08/13/2022 Appointment Radiology Denise Aguirre APRN, BARRETT [address] [place], [place] [address] (Wo rk) 08/13/2022 Appointment Hematology and Oncology Denise Aguirre APRN, CNP [address] [place], [place] [address] (Wo rk) documented as of this encounter Goals Goal Patient Goal Associated Recent Patient-Stated? Author Type Problems Progress Being active Diabetes Diabetes Cara Carranza, Education Education Tanner Ng RD, CALE Note: Formatting of this note might be d ifferent from the original. Being Active: Continue with Cardiac Reha b, 3 days per week, and work on gradually increasing your daily exercise on other days. Eating healthy Diabetes Education Diabetes Education Tanner Loredo RD, CDE Note: Formatting of this note [...] Primary documented in this encounter Care Teams Land Manager Relationship Specialty Start Date End Date Elyse Paredes MD PCP - General Family Practice 03/19/17 [address] [place] [address] documented as of this encounter
--- OUTSIDE RECORDS SUMMARY | 2022-07-02 13:51 | XMS_ITS | Encounter Summary ---
:1950 Author Organization [employer] Address [address] [place] [address] Care Team Providers Name Role Phone Elyse Paredes MD Primary Care Provider Reason for Visit Reason Comments QUESTIONS, GENERAL Encounter Details Date Type Department Care Team Description 08/27/2020 Telephone [facility] Nephrology Prasanna Rivera MD QUESTIONS, GENERAL [address] [facility] [address] [place] [address] [place] [address] [phone] (Wo rk) Social History Tobacco Use Types Packs/Day Years Used Date Smoking Tobacco: Former Cigarettes Quit : 08/02/1981 Smokeless Tobacco: Never Alcohol Use Standard Drinks/Week Comments No 0 (1 standard drink = 0.6 oz pure alcoho l) Sex Assigned at Date Recorded Not on file documented as of this encounter Nursing Notes Jefe Recinos - 09/05/2020 12:17 PM CST Pt is scheduled labs on 10/07. Jefe Moore GENCY MEDICINE PHYSICIAN Jefe Recinos - 09/03/2020 11:48 AM CST Left message for pt. Jefe Moore GENCY MEDICINE PHYSICIAN Prasanna Rivera MD - 09/02/2020 3:32 PM CST I have extended the labs Prasanna Rivera MD GENCY MEDICINE PHYSICIAN Jefe Recinos - 08/30/2020 3:20 PM CST Pt is scheduled on 10/15. Pt would like to have labs completed a week prior to her visit. Can we extend the labs orders? ThanksJefe GENCY MEDICINE PHYSICIAN Jefe Recinos - 08/30/2020 3:12 PM CST Left message for pt. Jefe Moore GENCY MEDICINE PHYSICIAN Kirk Pino RN - 08/30/2020 2:44 PM CST CA please call pt regarding rescheduling. OK by Dr. Rivera. See TE notes below. ThanksKirk RN 08/30/2020, 2:44 PM GENCY MEDICINE PHYSICIAN Prasanna Rivera MD - 08/29/2020 12:56 PM CST It is ok to reschedule for [address], we probably previsit lab planned too early since there was a call on 07/24 for labs, then labs on Aug 06. She is right, she would not need labs again prior to her visit on 09/02. Prasanna Rivera MD GENCY MEDICINE PHYSICIAN Jefe Recinos - 08/29/2020 9:35 AM CST Pt calls back and states that would Dr. Rivera mind if she reschedule for 6 weeks. Jefe Moore GENCY MEDICINE PHYSICIAN Jefe Recinos - 08/29/2020 9:21 AM CST Pt is calling as states will she needs to do labs again before her appt on 09/02. Pt states that she would rather not do labs as she had some done on 08/06. Jefe Moore GENCY MEDICINE PHYSICIAN Kirk Pino, RN - 08/27/2020 11:58 AM CST Noted that labs were done 08/06. Please advise if you would like pt to get anymore labs done for upcoming appt on 09/02. Kirk Pino RN 08/27/2020, 11:59 AM GENCY MEDICINE PHYSICIAN Jefe Recinos - 08/27/2020 11:52 AM CST Miscellaneous Questions & FYI's [ Appt Center/It Solutions Architect: If this call is after 3 p.m., communicate to patient: If we are not able to get back to you by the end of the day and your symptoms worsen please contact the Careline at [phone] OR at .] Is this a symptom? No What is your question or concern? Pt states that since she had labs done on 08/[address] Rivera and she refuses to have labs done before her visit with Dr. Rivera on 09/02 as she feels that the 08/06 labs are good enough. Have you recently been seen for this? No Is it okay to leave a detailed message on your voicemail? Yes Jefe Recinos GENCY MEDICINE PHYSICIAN documented in this encounter Plan of Treatment Upcoming Encounters Date Type Specialty Care Team Description 08/13/2022 Appointment Radiology Denise Aguirre, AMBULANCE OPERATIONS SUPERVISOR, MUD PLANT OPERATOR [address] [place], [place] [address] (Wo rk) 08/13/2022 Appointment Hematology and Oncology Denise Aguirre APRN, MUD PLANT OPERATOR [address] [place], [place] [address] (Wo rk) documented as [...] on filedocumented in this encounter Care Teams Wireless Sales Associate Relationship Specialty Start Date End Date Elyse Paredes MD PCP - General Family Practice 03/19/17 [address] [id number] documented as of this encounter
--- OUTSIDE RECORDS SUMMARY | 2022-07-02 13:51 | XMS_ITS | Encounter Summary ---
:1950 Author Organization [employer] Address [address] [place] [address] Care Team Providers Name Role Phone Elyse Paredes MD Primary Care Provider Reason for Visit Reason Comments Orders Needed Encounter Details Date Type Department Care Team Description 07/24/2020 Telephone [facility] Nephrology Prasanna Rivera MD Orders Needed [address] [facility] [address] [place] [address] [place], [place] [id number] (Wo rk) Social History Tobacco Use Types Packs/Day Years Used Date Smoking Tobacco: Former Cigarettes Quit : 08/02/1981 Smokeless Tobacco: Never Alcohol Use Standard Drinks/Week Comments No 0 (1 standard drink = 0.6 oz pure alcoho l) Sex Assigned at Date Recorded Not on file documented as of this encounter Nursing Notes Prasanna Brown - 07/24/2020 10:23 AM CST Patient labs will be ordered prior to her upcoming appointment in Sep and will be called to advise and schedule lab Prasanna Brown NEYMAN PIPE WELDER Katya Garcia - 07/24/2020 9:30 AM CST Miscellaneous Questions [Appt Center: If this call is after 3 p.m., communicate to patient: If we are not able to get back to you by the end of the day and your symptoms worsen please contact the Careline at [phone] OR at .] Is this a question/concern or an FYI? Question/Concern What is your question or concern? Pt is looking to see if she neds orders prior to appt. Unsure If she needs them or not Have you recently been seen for this? No Is it okay to leave a detailed message on your voicemail? Yes Katya Garcia NEYMAN PIPE WELDER documented in this encounter Plan of Treatment Upcoming Encounters Date Type Specialty Care Team Description 08/13/2022 Appointment Radiology Denise Aguirre, RFID ANALYST, COOKER HELPER [address] [place], [place] [address] (Wo rk) 08/13/2022 Appointment Hematology and Oncology Denise Aguirre, RFID ANALYST, COOKER HELPER [address] [place], [place] [address] (Wo rk) documented as [...] on filedocumented in this encounter Care Teams Mat Making Machine Tender Relationship Specialty Start Date End Date Elyse Paredes MD PCP - General Family Practice 03/19/17 [address] [place] [address] documented as of this encounter
--- OUTSIDE RECORDS SUMMARY | 2022-07-02 13:51 | XMS_ITS | Encounter Summary ---
:1950 Author Organization [facility] Address [address] [place] [address] Care Team Providers Name Role Phone Elyse Paredes MD Primary Care Provider Reason for Visit Reason Comments MEDICATION REVIEW AND EDUCATION Encounter Details Date Type Department Care Team Description 03/18/2020 [facility] Evelio Vega Dys lipidemia, goal LDL MTM D, PharmD below 100 (Primary Dx) [address] [place] [id number] Social History Tobacco Use Types Packs/Day Years Used Date Smoking Tobacco: Former Cigarettes Quit : 08/02/1981 Smokeless Tobacco: Never Alcohol Use Standard Drinks/Week Comments No 0 (1 standard drink = 0.6 oz pure alcoho l) Sex Assigned at Date Recorded Not on file documented as of this encounter Progress Notes Evelio Vega, PharmD - 03/18/2020 1:25 PM CDT Subjective Marci Diaz is a 69 y.o. female who was referred by Medicare seen over the phone for medication review/education. Patient???s main concern today is - no specific concerns. Patient is established with cardiology, nephrology, oncology, endocrinology. Persistent atrial fibrillation. [id number] score of 5. Failed DCCV. - warfarin per dosing service, INR checked q4 weeks, although last value found is 1.8 from 3 monthsago. - metoprolol succinate 25 mg daily Coronary artery disease - rosuvastatin 10 mg daily. 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 Utilized Dexcom CGM. - Lantus 50 Units daily - Ozempic 1 mg weekly - Humalog 5-10 units with meals. Depression - venlafaxine ER 75 mg daily, recently changed from sertraline due to tamoxifen interaction. She reports feeling sad at time over minor things but is less irritable while taking the medication. Hyperuricemia - allopurinol 100 mg daily S/P TAVR Urinary tract stones OTC - famotidine 10 mg daily as needed for heartburn - no NSAID use. Adherence: ??? # of times per day patient takes meds: 3 ??? # of missed doses in the past week: 0 ??? Use of supportive adherence tools: pill box ??? Med cost concerns: no Objective Allergies for Marci Diaz Status Agent Date Noted Reaction Type Active ERYTHROMYCIN 04/04/2011 Rash Active LISINOPRIL 06/17/2017 Other, see comments Allergy Active METFORMIN 06/17/2017 Other, see comments Allergy Nausea And Vomiting Social History Tobacco Use ??? Smoking status: Former Smoker Last attempt to quit: 08/02/1981 Years since quittin.6 ??? Smokeless tobacco: Never Used Substance Use Topics ??? Alcohol use: No ??? Drug use: Not on file Hemoglobin A1C (%) Date Value 02/13/2020 7.3 (H) Point of Care A1c (%) Date Value 08/09/2018 8.2 (H) BUN Date Value 02/13/2020 27 mg/dL (H) 03/19/2017 21 mg/dl Sodium (mmol/L) Date Value 02/13/2020 140 03/19/2017 141 Potassium (mmol/L) Date Value 02/13/2020 4.0 03/19/2017 4.0 Chloride (mmol/L) Date Value 02/13/2020 100 03/19/2017 105 Glucose Date Value 02/13/2020 188 mg/dL (H) 03/19/2017 105 mg/dl Creatinine Date Value 02/13/2020 1.24 mg/dL (H) 03/19/2017 0.98 mg/dl GFR, Estimated Date Value 02/13/2020 45 mL/min/1.73m2 (L) 03/19/2017 >60 ml/min/1.73m2 GFR, Est., If Black (ml/min/1.73m2) Date Value 03/19/2017 >60 Calcium Date Value 02/13/2020 9.6 mg/dL 03/19/2017 10.2 mg/dl Anion Gap (calc.) (mmol/L) Date Value 03/19/2017 10 Anion Gap (mmol/L) Date Value 02/13/2020 11 Ratio (mg/g creatinine) Date Value 03/19/2017 63 (H) Microalb/Creat Ratio, Urine Random (mg/g) Date Value 02/13/2020 82 (H) No results found for: LDLDR LDL, Direct (mg/dL) Date Value 02/13/2020 73 Lab Results Component Value Date/Time ALT 21 02/13/2020 01:04 PM INR (no units) Date Value 12/21/2019 1.8 (H) Hemoglobin (g/dL) Date Value 02/13/2020 13.0 Lab Results Component Value Date/Time TSH 2.70 02/13/2020 01:04 PM Uric Acid (mg/dL) Date Value 02/13/2020 8.1 (H) Cardiovascular Risk Summary: A previous ASCVD condition (heart disease, peripheral vascular disease,or stroke) has been identified. Cardiovascular risk could be reduced with attention to the following, in order of priority Weight loss Statin use or intensification Assessment BP goal: <130/80. Pt is at goal. LDL goal: high intensity statin. Pt is not at goal. HgbA1C goal: <8%. Pt is at goal. 1. Antithrombotics and warfarin. Safety/efficacy - Lab monitoring needed Status: Resolved 2. Hyperuricemia and allopurinol. Effectiveness - Lab monitoring needed Status: Resolved 3. Hyperlipidemia and rosuvastatin. Effectiveness - Dosage Too Low: dosage adjustment recommended Status: Pending Plan 1) Patient advised to schedule lab appointment for INR, uric acid at earliest convenience. 2) Recommend she discuss rosuvastatin dose increase with roller picker. [facility] with [facility] Pharmacist in 1 yr. Updated EPIC med list and reviewed medications including indications with patient. Evelio Vega, PharmD Clinical Pharmacist Medication Therapy Management Program Billing Requirements: Recipient of visit: Patient Medicare CI: no Clinician location:home Patient location: home Billing based on time. Total time spent with patient 30 minutes. # of DTPs: 3 # of DTPs resolved: 2 documented in this encounter Plan of Treatment Upcoming Encounters Date Type Specialty Care Team Description 08/13/2022 Appointment Radiology Denise Aguirre, LEAD ELECTRICAL ENGINEER, LINOLEUM TILE FLOOR LAYER [address] [place], [place] [address] (Wo rk) 08/13/2022 Appointment Hematology and Oncology Denise Aguirre APRN, LINOLEUM TILE FLOOR LAYER [address] [place], [place] [address] (Wo rk) documented as [...] (HRC) - Primary Other and unspecified hyperlipidemia documented in this encounter Care Teams Community Health Education Coordinator Relationship Specialty Start Date End Date Elyse Paredes MD PCP - General Family Practice 03/19/17 [address] [place], [place] [id number] documented as of this encounter
--- OUTSIDE RECORDS SUMMARY | 2022-07-02 13:51 | XMS_ITS | Encounter Summary ---
:1950 Author Organization [employer] Address [address] [place] [address] Care Team Providers Name Role Phone Elyse Paredes MD Primary Care Provider Reason for Visit Reason Comments Revisit Encounter Details Date Type Department Care Team Description 02/19/2020 [facility] Prasanna Rivera CKD ( chronic kidney disease) stage 3, GFR 30-59 ml/min (HRC) (Primary Dx); 401 Nephrology MD Angelica Hyperuricemia; [address] [facility] Essential hypertension; [place] [address] [place] Microalbuminuria [phone] Social History Tobacco Use Types Packs/Day Years Used Date Smoking Tobacco: Former Cigarettes Quit : 08/02/1981 Smokeless Tobacco: Never Alcohol Use Standard Drinks/Week Comments No 0 (1 standard drink = 0.6 oz pure alcoho l) Sex Assigned at Date Recorded Not on file documented as of this encounter Patient Instructions Patient InstructionsPrasanna Rivera MD - 02/19/2020 10:30 AM CDT 1. The kidney function was a bit better, creatinine was 1.24, eGFR was 45 ml/min consistent to be stage 3 CKD 2. The uric acid was still high at 8.1, so we recently increased the allopurinol to 100 mg. 3. I would recommend trying omprazole 20 mg daily for heartburn, until you can see your primary caredoctor. 4. The urine test shows that the urine has a mild amount of protein in the urine, for which you are taking the losartan. Recommend that we recheck that in 3 months 5. Since you are not doing as well without celebrex for the joint pains, if they do not improve withtreatment of hyperuricemia, you may need a Rhuematology evaluation. 6. See me again in 3 months documented in this encounter Progress Notes Prasanna Rivera MD - 02/19/2020 10:30 AM CDT Nephrology Video Follow up Visit Name: Marci Diaz : 1950 DATE OF SERVICE: 02/19/2020 NAME OF REQUESTING PHYSICIAN: Elyes Paredes MD REASON FOR VISIT:follow up abnormal kidney function, joint pains, hyperuricemia, hypertension Encounter Diagnoses 1. CKD (chronic kidney disease) stage 3, GFR 30-59 ml/min (HRC) 2. Hyperuricemia 3. Essential hypertension 4. Microalbuminuria ASSESSMENT/ PLAN: 1. Her serum creatinine remains 1.24, eGFR improved 45 mg/min, from 41 ml/min, she likely has hypertensive kidney disease. 2. Despite a history of diabetes, and she has some microalbumin on her last urine test, the urine microalbumin was 82 mg/g. She is taking losartan. 3. Hyperuricemia - this could be responsible for some of her joint complaints. She does not have classic gout symptoms. Her RF and CRP are normal. Uric acid 8.1, increase allopurinol to 100 mg daily. Avoiding celebrex. Take Tylenol arthritis prn 4. Joint pains - with some arthritic hand changes. CRP and RF were normal. Treating hyperuricemia - if not improved with treatment of hyperuricemia, she may need a Rheumatology evaluation. Orders Placed This Encounter Procedures ??? Basic Metabolic Panel Standing Status: Future Standing Expiration Date: 06/28/2020 ??? Uric Acid Standing Status: Future Standing Expiration Date: 06/28/2020 ??? Microalbumin/Creatinine Ratio Standing Status: Future Standing Expiration Date: 06/28/2020 Thank you for allowing me to participate in the care of this pt. I will follow her closely with you. I spent 15 minutes video face to face time with the patient, evaluating, discussing findings, and coordinating a care plan. Additional 5 minutes were spent on lab orders and preparation of the AVS she will return to the clinic in 3 months Prasanna Rivera MD Nephrology HISTORY OF PRESENTING ILLNESS: Thank you for allowing me to participate in the care of . Marci Diaz She was evaluated during a video visit today in the setting of pandemic COVID-19 and increased risk to patient to travel due to age and comorbidity. As you know, she is a 69 y.o. female with a creatinine of 1.33 and recent joints pains. I had her reduce her losartan to 50 mg daily. Her uric acid was high at 8.3. She reports some recent nausea since switching to Ozempic from Trulicity. Her Oncologist changed her to tamoxifen from anastrozole. This was due to joint pains. She reports that the ice-pick quality of the pain is better. Fatigue is also better. She continues to have pain in the upper extremities, in the fingers, hands, wrists. Elbows are pretty well spared. Some shoulder issues. RF was negative. CRP were normal. Her uric acid went from 8.3 to 8.1 after starting allopurinol 50 mg daily, so we just increased thatto 100 mg daily. She has some heartburn, not relieved with Pepcid AC. She has been off celebrex since October. Creatinine improved to 1.24, from 1.33 Her uric acid was high at 8.3, and she started She has been taking tylenol arthritis ES 2 tablets BID. She still takes chlorthaildone. She has mild edema that is not really too much of a problem recently Her uric acid was 8.3 I reviewed her prior labs. Her creatinine [...] LAD stent in May of 2017 at [place]. She also underwent TAVR procedure in July [...] She has seen Dr. Johns of the [facility] in the past. PAST MEDICAL HISTORY: Past Medical History: Diagnosis Date ??? A-fib (HRC) ??? Breast cancer ([facility]) 2018 IDC - radiation ??? CAD (coronary artery disease) [place] to LAD ??? HTN (hypertension) ??? Hx of total knee arthroplasty Left knee ??? Hyperlipidemia ??? Nephrolithiasis ??? DEDE on CPAP ??? S/P TAVR (transcatheter aortic valve replacement) 07/2017, [facility] ??? Uncontrolled type 2 diabetes mellitus, with long-term current use of insulin (HRC) 03/19/2017 ALLERGIES: is allergic to erythromycin; lisinopril; [...] Last attempt to quit: 08/02/1981 Years since quittin.5 ??? Smokeless tobacco: Never Used Substance and Sexual Activity ??? Alcohol use: No ??? Drug use: Not on file ??? Sexual activity: Not on file Lifestyle ??? Physical activity Days per week: Not on file Minutes per session: Not on file ??? Stress: Not on file Relationships ??? Social connections Talks on phone: Not on file Gets together: Not on file Attends islam service: Not on file Active member of [...] History Narrative ??? Not on file MEDICATIONS: allopurinol (ZYLOPRIM) 100 MG tablet, Take 0.5 Tablets by mouth daily., Disp: 30 Tablet, Rfl: 3 amoxicillin (AMOXIL) 500 MG capsule, Take 500 mg by mouth., Disp: , Rfl: aspirin, enteric-coated 81 MG enteric coated tablet, Take 1 Tab by mouth daily., Disp: 90 Tab, Rfl: 3 celecoxib (CELEBREX) 200 MG capsule, 1 Cap daily., Disp: 90 Cap, Rfl: 1 chlorthalidone (HYGROTON) 25 MG tablet, Take 1 Tablet by mouth daily., Disp: 30 Tablet, Rfl: 11 Continuous Blood Gluc Wet Wash Assembler (DEXCOM G6 DUPLEX TRIMMER) JAY, Use as directed for continuous glucose monitoring., Disp: 1 Device, Rfl: 0 Continuous Blood Gluc Sensor (DEXCOM G6 SENSOR) [facility], Use as directed for continuous glucose monitoring. Change sensor every 10 days., Disp: 3 Each, Rfl: 5 Continuous Blood Gluc Transmit (DEXCOM G6 TRANSMITTER) [facility], Use as directed for continuous glucose monitoring. Change every 3 months., Disp: 1 Each, Rfl: 1 famotidine (PEPCID) 10 MG tablet, Take 10 mg by mouth., Disp: , Rfl: insulin glargine (BASAGLAR) 100 UNIT/ML KWIKPEN, 60 units in AM ( give in 2 separate injections of 30 units at the same time), Disp: 30 mL, Rfl: 11 insulin lispro (HUMALOG) 100 UNIT/ML injection vial, Use 10 units as a base with meals, plus slidingscale. Max dose 70 units daily, Disp: 30 mL, Rfl: 11 losartan (COZAAR) 50 MG tablet, , Disp: , Rfl: metoprolol succinate (TOPROL XL) 25 MG 24 hour release tablet, Take 1 Tablet by mouth daily., Disp: 90 Tablet, Rfl: 3 rosuvastatin (CRESTOR) 10 MG tablet, Take 1 Tab by mouth daily., Disp: 90 Tab, Rfl: 3 sertraline (ZOLOFT) 25 MG tablet, Take 1 Tablet by mouth daily for 14 days, THEN 0.5 Tablets daily for 14 days., Disp: 21 Tablet, Rfl: 0 tamoxifen (NOLVADEX) 20 MG tablet, Take 1 Tablet by mouth daily., Disp: 90 Tablet, Rfl: 3 warfarin (COUMADIN) 2.5 MG tablet, TAKE 1 TABLET BY MOUTH EVERY DAY, Disp: , Rfl: REVIEW OF SYSTEMS: As per HPI. + joint pains. PHYSICAL EXAM: Video Visit BP recently was 130/70. GEN in NAD Hands there are DIP changes, nodules B hands (seen on video) LABS: I personally reviewed the findings with the patient. Renal panel: Lab Results Component Value Date/Time SODIUM 140 02/13/2020 01:04 PM K 4.0 02/13/2020 01:04 PM CHLORIDE 100 02/13/2020 01:04 PM BUN 27 (H) 02/13/2020 01:04 PM CREATININE 1.24 (H) 02/13/2020 01:04 PM GFR 45 (L) 02/13/2020 01:04 PM GLUCOSE 188 (H) 02/13/2020 01:04 PM CA 9.6 02/13/2020 01:04 PM ANIONGAP 11 02/13/2020 01:04 PM Lab Results Component Value Date/Time CREATININE 1.24 (H) 02/13/2020 01:04 PM CREATININE 1.33 (H) 12/21/2019 12:30 PM CREATININE 1.31 (H) 11/21/2018 12:56 PM CREATININE 0.98 03/19/2017 01:51 PM CBC: Lab Results Component Value Date/Time HGB 13.0 02/13/2020 01:04 PM HbA1C: Hemoglobin A1C (%) Date Value 02/13/2020 7.3 (H) 12/21/2019 7.6 (H) Urine microalbumin/creatinine ratio: Ratio (mg/g creatinine) Date Value 03/19/2017 63 (H) Microalb/Creat Ratio, Urine Random (mg/g) Date Value 02/13/2020 82 (H) 12/21/2019 15 11/21/2018 6 See above for A/P Prasanna Rivera MD documented in this encounter Plan of Treatment Upcoming Encounters Date Type Specialty Care Team Description 08/13/2022 Appointment Radiology Denise Aguirre, ASSOCIATE DIRECTOR OF SALES, EXPEDITER SERVICE ORDER [address] [place], [place] [address] (Wo rk) 08/13/2022 Appointment Hematology and Oncology Denise Aguirre, ASSOCIATE DIRECTOR OF SALES, EXPEDITER SERVICE ORDER [address] [place], [place] [address] (Wo rk) documented as [...] as of this encounter Results Microalbumin/Creatinine Ratio (05/28/2020 1:09 PM CDT) [facility] gist Method Time Signature Albumin, 74.5 mg/L 05/28/2020 [facility] Urine, Random 6:37 PM CDT CENTRAL LAB Creatinine, 283 >20 mg/dL 05/28/2020 [facility] Urine, Random 6:37 PM CDT CENTRAL LAB Albumin/Creati 26 <30 mg/g 05/28/2020 [facility] nine Ratio, 6:37 PM CDT CENTRAL LAB Urine, Random Specimen Anatomical Collection Method Collection Time Receive d Time (Source) Location / / Volume Laterality Urine Non-blood 05/28/2020 1:09 PM 0 1:09 Collection / CDT PM CDT Unknown Prasanna Rivera MD LAB_1 Performing Organization Address [facility]/ZIP [facility] Phon e Number [facility] CENTRAL LAB [address] [address] (ABNORMAL) Uric Acid (05/28/2020 1:09 PM CDT) P athologist Signature Uric Acid 6.2 (H) 2.6 - 6.0 05/28/2020 [facility] mg/dL 3:59 PM CDT CENTRAL LAB Specimen Anatomical Collection Method / Collection Time Recei gil Time (Source) Location / Volume Laterality Blood Venipuncture / 05/28/2020 1:09 05/28/2020 1:09 Unknown PM CDT PM CDT Prasanna Rivera MD LAB_1 Performing Organization Address [facility] Code Phon e Number [facility] CENTRAL LAB [address] [address] (ABNORMAL) Basic Metabolic Panel (05/28/2020 1:09 PM CDT) [facility] gist Method Time Signature Sodium 141 136 - 145 05/28/2020 [facility] mmol/L 3:59 PM CDT CENTRAL LAB Potassium 3.6 3.5 - 5.1 05/28/2020 [facility] mmol/L 3:59 PM CDT CENTRAL LAB Chloride 99 98 - 109 05/28/2020 [facility] mmol/L 3:59 PM CDT CENTRAL LAB CO2 29 20 - 29 05/28/2020 [facility] mmol/L 3:59 PM CDT CENTRAL LAB Anion Gap 13 7 - 16 05/28/2020 [facility] mmol/L 3:59 PM CDT CENTRAL LAB Calcium 9.6 8.4 - 05/28/2020 [facility] 10.4 3:59 PM CDT CENTRAL LAB mg/dL BUN 17 7 - 26 05/28/2020 [facility] mg/dL 3:59 PM CDT CENTRAL LAB Creatinine 1.28 (H) 0.55 - 05/28/2020 [facility] 1.02 3:59 PM CDT CENTRAL LAB mg/dL GFR, Estimated 43 (L) >60 05/28/2020 [facility] mL/min/1. 3:59 PM CDT CENTRAL LAB 73m2 Glucose 165 (H) 70 - 100 05/28/2020 [facility] mg/dL 3:59 PM CDT CENTRAL LAB Comment: [...] Organization Address City/State/ZIP Code Phon e Number [facility] CENTRAL LAB [address] [address] [address] [address] [place] [id number] [place] [address] LABORATORY documented in this encounter Visit Diagnoses Diagnosis CKD (chronic kidney disease) stage 3, GF R 30-59 ml/min (HRC) - Primary Chronic kidney disease, Stage III (moder ate) Hyperuricemia Other abnormal blood chemistry Essential hypertension (HRC) Unspecified essential hypertension Microalbuminuria Proteinuria documented in this encounter Care Teams Operations Developer Relationship Specialty Start Date End Date Elyse Paredes MD PCP - General Family Practice 03/19/17 [address] [address] documented as of this encounter
--- OUTSIDE RECORDS SUMMARY | 2022-07-02 13:51 | XMS_ITS | Encounter Summary ---
:1950 Author Organization [employer] Address [address] [place] [address] Care Team Providers Name Role Phone Elyse Paredes MD Primary Care Provider Encounter Details Date Type Department Care Team Description 10/07/2020 Lab Visit Specialty Center Uncontro lled type 2 diabetes mellitus, with long-term current use of insulin ([facility]); Laboratory Stage 3a chronic kidney dise ase ([facility]) [address] [facility] [place] [address] Social History Tobacco Use Types Packs/Day Years Used Date Smoking Tobacco: Former Cigarettes Quit : 08/02/1981 Smokeless Tobacco: Never Alcohol Use Standard Drinks/Week Comments No 0 (1 standard drink = 0.6 oz pure alcoho l) Sex Assigned at Date Recorded Not on file documented as of this encounter Progress Notes Kirk Pino RN - 10/07/2020 1:00 PM CST Previsit labs for upcoming appt on 10/15. Kirk Pino RN 10/08/2020, 9:27 AM TE SENSING RESEARCH SCIENTIST Prasanna Rivera MD - 10/07/2020 1:00 PM CST Please let the patient know that the [...] The uric acid looks normal this time. Prasanna Rivera MD TE SENSING RESEARCH SCIENTIST documented in this encounter Plan of Treatment Upcoming Encounters Date Type Specialty Care Team Description 08/13/2022 Appointment Radiology Denise Aguirre, [employer] WEBSPHERE COMMERCE DEVELOPER, COMMUNITY SERVICES COORDINATOR [address] [place], [place] [address] (Wo rk) 08/13/2022 Appointment Hematology and Oncology Denise Aguirre, [employer] WEBSPHERE COMMERCE DEVELOPER, COMMUNITY SERVICES COORDINATOR [address] [place], [place] [address] (Wo rk) documented as [...] Name Priority Date/Time Associated Diagnosis Comme nts TSH, SENSITIVE Routine 10/07/2020 1:10 PM Uncontrolled type 2 Results for this REMOTE SENSING RESEARCH SCIENTIST diabetes mellitus, procedure are in with long-term the results current use of section. insulin ([facility]) BASIC METABOLIC Routine 10/07/2020 1:10 PM Stage 3a chronic Re sults for this PANEL REMOTE SENSING RESEARCH SCIENTIST kidney disease ([facility]) procedu re are in the results section. HEMOGLOBIN, BLOOD Routine 10/07/2020 1:10 PM Uncontrolled type 2 Results for this REMOTE SENSING RESEARCH SCIENTIST diabetes mellitus, procedure are in with long-term the results current use of section. insulin ([facility]) ALBUMIN/CREAT RATIO Routine 10/07/2020 1:10 PM Stage 3a chroni c Results for this REMOTE SENSING RESEARCH SCIENTIST kidney disease ([facility]) procedu re are in the results section. HGB A1C Routine 10/07/2020 1:10 PM Uncontrolled type 2 Re sults for this REMOTE SENSING RESEARCH SCIENTIST diabetes mellitus, procedure are in with long-term the results current use of section. insulin (HRC) URIC ACID Routine 10/07/2020 1:10 PM Stage 3a chronic Resul ts for this REMOTE SENSING RESEARCH SCIENTIST kidney disease ([facility]C) procedu re are in the results section. ALT (SGPT) Routine 10/07/2020 1:10 PM Uncontrolled type 2 Re sults for this REMOTE SENSING RESEARCH SCIENTIST diabetes mellitus, procedure are in with long-term the results current use of section. insulin (HRC) documented in this encounter Results Microalbumin/Creatinine Ratio (10/07/2020 1:10 PM REMOTE SENSING RESEARCH SCIENTIST) Patholo gist Method Time Signature Albumin, 15.8 mg/L 10/07/2020 [facility] Urine, Random 6:46 PM REMOTE SENSING RESEARCH SCIENTIST CENTRAL LAB Creatinine, 175 >20 mg/dL 10/07/2020 [facility] Urine, Random 6:46 PM REMOTE SENSING RESEARCH SCIENTIST CENTRAL LAB Albumin/Creati 9 <30 mg/g 10/07/2020 [facility] [employer] [facility] nine Ratio, 6:46 PM REMOTE SENSING RESEARCH SCIENTIST CENTRAL LAB Urine, Random Specimen Anatomical Collection Method Collection Time Receive d Time (Source) Location / / Volume Laterality Urine Non-blood 10/07/2020 1:10 PM 1:10 Collection / REMOTE SENSING RESEARCH SCIENTIST PM REMOTE SENSING RESEARCH SCIENTIST Unknown Prasanna Rivera MD LAB_1 Performing Organization Address City/State/ZIP Code Phon e Number [facility] CENTRAL LAB [address] [address] Uric Acid (10/07/2020 1:10 PM REMOTE SENSING RESEARCH SCIENTIST) P athologist Signature Uric Acid 6.0 2.6 - 6.0 10/07/2020 [facility] mg/dL 7:06 PM REMOTE SENSING RESEARCH SCIENTIST CENTRAL LAB Specimen Anatomical Collection Method / Collection Time Recei gil Time (Source) Location / Volume Laterality Blood Venipuncture / 10/07/2020 1:10 10/07/2020 1:10 Unknown PM REMOTE SENSING RESEARCH SCIENTIST PM REMOTE SENSING RESEARCH SCIENTIST Prasanna Rivera MD LAB_1 Performing Organization Address City/State/ZIP Code Phon e Number [facility] CENTRAL LAB [address] [address] (ABNORMAL) Basic Metabolic Panel (10/07/2020 1:10 PM REMOTE SENSING RESEARCH SCIENTIST) [facility] Method Time Signature Sodium 138 136 - 145 10/07/2020 [facility] mmol/L 7:06 PM REMOTE SENSING RESEARCH SCIENTIST CENTRAL LAB Potassium 3.4 (L) 3.5 - 5.1 10/07/2020 [facility] mmol/L 7:06 PM REMOTE SENSING RESEARCH SCIENTIST CENTRAL LAB Chloride 100 98 - 109 10/07/2020 [facility] mmol/L 7:06 PM REMOTE SENSING RESEARCH SCIENTIST CENTRAL LAB CO2 23 20 - 29 10/07/2020 [facility] mmol/L 7:06 PM REMOTE SENSING RESEARCH SCIENTIST CENTRAL LAB Anion Gap 15 7 - 16 10/07/2020 [facility] mmol/L 7:06 PM REMOTE SENSING RESEARCH SCIENTIST CENTRAL LAB Calcium 9.4 8.4 - 10/07/2020 [facility] 10.4 7:[address] [facility] CENTRAL LAB mg/dL BUN 18 7 - 26 10/07/2020 [facility] mg/dL 7:[address] [facility] CENTRAL LAB Creatinine 1.14 (H) 0.55 - 10/07/2020 [facility] 1.02 7:[address] [facility] CENTRAL LAB mg/dL GFR, Estimated 50 (L) >60 10/07/2020 [facility] mL/min/1. 7:[address] [facility] CENTRAL LAB 73m2 Glucose 220 (H) 70 - 100 10/07/2020 [facility] mg/dL 7:[address] [facility] CENTRAL LAB Comment: The given reference range is fo r the fasting state. Non-fasting reference range for glucose is 70 - 180 mg/dL. Hours Fasting 12 10/07/2020 7:06 PM [facility] LABORATORY Specimen Anatomical Collection Method / Collection Time Recei gil Time (Source) Location / Volume Laterality Blood Venipuncture / 10/07/2020 1:10 10/07/2020 1:10 Unknown PM REMOTE SENSING RESEARCH SCIENTIST PM REMOTE SENSING RESEARCH SCIENTIST Narrative [facility] CENTRAL LAB - 10/07/2020 7:06 PM REMOTE SENSING RESEARCH SCIENTIST The National Kidney Disease Education Pr ogram suggests measuring Cystatin C in patients with eGFRcrea of 45 to 59 ml/mi n/1.73^2 who do not have other markers of kidney damage (i.e. elevated urine Album in/Creatinine Ratio or a prior Cystatin C confirming the presence of chronic kidne y disease). Prasanna Rivera MD LAB_1 Performing Organization Address [facility] e Number [facility] CENTRAL LAB [address] [address] SPECIALTY [address] [place] [address] LABORATORY (ABNORMAL) HgbA1c (10/07/2020 1:10 PM REMOTE SENSING RESEARCH SCIENTIST) [employer] Method Time Signature Hemoglobin A1C 7.7 (H) <=5.6 % 10/07/2020 [facility] 9:30 PM REMOTE SENSING RESEARCH SCIENTIST CENTRAL LAB Specimen Anatomical Collection Method / Collection Time Recei gil Time (Source) Location / Volume Laterality Blood Venipuncture / 10/07/2020 1:10 10/07/2020 1:10 Unknown PM REMOTE SENSING RESEARCH SCIENTIST PM REMOTE SENSING RESEARCH SCIENTIST Narrative [facility] CENTRAL LAB - 10/07/2020 9:30 PM REMOTE SENSING RESEARCH SCIENTIST For patients not previously diagnosed with diabetes: 5.7-6.4%: Increased risk for diabetes 6.5% and greater: Diagnostic for diabete s For patients diagnosed with diabetes: <8.0%: Goal of therapy for ages 18-75 Clinicians may recommend a higher or low er goal for specific individuals. Juan Cho MD LAB_1 Performing Organization Address [facility] e Number [facility] CENTRAL LAB [address] [address] TSH (10/07/2020 1:10 PM REMOTE SENSING RESEARCH SCIENTIST) [employer] Method Time Signature TSH, Sensitive 4.44 0.30 - 10/07/2020 [facility] 4.50 6:40 PM REMOTE SENSING RESEARCH SCIENTIST CENTRAL LAB uIU/mL Specimen Anatomical Collection Method / Collection Time Recei gil Time (Source) Location / Volume Laterality Blood Venipuncture / 10/07/2020 1:10 10/07/2020 1:10 Unknown PM REMOTE SENSING RESEARCH SCIENTIST PM REMOTE SENSING RESEARCH SCIENTIST Juan Cho MD LAB_1 Performing Organization Address [facility]/ZIP Code Phon e Number [facility] CENTRAL LAB [address] [address] Hgb (10/07/2020 1:10 PM REMOTE SENSING RESEARCH SCIENTIST) P athologist Signature Hemoglobin 13.3 12.0 - 15.5 10/07/2020 [facility] g/dL 1:13 PM REMOTE SENSING RESEARCH SCIENTIST CENTER LABORATORY Specimen Anatomical Collection Method / Collection Time Recei gil Time (Source) Location / Volume Laterality Blood Venipuncture / 10/07/2020 1:10 10/07/2020 1:10 Unknown PM REMOTE SENSING RESEARCH SCIENTIST PM REMOTE SENSING RESEARCH SCIENTIST Juan Cho MD LAB_1 Performing Organization Address City/[facility]/ZIP Code Phon e Number [facility] LABOR[facility]ORY [address] [place] [address] ALT (SGPT) (10/07/2020 1:10 PM REMOTE SENSING RESEARCH SCIENTIST) P athologist Signature ALT (SGPT) 26 0 - 55 U/L 10/07/2020 [facility] 7:06 PM REMOTE SENSING RESEARCH SCIENTIST CENTRAL LAB Specimen Anatomical Collection Method / Collection Time Recei gil Time (Source) Location / Volume Laterality Blood Venipuncture / 10/07/2020 1:10 10/07/2020 1:10 Unknown PM REMOTE SENSING RESEARCH SCIENTIST PM REMOTE SENSING RESEARCH SCIENTIST Juan Cho MD LAB_1 Performing Organization Address [facility]/ZIP [facility] Phon e Number [facility] [address] [address] documented in this encounter Visit Diagnoses Diagnosis Uncontrolled type 2 diabetes mellitus, w ith long-term current use of insulin Stage 3a chronic kidney disease ([facility]C) documented in this encounter Care Teams Package Dye Stand Loader Relationship Specialty Start Date End Date Elyse Paredes MD PCP - General Family Practice 03/19/17 [address] [place] [address] documented as of this encounter
--- OUTSIDE RECORDS SUMMARY | 2022-07-02 13:51 | XMS_ITS | Encounter Summary ---
:1950 Author Organization [facility] Address [address] [place] [address] Care Team Providers Name Role Phone Elyse Paredes MD Primary Care Provider Encounter Details Date Type Department Care Team Description 01/19/2020 Telemedicine [facility] Cancer Dinoar, [place] ant neoplasm of overlapping sites of left breast in female, estrogen receptor positive (HRC) (Primary Dx); Center at [facility] JORDAN Aldana Disturbed sleep rhythm; [address] Arthralgia, unspecified joint; [address] [place] [address] Myalgia; [place] [address] Fatigue, unspecified type [phone] (Wo rk) Social History Tobacco Use Types Packs/Day Years Used Date Smoking Tobacco: Former Cigarettes Quit : 08/02/1981 Smokeless Tobacco: Never Alcohol Use Standard Drinks/Week Comments No 0 (1 standard drink = 0.6 oz pure alcoho l) Sex Assigned at Date Recorded Not on file documented as of this encounter Patient Instructions Patient InstructionsElisa Madrid MBBS - 01/19/2020 11:20 AM CDT Dear Marci, It was a pleasure to see you. Plan: 1. Discontinue anastrozole due to severe arthralgia (joint pains) and myalgias (muscle aches). 2. Start tamoxifen 20 mg daily (prescription sent to [facility]. 3. Tamoxifen is made less effective by sertraline. Please taper and discontinue sertraline. If depression recurs, then citalopram or venlafaxine can be used as antidepressants. 4. Annual pelvic exam through Dr. Paredes's clinic to screen for tamoxifen induced endometrial cancer. 5. Continue warfarin to maintain INR between 2-3. Monitor INR more closely as tamoxifen increases the potency of warfarin, so the INR may be higher. 6. Calcium 1200 mg and vitamin D 1000 units per day through diet and supplement. 7. Healthy lifestyle: Regular moderate intensity exercise with the combination of low impact aerobicexercise, such as water aerobics or bicycle or elliptical cross horse trainer; plus muscle strengthening resistance based exercises; plus stretching, at least 30 minutes a day at least five days a week, consumption of at least five servings of fruits and vegetables everyday, gea-knf-yxnn-fiber diet, avoidance of stress,healthy sleeping habits, avoidance of excess caffeine, alcohol. Avoidance of active and passive tobacco exposure. 8. In July 2020: Bilateral screening mammograms 9. Every 6 months until January 2024: Follow-up with one of our PRINCIPAL STATISTICAL SCIENTIST/PAs. If any signs or symptoms concerning for cancer recurrence or significant therapy related complications developed, then I will see you. 10. January 2024: Follow up with me. At that time you would have completed 5 years of adjuvant endocrine therapy. Pros and cons of extending endocrine therapy will discussed. Please do not hesitate to contact us at [phone] any time. Thank you. Sincerely, JORDAN Jiang.......01/19/2020 Scheduled 6 month appt. AVS mailed. Roscoe Frazier 01/22/2020, 9:58 AM documented in this encounter Progress Notes Elisa Madrid MBBS - 01/19/2020 11:20 AM CDT Medical Oncology Note Date of Service: 01/19/2020 Cancer Summary (Printed and given to the [...] Started tamoxifen 20 mg daily. VIDEO VISIT (This visit was converted to a video visit with patient's explicit consent to minimize patient's exposure to SARS-CoV-2 virus during the COVID- pandemic. The patient was in the privacy of patient's home and I was we were in a private room at [facility] for this visit). Interval History; Marci she is compliant with taking anastrozole, calcium and vitamin-D as prescribed. She has been experiencing progressively worsening arthralgias, myalgias and disturbed sleep despite using nocturnal positive-pressure ventilation for obstructive sleep apnea. She has mild-moderate fatigue. These symptoms temporarily correlate with initiation of anastrozole. She denies any palpable lumps on self-exam, headaches, long bone pain, back pain, cough, shortness of breath, abdominal pain, distention, jaundice, other symptoms suspicious of cancer recurrence. She is tapering down sertraline, which was started for depression, as the depression has improved. At present she is taking sertraline 50 mg daily (50% of the initial dose). She denies any worsening ofthe depression since decreasing dose of sertraline. Review of Systems: Detailed 12 point ROS was performed and was positive only for the symptoms mentioned above. ECOG performance status: 0. Past Medical History, Allergies, Current Medications linked to today's encounter were reviewed in EPIC and confirmed with the patient. Physical exam: General: Comfortable in no physical or emotional distress HEENT exams reveal no significant scleral icterus or conjunctival pallor. Neck is supple with complete active range of motion. Lymphatic: No visible cervical or supraclavicular lymphadenopathy. Abdomen: Abdomen is not distended. During this video visit I requested the patient to push on the abdomen. The abdomen appears soft and nontender. No reported palpable intra-abdominal masses, although self palpation of the abdomen by the patient is inherently suboptimal. Extremities: I had the patient direct the camera to the extremities. There is no edema/ clubbing/ cyanosis. Neurologic: Alert, oriented x3. Speech and cognition are intact. Moves all 4 limbs. Skin: Visualized skin has no significant rashes, ecchymosis, petechiae. Psychiatric: Mood and affect are normal. Decision-making capacity is intact. Data reviewed during this visit: Bilateral screening mammograms from July 2019 showed benign findings. On November 01 and November 06 respectively she underwent left diagnostic mammogram and ultrasoundfor palpable area of concern, which showed heterogenous mass with solid and cystic components at thesurgical site measuring 2.6 x 1.9 x 1.4 cm, thought to represent postsurgical change and fat necrosis. Bilateral screening mammograms are recommended in July 2020. Assessment: A 69 y.o. lady with postmenopausal stage I, hormone receptor positive, HER-2/sally negative breast cancer, low Oncotype DX recurrence [...] of cancer recurrence or interval development of newprimary breast cancer. She is receiving adjuvant anastrozole, complicated by severe arthralgias, myalgias, disturbed sleep,fatigue, all of which are severely impairing her quality of life. Most of these symptoms temporarilycorrelate with initiation of anastrozole and progressively worsened. Treatment options of switching to another aromatase inhibitor such as exemestane which is steroidal and may not cause the same degree of similar toxicities or to a selective estrogen receptor modulator-tamoxifen were discussed. Tamoxifen is slightly inferior to aromatase inhibitors in terms of decreasing the risk of recurrence of breast cancer, however, given low Oncotype DX recurrence score of 10, low clinical stage, the risk of recurrence of her cancer is low and the incremental benefit of an aromatase inhibitor over tamoxifen is marginal in her case. Tamoxifen increases the risk of venous thromboembolism, however, she therapeutically anticoagulated.Tamoxifen can potentiate in the effect of warfarin and increased INR, hence INR needs to be monitored closely to adjust the dose of warfarin. Tamoxifen is converted to its active metabolite endoxifen by CYP2D6, which is inhibited by sertraline. She is currently receiving sertraline 50 mg daily and has tapered the dose down from 100 mg several weeks ago as her depression is under good control. She wishes to discontinue sertraline. Tapering doses of sertraline have been prescribed. If her depression worsens during or after the taper, then citalopram or venlafaxine may be used as antidepressants as they do not inhibit CYP2D6. Tamoxifen slightly increases the risk of endometrial cancer. After 5 and 10 years of use of tamoxifen the risk of endometrial cancer at 15 years is estimated to be approximately 1.7% and 3.5% based on data from the ATLAS and aTTOM clinical trials. Annual screening pelvic examination is recommended. Ifshe develops intermenstrual bleeding, then pelvic ultrasound would be recommended. Counseling: I had a very long discussion with the patient and explain all of the above in lay language. She is very intelligent, verbalized clear understanding of the discussion, asked appropriate questions, which have been answered to her apparent satisfaction. She is in agreement with the following management plan. Plan: 1. Discontinue anastrozole due to severe arthralgia (joint pains) and myalgias (muscle aches). 2. Start tamoxifen 20 mg daily (prescription sent to [facility]. 3. Tamoxifen is made less effective by sertraline. Please taper and discontinue sertraline. If depression recurs, then citalopram or venlafaxine can be used as antidepressants. 4. Annual pelvic exam through Dr. Paredes's clinic to screen for tamoxifen induced endometrial cancer. 5. Continue warfarin to maintain INR between 2-3. Monitor INR more closely as tamoxifen increases the potency of warfarin, so the INR may be higher. 6. Annual pelvic exam through Dr. Paredes's clinic to screen for tamoxifen induced endometrial cancer. 7. Calcium 1200 mg and vitamin D 1000 units per day through diet and supplement. 8. Healthy lifestyle: Regular moderate intensity exercise with the combination of low impact aerobicexercise, such as water aerobics or bicycle or elliptical cross horse trainer; plus muscle strengthening resistance based exercises; plus stretching, at least 30 minutes a day at least five days a week, consumption of at least five servings of fruits and vegetables everyday, msa-ofl-dilo-fiber diet, avoidance of stress,healthy sleeping habits, avoidance of excess caffeine, alcohol. Avoidance of active and passive tobacco exposure. 9. In July 2020: Bilateral screening mammograms 10. Every 6 months until January 2024: Follow-up with one of our PRINCIPAL STATISTICAL SCIENTIST/PAs. If any signs or symptoms concerning for cancer recurrence or significant therapy related complications developed, then I will see her. 11. January 2024: Follow up with me. At that time she would have completed 5 years of adjuvant endocrine therapy. Pros and cons of extending endocrine therapy will discussed. JORDAN Jiang Lilly Kim RN - 01/19/2020 11:20 AM CDT Completed per physician's orders. Lilly Kim RN 10:03 AM 01/23/2020 Elisa Madrid MBBS - 01/19/2020 12:00 AM CDT The contents of this note have been consolidated with another note from this visit. Elisa Madrid MD documented in this encounter Plan of Treatment Upcoming Encounters Date Type Specialty Care Team Description 08/13/2022 Appointment Radiology Denise Aguirre APRN, HAZMAT CDL A DRIVER [address] [place], [place] [address] (Wo rk) 08/13/2022 Appointment Hematology and Oncology Denise Aguirre APRN, HAZMAT CDL A DRIVER [address] [place], [place] [address] (Wo rk) documented as [...] female, estrogen receptor positive (HRC) - Primary Disturbed sleep rhythm Disruptions of 24 hour sleep wake cycle, unspecified Arthralgia, unspecified joint Myalgia Mylagia and myositis, unspecified Fatigue, unspecified type documented in this encounter Care Teams Tractor Trailer Mechanic Relationship Specialty Start Date End Date Elyse Paredes MD PCP - General Family Practice 03/19/17 [address] [place] [address] documented as of this encounter
--- OUTSIDE RECORDS SUMMARY | 2022-07-02 13:51 | XMS_ITS | Encounter Summary ---
:1950 Author Organization [employer] Address [address] [place] [address] Care Team Providers Name Role Phone Elyse Paredes MD Primary Care Provider Reason for Visit Reason Comments FOLLOW-UP,DIABETES Encounter Details Date Type Department Care Team Description 02/19/2020 Telemedicine [facility] [address], Dyslipidemia, goal LDL below 100 (Primary Dx); Endocrinology Clinic Obesity, morbid, BMI 50 or higher (HRC); [address] Malignant neoplasm of left breast in fem grey, estrogen receptor positive, unspecified site of breast (HRC); [place] [address] [place], [place] Obesity, unspecified obesity severity, unspecified obesity type; [phone] [id number] Essential hypertension; [phone] Coronary artery disease involving dot lake coronary artery of dot lake heart without angina pectoris (Work) Social History Tobacco Use Types Packs/Day Years Used Date Smoking Tobacco: Former Cigarettes Quit : 08/02/1981 Smokeless Tobacco: Never Alcohol Use Standard Drinks/Week Comments No 0 (1 standard drink = 0.6 oz pure alcoho l) Sex Assigned at Date Recorded Not on file documented as of this encounter Progress Notes Herlinda Cook LPN - 02/19/2020 1:00 PM CDT Images from the original note were not included. Juan Cho MD - 02/19/2020 1:00 PM CDT ENDOCRINOLOGY VIDEO RETURN NOTE 02/19/2020 Marci Cruzkev 69 y.o. HPI: The patient returns for management of type 2 diabetes ROS: [...] patient is currently checking her blood sugars four 6 times a day. ??The patient is currently injecting insulin 6 to 7 times a day. ??The patient's insulin treatment regimen requires frequent adjustments based on blood sugars and C GMS device results. ?? #2. ??Hypertension. ??The patient may continue metoprolol, Lopressor and [place] ?? #3. ??Cholesterol. ??The patient may continue Crestor 20 mg once a day. ?? #4. Obesity. ??The patient has lost 6-7 lbs since her last visit. ??The weight loss most likely result of intermittent fasting and ozempic. ?? #5. ??Type 2 diabetes controlled with coronary artery disease aortic valve replacement in chronic renal insufficiency .?the patient's blood sugars have improved dramatically with weight loss and the dexcom CGMS. ??The patient's most recent A1c is 7.3. ??The previous A1c was 8.3. ?a review of the records revealed the patient's kidney function 2017 was greater than 60 however is worsened ill toapproximately 40 to. The exact cause is not clear the patient [...] per each 50 points the base 150 and 2 units per each 50 points with a base of 200 before bed and ozempic 1 mg weekly. ?? Use up truclicity then start ozempic ? Will start ozempic(make sure they give you 0.25/0.5 mg pen rather than the 1 mg pen. ?? 0.25 mg sc once weekly for 4 weeks, then 0.5 mg sc for four weeks, if tolerated increase to 1mg weekly in 1 month. ?? Video tutorial on how to use ozempic. ?? [email or web address]/how-to-use/iwk-aaapgkx-yse.html ? Main side effect nausea and vomiting. If individuals can tolerate the medication for the first 4 weeks in almost all case the nausea goes away in individuals continue to lose weight and have excellent blood sugar control. Medication also decreases cardiovascular risk associated with diabetes. ? If blood sugars in am are less then 130 then decrease basaglar by 5 units a day ?? If blood sugars drop after meals then decrease huamlog base with meals ?? RETURN IN 4-6 MONTHS PRIOR TO RETURN OBTAIN LABS, non fasting labs 2 weeks prior to return visit. ? Video visit Clinician location: [facility] endocrinology office [facility] location Patient location: home Total visit time 30 [...] Team Description 08/13/2022 Appointment Radiology Denise Aguirre, TABLEAU DEVELOPER, FINANCIAL SERVICES OFFICER [address] [place], [place] [address] (Wo delta) 08/13/2022 Appointment Hematology and Oncology Denise Aguirre APRN, FINANCIAL SERVICES OFFICER [address] [place], [place] [address] (Wo rk) documented as [...] bedtime. documented as of this encounter Results TSH (08/06/2020 2:01 PM SUPERVISOR IND[employer] EDUCATION) [facility] Massive Method Time Signature TSH, Sensitive 3.04 0.30 - 08/06/2020 Lumense 4.50 5:21 PM SUPERVISOR [employer]UCATION CENTRAL LAB uIU/mL Specimen Anatomical Collection Method / Collection Time Recei gil Time (Source) Location / Volume Laterality Blood Venipuncture / 08/06/2020 2:01 08/06/2020 2:01 Unknown PM SUPER[employer]UCATION PM SUPERVISOR [employer] EDUCATION Juan Cho MD LAB_1 Performing Organization Address City/State/ZIP Code Phon e Number [facility] [address] [address] Microalb / Creat Ratio (08/06/2020 2:01 PM SUPERVISOR [employer]S EDUCATION) [facility] Massive Method Time Signature Albumin, 19.2 mg/L 08/06/2020 [facility] Urine, Random 6:45 PM SUPER[employer]UC[employer] CEN[facility]AL LAB Creatinine, 189 >20 mg/dL 08/06/2020 [facility] Urine, Random 6:45 PM SUPERVIS[employer]UCATION CEN[facility]AL LAB Albumin/Creati 10 <30 mg/g 08/06/2020 [facility] nine Ratio, 6:45 PM SUPERVIS[employer]UC[employer] CENTRAL LAB Urine, Random Specimen Anatomical Collection Method Collection Time Receive d Time (Source) Location / / Volume Laterality Urine Non-blood 08/06/2020 2:01 PM 2:01 Collection / SUPER[employer]UCATION PM SUPERVISOR [employer] EDUCATION Unknown Juan Cho MD LAB_1 Performing Organization Address [facility]/ZIP Code Phon e Number [facility] CENTRAL LAB [address] [address] ALT (SGPT) (08/06/2020 2:01 PM SUPERVISOR [employer] EDUCATION) athologist Signature ALT (SGPT) 27 0 - 55 U/L 08/06/2020 [facility] 5:27 PM SUPERVISOR [employer]UCATION CENTRAL LAB Specimen Anatomical Collection Method / Collection Time Recei gil Time (Source) Location / Volume Laterality Blood Venipuncture / 08/06/2020 2:01 08/06/2020 2:01 Unknown PM SUPERVISOR [employer] EDUCATION PM SUPERVISOR [employer] EDUCATION Juan Cho MD LAB_1 Performing Organization Address [facility] Phon e Number [facility] CENTRAL LAB [address] [address] Hgb (08/06/2020 2:01 PM SUPERVISOR [employer] EDUCATION) athologist Signature Hemoglobin 13.7 12.0 - 15.5 08/06/2020 [facility] g/dL 2:14 PM SUPERVISOR INDUSTRI[employer]S EDUCATION [facility] Specimen Anatomical Collection Method / Collection Time Recei gil Time (Source) Location / Volume Laterality Blood Venipuncture / 08/06/2020 2:01 08/06/2020 2:01 Unknown PM SUPERVISOR [employer]S EDUCATION PM SUPERVISOR [employer]S EDUCATION Juan Cho MD LAB_1 Performing Organization Address City/[facility]/ZIP Code Phon e Number [facility] [address] [place] [address] (ABNORMAL) [id number] (08/06/2020 2:01 PM SUPERVISOR INDUST[employer]S EDUCATION) [facility] Method Time Signature Hemoglobin A1C 8.2 (H) <=5.6 % 08/06/2020 [facility] 7:02 PM SUPERVIS[employer]UCATION CENTRAL LAB Specimen Anatomical Collection Method / Collection Time Recei gil Time (Source) Location / Volume Laterality Blood Venipuncture / 08/06/2020 2:01 08/06/2020 2:01 Unknown PM SUPERVISOR [employer] EDUCATION PM SUPERVISOR IND[employer]AL [employer]S EDUCATION Narrative [facility] C[facility]AL [facility] - 08/06/2020 7:02 PM SUPERVISOR [employer]S EDUCATION For patients not previously diagnosed with diabetes: 5.7-6.4%: Increased risk for diabetes 6.5% and greater: Diagnostic for diabete s For patients diagnosed with diabetes: <8.0%: Goal of therapy for ages 18-75 Clinicians may recommend a higher or low er goal for specific individuals. Juan Cho MD LAB_1 Performing Organization Address City/[facility]/ZIP [facility] Phon e Number [facility] CENTRAL LAB [address] [address] LDL Direct (08/06/2020 2:01 PM SUPERVISOR [employer] EDUCATION) athologist Signature LDL, Direct 82 <=130 08/06/2020 [facility] mg/dL 5:27 PM SUPERVISOR [employer]S EDUCATION CENTRAL LAB Specimen Anatomical Collection Method / Collection Time Recei gil Time (Source) Location / Volume Laterality Blood Venipuncture / 08/06/2020 2:01 08/06/2020 2:01 Unknown PM SUPERVISOR INDUSTRI[employer]S EDUCATION PM SUPERVISOR [employer] EDUCATION Juan Cho MD LAB_1 Performing Organization Address City/[facility] Phon e Number [facility] [address] [address] documented in this encounter Visit Diagnoses Diagnosis Dyslipidemia, goal LDL below 100 (HRC) - Primary Other and unspecified hyperlipidemia Obesity, morbid, BMI 50 or higher (HRC) Malignant neoplasm of left breast in fem grey, estrogen receptor positive, unspecified site of breast (HRC) Obesity, unspecified obesity severity, u nspecified obesity type (HRC) Essential hypertension (HRC) Unspecified essential hypertension Coronary artery disease involving dot [place] coronary artery of dot lake heart without angina pectoris (HRC) documented in this encounter Care Teams Mechanical Planner Relationship Specialty Start Date End Date Elyse Paredes MD PCP - General Family Practice 03/19/17 [address] [place] [address] documented as of this encounter
--- OUTSIDE RECORDS SUMMARY | 2022-07-02 13:52 | XMS_ITS | Encounter Summary ---
:1950 Author Organization [employer] Address [address] [place] [address] Care Team Providers Name Role Phone Elyse Paredes MD Primary Care Provider Encounter Details Date Type Department Care Team Description 08/03/2019 Refill Order Specialty Center [address], Endocrinology Clinic LOSS CONTROL TECHNICIAN, DNP [address] [place] [address] [place] [address] [phone] (Wo rk) Social History Tobacco Use Types [...] Description 08/13/2022 Appointment Radiology Denise Aguirre APRN, FIELD MAP TECHNICIAN [address] [place], [place] [address] (Wo rk) 08/13/2022 Appointment Hematology and Oncology Denise Aguirre APRN, FIELD MAP TECHNICIAN [address] [place], [place] [address] (Wo rk) documented as [...] medications documented in this encounter Care Teams Strategic Analyst Relationship Specialty Start Date End Date Elyse Paredes MD PCP - General Family Practice 03/19/17 [address] [place] [address] documented as of this encounter
--- OUTSIDE RECORDS SUMMARY | 2022-07-02 13:52 | XMS_ITS | Encounter Summary ---
:1950 Author Organization [facility] Address [address] [place] [address] Care Team Providers Name Role Phone Elyse Paredes MD Primary Care Provider Reason for Visit Reason Comments COVID Screening Encounter Details Date Type Department Care Team Description 12/06/2019 Telephone Specialty Center 401 Prasanna Rivera MD COVID Screening Nephrology 205 [facility] [address] [place] [address] [place] [address] [phone] Social History Tobacco Use Types Packs/Day Years Used Date Smoking Tobacco: Former Cigarettes Quit : 08/02/1981 Smokeless Tobacco: Never Alcohol Use Standard Drinks/Week Comments No 0 (1 standard drink = 0.6 oz pure alcoho l) Sex Assigned at Date Recorded Not on file documented as of this encounter Nursing Notes Yvrose Allred - 12/06/2019 3:53 PM CDT Initial Screening: Patient information Best number to contact patient: [phone] Reason for Visit: Other: LAB In the last 14 days have you had close contact with a person known to have COVID-19 or been instructed to self-isolate? No Are symptoms urgent/emergent? No Do you have any of these symptoms (fever greater than 100, cough, shortness of breath or difficulty breathing, sore throat, new loss of smell, or new loss of taste)?No - close encounter and follow regular process documented in this encounter Plan of Treatment Upcoming Encounters Date Type Specialty Care Team Description 08/13/2022 Appointment Radiology Denise Aguirre, SALES STOCK ASSOCIATE, OFFICE CLIN ASST [address] [place], [place] [address] (Wo rk) 08/13/2022 Appointment Hematology and Oncology Denise Aguirre, SALES STOCK ASSOCIATE, OFFICE CLIN ASST [address] [place], [place] [address] (Wo rk) documented as of this encounter Goals Goal Patient Goal Associated Recent Patient-Stated? Author Type Problems Progress Being active Diabetes Diabetes No Tere, Education Education Tanner gN, RD, CDE Note: Formatting of this note [...] filedocumented in this encounter Care Teams Supervisor Inspection And Testing Relationship Specialty Start Date End Date Elyse Paredes MD PCP - General Family Practice 03/19/17 [address] [place] [address] documented as of this encounter
--- OUTSIDE RECORDS SUMMARY | 2022-07-02 13:52 | XMS_ITS | Encounter Summary ---
:1950 Author Organization [facility] Address [address] [place] [address] Care Team Providers Name Role Phone Elyse Paredes MD Primary Care Provider Encounter Details Date Type Department Care Team Description 10/04/2019 Orders Only External to Elyse Paredes MD [address] [place], [place] [address] (Wo rk) Social History Tobacco Use Types [...] Team Description 08/13/2022 Appointment Radiology Denise Aguirre, SOCIETY EDITOR, HYDROSTATIC TESTER [address] [place], [place] [address] (Wo rk) 08/13/2022 Appointment Hematology and Oncology Denise Aguirre APRN, HYDROSTATIC TESTER [address] [place], [place] [address] (Wo rk) documented as of this encounter Goals Goal Patient Goal Associated Recent Patient-Stated? Author Type Problems Progress Being active Diabetes Diabetes No Casteleyn, Education Education Tanner Ng RD, CDE Note: [...] Name Priority Date/Time Associated Diagnosis Comme nts SCANNED LAB 10/04/2019 12:00 AM Results for this COMPUTER SYSTEMS HARDWARE ANALYST procedure are i n the results section . documented in this encounter Results SCANNED LAB (10/04/2019 12:00 AM COMPUTER SYSTEMS HARDWARE ANALYST) Specimen (Source) Anatomical Location Collection Method / Collectio n Time Received Time / Laterality Volume 10/04/2019 Narrative This result has an attachment that is no t available. Elyse Paredes MD LAB_1 documented in this encounter Visit Diagnoses Not on filedocumented in this encounter Care Teams Roller Relationship Specialty Start Date End Date Elyse Paredes MD PCP - General Family Practice 03/19/17 [address] [place] [address] documented as of this encounter
--- OUTSIDE RECORDS SUMMARY | 2022-07-02 13:52 | XMS_ITS | Encounter Summary ---
:1950 Author Organization [facility] Address [address] [place] [address] Care Team Providers Name Role Phone Elyse Paredes MD Primary Care Provider Encounter Details Date Type Department Care Team Description 10/04/2019 Orders Only External to Elyse Paredes MD [address] [place], [place] [address] (Wo rk) Social History [...] Team Description 08/13/2022 Appointment Radiology Denise Aguirre, COIL STRAPPER, MAT REPAIRER [address] [place], [place] [address] (Wo rk) 08/13/2022 Appointment Hematology and Oncology Denise Aguirre APRN, MAT REPAIRER [address] [place], [place] [address] (Wo rk) documented as [...] LAB 10/04/2019 12:00 AM Results for this DEBURRING TECHNICIAN procedure are i n the results section . documented in this encounter Results SCANNED LAB (10/04/2019 12:00 AM DEBURRING TECHNICIAN) Specimen (Source) Anatomical Location Collection Method / Collectio n Time Received Time / Laterality Volume 10/04/2019 Narrative This result has an attachment that is no t available. Elyse Paredes MD LAB_1 documented in this encounter Visit Diagnoses Not on filedocumented in this encounter Care Teams Director Of Technology Relationship Specialty Start Date End Date Elyse Paredes MD PCP - General Family Practice 03/19/17 [address] [place] [address] documented as of this encounter
--- OUTSIDE RECORDS SUMMARY | 2022-07-02 13:52 | XMS_ITS | Encounter Summary ---
:1950 Author Organization [facility] Address [address] [place] [address] Care Team Providers Name Role Phone Elyse Paredes MD Primary Care Provider Reason for Visit Reason Onset Date Comments Refill 11/14/2019 BD PEN NEEDLE 31G X 5MM Encounter Details Date Type Department Care Team Description 11/14/2019 Refill Specialty Center 401 Juan Zaragoza, Refill (BD PEN NEEDLE Endocrinology Clinic 31G X 5MM) [address] [place] [address] [place], [place] [phone] (Wo rk) Social History Tobacco Use Types Packs/Day Years Used Date Smoking Tobacco: Former Cigarettes Quit : 08/02/1981 Smokeless Tobacco: Never Alcohol Use Standard Drinks/Week Comments No 0 (1 standard drink = 0.6 oz pure alcoho l) Sex Assigned at Date Recorded Not on file documented as of this encounter Nursing Notes Claudia Cervantes RN - 11/14/2019 9:48 AM CDT Completed per physician's orders. Claudia Cervantes RN 9:48 AM 11/14/2019 Interface, Out Surescripts Prov Query - 11/14/2019 8:18 AM CDT B-D UF III MINI PEN NEEDLES 31G X 5 MM needle Endocrinology: Diabetes Non-DME Supplies -> Unable to determine if patient is due for a renewal, please review. -> Refill x 12 months (maximum allowed) -> Calculate the quantity and number of refills manually. Last qualifying visit: 10/06/2019 (in Endocrinology with JUAN ZARAGOZA) Next scheduled visit: 02/19/2020 (in Endocrinology with JUAN ZARAGOZA) Last ordered by JUAN ZARAGOZA: 05/09/2019 (189 days ago) QTY: 100, Refills: 5, Si-5 times daily. (unchanged) Powered by [employer], Reference: [id number], 11/14/2019 8:18:34 AM CDT, Pool: ENDO REFILL PAYTON ([id number]) Yareli Rogers - 11/14/2019 8:16 AM CDT Last refilled: 05/09/2019 Dispense amount of last refill: 100 documented in this encounter Plan of Treatment Upcoming Encounters Date Type Specialty Care Team Description 08/13/2022 Appointment Radiology Denise Aguirre, BRUSH HOLDER INSPECTOR, DIVIDER OPERATOR [address] [place], [place] [address] (Wo rk) 08/13/2022 Appointment Hematology and Oncology Denise Aguirre APRN, DIVIDER OPERATOR [address] [place], [place] [address] (Wo rk) documented as [...] long-term current use of insulin - Primary documented in this encounter Care Teams Transport Medic Relationship Specialty Start Date End Date Elyse Paredes MD PCP - General Family Practice 03/19/17 [address] [place] [address] documented as of this encounter
--- OUTSIDE RECORDS SUMMARY | 2022-07-02 13:52 | XMS_ITS | Encounter Summary ---
:1950 Author Organization [employer] Address [address] [place] [address] Care Team Providers Name Role Phone Elyse Paredes MD Primary Care Provider Encounter Details Date Type Department Care Team Description 12/12/2019 Notes/Orders Specialty Center Elyse Paredes MD Paroxysmal atrial Laboratory [address] fibrillation (HRC) [address] [place], [place] (Primary Dx) [place] [phone] Social History Tobacco Use Types Packs/Day Years [...] Team Description 08/13/2022 Appointment Radiology Denise Aguirre, CERTIFIED NURSES' AIDE, OPERATIONS AND MAINTENANCE TECHNICIAN [address] [place], [place] [address] (Wo rk) 08/13/2022 Appointment Hematology and Oncology Denise Aguirre APRN, OPERATIONS AND MAINTENANCE TECHNICIAN [address] [place], [place] [address] (Wo rk) documented as of this encounter Goals Goal Patient Goal Associated Recent Patient-Stated? Author Type Problems Progress Being active Diabetes Diabetes No Castkaden, Education Education Tanner Ng, RD, CDE Note: [...] documented as of this encounter Results (ABNORMAL) INR/Protime (12/21/2019 12:30 PM CDT) athologist Signature Protime 20.3 (H) 11.8 - 14.6 12/21/2019 SPECIALTY Seconds 2:17 PM CDT [facility] INR 1.8 (H) 0.9 - 1.1 12/21/2019 SPECIALTY 2:17 PM CDT [facility] Specimen Anatomical Collection Method / Collection Time Recei gil Time (Source) Location / Volume Laterality Blood Venipuncture / 12/21/2019 12:30 0 Unknown PM CDT 12:30 PM CDT Narrative [facility] - 020 2:17 PM CDT Therapeutic range determined by protocol established by anticoagulation provider. Elyse Paredes MD LAB_1 Performing Organization Address City/State/ZIP Code Phon e Number [facility] [address] [address] documented in this encounter Visit Diagnoses Diagnosis Paroxysmal atrial fibrillation (HRC) - P rimary Atrial fibrillation documented in this encounter Care Teams Production Assembly Supervisor Relationship Specialty Start Date End Date Elyse Paredes MD PCP - General Family Practice 03/19/17 [address] [place] [address] documented as of this encounter
--- OUTSIDE RECORDS SUMMARY | 2022-07-02 13:52 | XMS_ITS | Encounter Summary ---
:1950 Author Organization [facility] Address [address] [place] [address] Care Team Providers Name Role Phone Elyse Paredes MD Primary Care Provider Encounter Details Date Type Department Care Team Description 07/21/2019 Office Visit [facility] Cancer Rubén, Malign ant neoplasm of overlapping sites of left breast in female, estrogen receptor positive (HRC) (Primary Dx); [facility] at [facility] Cathleen John PA-C Fatigue, unspecified type; [address] Arthralgia, unspecified joint [address] [place] [address] [phone] Social History Tobacco Use Types Packs/Day Years Used Date Smoking Tobacco: Former Cigarettes Quit : 08/02/1981 Smokeless Tobacco: Never Alcohol Use Standard Drinks/Week Comments No 0 (1 standard drink = 0.6 oz pure alcoho l) Sex Assigned at Date Recorded Not on file documented as of this encounter Last Filed Vital Signs Vital Sign Reading Time Taken Comments Blood Pressure 143/81 07/21/2019 2:56 PM POWER PLANT OPERATOR Pulse 88 07/21/2019 2:56 PM POWER PLANT OPERATOR Temperature 36.5 ??C (97.7 ??F) 07/21/2019 2:56 PM POWER PLANT OPERATOR Respiratory Rate - - Oxygen Saturation - - Inhaled Oxygen Concentration - - Weight 129.3 kg (285 lb) 07/21/2019 2:56 PM POWER PLANT OPERATOR Height - - Body Mass Index 52.13 09/16/2018 11:15 AM POWER PLANT OPERATOR documented in this encounter Patient Instructions Patient InstructionsCathleen Yeboah PA-C - 07/21/2019 3:00 PM CST Marci Diaz, It was a pleasure to see you today! Your treatment plan is as follows: Arimidex 1 mg daily Return to the clinic in [address] Madrid. Call with any questions or concerns. The clinic phone number is [phone]. After hours, please call the nurse care line at [phone]. All the Cathleen ha PA-C Appointment made and AVS given HAKEEM Askew 07/21/2019, 3:30 PM R PLANT OPERATOR documented in this encounter Progress Notes Cathleen Yeboah PA-C - 07/21/2019 3:00 PM CST [facility] Oncology/Hematology Follow up Visit Note Date: 07/21/2019 Diagnosis, Stage, Prognostic Factors: ?? Invasive ductal [...] without any incremental benefit of adjuvant chemotherapy. ?? Intent of Therapy: Curative (explained to the patient on 09/30/2018). Guidelines used for treatment: National Comprehensive Cancer Network (NCCN). ?? Treatment: 09/16/2018: Left partial mastectomy and sentinel lymph node sampling. 11/18/2018 to 12/02/2018: Adjuvant breast radiation. ?? Radiation Therapy Treatment Summary 12/02/2018 Site of Radiation ??Left Breast Modality 3D Energy 10X Number of [...] the risk of distant recurrence of her br east cancer, she decided to starting adjuvant endocrine therapy at least for a couple of months. 02/10/2019: started anastrozole 1 mg daily Primary Oncologist: Dr. Madrid Interval History: Marci Diaz is a 69 y.o. old female who presents to the clinic today for a followup visit. Patient reports she is doing OK. She started taking the anastrozole a few months ago and has tolerated it relatively well. She reports she didn't notice symptoms right away but in May she had some increased joint pain. In June she was very fatigued and had very bad muscle and joint aches for aweek. She doesn't know if it was related to anastrozole or not. It has since resolved and she just has very mild fatigue and mild joint aches and pains. She denies any new breast masses/lumps. Denies night sweats, fevers, chills, and unintentional weight loss. No new lymphadenopathy. No additional questions or concerns. ROS: 10 point ROS completed. Negative except for those documented above. ECOG PS: 0 Medications: Current Outpatient Medications Medication Sig Note Dispense Refill ??? ACCU-CHEK GERALD PLUS test strip Check fasting / before meals, and at bedtime, . Pharmacy dispense brand based on insurance. 350 Strip 6 ??? amoxicillin (AMOXIL) 500 MG capsule Take 500 mg by mouth. ??? anastrozole (ARIMIDEX) 1 MG tablet Take 1 Tablet by mouth daily. 90 Tablet 3 ??? aspirin, enteric-coated 81 MG enteric coated tablet Take 1 Tab by mouth daily. 90 Tab 3 ??? B-D UF III MINI PEN NEEDLES 31G X 5 MM needle 4-5 times daily. 100 Each 5 ??? celecoxib (CELEBREX) 200 MG capsule 1 Cap daily. 90 Cap 1 ??? chlorthalidone (HYGROTON) 25 MG tablet Take 1 Tablet by mouth daily. 30 Tablet 11 ??? Continuous Blood Gluc Supervising Editor News Reel (DEXCOM G6 DIRECTOR DATA PROCESSING) [facility] Use as directed for continuous glucose monitoring. 1 Device 0 ??? Continuous Blood Gluc Sensor (DEXCOM G6 SENSOR) [facility] Use as directed for continuous glucose monitoring. Change sensor every 10 days. 1 Each 13 ??? Continuous Blood Gluc Transmit (DEXCOM G6 TRANSMITTER) [facility] Use as directed for continuous glucose monitoring. Change every 3 months. 1 Each 4 ??? dulaglutide (TRULICITY) 1.5 MG/0.5ML injeciton pen Inject 0.5 mL subcutaneously once every week.6 mL 3 ??? famotidine (PEPCID) 10 MG tablet Take 10 mg by mouth. 03/19/2017: [facility] Re[facility] Sig: Take 10 mg by mouth 2 times daily. ??? insulin glargine (BASAGLAR) 100 UNIT/ML KWIKPEN 60 units in AM ( give in 2 separate injections of 30 units at the same time) 30 mL 11 ??? insulin lispro (HUMALOG) 100 UNIT/ML injection vial Use 10 units as a base with meals, plus sliding scale. Max dose 70 units daily 30 mL 11 ??? losartan (COZAAR) 50 MG tablet 03/19/2017: Received from: External Pharmacy ??? metoprolol succinate (TOPROL XL) 25 MG 24 hour release tablet Take 1 Tablet by mouth daily. 90 Tablet 3 ??? rosuvastatin (CRESTOR) 10 MG tablet Take 1 Tab by mouth daily. 90 Tab 3 ??? sertraline (ZOLOFT) 100 MG tablet Take 1/2 tab daily 03/19/2017: Received from: [facility] ??? warfarin (COUMADIN) 2.5 MG tablet TAKE 1 TABLET BY MOUTH EVERY DAY No current facility-administered medications for this visit. Past Medical and Social History was reviewed. Labs/Imaging: Reviewed today in clinic with patient; please see EMR for full details Exam: BP (!) 143/81 Pulse 88 Temp 97.7 ??F (36.5 ??C) (Temporal Artery) Wt 285 lb (129.3 kg) BMI 52.13 kg/m?? General: alert, oriented x3, cooperative, well nourished, in no acute distress Head: atraumatic Eyes: corneas clear, anicterus and conjunctivae clear Mouth/Throat: mucosa pink and moist, no mucositis or thrush Neck: no tenderness and no adenopathy Right Breast: normal appearance; nipple everted and no discharged noted; no palpable masses or areasof palpable tenderness Left Breast: well healed surgical scar; nipple everted and no discharged noted; no palpable masses or areas of palpable tenderness Chest/Pulmonary: chest clear to auscultation with equal lung sounds bilaterally, no tachypnea Cardiovascular: regular rate and rhythm, no murmur Abdomen: soft, non-tender, no guarding, no rebound tenderness, no palpable masses, no HSM and bowel sounds normal Musculoskeletal/Extremities: no cyanosis, clubbing or edema Lymphatics: no cervical, occipital or supraclavicular LAD, no axillary LAD Skin: no rashes, no diaphoresis and skin color appropriate Neuro: speech clear, no focal deficits Psychiatric: affect/mood normal, normal judgement/insight and memory intact QOPI Data: See EMR Distress Tool information: See EMR Assessment: 1. Postmenopausal stage I, hormone receptor positive, HER-2/sally negative breast cancer, low OncotypeDX recurrence score of 10 with estimated 10 year risk of distant recurrence of 3 percent with adjuvant endocrine therapy, status post partial mastectomy and sentinel lymph node sampling with microscopically negative margins, followed by adjuvant breast irradiation, complicated by moderate radiation dermatitis. She is here for a 6 month follow up visit. She is currently on anastrozole 1 mg daily. Overall, she is doing well. She is tolerating the medication without major side effects. She has some mild joint aches and mild fatigue. There are no signs or symptoms through history or physical exam concerning fordisease recurrence. No additional questions or concerns. Mammogram was done prior to our visit and it was unremarkable. She will continue anastrozole 1 mg daily. She will return in 6 months for a follow up visit. 2. Arthralgias. See #1. 3. Fatigue. See #1. Plan: Your treatment plan is as follows: Arimidex 1 mg daily Return to the clinic in [address] Madrid. COUNSELING: All of the above was explained to the patient in lay language. The patient has verbalized a clear understanding of the discussion, asked appropriate questions, which have been answered to the patient's apparent satisfaction. The patient is in complete agreement with the plan outlined in thi s note. Cathleen Yeboah PA-C 07/21/2019, 3:27 PM R PLANT OPERATOR Ashlee Romero RN - 07/21/2019 3:00 PM CST Completed per physician's orders. Ashlee Romero RN 3:41 PM 07/21/2019 R PLANT OPERATOR documented in this encounter Plan of Treatment Upcoming Encounters Date Type Specialty Care Team Description 08/13/2022 Appointment Radiology Denise Aguirre, SUPERVISORY HISTORIAN, CHIEF ARCHITECT [address] [place], [place] [address] (Wo rk) 08/13/2022 Appointment Hematology and Oncology Denise Aguirre APRN, CHIEF ARCHITECT [address] [place], [place] [address] (Wo rk) documented as [...] female, estrogen receptor positive (HRC) - Primary Fatigue, unspecified type Arthralgia, unspecified joint documented in this encounter Care Teams President/Gm Production & Live Experiences Relationship Specialty Start Date End Date Elyse Paredes MD PCP - General Family Practice 03/19/17 [address] [place], [place] [id number] documented as of this encounter
--- OUTSIDE RECORDS SUMMARY | 2022-07-02 13:52 | XMS_ITS | Encounter Summary ---
:1950 Author Organization [facility] Address [address] [place] [address] Care Team Providers Name Role Phone Elyse Paredes MD Primary Care Provider Reason for Visit Reason Comments QUESTIONS, GENERAL dexcom Rx Encounter Details Date Type Department Care Team Description 10/09/2019 Telephone Specialty Center [address], QUESTIONS, GENERAL Endocrinology Clinic (dexcom Rx) [facility] [address] [place] [address] [place], [place] [phone] [facility] Social History Tobacco Use Types Packs/Day Years Used Date Smoking Tobacco: Former Cigarettes Quit : 08/02/1981 Smokeless Tobacco: Never Alcohol Use Standard Drinks/Week Comments No 0 (1 standard drink = 0.6 oz pure alcoho l) Sex Assigned at Date Recorded Not on file documented as of this encounter Progress Notes Jacquelyn Fried RN - 10/17/2019 1:21 PM CDT Addended by: JACQUELYN FRIED on: 10/17/2019 01:21 PM Modules accepted: Orders Jacquelyn Fried RN - 10/16/2019 2:37 PM CDT Addended by: JACQUELYN FRIED on: 10/16/2019 02:37 PM Modules accepted: Orders documented in this encounter Nursing Notes Jacquelyn Fried RN - 10/18/2019 10:02 AM CDT Called and spoke with [facility]. Explained that we never received a CMN form from them, only a request for CN that were faxed on 10/15and 10/16. Will fax a CMN to clinic for provider to sign. No further questions or concerns. Jacquelyn Fried RN 10/18/2019, 10:03 AM Elda Espinal - 10/18/2019 9:27 AM CDT Ghislaine from [facility] called to say they haven't received the CMN and clinical notes. , phone # [phone]. Elda Espinal Jacquelyn Fried RN - 10/17/2019 1:19 PM CDT Rx sent to pharmacy requested again. CN faxed to pharmacy requested. Pt notified. Jacquelyn Fried RN 10/17/2019, 1:19 PM Betty Vivas - 10/17/2019 12:54 PM CDT Pt called, near tears, stating she just spoke with the pharmacy and they have not received the RX. It was sent, per message below. Please resend to pharmacy and call pt back to confirm. She is beyond frustrated; thank you. Jacquelyn Fried RN - 10/16/2019 3:00 PM CDT Noted. CN and updated Rx sent to pharmacy requested. Jacquelyn Fried RN 10/16/2019, 3:00 PM Elda Espinal - 10/16/2019 2:16 PM CDT Patient called to say [facility] is claiming they haven't received the additional Medicare paperwork from the clinic. Patient can be reached at [phone], if you have questions. Elda Espinal Jacquelyn Fried RN - 10/09/2019 2:07 PM CDT Called and spoke with patient. States that she spoke with [facility] pharmacy and they need CN and Medicare form signed. Explained that [facility] needs to fax those request to the clinic. Pt verbalized understanding and agreed with plan. Will contact [facility] regarding her request. No further questions or concerns. Jacquelyn Fried RN 10/09/2019, 2:10 PM Elda Espinal - 10/09/2019 10:34 AM CDT Miscellaneous Questions & FYI's [[facility]: If this call is after 3 p.m., communicate to patient: If we are not able to get back to you by the end of the day and your symptoms worsen please contact the Careline at [phone] OR at .] Is this a symptom? No What is your question or concern? Patient would ignacia to discuss the dexcom Rx with a nurse. The Special[facility] pharmacy is requesting paperwork. Have you recently been seen for this? No Is it okay to leave a detailed message on your voicemail? Yes Elda Espinal documented in this encounter Plan of Treatment Upcoming Encounters Date Type Specialty Care Team Description 08/13/2022 Appointment Radiology Denise Aguirre, OPTOMETRIST OWNER, HAND BOOTMAKER [address] [place] [address] (Wo rk) 08/13/2022 Appointment Hematology and Oncology Denise Aguirre, OPTOMETRIST OWNER, HAND BOOTMAKER [address] [place], [place] [address] (Wo rk) documented as [...] Primary documented in this encounter Care Teams Dye Colorist Formulator Relationship Specialty Start Date End Date Elyse Paredes MD PCP - General Family Practice 03/19/17 [address] [place] [address] documented as of this encounter
--- OUTSIDE RECORDS SUMMARY | 2022-07-02 13:52 | XMS_ITS | Encounter Summary ---
:1950 Author Organization [facility] Address [address] [place] [address] Care Team Providers Name Role Phone Elyse Paredes MD Primary Care Provider Encounter Details Date Type Department Care Team Description 10/05/2019 Orders Only External to Elyse Paredes MD [address] [place], [place] [address] (Wo rk) Social History [...] Team Description 08/13/2022 Appointment Radiology Denise Aguirre, MERCHANDISING EXECUTION MANAGER, ANALYTICAL LEAD [address] [place], [place] [address] (Wo rk) 08/13/2022 Appointment Hematology and Oncology Denise Aguirre APRN, ANALYTICAL LEAD [address] [place], [place] [address] (Wo rk) documented as [...] Date/Time Associated Diagnosis Comme nts [facility] 10/05/2019 12:00 AM Results for this WOOD SCIENCE PROFESSOR procedure are i n the results section . documented in this encounter Results [facility] (10/05/2019 12:00 AM WOOD SCIENCE PROFESSOR) Specimen (Source) Anatomical Location Collection Method / Collectio n Time Received Time / Laterality Volume 10/05/2019 Narrative This result has an attachment that is no t available. Elyse Paredes MD LAB_1 documented in this encounter Visit Diagnoses Not on filedocumented in this encounter Care Teams Deck Officer Relationship Specialty Start Date End Date Elyse Paredes MD PCP - General Family Practice 03/19/17 [address] [place] [address] documented as of this encounter
--- OUTSIDE RECORDS SUMMARY | 2022-07-02 13:52 | XMS_ITS | Encounter Summary ---
:1950 Author Organization Count includes the [facility] Address [address] [place] [address] Care Team Providers Name Role Phone Elyse Paredes MD Primary Care Provider Reason for Visit Reason Comments QUESTIONS, GENERAL Encounter Details Date Type Department Care Team Description 08/11/2019 Telephone EpiGaN Cancer [facility] [place] [facility], GENERAL [place] at [id number] [place] [address] [phone] Social History Tobacco Use Types Packs/Day Years Used Date Smoking Tobacco: Former Cigarettes Quit : 08/02/1981 Smokeless Tobacco: Never Alcohol Use Standard Drinks/Week Comments No 0 (1 standard drink = 0.6 oz pure alcoho l) Sex Assigned at Date Recorded Not on file documented as of this encounter Nursing Notes Lilly Kim RN - 08/11/2019 12:58 PM CST Left a message stating that nurse is returning call. Lilly Kim RN 08/11/2019, 12:59 PM CUTTER LATHE OPERATOR Dolly Hernandez RN - 08/11/2019 12:16 PM CST Marci left a message on the nurse line asking for the nurse to call her back. She would like to discuss anastrozole and possible side effects she is having. Dolly Hernandez RN 08/11/2019, 12:17 PM CUTTER LATHE OPERATOR documented in this encounter Plan of Treatment Upcoming Encounters Date Type Specialty Care Team Description 08/13/2022 Appointment Radiology Denise Aguirre, COMPLIANCE ADVISOR, MANAGER BUSINESS INTELLIGENCE [address] [place], [place] [address] (Wo rk) 08/13/2022 Appointment Hematology and Oncology Denise Aguirre APRN, MANAGER BUSINESS INTELLIGENCE [address] [place], [place] [address] (Wo rk) documented as [...] on filedocumented in this encounter Care Teams Hair And Makeup Designer Relationship Specialty Start Date End Date Elyse Paredes MD PCP - General Family Practice 03/19/17 [address] [place] [address] documented as of this encounter
--- OUTSIDE RECORDS SUMMARY | 2022-07-02 13:52 | XMS_ITS | Encounter Summary ---
:1950 Author Organization [facility] Address [address] [place] [address] Care Team Providers Name Role Phone Elyse Paredes MD Primary Care Provider Encounter Details Date Type Department Care Team Description 07/21/2019 Notes/Orders [facility] Cathleen [place], at [id number] [place] [address] [phone] (Wo rk) Social History Tobacco Use Types [...] Team Description 08/13/2022 Appointment Radiology Denise Aguirre, CIRCULAR DISTRIBUTOR, CENTRAL OFFICE OPERATOR SUPERVISOR [address] [place], [place] [address] (Wo rk) 08/13/2022 Appointment Hematology and Oncology Denise Aguirre, CIRCULAR DISTRIBUTOR, CENTRAL OFFICE OPERATOR SUPERVISOR [address] [place], [place] [address] (Wo rk) documented as [...] on filedocumented in this encounter Care Teams Crew Leader Gluing Relationship Specialty Start Date End Date Elyse Paredes MD PCP - General Family Practice 03/19/17 [address] [place] [address] documented as of this encounter
--- OUTSIDE RECORDS SUMMARY | 2022-07-02 13:52 | XMS_ITS | Encounter Summary ---
:1950 Author Organization [facility] Address [address] [place] [address] Care Team Providers Name Role Phone Elyse Paredes MD Primary Care Provider Reason for Visit Reason Comments Refill TRULICITY 1.5 MG/0.5ML injec iton pen [Pharmacy Med Name: TRULICITY 1.5MG/0.5ML SDP 4X0.5ML] Encounter Details Date Type Department Care Team Description 08/03/2019 Refill [facility] [address], Refill (TRULICITY 1.5 [facility] CANCER GENETICS ASSISTANT, DNP MG/0.5ML injeciton pen [address] [Pharmacy Med Name: [place] [address] [place], [place] TRULICITY 1.5MG/0.5ML [phone] [id number] SDP 4X0.5ML]) Social History Tobacco Use Types Packs/Day Years Used Date Smoking Tobacco: Former Cigarettes Quit : 08/02/1981 Smokeless Tobacco: Never Alcohol Use Standard Drinks/Week Comments No 0 (1 standard drink = 0.6 oz pure alcoho l) Sex Assigned at Date Recorded Not on file documented as of this encounter Nursing Notes Jacquelyn Matos RN - 08/04/2019 8:53 AM CST Completed per physician's orders. Jacquelyn Matos RN 8:53 AM 08/04/2019 DING SUPERINTENDENT Interface, Out Surescripts Prov Query - 08/03/2019 4:20 PM CST TRULICITY 1.5 MG/0.5ML injeciton pen [Pharmacy Med Name: TRULICITY 1.5MG/0.5ML SDP 4X0.5ML] Diabetes - Glucagon-Like Peptide 1 Agonist -> HBA1C is overdue (performed 9 months ago, required every 6 months) -> HBA1C is abnormal (8.3 % is greater than 7.9 %) -> HBA1C is overdue. An abnormal HBA1C (8.3%) was resulted on 11/21/2018 and HBA1C is required to be rechecked within 2 months to 3 months after an abnormal result. Last qualifying visit: 04/07/2019 (in Endocrinology with JUAN ZARAGOZA) Next scheduled visit: 10/06/2019 (in Endocrinology with JUAN ZARAGOZA) Last ordered by TAWANDA SALAS: 09/15/2018 (322 days ago) QTY: 6, Refills: 3, Sig: inject 0.5 ml subcutaneously once every week. (changed but equivalent) HBA1C: 8.3 % on 11/21/2018 Powered by [employer], Reference: [id number], 08/03/2019 4:20:31 PM BUILDING SUPERINTENDENT, Pool: [facility] TEAM ([id number]) DING SUPERINTENDENT Interface, Out Datahero Query - 08/03/2019 4:20 PM CST The following lab order(s) may be associated with the Result Note below: HGB A1C Notes recorded by Jacquelyn Matos RN on 11/30/2018 at 2:52 PM CDT Will discuss at office visit on 12/02/2018 Jacquelyn Matos RN 11/30/2018, 2:52 PM ------ Notes recorded by Tawanda Salas MD on 11/29/2018 at 7:31 PM CDT Labs noted She will follow with dr [email or web address] as scheduled ------ Notes recorded by Yosi Greco RN on 11/29/2018 at 8:01 AM CDT Provider out of the office, rescheduled.Yosi Greco RN ------ Notes recorded by Yosi Greco RN on 11/22/2018 at 7:10 AM CDT Appointment with Dr Salas 11/29/2018.Yosi Greco RN DING SUPERINTENDENT Interface, Out ForMunescripts Prov Query - 08/03/2019 4:20 PM CST The following lab order(s) may be associated with the following Patient Result Comment (Entered by Juan Zaragoza MD at 12/02/2018 8:44 AM): HGB A1C HgA1c goal is less than 8.0 with a diagnosis of [id number] (estimated Average Glucose) (%) (mg/dL)5 97 6 126 7 154 8 183 9 212 10 240 11 269 12 298 Normal blood sugar A1c 6.4 and lessPrediabetes diagnosed by an A1c 5.7-6.4Diabetes diagnosed by an A1c 6.5 and above DING SUPERINTENDENT documented in this encounter Plan of Treatment Upcoming Encounters Date Type Specialty Care Team Description 08/13/2022 Appointment Radiology Denise Aguirre, CANCER GENETICS ASSISTANT, CONFERENCE SERVICES MANAGER [address] [place], [place] [address] (Wo rk) 08/13/2022 Appointment Hematology and Oncology Denise Aguirre, CANCER GENETICS ASSISTANT, CONFERENCE SERVICES MANAGER [address] [place], [place] [address] (Wo rk) documented as [...] Diagnosis Uncontrolled type 2 diabetes mellitus wi thout complication, with long-term current use of insulin documented in this encounter Care Teams Learning Disabled Teacher Relationship Specialty Start Date End Date Elyse Paredes MD PCP - General Family Practice 03/19/17 [address] [place] [address] documented as of this encounter
--- OUTSIDE RECORDS SUMMARY | 2022-07-02 13:52 | XMS_ITS | Encounter Summary ---
:1950 Author Organization [employer] Address [address] [place] [address] Care Team Providers Name Role Phone Elyse Paredes MD Primary Care Provider Reason for Visit Reason Comments Video Visit creatinine1.65 Consult/Transfer Care (Routine) - Closed Specialty Diagnoses / Procedures Referred By Contact Refer red To Contact Diagnoses Controlled type 2 diabetes mellitus without complication, with long-term current use of insulin (HRC) Juan Cho MD [address] [place] [address] Referral ID Status Reason Start Date Expiration Date Visits Requ ested Visits Authorized [id number] Closed 10/06/2019 01/04/2021 1 1 Encounter Details Date Type Department Care Team Description 12/04/2019 [facility] Prasanna Rivera in creatinine (Primary Dx); 401 Nephrology MD Angelica Essential hypertension; 401 [facility] [address] NSAID long-term use; [place] [address] [place], [place] Osteoarthritis, unspecified osteoarthritis type, unspecified site [phone] [id number] Social History Tobacco Use Types Packs/Day Years Used Date Smoking Tobacco: Former Cigarettes Quit : 08/02/1981 Smokeless Tobacco: Never Alcohol Use Standard Drinks/Week Comments No 0 (1 standard drink = 0.6 oz pure alcoho l) Sex Assigned at Date Recorded Not on file documented as of this encounter Patient Instructions Patient InstructionsPrasanna Rivera MD - 12/04/2019 1:00 PM CDT Images from the original note were not included. 1. The last kidney function test showed the creatinine was 1.65, and estimated GFR was decreased to 31 ml/min. That is concerning because the creatinine was better in June, creatinine 1.43, and estimated 37 ml/min. Here is a picture of the kidney function, which I showed you over the video screen during our appointment. 2. I would recommend holding the celebrex, since that can effect the kidney function and cause chronic kidney disease. 3. I would decrease the losartan does back to 50 mg daily. 4. I suspect you may have a more complicated kind of arthritis, which may be autoimmune in nature. We are going to check for a rheumatoid factor and CRP. I will also check a uric acid level. If we findthat the blood tests suggest something like Rheumatoid Arthritis, I will refer you to a Sourcing Engineer, since there are new treatments that may really have a huge impact on the progression of the disease 5. Please have labs in about 2 weeks. Call and ask to speak to lab scheduling for theappointment Follow up with me in about 4 weeks documented in this encounter Progress Notes Prasanna Rivera MD - 12/04/2019 1:00 PM CDT Nephrology Video Office Consultation Name: Marci Diaz : 1950 DATE OF SERVICE: 12/04/2019 NAME OF REQUESTING PHYSICIAN: Luis Fernando Paredes MD REASON FOR CONSULT: abnormal kidney function Chief Complaint Patient presents with ??? Video Visit creatinine1.65 HISTORY OF PRESENTING ILLNESS: Thank you for allowing me to participate in the care of . Marci Diaz She was evaluated during a video visit today due to stay at home orders in the setting of pandemicCOVID-19 and increased risk to patient to travel due to age and comorbidity. As you know, she is a 69 y.o. female with a recent increase in the creatinine consistent with decreased kidney function. Her creatinine was 1.65 in September, 1.43 in June, 1.32 in August of 2018, and1.17 in May 2018. She had a pre-colonoscopy creatinine of 1.65 with eGFR of 37 ml/min. She has diabetes, hypertension, and severe arthritis. She also has CAD s/p LAD stent and a history of TAVR. She has been on losartan for hypertension. She reports that she has well controlled hypertension. Her BP was 136/74 the last time she had an exam in early September. She also takes chlorthalidone 25 mg daily, and has occasional mild ankle edema when standing. She has had diabetes since the mid , initially treated with metformin. She reports that over the years she ended up being taken off metformin and transitioning to long and short acting insulin Despite a history of diabetes, she does not have apparent albuminuria presently. Her Screen in Septemberwas negative, and 1 year ago her screen was negative. About 2 years ago her urine microalb/cr ratio was high at 63 mg/g. She has CAD, and underwent an LAD stent in May of 2017 at [place]. She also underwent TAVR procedure in July of 2017. At that time she had a creatinine of 1.01. Post procedure her creatinine was 1.20 in August of 2018. The creatinine was unchanged at 1.20 in March of 2018. The patient is s/p breast cancer and takes anastrozole. She feels she gets achy from that. She reports that the oncologist recommended probably 5-6 years of therapy. She takes celebrex for aches and pains. She reports that last fall her PCP tried to stop celebrex, but she could not tolerate being off of it for long. She was taking prescription strength advil for years prior to that. She has pain in the joints in her fingers and has also developed shoulder pain andelbow pain. She had a Rheumatology consultation in 2000 at [facility]. At that time she had andelevated CRP and positive RF, but did not have joint swelling and the Sourcing Engineer said he could not make the diagnosis of RA given the short length of time that the symptoms had been present. About 10 years ago she had Kidney stones. She has seen Dr. Johns of the [facility] [place] in the past. PAST MEDICAL HISTORY: Past Medical History: Diagnosis Date ??? A-fib (HRC) ??? Breast cancer (HRC) 2018 IDC - radiation ??? CAD (coronary artery disease) (HRC) JEFFERSON to LAD ??? HTN (hypertension) (HRC) ??? Hx of total knee arthroplasty Left knee ??? Hyperlipidemia (HRC) ??? Nephrolithiasis ??? DEDE on CPAP ??? S/P TAVR (transcatheter aortic valve replacement) 07/2017, [facility] ??? Uncontrolled type 2 diabetes mellitus, with long-term current use of insulin (HRC) 03/19/2017 ALLERGIES: is allergic to erythromycin; lisinopril; and metformin. PAST SURGICAL HISTORY : has a past surgical history that includes knee replacement (Bilateral); aortic valve replacement (07/06/2017); breast lumpectomy (Left, 09/2018); and breast biopsy (Left, 2018). FAMILY HISTORY: family history is negative for Cancer, Breast, Cancer, Colon, Cancer, Lung, Cancer, Ovary, Cancer, Prostate, and Cancer, Pancreatic. SOCIAL HISTORY: reports that she quit smoking about 38 years ago. She has never used smokeless tobacco. She reports that she does not drink alcohol. MEDICATIONS: ACCU-CHEK GERALD PLUS test strip, Check fasting / before meals, and at bedtime, . Pharmacy dispense brand based on insurance., Disp: 350 Strip, Rfl: 6 amoxicillin (AMOXIL) 500 MG capsule, Take 500 mg by mouth., Disp: , Rfl: anastrozole (ARIMIDEX) 1 MG tablet, Take 1 Tablet by mouth daily., Disp: 90 Tablet, Rfl: 3 aspirin, enteric-coated 81 MG enteric coated tablet, Take 1 Tab by mouth daily., Disp: 90 Tab, Rfl: 3 B-D UF III MINI PEN NEEDLES 31G X 5 MM needle, 4-5 times daily., Disp: 100 Each, Rfl: 11 celecoxib (CELEBREX) 200 MG capsule, 1 Cap daily., Disp: 90 Cap, Rfl: 1 chlorthalidone (HYGROTON) 25 MG tablet, Take 1 Tablet by mouth daily., Disp: 30 Tablet, Rfl: 11 Continuous Blood Gluc Business Services Vice President (DEXCOM G6 HVAC LEAD) JAY, Use as directed for continuous glucose monitoring., Disp: 1 Device, Rfl: 0 Continuous Blood Gluc Sensor (DEXCOM G6 SENSOR) [facility], Use as directed for continuous glucose monitoring. Change sensor every 10 days., Disp: 3 Each, Rfl: 5 Continuous Blood Gluc Transmit (DEXCOM G6 TRANSMITTER) [facility], Use as directed for continuous glucose monitoring. [...] Disp: 90 Tab, Rfl: 3 sertraline (ZOLOFT) 100 MG tablet, Take 1/2 tab daily, Disp: , Rfl: TRULICITY 1.5 MG/0.5ML injeciton pen, INJECT 0.5ML UNDER THE SKIN ONCE EVERY WEEK, Disp: 6 mL, Rfl: 4 warfarin (COUMADIN) 2.5 MG tablet, TAKE 1 TABLET BY MOUTH EVERY DAY, Disp: , Rfl: REVIEW OF SYSTEMS: ROS: As per HPI, otherwise negative on comprehensive ROS PHYSICAL EXAM: GEN alert pleasant in NAD VS not able to be taken LABS:I personally reviewed the findings with the patient. Comprehensive Metabolic PanelResulted: 10/04/2019 7:58 PM [facility] Component Name Value Ref Range Sodium 140 136 - 145 mmol/L Potassium 4.1 3.5 - 5 mmol/L Chloride 101 98 - 107 mmol/L CO2 29 22 - 31 mmol/L Anion Gap, Calculation 10 5 - 18 mmol/L Glucose 141 (H) 70 - 125 mg/dL BUN 25 (H) 8 - 22 mg/dL Creatinine 1.65 (H) 0.6 - 1.1 mg/dL GFR MDRD Af Amer 38 (L) >60 mL/min/1.73m2 GFR MDRD Non Af Amer 31 (L) >60 mL/min/1.73m2 Bilirubin, Total 0.9 0 - 1 mg/dL Calcium 9.9 8.5 - 10.5 mg/dL Protein, Total 7.2 6 - 8 g/dL Albumin 3.7 3.5 - 5 g/dL Alkaline Phosphatase 71 45 - 120 U/L AST 29 0 - 40 U/L ALT 23 0 - 45 U/L Microalbumin, Random UrineResulted: 03/25/2016 4:05 PM [facility] Component Name Value Ref Range Microalbumin, Random Urine 2.91 (H) 0 - 1.99 mg/dL Creatinine, Urine 178.8 mg/dL Microalbumin/Creatinine Ratio Random Urine 16.3 <=19.9 mg/g Renal panel: Lab Results Component Value Date/Time SODIUM 141 03/19/2017 01:51 PM K 4.0 03/19/2017 01:51 PM CHLORIDE 105 03/19/2017 01:51 PM BUN 21 03/19/2017 01:51 PM CREATININE 1.31 (H) 11/21/2018 12:56 PM GFR 42 (L) 11/21/2018 12:56 PM GFR 49 (L) 11/21/2018 12:56 PM GLUCOSE 105 03/19/2017 01:51 PM CA 10.2 03/19/2017 01:51 PM ANIONGAP 10 03/19/2017 01:51 PM Lab Results Component Value Date/Time CREATININE 1.31 (H) 11/21/2018 12:56 PM CREATININE 0.98 03/19/2017 01:51 PM Lipid profile: LDL, Direct (mg/dL) Date Value 11/21/2018 94 HbA1C: Hemoglobin A1C (%) Date Value 11/21/2018 8.3 (H) Urine microalbumin/creatinine ratio: Ratio (mg/g creatinine) Date Value 03/19/2017 63 (H) Microalb/Creat Ratio, Urine Random (mg/g) Date Value 11/21/2018 6 Imaging: I personallyreviewed the imaging findings in the office with the patient. Result Impression CONCLUSION: 1.?The mass described on the MRI report corresponds to a large simple cyst in the lower pole of the left kidney measuring 5.6 cm in greatest diameter. 2.?The ultrasound is otherwise normal. Result Narrative US KIDNEY BILATERAL WITH BLADDER 01/09/2014 10:11 AM INDICATION: Left renal mass seen on MRI. TECHNIQUE: Routine kidneys and bladder. COMPARISON: The MRI study from 12/08/2013. FINDINGS: Right kidney measures 10.9 x 5.2 x 5.6 cm. No hydronephrosis. No mass. Normal renal echotexture. Left kidney measures 11.1 x 6.3 x 7.4 cm. No hydronephrosis. Normal renal echotexture. There is a partially exophytic anechoic avascular cyst within the lower pole which measures 5.2 x 5.1 x 5.6 cm. Bladder is normal. Other Result Information Interface, Rad Results In - 01/09/2014 10:27 AM CDT US KIDNEY BILATERAL WITH BLADDER 01/09/2014 10:11 AM INDICATION: Left renal mass seen on MRI. TECHNIQUE: Routine kidneys and bladder. COMPARISON: The MRI study from 12/08/2013. FINDINGS: Right kidney measures 10.9 x 5.2 x 5.6 cm. No hydronephrosis. No mass. Normal renal echotexture. Left kidney measures 11.1 x 6.3 x 7.4 cm. No hydronephrosis. Normal renal echotexture. There is [...] diameter. 2. The ultrasound is otherwise normal. CT ABDOMEN PELVIS WO ORAL WO IV CONTRAST 06/21/2017 3:26 PM INDICATION: radiolucent ureteral stone follow-up; LOW DOSE TECHNIQUE: Routine CT abdomen and pelvis without oral or IV contrast. Multiplanar reformation images(MPR). Dose reduction techniques were used. COMPARISON: 06/05/2017 FINDINGS: LUNG BASES: Negative. ABDOMEN: Resolution of the distal right ureteral stone with resolved mild hydronephrosis. No remaining stones on either side. Dystrophic calcifications near the right renal hilum of no significance. Probable cyst mid left kidney unchanged. No significant incidental findings. PELVIS: Negative other than diverticulosis sigmoid colon MUSCULOSKELETAL: Negative. IMPRESSION: CONCLUSION: 1. Resolution of the tiny distal right ureteral stone with resolved mild right hydronephrosis. 2. No new findings. ENCOUNTER DIAGNOSES: 1. Increase in creatinine 2. Essential hypertension (HRC) 3. NSAID long-term use 4. Osteoarthritis, unspecified osteoarthritis type, unspecified site ASSESSMENT/ PLAN: 1. Increase creatinine to 1.65. I was consulted to evaluate the recent increase in the creatinine consistent with decreased kidney function. Her creatinine was 1.65 in September, 1.43 in June, 1.32 in August of 2018, and 1.17 in May 2018. The eGFR is 31 ml/min. This is concerning. Review of her history is positive for diabetes recent urine protein screenings. In addition her blood pressure is relatively well controlled. Her history is concerning for long-term use of NSAIDs, including current use of Celebrex. Renal imaging shows benign kidney cyst but no evidence of chronic changes. I reviewed her prior studies from both [facility] and [facility] - I strongly suspected that her kidney function is being affected by Celebrex. She may also not be tolerating losartan at the dose of 75 mg daily. The combination of the losartan and the diuretic may make her kidney function more labile. She does not have any over or outward signs of vasculitis or glom erulonephritis. I am concerned about her joint pains and hand swelling, and is a remote history of her having a positive rheumatoid factor and seeing a beauty sales consultant in 2000. - I recommend that she stop taking Celebrex for the next few weeks - am going to have her repeat her renal function panel, and also check a rheumatoid factor and CRP. She might need a Rheumatology evaluation, and if her rheumatoid arthritis is diagnosed that may be helpful because she may be able to get on a more effective medication that would have disease modifyingeffect, as opposed to NSAIDs - I have asked her to decrease her losartan dose to 50 mg daily to see if that improves the kidney function - I have also ordered a uric acid because of the joint pains and common association of chronic kidney disease and gout - at this point is no indication for a renal biopsy Orders Placed This Encounter ??? Rheumatoid Factor, Quant ??? C-Reactive Protein ??? Basic Metabolic Panel ??? Uric Acid Thank you for allowing me to participate in the care of this pt. I will follow her closely with you. she will return to the clinic in 4 weeks Time spent on Video call was 50 minutes. Prasanna Rivera MD Nephrology documented in this encounter Plan of Treatment Upcoming Encounters Date Type Specialty Care Team Description 08/13/2022 Appointment Radiology Denise Aguirre, FIRE EQUIPMENT INSPECTOR, DEBURRING TECHNICIAN [address] [place] [address] [place] [address] (Wo rk) 08/13/2022 Appointment Hematology and Oncology Denise Aguirre, GRIFFIN, DEBURRING TECHNICIAN [address] [place], [place] [address] (Wo rk) documented as [...] of this encounter Results (ABNORMAL) Uric Acid (12/21/2019 12:30 PM CDT) P athologist Signature Uric Acid 8.3 (H) 2.6 - 6.0 12/21/2019 [facility] mg/dL 7:32 PM CDT CENTRAL LAB Specimen Anatomical Collection Method / Collection Time Recei gil Time (Source) Location / Volume Laterality Blood Venipuncture / 12/21/2019 12:30 0 Unknown PM CDT 12:30 PM CDT Prasanna Rivera MD LAB_1 Performing Organization Address City/State/ZIP Code Phon e Number [email or web address]AL LAB [address] [address] (ABNORMAL) Basic Metabolic Panel (12/21/2019 12:30 PM CDT) Patholo gist Method Time Signature Sodium 140 136 - 145 12/21/2019 [facility] mmol/L 6:21 PM CDT CENTRAL LAB Potassium 3.8 3.5 - 5.1 12/21/2019 [facility] mmol/L 6:21 PM CDT CENTRAL LAB Chloride 101 98 - 109 12/21/2019 [facility] mmol/L 6:21 PM CDT CENTRAL LAB CO2 28 20 - 29 12/21/2019 [facility] mmol/L 6:21 PM CDT CENTRAL LAB Anion Gap 11 7 - 16 12/21/2019 [facility] mmol/L 6:21 PM CDT CENTRAL LAB Calcium 9.9 8.4 - 12/21/2019 [facility] 10.4 6:21 PM CDT C[facility]AL LAB mg/dL BUN 28 (H) 7 - 26 12/21/2019 [facility] mg/dL 6:21 PM CDT CENTRAL LAB Creatinine 1.33 (H) 0.55 - 12/21/2019 [facility] 1.02 6:21 PM CDT CENTRAL LAB mg/dL GFR, Estimated 41 (L) >60 12/21/2019 [facility] mL/min/1. 6:21 PM CDT CENTRAL LAB 73m2 GFR, Est If 48 (L) >60 12/21/2019 [facility] mL/min/1. 6:21 PM CDT CENTRAL LAB Montserratian 73m2 Glucose 127 (H) 70 - 100 12/21/2019 [facility] mg/dL 6:21 PM CDT CENTRAL LAB Comment: The given reference range is fo r the fasting state. Non-fasting reference range for glucose is 70 - 180 mg/dL. Hours Fasting Unknown 12/21/2019 6:21 PM CDT [facility] Specimen Anatomical Collection Method / Collection Time Recei gil Time (Source) Location / Volume Laterality Blood Venipuncture / 12/21/2019 12:30 0 Unknown PM CDT 12:30 PM CDT Narrative [facility] C[facility]AL [facility] - 12/21/2019 6:21 PM CDT The National Kidney Disease Education Pr ogram suggests measuring Cystatin C in patients with eGFRcrea of 45 to 59 ml/mi n/1.73^2 who do not have other markers of kidney damage (i.e. elevated urine Album in/Creatinine Ratio or a prior Cystatin C confirming the presence of chronic kidne y disease). Prasanna B Dunlap MD LAB_1 Performing Organization Address [facility]/ZIP Code Phon e Number [email or web address] CENTRAL LAB [address] [address] [facility] [address] [place] [address] [phone] LABORATORY C-Reactive Protein (12/21/2019 12:30 PM CDT) [employer] gist Method Time Signature C-Reactive 0.4 0.0 - 0.7 12/22/2019 [email or web address] Protein mg/dL 4:17 PM CDT CENTRAL LAB Specimen Anatomical Collection Method / Collection Time Recei gil Time (Source) Location / Volume Laterality Blood Venipuncture / 12/21/2019 12:30 0 Unknown PM CDT 12:30 PM CDT Prasanna Rivera MD LAB_1 Performing Organization Address [facility]/ZIP Code Phon e Number [email or web address] C[facility]TRAL LAB [address] [place] [address] Rheumatoid Factor, Quant (12/21/2019 12:30 PM CDT) [employer] gist Method Time Signature Rheumatoid <15 <=30 12/21/2019 [facility] Factor, IU/mL 6:21 PM CDT CENTRAL LAB Quantitative Specimen Anatomical Collection Method / Collection Time Recei gil Time (Source) Location / Volume Laterality Blood Venipuncture / 12/21/2019 12:30 0 Unknown PM CDT 12:30 PM CDT Prasanna Rivera MD LAB_1 Performing Organization Address City/[facility]/ZIP [facility] Phon e Number [facility]GU[email or web address] CENTRAL LAB [address] [address] documented in this encounter Visit Diagnoses Diagnosis Increase in creatinine - Primary Essential hypertension (HRC) Unspecified essential hypertension NSAID long-term use Encounter for long-term (current) use of non-steroidal anti-inflammatories Osteoarthritis, unspecified osteoarthrit is type, unspecified site documented in this encounter Care Teams Supervisor Blast Furnace Relationship Specialty Start Date End Date Elyse Paredes MD PCP - General Family Practice 03/19/17 [address] [place] [address] documented as of this encounter
--- OUTSIDE RECORDS SUMMARY | 2022-07-02 13:52 | XMS_ITS | Encounter Summary ---
:1950 Author Organization [employer] Address [address] [place] [address] Care Team Providers Name Role Phone Elyse Paredes MD Primary Care Provider Encounter Details Date Type Department Care Team Description 11/14/2019 Refill Order Specialty Center 401 Freya Zaragoza MD Endocrinology Clinic [address] [place] [address] [place] [address] [phone] Social History Tobacco Use Types Packs/Day Years Used Date Smoking Tobacco: Former Cigarettes Quit : 08/02/1981 Smokeless Tobacco: Never Alcohol Use Standard Drinks/Week Comments No 0 (1 standard drink = 0.6 oz pure alcoho l) Sex Assigned at Date Recorded Not on file documented as of this encounter Nursing Notes Interface, Out Surescripts Prov Query - 11/14/2019 8:18 AM CDT ORDER THE FOLLOWING: - HEMOGLOBIN A1C: Previously ordered on 10/06/2019 and will on 10/05/2020 SCHEDULE THE FOLLOWING: - HEMOGLOBIN A1C BY: Now (Due as of 02/19/2019 for multiple medications including insulin glargine (LANTUS SOLOSTAR) 100 UNIT/ML pen) - LAST QUALIFYING VISIT IN ENDOCRINOLOGY WITH RAZIA ZARAGOZA - NEXT SCHEDULED VISIT IN ENDOCRINOLOGY WITH RAZIA ZARAGOZA - NEXT LAB APPOINTMENT: None Powered by [employer], Reference: [id number], 11/14/2019 8:18:34 AM CDT, Pool: MARY YANEZ RN ([id number]) documented in this encounter Plan of Treatment Upcoming Encounters Date Type Specialty Care Team Description 08/13/2022 Appointment Radiology Denise Aguirre APRN, SUPPORT DIRECTOR [address] [place], [place] [address] (Wo rk) 08/13/2022 Appointment Hematology and Oncology Denise Aguirre APRN, SUPPORT DIRECTOR [address] [place], [place] [address] (Wo rk) documented as [...] medications documented in this encounter Care Teams Parts Analyst Relationship Specialty Start Date End Date Elyse Paredes MD PCP - General Family Practice 03/19/17 [address] [place] [address] documented as of this encounter
--- OUTSIDE RECORDS SUMMARY | 2022-07-02 13:52 | XMS_ITS | Encounter Summary ---
:1950 Author Organization [employer] Address [address] [place] [address] Care Team Providers Name Role Phone Elyse Paredes MD Primary Care Provider Encounter Details Date Type Department Care Team Description 10/04/2019 Orders Only External to Elyse Paredes MD [address] [place], [place] [address] (Wo rk) Social History [...] Description 08/13/2022 Appointment Radiology Denise Aguirre, CUSTOMER CONSULTING MANAGER, SHOES HAND SEWER [address] [place], [place] [address] (Wo rk) 08/13/2022 Appointment Hematology and Oncology Denise Aguirre APRN, SHOES HAND SEWER [address] [place], [place] [address] (Wo rk) documented as of this encounter Goals Goal Patient Goal Associated Recent Patient-Stated? Author Type Problems Progress Being active Diabetes Diabetes No Casteleyn, Education Education Tannre Ng RD, CDE Note: Formatting of this [...] LAB 10/04/2019 12:00 AM Results for this LABOR OPERATOR procedure are i n the results section . documented in this encounter Results SCANNED LAB (10/04/2019 12:00 AM LABOR OPERATOR) Specimen (Source) Anatomical Location Collection Method / Collectio n Time Received Time / Laterality Volume 10/04/2019 Narrative This result has an attachment that is no t available. Elyse Paredes MD LAB_1 documented in this encounter Visit Diagnoses Not on filedocumented in this encounter Care Teams Lute Packer Or Applier Relationship Specialty Start Date End Date Elyse Paredes MD PCP - General Family Practice 03/19/17 [address] [place] [address] documented as of this encounter
--- OUTSIDE RECORDS SUMMARY | 2022-07-02 13:52 | XMS_ITS | Encounter Summary ---
:1950 Author Organization [facility] Address [address] [place] [address] Care Team Providers Name Role Phone Elyse Paredes MD Primary Care Provider Reason for Visit Reason Comments Appointment Questions Encounter Details Date Type Department Care Team Description 01/11/2020 Telephone [facility] [employer] [facility] [id number] [place] [address] [phone] Social History Tobacco Use Types Packs/Day Years Used Date Smoking Tobacco: Former Cigarettes Quit : 08/02/1981 Smokeless Tobacco: Never Alcohol Use Standard Drinks/Week Comments No 0 (1 standard drink = 0.6 oz pure alcoho l) Sex Assigned at Date Recorded Not on file documented as of this encounter Nursing Notes Angely Miranda RN - 01/11/2020 2:48 PM CDT Pt calling wondering if her appt on January 18 will be a video visit or in person. She would like a call back at: [phone] Angely Miranda RN 01/11/2020, 2:48 PM documented in this encounter Plan of Treatment Upcoming Encounters Date Type Specialty Care Team Description 08/13/2022 Appointment Radiology Denise Aguirre, MANAGER OCCUPATIONAL, MECHANICAL ENGINEERING TECHNOLOGIST [address] [place], [place] [address] (Wo rk) 08/13/2022 Appointment Hematology and Oncology Denise Aguirre, MANAGER OCCUPATIONAL, MECHANICAL ENGINEERING TECHNOLOGIST [address] [place], [place] [address] (Wo rk) documented as [...] on filedocumented in this encounter Care Teams Hollow Ware Maker Relationship Specialty Start Date End Date Elyse Paredes MD PCP - General Family Practice 03/19/17 [address] [place] [address] documented as of this encounter
--- OUTSIDE RECORDS SUMMARY | 2022-07-02 13:52 | XMS_ITS | Encounter Summary ---
:1950 Author Organization [employer] Address [address] [place] [address] Care Team Providers Name Role Phone Elyse Paredes MD Primary Care Provider Reason for Referral Procedure/Equipment (Routine) - Incomplete Specialty Diagnoses / Procedures Referred By Contact Refer red To Contact Diagnoses Malignant neoplasm of left breast in female, estrogen receptor positive, unspecified site of breast (HRC) History of lumpectomy of left breast Left breast lump Elisa Madrid, Procedures MM US Breast Lt MBBS [address] [place] [address] Referral ID Status Reason Start Date Expiration Date Visits V isits Requested Authorized [id number] Incomplete 11/03/2019 02/01/2021 1 1 Encounter Details Date Type Department Care Team Description 11/03/2019 Notes/Orders [facility]en Rengel, Malign ant neoplasm of left breast in female, estrogen receptor positive, unspecified site of breast (HRC) (Primary Dx); [facility] GRIFFIN Lofton, BARRETT History of lumpectomy of left breast; 640 [facility]. [address] [facility] [place] [address] [place] [address] [phone] (Wo rk) Social History Tobacco Use Types [...] Description 08/13/2022 Appointment Radiology Denise Aguirre APRN, OVEN STRIPPER [address] [place], [place] [address] (Wo rk) 08/13/2022 Appointment Hematology and Oncology Denise Aguirre APRN, OVEN STRIPPER [address] [place], [place] [address] (Wo rk) documented as [...] documented as of this encounter Results MM US Breast Lt (11/07/2019 8:31 AM CDT) Anatomical Region Laterality Modality Breast Left Ultrasound Specimen (Source) Anatomical Collection Method Collection Time Re ceived Time Location / / Volume Laterality 11/07/2019 8:31 AM CDT Narrative 11/07/2019 9:43 AM CDT EXAM: MM US BREAST LT [facility] DATE/TIME: 11/07/2019 8:31 AM INDICATION: 69-year-old female with new palpable lump in the left breast at the surgical site which is been present for the past week. Patient states that she feels the lump has gotten slightly smaller in size. COMPARISON: Mammogram 07/21/2019, 2018, 07/28/2018, 07/19/2018 ULTRASOUND FINDINGS: Targeted ultrasound of the left breast at the palpable area of concern was performed at the 12:00 position, 6 cm from the nipple, there is a heterogeneous mass with solid and cystic components at the surgical site, measur ing 2.6 x 1.9 x 1.4 cm. The finding is thought to represent postsurgical change and fat necrosis, when correlated with previous mammogram visible area of fat necr osis is noted at the surgical site. No s uspicious finding. IMPRESSION: ACR BI-RADS Category 2: Benign. Results given to the patient. Routine an nual screening mammography is recommended. Procedure Note Esterlla Wiggins MD - 11/07/2019Format ting of this note might be different from the original. EXAM: MM US BREAST LT [facility] DATE/TIME: 11/07/2019 8:31 AM INDICATION: 69-year-old female with new palpable lump in the left breast at the surgical site which is been present for the past week. Patient states that she feels the lump has gotten slightly smaller in size. COMPARISON: Mammogram 07/21/2019, 2018, 07/28/2018, 07/19/2018 ULTRASOUND FINDINGS: Targeted ultrasound of the left breast at the palpable area of concern was performed at the 12:00 position, 6 cm from the nipple, there is a heterogeneous mass with solid and cystic components at the surgical site, measuring 2.6 x 1. 9 x 1.4 cm. The finding is thought to represent postsurgical change and fat necrosis, when correlated with previous mammogram visible area of fat necrosis is noted at the surgical site. No suspicious finding. IMPRESSION: ACR BI-RADS Category 2: Benign. Results given to the patient. Routine an nual screening mammography is recommended. Elisa ORTEGA RAD NILAM documented in this encounter Visit Diagnoses Diagnosis Malignant neoplasm of left breast in fem grey, estrogen receptor positive, unspecified site of breast (HRC) - Primary History of lumpectomy of left breast Left breast lump Lump or mass in breast Malignant neoplasm of left breast in fem grey, estrogen receptor positive, unspecified site of breast (HRC) History of lumpectomy of left breast Left breast lump Lump or mass in breast documented in this encounter Care Teams Mixer Operator Vacuum Pan Salt Relationship Specialty Start Date End Date Elyse Paredes MD PCP - General Family Practice 03/19/17 [address] [place] [address] documented as of this encounter
--- OUTSIDE RECORDS SUMMARY | 2022-07-02 13:52 | XMS_ITS | Encounter Summary ---
:1950 Author Organization [facility] Address [address] [place] [address] Care Team Providers Name Role Phone Elyse Paredes MD Primary Care Provider Reason for Visit Reason Comments REPORTING, NEW SYMPTOMS Return Call Encounter Details Date Type Department Care Team Description 10/31/2019 Telephone [employer] [facility] JULIO Madrid, [facility] JORDAN Aldana SYMPTOMS; Return Hospital [address] [facility] Call [address] [place], [place] [address] [place] [address] [phone] Social History Tobacco Use Types Packs/Day Years Used Date Smoking Tobacco: Former Cigarettes Quit : 08/02/1981 Smokeless Tobacco: Never Alcohol Use Standard Drinks/Week Comments No 0 (1 standard drink = 0.6 oz pure alcoho l) Sex Assigned at Date Recorded Not on file documented as of this encounter Nursing Notes Lilly Kim RN - 11/02/2019 5:13 PM CDT Returned patient's call again. Apologized for inability to connect. She has no record of the return calls. About 10 days ago noted a lump in breast near in incision line. Patient has an inverted nipple on left breast. Afebrile, no chills. No redness or warmth. Informed patient that I will place an urgent consult to have this checked. Patient is deathly afraid of coming to to the hospital due to the COVID. She has heart and lung issues as well as being diabetic. Will discuss with Dr. Madrid and advise accordingly. Will placed an urgent consult with breast health center. Lilly Kim RN 11/02/2019, 5:27 PM Awilda Hilliard - 11/02/2019 4:57 PM CDT Marci called again, she states that she never received a call. Please call on tomorrow. Awilda Hilliard 11/02/2019, 4:58 PM Lilly Kim RN - 11/02/2019 8:42 AM CDT Left a message on voice mail apologizing for phone tag. Requested a return call. Lilly Kim RN 11/02/2019, 8:42 AM Stacie Zhao - 11/02/2019 8:20 AM CDT Per pt needs a return call . Stacie Zhao 11/02/2019, 8:20 AM Lilly Kim RN - 10/31/2019 12:03 PM CDT Left a message stating that nurse returned call. Lilly Kim RN 10/31/2019, 12:03 PM Sheron Baumann RN - 10/31/2019 11:36 AM CDT Patient calling asking to speak with nurse concerning new breast lump that has developed over last week. Had breast surgery 1 year ago. Sheron Baumann RN 10/31/2019, 11:37 AM documented in this encounter Plan of Treatment Upcoming Encounters Date Type Specialty Care Team Description 08/13/2022 Appointment Radiology Denise Aguirre, SOLID GLASS ROD DOWEL MACHINE OPERATOR, RAILCAR SWITCHER [address] [place], [place] [address] (Wo rk) 08/13/2022 Appointment Hematology and Oncology Denise Aguirre, SOLID GLASS ROD DOWEL MACHINE OPERATOR, RAILCAR SWITCHER [address] [place], [place] [address] (Wo rk) documented as [...] neoplasm of overlapping sites of left female breast, unspecified estrogen receptor status (HRC) - Primary documented in this encounter Care Teams Drawer In Jacquard Loom Relationship Specialty Start Date End Date Elyse Paredes MD PCP - General Family Practice 03/19/17 [address] [place] [address] documented as of this encounter
--- OUTSIDE RECORDS SUMMARY | 2022-07-02 13:52 | XMS_ITS | Encounter Summary ---
:1950 Author Organization [employer] Address [address] [place] [address] Care Team Providers Name Role Phone Elyse Paredes MD Primary Care Provider Encounter Details Date Type Department Care Team Description 12/15/2019 Orders Only Initial Department Provider, [place], [facility] JE WHITING MD [place], [place] [address] Interface provider [phone] [place] [address] Social History Tobacco Use Types Packs/Day Years [...] Team Description 08/13/2022 Appointment Radiology Denise Aguirre, CHIEF CUSTOMER OFFICER, CPC CODER [address] [place], [place] [address] (Wo rk) 08/13/2022 Appointment Hematology and Oncology Denise Aguirre APRN, CPC CODER [address] [place], [place] [address] (Wo rk) documented as [...] Name Priority Date/Time Associated Diagnosis Comme nts LABORATORY REPORT 12/15/2019 Results fo r this procedure are in the resu lts section. documented in this encounter Results LABORATORY REPORT (12/15/2019) Narrative This result has an attachment that is no t available. Interface Provider DUMMY/OTHER/AR documented in this encounter Visit Diagnoses Not on filedocumented in this encounter Care Teams Labor Delivery Specialist Relationship Specialty Start Date End Date Elyse Paredes MD PCP - General Family Practice 03/19/17 [address] [place] [address] documented as of this encounter
--- OUTSIDE RECORDS SUMMARY | 2022-07-02 13:52 | XMS_ITS | Encounter Summary ---
:1950 Author Organization [facility] [place] Address [address] [place] [address] Care Team Providers Name Role Phone Elyse Paredes MD Primary Care Provider Reason for Visit Reason Comments FYI Encounter Details Date Type Department Care Team Description 11/03/2019 Telephone [facility] Elisa Madrid FYI at [facility] 640 [facility] [address] [place], [place] [id number] [place] [address] [phone] (Wo rk) Social History Tobacco Use Types Packs/Day Years Used Date Smoking Tobacco: Former Cigarettes Quit : 08/02/1981 Smokeless Tobacco: Never Alcohol Use Standard Drinks/Week Comments No 0 (1 standard drink = 0.6 oz pure alcoho l) Sex Assigned at Date Recorded Not on file documented as of this encounter Nursing Notes Majo Pino - 11/03/2019 3:43 PM CDT Patient called , She spoke to someone earlier today ([facility]) and was told they will need to speak to a charge nurse first , but she never got a return call. I tried to call [facility] , but they were closed and will open again Wednesday @ 7am. Advised patient to call them Wednesday morning and to call us to assist if she has any problems setting it up since it is an urgent order for her mammo. Gave her # to the nurse line to call over the weekend if she experienced any increased symptoms. Majo Pino 11/03/2019, 3:48 PM documented in this encounter Plan of Treatment Upcoming Encounters Date Type Specialty Care Team Description 08/13/2022 Appointment Radiology Denise Aguirre, ASSEMBLER SMALL PRODUCTS, AUTOMOTIVE GLASS TECHNICIAN [address] [place], [place] [address] (Wo rk) 08/13/2022 Appointment Hematology and Oncology Denise Aguirre APRN, AUTOMOTIVE GLASS TECHNICIAN [address] [place], [place] [address] (Wo rk) documented as [...] on filedocumented in this encounter Care Teams Cork Insulator Helper Relationship Specialty Start Date End Date Elyse Paredes MD PCP - General Family Practice 03/19/17 [address] [place] [address] documented as of this encounter
--- OUTSIDE RECORDS SUMMARY | 2022-07-02 13:52 | XMS_ITS | Encounter Summary ---
:1950 Author Organization [facility] Address [address] [place] [address] Care Team Providers Name Role Phone Elyse Paredes MD Primary Care Provider Reason for Referral Consult/Transfer Care (Routine) - Closed Specialty Diagnoses / Procedures Referred By Contact Refer red To Contact Diagnoses Controlled type 2 diabetes mellitus without complication, with long-term current use of insulin (HRC) Juan Cho MD [address] [place] [address] Referral ID Status Reason Start Date Expiration Date Visits Requ ested Visits Authorized [id number] Closed 10/06/2019 01/04/2021 1 1 Scheduling Instructions Your provider has recommended an appoint ment with [facility]. You may call [phone] to schedule your appoi ntment. If you prefer, a dental scheduler will contact you within the next 3 business d ays to assist you in setting up this appointment. We suggest you call your [employer] ([employer]) insurance company about your coverage and benefits for this appointment. ZEN PARTICIPATION SPECIALIST Reason for Visit Reason Comments FOLLOW-UP,DIABETES Encounter Details Date Type Department Care Team Description 10/06/2019 Office Visit [facility] [address] Juan Cho, Controlled type 2 diabetes mellitus without complication, with long-term current use of insulin (HRC) (Primary Dx); End[facility]ology Clinic Coronary artery disease involving hydaburg coronary artery of hydaburg heart without angina pectoris; [address] Essential hypertension; [place] [address] [place], [place] Dyslipidemia, goal LDL below 100; [phone] [id number] Obesity, morbid, BMI 50 or higher ([facility]); [phone] Malignant neopl asm of left breast in female, estrogen receptor positive, unspecified site of breast ([facility]) (Work) Social History Tobacco Use Types Packs/Day Years Used Date Smoking Tobacco: Former Cigarettes Quit : 08/02/1981 Smokeless Tobacco: Never Alcohol Use Standard Drinks/Week Comments No 0 (1 standard drink = 0.6 oz pure alcoho l) Sex Assigned at Date Recorded Not on file documented as of this encounter Last Filed Vital Signs Vital Sign Reading Time Taken Comments Blood Pressure 126/67 10/06/2019 1:55 PM CITIZEN PARTICIPATION SPECIALIST Pulse 81 10/06/2019 1:55 PM CITIZEN PARTICIPATION SPECIALIST Temperature - - Respiratory Rate - - Oxygen Saturation - - Inhaled Oxygen Concentration - - Weight 130 kg (286 lb 9.6 oz) 10/06/2019 1:55 PM CITIZEN PARTICIPATION SPECIALIST Height - - Body Mass Index 52.42 09/16/2018 11:15 AM CITIZEN PARTICIPATION SPECIALIST documented in this encounter Patient Instructions Patient InstructionsMuJuan kaiser MD - 10/06/2019 2:00 PM CST During partial fast low fiber continue current inulin regimen With clear liquids then decrease basaglar to 40 units a day, and you can continue trulicity, if lowsoccur consume 7up Follow with nephrology, to better determine the cause of the decreased kidney function, if no other cause can be found will most likely be attributed to diabetes. Use up truclicity then start ozempic Will start ozempic(make sure they give you 0.25/0.5 mg pen rather than the 1 mg pen. 0.25 mg sc once weekly for 4 weeks, then 0.5 mg sc for four weeks, if tolerated increase to 1mg weekly in 1 month. Video tutorial on how to use ozempic. Https://www.[employer]/how-to-use/rok-jlamcge-xtr.html Main side effect nausea and vomiting. If individuals can tolerate the medication for the first 4 weeks in almost all case the nausea goes away in individuals continue to lose weight and have excellent blood sugar control. Medication also decreases cardiovascular risk associated with diabetes. If blood sugars in am are less then 130 then decrease basaglar by 5 units a day If blood sugars drop after meals then decrease huamlog base with meals RETURN IN 4-6 MONTHS PRIOR TO RETURN OBTAIN LABS, non fasting labs 2 weeks prior to return visit. To set up a [facility] lab visit call [phone] , or schedule on line using the My Chart program. The To schedule a future Endocrine visit call [phone] or utilize my chart If you have questions please call the Endocrine Department [phone] option #3. If you are unable to reach a nurse on the above phone line contact the nurse care line available 24 hours a day at [phone] Mailing address Luis Fernando Cho M.D. [address] [place] [id number] Mail Stop: [id number] ZEN PARTICIPATION SPECIALIST documented in this encounter Progress Notes Juan Cho MD - 10/06/2019 2:00 PM CST ENDOCRINOLOGY RETURN NOTE 10/06/2019 Marci Diaz 69 y.o. HPI: The patient returns for management of type 2 diabetes controlled ROS: As per HPI No current facility-administered medications for this visit. Allergies Allergen Reactions ??? Erythromycin Rash ??? Lisinopril Other, see comments Dry cough ??? Metformin Other, see comments and Nausea And Vomiting diarrhea P.E Filed Vitals: 10/06/19 1355 BP: 126/67 Pulse: 81 Weight: 286 lb 9.6 oz (130 kg) Estimated body mass index is 52.42 kg/m?? as calculated from the following: Height as of 09/16/18: 5' 2 (1.575 m). Weight as of this encounter: 286 lb 9.6 oz (130 kg). HEENT: NECK: LUNGS: CHEST: ABDOMEN: EXTREMITIES: no clubbing cyanosis or edema, pedal pulses present, vibrational sense intact NEURO: Disposition/hobbies/life stressors: ASSESSMENT/PLAN:: #1. ??Hypoglycemia/CGMS. ??In terms of the dexcom cgms: the patient is doing very well with a device. The patient is currently checking her blood sugars four 6 times a day. The patient is currently injecting insulin 6 to 7 times a day. The patient's insulin treatment regimen requires frequent adjustments based on blood sugars and C GMS device results. ?? #2. ??Hypertension. ??The patient may continue metoprolol, Lopressor and [place] ?? #3. ??Cholesterol. ??The patient may continue Crestor 20 mg once a day. ?? 4. Obesity. The patient has gained 10 lb since her last visit. The weight loss most likely result ofintermittent fasting which only consumes cause between 12 and a and make better choices in terms of carbohydrate. It effort to promote weight loss will also start ozempic in place of trulicity. Side effects was epic were discussed in detail. ?? #5. ??Type 2 diabetes controlled with coronary artery disease aortic valve replacement in chronic renal insufficiency the. ?? the patient's blood sugars have improved dramatically with weight loss and the dex com C GMS. The patient's most recent A1c is 7.1. The previous A1c was 6.9. ??a review of the records revealed the patient's kidney function 2017 was greater than 60 however is worsened ill to approximately 40 to. The exact cause is not clear the patient does have elevated micro creatinine ratioso could be to simply diabetes but will also the patient see renal to make sure of the missing anything there is no secondary to disorder. In effort to promote weight loss the patient may use of trulicity and then start ozempic in its place. The patient may continue the current regimen which consists of trulicity 1.5 mg once a week but when she use the medication up completely she may start ozempic 0.25 for 4 weeks then 0.5 for 4 weeks then 1.0. Side effects of medication were discussed in detail. Patient may continue basilar 50 units once a day and 10 units of Humalog with meals in a pre meal scale of 2 units per each 50 points the base 150 and 2 units per each 50 points with a base of 200 beforebed. Use up truclicity then start ozempic Will start ozempic(make sure they give you 0.25/0.5 mg pen rather than the 1 mg pen. 0.25 mg sc once weekly for 4 weeks, then 0.5 mg sc for four weeks, if tolerated increase to 1mg weekly in 1 month. Video tutorial on how to use ozempic. Https://www.ozempic.com/how-to-use/vap-ipvsyrg-mak.html Main side effect nausea and vomiting. If individuals can tolerate the medication for the first 4 weeks in almost all case the nausea goes away in individuals continue to lose weight and have excellent blood sugar control. Medication also decreases cardiovascular risk associated with diabetes. If blood sugars in am are less then 130 then decrease basaglar by 5 units a day If blood sugars drop after meals then decrease huamlog base with meals RETURN IN 4-6 MONTHS PRIOR TO RETURN OBTAIN LABS, non fasting labs 2 weeks prior to return visit. ?6. Planned colonoscopy. During partial fast low fiber continue current inulin regimen With clear liquids then decrease basaglar to 40 units a day, and you can continue trulicity, if lowsoccur consume 7up ?? Patient schedule return 6 months. Prior to return she will obtain labs for hemoglobin, hemoglobin A1c, microalbumin/creatinine ratio, ALT, direct LDL. Total time spent with the patient, 40 minutes, 35 minutes which was spent in education, discussion, answering all questions, and reviewing the above listed issues with the patient. Luis Fernando Cho MD This note created using speech-recognition software and may contain unintended word substitutions. documented in this encounter Plan of Treatment Upcoming Encounters Date Type Specialty Care Team Description 08/13/2022 Appointment Radiology Denise Aguirre APRN, TEMPERING OVEN OPERATOR [address] [place], [place] [address] (Wo rk) 08/13/2022 Appointment Hematology and Oncology Denise Aguirre APRN, TEMPERING OVEN OPERATOR [address] [place], [place] [address] (Wo rk) Scheduled Referrals Name Type Priority Associated Diagnoses Order S chedule Nephrology Referral Routine Controlled type 2 Ordered: 0 10/06/2019 Consult-Adults diabetes mellitus without complication, with long-term current use of insulin (HRC) documented as of this encounter Goals Goal Patient Goal Associated Recent Patient-Stated? Author Type Problems Progress Being active Diabetes Diabetes No Tere, Education Education Tanner A, RD, CDE Note: [...] documented as of this encounter Results TSH (02/13/2020 1:04 PM CDT) [facility] PharmAssistant Method Time Signature TSH, Sensitive 2.70 0.30 - 02/13/2020 [facility] 4.50 4:54 PM CDT CENTRAL [facility] uIU/mL Specimen Anatomical Collection Method / Collection Time Recei gil Time (Source) Location / Volume Laterality Blood Venipuncture / 02/13/2020 1:04 02/13/2020 1:04 Unknown PM CDT PM CDT Juan Cho MD LAB_1 Performing Organization Address City/State/ZIP Code Phon e Number [facility] C[facility]TRAL [facility] [address] [address] (ABNORMAL) Microalb / Creat Ratio (02/13/2020 1:04 PM CDT) [facility] PharmAssistant Method Time Signature Albumin, 151.7 mg/L 02[facility]14/2020 [facility], Random 12:45 PM CDT CEN[facility]AL LAB Creatinine, 186 >20 mg/dL 02/14/2020 [facility] U[facility], Random 12:45 PM CDT CENTRAL LAB Albumin/Creati 82 (H) <30 mg/g 02/14/2020 [facility] nine Ratio, 12:45 PM CDT CENTRAL LAB Urine, Random Specimen Anatomical Collection Method Collection Time Receive d Time (Source) Location / / Volume Laterality Urine Non-blood 02/13/2020 1:04 PM 0 1:04 Collection / CDT PM CDT Unknown Juan Cho MD LAB_1 Performing Organization Address [facility] CENTRAL LAB [address] [place] [phone] LDL Direct (02/13/2020 1:04 PM CDT) athologist Signature LDL, Direct 73 <=130 02/13/2020 [facility] mg/dL 4:37 PM CDT CENTRAL LAB Specimen Anatomical Collection Method / Collection Time Recei gil Time (Source) Location / Volume Laterality Blood Venipuncture / 02/13/2020 1:04 02/13/2020 1:04 Unknown PM CDT PM CDT Juan Cho MD LAB_1 Performing Organization Address [facility] CENTRAL LAB [address] [place] [id number] ALT (SGPT) (02/13/2020 1:04 PM CDT) athologist Signature ALT (SGPT) 21 0 - 55 U/L 02/13/2020 [facility] 4:37 PM CDT CENTRAL LAB Specimen Anatomical Collection Method / Collection Time Recei gil Time (Source) Location / Volume Laterality Blood Venipuncture / 02/13/2020 1:04 02/13/2020 1:04 Unknown PM CDT PM CDT Juan Cho MD LAB_1 Performing Organization Address [facility] CENTRAL LAB [address] [place] [id number] Hgb (02/13/2020 1:04 PM CDT) athologist Signature [...] e Number [facility] [address] [place] [address] (ABNORMAL) HgbA1c (02/13/2020 1:04 PM CDT) [facility] gist Method Time Signature Hemoglobin A1C 7.3 (H) <=5.6 % 02/13/2020 [facility] 4:48 PM CDT CENTRAL LAB Specimen Anatomical Collection Method / Collection Time Recei gil Time (Source) Location / Volume Laterality Blood Venipuncture / 02/13/2020 1:04 02/13/2020 1:04 Unknown PM CDT PM CDT Narrative [facility] C[facility] - 02/13/2020 4:48 PM CDT For patients not previously diagnosed with diabetes: 5.7-6.4%: Increased risk for diabetes 6.5% and greater: Diagnostic for diabete s For patients diagnosed with diabetes: <8.0%: Goal of therapy for ages 18-75 Clinicians may recommend a higher or low er goal for specific individuals. Juan Cho MD LAB_1 Performing Organization Address City/[facility]/ZIP Code Phon e Number [facility] [address] [address] documented in this encounter Visit Diagnoses Diagnosis Controlled type 2 diabetes mellitus with out complication, with long-term current use of insulin (HRC) - Primary Coronary artery disease involving hyd[place] coronary artery of [place] heart without angina pectoris (HRC) Essential hypertension (HRC) Unspecified essential hypertension Dyslipidemia, goal LDL below 100 (HRC) Other and unspecified hyperlipidemia Obesity, morbid, BMI 50 or higher (HRC) Malignant neoplasm of left breast in fem grey, estrogen receptor positive, unspecified site of breast (HRC) documented in this encounter Care Teams Regional Marketing Director Relationship Specialty Start Date End Date Elyse Paredes MD PCP - General Family Practice 03/19/17 [address] [address] documented as of this encounter
--- OUTSIDE RECORDS SUMMARY | 2022-07-02 13:52 | XMS_ITS | Encounter Summary ---
:1950 Author Organization [employer] Address [address] [place] [address] Care Team Providers Name Role Phone Elyse Paredes MD Primary Care Provider Reason for Visit Reason Comments Revisit Encounter Details Date Type Department Care Team Description 01/02/2020 [facility] Prasanna Rivera ase in creatinine (Primary Dx); 401 Nephrology MD Angelica Essential hypertension; [address] [facility] [place] [address] [place], [place] [phone] Social History Tobacco Use Types Packs/Day Years Used Date Smoking Tobacco: Former Cigarettes Quit : 08/02/1981 Smokeless Tobacco: Never Alcohol Use Standard Drinks/Week Comments No 0 (1 standard drink = 0.6 oz pure alcoho l) Sex Assigned at Date Recorded Not on file documented as of this encounter Patient Instructions Patient InstructionsPrasanna Rivera MD - 01/02/2020 11:00 AM CDT 1. The last kidney function was about the with a creatinine of 1.33. this would be consistent with aGFR of 41 ml/min. 2. The kidney function really did not change after stopping the celebrex, but since you do get some relief from the tylenol arthritis formula, keep taking that. Your liver should be able to safely tolerate 2 tablets of tylenol arthritis twice a day 2. Your uric acid was elevated at 8.3, which could put you at risk of having uric acid deposit in the joints and even cause joint pain and gout. It may come from a problem with the kidney eliminating uric acid - recommend starting a medication called allopurinol, at a low dose of 50 mg daily. - repeat your blood tests on or after February 11, and then follow up with me for a revisit to discuss documented in this encounter Progress Notes Prasanna Rivera MD - 01/02/2020 11:00 AM CDT Nephrology Video Follow up Visit Name: Marci Diaz : 1950 DATE OF SERVICE: 01/02/2020 NAME OF REQUESTING PHYSICIAN: Elyse Paredes MD REASON FOR VISIT:follow up abnormal kidney function, joint pains, hyperuricemia, hypertension Encounter Diagnoses 1. Increase in creatinine 2. Essential hypertension (HRC) 3. Hyperuricemia ASSESSMENT/ PLAN: 1. Her serum creatinine remains 1.33, eGFR 41 ml/min, despite stopping celebrex. She likely has hypertensive kidney disease. 2. Despite a history of diabetes, she does not have apparent albuminuria presently. Her Screen in September was negative, and 1 year ago her screen was negative. About 2 years ago her urine microalb/cr ratio was high at 63 mg/g. 3. Hyperuricemia - this could be responsible for some of her joint complaints. She does not have classic gout symptoms. Her RF and CRP are normal. Recommend allopurinol 50 mg daily. Avoid celebrex. Take Tylenol arthritis prn Orders Placed This Encounter ??? Basic Metabolic Panel ??? Uric Acid ??? allopurinol (ZYLOPRIM) 100 MG tablet Patient Instructions 1. The last kidney function was about the with a creatinine of 1.33. this would be consistent with aGFR of 41 ml/min. 2. The kidney function really did not change after stopping the celebrex, but since you do get some relief from the tylenol arthritis formula, keep taking that. Your liver should be able to safely tolerate 2 tablets of tylenol arthritis twice a day 2. Your uric acid was elevated at 8.3, which could put you at risk of having uric acid deposit in the joints and even cause joint pain and gout. It may come from a problem with the kidney eliminating uric acid - recommend starting a medication called allopurinol, at a low dose of 50 mg daily. - repeat your blood tests on or after February 11, and then follow up with me for a revisit to discuss Thank you for allowing me to participate in the care of this pt. I will follow her closely with you. I spent 22 minutes video face to face time with the patient, evaluating, discussing findings, and coordinating a care plan. Additional 5 minutes were spent on lab orders and preparation of the AVS she will return to the clinic in 6 weeks Prasanna Rivera MD Nephrology HISTORY OF PRESENTING ILLNESS: Thank you for allowing me to participate in the care of Ms. Marci Diaz She was evaluated during a [...] acid was high at 8.3. She reports she still has some joint pains. At her initial visit several weeks ago, I had her stop the celebrex entirely. Her creatinine was 1.33 on the lab from 12/20. Prior to that the creatinine was 1.31. She reports that she also has some achiness of the joints, mostly in the hand and wrists and shoulder. She also has some DIP nodularity. She has been taking tylenol arthritis ES 2 tablets BID. She still takes chlorthaildone. She has mild edema that is not really too much of a problem recently Her uric acid is 8.3 I reviewed her prior labs. Her creatinine was 1.65 in September, 1.43 in June, 1.32 in August of 2018, and 1.17 in May 2018. She had a pre-colonoscopy creatinine of 1.65 with eGFR of 37 ml/min. She has diabetes, hypertension, and severe arthritis. She also has CAD s/p LAD stent and a history of TAVR. She has been on losartan for hypertension. She also takes chlorthalidone 25 mg daily, [...] LAD stent in May of 2017 at [facility]. She also underwent TAVR procedure in July [...] recommended probably 5-6 years of therapy. She was taking celebrex for aches and pains. She reports that last fall her PCP tried to stop celebrex, but she could not tolerate being off of it for long. She was taking prescription strength advil for years prior to that. She has pain in the joints in her fingers and has also developed shoulder pain and elbow pain. She had a Rheumatology consultation in 2000 at [facility]. At that time she had and elevated CRP and positive RF, but did not have joint swelling and the Tractor Distributor said he could not make the diagnosis of RA given the short length of time that the symptoms had been present. At her initial visit I had her get labs and the RF was normal and CRP was normal. About 10 years ago she had Kidney stones. She has seen Dr. Johns of the [facility] in the past. PAST MEDICAL HISTORY: Past Medical History: Diagnosis Date ??? A-fib (HRC) ??? Breast cancer (HRC) 2018 [facility] - radiation ??? CAD (coronary artery disease) (HRC) JEFFERSON to LAD ??? HTN (hypertension) (HRC) ??? Hx of total knee arthroplasty Left knee ??? Hyperlipidemia (HRC) ??? Nephrolithiasis ??? DEDE on CPAP ??? S/P TAVR (transcatheter aortic valve replacement) 07/2017, [facility] ??? Uncontrolled type 2 diabetes mellitus, with long-term current use of insulin ([facility]) 03/19/2017 ALLERGIES: is allergic to erythromycin; lisinopril; [...] Last attempt to quit: 08/02/1981 Years since quittin.4 ??? Smokeless tobacco: Never Used Substance and Sexual Activity ??? Alcohol use: No ??? Drug use: Not on file ??? Sexual activity: Not on file Lifestyle ??? Physical activity Days per week: Not on file Minutes per session: Not on file ??? Stress: Not on file Relationships ??? Social connections Talks on phone: Not on file Gets together: Not on file Attends cheondoism service: Not on file Active member of [...] History Narrative ??? Not on file MEDICATIONS: amoxicillin (AMOXIL) 500 MG capsule, Take 500 mg by mouth., Disp: , Rfl: anastrozole (ARIMIDEX) 1 MG tablet, Take 1 Tablet by mouth daily., Disp: 90 Tablet, Rfl: 3 aspirin, enteric-coated 81 MG enteric coated tablet, Take 1 Tab by mouth daily., Disp: 90 Tab, Rfl: 3 chlorthalidone (HYGROTON) 25 MG tablet, Take 1 Tablet by mouth daily., Disp: 30 Tablet, Rfl: 11 Continuous Blood Gluc Crane Operator (DEXCOM G6 EQUIPMENT INSPECTOR) [facility], Use as directed for continuous glucose monitoring., Disp: 1 Device, Rfl: 0 Continuous Blood Gluc Sensor (DEXCOM G6 SENSOR) [facility], Use as directed for continuous glucose monitoring. Change sensor every 10 days., Disp: 3 Each, Rfl: 5 Continuous Blood Gluc Transmit (DEXCOM G6 TRANSMITTER) [facility], Use as directed for continuous glucose monitoring. [...] mouth daily., Disp: 90 Tab, Rfl: 3 semaglutide (OZEMPIC, 0.25/0.5 MG/DOSE,) 2 MG/1.5ML injection, 0.25 mg sc once weekly for 4 weeks, then 0.5 mg sc for two weeks, Disp: 1.5 mL, Rfl: 11 sertraline (ZOLOFT) 100 MG tablet, Take 1/2 tab daily, Disp: , Rfl: warfarin (COUMADIN) 2.5 MG tablet, TAKE 1 TABLET BY MOUTH EVERY DAY, Disp: , Rfl: REVIEW OF SYSTEMS: As per HPI. + joint pains. PHYSICAL EXAM: Video Visit GEN in NAD Hands there are DIP changes, nodules B hands. LABS: I personally reviewed the findings with the patient. Renal panel: Lab Results Component Value Date/Time SODIUM 140 12/21/2019 12:30 PM K 3.8 12/21/2019 12:30 PM CHLORIDE 101 12/21/2019 12:30 PM BUN 28 (H) 12/21/2019 12:30 PM CREATININE 1.33 (H) 12/21/2019 12:30 PM GFR 48 (L) 12/21/2019 12:30 PM GFR 41 (L) 12/21/2019 12:30 PM GLUCOSE 127 (H) 12/21/2019 12:30 PM CA 9.9 12/21/2019 12:30 PM ANIONGAP 11 12/21/2019 12:30 PM Lab Results Component Value Date/Time CREATININE 1.33 (H) 12/21/2019 12:30 PM CREATININE 1.31 (H) 11/21/2018 12:56 PM CREATININE 0.98 03/19/2017 01:51 PM CBC: Lab Results Component Value Date/Time HGB 12.8 12/21/2019 12:30 PM Urinalysis: No results found for: ULEUK, UNITR, UPH, UPRO, UGLUC, UKET, UBLD, URBCS, UWBC, UEPI, UBACT, UCAST HbA1C: Hemoglobin A1C (%) Date Value 12/21/2019 7.6 (H) 11/21/2018 8.3 (H) Urine microalbumin/creatinine ratio: Ratio (mg/g creatinine) Date Value 03/19/2017 63 (H) Microalb/Creat Ratio, Urine Random (mg/g) Date Value 12/21/2019 15 11/21/2018 6 Urine protein/creatinine ratio: No results found for: TPCREAT Intact PTH: No results found for: IPTH 25-OH vitamin D: No results found for: VTD25 See above for A/P Prasanna Rivera MD documented in this encounter Plan of Treatment Upcoming Encounters Date Type Specialty Care Team Description 08/13/2022 Appointment Radiology Denise Aguirre APRN, END POLISHER [address] [place], [place] [address] (Wo rk) 08/13/2022 Appointment Hematology and Oncology Denise Aguirre APRN, END POLISHER [address] [place], [place] [address] (Wo rk) documented as [...] of this encounter Results (ABNORMAL) Uric Acid (02/13/2020 1:04 PM CDT) athologist Signature Uric Acid 8.1 (H) 2.6 - 6.0 02/13/2020 [facility] mg/dL 4:37 PM CDT [facility] Specimen Anatomical Collection Method / Collection Time Recei gil Time (Source) Location / Volume Laterality Blood Venipuncture / 02/13/2020 1:04 02/13/2020 1:04 Unknown PM CDT PM CDT Prasanna Rivera MD LAB_1 Performing Organization Address City/State/ZIP Code Phon e Number [facility] [address] [address] (ABNORMAL) Basic Metabolic Panel (02/13/2020 1:04 PM CDT) [facility] gist Method Time Signature Sodium 140 136 - 145 02/13/2020 [facility] mmol/L 4:37 PM CDT [facility] Potassium 4.0 3.5 - 5.1 02/13/2020 [facility] mmol/L 4:37 PM CDT [facility] Chloride 100 98 - 109 02/13/2020 [facility] mmol/L 4:37 PM CDT [facility] CO2 29 20 - 29 02/13/2020 [facility] mmol/L 4:37 PM CDT [facility] Anion Gap 11 7 - 16 02/13/2020 [facility] mmol/L 4:37 PM CDT [facility] Calcium 9.6 8.4 - 02/13/2020 [facility] 10.4 4:37 PM CDT [facility] mg/dL BUN 27 (H) 7 - 26 02/13/2020 [facility] mg/dL 4:37 PM CDT [facility] Creatinine 1.24 (H) 0.55 - 02/13/2020 [facility] 1.02 4:37 PM CDT [facility]AL [facility] mg/dL GFR, Estimated 45 (L) >60 02/13/2020 [facility] mL/min/1. 4:37 PM CDT [facility] 73m2 Glucose 188 (H) 70 - 100 02/13/2020 [facility] mg/dL 4:37 PM CDT [facility] Comment: [...] 1:04 Unknown PM CDT PM CDT Narrative [facility] - 02/13/2020 4:37 PM CDT [...] Organization Address City/State/ZIP Code Phon e Number [facility] [address] [address] [facility] [address] [place] [id number] [place] [address] LABORATORY documented in this encounter Visit Diagnoses Diagnosis Increase in creatinine - Primary Essential hypertension (HRC) Unspecified essential hypertension Hyperuricemia Other abnormal blood chemistry documented in this encounter Care Teams Accelerator Systems Director Relationship Specialty Start Date End Date Elyse Paredes MD PCP - General Family Practice 03/19/17 [address] [place] [address] documented as of this encounter
--- OUTSIDE RECORDS SUMMARY | 2022-07-02 13:52 | XMS_ITS | Encounter Summary ---
:1950 Author Organization [employer] Address [address] [place] [id number] Care Team Providers Name Role Phone Elyse Paredes MD Primary Care Provider Reason for Visit Procedure/Equipment (Routine) - Incomplete Specialty Diagnoses / Procedures Referred By Contact Refer red To Contact Diagnoses Malignant neoplasm of left breast in female, estrogen receptor positive, unspecified site of breast (HRC) History of lumpectomy of left breast Left breast lump Elisa Madrid, Procedures US Breast Lt [facility] [address] [place] [address] Referral ID Status Reason Start Date Expiration Date Visits V isits Requested Authorized [id number] Incomplete 11/03/2019 02/01/2021 1 1 Encounter Details Date Type Department Care Team Description 11/07/2019 [facility] Jahagirdar, Malignant yash plasm of left breast in female, estrogen receptor positive, unspecified site of breast (HRC); Procedure [facility] History of lumpectomy of left breast; [address] [facility]. [address] [facility] [place] [place] [phone] Social History Tobacco Use Types Packs/Day Years [...] Team Description 08/13/2022 Appointment Radiology Denise Aguirre, SET OFF PRESS OPERATOR, FINANCIAL SERVICES EDUCATION CONSULTANT [address] [place], [place] [address] (Wo rk) 08/13/2022 Appointment Hematology and Oncology Denise Aguirre, SET OFF PRESS OPERATOR, FINANCIAL SERVICES EDUCATION CONSULTANT [address] [place], [place] [address] (Wo rk) documented as [...] Priority Date/Time Associated Diagnosis Comme nts MM US BREAST LT Routine 11/07/2019 8:31 AM Malignant neoplasm of Results for this CDT left breast in procedure are in female, estrogen the results receptor positive, section. unspecified site of breast (HRC) History of lumpectomy of left breast Left breast lump documented in this encounter Results MM US Breast Lt (11/07/2019 8:31 AM CDT) Anatomical Region Laterality Modality Breast Left Ultrasound Specimen (Source) Anatomical Collection Method Collection Time Re ceived Time Location / / Volume Laterality 11/07/2019 8:31 AM CDT Narrative 11/07/2019 9:43 AM CDT EXAM: MM US BREAST LT LOCATION: [facility] DATE/TIME: 11/07/2019 8:31 AM INDICATION: 69-year-old [...] nual screening mammography is recommended. Procedure Note Estrella Wiggins MD - 11/07/2019Format ting of this note might be different from the original. EXAM: MM US BREAST LT LOCATION: [facility] DATE/TIME: 11/07/2019 8:31 AM INDICATION: 69-year-old [...] breast documented in this encounter Care Teams Jukebox Routeman Relationship Specialty Start Date End Date Elyse Paredes MD PCP - General Family Practice 03/19/17 [address] [place] [address] documented as of this encounter
--- OUTSIDE RECORDS SUMMARY | 2022-07-02 13:52 | XMS_ITS | Encounter Summary ---
:1950 Author Organization [employer] Address [address], [place] [address] Care Team Providers Name Role Phone Elyse Paredes MD Primary Care Provider Encounter Details Date Type Department Care Team Description 07/17/2019 Orders Only External to Elyse Paredes MD [address] [place], [place] [address] (Wo rk) Social History [...] Team Description 08/13/2022 Appointment Radiology Denise Aguirre, HOUSE SUPERVISOR, DIET THERAPIST [address] [place], [place] [address] (Wo rk) 08/13/2022 Appointment Hematology and Oncology Denise Aguirre APRN, DIET THERAPIST [address] [place], [place] [address] (Wo rk) documented as [...] Date/Time Associated Diagnosis Comme nts [facility] 07/17/2019 12:00 AM Results for this AQUACULTURE PROGRAM DIRECTOR procedure are i n the results section . documented in this encounter Results [facility] (07/17/2019 12:00 AM AQUACULTURE PROGRAM DIRECTOR) Specimen (Source) Anatomical Location Collection Method / Collectio n Time Received Time / Laterality Volume 07/17/2019 Narrative This result has an attachment that is no t available. Elyse Paredes MD LAB_1 documented in this encounter Visit Diagnoses Not on filedocumented in this encounter Care Teams Tax Appraiser Relationship Specialty Start Date End Date Elyse Paredes MD PCP - General Family Practice 03/19/17 [address] [place] [address] documented as of this encounter
--- OUTSIDE RECORDS SUMMARY | 2022-07-02 13:52 | XMS_ITS | Encounter Summary ---
:1950 Author Organization [employer] Address [address] [place] [address] Care Team Providers Name Role Phone Elyse Paredes MD Primary Care Provider Encounter Details Date Type Department Care Team Description 12/21/2019 Lab Visit [facility]ty [facility] Controll ed type 2 diabetes mellitus without complication, with long-term current use of insulin (HRC); Laboratory Increase in creatinine; [address] Essential hypertension; [place] [address] NSAID long-term use; [phone] Osteoarthritis, unspecified osteoarthritis type, unspecified site; Paroxysmal atri al fibrillation (HRC) Social History Tobacco Use Types Packs/Day Years Used Date Smoking Tobacco: Former Cigarettes Quit : 08/02/1981 Smokeless Tobacco: Never Alcohol Use Standard Drinks/Week Comments No 0 (1 standard drink = 0.6 oz pure alcoho l) Sex Assigned at Date Recorded Not on file documented as of this encounter Progress Notes Edelmira Cisneros RN - 12/21/2019 12:30 PM CDT 01/01 previsit labs. Edelmira Cisneros RN 12/26/2019, 12:16 PM Prasanna Rivera MD - 12/21/2019 12:30 PM CDT Results reviewed: the creatinine remains about the same, at 1.33, and it was 1.31 previously. Estimated GFR is 41 ml/min. The potassium and sodium are normal. Rheumatoid factor is normal. The C reactive protein is normal Uric acid is high, which could cause gout and joint pains. We have an appt next Wednesday to discuss Prasanna Rivera MD documented in this encounter Plan of Treatment Upcoming Encounters Date Type Specialty Care Team Description 08/13/2022 Appointment Radiology Denise Aguirre, CLOTH COVERED HELMET PULLER, REAL ESTATE CLERK [address] [place], [place] [address] (Wo rk) 08/13/2022 Appointment Hematology and Oncology Denise Aguirre, CLOTH COVERED HELMET PULLER, REAL ESTATE CLERK [address] [place], [place] [address] (Wo rk) documented as [...] Associated Diagnosis Comme nts LDL CHOLESTEROL, Routine 12/21/2019 12:30 Controlled type 2 Re sults for this DIRECT MEASURED PM CDT diabetes mellitus procedu re are in without complication, the re sults with long-term current secti on. use of insulin (HRC) BASIC METABOLIC Routine 12/21/2019 12:30 Increase in cre atinine Results for this PANEL PM CDT Essential hypert ension procedure are in NSAID long-term use the results Osteoarthritis, section. unspecified osteoarthritis type, unspecified site HEMOGLOBIN, BLOOD Routine 12/21/2019 12:30 Controlled type 2 R esults for this PM CDT diabetes mellitus procedure are in without complication, the re sults with long-term current secti on. use of insulin (HRC) ALBUMIN/CREAT RATIO Routine 12/21/2019 12:30 Controlled type 2 Results for this PM CDT diabetes mellitus procedure are in without complication, the re sults with long-term current secti on. use of insulin (HRC) RHEUMATOID FACTOR, Routine 12/21/2019 12:30 Increase in creatinine Results for this QUANT PM CDT Essential hypert ension procedure are in NSAID long-term use the results Osteoarthritis, section. unspecified osteoarthritis type, unspecified site C-REACTIVE PROTEIN Routine 12/21/2019 12:30 Increase in creatinine Results for this PM CDT Essential hypert ension procedure are in NSAID long-term use the results Osteoarthritis, section. unspecified osteoarthritis type, unspecified site HGB A1C Routine 12/21/2019 12:30 Controlled type 2 Result s for this PM CDT diabetes mellitus procedure are in without complication, the re sults with long-term current secti on. use of insulin (HRC) URIC ACID Routine 12/21/2019 12:30 Increase in cre atinine Results for this PM CDT Essential hypert ension procedure are in NSAID long-term use the results Osteoarthritis, section. unspecified osteoarthritis type, unspecified site ALT (SGPT) Routine 12/21/2019 12:30 Controlled type 2 Result s for this PM CDT diabetes mellitus procedure are in without complication, the re sults with long-term current secti on. use of insulin (HRC) INR/PROTIME Routine 12/21/2019 12:30 Paroxysmal atrial Result s for this PM CDT fibrillation (HRC) procedure are in the results section. documented in this encounter Results (ABNORMAL) INR/Protime (12/21/2019 12:30 PM CDT) P athologist Signature Protime 20.3 (H) 11.8 - 14.6 12/21/2019 [facility] Seconds 2:17 PM CDT [facility] INR 1.8 (H) 0.9 - 1.1 12/21/2019 [facility] 2:17 PM CDT [facility] Specimen [...] Phon e Number [facility]TY [facility] [address] [place] [address] (ABNORMAL) Uric Acid (12/21/2019 12:30 PM CDT) P athologist Signature Uric Acid 8.3 (H) 2.6 - 6.0 12/21/2019 [facility] mg/dL 7:32 PM CDT CEN[facility]AL [facility] Specimen Anatomical Collection Method / Collection Time Recei gil Time (Source) Location / Volume Laterality Blood Venipuncture / 12/21/2019 12:30 0 Unknown PM CDT 12:30 PM CDT Prasanna Rivera MD LAB_1 Performing Organization Address City/State/ZIP Code Phon e Number PENDING SALE [facility] CENTRAL LAB [address] [address] (ABNORMAL) Basic Metabolic Panel (12/21/2019 12:30 PM CDT) Patholo gist Method Time Signature Sodium 140 136 - 145 12/21/2019 [facility] mmol/L 6:21 PM CDT CENTRAL LAB Potassium 3.8 3.5 - 5.1 12/21/2019 [facility] mmol/L 6:21 PM CDT CEN[facility]AL LAB Chloride 101 98 - 109 12/21/2019 [facility] mmol/L 6:21 PM CDT CEN[facility]AL LAB CO2 28 20 - 29 12/21/2019 [facility] mmol/L 6:21 PM CDT C[facility] Anion Gap 11 7 - 16 12/21/2019 [facility] mmol/L 6:21 PM CDT CEN[facility]AL [facility] Calcium 9.9 8.4 - 12/21/2019 [facility] 10.4 6:21 PM CDT CENTRAL LAB mg/dL BUN 28 (H) 7 - 26 12/21/2019 [facility] mg/dL 6:21 PM CDT CEN[facility]AL LAB Creatinine 1.33 (H) 0.55 - 12/21/2019 [facility] 1.02 6:21 PM CDT CENTRAL LAB mg/dL GFR, Estimated 41 (L) >60 12/21/2019 [facility] mL/min/1. 6:21 PM CDT CENTRAL LAB 73m2 GFR, Est If 48 (L) >60 12/21/2019 [facility] mL/min/1. 6:21 PM CDT CENTRAL LAB Libyan 73m2 Glucose 127 (H) 70 - 100 12/21/2019 [facility] mg/dL 6:21 PM CDT CENTRAL LAB Comment: [...] Unknown PM CDT 12:30 PM CDT Narrative [facility] - 12/21/2019 6:21 PM CDT [...] Organization Address City/State/ZIP Code Phon e Number P[facility] C[facility]AL LAB [address] [address] SPECIALTY [facility] [place] [phone] [place] [address] LABORATORY C-Reactive Protein (12/21/2019 12:30 PM CDT) [facility] Method Time Signature C-Reactive 0.4 0.0 - 0.7 12/22/2019 [facility] Protein mg/dL 4:17 PM CDT CENTRAL LAB Specimen Anatomical Collection Method / Collection Time Recei gil Time (Source) Location / Volume Laterality Blood Venipuncture / 12/21/2019 12:30 0 Unknown PM CDT 12:30 PM CDT Prasanna Rivera MD LAB_1 Performing Organization Address [facility]/ZIP Code Phon e Number PENDING S[facility] CENTRAL LAB [address] [place] [address] Rheumatoid Factor, Quant (12/21/2019 12:30 PM CDT) [facility] gist Method Time Signature Rheumatoid <15 <=30 12/21/2019 [facility] Factor, IU/mL 6:21 PM CDT CENTRAL LAB Quantitative Specimen Anatomical Collection Method / Collection Time Recei gil Time (Source) Location / Volume Laterality Blood Venipuncture / 12/21/2019 12:30 0 Unknown PM CDT 12:30 PM CDT Prasanna Rivera MD LAB_1 Performing Organization Address [facility]/ZIP Code Phon e Number PEND[facility] [address] [place] [address] Hgb (12/21/2019 12:30 PM CDT) P athologist Signature Hemoglobin 12.8 12.0 - 15.5 12/21/2019 [facility] g/dL 2:18 PM CDT [facility] Specimen Anatomical Collection Method / Collection Time Recei gil Time (Source) Location / Volume Laterality Blood Venipuncture / 12/21/2019 12:30 0 Unknown PM CDT 12:30 PM CDT Juan Cho MD LAB_1 Performing Organization Address City/[facility]/ZIP Code Phon e Number [facility] [address] [place] [address] (ABNORMAL) HgbA1c (12/21/2019 12:30 PM CDT) [facility] gist Method Time Signature Hemoglobin A1C 7.6 (H) <=5.6 % 12/21/2019 [facility] 4:46 PM CDT CENTRAL LAB Specimen Anatomical Collection Method / Collection Time Recei gil Time (Source) Location / Volume Laterality Blood Venipuncture / 12/21/2019 12:30 0 Unknown PM CDT 12:30 PM CDT Narrative [facility] - 12/21/2019 4:46 PM CDT For patients not previously diagnosed with diabetes: 5.7-6.4%: Increased risk for diabetes 6.5% and greater: Diagnostic for diabete s For patients diagnosed with diabetes: <8.0%: Goal of therapy for ages 18-75 Clinicians may recommend a higher or low er goal for specific individuals. Juan Cho MD LAB_1 Performing Organization Address [facility] Phon e Number PEND[facility] [address] [address] ALT (SGPT) (12/21/2019 12:30 PM CDT) P athologist Signature ALT (SGPT) 18 0 - 55 U/L 12/21/2019 [facility] 6:21 PM CDT CENTRAL LAB Specimen Anatomical Collection Method / Collection Time Recei gil Time (Source) Location / Volume Laterality Blood Venipuncture / 12/21/2019 12:30 0 Unknown PM CDT 12:30 PM CDT Juan Cho MD LAB_1 Performing Organization Address [facility] Phon e Number [facility] [address] [address] Microalb / Creat Ratio (12/21/2019 12:30 PM CDT) Patholo gist Method Time Signature Albumin, 29.2 mg/L 12/21/2019 [facility] Urine, Random 6:41 PM CDT CENTRAL LAB Creatinine, 198 >20 mg/dL 12/21/2019 [facility] Urine, Random 6:41 PM CDT CENTRAL LAB Albumin/Creati 15 <30 mg/g 12/21/2019 [facility] nine Ratio, 6:41 PM CDT CENTRAL LAB Urine, Random Specimen Anatomical Collection Method Collection Time Receive d Time (Source) Location / / Volume Laterality Urine,random 12/21/2019 12:30 12/21/2019 PM CDT 12:30 PM CDT Juan Cho MD LAB_1 Performing Organization Address [facility] Phon e Number PEND[facility] [address] [address] LDL Direct (12/21/2019 12:30 PM CDT) P athologist Signature LDL, Direct 99 <=130 12/21/2019 [email or web address] mg/dL 6:21 PM CDT CENTRAL LAB Specimen Anatomical Collection Method / Collection Time Recei gil Time (Source) Location / Volume Laterality Blood Venipuncture / 12/21/2019 12:30 0 Unknown PM CDT 12:30 PM CDT Juan Cho MD LAB_1 Performing Organization Address City/State/ZIP Code Phon e Number [email or web address] [address] [address] documented in this encounter Visit Diagnoses Diagnosis Controlled type 2 diabetes mellitus with out complication, with long-term current use of insulin (HRC) Increase in creatinine Essential hypertension (HRC) Unspecified essential hypertension NSAID long-term use Encounter for long-term (current) use of non-steroidal anti-inflammatories Osteoarthritis, unspecified osteoarthrit is type, unspecified site Paroxysmal atrial fibrillation (HRC) Atrial fibrillation documented in this encounter Care Teams Set Up Mold Technician Relationship Specialty Start Date End Date Elyse Paredes MD PCP - General Family Practice 03/19/17 [address] [address] documented as of this encounter
--- OUTSIDE RECORDS SUMMARY | 2022-07-02 13:52 | XMS_ITS | Encounter Summary ---
:1950 Author Organization [employer] Address [address] [place] [address] Care Team Providers Name Role Phone Elyse Paredes MD Primary Care Provider Reason for Referral Procedure/Equipment (Routine) - Incomplete Specialty Diagnoses / Procedures Referred By Contact Refer red To Contact Procedures Elyse Paredes MD MM Mammogram Screening Bilat [address] [place] [address] Referral ID Status Reason Start Date Expiration Date Visits V isits Requested Authorized [id number] Incomplete 07/21/2019 10/19/2020 1 1 L LACER AND TRUER Reason for Visit Procedure/Equipment (Routine) - Incomplete Specialty Diagnoses / Procedures Referred By Contact Refer red To Contact Procedures Elyse Paredes MD MM Mammogram Screening Bilat [address] [place] [address] Referral ID Status Reason Start Date Expiration Date Visits V isits Requested Authorized [id number] Incomplete 07/21/2019 10/19/2020 1 1 Encounter Details Date Type Department Care Team Description 07/21/2019 Ancillary Procedure [facility] Elyse Paredes MD Center [address] [place] [address] [place] [address] [phone] Social History Tobacco Use Types Packs/Day Years [...] Team Description 08/13/2022 Appointment Radiology Denise Aguirre, SCHOOL BASED THERAPIST, FRAUD PREVENTION ANALYST [address] [place], [place] [address] (Wo rk) 08/13/2022 Appointment Hematology and Oncology Denise Aguirre, SCHOOL BASED THERAPIST, FRAUD PREVENTION ANALYST [address] [place], [place] [address] (Wo rk) documented as [...] Associated Diagnosis Comme nts MM MAMMOGRAM Routine 07/21/2019 2:05 PM Results f or this SCREENING BILAT W WHEEL LACER AND TRUER procedure are in 3D BRAVO W CAD the results section. documented in this encounter Results MM Mammogram Screening Bilat W 3D Bravo W CAD (07/21/2019 2:05 PM WHEEL LACER AND TRUER) Anatomical Region Laterality Modality Breast Bilateral Mammography Specimen (Source) Anatomical Location Collection Method / Collectio n Time Received Time / Laterality Volume Impressions 07/21/2019 2:11 PM WHEEL LACER AND TRUER : ACR BI-RADS Category 2: Benign RECOMMENDATION: Follow Up Imaging in 12 months - Bilateral The results and recommendations of this examination will be communicated to the patient. Narrative 07/21/2019 2:11 PM WHEEL LACER AND TRUER MM MAMMOGRAM SCREENING BILAT W 3D BRAVO W CAD performed on 07/21/19 Compared to: 07/19/2018 MM Mammogram Scr eening Bilat W CAD, 03/27/2015 Foreign Image(S) Mammogram Bilateral Scr eening, and 07/27/2013 Foreign Image(S) Mammogram Bilateral Screening FINDINGS: Bilateral screening mammogram was performed with the assistance of Computer-Aided Detection and breast t omosynthesis. The breasts have scattered areas of fibroglandular densit y. There are breast conservation changes on the left. There is no radiographic evidence of mal ignancy. ?? Elyse Paredes MD RAD NILAM documented in this encounter Visit Diagnoses Not on filedocumented in this encounter Care Teams Deep Tissue Massage Therapist Relationship Specialty Start Date End Date Elyse Paredes MD PCP - General Family Practice 03/19/17 [address] [place] [address] documented as of this encounter
--- OUTSIDE RECORDS SUMMARY | 2022-07-02 13:53 | XMS_ITS | Encounter Summary ---
:1950 Author Organization [employer] Address [address] [place] [address] Care Team Providers Name Role Phone Elyse Paredes MD Primary Care Provider Reason for Visit Reason Comments Supplies Encounter Details Date Type Department Care Team Description 03/08/2019 Telephone Specialty Center [address] Freya Cho MD Supplies Endocrinology Clinic [address] [place] [address] [place] [address] [phone] Social History Tobacco Use Types Packs/Day Years Used Date Smoking Tobacco: Former Cigarettes Quit : 08/02/1981 Smokeless Tobacco: Never Alcohol Use Standard Drinks/Week Comments No 0 (1 standard drink = 0.6 oz pure alcoho l) Sex Assigned at Date Recorded Not on file documented as of this encounter Nursing Notes Jacquelyn Matos RN - 03/09/2019 3:12 PM CDT Spoke with rn care managerErnesto. States that pt's insurance does not cover at [facility] A pharmacy along. Needs a new Rx for Dexcom transmitters, sensors, and medical program specialist to [facility]. 3 Rxs were sent to pharmacy requested. No further questions or concerns. Jacquelyn Matos RN 03/09/2019, 3:14 PM Ofelia Wells - 03/09/2019 8:15 AM CDT Ernesto returning phone call. Please contact [phone] back. Ofelia Wells Jacquelyn Matos RN - 03/08/2019 4:27 PM CDT Left message for Ernesto to call back. Jacquelyn Matos RN 03/08/2019, 4:27 PM Afsaneh Osborne - 03/08/2019 3:34 PM CDT Miscellaneous Questions & FYI's [[facility]r Cylinder Heads: If this call is after 3 p.m., communicate to patient: If we are not able to get back to you by the end of the day and your symptoms worsen please contact the Careline at [phone] OR at .] Is this a symptom? No What is your question or concern? Yeny Green, Care Cordinator, at pt Primary Care Clinic, needs New Prescription for pt G 6 Transmitter, quanity 1, change every 90 days, 1 refill, G 6 Sensors., quanity of 3, change every 10 days,5 refills, pt Insurance changed , so Dr Cho nurse needs to call Yeny Green first before ordering her supplies, at [phone], Thanks Have you recently been seen for this? unknown Is it okay to leave a detailed message on your voicemail? unknown Afsaneh Osborne documented in this encounter Plan of Treatment Upcoming Encounters Date Type Specialty Care Team Description 08/13/2022 Appointment Radiology Denise Aguirre, MANAGER ENTERPRISE CONTENT MANAGEMENT, SAFETY AND OCCUPATIONAL HEALTH MANAGER [address] [place], [place] [address] (Wo rk) 08/13/2022 Appointment Hematology and Oncology Denise Aguirre APRN, SAFETY AND OCCUPATIONAL HEALTH MANAGER [address] [place], [place] [address] (Wo rk) [...] on filedocumented in this encounter Care Teams Stereoptic Projection Topographer Relationship Specialty Start Date End Date Elyse Paredes MD PCP - General Family Practice 03/19/17 [address] [place] [address] documented as of this encounter
--- OUTSIDE RECORDS SUMMARY | 2022-07-02 13:53 | XMS_ITS | Encounter Summary ---
:1950 Author Organization [facility] Address [address] [place] [address] Care Team Providers Name Role Phone Elyse Paredes MD Primary Care Provider Encounter Details Date Type Department Care Team Description 11/28/2018 Office Visit [facility] Suzie Gerardo at [facility] MD [facility] [address] [address] [place] [address] [phone] Social History Tobacco Use Types Packs/Day Years [...] Team Description 08/13/2022 Appointment Radiology Denise Aguirre, ANIMATION DIRECTOR, PATTERN CUTTER [address] [place], [place] [address] (Wo rk) 08/13/2022 Appointment Hematology and Oncology Denise Aguirre APRN, PATTERN CUTTER [address] [place], [place] [address] (Wo rk) documented as [...] on filedocumented in this encounter Care Teams Circulation Clerk Relationship Specialty Start Date End Date Elyse Paredes MD PCP - General Family Practice 03/19/17 [address] [place] [address] documented as of this encounter
--- OUTSIDE RECORDS SUMMARY | 2022-07-02 13:53 | XMS_ITS | Encounter Summary ---
:1950 Author Organization [employer] Address [address] [place] [address] Care Team Providers Name Role Phone Elyse Paredes MD Primary Care Provider Reason for Visit Reason Onset Date Comments Refill 05/09/2019 B-D UF III MINI PEN NEEDLES 31G X 5 MM needle Encounter Details Date Type Department Care Team Description 05/09/2019 Refill Specialty Center [address] Juan Zaragoza, Refill (B-D UF III MINI Endocrinology Clinic PEN NEEDLES 31G X [address] needle) [place] [address] [place], [place] [phone] (Wo rk) Social History Tobacco Use Types Packs/Day Years Used Date Smoking Tobacco: Former Cigarettes Quit : 08/02/1981 Smokeless Tobacco: Never Alcohol Use Standard Drinks/Week Comments No 0 (1 standard drink = 0.6 oz pure alcoho l) Sex Assigned at Date Recorded Not on file documented as of this encounter Nursing Notes Lou Ariza, PAYTON - 05/09/2019 4:14 PM CDT Completed per physician's orders. Lou Ariza RN 4:14 PM 05/09/2019 Interface, Out Surescripts Prov Query - 05/09/2019 10:21 AM CDT B-D UF III MINI PEN NEEDLES 31G X 5 MM needle Endocrinology: Diabetes Non-DME Supplies -> Refill x 12 months (maximum allowed) -> Calculate quantity and refills manually. They could not be estimated due to missing or unreadable information. Last qualifying visit: 04/07/2019 (in Endocrinology with JUAN ZARAGOZA) Next scheduled visit: 10/06/2019 (in Endocrinology with JUAN ZARAGOZA) Last ordered by FATMATA MADDOX: 04/25/2018 (379 days ago) QTY: 100, Refills: 11, Si-5 times daily. (unchanged) Powered by [employer], Reference: [id number], 05/09/2019 10:21:30 AM CDT, Pool: [facility] TEAM ([id number]) documented in this encounter Plan of Treatment Upcoming Encounters Date Type Specialty Care Team Description 08/13/2022 Appointment Radiology Denise Aguirre APRN, RESTAURANT EXPEDITOR [address] [place], [place] [address] (Wo rk) 08/13/2022 Appointment Hematology and Oncology Denise Aguirre APRN, RESTAURANT EXPEDITOR [address] [place], [place] [address] (Wo rk) [...] on filedocumented in this encounter Care Teams Business Process Representative Relationship Specialty Start Date End Date Elyse Paredes MD PCP - General Family Practice 03/19/17 [address] [place] [address] documented as of this encounter
--- OUTSIDE RECORDS SUMMARY | 2022-07-02 13:53 | XMS_ITS | Encounter Summary ---
:1950 Author Organization [facility] Address [address] [place] [address] Care Team Providers Name Role Phone Elyse Paredes MD Primary Care Provider Reason for Visit Reason Comments FOLLOW-UP,DIABETES Encounter Details Date Type Department Care Team Description 04/07/2019 Office Visit [facility] [address] Cho, Controlled type 2 diabetes mellitus without complication, with long-term current use of insulin (HRC) (Primary Dx); Endocr[facility]ology Clinic Coronary artery disease involving [place] coronary artery of [place] heart without angina pectoris; [address] Dyslipidemia, goal LDL below 100; [place] [address] [place], [place] Essential hypertension; [phone] [id number] Obesity, morbid, BMI 50 or higher ([facility]) Social History Tobacco Use Types Packs/Day Years Used Date Smoking Tobacco: Former Cigarettes Quit : 08/02/1981 Smokeless Tobacco: Never Alcohol Use Standard Drinks/Week Comments No 0 (1 standard drink = 0.6 oz pure alcoho l) Sex Assigned at Date Recorded Not on file documented as of this encounter Last Filed Vital Signs Vital Sign Reading Time Taken Comments Blood Pressure 113/60 04/07/2019 2:11 PM CDT Pulse 68 04/07/2019 2:11 PM CDT Temperature - - Respiratory Rate - - Oxygen Saturation - - Inhaled Oxygen Concentration - - Weight 124.7 kg (275 lb) 04/07/2019 2:11 PM CDT Height - - Body Mass Index 50.3 09/16/2018 11:15 AM TEST ENGINE MECHANIC documented in this encounter Patient Instructions Patient InstructionsJuan Cho MD - 04/07/2019 2:00 PM CDT Blood sugar have improved continue current insulin regimen Continue to limit starch with meals To consider intermittent fasting: Goal is to only consume calories between noon and 8 pm on a daily basis. Intermittent fasting should lower blood sugars, allow an individual to maintain or lose small amounts of weight and allowed individuals to maintain muscle mass. RETURN IN 6 MONTHS PRIOR TO RETURN OBTAIN LABS, non fasting labs 2 weeks prior to return visit. To set up a [facility] lab visit call [phone] , or schedule on line using the [employer] Chart program. To schedule a future Endocrine visit call [phone] or utilize my chart If you have questions please call the Endocrine Department [phone] option #3. If you are unable to reach a nurse on the above phone line contact the nurse care line available 24 hours a day at [phone] Mailing address Luis Fernando Cho M.D. [address] [place], [place] [id number] Mail Stop: [id number] documented in this encounter Progress Notes Juan Cho MD - 04/07/2019 2:00 PM CDT ENDOCRINOLOGY RETURN NOTE 04/07/2019 Marci Diaz 68 y.o. HPI: The patient returns for management of type 2 diabetes controlled. ROS: As per HPI No current facility-administered medications for this visit. Allergies Allergen Reactions ??? Erythromycin Rash ??? Lisinopril Other, see comments Dry cough ??? Metformin Other, see comments and Nausea And Vomiting diarrhea P.E Filed Vitals: 04/07/19 1411 BP: 113/60 Pulse: 68 Weight: 275 lb (124.7 kg) Estimated body mass index is 50.3 kg/m?? as calculated from the following: Height as of 09/16/18: 5' 2 (1.575 m). Weight as of this encounter: 275 lb (124.7 kg). HEENT: NECK: LUNGS: CHEST: ABDOMEN: EXTREMITIES: no clubbing cyanosis or edema, pedal pulses present, vibrational sense intact NEURO: Disposition/hobbies/life stressors: ASSESSMENT/PLAN:: #1. Hypoglycemia/CGMS. In terms of the dexcom cgms: the patient is doing very well with a device. The patient is currently checking her blood sugars forty 6 times a day. The patient is currently injecting insulin 6 to 7 times a day. The patient's insulin treatment regimen requires frequent adjustmentsbased on blood sugars and C GMS device results. ?? #2. Hypertension. The patient may continue metoprolol, Lopressor and [place] ?? #3. Cholesterol. The patient may continue Crestor 20 mg once a day. ?? 4. Obesity. The patient has lost 14 lb since her last visit. The weight loss most likely result of intermittent fasting which only consumes cause between 12 and a and make better choices in terms of carbohydrate. #4. Type 2 diabetes controlled with coronary artery disease aortic valve replacement. the patient's blood sugars have improved dramatically with weight loss and the dex com C GMS. The patient's most recent A1c is 6.9. The previous A1c was 8.3. The patient may continue trulicity 1.5 mg weekly basaglar 50units once a day and 10 units as a base of Humalog with meals and the following scales maybe utilized. ?? Novolog scale with meals ?? Blood Sugar 150-200 give 2 units Blood Sugar 201-250 give 4 units Blood Sugar 251-300 give 6 units Blood Sugar 301-350 give 8 units Blood Sugar 351-400 give 10 units ?? Novolog scale before bed ?? Blood Sugar 201-250 give 4 units Blood Sugar 251-300 give 6 units Blood Sugar 301-350 give 8 units Blood Sugar 351-400 give 10 units ? Patient schedule return 6 months. Prior to return she will obtain labs for hemoglobin, hemoglobin A1c, microalbumin/creatinine ratio, ALT, direct LDL. Total time spent with the patient, 28 minutes, 24 minutes which was spent in education, discussion, answering all questions, and reviewing the above listed issues with the patient. Luis Fernando Cho MD This note created using speech-recognition software and may contain unintended word substitutions. documented in this encounter Plan of Treatment Upcoming Encounters Date Type Specialty Care Team Description 08/13/2022 Appointment Radiology Denise Aguirre, GRIFFIN, NUCLEAR SCIENTIST [address] [place], [place] [address] (Wo rk) 08/13/2022 Appointment Hematology and Oncology Denise Aguirre, SCHEDULE CHECKER, NUCLEAR SCIENTIST [address] [place], [place] [address] (Wo rk) documented as [...] bedtime. documented as of this encounter Results Hgb (12/21/2019 12:30 PM CDT) athologist Signature Hemoglobin 12.8 12.0 - 15.5 12/21/2019 [facility] g/dL 2:18 PM CDT [facility] Specimen Anatomical Collection Method / Collection Time Recei gil Time (Source) Location / Volume Laterality Blood Venipuncture / 12/21/2019 12:30 0 Unknown PM CDT 12:30 PM CDT Juan Cho MD LAB_1 Performing Organization Address City/State/ZIP Code Phon e Number [facility] [address] [place] [address] (ABNORMAL) HgbA1c (12/21/2019 12:30 PM CDT) Patholo gist Method Time Signature Hemoglobin A1C 7.6 (H) <=5.6 % 12/21/2019 [facility] 4:46 PM CDT CENTRAL LAB Specimen Anatomical Collection Method / Collection Time Recei gil Time (Source) Location / Volume Laterality Blood Venipuncture / 12/21/2019 12:30 0 Unknown PM CDT 12:30 PM CDT Narrative [facility]AL [facility] - 12/21/2019 4:46 PM CDT For patients not previously diagnosed with diabetes: 5.7-6.4%: Increased risk for diabetes 6.5% and greater: Diagnostic for diabete s For patients diagnosed with diabetes: <8.0%: Goal of therapy for ages 18-75 Clinicians may recommend a higher or low er goal for specific individuals. Juan Cho MD LAB_1 Performing Organization Address [facility] Phon e Number [facility] [address] [address] ALT (SGPT) (12/21/2019 12:30 PM CDT) athologist Signature ALT (SGPT) 18 0 - 55 U/L 12/21/2019 [facility] 6:21 PM CDT CENTRAL LAB Specimen Anatomical Collection Method / Collection Time Recei gil Time (Source) Location / Volume Laterality Blood Venipuncture / 12/21/2019 12:30 0 Unknown PM CDT 12:30 PM CDT Juan Cho MD LAB_1 Performing Organization Address [facility] Phon e Number [facility] [address] [address] Microalb / Creat Ratio (12/21/2019 12:30 PM CDT) [facility] Method Time Signature Albumin, 29.2 mg/L 12/21/2019 [facility] Urine, Random 6:41 PM CDT CENTRAL LAB Creatinine, 198 >20 mg/dL 12/21/2019 [facility] Urine, Random 6:41 PM CDT CENTRAL LAB Albumin/Creati 15 <30 mg/g 12/21/2019 [facility] nine Ratio, 6:41 PM CDT CENTRAL LAB Urine, Random Specimen Anatomical Collection Method Collection Time Receive d Time (Source) Location / / Volume Laterality Urine,random 12/21/2019 12:30 12/21/2019 PM CDT 12:30 PM CDT Juan Cho MD LAB_1 Performing Organization Address [facility]/ZIP Code Phon e Number [facility] CENTRAL LAB [address] [address] LDL Direct (12/21/2019 12:30 PM CDT) P athologist Signature LDL, Direct 99 <=130 12/21/2019 [facility] mg/dL 6:21 PM CDT CENTRAL LAB Specimen Anatomical Collection Method / Collection Time Recei gil Time (Source) Location / Volume Laterality Blood Venipuncture / 12/21/2019 12:30 0 Unknown PM CDT 12:30 PM CDT Juan Cho MD LAB_1 Performing Organization Address [facility] Phon e Number [facility] CENTRAL LAB [address] [address] documented in this encounter Visit Diagnoses Diagnosis Controlled type 2 diabetes mellitus with out complication, with long-term current use of insulin (HRC) - Primary Coronary artery disease involving [place] coronary artery of [place] heart without angina pectoris (HRC) Dyslipidemia, goal LDL below 100 (HRC) Other and unspecified hyperlipidemia Essential hypertension (HRC) Unspecified essential hypertension Obesity, morbid, BMI 50 or higher (HRC) documented in this encounter Care Teams Design Cell Engineer Relationship Specialty Start Date End Date Elyse Paredes MD PCP - General Family Practice 03/19/17 [address] [place] [address] documented as of this encounter
--- OUTSIDE RECORDS SUMMARY | 2022-07-02 13:53 | XMS_ITS | Encounter Summary ---
:1950 Author Organization [facility] Address [address] [place] [address] Care Team Providers Name Role Phone Elyse Paredes MD Primary Care Provider Encounter Details Date Type Department Care Team Description 11/25/2018 Office Visit [facility] Rad[facility] Therapy [address] [place] [phone] Social History Tobacco Use Types Packs/Day Years [...] Description 08/13/2022 Appointment Radiology Denise Aguirre APRN, ADJUNCT FACULTY MATHEMATICS DEPARTMENT [address] [place], [place] [address] (Wo rk) 08/13/2022 Appointment Hematology and Oncology Denise Aguirre APRN, ADJUNCT FACULTY MATHEMATICS DEPARTMENT [address] [place], [place] [address] (Wo rk) documented as of this encounter Goals Goal Patient Goal Associated Recent Patient-Stated? Author Type Problems Progress Being active Diabetes Diabetes No Alma Carranza RD, CALE Note: Formatting of this note [...] on filedocumented in this encounter Care Teams Cut Out And Marking Machine Operator Relationship Specialty Start Date End Date Elyse Paredes MD PCP - General Family Practice 03/19/17 [address] [place] [place] [id number] documented as of this encounter
--- OUTSIDE RECORDS SUMMARY | 2022-07-02 13:53 | XMS_ITS | Encounter Summary ---
:1950 Author [facility] Address [address] [place] [address] Care Team Providers Name Role Phone Elyse Paredes MD Primary Care Provider Encounter Details Date Type Department Care Team Description 12/02/2018 [facility] mario land [facility] Radiation with long -term current Therapy use of insulin (HRC) [address] [place] [address] (Primary Dx) [place] [address] Social History Tobacco Use Types Packs/Day Years Used Date Smoking Tobacco: Former Cigarettes Quit : 08/02/1981 Smokeless Tobacco: Never Alcohol Use Standard Drinks/Week Comments No 0 (1 standard drink = 0.6 oz pure alcoho l) Sex Assigned at Date Recorded Not on file documented as of this encounter Patient Instructions Patient InstructionsDawn To RN - 12/02/2018 9:45 AM CDT Discharge Instructions for Radiation Therapy to the Breast Skin Care Your skin in the treatment area may be irritated for several weeks after completion of the radiation. This irritation may worsen during the 2-week period immediately following therapy. Continue to be gentle with the skin in this area until all signs of irritation are gone. Use a moisturizer on your skin as needed. Do not try to scrub off the irizarry in the treatment area. These irizarry will gradually fade away. The area that has been treated will be more sensitive to the sun. Always protect the skin in the treatment area from sun exposure with clothing or a sunscreen lotion with a SPF of 30 or higher. Activity The feeling of tiredness or fatigue you have experienced during your radiation treatments usually improves within several weeks after treatments are completed. Occasionally, this will last for a longerperiod of time. Try to get plenty of sleep at night, and rest as needed during the day. Gradually increase your activity level as your energy level permits. Nutrition Good nutrition is important in helping your body to recover from the effects of your radiation treatments. Changes in the treated breast Redness and darkening of the skin should fade over the next several weeks. Some women notice that the treated breast is firmer following radiation treatment. Over the next many months, some of this firmness may lessen. However, the treated breast will always feel somewhat more firm and smaller than the opposite breast. Mammograms It is recommended that you have a mammogram of the treated breast no sooner than 3 to 4 months afterthe completion of radiation therapy (this will be used as a new baseline). Then, routine mammograms of both breasts should be done every year (unless directed differently by your primary doctor). Arm Exercises The stiffness and tightness in the tissues of the chest and armpit after surgery and radiation therapy may continue for many months. Perform stretching exercises to improve and maintain full range of motion of the arm and shoulder. Reminder If you have had surgery to remove lymph nodes under your arm, you should have blood pressures and blood draws done on the opposite arm. Other Instructions: See Dr. Trujillo in a week. Continue skin care with new creams Please call if you have questions. Our phone number is [phone]. documented in this encounter Progress Notes Deloris Trujillo MD - 12/02/2018 9:45 AM CDT Radiation Therapy Treatment Summary Patient name: Marci Diaz Date of : 1950 Referring Physician: Dr. Madrid Primary Care Provider: Elyse Paredes MD Cancer Staging Malignant neoplasm of left breast in female, estrogen receptor positive (HRC) Staging form: Breast, AJCC 8th Edition - Pathologic stage from 10/27/2018: Stage IA (pT1c, pN0(sn), cM0, G2, ER+, WV+, HER2-, Oncotype DX score: 10) - Signed by Deloris Trujillo MD on 10/27/2018 Intent of therapy:Curative Dose summary: Radiation Treatment Summary Radiation Therapy Treatment Summary 12/02/2018 Site of [...] Date 11/30/2018 Site2 Treatment End Date 12/02/2018 The tumor bed received a total of 5056 cGy in 19 fractions. Treatment tolerance: Marci generally tolerated therapy well although during her final week she developed uncomfortable dry desquamation in the left axilla. Her osteoarthritis also seemed to flare during radiation despite taking Celebrex. Followup Plan: CamWell sample given to use bid Prescription for silvadene sent to pharmacy to use bid. If any area becomes moist, apply the silvadene to the open areas. Followup skin check in 1 week. She next sees Dr. Madrid on 12/09/2018 Thank you for the opportunity to participate in the care of this patient. Please feel free to call if you have any questions about the care she received. Deloris Trujillo MD Radiation Oncology [phone] documented in this encounter Plan of Treatment Upcoming Encounters Date Type Specialty Care Team Description 08/13/2022 Appointment Radiology Denise Aguirre APRN, DOCUMENTATION MANAGER [address] [place], [place] [address] (Wo rk) 08/13/2022 Appointment Hematology and Oncology Denise Aguirre APRN, DOCUMENTATION MANAGER [address] [place], [place] [address] (Wo rk) documented as of this encounter Goals Goal Patient Goal Associated Recent Patient-Stated? Author Type Problems Progress Being active Diabetes Diabetes No Casteleyn, Education Education Tanner Ng, RD, CDE Note: [...] Primary documented in this encounter Care Teams Mold Design Engineer Relationship Specialty Start Date End Date Elyse Paredes MD PCP - General Family Practice 03/19/17 [address] [place] [address] documented as of this encounter
--- OUTSIDE RECORDS SUMMARY | 2022-07-02 13:53 | XMS_ITS | Encounter Summary ---
:1950 Author Organization [facility] Address [address] [place] [address] Care Team Providers Name Role Phone Elyse Paredes MD Primary Care Provider Encounter Details Date Type Department Care Team Description 12/09/2018 Office Visit [facility] at Jia Trujillo MD [facility] Radiation Therapy [address] [place] [address] Social History Tobacco Use Types Packs/Day Years Used Date Smoking Tobacco: Former Cigarettes Quit : 08/02/1981 Smokeless Tobacco: Never Alcohol Use Standard Drinks/Week Comments No 0 (1 standard drink = 0.6 oz pure alcoho l) Sex Assigned at Date Recorded Not on file documented as of this encounter Progress Notes Deloris Trujillo MD - 12/09/2018 2:00 PM CDT Radiation Therapy Followup Note: Patient name: Marci Diaz Date of : 1950 Referring Physician: Dr. Elisa coker Care Provider: Elyse Paredes MD Diagnosis: Cancer Staging Malignant neoplasm of left breast in female, estrogen receptor positive (HRC) Staging form: Breast, AJCC 8th Edition - Pathologic stage from 10/27/2018: Stage IA (pT1c, pN0(sn), cM0, G2, ER+, [place]+, HER2-, Oncotype DX score: 10) - Signed [...] Date 11/30/2018 Site2 Treatment End Date 12/02/2018 Followup: The patient returns today for prescheduled followup, skin check. At the end of radiation she was uncomfortable in the axilla although all skin was intact. She was going to try CamWell cream or silvadene. Today she reports that the axilla still feels like a hot technology integration specialist 1 location. She is very excited tohave a continuous glucose monitor. On exam: She has expected dry desquamation over the lateral breast, axilla. New skin is emerging. Under the breast overall is healing well, but medially there is a small patch of moist desquation. Assessment: Healing slowly from radiation. I suspect the diabetes is slowing the rate. Plan: Saline soaks Silvadene bid only on the open skin in the inframammary fold. RTC in 1 week for a skin check. Resume the follow-up as scheduled with Dr. Madrid who saw her earlier today. Due to uncontrolled diabetes and continued weight gain, the decision to start hormonal therapy has been delayed. If the above can be controlled, she may consider endocrine therapy. Deloris Trujillo MD Radiation Oncology [phone] documented in this encounter Plan of Treatment Upcoming Encounters Date Type Specialty Care Team Description 08/13/2022 Appointment Radiology Denise Aguirre APRN, ELECTRICAL AND INSTRUMENT TECHNICIAN [address] [place], [place] [address] (Wo rk) 08/13/2022 Appointment Hematology and Oncology Denise Aguirre APRN, ELECTRICAL AND INSTRUMENT TECHNICIAN [address] [place], [place] [address] (Wo rk) documented as [...] on filedocumented in this encounter Care Teams Inbound Call Center Representative Relationship Specialty Start Date End Date Elyse Paredes MD PCP - General Family Practice 03/19/17 [address] [place] [address] documented as of this encounter
--- OUTSIDE RECORDS SUMMARY | 2022-07-02 13:53 | XMS_ITS | Encounter Summary ---
:1950 Author Organization [facility] Address [address] [address] Care Team Providers Name Role Phone Elyse Paredes MD Primary Care Provider Encounter Details Date Type Department Care Team Description 03/08/2019 Orders Only External to Elyse Paredes MD [address] [place], [place] [address] (Wo rk) Social History [...] Team Description 08/13/2022 Appointment Radiology Denise Aguirre, [place], CLINICAL REHABILITATION SPECIALIST [address] [place], [place] [address] (Wo rk) 08/13/2022 Appointment Hematology and Oncology Denise Aguirre APRN, CLINICAL REHABILITATION SPECIALIST [address] [place], [place] [address] (Wo rk) documented as [...] Date/Time Associated Diagnosis Comme nts [facility] 03/08/2019 12:00 AM Results for this CDT procedure are i n the results section . documented in this encounter Results [facility] (03/08/2019 12:00 AM CDT) Specimen (Source) Anatomical Location Collection Method / Collectio n Time Received Time / Laterality Volume 03/08/2019 Narrative This result has an attachment that is no t available. Elyse Paredes MD LAB_1 documented in this encounter Visit Diagnoses Not on filedocumented in this encounter Care Teams Sewing Demonstrator Relationship Specialty Start Date End Date Elyse Paredes MD PCP - General Family Practice 03/19/17 [address] [place] [address] documented as of this encounter
--- OUTSIDE RECORDS SUMMARY | 2022-07-02 13:53 | XMS_ITS | Encounter Summary ---
:1950 Author Organization [facility] Address [address] [place] [address] Care Team Providers Name Role Phone Elyse Paredes MD Primary Care Provider Encounter Details Date Type Department Care Team Description 12/23/2018 Office Visit [facility] at Jia Trujillo MD [facility] Radiation Therapy [address] [place] [address] Social History Tobacco Use Types Packs/Day Years Used Date Smoking Tobacco: Former Cigarettes Quit : 08/02/1981 Smokeless Tobacco: Never Alcohol Use Standard Drinks/Week Comments No 0 (1 standard drink = 0.6 oz pure alcoho l) Sex Assigned at Date Recorded Not on file documented as of this encounter Last Filed Vital Signs Vital Sign Reading Time Taken Comments Blood Pressure 145/72 12/23/2018 11:04 AM CDT Pulse - - Temperature - - Respiratory Rate - - Oxygen Saturation - - Inhaled Oxygen Concentration - - Weight - - Height - - Body Mass Index - - documented in this encounter Progress Notes Deloris Trujillo MD - 12/23/2018 11:00 AM CDT Radiation Therapy Followup Note: Patient name: Marci Diaz Date of : 1950 Referring Physician: Dr. Madrid Primary Care Provider: Elyse Paredes MD Diagnosis: Cancer Staging Malignant neoplasm of overlapping sites of left female breast (HRC) Staging form: Breast, AJCC 8th Edition [...] Followup: The patient returns today for prescheduled followup. Last week she still had dry desquamation and also a small patch of moist desquamation in the medial inframammary fold. She has been using saline soaks and silvadene bid on the open skin. She reports that in the last 3 days the skin suddenly healed. She is overall very please with her attached glucometer. On exam: BP (!) 145/72 The skin of the left breast is nearly all returned to normal. Still a couple pink spots on the under side of the breast. No moist areas. Assessment: Well healed. Plan: The patient will continue long-term followup with medical oncology as is scheduled. No furtherroutine followup will be scheduled in this department. Currently hormonal therapy is on hold due to uncontrolled diabetes. Thank you for the opportunity to participate in the care of this patient. Please feel free to call if you have any questions about the care she received. Deloris Trujillo MD Radiation Oncology [phone] documented in this encounter Nursing Notes Kaycee Clay RN - 12/23/2018 11:00 AM CDT Pt completed left breast radiation 12/16/18. She had moist desquamation in IM fold and left axilla. She had been using salt water soaks and Silvadene, and now has completely healed. Has occasional shooting needle-like pains in left breast which are short lived. She has f/u with Dr. Madrid February 10. documented in this encounter Plan of Treatment Upcoming Encounters Date Type Specialty Care Team Description 08/13/2022 Appointment Radiology Denise Aguirre APRN, LOAD BUILDER [address] [place], [place] [address] (Wo rk) 08/13/2022 Appointment Hematology and Oncology Denise Aguirre APRN, LOAD BUILDER [address] [place], [place] [address] (Wo rk) documented as [...] on filedocumented in this encounter Care Teams Satellite Dish Repairer Relationship Specialty Start Date End Date Elyse Paredes MD PCP - General Family Practice 03/19/17 [address] [place] [address] documented as of this encounter
--- OUTSIDE RECORDS SUMMARY | 2022-07-02 13:53 | XMS_ITS | Encounter Summary ---
:1950 Author Organization [facility] Address [address] [place] [address] Care Team Providers Name Role Phone Elyse Paredes MD Primary Care Provider Reason for Visit Procedure/Equipment (Routine) - Incomplete Specialty Diagnoses / Procedures Referred By Contact Refer red To Contact Diagnoses Malignant neoplasm of left breast in female, estrogen receptor positive, unspecified site of breast (HRC) Elisa Madrid, Procedures DEXA Bone Density Spine/Hip Dexa Bone Density Spine/Hip/Forearm MBBS [address] [place] [address] Referral ID Status Reason Start Date Expiration Date Visits V isits Requested Authorized [id number] Incomplete 12/09/2018 03/09/2020 1 1 Encounter Details Date Type Department Care Team Description 01/26/2019 [facility] Jimmy Madrid neoplasm Procedure 401 Bone Density Elisa Kahn, MBBS of left breast in [address] [facility] female, estrogen [place], [place] receptor po sitive, [phone] unspecified site of [phone] breast (HRC) (Work) Social History Tobacco Use Types Packs/Day [...] Description 08/13/2022 Appointment Radiology Denise Aguirre, GRIFFIN, CORN CHIP MAKER [address] [place], [place] [address] (Wo rk) 08/13/2022 Appointment Hematology and Oncology Denise Aguirre, VMWARE SYSTEMS ADMINISTRATOR, CORN CHIP MAKER [address] [place], [place] [address] (Wo rk) documented as [...] Name Priority Date/Time Associated Diagnosis Comme nts DXA BONE DENSITY Routine 01/26/2019 11:20 AM Malignant neoplas m Results for this SPINE/HIP CDT of left breast in procedure are in female, estrogen the results receptor positive, section. unspecified site of breast (HRC) documented in this encounter Results DEXA Bone Density Spine/Hip (01/26/2019 11:20 AM CDT) Anatomical Region Laterality Modality Lower Extremity, Spine, Hip, L-Spine Oth er Specimen (Source) Anatomical Location Collection Method / Collectio n Time Received Time / Laterality Volume Narrative 01/26/2019 2:02 PM CDT WHO Criteria for the diagnosis of osteoporosis: T-score >-1 Normal T-score between -1 and -2.5 Osteopenia T-score <-2.5 Osteoporosis Fracture risk: T-score -1 ?? 2 times increased ?-2 ?? 4 times incre ased ?-3 ?? 6 times incre ased *With previous fragility fracture, risk of subsequent fracture doubles again SCREENING FOR OSTEO, HOLD CALCIUM Indication:Postmenopausal disorder Train Announcer and Model of Instrument: [employer]vaco Demographics Age: 68 y.o. Gender: female Height :5' 2 Weight (lbs):280lbs Race: Medical/Surgical History Menstrual periods:None Age of menopause:57 History of hip fractures in parents:Yes History of previous fractures occurring spontaneously, or a fracture as a result of a fall from a standing height or less:No If yes, indicated area: Glucocorticoids use:No Currently taking medication:None Have or had listed medical conditions:No ne Dietary/Habit Alcohol 3units or more per day (on Appnique):No Currently smoking:No Other pertinent history: Dual-X-ray Absorptiometry (DXA Results) AP spine (L2-L4)(L1 EXCLUDED) Left hip ( neck) Left ??hip (total) BMD (gm/cm2) 1.010 0.857 1.047 ? T score -0.6 0.1 0.9 ? Z score 1.3 1.7 2.2 ?? %change from previous scan dated: ? Diagnosis: *No evidence of osteopenia/osteoporosis. Recommendations:. *Ensure appropriate calcium and vitamin D intake. DXA Scan Follow-up When do you repeat a DXA scan? This depe nds on a number of factors, including baseline DXA scan results and risk factors for accelerated bone loss. ??Timing of follow up scan should be individualized. ??These are general recommendations, but if a patien t has significant risk factors for accelerated bone loss that are not noted on the DXA report, more aggressive follow up should be pursued 1. In women and men with low bone mass ( T-score -2.00 to -2.49) at any site or who have risk factors for ongoin g bone loss (eg, glucocorticoid use, hyperparathyroidism, aromatase inhi bitors, etc.), consider a follow-up DXA approximately every one to two years as long as the risk factor persists 2. In women 65 years of age and older at baseline screening, with low bone mass (T-score -1.50 to -1.99) at any sit e, and with no risk factors for accelerated bone loss, consider a follow -up DXA in three to five years. ?? For women under 65 years old and men, th ere is no consensus recommendation due to the paucity of data. ?? 3. In women 65 years of age and older wi th normal or slightly low bone mass (T-score -1.01 to -1.49) at baselin e measurement and no risk factors for accelerated bone loss, consider a fo llow-up DXA in 10 to 15 years. ?? For women under 65 years old and men, th ere is no consensus recommendation due to the paucity of data. 4. In patients with osteoporosis or who? s FRAX score suggests treatment should be initiated, consider a follow-u p DXA in one to two years. 5. In patients who are currently on se tment for low bone mass, consider repeating DXA scan one to two years afte r initiating treatment and possibly less frequently thereafter. ?? There are no recommendations for men <50 years old, or premenopausal women. The FRAX?? tool has been developed by O to evaluate fracture risk to patients. It is based on individual ok ent models that integrate the risks associated with clinical risk fact ors as well as bone mineral density (BMD) at the femoral neck. The FRAX?? algorithms give the 10-year p robability of fracture. The output is a 10-year probability of hip fracture and the 10-year probability of a major osteoporotic fracture (clinical sp ine, forearm, hip or shoulder fracture). Consider FDA-approved medical therapies in postmenopausal women and men aged 50 years and older, based on the fo llowing: ?? A hip or vertebral (clinical or morph ometric) fracture. ?? T-score ? -2.5 at the femoral neck or spine after appropriate evaluation to exclude secondary causes. ?? Low bone mass(T-score -1.0 and -2.5 a t the femoral neck or spine) and a 10-year probability of a hip fracture ? 3% or a 10-year probability of a major osteoporosis-related fracture ? 20 % based on the [place]-adapted WHO algorithm. ?? Clinicians judgment and/or patient pr eferences may indicate treatment for people with 10-year fracture probabi lities above or below these levels. ?? Elisa ORTEGA RAD DEXA documented in this encounter Visit Diagnoses Diagnosis Malignant neoplasm of left breast in fem grey, estrogen receptor positive, unspecified site of breast (HRC) documented in this encounter Care Teams Wharfmaster Relationship Specialty Start Date End Date Elyse Paredes MD PCP - General Family Practice 03/19/17 [address] [place] [address] documented as of this encounter
--- OUTSIDE RECORDS SUMMARY | 2022-07-02 13:53 | XMS_ITS | Encounter Summary ---
:1950 Author Organization [facility] Address [address] [place] [address] Care Team Providers Name Role Phone Elyse Paredes MD Primary Care Provider Encounter Details Date Type Department Care Team Description 12/01/2018 Office [facility] Rad[facility] [address] [place] [phone] Social History Tobacco Use Types Packs/Day Years [...] Description 08/13/2022 Appointment Radiology Denise Aguirre APRN, MONEY POSITION OFFICER [address] [place], [place] [address] (Wo rk) 08/13/2022 Appointment Hematology and Oncology Denise Aguirre APRN, MONEY POSITION OFFICER [address] [place], [place] [address] (Wo rk) documented as [...] on filedocumented in this encounter Care Teams Drag Car Racer Relationship Specialty Start Date End Date Elyse Paredes MD PCP - General Family Practice 03/19/17 [address] [place], [place] [phone] documented as of this encounter
--- OUTSIDE RECORDS SUMMARY | 2022-07-02 13:53 | XMS_ITS | Encounter Summary ---
:1950 Author Organization [facility] Address [address] [place] [address] Care Team Providers Name Role Phone Elyse Paredes MD Primary Care Provider Encounter Details Date Type Department Care Team Description 11/29/2018 [facility] Rad[facility] [address] [place] [phone] Social History Tobacco Use Types Packs/Day Years [...] Description 08/13/2022 Appointment Radiology Denise Aguirre APRN, METER TESTER POLYPHASE [address] [place], [place] [address] (Wo rk) 08/13/2022 Appointment Hematology and Oncology Denise Aguirre APRN, METER TESTER POLYPHASE [address] [place], [place] [address] (Wo rk) documented as [...] on filedocumented in this encounter Care Teams Desizing Pad Operator Relationship Specialty Start Date End Date Elyse Paredes MD PCP - General Family Practice 03/19/17 [address], [place] [phone] documented as of this encounter
--- OUTSIDE RECORDS SUMMARY | 2022-07-02 13:53 | XMS_ITS | Encounter Summary ---
:1950 Author Organization [facility] Address [address] [place] [address] Care Team Providers Name Role Phone Elyse Paredes MD Primary Care Provider Encounter Details Date Type Department Care Team Description 12/16/2018 Office Visit [facility] at Jia Trujillo MD [facility] Radiation Therapy [address] [place] [address] Social History Tobacco Use Types Packs/Day Years Used Date Smoking Tobacco: Former Cigarettes Quit : 08/02/1981 Smokeless Tobacco: Never Alcohol Use Standard Drinks/Week Comments No 0 (1 standard drink = 0.6 oz pure alcoho l) Sex Assigned at Date Recorded Not on file documented as of this encounter Last Filed Vital Signs Vital Sign Reading Time Taken Comments Blood Pressure 128/54 12/16/2018 10:58 AM CDT Pulse 66 12/16/2018 10:58 AM CDT Temperature - - Respiratory Rate 16 12/16/2018 10:58 AM CDT Oxygen Saturation - - Inhaled Oxygen Concentration - - Weight 129.8 kg (286 lb 4 oz) 12/16/2018 10:57 AM CDT Height - - Body Mass Index 52.36 09/16/2018 11:15 AM CORE FILER documented in this encounter Progress Notes Deloris Trujillo MD - 12/16/2018 10:45 AM CDT Radiation Therapy Followup Note: Patient name: Marci Diaz Date of : 1950 Referring Physician: Dr. Elisa coker Care Provider: Elyse Paredes MD Diagnosis: Cancer Staging Malignant neoplasm of overlapping sites of left female breast (HRC) Staging form: Breast, AJCC 8th Edition - Pathologic stage from 10/27/2018: Stage IA (pT1c, pN0(sn), cM0, G2, ER+, DC+, HER2-, Oncotype DX score: 10) - Signed by Deloris Trujillo MD on 10/27/2018 Dose summary: Radiation Treatment Summary Radiation Therapy [...] returns today for prescheduled followup, skin check. Last week she was still having a lot of pain. She has been cleaning with saline soaks and applying silvadene to all open skin. On exam: She has expected dry desquamation over the lateral breast, axilla. New skin is emerging. Under the breast overall is healing well, but medially there is a small patch of moist desquation. Similar finding in the axilla. New skin islands are emerging in all fragile areas. Assessment: Healing slowly from radiation. I suspect the diabetes is slowing the rate. Plan: Saline soaks Silvadene bid only on the open skin. FU in 1 week for a skin check. She is excited to give us an update on her search for a townhouse in [place] that she is pursuing today. Deloris Trujillo MD Radiation Oncology [phone] documented in this encounter Nursing Notes Dawn To RN - 12/16/2018 10:45 AM CDT Marci is here for follow up after completing radiation therapy to the left breast on 12/02/18. She hasbeen using saline soaks and silvadene to irritated skin areas in left axilla and left inframmary area. There is evidence of healing skin without evidence of infection. She has no complaint of pain. Shehas been using a clean washcloth to inframmary area to decrease friction from skin rubbing on chestwall. She will continue same skin care and return to see Dr. Trujillo next week. Dawn To RN,OCN documented in this encounter Plan of Treatment Upcoming Encounters Date Type Specialty Care Team Description 08/13/2022 Appointment Radiology Denise Aguirre, MOBILE MARKETING SPECIALIST, RECEPTIONIST AIRLINE LOUNGE [address] [place], [place] [phone] (Wo rk) 08/13/2022 Appointment Hematology and Oncology Denise Aguirre, GRIFFIN, RECEPTIONIST AIRLINE LOUNGE [address] [place], [place] [phone] (Wo rk) documented as [...] on filedocumented in this encounter Care Teams Semi Conductor Assembler Relationship Specialty Start Date End Date Elyse Paredes MD PCP - General Family Practice 03/19/17 [address] [place] [address] documented as of this encounter
--- OUTSIDE RECORDS SUMMARY | 2022-07-02 13:53 | XMS_ITS | Encounter Summary ---
:1950 Author Organization [facility] Address [address] [place] [address] Care Team Providers Name Role Phone Elyse Paredes MD Primary Care Provider Encounter Details Date Type Department Care Team Description 11/29/2018 Office Visit [facility] at Jia Trujillo MD [facility] Radiation Therapy [address] [place] [address] Social History Tobacco Use Types Packs/Day Years Used Date Smoking Tobacco: Former Cigarettes Quit : 08/02/1981 Smokeless Tobacco: Never Alcohol Use Standard Drinks/Week Comments No 0 (1 standard drink = 0.6 oz pure alcoho l) Sex Assigned at Date Recorded Not on file documented as of this encounter Last Filed Vital Signs Vital Sign Reading Time Taken Comments Blood Pressure 127/56 11/29/2018 10:08 AM CDT Pulse 91 11/29/2018 10:08 AM CDT Temperature - - Respiratory Rate 16 11/29/2018 10:08 AM CDT Oxygen Saturation - - Inhaled Oxygen Concentration - - Weight 130.8 kg (288 lb 6 oz) 11/29/2018 10:08 AM CDT Height - - Body Mass Index 52.74 09/16/2018 11:15 AM HOUSEKEEPING LEAD documented in this encounter Progress Notes Deloris Trujillo MD - 11/29/2018 10:00 AM CDT Radiation Therapy Under Treatment Visit (UTV) Note Diagnosis: 68-year-old female with recently diagnosed pathologic stage I infiltrating ductal carcinoma of the left breast as described above. 1.2 cm. Oli grade 2. Margins negative. The closest is 7 mm. ER/ME positive, HER-2 negative. Oncotype recurrence score 10. Adjuvant hormonal therapy is planned per Dr. Madrid. Intent of therapy: Curative Medical Oncologist: JORDAN Martinez Primary Care: Elyse Paredes MD Date of encounter: 11/29/2018 Patient has completed 15 of 20 fractions Total dose to date: 4256 of planned 5256 cGy All verification films have been reviewed and approved Comments: Marci is overall doing well. She reports that the bruising and erythema that were present at the start of radiation have now improved considerably. Her primary difficulty has been controllingher diabetes. She was supposed to meet with her director of cardiac rehabilitation today but that doctor is out sick so her appointment has been rescheduled. The patient reports pain at a level of: Pain Score: No Pain (0) BP 127/56 Pulse 91 Resp 16 Wt 288 lb 6 oz (130.8 kg) BMI 52.74 kg/m?? Wt Readings from Last 4 Encounters: 11/29/18 288 lb 6 oz (130.8 kg) 11/22/18 289 lb 6 oz (131.3 kg) 11/15/18 289 lb 6 oz (131.3 kg) 10/27/18 288 lb (130.6 kg) On exam, the central breast is very mildly erythematous. The axillary though is red, dry desquamation. ECOG Perrformance status: 0 - Fully active; no performance restrictions Assessment: Tolerating therapy well Plan: Continue RT. Jergens for central breast. Aquaphor samples given to apply 2-4 times per day to the fragile axillary skin. Deloris Trujillo MD Radiation Oncology [phone] documented in this encounter Plan of Treatment Upcoming Encounters Date Type Specialty Care Team Description 08/13/2022 Appointment Radiology Denise Aguirre, AGRICULTURE ENGINEER, SHOOK SPLICER [address] [place], [place] [address] (Wo rk) 08/13/2022 Appointment Hematology and Oncology Denise Aguirre APRN, SHOOK SPLICER [address] [place], [place] [address] (Wo rk) documented as [...] on filedocumented in this encounter Care Teams Education Diagnostician Relationship Specialty Start Date End Date Elyse Paredes MD PCP - General Family Practice 03/19/17 [address] [place] [address] documented as of this encounter
--- OUTSIDE RECORDS SUMMARY | 2022-07-02 13:53 | XMS_ITS | Encounter Summary ---
:1950 Author Organization [facility] Address [address] [place] [address] Care Team Providers Name Role Phone Elyse Paredes MD Primary Care Provider Reason for Visit Reason Comments FOLLOW-UP,DIABETES Encounter Details Date Type Department Care Team Description 12/02/2018 Office Visit Specialty Center 401 Juan Cho T, Uncontrolled type 2 diabetes mellitus, with long-term current use of insulin (HRC) (Primary Dx); Endocrinology Clinic Dyslipidemia, goal LDL below 100; [address] Essential hypertension; [place] [address] [place], [place] Coronary artery disease invo lving white earth coronary artery of white earth heart without angina pectoris; [phone] [address] Malignant neoplasm of left breast in fem grey, estrogen receptor positive, unspecified site of breast (HRC); [phone] Obesity, unspec ified obesity severity, unspecified obesity [...] Sign Reading Time Taken Comments Blood Pressure 146/76 12/02/2018 12:58 PM CDT Pulse 78 12/02/2018 12:58 PM CDT Temperature - - Respiratory Rate - - Oxygen Saturation - - Inhaled Oxygen Concentration - - Weight 131.1 kg (289 lb) 12/02/2018 12:58 PM CDT Height - - Body Mass Index 52.86 09/16/2018 11:15 AM WOOL WASHING MACHINE OPERATOR documented in this encounter Patient Instructions Patient InstructionsJuan Cho MD - 12/02/2018 12:45 PM CDT Rx for Dexcom placed to [facility] in [facility]. The pharmacy should contact you. If not call [phone]. They should then arrange for the supplies to be sent to you If there are any problems call Dexcom Marya Duenas [phone] Once you have the Dexcom G5/G6 call the following number to receive instructions on how to use the Dexcom G6. Ext 3. G5 is currently available for medicare and supposedly Dexcom G6 will be available in the fall. If dexcom does not schedule someone to teach you how to use dexcom g6 than schedule a vist with ict educator to learn hew to use the dexcom g5/g6. Contiue current diabetic regimen Basaglar 60 units Continue 10 units of humalog with meals Novolog scale with meals Blood Sugar 150-200 give 2 units Blood Sugar 201-250 give 4 units Blood Sugar 251-300 give 6 units Blood Sugar 301-350 give 8 units Blood Sugar 351-400 give 10 units Novolog scale before bed Blood Sugar 201-250 give 4 units Blood Sugar 251-300 give 6 units Blood Sugar 301-350 give 8 units Blood Sugar 351-400 give 10 units RETURN IN 3-4 MONTHS PRIOR TO RETURN OBTAIN LABS, non fasting labs 2 weeks prior to return visit. To set up a [facility] lab visit call [phone] , or schedule on line using the My Chart program. To schedule a future Endocrine visit call [phone] or utilize my chart If you have questions please call the Endocrine Department [phone] option #3. If you are unable to reach a nurse on the above phone line contact the nurse care line available 24 hours a day at [phone] Mailing address Luis Fernando Cho M.D. [address] [place] [address] Mail Stop: [id number] documented in this encounter Progress Notes Chris Allred CMA - 12/02/2018 12:45 PM CDT Images from the original note were not included. Juan Cho MD - 12/02/2018 12:45 PM CDT ENDOCRINOLOGY RETURN NOTE 12/02/2018 Marci Diaz 68 y.o. HPI: The patient return for management of uncontrolled type 2 diabetes ROS: As per HPI No current facility-administered medications for this visit. Allergies Allergen Reactions ??? Erythromycin Rash ??? Lisinopril Other, see comments Dry cough ??? Metformin Other, see comments and Nausea And Vomiting diarrhea P.E Filed Vitals: 12/02/18 1258 BP: (!) 146/76 Pulse: 78 Weight: 289 lb (131.1 kg) Estimated body mass index is 52.86 kg/m?? as calculated from the following: Height as of 09/16/18: 5' 2 (1.575 m). Weight as of this encounter: 289 lb (131.1 kg). HEENT: NECK: LUNGS: CHEST: ABDOMEN: EXTREMITIES: no clubbing cyanosis or edema, pedal pulses present, vibrational sense intact NEURO: Disposition/hobbies/life stressors: ASSESSMENT/PLAN:: #1. Hypoglycemia/CGMS. The patient has been checking her blood sugar four times a day and does have some hypoglycemic episodes. Therefore the patient is encouraged to obtain a dexcom C GMS. Rx placed. #2. Hypertension. The patient may continue metoprolol, Lopressor and [place] #3. Cholesterol. The patient may continue Crestor 20 mg once a day. #4. Type 2 diabetes uncontrolled with coronary artery disease aortic valve replacement. Patient has been consistently checking blood sugar four times a day and does have significant insulin resistance.The patient's weight is stable since last visit. Patient is interested in a dexcom C GMS, which willalso help her be accountable in terms of carbohydrates consumed and being more aggressive with bloodsugars at night to achieve a blood sugar less than 150 in morning. In the interim the patient may continue trulicity 1.5 mg weekly basaglar 60 units once a day split and 30 and 30 units doses and 10 units as a base of Humalog with meals and the following scales may be utilized. Novolog scale with meals Blood Sugar 150-200 give 2 units Blood Sugar 201-250 give 4 units Blood Sugar 251-300 give 6 units Blood Sugar 301-350 give 8 units Blood Sugar 351-400 give 10 units Novolog scale before bed Blood Sugar 201-250 give 4 units Blood Sugar 251-300 give 6 units Blood Sugar 301-350 give 8 units Blood Sugar 351-400 give 10 units Total time spent with the patient, 34 minutes, 30 minutes which was spent in education, discussion, answering all questions, and reviewing the above listed issues with the patient. Luis Fernando Cho MD This note created using speech-recognition software and may contain unintended word substitutions. documented in this encounter Plan of Treatment Upcoming Encounters Date Type Specialty Care Team Description 08/13/2022 Appointment Radiology Denise Aguirre APRN, AUTOMATION TECH [address] [place], [place] [address] (Wo rk) 08/13/2022 Appointment Hematology and Oncology Denise Aguirre APRN, AUTOMATION TECH [address] [place], [place] [address] (Wo rk) documented as [...] hyperlipidemia Essential hypertension (HRC) Unspecified essential hypertension Coronary artery disease involving white earth coronary artery of white earth heart without angina pectoris (HRC) Malignant neoplasm of left breast in fem grey, estrogen receptor positive, unspecified site of breast (HRC) Obesity, unspecified obesity severity, u nspecified obesity type (HRC) documented in this encounter Care Teams Developer Relations Manager Relationship Specialty Start Date End Date Elyse Paredes MD PCP - General Family Practice 03/19/17 [address] [place], [place] [id number] documented as of this encounter
--- OUTSIDE RECORDS SUMMARY | 2022-07-02 13:53 | XMS_ITS | Encounter Summary ---
:1950 Author Organization [facility] Address [address] [place] [address] Care Team Providers Name Role Phone Elyse Paredes MD Primary Care Provider Encounter Details Date Type Department Care Team Description 02/10/2019 Notes/Orders [facility] Cancer Shaye Madrid hna Center at [facility], [facility] [place] [place] [id number] [place] [address] [phone] (Wo rk) Social History Tobacco Use Types [...] Team Description 08/13/2022 Appointment Radiology Denise Aguirre, TOBACCO GROWER, COUNTING MACHINE OPERATOR [address] [place], [place] [address] (Wo rk) 08/13/2022 Appointment Hematology and Oncology Denise Aguirre APRN, COUNTING MACHINE OPERATOR [address] [place], [place] [address] (Wo rk) documented as [...] filedocumented in this encounter Care Teams Human Resources Designate Relationship Specialty Start Date End Date Elyse Paredes MD PCP - General Family Practice 03/19/17 [address] [place] [address] documented as of this encounter
--- OUTSIDE RECORDS SUMMARY | 2022-07-02 13:53 | XMS_ITS | Encounter Summary ---
:1950 Author Organization [facility] Address [address] [place] [address] Care Team Providers Name Role Phone Elyse Paredes MD Primary Care Provider Encounter Details Date Type Department Care Team Description 02/10/2019 Office Visit [facility] Cancer Petrona Madrid neoplasm Center at [facility] JRODAN Aldana of left breast in Hospital 640 [facility] female, estrogen [address] [place], [place] receptor positive, [place] [address] unspecified site of [phone] (Wo rk) breast (HRC) (Primary Dx) Social History Tobacco Use Types Packs/Day Years Used Date Smoking Tobacco: Former Cigarettes Quit : 08/02/1981 Smokeless Tobacco: Never Alcohol Use Standard Drinks/Week Comments No 0 (1 standard drink = 0.6 oz pure alcoho l) Sex Assigned at Date Recorded Not on file documented as of this encounter Last Filed Vital Signs Vital Sign Reading Time Taken Comments Blood Pressure 136/69 02/10/2019 2:17 PM CDT Pulse 69 02/10/2019 2:17 PM CDT Temperature 36.9 ??C (98.5 ??F) 02/10/2019 2:17 PM CDT Respiratory Rate 20 02/10/2019 2:17 PM CDT Oxygen Saturation - - Inhaled Oxygen Concentration - - Weight 126.1 kg (278 lb) 02/10/2019 2:17 PM CDT Height - - Body Mass Index 50.85 09/16/2018 11:15 AM SHANKER OUT documented in this encounter Patient Instructions Patient InstructionsElisa Madrid MBBS - 02/10/2019 1:50 PM CDT Dear Marci, It was a pleasure to see you. Plan: 1. Start anastrozole 1 mg daily. 2. Calcium 1200 mg and vitamin D 1000 units per day through diet and supplement. 3. In 4-6 months: Diagnostic mammograms and follow up with Nanda Vaca, FITNESS FLOOR ATTENDANT, BRAND PROTECTION MANAGER. Please do not hesitate to contact us at [phone] any time. Thank you. Sincerely, JORDAN Jiang.......02/10/2019 Appt scheduled/ AVS given/[facility] . ML 02/10/2019, 3:14 PM documented in this encounter Progress Notes Ruth Das MD - 02/10/2019 1:50 PM CDT Medical Oncology Note Date of Service: 02/10/2019 Cancer Summary (Printed and given to the patient): Diagnosis, Stage, Prognostic Factors: ?? 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 Interval History; Since her last visit, Marci has a continuous glucose monitor placed which is helping her blood sugars. She follows with Dr. Juan Cho from endocrinology and reports improvement in home blood glucose readings (108-175). She is also trying to be more physically active. She has been successfully losing weight and is very pleased with the outcome. We discussed endocrine therapy with her and she is open to starting medications today. Side effects of aromatase inhibitors were discussed including muscle/joint pains, osteoporosis and hot flashes. Recent DEXA scan shows normal BMD. Review of Systems: Detailed 12 point ROS was performed and was positive only for the symptoms mentioned above. ECOG performance status: 0. Past Medical History, Allergies, Current Medications linked to today's encounter were reviewed in [facility] and confirmed with the patient. Physical exam: BP 136/69 Pulse 69 Temp 98.5 ??F (36.9 ??C) (Tympanic) Resp 20 Wt 278 lb (126.1 kg) BMI 50.85 kg/m?? 1. General: alert, oriented X 3, comfortable. 2. HEENT exams reveal no significant abnormalities. 3. Neck is supple. 4. Lymphatic: No palpable cervical, supraclavicular, axillary or inguinal adenopathy. 5. Cardiovascular: No jugular venous distention. S1, S2 are normal. No S3/S4/rub/murmur. 6. Pulmonary: Normal vesicular breath sounds are heard in all lung silver bilaterally without any rales or rhonchi. 7. Abdomen: Soft, nontender, obese abdomen, No palpable hepatosplenomegaly or masses. Bowel sounds normoactive. 8. Extremities: No edema/ clubbing/ cyanosis. 9. Neurologic: No significant neurologic deficits. 10. Spine: No tenderness. 11. Skin: No significant rashes. 12. Psych: Mood and affect are normal. Decision-making capacity is intact. Assessment: A 68-year-old lady with postmenopausal stage I, hormone receptor positive, HER-2/sally negative breast cancer, low Oncotype DX recurrence score of 10 with estimated 10 year risk of distant recurrence of 3 percent with adjuvant endocrine therapy, status post partial mastectomy and sentinel lymph node sampling with microscopically negative margins, followed by adjuvant breast irradiation, complicated by moderate radiation dermatitis.. Adjuvant endocrine therapy decreases the risk of recurrence of stage I breast cancer by approximately 33-50 percent (relative risk reduction). Based on Oncotype DX recurrence score of 10, the jfwtepoit10 year risk of distant recurrence of three percent. Hence, the estimated risk of distant recurrence without adjuvant endocrine therapy is approximately six percent. Thus, the absolute benefit of adjuvant endocrine therapy in reducing the risk of distant recurrence is approximately three percent. Adjuvant aromatase inhibitor or tamoxifen therapy is associated with risks of weight gain, worseningher diabetes, hypertension, heart flashes, mood swings. Given poor control of diabetes previously, endocrine therapy was not initiated. Since her last visit, she reports improved blood glucose control.She has also been successful in losing weight. Plan: 1. Start anastrozole 1 mg daily. 2. Calcium 1200 mg and vitamin D 1000 units per day through diet and supplement. 3. In 4-6 months: Diagnostic mammograms and follow up with Nanda Vaca, FITNESS FLOOR ATTENDANT, BRAND PROTECTION MANAGER. Patient seen and plan discussed with Dr. Madrid. JORDAN Wade Hematology/Oncology Fellow 02/10/2019, 4:48 PM Michelle Barton RN - 02/10/2019 1:50 PM CDT Completed per physician's orders. Tricia Barton RN 8:41 AM 02/13/2019 Elisa Madrid MBBS - 02/10/2019 1:50 PM CDT I have seen the patient in association with Dr. Ruth Das MD, Oncology- Hematology Fellow, [facility], whose note from this visit reflects our combined findings, assessment and recommendations/plan. TT = [address] > 50%. JORDAN Jiang documented in this encounter Plan of Treatment Upcoming Encounters Date Type Specialty Care Team Description 08/13/2022 Appointment Radiology Denise Aguirre, FITNESS FLOOR ATTENDANT, BRAND PROTECTION MANAGER [address] [place], [place] [address] (Wo rk) 08/13/2022 Appointment Hematology and Oncology Denise Aguirre FITNESS FLOOR ATTENDANT, BRAND PROTECTION MANAGER [address] [place], [place] [address] (Wo rk) documented as [...] unspecified site of breast (HRC) - Primary documented in this encounter Care Teams Archivist Military History Relationship Specialty Start Date End Date Elyse Paredes MD PCP - General Family Practice 03/19/17 [address] [address] documented as of this encounter
--- OUTSIDE RECORDS SUMMARY | 2022-07-02 13:53 | XMS_ITS | Encounter Summary ---
:1950 Author Organization [facility] Address [address] [place] [address] Care Team Providers Name Role Phone Elyse Paredes MD Primary Care Provider Encounter Details Date Type Department Care Team Description 11/30/2018 [facility] Visit [facility] [address] [place] [id number] Social History Tobacco Use Types Packs/Day Years [...] Description 08/13/2022 Appointment Radiology Denise Aguirre APRN, SURVEYOR CHAIN HELPER [address] [place], [place] [address] (Wo rk) 08/13/2022 Appointment Hematology and Oncology Denise Aguirre APRN, SURVEYOR CHAIN HELPER [address] [place], [place] [address] (Wo rk) documented as [...] on filedocumented in this encounter Care Teams Physical Therapy Assistant Instructor Relationship Specialty Start Date End Date Elyse Paredes MD PCP - General Family Practice 03/19/17 [address] [place] [place], [place] [phone] documented as of this encounter
--- OUTSIDE RECORDS SUMMARY | 2022-07-02 13:53 | XMS_ITS | Encounter Summary ---
:1950 Author Organization [facility] Address [address] [place] [address] Care Team Providers Name Role Phone Elyse Paredes MD Primary Care Provider Reason for Visit Reason Onset Date Comments Refill 01/30/2019 humalog Encounter Details Date Type Department Care Team Description 01/30/2019 Refill Specialty Center 401 Freya Zaragoza MD Refill (humalog) Endocrinology Clinic [address] [place] [address] [place] [address] [phone] Social History Tobacco Use Types Packs/Day Years Used Date Smoking Tobacco: Former Cigarettes Quit : 08/02/1981 Smokeless Tobacco: Never Alcohol Use Standard Drinks/Week Comments No 0 (1 standard drink = 0.6 oz pure alcoho l) Sex Assigned at Date Recorded Not on file documented as of this encounter Nursing Notes Jacquelyn Matos RN - 01/30/2019 5:06 PM CDT Completed per physician's orders. Jacquelyn Matos RN 5:06 PM 01/30/2019 Interface, Out Surescripts Prov Query - 01/30/2019 3:25 PM CDT The following lab order(s) may be associated with the Result Note below: HGB A1C Notes recorded by Jacquelyn Matos RN on 11/30/2018 at 2:52 PM CDT Will discuss at office visit on 12/02/2018 Jacquelyn Matos RN 11/30/2018, 2:52 PM ------ Notes recorded by Manasa Salas MD on 11/29/2018 at 7:31 PM CDT Labs noted She will follow with dr zaragoza as scheduled ------ Notes recorded by Yosi Greco RN on 11/29/2018 at 8:01 AM CDT Provider out of the office, rescheduled.Yosi Greco RN ------ Notes recorded by Yosi Greco, PAYTON on 11/22/2018 at 7:10 AM CDT Appointment with Dr Salas 11/29/2018.Yosi Greco RN Interface, Out EventMama Prov Query - 01/30/2019 3:25 PM CDT The following lab order(s) may be associated with the following Patient Result Comment (Entered by Juan Zaragoza MD at 12/02/2018 9:44 AM): HGB A1C HgA1c goal is less than 8.0 with a diagnosis of plrkyrhyQxO4i (estimated Average Glucose) (%) (mg/dL)5 97 6 126 7 154 8 183 9 212 10 240 11 269 12 298 Normal blood sugar A1c 6.4 and lessPrediabetes diagnosed by an A1c 5.7-6.4Diabetes diagnosed by an A1c 6.5 and above Interface, Out EventMama Prov Query - 01/30/2019 3:25 PM CDT insulin lispro (HUMALOG) 100 UNIT/ML injection vial Diabetes - Insulin -> The requested medication was previously set to Historical. -> HBA1C is abnormal (8.3 % is greater than 7.9 %) -> Refill x 3 months (until due for a(n) HBA1C check) -> Calculate quantity and refills manually. They could not be estimated due to missing or unreadable information. Last qualifying visit: 12/02/2018 (in Endocrinology with JUAN ZARAGOZA) Next scheduled visit: 04/07/2019 (in Endocrinology with JUAN ZARAGOZA) Last ordered by UNKNOWN, PHYSICIAN: 11/15/2018 (76 days ago as Historical on 11/15/2018 by ZELALEM ADAM), Sig: inject 6-10 units subcutaneously. (unchanged) HBA1C: 8.3 % on 11/21/2018 Powered by [employer], Reference: [id number], 01/30/2019 3:25:23 PM CDT, Pool: [facility] ([id number]) Gabrielle Alvarez - 01/30/2019 3:23 PM CDT Patient is using 15 units, x3 times a day with CGM and has 12 pounds. Please verify correct prescription dose. Gabrielle Alvarez documented in this encounter Plan of Treatment Upcoming Encounters Date Type Specialty Care Team Description 08/13/2022 Appointment Radiology Denise Aguirre, AUTO BODY MAN, PROFESSOR OF GEOGRAPHY [address] [place], [place] [address] (Wo rk) 08/13/2022 Appointment Hematology and Oncology Denise Aguirre APRN, PROFESSOR OF GEOGRAPHY [address] [place], [place] [address] (Wo rk) documented as [...] on filedocumented in this encounter Care Teams Mobile Application Tester Relationship Specialty Start Date End Date Elyse Paredes MD PCP - General Family Practice 03/19/17 [address] [place] [address] documented as of this encounter
--- OUTSIDE RECORDS SUMMARY | 2022-07-02 13:53 | XMS_ITS | Encounter Summary ---
:1950 Author Organization [facility] Address [address] [place] [address] Care Team Providers Name Role Phone Elyse Paredes MD Primary Care Provider Encounter Details Date Type Department Care Team Description 01/30/2019 Refill Order Specialty Center 401 Freya Zaragoza MD Endocrinology Clinic [address] [place] [address] [place] [address] [phone] Social History Tobacco Use Types Packs/Day Years Used Date Smoking Tobacco: Former Cigarettes Quit : 08/02/1981 Smokeless Tobacco: Never Alcohol Use Standard Drinks/Week Comments No 0 (1 standard drink = 0.6 oz pure alcoho l) Sex Assigned at Date Recorded Not on file documented as of this encounter Nursing Notes Interface, Out Surescripts Prov Query - 01/30/2019 3:25 PM CDT ORDER THE FOLLOWING: - HEMOGLOBIN A1C: Pended to encounter. SCHEDULE THE FOLLOWING: - HEMOGLOBIN A1C BY: 02/19/2019 (Coming due as of 02/19/2019 for dulaglutide (TRULICITY) 1.5 MG/0.5ML injeciton pen) - LAST QUALIFYING VISIT IN ENDOCRINOLOGY WITH JUAN ZARAGOZA - NEXT SCHEDULED VISIT IN ENDOCRINOLOGY WITH JUAN ZARAGOZA - NEXT LAB APPOINTMENT: None Powered by [employer], Reference: [id number], 01/30/2019 3:25:23 PM CDT, Pool: [facility] TEAM ([id number]) CISE SCIENCE INSTRUCTOR Interface, Out 3TIER Prov Query - 01/30/2019 3:25 PM CDT [...] as scheduled ------ Notes recorded by Yosi Greco, PAYTON on 11/29/2018 at 8:01 AM CDT Provider out of the office, rescheduled.Yosi Greco RN ------ Notes recorded by Yosi Greco RN on 11/22/2018 at 7:10 AM CDT Appointment with Dr Salas 11/29/2018.Yosi Greco RN CISE SCIENCE INSTRUCTOR Interface, Out 3TIER Prov Query - 01/30/2019 3:25 PM CDT The following lab order(s) may be associated with the following Patient Result Comment (Entered by Juan Zaragoza MD at 12/02/2018 9:44 AM): HGB A1C HgA1c goal is less than 8.0 with a diagnosis of xffygupcSmU7o (estimated Average Glucose) (%) (mg/dL)5 97 6 126 7 154 8 183 9 212 10 240 11 269 12 298 Normal blood sugar A1c 6.4 and lessPrediabetes diagnosed by an A1c 5.7-6.4Diabetes diagnosed by an A1c 6.5 and above CISE SCIENCE INSTRUCTOR documented in this encounter Plan of Treatment Upcoming Encounters Date Type Specialty Care Team Description 08/13/2022 Appointment Radiology Denise Aguirre, GRIFFIN, CUT OFF MACHINE UNLOADER [address] [place], [place] [address] (Wo rk) 08/13/2022 Appointment Hematology and Oncology Denise Aguirre APRN, CUT OFF MACHINE UNLOADER [address] [place], [place] [address] (Wo rk) documented as [...] medications documented in this encounter Care Teams Merry Go Round Attendant Relationship Specialty Start Date End Date Elyse Paredes MD PCP - General Family Practice 03/19/17 [address] [place], [place] [id number] documented as of this encounter
--- OUTSIDE RECORDS SUMMARY | 2022-07-02 13:53 | XMS_ITS | Encounter Summary ---
:1950 Author Organization [facility] Address [address] [place] [address] Care Team Providers Name Role Phone Elyse Paredes MD Primary Care Provider Encounter Details Date Type Department Care Team Description 12/09/2018 Office Visit [facility] Petrona Madrid neoplasm Center at [facility] JORDAN Aldana of left breast in Hospital [address] [facility] female, estrogen [address] [place], [place] receptor positive, [place] [id number] unspecified site of [phone] (Wo rk) breast (HRC) (Primary Dx) Social [...] Sign Reading Time Taken Comments Blood Pressure 148/58 12/09/2018 1:12 PM CDT Pulse 90 12/09/2018 1:12 PM CDT Temperature 36.8 ??C (98.3 ??F) 12/09/2018 1:12 PM CDT Respiratory Rate 18 12/09/2018 1:12 PM CDT Oxygen Saturation - - Inhaled Oxygen Concentration - - Weight 133.3 kg (293 lb 12.8 oz) 12/09/2018 1:12 PM CDT Height - - Body Mass Index 53.74 09/16/2018 11:15 AM MILK PICKUP TRUCK DRIVER documented in this encounter Patient Instructions Patient InstructionsElisa Madrid MBBS - 12/09/2018 1:20 PM CDT Dear Marci, It was a pleasure to meet you. Plan: 1. In approximately 2 months: DEXA scan, serum 25-hydroxy vitamin D, creatinine, calcium, phosphorusprior to the visit with me. Please do not hesitate to contact us at [phone] any time. Thank you. Sincerely, JORDAN Jiang.......12/09/2018 documented in this encounter Progress Notes Elisa Madrid MBBS - 12/09/2018 1:20 PM CDT Medical Oncology Note Date of Service: 12/09/2018 Cancer Summary (Printed and given to the patient): Diagnosis, Stage, Prognostic Factors: ?? 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 Interval History; Since her last visit me she has received adjuvant breast radiation, completed 12/02/2018, complicated by moderate radiation dermatitis. Her diabetes is not under control. She has continuous glucose monitor. At times her blood sugars are around 300. She is being closely followed by Dr. Juan hCo from endocrinology. She continues to have exertional dyspnea, which is chronic and stable. She is desperately trying to lose weight, but has unfortunately not been successful. Review of Systems: Detailed 12 point ROS was performed and was positive only for the symptoms mentioned above. ECOG performance status: 0. Past Medical History, Allergies, Current Medications linked to today's encounter were reviewed in [facility] and confirmed with the patient. Physical exam: BP (!) 148/58 Pulse 90 Temp 98.3 ??F (36.8 ??C) (Temporal Artery) Resp 18 Wt 293 lb 12.8 oz (133.3 kg) BMI 53.74 kg/m?? 1. General: alert, oriented X 3, comfortable. 2. HEENT exams reveal no significant abnormalities. 3. Neck is supple. 4. Lymphatic: No palpable cervical, supraclavicular, axillary or inguinal adenopathy. 5. Left breast has moderate radiation dermatitis with peeling/desquamation of the skin over the lateral aspect and under the breast. No signs of active infection. 6. Cardiovascular: No jugular venous distention. S1, S2 are normal. No S3/S4/rub/murmur. 7. Pulmonary: Normal vesicular breath sounds are heard in all lung silver bilaterally without any rales or rhonchi. 8. Abdomen: Soft, nontender. No palpable hepatosplenomegaly or masses. Bowel sounds normoactive. 9. Extremities: No edema/ clubbing/ cyanosis. 10. Neurologic: No significant neurologic deficits. 11. Spine: No tenderness. 12. Skin: No significant rashes. 13. Psych: Mood and affect are normal. Decision-making [...] Oncotype DX recurrence score of 10, the [id number] year risk of distant recurrence of three percent. Hence, the estimated risk of distant recurrence without adjuvant endocrine therapy is approximately six percent. Thus, the absolute benefit of adjuvant endocrine therapy in reducing the risk of distant recurrence is approximately three percent. Adjuvant aromatase inhibitor or tamoxifen therapy is associated with risks of weight gain, worseningher diabetes, hypertension, heart flashes, mood swings. As her diabetes is not under good control and she is continuing to gain weight despite trying to lose weight, the absolute benefit of adjuvant endocrine therapy may be outweighed by its potential risks in her case. I had a long discussion with Marci and explained all of the above in lay language. She is very intelligent, verbalized clear understanding, asked appropriate questions, which have been answered to her apparent satisfaction. If her diabetes comes under better control and she stops gaining weight over the next couple of months, then she will consider starting adjuvant endocrine therapy based on baseline bone mineral density. Plan: 1. DEXA scan, serum 25-hydroxy vitamin D, creatinine, calcium, phosphorus prior to the visit with me. If her diabetes comes under better control and she stops gaining weight over the next couple of months, then she will consider starting adjuvant endocrine therapy based on baseline bone mineral density. JORDAN Jiang Lilly Kim RN - 12/09/2018 1:20 PM CDT Completed per physician's orders. Lilly Kim RN 3:17 PM 12/09/2018 documented in this encounter Plan of Treatment Upcoming Encounters Date Type Specialty Care Team Description 08/13/2022 Appointment Radiology Denise Aguirre APRN, REGISTERED REPRESENTATIVE [address] [place], [place] [address] (Wo rk) 08/13/2022 Appointment Hematology and Oncology Denise Aguirre APRN, REGISTERED REPRESENTATIVE [address] [place], [place] [address] (Wo rk) documented [...] Primary documented in this encounter Care Teams Financial Accounting Analyst Relationship Specialty Start Date End Date Elyse Paredes MD PCP - General Family Practice 03/19/17 [address] [place], [place] [id number] documented as of this encounter
--- OUTSIDE RECORDS SUMMARY | 2022-07-02 13:53 | XMS_ITS | Encounter Summary ---
:1950 Author Organization [facility] Address [address] [place] [address] Care Team Providers Name Role Phone Elyse Paredes MD Primary Care Provider Encounter Details Date Type Department Care Team Description 05/09/2019 Refill Order Specialty Center 401 Freya Cho MD Endocrinology Clinic [address] [place] [address] [place] [address] [phone] Social History Tobacco Use Types Packs/Day Years [...] Description 08/13/2022 Appointment Radiology Denise Aguirre APRN, MANUFACTURING TEST ENGINEER [address] [place], [place] [address] (Wo rk) 08/13/2022 Appointment Hematology and Oncology Denise Aguirre APRN, MANUFACTURING TEST ENGINEER [address] [place], [place] [address] (Wo rk) documented as [...] medications documented in this encounter Care Teams Sharebroker Relationship Specialty Start Date End Date Elyse Paredes MD PCP - General Family Practice 03/19/17 [address] [place] [address] documented as of this encounter
--- OUTSIDE RECORDS SUMMARY | 2022-07-02 13:53 | XMS_ITS | Encounter Summary ---
:1950 Author Organization [facility] Address [address] [place] [address] Care Team Providers Name Role Phone Elyse Paredes MD Primary Care Provider Encounter Details Date Type Department Care Team Description 12/09/2018 Notes/Orders [facility] Shaye Madrid hna Center at [facility], [facility] [id number] [place] [address] [phone] (Wo rk) Social History Tobacco Use Types [...] Team Description 08/13/2022 Appointment Radiology Denise Aguirre, AUDIO VISUAL COLLECTIONS COORDINATOR, FISH FARM LABORER [address] [place], [place] [address] (Wo rk) 08/13/2022 Appointment Hematology and Oncology Denise Aguirre APRN, FISH FARM LABORER [address] [place], [place] [address] (Wo rk) documented as [...] on filedocumented in this encounter Care Teams Content Management Consultant Relationship Specialty Start Date End Date Elyse Paredes MD PCP - General Family Practice 03/19/17 [address] [place] [address] documented as of this encounter
--- OUTSIDE RECORDS SUMMARY | 2022-07-02 13:53 | XMS_ITS | Encounter Summary ---
:1950 Author Organization [facility] Address [address] [place] [address] Care Team Providers Name Role Phone Elyse Paredes MD Primary Care Provider Encounter Details Date Type Department Care Team Description 12/02/2018 Office Visit [facility] at Jia Trujillo MD [facility] Radiation Therapy [address] [place] [address] Social History Tobacco Use Types Packs/Day Years Used Date Smoking Tobacco: Former Cigarettes Quit : 08/02/1981 Smokeless Tobacco: Never Alcohol Use Standard Drinks/Week Comments No 0 (1 standard drink = 0.6 oz pure alcoho l) Sex Assigned at Date Recorded Not on file documented as of this encounter Last Filed Vital Signs Vital Sign Reading Time Taken Comments Blood Pressure 155/73 12/02/2018 10:32 AM CDT Pulse 84 12/02/2018 10:32 AM CDT Temperature - - Respiratory Rate 16 12/02/2018 10:32 AM CDT Oxygen Saturation - - Inhaled Oxygen Concentration - - Weight 130.6 kg (288 lb) 12/02/2018 10:32 AM CDT Height - - Body Mass Index 52.68 09/16/2018 11:15 AM ADULT PSYCHIATRIST documented in this encounter Progress Notes Deloris Trujillo MD - 12/02/2018 10:00 AM CDT Radiation Therapy Under Treatment Visit (UTV) Note Diagnosis: 68-year-old female with recently diagnosed pathologic stage I infiltrating ductal carcinoma of the left breast as described above. 1.2 cm. [place] grade 2. Margins negative. The closest is 7 mm. ER/WI positive, HER-2 negative. Oncotype recurrence score 10. Adjuvant hormonal therapy is planned per Dr. Madrid. Intent of therapy: Curative Medical Oncologist: JORDAN Martinez Primary Care: Elyse Paredes MD Date of encounter: 12/02/2018 Patient has completed 19 of 19 fractions Total dose to date: 5056 of planned 5056 cGy All verification films have been reviewed and approved Comments: Marci is overall doing well. She reports that the bruising and erythema that were present at the start of radiation have now improved considerably. Her primary difficulty has been controllingher diabetes. She was supposed to meet with her helmet coverer today but that doctor is out sick so her appointment has been rescheduled. Her axilla has become sore. She didn't like the texture of the Aquaphor. The patient reports pain at a level of: Pain Score: No Pain (0) BP (!) 155/73 Pulse 84 Resp 16 Wt 288 lb (130.6 kg) BMI 52.68 kg/m?? Wt Readings from Last 4 Encounters: 12/02/18 289 lb (131.1 kg) 12/02/18 288 lb (130.6 kg) 11/29/18 288 lb 6 oz (130.8 kg) 11/22/18 289 lb 6 oz (131.3 kg) On exam, the central breast is very mildly erythematous. The axillary though is dark red with dry desquamation. ECOG Perrformance status: 0 - Fully active; no performance restrictions Assessment: Tolerating therapy well Plan: Continue RT. Jergens for central breast. Sample of CamWell given. Also prescription for Silvadene as an alternative and to use if any of the fragile skin opens. Deloris Trujillo MD Radiation Oncology [phone] documented in this encounter Plan of Treatment Upcoming Encounters Date Type Specialty Care Team Description 08/13/2022 Appointment Radiology Denise Aguirre APRN, COILED TUBING SUPERVISOR [address] [place], [place] [address] (Wo rk) 08/13/2022 Appointment Hematology and Oncology Denise Aguirre APRN, COILED TUBING SUPERVISOR [address] [place], [place] [address] (Wo rk) documented as [...] on filedocumented in this encounter Care Teams Numberer And Wirer Relationship Specialty Start Date End Date Elyse Paredes MD PCP - General Family Practice 03/19/17 [address] [place] [address] documented as of this encounter
--- OUTSIDE RECORDS SUMMARY | 2022-07-02 13:54 | XMS_ITS | Encounter Summary ---
:1950 Author Organization [facility] Address [address] [place] [address] Care Team Providers Name Role Phone Elyse Paredes MD Primary Care Provider Encounter Details Date Type Department Care Team Description 11/21/2018 Lab Visit Specialty Center Uncontro lljoey type 2 diabetes Laboratory mellitus, with long-term [address] current use of insulin ([facility]) [place] [address] Social History Tobacco Use Types Packs/Day Years Used Date Smoking Tobacco: Former Cigarettes Quit : 08/02/1981 Smokeless Tobacco: Never Alcohol Use Standard Drinks/Week Comments No 0 (1 standard drink = 0.6 oz pure alcoho l) Sex Assigned at Date Recorded Not on file documented as of this encounter Progress Notes Yosi Greco RN - 11/21/2018 1:00 PM CDT Appointment with Dr Salas 11/29/2018.Yosi Greco RN Yosi Greco RN - 11/21/2018 1:00 PM CDT Provider out of the office, rescheduled.Yosi Greco RN Jacquelyn Matos RN - 11/21/2018 1:00 PM CDT Will discuss at office visit on 12/02/2018 Jacquelyn Matos RN 11/30/2018, 2:52 PM documented in this encounter Plan of Treatment Upcoming Encounters Date Type Specialty Care Team Description 08/13/2022 Appointment Radiology Denise Aguirre, TECHNICAL REP, PIPE FITTER HELPER [address] [place], [place] [address] (Wo rk) 08/13/2022 Appointment Hematology and Oncology Denise Aguirre APRN, PIPE FITTER HELPER [address] [place], [place] [address] (Wo rk) documented as [...] Associated Diagnosis Comme nts ALBUMIN/CREAT RATIO Routine 11/21/2018 1:58 PM Uncontrolled ty pe 2 Results for this CDT diabetes mellitus, procedure are in with long-term the results current use of section. insulin (HRC) LDL CHOLESTEROL, Routine 11/21/2018 12:56 Uncontrolled type 2 Results for this DIRECT MEASURED PM CDT diabetes mellitus, proced ure are in with long-term the results current use of section. insulin (HRC) CREATININE / GFR Routine 11/21/2018 12:56 Uncontrolled type 2 Results for this PM CDT diabetes mellitus, procedure are in with long-term the results current use of section. insulin (HRC) HGB A1C Routine 11/21/2018 12:56 Uncontrolled type 2 Resu lts for this PM CDT diabetes mellitus, procedure are in with long-term the results current use of section. insulin (HRC) documented in this encounter Results Microalb / Creat Ratio (11/21/2018 1:58 PM CDT) [facility] Method Time Signature Albumin, 7.2 mg/L 11/21/2018 [facility] Urine, Random 5:34 PM CDT CENTRAL LAB Creatinine, 118 >20 mg/dL 11/21/2018 [facility] Urine, Random 5:34 PM CDT CENTRAL LAB Albumin/Creati 6 <30 mg/g 11/21/2018 [facility] nine Ratio, 5:34 PM CDT CENTRAL LAB Urine, Random Specimen Anatomical Collection Method Collection Time Receive d Time (Source) Location / / Volume Laterality Urine,random Non-blood 11/21/2018 1:58 PM 9 1:58 Collection / CDT PM CDT Unknown Manasa Salas MD LAB_1 Performing Organization Address City/Special Care Hospital/ZIP Code Phon e Number [facility]AL LAB [address] [address] (ABNORMAL) HgbA1c (11/21/2018 12:56 PM CDT) [facility] Method Time Signature Hemoglobin A1C 8.3 (H) <=5.6 % 11/21/2018 [facility] 6:37 PM CDT CENTRAL LAB Specimen Anatomical Collection Method Collection Time Receive d Time (Source) Location / / Volume Laterality Blood 11/21/2018 12:56 11/21/2018 PM CDT 12:56 PM CDT Narrative [facility] CENTRAL LAB - 11/21/2018 6:37 PM CDT For patients not previously diagnosed with diabetes: 5.7-6.4%: Increased risk for diabetes 6.5% and greater: Diagnostic for diabete s For patients diagnosed with diabetes: <8.0%: Goal of therapy for ages 18-75 Clinicians may recommend a higher or low er goal for specific individuals. Manasa Salas MD LAB_1 Performing Organization Address City/State/ZIP [facility] Phon e Number [facility] [address] [address] (ABNORMAL) Creatinine / GFR (11/21/2018 12:56 PM CDT) Patholo gist Method Time Signature Creatinine 1.31 (H) 0.55 - 11/21/2018 [facility] 1.02 5:27 PM CDT CENTRAL LAB mg/dL GFR, Estimated 42 (L) >60 11/21/2018 [facility] mL/min/1. 5:27 PM CDT CENTRAL LAB 73m2 GFR, Est If 49 (L) >60 11/21/2018 [facility] mL/min/1. 5:27 PM CDT CENTRAL LAB Samoan 73m2 Specimen Anatomical Collection Method Collection Time Receive d Time (Source) Location / / Volume Laterality Blood 11/21/2018 12:56 11/21/2018 PM CDT 12:56 PM CDT Narrative [facility] C[facility]AL [facility] - 11/21/2018 5:27 PM CDT The National Kidney Disease Education Pr ogram suggests measuring Cystatin C in patients with eGFRcrea of 45 to 59 ml/mi n/1.73^2 who do not have other markers of kidney damage (i.e. elevated urine Album in/Creatinine Ratio or a prior Cystatin C confirming the presence of chronic kidne y disease). Manasa Salas MD LAB_1 Performing Organization Address [facility] Phon e Number [facility] [address] [address] LDL Direct (11/21/2018 12:56 PM CDT) P athologist Signature LDL, Direct 94 <=130 11/21/2018 [facility] mg/dL 5:27 PM CDT CENTRAL LAB Specimen Anatomical Collection Method Collection Time Receive d Time (Source) Location / / Volume Laterality Blood 11/21/2018 12:56 11/21/2018 PM CDT 12:56 PM CDT Manasa Salas MD LAB_1 Performing Organization Address [facility] Phon e Number [facility] [address] [address] documented in this encounter Visit Diagnoses Diagnosis Uncontrolled type 2 diabetes mellitus, w ith long-term current use of insulin documented in this encounter Care Teams Simonizer Relationship Specialty Start Date End Date Elyse Paredes MD PCP - General [facility] Practice 03/19/17 [address] [place] [address] documented as of this encounter
--- OUTSIDE RECORDS SUMMARY | 2022-07-02 13:54 | XMS_ITS | Encounter Summary ---
:1950 Author Organization [facility] Address [address] [place] [address] Care Team Providers Name Role Phone Elyse Paredes MD Primary Care Provider Reason for Visit Reason Comments Lymphedema Therapies (Routine) - Closed Specialty Diagnoses / Procedures Referred By Contact Refer red To Contact Diagnoses Malignant neoplasm of left breast in female, estrogen receptor positive, unspecified site of breast (HRC) S/P lumpectomy, left breast Maryellen Beaulieu MD [address] [place] [address] Referral ID Status Reason Start Date Expiration Date Visits Requ ested Visits Authorized [id number] Closed 09/30/2018 11/29/2018 1 1 Encounter Details Date Type Department Care Team Description 11/01/2018 Office Visit Liana Paige Post-mast ectomy lymphedema syndrome (Primary Dx); [facility] neoplasm of left breast in female, estrogen receptor positive, unspecified site of breast (HRC) Occupational Therapy OTR/L [address] [place], [place] [id number] Social History Tobacco Use Types Packs/Day Years Used Date Smoking Tobacco: Former Cigarettes Quit : 08/02/1981 Smokeless Tobacco: Never Alcohol Use Standard Drinks/Week Comments No 0 (1 standard drink = 0.6 oz pure alcoho l) Sex Assigned at Date Recorded Not on file documented as of this encounter Progress Notes Liana Baez, CARMENR/L - 11/01/2018 12:00 PM CDT [facility] LYMPHEDEMA SCREENING & EDUCATION INITIAL EVALUATION ASSESSMENT Patient presents with referral diagnosis of Malignant neoplasm of left breast in female, estrogen receptor positive, unspecified site of breast (HRC) [C50.912, Z17.0] ??- Primary , S/P lumpectomy, leftbreast with 4 sentinel nodes removed. Will be undergoing radiation treatment. DOS on: 09/16/[address] Maryellen Beaulieu.. Restrictions / precautions include: none indicated SOCIAL HISTORY: Patient's employment status retired and patient's social support: friends. Patient enjoys exercise at cardiac rehab. Note barriers to treatment include: 4 nodes removed from left sentinel. Radiation:will complete 20 issues. Sleep apnea. Obesity . After review, including review of past medical history, diagnostic tests and medications, it was found that patient demonstrates impairments in the following: Patient demonstrates impairments in scarring, potential for lymphedema and need for education regarding lymphedema. Pt expresses no concerns today. Skilled Lymphedema Therapy performed today to reach goals listed below. Goals: To be completed within 1 treatments. Patient will understand signs and symptoms of lymphedema and understand ways to decrease susceptibility to lymphedema. MET Patient will be educated regarding lymphedema and precautions. MET Patient will be educated and follow through with good skin care techniques. MET Patient will be educated regarding a need for a compression garment and supplier. MET Patient will be educated and verbalize understanding on scar massage and will begin at 6 weeks post op. MET PLAN Plan for Next Session: D/C lymphedema treatment. Patient demonstrates adequate understanding of signs and symptoms of lymphedema and patient is aware to contact PCP if signs/symptoms arise in future and to obtain lymphedema consult. Treatment Plan: Manual Therapy Therapeutic Exercise Therapeutic Activities Self-Care/Home Management Training Frequency & Duration of Treatment: 1 sessions every week. Expected Total Visits: 1. VISIT INFORMATION Medicare Insurance Info: Total Units Used (including today): Today's Visit Number: 1 Progress Note Needed at Visit Number: 10 Certification Period: 11/01/2018 - 01/29/19 Medical Diagnosis: Malignant neoplasm of left breast in female, estrogen receptor positive, unspecified site of breast (HRC) [C50.912, Z17.0] ??- Primary S/P lumpectomy, left breast Past Medical History, Diagnostic Tests, and Medications: Reviewed in Workers On Call. Barriers/Restrictions: 4 nodes removed from left sentinel. Chemotherapy N/A. Radiation to left breast and axilla. Sleep apnea. Diabetes. Obesity . SUBJECTIVE No concerns since surgery in September. Pt states she has been moving her arm since surgery as instructed by nurse. Pain: occasional nerve pain and Current: 0/10 Current Level of Function: Independent in self care and household activities Current Family/Community Support: friends Patient's Goals: Education as to risk for lymphedema OBJECTIVE Estimated body mass index is 52.68 kg/m?? as calculated from the following: Height as of 09/16/18: 5' 2 (1.575 m). Weight as of 10/27/18: 288 lb (130.6 kg). Sensation: per patient report and WITHIN NORMAL LIMITS Wound/Incision: N/A Scar: Location: Left breast and axilla Adherence: None Hardness: Mild Flat Coloration: [place]- healing Skin: Within normal limits. Range of Motion: within normal limits Stemmer Sign: Right upper extremity negative and Left upper extremity negative Edema: N/A Volume: Measured in sitting with arm in supination Right Arm Patient Vitals for the past 3600 hrs: MC Heads 0cm 4cm 8cm 12cm 16cm 20cm 24cm 28cm 32cm 36cm 40cm Calculation 11/01/18 1200 19.4 cm 18.2 cm 20.3 cm 25 cm 27 cm 29.5 cm 30.8 cm 31.5 cm 34.5 cm 40 cm 45 cm 47 cm 3800.23 ml Left Arm Patient Vitals for the past 3600 hrs: MC Heads 0cm 4cm 8cm 12cm 16cm 20cm 24cm 28cm 32cm 36cm 40cm Calculation Girth Difference 11/01/18 1200 18.8 cm 17.3 cm 19 cm 23.8 cm 27.5 cm 30 cm 31 cm 33 cm 33.8 cm 40.5 cm 44 cm 48 cm 3807.54 ml 0.19 % THERAPY OUTCOMES No outcome data collected. TODAY'S SESSION Initial Evaluation: 35 minutes A Moderate Complexity Occupational Therapy Evaluation CPT 99112 was completed. Occupational profile/history: expanded review of records and medical history. Assessment: 3-5 performance deficits. Please see function and assessment sections. Clinical decision making: consideration of several treatment options and patient may have co-morbidities. Self Care and Home Management: 20 minutes. Education regarding lymphedema, lymphedema precautions and risk reduction practices. Education about how to safely return to activities including: exercise, household activities. Instruction in lymphatic stimulation exercises with handout issued. Instruction in scar massage. Patient's Response to Therapy: Appreciative of education Is aware of risk and precautions Home Program: Skin care/healthy habits to reduce risk for lymphedema Lymph stim Scar massage Timed Code Minutes: 20 minutes Untimed Code Minutes: 35 minutes Total Treatment Time: 55 minutes Matilde Baez, OTR/L, CHT, CLT 11/01/2018 Associated attestation - Maryellen Beaulieu MD - 11/01/2018 10:37 PM CDT Maryellen Beaulieu MD 11/01/2018, 10:37 PM documented in this encounter Plan of Treatment Upcoming Encounters Date Type Specialty Care Team Description 08/13/2022 Appointment Radiology Denise Aguirre, GAS STATION OPERATOR, STILL RUNNER [address] [place], [place] [address] (Wo rk) 08/13/2022 Appointment Hematology and Oncology Denise Aguirre GAS STATION OPERATOR, STILL RUNNER [address] [place], [place] [address] (Wo rk) Scheduled Referrals Name Type Priority Associated Diagnoses Order S chedule Lymphedema Therapy Referral Routine Malignant neoplasm of left Ordered: 09/30/2018 breast in female, estrogen receptor positive, unspecified site of breast (HRC) S/P lumpectomy, left breast documented as of this encounter Goals Goal [...] as of this encounter Visit Diagnoses Diagnosis Post-mastectomy lymphedema syndrome - Pr imary Postmastectomy lymphedema syndrome Malignant neoplasm of left breast in fem grey, estrogen receptor positive, unspecified site of breast (HRC) documented in this encounter Care Teams Health Care Legal Assistant Relationship Specialty Start Date End Date Elyse Paredes MD PCP - General Family Practice 03/19/17 [address] [place] [address] documented as of this encounter
--- OUTSIDE RECORDS SUMMARY | 2022-07-02 13:54 | XMS_ITS | Encounter Summary ---
:1950 Author Organization [facility] Address [address] [place] [address] Care Team Providers Name Role Phone Elyse Paredes MD Primary Care Provider Encounter Details Date Type Department Care Team Description 11/01/2018 Office Visit [facility] at Jia Trujillo MD [facility] Radiation Therapy [address] [place] [address] Social History Tobacco Use Types Packs/Day Years Used Date Smoking Tobacco: Former Cigarettes Quit : 08/02/1981 Smokeless Tobacco: Never Alcohol Use Standard Drinks/Week Comments No 0 (1 standard drink = 0.6 oz pure alcoho l) Sex Assigned at Date Recorded Not on file documented as of this encounter Progress Notes Deloris Trujillo MD - 11/01/2018 10:00 AM CDT Radiation Therapy Treatment Planning Note Diagnosis: Left sided breast cancer Brief History: 68-year-old female with recently diagnosed pathologic stage I infiltrating ductal carcinoma of the left breast as described above. 1.2 cm. Oli grade 2. Margins negative. The closest is 7 mm. ER/WI positive, HER-2 negative. Oncotype recurrence score 10. Adjuvant hormonal therapy is planned per Dr. Madrid Simulation: I am ordering a simulation to be done to determine patient positioning and establish field parameters. Immobilization Devices: A thorawedge will be utilized to immobilize the patient for treatment. I am ordering two CT scans be performed for treatment planning purposes, one with Free Breathing andone with Deep Inspiratory Breath Hold (DIBH). The two CT scans are medically necessary to determine if this patient will benefit from DIBH while being treated, allowing us to spare more of her criticalstructures, the heart, lung and possibly the left anterior descending artery (LAD). Treatment Parameters: The involved breast will be treated through tangential isocentric silver to a dose of 4256 cGy in 16fractions. An additional 1000 cGy in 4 fractions through either a multifield photon technique or en face electron technique will be delivered to the tumor bed as identified on the planning CT and by the scar. 3D Plan: I am ordering two 3D Forward Planning computer plans to be created for this patient. One plan from the free breathing CT and one from the DIBH CT. 3D is deemed medically necessary and preferable to conventional radiation therapy in order to deliver the necessary dose to the at-risk tissues and tumor while minimizing the dose to the surrounding normal tissues. Two plans are needed and deemed medically necessary to determine if this patient would benefit from DIBH technique and allow us to spare more of the heart, lung and LAD. The regional account executive and I will analyze the results of both plans and determine if DIBH will benefit thispatient as described above. If dosimetry and I determine that DIBH will benefit the patient and therefore is medically necessary, our staff will ice skating coach the patient's breathing during treatment using therespiratory gating equipment, performing this technique on a daily basis. Dose Verification: I am ordering dose verification and secondary dose verification to be performed by the physics staff using Mobius. This will ensure accurate delivery of the dose to the treatment area. Weekly Physics Chart Check: I am ordering a weekly physics chart check to be performed by the physicist to verify compliance with my orders and all quality process auditor measures. IGRT: I am ordering weekly MV imaging of all ports to verify field position and accuracy of treatment. If the boost plan requires a multifield photon setup, then daily CBCT imaging will necessary in addition. If OSMS is available, I am ordering infra-fraction tracking with OSMS to be performed daily to ensure precise patient positioning and treatment accuracy. The use of infra-fraction tracking will help ensure the accurate dose delivery to the at risk tissues and tumor volume while minimizing the dose to the surrounding normal tissues such as the heart lung and left anterior descending artery. Beam modifiers: I am ordering a custom MLC treatment device to be created for each unique field. Custom treatment devices are medically necessary to define the precise treatment area and limit dose to normal tissues and critical structures including lung and heart. NORMAL TISSUE DOSE-VOLUME CONSTRAINTS: Heart- 33% at <60Gy or 67% at <45 Gy or 100% at<40Gy Lungs (Right and Left) - Mean Dose < 20Gy or 37% <20Gy Start date: Treatment will begin within a week. Deloris Trujillo MD Radiation Oncology [phone] Deloris Trujillo MD - 11/01/2018 10:00 AM CDT Radiation Therapy Simulation Note Simulation Date: 11/01/2018 Diagnosis: Left sided breast cancer. Stage I The patient was brought to the simulator and placed in the supine position on a thorawedge with the arms abducted above the head. Wires were placed on the patient's skin with a superior wire just abovethe sternal notch, an inferior wire 1.5cm below the breast tissue, medial wire in the midline and lateral wire in the left mid-axillary line. The lumpectomy incision was also marked with a wire. The respiratory gating hardware and software was set up to monitor her breathing. The neck and thorax were then scanned using 3mm cuts using free breathing. No IV contrast was used. Subsequently, after verbalcoaching by me on deep breathing, a second CT was obtained during deep breath hold inspiration. The isocenter was determined from the images and subsequently marked on both the patient and the image set. The image sets were then transferred to the Layer treatment planning system. I was present and supervised the entire simulation procedure. Deloris Trujillo MD Radiation Oncology [phone] documented in this encounter Plan of Treatment Upcoming Encounters Date Type Specialty Care Team Description 08/13/2022 Appointment Radiology Denise Aguirre APRN, MANAGER TELEMETRY [address] [place], [place] [address] (Wo rk) 08/13/2022 Appointment Hematology and Oncology Denise Aguirre APRN, MANAGER TELEMETRY [address] [place], [place] [address] (Wo rk) documented as [...] on filedocumented in this encounter Care Teams Manager Hvac Relationship Specialty Start Date End Date Elyse Paredes MD PCP - General Family Practice 03/19/17 [address] [place] [address] documented as of this encounter
--- OUTSIDE RECORDS SUMMARY | 2022-07-02 13:54 | XMS_ITS | Encounter Summary ---
:1950 Author Organization [facility] Address [address] [place] [address] Care Team Providers Name Role Phone Elyse Paredes MD Primary Care Provider Encounter Details Date Type Department Care Team Description 10/27/2018 Consent for [facility] RH INFORM ED CONSENT Procedure/Treatment RECORD Social History Tobacco Use Types Packs/Day Years [...] Description 08/13/2022 Appointment Radiology Denise Aguirre, MANAGER RESPIRATORY, SOLUTION LEAD [address] [place], [place] [address] (Wo rk) 08/13/2022 Appointment Hematology and Oncology Denise Aguirre APRN, SOLUTION LEAD [address] [place], [place] [address] (Wo rk) documented as [...] on filedocumented in this encounter Care Teams Market Investigator Relationship Specialty Start Date End Date Elyse Paredes MD PCP - General Family Practice 03/19/17 [address] [place] [address] documented as of this encounter
--- OUTSIDE RECORDS SUMMARY | 2022-07-02 13:54 | XMS_ITS | Encounter Summary ---
:1950 Author Organization [facility] Address [address] [place] [address] Care Team Providers Name Role Phone Elyse Paredes MD Primary Care Provider Encounter Details Date Type Department Care Team Description 11/18/2018 [facility] Rad[facility] Therapy [address] [place] [phone] Social History Tobacco Use Types Packs/Day Years [...] Description 08/13/2022 Appointment Radiology Denise Aguirre APRN, VICE PROVOST [address] [place], [place] [address] (Wo rk) 08/13/2022 Appointment Hematology and Oncology Denise Aguirre APRN, VICE PROVOST [address] [place], [place] [address] (Wo rk) documented as [...] on filedocumented in this encounter Care Teams Mine Safety Engineer Relationship Specialty Start Date End Date Elyse Paredes MD PCP - General Family Practice 03/19/17 [address], [place] [id number] documented as of this encounter
--- OUTSIDE RECORDS SUMMARY | 2022-07-02 13:54 | XMS_ITS | Encounter Summary ---
:1950 Author Organization [facility] Address [address] [place] [address] Care Team Providers Name Role Phone Elyse Paredes MD Primary Care Provider Encounter Details Date Type Department Care Team Description 11/23/2018 [facility] Rad[facility] Therapy [address] [place] [phone] Social History Tobacco Use Types Packs/Day Years [...] Description 08/13/2022 Appointment Radiology Denise Aguirre APRN, PROGRAM MGR [address] [place], [place] [address] (Wo rk) 08/13/2022 Appointment Hematology and Oncology Denise Aguirre APRN, PROGRAM MGR [address] [place], [place] [address] (Wo rk) documented as [...] on filedocumented in this encounter Care Teams Proposal Specialist Relationship Specialty Start Date End Date Elyse Paredes MD PCP - General Family Practice 03/19/17 [address], [place] [id number] documented as of this encounter
--- OUTSIDE RECORDS SUMMARY | 2022-07-02 13:54 | XMS_ITS | Encounter Summary ---
:1950 Author Organization [facility] Address [address] [place] [address] Care Team Providers Name Role Phone Elyse Paredes MD Primary Care Provider Encounter Details Date Type Department Care Team Description 11/22/2018 Office Visit [facility] at Jia Trujillo MD [facility] Radiation Therapy [address] [place] [address] Social History Tobacco Use Types Packs/Day Years Used Date Smoking Tobacco: Former Cigarettes Quit : 08/02/1981 Smokeless Tobacco: Never Alcohol Use Standard Drinks/Week Comments No 0 (1 standard drink = 0.6 oz pure alcoho l) Sex Assigned at Date Recorded Not on file documented as of this encounter Last Filed Vital Signs Vital Sign Reading Time Taken Comments Blood Pressure 123/63 11/22/2018 10:15 AM CDT Pulse 72 11/22/2018 10:15 AM CDT Temperature - - Respiratory Rate 16 11/22/2018 10:15 AM CDT Oxygen Saturation - - Inhaled Oxygen Concentration - - Weight 131.3 kg (289 lb 6 oz) 11/22/2018 10:15 AM CDT Height - - Body Mass Index 52.93 09/16/2018 11:15 AM UNDERCOVER AGENT documented in this encounter Progress Notes Deloris Trujillo MD - 11/22/2018 10:00 AM CDT Radiation Therapy Under Treatment Visit (UTV) Note Diagnosis: 68-year-old female with recently diagnosed pathologic stage I infiltrating ductal carcinoma of the left breast as described above. 1.2 cm. Oli grade 2. Margins negative. The closest is 7 mm. ER/OR positive, HER-2 negative. Oncotype recurrence score 10. Adjuvant hormonal therapy is planned per Dr. White Intent of therapy: Curative Medical Oncologist: JORDAN Martinez Primary Care: Elyse Paredes MD Date of encounter: 11/22/2018 Patient has completed 10 of 20 fractions Total dose to date: 2660 of planned 5256 cGy All verification films have been reviewed and approved Comments: Marci is overall doing well. She reports that the bruising and erythema that were present at the start of radiation have now improved considerably. Her primary difficulty has been controllingher diabetes. She meets with her live games dealer again later this week. The patient reports pain at a level of: Pain Score: No Pain (0) BP 123/63 Pulse 72 Resp 16 Wt 289 lb 6 oz (131.3 kg) BMI 52.93 kg/m?? Wt Readings from Last 4 Encounters: 11/22/18 289 lb 6 oz (131.3 kg) 11/15/18 289 lb 6 oz (131.3 kg) 10/27/18 288 lb (130.6 kg) 09/30/18 289 lb (131.1 kg) On exam, the central breast is very mildly erythematous. ECOG Perrformance status: 0 - Fully active; no performance restrictions Assessment: Tolerating therapy well Plan: Continue RT. She has Jergens at home that she can use to moisturize bid. Deloris Trujillo MD Radiation Oncology [phone] documented in this encounter Plan of Treatment Upcoming Encounters Date Type Specialty Care Team Description 08/13/2022 Appointment Radiology Denise Aguirre APRN, AUTOMATIC SERGING MACHINE OPERATOR [address] [place], [place] [address] (Wo rk) 08/13/2022 Appointment Hematology and Oncology Denise Aguirre APRN, AUTOMATIC SERGING MACHINE OPERATOR [address] [place], [place] [address] (Wo rk) documented as of this encounter Goals Goal Patient Goal Associated Recent Patient-Stated? Author Type Problems Progress Being active Diabetes Diabetes No [place], Education Education Tanner Ng RD, CDE Note: [...] on filedocumented in this encounter Care Teams Hotel Services Supervisor Relationship Specialty Start Date End Date Elyse Paredes MD PCP - General Family Practice 03/19/17 [address] [place] [address] documented as of this encounter
--- OUTSIDE RECORDS SUMMARY | 2022-07-02 13:54 | XMS_ITS | Encounter Summary ---
:1950 Author Organization [facility] Address [address] [place] [address] Care Team Providers Name Role Phone Elyse Paredes MD Primary Care Provider Encounter Details Date Type Department Care Team Description 10/27/2018 Consent for [facility] RH CONSEN T FOR RADIATION Procedure/Treatment THERAPY Social History Tobacco Use Types Packs/Day Years [...] Team Description 08/13/2022 Appointment Radiology Denise Aguirre, PAPER FINISHER, SENIOR ORACLE SOA DEVELOPER [address] [place], [place] [address] (Wo rk) 08/13/2022 Appointment Hematology and Oncology Denise Aguirre APRN, SENIOR ORACLE SOA DEVELOPER [address] [place], [place] [address] (Wo rk) documented as [...] Education Diabetes Education No Tanner Carranza RD, CALE Note: Formatting of this [...] on filedocumented in this encounter Care Teams Postdoctoral Scientist Relationship Specialty Start Date End Date Elyse Paredes MD PCP - General Family Practice 03/19/17 [address] [place] [address] documented as of this encounter
--- OUTSIDE RECORDS SUMMARY | 2022-07-02 13:54 | XMS_ITS | Encounter Summary ---
:1950 Author Organization [facility] Address [address] [place] [address] Care Team Providers Name Role Phone Elyse Paredes MD Primary Care Provider Encounter Details Date Type Department Care Team Description 11/15/2018 Office [facility] Rad[facility] Therapy [address] [place] [phone] Social History Tobacco Use Types Packs/Day Years [...] Description 08/13/2022 Appointment Radiology Denise Aguirre APRN, GROUTMAN [address] [place], [place] [address] (Wo rk) 08/13/2022 Appointment Hematology and Oncology Denise Aguirre APRN, GROUTMAN [address] [place], [place] [address] (Wo rk) documented as [...] on filedocumented in this encounter Care Teams Subassembly Assembler Relationship Specialty Start Date End Date Elyse Paredes MD PCP - General Family Practice 03/19/17 [address], [place] [phone] documented as of this encounter
--- OUTSIDE RECORDS SUMMARY | 2022-07-02 13:54 | XMS_ITS | Encounter Summary ---
:1950 Author Organization [facility] Address [address] [place] [address] Care Team Providers Name Role Phone Elyse Paredes MD Primary Care Provider Encounter Details Date Type Department Care Team Description 11/15/2018 Office Visit [facility] Cancer Center at Jia Trujillo MD [facility] Radiation Therapy [address] [place] [address] Social History Tobacco Use Types Packs/Day Years Used Date Smoking Tobacco: Former Cigarettes Quit : 08/02/1981 Smokeless Tobacco: Never Alcohol Use Standard Drinks/Week Comments No 0 (1 standard drink = 0.6 oz pure alcoho l) Sex Assigned at Date Recorded Not on file documented as of this encounter Last Filed Vital Signs Vital Sign Reading Time Taken Comments Blood Pressure 118/51 11/15/2018 10:23 AM CDT Pulse 72 11/15/2018 10:23 AM CDT Temperature - - Respiratory Rate 16 11/15/2018 10:23 AM CDT Oxygen Saturation - - Inhaled Oxygen Concentration - - Weight 131.3 kg (289 lb 6 oz) 11/15/2018 10:23 AM CDT Height - - Body Mass Index 52.93 09/16/2018 11:15 AM RELATIONS DIRECTOR documented in this encounter Progress Notes Deloris rTujillo MD - 11/15/2018 10:00 AM CDT Radiation Therapy Under Treatment Visit (UTV) Note Diagnosis: 68-year-old female with recently diagnosed pathologic stage I infiltrating ductal carcinoma of the left breast as described above. 1.2 cm. Oli grade 2. Margins negative. The closest is 7 mm. ER/DC positive, HER-2 negative. Oncotype recurrence score 10. Adjuvant hormonal therapy is planned per Dr. White Intent of therapy: Curative Medical Oncologist: JORDAN Martinez Primary Care: Elyse Paredes MD Date of encounter: 11/15/2018 Patient has completed 5 of 20 fractions Total dose to date: 1330 of planned 5256 cGy All verification films have been reviewed and approved Comments: Marci is overall doing well. She reports that the bruising and erythema that were present at the start of radiation have now improved considerably. The patient reports pain at a level of: Pain Score: No Pain (0) BP 118/51 Pulse 72 Resp 16 Wt 289 lb 6 oz (131.3 kg) BMI 52.93 kg/m?? Wt Readings from Last 4 Encounters: 11/15/18 289 lb 6 oz (131.3 kg) 10/27/18 288 lb (130.6 kg) 09/30/18 289 lb (131.1 kg) 09/16/18 289 lb (131.1 kg) On exam, the central breast is very mildly erythematous. ECOG Perrformance status: 0 - Fully active; no performance restrictions Assessment: Tolerating therapy well Plan: Continue RT. She has Jergens at home that she can use to moisturize bid. Deloris Trujillo MD Radiation Oncology [phone] documented in this encounter Plan of Treatment Upcoming Encounters Date Type Specialty Care Team Description 08/13/2022 Appointment Radiology Denise Aguirre APRN, MICA SPLITTER [address] [place], [place] [address] (Wo rk) 08/13/2022 Appointment Hematology and Oncology Denise Aguirre APRN, MICA SPLITTER [address] [place], [place] [address] (Wo rk) documented as [...] on filedocumented in this encounter Care Teams Huc Ob Relationship Specialty Start Date End Date Elyse Paredes MD PCP - General Family Practice 03/19/17 [address] [place] [address] documented as of this encounter
--- OUTSIDE RECORDS SUMMARY | 2022-07-02 13:54 | XMS_ITS | Encounter Summary ---
:1950 Author Organization [facility] Address [address] [place] [address] Care Team Providers Name Role Phone Elyse Paredes MD Primary Care Provider Encounter Details Date Type Department Care Team Description 11/14/2018 Office Visit [facility] Cancer Center Suzie Gerardo at [facility] MD [facility] Radiation Therapy [address] [address] [place] [address] [phone] Social History Tobacco Use Types Packs/Day Years [...] Team Description 08/13/2022 Appointment Radiology Denise Aguirre, HEMMING AND TACKING MACHINE OPERATOR, PULLER MACHINE [address] [place], [place] [address] (Wo rk) 08/13/2022 Appointment Hematology and Oncology Denise Aguirre APRN, PULLER MACHINE [address] [place], [place] [address] (Wo rk) documented as [...] on filedocumented in this encounter Care Teams Roll Capper Relationship Specialty Start Date End Date Elyse Paredes MD PCP - General Family Practice 03/19/17 [address] [place] [address] documented as of this encounter
--- OUTSIDE RECORDS SUMMARY | 2022-07-02 13:54 | XMS_ITS | Encounter Summary ---
:1950 Author Organization [facility] Address [address] [place] [address] Care Team Providers Name Role Phone Elyse Paredes MD Primary Care Provider Encounter Details Date Type Department Care Team Description 11/22/2018 Office Visit [facility] Rad[facility] Therapy [address] [place] [phone] Social History Tobacco Use Types Packs/Day Years [...] Description 08/13/2022 Appointment Radiology Denise Aguirre APRN, OPERATIONAL INTELLIGENCE OFFICER [address] [place], [place] [address] (Wo rk) 08/13/2022 Appointment Hematology and Oncology Denise Aguirre APRN, OPERATIONAL INTELLIGENCE OFFICER [address] [place], [place] [address] (Wo rk) documented as [...] on filedocumented in this encounter Care Teams Bus And Trolley Dispatcher Relationship Specialty Start Date End Date Elsye Paredes MD PCP - General Family Practice 03/19/17 [address] [place], [place] [id number] documented as of this encounter
--- OUTSIDE RECORDS SUMMARY | 2022-07-02 13:54 | XMS_ITS | Encounter Summary ---
:1950 Author Organization [facility] Address [address] [place] [address] Care Team Providers Name Role Phone Elyse Paredes MD Primary Care Provider Encounter Details Date Type Department Care Team Description 11/09/2018 Office [facility] Rad[facility] Therapy [address] [place] [phone] Social History Tobacco Use Types Packs/Day Years [...] 08/13/2022 Appointment Radiology Denise Aguirre APRN, DOCUMENTATION SPECIALIST [address] [place], [place] [address] (Wo rk) 08/13/2022 Appointment Hematology and Oncology Denise Aguirre APRN, DOCUMENTATION SPECIALIST [address] [place], [place] [address] (Wo rk) documented as [...] filedocumented in this encounter Care Teams Custom Dressmaker Relationship Specialty Start Date End Date Elyse Paredes MD PCP - General Family Practice 03/19/17 [address] [place], [place] [id number] documented as of this encounter
--- OUTSIDE RECORDS SUMMARY | 2022-07-02 13:54 | XMS_ITS | Encounter Summary ---
:1950 Author Organization [facility] Address [address] [place] [address] Care Team Providers Name Role Phone Elyse Paredes MD Primary Care Provider Encounter Details Date Type Department Care Team Description 11/21/2018 Office Visit [facility] Cancer Center Suzie Gerardo at [facility] MD James Radiation Therapy [address] [address] [place] [address] [phone] Social History Tobacco Use Types Packs/Day Years [...] Team Description 08/13/2022 Appointment Radiology Denise Aguirre, PUBLISHING AGENT, CHEMIST INORGANIC [address] [place], [place] [address] (Wo rk) 08/13/2022 Appointment Hematology and Oncology Denise Aguirre APRN, CHEMIST INORGANIC [address] [place], [place] [address] (Wo rk) documented as [...] on filedocumented in this encounter Care Teams Globe Mounter Relationship Specialty Start Date End Date Elyse Paredes MD PCP - General Family Practice 03/19/17 [address] [place] [address] documented as of this encounter
--- OUTSIDE RECORDS SUMMARY | 2022-07-02 13:54 | XMS_ITS | Encounter Summary ---
:1950 Author Organization [facility] Address [address] [place] [address] Care Team Providers Name Role Phone Elyse Paredes MD Primary Care Provider Encounter Details Date Type Department Care Team Description 11/08/2018 Office Visit [facility] Cancer Center Suzie Gerardo at [facility] MD [facility] Radiation Therapy [address] [address] [place] [address] [phone] Social History Tobacco Use Types Packs/Day Years [...] Team Description 08/13/2022 Appointment Radiology Denise Aguirre, LATEX FOAM WORKER, BASEBALL INSPECTOR AND REPAIRER [address] [place], [place] [address] (Wo rk) 08/13/2022 Appointment Hematology and Oncology Denise Aguirre APRN, BASEBALL INSPECTOR AND REPAIRER [address] [place], [place] [address] (Wo rk) documented as [...] on filedocumented in this encounter Care Teams Telephone Order Clerk Relationship Specialty Start Date End Date Elyse Paredes MD PCP - General Family Practice 03/19/17 [address] [place] [address] documented as of this encounter
--- OUTSIDE RECORDS SUMMARY | 2022-07-02 13:54 | XMS_ITS | Encounter Summary ---
:1950 Author Organization [facility] Address [address] [place] [address] Care Team Providers Name Role Phone Elyse Paredes MD Primary Care Provider Encounter Details Date Type Department Care Team Description 11/17/2018 Office Visit [facility] Rad[facility] Therapy [address] [place] [phone] Social History Tobacco Use Types Packs/Day Years [...] Description 08/13/2022 Appointment Radiology Denise Aguirre APRN, GERIATRIC SOCIAL WORK PROFESSOR [address] [place], [place] [address] (Wo rk) 08/13/2022 Appointment Hematology and Oncology Denise Aguirre APRN, GERIATRIC SOCIAL WORK PROFESSOR [address] [place], [place] [address] (Wo rk) documented as [...] on filedocumented in this encounter Care Teams Radiologic Technologist Relationship Specialty Start Date End Date Elyse Paredes MD PCP - General Family Practice 03/19/17 [address] [place] [place], [place] [phone] documented as of this encounter
--- OUTSIDE RECORDS SUMMARY | 2022-07-02 13:54 | XMS_ITS | Encounter Summary ---
:1950 Author Organization [facility] Address [address], [place] [address] Care Team Providers Name Role Phone Elyse Paredes MD Primary Care Provider Encounter Details Date Type Department Care Team Description 11/08/2018 Office Visit [facility] Cancer Ilya Gerardo (Clinic Center at Yuki Ramirez MD Request) Hospital Radiation [address] [facility] [place], [place] 640 [facility] [address] [place] [address] [phone] Social History Tobacco Use Types Packs/Day Years [...] Team Description 08/13/2022 Appointment Radiology Denise Aguirre, MARKETING PROGRAMS MANAGER, GEAR INSPECTOR [address] [place], [place] [address] (Wo rk) 08/13/2022 Appointment Hematology and Oncology Denise Aguirre APRN, GEAR INSPECTOR [address] [place], [place] [address] (Wo rk) documented as [...] on filedocumented in this encounter Care Teams Net Wpf Developer Relationship Specialty Start Date End Date Elyse Paredes MD PCP - General Family Practice 03/19/17 [address] [place] [address] documented as of this encounter
--- OUTSIDE RECORDS SUMMARY | 2022-07-02 13:54 | XMS_ITS | Encounter Summary ---
:1950 Author Organization [facility] Address [address] [place] [address] Care Team Providers Name Role Phone Elyse Paredes MD Primary Care Provider Reason for Visit Therapies (Routine) - Closed Specialty Diagnoses / Procedures Referred By Contact Refer red To Contact Diagnoses Malignant neoplasm of overlapping sites of left breast in female, estrogen receptor positive (HRC) Elisa Madrid MBBS [address] [place] [address] Referral ID Status Reason Start Date Expiration Date Visits Requ ested Visits Authorized [id number] Closed 10/21/2018 12/20/2018 1 1 Encounter Details Date Type Department Care Team Description 10/27/2018 Office Visit [facility] at Jia Trujillo MD [facility] Radiation Therapy [address] [place] [address] [id number] Social History Tobacco Use Types Packs/Day Years Used Date Smoking Tobacco: Former Cigarettes Quit : 08/02/1981 Smokeless Tobacco: Never Alcohol Use Standard Drinks/Week Comments No 0 (1 standard drink = 0.6 oz pure alcoho l) Sex Assigned at Date Recorded Not on file documented as of this encounter Last Filed Vital Signs Vital Sign Reading Time Taken Comments Blood Pressure 151/74 10/27/2018 1:41 PM CDT Pulse 89 10/27/2018 1:41 PM CDT Temperature - - Respiratory Rate - - Oxygen Saturation - - Inhaled Oxygen Concentration - - Weight 130.6 kg (288 lb) 10/27/2018 1:41 PM CDT Height - - Body Mass Index 52.68 09/16/2018 11:15 AM ARCHITECTURE DEPARTMENT CHAIR documented in this encounter Patient Instructions Patient InstructionsFleming, Saskia R, RN - 10/27/2018 1:30 PM CDT Radiation Therapy for Breast Cancer: Patient Instructions You will have radiation therapy treatments to your breast. Some possible side effects may include skin irritation and fatigue. Here???s what you can do to minimize these side effects. Skin Irritation Redness, dryness or itching may begin as early as nursing home through your therapy. Please ask your nurse or doctor to suggest skin care products to relieve any discomfort. Skin Care ?? It is okay to bathe or shower daily with a mild soap or non-soap cleanser. Avoid perfumed or deodorant soap. Wash the treatment area gently with your hands. Do not scrub the skin. If you have ink irizarry on your skin, do not wash them off. These irizarry will gradually fade away. Gently pat the skin dry. ?? During the course of your radiation therapy treatments, do not put anything on the skin in the treatment area (except for the products recommended by your doctor or nurse). Recommended products you can use include: ??? Unscented mild moisturizers such as Aloe Vera gel, Aquaphor, Vanicream, Eucerin, Lubriderm, CeraVe, Cetaphil and Goldbond ??? Huxo-yjx-ciffovz hydrocortisone cream for itching Apply products 2 times daily (or as needed). Do not apply products within 2 hours before treatment (to prevent greasy skin when you come in for treatment). You may use regular deodorant. ?? Avoid the use of hot or cold in the treatment area. Do not use heating pads, hot packs, hot waterbottles, ice packs or ice bags. It is okay to use an electric blanket. Sun Exposure During the treatments, avoid exposing the skin in the treatment area to direct sunlight or tanning beds. If you plan to be in the sun for an extended period of time, cover the skin with clothing and use sun protection with a SPF of 30 or higher. Radiated skin will always be more sensitive to the sun. Once you complete treatments, always wear a sunscreen with a SPF of 30 or higher. Avoid tanning beds. Appearance Toward the end of therapy, the skin may appear to be somewhat red. As the redness fades, the skin may become darker. This slight darkening should fade over the next several months. Some women notice that the breast is firmer and hangs less loosely. This is due to fibrosis (scar tissue). Other women notice a slight increase in the size of the breast due to edema (fluid build-up). Fatigue Many women may feel somewhat tired during radiation therapy. Most women continue to work and participate in their normal activities. Regular rest periods may help reduce some of the fatigue. Nutrition It is important to eat properly while you are having radiation therapy. Your body needs good nutrition to restore strength, repair injured cells and for the healing process. Most of these side effects will end 4 to 6 weeks after the treatments have been completed. Please do not hesitate to call us after you have completed treatment if you have any questions. documented in this encounter Progress Notes Deloris Trujillo MD - 10/27/2018 1:30 PM CDT Radiation Oncology Consultation Date of Consultation: 10/27/2018 Referring Physician: Elisa Madrid MD Surgeon: Maryellen Beaulieu MD Primary Care Physician: Elyse Paredes MD Cancer Staging Malignant neoplasm of left breast in female, estrogen receptor positive (HRC) Staging form: Breast, AJCC 8th Edition - Clinical: Stage IA (cT1b, cN0, cM0, G2, ER+, NJ+, HER2-, Oncotype DX score: 10) - Unsigned - Pathologic: Stage IA (pT1c, pN0(sn), cM0, G2, ER+, NJ+, HER2-, Oncotype DX score: 10) - Unsigned Identifying Data: 68 year old female with stage IA left sided breast cancer referred for discussion of adjuvant radiation History of Present Illness: The patient is a 68-year-old female who presented on 07/19/2018 for screening mammography. This identified a mass in the left breast at the 12 o'clock position middle depth.On follow up ultrasound it measured 6 mm. She was seen by Dr. Maryellen Beaulieu who on 09/16/2018 performed radioactive seed localization partial mastectomy and sentinel lymph node biopsy. BREAST CANCER STAGING PARAMETERS ?? Tumor location: Left breast, 12 o'clock, zone 2?? Primary Tumor: ? Histologic type: Invasive ductal carcinoma ? Histologic Grade ([place]): ??II of III, [place] score 6 of 9 (nuclear grade 2, tubules 3, mitosis 1) ? Invasive Tumor size (pT): 1.2 cm in largest dimension ? Multifocal: ??Single focus ? Associated DCIS: ??Focally present in association with invasive tumor ? Extensive intraductal component: Not present ? DCIS Type and grade: Solid type, nuclear grade 2 ? Associated microcalcifications: Not identified ? Angiolymphatic Invasion: Not identified ? Margin Status: ??Margins are not involved by DCIS or invasive carcinoma ? Distance to nearest margin: DCIS and invasive carcinoma are greater than 0.5 cm from margins Additional Findings: Atypical lobular hyperplasia Biopsy cavity: Present Regional lymph nodes (pN): ? Total number of nodes: ??4 lymph nodes including [address] Number of positive nodes: ??Zero ER: High positive NJ: Positive HER-2/sally: Negative (score 0-1+) Pathologic stage (pTN) (AJCC/UICC Volume 8): ??pT1c N0(sn) She was subsequently seen by Dr. Elisa Madrid on 09/30/2018. Oncotype recurrent score is 10 and he is recommending adjuvant hormonal therapy. Patient Active Problem List Diagnosis ??? Uncontrolled type 2 diabetes mellitus, with long-term current use of insulin (HRC) ??? DEDE (obstructive sleep apnea) ??? Uncontrolled type 2 diabetes mellitus with hyperosmolarity without coma, with long-term current use of insulin (HRC) ??? Essential hypertension (HRC) ??? Dyslipidemia, goal LDL below 100 (HRC) ??? Uncontrolled type 2 diabetes mellitus without complication, with long-term current use of insulin (HRC) ??? Diabetes Education ??? Coronary artery disease involving [place] coronary artery of [place] heart without angina pectoris(HRC) ??? Malignant neoplasm of left breast in female, estrogen receptor positive (HRC) Past medical history: Type 2 diabetes Past surgical history: Aortic valve replacement 2017. Bilateral knee replacements 10 or 11 years ago. Medications: Aspirin daily Celebrex 20 mg daily, [place] 25 mg daily, Trulicity injections every week, Pepcid 10 mg daily, losartan, insulin, Crestor 10 mg daily, metoprolol daily, Zoloft 50 mg daily Allergies: Erythromycin, lisinopril and metformin Family history: Negative for cancer Social history: . Former smoker who quit in 1981. Review of Systems: Complete 10 system ROS is negative except as noted in HPI. She [facility] to cardiac re[facility] at [facility] at 10am. Physical Examination: General: Well developed, heavy adult in no apparent distress. Vital Signs: BP (!) 151/74 Pulse 89 Wt 288 lb (130.6 kg) BMI 52.68 kg/m?? Estimated body mass index is 52.86 kg/m?? as calculated from the following: Height as of 09/16/18: 5' 2 (1.575 m). Weight as of 09/30/18: 289 lb (131.1 kg). HEENT: Normocephalic, atraumatic. Eyes, ears, nose and throat within normal limits. . Conjunctiva clear. No mucosal lesions seen in the oral cavity or orophagynx. Dentition in good repair. Neck: No masses, thyromegaly; Chest/Lungs: Clear to auscultation without wheezing.. Heart: Regular rate and rhythm. S1 and S2 normal, no murmurs Abdomen: Soft, without tenderness, guarding, mass, rebound or hepatosplenomegaly. Breasts are examined in the sitting and lying position. She has an excellent cosmetic result with well-healed surgical scars in the left breast and axilla. There is still some resolving bruising and edema. Not warm. Extremities: No cyanosis, clubbing or edema. . Neurological: Alert and oriented to person, place and time. Cranial nerves II- XII intact. Sensory and motor exams are intact. Normal gait. Skin: Normal turgor, no rashes, discoloration or ulcerations. Lymphatic: No cervical, supraclavicular, infraclavicular, axillary adenopathy. Ref Guidelines: NCCN Data summary: I personally reviewed pathology and recent radiographic studies as described above. Performance status: 0 - Fully active; no performance restrictions Assessment/Recommendations: 68-year-old female with recently diagnosed pathologic stage I infiltrating ductal carcinoma of the left breast as described above. 1.2 cm. Oli grade 2. Margins negative. The closest is 7 mm. ER/NJ positive, HER-2 negative. Oncotype recurrence score 10. Adjuvant hormonal therapy is planned per Dr. Madrid Thank you for the opportunity to meet with this patient today. Please feel free to contact me if you have any questions about our discussion or my recommendations. Date of surgery 09/16/2018 Consistent with NCCN guidelines, I have recommended adjuvant breast irradiation consisting of 4256 cGy in 16 fractions to the entire breast followed by 1000 cGy in 4 fractions to the tumor bed. The primary goal of radiation is to decrease the local recurrence rate to less than 5%. I have reviewed the logistics of planning CT and treatment with her. Side effects would include fatigue, skin erythema with possible hyperpigmentation, late telangiectasias, induration and contraction of the entire breast.A small percentage of the left lung subjacent to the breast will receive enough dose that she could develop a cough or rarely chronic shortness of breath. Care will be taken to minimize the volume of heart within the treatment portals, and cardiac toxicity would be unusual. There would be a slight increase in the possibility of rib fracture under the breast and a rare possibility of a secondary radiation induced cancer. She expresses good understanding and wishes to proceed. She has healed sufficiently to proceed. She will return in the next couple days for simulation with treatment to start no later than 11/07/2018. Informed consent has been signed today. Deloris Trujilol MD Radiation Oncology [phone] Of note is that portions of this note were generated in part using the [employer] voice recognition system. I have attempted to proof-read it but apologize for any unrecognized rental representative errors. documented in this encounter Nursing Notes Saskia Ghotra, RN - 10/27/2018 1:[address] [facility] Radiation Therapy Initial Assessment Nursing Note General Information Patient Name: Marci Diaz Date of : 1950 General Information: Patient is here today to meet with Dr. Trujillo to discuss radiation treatment to her left breast. Lump was found on routine mammogram. She had a left breast lumpectomy on September 16, 2018 with a sentinel lymph node biopsy. She is ER/NJ+ HER2- 0/4 lymph nodes positive. She has healed nicely and has full range of motion in her shoulders. Oncology History Does she have history of prior chemotherapy? No Does she have a history of prior radiation therapy? No Does she have history of prior cancer? No Does she have family history of cancer? Yes her brother from advanced esophageal cancer. Does she have a PACEMAKER/ICD? No Gynecological History LMP post menopausal in her mid 50's Menarche at age 15 Hormones BCP for approximately 10 years Pregnancies non Age of first n/a Breast Feeding n/a Neurological Assessment: No apparent abnormalities Head/Neck Assessment: No apparent abnormalities. Eye Assessment: No apparent abnormalities. Ear Assessment: No apparent abnormalities. Nose Assessment: No apparent abnormalities. Throat Assessment: No apparent abnormalities. Respiratory Assessment: Obstructive sleep apnea uses c-pap Cardiovascular Assessment: Has had TAVR, A-Fib CAD Gastrointestinal Assessment: No apparent abnormalities Genitourinary Assessment: No apparent abnormalities Integumentary Assessment: Skin temperature: warm Skin color: normal No apparent abnormalities Musculoskeletal Assessment: No Apparent Abnormalities Mental Health/Psychological Assessment: Patient Behavior: calm. Mental health findings: No apparent abnormalities. 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 Saskia Ghotra RN Oncology/Radiation Therapy Nurse --- End of Report --- documented in this encounter Plan of Treatment Upcoming Encounters Date Type Specialty Care Team Description 08/13/2022 Appointment Radiology Denise Aguirre APRN, LEARNING ADMINISTRATOR [address] [place], [place] [address] (Tonio sorenson) 08/13/2022 Appointment Hematology and Oncology Denise Aguirre APRN, LEARNING ADMINISTRATOR [address] [place], [place] [address] (Wo delta) Scheduled Referrals Name Type Priority Associated Diagnoses Order S chedule Radiation Therapy Referral Routine Malignant neoplasm of O rdered: 10/21/2018 overlapping sites of left breast in female, estrogen receptor positive (HRC) documented as of this encounter Goals Goal Patient Goal Associated Recent Patient-Stated? Author Type Problems Progress Being active Diabetes Diabetes No Tree Education Education Tanner Ng, RD, CDE Note: [...] on filedocumented in this encounter Care Teams Head Cd Reactor Operator Relationship Specialty Start Date End Date Elyse Paredes MD PCP - General Family Practice 03/19/17 [address] [place] [address] documented as of this encounter
--- OUTSIDE RECORDS SUMMARY | 2022-07-02 13:54 | XMS_ITS | Encounter Summary ---
:1950 Author Organization [facility] Address [address] [place] [address] Care Team Providers Name Role Phone Elyse Paredes MD Primary Care Provider Encounter Details Date Type Department Care Team Description 11/16/2018 Office Visit [facility] Rad[facility] Therapy [address] [place] [address] [phone] Social History Tobacco Use Types Packs/Day Years [...] Description 08/13/2022 Appointment Radiology Denise Aguirre APRN, SAP SOLUTION MANAGER CONSULTANT [address] [place], [place] [address] (Wo rk) 08/13/2022 Appointment Hematology and Oncology Denise Aguirre APRN, SAP SOLUTION MANAGER CONSULTANT [address] [place], [place] [address] (Wo rk) documented as [...] on filedocumented in this encounter Care Teams Optical Laboratory Mechanic Relationship Specialty Start Date End Date Elyse Paredes MD PCP - General Family Practice 03/19/17 [address], [place] [phone] documented as of this encounter
--- OUTSIDE RECORDS SUMMARY | 2022-07-02 13:54 | XMS_ITS | Encounter Summary ---
:1950 Author Organization [facility] Address [address] [place] [address] Care Team Providers Name Role Phone Elyse Paredes MD Primary Care Provider Encounter Details Date Type Department Care Team Description 11/11/2018 [facility] Rad[facility] Therapy [address] [place] [address] [phone] Social History Tobacco Use Types Packs/Day Years [...] Description 08/13/2022 Appointment Radiology Denise Aguirre APRN, SIZE CHANGER [address] [place], [place] [address] (Wo rk) 08/13/2022 Appointment Hematology and Oncology Denise Aguirre APRN, SIZE CHANGER [address] [place], [place] [address] (Wo rk) documented as [...] on filedocumented in this encounter Care Teams Product Safety Consultant Relationship Specialty Start Date End Date Elyse Paredes MD PCP - General Family Practice 03/19/17 [address] [place], [place] [phone] documented as of this encounter
--- OUTSIDE RECORDS SUMMARY | 2022-07-02 13:54 | XMS_ITS | Encounter Summary ---
:1950 Author Organization [facility] Address [address] [place] [address] Care Team Providers Name Role Phone Elyse Paredes MD Primary Care Provider Encounter Details Date Type Department Care Team Description 11/24/2018 Office Visit [facility] Radiation Therapy [address] [place] [address] [phone] Social History Tobacco Use Types Packs/Day Years [...] Description 08/13/2022 Appointment Radiology Denise Aguirre APRN, GOLD BLOWER [address] [place], [place] [phone] (Wo rk) 08/13/2022 Appointment Hematology and Oncology Denise Aguirre APRN, GOLD BLOWER [address] [place], [place] [phone] (Wo rk) documented as [...] in this encounter Care Teams Director Of Orthopedics Relationship Specialty Start Date End Date Elyse Paredes MD PCP - General Family Practice 03/19/17 [address], [place] [phone] documented as of this encounter
--- OUTSIDE RECORDS SUMMARY | 2022-07-02 13:54 | XMS_ITS | Encounter Summary ---
:1950 Author Organization [facility] Address [address] [place] [address] Care Team Providers Name Role Phone Elyse Paredes MD Primary Care Provider Encounter Details Date Type Department Care Team Description 11/10/2018 Office Visit [facility] Radiation Therapy [address] [place] [address] [phone] Social History Tobacco Use Types Packs/Day Years [...] Description 08/13/2022 Appointment Radiology Denise Aguirre APRN, PATROL MOTHER [address] [place], [place] [phone] (Wo rk) 08/13/2022 Appointment Hematology and Oncology Denise Aguirre APRN, PATROL MOTHER [address] [place], [place] [address] (Wo rk) documented as [...] on filedocumented in this encounter Care Teams Offshore Wind Operations Manager Relationship Specialty Start Date End Date Elyse Paredes MD PCP - General Family Practice 03/19/17 [address], [place] [phone] documented as of this encounter
--- OUTSIDE RECORDS SUMMARY | 2022-07-02 13:55 | XMS_ITS | Encounter Summary ---
:1950 Author Organization [facility] Address [address] [address] Care Team Providers Name Role Phone Elyse Paredes MD Primary Care Provider Encounter Details Date Type Department Care Team Description 09/16/2018 Orders Only External to External, [place] [address] Social History Tobacco Use Types Packs/Day Years [...] Description 08/13/2022 Appointment Radiology Denise Aguirre APRN, CASING MIXER [address] [place], [place] [address] (Wo rk) 08/13/2022 Appointment Hematology and Oncology Denise Aguirre APRN, CASING MIXER [address] [place], [place] [address] (Wo rk) documented as [...] Priority Date/Time Associated Diagnosis Comme nts LAB OP 09/16/2018 12:00 AM Results for this TEACHER RESOURCE procedure are i n the results section . documented in this encounter Results LAB OP (09/16/2018 12:00 AM TEACHER RESOURCE) Specimen (Source) Anatomical Location Collection Method / Collectio n Time Received Time / Laterality Volume 09/16/2018 Narrative This result has an attachment that is no t available. Provider External DUMMY/OTHER/AR documented in this encounter Visit Diagnoses Not on filedocumented in this encounter Care Teams Manager Budget Relationship Specialty Start Date End Date Elyse Paredes MD PCP - General Family Practice 03/19/17 [address] [place] [address] documented as of this encounter
--- OUTSIDE RECORDS SUMMARY | 2022-07-02 13:55 | XMS_ITS | Encounter Summary ---
:1950 Author Organization [facility] Address [address] [place] [address] Care Team Providers Name Role Phone Elyse Paredes MD Primary Care Provider Reason for Visit Reason Comments AFTERCARE, SURGICAL Encounter Details Date Type Department Care Team Description 09/19/2018 Telephone Operating Room Maryellen Beaulieu MD AFTERC[facility], SURGICAL [address] [place] [address] [facility] [phone] [place], [place] [phone] (Wo rk) Social History Tobacco Use Types [...] Team Description 08/13/2022 Appointment Radiology Denise Aguirre, TAPE MAKING MACHINE OPERATOR, LINOTYPER [address] [place], [place] [address] (Wo rk) 08/13/2022 Appointment Hematology and Oncology Denise Aguirre APRN, LINOTYPER [address] [place], [place] [address] (Wo rk) documented as [...] on filedocumented in this encounter Care Teams Oil Gauger Relationship Specialty Start Date End Date Elyse Paredes MD PCP - General Family Practice 03/19/17 [address] [place] [address] documented as of this encounter
--- OUTSIDE RECORDS SUMMARY | 2022-07-02 13:55 | XMS_ITS | Encounter Summary ---
:1950 Author Organization [facility] Address [address] [place] [address] Care Team Providers Name Role Phone Elyse Paredes MD Primary Care Provider Encounter Details Date Type Department Care Team Description 09/30/2018 Notes/Orders [facility] Shaye Madrid hna Center at [facility], [facility] [phone] [place] [address] [phone] (Wo rk) Social History Tobacco Use Types [...] Team Description 08/13/2022 Appointment Radiology Denise Aguirre, INDUSTRIAL GAS PRODUCTION OPERATOR, THEATER TECHNICIAN [address] [place], [place] [address] (Wo rk) 08/13/2022 Appointment Hematology and Oncology Denise Aguirre APRN, THEATER TECHNICIAN [address] [place], [place] [address] (Wo rk) documented as [...] on filedocumented in this encounter Care Teams Animal Rehabilitator Relationship Specialty Start Date End Date Elyse Paredes MD PCP - General Family Practice 03/19/17 [address] [place] [address] documented as of this encounter
--- OUTSIDE RECORDS SUMMARY | 2022-07-02 13:55 | XMS_ITS | Encounter Summary ---
:1950 Author Organization [facility] Address [address] [place] [address] Care Team Providers Name Role Phone Elyse Paredes MD Primary Care Provider Encounter Details Date Type Department Care Team Description 09/16/2018 Consent for [facility] Department RH INFORM ED [...] Team Description 08/13/2022 Appointment Radiology Denise Aguirre, KINDERGARTEN TEACHER, SOLDER DEPOSIT OPERATOR [address] [place], [place] [address] (Wo rk) 08/13/2022 Appointment Hematology and Oncology Denise Aguirre APRN, SOLDER DEPOSIT OPERATOR [address] [place], [place] [address] (Wo rk) documented as [...] on filedocumented in this encounter Care Teams Bead Filler Relationship Specialty Start Date End Date Elyse Paredes MD PCP - General Family Practice 03/19/17 [address] [place] [address] documented as of this encounter
--- OUTSIDE RECORDS SUMMARY | 2022-07-02 13:55 | XMS_ITS | Encounter Summary ---
:1950 Author Organization [facility] Address [address] [place] [id number] Care Team Providers Name Role Phone Elyse Paredes MD Primary Care Provider Reason for Visit Reason Onset Date Comments Refill 09/29/2018 90 day supply/ insul in lispro, human, (HUMALOG, ADMELOG) 100 UNIT/ML injection pe n Encounter Details Date Type Department Care Team Description 09/29/2018 Refill [facility] Tawanda Salas MD Refill (90 day supply/ [facility] [address] insulin lispro, human, [address] [place], [place] (HUMALOG, ADMELOG) [address] [place] [address] UNIT/ML injection pen) [phone] Social History Tobacco Use Types Packs/Day Years Used Date Smoking Tobacco: Former Cigarettes Quit : 08/02/1981 Smokeless Tobacco: Never Alcohol Use Standard Drinks/Week Comments No 0 (1 standard drink = 0.6 oz pure alcoho l) Sex Assigned at Date Recorded Not on file documented as of this encounter Nursing Notes Yosi Greco RN - 09/29/2018 3:06 PM CST Completed per Physician Order. Yosi Greco RN EXAMINER Interface, Out Surescripts Prov Query - 09/29/2018 12:17 PM CST insulin lispro, human, (HUMALOG, ADMELOG) 100 UNIT/ML injection pen Diabetes - Insulin -> The request contains a note from the pharmacy. -> HBA1C is abnormal (8.2 % is greater than 7.9 %) -> Refill x 3 months (until due for a(n) HBA1C check) -> Calculate quantity and refills manually. They could not be estimated due to missing or unreadable information. Last qualifying visit: 08/09/2018 (in Endocrinology with TAWANDA SALAS) Next scheduled visit: 11/29/2018 (in Endocrinology with TAWANDA SALAS) Last ordered by TAWANDA SALAS: 09/26/2018 (3 days ago) QTY: 15, Refills: 11, Sig: inject 6 units subcutaneously three times daily before meals. if hs bg > 200 may take 4 units of humalog to bring it down (unchanged) HBA1C: 8.2 % on 08/09/2018 Powered by [employer], Reference: [id number], 09/29/2018 12:17:01 PM Carlos ARRIAZA: [facility] C[facility] TEAM ([id number]) Elda Spicer - 09/29/2018 12:16 PM CST Requesting a 90 day supply Rx for insulin lispro, human, (HUMALOG, ADMELOG) 100 UNIT/ML injection pen. Elda Espinal EXAMINER documented in this encounter Plan of Treatment Upcoming Encounters Date Type Specialty Care Team Description 08/13/2022 Appointment Radiology Denise Aguirre, PHOTOCOMPOSITION KEYBOARD OPERATOR, UNHAIRING INSPECTOR [address] [place], [place] [address] (Wo rk) 08/13/2022 Appointment Hematology and Oncology Denise Aguirre, GRIFFIN, UNHAIRING INSPECTOR [address] [place], [place] [address] (Wo rk) documented as [...] insulin documented in this encounter Care Teams Waxing Machine Operator Helper Relationship Specialty Start Date End Date Elyse Paredes MD PCP - General Family Practice 03/19/17 [address] [place] [address] documented as of this encounter
--- OUTSIDE RECORDS SUMMARY | 2022-07-02 13:55 | XMS_ITS | Encounter Summary ---
:1950 Author Organization [facility] Address [address] [place] [id number] Care Team Providers Name Role Phone Elyse Paredes MD Primary Care Provider Reason for Visit Auth/Cert Specialty Diagnoses / Procedures Referred By Contact Refer red To Contact Diagnoses Malignant neoplasm of left breast in female, estrogen receptor positive, unspecified site of breast ([facility]) . Procedures LEFT PARTIAL MASTECTOMY WITH RADIOACTIVE SEED LOCALIZATION & LEFT SENTINEL LYMPH NODE BIOPSY Referral ID Status Reason Start Date Expiration Date Visits Requ ested Visits Authorized [id number] 1 Encounter Details Date Type Department Care Team Description 09/16/2018 Ancillary Procedure [facility] Maryellen Beaulieu MD Mal[facility] neoplasm [facility] [address] of left breast in [address] [facility] female, [place] [address] [place], [place] receptor positive, [id number] unspecified site of [phone] breast ([facility]) (Work) Social History Tobacco Use [...] Description 08/13/2022 Appointment Radiology Denise Aguirre APRN, EMBEDDED SYSTEMS SOFTWARE DEVELOPER [address] [place], [place] [address] (Wo rk) 08/13/2022 Appointment Hematology and Oncology Denise Aguirre APRN, EMBEDDED SYSTEMS SOFTWARE DEVELOPER [address] [place], [place] [address] (Wo rk) documented as [...] Priority Date/Time Associated Diagnosis Comme nts MM SEED SPECIMEN Routine 09/16/2018 9:32 AM Malignant neoplasm of Results for this LOG SORTING SUPERVISOR left breast in procedure are in female, estrogen the results receptor positive, section. unspecified site of breast ([facility]) documented in this encounter Results MM Seed Specimen (09/16/2018 9:32 AM LOG SORTING SUPERVISOR) Anatomical Region Laterality Modality Breast Mammography Specimen (Source) Anatomical Location Collection Method / Collectio n Time Received Time / Laterality Volume Narrative 09/16/2018 1:34 PM LOG SORTING SUPERVISOR Indication: Breast carcinoma Specimen mammogram demonstrates the area of abnormality (mass and biopsy clip) to be included in the the specimen . The radioactive seed is included in the specimen mammogram. Maryellen Beaulieu MD RAD [facility] documented in this encounter Visit Diagnoses Diagnosis Malignant neoplasm of left breast in fem grey, estrogen receptor positive, unspecified site of breast ([facility]) documented in this encounter Care Teams Boarding House Cook Relationship Specialty Start Date End Date Elyse Paredes MD PCP - General Family Practice 03/19/17 [address] [place] [address] documented as of this encounter
--- OUTSIDE RECORDS SUMMARY | 2022-07-02 13:55 | XMS_ITS | Encounter Summary ---
:1950 Author Organization [id number] Address [address] [place] [address] Care Team Providers Name Role Phone Elyse Paredse MD Primary Care Provider Reason for Visit Auth/Cert Specialty Diagnoses / Procedures Referred By Contact Refer red To Contact Diagnoses Malignant neoplasm of left breast in female, estrogen receptor positive, unspecified site of breast ([facility]) . Procedures LEFT PARTIAL MASTECTOMY WITH RADIOACTIVE SEED LOCALIZATION & LEFT SENTINEL LYMPH NODE BIOPSY Referral ID Status Reason Start Date Expiration Date Visits Requ ested Visits Authorized [id number] 1 1 Encounter Details Date Type Department Care Team Description 09/16/2018 Hospital Encounter [facility] Operating Room Maryellen Montes MD Malignant neoplasm [address] [place] [address] female, estrogen [phone] [place], [place] receptor posi tive, [id number] unspecified site of [phone] breast ([facility]) (Work) (Primary Dx) Social History Tobacco Use Types Packs/Day Years Used Date Smoking Tobacco: Former Cigarettes Quit : 08/02/1981 Smokeless Tobacco: Never Alcohol Use Standard Drinks/Week Comments No 0 (1 standard drink = 0.6 oz pure alcoho l) Sex Assigned at Date Recorded Not on file documented as of this encounter Last Filed Vital Signs Vital Sign Reading Time Taken Comments Blood Pressure 134/53 09/16/2018 2:50 PM [employer] Pulse 58 09/16/2018 2:50 PM [employer] Temperature 36.3 ??C (97.3 ??F) 09/16/2018 2:50 PM [employer] Respiratory Rate 18 09/16/2018 2:50 PM [employer] Oxygen Saturation 97% 09/16/2018 2:50 PM [employer] Inhaled Oxygen Concentration - - Weight 131.1 kg (289 lb) 09/16/2018 11:15 AM [employer] PER PT Height 157.5 cm (5' 2) 09/16/2018 11:15 AM [employer] Body Mass Index 52.86 09/16/2018 11:15 AM [employer] documented in this encounter Discharge Instructions Discharge InstructionsKeaton Drake RN - 09/16/2018 2:30 PM CST Contact Information If it is after hours call the Careline at [phone]. [facility], Anesthesia Today you received General/Minor Sedation: Rest in bed the day of surgery, then advance to normal activity the next day. Let's talk about what to expect after receiving anesthesia. After anesthesia, reactions are slow andsome patients may become lightheaded or dizzy. The following safety precautions are recommended: ?? Don't drink alcoholic beverages. ?? Don't use any other drugs than those ordered by your physician. ?? Don't drive a car or any other vehicle. ?? Don't work with machinery or power tools. ?? Be careful walking. Be extra careful walking up and down stairs. Let's talk about the DANGER SIGNALS to watch for after you go home. I should call my clinic if I experience any of the following: ?? Temperature higher than 101 degrees Fahrenheit ?? Redness that has spread ?? Persistent bleeding ?? Purulent drainage for incision site ?? Reaction to new medications ?? Severe pain ?? Swelling [employer] documented in this encounter Medications at Time of Discharge Medication Sig Dispensed Refills Start Date End Date ACCU-CHEK GERLAD PLUS Check fasting / before 350 Strip 6 test stripIndications: meals, and at bedtime, Uncontrolled type 2 . Pharmacy dispense diabetes mellitus brand based on without complication, insurance. with long-term current use of insulin aspirin, enteric-coated Take 1 Tab by mouth 90 Tab 3 81 MG enteric coated daily. tabletIndications: Uncontrolled type 2 diabetes mellitus without complication, with long-term current use of insulin famotidine (PEPCID) 10 Take 10 mg by mouth 0 MG tabletIndications: daily as needed. Uncontrolled diabetes mellitus type 2 without complications, unspecified shelter insulin use status rosuvastatin (CRESTOR) Take 1 Tab by mouth 90 Tab 3 06/02 10 MG daily. tabletIndications: Uncontrolled type 2 diabetes mellitus without complication, with long-term current use of insulin amiodarone (PACERONE) Take 200 mg by mouth. 0 11/15/2018 200 MG tablet amoxicillin (AMOXIL) Take 500 mg by mouth. 0 12/0103/18/2020 500 MG capsule aspirin, enteric-coated Take 81 mg by mouth. 0 11/15/2018 81 MG enteric coated tablet B-D UF III MINI PEN 4-5 times daily. 100 Each 11 04/25/2018 05/09/2019 NEEDLES 31G X 5 MM needle celecoxib (CELEBREX) Take 200 mg by mouth. 0 05/0211/15/2018 200 MG capsule celecoxib (CELEBREX) 1 Cap daily. 90 Cap 1 06/17/2017 200 MG capsuleIndications: Uncontrolled type 2 diabetes mellitus without complication, with long-term current use of insulin chlorthalidone Take 25 mg by mouth. 0 08/09/2018 11/15/2018 (HYGROTON) 25 MG tablet chlorthalidone Take 1 Tablet by mouth 30 Tablet 11 9 01/22/2021 (HYGROTON) 25 MG daily. tabletIndications: Uncontrolled type 2 diabetes mellitus, with long-term current use of insulin dulaglutide (TRULICITY) Inject subcutaneously. 0 01/14/2018 11/15/2018 0.75 MG/0.5ML injection pen dulaglutide (TRULICITY) Inject 0.5 mL 6 mL 3 9 10/06/2019 1.5 MG/0.5ML injeciton subcutaneously once penIndications: every week. Uncontrolled type 2 diabetes mellitus without complication, with long-term current use of insulin HYDROcodone-acetaminoph Take 1 Tablet by mouth 10 Tablet 0 09/16/2018 11/15/2018 en (NORCO) 5-325 MG every 6 hours as tablet needed for Pain. insulin glargine 60 units in AM ( give 30 mL 11 09/15/19 19 03/18/2020 (BASAGLAR) 100 UNIT/ML in 2 separate KWIKPENIndications: injections of 30 units Uncontrolled type 2 at the same time) diabetes mellitus without complication, with long-term current use of insulin insulin lispro, human, Use 4-5 units with 16.2 mL 3 02/1709/19/2018 (HUMALOG, ADMELOG) 100 meals. May sub UNIT/ML injection pen Admelog/Humalog/Novolo g based on insurance insulin pen needle (B-D USE 4-5 PER DAY UTD 0 11/22/2018 UF III MINI PEN NEEDLES) 31G X 5 MM insulin pen needle (B-D USE WITH TOUJEO AND 0 11/22/2018 ULTRAFINE III SHORT VICTOZA BID PEN) 31G X 8 MM SHORT losartan (COZAAR) 50 MG Take 75 mg by mouth. 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 24 hour release tabletIndications: Uncontrolled type 2 diabetes mellitus without complication, with long-term current use of insulin metoprolol succinate Take 25 mg by mouth. 0 08/0911/15/2018 (TOPROL XL) 25 MG 24 hour release tablet metoprolol succinate Take 1 Tablet by mouth 90 Tablet 3 03/201911/25/2020 (TOPROL XL) 25 MG 24 daily. hour release tabletIndications: Uncontrolled type 2 diabetes mellitus, with long-term current use of insulin rosuvastatin (CRESTOR) Take 40 mg by mouth. 0 11/15/2018 10 MG tablet sertraline (ZOLOFT) 100 Take 50 mg by mouth. 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 ADJUST DOSE BASED ON INR RESULTS DIRECTED warfarin (COUMADIN) 5 Take 5 mg by mouth 0 04/07/2019 MG tablet daily. documented as of this encounter Progress Notes Maryellen Montes MD - 09/16/2018 3:30 PM CST Pathology results were given to the patient over the phone. All questions were answered. Will give the patient a copy of the report at post-op visit. Maryellen Montes MD 09/20/2018, 10:14 AM [employer] documented in this encounter Procedure Notes Maryellen Montes MD - 09/16/2018 1:54 PM CST DATE OF SERVICE:?? 09/16/2018 DATE OF SURGERY:?? 09/16/2018 ATTENDING SURGEON:?? Maryellen Montes MD ASSISTANTS: None. PREOPERATIVE DIAGNOSIS: Left breast cancer. POSTOPERATIVE DIAGNOSIS:?? Left breast cancer. PROCEDURE PERFORMED: ?? 1. Radioactive seed-localized left partial mastectomy. ?? 2. Left axillary sentinel lymph node biopsy. ANESTHESIA: Local, MAC. INDICATIONS FOR THE PROCEDURE: The patient is a 68-year-old female who presented for routine screening mammogram which noted a new area of concern in the left breast. Biopsy was positive for breast cancer. She participated in our shared decision making process and ultimately decided upon a partial mastectomy. I discussed the risks, benefits, and alternatives to a radioactive??seed-localized left partial mastectomy and a left axillary sentinel lymph node biopsy. She verbalized understanding and wished to proceed.?? DESCRIPTION OF THE PROCEDURE: The patient was identified in the preoperative area. After appropriateconsent was obtained, she was taken back to the operating room and placed supine on the operating room table. SCDs were placed to her bilateral lower extremities. She was given sedation by the anesthesia team. Her chest was prepped and draped in the usual sterile fashion. A timeout was taken where thepatient and procedure were correctly identified and confirmed. She was given a preoperative dose of antibiotics. I injected 0.5 mL of methylene blue into the subareolar region and breast massage was then conducted. I used the gamma probe to identify the location of the seed. This was in the upper portion of the breast. I made an incision over this area. The subcutaneous tissues were taken down with??electrocautery. Flaps were created in all directions. I used the gamma probe to guide the dissection and took breast tissue in all directions. The specimen was oriented with a short stitch on the superior aspect and a long stitch on the lateral aspect. Counts in the specimen were greater than 15,000. There were no counts in the breast once the specimen had been removed.?? Postresectional mammogram noted the radioactive seed and clip to be present.?? Gross margins revealed that the inferior margin wasless than a centimeter. For that reason, I took additional tissue that direction and sent it to pathology. I then made an incision in the axilla. The subcutaneous tissues were taken down with electrocautery.The clavipectoral fascia was opened up. I identified 1 lymph node which measured 470 on the gamma probe. I identified a second lymph node which measured 30 on the gamma probe. I identified a third lymph node which measured 35. I identified a fourth lymph node that measured 40 on the gamma probe. Once these were removed, there were no other hot, hard, enlarged, or blue lymph nodes. The wounds were irrigated copiously.?? Hemostasis was ensured with electrocautery. The clavipectoral fascia was closed with 3-0 Vicryl. The subcutaneous tissues were closed with 3-0 Vicryl.?? The skin was closed with a running 4-0 Monocryl. Dermabond was placed on top of the incisions. The patient was awoken up from anesthesia and taken to the PACU in stable condition.?? EBL: 5 mL. SPECIMENS: ?? 1. Left breast tissue 2. New left breast inferior margin 3. Left axillary sentinel lymph nodes COMPLICATIONS: None apparent. DISPOSITION: Stable to the PACU. COUNTS:?? All sponge and instrument counts were correct x2 at the end of the??case.?? I, Dr. Maryellen Montes, was present and scrubbed for the entire procedure.?? Maryellen Montes MD 09/16/2018, 1:56 PM [employer] Maryellen Montes MD - 09/16/2018 1:42 PM CST Brief Operative Note Date of Procedure: 09/16/2018 Surgeon: Maryellen Montes Clinical Coder: none Pre-operative Diagnosis: Left breast cancer Post-operative Diagnosis: Same Procedure Performed: Radioactive seed localized left partial mastectomy and left axillary sentinel lymph node biopsy Anesthesia: Local/MAC EBL: 5ml Findings: Radioactive seed and clip in specimen by counts and post-resectional mammogram Specimen: 1. Left breast tissue 2. New left breast inferior margin 3. Left axillary sentinel lymph nodes Complications: None apparent Disposition: Stable to PACU Full operative note to follow. Maryellen Montes MD 09/16/2018, 1:42 PM [employer] documented in this encounter Plan of Treatment Upcoming Encounters Date Type Specialty Care Team Description 08/13/2022 Appointment Radiology Denise Agiurre APRN, CHECK CLERK [address] [place], [place] [address] (Wo rk) 08/13/2022 Appointment Hematology and Oncology Denise Aguirre APRN, CHECK CLERK [address] [place], [place] [address] (Wo rk) documented as [...] Name Priority Date/Time Associated Diagnosis Comme nts PARTIAL MASTECTOMY 09/16/2018 12:23 Malignant neoplasm WITH RADIOACTIVE SEED PM [employer] of left breast in LOCALIZATION & female, estrogen SENTINEL LYMPH NODE receptor positive, BIOPSY unspecified site of breast ([facility]) GLUCOSE, WHOLE BLOOD Routine 09/16/2018 11:17 Res ults for this POCT AM [employer] procedure are i n the results section. SURGICAL PATH Routine 09/16/2018 6:00 AM Results for this [employer] procedure are i n the results section. documented in this encounter Results Glucose, Whole Blood POC (09/16/2018 11:17 AM [employer]) P athologist Signature Glucose, Whole 166 70 - 180 [facility] Blood mg/dl HOSPITAL Comment: Point of Care Testing MD Notified Specimen Anatomical Collection Method Collection Time Receive d Time (Source) Location / / Volume Laterality 09/16/2018 11:17 09/16/2018 AM [employer] 11:25 AM [employer] Maryellen Montes MD LAB_1 Performing Organization Address City/State/ZIP Code Phon e Number [address] [address] Surgical Path (09/16/2018 6:00 AM [employer]) [facility] gist Method Time Signature Histology (NOTE) [facility] Surgical Final Report HOSPITAL Patient Name: IRVIN HOFFMAN Taken: 09/16/2018 Received: 09/16/2018 Reported: 09/19/2018 Physician(s): MARYELLEN MONTES ? Final Pathologic Diagnosis A. Left breast, partial mastectomy: ?- Invasive ductal carcinoma, Ramona grade 2 of 3, 1.2 cm ?- Ductal carcinoma in situ, nuclear grade 2, solid typ e ?- Atypical lobular hyperplasia ?- See Staging Parameters below B. Left axillary sentinel lymph nodes, excision: ?- Four lymph nodes negative for metastatic carcinoma ( 0/4) C. Left breast, new inferior margin, excision: ?- Atypical lobular hyperplasia ?- Focally proliferative fibrocystic change ?- Negative for ductal carcinoma in situ or invasive ca rcinoma ?- Margin is negative for malignancy ?? BREAST CANCER STAGING PARAMETERS ?? Specimen type: ??Left partial mastectomy with left axillary sentinel lymph node biopsy Tumor location: Left breast, 12 o'clock, zone 2 Multifocality: Single focus Primary Tumor: ?Histologic type: Invasive ductal carcinoma ?Histologic Grade (Oli): ??II of III, Oli score 6 of 9 (nuclear grade 2, tubules 3, mitosis 1) ?Invasive Tumor size (pT): 1.2 cm in largest dimension ?Multifocal: ??Single focus ?Associated DCIS: ??Focally present in association with invasive tumor ?Extensive intraductal component: Not present ?DCIS Type and grade: Solid type, nuclear grade 2 ?Associated microcalcifications: Not identified ?Angiolymphatic Invasion: Not identified ?Dermal lymphatic invasion: ??n/a ?Margin Status: ??Margins are not involved by DCIS or i nvasive carcinoma ?Distance to nearest margin: DCIS and invasive carcinom a are greater than 0.5 cm from margins Chest wall: Not present with specimen Skin involvement: Not present with specimen Nipple involvement: Not present with specimen Additional Findings: Atypical lobular hyperplasia Biopsy cavity: Present Regional lymph nodes (pN): ?Total number of nodes: ??4 lymph nodes including 4 sen tinel nodes ?Number of positive nodes: ??Zero Receptor Studies: ??Immunohistochemistry performed on needle core biopsy results listed below (please refer to case number [id number] ? for complete report). ER: High positive W[place]: Positive HER-2/sally: Negative (score 0-1+) Pathologic stage (pTN) (AJCC/UICC Volume 8): ??pT1c N0(sn) *Electronically Signed Out By* ? Stacie Jha MD Procedures/Addenda Clinical History 68-year-old female with left malignant neoplasm, breast estr ogen receptor positive Gross Description A. ??Left partial mastectomy with tumor (without attached sk in) Received: Fresh and labeled with the patient's name Specimen Source: Left breast tissue Weight: 52 g Dimensions: 6.9 (anterior to posterior) x 6.4 (medial to lat eral) x 3.3 (superior to inferior) cm Skin: Absent Radioactive Seed: Present Orientation: Short-superior and long-lateral Tumor: ?Size -- 1.2 (medial to lateral) x 1.1 (superior to inf erior) x 0.7 (anterior to posterior) cm ?Location -- inferior (slices 9-10 of 11; sectioned fro m anterior to posterior) ?Description -- white, firm and well-circumscribed Relationship to Margins: ?Superior (blue) -- 1.2 cm ?Inferior (orange) -- 0.6 cm ?Anterior (green) -- greater than 3 cm ?Posterior (black) -- 1.1 cm ?Medial (yellow) -- 1.1 cm ?Lateral (red) -- 2.1 cm Biopsy Site: Present within the tumor, filled with gelatinou s plug, metallic coil and radioactive seed Fibrous Tissue: 10%, white and soft Excision Time: 1259 hours, September 16, 2018 Fixation Time: 1335 hours, September 16, 2018 Intraoperative Consultation: Performed Tissue Submission: Animal Shelter Worker sections (including entire tumor) are submitted in six cassettes. 1. ??Tumor and closest perpendicular superior margin, slice 9 2. ??Tumor and closest perpendicular inferior margin, slice 10 3. ??En face anterior margin, slice 1 4. ??En face deep margin, slice 11 5. ??Tumor and closest perpendicular medial margin, slice 9 6. ??Closest perpendicular lateral margin, slice 9. B. ??The specimen is received in formalin and labeled with t he patient's name and left axillary sentinel lymph node. ??Th e specimen consists of a 3.5 x 3.2 x 1.6 cm aggregate of fat containing four benítez-yellow lymph nodes ranging from 0.7-1.2 cm. ??The lymph nodes are entirely submitted in four cassettes. 1. ??One bisected lymph node 2. ??One trisected lymph node 3. ??One trisected lymph node 4. ??One serially sectioned lymph node. ??mc C. ??Left breast, new inferior margin, without grossly ident ifiable tumor Received: In formalin and labeled with the patient's name an d new left breast inferior margin Weight & Dimensions: 14 g, 5.1 x 3.6 x 2.2 cm Orientation & Inking: Stitch designated new margin; new aiyana in -- black, opposite surface -- green Fibrous Tissue: 25% fibrous tissue, no tumor identified Excision & Fixation Times: 1340 hours, September 16, 2018 and 1401 hours, September 16, 2018 Tissue Submission: The specimen is entirely submitted in 12 cassettes (cassette 1 -- en face margins, cassettes 8, 9 and 10 bisect ed slices). ??eo [id number]/16/2018 Intraoperative/Frozen Consult Diagnosis A. ??Gross Intraoperative Diagnosis: Left breast tissue -- tumor 1.2 cm-0.6 cm from inferior; remaining greater than or equal to 1 cm. ?? (MS) Microscopic Description Microscopic examination is performed. ??The stain controls h ave been reviewed and stain appropriately. ??E-cadherin is negative i n regions of atypical lobular hyperplasia in blocks A6 and C7. 09/19/[address] [facility] Department of Pathology [address] [place], [place] ??[address] Specimen Anatomical Collection Method Collection Time Receive d Time (Source) Location / / Volume Laterality Breast 09/16/2018 6:00 AM 9 1:10 [employer] PM [employer] LYMPH NODE BIOPSY 09/16/2018 6:00 AM 09/02 1:10 SPECIMEN / Unknown [employer] PM [employer] Breast 09/16/2018 6:00 AM 9 1:10 [employer] PM [employer] Maryellen Montes MD LAB_1 Performing Organization Address City/State/ZIP Code Phon e Number [address] [address] documented in this encounter Visit Diagnoses Diagnosis Malignant neoplasm of left breast in fem grey, estrogen receptor positive, unspecified site of breast ([facility]) Malignant neoplasm of left breast in fem grey, estrogen receptor positive ([facility]) documented in this encounter Admitting Diagnoses Diagnosis Malignant neoplasm of left breast in fem grey, estrogen receptor positive ([facility]) documented in this encounter Administered Medications Inactive Administered Medications - up to 3 most recent administrations Medication Order MAR Action Action Date Dose Rate Site bupivacaine (PF) (aka Given 09/16/2018 1:19 PM 25 mL Left Breast Fold SENSORCAINE) 0.5% [employer] injection ONCE PRN, Starting on Wed09/16/18 at 1319, Until Wed09/16/18 at 1731, Intra-op dexamethasone (DECADRON) injection 4-8 m g 4-8 mg, Intravenous, Q15MIN PRN, Other, Nausea, Starting on Wed09/16/18 at 1402, Until Wed09/16/18 at 1731, For 2 doses, Step 2 Dexamethasone 4-8 mg IV If not given in operating room. (Use in PACU only). I f medication given in OR may give up to 8 mg total dose (including intra-operative dose) or go t o step 3. If nausea not resolved in 15 minutes go to step 3 if o rdered otherwise proceed to next antiemetic step.., PACU (only) fentaNYL (SUBLIMAZE) injection 25-50 mcg 25-50 mcg, Intravenous, [id number], Pain, Starting on Wed09/16/18 at 1402, Until Wed09/16/18 at 1731, 25 mcg IV q5min prn bas ed on the patient's pain scale rating for mild to moderate pain (1 to 5). 50 mcg IV q5min prn ba sed on the patient's pain scale rating for moderate to severe pain (6 to 10). Total PACU fentanyl dose not to exceed 200 mcg. Use fentanyl initially f or a short acting agent for treatment of acute post operative pain. May use in conjuction with a longer acting agent for optimal pain control. Respiratory rate must be greater than 10 to administer medications., PACU (only) insulin lispro (HumALOG, ADMELOG) inject ion vial 2-4 Units 2-4 Units, Subcutaneous, PRN BASED ON BLOOD SUGAR, Blo od Sugar >, Blood Sugars, Starting on Wed09/16/18 at 1402, PACU PA TIENTS ONLY Blood Sugar 151-199 mg/dl give 2 units, Blood Sugar 200-250 mg/dl give 3 units, Blood Sugar > 250 mg/dl give 4 units and call anesthesia, PACU (only) lactated ringers infusion Started 09/16/2018 11:25 AM [employer] 30 mL/hr Intravenous, at 30 mL/hr, CONTINUOUS, Starting on Wed09/16/18 at 1115, Pre-op lidocaine-epinephrine 1 Given 09/16/2018 1:19 PM 25 mL Left Breast Fold %-1:[id number] injection [employer] ONCE PRN, Starting on Wed09/16/18 at 1319, Until Wed09/16/18 at 1731, Intra-op methylene blue (PROVAY BLUE) Given 09/16/2018 2:50 PM [employer] 1 mL Left Breast Fold 0.5% (5 mg/mL) injection ONCE PRN, Starting on Wed09/16/18 at 1450, Until Wed09/16/18 at 1731, Intra-op metoclopramide (REGLAN) injection 5 mg 5 mg, Intravenous, Q6H PRN, Nausea, Vomiting, Starting on Wed09/16/18 at 1402, Until Wed09/16/18 at 1731, Give 1st line medications then 2nd line then 3rd line. Progress to next line if medication is ineffective aft er 15 minutes or has been previously ineffective, or if a medication for a line is not ordered. May use medication from any line if patient preference indicat es. If third line agent ineffective call MD. If unable to give IV medications contact MD. 1st Line - prochlorperazine , 2nd Line - ondansetron 3rd Line - m etoclopramide, Post-op ondansetron (ZOFRAN) injection 4 mg 4 mg, Intravenous, Q15MIN PRN, Nausea, S tarting on Wed09/16/18 at 1402, Until Wed09/16/18 at 1731, For 2 doses, Step 1 Ond ansetron 4 mg IV If not given in operating room. (PACU use only) If an intra-operat aisha dose was given may repeat up to a total dose of 8 mg (including intra-operative dose). If naus ea is not resolved in 15 minutes go to step 2 (Dexamethasone) if ordered otherw ise proceed to next antiemetic step., PACU (only) ondansetron (ZOFRAN) injection 4 mg 4 mg, Intravenous, Q8H PRN, Nausea, Vomiting, Starting on Wed09/16/18 at 1402, Until Wed09/16/18 at 1731, Give 1st line medications then 2nd line then 3rd line. Progress to next line if medication is ineffective aft er 15 minutes or has been previously ineffective, or if a medication for a line is not ordered. May use medication from any line if patient preference indicat es. If third line agent ineffective call MD. If unable to give IV medications contact MD. 1st Line - prochlorperazine , 2nd Line - ondansetron 3rd Line - m etoclopramide, Post-op prochlorperazine (COMPAZINE) injection 1 0 mg 10 mg, Intravenous, Q6H PRN, Nausea, Vomiting, Startin g on Wed09/16/18 at 1402, Until Wed09/16/18 at 1731, Give 1st line medications then 2nd line then 3rd line. Progress to next line if medication is ineffective aft er 15 minutes or has been previously ineffective, or if a medication for a line is not ordered. May use medication from any line if patient preference indicat es. If third line agent ineffective call MD. If unable to give IV medications contact MD. 1st Line - prochlorperazine , 2nd Line - ondansetron 3rd Line - m etoclopramide, Post-op documented in this encounter Active and Recently Administered Medications Times are shown in [employer]. Scheduled Medication Order 09/14/2018 09/15/2018 09/16/2018 ceFAZolin (ANCEF) 1 g in sodium chloride 0.9 % 50 mL IVPB (COMPL ETED) 1236 (Started - Provider: Herlinda Ford APRN, SHANNON) 1 g, Intravenous, Administer over 30 Min utes, ONCE (NON-SCHEDULED), Starting Wed09/16/18 at 1056, For 1 dose, For patient weight greater than or equal to 120kg , PRE-OP ANTIBIOTIC, Total dose equals 3 grams., Pre-op ceFAZolin (ANCEF) 2 g in dextrose 50 mL IVPB (COMPLETED) 1236 (Given - Provider: Herlinda Ford APRN, SHANNON) 2 g, Intravenous, Administer over 30 Min utes, ONCE (NON-SCHEDULED), Starting Wed09/16/18 at 1050, For 1 dose, For patient weight greater than or equal to 120kg , PRE-OP ANTIBIOTIC, Total dose equals 3 grams., Pre-op HYDROcodone-acetaminophen (NORCO) 5-325 MG per tablet 1-2 Tablet 1-2 Tablet, Oral, PACU, Starting Wed09/16/18 at 1343, q4h prn Continuous Medication Order 09/14/2018 09/15/2018 09/16/2018 lactated ringers infusion 1125 ( Started - Provider: Thanh Thomas RN)1353 (Infused - Provider: Herlinda Ford APRN, CRYOLITE RECOVERY OPERATOR) Intravenous, at 30 mL/hr, CONTINUOUS, Starting Wed09/16/18 at 11 15, Pre-op PRN Medication Order 09/14/2018 09/15/2018 09/16/2018 bupivacaine (PF) (aka SENSORCAINE) 0.5% injection 1319 (Given - Provider: Maryellen Montes MD) ONCE PRN, Starting Wed09/16/18 at 1319, Intra-op dexamethasone (DECADRON) injection 4-8 mg 4-8 mg, Intravenous, Q15MIN PRN, Other, Nausea, Starting Wed09/16/18 at 1402, For 2 doses, Step 2 Dexamethasone 4-8 mg IV If not given in operating room. (Use in PACU only). If medication given in OR ma y give up to 8 mg total dose (including intra-operative dose) or go to step 3. If nausea not resolved in 15 minutes go to step 3 if ordered otherwise proceed to next antiemetic step.., PACU (only) fentaNYL (SUBLIMAZE) injection 25-50 mcg 25-50 mcg, Intravenous, [id number], Pain, Starting Wed09/16/18 at 1402, 25 mcg IV q5min prn based on the patient's pain scale rating for mild to moderate pain (1 to 5). 50 mcg IV q5min prn based on the pa tient's pain scale rating for moderate t o severe pain (6 to 10). Total PACU fentanyl dose not to exceed 200 mcg. Use fentanyl initially for a short acting agent for treatment of acute post operative linda n. May use in conjuction with a longer a cting agent for optimal pain control. Respiratory rate must be greater than 10 to administer medications., PACU (only) insulin lispro (HumALOG, ADMELOG) injection vial 2-4 Units 2-4 Units, Subcutaneous, PRN BASED ON BL OOD SUGAR, Blood Sugar >, Blood Sugars, Starting Wed09/16/18 at 1402, PACU PATIENTS ONLY Blood Sugar 151-199 mg/dl give 2 units, Blood Sugar 200-250 mg/dl give 3 units, Blood Sugar > 250 mg/dl give 4 units and sheyla l anesthesia, PACU (only) lidocaine-epinephrine 1 %-1:[id number] injection 1319 (Given - Provider: Maryellen Montes MD) ONCE PRN, Starting 09/16/18 at 1319, Intra-op methylene blue (PROVAY BLUE) 0.5% (5 mg/mL) injection 1450 (Given - Provider: Maryellen Montes MD) ONCE PRN, Starting 09/16/18 at 1450, Intra-op metoclopramide (REGLAN) injection 5 mg(Linked Group 1) 5 mg, Intravenous, Q6H PRN, Nausea, Vomi ting, Starting Wed09/16/18 at 1402, Give 1st line medications then 2nd line then 3rd line. Progress to next line if medication is ineffective after 15 minutes or has been previously ineffective, or if a medication for a line is not ordered. May use medication from any line if patient preference indicates. If third line agent ineffective call MD. If unable to giv e IV medications contact MD. 1st Line - prochlorperazine , 2nd Line - ondansetron 3rd Line - metoclopramide, Post-op ondansetron (ZOFRAN) injection 4 mg 4 mg, Intravenous, Q15MIN PRN, Nausea, S tarting 09/16/18 at 1402, For 2 doses, Step 1 Ondansetron 4 mg IV If not given in operating room. (PACU use only) If an intra-operative dose was given may repe at up to a total dose of 8 mg (including intra-operative dose). If nausea is not resolved in 15 minutes go to step 2 (Dexamethasone) if ordered otherwise proceed to next antiemetic step., PACU (only) ondansetron (ZOFRAN) injection 4 mg(Linked Group 1) 4 mg, Intravenous, Q8H PRN, Nausea, Vomi ting, Starting 09/16/18 at 1402, Give 1st line medications then 2nd line then 3rd line. Progress to next line if medication is ineffective after 15 minutes or has been previously ineffective, or if a medication for a line is not ordered. May use medication from any line if patient preference indicates. If third line agent ineffective call MD. If unable to giv e IV medications contact MD. 1st Line - prochlorperazine , 2nd Line - ondansetron 3rd Line - metoclopramide, Post-op prochlorperazine (COMPAZINE) injection 10 mg(Linked Group 1) 10 mg, Intravenous, Q6H PRN, Nausea, Vom iting, Starting 09/16/18 at 1402, Give 1st line medications then 2nd line then 3rd line. Progress to next line if medication is ineffective after 15 minutes or has been previously ineffective, or if a medication for a line is not ordered. May use medication from any line if patient preference indicates. If third line agent ineffective call MD. If unable to gi ve IV medications contact MD. 1st Line - prochlorperazine , 2nd Line - ondansetron 3rd Line - metoclopramide, Post-op Linked Groups Order Group 1: prochlorperazine (COMPAZINE) injection 10 mgJump to med 10 mg, Intravenous, Q6H PRN, Nausea, Vom iting, Starting 09/16/18 at 1402
Give 1st line medications then 2nd line then 3rd line. Progress to next line if medication is inef fective after 15 minutes or has been pre viously ineffective, or if a medication for a line is not ordered. May use medication from any line if patient preference indicates. If third line agent ineffecti ve call MD. If unable to give IV medicat ions contact MD. 1st Line - prochlorperazine
2nd Line - ondansetron 3rd Line - metoclopramide
Post-op Or ondansetron (ZOFRAN) injection 4 mgJump to med 4 mg, Intravenous, Q8H PRN, Nausea, Vomi ting, Starting 09/16/18 at 1402
Give 1st line medications then 2nd line then 3rd line. Progress to next line if medication is ineff ective after 15 minutes or has been prev iously ineffective, or if a medication for a line is not ordered. May use medication from any line if patient preference indicates. If third line agent ineffectiv e call MD. If unable to give IV medicati ons contact MD. 1st Line - prochlorperazine
2nd Line - ondansetron 3rd Line - metoclopramide
Post-op Or metoclopramide (REGLAN) injection 5 mgJump to med 5 mg, Intravenous, Q6H PRN, Nausea, Vomi ting, Starting 09/16/18 at 1402
Give 1st line medications then 2nd line then 3rd line. Progress to next line if medication is ineff ective after 15 minutes or has been prev iously ineffective, or if a medication for a line is not ordered. May use medication from any line if patient preference indicates. If third line agent ineffectiv e call MD. If unable to give IV medicati ons contact MD. 1st Line - prochlorperazine
2nd Line - ondansetron 3rd Line - metoclopramide
Post-op documented in this encounter Care Teams Ventilating Equipment Installer Relationship Specialty Start Date End Date Elyse Paredes MD PCP - General Family Practice 03/19/17 [address] [place] [address] documented as of this encounter
--- OUTSIDE RECORDS SUMMARY | 2022-07-02 13:55 | XMS_ITS | Encounter Summary ---
:1950 Author Organization [facility] Address [address] [place] [id number] Care Team Providers Name Role Phone Elyse Paredes MD Primary Care Provider Reason for Visit Reason Onset Date Comments Refill 09/15/2018 Kendall Encounter Details Date Type Department Care Team Description 09/15/2018 Refill Specialty [facility] 401 Fatmata Maddox MD Refill (Basaglar) Endocrinology Clinic 111 [facility] [address] [place] [address] [place] [address] [phone] (Wo rk) Social History Tobacco Use Types Packs/Day Years Used Date Smoking Tobacco: Former Cigarettes Quit : 08/02/1981 Smokeless Tobacco: Never Alcohol Use Standard Drinks/Week Comments No 0 (1 standard drink = 0.6 oz pure alcoho l) Sex Assigned at Date Recorded Not on file documented as of this encounter Nursing Notes Yosi Greco RN - 09/15/2018 3:27 PM CST Completed per Physician Order. Yosi Greco RN RVISOR ANODIZING Jacquelyn Matos RN - 09/15/2018 3:00 PM CST Last seen by Dr. Salas. Routing to her care team to address. Jacquelyn Matos RN 09/15/2018, 3:00 PM RVISOR ANODIZING Interface, Out LayerGloss Prov Query - 09/15/2018 1:47 PM CST insulin glargine (BASAGLAR) 100 UNIT/ML ONEIDA Diabetes - Insulin -> The request contains a note from the pharmacy. -> Due to an unreadable sig, manually ensure the patient is due for a renewal. -> HBA1C is abnormal (8.2 % is greater than 7.9 %) -> Refill x 3 months (until due for a(n) HBA1C check) -> Calculate quantity and refills manually. They could not be estimated due to missing or unreadable information. Last qualifying visit: 08/09/2018 (in Endocrinology with TAWANDA SALAS) Next scheduled visit: 11/29/2018 (in Endocrinology with TAWANDA SALAS) Last ordered by FATMATA MADDOX: 04/27/2018 (141 days ago) QTY: 30, Refills: 1, Si units in am( give in 2 separate injections of 30 units at the same time) (unchanged) HBA1C: 8.2 % on 08/09/2018 Powered by [employer], Reference: [id number], 09/15/2018 1:47:40 PM SOFIYA, Pool: ENDO REFILL PAYTON ([id number]) Afsaneh Little - 09/15/2018 1:46 PM CST Last refilled: [id number] Dispense amount of last refill: 30 RVISOR ANODIZING documented in this encounter Plan of Treatment Upcoming Encounters Date Type Specialty Care Team Description 08/13/2022 Appointment Radiology Denise Aguirre, SHIP'S MASTER, AUDIENCE DEVELOPMENT MANAGER [address] [place], [place] [address] (Wo rk) 08/13/2022 Appointment Hematology and Oncology Denise Aguirre, SHIP'S MASTER, AUDIENCE DEVELOPMENT MANAGER [address] [place], [place] [address] (Wo rk) documented as [...] insulin documented in this encounter Care Teams Metal Miner Relationship Specialty Start Date End Date Elyse Paredes MD PCP - General Family Practice 03/19/17 [address] [place] [address] documented as of this encounter
--- OUTSIDE RECORDS SUMMARY | 2022-07-02 13:55 | XMS_ITS | Encounter Summary ---
:1950 Author Organization [facility] Address [address] [place] [address] Care Team Providers Name Role Phone Elyse Paredes MD Primary Care Provider Reason for Referral Therapies (Routine) - Closed Specialty Diagnoses / Procedures Referred By Contact Refer red To Contact Diagnoses Malignant neoplasm of overlapping sites of left breast in female, estrogen receptor positive (HRC) Elisa Madrid MBBS [address] [place] [address] Referral ID Status Reason Start Date Expiration Date Visits Requ ested Visits Authorized [id number] Closed 10/21/2018 12/20/2018 1 1 Scheduling Instructions Your provider has recommended an appoint ment with [facility]. You may call [phone] to schedule yo ur appointment. If you prefer, a manufacturing scheduler will contact you within the next 3 busin ess days to assist you in setting up this appointment. We suggest you call your [employer] insurance company about your coverage and benefits for this appointment. Reason for Visit Reason Comments Test Results Encounter Details Date Type Department Care Team Description 10/20/2018 Telephone [facility] Elisa Madrid Test Results at [facility] JORDAN Kahn [address] [address] [place] [address] [phone] (Wo rk) Social History Tobacco Use Types Packs/Day Years Used Date Smoking Tobacco: Former Cigarettes Quit : 08/02/1981 Smokeless Tobacco: Never Alcohol Use Standard Drinks/Week Comments No 0 (1 standard drink = 0.6 oz pure alcoho l) Sex Assigned at Date Recorded Not on file documented as of this encounter Nursing Notes Cherise Zaidi RN - 10/20/2018 4:04 PM CDT Informed Marci of her Oncotype results, which is [address] Madrid's plan from 09/30: Plan: 1. Breast cancer tissue to be sent for Oncotype DX RT-PCR testing. Results are expected in two weeks. 2. If the Oncotype DX recurrence score is greater than 25, then meet with me to discuss four cycles of adjuvant docetaxel, cyclophosphamide chemotherapy, followed by adjuvant breast radiation and adjuvant endocrine therapy. 3. If the Oncotype DX recurrence score is less than 25 then radiation oncology consultation and see me towards the end of radiation with DEXA scan, serum 25- hydroxy vitamin D, creatinine, calcium, phosphorus prior to the visit with me for initiation of adjuvant endocrine therapy based on the baseline bone mineral density. ?? Informed her a order for Radiation will need to be placed before she can make the appointment She understood and agreed with the plan Cherise Zaidi RN 10/20/2018, 4:06 PM Stacie Zhao - 10/20/2018 2:17 PM CDT Pt states she is wondering if we have the oncotype results . Stacie Zhao 10/20/2018, 2:18 PM documented in this encounter Plan of Treatment Upcoming Encounters Date Type Specialty Care Team Description 08/13/2022 Appointment Radiology Denise Aguirre APRN, BATTERY REPAIRER [address] [place], [place] [address] (Tonio sorenson) 08/13/2022 Appointment Hematology and Oncology Denise Aguirre APRN, BATTERY REPAIRER [address] [place], [place] [address] (Tonio sorenson) Scheduled Referrals Name Type Priority Associated Diagnoses [...] the original. Monitoring My Diabetes: Continue to [facility] k blood sugars before each meal and bedtime. documented as of this encounter Visit Diagnoses Diagnosis Malignant neoplasm of overlapping sites of left breast in female, estrogen receptor positive (HRC) - Primary documented in this encounter Care Teams Wheat Inspector Relationship Specialty Start Date End Date Elyse Paredes MD PCP - General Family Practice 03/19/17 [address] [place] [address] documented as of this encounter
--- OUTSIDE RECORDS SUMMARY | 2022-07-02 13:55 | XMS_ITS | Encounter Summary ---
:1950 Author Organization [facility] Address [address] [place] [address] Care Team Providers Name Role Phone Elyse Paredes MD Primary Care Provider Reason for Visit Consult/Transfer Care (Routine) - Closed Specialty Diagnoses / Procedures Referred By Contact Refer red To Contact Diagnoses Malignant neoplasm of overlapping sites of left breast in female, estrogen receptor positive (HRC) Maryellen Beaulieu MD [address] [place] [address] Referral ID Status Reason Start Date Expiration Date Visits Requ ested Visits Authorized [id number] Closed 08/11/2018 11/10/2019 1 1 Encounter Details Date Type Department Care Team Description 09/30/2018 Office Visit [facility], Malign ant neoplasm Center at [facility] overlapping [facility] [address] [facility] sites of left [address] [facility]. [place], [place] breast in female, [place] [id number] estrogen receptor [phone] (Wo rk) positive (HRC) (Primary Dx) Social History Tobacco Use Types Packs/Day Years Used Date Smoking Tobacco: Former Cigarettes Quit : 08/02/1981 Smokeless Tobacco: Never Alcohol Use Standard Drinks/Week Comments No 0 (1 standard drink = 0.6 oz pure alcoho l) Sex Assigned at Date Recorded Not on file documented as of this encounter Last Filed Vital Signs Vital Sign Reading Time Taken Comments Blood Pressure 135/62 09/30/2018 10:29 AM ELECTRICAL PRODUCTS SALES ENGINEER Pulse 73 09/30/2018 10:29 AM ELECTRICAL PRODUCTS SALES ENGINEER Temperature 37.2 ??C (98.9 ??F) 09/30/2018 10:29 AM ELECTRICAL PRODUCTS SALES ENGINEER Respiratory Rate - - Oxygen Saturation - - Inhaled Oxygen Concentration - - Weight 131.1 kg (289 lb) 09/30/2018 10:29 AM ELECTRICAL PRODUCTS SALES ENGINEER Height - - Body Mass Index 52.86 09/16/2018 11:15 AM ELECTRICAL PRODUCTS SALES ENGINEER documented in this encounter Patient Instructions Patient InstructionsElisa Madrid MBBS - 09/30/2018 10:20 AM ELECTRICAL PRODUCTS SALES ENGINEER Dear Marci, It was a pleasure to meet you. Plan: 1. Breast cancer tissue to be [...] based on the baseline bone mineral density. Please do not hesitate to contact us at [phone] any time. Thank you. Sincerely, JORDAN Jiang TRICAL PRODUCTS SALES ENGINEER documented in this encounter Progress Notes Elisa Madrid MBBS - 09/30/2018 10:20 AM CST Medical Oncology Consult Note Date of Service: 09/30/2018 I had the pleasure of seeing . Marci Staley Emily for breast cancer at the request of Dr. Beaulieu. 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 Intent of Therapy: Curative (explained to the patient on 09/30/2018). Guidelines used for treatment: National Comprehensive Cancer Network (NCCN). Treatment: 09/16/2018: Left partial mastectomy and sentinel lymph node sampling. History of present illness: Marci Diaz is a 68 y.o. 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 She has chronic exertional dyspnea which is being investigated and managed by her cardiology team. Her diabetes is not under good control, managed by her robotics technologist. He denies any symptoms suggestive of peripheral neuropathy. Menstrual status: Post menopausal. Review of Systems: Detailed 12 point ROS was performed and was positive only for the symptoms mentioned above. ECOG performance status: 0. Patient Active Problem List Diagnosis ??? Uncontrolled [...] Diabetes Education ??? 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 Malignant neoplasm of left breast in female, estrogen receptor positive (HRC) Allergies Allergen Reactions ??? Erythromycin Rash ??? Lisinopril Other, see comments Dry cough ??? Metformin Other, see comments and Nausea And Vomiting diarrhea Outpatient Medications Prior to Visit Medication Sig Note Dispense Refill ??? ACCU-CHEK GERALD PLUS test strip Check fasting / before meals, and at bedtime, . Pharmacy dispense brand based on insurance. 350 Strip 6 ??? aspirin, enteric-coated 81 MG enteric coated tablet Take 1 Tab by mouth daily. 90 Tab 3 ??? B-D UF III MINI PEN NEEDLES 31G X 5 MM needle 4-5 times daily. 100 Each 11 ??? celecoxib (CELEBREX) 200 MG capsule 1 Cap daily. 90 Cap 1 ??? chlorthalidone (HYGROTON) 25 MG tablet Take 1 Tablet by mouth daily. 30 Tablet 11 ??? dulaglutide (TRULICITY) 1.5 MG/0.5ML injeciton pen Inject 0.5 mL subcutaneously once every week.6 mL 3 ??? famotidine (PEPCID) 10 MG tablet Take 10 mg by mouth. 03/19/2017: Received from: [email or web address] Received Sig: Take 10 mg by mouth 2 times daily. ??? HYDROcodone-acetaminophen (NORCO) 5-325 MG tablet Take 1 Tablet by mouth every 6 hours as neededfor Pain. 10 Tablet 0 ??? insulin glargine (BASAGLAR) 100 UNIT/ML KWIKPEN 60 units in AM ( give in 2 separate injections of 30 units at the same time) 30 mL 11 ??? insulin lispro, human, (HUMALOG, ADMELOG) 100 UNIT/ML injection pen Inject 6 Units subcutaneously three times daily before meals. if HS bg > 200 may take 4 units of humalog to bring it down 30 mL 3 ??? losartan (COZAAR) 50 MG tablet 03/19/2017: Received from: External Pharmacy ??? metFORMIN XR (GLUCOPHAGE XR) 500 MG 24 hour release tablet Take 4 Tabs by mouth daily with breakfast. (Patient not taking: Reported on 01/14/2018) 360 Tab 3 ??? metoprolol succinate (TOPROL XL) 25 MG 24 hour release tablet Take 1 Tablet by mouth daily. 90 Tablet 3 ??? rosuvastatin (CRESTOR) 10 MG tablet Take 1 Tab by mouth daily. 90 Tab 3 ??? sertraline (ZOLOFT) 100 MG tablet Take 1/2 tab daily 03/19/2017: Received from: [email or web address] ??? warfarin (COUMADIN) 5 MG tablet Take 5 mg by mouth daily. 08/05/2018: Wednesday and Wednesday takes 5 mg. Wed Sat Sun takes 2.5 mg No facility-administered medications prior to visit. Family History Problem Relation Age of Onset ??? Cancer, Breast Negative Family History ??? Cancer, Colon Negative Family History ??? Cancer, Lung Negative Family History ??? Cancer, Ovary Negative Family History ??? Cancer, Prostate Negative Family History ??? Cancer, Pancreatic Negative Family History Social History Socioeconomic History ??? Marital status: Spouse name: Not on file ??? Number of children: Not on file ??? Years of education: Not on file ??? Highest education level: Not on file Occupational History ??? Not on file Social Needs ??? Financial resource strain: Not on file ??? Food insecurity: Worry: Not on file Inability: Not on file ??? Transportation needs: Medical: Not on file Non-medical: Not on file Tobacco Use ??? Smoking status: Former Smoker Last attempt to quit: 08/02/1981 Years since quittin.1 ??? Smokeless tobacco: Never Used Substance and Sexual Activity ??? Alcohol use: No ??? Drug use: Not on file ??? Sexual activity: Not on file Lifestyle ??? Physical activity: Days per week: Not on file Minutes per session: Not on file ??? Stress: Not on file Relationships ??? Social connections: Talks on phone: Not on file Gets together: Not on file Attends mandaeism service: Not on file Active member of club or organization: Not on file Attends meetings of clubs or organizations: Not on file Relationship status: Not on file ??? Intimate partner violence: Fear of current or ex partner: Not on file Emotionally abused: Not on file Physically abused: Not on file Forced sexual activity: Not on file Other Topics Concern ??? Not on file Social History Narrative ??? Not on file Physical exam: 1. BP 135/62 Pulse 73 Temp 98.9 ??F (37.2 ??C) (Oral) Wt 289 lb (131.1 kg) BMI 52.86 kg/m?? 2. General: alert, oriented X 3, comfortable. 3. HEENT exams reveal no significant abnormalities. 4. Neck is supple. 5. Lymphatic: No palpable cervical, supraclavicular, axillary or inguinal adenopathy. 6. Breast exam was not performed today as it was recently performed by our surgical colleagues. 7. Cardiovascular: No jugular venous distention. S1, S2 are normal. No S3/S4/rub/murmur. 8. Pulmonary: Normal vesicular breath sounds are heard in all lung silver bilaterally without any rales or rhonchi. 9. Abdomen: Soft, nontender. No palpable hepatosplenomegaly or masses. Bowel sounds normoactive. 10. Extremities: No edema/ clubbing/ cyanosis. 11. Neurologic: No significant neurologic deficits. 12. Spine: No tenderness. 13. Skin: No significant rashes. 14. Psych: Mood and affect are normal. Decision-making capacity is intact. Data review today: I have personally reviewed the breast imaging studies, pathology and operative notes. Relevant findings are summarized above. Assessment: A 68-year-old lady with postmenopausal stage I, hormone receptor positive, HER-2/sally negative breast cancer, status post partial mastectomy and sentinel lymph node sampling with microscopically negative margins. Please see the above summary for details. Medical decision making: ?? #1. What is the biology of her breast cancer? In general, hormone receptor positive, HER-2/sally negative, cancers have luminal- A / intrinsic signature on DNA microarrays. These tumors have less aggressive biology than their counterparts. ?? The good prognostic features in this patient's case include small size of the primary, lack of involvement of the regional lymph nodes, high expression of hormone receptors and lack of overexpression of HER-2/sally. ?? #2. What is the risk of recurrence of her breast cancer? ?? Oncotype DX is a model to assess the risk of recurrence of breast cancer and benefit of adjuvant endocrine and chemotherapy. This is a 21 gene RT-PCR test performed on paraffin embedded primary breast tumor. The test has been validated on specimens from large randomized multicenter clinical trials in hormone receptor positive, node negative (NSABP B-14 and B-20 trials) breast cancer and more recentlyin hormone receptor positive, node positive (SWOG-8811 trial). ?? In the NSABP B-14 clinical trial, the risk of recurrence of cancer was proportionate to the OncotypeDX recurrence score in patients receiving adjuvant tamoxifen therapy. Similar data have been confirmed in the [facility] clinical trial with Arimidex. In the NSABP B 20 clinical trial patients with low Oncotype DX recurrence score had low risk of recurrence with adjuvant tamoxifen therapy and did not benefit from adjuvant chemotherapy. However, patients with high Oncotype DX recurrence score derived significant benefit from adjuvant MF/CMF chemotherapy. Hence, this assay can be used to estimate the risk of recurrence on adjuvant endocrine therapy alone and adjuvant chemotherapy in patients with hormone receptor positive, node negative breast cancer, as in this case. ?? In the prospective TAILORx clinical trial node negative, hormone receptor positive, HER-2/sally negative breast cancer patients with Oncotype DX recurrence score of less than 25 were randomized to receive the chemotherapy versus no chemotherapy. All patients received adjuvant endocrine therapy. For the entire study population, there was no incremental benefit of adjuvant chemotherapy for Oncotype DX recurrence score of less than 25. For patients younger than 50 years of age with respective the menopausal status with Oncotype DX recurrence score between 20 and 25 had 6.5 percent improvement in recurrence free survival at nine years. Thus, in her case if the Oncotype DX recurrence score is less than 25, then there would not be any benefit of adjuvant chemotherapy. However, if the Oncotype DX recurrence score is greater than 25, then there would be statistically significant and clinically significantincremental benefit of adjuvant chemotherapy. ?? I explained all of the above to the patient in lay language. She has verbalized a clear understanding, asked appropriate questions, which have been answered to her apparent satisfaction. She wants her tumor to be sent for Oncotype Dx RT-PCR testing. ?? #3. Adjuvant radiation therapy is an integral part of breast conservative therapy and has been shownto reduce the risk of locoregional recurrence of breast cancer. Patient is anticipating receiving adjuvant radiation therapy. ?? #4. Choice of endocrine therapy: ?? In postmenopausal women, integration of aromatase inhibitors either as front- line therapy (ATAC andBIG 1-98 trials) or sequentially after 2-5 years of tamoxifen (MA.17 and IES trials) has been shown to improve disease free survival by 3-4% over five years of tamoxifen alone. Hence, aromatase inhibitor should be integrated in the adjuvant treatment of postmenopausal breast cancer. ?? Aromatase inhibitors are associated with bone mineral loss resulting in osteoporosis and fractures, particularly in patients with low baseline bone density. Hence DEXA scan will be obtained to assess bone mineral density to determine appropriate adjuvant endocrine therapy. If significant osteopenia or osteoporosis are present, then bone directed therapy (bisphophonate or denosumab) plus tamoxifen followed by sequential aromatase inhibitor after improvement of bone mineral density would be appropriate. In the absence of significant osteopenia or osteoporosis, front-line aromatase inhibitor would be appropriate. ?? #5. Other important aspects of care: She has no significant comorbidities. Her ECoG performances status is 0. Her clinical nutritional status is good. She has strong support of her family and friends and is emotionally and physically coping very well with the diagnosis and management of her breast cancer and does not feel need for professional psychosocial counseling/support, which were offered to her at this visit. Family history is not suggestive of familial cancer syndrome, hence genetic counseling is not indicated Plan: 1. Breast cancer tissue to be [...] based on the baseline bone mineral density. Counseling: All of the above was explained to the patient in lay language. The patient has verbalized a clear understanding of the discussion, asked appropriate questions, which have been answered to patient's apparent satisfaction. The patient is in agreement with the above plan. QOPI Data: (Press F2) Pathology report verified: Yes Disease stage: I Pain: 0 Smoking: Never Emotional well being assessed:Yes, Referral placed: No, Med: No Chemotherapy plan: curative, Intent discussed with pt: Yes, Pt consented for chemo: verbal Advanced Directives: N/A JORDAN Jiang TRICAL PRODUCTS SALES ENGINEER Lilly Kim RN - 09/30/2018 10:20 AM CST Oncotype request sent to pathology report. Lilly Kim RN 09/30/2018, 3:59 PM TRICAL PRODUCTS SALES ENGINEER documented in this encounter Plan of Treatment Upcoming Encounters Date Type Specialty Care Team Description 08/13/2022 Appointment Radiology Denise Aguirre, DEVELOPMENTAL ELECTRONICS ASSEMBLER, TECHNICAL ASST [address] [place] [address] [place] [phone] (Wo rk) 08/13/2022 Appointment Hematology and Oncology Denise Aguirre, GRIFFIN, TECHNICAL ASST [address] [place], [place] [address] (Wo rk) Scheduled Referrals Name Type Priority Associated Diagnoses Order S chedule Oncology/Hematology Referral Routine Malignant neoplasm of Ordered: 08/11/2018 Consult Adult overlapping sites of left breast in female, [...] Primary documented in this encounter Care Teams Room Service Server Relationship Specialty Start Date End Date Elyse Paredes MD PCP - General Family Practice 03/19/17 [address] [place] [address] documented as of this encounter
--- OUTSIDE RECORDS SUMMARY | 2022-07-02 13:55 | XMS_ITS | Encounter Summary ---
:1950 Author Organization [facility] Address [address] [place] [address] Care Team Providers Name Role Phone Elyse [...] Expiration Date Visits Requ ested Visits Authorized [id number] 1 1 Encounter Details Date Type Department Care Team Description 09/16/2018 Ancillary Procedure [facility] Maryellen Beaulieu MD Mal[facility] neoplasm [facility] [address] of left breast in [address] [facility] female, [place] [address] [place], [place] receptor positive, [id number] unspecified site of [phone] breast (HRC) (Work) Social History Tobacco Use [...] Description 08/13/2022 Appointment Radiology Denise Aguirre APRN, [employer] [address] [place], [place] [address] (Wo rk) 08/13/2022 Appointment Hematology and Oncology Denise Aguirre APRN, [employer] [address] [place] [phone] (Wo rk) documented as of this [...] Priority Date/Time Associated Diagnosis Comme nts MM SENT NODE SEED Routine 09/16/2018 10:16 AM Malignant neopla sm Results for this LOC WO NM IMG LT HEAD MILLER of left breast in proced ure are in female, estrogen the results receptor positive, section. unspecified site of breast (HRC) documented in this encounter Results MM Sent Node Seed Loc WO NM Img Lt (09/16/2018 10:16 AM HEAD MILLER) Anatomical Region Laterality Modality Breast Mammography, Nuclear Medicine Specimen (Source) Anatomical Location Collection Method / Collectio n Time Received Time / Laterality Volume Impressions 09/16/2018 10:27 AM HEAD MILLER : ?? Sonographically guided left breast radio active seed localization and sentinel lymph node injection. Narrative 09/16/2018 10:27 AM HEAD MILLER LEFT BREAST ULTRASOUND GUIDED RADIOACTIV E SEED LOCALIZATION AND SENTINEL LYMPH NODE INJECTION INDICATION: ??Pre-operative localization of mass/invsive ductal carcinoma at 12 o'clock, zone 2 PROCEDURE: ??Informed consent was obtain ed from the patient. The breast was cleansed with ChloraPrep. Buffered lidoc soheila was used for local anesthesia. A 20-gauge needle was then a dvanced to the area of abnormality. ??A radioactive seed was th en deployed. The radioactive seed contained 148 uci I-125. The seed locati on was confirmed with a two view mammogram. The nipple was cleansed with ChloraPrep. 510 uci of technetium 99M filtered sulfur colloid was injected in an intradermal and subareolar fashion opposite the axilla. No complica tions. Maryellen Beaulieu MD RAD NM documented in this encounter Visit Diagnoses Diagnosis Malignant neoplasm of left breast in fem rgey, estrogen receptor positive, unspecified site of breast (HRC) documented in this encounter Care Teams Foam Gun Operator Relationship Specialty Start Date End Date Elyse Paredes MD PCP - General Family Practice 03/19/17 [address] [place], [place] [id number] documented as of this encounter
--- OUTSIDE RECORDS SUMMARY | 2022-07-02 13:55 | XMS_ITS | Encounter Summary ---
:1950 Author Organization [employer] Address [address] [place] [address] Care Team Providers Name Role Phone Elyse Paredes MD Primary Care Provider Reason for Referral Therapies (Routine) - Closed Specialty Diagnoses / Procedures Referred By Contact Refer red To Contact Diagnoses Malignant neoplasm of left breast in female, estrogen receptor positive, unspecified site of breast (HRC) S/P lumpectomy, left breast Maryellen Beaulieu MD [address] [facility] [place] [address] Referral ID Status Reason Start Date Expiration Date Visits Requ ested Visits Authorized [id number] Closed 09/30/2018 11/29/2018 1 1 Scheduling Instructions Your provider has recommended an appoint ment with a [facility] Lymphedema Therapist. Please stop at the clinic check out desk for assistance with scheduling or if you prefer to call for your appointment you may call [facility]patient Rehabilitation at [phone]. HANDISING SPECIALIST Reason for Visit Reason Comments POST-OP,EXAM 09/16 left lumpectomy with se ntinel node biopsy, IDC/DCIS Encounter Details Date Type Department Care Team Description 09/30/2018 Office Visit [facility] Maryellen Beaulieu MD Malignant neoplasm of left breast in fem grey, estrogen receptor positive, unspecified site of breast (HRC) (Primary Dx); Center [address] S/P lumpectomy, left breast [address] [place] [address] [place], [place] [phone] [id number] Social History Tobacco Use Types Packs/Day Years Used Date Smoking Tobacco: Former Cigarettes Quit : 08/02/1981 Smokeless Tobacco: Never Alcohol Use Standard Drinks/Week Comments No 0 (1 standard drink = 0.6 oz pure alcoho l) Sex Assigned at Date Recorded Not on file documented as of this encounter Last Filed Vital Signs Vital Sign Reading Time Taken Comments Blood Pressure 128/68 09/30/2018 9:40 AM MERCHANDISING SPECIALIST Pulse 66 09/30/2018 9:40 AM MERCHANDISING SPECIALIST Temperature 37.1 ??C (98.7 ??F) 09/30/2018 9:40 AM MERCHANDISING SPECIALIST Respiratory Rate - - Oxygen Saturation - - Inhaled Oxygen Concentration - - Weight - - Height - - Body Mass Index - - documented in this encounter Patient Instructions Patient InstructionsLeena Callaway RN - 09/30/2018 9:45 AM CST Marci Diaz, It was a pleasure to meet with you today for your post-operative visit following your 09/16/18 left breast lumpectomy and sentinel node biopsy with final pathology of invasive ductal carcinoma and 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 An appointment has been scheduled with the oncologist, Dr. Madrid today at 10:20 at the [facility] [place]. If you have any questions or need to change your appointment please contact them at [phone]. Dr. Beaulieu would like you to meet with the Occupational Therapist to discuss lymphedema risk prevention. Please call [facility] Out[facility] [place] at [phone] to schedule an appointment. Please schedule a 6 month follow up appointment with Dr. Beaulieu. You may schedule today or call [phone] to schedule. There is glue covering your incision. It will fall off on its own. Do not remove it. . Expect some swelling and bruising. This should self-resolve. No bathing, swimming or hot tubs for 2 weeks. After 2 weeks you may gently massage the incision sites. This will soften scar formation and reduce swelling. Please call if you notice any signs of infection such as increased redness, pain, pus, fever or if you have any other concerns about your incision. Continue to do the Exercises after Breast Cancer Surgery, found in your Discharge Instruction Book, until you have full movement of your arm and shoulder. You are invited to attend the Breast Cancer Support Group. We meet on the wednesday of the month from 6:00 - 7:30 pm at the [facility], [address] [place] [address], in the 4th floor Neurology waiting area. Free parking is available, no registration necessary. Please [phone] for more information. Contact the [facility] Nurse Practitioner ([phone]) or the nurse ([phone]) Wednesday through Wednesday 8-4 pm with any concerns or questions regarding your incision. After hours contact the Nurse Careline at ([phone]). Thank you for allowing us to participate in your care. Maryellen Beaulieu MD HANDISING SPECIALIST documented in this encounter Progress Notes Maryellen Beaulieu MD - 09/30/2018 9:45 AM CST 09/30/2018 S: The patient is a 68 y.o. female with breast cancer s/p partial mastectomy. Final pathology is noted below. She is doing well with little discomfort. She is considering moving to [place] for mcc (she is from there originally). Breast cancer summary - Diagnosed: Routine screening mammogram, July 2018 - Side: Left - Mammogram and ultrasound: Estimated size of 0.6cm - Needle biopsy pathology: Invasive ductal carcinoma, grade 2 with associated DCIS - Hormone receptors: estrogen high positive, progesterone positive, and her-2-sally negative - Estimated clinical stage: cT1 - Surgical procedure: partial mastectomy, sentinel lymph node biopsy, September 2018 - Final surgical pathology: IDC 1.2cm. Margins are all negative and greater than 0.5cm. Four sentinel lymph nodes negative for cancer. Associated DCIS and ALH. pT1cN0 O: Vitals: 09/30/18 0940 BP: 128/68 Pulse: 66 Temp: 98.7 ??F (37.1 ??C) Physical Exam: General: NAD. Alert and oriented x3. Chest: Incisions c/d/i. Mild bruising. Arms: No lymphedema bilaterally A/P: The patient is a 68 y.o. female with breast cancer s/p partial mastectomy - Doing well - Pathology report reviewed and copy given to patient - Discussed routine post-operative care - OT consult to discuss prevention of lymphedema - Follow up with oncology to discuss adjuvant treatments - Follow up with me in 6 months Maryellen Beaulieu MD 09/30/2018, 11:58 AM HANDISING SPECIALIST documented in this encounter Plan of Treatment Upcoming Encounters Date Type Specialty Care Team Description 08/13/2022 Appointment Radiology Denise Aguirre, INSTRUCTION LIBRARIAN, SENIOR SALES CONSULTANT [address] [place], [place] [address] (Wo rk) 08/13/2022 Appointment Hematology and Oncology Denise Aguirre APRN, SENIOR SALES CONSULTANT [address] [place], [place] [address] (Wo rk) Scheduled Referrals [...] unspecified site of breast (HRC) - Primary S/P lumpectomy, left breast Other postprocedural status documented in this encounter Care Teams Animal Attendants And Trainers Relationship Specialty Start Date End Date Elyse Paredes MD PCP - General Family Practice 03/19/17 [address] [place] [address] documented as of this encounter
--- OUTSIDE RECORDS SUMMARY | 2022-07-02 13:55 | XMS_ITS | Encounter Summary ---
:1950 Author Organization [employer] Address [address] [place] [address] Care Team Providers Name Role Phone Elyse Paredes MD Primary Care Provider Reason for Visit Reason Onset Date Comments Refill 09/19/2018 HUMALOG Encounter Details Date Type Department Care Team Description 09/19/2018 Refill Specialty Center [address] Fatmata Maddox MD Refill (HUMALOG) Endocrinology Clinic [facility] [address] [place] [address] [place] [address] [phone] (Wo rk) Social History Tobacco Use Types Packs/Day Years Used Date Smoking Tobacco: Former Cigarettes Quit : 08/02/1981 Smokeless Tobacco: Never Alcohol Use Standard Drinks/Week Comments No 0 (1 standard drink = 0.6 oz pure alcoho l) Sex Assigned at Date Recorded Not on file documented as of this encounter Nursing Notes Yosi Greco RN - 09/20/2018 2:45 PM CST Completed per Physician Order. Yosi Greco RN LY LAWYER Interface, Out Surescripts Prov Query - 09/19/2018 1:55 PM CST insulin lispro, human, (HUMALOG, ADMELOG) 100 UNIT/ML injection pen Diabetes - Insulin -> The requested medication was previously set to Historical. -> HBA1C is abnormal (8.2 % is greater than 7.9 %) -> Refill x 3 months (until due for a(n) HBA1C check) -> Calculate quantity and refills manually. They could not be estimated due to missing or unreadable information. Last qualifying visit: 08/09/2018 (in Endocrinology with TAWANDA BARNARD) Next scheduled visit: 11/29/2018 (in Endocrinology with TAWANDA BARNARD) Last ordered by FATMATA MADDOX: 02/17/2018 (214 days ago as Historical on 02/17/2018 by JEWEL FRIED), Sig: use 4-5 units with meals. may sub admelog/humalog/novolog based on insurance (unchanged) HBA1C: 8.2 % on 08/09/2018 Powered by [employer], Reference: [id number], 09/19/2018 1:55:03 PM FAMILY LAWYER, Pool: [facility]AN [facility] [employer] TEAM ([id number]) LY LAWYER Afsaneh Osborne - 09/19/2018 12:24 PM CST Last refilled: [id number] Dispense amount of last refill: 30 LY LAWYER documented in this encounter Plan of Treatment Upcoming Encounters Date Type Specialty Care Team Description 08/13/2022 Appointment Radiology Denise Aguirre, SECURITIES ATTORNEY, BANQUET LEAD [address] [place], [place] [address] (Wo rk) 08/13/2022 Appointment Hematology and Oncology Denise Aguirre, GRIFFIN, BANQUET LEAD [address] [place], [place] [address] (Wo rk) documented as [...] Primary documented in this encounter Care Teams Conciliator Relationship Specialty Start Date End Date Elyse Paredes MD PCP - General Family Practice 03/19/17 [address] [place] [address] documented as of this encounter
--- OUTSIDE RECORDS SUMMARY | 2022-07-02 13:55 | XMS_ITS | Encounter Summary ---
:1950 Author Organization [employer] Address [address] [place] [address] Care Team Providers Name Role Phone Elyse [...] Team Description 08/13/2022 Appointment Radiology Denise Aguirre, OPTICAL EFFECTS LINE UP PERSON, CEO NA [address] [place], [place] [address] (Wo rk) 08/13/2022 Appointment Hematology and Oncology Denise Aguirre APRN, CEO NA [address] [place], [place] [address] (Wo rk) documented as [...] on filedocumented in this encounter Care Teams Api Product Manager Relationship Specialty Start Date End Date Elyse Paredes MD PCP - General Family Practice 03/19/17 [address] [place] [address] documented as of this encounter
--- OUTSIDE RECORDS SUMMARY | 2022-07-02 13:55 | XMS_ITS | Encounter Summary ---
:1950 Author Organization [employer] Address [address] [place] [address] Care Team Providers Name Role Phone Elyse [...] Expiration Date Visits Requ ested Visits Authorized [id number] 1 1 Encounter Details Date Type Department Care Team Description 09/16/2018 Anesthesia Event RH Operating Room Andrew Bo MD [address] [place] [address] [address] [facility] [address] [place] [address] [place] [address] Anesthesia Record Procedure Summary Procedure Name Responsible Anesthesia Start Anesthesia Stop Anesthesiologist Time Time LEFT PARTIAL Andrew Bo MD 09/16/18 1229 09/16/18 1353 MASTECTOMY WITH RADIOACTIVE SEED LOCALIZATION & LEFT SENTINEL LYMPH NODE BIOPSY (Left) Events Date Time Event Comment 09/16/2018 1229 1229 An Start 1232 An Start Data 1234 MD/DO Present 1251 An Local Anesthetic By Surgeon 1251 an harrison now Incision 1328 MD/DO Present 1346 an stop data 1353 Care Handoff Note I discussed wi th the receiving nurse and we: 1) Ident ified the patient, hansen family member(s) or patient surrogate 2) Identified th e responsible practitioner 3) Reviewed the pertinent medical history 4) Discussed the surgical/procedu re course 5) Reviewed intra-op anesthe kemi management and issues during an esthesia 6) Set expectations for the post-procedure period 7) Allowe d opportunity for questions and ac knowledgement of understanding of report Electronically signed by Joelle Ford APRN, COLLATOR 1352 An Stop Care transferred . Name Total midazolam 2 mg/2 mL injection (aka VERSED) 2 mg lidocaine 2% PF injection aka (XYLOCAINE) 40 mg propofol 10 mg/mL for procedural sedation (aka diPRIva n) 806.27 mg ondansetron injection (aka ZOFRAN) 4 mg ceFAZolin (ANCEF) 2 g in dextrose 50 mL IVPB 2 g ceFAZolin (ANCEF) 1 g in sodium chloride 0.9 % 50 mL I VPB 1 g lactated ringers infusion 600 mL Agents Name O2 Blood No blood administrations on file. Lines, Drains, and Airways Type Details Placement Removal Peripheral IV Placement Date: 09/16/18 1123 by 09/16/18 1455 b y 09/16/18; Placement Thanh Thomas RN Swanson, S hane L, RN Time: 1123; Pre-existing: No; Inserted by?: RN; Size (Gauge): 20 G; Orientation: Right; Site Prep: ChloraPrep; Insertion attempts: 1; Blood draw with insertion?: no; Patient Tolerance: Tolerated well; Met Standard Sterile Barrier Technique: Met Standard Sterile Barrier Technique; Removal Date: 09/16/18; Removal Time: 1455; Removal Reason: Per Protocol; Catheter Tip: Intact Wound 09/16/18; 1331; No; 09/16/18 1331 by 09/16/18 13 34 by Other (Comment) Randee Joseph Zenisek, The resa L RN (INCISION); Breast; RN Left; 09/16/18; 1334 Incision/Surgical Site 09/16/18; 1335; #1; 09/16/18 1335 by 08/20 1531 by Jayashree, No; Breast; Left; Randee Joseph, Hillu e 09/30/18; 1531 RN documented in this encounter Social History Tobacco Use Types Packs/Day Years Used Date Smoking Tobacco: Former Cigarettes Quit : 08/02/1981 Smokeless Tobacco: Never Alcohol Use Standard Drinks/Week Comments No 0 (1 standard drink = 0.6 oz pure alcoho l) Sex Assigned at Date Recorded Not on file documented as of this encounter Miscellaneous Notes Anesthesia Postprocedure Evaluation - Andrew Bo MD - 09/16/2018 2:[address] [facility] Anesthesia Post-op Note Patient: Marci Diaz Post-Op Diagnosis: Malignant neoplasm of left breast in female, estrogen receptor positive, unspecified site of breast (hrc) Procedure Performed: Procedure(s): LEFT PARTIAL MASTECTOMY WITH RADIOACTIVE SEED LOCALIZATION & LEFT SENTINEL LYMPH NODE BIOPSY Anesthesia Type: MAC Post-op vital signs: BP 135/68 Pulse 65 Temp 97.4 ??F (36.3 ??C) (Temporal Artery) Resp 16 Ht 5' 2 (1.575 m) Wt 131.1 kg (289 lb) Comment: PER PT SpO2 96% BMI 52.86 kg/m?? Pain Score: Presence Of Pain: denies Preferred Pain Scale: word (verbal rating pain scale) Post-op assessment: No anesthesia complication. Patient location: Phase 2 Airway Status: Patent Cardiovascular function: Satisfactory Hydration status: Satisfactory PONV: None Level of Consciousness: Awake Fully Participates Postop Assessment: Patient tolerated procedure well. Electronically signed by: Andrew Bo MD 09/16/2018 2:11 PM TED CIRCUIT BOARD PANELS DEBURRER Anesthesia Preprocedure Evaluation - Andrew Bo MD - 09/16/2018 11:[address] [facility] Anesthesia Pre-op Evaluation Procedure: Procedure(s): LEFT PARTIAL MASTECTOMY WITH RADIOACTIVE SEED LOCALIZATION & LEFT SENTINEL LYMPH NODE BIOPSY HPI: 68 y.o. old female with Malignant neoplasm of left breast in female, estrogen receptor positive, unspecified site of breast (hrc) NPO Status: Last Fluid Intake Date: 09/15/18 Last Food Intake Date: 09/15/18 Allergies Allergen Reactions ??? Erythromycin Rash ??? Lisinopril Other, see comments Dry cough ??? Metformin Other, see comments and Nausea And Vomiting diarrhea Past Medical History: Diagnosis Date ??? Uncontrolled type 2 diabetes mellitus, with long-term current use of insulin (HRC) 03/19/2017 Patient Active Problem List Diagnosis ??? Uncontrolled [...] Diabetes Education ??? 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 Malignant neoplasm of left breast in female, estrogen receptor positive (HRC) Past Surgical History: Procedure Laterality Date ??? AORTIC VALVE REPLACEMENT 07/06/2017 ??? KNEE REPLACEMENT Bilateral one year apart about ten and eleven years ago Outpatient Medications Marked as Taking for the 09/16/18 encounter (Hospital Encounter) Medication Sig Dispense Refill ??? chlorthalidone (HYGROTON) 25 MG tablet Take 1 Tablet by mouth daily. 30 Tablet 11 ??? famotidine (PEPCID) 10 MG tablet Take 10 mg by mouth. ??? insulin glargine (BASAGLAR) 100 UNIT/ML KWIKPEN 60 units in AM ( give in 2 separate injections of 30 units at the same time) 30 mL 11 ??? insulin lispro, human, (HUMALOG, ADMELOG) 100 UNIT/ML injection pen Use 4-5 units with meals. May sub Admelog/Humalog/Novolog based on insurance 16.2 mL 3 ??? losartan (COZAAR) 50 MG tablet ??? metoprolol succinate (TOPROL XL) 25 MG 24 hour release tablet Take 1 Tablet by mouth daily. 90 Tablet 3 ??? rosuvastatin (CRESTOR) 10 MG tablet Take 1 Tab by mouth daily. 90 Tab 3 ??? sertraline (ZOLOFT) 100 MG tablet Take 1/2 tab daily Current Facility-Administered Medications Medication Dose Route Frequency ??? ceFAZolin (ANCEF) 1 g in sodium chloride 0.9 % 50 mL IVPB 1 g Intravenous Once (Non-Scheduled) ??? ceFAZolin (ANCEF) 2 g in dextrose 50 mL IVPB 2 g Intravenous Once (Non-Scheduled) ??? lactated ringers infusion Intravenous Continuous Labs: Lab Results Component Value Date/Time SODIUM 141 03/19/2017 01:51 PM K 4.0 03/19/2017 01:51 PM CHLORIDE 105 03/19/2017 01:51 PM CO2 26 03/19/2017 01:51 PM BUN 21 03/19/2017 01:51 PM CREATININE 0.98 03/19/2017 01:51 PM GLUCOSE 105 03/19/2017 01:51 PM No results found for: WBC, HGB, HCT, PLTS No results found for: INR No results found for: HCGQUANT Urine : Urine : Blood Bank: No results found for: ABORH, ABSCR EKG: No results found for this or any previous visit. Physical Exam: BP (!) 149/80 Pulse 87 Temp (!) 96.8 ??F (36 ??C) (Temporal Artery) Resp 16 SpO2 94% Assessment/Plan: Review of Systems Patient does not have GERD. Patient is not a smoker. The patient denies alcohol use. Patient denies any recent URI. History of PONV: No. History of motion sickness: No. Patient denies any personal or family history of anesthesia complications (PONV). Exam Mental Status: Alert and oriented. Mallampati score: I (One). Mouth opening: Normal Thyromental Distance: > 3 finger breadths and Normal Neck Extension: Full Neck Circumference > 40 cm?: No Current airway assessment:Normal Dentition: Normal. Cardiac Exam: Regular rate and rhythm. Respiratory Exam: Breath sounds clear to auscultation Assessment ASA Status: 3 . Plan Anesthesia type: MAC Induction: Maintenance: PONV Risk Score Peds:0 PONV Risk Score Adult: 2 Anesthetic plan, risks, benefits and alternatives discussed with: Patient H&P Reviewed and Patient examined, no change observed IV access Antibiotics per surgery Electronically signed by: Andrew Bo MD 09/16/2018 11:17 AM TED CIRCUIT BOARD PANELS DEBURRER documented in this encounter Plan of Treatment Upcoming Encounters Date Type Specialty Care Team Description 08/13/2022 Appointment Radiology Denise Aguirre, REGULATED PROGRAM MANAGER, ARTIST'S MODEL [address] [place] [address] (Tonio sorenson) 08/13/2022 Appointment Hematology and Oncology Denise Aguirre, REGULATED PROGRAM MANAGER, ARTIST'S MODEL [address] [place] [address] (Tonio sorenson) documented as of this [...] Diagnoses Not on filedocumented in this encounter Administered Medications Inactive Administered Medications - up to 3 most recent administrations Medication Order MAR Action Action Date Dose Rate Site ceFAZolin (ANCEF) 1 g in sodium Started 09/16/2018 12:36 PM PRINTED CIRCUIT BOARD PANELS DEBURRER 1 g chloride 0.9 % 50 mL IVPB 1 g, Intravenous, Administer over 30 Minutes, ONCE (NON-SCHEDULED), Starting on Wed09/16/18 at 1056, For 1 dose, For patient weight greater than or equal to 120kg , PRE-OP ANTIBIOTIC, Total dose equals 3 grams., Pre-op ceFAZolin (ANCEF) 2 g in dextrose 50 mL IVPB Given 09/16/2018 12:36 PM PRINTED CIRCUIT BOARD PANELS DEBURRER 2 g 2 g, Intravenous, Administer over 30 Minutes, ONCE (NON-SCHEDULED), Starting on Wed09/16/18 at 1050, For 1 dose, For patient weight greater than or equal to 120kg , PRE-OP ANTIBIOTIC, Total dose equals 3 grams., Pre-op lidocaine 2% PF (XYLOCAINE) injection Given 09/16/2018 12:37 PM PRINTED CIRCUIT BOARD PANELS DEBURRER 40 mg Starting on Wed09/16/18 at 1237, Until Wed09/16/18 at 1353 midazolam (VERSED) injection Given 09/16/2018 12:45 PM PRINTED CIRCUIT BOARD PANELS DEBURRER 1 mg Starting on Wed09/16/18 at 1229, Until Wed09/16/18 at 1353 Given 09/16/2018 12:29 PM PRINTED CIRCUIT BOARD PANELS DEBURRER 1 mg ondansetron (ZOFRAN) injection Given 09/16/2018 1:36 PM PRINTED CIRCUIT BOARD PANELS DEBURRER 4 mg Starting on Wed09/16/18 at 1336, Until Wed09/16/18 at 1353 propofol (aka diPRIvan) Rate/Dose 09/16/2018 1:36 50 mcg/kg/min 39.3 3 injection Change PM PRINTED CIRCUIT BOARD PANELS DEBURRER mL/hr Intravenous, Starting on Wed09/16/18 at 1237 Started 09/16/2018 12:37 PM PRINTED CIRCUIT BOARD PANELS DEBURRER 100 mcg/kg/min 78.66 mL/hr documented in this encounter Care Teams Green Building Engineer Relationship Specialty Start Date End Date Elyse Paredes MD PCP - General Family Practice 03/19/17 [address] [id number] documented as of this encounter
--- OUTSIDE RECORDS SUMMARY | 2022-07-02 13:55 | XMS_ITS | Encounter Summary ---
:1950 Author Organization [facility] Address [address] [place] [address] Care Team Providers Name Role Phone Elyse [...] Expiration Date Visits Requ ested Visits Authorized [id number] 1 1 Encounter Details Date Type Department Care Team Description 09/16/2018 Surgery RH Operating Room Maryellen Montes MD LEFT PARTIAL MASTECTOMY [address] CREST [place] [address] BLVD LOCALIZATION & LEFT [phone] [place], [place] [address] BIOPSY Social History Tobacco Use Types Packs/Day Years Used Date Smoking Tobacco: Former Cigarettes Quit : 08/02/1981 Smokeless Tobacco: Never Alcohol Use Standard Drinks/Week Comments No 0 (1 standard drink = 0.6 oz pure alcoho l) Sex Assigned at Date Recorded Not on file documented as of this encounter Last Filed Vital Signs Vital Sign Reading Time Taken Comments Blood Pressure 134/72 09/16/2018 1:50 PM RELIEF MANAGER Pulse 70 09/16/2018 1:50 PM RELIEF MANAGER Temperature 36.3 ??C (97.4 ??F) 09/16/2018 1:50 PM RELIEF MANAGER Respiratory Rate 16 09/16/2018 1:50 PM RELIEF MANAGER Oxygen Saturation 97% 09/16/2018 1:50 PM RELIEF MANAGER Inhaled Oxygen Concentration - - Weight 131.1 kg (289 lb) 09/16/2018 11:15 AM RELIEF MANAGER PER PT Height 157.5 cm (5' 2) 09/16/2018 11:15 AM RELIEF MANAGER Body Mass Index 52.86 09/16/2018 11:15 AM RELIEF MANAGER documented in this encounter Discharge Instructions Discharge InstructionsKeaton Drake RN - 09/16/2018 2:30 PM CST Contact Information If it is after hours call the Careline at [phone]. [facility], Anesthesia Today you received General/Minor Sedation: Rest [...] new medications ?? Severe pain ?? Swelling EF MANAGER documented in this encounter Medications at Time of Discharge Medication Sig Dispensed Refills Start Date End Date ACCU-CHEK GERALD PLUS Check fasting / before 350 Strip [...] diabetes mellitus type 2 without complications, unspecified senior living insulin use status rosuvastatin (CRESTOR) Take 1 [...] diabetes mellitus type 2 without complications, unspecified senior living insulin use status metFORMIN XR Take 4 [...] diabetes mellitus type 2 without complications, unspecified senior living insulin use status warfarin (COUMADIN) 2.5 TAKE [...] visit. Maryellen Montes MD 09/20/2018, 10:14 AM EF MANAGER documented in this encounter Procedure Notes Maryellen [...] procedure.?? Maryellen Montes MD 09/16/2018, 1:56 PM EF MANAGER Maryellen Montes MD - 09/16/2018 1:42 PM CST Brief Operative Note Date of Procedure: 09/16/2018 Surgeon: Maryellen Montes Coater Smoking Pipe: none Pre-operative Diagnosis: Left breast cancer Post-operative [...] follow. Maryellen Montes MD 09/16/2018, 1:42 PM EF MANAGER documented in this encounter Plan of Treatment Upcoming Encounters Date Type Specialty Care Team Description 08/13/2022 Appointment Radiology Denise Aguirre APRN, AIRCRAFT ENGINE CYLINDER MECHANIC [address] [place], [place] [address] (Wo rk) 08/13/2022 Appointment Hematology and Oncology Denise Aguirre APRN, AIRCRAFT ENGINE CYLINDER MECHANIC [address] [place], [place] [address] (Wo rk) documented as of this encounter Goals Goal Patient Goal Associated Recent Patient-Stated? Author Type Problems Progress Being active Diabetes Diabetes No Tere Education Education Tanner gN, ARMAND, CDE Note: Formatting of this note [...] Monitoring my Diabetes Education Diabetes Education Tanner Loredo diabetes RD, CDE Note: Formatting of this note might be d ifferent from the original. Monitoring My Diabetes: Continue to chec k blood sugars before each meal and bedtime. documented as of this encounter Procedures Procedure Name Priority Date/Time Associated Diagnosis Comme nts PARTIAL MASTECTOMY 09/16/2018 12:23 Malignant neoplasm WITH RADIOACTIVE SEED PM RELIEF MANAGER of left breast in LOCALIZATION & female, estrogen SENTINEL LYMPH NODE receptor positive, BIOPSY unspecified site of breast (HRC) GLUCOSE, WHOLE BLOOD Routine 09/16/2018 11:17 Res ults for this POCT AM RELIEF MANAGER procedure are i n the results section. SURGICAL PATH Routine 09/16/2018 6:00 AM Results for this RELIEF MANAGER procedure are i n the results section. documented in this encounter Results Glucose, Whole Blood POC (09/16/2018 11:17 AM RELIEF MANAGER) athologist Signature Glucose, Whole 166 70 - 180 [facility] Blood mg/dl [facility] Comment: Point of Care Testing Notified Specimen Anatomical Collection Method Collection Time Receive d Time (Source) Location / / Volume Laterality 09/16/2018 11:17 09/16/2018 AM RELIEF MANAGER 11:25 AM RELIEF MANAGER Maryellen Montes MD LAB_1 Performing Organization Address City/State/[place] [address] Surgical Path (09/16/2018 6:00 AM RELIEF MANAGER) [facility] Method Time Signature Histology (NOTE) [facility] Final Report [facility] Patient Name: IRVIN HOFFMAN Taken: 09/16/2018 Received: 09/16/2018 Reported: 09/19/2018 Physician(s): MARYELLEN MONTES ? Final Pathologic Diagnosis A. Left breast, partial mastectomy: ?- Invasive ductal carcinoma, Oli grade 2 of 3, 1.2 cm ?- [...] ?Histologic type: Invasive ductal carcinoma ?Histologic Grade (Onsted): ??II of III, Onsted score 6 of 9 (nuclear grade 2, [...] below (please refer to case number [id number] ? for complete report). ER: High positive DC: Positive HER-2/sally: Negative (score 0-1+) Pathologic stage [...] 16, 2018 Intraoperative Consultation: Performed Tissue Submission: Facing Baster Jumpbasting sections (including entire tumor) are submitted in [...] A6 and C7. 09/19/2018 Stacie Jha MD [facility] Department of Pathology [address] [place] [address] ??[id number] Specimen Anatomical Collection Method Collection Time Receive d Time (Source) Location / / Volume Laterality Breast 09/16/2018 6:00 AM 9 1:10 RELIEF MANAGER PM RELIEF MANAGER LYMPH NODE BIOPSY 09/16/2018 6:00 AM 09/02 1:10 SPECIMEN / Unknown RELIEF MANAGER PM RELIEF MANAGER Breast 09/16/2018 6:00 AM 9 1:10 RELIEF MANAGER PM RELIEF MANAGER Maryellen Montes MD LAB_1 Performing Organization Address City/State/ZIP Code Phon e Number [address] [address] documented in this encounter Visit Diagnoses Diagnosis Malignant neoplasm of left breast in fem grey, estrogen receptor positive, unspecified site of breast (HRC) Malignant neoplasm of left breast in fem grey, estrogen receptor positive (HRC) Malignant neoplasm of left breast in fem grey, estrogen receptor positive, unspecified site of breast (HRC) documented in this encounter Admitting Diagnoses Diagnosis Malignant neoplasm of left breast in fem grey, estrogen receptor positive (HRC) documented in this encounter Administered Medications Inactive Administered Medications - up to 3 most recent administrations Medication Order MAR Action Action Date Dose Rate Site bupivacaine (PF) (aka Given 09/16/2018 1:19 PM 25 mL Left Breast Fold SENSORCAINE) 0.5% RELIEF MANAGER injection ONCE PRN, Starting on Wed09/16/18 at [...] (SUBLIMAZE) injection 25-50 mcg 25-50 mcg, Intravenous, [id number], Pain, Starting on Wed09/16/18 at 1402, Until [...] lactated ringers infusion Started 09/16/2018 11:25 AM RELIEF MANAGER 30 mL/hr Intravenous, at 30 mL/hr, CONTINUOUS, Starting on Wed09/16/18 at 1115, Pre-op lidocaine-epinephrine 1 Given 09/16/2018 1:19 PM 25 mL Left Breast Fold %-[id number] injection RELIEF MANAGER ONCE PRN, Starting on Wed09/16/18 at 1319, Until Wed09/16/18 at 1731, Intra-op methylene blue (PROVAY BLUE) Given 09/16/2018 2:50 PM RELIEF MANAGER 1 mL Left Breast Fold 0.5% (5 [...] Recently Administered Medications Times are shown in RELIEF MANAGER. Scheduled Medication Order 09/14/2018 09/15/2018 09/16/2018 ceFAZolin [...] RN)1353 (Infused - Provider: Herlinda Ford APRN, COMPUTER MECHANIC) Intravenous, at 30 mL/hr, CONTINUOUS, Starting Wed09/16/18 [...] (SUBLIMAZE) injection 25-50 mcg 25-50 mcg, Intravenous, [id number], Pain, Starting Wed09/16/18 at 1402, 25 mcg [...] sheyla l anesthesia, PACU (only) lidocaine-epinephrine 1 %-1:[id number] injection 1319 (Given - Provider: Maryellen Montes [...] Intravenous, Q6H PRN, Nausea, Vom iting, Starting Wed09/16/18 at 1402
Give 1st line medications then [...]
Post-op documented in this encounter Care Teams Mixer And Scaler Relationship Specialty Start Date End Date Elyse Paredes MD PCP - General Family Practice 03/19/17 [address] [place] [address] documented as of this encounter
--- OUTSIDE RECORDS SUMMARY | 2022-07-02 13:55 | XMS_ITS | Encounter Summary ---
:1950 Author Organization [employer] Address [address] [place] [address] Care Team Providers Name Role Phone Elyse Paredes MD Primary Care Provider Reason for Visit Reason Onset Date Comments ERRONEOUS ENTRY 09/15/2018 TRULICITY Encounter Details Date Type Department Care Team Description 09/15/2018 Refill Specialty Center 401 Miya Shin MD ERRONEOUS ENTRY Endocrinology Clinic 111 [facility] [address] [place] [address] [place] [address] [phone] (Wo rk) Social History Tobacco Use Types Packs/Day Years Used Date Smoking Tobacco: Former Cigarettes Quit : 08/02/1981 Smokeless Tobacco: Never Alcohol Use Standard Drinks/Week Comments No 0 (1 standard drink = 0.6 oz pure alcoho l) Sex Assigned at Date Recorded Not on file documented as of this encounter Nursing Notes Yosi Greco RN - 09/15/2018 3:29 PM CST Completed per Physician Order. Yosi Greco RN TING MATERIAL REMOVER Jacquelyn Matos RN - 09/15/2018 3:01 PM CST Last seen by Dr. Salas. Routing to her care team to address. Jacquelyn Matos RN 09/15/2018, 3:01 PM TING MATERIAL REMOVER Interface, Out Element Robot Prov Query - 09/15/2018 1:05 PM CST dulaglutide (TRULICITY) 1.5 MG/0.5ML injeciton pen Diabetes - Glucagon-Like Peptide 1 Agonist -> The patient is requesting a renewal from a different pharmacy. -> Due to an unreadable sig, manually ensure the patient is due for a renewal. -> The requested sig has changed from the last order. -> HBA1C is abnormal (8.2 % is greater than 7.9 %) -> Refill x 3 months (until due for a(n) HBA1C check) -> Calculate quantity and refills manually. They could not be estimated due to missing or unreadable information. Last qualifying visit: 08/09/2018 (in Endocrinology with TAWANDA SALAS) Next scheduled visit: 11/29/2018 (in Endocrinology with TAWANDA SALAS) Last ordered by FARNAZ ORTEGA J: 08/01/2018 (45 days ago) QTY: 6, Refills: 4, Sig: inject 0.5ml under the skin once every week (changed) HBA1C: 8.2 % on 08/09/2018 Powered by [employer], Reference: [id number], 09/15/2018 1:05:11 PM Carlos ARRIAZA: ENDO REFILL PAYTON ([id number]) Afsaneh Little - 09/15/2018 1:04 PM CST Last refilled: [id number] Dispense amount of last refill: 6 TING MATERIAL REMOVER documented in this encounter Plan of Treatment Upcoming Encounters Date Type Specialty Care Team Description 08/13/2022 Appointment Radiology Denise Aguirre, INSURANCE DEFENSE PARALEGAL, VICE SQUAD POLICE OFFICER [address] [place], [place] [address] (Wo rk) 08/13/2022 Appointment Hematology and Oncology Denise Aguirre, INSURANCE DEFENSE PARALEGAL, VICE SQUAD POLICE OFFICER [address] [place], [place] [address] (Wo rk) documented as [...] insulin documented in this encounter Care Teams Casey Saw Operator Relationship Specialty Start Date End Date Elyse Paredes MD PCP - General Family Practice 03/19/[address] [address] documented as of this encounter
--- OUTSIDE RECORDS SUMMARY | 2022-07-02 13:55 | XMS_ITS | Encounter Summary ---
:1950 Author Organization [facility] Address [address] [place] [address] Care Team Providers Name Role Phone Elyse Paredes MD Primary Care Provider Reason for Visit Reason Comments MEDICATION CHECK Encounter Details Date Type Department Care Team Description 09/23/2018 Telephone Specialty Center 401 Manasa Salas MD MEDICATION CHECK Endocrinology Clinic [address] [place] [address] [place] [address] [phone] Social History Tobacco Use Types Packs/Day Years Used Date Smoking Tobacco: Former Cigarettes Quit : 08/02/1981 Smokeless Tobacco: Never Alcohol Use Standard Drinks/Week Comments No 0 (1 standard drink = 0.6 oz pure alcoho l) Sex Assigned at Date Recorded Not on file documented as of this encounter Nursing Notes Yosi Greco RN - 09/26/2018 3:39 PM CST Completed per Physician Order. Patient informed.Yosi Greco RN TREATER APPRENTICE Lety Matthews - 09/23/2018 4:26 PM CST Miscellaneous Questions & FYI's [ Appt Center/Magnetic Testing Technician: If this call is after 3 p.m., communicate to patient: If we are not able to get back to you by the end of the day and your symptoms worsen please contact the Careline at [phone] OR at .] Is this a symptom? No What is your question or concern? Patient called regarding Humalog prescription. She states she picked up a refill recently but the instructions and qty dispensed were incorrect. She only received 3 pens of Humalog. The prescription sig states patient takes 6 units at dinner, and may take 4 units if bg >200 at bedtime. However, patient takes Humalog at all meals. Dr. Salas documented that patient's med list stated she was taking insulin at all meals, but she was only taking it once per day. She has never stopped taking the Humalog with all meals, the only change made was adding the 4 units as needed at bedtime. Patient is requesting a new prescription be sent to her pharmacy with the correct sig and qty to be dispensed. She would like a call when this has been done. Have you recently been seen for this? No Is it okay to leave a detailed message on your voicemail? Yes Lety Matthews TREATER APPRENTICE documented in this encounter Plan of Treatment Upcoming Encounters Date Type Specialty Care Team Description 08/13/2022 Appointment Radiology Denise Aguirre, PARTS PROCESSOR, BEZEL CUTTER [address] [place], [place] [address] (Wo rk) 08/13/2022 Appointment Hematology and Oncology Denise Aguirre APRN, BEZEL CUTTER [address] [place], [place] [address] (Wo rk) documented as [...] insulin documented in this encounter Care Teams Cyber Systems Engineer Relationship Specialty Start Date End Date Elyse Paredes MD PCP - General Family Practice 03/19/17 [address] [place] [address] documented as of this encounter
--- OUTSIDE RECORDS SUMMARY | 2022-07-02 13:55 | XMS_ITS | Encounter Summary ---
:1950 Author Organization [employer] Address [address] [place] [address] Care Team Providers Name Role Phone Elyse Paredes MD Primary Care Provider Reason for Visit Reason Comments QUESTIONS, GENERAL Questions regarding diabetes care Encounter Details Date Type Department Care Team Description 10/10/2018 Telephone Specialty Center 401 Manasa Salas, Renuka SCHMITZ, GENERAL Endocrinology Clinic (Questions regarding [address] [facility]. [address] [facility] diabetes care) [place] [address] [place], [place] [phone] [facility] Social History Tobacco Use Types Packs/Day Years Used Date Smoking Tobacco: Former Cigarettes Quit : 08/02/1981 Smokeless Tobacco: Never Alcohol Use Standard Drinks/Week Comments No 0 (1 standard drink = 0.6 oz pure alcoho l) Sex Assigned at Date Recorded Not on file documented as of this encounter Nursing Notes Yosi Greco RN - 10/11/2018 2:29 PM CDT Spoke w/ Jeri WALL at [facility]. It is fine with Dr Salas to have patient use Nirav or dexcom. No other questions.Yosi Greco RN Jimenez Sanchez - 10/10/2018 3:47 PM CDT Miscellaneous Questions & FYI's [ Appt Center/Passenger Car Upholsterer Apprentice: If this call is after 3 p.m., communicate to patient: If we are not able to get back to you by the end of the day and your symptoms worsen please contact the Careline at [phone] OR at .] Is this a symptom? No What is your question or concern? Jeri, Patient's acute care registered nurse at [facility] calling to ask Dr. Salas if there is any reasonthe patient should not be started on the Nirav. She thinks it will be beneficial to the patient since she is testing more often. She is also asking how often the patient should be testing. Jeri can be reached at [phone] if there are any questions. Have you recently been seen for this? No Is it okay to leave a detailed message on your voicemail? Yes Jimenez Sanchez documented in this encounter Plan of Treatment Upcoming Encounters Date Type Specialty Care Team Description 08/13/2022 Appointment Radiology Denise Aguirre, CAR DROPPER, MOBILE DESIGNER [address] [place], [place] [address] (Wo rk) 08/13/2022 Appointment Hematology and Oncology Denise Aguirre, CAR DROPPER, MOBILE DESIGNER [address] [place], [place] [address] (Wo rk) documented as [...] Diabetes Education Diabetes Education No Tanner Carranza, ARMAND, CDE Note: Formatting of this note [...] filedocumented in this encounter Care Teams Manager Float Relationship Specialty Start Date End Date Elyse Paredes MD PCP - General Family Practice 03/19/17 [address] [place] [address] documented as of this encounter
--- OUTSIDE RECORDS SUMMARY | 2022-07-02 13:55 | XMS_ITS | Encounter Summary ---
:1950 Author Organization [employer] Address [address] [place] [address] Care Team Providers Name Role Phone Elyse Paredes MD Primary Care Provider Encounter Details Date Type Department Care Team Description 09/15/2018 Refill Order Specialty Center 401 Miya Shin MD Endocrinology Clinic 111 [facility] [address] [place] [address] [place] [address] [phone] (Wo rk) Social History Tobacco Use Types Packs/Day Years Used Date Smoking Tobacco: Former Cigarettes Quit : 08/02/1981 Smokeless Tobacco: Never Alcohol Use Standard Drinks/Week Comments No 0 (1 standard drink = 0.6 oz pure alcoho l) Sex Assigned at Date Recorded Not on file documented as of this encounter Nursing Notes Interface, Out Surescripts Prov Query - 09/15/2018 1:05 PM CST ORDER THE FOLLOWING: - HEMOGLOBIN A1C: Previously ordered on 07/28/2018 and will on 11/27/2018 SCHEDULE THE FOLLOWING: - HEMOGLOBIN A1C BY: 11/07/2018 (Coming due as of 11/07/2018 for TRULICITY 1.5 MG/0.5ML injeciton pen) - LAST QUALIFYING VISIT IN ENDOCRINOLOGY WITH TAWANDA BARNARD: 08/09/2018 - NEXT SCHEDULED VISIT IN ENDOCRINOLOGY WITH TAWANDA BARNARD: 11/29/2018 - NEXT LAB APPOINTMENT: None Powered by [employer], Reference: [id number], 09/15/2018 1:05:11 PM CONTACT LENS POLISHER, Carlos: MARY YANEZ RN ([id number]) ACT LENS POLISHER documented in this encounter Plan of Treatment Upcoming Encounters Date Type Specialty Care Team Description 08/13/2022 Appointment Radiology Denise Aguirre APRN, MONOTYPE KEYBOARD OPERATOR [address] [place], [place] [address] (Wo rk) 08/13/2022 Appointment Hematology and Oncology Denise Aguirre APRN, MONOTYPE KEYBOARD OPERATOR [address] [place], [place] [address] (Wo rk) documented as [...] medications documented in this encounter Care Teams Assistant Cross Country Coach Relationship Specialty Start Date End Date Elyse Paredes MD PCP - General [facility] 03/19/17 [address] [place] [address] documented as of this encounter
--- OUTSIDE RECORDS SUMMARY | 2022-07-02 13:56 | XMS_ITS | Encounter Summary ---
:1950 Author Organization [employer] Address [address] [place] [address] Care Team Providers Name Role Phone Elyse Paredes MD Primary Care Provider Reason for Referral (Routine) - Incomplete Specialty Diagnoses / Procedures Referred By Contact Refer red To Contact Diagnoses Malignant neoplasm of left breast in female, estrogen receptor positive, unspecified site of breast (HRC) Maryellen Montes MD Procedures Case Request OR - General/Vascular Surg: LEFT PARTIAL MASTECTOMY WITH RADIOACTIVE SEED LOCALIZATION & LEFT SENTINEL LYMPH NODE BIOPSY [address] [place] [address] Referral ID Status Reason Start Date Expiration Date Visits V isits Requested Authorized [id number] Incomplete 08/10/2018 11/09/2019 1 1 RIALS ENGINEER Reason for Visit Reason Comments Consult, New Patient 07/28/18 left IDC/DCIS Encounter Details Date Type Department Care Team Description 08/05/2018 Office Visit [facility] Maryellen Montes MD Malignant neoplasm of Center [address] left breast in female, [address] [facility] [place] [address] [place], [place] positive, unspecified [phone] site of breast (HRC) [phone] (Primary Dx) (Work) Social History Tobacco Use Types Packs/Day Years Used Date Smoking Tobacco: Former Cigarettes Quit : 08/02/1981 Smokeless Tobacco: Never Alcohol Use Standard Drinks/Week Comments No 0 (1 standard drink = 0.6 oz pure alcoho l) Sex Assigned at Date Recorded Not on file documented as of this encounter Last Filed Vital Signs Vital Sign Reading Time Taken Comments Blood Pressure 128/64 08/05/2018 10:58 AM MATERIALS ENGINEER Pulse 86 08/05/2018 10:58 AM MATERIALS ENGINEER Temperature - - Respiratory Rate - - Oxygen Saturation - - Inhaled Oxygen Concentration - - Weight 131.1 kg (289 lb) 08/05/2018 10:58 AM MATERIALS ENGINEER Height 156.8 cm (5' 1.75) 08/05/2018 10:58 AM MATERIALS ENGINEER Body Mass Index 53.29 08/05/2018 10:58 AM MATERIALS ENGINEER documented in this encounter Patient Instructions Patient InstructionsLeena Callaway RN - 08/05/2018 10:45 AM CST Marci Diaz, It was a pleasure to meet with you today to discuss treatment planning for your diagnosis of 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 Being diagnosed with breast cancer is difficult. Our Nurse Practitioner Kirsty or nurse Natalia are available to assist you. Please call Kirsty [phone] or Ladi Fisher at [phone] for guidance. They are available between 8:00 - 4:00 M-F . Please call and let us know when you make a decision about your plan for care. We are happy to care for you here at [facility]. Thank you for allowing us to care for you today. MD Kirsty Glasgow APRN, MANAGER METAL RIALS ENGINEER documented in this encounter Progress Notes Maryellen Montes MD - 08/05/2018 10:45 AM MATERIALS ENGINEER Addended by: MARYELLEN MONTES on: 08/10/2018 09:07 PM Modules accepted: Orders, SmartSet RIALS ENGINEER Maryellen Montes MD - 08/05/2018 10:45 AM CST 08/05/2018 CC: Newly diagnosed breast cancer of the left breast HPI: Marci Diaz is a 68 y.o. female who was referred by Elyse Paredes MD for evaluation of a newly diagnosed breast cancer of the left breast. The patient had routine screening mammogram which noteda new area of concern in the left breast. Ultrasound notes a 0.6cm mass in the left breast at 12:00,zone 2. Biopsy notes invasive ductal carcinoma, grade 2 with associated DCIS. The tumor is estrogen high positive, progesterone positive, and her-2-sally negative. Breast cancer summary - Diagnosed: Routine screening mammogram, July 2018 - Side: Left - Mammogram and ultrasound: Estimated size of 0.6cm - Needle biopsy pathology: Invasive ductal carcinoma, grade 2 with associated DCIS - Hormone receptors: estrogen high positive, progesterone positive, and her-2-sally negative - Estimated clinical stage: cT1 - Surgical procedure: TBD - Final surgical pathology: TBD PMHx/PSHx Past Medical History: Diagnosis Date ??? Uncontrolled type 2 diabetes mellitus, with long-term current use of insulin (HRC) 03/19/2017 Past Surgical History: Procedure Laterality Date ??? AORTIC VALVE REPLACEMENT 07/06/2017 ??? KNEE REPLACEMENT Bilateral one year apart about ten and eleven years ago Allergies Allergies Allergen Reactions ??? Erythromycin Rash ??? Lisinopril Other, see comments Dry cough ??? Metformin Other, see comments and Nausea And Vomiting diarrhea Medications Outpatient Medications as of 08/05/2018: ACCU-CHEK GERALD PLUS test strip Check fasting / before meals, and at bedtime, . Pharmacy dispense brand based on insurance. Disp: 350 Strip Rfl: 6 amiodarone (PACERONE) 200 MG tablet Take 200 mg by mouth daily. Disp: Rfl: aspirin, enteric-coated 81 MG enteric coated tablet Take 1 Tab by mouth daily. Disp: 90 Tab Rfl: 3 B-D UF III MINI PEN NEEDLES 31G X 5 MM needle 4-5 times daily. Disp: 100 Each Rfl: 11 celecoxib (CELEBREX) 200 MG capsule 1 Cap daily. Disp: 90 Cap Rfl: 1 clopidogrel (PLAVIX) 75 MG tablet Take 1 Tab by mouth daily. Disp: 90 Tab Rfl: 3 dulaglutide (TRULICITY) 0.75 MG/0.5ML injection pen Inject 0.5 mL subcutaneously once a week. Disp: 2 mL Rfl: 3 famotidine (PEPCID) 10 MG tablet Take 10 mg by mouth. Note (03/19/2017): Received from: [facility] Received Sig: Take 10 mg by mouth 2 times daily. Disp: Rfl: insulin glargine (BASAGLAR) 100 UNIT/ML KWIKPEN 60 units in AM ( give in 2 separate injections of 30units at the same time) Disp: 30 mL Rfl: 1 insulin lispro, human, (HUMALOG, ADMELOG) 100 UNIT/ML injection pen Use 4-5 units with meals. May sub Admelog/Humalog/Novolog based on insurance Disp: 16.2 mL Rfl: 3 losartan (COZAAR) 50 MG tablet Note (03/19/2017): Received from: External Pharmacy Disp: Rfl: metFORMIN XR (GLUCOPHAGE XR) 500 MG 24 hour release tablet Take 4 Tabs by mouth daily with breakfast. (Patient not taking: Reported on 01/14/2018) Disp: 360 Tab Rfl: 3 metoprolol tartrate (LOPRESSOR) 25 MG tablet Take 25 mg by mouth daily. Disp: Rfl: rosuvastatin (CRESTOR) 10 MG tablet Take 1 Tab by mouth daily. Disp: 90 Tab Rfl: 3 sertraline (ZOLOFT) 100 MG tablet Take 1/2 tab daily Note (03/19/2017): Received from: [facility] Disp: Rfl: TRULICITY 1.5 MG/0.5ML injeciton pen INJECT 0.5ML UNDER THE SKIN ONCE EVERY WEEK Disp: 6 mL Rfl: 4 No current facility-administered medications on file as of 08/05/2018. Family History Family History Problem Relation Age of Onset ??? Cancer, Breast Negative Family History ??? Cancer, Colon Negative Family History ??? Cancer, Lung Negative Family History ??? Cancer, Ovary Negative Family History ??? Cancer, Prostate Negative Family History ??? Cancer, Pancreatic Negative Family History Social History Social History Socioeconomic History ??? Marital [...] non-medical: Not on file Occupational History ??? Not on file Tobacco Use ??? Smoking status: Former Smoker Last attempt to quit: 08/02/1981 Years since quittin.0 ??? Smokeless tobacco: Never Used Substance and Sexual Activity ??? Alcohol use: No ??? Drug use: Not on file ??? Sexual activity: Not on file Other Topics Concern ??? Not on file Social History Narrative ??? Not on file Review of Systems Pertinent positives and negatives in the history of present illness. All other constitutional, HEENT, cardiovascular, respiratory, gastrointestinal, genitourinary, derm, psych, neuro, musculoskeletal, endocrine, and heme systems are negative. Vitals: 08/05/18 1058 BP: 128/64 Pulse: 86 Physical Exam Gen: NAD. Neuro: Alert and oriented x3. Psych: Normal affect. Breast/axillary exam: Bilateral breasts with no palpable masses, no nipple discharge, no nipple changes, no overlying skin changes. No palpable axillary lymphadenopathy bilaterally. Bilateral everted nipples. I have personally reviewed the patient's previous medical records and summarized them in the historyof present illness. I have also personally reviewed the patient's images with radiology. Assessment/Plan: The patient is a 68 y.o. female with a newly diagnosed breast cancer I had a long discussion with the patient regarding her clinical stage I cancer and the recommended management according to NCCN guidelines. I have offered the patient a partial mastectomy with radiation or total mastectomy (unilateral or bilateral, with or without reconstruction). We discussed the need for a sentinel lymph node biopsy and possible axillary lymph node dissection. I have discussed the risks, benefits, and alternatives to these procedures. She understands the risks include but are not limited to numbness, hematoma, seroma, infection, lymphedema, and the potential need for re-excision.She is interested in a partial mastectomy. She has most of her care in the [facility]. She is seeing Dr. Toribio on Wednesday. Over 45 minutes were spent with the patient and over 50% was spent counseling the patient on her treatment options for her newly diagnosed breast cancer. Maryellen Montes MD 08/05/2018, 9:08 PM CC: Elyse Paredes MD RIALS ENGINEER Leena Callaway RN - 08/05/2018 10:45 AM CST Patient here for surgical consult with Dr. Montes to discuss treatment of a left breast invasive ducal carcinoma and ductal carcinoma in situ. Her breast history is as follows: Age at onset of menses: 15 years Number of full term pregnancies: none Age when first child born: na Breast feed: no Hormonal control use: yes for about 25 years LMP: postmenopausal Age at onset of menopause: somewhere between 52 and 57 years of age HRT use: no Length of time used: na Previous breast biopsies or breast surgeries: no History of chest XRT: no Previous genetic testing: no Ashkenazi Quaker: no Leena Callaway RN 08/05/2018, 11:57 AM RIALS ENGINEER documented in this encounter Plan of Treatment Upcoming Encounters Date Type Specialty Care Team Description 08/13/2022 Appointment Radiology Denise Aguirre OVEN BUILDER, MANAGER METAL [address] [place], [place] [address] (Wo rk) 08/13/2022 Appointment Hematology and Oncology Denise Aguirre APRN, MANAGER METAL [address] [place], [place] [address] (Wo rk) documented as [...] Primary documented in this encounter Care Teams Ssis Architect Relationship Specialty Start Date End Date Elyse Paredes MD PCP - General Family Practice 03/19/17 [address] [place] [address] documented as of this encounter
--- OUTSIDE RECORDS SUMMARY | 2022-07-02 13:56 | XMS_ITS | Encounter Summary ---
:1950 Author Organization [employer] Address [address] [place] [address] Care Team Providers Name Role Phone Elyse Paredes MD Primary Care Provider Reason for Visit Reason Onset Date Comments Refill 04/26/2018 basaglar kwikpen/acc u-chek plus test strips Encounter Details Date Type Department Care Team Description 04/26/2018 Refill Specialty Center 401 Fatmata Maddox MD Refill (basaglmt [facility]ocr[facility]ology [facility] [address] [place] kwikpen/accu-chek [address] plus test strips) [place] [address] [place] [address] [phone] (Wo rk) Social History Tobacco Use Types Packs/Day Years Used Date Smoking Tobacco: Former Cigarettes Quit : 08/02/1981 Smokeless Tobacco: Never Alcohol Use Standard Drinks/Week Comments No 0 (1 standard drink = 0.6 oz pure alcoho l) Sex Assigned at Date Recorded Not on file documented as of this encounter Nursing Notes Zaida Her, PAYTON - 04/27/2018 1:41 PM CDT Refilled per physicians orders. Zaida Her RN 04/27/2018, 1:41 PM Elda Espinal - 04/26/2018 10:34 AM CDT COPIED FROM SPLIT REFILL ENCOUNTER Basaglar mechelleikpen Last refilled: 03/09/18 Dispense amount of last refill: 30 Accu-chek lizbet plus test strips Last refilled: 01/16/18 Dispense amount of last refill: 250 lEda Espinal Interface, Out Surescripts Prov Query - 04/26/2018 10:34 AM CDT insulin glargine (BASAGLAR) 100 UNIT/ML KWDINORA Diabetes - Insulin -> The requested medication was previously set to Historical. -> HBA1C is abnormal (8.7 % is greater than 7.9 %) -> Refill x 3 months (courtesy refill, overdue for a(n) HBA1C check) -> Calculate quantity and refills manually. They could not be estimated due to missing or unreadable information. Last qualifying visit: 01/14/2018 (in Endocrinology with FATMATA MADDOX) Next scheduled visit: 07/20/2018 (in Endocrinology with FATMATA MADDOX) Last ordered by FATMATA MADDOX: 02/17/2018 (68 days ago as Historical on 02/17/2018 by JEWEL FRIED), Si units in am ( give in 2 separate injections of 30 units at the same time) (unchanged) HBA1C: 8.7 % on 01/14/2018 Powered by [employer], Reference: [id number], 04/26/2018 10:34:23 AM CDT, Pool: MARY YANEZ RN ([id number]) Interface, Out TabletKiosk Prov Query - 04/26/2018 10:34 AM CDT The following lab order(s) may be associated with the Result Note below: HGB A1C,POINT OF CARE Notes Recorded by Jewel Fried RN on 01/14/2018 at 5:14 PM Discussed at office visit on 01/14/2018 Jewel Fried RN 01/14/2018, 5:14 PM documented in this encounter Plan of Treatment Upcoming Encounters Date Type Specialty Care Team Description 08/13/2022 Appointment Radiology Denise Aguirre APRN, ALLIANCE DIRECTOR [address] [place], [place] [address] (Wo rk) 08/13/2022 Appointment Hematology and Oncology Denise Aguirre APRN, ALLIANCE DIRECTOR [address] [place], [place] [address] (Wo rk) documented [...] insulin documented in this encounter Care Teams Aboriginal Liaison Officer Relationship Specialty Start Date End Date Elyse Paredes MD PCP - General Family Practice 03/19/17 [address] [place] [address] documented as of this encounter
--- OUTSIDE RECORDS SUMMARY | 2022-07-02 13:56 | XMS_ITS | Encounter Summary ---
:1950 Author Organization [facility] Address [address] [place] [address] Care Team Providers Name Role Phone Elyse Paredes MD Primary Care Provider Encounter Details Date Type Department Care Team Description 10/13/2017 Telephone Specialty Center 401 Miya Shin MD Endocrinology Clinic [address] [facility] [address] [place] [address] [place] [address] [phone] (Wo rk) Social History Tobacco Use Types Packs/Day Years Used Date Smoking Tobacco: Former Cigarettes Quit : 08/02/1981 Smokeless Tobacco: Never Alcohol Use Standard Drinks/Week Comments No 0 (1 standard drink = 0.6 oz pure alcoho l) Sex Assigned at Date Recorded Not on file documented as of this encounter Nursing Notes Mora Greenwood - 10/14/2017 8:30 AM CDT [facility] Gabrielle Alvarez - 10/13/2017 3:30 PM CDT [facility] will be faxing over lab work prior to 11/03/17 appointment with provider. Gabrielle Alvarez documented in this encounter Plan of Treatment Upcoming Encounters Date Type Specialty Care Team Description 08/13/2022 Appointment Radiology Denise Aguirre, LAY OUT MAKER, RESTAURANT TEAM MEMBER [address] [place], [place] [address] (Wo rk) 08/13/2022 Appointment Hematology and Oncology Denise Aguirre APRN, RESTAURANT TEAM MEMBER [address] [place], [place] [address] (Wo rk) documented as [...] on filedocumented in this encounter Care Teams Mlt Relationship Specialty Start Date End Date Elyse Paredes MD PCP - General Family Practice 03/19/17 [address] [place] [address] documented as of this encounter
--- OUTSIDE RECORDS SUMMARY | 2022-07-02 13:56 | XMS_ITS | Encounter Summary ---
:1950 Author Organization [employer] Address [address] [place] [address] Care Team Providers Name Role Phone Elyse Paredes MD Primary Care Provider Reason for Visit Procedure/Equipment (Routine) - Incomplete Specialty Diagnoses / Procedures Referred By Contact Refer red To Contact Diagnoses Abnormal mammogram Elyse Paredes MD Procedures MM US Bx Breast Lt [address] [place] [address] Referral ID Status Reason Start Date Expiration Date Visits V isits Requested Authorized [id number] Incomplete 07/28/2018 10/27/2019 1 1 Encounter Details Date Type Department Care Team Description 07/28/2018 [facility]illary [facility] Elyse Paredes, Lump or ma ss in breast (Primary Dx); Procedure [facility] Abnormal mammogram [address] [facility] [address] [place] [phone] Social History Tobacco Use Types Packs/Day Years [...] Team Description 08/13/2022 Appointment Radiology Denise Aguirre, BREAKER OFF, MUSHROOM PRESS OPERATOR [address] [place], [place] [address] (Wo rk) 08/13/2022 Appointment Hematology and Oncology Denise Aguirre, BREAKER OFF, MUSHROOM PRESS OPERATOR [address] [place] [address] (Wo rk) documented as of this [...] Date/Time Associated Diagnosis Comme nts MM US BX BREAST LT Routine 07/28/2018 2:05 PM Abnormal mammogr am Results for this CHEMICAL EDUCATOR procedure are i n the results section. SURGICAL PATH Routine 07/28/2018 6:00 AM Lump or mass in Resul ts for this CHEMICAL EDUCATOR breast procedure are i n the results section. documented in this encounter Results MM US Bx Breast Lt (07/28/2018 2:05 PM CHEMICAL EDUCATOR) Anatomical Region Laterality Modality Breast Left Mammography Specimen (Source) Anatomical Location Collection Method / Collectio n Time Received Time / Laterality Volume Addenda Addendum by Tone Chiang MD on 3:50 PM CHEMICAL EDUCATOR Pathology reveals invasive ductal carcin rianna. This is consistent with the imaging findings. A verbal report was gi eligio to the patient. Surgical consult has been arranged. Impressions 07/28/2018 2:38 PM CHEMICAL EDUCATOR : 1. Ultrasound guided biopsy of a suspici ous mass in the left breast. ?? Pathology pending. 2. Post procedure mammogram for clip kale cement. Narrative 07/28/2018 2:38 PM CHEMICAL EDUCATOR LEFT BREAST ULTRASOUND GUIDED BIOPSY, CLIP PLACEMENT AND LEFT MAMMOGRAM: INDICATIONS: ??Left breast mass. PROCEDURE: ??Informed consent was obtain ed from the patient. ??Ultrasound was used to localize the mass in the 12 o'clock position of the left breast, zone 2. ??The skin was prepped a nd draped in a sterile fashion. ?? Buffered lidocaine was used for local an esthesia and additional deep anesthesia achieved using lidocaine with epinephrine. ??Under direct sonographic guidance, a 12 gauge coaxial needle was used to obtain 4 core biopsies. ??A clip was then placed. Digi chandu mammogram post biopsy demonstrates the clip in an appropriate position. The patient tolerated this well, there are no immediate compli cations. Elyse Paredes MD [facility] Surgical Path (07/28/2018 6:00 AM CHEMICAL EDUCATOR) Component Value Ref Test Analysis Performed At [facility] gist Range Method Time Signature Histology (NOTE) [facility] Final Report ?? [facility] Procedures/Addenda Present Patient Name: IRVIN HOFFMAN Taken: 07/28/2018 Received: 07/28/2018 Reported: 07/29/2018 Physician(s): TONE CHIANG ? Final Pathologic Diagnosis Breast, left, 12 o'clock zone 2, biopsy -- ?1. ??Invasive ductal carcinoma Canadian grade II ?2. ??Ductal carcinoma in situ, solid type, intermediat e grade nucleus ?3. ??ER, DC and HER-2/carin studies will be performed an d the results will be issued in an addendum Comments Immunohistochemical stain for E-cadherin is positive support ing the ductal origin of the tumor. The findings are discussed with Kirsty Mota in the [facility] on July 29, 2018. ?? *Electronically Signed Out By Deisi Pina MD* ALEXANDRA Merrill [facility] Deisi Pina MD Procedures/Addenda Addendum ? Date Ordered: ? 08/01/2018 ?Date Complete: ? 08/01/2018 ?Date Reported: ? 08/01/2018 ?Status: Signed Out ?Signed Out By: Aletha Burciaga MD Addendum Diagnosis ? BREAST TUMOR RECEPTOR STATUS (see below for technical detail s): Breast, left, 12:00 zone 2-- ?Estrogen Receptor: High positive ?Progesterone Receptor: Positive ?Her2/Carin status: Negative (score: ??0-1+) Aletha Burciaga M.D. Staff Pathologist ESTROGEN AND PROGESTERONE RECEPTOR IMMUNOHISTOCHEMICAL STUDY DETAILS: ?? Specimen Block Number: A1 INTERPRETATION: ?Estrogen Receptor: High positive ?Progesterone Receptor: Positive ? * Explanation of results: ?Negative (Ladonna score 0-2 with less than 1% cells wea kly staining) ?Low Positive (Ladonna score of 3-4; >1-10% of cell stai gus) ?Positive (Ladonna score of 5-6; 11-75% of cells stainin g of variable intensity) ?High Positive (Ladonna score of 7-8; >75% of cells stai gus intensely) Score: ??The calculation based upon a combination of the sta ining positivity and intensity of tumor cells (Ladonna scoring syst em) Method: ??Immunohistochemistry, formalin fixed, paraffin emb edded tissue. Antiestrogen Receptor: ?? [place] (clone SP1, monoclonal rab bit) Antiprogesterone Receptor: ??[place] (clone 1E2, monoclonal rabbit) Semiquantitative Evaluation: ??Ladonna scoring system ?? Detection method: ??Dextran polymer method. ?? Internal positive controls reviewed and stain appropriately. Per ASCO guidelines the tissue has been fixed for a minimum of 6 to 7 2 hours. For review see: ASCO/CAP Guideline Recommendations for IHC T esting of Estrogen and Progesterone Receptors in Breast Cancer. ??Chuy bird et al. J of Clin Onc, Vol. 28 No.16December 2009 HER-2/CARIN OVEREXPRESSION IMMUNOHISTOCHEMICAL STUDY DETAILS:* Specimen Block No.: ??A1 Interpretation: Negative (score: ??0-1+) *Explanation of results: ??IHC Scoring Criteria (2018) Negative: ?(score 0 or 1+) = No staining is observed in invasive tumor cells or membrane staining that is incomplete and is faint/barely perceptible and in less than or equal to 10% of tumor cell o r incomplete membrane staining that is faint/imperceptible and in greater than 10% of tumor cells. Equivocal: ?(score 2+) ??= Weak to moderate complete membrane stai gus observed in greater than 10% of tumor cells.* Positive: ?(score 3+) ??= Circumferential membrane staining that is complete, intense, and in greater than 10% of tumor cells. *Unusual staining patterns of HER2 by IHC can be encountered that are not covered by these definitions. ??In practice, these patte rns are rare and if encountered should be considered IHC 2+ equivoca l. ??Some specific subtypes of breast cancers can show IHC staining th at is moderate to intense but incomplete (basolateral or lateral) and can be found to be HER2 amplified. ??Another example is circumferen tial membrane IHC staining that is intense but in less than or eq ual to 10% of tumor cells (heterogeneous, but limited in extent). ??Suc h cases can be considered 2+ equivocal, but additional samples may revea l different percentages of HER2 positive staining. Readily appreciated using a low power objective and observ ed within a homogeneous and contiguous invasive cell population. For review see: Gerardo AC, Rose ASTORGA, Tova KH, et al. Human Epidermal Mitchell wth Factor Receptor 2 Testing in Breast Cancer: [place] Society of Cli nical Oncology/ College of [place] Pathologists Clinical Practice Guideline Focused Update. Journal of Clinical Oncology, November 2017. DOI: https://doi.org/10.1200/JCO.2018. 77.8738. PMID: 22883339. W eb link: http://ascopubs.org/doi/abs/10.1200/JCO.2018.77.8738 The FDA-approved Dako Herceptest Kit was used in this study. Internal positive controls reviewed and stain appropriately. Per ASCO guidelines the tissue has been fixed for a minimum of 6 to 7 2 hours. ?? Clinical History Left breast mass Gross Description The specimen is received in formalin and labeled with the pa kaye's name and left breast 12 o'clock Z2. ??The specimen consist s of a 1.5 x 1 x 0.2 cm aggregate of multiple entangled and fragmented, red, and benítez-yellow cores of soft tissue. ??75 percent of the specime n is fibrous. ??The specimen is inked yellow. ??The specimen was collected and placed in formalin at 1345 hours, July 28, 2018. ??T he specimen is entirely submitted in two cassettes. ??dt jeanne/07/28/2018 Microscopic Description Microscopic examination is performed The stain controls have been reviewed and stain appropriatel y. smgg07/29/2018 ALEXANDRA Merrill [facility] Deisi Pina MD [facility] Department of Pathology [address] [place], [place] ??[address] Specimen Anatomical Collection Method Collection Time Receive d Time (Source) Location / / Volume Laterality Breast 07/28/2018 6:00 AM 8 5:30 CHEMICAL EDUCATOR PM CHEMICAL EDUCATOR Tone Chiang MD LAB_1 Performing Organization Address City/State/ZIP Code Phon e Number [address] [address] documented in this encounter Visit Diagnoses Diagnosis Lump or mass in breast - Primary Abnormal mammogram Abnormal mammogram, unspecified documented in this encounter Care Teams Compliance Spec Relationship Specialty Start Date End Date Elyse Paredes MD PCP - General Family Practice 03/19/17 [address] [place] [address] documented as of this encounter
--- OUTSIDE RECORDS SUMMARY | 2022-07-02 13:56 | XMS_ITS | Encounter Summary ---
:1950 Author Organization [employer] Address [address], [place] [address] Care Team Providers Name Role Phone Elyse Paredes MD Primary Care Provider Reason for Visit Reason Comments Medication Questions Karis - BG number has dr opped to 43 - 45 twice Encounter Details Date Type Department Care Team Description 02/16/2018 Telephone Specialty Center 401 Miya Shin MD Medication Questions Endocrinology Clinic [address] ([facility] [address] [place] [address] [place] [address] to 43 - 45 twice) [phone] (Wo rk) Social History Tobacco Use Types Packs/Day Years Used Date Smoking Tobacco: Former Cigarettes Quit : 08/02/1981 Smokeless Tobacco: Never Alcohol Use Standard Drinks/Week Comments No 0 (1 standard drink = 0.6 oz pure alcoho l) Sex Assigned at Date Recorded Not on file documented as of this encounter Nursing Notes Jacquelyn Matos RN - 02/17/2018 11:36 AM CDT Spoke with patient. Gave recommendation per Dr. Shin. Pt verbalized understanding and agreed with plan. Medication list updated. No further questions or concerns. Jacquelyn Matos RN 02/17/2018, 11:36 AM Miya Shin MD - 02/17/2018 11:18 AM CDT Now that the Trulicity is peaking in activity, you need less insulin. Please remember that the mealtime insulin dose is never set in stone, and should not be a static number. The humalog dose should change based on the following factors : 1- Carb amount : If it is a higher carb meal , you may need to add 1 or 2 units extra. 2- Blood sugar reading: If your blood sugar is higher than 150 before your meal, you may need to add1, or 2 units or more to correct that, in ADDITION to the carb amount. 3- If you have added another medication that helps with blood sugars, once it starts to work, then the combination of that drug and insulin can drop your sugar too low. The new medication should not be stopped, but the insulin dose should be reduced where needed. In your case the humalog dose should go down to 4 or 5 units, if you have been taking 6 units beforeeach meal. Continue with the Trulicity as you have. Ok to give the dose now , 4- If your fasting sugars are lower also, and you have frequent readings below 100, then reduce the Basaglar insulin dose by 2-4 units, depending on how low you have been. Please clarify the total doseof Basaglar taken . The EMR says 60 units, given in two parts of 25 units each ? !! That would be 50units, not 60. 5- If you loose weight, which I would anticipate with Trulicity, then your insulin doses will need to be reduced again . Miya Shin MD Endocrinology, [facility] 02/17/2018 , 11:27 AM Jacquelyn Matos RN - 02/16/2018 4:54 PM CDT Called and spoke with patient. States that she trulicity for x3 weeks and she is very concerned about her blood sugars. Notices that her blood sugars have dropped in the 40's, twice in the past 2 weeks. Today, her blood sugar went from 153 down to 43 in 10 minutes. Per pt, is seeing better results, but is having the runs. Is wondering if she needs to adjust her Basaglar 60 units daily or Humalog 6 units with meals. Audit Manager advise pt to not take the Trulicity until provider reviews the message. Current medications: Basaglar 60 units daily, Humalog 6 units with meals, and Trulicity 0.75 mg weekly. Please advise. Thanks! Jacquelyn Matos, RN 02/16/2018, 5:00 PM Gabrielle Alvarez - 02/16/2018 2:50 PM CDT Patient has been using the trulicity for x3 weeks and she is very concerned about her blood glucose.Patient states that her numbers plummet very quickly and have dropped to 43, 45 and she has felt very sleepy. Patient is due to take her 4th syringe today but she is nervous about taking it. Please advise her on what to do. Gabrielle Alvarez documented in this encounter Plan of Treatment Upcoming Encounters Date Type Specialty Care Team Description 08/13/2022 Appointment Radiology Denise Aguirre APRN, ORACLE SOFTWARE ENGINEER [address] [place], [place] [address] (Wo rk) 08/13/2022 Appointment Hematology and Oncology Denise Aguirre APRN, ORACLE SOFTWARE ENGINEER [address] [place], [place] [address] (Wo rk) documented as [...] insulin documented in this encounter Care Teams Outside Sales Associate Relationship Specialty Start Date End Date Elyse Paredes MD PCP - General Family Practice 03/19/17 [address] [place] [address] documented as of this encounter
--- OUTSIDE RECORDS SUMMARY | 2022-07-02 13:56 | XMS_ITS | Encounter Summary ---
:1950 Author Organization [employer] Address [address] [place] [address] Care Team Providers Name Role Phone Elyse Paredes MD Primary Care Provider Reason for Visit Reason Comments HYPOGLYCEMIA Encounter Details Date Type Department Care Team Description 02/16/2018 Nurse Triage Careline Elyse Paredes MD HYPOGLYCEMIA [address] [place], [place] [address] [address] [place] [address] [phone] (Wo rk) Social History Tobacco Use Types Packs/Day Years Used Date Smoking Tobacco: Former Cigarettes Quit : 08/02/1981 Smokeless Tobacco: Never Alcohol Use Standard Drinks/Week Comments No 0 (1 standard drink = 0.6 oz pure alcoho l) Sex Assigned at Date Recorded Not on file documented as of this encounter Nursing Notes Dione Champion RN - 02/16/2018 2:37 PM CDT Reason for Disposition ? ? [1] Blood glucose < 70 mg/dl (3.9 mmol/l) or symptomatic, now improved with Care Advice AND [2] cause unknown Answer Assessment - Initial Assessment Questions 1. SYMPTOMS: What symptoms are you concerned about? Low blood sugar 2. ONSET: When did the symptoms start? Happened last week and again today. Became sweaty, weak and glucose down to 43 3. BLOOD GLUCOSE: What is your blood glucose level? Right now it is 157 and I feel fine 4. USUAL RANGE: What is your blood glucose level usually? (e.g., usual fasting morning value, usual evening value) Did not ask 5. TYPE 1 or 2: Do you know what type of diabetes you have? (e.g., Type 1, Type 2, Gestational; doesn't know) Type 2 diabetes for over 20 years 6. INSULIN: Do you take insulin? Yes, 7. DIABETES PILLS: Do you take any pills for your diabetes? Yes, metformin 8. OTHER SYMPTOMS: Do you have any symptoms? (e.g., fever, frequent urination, difficulty breathing, vomiting) From the trulicity I have had off and on nuasea and have had the runs. Told would get better. 9. LOW BLOOD GLUCOSE TREATMENT: What have you done so far to treat the low blood glucose level? Treated with sugar and feeling back to normal after 20 minutes 10. ALONE: Are you alone right now or is someone with you? I live alone 11. : Is there any chance you are ? When was your last menstrual period? N/A Protocols used: DIABETES - LOW BLOOD [id number] Dione Champion RN - 02/16/2018 2:31 PM CDT Verified patient identity using 3 identifiers. Yes, with patient Situation/Background 3 weeks ago in addition to my long and and short acting insulin I added trulicity. I am seeing better sugar levels but last week after taking long acting insulin within 10 minutes I could feel my BS dropping. I took some sugar and checked BS, it was 45. Happened again today, I wassweating and shaking and BS down to 43. I need to find out what to do. Today is the day to take 4th dose trulicity but not sure if should take it, or if I should back off on short acting insulin or dial back on long acting insulin. Reviewed with patient pertinent medical history Type 2 diabetes, HTN Reviewed with patient pertinent medications Insulin dependent, metformin, lopressor Allergic: Erythromycin; Lisinopril; and Metformin Advised that CareLine is available 22/02 [phone] if you have any questions or need to speak witha nurse. documented in this encounter Plan of Treatment Upcoming Encounters Date Type Specialty Care Team Description 08/13/2022 Appointment Radiology Denise Aguirre, ATG ARCHITECT, CLOTH BLEACHING RANGE TENDER [address] [place], [place] [address] (Wo rk) 08/13/2022 Appointment Hematology and Oncology Denise Aguirre, ATG ARCHITECT, CLOTH BLEACHING RANGE TENDER [address] [place], [place] [address] (Wo rk) documented as [...] on filedocumented in this encounter Care Teams Hosiery Pairer Relationship Specialty Start Date End Date Elyse Paredes MD PCP - General Family Practice 03/19/17 [address] [place] [address] documented as of this encounter
--- OUTSIDE RECORDS SUMMARY | 2022-07-02 13:56 | XMS_ITS | Encounter Summary ---
:1950 Author Organization [employer] Address [address] [place] [address] Care Team Providers Name Role Phone Elyse Paredes MD Primary Care Provider Reason for Visit Reason Comments Refill TRULICITY 1.5 MG/0.5ML injec iton pen [Pharmacy Med Name: TRULICITY 1.5MG/0.5ML SDP 4X0.5ML] Encounter Details Date Type Department Care Team Description 07/30/2018 Refill Specialty Center [address] Gabrielle Morris, Refill (TRULICITY 1.5 Endocrinology Clinic MANAGER OPERATIONS AND PROCUREMENT, DNP MG/0.5ML injeciton pen [address] [Pharmacy Med Name: [place] [address] [place], [place] TRULICITY 1.5MG/0.5ML [phone] SDP 4X0.5ML]) Social History Tobacco Use Types Packs/Day Years Used Date Smoking Tobacco: Former Cigarettes Quit : 08/02/1981 Smokeless Tobacco: Never Alcohol Use Standard Drinks/Week Comments No 0 (1 standard drink = 0.6 oz pure alcoho l) Sex Assigned at Date Recorded Not on file documented as of this encounter Nursing Notes Jacquelyn Matos RN - 08/01/2018 10:29 AM CST Completed per physician's orders. Jacquelyn Matos RN 10:29 AM 08/01/2018 'S BASKETBALL COACH Interface, Out Surescripts Prov Query - 07/30/2018 3:49 PM CST TRULICITY 1.5 MG/0.5ML injeciton pen [Pharmacy Med Name: TRULICITY 1.5MG/0.5ML SDP 4X0.5ML] Diabetes - Glucagon-Like Peptide 1 Agonist -> The requested strength (3 mg/ml auto-injector) was last ordered on 06/17/2017. The patient is taking 1.5 mg/ml auto-injector as of 01/14/2018. -> This medication was discontinued on 01/14/2018 by FATMATA MADDOX. -> The requested sig has changed from the last order. -> HBA1C is abnormal (8.7 % is greater than 7.9 %) -> HBA1C is overdue. An abnormal HBA1C (8.7%) was resulted on 01/14/2018 and HBA1C is required to be rechecked within 2 months to 3 months after an abnormal result. Last qualifying visit: 01/14/2018 (in Endocrinology with FATMATA MADDOX) Next scheduled visit: 08/09/2018 (in Endocrinology with TAWANDA BARNARD) Last ordered by GABRIELLE MORRIS J: 06/17/2017 (408 days ago) QTY: 6, Refills: 3, Sig: inject 0.5 ml subcutaneously once a week. (changed) HBA1C: 8.7 % on 01/14/2018 Powered by [employer], Reference: [id number], 07/30/2018 3:49:42 PM MEN'S BASKETBALL COACH, Pool: [facility] ([id number]) 'S BASKETBALL COACH Interface, Out Kadenze Prov Query - 07/30/2018 3:49 PM CST The following lab order(s) may be associated with the Result Note below: HGB A1C,POINT OF CARE Notes Recorded by Jacquelyn Matos RN on 01/14/2018 at 5:14 PM Discussed at office visit on 01/14/2018 Jacquelyn Matos RN 01/14/2018, 5:14 PM 'S BASKETBALL COACH documented in this encounter Plan of Treatment Upcoming Encounters Date Type Specialty Care Team Description 08/13/2022 Appointment Radiology Denise Aguirre, MANAGER OPERATIONS AND PROCUREMENT, WIND INSTRUMENT REPAIRER [address] [place], [place] [address] (Wo rk) 08/13/2022 Appointment Hematology and Oncology Denise Aguirre APRN, WIND INSTRUMENT REPAIRER [address] [place], [place] [address] (Wo rk) documented as [...] insulin documented in this encounter Care Teams Vice President Of Advertising Relationship Specialty Start Date End Date Elyse Paredes MD PCP - General Family Practice 03/19/17 [address] [place] [address] documented as of this encounter
--- OUTSIDE RECORDS SUMMARY | 2022-07-02 13:56 | XMS_ITS | Encounter Summary ---
:1950 Author Organization [employer] Address [address] [place] [address] Care Team Providers Name Role Phone Elyse Paredes MD Primary Care Provider Reason for Visit Procedure/Equipment (Routine) - Incomplete Specialty Diagnoses / Procedures Referred By Contact Refer red To Contact Diagnoses Abnormal mammogram Elyse Paredes MD Procedures MM US Breast Lt [address] [place] [address] Referral ID Status Reason Start Date Expiration Date Visits V isits Requested Authorized [id number] Incomplete 07/21/2018 10/20/2019 1 1 Encounter Details Date Type Department Care Team Description 07/28/2018 Ancillary Procedure [facility] Elyse Paredes, [facility] [address] [place] [address] [place] [address] [phone] Social History Tobacco Use Types Packs/Day Years [...] Description 08/13/2022 Appointment Radiology Denise Aguirre APRN, PRODUCTION SANITIZER [address] [place], [place] [address] (Wo rk) 08/13/2022 Appointment Hematology and Oncology Denise Aguirre APRN, PRODUCTION SANITIZER [address] [place] [address] (Wo rk) documented as of this [...] Comme nts MM US BREAST LT Routine 07/28/2018 1:12 PM Abnormal mammogram Results for this INFORMATION SERVICES ASSISTANT procedure are i n the results section. documented in this encounter Results (ABNORMAL) MM US Breast Lt (07/28/2018 1:12 PM INFORMATION SERVICES ASSISTANT) Anatomical Region Laterality Modality Breast Left Ultrasound Specimen (Source) Anatomical Collection Method Collection Time Re ceived Time Location / / Volume Laterality 07/28/2018 1:12 PM INFORMATION SERVICES ASSISTANT Narrative 07/28/2018 2:08 PM INFORMATION SERVICES ASSISTANT TEMPORARY 07/28/2018 2:06 PM INDICATION: Abnormal screening mammogram COMPARISON: Mammogram 07/19/2018 FINDINGS: Targeted ultrasound of the lef t breast demonstrates a 0.6 x 0.6 x 0.5 cm irregular mass with echogenic, indistinct margins at 12:00 zone 2. This correlates with the mammographic finding. Ultra sound of the left axilla shows normal-ap pearing lymph nodes. IMPRESSION: The 0.6 cm irregular mass in the left br east at 12:00 zone 2 is a suspicious abnormality. Ultrasound-guided biopsy is recommended. ACR BI-RADS Category 4: Suspicious. Procedure Note Beryl Forbes MD - 07/29/2018Formatt ing of this note might be different from the original. TEMPORARY 07/28/2018 2:06 PM INDICATION: Abnormal screening mammogram COMPARISON: Mammogram 07/19/2018 FINDINGS: Targeted ultrasound of the lef t breast demonstrates a 0.6 x 0.6 x 0.5 cm irregular mass with echogenic, indistinct margins at 12:00 zone 2. This correlates with the mammographic finding. Ultrasound of the left axilla shows normal-appearing lymph node s. IMPRESSION: The 0.6 cm irregular mass in the left br east at 12:00 zone 2 is a suspicious abnormality. Ultrasound-guided biopsy is recommended. ACR BI-RADS Category 4: Suspicious. Elyse Paredes MD RAD NILAM documented in this encounter Visit Diagnoses Diagnosis Abnormal mammogram Abnormal mammogram, unspecified documented in this encounter Care Teams Professor Of Archaeology Relationship Specialty Start Date End Date Elyse Paredes MD PCP - General Family Practice 03/19/[address] [place] [address] documented as of this encounter
--- OUTSIDE RECORDS SUMMARY | 2022-07-02 13:56 | XMS_ITS | Encounter Summary ---
:1950 Author Organization [employer] Address [address] [place] [address] Care Team Providers Name Role Phone Elyse Paredes MD Primary Care Provider Encounter Details Date Type Department Care Team Description 07/28/2018 Consent for [facility] Department RH INFORM ED [...] Team Description 08/13/2022 Appointment Radiology Denise Aguirre, LOCOMOTIVE MECHANIC APPRENTICE, HVAC R TECH [address] [place], [place] [address] (Wo rk) 08/13/2022 Appointment Hematology and Oncology Denise Aguirre APRN, HVAC R TECH [address] [place], [place] [address] (Wo rk) documented as [...] on filedocumented in this encounter Care Teams Plasterer Journeyman Relationship Specialty Start Date End Date Elyse Paredes MD PCP - General Family Practice 03/19/17 [address] [place] [address] documented as of this encounter
--- OUTSIDE RECORDS SUMMARY | 2022-07-02 13:56 | XMS_ITS | Encounter Summary ---
:1950 Author Organization [employer] [id number] [place] [address] Care Team Providers Name Role Phone Elyse Paredes MD Primary Care Provider Reason for Referral Procedure/Equipment (Routine) - Incomplete Specialty Diagnoses / Procedures Referred By Contact Refer red To Contact Procedures Elyse Paredes MD MM Mammogram Screening Bilat [address] [place] [address] Referral ID Status Reason Start Date Expiration Date Visits V isits Requested Authorized [id number] Incomplete 07/19/2018 10/18/2019 1 1 E HAND CARDING Reason for Visit Procedure/Equipment (Routine) - Incomplete Specialty Diagnoses / Procedures Referred By Contact Refer red To Contact Procedures Elyse Paredes MD MM Mammogram Screening Bilat [address] [address] Referral ID Status Reason Start Date Expiration Date Visits V isits Requested Authorized [id number] Incomplete 07/19/2018 10/18/2019 1 1 Encounter Details Date Type Department Care Team Description 07/19/2018 Ancillary Procedure [facility] Mammography [address] [place] [address] Social History Tobacco Use Types Packs/Day Years [...] Team Description 08/13/2022 Appointment Radiology Denise Aguirre, CARPET INSTALLER HELPER, POCKET CREASER [address] [place], [place] [address] (Wo rk) 08/13/2022 Appointment Hematology and Oncology Denise Aguirre, CARPET INSTALLER HELPER, POCKET CREASER [address] [place], [place] [address] (Tonio rk) documented as [...] Associated Diagnosis Comme nts MM MAMMOGRAM Routine 07/19/2018 12:08 PM Results for this SCREENING BILAT W SPARE HAND CARDING procedure are in CAD the results section. documented in this encounter Results (ABNORMAL) MM Mammogram Screening Bilat W CAD (07/19/2018 12:08 PM SPARE HAND CARDING) Anatomical Region Laterality Modality Breast Bilateral Mammography Specimen (Source) Anatomical Location Collection Method / Collectio n Time Received Time / Laterality Volume Impressions 07/20/2018 3:39 PM SPARE HAND CARDING : ACR BI-RADS Category 0: Need Additional Imaging Evaluation RECOMMENDATION: Ultrasound of the left b reast. The results and recommendations of this examination will be communicated to the patient and the imaging center wi ll attempt to schedule any recommended follow up with the patient. Narrative 07/20/2018 3:39 PM SPARE HAND CARDING MM MAMMOGRAM SCREENING BILAT W CAD performed on 07/19/18 Compared to: 03/27/2015 Foreign Image(S) Mammogram Bilateral Screening, 07/27/2013 Foreign Image(S) Mammogram Bi lateral Screening, and 08/13/2011 Foreign Image(S) Mammogram Bilateral Scr eening FINDINGS: Bilateral screening mammogram was performed with the assistance of Computer-Aided Detection. The breasts have scattered areas of fibroglandular density. There is a mass in the left breast at th e 12 o'clock position at middle depth. The remainder of the breast tissue is un remarkable. Elyse Paredes MD RAD NILAM documented in this encounter Visit Diagnoses Not on filedocumented in this encounter Care Teams Cyber Policy And Strategy Planner Relationship Specialty Start Date End Date Elyse Paredes MD PCP - General Family Practice 03/19/17 [address] [place] [address] documented as of this encounter
--- OUTSIDE RECORDS SUMMARY | 2022-07-02 13:56 | XMS_ITS | Encounter Summary ---
:1950 Author Organization [employer] Address [address] [place] [address] Care Team Providers Name Role Phone Elyse Paredes MD Primary Care Provider Reason for Visit Reason Comments Blood Glucose Readings Encounter Details Date Type Department Care Team Description 09/24/2017 Telephone Specialty Center [address] Gabrielle Morris, Blood Glucose Readings Endocr[facility]ology [facility] MEDICAL ACCOUNTS RECEIVABLE SPECIALIST, DNP [facility] [address] [place] [address] [place], [place] [phone] [facility] Social History Tobacco Use Types Packs/Day Years Used Date Smoking Tobacco: Former Cigarettes Quit : 08/02/1981 Smokeless Tobacco: Never Alcohol Use Standard Drinks/Week Comments No 0 (1 standard drink = 0.6 oz pure alcoho l) Sex Assigned at Date Recorded Not on file documented as of this encounter Nursing Notes Emily Zamora, PAYTON - 09/28/2017 9:26 AM CST Called and spoke to PAYTON Wilcox and let her know. No other questions at this time. Emily Zamora RN 09/28/2017, 9:27 AM PROCESSING SYSTEMS CONSULTANT Lety Matthews - 09/27/2017 4:31 PM CST Jeri returned call. States if she is unable to answer she would like a detailed message left on her voicemail. Donna Jha RN - 09/27/2017 4:19 PM CST Left a message for Jeri the nurse to call back. Donna Mcdermott RN Gabrielle Pandey APRN, PORTFOLIO ANALYST - 09/27/2017 3:56 PM CST Diabetes medication regimen: ?? Basaglar 60units divided into two injection sites of 30 units each (to improve absorption) ?? Humalog 10 units three times a day plus correction scale of 1 unit per 50 points over 150 blood sugar Metformin: Week 1: Start metformin at 500 mg at dinner Week 2: 500 mg with breakfast and dinner Week 3: 1000 mg with dinner and 500 mg with breakfast Week 4: 1000 mg with breakfast and dinner ?? Please continue taking both Humalog (mealtime insulin) and Basaglar even when you start taking the Metformin Thank you. Gabrielle Morris APRN, DIRECTOR OUTCOMES-C 09/27/2017 4:02 PM Elda Spicer - 09/27/2017 2:28 PM CST Jeri left a message at 2:19 pm today. She just spoke with Marci. Patient said her mealtime insulinis 6 units plus sliding scale. Patient doesn't recall hearing to take 10 units. Patient will start the metformin one pill daily with breakfast. Patient wants to confirm she is to stop the mealtime insulin when starting the metformin. Please either call Jeri back at [phone] or Marci at her cell number. Elda Espinal Donna Jha RN - 09/27/2017 1:59 PM CST Called and spoke to Jeri the nurse. Patient hasn't started the Trulicity or the Metformin yet as her atrial fib still isn't controlled. Basaglar 60 units split into 2 divided doses. Humalog 10 units tid ac plus correction scale of 1 unit per 50 >150 Please advise. Donna Mcdermott RN 09/27/2017, 2:06 PM Donna Jha RN - 09/24/2017 12:59 PM CST Left a message for Jeri the nurse to call back. Donna Mcdermott RN Gabrielle Pandey APRN, BARRETT - 09/24/2017 11:51 AM CST Blood sugar readings reviewed. ?? Review of Blood Sugars: Morning: Mid-100's to mid-200's After Breakfast: Mid-100's to mid-200's Before Lunch: Mid-to upper-100's After Lunch: Upper-100's to mid-300's Before Dinner: One reading - 344 After Dinner: 120's to mid-200's Bedtime: Upper-100's to upper-200's Sports Specialist unclear as to patient's current diabetes medications. Please find out which medications she is taking at this time . I will then be able to make recommendations about adjustments in dosing. Thank you. Gabrielle Morris APRN, DIRECTOR OUTCOMES-C 09/24/2017 11:57 AM Mora Pisano - 09/24/2017 10:49 AM CST Date Before Breakfast After Breakfast Before Lunch After Lunch Before Dinner After Dinner Bedtime Comments 09/23 234 141 270 09/22 251 194 235 09/21 213 161 After cardiac rehab 09/20 199 200 296 09/19 162 168 09/17 233 1255 AM 246 09/16 154 335 124 After cardiac rehab 255 09/15 168 179 230 1 AM 218 09/14 269 344 177 After cardiac rehab 233 11 PM 199 PROCESSING SYSTEMS CONSULTANT documented in this encounter Plan of Treatment Upcoming Encounters Date Type Specialty Care Team Description 08/13/2022 Appointment Radiology Denise Aguirre, MEDICAL ACCOUNTS RECEIVABLE SPECIALIST, PORTFOLIO ANALYST [address] [place], [place] [address] (Wo rk) 08/13/2022 Appointment Hematology and Oncology Denise Aguirre APRN, PORTFOLIO ANALYST [address] [place], [place] [address] (Wo rk) documented as [...] on filedocumented in this encounter Care Teams Mechanical Engineering Intern Relationship Specialty Start Date End Date Elyse Paredes MD PCP - General Family Practice 03/19/17 [address] [place] [address] documented as of this encounter
--- OUTSIDE RECORDS SUMMARY | 2022-07-02 13:56 | XMS_ITS | Encounter Summary ---
:1950 Author Organization [employer] Address [address] [place] [address] Care Team Providers Name Role Phone Elyse Paredes MD Primary Care Provider Reason for Visit Reason Onset Date Comments Refill 04/22/2018 B-D UF III MINI PEN NEEDLES 31G X 5 MM needle Encounter Details Date Type Department Care Team Description 04/22/2018 Refill Specialty Center 401 Fatmata Maddox MD Refill (B-D UF III Endocrinology Clinic [address] [facility] MINI PEN NEEDLES 31G [address] X 5 MM needle) [place] [address] [place] [address] [phone] (Wo rk) Social History Tobacco Use Types Packs/Day Years Used Date Smoking Tobacco: Former Cigarettes Quit : 08/02/1981 Smokeless Tobacco: Never Alcohol Use Standard Drinks/Week Comments No 0 (1 standard drink = 0.6 oz pure alcoho l) Sex Assigned at Date Recorded Not on file documented as of this encounter Nursing Notes Jacquelyn Matos RN - 04/25/2018 1:34 PM CDT Completed per physician's orders. Jacquelyn Matos RN 1:34 PM 04/25/2018 Interface, Out Surescripts Prov Query - 04/22/2018 9:56 AM CDT B-D UF III MINI PEN NEEDLES 31G X 5 MM needle Diabetes - Testing Supplies -> Refill x 12 months (maximum allowed) -> Calculate quantity and refills manually. They could not be estimated due to missing or unreadable information. Last qualifying visit: 01/14/2018 (in Endocrinology with FATMATA MADDOX) Next scheduled visit: 07/20/2018 (in Endocrinology with FATMATA MADDOX) Last ordered by FATMATA MADDOX: 03/19/2017 (399 days ago) QTY: 100, Refills: 0, Si-5 times daily. (unchanged) Powered by Cuffed and Wanted, Reference: [id number], 04/22/2018 9:56:21 AM CDT, Pool: ENDO REFILL PAYTON ([id number]) Elda Espinal - 04/22/2018 9:55 AM CDT Last refilled: 03/04/18 Dispense amount of last refill: 100 Elda Espinal documented in this encounter Plan of Treatment Upcoming Encounters Date Type Specialty Care Team Description 08/13/2022 Appointment Radiology Denise Aguirre APRN, GILL NET STRINGER [address] [place], [place] [address] (Wo rk) 08/13/2022 Appointment Hematology and Oncology Denise Aguirre APRN, GILL NET STRINGER [address] [place], [place] [address] (Wo rk) documented as [...] on filedocumented in this encounter Care Teams Rigging Up Man Relationship Specialty Start Date End Date Elyse Paredes MD PCP - General Family Practice 03/19/17 [address] [place] [address] documented as of this encounter
--- OUTSIDE RECORDS SUMMARY | 2022-07-02 13:56 | XMS_ITS | Encounter Summary ---
:1950 Author Organization [facility] Address [address] [place] [address] Care Team Providers Name Role Phone Elyse Paredes MD Primary Care Provider Reason for Referral Consult/Transfer Care (Routine) - Closed Specialty Diagnoses / Procedures Referred By Contact Refer red To Contact Diagnoses Malignant neoplasm of overlapping sites of left breast in female, estrogen receptor positive (HRC) Maryellen Beaulieu MD [address] [place] [address] Referral ID Status Reason Start Date Expiration Date Visits Requ ested Visits Authorized [id number] Closed 08/11/2018 11/10/2019 1 1 Scheduling Instructions Your provider has recommended an appoint ment with [facility]. You may call [phone] to schedule your appointment. If you prefer, a outpatient scheduler will contact you within the ms xt 3 business days to assist you in setting up this appointment. We suggest you call your health insurance company about your coverage and benefits for this appointme nt. ER TRIMMER Encounter Details Date Type Department Care Team Description 08/11/2018 Notes/Orders [facility] Christinsen Rengel, Malign ant neoplasm [facility] GRIFFIN Lofton, BARRETT of overlapping sites [address] [facility] [place] [address] [place] [address] female, estrogen [phone] (Wo rk) receptor positive (HRC) (Pr imary Dx) Social History Tobacco Use Types Packs/Day [...] Team Description 08/13/2022 Appointment Radiology Denise Aguirre, HSPT TUTOR, BUTTON SEWER [address] [place], [place] [address] (Wo rk) 08/13/2022 Appointment Hematology and Oncology Denise Aguirre, HSPT TUTOR, BUTTON SEWER [address] [place], [place] [address] (Wo rk) Scheduled Referrals [...] healthy Diabetes Education Diabetes Education No Tanner Carranaz, RD, CDE Note: Formatting of this note [...] Primary documented in this encounter Care Teams Parking Enforcement Officer Relationship Specialty Start Date End Date Elyse Paredes MD PCP - General Family Practice 03/19/17 [address] [place], [place] [id number] documented as of this encounter
--- OUTSIDE RECORDS SUMMARY | 2022-07-02 13:56 | XMS_ITS | Encounter Summary ---
:1950 Author Organization [facility] Address [address] [place] [address] Care Team Providers Name Role Phone Elyse Paredes MD Primary Care Provider Reason for Visit Reason Comments FOLLOW-UP,DIABETES Encounter Details Date Type Department Care Team Description 08/09/2018 Office Visit [facility] 401 Manasa Salas, Dylan ncontrolled type 2 diabetes mellitus, with long-term current use of insulin (HRC) (Primary Dx); Endocrinology Clinic Obesity, morbid, BMI 50 or higher (HRC); [address] Coronary artery disease involving hamilton coronary artery of hamilton heart without angina pectoris [place], [place] [id number] [place] [address] [employer] Social History Tobacco Use Types Packs/Day Years Used Date Smoking Tobacco: Former Cigarettes Quit : 08/02/1981 Smokeless Tobacco: Never Alcohol Use Standard Drinks/Week Comments No 0 (1 standard drink = 0.6 oz pure alcoho l) Sex Assigned at Date Recorded Not on file documented as of this encounter Last Filed Vital Signs Vital Sign Reading Time Taken Comments Blood Pressure 144/64 08/09/2018 1:18 PM BLUEPRINT MAKER Pulse 61 08/09/2018 1:18 PM BLUEPRINT MAKER Temperature - - Respiratory Rate - - Oxygen Saturation - - Inhaled Oxygen Concentration - - Weight 130.6 kg (288 lb) 08/09/2018 1:18 PM BLUEPRINT MAKER Height - - Body Mass Index 53.1 08/05/2018 10:58 AM BLUEPRINT MAKER documented in this encounter Patient Instructions Patient InstructionsManasa Salas MD - 08/09/2018 12:45 PM CST Assessment and Plan: 1.Type 2 diabetes uncontrolled complicated by CAD, SLEEP APNEA, DYSLIPIDEMIA, HTN , OBESITY AND NOW RECENT DIAGNOSIS OF BREAST CANCER Fasting numbers are at goal Midday when I review her checks done at cardiac rehab numbers range from 140-190 Her bedtime readings are over 200 1. Continue basaglar at 60 units at bedtime 2. Continue weekly trulicity 3. Take humalog 6 units with dinner Take it 5-10 mins before eating Avoid eating dinner after 7.00pm For after dinner snacking only nuts or cheese Goal is hba1c <8% prior to breast surgery Fasting 90-130 Bedtime <200 If bedtime blood sugar is over 200 u may take 4 units of humalog to bring it down Discussed trying ORIGIN MEALS for a calorie restricted pre prepared diet plan which is healthy and balanced Once she has dealt with the issues related to breast cancer then we can consider additional oral meds like sglt-2 inhibitors to add to her regimen , with the goal being to lower her insulin requirement Discussed she may run into issues with hypoglycemia when she is undergoing treatment for breast cancer , as appetite may be variable with surgery and radiation If she gets more then 2 reading <70 in a week she needs to reduce her basaglar insulin to 50 units and inform us for now it does not sound like she will need chemo hence she can sty on the trulicity for now rtc in 3 mths Manasa Salas MD PRINT MAKER documented in this encounter Progress Notes Emily Zamora RN - 08/09/2018 12:45 PM CST Images from the original note were not included. PRINT MAKER Manasa Salas MD - 08/09/2018 12:45 PM CST HPI: Marci Diaz is a 68 y.o. old female seen in follow up for continued management of her uncontrolled type 2 diabetes complicated by underlying CAD, obesity, intolerance to metformin, type 2 diabetes since 1989 Has been on insulin for over 5 yrs Intolerance to metformin , started in 2016 , gave her nausea current regimen : tulicity once weekly 1.5 mg dose started in the summer basaglar 60 units daily humalog 3 times per day is listed on her med list, however she has been taking it only once a day prn after her dinner about 1 hr later if her blood sugar is over 200 concerned about weight gain with the humalog historically well controlled on metformin and basaglar Then once her metformin was stopped sec to gi side effects her hba1c started to rise over the past 1.5 yrs now also she retired in December of 2017 she had been seen [facility] transfered Her diabetes care to in 2016 Patient has been seen by Dr Shin in the past , I am seeing him for the first time. I have reviewed the prior clinic notes. Last visit with Dr Shin 12/2017 Ros:tolerating the trulicity fine inttially made her feel full, not so much now Excessive fatigue No stamina Goes to cardiac rehab 3 times per week No numbness or tingling in her feet No hypoglycemia No chest pain Struggles with depression since the loss of her brother who in 2016 from esophageal cancer Was seen by cardiology 08/08/18 Amiodarone was stopped Metoprolol 25 xr was started chlorthalidone 25 mg po daily started Stopped the plavix Asa started 10 days back diagnosed with breast cancer And now will need lumpectomy And possible radiation for the same concerned about her diabetes and her weight ALLERGIES : reviewed in [facility] Patient Active Problem List Diagnosis ??? Uncontrolled [...] use of insulin (HRC) ??? Diabetes Education s/p: aortic valve replaced , bovine valve in jul 2017 Transient afibb after valve replacement for 2 mths H/o of renal stones , last episode was may of 2017 , one episode a decade prior Recent diagnosis of breast cancer [facility] Past Surgical History: Procedure Laterality Date ??? AORTIC VALVE REPLACEMENT 07/06/2017 ??? 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 She has never used smokeless tobacco. She reportsthat she does not drink alcohol. FAMILY H/O; Family History Problem Relation Age of Onset ??? Cancer, Breast Negative Family History ??? Cancer, Colon Negative Family History ??? Cancer, Lung Negative Family History ??? Cancer, Ovary Negative Family History ??? Cancer, Prostate Negative Family History ??? Cancer, Pancreatic Negative Family History :esophageal cancer in brother Father had type 1 diabetes Physical Exam: Blood pressure (!) 144/64, pulse 61, weight 288 lb (130.6 kg). bmi 53 Psych: patient pleasant, appropriate, mood is good ENT: moist mucus membranes, no oral lesions Thyroid: Thyroid normal size. CV: Regular rate and rhythm Skin: no lesions, no edema Musculoskeletal: normal muscle tone. . Labs: reviewed with patient Assessment and Plan: 1. TypE 2 diabetes uncontrolled complicated by CAD, SLEEP APNEA, DYSLIPIDEMIA, HTN , OBESITY AND NOWRECENT DIAGNOSIS OF BREAST CANCER Fasting numbers are at goal The date and time on her meter are off And the 1300 numbers are her fasting sugars Midday when I review her checks done at cardiac rehab numbers range from 140-190 Her bedtime readings are over 200 factors identified: Admits to poor dietary choices and post dinner snacking on crackers Eating for mood stabilization Incorrect dosing of humalog Fear of weight gain on the insulin Intolerance to metformin Not an ideal candidate for other insulin sensitizing meds like actos in light of her underlying CAD Recent diagnosis of breast cancer a large part of her visit was spent in addressing her concerns and identifying contributing factorswhich are affecting her diabetes control 1. Continue basaglar at 60 units at bedtime 2. Continue weekly trulicity 3. Take humalog 6 units with dinner Take it 5-10 mins before eating Diet and lifestyle discussed Avoid eating dinner after 7.00pm For after dinner snacking only nuts or cheese Discussed blood sugar goals Goal is hba1c <8% prior to breast surgery Fasting 90-130 Bedtime <200 If bedtime blood sugar is over 200 u may take 4 units of humalog to bring it down Discussed weight management with calorie restricted diet Discussed trying ORIGIN MEALS for a calorie restricted pre prepared diet plan which is healthy and balanced Once she has dealt with the issues related to breast cancer then we can consider additional oral meds like sglt-2 inhibitors to add to her regimen , with the goal being to lower her insulin requirementAnd help further with weight loss I spent 45 minutes with patient, over 50% of which was spent in counseling, education and direct patient care Manasa Salas MD 08/09/2018, 1:37 PM PRINT MAKER documented in this encounter Nursing Notes Donna Mcdermott RN - 08/09/2018 12:45 PM CST With which doctor would you like us to share this information: Accu check in clinic today is: 127 Time of last meal: protein drink brunch How many time BS checked in a day: 4-5 times Did patient bring blood glucose history (log book, pump, meter,or CGM)? yes Medication list updated? Yes Ketones, if diabetic: ASA: yes BP Readings from Last 3 Encounters: 08/05/18 128/64 01/14/18 (!) 141/83 06/17/17 118/83 Point of Care A1c (%) Date Value 01/14/2018 8.7 (H) 06/17/2017 9.1 (H) No results found for: LDL Tobacco Usage: reports that she quit smoking about 37 years ago. She has never used smokeless tobacco. Donna Mcdermott RN BP Readings from Last 3 Encounters: 08/09/18 (!) 144/64 08/05/18 128/64 01/14/18 (!) 141/83 PRINT MAKER documented in this encounter Plan of Treatment Upcoming Encounters Date Type Specialty Care Team Description 08/13/2022 Appointment Radiology Denise Aguirre APRN, SOFTWARE DEVELOPER INTERN [address] [place], [place] [address] (Wo rk) 08/13/2022 Appointment Hematology and Oncology Denise Aguirre APRN, SOFTWARE DEVELOPER INTERN [address] [place], [place] [address] (Wo rk) documented as [...] Priority Date/Time Associated Diagnosis Comme nts HGB A1C,POINT OF Routine 08/09/2018 1:24 PM Uncontrolled type 2 Results for this CARE BLUEPRINT MAKER diabetes mellitus, procedure are in with long-term the results current use of section. insulin (HRC) documented in this encounter Results Microalb / Creat Ratio (11/21/2018 1:58 PM CDT) [facility] Method Time Signature Albumin, 7.2 mg/L 11/21/2018 [id number] Urine, Random 5:34 PM CDT CENTRAL LAB Creatinine, 118 >20 mg/dL 11/21/2018 [id number] Urine, Random 5:34 PM CDT CENTRAL LAB Albumin/Creati 6 <30 mg/g 11/21/2018 [facility] Ratio, 5:34 PM CDT CENTRAL LAB Urine, Random Specimen Anatomical Collection Method Collection Time Receive d Time (Source) Location / / Volume Laterality Urine,random Non-blood 11/21/2018 1:58 PM 9 1:58 Collection / CDT PM CDT Unknown Manasa Salas MD LAB_1 Performing Organization Address City/State/ZIP Code Phon e Number [employer] CENTRAL LAB [address] [address] (ABNORMAL) HgbA1c (11/21/2018 12:56 PM CDT) [facility] Method Time Signature Hemoglobin A1C 8.3 (H) <=5.6 % 11/21/2018 [facility] 6[facility]37 PM CDT C[facility]AL LAB Specimen Anatomical Collection Method Collection Time Receive d Time (Source) Location / / Volume Laterality Blood 11/21/2018 12:56 11/21/2018 PM CDT 12:56 PM CDT Narrative [facility] - 11/21/2018 6:37 PM CDT For patients not previously diagnosed with diabetes: 5.7-6.4%: Increased risk for diabetes 6.5% and greater: Diagnostic for diabete s For patients diagnosed with diabetes: <8.0%: Goal of therapy for ages 18-75 Clinicians may recommend a higher or low er goal for specific individuals. Manasa Salas MD LAB_1 Performing Organization Address City/State/ZIP Code Phon e Number [facility] [address] [address] (ABNORMAL) Creatinine / GFR (11/21/2018 12:56 PM CDT) [facility] Method Time Signature Creatinine 1.31 (H) 0.55 - 11/21/2018 [facility] 1.02 5:27 PM CDT CENTRAL LAB mg/dL GFR, Estimated 42 (L) >60 11/21/2018 [facility] mL/min/1. 5:27 PM CDT CENTRAL LAB 73m2 GFR, Est If 49 (L) >60 11/21/2018 [facility] mL/min/1. 5:27 PM CDT CENTRAL LAB [place] 73m2 Specimen Anatomical Collection Method Collection Time Receive d Time (Source) Location / / Volume Laterality Blood 11/21/2018 12:56 11/21/2018 PM CDT 12:56 PM CDT Narrative [facility] - 11/21/2018 5:27 PM CDT The National Kidney Disease Education Pr ogram suggests measuring Cystatin C in patients with eGFRcrea of 45 to 59 ml/mi n/1.73^2 who do not have other markers of kidney damage (i.e. elevated urine Album in/Creatinine Ratio or a prior Cystatin C confirming the presence of chronic kidne y disease). Manasa Salas MD LAB_1 Performing Organization Address [facility]/ZIP [facility] Phon e Number [facility] [address] [address] LDL Direct (11/21/2018 12:56 PM CDT) athologist Signature LDL, Direct 94 <=130 11/21/2018 [facility] mg/dL 5:27 PM CDT CENTRAL LAB Specimen Anatomical Collection Method Collection Time Receive d Time (Source) Location / / Volume Laterality Blood 11/21/2018 12:56 11/21/2018 PM CDT 12:56 PM CDT Manasa Salas MD LAB_1 Performing Organization Address [facility] Phon e Number [facility] CENTRAL LAB [address] [address] (ABNORMAL) Hgb A1c, Point of Care (08/09/2018 1:24 PM BLUEPRINT MAKER) [facility] gist Method Time Signature Point of Care 8.2 (H) 4.3 - 5.6 [facility] A[facility]c % LAB[facility]ATORIES Comment: This Rapid A1c test is designed for lindsey toring patients with an established diagnosis o f diabetes mellitus. This rapid method is not suitable to establish the initial diagno sis of diabetes mellitus. Performed using Point [facility] Instrument [facility]. Specimen Anatomical Collection Method Collection Time Receive d Time (Source) Location / / Volume Laterality 08/09/2018 1:24 PM 9 4:47 BLUEPRINT MAKER PM BLUEPRINT MAKER Manasa Salas MD LAB_1 Performing Organization Address City/[facility]/ZIP Code Phon e Number [facility] [phone] documented in this encounter Visit Diagnoses Diagnosis Uncontrolled type 2 diabetes mellitus, w ith long-term current use of insulin - Primary Obesity, morbid, BMI 50 or higher (HRC) Coronary artery disease involving hamilton coronary artery of hamilton heart without angina pectoris (HRC) documented in this encounter Care Teams Software Intern Relationship Specialty Start Date End Date Elyse Paredes MD PCP - General Family Practice 03/19/17 [address] [place], [place] [id number] documented as of this encounter
--- OUTSIDE RECORDS SUMMARY | 2022-07-02 13:56 | XMS_ITS | Encounter Summary ---
:1950 Author Organization [employer] Address [address] [place] [address] Care Team Providers Name Role Phone Elyse Paredes MD Primary Care Provider Reason for Visit Reason Onset Date Comments Refill 04/27/2018 90 day supply/ACCU-C HEK GERALD PLUS test strip Encounter Details Date Type Department Care Team Description 04/27/2018 Refill [facility] 401 Miya Shin MD Refill (90 day Endocrinology Clinic [address] [place] supply/ACCU-CHEK [address] [place] [address] [place] [address] strip) [phone] (Wo rk) Social History Tobacco Use Types Packs/Day Years Used Date Smoking Tobacco: Former Cigarettes Quit : 08/02/1981 Smokeless Tobacco: Never Alcohol Use Standard Drinks/Week Comments No 0 (1 standard drink = 0.6 oz pure alcoho l) Sex Assigned at Date Recorded Not on file documented as of this encounter Nursing Notes Zaida Her, PAYTON - 04/27/2018 2:02 PM CDT Completed per physician's orders. Zaida Her RN 2:02 PM 04/27/2018 . Elda Espinal - 04/27/2018 1:01 PM CDT Requesting a 90 day supply Rx for ACCU-CHEK GERALD PLUS test strip. Qty: 350 Elda Espinal documented in this encounter Plan of Treatment Upcoming Encounters Date Type Specialty Care Team Description 08/13/2022 Appointment Radiology Denise Aguirre, RESTAURANT RECRUITER, WOOD SCALER [address] [place], [place] [address] (Wo rk) 08/13/2022 Appointment Hematology and Oncology Denise Aguirre, RESTAURANT RECRUITER, WOOD SCALER [address] [place], [place] [address] (Wo rk) documented as [...] insulin documented in this encounter Care Teams Engagement Executive Relationship Specialty Start Date End Date Elyse Paredes MD PCP - General Family Practice 03/19/17 [address] [place] [address] documented as of this encounter
--- OUTSIDE RECORDS SUMMARY | 2022-07-02 13:56 | XMS_ITS | Encounter Summary ---
:1950 Author Organization [employer] Address [address] [place] [address] Care Team Providers Name Role Phone Elyse Paredes MD Primary Care Provider Reason for Referral Procedure/Equipment (Routine) - Incomplete Specialty Diagnoses / Procedures Referred By Contact Refer red To Contact Diagnoses Malignant neoplasm of left breast in female, estrogen receptor positive, unspecified site of breast (HRC) Maryellen Beaulieu MD Procedures MM Seed Specimen [address] [place] [address] Referral ID Status Reason Start Date Expiration Date Visits V isits Requested Authorized [id number] Incomplete 08/11/2018 11/10/2019 1 1 ER ROOM ATTENDANT (Routine) - Incomplete Specialty Diagnoses / Procedures Referred By Contact Refer red To Contact Diagnoses Malignant neoplasm of left breast in female, estrogen receptor positive, unspecified site of breast (HRC) Maryellen Beaulieu MD Procedures MM Sent Node Seed Loc WO NM Img Lt [address] [place] [address] Referral ID Status Reason Start Date Expiration Date Visits V isits Requested Authorized [id number] Incomplete 08/11/2018 11/10/2019 6 6 ER ROOM ATTENDANT Encounter Details Date Type Department Care Team Description 08/11/2018 Notes/Orders [facility] Breast Health Maryellen Beaulieu MD Malignant neoplasm of Center [address] left breast in female, [address] [facility] [place] [address] [place], [place] positive, unspecified [phone] site of breast ([facility]) [phone] (Primary Dx) (Work) Social History Tobacco Use [...] Team Description 08/13/2022 Appointment Radiology Denise Aguirre, HALFTONE OPERATOR, HEALTH CARE FACILITIES INSPECTOR [address] [place], [place] [address] (Wo rk) 08/13/2022 Appointment Hematology and Oncology Denise Aguirre, HALFTONE OPERATOR, HEALTH CARE FACILITIES INSPECTOR [address] [place], [place] [address] (Tonio rk) documented as [...] the original. Monitoring My Diabetes: Continue to [facility] k blood sugars before each meal and bedtime. documented as of this encounter Results MM Sent Node Seed Loc WO NM Img Lt (09/16/2018 10:16 AM BLOWER ROOM ATTENDANT) Anatomical Region Laterality Modality Breast Mammography, Nuclear Medicine Specimen (Source) Anatomical Location Collection Method / Collectio n Time Received Time / Laterality Volume Impressions 09/16/2018 10:27 AM BLOWER ROOM ATTENDANT : ?? Sonographically guided left breast radio active seed localization and sentinel lymph node injection. Narrative 09/16/2018 10:27 AM BLOWER ROOM ATTENDANT LEFT BREAST ULTRASOUND GUIDED RADIOACTIV E SEED [...] complica tions. Maryellen Beaulieu MD RAD NM MM Seed Specimen (09/16/2018 9:32 AM BLOWER ROOM ATTENDANT) Anatomical Region Laterality Modality Breast Mammography Specimen (Source) Anatomical Location Collection Method / Collectio n Time Received Time / Laterality Volume Narrative 09/16/2018 1:34 PM BLOWER ROOM ATTENDANT Indication: Breast carcinoma Specimen mammogram demonstrates the area of abnormality (mass and biopsy clip) to be included in the the specimen . The radioactive seed is included in the specimen mammogram. Maryellen Beaulieu MD RAD NILAM documented in this encounter Visit Diagnoses Diagnosis Malignant neoplasm of left breast in fem grey, estrogen receptor positive, unspecified site of breast (HRC) - Primary Malignant neoplasm of left breast in fem grey, estrogen receptor positive, unspecified site of breast (HRC) Malignant neoplasm of left breast in fem grey, estrogen receptor positive, unspecified site of breast (HRC) documented in this encounter Care Teams Sign Poster Relationship Specialty Start Date End Date Elyse Paredes MD PCP - General Family Practice 03/19/17 [address] [place], [place] [id number] documented as of this encounter
--- OUTSIDE RECORDS SUMMARY | 2022-07-02 13:56 | XMS_ITS | Encounter Summary ---
:1950 Author Organization [employer] Address [address] [place] [address] Care Team Providers Name Role Phone Elyse Paredes MD Primary Care Provider Encounter Details Date Type Department Care Team Description 09/09/2017 Scanned History External to Transferred Record, [facility] Provider Social History Tobacco Use Types Packs/Day [...] Team Description 08/13/2022 Appointment Radiology Denise Aguirre, CENTER CUSTOMER SERVICE ASSOCIATE, PRINCIPAL LAW CLERK [address] [place], [place] [address] (Wo rk) 08/13/2022 Appointment Hematology and Oncology Denise Aguirre APRN, PRINCIPAL LAW CLERK [address] [place], [place] [address] (Wo rk) documented as [...] on filedocumented in this encounter Care Teams Communication Arts Lecturer Relationship Specialty Start Date End Date Elyse Paredes MD PCP - General Family Practice 03/19/17 [address] [place] [address] documented as of this encounter
--- OUTSIDE RECORDS SUMMARY | 2022-07-02 13:56 | XMS_ITS | Encounter Summary ---
:1950 Author Organization [email or web address] Address [address] [place] [address] Care Team Providers Name Role Phone Elyse Paredes MD Primary Care Provider Reason for Visit Reason Comments RESULTS, TEST 07/28 left breast biopsy Encounter Details Date Type Department Care Team Description 07/29/2018 Telephone [facility] Clarita Rivas, RESULTS, TEST (07/28 Center GRIFFIN Lofton CNP left breast biopsy) [address] [facility] [address] [place] [address] [place] [address] [phone] (Wo rk) Social History Tobacco Use Types Packs/Day Years Used Date Smoking Tobacco: Former Cigarettes Quit : 08/02/1981 Smokeless Tobacco: Never Alcohol Use Standard Drinks/Week Comments No 0 (1 standard drink = 0.6 oz pure alcoho l) Sex Assigned at Date Recorded Not on file documented as of this encounter Nursing Notes Kirsty Gallegos APRN, CNP - 07/29/2018 1:48 PM CST Phone call to patient with results of left breast biopsy from 07/28 with pathology of invasive ductal carcinoma and ductal carcinoma in situ. Pathology explained, questions answered and support provided. Appointment provided with Dr. Beaulieu for 08/05 at 10:45 am. Patient verbalized understanding. Phone number provided and encouraged to call with further questions. Kirsty Rivas APRN, CNP 07/29/2018, 1:48 PM MILL OPERATOR documented in this encounter Plan of Treatment Upcoming Encounters Date Type Specialty Care Team Description 08/13/2022 Appointment Radiology Densie Aguirre, SOLDERING MACHINE FEEDER, COMMERCIAL LINES ACCOUNT EXECUTIVE [address] [place], [place] [address] (Wo rk) 08/13/2022 Appointment Hematology and Oncology Denise Aguirre, SOLDERING MACHINE FEEDER, COMMERCIAL LINES ACCOUNT EXECUTIVE [address] [place], [place] [address] (Wo rk) documented as [...] on filedocumented in this encounter Care Teams Internship Coordinator Relationship Specialty Start Date End Date Elyse Paredes MD PCP - General Family Practice 03/19/17 [address] [place] [address] documented as of this encounter
--- OUTSIDE RECORDS SUMMARY | 2022-07-02 13:56 | XMS_ITS | Encounter Summary ---
:1950 Author Organization [employer] Address [address] [place] [address] Care Team Providers Name Role Phone Elyse Paredes MD Primary Care Provider Reason for Visit Reason Onset Date Comments Refill 04/26/2018 basaglar kwikpen/acc u-chek plus test strips Encounter Details Date Type Department Care Team Description 04/26/2018 Refill [facility] 401 Fatmata Maddox MD Refill (basaglar [facility] [address] [place] kwikpen/accu-chek [address] plus test strips) [place] [address] [place] [address] [phone] (Wo rk) Social History Tobacco Use Types Packs/Day Years Used Date Smoking Tobacco: Former Cigarettes Quit : 08/02/1981 Smokeless Tobacco: Never Alcohol Use Standard Drinks/Week Comments No 0 (1 standard drink = 0.6 oz pure alcoho l) Sex Assigned at Date Recorded Not on file documented as of this encounter Nursing Notes Zaida Her, PAYTON - 04/27/2018 12:02 PM CDT Refilled per physician orders. Zaida Her RN 04/27/2018, 12:03 PM Interface, Out Surescripts Prov Query - 04/26/2018 10:34 AM CDT ACCU-CHEK LIZBET PLUS test strip Diabetes - Testing Supplies -> Refill x 12 months (maximum allowed) -> Calculate quantity and refills manually. They could not be estimated due to missing or unreadable information. Last qualifying visit: 01/14/2018 (in Endocrinology with FATMATA MADDOX) Next scheduled visit: 07/20/2018 (in Endocrinology with FATMATA MADDOX) Last ordered by FATMATA MADDOX: 03/19/2017 (403 days ago) QTY: 250, Refills: 3, Sig: check fasting/ before meals, and at bedtime, . pharmacy dispense brand based on insurance. (unchanged) Powered by [employer], Reference: [id number], 04/26/2018 10:34:23 AM CDT, Pool: ENDO REFILL RN ([id number]) Elda Espinal - 04/26/2018 10:33 AM CDT Basmagen [place] Last refilled: 03/09/18 Dispense amount of last refill: 30 Accu-chek lizbet plus test strips Last refilled: 01/16/18 Dispense amount of last refill: 250 Elda Espinal documented in this encounter Plan of Treatment Upcoming Encounters Date Type Specialty Care Team Description 08/13/2022 Appointment Radiology Denise Aguirre, OPERATIONS ADVISOR, TOILET ATTENDANT [address] [place], [place] [address] (Wo rk) 08/13/2022 Appointment Hematology and Oncology Denise Aguirre, GRIFFIN, TOILET ATTENDANT [address] [place], [place] [address] (Wo rk) documented [...] insulin documented in this encounter Care Teams Supervisor Throwing Department Relationship Specialty Start Date End Date Elyse Paredes MD PCP - General Family Practice 03/19/17 [address] [place] [address] documented as of this encounter
--- OUTSIDE RECORDS SUMMARY | 2022-07-02 13:56 | XMS_ITS | Encounter Summary ---
:1950 Author Organization [email or web address] Address [address], [place] [address] Care Team Providers Name Role Phone Elyse Paredes MD Primary Care Provider Reason for Visit Reason Comments Revisit diabetes Encounter Details Date Type Department Care Team Description 01/14/2018 Office Visit Specialty Center Miya Shin Un[facility] ontrolled type 2 401 Endocrinology diabetes mellitus Clinic [address] without [address] complication, [place] [address] [place] [address] long-term current [phone] (Wo rk) use of insulin (HRC) (Primary Dx) Social History Tobacco Use Types Packs/Day Years Used Date Smoking Tobacco: Former Cigarettes Quit : 08/02/1981 Smokeless Tobacco: Never Alcohol Use Standard Drinks/Week Comments No 0 (1 standard drink = 0.6 oz pure alcoho l) Sex Assigned at Date Recorded Not on file documented as of this encounter Last Filed Vital Signs Vital Sign Reading Time Taken Comments Blood Pressure 141/83 01/14/2018 11:37 AM CDT Pulse 50 01/14/2018 11:37 AM CDT Temperature - - Respiratory Rate - - Oxygen Saturation - - Inhaled Oxygen Concentration - - Weight 131.2 kg (289 lb 3.2 oz) 01/14/2018 11:37 AM CDT Height - - Body Mass Index 52.9 06/17/2017 3:10 PM GATE TENDER documented in this encounter Patient Instructions Patient InstructionsMiya Shin MD - 01/14/2018 11:00 AM CDT Images from the original note were not included. Plan: Results Communication: (please note that if you chose the online / mychart option I'm assuming that you will look there for result communications and I won't send a letter or call) phone call and MyChart 1. Basaglar 30 units / inj x 2 in AM, total of 60 units. Then follow the fasting BGs , AM, or beforedinner, and if they are still > 130-140, then increase the Basaglar by another 2-3 units. Then watch again for week..... 2. If you have a more than 2-3 fasting sugars less than 90, then decrease the Basaglar. 3. But never adjust the dose based on any one BG reading. 4. Avoid night snacks. 5. Start on Trulicity 0.75 mg dose pen, Weekly. Then increase to 1.5 mg / week. 6. Humalog dose, for now , remains the same. But PLEASE check 2 hours after a meal, lunch, to ensurethat the BG is not too low (if you have frequent BGs at 2 hours post bon that are < 100, then reduce the Humalog). If you are at the max Trulicity dose , 1.5 mg, and your post meal is still > 150, then increase the Humalog dose for the food . 7. Once the basal insulin dose is idea, you give the basal insulin and could fast all day and never go low or high, then you can cigar wrapper tender automatic the Humalog dose. Now you are introducing the Trulicity also. Can't really cigar wrapper tender automatic the humalog dose ( ratio to carb gram) until the Trulicity is at max, and basaglar is adjusted , so your fasting sugars are between 90-130. Miya Shin MD Endocrinology, [facility] 01/14/2018 , 12:14 PM LAB / TEST RESULTS Please allow 5-7 days for the online comments about your results to be sent. Although you will see them right away thru the email, my comments may lag behind if there is no emergency to address. FOLLOW UP INSTRUCTIONS: Please deactivate OPS if not using >>> Future Clinic visit : 6 m >>> Labs: Today : NO Future: YES before next visit >>> Radiology: NA >>> Referrals : NA Helpful phone numbers: [facility]: [address] [facility] ?? For appointments call: [phone] ?? For question call our nurses at [phone] Care Line (after 5 PM, weekends and holidays): [phone] [facility]: [address] [place], [place] ?? For appointments call: [phone], ?? For question call our nurses at [phone] Care Line (after 5 PM, weekends and holidays): [phone] Mail order pharmacy: [phone] or For lab only appointments (Daily 7 a.m.-9 p.m.): [phone], or [phone] at [facility] TEST RESULTS: I will communicate my interpretation of your lab results with you per your preference.However, given the volume of labs, I may not get back to you for up to 2 weeks even though you can see the results in the computer. If there are any abnormal concerns my nurse will alert me MARINO. If you have further questions or have not heard back by 10 days contact me. If you have Diabetes and have a blood sugar meter or insulin pump, please arrive early to allow download of the machine for review during your visit. Get Cost of Care Estimates - [phone] PRIOR APPROVAL OF MEDICATIONS BY INSURANCE : If you have not heard about the status of your medication within 3 business days, please call us at [phone]. documented in this encounter Progress Notes Jacquelyn Matos RN - 01/14/2018 5:14 PM CDT Discussed at office visit on 01/14/2018 Jacquelyn Matos, PAYTON 01/14/2018, 5:14 PM Miya Shin MD - 01/14/2018 11:00 AM CDT Images from the original note were not included. Endocrine Diabetes Mellitus PN Date of Service: 01/14/2018 Soaking Pits Supervisor: Miya Shin MD Subjective Marci Diaz is a 67 y.o. yr old female who is here for follow up of Type 2 Diabetes Mellitus Has retired recently. Last March was told that she needed to have a heart valve replacement. But noted that she needed tohave a stent. Then had a kidney stone. Then abscess tooth, then Atrial Fib, and on Amiodarone. With persistent recurrences of A. Fib. Current regimen : Novolog 10-15 units / meal, with a base of 6-7 for food. Basaglar : 50 units in AM(given in 2) BP: well controlled Lipids: crestor . No side effects ASA use: on Plavix , with stent A1C goal : less than 8%, ideally < 7, but if no lows. Tobacco use: no ?? No chest pain, leg cramps / claudication, SOB, FRED, or foot / skin ulcers. No numbness , or pain in extremities. Assessment and Plan: 1. Uncontrolled type 2 diabetes mellitus without complication, with long-term current use of insulin(HRC) Plan: Patient Instructions Plan: Results Communication: (please note that if you chose the online / mychart option I'm assuming that you will look there for result communications and I won't send a letter or call) phone call and MyChart 1. Basaglar 30 units / inj x 2 in AM, total of 60 units. Then follow the fasting BGs , AM, or beforedinner, and if they are still > 130-140, then increase the Basaglar by another 2-3 units. Then watch again for week..... 2. If you have a more than 2-3 fasting sugars less than 90, then decrease the Basaglar. 3. But never adjust the dose based on any one BG reading. 4. Avoid night snacks. 5. Start on Trulicity 0.75 mg dose pen, Weekly. Then increase to 1.5 mg / week. 6. Humalog dose, for now , remains the same. But PLEASE check 2 hours after a meal, lunch, to ensurethat the BG is not too low (if you have frequent BGs at 2 hours post bon that are < 100, then reduce the Humalog). If you are at the max Trulicity dose , 1.5 mg, and your post meal is still > 150, then increase the Humalog dose for the food . 7. Once the basal insulin dose is idea, you give the basal insulin and could fast all day and never go low or high, then you can cigar wrapper tender automatic the Humalog dose. Now you are introducing the Trulicity also. Can't really cigar wrapper tender automatic the humalog dose ( ratio to carb gram) until the Trulicity is at max, and basaglar is adjusted , so your fasting sugars are between 90-130. Parameters in DM Guidelines Recent Result A1c Point of Care A1c (%) Date Value 06/17/2017 9.1 (H) Blood Pressure BP Readings from Last 1 Encounters: 01/14/18 (!) 141/83 LDL No results found for: LDL Tobacco use reports that she quit smoking about 36 years ago. She has never used smokeless tobacco. Aspirin Taking Aspirin? yes Renal function Creatinine (mg/dl) Date Value 03/19/2017 0.98 Eye: Eye Exam Done : UTD Specialty Problems Endocrinology Uncontrolled type 2 diabetes mellitus, with long-term current use of insulin (HRC) Uncontrolled type 2 diabetes mellitus with hyperosmolarity without coma, with long-term current useof insulin (HRC) Uncontrolled type 2 diabetes mellitus without complication, with long-term current use of insulin (HRC) PMHx/SH/FH/Meds/Allergies are reviewed and updated Review of Systems Please see HPI for pertinent positive and negatives of ROS. The remainder of the ten point ROS was negative. Current Outpatient Prescriptions (Antidiabetic) Medication Sig Dispense Refill ??? dulaglutide (TRULICITY) 1.5 MG/0.5ML injeciton pen Inject 0.5 mL subcutaneously once a week. 6 mL 3 ??? insulin glargine (BASAGLAR) 100 UNIT/ML KWIKPEN 50 units in AM ( give in 2 separate injections of 25 units at the same time) 30 mL 6 ??? metFORMIN XR (GLUCOPHAGE XR) 500 MG 24 hour release tablet Take 4 Tabs by mouth daily with breakfast. (Patient not taking: Reported on 01/14/2018) 360 Tab 3 Current Outpatient Prescriptions (Other) Medication Sig Dispense Refill ??? ACCU-CHEK GERALD PLUS test strip Check fasting / before meals, and at bedtime, . Pharmacy dispense brand based on insurance. 250 Strip 3 ??? amiodarone (PACERONE) 200 MG tablet Take 200 mg by mouth daily. ??? aspirin, enteric-coated 81 MG enteric coated tablet Take 1 Tab by mouth daily. 90 Tab 3 ??? B-D UF III MINI PEN NEEDLES 31G X 5 MM needle 4-5 times daily. 100 Each PRN ??? celecoxib (CELEBREX) 200 MG capsule 1 Cap daily. 90 Cap 1 ??? clopidogrel (PLAVIX) 75 MG tablet Take 1 Tab by mouth daily. 90 Tab 3 ??? famotidine (PEPCID) 10 MG tablet Take 10 mg by mouth. ??? losartan (COZAAR) 50 MG tablet ??? metoprolol tartrate (LOPRESSOR) 25 MG tablet Take 25 mg by mouth daily. ??? rosuvastatin (CRESTOR) 10 MG tablet Take 1 Tab by mouth daily. 90 Tab 3 ??? sertraline (ZOLOFT) 100 MG tablet Take 1/2 tab daily Physical Examination BP (!) 141/83 Pulse (!) 50 Wt 289 lb 3.2 oz (131.2 kg) BMI 52.9 kg/m2 Estimated body mass index is 52.9 kg/(m^2) as calculated from the following: Height as of 06/17/17: 5' 2 (1.575 m). Weight as of this encounter: 289 lb 3.2 oz (131.2 kg). General: Appears stated age, alert and comfortable Heart: regular rate and rhythm, normal S1 and S2 without murmur or click Lung: clear to auscultation, no wheezes or rales Edema: Absent Feet: normal: pulses intact, skin intact, monofilament 5 pts/foot intact; biomechanics normal. Labs: Reviewed in the EMR I spent >30 minutes with patient, over 50% of which was spent discussing the blood glucose patterns, avoidance of low BGs, new dosing ideas and adjustment of medications as noted in the plan of care. Miya Shin MD Endocrinology, [facility] 01/14/2018 , 12:14 PM Electronically Signed by Miya Shin MD This note was partly transcribed using [employer] voice recognition software, and may contain unintentional word substitutions or other mushroom cutter errors. documented in this encounter Nursing Notes Hi Pereira - 01/14/2018 11:00 AM CDT Patient is here for diabetes How many time BS checked in a day: 2-4 Did patient bring log book? yes Medication list updated? Yes ASA: No BP Readings from Last 3 Encounters: 01/14/18 (!) 141/83 06/17/17 118/83 03/19/17 (!) 167/93 Point of Care A1c (%) Date Value 06/17/2017 9.1 (H) No results found for: LDL Tobacco Usage: reports that she quit smoking about 36 years ago. She has never used smokeless tobacco. Surya Avendano documented in this encounter Plan of Treatment Upcoming Encounters Date Type Specialty Care Team Description 08/13/2022 Appointment Radiology Denise Aguirre, CATERING MANAGER, CHINESE HERBALIST [address] [place], [place] [address] (Wo rk) 08/13/2022 Appointment Hematology and Oncology Denise Aguirre CATERING MANAGER, CHINESE HERBALIST [address] [place], [place] [address] (Wo rk) documented as [...] Diagnosis Comme nts HGB A1C,POINT OF Routine 01/14/2018 11:18 Uncontrolled type 2 Results for this CARE AM CDT diabetes mellitus procedure are in without complication, the re sults with long-term section. current use of insulin (HRC) documented in this encounter Results (ABNORMAL) Hgb A1c, Point of Care (01/14/2018 11:18 AM CDT) [facility] gist Method Time Signature Point of Care 8.7 (H) 4.3 - 5.6 [facility] Comment: See (NOTE) For patients not previously diagnosed wi th diabetes: 5.7-6.4%: Increased risk for diabetes (p rediabetic) 6.5% and greater: Diagnostic for diabete s ?? For diabetic patients: <8.0%: Goal of therapy for ages 18-75 - physicians may recommend a higher or lower goal for specific indiv iduals Performed using Point of Care Instrument ation. Specimen Anatomical Collection Method Collection Time Receive d Time (Source) Location / / Volume Laterality 01/14/2018 11:18 01/14/2018 4:47 AM CDT PM CDT Miya Shin MD LAB_1 Performing Organization Address City/State/ZIP Code Phon e Number [facility] [phone] documented in this encounter Visit Diagnoses Diagnosis Uncontrolled type 2 diabetes mellitus wi thout complication, with long-term current use of insulin - Primary documented in this encounter Care Teams Pe[employer]oft Business Analyst Relationship Specialty Start Date End Date Elyse Paredes MD PCP - General Family Practice 03/19/17 [address] [place] [address] documented as of this encounter
--- OUTSIDE RECORDS SUMMARY | 2022-07-02 13:56 | XMS_ITS | Encounter Summary ---
:1950 Author Organization [employer] Address [address] [place] [address] Care Team Providers Name Role Phone Elyse Paredes MD Primary Care Provider Reason for Visit Reason Comments Surgery Scheduling Encounter Details Date Type Department Care Team Description 08/10/2018 [facility] Sa ra Dora Bishop magistrate assistant Scheduling Center [address] [place] [address] [place] [address] [phone] Social History Tobacco Use Types Packs/Day Years Used Date Smoking Tobacco: Former Cigarettes Quit : 08/02/1981 Smokeless Tobacco: Never Alcohol Use Standard Drinks/Week Comments No 0 (1 standard drink = 0.6 oz pure alcoho l) Sex Assigned at Date Recorded Not on file documented as of this encounter Nursing Notes Natalia Bishop RN - 08/10/2018 2:41 PM CST Patient contacted the [facility] to let us know that she has made a decision on her surgery for left breast cancer. Patient would like to proceed with a partial mastectomy. Dr. Beaulieu notified. Will contact patient to schedule when surgical orders have been placed. Patient agrees with plan. Natalia Bishop RN 08/10/2018, 2:42 PM CINE AIDE documented in this encounter Plan of Treatment Upcoming Encounters Date Type Specialty Care Team Description 08/13/2022 Appointment Radiology Denise Aguirre, TRAIN STATION SERVER, ORTHOPAEDIC SURGEON [address] [place], [place] [address] (Wo rk) 08/13/2022 Appointment Hematology and Oncology Denise Aguirre, TRAIN STATION SERVER, ORTHOPAEDIC SURGEON [address] [place], [place] [address] (Tonio sorenson) documented as [...] on filedocumented in this encounter Care Teams Cooker Sulfate Relationship Specialty Start Date End Date Elyse Paredes MD PCP - General Family Practice 03/19/17 [address] [place] [address] documented as of this encounter
--- OUTSIDE RECORDS SUMMARY | 2022-07-02 13:56 | XMS_ITS | Encounter Summary ---
:1950 Author Organization [email or web address] Address [address] [place] [address] Care Team Providers Name Role Phone Elyse Paredes MD Primary Care Provider Encounter Details Date Type Department Care Team Description 08/05/2018 Consent for [facility] RH I-125 RADIOACTIVE Procedure/Treatment SEED WRI TTEN DIRECTIVE Social History Tobacco Use Types Packs/Day Years [...] Team Description 08/13/2022 Appointment Radiology Denise Aguirre, FLOOR ASSEMBLER, BULLDOZER OPERATOR [address] [place], [place] [address] (Wo rk) 08/13/2022 Appointment Hematology and Oncology Denise Aguirre APRN, BULLDOZER OPERATOR [address] [place], [place] [address] (Wo rk) documented as [...] on filedocumented in this encounter Care Teams Occupational Therapy Manager Relationship Specialty Start Date End Date Elyse Paredes MD PCP - General Family Practice 03/19/17 [address] [place] [address] documented as of this encounter
--- OUTSIDE RECORDS SUMMARY | 2022-07-02 13:57 | XMS_ITS | Encounter Summary ---
:1950 Author Organization [employer] Address [address] [place] [address] Care Team Providers Name Role Phone Elyse Paredes MD Primary Care Provider Encounter Details Date Type Department Care Team Description 03/19/2017 Lab Visit Specialty Center Uncontro lled diabetes Laboratory mellitus type [address] complications, [place] [address] long-term insulin use status [phone] ([facility]) Social History Tobacco Use Types Packs/Day Years Used Date Smoking Tobacco: Former Cigarettes Quit : 08/02/1981 Smokeless Tobacco: Never Alcohol Use Standard Drinks/Week Comments No 0 (1 standard drink = 0.6 oz pure alcoho l) Sex Assigned at Date Recorded Not on file documented as of this encounter Progress Notes Donna Mcdermott RN - 03/24/2017 2:04 PM CDT See telephone encounter. Donna Mcdermott RN Tabatha Londono RN - 03/22/2017 12:09 PM CDT Released to OPS. Tabatha Londono RN 03/22/2017, 12:09 PM documented in this encounter Plan of Treatment Upcoming Encounters Date Type Specialty Care Team Description 08/13/2022 Appointment Radiology Denise Aguirre, BUSINESS SERVICES INTERN, COTTON WEIGHER OPERATOR [address] [place] [phone] (Wo rk) 08/13/2022 Appointment Hematology and Oncology Denise Aguirre, BUSINESS SERVICES INTERN, COTTON WEIGHER OPERATOR [address] [address] (Wo delta) documented as of this encounter Procedures Procedure Name Priority Date/Time Associated Diagnosis Comme nts ALBUMIN/CREAT RATIO Routine 03/19/2017 2:16 Uncontrolled Resul ts for this PM CDT diabetes mellitus procedure are in type 2 without the results complications, section. unspecified long-term insulin use status (HRC) ISLET CELL IGG Routine 03/19/2017 1:51 Uncontrolled Results fo r this ANTIBODY PM CDT diabetes mellitus procedure are in type 2 without the results complications, section. unspecified meterman insulin use status (HRC) INSULIN ANTIBODIES Routine 03/19/2017 1:51 Uncontrolled Result s for this PANEL PM CDT diabetes mellitus procedure are in type 2 without the results complications, section. unspecified meterman insulin use status (HRC) GLUTAMIC ACID Routine 03/19/2017 1:51 Uncontrolled Results for this DECARBOXYLASE ANTIBODY PM CDT diabetes mellitus procedure are in type 2 without the results complications, section. unspecified long-term insulin use status (HRC) C-PEPTIDE, SERUM Routine 03/19/2017 1:51 Uncontrolled Results for this PM CDT diabetes mellitus procedure are in type 2 without the results complications, section. unspecified meterman insulin use status (HRC) TSH, SENSITIVE Routine 03/19/2017 1:51 Uncontrolled Results fo r this PM CDT diabetes mellitus procedure are in type 2 without the results complications, section. unspecified long-term insulin use status (HRC) BASIC METABOLIC PANEL Routine 03/19/2017 1:51 Uncontrolled Res ults for this PM CDT diabetes mellitus procedure are in type 2 without the results complications, section. unspecified meterman insulin use status (HRC) FREE T4 Routine 03/19/2017 1:51 Uncontrolled Results for this PM CDT diabetes mellitus procedure are in type 2 without the results complications, section. unspecified meterman insulin use status (HRC) documented in this encounter Results (ABNORMAL) Microalb / Creat Ratio (03/19/2017 2:16 PM CDT) [facility] Method Time Signature Albumin, 108.1 mg/L [facility] Urine, Random LAB[facility]ATOR[facility] Creatinine,Ur 172 mg/dl [facility] Alb/Creat 63 (H) <30 mg/g [facility] Ratio, Urine, creatinine LAB[facility]ATORIES Random Specimen Anatomical Collection Method Collection Time Receive d Time (Source) Location / / Volume Laterality Urine specimen 03/19/2017 2:16 PM 017 2:21 (specimen) CDT PM CDT Narrative [facility] - 03/19/2017 7:52 PM C DT Performed at [address] ??[address] Miya Shin MD LAB_1 Performing Organization Address City/[facility] Phon e Number [facility] [phone] Basic Metabolic Panel (03/19/2017 1:51 PM CDT) Analysis Performed At Patho logist Time Signature Sodium 141 136 - 145 [facility] mmol/L LAB[facility] Potassium 4.0 3.5 - 5.1 [facility] mmol/L [facility] Chloride 105 98 - 109 [facility] mmol/L [facility] CO2 26 20 - 29 [facility] mmol/L [facility] Anion Gap 10 7 - 16 [facility] (calc.) mmol/L [facility] Glucose 105 70 - 180 [facility] mg/dl [facility] Calcium 10.2 8.4 - 10.2 [facility] mg/dl [facility] BUN 21 7 - 26 [facility] mg/dl [facility] Creatinine 0.98 0.55 - [facility] 1.02 mg/dl LAB[facility] GFR, Estimated >60 >60 [facility] ml/min/1.7 LAB[facility] 3m2 GFR, Est., If >60 >60 [facility] Black ml/min/1.7 LAB[facility]IES 3m2 Specimen Anatomical Collection Method Collection Time Receive d Time (Source) Location / / Volume Laterality 03/19/2017 1:51 PM 7 1:56 CDT PM CDT Narrative [facility] - 03/19/2017 7:44 PM C DT Performed at [address] ??[address] Miya Shin MD LAB_1 Performing Organization Address City/[facility] Phon e Number [facility] [phone] Free T4 (03/19/2017 1:51 PM CDT) P athologist Signature T4, Free 0.9 0.7 - 1.5 [facility] ng/dl Specimen Anatomical Collection Method Collection Time Receive d Time (Source) Location / / Volume Laterality 03/19/2017 1:51 PM 7 1:56 CDT PM CDT Narrative [facility] - 03/19/2017 8:02 PM C DT Performed at [address] ??[address] Miya Shin MD LAB_1 Performing Organization Address [facility] Phon e Number [facility] [phone] TSH (03/19/2017 1:51 PM CDT) athologist Signature TSH, Sensitive 2.72 0.30 - [facility] 4.50 [facility] uIU/ml Specimen Anatomical Collection Method Collection Time Receive d Time (Source) Location / / Volume Laterality 03/19/2017 1:51 PM 7 1:56 CDT PM CDT Narrative [facility] - 03/19/2017 8:02 PM C DT Performed at [facility], [address] [place] [address] Miya Shin MD LAB_1 Performing Organization Address [facility] Phon e Number [facility] [phone] Insulin Antibodies Panel (03/19/2017 1:51 PM CDT) Component Value Ref Test Analysis Performed At [facility] Range Method Time Signature Insulin <0.4 [facility] Antibodies Reference range: 0.0 to 0.4 L [facility]ORATORIES Unit: U/mL Insulin (NOTE) [facility] Antibodies INTERPRETIVE INFORMATION: Insulin Antibody LABORATORIES This assay quantitatively measures human serum autoantibodie s to ?? endogenous insulin or antibodies to exogenous insulin. ??A v alue of ?? greater than 0.4 Kronus Units/mL is considered positive for ?? Insulin Antibody. Kronus Units are arbitrary. Kronus Units = U/mL [address] [facility] [address] [email or web address], Yves Hopper MD, Lab. Director Specimen Anatomical Collection Method Collection Time Receive d Time (Source) Location / / Volume Laterality 03/19/2017 1:51 PM 7 1:55 CDT PM CDT Narrative [facility] - 03/22/2017 5:24 PM C DT Performed by [facility], [address] [place], [place] [address] Miya Shin MD LAB_1 Performing Organization Address [facility] Phon e Number [facility] [phone] Islet Cell IGG Antibody (03/19/2017 1:51 PM CDT) Component Value Ref Test Analysis Performed At [facility] Range Method Time Signature Islet Cell <1:4 [facility] Antibody Reference range: <1:4 LABORATO DORIS Islet Cell (NOTE) [facility] Antibody INTERPRETIVE INFORMATION: Islet Cell Ab, IgG LABORATORIES Islet cell antibodies (ICAs) are associated with type 1 diab etes ?? (TID), an autoimmune endocrine disorder. ICAs may be present years ?? before the onset of clinical symptoms. To calculate Juvenile ?? Diabetes Foundation (JDF) units: multiply the titer x 5 (1:8 ??8 x ?? 5 = 40 JDF Units). Test developed and characteristics determined by [facility]. See Compliance Statement A: [employer]/ [address] [place] [address] [email or web address], Yves Hopper MD, Lab. Director Specimen Anatomical Collection Method Collection Time Receive d Time (Source) Location / / Volume Laterality 03/19/2017 1:51 PM 7 1:55 CDT PM CDT Narrative [facility] - 03/20/2017 7:40 PM C DT Performed by [facility], [address]ir[address] mani [place], [place] [address] Miya Shin MD LAB_1 Performing Organization Address [facility] Phon e Number [facility] [phone] C-Peptide, Serum or Plasma (03/19/2017 1:51 PM CDT) [facility] Method Time Signature C-Peptide 1.1 [facility] Reference range: 0.8 to 3.5 [facility] Unit: ng/mL C-Peptide (NOTE) [facility] INTERPRETIVE INFORMATION: C-Peptide, Serum or Plasma LABORATORIES Reference Interval applies to fasting specimens. To convert to ?? nmol/L, multiply by 0.33 [address] [place] [address] www.[email or web address], Yves Hopper MD, Lab. Director Specimen Anatomical Collection Method Collection Time Receive d Time (Source) Location / / Volume Laterality 03/19/2017 1:51 PM 7 1:55 CDT PM CDT Narrative [facility] - 03/20/2017 1:10 PM C DT Performed by [facility], [address] [place], [place] [address] Miya Shin MD LAB_1 Performing Organization Address City/[facility] Code Phon e Number [facility] [phone] Glutamic Acid Decarboxylase Antibody (03/19/2017 1:51 PM CDT) Component Value Ref Test Analysis Performed At [facility] Range Method Time Signature Glutamic Acid <5.0 [facility] Decarboxylase Reference range: 0.0 to 5.0 LABORATORIES Antibody Unit: IU/mL Glutamic Acid (NOTE) [facility] Decarboxylase INTERPRETIVE INFORMATION: ??Glutamic Acid Decarb oxylase Antibody LABORATORIES Antibody A value greater than 5.0 IU/mL is considered pos itive for Glutamic ?? Acid Decarboxylase Antibody. [address] [place] [address] www.[email or web address], Yves Hopper MD, Lab. Director Specimen Anatomical Collection Method Collection Time Receive d Time (Source) Location / / Volume Laterality 03/19/2017 1:51 PM 7 1:55 CDT PM CDT Narrative [facility] - 03/21/2017 4:16 PM C DT Performed by [facility], [address] [place], [place] [address] Miya Shin MD LAB_1 Performing Organization Address City/[facility] Phon e Number [facility] [phone] documented in this encounter Visit Diagnoses Diagnosis Uncontrolled diabetes mellitus type 2 wi thout complications, unspecified meterman insulin use status documented in this encounter Care Teams Clerical Specialist Relationship Specialty Start Date End Date Elyse Paredes MD PCP - General Family Practice 03/19/17 [address] [place] [address] documented as of this encounter
--- OUTSIDE RECORDS SUMMARY | 2022-07-02 13:57 | XMS_ITS | Encounter Summary ---
:1950 Author Organization [employer] Address [address], [place] [address] Care Team Providers Name Role Phone Elyse Paredes MD Primary Care Provider Reason for Visit Reason Comments RESULTS, TEST Encounter Details Date Type Department Care Team Description 03/24/2017 Telephone Specialty Center 401 Miya Shin MD RESULTS, TEST Endocrinology Clinic [address] [place] [address] [place] [address] [phone] (Wo rk) Social History Tobacco Use Types Packs/Day Years Used Date Smoking Tobacco: Former Cigarettes Quit : 08/02/1981 Smokeless Tobacco: Never Alcohol Use Standard Drinks/Week Comments No 0 (1 standard drink = 0.6 oz pure alcoho l) Sex Assigned at Date Recorded Not on file documented as of this encounter Nursing Notes Donna Mcdermott RN - 03/25/2017 8:48 AM CDT Released the recommendations to patient online. Donna Mcdermott RN 03/25/2017, 8:52 AM Miya Shin MD - 03/24/2017 5:04 PM CDT Labs are consistent with type 2 DM. Kidney / urine protein result shows evidence of damage to the kidney filtration . Need to have excellent BP and Gluc control. Follow up with the recommendations discussed at the visit. Miya Shin MD Endocrinology, [facility] 03/24/2017 , 5:06 PM This note was at least partially transcribed using [employer] voice recognition software, and may contain unintentional word substitutions or other skin care specialist errors. Donna Mcdermott RN - 03/24/2017 2:01 PM CDT Component Latest Ref Rng & Units 03/19/2017 1:51 PM Sodium 136 - 145 mmol/L 141 Potassium 3.5 - 5.1 mmol/L 4.0 Chloride 98 - 109 mmol/L 105 CO2 20 - 29 mmol/L 26 Anion Gap (calc.) 7 - 16 mmol/L 10 Glucose 70 - 180 mg/dl 105 Calcium 8.4 - 10.2 mg/dl 10.2 BUN 7 - 26 mg/dl 21 Creatinine 0.55 - 1.02 mg/dl 0.98 GFR, Estimated >60 ml/min/1.73m2 >60 GFR, Est., If Black >60 ml/min/1.73m2 >60 TSH, Sensitive 0.30 - 4.50 uIU/ml 2.72 T4, Free 0.7 - 1.5 ng/dl 0.9 Component Latest Ref Rng & Units 03/19/2017 03/19/2017 03/19/2017 03/19/2017 2:16 PM 1:51 PM 1:51 PM 1:51 PM Microalbumin, Ur Random mg/L 108.1 Creatinine,Ur Random mg/dl 172 Ratio <30 mg/g creatinine 63 (H) Component Latest Ref Rng & Units 03/19/2017 03/19/2017 03/19/2017 03/19/2017 1:51 PM 1:51 PM 1:51 PM 1:51 PM C-Peptide (NOTE) . . . 1.1 . . . Component Latest Ref Rng & Units 03/19/2017 1:51 PM Glutamic Acid Decarb Ab <5.0 . . . Component Latest Ref Rng & Units 03/19/2017 03/19/2017 03/19/2017 2:16 PM 1:51 PM 1:51 PM INSULIN ANTIBODIES (NOTE) . . . <0.4 . . . Please advise. Donna Mcdermott RN 03/24/2017, 2:03 PM documented in this encounter Plan of Treatment Upcoming Encounters Date Type Specialty Care Team Description 08/13/2022 Appointment Radiology Denise Aguirre APRN, INNER LAYER SCRUBBER TENDER [address] [place], [place] [address] (Wo rk) 08/13/2022 Appointment Hematology and Oncology Denise Aguirre APRN, INNER LAYER SCRUBBER TENDER [address] [place], [place] [address] (Wo rk) documented as of this encounter Visit Diagnoses Not on filedocumented in this encounter Care Teams Governor Assembler Relationship Specialty Start Date End Date Elyse Paredes MD PCP - General Family Practice 03/19/17 [address] [place] [address] documented as of this encounter
--- OUTSIDE RECORDS SUMMARY | 2022-07-02 13:57 | XMS_ITS | Encounter Summary ---
:1950 Author Organization [employer] Address [address] [place] [address] Care Team Providers Name Role Phone Elyse Paredes MD Primary Care Provider Encounter Details Date Type Department Care Team Description 09/09/2017 Telephone Specialty Center 401 Gabrielle Morris APRN, Endocrinology Clinic [facility] [address] [place] [address] [place] [address] [phone] (Wo rk) Social History Tobacco Use Types Packs/Day Years Used Date Smoking Tobacco: Former Cigarettes Quit : 08/02/1981 Smokeless Tobacco: Never Alcohol Use Standard Drinks/Week Comments No 0 (1 standard drink = 0.6 oz pure alcoho l) Sex Assigned at Date Recorded Not on file documented as of this encounter Nursing Notes Donna Mcdermott RN - 09/10/2017 1:37 PM CST The special services coordinator called back and was notified of the recommendations. She is going to follow up with the patient and send the blood sugar to Endocrinology. Donna Mcdermott RN 09/10/2017, 1:39 PM Donna Jha RN - 09/10/2017 12:59 PM CST Left a message for Jeri the nurse to call back. Donna Mcdermott RN Gabrielle Pandey APRN, SELF RISING FLOUR MIXER - 09/10/2017 12:41 PM CST Noted. Atrial fibrillation after cardioversion; see transfer records. At 06/17/2017 office visit, patient's preference was to discontinue mealtime insulin due to subjective weight gain and restart metformin and GLP-1 Agonist; metformin extended release and Trulicity 0.75mg weekly were prescribed. She has had GI side effects with medications in the past. Per Carbonation Tester notes dated 08/11/2017, patient hesitant to start any new medications; at that visit, diabetes medications were: ?? Basaglar 60 units (two 30 unit injections) each morning ?? Novolog 10 units tid ac plus correction scale of 1 unit per 50 >150 Plan: ?? Continue current diabetes medication regimen at this time ?? Defer change to new regimen until patient feels confident in doing so ?? Please obtain blood sugar readings from the past few weeks ?? Please keep scheduled appointment with Dr. Shin on 11/03/2017 Thank you. Gabrielle Morris APRN, SITE PROJECT MANAGER-C 09/10/2017 12:53 PM Donna Jha RN - 09/10/2017 9:11 AM CST Jeri the PCP managed care director called back to discuss this patient starting Trulicity or Metformin. The patient had complications with her heart surgery so she hasn't started either medication at thispoint. Records were received [facility] and placed on providers desk for review. Donna Mcdermott RN 09/10/2017, 9:19 AM Donna Jha RN - 09/10/2017 8:59 AM CST Left a message for the nurse Jeri to call back. Donna Mcdermott RN Randee Raya - 09/09/2017 3:15 PM CST Jeri the special services coordinator calling because patient hasn't started metformin or trulicity because ofcomplications from Surgery and patient wanting to try Trulicity and wanting to know if can start or wait because patient has been going in and out of Afib.Jeri will fax last office note. Randee Vang DRAGGER documented in this encounter Plan of Treatment Upcoming Encounters Date Type Specialty Care Team Description 08/13/2022 Appointment Radiology Denise Aguirre, COOK STARCH, SELF RISING FLOUR MIXER [address] [place], [place] [address] (Wo rk) 08/13/2022 Appointment Hematology and Oncology Denise Aguirre, COOK STARCH, SELF RISING FLOUR MIXER [address] [place], [place] [address] (Wo rk) [...] on filedocumented in this encounter Care Teams Newspaper Correspondent Relationship Specialty Start Date End Date Elyse Paredes MD PCP - General Family Practice 03/19/17 [address] [place] [address] documented as of this encounter
--- OUTSIDE RECORDS SUMMARY | 2022-07-02 13:57 | XMS_ITS | Encounter Summary ---
:1950 Author Organization [facility] Address [address] [place] [address] Care Team Providers Name Role Phone Unassigned, Provider Primary Care Provider Unavailable Encounter Details Date Type Department Care Team Description 11/23/2002 Office Visit External to Unknown, [facility] [address] [place], [place] [address] (Wo rk) Social History Tobacco Use Types Packs/Day Years Used Date Smoking Tobacco: Never Assessed Sex Assigned at Date Recorded Not on file documented as of this encounter Procedure Notes Unknown, Physician - 11/23/2002 12:00 AM CDTAssociated Order(s): MAMMOGRAM SC documented in this encounter Plan of Treatment Upcoming Encounters Date Type Specialty Care Team Description 08/13/2022 Appointment Radiology Denise Aguirre APRN, ICE HOUSE SUPERVISOR [address] [place], [place] [address] (Wo rk) 08/13/2022 Appointment Hematology and Oncology Denise Aguirre APRN, ICE HOUSE SUPERVISOR [address] [place], [place] [address] (Wo rk) documented as of this encounter Procedures Procedure Name Priority Date/Time Associated Diagnosis Comme nts MAMMOGRAM SC 11/23/2002 12:00 AM Results for this CDT procedure are i n the results section . BREAST IMAGING 11/23/2002 Results for t his procedure are i n the results section . documented in this encounter Results MAMMOGRAM SC (11/23/2002 12:00 AM CDT) Anatomical Region Laterality Modality Other Narrative 11/23/2002 12:00 AM CDT This result has an attachment that is no t available. Ordered by an unspecified provider. Transcriptions Unknown, Physician - 11/23/2002 12:00 AM CDT Physician Unknown DUMMY/OTHER/AR BREAST IMAGING (11/23/2002) Anatomical Region Laterality Modality Breast Other Narrative 11/23/2002 This result has an attachment that is no t available. Ordered by UNKNOWN, PHYSICIAN Physician Unknown RAD_BI documented in this encounter Visit Diagnoses Not on filedocumented in this encounter Care Teams Container Finisher Relationship Specialty Start Date End Date Unassigned, Provider PCP - General 06/17/00 03/18/[address] [place] [address] documented as of this encounter
--- OUTSIDE RECORDS SUMMARY | 2022-07-02 13:57 | XMS_ITS | Encounter Summary ---
:1950 Author Organization [facility] Address [address] [place] [address] Care Team Providers Name Role Phone Unassigned, Provider Primary Care Provider Unavailable Reason for Visit Procedure/Equipment (Routine) - Incomplete Specialty Diagnoses / Procedures Referred By Contact Refer red To Contact Procedures Provider, Foreign Images Foreign Image(S) Mammogram [address] [place] [address] Referral ID Status Reason Start Date Expiration Date Visits V isits Requested Authorized [id number] Incomplete 07/19/2018 10/18/2019 1 1 Encounter Details Date Type Department Care Team Description 03/27/2015 Ancillary Procedure RC Radiology PACS Provider, Foreign [address] [place] [address] [address] [place] [address] Social History Tobacco Use Types Packs/Day Years Used Date Smoking Tobacco: Former Cigarettes Quit : 08/02/1981 Alcohol Use Standard Drinks/Week Comments Not Asked 0 (1 standard drink = 0.6 oz pure alcoho l) Sex Assigned at Date Recorded Not on file documented as of this encounter Plan of Treatment Upcoming Encounters Date Type Specialty Care Team Description 08/13/2022 Appointment Radiology Denise Aguirre APRN, EXCELSIOR CUTTER [address] [place], [place] [address] (Wo rk) 08/13/2022 Appointment Hematology and Oncology Denise Aguirre APRN, EXCELSIOR CUTTER [address] [place], [place] [address] (Wo rk) documented as of this encounter Procedures Procedure Name Priority Date/Time Associated Diagnosis Comme nts FOREIGN IMAGE(S) Routine 03/27/2015 12:00 AM Resu lts for this MAMMOGRAM BILATERAL CDT procedur e are in SCREENING the results section. documented in this encounter Results Foreign Image(S) Mammogram Bilateral Screening (03/27/2015 12:00 AM CDT) Specimen (Source) Anatomical Location Collection Method / Collectio n Time Received Time / Laterality Volume Narrative EXTERNAL RESULTS - 07/19/2018 2:07 PM CS T These outside images have been uploaded into PACS. If the results were provided, they will be located in the pa kaye's chart under the Media or Imaging tab. Foreign Images Provider RAD NON-REPORTABLES Performing Organization Address City/State/ZIP Code Phon e Number EXTERNAL RESULTS documented in this encounter Visit Diagnoses Not on filedocumented in this encounter Care Teams Watch Inspector Relationship Specialty Start Date End Date Unassigned, Provider PCP - General 06/17/00 03/18/[address] [place] [address] documented as of this encounter
--- OUTSIDE RECORDS SUMMARY | 2022-07-02 13:57 | XMS_ITS | Encounter Summary ---
:1950 Author Organization [employer] Address [address] [place] [address] Care Team Providers Name Role Phone Elyse Paredes MD Primary Care Provider Reason for Visit Reason Comments FOLLOW-UP,DIABETES Encounter Details Date Type Department Care Team Description 06/17/2017 Office Visit [facility] [address] Gabrielle Morris, Uncontrolled type 2 diabetes mellitus without complication, with long-term current use of insulin (HRC) (Primary Dx); Endocrinology Clinic PREMIUM CARD CANCELLATION CLERK, DNP Essential hypertension; [address] Dyslipidemia, goal LDL below 100 [place] [address] [place], [place] [phone] [address] Social History Tobacco Use Types Packs/Day Years Used Date Smoking Tobacco: Former Cigarettes Quit : 08/02/1981 Smokeless Tobacco: Never Alcohol Use Standard Drinks/Week Comments No 0 (1 standard drink = 0.6 oz pure alcoho l) Sex Assigned at Date Recorded Not on file documented as of this encounter Last Filed Vital Signs Vital Sign Reading Time Taken Comments Blood Pressure 118/83 06/17/2017 3:10 PM SHORE MAN Pulse 67 06/17/2017 3:10 PM SHORE MAN Temperature - - Respiratory Rate - - Oxygen Saturation - - Inhaled Oxygen Concentration - - Weight 127.9 kg (282 lb) 06/17/2017 3:10 PM SHORE MAN Height 157.5 cm (5' 2) 06/17/2017 3:10 PM SHORE MAN Body Mass Index 51.58 06/17/2017 3:10 PM SHORE MAN documented in this encounter Patient Instructions Patient InstructionsLaGabrielle kaiser, GRIFFIN, PUBLIC WORKS INSPECTOR - 06/17/2017 2:50 PM SHORE MAN Plan: Medications: -Start Metformin Extended Release; often there are fewer GI side effects with the extended release formulation -Metformin Instructions: First week: Start metformin at 500 mg (1 tablet) at breakfast If you do not have any side effects, increase each as follows: In two weeks: 1000 mg (2 tablets) with breakfast In two more weeks: 1500 mg (3 tablets) with breakfast In two more weeks: 2000 mg (4 tablets) with breakfast Do not increase dose higher than 2000 mg total daily If you have side effects, decrease the dose to the highest dose that you tolerated and stay on this dose -Start Trulicity 0.75 mg weekly; you can increase to 1.5 mg weekly in about one month if you are doing well on the medication. -Discontinue Humalog with meals Blood Sugar: - Goal is for you to check blood sugar 3 to 4 times a day (before meals, 2 hours after meals, and atbedtime). This is for your safety and to make meaningful medication adjustments to get your blood sugars to goal. Blood sugar goals: -Fasting and before meals: 70-130 -Two hours after meals: Less than 180 -Bedtime: 100-140 Please call our office if you have any blood sugar readings less than 70 or if you have multiple blood sugar readings more than 200. -Please bring your blood sugar meter with you to all Endocrinology appointments. The meter can be downloaded and we can review the readings together at your appointment. These readings will help guide us in making safe, meaningful adjustments to your medications. -Please check your blood sugar before you drive - EVERY TIME YOU DRIVE! Nutrition: -Do your best to limit your carbohydrates to 2 to 3 choices per meal -Do your best to avoid snacking; if you do have snacks, choose lower- carbohydrate options or protein -Keep your scheduled appointment with the Board Saw Runner at your primary clinic Exercise: -Work on getting 30-60 minutes of cardiovascular exercise 5 times a week. Start slow, with less intense exercise for a shorter duration, and increase gradually. Check your blood sugar before exercising. If your blood sugar is less than 120, have a snack with 30grams of carbohydrate that includes complex carbohydrate and protein. Repeat the blood sugar before starting to exercise to ensure that the blood sugar is more than 120 before exercise. Any exercise will help your blood sugars! Follow up visit: Keep your scheduled appointment with Dr. Shin on 10/20/2016. If you would like to seen sooner, you can schedule with Gabrielle Morris APRN, FNP-C Labs: Please have your labs drawn a few days before your next visit Blood pressure follow up: None; at goal today Thank you for choosing the Endocrinology Clinic at [facility]. Treating provider: Gabrielle Morris APRN, FNP-C, Endocrinology PLEASE STOP AT THE CHECKOUT DESK TO MAKE YOUR APPOINTMENT OR TO PLACE IT ON WAITING LIST. Need to reach us after your appointment? For non-urgent needs, consider using Online Patient Services to send a secured email to your care team. For questions related to your recent visit, there is no charge and no waiting on hold! For quick and convenient communication on your schedule, log-on to [employer], click on the ???Get Care?? tab on the top, scroll down to the bottom of the page and click ? Patient email & E. visit >? . Follow the prompts, and we will respond within one business day. Mail order pharmacy: [phone] or For lab only appointments call: [phone] TEST RESULTS: We will communicate your test results using your preferred method, which we asked you about during your visit. Depending on the circumstances, we may also call you to further discuss the results. It may take up to 2 weeks for some tests to be completed (send out tests). If you don't receive any information about your test within the expected time frame discussed during your visit with us, please call one of our nurses (see the phone numbers mentioned above). OFFICE VISITS: Kindly attempt to be on time for your appointment. This will help reduce the amount of waiting time in clinic. Please note that your follow up visits total 40 minutes, 20 minutes with a nurse (rooming procedure)and 20 minutes with your physician CANCELLATION OF APPOINTMENTS: If you are not able to keep your appointment, please call and cancel your appointment at least 48 hour prior to your scheduled appointment, or as soon as you can. This will help us schedule other patients who are waiting for an appointment. MEDICATION REFILLS: Please contact your pharmacy for refills. Your pharmacy will then contact our clinic if needed. However, don't hesitate to call our clinic if there is any problem. Today your clinician has ordered a medication that may need a prior authorization in order to be filled. The prescription has been sent to our prior authorization team, who will verify with your insurance carrier if a prior authorization is required. If a prior authorization is required, expect to hear from the pharmacy regarding status and next steps within 1-2 business days for a [facility] pharmacy or 5-7 business days if you are picking up from a non- [facility] pharmacy. If you have not heard about the status of your medication within 5-7 business days, please call our clinic at [phone]. E MAN documented in this encounter Progress Notes Donna Mcdermott RN - 06/18/2017 9:25 AM CST Discussed during office visit. Donna Mcdermott RN E MAN Gabrielle Morris APRN, CNP - 06/17/2017 2:50 PM CST Images from the original note were not included. Endocrine Follow Up Visit Reason for visit: Type 2 diabetes Patient was last seen by Tk Shin MD, on 03/19/2017 HPI: Marci Diaz is a 67 y.o. female who presents today with FOLLOW-UP,DIABETES ?? Patient was diagnosed with diabetes in the late ?? Initially used metformin, then Lantus added; had GI symptoms, stopped metformin, and GI symptoms resolved; restarted metformin ER and GI symptoms returned; discontinued again; has had difficulty controlling blood sugars since ?? Diabetes complicated by: HTN, dyslipidemia; patient also living with depression ?? Diabetes medication regimen: Lantus 60 units (30 units x 2) is prescribed; actually taking 50 units because taking 60 units didn't change my blood sugar, so I just decided to take 50 instead Humalog 4 to 6 units (depending on carbs) plus 1 unit per 50 >150; started 03/19/2017 ?? Feels as though she is constantly hungry and has gained weight since starting Humalog; would liketo discontinue ?? Wants to try extended release metformin again despite diarrhea in the past ?? Previous medications: Metformin - Diarrhea Victoza - Did not feel like it helped; used less than one month ?? Review of Blood Sugars: Checking an average of 2-3 times daily Did not bring meter, from logbook: Morning: High-100's to mid-200's Afternoon: High-100's to mid-200's Bedtime: High-200's to low-300's Has not been able to collect any post-meal blood sugar readings ?? Hypoglycemia: None recently ?? Nutrition: Decreased amount of fruit eaten, does her best to watch carbohydrate content and triesto eat protein ?? Exercise: None ?? Hyperlipidemia: Taking rosuvastatin 10 mg ?? Hypertension: Taking losartan 50 mg ?? Depression: Taking sertraline 50 mg ?? Father - type 1 diabetes; had two occasions of severe hypoglycemia; patient has a fear of lows and eats at night; father has since passed ?? 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 Going to [place] 2017 ?? Scheduled for valve replacement in 2 weeks at [facility] ROS: ?? No vision changes, chest pain, shortness of breath, gastrointestinal complaints, urinary complaints, skin lesions, paresthesias ?? Weight Wt Readings from Last 4 Encounters: 06/17/17 282 lb (127.9 kg) 03/19/17 281 lb (127.5 kg) ?? Please see HPI as well I have personally reviewed the patient's allergies, medications, past medical history, family history, social history, rooming notes, problem list and lab results in detail and updated the patient record as necessary. Past Medical History: Diagnosis Date ??? Uncontrolled type 2 diabetes mellitus, with long-term current use of insulin ([facility]) 03/19/2017 : Social History Social History ??? Marital status: Spouse name: N/A ??? Number of children: N/A ??? Years of education: N/A Occupational History ??? Not on file. Social History Main Topics ??? Smoking status: Former Smoker Quit date: 08/02/1981 ??? Smokeless tobacco: Never Used ??? Alcohol use No ??? Drug use: Not on file ??? Sexual activity: Not on file Other Topics Concern ??? Not on file Social History Narrative : Physical Exam: BP 118/83 Pulse 67 Ht 5' 2 (1.575 m) Wt 282 lb (127.9 kg) BMI 51.58 kg/m2 General Appearance: Alert and in no apparent distress Musculoskeletal: Normal muscle tone Skin: No rashes or lesions on exposed skin Psychiatric: Cooperative, verbose Labs: Reviewed with patient Point of Care A1C done 06/17/2017. Result: 9.1%. Component Latest Ref Rng & Units 03/19/2017 03/19/2017 03/19/2017 03/19/2017 2:16 PM 1:51 PM 1:51 PM 1:51 PM Microalbumin, Ur Random mg/L 108.1 Creatinine,Ur Random mg/dl 172 Ratio <30 mg/g creatinine 63 (H) Glutamic Acid Decarb Ab (NOTE) . . . C-Peptide (NOTE) . . . 1.1 . . . Component Latest Ref Rng & Units 03/19/2017 03/19/2017 1:51 PM 1:51 PM Sodium 136 - 145 mmol/L [...] GFR, Est., If Black >60 ml/min/1.73m2 >60 Glutamic Acid Decarb Ab <5.0 . . . TSH, Sensitive 0.30 - 4.50 uIU/ml 2.72 Lab from [facility]: Assessment/Plan: ICD-10-CM 1. Uncontrolled type 2 diabetes mellitus without complication, with long-term current use of insulin(HRC) E11.65 Hgb A1c Z79.4 Hgb A1c, Point of Care celecoxib (CELEBREX) 200 MG capsule clopidogrel (PLAVIX) 75 MG tablet aspirin, enteric-coated 81 MG enteric coated tablet rosuvastatin (CRESTOR) 10 MG tablet metFORMIN XR (GLUCOPHAGE XR) 500 MG 24 hour release tablet dulaglutide (TRULICITY) 1.5 MG/0.5ML injeciton pen insulin glargine (BASAGLAR) 100 UNIT/ML KWIKPEN 2. Essential hypertension (HRC) I10 3. Dyslipidemia, goal LDL below 100 (HRC) E78.5 Plan: 1. Diabetes -A1C 9.1%; not at goal; goal is less than 7-7.5% (without lows) to reduce risk of diabetes-related complications -Increased appetite and subjective weight gain since starting mealtime insulin; patient would like to discontinue mealtime insulin and resume metformin extended release; also interested in GLP-1 Agonist Medications: -Start Metformin Extended Release; often there are fewer GI side effects with the extended release formulation -Metformin Instructions: First week: Start metformin at 500 mg (1 tablet) at breakfast If you do not have any side effects, increase each as follows: In two weeks: 1000 mg (2 tablets) with breakfast In two more weeks: 1500 mg (3 tablets) with breakfast In two more weeks: 2000 mg (4 tablets) with breakfast Do not increase dose higher than 2000 mg total daily If you have side effects, decrease the dose to the highest dose that you tolerated and stay on this dose -Start Trulicity 0.75 mg weekly; you can increase to 1.5 mg weekly in about one month if you are doing well on the medication. -Decide whether you want to start the metformin or the Trulicity first; this is so that in the eventyou have any side effects, we can tell which medication may have caused the side effect. -Discontinue Humalog with meals Blood Sugar: - Goal is for you to check blood sugar 3 to 4 times a day (before meals, 2 hours after meals, and atbedtime). This is for your safety and to make meaningful medication adjustments to get your blood sugars to goal. Blood sugar goals: -Fasting and before meals: 70-130 -Two hours after meals: Less than 180 -Bedtime: 100-140 Please call our office if you have any blood sugar readings less than 70 or if you have multiple blood sugar readings more than 200. -Please bring your blood sugar meter with you to all Endocrinology appointments. The meter can be downloaded and we can review the readings together at your appointment. These readings will help guide us in making safe, meaningful adjustments to your medications. -Please check your blood sugar before you drive - EVERY TIME YOU DRIVE! Nutrition: -Do your best to limit your carbohydrates to 2 to 3 choices per meal -Do your best to avoid snacking; if you do have snacks, choose lower- carbohydrate options or protein -Keep your scheduled appointment with the Board Saw Runner at your primary clinic Exercise: -Work on getting 30-60 minutes of cardiovascular exercise 5 times a week. Start slow, with less intense exercise for a shorter duration, and increase gradually. Check your blood sugar before exercising. If your blood sugar is less than 120, have a snack with 30grams of carbohydrate that includes complex carbohydrate and protein. Repeat the blood sugar before starting to exercise to ensure that the blood sugar is more than 120 before exercise. Any exercise will help your blood sugars! Follow up visit: Keep your scheduled appointment with Dr. Shin on 10/20/2016. If you would like to seen sooner, you can schedule with Gabrielle Morris APRN, BROADCAST NEWS PRODUCER-C -Reviewed the concept of diabetes self-management, stressing the primary role of the patient in monitoring and maintaining control of diabetes. Reviewed importance of blood sugar monitoring, both to monitor for hypoglycemia and to facilitate adjustments in medications. 2. Diabetes-5 Treatment Goals/Diabetes Complications -A1C: As above -Aspirin use: Continue -Blood pressure: Hypertension, at goal today; continue medication(s): as above; continue to follow -Lipids: Hyperlipidemia; continue medication: as above; recheck 12/2017 -Tobacco use: Non-smoker -Retinopathy: None known; encouraged to schedule dilated eye exam -Nephropathy: Elevated microalbumin/creatinine ratio and normal serum creatinine; taking ARB; blood pressure at goal today; recheck 03/2018 -Neuropathy: No symptoms of neuropathy; continue to monitor Plan of Care developed in conjunction with patient. Patient agrees with and verbalizes understandingof plan. Gabrielle Morrsi APRN, BROADCAST NEWS PRODUCER-C I spent >30 minutes with patient; over 50% was spent discussing issues as outlined above and the Plan of Care in detail. E MAN documented in this encounter Nursing Notes Mariah Rodrigues LPN - 06/17/2017 2:50 PM CST POC A1C 9.1% Revisit Diabetes. How many time BS checked in a day: 3 Did patient bring log book? yes Medication list updated? Yes ASA: Yes BP Readings from Last 3 Encounters: 06/17/17 118/83 03/19/17 (!) 167/93 03/31/09 112/74 No results found for: HGBA1C No results found for: LDL Tobacco Usage: reports that she quit smoking about 35 years ago. She has never used smokeless tobacco. Mariah Rodrigues LPN E MAN documented in this encounter Plan of Treatment Upcoming Encounters Date Type Specialty Care Team Description 08/13/2022 Appointment Radiology Denise Aguirre APRN, PUBLIC WORKS INSPECTOR [address] [place], [place] [address] (Wo rk) 08/13/2022 Appointment Hematology and Oncology Denise Aguirre APRN, PUBLIC WORKS INSPECTOR [address] [place], [place] [address] (Wo rk) documented as of this encounter Procedures Procedure Name Priority Date/Time Associated Diagnosis Comme nts HGB A1C,POINT OF Routine 06/17/2017 4:28 PM Uncontrolled type 2 Results for this CARE SHORE MAN diabetes mellitus procedure are in without complication, the re sults with long-term section. current use of insulin (HRC) documented in this encounter Results (ABNORMAL) Hgb A1c, Point of Care (06/17/2017 4:28 PM SHORE MAN) [facility] gist Method Time Signature Point of Care 9.1 (H) 4.3 - 5.6 HPMG A1c % [...] Time (Source) Location / / Volume Laterality 06/17/2017 4:28 PM 7 5:10 SHORE MAN PM SHORE MAN Gabrielle Morris PREMIUM CARD CANCELLATION CLERK, DNP LAB_1 Performing Organization Address City/State/ZIP Code Phon e Number [facility] [phone] documented in this encounter Visit Diagnoses Diagnosis Uncontrolled type 2 diabetes mellitus wi thout complication, with long-term current use of insulin - Primary Essential hypertension (HRC) Unspecified essential hypertension Dyslipidemia, goal LDL below 100 (HRC) Other and unspecified hyperlipidemia documented in this encounter Care Teams Patient Registration Specialist Relationship Specialty Start Date End Date Elyse Paredes MD PCP - General Family Practice 03/19/17 [address] [place] [address] documented as of this encounter
--- OUTSIDE RECORDS SUMMARY | 2022-07-02 13:57 | XMS_ITS | Encounter Summary ---
:1950 Author Organization [facility] Address [address] [place] [address] Care Team Providers Name Role Phone Unassigned, Provider Primary Care Provider Unavailable Encounter Details Date Type Department Care Team Description 11/01/2013 Orders Only HP Claims MD Randee Security Contact Bill [address] [place] [address] Mailstop [id number] [phone] (Wo rk) Social History Tobacco Use Types [...] Description 08/13/2022 Appointment Radiology Denise Aguirre APRN, BILLET HEADER [address] [place], [place] [address] (Wo rk) 08/13/2022 Appointment Hematology and Oncology Denise Aguirre APRN, BILLET HEADER [address] [place], [place] [address] (Wo rk) documented as of this encounter Visit Diagnoses Not on filedocumented in this encounter Care Teams Vector Control Assistant Relationship Specialty Start Date End Date Unassigned, Provider PCP - General 06/17/00 03/18/17 [address] [place] [address] documented as of this encounter
--- OUTSIDE RECORDS SUMMARY | 2022-07-02 13:57 | XMS_ITS | Encounter Summary ---
:1950 Author Organization [facility] Address [address] [place] [address] Care Team Providers Name Role Phone Unassigned, Provider Primary Care Provider Unavailable Reason for Visit Procedure/Equipment (Routine) - Incomplete Specialty Diagnoses / Procedures Referred By Contact Refer red To Contact Procedures Provider, Foreign Images Foreign Image(S) Mammogram [address] [place] [address] Referral ID Status Reason Start Date Expiration Date Visits V isits Requested Authorized [id number] Incomplete 07/19/2018 10/18/2019 1 1 Encounter Details Date Type Department Care Team Description 07/27/2013 Ancillary Procedure RC Radiology PACS Provider, Foreign [address] [place] [address] [address] [place] [address] Social History Tobacco Use Types Packs/Day Years Used Date Smoking Tobacco: Former Cigarettes Quit : 08/02/1981 Alcohol Use Standard Drinks/Week Comments Not Asked 0 (1 standard drink = 0.6 oz pure alcoho l) Sex Assigned at Date Recorded Not on file documented as of this encounter Plan of Treatment Upcoming Encounters Date Type Specialty Care Team Description 08/13/2022 Appointment Radiology Denise Aguirre APRN, BUNDLES HANGER [address] [place], [place] [address] (Wo rk) 08/13/2022 Appointment Hematology and Oncology Denise Aguirre APRN, BUNDLES HANGER [address] [place], [place] [address] (Wo rk) documented as of this encounter Procedures Procedure Name Priority Date/Time Associated Diagnosis Comme nts FOREIGN IMAGE(S) Routine 07/27/2013 12:00 AM Resu lts for this MAMMOGRAM BILATERAL AGENCY TRAINER procedur e are in SCREENING the results section. documented in this encounter Results Foreign Image(S) Mammogram Bilateral Screening (07/27/2013 12:00 AM AGENCY TRAINER) Specimen (Source) Anatomical Location Collection Method / Collectio n Time Received Time / Laterality Volume Narrative EXTERNAL RESULTS - 07/19/2018 2:09 PM CS T These outside images have been uploaded into PACS. If the results were provided, they will be located in the anil restrepo's chart under the Media or Imaging tab. Foreign Images Provider RAD NON-REPORTABLES Performing Organization Address City/State/ZIP Code Phon e Number EXTERNAL RESULTS documented in this encounter Visit Diagnoses Not on filedocumented in this encounter Care Teams Lpn Cma Relationship Specialty Start Date End Date Unassigned, Provider PCP - General 06/17/00 03/18/[address] [place] [address] documented as of this encounter
--- OUTSIDE RECORDS SUMMARY | 2022-07-02 13:57 | XMS_ITS | Encounter Summary ---
:1950 Author Organization [employer] Address [address] [place] [address] Care Team Providers Name Role Phone Elyse Paredes MD Primary Care Provider Encounter Details Date Type Department Care Team Description 11/13/2008 Orders Only External to [facility] No Primary/Referring, Phy Social History Tobacco Use Types Packs/Day Years Used Date Smoking Tobacco: Never Assessed Sex Assigned at Date Recorded Not on file documented as of this encounter Plan of Treatment Upcoming Encounters Date Type Specialty Care Team Description 08/13/2022 Appointment Radiology Denise Aguirre, USED CAR SALESPERSON, TRIM MOUNTER [address] [place], [place] [address] (Wo rk) 08/13/2022 Appointment Hematology and Oncology Denise Aguirre, USED CAR SALESPERSON, TRIM MOUNTER [address] [place], [place] [address] (Wo rk) documented as [...] Name Priority Date/Time Associated Diagnosis Comme nts BREAST IMAGING 11/13/2008 12:00 AM Result s for this CDT procedure are i n the results section . documented in this encounter Results BREAST IMAGING (11/13/2008 12:00 AM CDT) Anatomical Region Laterality Modality Breast Other Specimen (Source) Anatomical Location Collection Method / Collectio n Time Received Time / Laterality Volume 11/13/2008 Narrative This result has an attachment that is no t available. Phy No Primary/Referring RAD_BI documented in this encounter Visit Diagnoses Not on filedocumented in this encounter Care Teams Assembler Surgical Garment Relationship Specialty Start Date End Date Elyse Paredes MD PCP - General Family Practice 03/19/17 [address] [address] documented as of this encounter
--- OUTSIDE RECORDS SUMMARY | 2022-07-02 13:57 | XMS_ITS | Encounter Summary ---
:1950 Author Organization [employer] Address [address] [address] Care Team Providers Name Role Phone Elyse Paredes MD Primary Care Provider Reason for Referral Consult/Transfer Care (Routine) - Closed Specialty Diagnoses / Procedures Referred By Contact Refer red To Contact Diagnoses Uncontrolled diabetes mellitus type 2 without complications, unspecified custodial insulin use status Miya Shin MD [address] [place] [address] Referral ID Status Reason Start Date Expiration Date Visits Requ ested Visits Authorized [id number] Closed 03/19/2017 06/18/2018 1 1 Scheduling Instructions Your provider has recommended you for a visit with our Diabetes department. If scheduling assistance is needed, please inquire with the medical office staff upon exiting your appointment or you may call [phone]. To find out your specific benefit coverage, please call the number on your insurance card. Encounter Details Date Type Department Care Team Description 03/19/2017 Office Visit Specialty Center Miya Shin Unc ontrolled 401 Endocrinology MD diabetes mellitus Clinic [address] type [address] [facility], [place] [address] [place] [address] unspecified long [phone] (Wo rk) term insulin use status (H RC) (Primary Dx) Social History Tobacco Use Types Packs/Day Years Used Date Smoking Tobacco: Former Cigarettes Quit : 08/02/1981 Smokeless Tobacco: Never Alcohol Use Standard Drinks/Week Comments No 0 (1 standard drink = 0.6 oz pure alcoho l) Sex Assigned at Date Recorded Not on file documented as of this encounter Last Filed Vital Signs Vital Sign Reading Time Taken Comments Blood Pressure 167/93 03/19/2017 11:27 AM CDT Pulse 89 03/19/2017 11:27 AM CDT Temperature - - Respiratory Rate - - Oxygen Saturation - - Inhaled Oxygen Concentration - - Weight 127.5 kg (281 lb) 03/19/2017 11:27 AM CDT Height 157.5 cm (5' 2) 03/19/2017 11:27 AM CDT Body Mass Index 51.4 03/19/2017 11:27 AM CDT documented in this encounter Patient Instructions Patient InstructionsMiya Shin MD - 03/19/2017 11:00 AM CDT Images from the original note were not included. Plan: 1. Insulin : Start on Glargine (Lantus) 60 units (30 unit x 2 ), and Humalog 4 - 6 units (depending on the amount of carbs) PLUS 1 unit / 50 > 150. If you have pasta, you may need 8 - 10 units, if you have clear broth soup and low low carb, then you may only need 2-3 units..... CHECK AT 2 HOURS POST MEAL, AT LEAST ONCE A DAY, TO ASSESS THE ADEQUACY OF THE MEAL TIME DOSING / CORRECTION. GOAL IS : 10 0 - 180 (IDEAL 150). GOAL FOR FASTING / BEFORE MEALS : 95 - 130. 2. IF you still have high BGs , then at the next visit, we can consider starting Victoza or Trulicity (since you have already been on Victoza in the past) 3. Do resume Aspirin 81 mg EC, every other day . If you have tinnitus, then may consider addition ofHCTZ 12.5 mg daily , 4. HTN: Your BP was high today and recheck was 155. So if follow up is again high at [facility], or revisitwith nurse, then would increase the Losartan to 100 , OR, Losartan / HCTZ 50 / 12.5 5. Statin : Does not matter what the LDL reading is , as much as the fact that you are on a statin. Recommendation is for 20 mg of Crestor , but that is ok to stay on the 10 . 6. Follow up with Diabetes Ed, and follow up with a PA or ENCHILADA MAKER in hour clinic. Miya Shin MD Endocrinology, [facility] 03/19/2017 , 12:50 PM FOLLOW UP INSTRUCTIONS: >>> Future Clinic visit in 2-3 months with ENCHILADA MAKER,, or PA in our clinic, and 6 months with me. Also, Diabetes Ed nurse. >>> Labs: today >>> Radiology: NA >>> Referrals : Diab ED Helpful phone numbers: [facility]: [address] [facility] ?? For appointments call: [phone] ?? For question call our nurses at [phone] Care Line (after 5 PM, weekends and holidays): [phone] [facility]: [address] [place], [place] ?? For appointments call: [phone], ?? For question call our nurses at [phone] Care Line (after 5 PM, weekends and holidays): [phone] Mail order pharmacy: [phone] or For lab only appointments (Daily 7 a.m.-9 p.m.): [phone], or [phone] [facility] TEST RESULTS: I will communicate my interpretation of your lab results with you via letter or E-Mail(your preference). However, I may have a backlog of many lab results and may not get back to you fora few days, even though you can see the results in the computer. Also, results may take up to 10 days to come back. If you have further questions or have not heard back by 10 days contact me. If you have Diabetes and have a blood sugar meter or insulin pump, please arrive early to allow download of the machine for review during your visit. Get Cost of Care Estimates - [phone] PRIOR APPROVAL OF MEDICATIONS BY INSURANCE : If you have not heard about the status of your medication within 3 business days, please call us at [phone]. documented in this encounter Progress Notes Miya Shin MD - 03/19/2017 11:00 AM CDT Endocrine Clinic, New Patient Consult Note Date of Service: 03/19/2017 Child Care Counselor: Miya Shin MD Referring Provider: Elyse Paredes Primary Provider: Elyse Paredes MD Subjective HPI: Marci Diaz is a 66 y.o. old female is a new patient to endocrine clinic and is here for evaluation and management of type 2 DM. ?? Was dx in the late s ?? Initially was on metformin, then added Lantus ?? Doing well but since last year she has not done well . ?? Lost her mother and her brother (68). ?? At that time she was having a lot of GI symptoms, and stopped metformin and the symptoms resolved. ?? Then reintroduced the ER 500 again and had symptoms again ?? Since stopping the metformin she has not been able to control her BGs ?? Since then has tried numerous options, but is now using 75/25 insulin ?? Her father was Type 1, and had two occasions of severe hypoglycemia. ?? So , she has a fear of lows and eats at night. ?? Assessment and Plan: Pertinent diagnoses relevant to today's visit: 1. Uncontrolled diabetes mellitus type 2 without complications, unspecified custodial insulin use status (HRC) Recommendations: 1. Insulin : Start on Glargine (Lantus) 60 units (30 unit x 2 ), and Humalog 4 - 6 units (depending on the amount of carbs) PLUS 1 unit / 50 > 150. If you have pasta, you may need 8 - 10 units, if you have clear broth soup and low low carb, then you may only need 2-3 units..... CHECK AT 2 HOURS POST MEAL, AT LEAST ONCE A DAY, TO ASSESS THE ADEQUACY OF THE MEAL TIME DOSING / CORRECTION. GOAL IS : 10 0 - 180 (IDEAL 150). GOAL FOR FASTING / BEFORE MEALS : 95 - 130. 2. IF you still have high BGs , then at the next visit, we can consider starting Victoza or Trulicity (since you have already been on Victoza in the past) 3. Do resume Aspirin 81 mg EC, every other day . If you have tinnitus, then may consider addition ofHCTZ 12.5 mg daily , 4. HTN: Your BP was high today and recheck was 155. So if follow up is again high at [facility], or revisitwith nurse, then would increase the Losartan to 100 , OR, Losartan / HCTZ 50 / 12.5 5. Statin : Does not matter what the LDL reading is , as much as the fact that you are on a statin. Recommendation is for 20 mg of Crestor , but that is ok to stay on the 10 . 6. Follow up with Diabetes Ed, and follow up with a PA or ENCHILADA MAKER in hour clinic. Current Medications Current Outpatient Prescriptions Medication Sig Note Dispense Refill ??? ACCU-CHEK GERALD PLUS test strip TEST TID UTD 03/19/2017: Received from: External Pharmacy 3 ??? B-D ULTRAFINE III SHORT PEN 31G X 8 MM needle USE WITH TOUJEO AND VICTOZA BID 03/19/2017: Received from: External Pharmacy 3 ??? celecoxib (CELEBREX) 200 MG capsule 03/19/2017: Received from: External Pharmacy ??? famotidine (PEPCID) 10 MG tablet Take 10 mg by mouth. 03/19/2017: Received from: [facility] Received Sig: Take 10 mg by mouth 2 times daily. ??? HUMALOG KWIKPEN 75/25 (75-25) 100 UNIT/ML pen suspension INJECT 50 UNITS SUBCUTANEOUSLY IN THE MORNING WITH BREAKFAST AND 40 UNITS IN THE EVENING WITH DINNER 03/19/2017: Received from: External Pharmacy 2 ??? Hydrochlorothiazide 12.5 MG capsule 5 mg daily ??? lisinopril (AKA ZESTRIL) 2.5 MG tablet Take one tablet by mouth every day. ??? losartan (COZAAR) 50 MG tablet 03/19/2017: Received from: External Pharmacy ??? sertraline (ZOLOFT) 100 MG tablet Take 1/2 tab daily 03/19/2017: [facility] No current facility-administered medications for this visit. PMHx/SH/FH/Meds/Allergies All reviewed with no significant changes Erythromycin Review of Systems Please see HPI for pertinent positive and negatives of ROS. The remainder of the ten point ROS was negative. Objective Physical Examination Vital Signs: BP (!) 167/93 Pulse 89 Ht 5' 2 (1.575 m) Wt 281 lb (127.5 kg) BMI 51.4 kg/m2 Estimated body mass index is 51.4 kg/(m^2) as calculated from the following: Height as of this encounter: 5' 2 (1.575 m). Weight as of this encounter: 281 lb (127.5 kg). Psych: Pleasant, appropriate, mood is good GEN: NAD, AAOX3 HEENT: NCAT, MMM, no lymphadenopathy THYROID: Thyroid is normal, without nodules, no bruit. RESP: CTAB, No W/R/R CV: RRR, No M/R/G ABD: - EXT: No edema, no cyanosis, normal DP and PT pulses. MSK: Normal muscle tone. No bone tenderness. Skin: No lesions, no edema NEURO: Alert, 2+ deep tendon reflexes of extremities bilaterally with normal relaxation. No tremor. Data: Reviewed in the EMR I spent >45 minutes with patient, over 50% of which was spent discussing issues as outlined above, and plan of care in detail. Miya Shin MD Endocrinology, [facility] 03/19/2017 , 12:50 PM Electronically Signed by Miya Shin MD This note was transcribed using [employer] voice recognition software, and may contain unintentional word substitutions or other composition roofer errors. documented in this encounter Nursing Notes Majo Allred CMA - 03/19/2017 11:00 AM CDT With which doctor would you like us to share this information: Elyse Paredes MD How many time BS checked in a day: 2 times daily Did patient bring log book? yes Medication list updated? Yes ASA: No BP Readings from Last 3 Encounters: 03/19/17 (!) 167/93 03/31/09 112/74 No results found for: HGBA1C No results found for: LDL Tobacco Usage: reports that she quit smoking about 35 years ago. She does not have any smokeless tobacco history on file. Majo Allred CMA documented in this encounter Plan of Treatment Upcoming Encounters Date Type Specialty Care Team Description 08/13/2022 Appointment Radiology Denise Aguirre APRN, MANAGER APPLE [address] [place], [place] [address] (Wo rk) 08/13/2022 Appointment Hematology and Oncology Denise Aguirre APRN, MANAGER APPLE [address] [place], [place] [address] (Wo rk) Scheduled Referrals Name Type Priority Associated Diagnoses Order S chedule Diabetes Education Referral Routine Uncontrolled diabetes Ordered: 03/19/2017 Visit mellitus type 2 without complications, unspecified terminologist insulin use status (HRC) documented as of this encounter Results (ABNORMAL) Microalb / Creat Ratio (03/19/2017 2:16 PM CDT) [facility] gist Method Time Signature Albumin, 108.1 mg/L [facility] [...] 03/19/2017 7:52 PM C DT Performed at [facility], [address] [place] [address] ??[address] Miya Shin MD LAB_1 Performing Organization Address City/State/ZIP Code Phon e Number [facility] [phone] Basic Metabolic Panel (03/19/2017 1:51 PM CDT) Analysis Performed At [facility] logist Time Signature Sodium 141 136 - [...] 03/19/2017 7:44 PM C DT Performed at [address] ??[address] Miya Shin MD LAB_1 Performing Organization Address City/[facility] Phon e Number [facility] [phone] Free T4 (03/19/2017 1:51 PM CDT) athologist Signature T4, Free 0.9 0.7 - 1.5 [facility] ng/dl Specimen Anatomical Collection Method Collection Time Receive d Time (Source) Location / / Volume Laterality 03/19/2017 1:51 PM 7 1:56 CDT PM CDT Narrative [facility] - 03/19/2017 8:02 PM C DT Performed at [address] ??[address] Miya Shin MD LAB_1 Performing Organization Address City/State/ZIP [facility] Phon e Number [facility] [phone] TSH (03/19/2017 1:51 PM CDT) athologist Signature TSH, Sensitive 2.72 0.30 - [facility] uIU/ml Specimen Anatomical Collection Method Collection Time Receive d Time (Source) Location / / Volume Laterality 03/19/2017 1:51 PM 7 1:56 CDT PM CDT Narrative [facility] - 03/19/2017 8:02 PM C DT Performed at [facility], [address] [place] [address] ??[address] Miya Shin MD LAB_1 Performing Organization Address City/[facility]/ZIP Code Phon e Number [facility] [phone] Insulin Antibodies Panel (03/19/2017 1:51 PM CDT) Component Value Ref Test Analysis Performed At [facility] Open Me Range Method Time Signature Insulin <0.4 [facility] [...] arbitrary. Kronus Units = U/mL [address] [place] [address] www.[facility], Yves Hopper MD, Lab. Director Specimen Anatomical Collection Method Collection Time Receive d Time (Source) Location / / Volume Laterality 03/19/2017 1:51 PM 7 1:55 CDT PM CDT Narrative [facility] - 03/22/2017 5:24 PM C DT Performed by [facility], [address] [facility] [address] [place], [place] [address] Miya Shin MD LAB_1 Performing Organization Address [facility] Phon e Number [facility] [phone] Islet Cell IGG Antibody (03/19/2017 1:51 PM CDT) Component Value Ref Test Analysis Performed At [facility] Open Me Range Method Time Signature Islet Cell <1:4 [...] Units). Test developed and characteristics determined by [facility] ?? Laboratories. See Compliance Statement A: [employer]/ [address] [place] [address] www.[facility], Yves Hopper MD, Lab. Director Specimen Anatomical Collection Method Collection Time Receive d Time (Source) Location / / Volume Laterality 03/19/2017 1:51 PM 7 1:55 CDT PM CDT Narrative [facility] - 03/20/2017 7:40 PM C DT Performed by [facility], [address] [facility] [place], [place] [address] Miya Shin MD LAB_1 Performing Organization Address City/[facility] Phon e Number [facility] [phone] C-Peptide, Serum or Plasma (03/19/2017 1:51 PM CDT) [facility] Method Time Signature C-Peptide 1.1 [facility] Reference range: 0.8 to 3.5 [facility] Unit: ng/mL C-Peptide (NOTE) [facility] INTERPRETIVE INFORMATION: C-Peptide, Serum or Plasma LABORATORIES Reference Interval applies to fasting specimens. To convert to ?? nmol/L, multiply by 0.33 [address] [place] [address] www.[facility], Yves Hopper MD, Lab. Director Specimen Anatomical Collection Method Collection Time Receive d Time (Source) Location / / Volume Laterality 03/19/2017 1:51 PM 7 1:55 CDT PM CDT Narrative [facility] - 03/20/2017 1:10 PM C DT Performed by [facility], [address] [employer] [place], [place] [address] Miya Shin MD LAB_1 Performing Organization Address City/[facility] Phon e Number [facility] [phone] Glutamic Acid Decarboxylase Antibody (03/19/2017 1:51 PM CDT) Component Value Ref Test Analysis Performed At [facility] Range Method Time Signature Glutamic Acid <5.0 [facility] Decarboxylase Reference range: 0.0 to 5.0 LABORATORIES Antibody Unit: IU/mL Glutamic Acid (NOTE) [facility] Decarboxylase INTERPRETIVE INFORMATION: ??Glutamic Acid Decarb oxylase Antibody LABORATORIES Antibody A value greater than 5.0 IU/mL is considered pos itive for Glutamic ?? Acid Decarboxylase Antibody. [address] [place] [address] www.[facility], Yves Hopper MD, Lab. Director Specimen Anatomical Collection Method Collection Time Receive d Time (Source) Location / / Volume Laterality 03/19/2017 1:51 PM 7 1:55 CDT PM CDT Narrative [facility] - 03/21/2017 4:16 PM C DT Performed by [facility], [address] [place] [address] [place], [place] [address] Miya Shin MD LAB_1 Performing Organization Address City/State/ZIP Code Phon e Number [facility] [phone] documented in this encounter Visit Diagnoses Diagnosis Uncontrolled diabetes mellitus type 2 wi thout complications, unspecified custodial insulin use status - Primary Uncontrolled diabetes mellitus type 2 wi thout complications, unspecified terminologist insulin use status documented in this encounter Care Teams Quality System Manager Relationship Specialty Start Date End Date Elyse Paredes MD PCP - General Family Practice 03/19/17 [address] [place] [address] documented as of this encounter
--- OUTSIDE RECORDS SUMMARY | 2022-07-02 13:57 | XMS_ITS | Encounter Summary ---
:1950 Author Organization [employer] Address [address] [place] [address] Care Team Providers Name Role Phone Unassigned, Provider Primary Care Provider Unavailable Reason for Visit Reason Comments KNEE PAIN Encounter Details Date Type Department Care Team Description 04/04/2011 Office Visit [facility] Horace rojas Knee injury (Primary Dx); [address] Knee joint [place] [address] Social History Tobacco Use Types Packs/Day Years Used Date Smoking Tobacco: Former Cigarettes Quit : 08/02/1981 Alcohol Use Standard Drinks/Week Comments Not Asked 0 (1 standard drink = 0.6 oz pure alcoho l) Sex Assigned at Date Recorded Not on file documented as of this encounter Progress Notes Susanna Castro - 04/04/2011 1:10 PM CDT SUBJECTIVE:Marci Diaz is a 60 yr old female who presents with left knee pain after a fall yesterday. She reports that she was getting off a tour bus when she fell. She broke the fall with her back and her left leg was underneath her. She felt like she twisted her left knee. She has been experiencingleft knee pain since. Left knee pain is aggravated when she tries to sit down. She has a history of bilateral total knee replacement. The left total knee was done in December 2009 at [facility]. The right knee feels fine. She also has a bruise on her lower back. She denies any feeling of instability on the left knee. OBJECTIVE: Patient alert and oriented x3, in no acute distress. There is tenderness to palpation of the medial aspect of the left knee. Mild swelling of the left knee noted with no ecchymosis or erythema. Small area of Mild swelling with redness noted on the distal left leg. Full extension of the leftknee. Left knee flexion about 100??. Knee stable with first and valgus stress. End point strong withanterior and posterior drawer tests. Sensation intact in left lower extremity. DP pulse intact. There is also a large area of hematoma and ecchymosis with superficial skin abrasion on the left side of the lower back. There is another small area of hematoma and ecchymosis about 1-1/2 inch in diameter located in the lateral aspect of the proximal thigh. X-ray: ASSESSMENT: Left knee injury, left knee pain, s/p bilateral TKA PLAN: Rest, ice, elevation Tylenol/Ibuprofen as needed for pain Follow up with PCP if symptoms worsen or fail to improve Susanna Castro PA-C documented in this encounter Plan of Treatment Upcoming Encounters Date Type Specialty Care Team Description 08/13/2022 Appointment Radiology Denise Aguirre, GRIFFIN, CHIEF 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 INSPECTOR [address] [place], [place] [address] (Wo rk) 08/13/2022 Appointment Hematology and Oncology Denise Aguirre APRN, CHIEF 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 INSPECTOR [address] [place], [place] [address] (Wo rk) documented as of this encounter Results XR KNEE AP/LAT/SUN/PA ADULT LEFT (04/04/2011 12:57 PM CDT) Anatomical Region Laterality Modality Lower Extremity, Knee Computed Radiograp hy Specimen (Source) Anatomical Collection Method Collection Time Re ceived Time Location / / Volume Laterality 04/04/2011 12:57 PM CDT Narrative 04/09/2011 10:09 AM CDT X-RAY LEFT KNEE 4 VIEWS 04/04/2011: INDICATION: Pain. Swelling. FINDINGS: Postoperative changes of left TKA including patellar resurfacing. Hardware is well seated with good align ment. No fracture, dislocation, significant effusion or calcified loose body. Prepatellar soft tissue swelling. On the AP and PA views of both knees, right knee arthroplasty is visualized. Procedure Note Ailyn Alba T - 04/09/2011Formatting of t his note might be different from the original. X-RAY LEFT KNEE 4 VIEWS 04/04/2011: INDICATION: Pain. Swelling. FINDINGS: Postoperative changes of left TKA including patellar resurfacing. Hardware is well seated with good align ment. No fracture, dislocation, significant effusion or calcified loose body. Prepatellar soft tissue swelling. On the AP and PA views of both knees, right knee arthroplasty is visualized. Susanna CHOWDHURY documented in this encounter Visit Diagnoses Diagnosis Knee injury - Primary Injury, other and unspecified, knee, leg , ankle, and foot Knee joint replacement by other means Knee injury Injury, other and unspecified, knee, leg , ankle, and foot documented in this encounter Care Teams Finger Grip Machine Operator Relationship Specialty Start Date End Date Unassigned, Provider PCP - General 06/17/00 03/18/[address] [place] [id number] documented as of this encounter
--- OUTSIDE RECORDS SUMMARY | 2022-07-02 13:57 | XMS_ITS | Encounter Summary ---
:1950 Author Organization [employer] Address [address] [address] Care Team Providers Name Role Phone Unassigned, Provider Primary Care Provider Unavailable Encounter Details Date Type Department Care Team Description 12/10/2000 Office Visit [facility] Golden Dumont MUNOLOGICAL FIND OTHR OR UNSPEC; MD Rosamaria JOINT PAIN-STEVEN LEIGH DC Social History Tobacco Use Types Packs/Day Years Used Date Smoking Tobacco: Never Assessed Sex Assigned at Date Recorded Not on file documented as of this encounter Consult Notes Golden Dumont - 12/10/2000 12:00 AM CDTALLERGIES: Ilosone. MEDICATIONS: Avandia 2 mg b.i.d. Glucophage 850 mg b.i.d. Hydrochlorothiazide 50 mg per day. Ibuprofen 800 mg t.i.d. Lipitor 10 mg per day. Prometrium 100 mg days 16-25. Weight 244 pounds. Blood pressure 130/76. Pulse 104. CHIEF COMPLAINT: Increasing joint pain. HISTORY OF PRESENT ILLNESS: Ms. Diaz is a 50-year-old woman seen at the request of Dr. Elsye Paredes. The patient has had some bilateral knee pain for a number of years. In general the knees have been aggravated by stairs or excessive walking. Ibuprofen has been of some benefit. She has had some trauma to the right knee. She rarely feels like the right knee is going to buckle under her. It has not locked. However over the past one month she has noted increasing knee discomfort. This has been associated with a generalized progressive increase in joint aches and pains in a variety of areas, but especially the hands and feet. She does not really think of any joints as having looked swollen or being red or warm. She is describing a stiffness throughout the fingers, worse in the morning. She can not really localize it to specific joints, although seems to pick out PIPs more than DIPs or MCPs. She has also re-developed paresthesias in the first three fingers of both hands, brought on by simple activities such as holding up the paper. She evidently had some problems with carpal tunnel syndrome in the past that resolved. She occasionally notes a sharp pain through the hands that lasts only seconds. She does not really think of the wrists themselves as causing troubles. She has had some aching in the elbows and ankles. She has had more significant pain on the dorsum of the feet. She does not really localize this to the MTPs specifically. She has not recently had heel pain, although she has had some troubles with that in the past. She is denying problems in the shoulders or hips. She denies problems in the neck, upper back or lower back. Associated with this has been significant fatigue. 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 She has had some blotchy erythema on her forearms. She does not think she has had any other rashes over this time. She advanced her ibuprofen from 600 mg t.i.d. to 800 mg t.i.d. with minimal improvement. She is unsure what aggravates joint discomfort. Morning is the worst time of the day, but the stiffness lasts only a matter of minutes. She denies any significant sleep disorder, although she thinks of herself as not getting enough sleep. She saw Dr. Paredes one week ago and had some laboratory testing, showing normal chemistries. Sed rate was elevated at 41 and rheumatoid factor was positive at 98.5. SABRINA was negative. The patient denies a history of rash compatible with psoriasis. She denies symptoms of inflammatory bowel disease or Lisbet's syndrome. She denied symptoms of systemic lupus or other diffuse connective tissue diseases. She is exposed to high school kids but not small children with rash, fever or illnesses. She denies any exposure to hepatitis, needle sticks or blood transfusions. REVIEW OF SYSTEMS: Weight stable. No fevers, chills or sweats. Skin-some past eczema. HEENT negative. Cardiorespiratory-does not smoke. GI negative. -periods are regular on progesterone. Neuropsychiatric-paresthesias in hands. PAST MEDICAL HISTORY: Allergy to Ilozone. No significant surgery. FAMILY HISTORY: She thinks her mother may have both rheumatoid arthritis and osteoarthritis, although the history sounds more like osteoarthritis. Evidently the mother has alcohol problems. SOCIAL HISTORY: , no children. Does not smoke or drink alcohol. Does not exercise on a regular basis. 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 O: Overweight middle-aged woman in no acute distress. Oriented x 3. Reasonable historian and memory. Skin-no definite rash. She has some erythema on her forearms. Nodes-she had a 1.5 cm node in the right supraclavicular area. HEENT-teeth in good repair. Conjunctiva without erythema or jaundice. Lids normal. EOMs intact. PERRLA. Neck-normal range of motion. Thyroid not enlarged. No tender points. Lungs clear to auscultation and percussion. Heart-1/6 systolic murmur at the base. Abdomen obese, normal bowel sounds, soft, nontender, no masses or organomegaly. Pelvic and rectal not done. Back-no CVA tenderness, normal range of motion. No localized bony or soft tissue tenderness. Neurologic-reflexes were decreased but symmetrical. Proximal and distal strength was normal. She had positive Tinel's signs at both wrists. Extremities-no definite joint swelling in large or small joints, upper or lower extremities. There is no swelling in the small hand joints or MTPs. There is some nodularity along some of the flexor tendons of the palms of the hands, but I can close all the fingers into a tight flexion without difficulty at the present time. Wrists, elbows and shoulders unremarkable. Hips and knees are unremarkable. She has some pedal edema bilaterally going up the legs. Her ankle exams are difficult. There does seem to be swelling in the tendon sheath of the anterior tibialis tendon anteriorly. She has diffuse puffiness on the dorsum of the feet and is tender in that area, but that is really along the shafts of the metatarsals and not really on the MTP joints, which really are not particularly tender. IMPRESSION: 1. Arthralgias, positive rheumatoid factor. Diagnosis unclear. 2. Bilateral carpal tunnel syndrome. PLAN: I can not make a diagnosis of rheumatoid arthritis without documenting swollen joints. Even with swollen joints one would never make a diagnosis of rheumatoid arthritis until the joint swelling had been persistent for greater than six weeks. There are a variety of viruses that can cause a transient arthritis that typically resolves in less than six weeks. The most common one would be Parvovirus 19. Hepatitis viruses can also be associated with arthritis and positive rheumatoid factors. At the moment I think we simply need to observe this and see what develops. I am going to check a few laboratory tests. This will include antibodies to Parvovirus 19, antibodies to hepatitis C and TSH. I am going to recheck the sed rate and also a CRP as well as a CK. I will see her back in about three weeks for second joint exam. She was told to call if she thinks something actually swells in the meantime. She will continue with the ibuprofen. Diabetics can have carpal tunnel syndrome and flexor tenosynovitis in the hands. That usually correlates with a long history of poorly controlled diabetes. The patient says that her hemoglobin A1Cs have been quite good for the past year. Dictated but not reviewed IN SUMMARY: ARTHRALGIAS, POSITIVE RHEUMATOID FACTOR/ BILATERAL CARPAL TUNNEL SYNDROME cc: MD Elyse Kincaid MD - [facility], [address] [place] [address] documented in this encounter Plan of Treatment Upcoming Encounters Date Type Specialty Care Team Description 08/13/2022 Appointment Radiology Denise Aguirre APRN, SPECIAL AGENT GROUP INSURANCE [address] [place], [place] [address] (Wo rk) 08/13/2022 Appointment Hematology and Oncology Denise Aguirre APRN, [employer] AGENT [employer] INSURANCE [address] [place], [place] [address] (Wo rk) documented as of this encounter Visit Diagnoses Diagnosis Other and unspecified nonspecific immuno logical findings Pain in joint, multiple sites documented in this encounter Care Teams Oenologist Relationship Specialty Start Date End Date Unassigned, Provider PCP - General 06/17/00 03/18/17 [address] [place] [address] documented as of this encounter
--- OUTSIDE RECORDS SUMMARY | 2022-07-02 13:57 | XMS_ITS | Encounter Summary ---
:1950 Author Organization [facility] Address [address] [place] [address] Care Team Providers Name Role Phone Elyse Paredes MD Primary Care Provider Encounter Details Date Type Department Care Team Description 01/21/2017 Scanned History External to Transferred Record, [facility] Provider Social History Tobacco Use Types [...] Team Description 08/13/2022 Appointment Radiology Denise Aguirre, TIME MOTION ANALYST, MAINSPRING FABRICATION SUPERVISOR [address] [place], [place] [address] (Wo rk) 08/13/2022 Appointment Hematology and Oncology Denise Aguirre APRN, MAINSPRING FABRICATION SUPERVISOR [address] [place], [place] [address] (Wo rk) documented as of this encounter Visit Diagnoses Not on filedocumented in this encounter Care Teams Public Health Dietitian Relationship Specialty Start Date End Date Elyse Paredes MD PCP - General Family Practice 03/19/17 [address] [place], [place] [id number] documented as of this encounter
--- OUTSIDE RECORDS SUMMARY | 2022-07-02 13:57 | XMS_ITS | Encounter Summary ---
:1950 [facility] Organization [facility] Address [address] [place] [address] Care Team Providers Name Role Phone Unassigned, Provider Primary Care Provider Unavailable Encounter Details Date Type Department Care Team Description 05/19/2002 Orders Only External to Unknown, [facility] [address] [place], [place] [address] (Wo rk) Social History Tobacco Use Types Packs/Day Years Used Date Smoking Tobacco: Never Assessed Sex Assigned at Date Recorded Not on file documented as of this encounter Procedure Notes Elyse Paredes - 05/19/2002 12:00 AM CDTAssociated Order(s): ULTRASOUND documented in this encounter Plan of Treatment Upcoming Encounters Date Type Specialty Care Team Description 08/13/2022 Appointment Radiology Denise Aguirre APRN, ITALIAN TUTOR [address] [place], [place] [address] (Wo rk) 08/13/2022 Appointment Hematology and Oncology Denise Aguirre APRN, ITALIAN TUTOR [address] [place], [place] [address] (Wo rk) documented as of this encounter Procedures Procedure Name Priority Date/Time Associated Comments Diagnosis UNLISTED ULTRASOUND 05/19/2002 12:00 AM R esults for this PROCEDURE CDT procedure are i n the results section. documented in this encounter Results ULTRASOUND (05/19/2002 12:00 AM CDT) Anatomical Region Laterality Modality Other Narrative 05/19/2002 12:00 AM CDT This result has an attachment that is no t available. Ordered by an unspecified provider. Transcriptions Elyse Paredes - 05/19/2002 12:00 AM CDT Physician Unknown PROC_2 documented in this encounter Visit Diagnoses Not on filedocumented in this encounter Care Teams Simulation Software Engineer Relationship Specialty Start Date End Date Unassigned, Provider PCP - General 06/17/00 03/18/[address] [place] [id number] documented as of this encounter
--- OUTSIDE RECORDS SUMMARY | 2022-07-02 13:57 | XMS_ITS | Encounter Summary ---
:1950 Author Organization [employer] Address [address] [place] [address] Care Team Providers Name Role Phone Unassigned, Provider Primary Care Provider Unavailable Reason for Visit Reason Onset Date Comments BACK PAIN 05/09/2004 Encounter Details Date Type Department Care Team Description 05/09/2004 Telephone Careline Erick Slade RN BACK PAIN [address] [place], [place] [address] Social History Tobacco Use Types Packs/Day Years Used Date Smoking Tobacco: Never Assessed Sex Assigned at Date Recorded Not on file documented as of this encounter Nursing Notes 05/09/2004 11:59 PM CDT >> ERICK SLADE Fri May 09, 2004 9:10 PM TRIAGE REFERENCE: BACK PAIN/TRAUMA CNG (c) 2002 STAT SYMPTOMS: None per guideline ASSESSMENT: Injury/Incident: severe pain, left side, 3 above hip bone on side. She was diagnosed with kidn ey stone 2 weeks ago.. Location of pain: see above, Radiation: No, Quality of pain: Steady and Moderate. Onset of symptoms: Ongoing and Sudden; Duration: 1/2 hour Neuro symptoms: None. UTI symptoms: Flank pain, hx kidney stone. Other concerns: . Aggravating factors: taking big deep breath Relieving factors tried: none. H/O back injury/surgery: No PMH: Healthy/diabetic type 2 CURRENT MEDICATIONS: Yes: metformin,advadia, lipitor,lisinipril, baby asa, ibuprofen, hctz, MEDICATION ALLERGIES: No HOME TREATMENT: ICE: 20 - 40 min 3-6x daily for the first few days ASA or Ecotrin 650 mg. 4 hrs with food. Acetaminophen may be used instead if stomach upset is reported with ASA or Ecotrin Ibuprofen 200-400 mg q 4 hr, 600 mg q 6 hr, 800 mg q 8 hr with food PLAN: Home treat & monitor symptoms, call back if they increase or if concerns documented in this encounter Plan of Treatment Upcoming Encounters Date Type Specialty Care Team Description 08/13/2022 Appointment Radiology Denise Aguirre APRN, RADIOLOGY EQUIPMENT SERVICER [address] [place], [place] [address] (Wo rk) 08/13/2022 Appointment Hematology and Oncology Denise Aguirre APRN, RADIOLOGY EQUIPMENT SERVICER [address] [place], [place] [address] (Wo rk) documented as of this encounter Visit Diagnoses Not on filedocumented in this encounter Care Teams Creative Designer Relationship Specialty Start Date End Date Unassigned, Provider PCP - General 06/17/00 03/18/17 [address] [place] [address] documented as of this encounter
--- OUTSIDE RECORDS SUMMARY | 2022-07-02 13:57 | XMS_ITS | Encounter Summary ---
:1950 Author Organization [facility] Address [address], [place] [address] Care Team Providers Name Role Phone Unassigned, Provider Primary Care Provider Unavailable Reason for Visit Reason Comments SORE THROAT, Encounter Details Date Type Department Care Team Description 03/31/2009 Office Visit [facility] (Primary Dx) [address] [place] [address] Social History Tobacco Use Types Packs/Day Years Used Date Smoking Tobacco: Never Assessed Sex Assigned at Date Recorded Not on file documented as of this encounter Last Filed Vital Signs Vital Sign Reading Time Taken Comments Blood Pressure 112/74 03/31/2009 3:15 PM CDT Pulse 120 03/31/2009 3:15 PM CDT Temperature 36.9 ??C (98.5 ??F) 03/31/2009 3:15 PM CDT Respiratory Rate 15 03/31/2009 3:15 PM CDT Oxygen Saturation 96% 03/31/2009 3:15 PM CDT Inhaled Oxygen Concentration - - Weight - - Height - - Body Mass Index - - documented in this encounter Patient Instructions Patient InstructionsPosterJeimy - 03/31/2009 3:37 PM CDT Strep Throat (Streptococcal Pharyngitis) You have been diagnosed with having a streptococcal infection in the throat. This is caused by the bacteria called streptococcus pyogenes or group a streptococcus. This means that your throat may be red and swollen, tonsils may be enlarged, there may be pus in the back of the throat, there may be red spots on the roof of the mouth, you may have a headache, fever, rash, or stomach ache. Antibiotics are given to prevent complications from the strep infection such as rheumatic fever and to reduce the amount of time you are contagious. Your provider will have given you a prescription for an antibiotic medication to fight the infection. Please take it as directed. Do not stop the medication even if you are feeling better. This means take the medication till it is gone. Most people are no longer contagious 24-48 hours after starting the antibiotic medication. In order to keep yourself more comfortable you should: ?? Take acetaminophen (Tylenol??) or Ibuprofen (Advil?? or Motrin??) Increase your fluids Get plenty or rest Eat soft foods Humidify the air at home with a room humidifier Avoid smoke if you do not smoke. Quit smoking if you do Gargle with warm salt water (1/2 teaspoon of salt to 8 oz water), 50/50 mixture of hydrogen peroxideand water, or dissolve one ibuprofen tablet in 8 oz of water In order NOT to give strep to someone else: ?? Wash your hands often or use alcohol containing hand sanitizers Use tissues Cover your mouth and nose when you sneeze or cough Don???t share drinking glasses, utensils or toothbrushes. Throw your current toothbrush away Stay home from work or school till you have been on antibiotic medication for at least 24 hours You do not need to follow up with your provider if your symptoms are resolving. Call or seek medical attention IMMEDIATELY if: ?? You or your child have difficulty swallowing or breathing Excessive drooling occurs in a young child Symptoms of dehydration occur such as sunken eyes, severe weakness or decreased urine output Call the clinic or nurse line if: ?? Your symptoms are not improving after having taken medication for 48 hours You develop a red rash that feels like sandpaper Fever lasts for longer than 48 hrs You develop pain or swelling in the joints You develop cola colored urine ?? You have recurring sore throats documented in this encounter Progress Notes Jeimy Feldman - 03/31/2009 4:22 PM CDT Addended by: JEIMY FELDMAN on: 03/31/2009 Modules accepted: Orders Jeimy Feldman - 03/31/2009 3:37 PM CDT Subjective Marci Diaz is a 58 yr old female here with no one else, who present with a complaint of sore throat for 5 days. HPI The sore throat is described as making it hard to swallow, scratchy and severe. PMH Strep Exposure? none [place] Exposure? none Strep History? No ROS Other symptoms none. Current outpatient prescriptions Medication Sig ??? aspirin 325 MG tablet Take one tablet by mouth every day. ??? celecoxib (CELEBREX) 100 MG capsule daily ??? Hydrochlorothiazide 12.5 MG capsule 5 mg daily ??? lisinopril (AKA ZESTRIL) 2.5 MG tablet Take one tablet by mouth every day. ??? metFORMIN (GLUCOPHAGE) 500 MG tablet BID Review of patient's allergies indicates no known allergies. Objective BP 112/74 Pulse 120 Temp(Src) 98.5 ??F (36.9 ??C) (Tympanic) Resp 15 SpO2 96% General Appearance: well developed, well nourished and in no acute distress Ears: R TM WNL: pearly, maciel with good light reflex L TM WNL: pearly, maciel with good light reflex Nose and Sinuses: normal Throat: marked erythema and exudates present Neck: normal, supple and no adenopathy Lungs: clear to auscultation, no wheezes, rales or rhonchi bilaterally Abdomen: not examined Skin: clear Test results: Rapid Strep: Negative Throat Culture: pending [place]: Not done Assessment Strep pharyngitis per exam Plan RX: Pen V - use as directed Throat culture pending F/u if no improvement or worsening symptoms AVS printed and given to pt. See patient education and prescribed medications. Jeimy Feldman PA-C documented in this encounter Plan of Treatment Upcoming Encounters Date Type Specialty Care Team Description 08/13/2022 Appointment Radiology Denise Aguirre, PRODUCT MARKETING SPECIALIST, VIGOUREUX PRINTER [address] [place], [place] [address] (Wo rk) 08/13/2022 Appointment Hematology and Oncology Denise Aguirre APRN, VIGOUREUX PRINTER [address] [place], [place] [address] (Wo rk) documented as of this encounter Procedures Procedure Name Priority Date/Time Associated Diagnosis Comme nts STREP GRP A, Routine 03/31/2009 4:22 PM Streptococcal Sore Res ults for this THROAT CULTURE CDT Throat procedure are in ONLY the results section. STREP GRP A, RAPID Waiting 03/31/2009 3:47 PM Streptococcal So re Results for this SCREEN CDT Throat procedure are i n the results section. documented in this encounter Results STREP GRP A, THROAT CULTURE ONLY (03/31/2009 4:22 PM CDT) PathAnesco gist Method Time Signature Grp A Culture Negative [facility] Final Specimen Anatomical Collection Method Collection Time Receive d Time (Source) Location / / Volume Laterality 03/31/2009 4:22 PM 9 4:25 CDT PM CDT Jeimy Kang PA-C LAB_1 Performing Organization Address City/[facility] Code Phon e Number [facility] [phone] [facility] [address] [place] [phone] (ABNORMAL) STREP GRP A, RAPID SCREEN (03/31/2009 3:47 PM CDT) [facility] Method Time Signature Grp A Rapid Negative [facility] Screen Grp A Culture Cancelled by [facility] Final provider (A) Specimen Anatomical Collection Method Collection Time Receive d Time (Source) Location / / Volume Laterality 03/31/2009 3:47 PM 9 4:01 CDT PM CDT Jeimy Kang PA-C LAB_1 Performing Organization Address City/[facility] Phon e Number [facility] [phone] [facility] [address] [place] [phone] documented in this encounter Visit Diagnoses Diagnosis Streptococcal sore throat - Primary documented in this encounter Care Teams Elevator Constructor Electric Relationship Specialty Start Date End Date Unassigned, Provider PCP - General 06/17/00 03/18/17 [address] [place] [address] documented as of this encounter
--- OUTSIDE RECORDS SUMMARY | 2022-07-02 13:57 | XMS_ITS | Encounter Summary ---
:1950 Author Organization [employer] Address [address] [address] Care Team Providers Name Role Phone Elyse Paredes MD Primary Care Provider Encounter Details Date Type Department Care Team Description 01/21/2017 Orders Only External to Elyse Paredes MD [address] [place], [place] [address] (Wo rk) Social History [...] Team Description 08/13/2022 Appointment Radiology Denise Aguirre, RESIDENT SERVICES DIRECTOR, FEED MANAGEMENT ADVISOR [address] [place], [place] [address] (Wo rk) 08/13/2022 Appointment Hematology and Oncology Denise Aguirre APRN, FEED MANAGEMENT ADVISOR [address] [place], [place] [address] (Wo rk) documented as of this encounter Procedures Procedure Name Priority Date/Time Associated Diagnosis Comme nts SCANNED LAB 01/21/2017 12:00 AM Results for this CDT procedure are i n the results section . documented in this encounter Results SCANNED LAB (01/21/2017 12:00 AM CDT) Specimen (Source) Anatomical Location Collection Method / Collectio n Time Received Time / Laterality Volume 01/21/2017 Narrative This result has an attachment that is no t available. Elyse Paredes MD LAB_1 documented in this encounter Visit Diagnoses Not on filedocumented in this encounter Care Teams Time Study Statistician Relationship Specialty Start Date End Date Elyse Paredes MD PCP - General Family Practice 03/19/17 [address] [place] [address] documented as of this encounter
--- OUTSIDE RECORDS SUMMARY | 2022-07-02 13:57 | XMS_ITS | Encounter Summary ---
:1950 Author Organization [facility] Address [address], [place] [address] Care Team Providers Name Role Phone Unassigned, Provider Primary Care Provider Unavailable Encounter Details Date Type Department Care Team Description 04/04/2011 Imaging [place] [facility] Knee injury [address] [place] [address] Social History Tobacco Use Types Packs/Day Years Used Date Smoking Tobacco: Former Cigarettes Quit : 08/02/1981 Alcohol Use Standard Drinks/Week Comments Not Asked 0 (1 standard drink = 0.6 oz pure alcoho l) Sex Assigned at Date Recorded Not on file documented as of this encounter Progress Notes Erika Delgado RN - 04/09/2011 6:03 PM CDT Quick Note: Results noted.Erika Delgado RN 04/09/2011, 6:03 PM documented in this encounter Plan of Treatment Upcoming Encounters Date Type Specialty Care Team Description 08/13/2022 Appointment Radiology Denise Aguirre APRN, MARKET RESEARCH ASSOCIATE [address] [place], [place] [address] (Wo rk) 08/13/2022 Appointment Hematology and Oncology Denise Aguirre APRN, MARKET RESEARCH ASSOCIATE [address] [place], [place] [address] (Wo rk) documented as of this encounter Procedures Procedure Name Priority Date/Time Associated Diagnosis Comme nts XR KNEE BILAT AP STAT 04/04/2011 12:57 PM Knee injury Resu lts for this W/LAT/SUN/PA LT CDT procedure ar e in the results section. documented in this encounter Results XR KNEE AP/LAT/SUN/PA ADULT [...] knees, right knee arthroplasty is visualized. Susanna MEJIA GD documented in this encounter Visit Diagnoses Diagnosis Knee injury Injury, other and unspecified, knee, leg , ankle, and foot documented in this encounter Care Teams Door Furring Installer Relationship Specialty Start Date End Date Unassigned, Provider PCP - General 06/17/00 03/18/[address] [place] [address] documented as of this encounter
--- OUTSIDE RECORDS SUMMARY | 2022-07-02 13:57 | XMS_ITS | Encounter Summary ---
:1950 Author Organization [facility] Address [address] [place] [address] Care Team Providers Name Role Phone Unassigned, Provider Primary Care Provider Unavailable Reason for Visit Procedure/Equipment (Routine) - Incomplete Specialty Diagnoses / Procedures Referred By Contact Refer red To Contact Procedures Provider, Foreign Images Foreign Image(S) Mammogram [address] [place] [address] Referral ID Status Reason Start Date Expiration Date Visits V isits Requested Authorized [id number] Incomplete 07/19/2018 10/18/2019 1 1 Encounter Details Date Type Department Care Team Description 08/13/2011 Ancillary Procedure [facility] PACS Provider, Foreign [address] [place] [id number] [address] [place] [address] Social History Tobacco Use Types Packs/Day Years Used Date Smoking Tobacco: Former Cigarettes Quit : 08/02/1981 Alcohol Use Standard Drinks/Week Comments Not Asked 0 (1 standard drink = 0.6 oz pure alcoho l) Sex Assigned at Date Recorded Not on file documented as of this encounter Plan of Treatment Upcoming Encounters Date Type Specialty Care Team Description 08/13/2022 Appointment Radiology Denise Aguirre, PATIENT NAVIGATOR, TREKKING GUIDE [address] [place], [place] [address] (Wo rk) 08/13/2022 Appointment Hematology and Oncology Denise Aguirre APRN, TREKKING GUIDE [address] [place], [place] [address] (Wo rk) documented as of this encounter Procedures Procedure Name Priority Date/Time Associated Diagnosis Comme nts FOREIGN IMAGE(S) Routine 08/13/2011 12:00 AM Resu lts for this MAMMOGRAM BILATERAL DIGITAL CONTENT SPECIALIST procedur e are in SCREENING the results section. documented in this encounter Results Foreign Image(S) Mammogram Bilateral Screening (08/13/2011 12:00 AM DIGITAL CONTENT SPECIALIST) Specimen (Source) Anatomical Location Collection Method / Collectio n Time Received Time / Laterality Volume Narrative EXTERNAL RESULTS - 07/19/2018 2:10 PM CS T These outside images have been uploaded into PACS. If the results were provided, they will be located in the anil restrepo's chart under the Media or Imaging tab. Foreign Images Provider RAD NON-REPORTABLES Performing Organization Address City/State/ZIP Code Phon e Number EXTERNAL RESULTS documented in this encounter Visit Diagnoses Not on filedocumented in this encounter Care Teams Preschool Assistant Teacher Relationship Specialty Start Date End Date Unassigned, Provider PCP - General 06/17/00 03/18/[address] [place] [address] documented as of this encounter
--- OUTSIDE RECORDS SUMMARY | 2022-07-02 13:57 | XMS_ITS | Encounter Summary ---
:1950 Author Organization [employer] Address [address] [place] [address] Care Team Providers Name Role Phone Elyse Paredes MD Primary Care Provider Encounter Details Date Type Department Care Team Description 08/13/2011 Orders Only External to [facility] No Primary/Referring, [...] Specialty Care Team Description 08/13/2022 Appointment Radiology Dneise Aguirre, PAVING MACHINE OPERATOR, BROADCAST CHIEF ENGINEER [address] [place], [place] [address] (Wo rk) 08/13/2022 Appointment Hematology and Oncology Denise Aguirre APRN, BROADCAST CHIEF ENGINEER [address] [place], [place] [address] (Wo rk) documented as [...] Date/Time Associated Diagnosis Comme nts BREAST IMAGING 08/13/2011 12:00 AM Result s for this HONEY LIQUEFIER procedure are i n the results section . documented in this encounter Results BREAST IMAGING (08/13/2011 12:00 AM HONEY LIQUEFIER) Anatomical Region Laterality Modality Breast Other Specimen (Source) Anatomical Location Collection Method / Collectio n Time Received Time / Laterality Volume 08/13/2011 Narrative This result has an attachment that is no t available. Phy No Primary/Referring RAD_BI documented in this encounter Visit Diagnoses Not on filedocumented in this encounter Care Teams River Transportation Worker Relationship Specialty Start Date End Date Elyse Paredes MD PCP - General Family Practice 03/19/17 [address] [place] [address] documented as of this encounter
--- OUTSIDE RECORDS SUMMARY | 2022-07-02 13:57 | XMS_ITS | Encounter Summary ---
:1950 Author Organization [employer] Address [address] [place] [address] Care Team Providers Name Role Phone Elyse Paredes MD Primary Care Provider Encounter Details Date Type Department Care Team Description 03/27/2015 Orders Only External to [facility] No Primary/Referring, [...] Description 08/13/2022 Appointment Radiology Denise Aguirre, TECHNICAL SUPPORT ENGINEER, VP INFORMATION TECHNOLOGY [address] [place], [place] [address] (Wo rk) 08/13/2022 Appointment Hematology and Oncology Denise Aguirre APRN, VP INFORMATION TECHNOLOGY [address] [place], [place] [address] (Wo rk) documented as [...] Date/Time Associated Diagnosis Comme nts BREAST IMAGING 03/27/2015 12:00 AM Result s for this CDT procedure are i n the results section . documented in this encounter Results BREAST IMAGING (03/27/2015 12:00 AM CDT) Anatomical Region Laterality Modality Breast Other Specimen (Source) Anatomical Location Collection Method / Collectio n Time Received Time / Laterality Volume 03/27/2015 Narrative This result has an attachment that is no t available. Phy No Primary/Referring RAD_BI documented in this encounter Visit Diagnoses Not on filedocumented in this encounter Care Teams Epic Interface Analyst Relationship Specialty Start Date End Date Elyse Paredes MD PCP - General Family Practice 03/19/17 [address] [place] [address] documented as of this encounter
--- OUTSIDE RECORDS SUMMARY | 2022-07-02 13:57 | XMS_ITS | Encounter Summary ---
:1950 Author Organization [facility] Address [address] [place] [address] Care Team Providers Name Role Phone Unassigned, Provider Primary Care Provider Unavailable Encounter Details Date Type Department Care Team Description 07/27/2013 Orders Only [facility] Claims MD Randee Security Contact Bill [address] [place] [address] Mailstop [id number] [phone] (Wo rk) Social History Tobacco Use Types [...] Description 08/13/2022 Appointment Radiology Denise Aguirre APRN, AUXILIARY PLANT OPERATOR [address] [place], [place] [address] (Wo rk) 08/13/2022 Appointment Hematology and Oncology Denise Aguirre APRN, AUXILIARY PLANT OPERATOR [address] [place], [place] [address] (Wo rk) documented as of this encounter Visit Diagnoses Not on filedocumented in this encounter Care Teams Information Technology Director Relationship Specialty Start Date End Date Unassigned, Provider PCP - General 06/17/00 03/18/17 [address] [place] [address] documented as of this encounter
--- OUTSIDE RECORDS SUMMARY | 2022-07-02 13:57 | XMS_ITS | Encounter Summary ---
:1950 Author Organization [employer] Address [address] [place] [address] Care Team Providers Name Role Phone Elyse Paredes MD Primary Care Provider Reason for Visit Reason Comments DIABETES EDUCATION Consult/Transfer Care (Routine) - Closed Specialty Diagnoses / Procedures Referred By Contact Refer red To Contact Diagnoses Uncontrolled diabetes mellitus type 2 without complications, unspecified medical terminologist insulin use status Miya Shin MD [address] [facility] [address] [place] [address] Referral ID Status Reason Start Date Expiration Date Visits Requ ested Visits Authorized [id number] Closed 03/19/2017 06/18/2018 1 1 Encounter Details Date Type Department Care Team Description 08/11/2017 Diabetes Ed [facility] Tanner Carranza Unco ntrolled type 2 [facility] ARMAND Ng, CDE diabetes mellitus [address] without complication, [place] [address] with long-term current [phone] use of insulin (HRC) (Primary Dx) Social History Tobacco Use Types Packs/Day Years Used Date Smoking Tobacco: Former Cigarettes Quit : 08/02/1981 Smokeless Tobacco: Never Alcohol Use Standard Drinks/Week Comments No 0 (1 standard drink = 0.6 oz pure alcoho l) Sex Assigned at Date Recorded Not on file documented as of this encounter Patient Instructions Patient InstructionsTanner Carranza RD, CDE - 08/11/2017 4:00 PM SEMICONDUCTOR PACKAGES PLATEMAKER EDUCATION PLAN / PATIENT INSTRUCTIONS Espinosa points for you to remember: Type 2 Diabetes Definition:Insulin is a hormone, made by the pancreas, that helps glucose (sugar), move from your blood vessels to the cells of your body so it can be burned for energy.In Type 2 diabetes, insulin resistance occurs, which means that the cells of your body resist the insulin causing theglucose in your blood vessel to become elevated. Testing your blood sugar at different times of the day provides information that helps make decisions about meal planning, exercise and medications. Eating regularly and keeping carbohydrate choices consistent helps keep blood sugars in good control. Eat a meal or snack at least every 4-5 hours. Your self-management goals/Action Plan: Being Active: Continue with Cardiac Rehab, 3 days per week, and work on gradually increasing your daily exercise on other days. Eating Healthy: Try and limit 30-45 grams carb per meal and 15 grams carb per snack. Work on healthy evening snack, such as raw carrots or fresh fruit or low fat yogurt. Monitoring My Diabetes: Continue to check blood sugars before each meal and bedtime. Diabetes Medication: Continue Basaglar 60 units (two 30 unit injections) in am Increase Novolog 10 units before each meal, plus correction: add 1 unit per 50 points, starting at 150 After successful cardioversion, start: ??-Start Trulicity 0.75 mg weekly; you can increase to 1.5 mg weekly in about one month if you are doing well on the medication. -Start Metformin Extended Release; often there are [...] you tolerated and stay on this dose ?? -Decide whether you want to start the metformin or the Trulicity first; this is so that in the eventyou have any side effects, we can tell which medication may have caused the side effect. ?? -Discontinue Novolog with meals, per Gabrielle Morris CNP, when start Trulicity. Appointments to be scheduled (Appointment center [phone]): Follow up with Dr. Shin on 10/20/17 at 2:15pm. Bring meters for download, The following vaccines are recommended for people with diabetes: Annual influenza, pneumococcal pneumonia, Hepatitis B series. If you are having unexplained low blood glucose (less than 70) or blood glucose over 250 often, or any questions or urgent concerns, please contact your primary care provider, Elyse Paredes MD, at [phone] or send an email message through [email or web address]. For after hours care, call [facility] at [phone]. For emergencies, please call 911. If you have questions or problems with use of your blood glucose meter, call the 800 number on the back of the meter. Please bring your meter and logbook to all appointments. Please contact your pharmacy for medication refills. CONDUCTOR PACKAGES PLATEMAKER documented in this encounter Progress Notes Tanner Carranza RD, CARMENE - 08/11/2017 4:00 PM CST Marci Diaz is referred by Dr. Miya Shin for Diabetes Education for Type 2 Diabetes, diagnosed in late . Her PCP is at [facility]. She had aortic valve replacement surgery Jul 05 and found to have atrial fib ~[place]. Started on Warfarin and beta elpidio. She will have cardioversion if INR in range for ~3wks, which may be end of August. Hesitant to start any new meds, until has successful cardioversion. She uses 3 different meters, but did not bring with her today. 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 Father had Type 1 diabetes Reason for visit per patient: discuss Trulicity vs Metformin to help decide which I should start first Comorbidities affecting diabetes care: hypertension, dyslipidemia, DEDE, obesity Diabetes Complications: none How do you feel about your diabetes and your health? my body seems to be falling apart since I reached my 60's. I would like to get off Humalog, if I can tolerate Metformin ER and Trulicity. I want toget back my energy so I can exercise more and lose some weight. Previous diabetes medications: Initially used metformin, then Lantus added; had GI symptoms, stoppedmetformin, and GI symptoms resolved; restarted metformin ER and GI symptoms returned; discontinued again; has had difficulty controlling blood sugars since; tried Victoza for <1 month, with minimal change in BG, so stopped Current diabetes medications: Basaglar 60 units (30 units x2) in am and Humalog 6 units before each meal, plus correction: adds 1 unit per 50 points, starting at 150. Notes usually needs at least 10 units. Physical Activity: Currently Cardiac Rehab -- 15 mn treadmill and 25 mn other machine Eating Habits: not much of a cook Breakfast 7:15am (work): Glucerna Hunger Smart Shake (16 gm carb) Or home: Swedish muffin w/peanut butter, low sugar jam, diet pop Lunch 10:45am (work): Glucerna shake Snack 1-3pm: apple or granola bar Supper 5pm: Wt Watcher meal OR meat or chicken w/salad or potato 7pm: snack on too much crunchy things (sesame sticks, nuts, quinoa crackers)- try to keep hands busy ie read, online Scrabble Beverages: Glucerna Shake, diet pop, water Hypoglycemia history: no recent problems SMBG pattern/BG ranges: uses 2 Accu-check meters and a John meter that she can connect to Smartphone Date of last foot exam: due Date of last eye exam: not addressed ASSESSMENT Diagnosis: 1. Uncontrolled type 2 diabetes mellitus without complication, with long-term current use of insulin(HRC) Recommended diabetes medication changes: See patient instructions Reasons for diabetes medication changes: see AVS See Diabetes/Nutrition Education Report for educational assessment, topics reviewed, return demonstration. Taught care/use of Trulicity pen and provided written information on how it works. EDUCATION PLAN / PATIENT INSTRUCTIONS Espinosa points for you to remember: Type 2 Diabetes Definition:Insulin is a hormone, made by the pancreas, that helps glucose (sugar), move from your blood vessels to the cells of your body so it can be burned for energy.In Type 2 diabetes, insulin resistance occurs, which means that the cells of your body resist the insulin causing theglucose in your blood vessel to become elevated. Testing your blood sugar at different times of the day provides information that helps make decisions about meal planning, exercise and medications. Eating regularly and keeping carbohydrate choices consistent helps keep blood sugars in good control. Eat a meal or snack at least every 4-5 hours. Your self-management goals/Action Plan: Being Active: Continue with Cardiac Rehab, 3 days per week, and work on gradually increasing your daily exercise on other days. Eating Healthy: Try and limit 30-45 grams carb per meal and 15 grams carb per snack. Work on healthy evening snack, such as raw carrots or fresh fruit or low fat yogurt. Monitoring My Diabetes: Continue to check blood sugars before each meal and bedtime. Diabetes Medication: Continue Basaglar 60 units (two 30 unit injections) in am Increase Novolog 10 units before each meal, plus correction: add 1 unit per 50 points, starting at 150 After successful cardioversion, start: ??-Start Trulicity 0.75 mg weekly; you can increase to 1.5 mg weekly in about one month if you are doing well on the medication. -Start Metformin Extended Release; often there are [...] you tolerated and stay on this dose ?? -Decide whether you want to start the metformin or the Trulicity first; this is so that in the eventyou have any side effects, we can tell which medication may have caused the side effect. ?? -Discontinue Novolog with meals, per Gabrielle Morris CNP, when start Trulicity. Appointments to be scheduled (Appointment center [phone]): Follow up with Dr. Shin on 10/20/17 at 2:15pm. Bring meters for download, The following vaccines are recommended for people with diabetes: Annual influenza, pneumococcal pneumonia, Hepatitis B series. If you are having unexplained low blood glucose (less than 70) or blood glucose over 250 often, or any questions or urgent concerns, please contact your primary care provider, Elyse Paredes MD, at [phone] or send an email message through [email or web address]. For after hours care, call [facility] at [phone]. For emergencies, please call 911. If you have questions or problems with use of your blood glucose meter, call the 800 number on the back of the meter. Please bring your meter and logbook to all appointments. Please contact your pharmacy for medication refills. Time spent with the patient: 60 minutes for diabetes education and counseling. Jazmin Carranza RD, CALE 08/11/2017, 4:11 PM CONDUCTOR PACKAGES PLATEMAKER documented in this encounter Plan of Treatment Upcoming Encounters Date Type Specialty Care Team Description 08/13/2022 Appointment Radiology Denise Aguirre APRN, GASFITTER [address] [place], [place] [address] (Wo rk) 08/13/2022 Appointment Hematology and Oncology Denise Aguirre APRN, GASFITTER [address] [place], [place] [address] (Wo rk) documented as [...] Education Diabetes Education No Tanner Carranza, diabetes ARMAND, CDE Note: Formatting of this note might be d ifferent from the original. Monitoring My Diabetes: Continue to chec k blood sugars before each meal and bedtime. documented as of this encounter Visit Diagnoses Diagnosis Uncontrolled type 2 diabetes mellitus wi thout complication, with long-term current use of insulin - Primary documented in this encounter Care Teams Pressure Sealer And Tester Relationship Specialty Start Date End Date Elyse Paredes MD PCP - General Family Practice 03/19/17 [address] [place] [address] documented as of this encounter
[2022-07-02 14:40] LABS: Chloride* 107 mmol/L (96-114)
[2022-07-02 14:41] LABS: Potassium* 4.3 mmol/L (3.6-5.1); Sodium* 138 mmol/L (135-149)
[2022-07-02 14:43] LABS: Carbon Dioxide* 27 mmol/L (20-32); Cholesterol* 155 mg/dL (90-199); Creatinine* 1.3 mg/dL (0.5-1.5); Estimated Glomerular Filt Rate 44 ml/min
[2022-07-02 14:44] LABS: Blood Urea Nitrogen* 19 mg/dL (7-30); Calcium* 9.9 mg/dL (8.4-10.6); Glucose* 102 mg/dL (60-115); HDL Cholesterol* 58 mg/dL (>=50); LDL Cholesterol Calculated 69 mg/dL (<100); Triglycerides* 142 mg/dL (40-149)
== END 2022-07-02 08:08 | disposition home or self-care (01) ==
PROVIDERS: PCP Internal Medicine; Visit Provider Internal Medicine
DX: E78.5 Hyperlipidemia, unspecified (principal); E11.9 Type 2 diabetes mellitus without complications
CPT/HCPCS: 80048; 80061

== ENCOUNTER 2022-07-09 14:07 | Outpatient (CLI) | payer MEDICARE, SELFPAY ==
--- OUTSIDE RECORDS SUMMARY | 2022-07-09 14:16 | XMS_ITS | Encounter Summary ---
:1950 Author Organization [facility] Address [address] [place] [address] Care Team Providers Name Role Phone Dagmar Kang MD Unavailable Raghu Bae MD Primary Care Provider [phone] Nicole Salazar APRN CHECK CASHIER Unavailable Reason for Visit Reason Onset Date Comments Pre-LAAC Imaging 04/23/2022 Encounter Details Date Type Department Care Team Description 04/23/2022 Telephone [facility] Keshia Andrew, Pre-[facility] Imaging Clinic Aníbal CAIN [address] [facility] [address] [place] [address] Social History Tobacco Use [...] date, she was hoping to go to [place] for [place] with her friend, as it is a bucket list item for her. She would like to wait til September for her procedure. Will keep her name for future consideration and call patient back in early July to discuss plan moving forward. She is appreciative. She has engineering writer's direct number for further questions or concerns. No further questions at this time. [facility] Telephone Encounter - Keshia Andrew [...] as this is an insurance required visit. Aviation Medicine Specialist will see if Dr. Kang can addend previous documentation and if not, she will be scheduled for SDM appt with Dr. Kang. She verbalized understanding. Patient voices concern over her echo completed yesterday, I had the TAVR a while ago and now there is leaking across my valve. Informed patient engineering writer will follow- up with TAVR team to see if this warrants further follow-up before proceeding with LAAC. Informed her of tentative timeframe of July for procedure with Dr. Martinez. Patient appreciative. Verbalized understanding, no further questions at this time. [facility] ----- Message ----- From: Ankush Martinez MD Sent: 04/23/2022 8:23 AM CDT To: Keshia Andrew RN, * Reviewed CTA from 2017, and anatomy looks suitable for LAAC Ok to schedule Thanks ----- Message ----- From: Nicole Salazar APRN CHECK CASHIER Sent: 04/22/2022 2:43 PM CDT To: Keshia [...] on filedocumented in this encounter Care Teams Finisher Brush Relationship Specialty Start Date End Date Raghu Bae PCP - General Emergency Medicine 04/22/22 MD [facility] [address] [place] [address] Dagmar Kang MD Assigned Heart and 03/21/22 04/24/22 [address] [facility], Vascular Provider [address] [place] [address] Nicole Salazar, Assigned Heart and 04/25/22 [facility] Vascular Provider [address] [facility] [address] [place] [address] documented as of this encounter
--- OUTSIDE RECORDS SUMMARY | 2022-07-09 14:16 | XMS_ITS | Encounter Summary ---
:1950 Author Organization [place] Address [address] [place] [address] Care Team Providers Name Role Phone Dagmar Kang MD Unavailable Raghu Bae MD Primary Care Provider [phone] Reason for Visit Reason Comments Follow Up Consultation (Routine: Next available opening) - Pending Review Specialty Diagnoses / Procedures Referred By Contact Refer red To Contact Cardiovascular Disease Diagnoses Persistent atrial fibrillation (H) Dagmar Kang MD [address] [facility], [address] [place] [address] Referral ID Status Reason Start Date Expiration Date Visits V isits Requested Authorized [id number] Pending 03/17/2022 03/17/2023 1 1 Review Encounter Details Date Type Department Care Team Description 04/22/2022 Office Visit [facility], Persistent atrial fibrillation (H) (Primary Dx); Heart Care Pearl Nicole Ng APRN S/P TAVR (transcatheter aort ic valve replacement); [address] [facility] DRY CLEANING SUPERVISOR Chronic diastolic congestive heart failu re (H); [address] [facility] Essential hypertension; [facility] [address] Coronary artery disease involving [place] coronary artery of [place] heart [place] [address] [id number] Social History Tobacco Use Types Packs/Day Years [...] is Keshia Andrew and her number is [phone]. She will call you afterwe hear back from Dr. Martinez. documented in this encounter Progress Notes Nicole Salazar APRN CNP - 04/22/2022 12:50 PM CDT Images from the original note were not included. Thank you, Dr. Kang, for asking the [facility] Heart Care team to see Ms. [...] pressure at goal. Coronary artery disease involving [place] coronary artery of [place] heart without angina pectoris andhas had stent in the past and on daily aspirin. [id number] score of 5 with one-point each for gender, age 65-74, CAD, hypertension and heart failure. HAS bled score of 3 with one-point each for advanced age, daily aspirin need and easy bruising. Marci Diaz has been advised to stay on chronic warfarin due to high risk for stroke with history of atrial fib. Marci Diaz has heart failure [place] class 3. I reviewed watchman protocol with [...] on exertion) ??? Coronary artery disease involving [place] coronary artery of [place] heart, angina presence unspecified ??? DEDE on [...] e Physical Examination Review of Systems w [facility] There were no vitals taken for [...] Procedure: COLONOSCOPY; Surgeon: Jeni Barrera MD; Location: [facility] OR; Service: Gastroenterology ??? COLONOSCOPY N/A 10/10/2019 Procedure: COLONOSCOPY; Surgeon: Falguni Mccain MD; Location: [facility] Main OR; Service: Gastroenterology ??? CV CORONARY ANGIOGRAM N/A 05/12/2017 Procedure: Coronary Angiogram; Surgeon: Ankush Martinez MD; Location: [facility] Physician Relations Specialist; Service: ??? CV TRANSCATHETER AORTIC VAVLE REPLACEMENT - FEMORAL APPROACH N/A 07/06/2017 Procedure: Transfemoral Transcatheter Aortic Valve Replacement; Surgeon: Ankush Martinez MD; Location: [facility] Physician Relations Specialist; Service: ??? LUMPECTOMY BREAST Left 2019 completed [...] results for input(s): A1C in the last 07726 hours. Recent Labs Lab Test 06/05/20 1053 [...] Diagnoses Diagnosis Persistent atrial fibrillation (H) - [facility] Atrial fibrillation S/P TAVR (transcatheter aortic valve rep lacement) Chronic diastolic congestive heart failu re (H) Chronic diastolic heart failure Essential hypertension Unspecified essential hypertension Coronary artery disease involving [place] coronary artery of [place] heart without angina pectoris documented in this encounter Care Teams Mushroom Cutter Relationship Specialty Start Date End Date Raghu Bae PCP - General Emergency Medicine 04/22/22 MD Dewayne [facility] [address] [place] [address] Dagmar Kang MD Assigned Heart and 03/21/22 04/24/22 [address] [facility], Vascular Provider [address] [place] [address] documented as of this encounter
--- OUTSIDE RECORDS SUMMARY | 2022-07-09 14:16 | XMS_ITS | Encounter Summary ---
:1950 Author Organization [place] Address [address] [place] [address] Care Team Providers Name Role Phone Raghu Bae MD Primary Care Provider [phone] Nicole Salazar APRN EMPLOYEE BENEFITS ADMINISTRATOR Unavailable [phone] Reason for Visit Reason Comments Lab Only Encounter Details Date Type Department Care Team Description 06/02/2022 Lab [facility] Heart Savi nary artery disease involving [place] coronary artery of [place] heart, unspecified whether angina present; Care Erick Hypercholesterolemia [address] [facility] [address] [place] [address] [facility] [phone] Social History Tobacco Use Types Packs/Day Years [...] CDT disease involving proced ure are in [place] coronary the results artery of [place] section. heart, unspecified whether angina present Hypercholesterolemia documented in this encounter Results (ABNORMAL) Lipid panel reflex to direct LDL Fasting (06/02/2022 11:35 AM CDT) [facility] gist Method Time Signature Cholesterol 152 <=199 06/02/2022 [facility] mg/dL 12:27 PM CDT Triglycerides 249 (H) <=149 06/02/2022 [facility] mg/dL 12:27 PM CDT Direct Measure 47 (L) >=50 06/02/2022 [facility] HDL mg/dL 12:27 PM CDT Comment: HDL Cholesterol Reference Range: 0-2 years: No reference ranges established for ok ents under 2 years old ??at [employer] for lipid analytes. 2-8 years: Greater than 45 mg/dL 18 years and older: Female: Greater than or equal to 50 mg/d L Male: ?? Greater than or equal to 40 mg/ dL LDL Cholesterol Calculated 55 <=129 mg/dL 06/02/20 12:27 PM CDT [facility] Patient Fasting > 8hrs? Yes 06/02/2022 12:27 PM CDT [facility] Specimen Anatomical Collection Method / Collection Time Recei gil Time (Source) Location / Volume Laterality Blood STRUCTURE OF RIGHT Venipuncture / 06/02/2022 11:35 08/2021 UPPER LIMB / Unknown AM CDT 12:02 PM CDT Unknown Dagmar Kang MD LAB - BLOOD ORDERABLES Performing Organization Address City/State/ZIP Code Phon e Number [facility] [place] [address] [place] [address] documented in this encounter Visit Diagnoses Diagnosis Coronary artery disease involving [place] coronary artery of [place] heart, unspecified whether angina present Hypercholesterolemia Pure hypercholesterolemia documented in this encounter Care Teams Physical Meteorologist Relationship Specialty Start Date End Date Raghu Bae PCP - General Emergency Medicine 04/22/22 MD Dewayne [facility] [address] [place] [address] Nicole Salazar Assigned Heart and 04/25/22 CODING CLERKS SUPERVISOR EMPLOYEE BENEFITS ADMINISTRATOR Vascular Provider [address] [facility] [address] [place] [address] documented as of this encounter
--- OUTSIDE RECORDS SUMMARY | 2022-07-09 14:16 | XMS_ITS | Encounter Summary ---
:1950 Author Organization [place] Address [address] [place] [address] Care Team Providers Name Role Phone Elyse [...] SUBSTANCE ZZ[facility] US GUIDE FOR PERICARDIOCENTESIS [address] [facility], ZZHC ECHO MYOCARD BX ZZC INJECTION, PERFLUTREN LIPID MICROSPHERES, PER ML [facility] STATISTIC IV PUSH SINGLE INITIAL SUBSTANCE CT ECHO MYOCARD BX CT INJECTION, PERFLUTREN LIPID MICROSPHERES, PER ML CT TTE W/DOPPLER, COMPLETE [address] CT IV PUSH SINGLE, INITIAL S UBSTANCE CT TTE W/DOPPLER, COMPLETE CT TTE W/DOPPLER, COMPLETE HC US GUIDE FOR PERICARDIOCENTESIS HC ECHO MYOCARD BX HC IV PUSH SINGLE, INITIAL SUBSTANCE HC STATISTIC IV PUSH SINGLE [place] [address] HC ECHO COMPLETE W DOPPLER W CONTRAST HC ECHO COMPLETE W DOPPLER W/O CONTRAST Referral ID Status Reason Start Date Expiration Date Visits Requ ested Visits Authorized [id number] Closed 03/17/2022 03/17/2023 1 1 onsultation (Routine: Next available opening) - Pending Review Specialty Diagnoses / Procedures Referred By Contact Refer red To Contact Cardiovascular Disease Diagnoses Persistent atrial fibrillation (H) Dagmar Kendrick MD [address] [facility], [address] [place] [address] Referral ID Status Reason Start Date Expiration Date Visits V isits Requested Authorized [id number] Pending 03/17/2022 03/17/2023 1 1 Review Reason for Visit Reason Comments Follow Up Encounter Details Date Type Department Care Team Description 03/17/2022 Office Visit [facility] Dagmar Kendrick, Coronary artery disease involving [place] coronary artery of [place] heart, unspecified whether angina present (Primary Dx); Heart Clinic S/P TAVR (transcatheter aortic valve rep lacement); [facility] [address] Persistent atrial fibrillati on (H); [address] [facility], Essential hype rtension; [place] [address] [place] [address] [phone] Social History Tobacco Use Types Packs/Day Years [...] not included. Thank you for asking the [facility] Heart Care team to see Ms. [...] Surgeon: Jeni Barrera MD; Location: [facility] Main OR; Service: Gastroenterology ??? COLONOSCOPY N/A 10/10/2019 Procedure: COLONOSCOPY; Surgeon: Falguni Mccain MD; Location: [facility] Main OR; Service: Gastroenterology ??? CV CORONARY ANGIOGRAM N/A 05/12/2017 Procedure: Coronary Angiogram; Surgeon: Ankush Martinez MD; Location: [facility] Cutter; Service: ??? CV TRANSCATHETER AORTIC VAVLE REPLACEMENT - FEMORAL APPROACH N/A 07/06/2017 Procedure: Transfemoral Transcatheter Aortic Valve Replacement; Surgeon: Ankush Martinez MD; Location: [facility] Lab; Service: ??? LUMPECTOMY BREAST Left [...] PM CDT Narrative 04/22/2022 4:09 PM CDT [id number]^AROLDO^DAGMAR^[place] [address] Name: IRVIN HOFFMAN : 1950 Study Date: 04/22/2022 02:53 PM Age: 72 yrs Gender: Female Patient Location: [facility] Reason For Study: S/P TAVR (transcathete r aortic valve replacement) Ordering Physician: DAGMAR KENDRICK Referring Physician: DAGMAR KENDRICK Performed By: AT BSA: 2.2 m2 Height: 62 in Weight: 272 lb HR: 64 BP: 136/68 mmHg Procedure Complete Echo Adult. Definity ([facility] #1199 4-011) given intravenously. Interpretation Summary The [...] Procedure Note Dagmar Kendrick MD - 04/22/2022 [id number]^AROLDO^[place] [address] Name: IRVIN HOFFMAN : 1950 Study Date: 04/22/2022 02:53 PM Age: 72 yrs Gender: Female Patient Location: [facility] Reason For Study: S/P TAVR (transcathete r aortic valve replacement) Ordering Physician: DAGMAR KENDRICK Referring Physician: DAGMAR KENDRICK Performed By: AT BSA: 2.2 m2 Height: 62 in Weight: 272 lb HR: 64 BP: 136/68 mmHg Procedure Complete Echo Adult. Definity ([facility] #1199 4-011) given intravenously. Interpretation Summary The [...] Visit Diagnoses Diagnosis Coronary artery disease involving [place] coronary artery of [place] heart, unspecified whether angina present - Primary S/P TAVR (transcatheter aortic valve rep lacement) Persistent atrial fibrillation (H) Atrial fibrillation Essential hypertension Unspecified essential hypertension Hypercholesterolemia Pure hypercholesterolemia S/P TAVR (transcatheter aortic valve rep lacement) documented in this encounter Care Teams Guest Relations Receptionist Relationship Specialty Start Date End Date Elyse Paredes MD PCP - General Family Practice 12/22/13 04/21/22 [address] [place] [address] documented as of this encounter
--- OUTSIDE RECORDS SUMMARY | 2022-07-09 14:16 | XMS_ITS | Encounter Summary ---
:1950 Author Organization [place] Address [address] [place] [address] Care Team Providers Name Role Phone Raghu Bae MD Primary Care Provider [phone] Nicole Salazar APRN ACCOUNT EXECUTIVE SALES REPRESENTATIVE Unavailable [phone] Reason for Visit Reason Onset Date Comments LAAC Scheduling 06/24/2022 Encounter Details Date Type Department Care Team Description 06/24/2022 Telephone [facility] Heart Natalia Vee R N LAAC Scheduling Clinic [address] [place] [address] Social History Tobacco Use [...] an appointment with her primary doctor in [place] on 07/09 and said that she would like to talk to him and then call us back to let us know. She understands that she would also need to have an SDM appointment with a computer technology teacher prior to her LAAC. She would like to hold her 09/03 date and will call to confirm this after her appointment. Patient had no further questions and verbalized understanding of process. Gave direct number for call back. -SC RY DERRICK OPERATOR documented in this encounter Plan of Treatment Not on filedocumented as of this encounter Visit Diagnoses Not on filedocumented in this encounter Care Teams Engineering And Operations Director Relationship Specialty Start Date End Date Raghu Bae PCP - General Emergency Medicine 04/22/22 MD Dewayne [facility] [address] [place] [address] Nicole Salazar, Assigned Heart and 04/25/22 CAR PICK UP DRIVER ACCOUNT EXECUTIVE SALES REPRESENTATIVE Vascular Provider [address] [facility] [address] [place] [address] documented as of this encounter
--- OUTSIDE RECORDS SUMMARY | 2022-07-09 14:16 | XMS_ITS | Encounter Summary ---
:1950 Author Organization [place] Address [address] [place] [address] Care Team Providers Name Role Phone Dagmar Kendrick MD Unavailable Raghu Bae MD Primary Care Provider [phone] Reason for Referral CV Testing (Routine) - Closed Specialty Diagnoses / Procedures Referred By Contact Refer red To Contact Diagnoses S/P TAVR (transcatheter aortic valve replacement) Dagmar Kendrick MD Procedures Echocardiogram Complete ZZ[facility] TTE W/DOPPLER, COMPLETE ZZ[facility] ECHO COMPLETE W DOPPLER W CONTRAST ZZ[facility] ECHO COMPLETE W DOPPLER W/O CONTRAST ZZ[facility] IV PUSH SINGLE, INITIAL SUBSTANCE [facility] US GUIDE FOR PERICARDIOCENTESIS [facility], [facility] ECHO MYOCARD BX ZZC INJECTION, PERFLUTREN LIPID MICROSPHERES, PER ML ZZ[facility] STATISTIC IV PUSH SINGLE INITIAL SUBSTANCE OH ECHO MYOCARD BX OH INJECTION, PERFLUTREN LIPID MICROSPHERES, PER ML OH TTE W/DOPPLER, COMPLETE [address] OH IV PUSH SINGLE, INITIAL S UBSTANCE OH TTE W/DOPPLER, COMPLETE OH TTE W/DOPPLER, COMPLETE HC US GUIDE FOR PERICARDIOCENTESIS HC ECHO MYOCARD BX HC IV PUSH SINGLE, INITIAL SUBSTANCE HC STATISTIC IV PUSH [place]ING[place] [address] HC ECHO COMPLETE W DOPPLER W CONTRAST HC ECHO COMPLETE W DOPPLER W/O CONTRAST Referral ID Status Reason Start Date Expiration Date Visits Requ ested Visits Authorized [id number] Closed 03/17/2022 03/17/2023 1 1 Reason for [...] ZZHC STATISTIC IV PUSH SINGLE INITIAL SUBSTANCE OH ECHO MYOCARD BX OH INJECTION, PERFLUTREN LIPID MICROSPHERES, PER ML OH TTE W/DOPPLER, COMPLETE [address] OH IV PUSH SINGLE, INITIAL S UBSTANCE OH TTE W/DOPPLER, COMPLETE OH TTE W/DOPPLER, COMPLETE HC US GUIDE FOR PERICARDIOCENTESIS HC ECHO MYOCARD BX HC IV PUSH SINGLE, INITIAL SUBSTANCE HC STATISTIC IV PUSH SINGLE INITIAL SUBSTANCE [facility] [place] [address] HC ECHO COMPLETE W DOPPLER W CONTRAST HC ECHO COMPLETE W DOPPLER W/O CONTRAST Referral ID Status Reason Start Date Expiration Date Visits Requ ested Visits Authorized [id number] Closed 03/17/2022 03/17/2023 1 1 Encounter Details Date Type Department Care Team Description 04/22/2022 Hospital Encounter [facility] Dagmar Kendrick, S/P TAVR [facility] (transcatheter Heart Care [address] [facility] aortic valve [address] [facility], [address] replacement) [place], [place] [address] [id number] Social History Tobacco Use Types Packs/Day Years [...] mouth artery disease involving every other day [place] coronary artery of [place] heart, unspecified whether angina present, Hypercholesterolemia BD [...] mg) by mouth artery disease involving daily [place] coronary artery of [place] heart, unspecified whether angina present, Hypercholesterolemia famotidine [...] PM CDT Narrative 04/22/2022 4:09 PM CDT [id number]^AROLDO^DAGMAR^[place] [address] Name: IRVIN HOFFMAN : 1950 Study Date: 04/22/2022 02:53 PM Age: 72 yrs Gender: Female Patient Location: [facility] Reason For Study: S/P TAVR (transcathete r aortic valve replacement) Ordering Physician: DAGMAR KENDRICK Referring Physician: DAGMAR KENDRICK Performed By: AT BSA: 2.2 m2 Height: 62 in Weight: 272 lb HR: 64 BP: 136/68 mmHg Procedure Complete Echo Adult. Definity ([facility] #1199 4-011) given intravenously. Interpretation Summary The [...] Procedure Note Dagmar Kendrick MD - 04/22/2022 [id number]^AROLDO^DAGMAR^[place] [address] Name: IRVIN HOFFMAN : 1950 Study Date: 04/22/2022 02:53 PM Age: 72 yrs Gender: Female Patient Location: [facility] Reason For Study: S/P TAVR (transcathete r aortic valve replacement) Ordering Physician: DAGMAR KENDRICK Referring Physician: DAGMAR KENDRICK Performed By: AT BSA: 2.2 m2 Height: 62 in Weight: 272 lb HR: 64 BP: 136/68 mmHg Procedure Complete Echo Adult. Definity ([facility] #1199 4-011) given intravenously. Interpretation Summary The [...] [id number] documented in this encounter Care Teams Dining Chair Seat Cushion Trimmer Relationship Specialty Start Date End Date Raghu Bae PCP - General Emergency Medicine 04/22/22 MD Dewayne [facility] [address] [place] [address] Dagmar Kendrick MD Assigned Heart and 03/21/22 04/24/[address] [facility] [address], Vascular Provider [address] [place] [address] documented as of this encounter
--- OUTSIDE RECORDS SUMMARY | 2022-07-09 14:16 | XMS_ITS | Encounter Summary ---
:1950 Author Organization [place] Address [address] [place] [address] Care Team Providers Name Role Phone Elyse [...] filedocumented in this encounter Care Teams Loan Teller Relationship Specialty Start Date End Date Elyse Paredes MD PCP - General Family Practice 12/22/13 04/21/22 [address] [place] [address] Dagmar Kang MD Assigned Heart and 03/21/22 04/24/22 [address] [facility], Vascular Provider [address] [place] [address] documented as of this encounter
--- OUTSIDE RECORDS SUMMARY | 2022-07-09 14:16 | XMS_ITS | Encounter Summary ---
:1950 Author Organization [place] Address [address] [place] [address] Care Team Providers Name Role Phone Dagmar Kang MD Unavailable Raghu Bae MD Primary Care Provider [phone] Encounter Details Date Type Department Care Team [...] on filedocumented in this encounter Care Teams Payroll Lead Relationship Specialty Start Date End Date Raghu Bae PCP - General Emergency Medicine 04/22/22 MD Dewayne [facility] [address] [place] [address] Dagmar Kang MD Assigned Heart and 03/21/22 04/24/22 [address] [facility], Vascular Provider [address] [place] [address] documented as of this encounter
--- OUTSIDE RECORDS SUMMARY | 2022-07-09 14:16 | XMS_ITS | Encounter Summary ---
:1950 Author Organization [place] Address [address] [place] [address] Care Team Providers Name Role Phone Raghu Bae MD Primary Care Provider Nicole Salazar APRN MACHINES TECHNICIAN Unavailable [phone] Encounter Details Date Type Department Care Team [...] on filedocumented in this encounter Care Teams Physician Non Invasive Cardiologist Relationship Specialty Start Date End Date Raghu Bae PCP - General Emergency Medicine 04/22/22 MD Dewayne [facility] [address] [place] [address] Nicole Salazar Assigned Heart and 04/25/22 HOME SUPPORT WORKER MACHINES TECHNICIAN Vascular Provider [address] [facility] [address] [place] [address] documented as of this encounter
--- OUTSIDE RECORDS SUMMARY | 2022-07-09 14:16 | XMS_ITS | Encounter Summary ---
:1950 Author Organization [place] Address [address] [place] [address] Care Team Providers Name Role Phone Elyse [...] on filedocumented in this encounter Care Teams Broadcast Designer Relationship Specialty Start Date End Date Elyse Paredes MD PCP - General Family Practice 12/22/13 04/21/22 [address] [place] [address] documented as of this encounter
--- OUTSIDE RECORDS SUMMARY | 2022-07-09 14:16 | XMS_ITS | Encounter Summary ---
:1950 Author Organization [place] Address [address] [place] [address] Care Team Providers Name Role Phone Dagmar Kang MD Unavailable Raghu Bae MD Primary Care Provider [phone] Reason for Referral CV Testing (Routine) - [...] ZZ[facility] US GUIDE FOR PERICARDIOCENTESIS [address] [facility], ZZHC ECHO MYOCARD BX ZZC INJECTION, PERFLUTREN LIPID MICROSPHERES, PER ML ZZ[facility] STATISTIC IV PUSH SINGLE INITIAL SUBSTANCE DE ECHO MYOCARD BX DE INJECTION, PERFLUTREN LIPID MICROSPHERES, PER ML DE TTE W/DOPPLER, COMPLETE [address] DE IV PUSH SINGLE, INITIAL S UBSTANCE DE TTE W/DOPPLER, COMPLETE DE TTE W/DOPPLER, COMPLETE HC US GUIDE FOR PERICARDIOCENTESIS HC ECHO MYOCARD BX HC IV PUSH SINGLE, INITIAL SUBSTANCE HC STATISTIC IV PUSH [place] [address] HC ECHO COMPLETE W DOPPLER W CONTRAST HC ECHO COMPLETE W DOPPLER W/O CONTRAST Referral ID Status Reason Start Date Expiration Date Visits V isits Requested Authorized [id number] Pending 04/23/2022 04/23/2023 1 1 Review Encounter Details Date Type Department Care Team Description 04/23/2022 Orders Only [facility] Heart PérezGloria casey [facility] onic diastolic Clinic [place] congestive heart failure [address] [facility] Dx[facility] [address] [place] [address] Social History Tobacco Use Types Packs/Day [...] failure documented in this encounter Care Teams Metal Sorter Relationship Specialty Start Date End Date Raghu Bae PCP - General Emergency Medicine 04/22/22 MD Dewayne [facility] [address] [place] [address] Dagmar Kang MD Assigned Heart and 03/21/22 04/24/[address] [facility], Vascular Provider [address] [place] [address] documented as of this encounter
--- OUTSIDE RECORDS SUMMARY | 2022-07-09 14:16 | XMS_ITS | Encounter Summary ---
:1950 Author Organization [place] Address [address] [place] [address] Care Team Providers Name Role Phone Elyse Paredes MD Primary Care Provider Dagmar Kang MD Unavailable Reason for Visit Reason Onset Date Comments Results 04/02/2022 2 week call abck Encounter Details Date Type Department Care Team Description 04/02/2022 Telephone [facility] Renetta Kang MD Results (2 week call [facility] [place] [facility] [address] [facility], [address] [place] [address] [phone] Social History Tobacco Use Types Packs/Day Years [...] from the original note were not included. [facility] [place] 04-03-22 @ 1016: Dagmar Kang MD [...] after holding Rosuvastatin - follow-up with AF TELEVISION PRESENTER and echo berta on 04-22-22 - any new orders? mg Telephone Encounter - Cherise Olvera - 04/02/2022 1:04 PM CDT [facility] Call Center Phone Message May a [...] of rosuvastatin. Please review and call patient. [facility][id number] [place], [place] - [facility] [address] AT [facility] [address] Action Taken: Other: routed to cardiology Travel Screening: Not Applicable documented in this encounter Plan of Treatment Not on filedocumented as of this encounter Results (ABNORMAL) Lipid panel reflex to direct LDL Fasting (06/02/2022 11:35 AM CDT) [facility] gist Method Time Signature Cholesterol 152 <=199 06/02/2022 [facility] mg/dL 12:27 PM CDT Triglycerides 249 (H) <=149 06/02/2022 [facility] mg/dL 12:27 PM CDT Direct Measure 47 (L) >=50 06/02/2022 [facility] HDL mg/dL 12:27 PM CDT Comment: HDL Cholesterol Reference Range: 0-2 years: No reference ranges established for ok ents under 2 years old ??at [facility] for lipid analytes. 2-8 years: Greater than 45 mg/dL 18 years and older: Female: Greater than or equal to 50 mg/d L Male: ?? Greater than or equal to 40 mg/ dL LDL Cholesterol Calculated 55 <=129 mg/dL 06/02/20 12:27 PM CDT [facility] Patient Fasting > 8hrs? Yes 06/02/2022 12:27 PM CDT [facility] Specimen Anatomical Collection Method / Collection Time Recei gil Time (Source) Location / Volume Laterality Blood STRUCTURE OF RIGHT Venipuncture / 06/02/2022 11:35 08/2021 UPPER LIMB / Unknown AM CDT 12:02 PM CDT Unknown Dagmar Kang MD LAB - BLOOD ORDERABLES Performing Organization Address City/State/ZIP Code Phon e Number [facility] [place] [address] documented in this encounter Visit Diagnoses Diagnosis Coronary artery disease involving bois forte coronary artery of bois [place]te heart, unspecified whether angina present - Primary Hypercholesterolemia Pure hypercholesterolemia documented in this encounter Care Teams Social Media Director Relationship Specialty Start Date End Date Reggie, Elyse Armas MD PCP - General Family Practice 12/22/13 04/21/22 [address] [facility] [place] [address] Dagmar Kang MD Assigned Heart and 03/21/22 04/24/22 [address] [facility], Vascular Provider [address] [place] [address] documented as of this encounter
--- OUTSIDE RECORDS SUMMARY | 2022-07-09 14:16 | XMS_ITS | Clinical Summary ---
:1950 Author Organization [place] Address [address] [place] [address] Care Team Providers Name Role Phone Raghu Bae MD Primary Care Provider Niocle Salazar APRN CIRCULATION MAN Unavailable Allergies Active Allergy Reactions Severity Noted Date [...] 0 07/25/2017 Active MINI 31 gauge x 3/16 Ndle PEN NEEDLE UF MINI 31 GAUGE [...] by Coronary artery disease mouth every involving stebbins coronary other day artery of stebbins heart, unspecified whether angina present, Hypercholesterolemia ezetimibe (ZETIA) 10 MG Take 1 tablet 90 tablet 1 04/03/2022 Active tabletIndications: (10 mg) by Coronary artery disease mouth daily involving stebbins coronary artery of stebbins heart, unspecified whether angina present, Hypercholesterolemia Active Problems Problem Noted Date Chronic kidney disease, stage 3 12/26/2020 Morbid obesity with BMI of 50.0-59.9, adult 07/29/2017 Persistent atrial fibrillation 07/23/2017 Overview: Postop TAVR Paroxysmal and then Persistent. Failed D CCV without antiarrhythmic. Convertedwith loading of amio [id number] score of 5 and on warfarin S/P TAVR (transcatheter aortic valve replacement) 11/2016 Hyperglycemia 07/06/2017 Calculus of kidney 06/07/2017 Urinary tract stones 06/07/2017 DEDE on CPAP 05/27/2017 Type 2 diabetes mellitus without complication, with lo ng-term current use 05/27/2017 of insulin Essential hypertension 05/27/2017 HLD (hyperlipidemia) 08/14/2015 CASTRO (dyspnea on exertion) Coronary artery disease involving stebbins coronary maurice ry of stebbins heart, angina presence unspecified Overview: Replacing diagnoses that were inactivate d after the 05/02/2021 regulatory import. Chronic diastolic congestive heart failure Encounters Date Type Specialty Care Team Description 06/24/2022 Telephone Cardiology Natalia Vee LAAC Schedul ing RN 06/02/2022 Lab Cardiology Coronary artery disease involving stebbins coronary artery of stebbins heart, unspecified whether angina present; Hypercholestero lemia [...] S/P TAVR (bentley scatheter aortic valve replacement); CIRCULATION MAN Chronic diastol ic congestive heart failure (H); Essential hyper tension; Coronary artery disease involving stebbins coronary artery of stebbins heart without angina pectoris 04/22/2022 Travel 04/20/2022 Travel from Last 3 Months Immunizations Name Administration [...] 36.7 ??C (98.1 ??F) 07/05/2019 1:08 PM ACCOUNT EXECUTIVE Respiratory Rate 16 04/22/2022 12:47 PM CDT [...] this topic Medical Devices Implanted Type Area Computer Training Specialist Device Shelf Model / Identifier Expiration Serial / Date Lot Stent Synergy Mr [id number] Stent Drug N/A: [place] 03/25/2018 [id number] / Implanted: Qty: 1 on 05/12/2017 [employer] / ([place]) [id number] Valve [id number] [id number] Valve N/A: BUSTOS 02/25/2019 [id number] / Implanted: Qty: 1 on 07/06/2017 [employer] / [id number] Procedures Procedure Name Priority Date/Time Associated Diagnosis Comme nts LIPID REFLEX TO Routine 06/02/2022 11:35 AM Coronary artery Re sults for this DIRECT LDL PANEL CDT disease involving proced ure are in stebbins coronary the results artery of stebbins section. heart, unspecified whether angina present Hypercholesterolemia ECHO COMPLETE WITH Routine 04/22/2022 3:50 PM S/P TAVR Res ults for this CONTRAST CDT (transcatheter procedure are in aortic valve the results replacement) section. from Last 3 Months Results (ABNORMAL) Lipid panel reflex to direct LDL Fasting (06/02/2022 11:35 AM CDT) [facility] gist Method Time Signature Cholesterol 152 <=199 06/02/2022 [facility] mg/dL 12:27 PM CDT Triglycerides 249 (H) <=149 06/02/2022 [facility] mg/dL 12:27 PM CDT Direct Measure 47 (L) >=50 06/02/2022 [facility] HDL mg/dL 12:27 PM CDT Comment: HDL Cholesterol Reference Range: 0-2 years: No reference ranges established for ok ents under 2 years old ??at [facility] for lipid analytes. 2-8 years: Greater than 45 mg/dL 18 years and older: Female: Greater than or equal to 50 mg/d L Male: ?? Greater than or equal to 40 mg/ dL LDL Cholesterol Calculated 55 <=129 mg/dL 06/02/20 12:27 PM CDT [facility] Patient Fasting > 8hrs? Yes 06/02/2022 12:27 PM CDT [facility] Specimen Anatomical Collection Method / Collection Time Recei gil Time (Source) Location / Volume Laterality Blood STRUCTURE OF RIGHT Venipuncture / 06/02/2022 11:35 08/2021 UPPER LIMB / Unknown AM CDT 12:02 PM CDT Unknown Dagmar Kendrick MD LAB - BLOOD ORDERABLES Performing Organization Address City/State/ZIP Code Phon e Number [facility] [place] [address] [address] [facility] ECHO COMPLETE WITH CONTRAST (04/22/2022 3:50 PM CDT) athologist Signature LVEF 60-65% CARDIOLOGY RESULTS Anatomical Region Laterality Modality Ultrasound, Ultrasou nd Specimen (Source) Anatomical Collection Method Collection Time Re ceived Time Location / / Volume Laterality 04/22/2022 2:53 PM CDT Narrative 04/22/2022 4:09 PM CDT [id number]^AROLDO^DAGMAR^[place] [address] Name: IRVIN HOFFMAN : 1950 Study Date: 04/22/2022 02:53 PM Age: 72 yrs Gender: Female Patient Location: [facility] Reason For Study: S/P TAVR (transcathete r aortic valve replacement) Ordering Physician: DAGMAR KENDRICK Referring Physician: DAGMAR KENDRICK Performed By: AT BSA: 2.2 m2 Height: 62 in Weight: 272 lb HR: 64 BP: 136/68 mmHg Procedure Complete Echo Adult. Definity ([facility] #[id number]) given intravenously. Interpretation Summary [...] Procedure Note Dagmar Kendrick MD - 04/22/2022 [id number]^AROLDO^DAGMAR^[place] [address] Name: IRVIN HOFFMAN : 1950 Study Date: 04/22/2022 02:53 PM Age: 72 yrs Gender: Female Patient Location: [facility] Reason For Study: S/P TAVR (transcathete r aortic valve replacement) Ordering Physician: DAGMAR KENDRICK Referring Physician: DAGMAR KENDRICK Performed By: AT BSA: 2.2 m2 Height: 62 in Weight: 272 lb HR: 64 BP: 136/68 mmHg Procedure Complete Echo Adult. Definity ([facility] #[id number]) given intravenously. Interpretation Summary [...] / Subscriber ID Effective Phone Address T Merged with [facility] [id number] 2022-Prese [phone] [address] [facility] [address] [place] [phone] Care Teams Project Lead Relationship Specialty Start Date End Date Raghu Bae PCP - General Emergency Medicine 04/22/[address] [facility] [address] [place] [address] Nicole Salazar, Assigned Heart and 04/25/22 DATA REVIEW SPECIALIST CIRCULATION MAN Vascular Provider [address] [facility] [address] [place] [address]
--- OUTSIDE RECORDS SUMMARY | 2022-07-09 14:17 | XMS_ITS | Encounter Summary ---
:1950 Author Organization [place] Address [address] [place] [address] Care Team Providers Name Role Phone Elyse Paredes MD Primary Care Provider Encounter Details Date Type Department Care Team Description 01/02/2021 Hospital Encounter [facility] Dagmar Kang MD [address], [address] [place] [address] [place] [phone] (Wo rk) Social History Tobacco Use Types [...] on filedocumented in this encounter Care Teams Linotype Mechanic Relationship Specialty Start Date End Date Elyse Paredes MD PCP - General Family Practice 12/22/13 04/21/22 [address] [place] [address] documented as of this encounter
--- OUTSIDE RECORDS SUMMARY | 2022-07-09 14:17 | XMS_ITS | Encounter Summary ---
:1950 Author Organization [place] Address [address] [place] [address] Care Team Providers Name Role Phone Elyse Paredes MD Primary Care Provider Encounter Details Date Type Department Care Team Description 12/27/2020 Records - [facility] CLEMENTINA HE CONVERSION Provider, Histor ical [...] on filedocumented in this encounter Care Teams Knitting Inspector Relationship Specialty Start Date End Date Elyse Paredes MD PCP - General Family Practice 12/22/13 04/21/22 [address] [place] [address] documented as of this encounter
--- OUTSIDE RECORDS SUMMARY | 2022-07-09 14:17 | XMS_ITS | Encounter Summary ---
:1950 Author Organization [place] Address [address] [place] [address] Care Team Providers Name Role Phone Elyse Paredes MD Primary Care Provider Encounter Details Date Type Department Care Team Description 12/31/2020 [facility] CLEMENTINA VARGAS CONVERSION Provider, Histor ical Social [...] Medical Record f or documentation Historical Provider [facility] ORDERABLES documented in this encounter Visit Diagnoses Not on filedocumented in this encounter Care Teams Capital Project Engineer Relationship Specialty Start Date End Date Reggie, Elyse Armas MD PCP - General Family Practice 12/22/13 04/21/22 [address] [place] [address] documented as of this encounter
--- OUTSIDE RECORDS SUMMARY | 2022-07-09 14:17 | XMS_ITS | Encounter Summary ---
:1950 Author Organization [place] Address [address] [place] [address] Care Team Providers Name Role Phone Dagmar [...] on filedocumented in this encounter Care Teams Biscuitware Brusher Relationship Specialty Start Date End Date Elyse Paredes MD PCP - General Family Practice 12/22/13 04/21/22 1540 [place] [address] Dagmar Kang MD Assigned Heart and 02/14/21 02/27/22 1600 [facility], Vascular Provider [address] [place] [address] documented as of this encounter
--- OUTSIDE RECORDS SUMMARY | 2022-07-09 14:17 | XMS_ITS | Encounter Summary ---
:1950 Author Organization [place] Address [address] [place] [address] Care Team Providers Name Role Phone Elyse Paredes MD Primary Care Provider Encounter Details Date Type Department Care Team Description 01/02/2021 Hospital Encounter [facility] Dagmar Kang MD [address], [address] [place] [address] [place] [phone] (Wo rk) Social History Tobacco Use Types [...] on filedocumented in this encounter Care Teams Roguer Relationship Specialty Start Date End Date Elyse Paredes MD PCP - General Family Practice 12/22/13 04/21/22 [address] [place] [address] documented as of this encounter
--- OUTSIDE RECORDS SUMMARY | 2022-07-09 14:17 | XMS_ITS | Encounter Summary ---
:1950 Author Organization [place] Address [address] [place] [address]. [place] [address] Care Team Providers Name Role Phone Elyse Paredes MD Primary Care Provider Reason for Visit Reason Comments Medication Refill Encounter Details Date Type Department Care Team Description 11/15/2020 Communication - [facility] Dagmar Kang, Medica tion Refill [facility] [address] [facility] [place] [place] [address] [place] [address] [phone] Social History Tobacco Use Types Packs/Day Years Used Date Smoking Tobacco: Never Assessed Sex Assigned at Date Recorded Not on file documented as of this encounter Plan of Treatment Not on filedocumented as of this encounter Visit Diagnoses Diagnosis S/P TAVR (transcatheter aortic valve rep lacement) documented in this encounter Care Teams Spray Gun Repairer Helper Relationship Specialty Start Date End Date Elyse Paredes MD PCP - General Family Practice 12/22/13 04/21/22 1540 [place] [address] documented as of this encounter
--- OUTSIDE RECORDS SUMMARY | 2022-07-09 14:17 | XMS_ITS | Encounter Summary ---
:1950 Author Organization [place] Address [address] [place] [address] Care Team Providers Name Role Phone Elyse Paredes MD Primary Care Provider Encounter Details Date Type Department Care Team Description 12/27/2020 Records - [facility] Z HE CONVERSION Provider, Histor ical [...] filedocumented in this encounter Care Teams Rug Frame Mounter Relationship Specialty Start Date End Date Elyse Paredes MD PCP - General Family Practice 12/22/13 04/21/22 1540 [place], [place] [id number] documented as of this encounter
--- OUTSIDE RECORDS SUMMARY | 2022-07-09 14:17 | XMS_ITS | Encounter Summary ---
:1950 Author Organization [place] Address [address] [place] [address] Care Team Providers Name Role Phone Elyse Paredes MD Primary Care Provider Encounter Details Date Type Department Care Team Description [facility] CONVERSION Provider, Histor ical [...] on filedocumented in this encounter Care Teams Sfdc Architect Relationship Specialty Start Date End Date Elyse Paredes MD PCP - General Family Practice 12/22/13 04/21/22 1540 [place] [address] documented as of this encounter
--- OUTSIDE RECORDS SUMMARY | 2022-07-09 14:17 | XMS_ITS | Encounter Summary ---
:1950 Author Organization [place] Address [address] [place] [address] Care Team Providers Name Role Phone Elyse Paredes MD Primary Care Provider Encounter Details Date Type Department Care Team Description 12/31/2020 Records - [facility] Naina HE CONVERSION Provider, Histor [...] on filedocumented in this encounter Care Teams Electro Mechanical Engineer Relationship Specialty Start Date End Date Elyse Paredes MD PCP - General Family Practice 12/22/13 04/21/22 1540 [place] [address] documented as of this encounter
--- OUTSIDE RECORDS SUMMARY | 2022-07-09 14:17 | XMS_ITS | Encounter Summary ---
:1950 Author Organization [place] Address [address] [place] [address] Care Team Providers Name Role Phone Dagmar Kang MD Unavailable Elyse Paredes MD Primary Care Provider Dagmar Kang MD Unavailable Raghu Bae MD Primary Care Provider [phone] Nicole Salazar APRN CELLARS SUPERVISOR Unavailable [phone] Encounter Details Date Type Department Care Team Description 01/02/2021 Records - [facility] HE CONVERSION Scan, Non-Provider Social History Tobacco Use Types Packs/Day Years Used Date Smoking Tobacco: Never Assessed Sex Assigned at Date Recorded Not on file documented as of this encounter Plan of Treatment Not on filedocumented as of this encounter Visit Diagnoses Not on filedocumented in this encounter Care Teams Special Collections Librarian Relationship Specialty Start Date End Date Elyse Paredes MD PCP - General Family Practice 12/22/13 04/21/22 1540 [place] [address] Raghu Bae PCP - General Emergency Medicine 04/22/22 MD [place] [facility] [address] [place] [address] Dagmar Kang MD Assigned Heart and 02/14/21 02/27/[address], Vascular Provider [address] [place] [address] Dagmar Kang MD Assigned Heart and 03/21/22 04/24/22 [address] [facility] Vascular Provider [address] [place], [place] [phone] Nicole Salazar, Assigned Heart and 04/25/22 TWILL CUTTER CELLARS SUPERVISOR Vascular Provider [address] [facility] [address] [place], [place] [id number] documented as of this encounter
--- OUTSIDE RECORDS SUMMARY | 2022-07-09 14:17 | XMS_ITS | Encounter Summary ---
:1950 Author Organization [place] Address [address] [place] [address] Care Team Providers Name Role Phone Elyse Paredes MD Primary Care Provider Reason for Visit Reason Comments Follow Up Encounter Details Date Type Department Care Team Description 12/26/2020 Office Visit - [facility] Dagmar Kang, Coronar y artery disease involving [place]scar[place] coronary artery of [place] heart, angina presence unspecified; [facility] CASTRO (dyspnea on exertion); D Han[place] [address] S/P TAVR (transcatheter aort ic valve replacement); [facility], Stage 3a chron ic kidney disease; [place] [address] Paroxysmal atrial fibrillation (H); [place], [place] Mixed hyperli pidemia [id number] [phone] Social History Tobacco Use Types Packs/Day Years [...] Body Mass Index 48.43 06/05/2020 10:22 AM GAS MAIN AND LINE FITTER documented in this encounter Progress Notes Dagmar Kang MD - 12/26/2020 10:10 AM CDT Images from the original note were not included. Progress Notes by Dagmar Kang MD at 12/26/2020 10:10 AM Author: Dagmar Kang MD Service: -- Author Type: Physician Filed: 12/26/2020 2:09 PM Encounter Date: 12/26/2020 Status: Signed Last Waxer: Dagmar Kang MD (Physician) Thank you, Dr. Paredes, for asking the [facility] team to see Ms. Marci [facility] on coronary artery disease, hypercholesterolemia. Assessment/Recommendations [...] Procedure: COLONOSCOPY; Surgeon: Jeni Barrera MD; Location: [facility] OR; Service: Gastroenterology ? COLONOSCOPY N/A 10/10/2019 Procedure: COLONOSCOPY; Surgeon: Falguni Mccain MD; Location: [facility] OR; Service: Gastroenterology ? CV CORONARY ANGIOGRAM N/A 05/12/2017 Procedure: Coronary Angiogram; Surgeon: Ankush Martinez MD; Location: [facility] Credit Operations Processor; Service: ? CV TRANSFEMORAL TRANSCATHETER VALVE REPLACEMENT N/A 07/06/2017 Procedure: Transfemoral Transcatheter Aortic Valve Replacement; Surgeon: Ankush Martinez MD; Location: [facility] Credit Operations Processor; Service: ? TOTAL KNEE ARTHROPLASTY Bilateral Family [...] file Gets together: Not on file Attends orthodox service: Not on file Active member of [...] Visit Diagnoses Diagnosis Coronary artery disease involving [place]scar[place] coronary artery of [place] heart, angina presence unspecified CASTRO (dyspnea on exertion) Other dyspnea and respiratory abnormalit y S/P TAVR (transcatheter aortic valve rep lacement) Stage 3a chronic kidney disease (H) Paroxysmal atrial fibrillation (H) Atrial fibrillation Mixed hyperlipidemia documented in this encounter Care Teams Pocket Assembler Relationship Specialty Start Date End Date Elyse Paredes MD PCP - General Family Practice 12/22/13 04/21/22 [address] [place] [address] documented as of this encounter
--- OUTSIDE RECORDS SUMMARY | 2022-07-09 14:17 | XMS_ITS | Encounter Summary ---
:1950 Author Organization [place] Address [address] [place] [address] Care Team Providers Name Role Phone Elyse Paredes MD Primary Care Provider Encounter Details Date Type Department Care Team Description 01/02/2021 Hospital Encounter [facility] Dagmar Kang MD [address], [address] [place] [address] [place] [phone] (Wo rk) Social History Tobacco Use Types [...] filedocumented in this encounter Care Teams Manager Net Relationship Specialty Start Date End Date Elyse Paredes MD PCP - General Family Practice 12/22/13 04/21/22 [address] [place] [address] documented as of this encounter
--- OUTSIDE RECORDS SUMMARY | 2022-07-09 14:17 | XMS_ITS | Encounter Summary ---
:1950 Author Organization [place] Address [address] [place] [address]. [place] [address] Care Team Providers Name Role Phone Elyse [...] filedocumented in this encounter Care Teams Director [employer] Relationship Specialty Start Date End Date Elyse Paredes MD PCP - General Family Practice 12/22/13 04/21/22 15[address] [place] [address] documented as of this encounter
--- OUTSIDE RECORDS SUMMARY | 2022-07-09 14:17 | XMS_ITS | Encounter Summary ---
:1950 Author Organization [place] Address [address] [place] [address] Care Team Providers Name Role Phone Elyse [...] on filedocumented in this encounter Care Teams Astrobiologist Relationship Specialty Start Date End Date Elyse Paredes MD PCP - General Family Practice 12/22/13 04/21/22 1540 [place] [address] documented as of this encounter
--- OUTSIDE RECORDS SUMMARY | 2022-07-09 14:17 | XMS_ITS | Encounter Summary ---
:1950 Author Organization [place] Address [address] [place] [address] Care Team Providers Name Role Phone Elyse Paredes MD Primary Care Provider Encounter Details Date Type Department Care Team Description 01/02/2021 Hospital Encounter M [facility] Dagmar Kang, Cor onary artery [facility] Imaging disease involving [address] [facility] tribal coronary [place], [place] [address], [address] artery of tribal [address] [place], [place] heart, angina [phone] presence unspecified Social History Tobacco Use Types [...] LEXISCAN CDT disease involving procedure are in tribal coronary the results artery of tribal section. heart, angina presence unspecified documented in this encounter Results NM Lexiscan stress test (01/02/2021 4:15 PM CDT) Component Value Ref Test Analysis Performed At [facility] Range Method Time Signature Pharmacologic Lexiscan 01/02/2021 [...] Visit Diagnoses Diagnosis Coronary artery disease involving tribal coronary artery of tribal heart, angina presence unspecified documented in this encounter Care Teams Landing Support Specialist Relationship Specialty Start Date End Date Elyse Paredes MD PCP - General Family Practice 12/22/13 04/21/22 1540 [place] [address] documented as of this encounter
--- OUTSIDE RECORDS SUMMARY | 2022-07-09 14:17 | XMS_ITS | Encounter Summary ---
:1950 Author Organization [place] Address [address] [place] [address] Care Team Providers Name Role Phone Dagmar Kang MD Unavailable Elyse Paredes MD Primary Care Provider Reason for Visit Reason Onset Date Comments Medication Question 01/12/2022 warfarin Encounter Details Date Type Department Care Team Description 01/12/2022 Telephone [facility] Heart Renetta Kang MD Medication Question Clinic [facility] [address] [facility] (warfarin) [address] [facility] [address] [place], [place] [phone] Social History Tobacco Use Types Packs/Day [...] if she needs to be on it radio frequency technician and if there is anything else that [...] Reina Sarah - 01/12/2022 2:36 PM CDT [facility] Call Center Phone Message May a [...] on filedocumented in this encounter Care Teams Cigar Packer Relationship Specialty Start Date End Date Elyse Paredes MD PCP - General Family Practice 12/22/13 04/21/22 1540 [place] [address] Dagmar Kang MD Assigned Heart and 02/14/21 02/27/22 [address] [facility], Vascular Provider [address] [place] [address] documented as of this encounter
--- OUTSIDE RECORDS SUMMARY | 2022-07-09 14:17 | XMS_ITS | Encounter Summary ---
:1950 Author Organization [place] Address [address] [place] [address] Care Team Providers Name Role Phone Elyse Paredes MD Primary Care Provider Dagmar Kang MD Unavailable Raghu Bae MD Primary Care Provider [phone] Nicole Salazar APRN DRESSED POULTRY GRADER Unavailable [phone] Encounter Details Date Type Department Care Team Description 03/16/2022 Orders Only [facility] Clinic Unknown, P rubina Ruth [address] [facility] [address] [place] [address] Social History Tobacco Use [...] on filedocumented in this encounter Care Teams Internal Audit Director Relationship Specialty Start Date End Date Elyse Paredes MD PCP - General Family Practice 12/22/13 04/21/22 1540 [place] [address] Raghu Bae PCP - General Emergency Medicine 04/22/22 MD [place] [facility] [address] [place] [address] Dagmar Kang MD Assigned Heart and 03/21/22 04/24/22 [address] [facility], Vascular Provider [address] [place] [address] Nicole Salazar, Assigned Heart and 04/25/22 SPECIALIST FIELD ENGINEER DRESSED POULTRY GRADER Vascular Provider [address] [facility] [address] [place] [address] documented as of this encounter
--- OUTSIDE RECORDS SUMMARY | 2022-07-09 14:17 | XMS_ITS | Encounter Summary ---
:1950 Author Organization [place] Address [address] [place] [address]. [place] [address] Care Team Providers Name Role Phone Elyse Paredes MD Primary Care Provider Encounter Details Date Type Department Care Team Description [facility] Provider, Histor ical Social [...] on filedocumented in this encounter Care Teams Principal Cyber Engineer Relationship Specialty Start Date End Date Elyse Paredes MD PCP - General Family Practice 12/22/13 04/21/22 15[address] [place] [address] documented as of this encounter
--- OUTSIDE RECORDS SUMMARY | 2022-07-09 14:17 | XMS_ITS | Encounter Summary ---
:1950 Author Organization [place] Address [address] [place] [address]. [place] [address] Care Team Providers Name Role Phone Elyse [...] 12:00 AM Resu lts for this ORDER EQUIP MAINT ENG procedure are i n the results section. documented in this encounter Results Mammo Misc Order (09/13/2000 12:00 AM EQUIP MAINT ENG) Anatomical Region Laterality Modality Other Specimen (Source) Anatomical Location Collection Method / Collectio n Time Received Time / Laterality Volume Narrative 09/13/2000 12:00 AM EQUIP MAINT ENG See Historical Hospital Medical Record f or documentation Procedure Note Provider, Historical - 12/24/2020Formatt ing of this note might be different from the original. See Historical Hospital Medical Record f or documentation Historical Provider IMG MAMMOGRAPHY ORDERABLES documented in this encounter Visit Diagnoses Not on filedocumented in this encounter Care Teams Land Resource Specialist Relationship Specialty Start Date End Date Elyse Paredes MD PCP - General Family Practice 12/22/13 04/21/22 1540 [place], [place] [id number] documented as of this encounter
--- OUTSIDE RECORDS SUMMARY | 2022-07-09 14:17 | XMS_ITS | Encounter Summary ---
:1950 Author Organization [place] Address [address] [place] [address] Care Team Providers Name Role Phone Elyse Paredes MD Primary Care Provider Encounter Details Date Type Department Care Team Description 12/31[facility] CON[facility] Provider, Histor ical Social [...] on filedocumented in this encounter Care Teams Dope Weigh Operator Relationship Specialty Start Date End Date Elyse Paredes MD PCP - General Family Practice 12/22/13 04/21/22 15[address] [place] [address] documented as of this encounter
--- OUTSIDE RECORDS SUMMARY | 2022-07-09 14:17 | XMS_ITS | Encounter Summary ---
:1950 Author Organization [place] Address [address] [place] [address] Care Team Providers Name Role Phone Elyse Paredes MD Primary Care Provider Reason for Visit Reason Comments Pain Encounter Details Date Type Department Care Team Description 06/05/2020 Communication - [facility] Bryce Paez [facility] Heart Clinic [facility] devora Hickey RN [address] [facility] [address] [place] [phone] Social History Tobacco Use Types Packs/Day Years [...] confirmed hx of TAVR, CAD but no PA - patient does not have prn Rx for SL Nitrostat. Instructed patient to call 911 or be taken to nearest ED for urgent evaluation - patient verbalized understanding. mg MANUFACTURING SPECIALIST Telephone Encounter - Edelmira Paez RN - 06/05/2020 8:23 AM CST ----- Message from Tiffany Rose sent at 06/05/2020 8:18 AM LEAN MANUFACTURING SPECIALIST ----- General phone call: PATIENT HAVING A SHARP STABBING PAIN IN LEFT CHEST RADIATING DOWN ARM, STARTED LAST NIGHT, DIDN'T SLEEP, ALSO LABORED BREATHING, WITH ACTIVITY, PLEASE CALL Caller: PATIENT Primary shoulder boner: DR KENDRICK Detailed reason for call: SEE ABOVE New or active symptoms? YES, SEE ABOVE Best phone number: [phone] Best time to contact: ANY TIME Ok to leave a detailed message? YES Device? NO Additional Info: MANUFACTURING SPECIALIST documented in this encounter Plan of Treatment Not on filedocumented as of this encounter Visit Diagnoses Not on filedocumented in this encounter Care Teams Marketing Information Manager Relationship Specialty Start Date End Date Elyse Paredes MD PCP - General Family Practice 12/22/13 04/21/22 [address] [place] [address] documented as of this encounter
--- OUTSIDE RECORDS SUMMARY | 2022-07-09 14:17 | XMS_ITS | Encounter Summary ---
:1950 Author Organization [place] Address [address] [place] [address] Care Team Providers Name Role Phone Elyse Paredes MD Primary Care Provider Encounter Details Date Type Department Care Team Description 12/27/2020 Records - [facility] CLEMENTINA HE CONVERSION Provider, Histor ical [...] on filedocumented in this encounter Care Teams Black Mill Operator Relationship Specialty Start Date End Date Elyse Paredes MD PCP - General Family Practice 12/22/13 04/21/22 [address] [place] [address] documented as of this encounter
--- OUTSIDE RECORDS SUMMARY | 2022-07-09 14:17 | XMS_ITS | Encounter Summary ---
:1950 Author Organization [place] Address [address] [place] [address] Care Team Providers Name Role Phone Elyse Paredes MD Primary Care Provider Encounter Details Date Type Department Care Team Description 12/23/2020 Records - [facility] [address] [place] [address] Social History Tobacco Use Types [...] on filedocumented in this encounter Care Teams Lathe Set Up Operator Relationship Specialty Start Date End Date Elyse Paredes MD PCP - General Family Practice 12/22/13 04/21/22 15[address] [place], [place] [id number] documented as of this encounter
--- OUTSIDE RECORDS SUMMARY | 2022-07-09 14:18 | XMS_ITS | Encounter Summary ---
:1950 Author Organization [place] Address [address] [place] [address] Care Team Providers Name Role Phone Elyse Paredes MD Primary Care Provider Encounter Details Date Type Department Care Team Description 04/01/2020 Hospital Encounter M [facility] Dagmar Kang, Cor onary artery disease involving jamul coronary artery of jamul heart, angina presence unspecified; [facility] S/P TAVR (transcatheter aortic valve rep lacement) Heart Care [address] [place] [address] [address] [facility], [address] [place] [phone] Social History Tobacco Use Types Packs/Day Years [...] CDT disease involving procedure are in the jamul coronary results sect ion. artery of jamul heart, angina presence unspeci fied S/P TAVR (transcatheter aortic valve replacement) documented in this encounter Results (ABNORMAL) Echocardiogram Complete (04/01/2020 3:45 PM CDT) [facility] gist Method Time Signature LV volume [...] Visit Diagnoses Diagnosis Coronary artery disease involving jamul coronary artery of jamul heart, angina presence unspecified S/P TAVR (transcatheter aortic valve rep lacement) documented in this encounter Care Teams Application Developer Relationship Specialty Start Date End Date Elyse Paredes MD PCP - General Family Practice 12/22/13 04/21/22 [address] [place] [place], [place] [id number] documented as of this encounter
--- OUTSIDE RECORDS SUMMARY | 2022-07-09 14:18 | XMS_ITS | Encounter Summary ---
:1950 Author Organization [place] Address [address] [place] [address] Care Team Providers Name Role Phone Elyse Paredes MD Primary Care Provider Encounter Details Date Type Department Care Team Description 10/10/2019 [facility] - [facility] [address] [place]OLOG[place] [address] [facility] [address] [place], [place] [phone] (Wo rk) Social History Tobacco Use Types [...] on filedocumented in this encounter Care Teams Gravity Flow Irrigator Relationship Specialty Start Date End Date Elyse Paredse MD PCP - General Family Practice 12/22/13 04/21/22 1540 [place], [place] [phone] documented as of this encounter
--- OUTSIDE RECORDS SUMMARY | 2022-07-09 14:18 | XMS_ITS | Encounter Summary ---
:1950 Author Organization [place] Address [address] [place] [address] Care Team Providers Name Role Phone Elyse Paredes MD Primary Care Provider Encounter Details Date Type Department Care Team Description [facility]/27[facility] [address] [place] [phone] [phone] Social History Tobacco Use Types Packs/Day Years Used Date Smoking Tobacco: Never Assessed Sex Assigned at Date Recorded Not on file documented as of this encounter OR Notes Anesthesia Postprocedure Evaluation - Smita Guerrero - 06/27/2019 1:45 PM ENDBAND CUTTER HAND Patient: Marci Diaz COLONOSCOPY Anesthesia type: MAC [...] - No serious adverse event Additional Notes: AND CUTTER HAND Anesthesia Preprocedure Evaluation - Smita Guerrero - 06/27/2019 9:20 AM ENDBAND CUTTER HAND Anesthesia Evaluation Patient summary reviewed No history [...] discussed with: patient Post-op plan: routine recovery AND CUTTER HAND documented in this encounter Miscellaneous Notes Anesthesia Care Transfer Note - Mariely Lee - 06/27/2019 10:18 AM ENDBAND CUTTER HAND Last vitals: Vitals: 06/27/19 1017 BP: 106/54 [...] experience pain >= 7 out of 10 AND CUTTER HAND documented in this encounter Plan of Treatment Not on filedocumented as of this encounter Visit Diagnoses Not on filedocumented in this encounter Care Teams Rock Splitter Relationship Specialty Start Date End Date Elyse Paredes MD PCP - General Family Practice 12/22/13 04/21/22 1540 [place] [address] documented as of this encounter
--- OUTSIDE RECORDS SUMMARY | 2022-07-09 14:18 | XMS_ITS | Encounter Summary ---
:1950 Author Organization [facility] Address [address] [place] [address] Care Team Providers Name Role Phone Elyse Paredes MD Primary Care Provider Encounter Details Date Type Department Care Team Description 06/27/2019 Surgery - [facility] Jeni Barrera MD [facility] GASTROENTEROLOGY [address] [phone] [phone] Social History Tobacco Use Types Packs/Day Years [...] lb 1.6 oz) 06/27/2019 9:08 AM BUSINESS CONTROL SPECIALIST Height 160 cm (5' 3) 06/27/2019 9:08 AM BUSINESS CONTROL SPECIALIST Body Mass Index 48.73 06/27/2019 9:08 AM BUSINESS CONTROL SPECIALIST documented in this encounter Plan of Treatment Not on filedocumented as of this encounter Visit Diagnoses Not on filedocumented in this encounter Care Teams Battery Assembler Dry Cell Relationship Specialty Start Date End Date Elyse Paredes MD PCP - General Family Practice 12/22/13 04/21/22 15[address] [place] [address] documented as of this encounter
--- OUTSIDE RECORDS SUMMARY | 2022-07-09 14:18 | XMS_ITS | Encounter Summary ---
:1950 Author Organization [facility] Address [address] [place] [address] Care Team Providers Name Role Phone Elyse Paredes MD Primary Care Provider Reason for Visit Reason Comments Medication Refill losartan Encounter Details Date Type Department Care Team Description 05/08/2019 [facility] Gabrielle Golden Refill [facility] Heart [facility] Dora RN (losartan) [address] [place] [address] Social History Tobacco Use Types Packs/Day Years Used Date Smoking Tobacco: Never Assessed Sex Assigned at Date Recorded Not on file documented as of this encounter Plan of Treatment Not on filedocumented as of this encounter Visit Diagnoses Diagnosis Benign essential hypertension Essential hypertension, benign documented in this encounter Care Teams Salesforce Trainer Relationship Specialty Start Date End Date Elyse Paredes MD PCP - General Family Practice 12/22/13 04/21/22 1540 [place] [address] documented as of this encounter
--- OUTSIDE RECORDS SUMMARY | 2022-07-09 14:18 | XMS_ITS | Encounter Summary ---
:1950 Author Organization [place] Address [address] [place] [address] Care Team Providers Name Role Phone Elyse Paredes MD Primary Care Provider Encounter Details Date Type Department Care Team Description 10/10/2019 [facility] [place] [address] [place]STROENTEROLOGY [place], [place] [address] [facility] [address] [place], [place] [phone] (Wo rk) Social History Tobacco Use Types [...] of Service: 10/10/2019 10:48 AM Status: Signed Roll Table Operator: Falguni Mccain MD (Physician) COLONOSCOPY PROCEDURE NOTE [...] anticoagulation today. Falguni Mccain 10/10/2019 10:48 AM [facility] documented in this encounter Plan [...] BY 143 (H) 70 - 139 10/10/2019 [facility] METER POCT mg/dL 11:03 AM CDT HOSPITAL POCT RESULTS Specimen Anatomical Collection Method Collection Time Receive d Time (Source) Location / / Volume Laterality Blood specimen 10/10/2019 11:03 0 (specimen) AM CDT 11:10 AM CDT Ines Schultz MD LAB - ENTER/EDIT POCT Performing Organization Address City/State/ZIP Code Phon e Number [facility] POCT RESULTS [address] [place] [address] (ABNORMAL) Glucose by meter POCT (10/10/2019 10:03 AM CDT) P athologist Signature GLUCOSE BY 164 (H) 70 - 139 10/10/2019 [facility] METER POCT mg/dL 10:03 AM CDT HOSPITAL POCT RESULTS Specimen Anatomical Collection Method Collection Time Receive d Time (Source) Location / / Volume Laterality Blood specimen 10/10/2019 10:03 0 (specimen) AM CDT 10:09 AM CDT Ines Schultz MD LAB - ENTER/EDIT POCT Performing Organization Address City/State/ZIP Code Phon e Number [facility] POCT RESULTS [address] [place] [address] EKG CARDIAC - HIM SCAN (10/10/2019) Narrative This result has an attachment that is no t available. Historical Provider ECG ORDERABLES documented in this encounter Visit Diagnoses Not on filedocumented in this encounter Care Teams Senior Staff Accountant Relationship Specialty Start Date End Date Elyse Paredes MD PCP - General Family Practice 12/22/13 04/21/22 1540 [place] [address] documented as of this encounter
--- OUTSIDE RECORDS SUMMARY | 2022-07-09 14:18 | XMS_ITS | Encounter Summary ---
:1950 Author Organization [place] Address [address] [place] [address] Care Team Providers Name Role Phone Elyse [...] on filedocumented in this encounter Care Teams Die Press Operator Relationship Specialty Start Date End Date Elyse Paredes MD PCP - General Family Practice 12/22/13 04/21/22 15[address] [place] [address] documented as of this encounter
--- OUTSIDE RECORDS SUMMARY | 2022-07-09 14:18 | XMS_ITS | Encounter Summary ---
:1950 Author Organization [place] Address [address] [place] [address] Care Team Providers Name Role Phone Elyse Paredes MD Primary Care Provider Encounter Details Date Type Department Care Team Description 06/27/2019 Hospital Encounter [facility] Candelario Barrera MD [facility] [place] GASTROENTEROLOGY [address] [address] [phone] Social History Tobacco Use Types Packs/Day Years [...] (275 lb 1.6 oz) 06/27/2019 9:08 AM COPIER TECHNICIAN Height 160 cm (5' 3) 06/27/2019 9:08 AM COPIER TECHNICIAN Body Mass Index 48.73 06/27/2019 9:08 AM COPIER TECHNICIAN documented in this encounter Medications at Time [...] been reviewed and no updates are needed. ER TECHNICIAN documented in this encounter Nursing Notes Awilda Turner - 06/26/2019 10:27 AM CST Pt. on coumadin, stopped 06/22/19. Dr. Vasques, anesth. call for an INR order for day of procedure-obtained. ER TECHNICIAN documented in this encounter Miscellaneous Notes Op Note - Jeni Barrera - 06/27/2019 10:14 AM CST [facility] Colonoscopy Note Patient Name: Marci Diaz [...] double prep. Jeni Barrera 06/27/2019 10:14 AM [facility] ER TECHNICIAN documented in this encounter Plan of Treatment Not on filedocumented as of this encounter Procedures Procedure Name Priority Date/Time Associated Diagnosis Comme nts INR Routine 06/27/2019 9:26 AM Results f or this COPIER TECHNICIAN procedure are i n the results section. GLUCOSE BY METER Routine 06/27/2019 9:07 AM Resul ts for this POCT COPIER TECHNICIAN procedure are i n the results section. EKG CARDIAC - HIM 06/27/2019 SCAN documented in this encounter Results (ABNORMAL) INR (06/27/2019 9:26 AM COPIER TECHNICIAN) P athologist Signature INR 1.14 (H) 0.90 - 1.10 06/27/2019 [facility] 9:52 AM COPIER TECHNICIAN [facility] Specimen Anatomical Collection Method / Collection Time Recei gil Time (Source) Location / Volume Laterality Blood specimen STRUCTURE OF RIGHT Venipuncture / 06/27/2019 9:26 9:30 (specimen) UPPER LIMB / Unknown AM COPIER TECHNICIAN AM COPIER TECHNICIAN Unknown Narrative [facility] - 06/27/2019 9:52 AM COPIER TECHNICIAN INR Therapeutic Ranges: Mech. Valve 2.5-3.5 Post Surg. ??2.0-3.0 DVT/PE ?2.0-3.0 Lenny Vasques MD LAB - BLOOD ORDERABLES Performing Organization Address City/State/ZIP Code [place] [address] [id number] [place] [address] [place] [address], [facility] (ABNORMAL) Glucose by meter POCT (06/27/2019 9:07 AM COPIER TECHNICIAN) athologist Signature GLUCOSE BY 213 (H) 70 - 139 06/27/2019 [facility] POCT mg/dL 9:07 AM COPIER TECHNICIAN HOSPITAL POCT RESULTS Specimen Anatomical Collection Method Collection Time Receive d Time (Source) Location / / Volume Laterality Blood specimen 06/27/2019 9:07 AM 019 9:18 (specimen) COPIER TECHNICIAN AM COPIER TECHNICIAN Ines Schultz MD LAB - ENTER/EDIT POCT Performing Organization Address City/State/ZIP Code Phon e Number [facility] POCT RESULTS [address] [place] [address] EKG CARDIAC - HIM SCAN (06/27/2019) Narrative This result has an attachment that is no t available. Historical Provider ECG ORDERABLES documented in this encounter Visit Diagnoses Not on filedocumented in this encounter Care Teams Blow Mold Machine Operator Relationship Specialty Start Date End Date Elyse Paredes MD PCP - General Family Practice 12/22/13 04/21/22 1540 [place], [place] [phone] documented as of this encounter
--- OUTSIDE RECORDS SUMMARY | 2022-07-09 14:18 | XMS_ITS | Encounter Summary ---
:1950 Author Organization [place] Address [address] [place] [address] Care Team Providers Name Role Phone Elyse Paredes MD Primary Care Provider Encounter Details Date Type Department Care Team Description 02/03/2019 Ambulatory - [facility] S/P coronary artery stent pl acement; [address] S/P TAVR (transcatheter aort ic valve replacement) [place] [address] Social History Tobacco Use Types [...] lacement) documented in this encounter Care Teams Telephone Directory Deliverer Relationship Specialty Start Date End Date Elyse Paredes MD PCP - General Family Practice 12/22/13 04/21/22 3832 [place] [address] documented as of this encounter
--- OUTSIDE RECORDS SUMMARY | 2022-07-09 14:18 | XMS_ITS | Encounter Summary ---
:1950 Author Organization [facility] Address [address] [place] [address] Care Team Providers Name Role Phone Elyse Paredes MD Primary Care Provider Reason for Visit Reason Comments Shoulder Pain Encounter Details Date Type Department Care Team Description 06/05/2020 Hospital Encounter [facility] Buddy South Acute pain of left DEPARTMENT D, DO shoulder [address] [address] [phone] Social History Tobacco Use Types Packs/Day Years [...] 124.3 kg (274 lb) 06/05/2020 10:22 AM CLAY WORKER Height 157.5 cm (5' 2) 06/05/2020 10:22 AM CLAY WORKER Body Mass Index 50.12 06/05/2020 10:22 AM CLAY WORKER documented in this encounter Medications at Time [...] 11:34 AM CST Pt back from xray. WORKER Liliane Moctezuma RN - 06/05/2020 11:13 AM CST Pt to xray. WORKER Buddy South MD - 06/05/2020 10:37 AM [...] her symptoms to her PCP and her information systems security analyst, and was instructed by both to present [...] Procedure: COLONOSCOPY; Surgeon: Jeni Barrera MD; Location: [facility] OR; Service: Gastroenterology ??? COLONOSCOPY N/A 10/10/2019 Procedure: COLONOSCOPY; Surgeon: Falguni Mccain MD; Location: [facility] Main OR; Service: Gastroenterology ??? CV CORONARY ANGIOGRAM N/A 05/12/2017 Procedure: Coronary Angiogram; Surgeon: Ankush Martinez MD; Location: [facility] Health Record Technician; Service: ??? CV TRANSFEMORAL TRANSCATHETER VALVE REPLACEMENT N/A 07/06/2017 Procedure: Transfemoral Transcatheter Aortic Valve Replacement; Surgeon: Ankush Martinez MD; Location: [facility] Health Record Technician; Service: ??? TOTAL KNEE ARTHROPLASTY Bilateral CURRENT [...] on phone: None Gets together: None Attends gnosticism service: None Active member of club or [...] 06/05/2020 EXAM: XR CHEST 2 VIEWS LOCATION: [facility] DATE/TIME: 06/05/2020 11:25 AMINDICATION: pain COMPARISON: 07/07/2017 No pleural fluid or pneumothorax. No airspace disease or edema. Normal size of the heart. Xr Shoulder Left 2 Or More Vws Result Date: 06/05/2020 EXAM: XR SHOULDER LEFT 2 OR MORE VWS LOCATION: [facility] DATE/TIME: 06/05/2020 11:25 AM INDICATION: [...] my direction. Buddy South DO Emergency Medicine [facility] EMERGENCY DEPARTMENT [address] [place] [address] Dept: [phone] Loc: [phone] Buddy South DO 06/05/20 1516 WORKER Alessandra Bartlett, RN - 06/05/2020 10:20 AM CST Developed left shoulder pain yesterday and does go down her left arm. No chest pain. Has felt exhausted. Was seen 2 months ago and had a echo done. WORKER documented in this encounter Plan of Treatment Not on filedocumented as of this encounter Procedures Procedure Name Priority Date/Time Associated Comments Diagnosis XR SHOULDER LEFT 2 Routine 06/05/2020 11:25 Resul ts for this VIEWS AM CLAY WORKER procedure are i n the results section. XR CHEST 2 VIEWS Routine 06/05/2020 11:25 Results for this AM CLAY WORKER procedure are i n the results section. EXTRA RED TOP TUBE STAT 06/05/2020 10:53 AM CLAY WORKER CBC WITH PLATELETS AND STAT 06/05/2020 10:53 R esults for this DIFFERENTIAL AM CLAY WORKER procedure are i n the results section. TROPONIN I STAT 06/05/2020 10:53 Results for this AM CLAY WORKER procedure are i n the results section. INR STAT 06/05/2020 10:53 Results for this AM CLAY WORKER procedure are i n the results section. PARTIAL THROMBOPLASTIN STAT 06/05/2020 10:53 R esults for this TIME AM CLAY WORKER procedure are i n the results section. BASIC METABOLIC PANEL STAT 06/05/2020 10:53 Re sults for this AM CLAY WORKER procedure are i n the results section. EKG 12-LEAD, TRACING STAT 06/05/2020 10:40 Res ults for this ONLY AM CLAY WORKER procedure are i n the results section. documented in this encounter Results XR Shoulder Left 2 Views (06/05/2020 11:25 AM CLAY WORKER) Anatomical Region Laterality Modality Shoulder, Chest, Arm Left Other Specimen (Source) Anatomical Location Collection Method / Collectio n Time Received Time / Laterality Volume Impressions 06/05/2020 11:43 AM CLAY WORKER Normal glenohumeral and acromioclavicula r alignment. There [...] rotator cuff pathology. Narrative 06/05/2020 11:43 AM CLAY WORKER EXAM: XR SHOULDER LEFT 2 OR MORE VWS LOCATION: [facility] DATE/TIME: 06/05/2020 11:25 AM INDICATION: Shoulder pain COMPARISON: None. Procedure Note Holden Acevedo MD - 01/09/2021Format ting of this note might be different from the original. EXAM: XR SHOULDER LEFT 2 OR MORE VWS LOCATION: [facility] DATE/TIME: 06/05/2020 11:25 AM INDICATION: Shoulder [...] XR Chest 2 Views (06/05/2020 11:25 AM CLAY WORKER) Anatomical Region Laterality Modality Chest Digital Radiography Specimen (Source) Anatomical Location Collection Method / Collectio n Time Received Time / Laterality Volume Impressions 06/05/2020 11:31 AM CLAY WORKER No pleural fluid or pneumothorax. No air space disease or edema. Normal size of the heart. Narrative 06/05/2020 11:31 AM CLAY WORKER EXAM: XR CHEST 2 VIEWS LOCATION: [facility] DATE/TIME: 06/05/2020 11:25 AM INDICATION: pain COMPARISON: 07/07/2017 Procedure Note Olu Bryson MD - 01/09/2021Formatti ng of this note might be different from the original. EXAM: XR CHEST 2 VIEWS LOCATION: [facility] DATE/TIME: 06/05/2020 11:25 AM INDICATION: pain COMPARISON: 07/07/2017 IMPRESSION: No pleural fluid or pneumothorax. No air space disease or edema. Normal size of the heart. Buddy South DO IMG DIAGNOSTIC IMAGING ORDER [place] EXTRA RED TOP TUBE (06/05/2020 10:53 AM CLAY WORKER) Specimen Anatomical Collection Method Collection Time Receive d Time (Source) Location / / Volume Laterality Blood specimen VAD(CVC, PICC) / 06/05/2020 10:53 06/05 (specimen) Unknown AM CLAY WORKER 10:59 AM CLAY WORKER Buddy South DO LAB - BLOOD ORDERABLES CBC WITH PLATELETS AND DIFFERENTIAL (06/05/2020 10:53 AM CLAY WORKER) Analysis Performed At Patho logist Time Signature WBC 7.6 4.0 - 11.0 06/05/2020 [facility]/uL 11:01 AM [facility]aceuticals[facility] RBC Count 4.08 3.80 - 06/05/2020 [facility] 5.40 11:01 AM [facility] Hemoglobin 13.5 12.0 - 06/05/2020 HEALTH 16.0 g/dL 11:01 AM [facility] Hematocrit 38.5 35.0 - 06/05/2020 HEALTH 47.0 % 11:01 AM [facility] MCV 94 80 - 100 06/05/2020 HEALTH fL 11:01 AM [facility] MCH 33.1 27.0 - 06/05/2020 HEALTH 34.0 pg 11:01 AM [facility] MCHC 35.1 32.0 - 06/05/2020 HEALTH 36.0 g/dL 11:01 AM [facility] RDW 13.7 11.0 - 06/05/2020 HEALTH 14.5 % 11:01 AM [facility]ITALPathCentralHOSPITAL FOR SPECIAL SURGERYLive Youth Sports NetworkS LABORATORY Platelet Count 190 140 - 440 06/05/2020 [facility]/uL 11:01 AM [facility] FieldooUC MEDICAL CENTERPathCentralXena [facility] Mean Platelet 10.5 8.5 - 12.5 06/05/2020 [facility] Volume fL 11:01 AM [facility] FieldooUC MEDICAL CENTERNvelopedS LABORATORY % Neutrophils 66 50 - 70 % 06/05/2020 HEALTH 11:01 AM CLAY WORKER [facility] CENTERPathCentralMeetmeals'S LABORATORY % Lymphocytes 23 20 - 40 % 06/05/2020 HEALTH 11:01 AM CLAY WORKER [facility] % Monocytes 8 2 - 10 % 06/05/2020 [facility] 11:01 AM [facility] % Eosinophils 2 0 - 6 % 06/05/2020 [facility] 11:01 AM [facility] % Basophils 1 0 - 2 % 06/05/2020 HEALTH 11:01 AM [facility] % Immature 0 <=0 % 06/05/2020 [facility] Granulocytes 11:01 AM [facility] Absolute 5.0 2.0 - 7.7 06/05/2020 [facility] Neutrophils thou/uL 11:01 AM [facility] Absolute 1.8 0.8 - 4.4 06/05/2020 [facility] Lymphocytes thou/uL 11:01 AM [facility] Absolute 0.6 0.0 - 0.9 06/05/2020 [facility] Monocytes thou/uL 11:01 AM [facility] Eosinophils 0.2 0.0 - 0.4 06/05/2020 HEALTH Absolute thou/uL 11:01 AM [facility] Absolute 0.1 0.0 - 0.2 06/05/2020 [facility] Basophils thou/uL 11:01 AM [facility] Absolute Immature 0.0 <=0.0 06/05/2020 [facility] Granulocytes thou/uL 11:01 AM [facility] Specimen Anatomical Collection Method Collection Time Receive d Time (Source) Location / / Volume Laterality Blood specimen VAD(CVC, PICC) / 06/05/2020 10:53 06/05 (specimen) Unknown AM CLAY WORKER 10:58 AM CLAY WORKER Buddy South DO LAB - BLOOD ORDERABLES Performing Organization Address City/State/ZIP Code Phon e [place] [address] [phone] [address] [facility] (ABNORMAL) Basic metabolic panel (06/05/2020 10:53 AM CLAY WORKER) [facility] Method Time Signature Sodium 135 (L) 136 - 145 06/05/2020 [facility] mmol/L 11:17 AM [facility] Potassium 3.6 3.5 - 5.0 06/05/2020 [facility] mmol/L 11:17 AM [facility] Chloride 99 98 - 107 06/05/2020 [facility] mmol/L 11:17 AM [facility] Carbon Dioxide 27 22 - 31 06/05/2020 [facility] (CO2) mmol/L 11:17 AM [facility] Anion Gap 9 5 - 18 06/05/2020 [facility] mmol/L 11:17 AM [facility] Glucose 239 (H) 70 - 125 06/05/2020 [facility] mg/dL 11:17 AM [facility] Calcium 9.7 8.5 - 10.5 06/05/2020 [facility] mg/dL 11:17 AM [facility] Urea Nitrogen 24 (H) 8 - 22 06/05/2020 [facility] mg/dL 11:17 AM [facility] Creatinine 1.56 (H) 0.60 - 06/05/2020 [facility] 1.10 mg/dL 11:17 AM [facility] GFR Estimate If 40 (L) >60 06/05/2020 [facility] Black mL/min/1.7 11:[address] LABORATORY GFR Estimate 33 (L) >60 06/05/2020 [facility] mL/min/1.7 11:[address] LABORATORY Specimen Anatomical Collection Method Collection Time Receive d Time (Source) Location / / Volume Laterality Blood specimen VAD(CVC, PICC) / 06/05/2020 10:53 06/05 (specimen) Unknown AM CLAY WORKER 10:58 AM CLAY WORKER Narrative [facility] - 06/05/2020 11:17 AM CLAY WORKER Fasting Glucose reference range is 70-99 mg/dL per [place] [employer] (ADA) charles martinez. Buddy South DO LAB - BLOOD ORDERABLES Performing Organization Address City/State/ZIP Code Phon e [place] [address] [address] [facility] [address], [facility] [phone] Troponin I (06/05/2020 10:53 AM CLAY WORKER) P athologist Signature Troponin I 0.02 0.00 - 0.29 06/05/2020 [facility] ng/mL 11:25 AM CLAY WORKER [facility] Specimen Anatomical Collection Method Collection Time Receive d Time (Source) Location / / Volume Laterality Blood specimen VAD(CVC, PICC) / 06/05/2020 10:53 06/05 (specimen) Unknown AM CLAY WORKER 10:58 AM CLAY WORKER Buddy South DO LAB - BLOOD ORDERABLES Performing Organization Address [facility] [place] [address] [address] [facility] (ABNORMAL) INR (06/05/2020 10:53 AM CLAY WORKER) P athologist Signature INR 2.10 (H) 0.90 - 1.10 06/05/2020 [facility] 11:08 AM CLAY WORKER [facility] Specimen Anatomical Collection Method Collection Time Receive d Time (Source) Location / / Volume Laterality Blood specimen VAD(CVC, PICC) / 06/05/2020 10:53 06/05 (specimen) Unknown AM CLAY WORKER 10:58 AM CLAY WORKER Narrative [facility] - 06/05/2020 11:08 AM CLAY WORKER INR Therapeutic Ranges: Mech. Valve 2.5-3.5 Post Surg. ??2.0-3.0 DVT/PE ?2.0-3.0 Buddy South DO LAB - BLOOD ORDERABLES Performing Organization Address City/[facility] Code Phon e Number [facility] [address] [address] [facility] [place] [address], [facility] [phone] Partial thromboplastin time (06/05/2020 10:53 AM CLAY WORKER) athologist Signature aPTT 30 24 - 37 06/05/2020 [facility] seconds 11:08 AM CLAY WORKER [facility] Specimen Anatomical Collection Method Collection Time Receive d Time (Source) Location / / Volume Laterality Blood specimen VAD(CVC, PICC) / 06/05/2020 10:53 06/05 (specimen) Unknown AM CLAY WORKER 10:58 AM CLAY WORKER Buddy South DO LAB - BLOOD ORDERABLES Performing Organization Address City/State/ZIP Code Phon e Number [facility] [place] [address] [address] [facility] EKG 12-lead, tracing only (06/05/2020 10:40 AM CLAY WORKER) Patholo gist Method Time Signature Systolic Blood 06/12/2020 [facility] Pressure 8:50 AM CARDIOLOGY CLAY WORKER CONVERSION Diastolic Blood 06/12/2020 [facility] Pressure 8:50 AM CARDIOLOGY CLAY WORKER CONVERSION Ventricular Rate 85 BPM 06/12/2020 HE 8:50 AM CARDIOLOGY CLAY WORKER CONVERSION Atrial Rate 85 BPM 06/12/2020 HE 8:50 AM CARDIOLOGY CLAY WORKER CONVERSION MT Interval 160 ms 06/12/2020 HE 8:50 AM CARDIOLOGY CLAY WORKER CONVERSION QRS Duration 96 ms 06/12/2020 HE 8:50 AM CARDIOLOGY CLAY WORKER CONVERSION QT 396 ms 06/12/2020 HE 8:50 AM CARDIOLOGY CLAY WORKER CONVERSION QTc 471 ms 06/12/2020 [facility] 8:50 AM CARDIOLOGY CLAY WORKER CONVERSION P [place] 45 degrees 06/12/2020 HE 8:50 AM CARDIOLOGY CLAY WORKER CONVERSION R AXIS 31 degrees 06/12/2020 HE 8:50 AM CARDIOLOGY CLAY WORKER CONVERSION T [place] 52 degrees 06/12/2020 HE 8:50 AM CARDIOLOGY CLAY WORKER CONVERSION Interpretation Normal sinus rhythm 06/12/2020 [facility] ECG Normal ECG 8:50 AM CARDIOLOGY When compared with ECG of 05-JUL-2019 13:22, CLAY WORKER CONVERSION No significant change was found Confirmed by SEE ED PROVIDER NOTE FOR, ECG INTERPRETATION (3999), web content editor Brendan Cardona () on 06/12/2020 8:50:04 AM Specimen Anatomical Collection Method Collection Time Receive d Time (Source) Location / / Volume Laterality 06/05/2020 10:40 06/12/2020 8:50 AM CLAY WORKER AM CLAY WORKER Buddy South DO ECG ORDERABLES Performing Organization Address City/State/ZIP Code Phon e Number [facility] CARDIOLOGY CONVERSION documented in this encounter Visit Diagnoses Diagnosis Acute pain of left shoulder documented in this encounter Care Teams Pastry Artist Relationship Specialty Start Date End Date Elyse Paredes MD PCP - General Family Practice 12/22/13 04/21/22 [address] [place] [address] documented as of this encounter
--- OUTSIDE RECORDS SUMMARY | 2022-07-09 14:18 | XMS_ITS | Encounter Summary ---
:1950 Author Organization [place] Address [address] [place] [address]. [place] [address] Care Team Providers Name Role Phone Elyse Paredes MD Primary Care Provider Reason for Visit Reason Comments Medication Refill Encounter Details Date Type Department Care Team Description 02/09/2020 Communication - Health [place] Dagmar Kang, Medica tion Refill [facility] [place] [address] [facility] [place] [address] [place] [address] [phone] Social History Tobacco Use Types Packs/Day Years Used Date Smoking Tobacco: Never Assessed Sex Assigned at Date Recorded Not on file documented as of this encounter Plan of Treatment Not on filedocumented as of this encounter Visit Diagnoses Diagnosis Benign essential hypertension Essential hypertension, benign S/P TAVR (transcatheter aortic valve rep lacement) documented in this encounter Care Teams Produce Runner Relationship Specialty Start Date End Date Elyse Paredes MD PCP - General Family Practice 12/22/13 04/21/22 [address] [place] [address] documented as of this encounter
--- OUTSIDE RECORDS SUMMARY | 2022-07-09 14:18 | XMS_ITS | Encounter Summary ---
:1950 Author Organization [place] Address [address] [place] [address] Care Team Providers Name Role Phone Elyse [...] Types DNA Cervical (04/03/2020 8:25 AM CDT) [facility] Method Time Signature HPV Source [facility] 04/04/2020 [facility] 1:15 PM [facility] HPV16 DNA Negative NEG 04/04/2020 [facility] 1:15 PM [facility] HPV18 DNA Negative NEG 04/04/2020 [facility] 1:15 PM [facility] Other HR HPV Negative NEG 04/04/2020 [facility] 1:15 PM [facility]T [facility] FINAL SEE NOTES 04/04/2020 [facility] 1:15 PM [facility]T [facility] Comment: This patient's sample is negative for HP V DNA. This test was developed and its performa nce characteristics determined by the [facility], Molecular Diagnostics Laboratory. It has not been [...] Description Cervical Cells 04/04/2020 1:1 5 PM [facility] CDT [facility]OR[facility] Comment: Performed and/or entered by: [facility] [address] [place] [address] Specimen Anatomical Collection Method Collection Time Receive d Time (Source) Location / / Volume Laterality Specimen from 04/03/2020 8:25 AM 04/04/20 20 5:26 genital system CDT PM CDT (specimen) Elyse Paredes MD LAB - BLOOD ORDERABLES Performing Organization Address City/State/ZIP Code Phon e Number [facility] [address] [place] [address] LABORATORIES [address] Gynecologic Cytology (PAP Smear) (04/03/2020 8:25 AM CDT) Component Value Ref Range Test Analysis Performed Pathologis t Method Time At Signature Case Report Gynecologic Cytology Report ? Case: [id number] ? [facility] Authorizing Provider: ??Elyse Paredes MD ? Collected: ? 04/03/2020 0825 ? 0 2:48 PM [facility] Ordering Location: ?[facility] Lab Received: ?04/04/2020 0958 ? CDT [...] City/State/ZIP Code Phon [place] [address] [address] [facility] documented in this encounter Visit Diagnoses Not on filedocumented in this encounter Care Teams Patient Relations Manager Relationship Specialty Start Date End Date Elyse Paredes MD PCP - General Family Practice 12/22/13 04/21/22 [address] [place] [address] documented as of this encounter
--- OUTSIDE RECORDS SUMMARY | 2022-07-09 14:18 | XMS_ITS | Encounter Summary ---
:1950 Author Organization [facility] Address [address] [place] [address] Care Team Providers Name Role Phone Elyse Paredes MD Primary Care Provider Reason for Visit Reason Comments Medication Refill losartan Encounter Details Date Type Department Care Team Description 02/06/2019 [facility] Gabrielle Golden tihossein Refill [facility] Dora RN (losartan) [address] [place] [address] Social History Tobacco Use Types Packs/Day Years Used Date Smoking Tobacco: Never Assessed Sex Assigned at Date Recorded Not on file documented as of this encounter Plan of Treatment Not on filedocumented as of this encounter Visit Diagnoses Diagnosis Benign essential hypertension Essential hypertension, benign documented in this encounter Care Teams Garde Manger Relationship Specialty Start Date End Date Elyse Paredes MD PCP - General Family Practice 12/22/13 04/21/22 [address] [place] [address] documented as of this encounter
--- OUTSIDE RECORDS SUMMARY | 2022-07-09 14:18 | XMS_ITS | Encounter Summary ---
:1950 Author Organization [place] Address [address] [place] [address]. [place] [address] Care Team Providers Name Role Phone Elyse Paredes MD Primary Care Provider Encounter Details Date Type Department Care Team Description 12/21/2019 [facility] Provider, [address] [place] [address] Social History Tobacco Use Types [...] on filedocumented in this encounter Care Teams Switch Operator Relationship Specialty Start Date End Date Elyse Paredes MD PCP - General Family Practice 12/22/13 04/21/22 [address] [place], [place] [id number] documented as of this encounter
--- OUTSIDE RECORDS SUMMARY | 2022-07-09 14:18 | XMS_ITS | Encounter Summary ---
:1950 Author Organization [place] Address [address] [place] [address] Care Team Providers Name Role Phone Elyse Paredes MD Primary Care Provider Encounter Details Date Type Department Care Team Description 07/10/2019 [facility] dorota Farmer [address] [place] [phone] Social History Tobacco Use Types Packs/Day Years Used Date Smoking Tobacco: Never Assessed Sex Assigned at Date Recorded Not on file documented as of this encounter Progress Notes Cinda Patiño - 07/10/2019 10:26 AM CST Images from the original note were not included. Progress Notes by Cinda Ptaiño RN at 07/10/2019 10:26 AM Author: Cinda Patiño RN Service: -- Author Type: Patient Access Filed: 07/21/2019 10:00 PM Encounter Date: 07/10/2019 Status: Signed Community Development Specialist: Cinda Patiño RN (Registered Nurse) Zestar Study Device Return Marci Diaz returned all the devices for the Zestar study. Marci Diaz denies medication changes or adverse events since last visit. Marci Diaz has now completed their participation in the Zestar study. Thank you for your gift of participation. Cinda Patiño RONMENTAL 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 ENGINEER documented in this encounter Plan of Treatment Not on filedocumented as of this encounter Visit Diagnoses Not on filedocumented in this encounter Care Teams Microfilming Document Preparer Relationship Specialty Start Date End Date Elyse Paredes MD PCP - General Family Practice 12/22/13 04/21/22 [address] [place] [address] documented as of this encounter
--- OUTSIDE RECORDS SUMMARY | 2022-07-09 14:18 | XMS_ITS | Encounter Summary ---
:1950 Author Organization [place] Address [address] [place] [address] Care Team Providers Name Role Phone Elyse Paredes MD Primary Care Provider Reason for Visit Reason Comments Research Study Encounter Details Date Type Department Care Team Description 07/07/2019 Communication - [facility] Nathalia Patiño earch Study [facility] Cinda Darian Bateman [address] [place] [phone] Social History Tobacco Use Types Packs/Day Years Used Date Smoking Tobacco: Never Assessed Sex Assigned at Date Recorded Not on file documented as of this encounter Miscellaneous Notes Telephone Encounter - Cinda Patiño - 07/06/2019 9:25 AM BASE PLY HAND Patient called because her watches were out of battery the morning of day 2. Was wondering if that would screw up the data if she left it off for 3 hours rater than 2 so then it could be charged for the whole day. Said to just harrison it in her journal and all will be well. Cinda Wolf PLY HAND documented in this encounter Plan of Treatment Not on filedocumented as of this encounter Visit Diagnoses Not on filedocumented in this encounter Care Teams Medicine Worker Relationship Specialty Start Date End Date Elyse Paredes MD PCP - General Family Practice 12/22/13 04/21/22 [address] [place] [address] documented as of this encounter
--- OUTSIDE RECORDS SUMMARY | 2022-07-09 14:18 | XMS_ITS | Encounter Summary ---
:1950 Author Organization [place] Address [address] [place] [address] Care Team Providers Name Role Phone Elyse Paredes MD Primary Care Provider Reason for Visit Reason Comments Medication Refill metoprolol succ Encounter Details Date Type Department Care Team Description 08/14/2019 Communication - [facility] Gabrielle Golden tion Refill [facility] M, RN (metoprolol suc c) [place] [address] [facility] [address] [place] [phone] Social History Tobacco Use Types Packs/Day Years Used Date Smoking Tobacco: Never Assessed Sex Assigned at Date Recorded Not on file documented as of this encounter Plan of Treatment Not on filedocumented as of this encounter Visit Diagnoses Diagnosis S/P TAVR (transcatheter aortic valve rep lacement) documented in this encounter Care Teams Tail Worker Relationship Specialty Start Date End Date Elyse Paredes MD PCP - General Family Practice 12/22/13 04/21/22 1540 [place] [address] documented as of this encounter
--- OUTSIDE RECORDS SUMMARY | 2022-07-09 14:18 | XMS_ITS | Encounter Summary ---
:1950 Author Organization [place] Address [address] [place] [address] Care Team Providers Name Role Phone Elyse Paredes MD Primary Care Provider Encounter Details Date Type Department Care Team Description 10/04/2019 Records - [facility] [address] [place] [phone] Social History Tobacco Use Types Packs/Day Years Used Date Smoking Tobacco: Never Assessed Sex Assigned at Date Recorded Not on file documented as of this encounter Plan of Treatment Not on filedocumented as of this encounter Procedures Procedure Name Priority Date/Time Associated Comments Diagnosis B-TYPE NATRIURETIC Routine 10/04/2019 3:02 PM Res ults for this PEPTIDE ( EAST ONLY) SHUTTLELESS LOOM WEAVER proce dure are in the results section. LIPID PROFILE Routine 10/04/2019 3:02 PM Results for this SHUTTLELESS LOOM WEAVER procedure are i n the results section. COMPREHENSIVE Routine 10/04/2019 3:02 PM Results for this METABOLIC PANEL SHUTTLELESS LOOM WEAVER procedure ar e in the results section. documented in this encounter Results B-Type Natriuretic Peptide ( East Only) (10/04/2019 3:02 PM SHUTTLELESS LOOM WEAVER) P athologist Signature BNP 12 0 - 112 10/04/2019 [facility] pg/mL 7:41 PM SHUTTLELESS LOOM WEAVER [facility] Specimen Anatomical Collection Method Collection Time Receive d Time (Source) Location / / Volume Laterality Blood specimen 10/04/2019 3:02 PM 020 5:51 (specimen) SHUTTLELESS LOOM WEAVER PM SHUTTLELESS LOOM WEAVER Elyse Paredes MD LAB - BLOOD ORDERABLES Performing Organization Address [facility] Phon [place] [address] [address] [facility] (ABNORMAL) Lipid Profile (10/04/2019 3:02 PM SHUTTLELESS LOOM WEAVER) [facility] Method Time Signature Cholesterol 159 <=199 10/04/2019 [facility] mg/dL 7:58 PM SHUTTLELESS LOOM WEAVER [facility] Triglycerides 182 (H) <=149 10/04/2019 [facility]ALTH mg/dL 7:58 PM SHUTTLELESS LOOM WEAVER [facility] Direct Measure 53 >=50 10/04/2019 [facility]ALTH HDL mg/dL 7:58 PM [facility] LDL Cholesterol 70 <=129 10/04/2019 [facility]ALTH Calculated mg/dL 7:58 PM SHUTTLELESS LOOM WEAVER [facility] Patient Fasting > No 10/04/2019 HEALTH 8hrs? 7:58 PM [facility] Specimen Anatomical Collection Method Collection Time Receive d Time (Source) Location / / Volume Laterality Blood specimen 10/04/2019 3:02 PM 020 6:39 (specimen) SHUTTLELESS LOOM WEAVER PM SHUTTLELESS LOOM WEAVER Elyse Paredes MD LAB - BLOOD ORDERABLES Performing Organization Address [facility] Phon [place] [address] [phone] [address] [facility] (ABNORMAL) Comprehensive metabolic panel (10/04/2019 3:02 PM SHUTTLELESS LOOM WEAVER) [employer] Method Time Signature Sodium 140 136 - 145 10/04/2019 [facility] mmol/L 7:58 PM SHUTTLELESS LOOM WEAVER [facility] Potassium 4.1 3.5 - 5.0 10/04/2019 [facility] mmol/L 7:58 PM [facility] Chloride 101 98 - 107 10/04/2019 [facility] mmol/L 7:58 PM [facility] Carbon Dioxide 29 22 - 31 10/04/2019 [facility] (CO2) mmol/L 7:58 PM [facility] Anion Gap 10 5 - 18 10/04/2019 [facility] mmol/L 7:58 PM [facility] Glucose 141 (H) 70 - 125 10/04/2019 [facility] mg/dL 7:58 PM [facility] Urea Nitrogen 25 (H) 8 - 22 10/04/2019 [facility] mg/dL 7:58 PM [facility] Creatinine 1.65 (H) 0.60 - 10/04/2019 [facility] 1.10 7:58 PM [facility] mg/dL [facility] GFR Estimate If 38 (L) >60 10/04/2019 [facility]ALTH Black mL/min/1. 7:[address] LABORATORY GFR Estimate 31 (L) >60 10/04/2019 [facility] mL/min/1. 7:[address] LABORATORY Bilirubin Total 0.9 0.0 - 1.0 10/04/2019 [facility] mg/dL 7:58 PM [facility] Calcium 9.9 8.5 - 10/04/2019 [facility] 10.5 7:58 PM [facility] mg/dL [facility] Protein Total 7.2 6.0 - 8.0 10/04/2019 [facility] g/dL 7:58 PM [facility] Albumin 3.7 3.5 - 5.0 10/04/2019 [facility] g/dL 7:58 PM [facility] Alkaline 71 45 - 120 10/04/2019 [facility] Phosphatase U/L 7:58 PM [facility] AST 29 0 - 40 10/04/2019 [facility] U/L 7:58 PM SHUTTLELESS LOOM WEAVER [facility] ALT 23 0 - 45 10/04/2019 [facility] U/L 7:58 PM SHUTTLELESS LOOM WEAVER [facility] Specimen Anatomical Collection Method Collection Time Receive d Time (Source) Location / / Volume Laterality Blood specimen 10/04/2019 3:02 PM 020 6:39 (specimen) SHUTTLELESS LOOM WEAVER PM SHUTTLELESS LOOM WEAVER Narrative [facility] - 10/04/2019 7:58 PM SHUTTLELESS LOOM WEAVER Fasting Glucose reference range is 70-99 mg/dL per [place] [employer] (ADA) charles martinez. Elyse Paredes MD LAB - BLOOD ORDERABLES Performing Organization Address City/State/ZIP Code [place] [address] LABORATORY [facility] [address] [place] [address] documented in this encounter Visit Diagnoses Not on filedocumented in this encounter Care Teams Mortgage Loan Computation Clerk Relationship Specialty Start Date End Date Elyse Paredes MD PCP - General Family Practice 12/22/13 04/21/22 [address] [place] [address] documented as of this encounter
--- OUTSIDE RECORDS SUMMARY | 2022-07-09 14:18 | XMS_ITS | Encounter Summary ---
:1950 Author Organization [place] Address [address] [place] [address] Care Team Providers Name Role Phone Elyse Paredes MD Primary Care Provider Encounter Details Date Type Department Care Team Description 10/10/2019 Anesthesia - [facility] Mariely Lee, [address] [phone] [place] [address] [place] [phone] Social History Tobacco Use Types Packs/Day Years [...] on filedocumented in this encounter Care Teams Buffer Inflated Pad Relationship Specialty Start Date End Date Elyse Paredes MD PCP - General Family Practice 12/22/13 04/21/22 [address] [place] [address] documented as of this encounter
--- OUTSIDE RECORDS SUMMARY | 2022-07-09 14:18 | XMS_ITS | Encounter Summary ---
:1950 Author Organization [place] Address [address] [place] [address] Care Team Providers Name Role Phone Elyse Paredes MD Primary Care Provider Reason for Visit Reason Comments Patient Inquiry Encounter Details Date Type Department Care Team Description 07/03/2019 Communication - [facility] Nellie Chavez ient Inquiry [facility] RN [address] [phone] Social History Tobacco Use Types [...] study. Plan: Marci Diaz will come to [facility] on 07/05/19 to continue consent process. If shecontinues to agrees to participate, the study visit will be done on the same day. she was instructed to eat as usual before coming for study visit and take medications as usual too. she was encouraged to wear comfortable clothes and shoes to the study appointment. Nellie Chavez, EPS LER documented in this encounter Plan of Treatment Not on filedocumented as of this encounter Visit Diagnoses Not on filedocumented in this encounter Care Teams Clean Room Technician Relationship Specialty Start Date End Date Elyse Paredes MD PCP - General Family Practice 12/22/13 04/21/22 [address] [place] [address] documented as of this encounter
--- OUTSIDE RECORDS SUMMARY | 2022-07-09 14:18 | XMS_ITS | Encounter Summary ---
:1950 Author Organization [place] Address [address] [place] [address] Care Team Providers Name Role Phone Elyse Paredes MD Primary Care Provider Reason for Visit Reason Comments Research Study Encounter Details Date Type Department Care Team Description 07/05/2019 [facility] l fibrillation [address] [phone] Social History Tobacco Use Types Packs/Day Years Used Date Smoking Tobacco: Never Assessed Sex Assigned at Date Recorded Not on file documented as of this encounter Last Filed Vital Signs Vital Sign Reading Time Taken Comments Blood Pressure 105/45 07/05/2019 1:11 PM HEAD SCREEN WORKER Pulse 80 07/05/2019 1:11 PM HEAD SCREEN WORKER Temperature 36.7 ??C (98.1 ??F) 07/05/2019 1:08 PM HEAD SCREEN WORKER Respiratory Rate 16 07/05/2019 1:08 PM HEAD SCREEN WORKER Oxygen Saturation - - Inhaled Oxygen Concentration - - Weight 127.1 kg (280 lb 1.6 oz) 07/05/2019 1:11 PM HEAD SCREEN WORKER Height 157.5 cm (5' 2) 07/05/2019 1:11 PM HEAD SCREEN WORKER Body Mass Index 51.23 07/05/2019 1:11 PM HEAD SCREEN WORKER documented in this encounter Progress Notes Robert Weems - 07/05/2019 12:30 PM CST Images from the original note were not included. Progress Notes by Robert Weems at 07/05/2019 12:30 PM Author: Robert Weems Service: -- Author Type: Patient Access Filed: 07/05/2019 3:54 PM Encounter Date: 07/05/2019 Status: Signed Clinical Fellow: Robert Weems (Patient Access) [facility] Study Consent [...] Subject participated in previous ECG study at [facility]: [] Yes [x] No Past Medical History: [...] band notch: 4 Secure band notch: 4 [place] orientation: [] left [x] right Device wearing [...] return the equipment on 07/10/19. Robert Weems SCREEN WORKER Robert Weems - 07/05/2019 12:30 PM CST Images from the original note were not included. Progress Notes by Robert Weems at 07/05/2019 12:30 PM Author: Robert Weems Service: -- Author Type: Patient Access Filed: 07/12/2019 8:02 AM Encounter Date: 07/05/2019 Status: Signed Clinical Fellow: Lm Kiser MD (Physician) Related Notes: Original Note by Robert Weems (Patient Access) filed at 07/05/2019 3:54 PM [place] Study Inclusion / Exclusion Criteria Protocol Version 4.0 (53SCP0671) Inclusion Criteria Yes No Criteria # Subject [...] of screening: ? Permanent/persistent AF ? PVC [place] ? Frequent PACs Note: If not present at screening, subjects may not be enrolled as a non-NSR subject or NSR subject. 3 [x] N/A HE site For Subjects to be enrolled as NSR they must be in NSR at the time of screening as determined by the gullet slitter. For subjects ?65 years old with PVC [...] significant hand tremors, as judged by the Tank Inspector [] [x] 5 Resting hypertension with systolic blood pressure ?161 mmHg or diastolic blood pressure ?101 mmHg (if at least 2 of 3 measurements meet this criteria) [] [x] 6 Subjects with a pacemaker or an automated implantable cardioverter- defibrillator (AICD) [] [x] 7 Acute myocardial infarction (MA) within 90 days from the screening visit [] [x] 8 Other cardiovascular disease that increases the risk to the subject or would render the data uninterpretable in the opinion of the Tank Inspector (e.g., recent or ongoing unstable angina, significant valvular heart disease or chronic heart failure, myocarditis or pericarditis) [] [x] 9 Acute pulmonary embolism, pulmonary infarction, or deep vein thrombosis within 90 days fromthe screening visit [] [x] 10 Stroke or transient ischemic attack within 90 days from the screening visit [] [x] 11 Known untreated medical conditions as determined by the Tank Inspector, such as but not limited to significant [...] chest, forearms, stomach), as determined by the gullet slitter. [] [x] 15 Tattoos, scars or moles [...] finding/assessment that in the opinion of the gullet slitter could compromise subject safety during study participation [...] 3:54 PM Encounter Date: 07/05/2019 Status: Signed Clinical Fellow: Terri Goyal CNP (Nurse Practitioner) [facility] Study Physical Examination For abnormal findings, please evaluate if the finding is Clinically Significant (by 'CS') or Not Clinically Significant (by 'NCS') General Appearance Normal Head and Neck Normal Lungs Normal Cardiovascular Normal Abdomen Normal Musculoskeletal/Extremities Normal Lymph Nodes Normal Skin Normal Neurological Normal Tremor absent If present, evaluate severity on 1-10 scale Terri Goyal CNP SCREEN WORKER documented in this encounter Plan of Treatment Not on filedocumented as of this encounter Procedures Procedure Name Priority Date/Time Associated Diagnosis Comme nts ECG 12-LEAD WITH MUSE Routine 07/05/2019 Result s for this ? procedure are in the [facility] results section . documented in this encounter Results ECG 12-LEAD WITH MUSE (LHE) (07/05/2019) [facility] Method Time Signature Systolic Blood 07/05/2019 HE RADIANT Pressure 2:54 PM CONVERSION HEAD SCREEN WORKER Diastolic Blood 07/05/2019 HE RADIANT Pressure 2:54 PM CONVERSION HEAD SCREEN WORKER Ventricular Rate 85 BPM 07/05/2019 HE RADIANT 2:54 PM CONVERSION HEAD SCREEN WORKER Atrial Rate 85 BPM 07/05/2019 HE RADIANT 2:54 PM CONVERSION HEAD SCREEN WORKER SD Interval 154 ms 07/05/2019 HE RADIANT 2:54 PM CONVERSION HEAD SCREEN WORKER QRS Duration 96 ms 07/05/2019 HE RADIANT 2:54 PM CONVERSION HEAD SCREEN WORKER QT 382 ms 07/05/2019 HE RADIANT 2:54 PM CONVERSION HEAD SCREEN WORKER QTc 454 ms 07/05/2019 HE RADIANT 2:54 PM CONVERSION HEAD SCREEN WORKER P [place] -3 degrees 07/05/2019 HE RADIANT 2:54 PM CONVERSION HEAD SCREEN WORKER R AXIS -5 degrees 07/05/2019 HE RADIANT 2:54 PM CONVERSION HEAD SCREEN WORKER T [facility] 27 degrees 07/05/2019 HE RADIANT 2:54 PM CONVERSION HEAD SCREEN WORKER Interpretation Normal sinus rhythm 07/05/2019 HE R ADIANT ECG Normal ECG 2:54 PM CONVERSION When compared with ECG of 08-AUG-2018 16:01, HEAD SCREEN WORKER No significant change was found Confirmed by DONALD ??, AGUS LOC: ([id number]) on 9 2:54:37 PM Specimen (Source) Anatomical Collection Method Collection Time Re ceived Time Location / / Volume Laterality 07/05/2019 07/05/2019 2:54 PM HEAD SCREEN WORKER Lm Kiser MD ECG ORDERABLES Performing Organization Address City/State/ZIP Code Phon e Number HE CARDIOLOGY CONVERSION HE RADIANT CONVERSION documented in this encounter Visit Diagnoses Diagnosis Permanent atrial fibrillation (H) Atrial fibrillation documented in this encounter Care Teams Couturiere Relationship Specialty Start Date End Date Elyse Paredes MD PCP - General Family Practice 12/22/13 04/21/22 1540 [place] [address] documented as of this encounter
--- OUTSIDE RECORDS SUMMARY | 2022-07-09 14:18 | XMS_ITS | Encounter Summary ---
:1950 Author Organization [place] Address [address] [place] [address] Care Team Providers Name Role Phone Elyse Paredes MD Primary Care Provider Encounter Details Date Type Department Care Team Description 06/14/2019 [facility] - [facility] [address] [phone] Social History Tobacco Use Types Packs/Day Years Used Date Smoking Tobacco: Never Assessed Sex Assigned at Date Recorded Not on file documented as of this encounter Plan of Treatment Not on filedocumented as of this encounter Procedures Procedure Name Priority Date/Time Associated Comments Diagnosis LIPID PROFILE Routine 06/14/2019 3:55 PM Results for this LICENSED LIFE AND HEALTH AGENT procedure are i n the results section. COMPREHENSIVE Routine 06/14/2019 3:55 PM Results for this METABOLIC PANEL LICENSED LIFE AND HEALTH AGENT procedure ar e in the results section. documented in this encounter Results (ABNORMAL) Lipid Profile (06/14/2019 3:55 PM LICENSED LIFE AND HEALTH AGENT) [facility] Time Signature Cholesterol 141 <=199 06/14/2019 HEALTH mg/dL 8:57 PM [facility] Triglycerides 113 <=149 06/14/2019 HEALTH mg/dL 8:57 PM [facility] Direct Measure HDL 48 (L) >=50 06/14/2019 [facility]ALTH mg/dL 8:57 PM [facility] LDL Cholesterol 70 <=129 06/14/2019 [facility] Calculated mg/dL 8:57 PM [facility] Patient Fasting > Yes 06/14/2019 HEALTH 8hrs? 8:57 PM [facility] Specimen Anatomical Collection Method / Collection Time Recei gil Time (Source) Location / Volume Laterality Blood specimen Venipuncture / 06/14/2019 3:55 06/14/20 19 8:15 (specimen) Unknown PM LICENSED LIFE AND HEALTH AGENT PM LICENSED LIFE AND HEALTH AGENT Elyse Paredes MD LAB - BLOOD ORDERABLES Performing Organization Address City/State/ZIP Code Phon [place] [address] [address] [facility] (ABNORMAL) Comprehensive metabolic panel (06/14/2019 3:55 PM LICENSED LIFE AND HEALTH AGENT) [facility] Method Time Signature Sodium 139 136 - 145 06/14/2019 HEALTH mmol/L 8:57 PM [facility] Potassium 4.3 3.5 - 5.0 06/14/2019 [facility] mmol/L 8:57 PM [facility] Chloride 101 98 - 107 06/14/2019 [facility] mmol/L 8:57 PM [facility] Carbon Dioxide 26 22 - 31 06/14/2019 HEALTH (CO2) mmol/L 8:57 PM [facility] Anion Gap 12 5 - 18 06/14/2019 [facility] mmol/L 8:57 PM [facility] Glucose 154 (H) 70 - 125 06/14/2019 [facility]ALTH mg/dL 8:57 PM [facility] Urea Nitrogen 27 (H) 8 - 22 06/14/2019 [facility] mg/dL 8:57 PM [facility] Creatinine 1.43 (H) 0.60 - 06/14/2019 HEALTH 1.10 8:57 PM [facility] mg/dL [facility] GFR Estimate If 44 (L) >60 06/14/2019 [facility] Black mL/min/1. 8:57 PM [facility]. [address] [facility] GFR Estimate 37 (L) >60 06/14/2019 HEALTH mL/min/1. 8:57 PM [facility]. [address] [facility] Bilirubin Total 1.0 0.0 - 1.0 06/14/2019 [facility] mg/dL 8:57 PM [facility] Calcium 9.7 8.5 - 06/14/2019 HEALTH 10.5 8:57 PM [facility]. mg/dL [facility] Protein Total 7.2 6.0 - 8.0 06/14/2019 [facility] g/dL 8:57 PM [facility] Albumin 3.7 3.5 - 5.0 06/14/2019 [facility] g/dL 8:57 PM [facility] Alkaline 68 45 - 120 06/14/2019 [facility] Phosphatase U/L 8:57 PM [facility] AST 29 0 - 40 06/14/2019 HEALTH U/L 8:57 PM [facility] ALT 25 0 - 45 06/14/2019 [facility] U/L 8:57 PM [facility] Specimen Anatomical Collection Method / Collection Time Recei gil Time (Source) Location / Volume Laterality Blood specimen Venipuncture / 06/14/2019 3:55 06/14/20 19 8:15 (specimen) Unknown PM LICENSED LIFE AND HEALTH AGENT PM LICENSED LIFE AND HEALTH AGENT Narrative [facility] - 06/14/2019 8:57 PM LICENSED LIFE AND HEALTH AGENT Fasting Glucose reference range is 70-99 mg/dL per [place] [employer] (ADA) charles martinez. Elyse Paredes MD LAB - BLOOD ORDERABLES Performing Organization Address City/State/ZIP Code [place] [id number] [place], [place] [address]S LABORATORY [facility] [address] [place] [address], [facility] documented in this encounter Visit Diagnoses Not on filedocumented in this encounter Care Teams Agile Tester Relationship Specialty Start Date End Date Reggie, Elyse Armas MD PCP - General Family Practice 12/22/13 04/21/22 [address] [place] [address] documented as of this encounter
--- OUTSIDE RECORDS SUMMARY | 2022-07-09 14:18 | XMS_ITS | Encounter Summary ---
:1950 Author Organization [place] Address [address] [place] [address]. [place] [address] Care Team Providers Name Role Phone Elyse Paredes MD Primary Care Provider Reason for Visit Reason Comments Medication Refill lorsartan, chlorthalidone Encounter Details Date Type Department Care Team Description 02/14/2020 Communication - [facility] Gabrielle Golden tion Refill [facility] Dora, RN (lorsartan, [place] chlorthalidone) [address] [facility] [address] [place] [address] Social History Tobacco Use Types Packs/Day Years Used Date Smoking Tobacco: Never Assessed Sex Assigned at Date Recorded Not on file documented as of this encounter Plan of Treatment Not on filedocumented as of this encounter Visit Diagnoses Diagnosis S/P TAVR (transcatheter aortic valve rep lacement) Benign essential hypertension Essential hypertension, benign documented in this encounter Care Teams Senior Backup Administrator Relationship Specialty Start Date End Date Elyse Paredes MD PCP - General Family Practice 12/22/13 04/21/22 1540 [place] [address] documented as of this encounter
--- OUTSIDE RECORDS SUMMARY | 2022-07-09 14:18 | XMS_ITS | Encounter Summary ---
:1950 Author Organization [place] Address [address] [place] [address] Care Team Providers Name Role Phone Elyse Paredes MD Primary Care Provider Reason for Visit Reason Comments Follow Up Encounter Details Date Type Department Care Team Description 12/29/2019 Office Visit - [facility] Dagmar Kang, Coronar y artery disease involving [place] coronary artery of [place] heart, angina presence unspecified; [facility] MD S/P TAVR (transcatheter aortic valve rep lacement); [place] [address] Paroxysmal atrial fibrillati on (H); [address] [facility], Essential hype rtension; [place] [address] [place] [address] [phone] Social History Tobacco Use Types Packs/Day Years [...] 1:45 PM Encounter Date: 12/29/2019 Status: Signed Vaccine Specialist: Dagmar Kang MD (Physician) The patient has [...] been obtained for this service by care preanalytics team lead: HEART CARE PHONE ENCOUNTER The patient has [...] Procedure: COLONOSCOPY; Surgeon: Jeni Barrera MD; Location: [facility] OR; Service: Gastroenterology ? COLONOSCOPY N/A 10/10/2019 Procedure: COLONOSCOPY; Surgeon: Falguni Mccain MD; Location: [facility] OR; Service: Gastroenterology ? CV CORONARY ANGIOGRAM N/A 05/12/2017 Procedure: Coronary Angiogram; Surgeon: Ankush Martinez MD; Location: [facility] Draw Off Worker; Service: ? CV TRANSFEMORAL TRANSCATHETER VALVE REPLACEMENT N/A 07/06/2017 Procedure: Transfemoral Transcatheter Aortic Valve Replacement; Surgeon: Ankush Martinez MD; Location: [facility] Draw Off Worker; Service: ? TOTAL KNEE ARTHROPLASTY Bilateral Family [...] Visit Diagnoses Diagnosis Coronary artery disease involving [place] coronary artery of [place] heart, angina presence unspecified S/P TAVR (transcatheter aortic valve rep lacement) Paroxysmal atrial fibrillation (H) Atrial fibrillation Essential hypertension Unspecified essential hypertension Mixed hyperlipidemia documented in this encounter Care Teams Picture Frame Maker Relationship Specialty Start Date End Date Elyse Paredes MD PCP - General Family Practice 12/22/13 04/21/22 1540 [place] [address] documented as of this encounter
--- OUTSIDE RECORDS SUMMARY | 2022-07-09 14:18 | XMS_ITS | Encounter Summary ---
:1950 Author Organization [place] Address [address] [place] [address] Care Team Providers Name Role Phone Elyse Paredes MD Primary Care Provider Reason for Visit Reason Comments Medication Question Warfarin hold orders Encounter Details Date Type Department Care Team Description 06/15/2019 Communication - [facility] Philippe, Medicat ion Question [facility] Heart [facility] PAYTON Hickey (Warfarin hold [place] orders) [address] [facility] [address] [place] [phone] Social History Tobacco Use Types Packs/Day Years Used Date Smoking Tobacco: Never Assessed Sex Assigned at Date Recorded Not on file documented as of this encounter Miscellaneous Notes Telephone Encounter - Edelmira Paez - 06/16/2019 8:19 AM CST Left detailed message for Kiarra informing her of Dr. Kang's response/recommendations - requested call back with any further questions/concerns. mg L MAIL CONTRACTOR Telephone Encounter - Dagmar Kang MD - 06/15/2019 5:38 PM CST Okay to come off warfarin 5 days ahead of her procedure. She does not need any bridging. She should restart her warfarin the night of her colonoscopy. Dagmar Kang L MAIL CONTRACTOR Telephone Encounter - Edelmira Paez - 06/15/2019 12:58 PM CST Please address PCP clinic request for approval to hold Warfarin for colonoscopy. mg L MAIL CONTRACTOR Telephone Encounter - Edelmira Paez - 06/15/2019 12:57 PM CST ----- Message from Evelio Handy sent at 06/15/2019 11:09 AM RURAL MAIL CONTRACTOR ----- Regarding: hold/bridge orders - upcoming colonoscopy General phone call: Caller: PCP office Primary industrial seamstress: Dr Kang Detailed reason for call: Calling from [facility] - Dr Torres office (PCP) : Pt has colonoscopy - will need to hold coumadin (5 days)- asking if this is ok - Bridge/Hold orders ---Kiarra -healthcare specialist # [phone] New or active symptoms? na Best phone number: above Best time to contact: any Ok to leave a detailed message? na Device? no Additional Info: L MAIL CONTRACTOR documented in this encounter Plan of Treatment Not on filedocumented as of this encounter Visit Diagnoses Not on filedocumented in this encounter Care Teams Manager Field Service Relationship Specialty Start Date End Date Elyse Paredes MD PCP - General Family Practice 12/22/13 04/21/22 [address] [place] [address] documented as of this encounter
--- OUTSIDE RECORDS SUMMARY | 2022-07-09 14:19 | XMS_ITS | Encounter Summary ---
:1950 Author Organization [place] Address [address] [place] [address] Care Team Providers Name Role Phone Elyse Paredes MD Primary Care Provider Encounter Details Date Type Department Care Team Description 10/10/2018 Ambulatory - [facility] S/P coronary artery [facility] [address] [place] [phone] Social History Tobacco Use Types Packs/Day Years [...] BY 226 (H) 70 - 139 10/10/2018 [facility] METER POCT mg/dL 11:04 AM CDT HOSPITAL POCT RESULTS Specimen Anatomical Collection Method Collection Time Receive d Time (Source) Location / / Volume Laterality Blood specimen CAPILLARY BLOOD / 10/10/2018 11:04 09/30 7:59 (specimen) Unknown AM CDT AM CDT Historical Provider LAB - ENTER/EDIT POCT Performing Organization Address City/State/ZIP Code Phon e Number [facility] POCT RESULTS [address] [place] [address] documented in this encounter Visit Diagnoses Diagnosis S/P coronary artery stent placement Postsurgical percutaneous transluminal c oronary angioplasty status documented in this encounter Care Teams Medical Radiation Therapist Relationship Specialty Start Date End Date Elyse Paredes MD PCP - General Family Practice 12/22/13 04/21/22 [address] [place] [address] documented as of this encounter
--- OUTSIDE RECORDS SUMMARY | 2022-07-09 14:19 | XMS_ITS | Encounter Summary ---
:1950 Author Organization [place] Address [address] [place] [address] Care Team Providers Name Role Phone Elyse Paredes MD Primary Care Provider Encounter Details Date Type Department Care Team Description 10/10/2018 Ambulatory - [facility] S/P TAVR [facility] Heart [facility] St. Perezu dorota (transcatheter aortic [address] valve replacement) [place] [address] Social History Tobacco Use Types [...] lacement) documented in this encounter Care Teams Patient Appointment Coordinator Relationship Specialty Start Date End Date Elyse Paredes MD PCP - General Family Practice 12/22/13 04/21/22 [address] [address] documented as of this encounter
--- OUTSIDE RECORDS SUMMARY | 2022-07-09 14:19 | XMS_ITS | Encounter Summary ---
:1950 Author Organization [place] Address [address] [place] [address]. [place] [address] Care Team Providers Name Role Phone Elyse Paredes MD Primary Care Provider Reason for Visit Reason Comments Appointment Anticoagulation Encounter Details Date Type Department Care Team Description 01/06/2019 Communication - [facility] Gayathri, Appoint ment; [facility] Anticoagulation Clin ic PAYTON Thompson Anticoagulation [address] [place] [phone] Social History Tobacco Use Types Packs/Day [...] have her PCP Dr Elyse Paredes with [facility] manageranticoagulation. Donna Trinh RN documented in this encounter Plan of Treatment Not on filedocumented as of this encounter Visit Diagnoses Diagnosis Persistent atrial fibrillation (H) Atrial fibrillation S/P TAVR (transcatheter aortic valve rep lacement) documented in this encounter Care Teams Radio Program Checker Relationship Specialty Start Date End Date Elyse Paredes MD PCP - General Family Practice 12/22/13 04/21/22 [address] [place], [place] [id number] documented as of this encounter
--- OUTSIDE RECORDS SUMMARY | 2022-07-09 14:19 | XMS_ITS | Encounter Summary ---
:1950 Author Organization [place] Address [address] [place] [address]. [place] [address] Care Team Providers Name Role Phone Dagmar Kang MD Unavailable Elyse Paredes MD Primary Care Provider Encounter Details Date Type Department Care Team Description 01/11/2019 Records - [facility] CONVERSION Provider, Karthik raya Social History Tobacco Use Types Packs/Day Years Used Date Smoking Tobacco: Never Assessed Sex Assigned at Date Recorded Not on file documented as of this encounter Plan of Treatment Not on filedocumented as of this encounter Visit Diagnoses Not on filedocumented in this encounter Care Teams Deblocker Relationship Specialty Start Date End Date Elyse Paredes MD PCP - General Family Practice 12/22/13 04/21/22 [address] [place] [address] Dagmar Kang MD Assigned Heart and 02/14/21 02/27/22 [address] [facility] [address], Vascular Provider [address] [place] [address] documented as of this encounter
--- OUTSIDE RECORDS SUMMARY | 2022-07-09 14:19 | XMS_ITS | Encounter Summary ---
:1950 Author Organization [place] Address [address] [place] [address]. [place] [address] Care Team Providers Name Role Phone Elyse Paredes MD Primary Care Provider Encounter Details Date Type Department Care Team Description 01/11/2019 Ambulatory - [facility] [address] [phone] Social History Tobacco Use [...] on filedocumented in this encounter Care Teams Car Storer Relationship Specialty Start Date End Date Elyse Paredes MD PCP - General Family Practice 12/22/13 04/21/22 [address] [place], [place] [id number] documented as of this encounter
--- OUTSIDE RECORDS SUMMARY | 2022-07-09 14:19 | XMS_ITS | Encounter Summary ---
:1950 Author Organization [place] Address [address] [place] [address] Care Team Providers Name Role Phone Elyse Paredes MD Primary Care Provider Reason for Visit Reason Comments Other hold orders for GI procedure ; no schedule but will do soon. Encounter Details Date Type Department Care Team Description 10/26/2018 Communication - [facility] Gabrielle Golden (hold orders [facility] , RN for GI procedur e; [facility] sc... [address] [facility] [address] [place] [address] Social History Tobacco Use Types [...] 3:41 PM Encounter Date: 10/26/2018 Status: Signed Clay Caster: Gabrielle Golden RN (Registered Nurse) hold orders for GI procedure (no schedule but will do soon. ) Nicole Salazar CNP ??You 4 minutes ago (3:35 PM) Ok. ??No bridging. Roland Routing Comment You ??Hommerding, Nicole A., TEARER 36 minutes ago (3:03 PM) Pt going for GI procedure. Concerns about stopping Warfarin for 4 days? Routing Telephone Encounter - Gabrielle Golden - 10/26/2018 3:00 PM CDT Pt going for GI procedure in the near future. stardard hold for Warfarin 4 days. Will notify Roland Salazar SAUSAGE LINKER about procedure. Retest INR 1 week after restart. documented in this encounter Plan of Treatment Not on filedocumented as of this encounter Visit Diagnoses Not on filedocumented in this encounter Care Teams Risk Control Representative Relationship Specialty Start Date End Date Elyse Paredes MD PCP - General Family Practice 12/22/13 04/21/22 15[address] [place] [address] documented as of this encounter
--- OUTSIDE RECORDS SUMMARY | 2022-07-09 14:19 | XMS_ITS | Encounter Summary ---
:1950 Author Organization [place] Address [address] [place] [address] Care Team Providers Name Role Phone Elyse Paredes MD Primary Care Provider Reason for Visit Reason Onset Date Comments Medication Question 10/21/2018 Warfarin Encounter Details Date Type Department Care Team Description 10/21/2018 Telephone [facility] Endocrinolo Gabrielle West Medication Question [address] [facility] LILIA Cartwright (Warfarin) 3rd Floor [address] [place], [place] [address] [place], [place] [phone] (Wo rk) Social History Tobacco Use Types Packs/Day Years Used Date Smoking Tobacco: Never Assessed Sex Assigned at Date Recorded Not on file documented as of this encounter Miscellaneous Notes Telephone Encounter - Kenneth Guerra - 10/21/2018 2:41 PM CDT [facility] Call Center Phone Message May a detailed message be left on voicemail: yes Reason for Call: Other: [place] [facility] calling in regards to PT. They state that PT sees Gabrielle Golden, but there is nothing in this chart, and I was unable to find another chart with this information. They are looking for information on PT's Warfarin. Please follow up with [place] [facility] as soon as possible at [phone]. Action Taken: Message routed to: [facility] Endo documented in this encounter Plan of Treatment Not on filedocumented as of this encounter Visit Diagnoses Not on filedocumented in this encounter Care Teams Hair Weaver Relationship Specialty Start Date End Date Elyse Paredes MD PCP - General Family Practice 12/22/13 04/21/22 [address] [place] [address] documented as of this encounter
--- OUTSIDE RECORDS SUMMARY | 2022-07-09 14:19 | XMS_ITS | Encounter Summary ---
:1950 Author Organization [place] Address [address] [place] [address] Care Team Providers Name Role Phone Elyse Paredes MD Primary Care Provider Reason for Visit Reason Comments Appointment Diabetes Education Encounter Details Date Type Department Care Team Description [facility]/06[facility] PAYTON Lombardi (Diabete s Education Patient Access ) [address] [place] [phone] Social History Tobacco Use Types Packs/Day Years Used Date Smoking Tobacco: Never Assessed Sex Assigned at Date Recorded Not on file documented as of this encounter Miscellaneous Notes Telephone Encounter - [place] Provider - 12/08/2018 11:39 AM CDT I requested labs and office notes from [facility]. Shayy gave her direct number stephan we are inneeds of something else. [phone] Telephone Encounter - Zuly Kam - 12/06/2018 7:42 AM CDT Referral received w/no records on 12.05.2018 @ 5:02 Please call [facility] to obtain records before contact the patient to schedule [facility] @ [phone] documented in this encounter Plan of Treatment Not on filedocumented as of this encounter Visit Diagnoses Not on filedocumented in this encounter Care Teams Forensic Sergeant Relationship Specialty Start Date End Date Elyse Paredes MD PCP - General Family Practice 12/22/13 04/21/22 [address] [place] [address] documented as of this encounter
--- OUTSIDE RECORDS SUMMARY | 2022-07-09 14:19 | XMS_ITS | Encounter Summary ---
:1950 Author Organization [place] Address [address] [place] [address]. [place] [address] Care Team Providers Name Role Phone Dagmar [...] filedocumented in this encounter Care Teams Warehouse Supervisor Relationship Specialty Start Date End Date Elyse Paredes MD PCP - General Family Practice 12/22/13 04/21/22 15[address] [place] [address] Dagmar Kang MD Assigned Heart and 02/14/21 02/27/[address] [facility] [address], Vascular Provider [address] [place] [address] documented as of this encounter
--- OUTSIDE RECORDS SUMMARY | 2022-07-09 14:19 | XMS_ITS | Encounter Summary ---
:1950 Author Organization [place] Address [address] [place] [address] Care Team Providers Name Role Phone Elyse Paredes MD Primary Care Provider Reason for Visit Reason Comments Consult Encounter Details Date Type Department Care Team Description 01/18/2019 Office Visit - [facility] Dagmar Kang Paroxys mal atrial fibrillation (H); [facility] Coronary artery disease involving [place] coronary artery of [place] heart, angina presence unspecified; [address] S/P TAVR (transcatheter aort ic valve replacement) [phone] [place], [place] [phone] [address] Social History Tobacco Use Types Packs/Day Years [...] 5:23 PM Encounter Date: 01/18/2019 Status: Signed Manager Medical Affairs: Dagmar Kang MD (Physician) Click to link to [facility] Heart [facility] HEART CARE NOTE Thank you, Dr. Paredes, for asking the [facility] Heart Care team to see Ms. [...] Coronary Angiogram; Surgeon: Ankush Martinez MD; Location: [facility] White Work Cleaner; Service: ? CV TRANSFEMORAL TRANSCATHETER VALVE REPLACEMENT N/A 07/06/2017 Procedure: Transfemoral Transcatheter Aortic Valve Replacement; Surgeon: Ankush Martinez MD; Location: [facility] White Work Cleaner; Service: ? TOTAL KNEE ARTHROPLASTY Bilateral Family [...] file Gets together: Not on file Attends yazdanism service: Not on file Active member of [...] (H) Atrial fibrillation Coronary artery disease involving [place] coronary artery of [place] heart, angina presence unspecified S/P TAVR (transcatheter aortic valve rep lacement) documented in this encounter Care Teams Technical Maintenance Specialist Relationship Specialty Start Date End Date Elyse Paredes MD PCP - General Family Practice 12/22/13 04/21/22 [address] [place] [address] documented as of this encounter
--- OUTSIDE RECORDS SUMMARY | 2022-07-09 14:19 | XMS_ITS | Encounter Summary ---
:1950 Author Organization [place] Address [address] [place] [address] Care Team Providers Name Role Phone Elyse Paredes MD Primary Care Provider Encounter Details Date Type Department Care Team Description 10/31/2018 Ambulatory - [facility] S/P coronary artery [facility] [address] [place] [phone] Social History Tobacco Use Types Packs/Day Years [...] BY 181 (H) 70 - 139 10/31/2018 [facility] METER POCT mg/dL 11:07 AM CDT HOSPITAL POCT RESULTS Specimen Anatomical Collection Method Collection Time Receive d Time (Source) Location / / Volume Laterality Blood specimen CAPILLARY BLOOD / 10/31/2018 11:07 04/0 09/2018 9:09 (specimen) Unknown AM CDT AM CDT Historical Provider LAB - ENTER/EDIT POCT Performing Organization Address City/State/ZIP Code Phon e Number [facility] POCT RESULTS [address] [place] [address] documented in this encounter Visit Diagnoses Diagnosis S/P coronary artery stent placement Postsurgical percutaneous transluminal c oronary angioplasty status documented in this encounter Care Teams Lumber Straightener Relationship Specialty Start Date End Date Elyse Paredes MD PCP - General Family Practice 12/22/13 04/21/22 [address] [place] [address] documented as of this encounter
--- OUTSIDE RECORDS SUMMARY | 2022-07-09 14:19 | XMS_ITS | Encounter Summary ---
:1950 Author Organization [place] Address [address] [place] [address] Care Team Providers Name Role Phone Elyse Paredes MD Primary Care Provider Encounter Details Date Type Department Care Team Description 10/24/2018 Ambulatory - [facility] S/P TAVR [facility] Heart [facility] Perezu dorota (transcatheter aortic [address] valve replacement) [place] [address] Social [...] lacement) documented in this encounter Care Teams Scale Shooter Relationship Specialty Start Date End Date Elyse Paredes MD PCP - General Family Practice 12/22/13 04/21/22 [address] [place] [address] documented as of this encounter
--- OUTSIDE RECORDS SUMMARY | 2022-07-09 14:19 | XMS_ITS | Encounter Summary ---
:1950 Author Organization [place] Address [address] [place] [address] Care Team Providers Name Role Phone Elyse Paredes MD Primary Care Provider Reason for Visit Reason Comments Referral Encounter Details Date Type Department Care Team Description 12/09/2018 [facility] Elyse Paredes MD [address] [place] [address] Referral [facility] Medical Specialties Provider, Historical Patient Access [address] [place] [phone] Social History Tobacco Use Types Packs/Day Years Used Date Smoking Tobacco: Never Assessed Sex Assigned at Date Recorded Not on file documented as of this encounter Miscellaneous Notes Telephone Encounter - Historical Provider - 12/16/2018 9:48 AM CDT Per patient she received training at [facility]. Telephone Encounter - Historical Provider - 12/14/2018 9:45 AM CDT LMTCB x2 Telephone Encounter - Historical Provider - 12/12/2018 10:50 AM CDT LMTCB x1 Telephone Encounter - Historical Provider - 12/09/2018 2:20 PM CDT External - [facility] - [phone] Referring Provider: Elyse Paredes DX: Dm Type 2 uncontrolled Ref./rec. Were received on... 12.09 @ 11:42am & 12.05 @ 5:01pm (inside Diabetes Consult Fax Folder) Records printed and sent to scan. documented in this encounter Plan of Treatment Not on filedocumented as of this encounter Visit Diagnoses Not on filedocumented in this encounter Care Teams Fitness And Wellness Manager Relationship Specialty Start Date End Date Elyse Paredes MD PCP - General Family Practice 12/22/13 04/21/22 [address] [address] documented as of this encounter
--- OUTSIDE RECORDS SUMMARY | 2022-07-09 14:19 | XMS_ITS | Encounter Summary ---
:1950 Author Organization [place] Address [address] [place] [address] Care Team Providers Name Role Phone Elyse Paredes MD Primary Care Provider Encounter Details Date Type Department Care Team Description 09/26/2018 Ambulatory - [facility] S/P TAVR [facility] Heart [facility] St. Perezu dorota (transcatheter aortic [address] valve replacement) [place] [address] Social History Tobacco Use Types [...] coming procedures. Cautioned about using Herbal medication. THERAPIST documented in this encounter Miscellaneous Notes Patient Instructions - HE - Gabrielle Golden RN - 09/26/2018 11:15 AM DIET THERAPIST INR 1.8 Continue current management dosing of Warfarin. Continue diet of moderate Vitamin K intake. Discussed with pt the need to call with questions or concerns or any change in medication especially herbal medication or OTC. Call with increased bleeding or bruising or any upcoming procedures. Has held for several days. THERAPIST documented in this encounter Plan of Treatment [...] lacement) documented in this encounter Care Teams Storage Solutions Architect Relationship Specialty Start Date End Date Elyse Paredes MD PCP - General Family Practice 12/22/13 04/21/22 [address] [place] [address] documented as of this encounter
--- OUTSIDE RECORDS SUMMARY | 2022-07-09 14:19 | XMS_ITS | Encounter Summary ---
:1950 Author Organization [place] Address [address] [place] [address] Care Team Providers Name Role Phone Elyse Paredes MD Primary Care Provider Reason for Visit Reason Comments Anticoagulation [facility] Referral Encounter Details Date Type Department Care Team Description 01/06/2019 Communication - [facility] Joo Trinh ([facility] Anticoagulation Clin ic PAYTON Thompsonmachine tech) [address] [place] [address] Social History Tobacco Use Types Packs/Day Years Used Date Smoking Tobacco: Never Assessed Sex Assigned at Date Recorded Not on file documented as of this encounter Miscellaneous Notes Telephone Encounter - Donna Trinh RN - 01/06/2019 5:02 PM CDT Anticoagulation Transition of Care Marci Diaz was referred to transition management to [facility]. Warfarin indication: Atrial Fibrillation Current [...] lacement) documented in this encounter Care Teams Boom Master Relationship Specialty Start Date End Date Elyse Paredes MD PCP - General Family Practice 12/22/13 04/21/22 [address] [place] [address] documented as of this encounter
--- OUTSIDE RECORDS SUMMARY | 2022-07-09 14:19 | XMS_ITS | Encounter Summary ---
:1950 Author Organization [place] Address [address] [place] [address]. [place] [address] Care Team Providers Name Role Phone Elyse Paredes MD Primary Care Provider Reason for Visit Reason Onset Date Comments Erroneous encounter-disregard 10/18/2018 Error Encounter Details Date Type Department Care Team Description 10/18/2018 Telephone [facility] Endocrinolo Gabrielle West Erroneous [address] [facility] [address] LILIA Cartwright encounter-disregard [address]rd [address] [place] [address] (Error) [place], [place] [address] [place], [place] [phone] (Wo rk) Social History Tobacco Use Types Packs/Day Years Used Date Smoking Tobacco: Never Assessed Sex Assigned at Date Recorded Not on file documented as of this encounter Plan of Treatment Not on filedocumented as of this encounter Visit Diagnoses Not on filedocumented in this encounter Care Teams E Tailer Relationship Specialty Start Date End Date Elyse Paredes MD PCP - General Family Practice 12/22/13 04/21/22 [address] [place] [address] documented as of this encounter
--- OUTSIDE RECORDS SUMMARY | 2022-07-09 14:19 | XMS_ITS | Encounter Summary ---
:1950 Author Organization [place] Address [address] [place] [address] Care Team Providers Name Role Phone Elyse Paredes MD Primary Care Provider Encounter Details Date Type Department Care Team Description 11/21/2018 Ambulatory - [facility] S/P TAVR [facility] St. Perezu dorota (transcatheter aortic [address] valve replacement) [place] [address] Social History Tobacco Use Types [...] lacement) documented in this encounter Care Teams Pick And Shovel Worker Relationship Specialty Start Date End Date Elyse Pardees MD PCP - General Family Practice 12/22/13 04/21/22 15[address] [place] [address] documented as of this encounter
--- OUTSIDE RECORDS SUMMARY | 2022-07-09 14:20 | XMS_ITS | Encounter Summary ---
:1950 Author Organization [place] Address [address] [place] [address]. [place] [address] Care Team Providers Name Role Phone Elyse Paredes MD Primary Care Provider Encounter Details Date Type Department Care Team Description 09/01/2018 Records - [facility] [address] [address] [phone] Social History Tobacco Use Types Packs/Day Years Used Date Smoking Tobacco: Never Assessed Sex Assigned at Date Recorded Not on file documented as of this encounter Plan of Treatment Not on filedocumented as of this encounter Procedures Procedure Name Priority Date/Time Associated Diagnosis Comme nts BASIC METABOLIC Routine 09/01/2018 9:36 AM Result s for this PANEL ANTISQUEAK FILLER procedure are i n the results section. documented in this encounter Results (ABNORMAL) Basic metabolic panel (09/01/2018 9:36 AM ANTISQUEAK FILLER) [facility] Method Time Signature Sodium 140 136 - 145 09/01/[address] [facility] mmol/L 7:27 PM [facility] Potassium 4.3 3.5 - 5.0 09/01/2018 [facility] mmol/L 7:27 PM [facility] Chloride 102 98 - 107 09/01/[address] [facility] mmol/L 7:27 PM [facility] Carbon Dioxide 29 22 - 31 09/01/2018 [facility] (CO2) mmol/L 7:27 PM [facility] Anion Gap 9 5 - 18 09/01/2018 [facility] mmol/L 7:27 PM [facility] Glucose 179 (H) 70 - 125 09/01/2018 [facility] mg/dL 7:27 PM [facility] Calcium 9.8 8.5 - 10.5 09/01/2018 [facility] mg/dL 7:27 PM [facility] Urea Nitrogen 25 (H) 8 - 22 09/01/2018 [facility] mg/dL 7:27 PM [facility] Creatinine 1.32 (H) 0.60 - 09/01/2018 [facility] 1.10 mg/dL 7:27 PM [facility] GFR Estimate If 49 (L) >60 09/01/2018 [facility] Black mL/min/1.7 7:[address] [facility] GFR Estimate 40 (L) >60 09/01/2018 [facility] mL/min/1.7 7:[address] [facility] Specimen Anatomical Collection Method Collection Time Receive d Time (Source) Location / / Volume Laterality Blood specimen 09/01/2018 9:36 AM 019 6:57 (specimen) ANTISQUEAK FILLER PM ANTISQUEAK FILLER Narrative O LAB - 09/01/2018 7:27 PM ANTISQUEAK FILLER Fasting Glucose reference range is 70-99 mg/dL per [place] Diabetes [employer] (ADA) charles martinez. Elyse Paredes MD LAB - BLOOD ORDERABLES Performing Organization Address City/State/ZIP Code Phon e Number [place] [id number] [place] [address] LABORATORY O LAB [address] [place] [id number], [facility] documented in this encounter Visit Diagnoses Not on filedocumented in this encounter Care Teams Grinder And Honer Operator Automatic Relationship Specialty Start Date End Date Elyse Paredes MD PCP - General Family Practice 12/22/13 04/21/22 [address] [address] documented as of this encounter
--- OUTSIDE RECORDS SUMMARY | 2022-07-09 14:20 | XMS_ITS | Encounter Summary ---
:1950 Author Organization [place] Address [address] [place] [address] Care Team Providers Name Role Phone Elyse Paredes MD Primary Care Provider Encounter Details Date Type Department Care Team Description 08/08/2018 Ambulatory - [facility] S/P TAVR [facility] Heart [facility] Debby dorota (transcatheter aortic [address] valve replacement) [place] [address] Social History Tobacco Use Types [...] coming procedures. Cautioned about using Herbal medication. ERCIAL LENDER documented in this encounter Miscellaneous Notes Patient Instructions - HE - Gabrielle Golden, RN - 08/08/2018 3:30 PM COMMERCIAL LENDER Check med box. Call pr [phone]. ERCIAL LENDER documented in this encounter Plan of Treatment [...] lacement) documented in this encounter Care Teams Pyrotechnist Relationship Specialty Start Date End Date Elyse Paredes MD PCP - General Family Practice 12/22/13 04/21/22 15[address] [place] [address] documented as of this encounter
--- OUTSIDE RECORDS SUMMARY | 2022-07-09 14:20 | XMS_ITS | Encounter Summary ---
:1950 Author Organization [place] Address [address] [place] [address] Care Team Providers Name Role Phone Elyse Paredes MD Primary Care Provider Reason for Visit Reason Comments Follow Up Encounter Details Date Type Department Care Team Description 08/08/2018 Office Visit - [facility] Swapna S/Alberto TAVR [facility] Chidi MD (transcatheter [place] [address] [facility] aortic valve [address] [facility] [address] replacement) [place] [address] [phone] Social History Tobacco Use Types Packs/Day Years [...] 130.6 kg (288 lb) 08/08/2018 3:50 PM APPEALS ANALYST Height 160 cm (5' 3) 08/08/2018 3:50 PM APPEALS ANALYST Body Mass Index 51.02 08/08/2018 3:50 PM APPEALS ANALYST documented in this encounter Progress Notes Chidi Barcenas MD - 08/08/2018 3:50 PM CST [facility] Note Assessment: Marci Diaz is [...] she is open to it CHIDI BARCENAS [facility] [phone] Subjective: CC: F/u I had the opportunity to see Marci Diaz at the [facility]. Marci Diaz is a [...] on exertion) ??? Coronary artery disease involving manzanita coronary artery of manzanita heart, angina presence unspecified ??? DEDE on [...] Coronary Angiogram; Surgeon: Ankush Martinez MD; Location: [facility] Gynecological Assistant; Service: ??? CV TRANSFEMORAL TRANSCATHETER VALVE REPLACEMENT N/A 07/06/2017 Procedure: Transfemoral Transcatheter Aortic Valve Replacement; Surgeon: Ankush Martinez MD; Location: [facility] Gynecological Assistant; Service: ??? TOTAL KNEE ARTHROPLASTY Bilateral Social [...] 102 05/19/2018 CO2 26 05/19/2018 CHIDI BARCENAS [facility] ALS ANALYST documented in this encounter Miscellaneous Notes Patient Instructions - HE - Chidi Barcenas MD - 08/08/2018 3:50 PM APPEALS ANALYST Please, stop taking: Amiodarone, clopidogrel Start taking: Aspirin 81 mg daily, Metoprolol, chlorthalidone may need to further adjust your doses Once breast cancer is addressed, let's consider Watchman left atrial appendage closure device, in order to potentially get you off warfarin ALS ANALYST documented in this encounter Plan of Treatment Not on filedocumented as of this encounter Procedures Procedure Name Priority Date/Time Associated Diagnosis Comme nts ECG 12-LEAD WITH Routine 08/08/2018 3:44 PM Resul ts for this MUSE ? APPEALS ANALYST procedure are in [facility] the results section. documented in this encounter Results ECG 12-LEAD WITH MUSE (LHE) (08/08/2018 3:44 PM APPEALS ANALYST) [facility] Method Time Signature Systolic Blood mmHg 08/10/2018 HE RADIANT Pressure 5:59 PM APPEALS ANALYST CONVERSION Diastolic Blood mmHg 08/10/2018 HE RADIANT Pressure 5:59 PM APPEALS ANALYST CONVERSION Ventricular Rate 84 BPM 08/10/2018 HE RADIANT 5:59 PM APPEALS ANALYST CONVERSION Atrial Rate 84 BPM 08/10/2018 HE RADIANT 5:59 PM APPEALS ANALYST CONVERSION [place] Interval 134 ms 08/10/2018 HE RADIANT 5:59 PM APPEALS ANALYST CONVERSION QRS Duration 90 ms 08/10/2018 HE RADIANT 5:59 PM APPEALS ANALYST CONVERSION QT 382 ms 08/10/2018 HE RADIANT 5:59 PM APPEALS ANALYST CONVERSION QTc 451 ms 08/10/2018 HE RADIANT 5:59 PM APPEALS ANALYST CONVERSION P [place] 5 degrees 08/10/2018 HE RADIANT 5:59 PM APPEALS ANALYST CONVERSION R AXIS -7 degrees 08/10/2018 HE RADIANT 5:59 PM APPEALS ANALYST CONVERSION T [place] 38 degrees 08/10/2018 HE RADIANT 5:59 PM APPEALS ANALYST CONVERSION Interpretation Sinus rhythm 08/10/2018 HE RADIANT ECG Normal ECG 5:59 PM APPEALS ANALYST CONVERSION When compared with ECG of 27-SEP-2017 11:24, Premature atrial complexes are no longer Present Confirmed by MOIZ ??SAMANTHA CLEMENTS LOC:JN ([id number]) on 08/10/2018 5:59:41 PM Specimen Anatomical Collection Method Collection Time Receive d Time (Source) Location / / Volume Laterality 08/08/2018 3:44 PM 9 5:59 APPEALS ANALYST PM APPEALS ANALYST Ashley Anderson PA-C ECG ORDERABLES Performing Organization Address City/State/ZIP Code Phon e Number HE CARDIOLOGY CONVERSION HE RADIANT CONVERSION documented in this encounter Visit Diagnoses Diagnosis S/P TAVR (transcatheter aortic valve rep lacement) documented in this encounter Care Teams Front Desk Officer Relationship Specialty Start Date End Date Elyse Paredes MD PCP - General Family Practice 12/22/13 04/21/22 [address] [place] [address] documented as of this encounter
--- OUTSIDE RECORDS SUMMARY | 2022-07-09 14:20 | XMS_ITS | Encounter Summary ---
:1950 Author Organization [place] Address [address] [place] [address]. [place] [address] Care Team Providers Name Role Phone Elyse Paredes MD Primary Care Provider Encounter Details Date Type Department Care Team Description 08/05/2018 Records - [facility] Provider, Histo rical External Imaging [facility] [place] [address] Social History Tobacco Use Types Packs/Day Years Used Date Smoking Tobacco: Never Assessed Sex Assigned at Date Recorded Not on file documented as of this encounter Plan of Treatment Not on filedocumented as of this encounter Procedures Procedure Name Priority Date/Time Associated Diagnosis Comme nts US EXTERNAL IMAGING Routine 07/28/2018 2:06 PM Re sults for this BREAST TIRE RECAPPING MACHINE OPERATOR procedure are i n the results section. documented in this encounter Results US External Imaging Breast (07/28/2018 2:06 PM TIRE RECAPPING MACHINE OPERATOR) Anatomical Region Laterality Modality Other Specimen (Source) Anatomical Location Collection Method / Collectio n Time Received Time / Laterality Volume Narrative 08/05/2018 2:06 PM TIRE RECAPPING MACHINE OPERATOR Please see PACS Hyperlink for images and scanned result text. Procedure Note Provider, Historical - 01/08/2021Formatt ing of this note might be different from the original. Please see PACS Hyperlink for images and scanned result text. Historical Provider IMG EXTERNAL IMAGING ORDERAB LES documented in this encounter Visit Diagnoses Not on filedocumented in this encounter Care Teams Marshmallow Machine Operator Relationship Specialty Start Date End Date Elyse Paredes MD PCP - General Family Practice 12/22/13 04/21/22 [address]40 [place] [address] documented as of this encounter
--- OUTSIDE RECORDS SUMMARY | 2022-07-09 14:20 | XMS_ITS | Encounter Summary ---
:1950 Author Organization [place] Address [address] [place] [address] Care Team Providers Name Role Phone Elyse Paredes MD Primary Care Provider Encounter Details Date Type Department Care Team Description 09/01/2018 [facility] CONVERSION Provider, Karthik raya Social History Tobacco Use Types Packs/Day Years Used Date Smoking Tobacco: Never Assessed Sex Assigned at Date Recorded Not on file documented as of this encounter Plan of Treatment Not on filedocumented as of this encounter Visit Diagnoses Not on filedocumented in this encounter Care Teams Lamp Shade Maker Relationship Specialty Start Date End Date Elyse Paredes MD PCP - General Family Practice 12/22/13 04/21/22 [address] [place] [address] documented as of this encounter
--- OUTSIDE RECORDS SUMMARY | 2022-07-09 14:20 | XMS_ITS | Encounter Summary ---
:1950 Author Organization [place] Address [address] [place] [address] Care Team Providers Name Role Phone Dagmar Kang MD Unavailable Elyse Paredes MD Primary Care Provider Dagmar Kang MD Unavailable Raghu Bae MD Primary Care Provider [phone] Nicole Salazar APRN OCCUPANCY SPECIALIST Unavailable [phone] Encounter Details Date Type Department Care Team Description 08/09/2018 Records - [facility] CONVERSION Scan, Non-Provider Social History Tobacco Use Types Packs/Day Years Used Date Smoking Tobacco: Never Assessed Sex Assigned at Date Recorded Not on file documented as of this encounter Plan of Treatment Not on filedocumented as of this encounter Visit Diagnoses Not on filedocumented in this encounter Care Teams Firmware Developer Relationship Specialty Start Date End Date Elyse Paredes MD PCP - General Family Practice 12/22/13 04/21/22 [address] [place] [address] Raghu Bae PCP - General Emergency Medicine 04/22/22 MD [facility] [address] [place] [address] Dagmar Kang MD Assigned Heart and 02/14/21 02/27/22 [address] [facility], Vascular Provider [address] [place] [address] Dagmar Kang MD Assigned Heart and 03/21/22 04/24/22 [address] [facility], Vascular Provider [address] [place] [address] Nicole Salazar, Assigned Heart and 04/25/22 RUG HOOKER OCCUPANCY SPECIALIST Vascular Provider [address] [facility] [address] [place] [address] documented as of this encounter
--- OUTSIDE RECORDS SUMMARY | 2022-07-09 14:20 | XMS_ITS | Encounter Summary ---
:1950 Author Organization [place] Address [address] [place] [address] Care Team Providers Name Role Phone Elyse Paredes MD Primary Care Provider Encounter Details Date Type Department Care Team Description 08/15/2018 Ambulatory - [facility] S/P TAVR [facility] Debby dorota (transcatheter aortic [address] valve replacement) [place] [address] Social History Tobacco Use Types [...] coming procedures. Cautioned about using Herbal medication. E MACHINE TENDER documented in this encounter Miscellaneous Notes Patient Instructions - HE - Gabrielle Golden RN - 08/15/2018 1:15 PM STAVE MACHINE TENDER Increase dose. E MACHINE TENDER documented in this encounter Plan [...] lacement) documented in this encounter Care Teams Children'S Aide Relationship Specialty Start Date End Date Elyse Paredes MD PCP - General Family Practice 12/22/13 04/21/22 [address]46 [place] [address] documented as of this encounter
--- OUTSIDE RECORDS SUMMARY | 2022-07-09 14:20 | XMS_ITS | Encounter Summary ---
:1950 Author Organization [place] Address [address] [place] [address] Care Team Providers Name Role Phone Elyse Paredes MD Primary Care Provider Encounter Details Date Type Department Care Team Description 09/12/2018 Ambulatory - [facility] S/P TAVR [facility] Heart [facility] Perezu dorota (transcatheter aortic [address] valve replacement) [place] [address] Social History Tobacco Use Types [...] coming procedures. Cautioned about using Herbal medication. MECHANIC documented in this encounter Miscellaneous Notes Patient Instructions - HE - Gabrielle Golden, RN - 09/12/2018 9:45 AM RIG MECHANIC Hold for procedure MECHANIC documented in this encounter Plan of [...] lacement) documented in this encounter Care Teams Handicraft Or Hobby Shop Manager Relationship Specialty Start Date End Date Elsye Paredes MD PCP - General Family Practice 12/22/13 04/21/22 [address] [place] [address] documented as of this encounter
--- OUTSIDE RECORDS SUMMARY | 2022-07-09 14:20 | XMS_ITS | Encounter Summary ---
:1950 Author Organization [place] Address [address] [place] [address]. [place] [address] Care Team Providers Name Role Phone Elyse Paredes MD Primary Care Provider Encounter Details Date Type Department Care Team Description 08/05/2018 Records - [facility] Provider, Histo rical External Imaging [facility] [place] [address] Social History Tobacco Use Types Packs/Day Years Used Date Smoking Tobacco: Never Assessed Sex Assigned at Date Recorded Not on file documented as of this encounter Plan of Treatment Not on filedocumented as of this encounter Procedures Procedure Name Priority Date/Time Associated Diagnosis Comme nts MA EXTERNAL IMAGING Routine 07/28/2018 2:06 PM Re sults for this BREAST PRODUCT SUPPORT ANALYST procedure are i n the results section. documented in this encounter Results MA EXTERNAL IMAGING BREAST (07/28/2018 2:06 PM PRODUCT SUPPORT ANALYST) Anatomical Region Laterality Modality Other Specimen (Source) Anatomical Location Collection Method / Collectio n Time Received Time / Laterality Volume Narrative 08/05/2018 2:06 PM PRODUCT SUPPORT ANALYST Please see PACS Hyperlink for images and scanned result text. Procedure Note Provider, Historical - 01/08/2021Formatt ing of this note might be different from the original. Please see PACS Hyperlink for images and scanned result text. Historical Provider IMG EXTERNAL IMAGING ORDERAB LES documented in this encounter Visit Diagnoses Not on filedocumented in this encounter Care Teams Inspection And Testing Supervisor Relationship Specialty Start Date End Date Elyse Paredes MD PCP - General Family Practice 12/22/13 04/21/22 1540 [place] [address] documented as of this encounter
--- OUTSIDE RECORDS SUMMARY | 2022-07-09 14:20 | XMS_ITS | Encounter Summary ---
:1950 Author Organization [place] Address [address] [place] [address] Care Team Providers Name Role Phone Elyse Paredes MD Primary Care Provider Reason for Visit Reason Comments Consult Encounter Details Date Type Department Care Team Description 08/09/[address] [facility] Araceli Toribio MD Malignant neoplasm Breast Clinic [address] [place] [address] of left breast in [address] [place] [address] [address] female, estrogen [address] [place], [place] [address] [phone] Social History Tobacco Use Types [...] 130.6 kg (288 lb) 08/09/2018 3:47 PM MINE EQUIPMENT DESIGN ENGINEER Height 160 cm (5' 3) 08/09/2018 3:47 PM MINE EQUIPMENT DESIGN ENGINEER Body Mass Index 51.02 08/09/2018 3:47 PM MINE EQUIPMENT DESIGN ENGINEER documented in this encounter Medications at Time [...] Coronary Angiogram; Surgeon: Ankush Martinez MD; Location: [facility] Staff Home Therapy Rn; Service: ??? CV TRANSFEMORAL TRANSCATHETER VALVE REPLACEMENT N/A 07/06/2017 Procedure: Transfemoral Transcatheter Aortic Valve Replacement; Surgeon: Ankush Martinez MD; Location: [facility] Staff Home Therapy Rn; Service: ??? TOTAL KNEE ARTHROPLASTY Bilateral Medications: [...] explained. Also talked about expected recovery time. EQUIPMENT DESIGN ENGINEER Historical Provider - 08/09/2018 3:40 PM CST Chief Complaint Patient presents with ??? Consult patient in for consult on left breast Left breast cancer documented in this encounter Miscellaneous Notes Addendum Note - Historical Provider - 08/09/2018 3:40 PM CST Addendum Note by Helena Kwong CMA at 08/09/2018 3:40 PM Author: Helena Kwong CMA Service: -- Author Type: Glass Frame Fitter Filed: 08/09/2018 4:43 PM Date of Service: 08/09/2018 3:40 PM Status: Signed Chain Builder: Helena Kwong CMA (Glass Frame Fitter) Encounter addended by: Helena Kwong CMA on: 08/09/2018 4:43 PM Actions taken: Sign clinical note, Charge Capture section accepted documented in this encounter Plan of Treatment Not on filedocumented as of this encounter Visit Diagnoses Diagnosis Malignant neoplasm of central portion of left breast in female, estrogen receptor positive (H) documented in this encounter Care Teams Milled Rubber Tender Relationship Specialty Start Date End Date Elyse Paredes MD PCP - General Family Practice 12/22/13 04/21/22 [address] [place] [address] documented as of this encounter
--- OUTSIDE RECORDS SUMMARY | 2022-07-09 14:20 | XMS_ITS | Encounter Summary ---
:1950 Author Organization [place] Address [address] [place] [address]. [place] [address] Care Team Providers Name Role Phone Elyse Paredes MD Primary Care Provider Encounter Details Date Type Department Care Team Description 08/05/2018 Records - [facility] Provider, Histo rical External Imaging [facility] [place] [address] Social History Tobacco Use Types Packs/Day Years Used Date Smoking Tobacco: Never Assessed Sex Assigned at Date Recorded Not on file documented as of this encounter Plan of Treatment Not on filedocumented as of this encounter Procedures Procedure Name Priority Date/Time Associated Diagnosis Comme nts US EXTERNAL IMAGING Routine 07/28/2018 2:06 PM Re sults for this BIOPSY GRAPHIC ARTS INSTRUCTOR procedure are i n the results section. documented in this encounter Results US External Imaging Biopsy (07/28/2018 2:06 PM GRAPHIC ARTS INSTRUCTOR) Anatomical Region Laterality Modality Other Specimen (Source) Anatomical Location Collection Method / Collectio n Time Received Time / Laterality Volume Narrative 08/05/2018 2:06 PM GRAPHIC ARTS INSTRUCTOR Please see PACS Hyperlink for images and scanned result text. Procedure Note Provider, Historical - 01/08/2021Formatt ing of this note might be different from the original. Please see PACS Hyperlink for images and scanned result text. Historical Provider IMG EXTERNAL IMAGING ORDERAB LES documented in this encounter Visit Diagnoses Not on filedocumented in this encounter Care Teams Catcher Filter Tip Relationship Specialty Start Date End Date Elyse Paredes MD PCP - General Family Practice 12/22/13 04/21/22 1540 [place] [address] documented as of this encounter
--- OUTSIDE RECORDS SUMMARY | 2022-07-09 14:20 | XMS_ITS | Encounter Summary ---
:1950 Author Organization [place] Address [address] [place] [address] Care Team Providers Name Role Phone Elyse Paredes MD Primary Care Provider Encounter Details Date Type Department Care Team Description 08/22/2018 Ambulatory - [facility] S/P TAVR [facility] Perezu dorota (transcatheter aortic [address] valve replacement) [place] [address] Social History Tobacco Use Types [...] bleeding or bruising or any upcoming procedures. MAN MAIN BATTLE TANK documented in this encounter Miscellaneous Notes Patient Instructions - HE - Gabrielle Golden RN - 08/22/2018 1:15 PM CREWMAN MAIN BATTLE TANK INR 2.9 After talking with pt and [...] coming procedures. Cautioned about using Herbal medication. MAN MAIN BATTLE TANK documented in this encounter [...] lacement) documented in this encounter Care Teams Purchasing Intern Relationship Specialty Start Date End Date Elyse Paredes MD PCP - General Family Practice 12/22/13 04/21/22 [address] [place] [address] documented as of this encounter
--- OUTSIDE RECORDS SUMMARY | 2022-07-09 14:20 | XMS_ITS | Encounter Summary ---
:1950 Author Organization [place] Address [address] [place] [address] Care Team Providers Name Role Phone Elyse Paredes MD Primary Care Provider Encounter Details Date Type Department Care Team Description 09/05/2018 Ambulatory - [facility] S[facility]P T[facility]R [facility] Perez[facility] dorota (transcatheter aortic [address] valve replacement) [place] [address] Social History Tobacco Use Types [...] coming procedures. Cautioned about using Herbal medication. TION WORKER documented in this encounter Miscellaneous Notes Patient Instructions - HE - Gabrielle Golden RN - 09/05/2018 11:15 AM DONATION WORKER INR 5.5 hold dose today. Then 5 [...] coming procedures. Cautioned about using Herbal medication. TION WORKER documented in this encounter Plan of [...] lacement) documented in this encounter Care Teams Funeral Director/Embalmer/Owner Relationship Specialty Start Date End Date Elyse Paredes MD PCP - General Family Practice 12/22/13 04/21/22 [address] [address] documented as of this encounter
--- OUTSIDE RECORDS SUMMARY | 2022-07-09 14:20 | XMS_ITS | Encounter Summary ---
:1950 Author Organization [place] Address [address] [place] [address] Care Team Providers Name Role Phone Elyse Paredes MD Primary Care Provider Reason for Visit Reason Comments Medication Refill metoprolol, chlor Encounter Details Date Type Department Care Team Description 08/09/2018 Communication - [facility] Gabrielle Golden tion Refill [facility] Dora RN (metoprolol, ch marcella) [place] [address] [facility] [address] [place] [address] Social History Tobacco Use Types Packs/Day Years Used Date Smoking Tobacco: Never Assessed Sex Assigned at Date Recorded Not on file documented as of this encounter Plan of Treatment Not on filedocumented as of this encounter Visit Diagnoses Diagnosis S/P TAVR (transcatheter aortic valve rep lacement) documented in this encounter Care Teams Optics Engineer Relationship Specialty Start Date End Date Elyse Paredes MD PCP - General Family Practice 12/22/13 04/21/22 [address] [place] [address] documented as of this encounter
--- OUTSIDE RECORDS SUMMARY | 2022-07-09 14:21 | XMS_ITS | Encounter Summary ---
:1950 Author Organization [place] Address [address] [place] [address] Care Team Providers Name Role Phone Elyse Paredes MD Primary Care Provider Encounter Details Date Type Department Care Team Description 07/13/2018 Hospital Encounter [facility] Michelle, S/P TAVR [facility] Randy Lechuga MD (transcatheter [facility] [address] [facility] aortic valve [address] replacement) [place] [address] [phone] Social History Tobacco Use Types Packs/Day Years [...] 130.2 kg (287 lb) 07/13/2018 10:43 AM [employer] SALES REPRESENTATIVE Height 160 cm (5' 3) 07/13/2018 10:43 AM [employer] SALES REPRESENTATIVE Body Mass Index 50.84 07/13/2018 10:43 AM [employer] SALES REPRESENTATIVE documented in this encounter Medications at Time [...] 10:44 AM S/P TAVR Results for this [employer] SALES REPRESENTATIVE (transcatheter aortic proced ure are in the valve replacement) results s ection. documented in this encounter Results (ABNORMAL) Echocardiogram Complete (07/13/2018 10:44 AM [employer] SALES REPRESENTATIVE) [facility] Method Time Signature LV volume diastolic 63 46 - 106 07/14/2018 HE RADIAN T cm3 9:14 AM [employer] SALES REPRESENTATIVE CONVERSION LV volume systolic 10 (A) 14 - 42 07/14/2018 HE RADIANT cm3 9:14 AM [employer] SALES REPRESENTATIVE CONVERSION INTERVENTRICULAR 0.8 0.6 - 0.9 07/14/2018 HE RADIANT SEPTUM IN END cm 9:14 AM [employer] SALES REPRESENTATIVE CONVERSION DIASTOLE LVIDd 4.7 3.8 - 5.2 07/14/2018 HE RADIANT cm 9:14 AM [employer] SALES REPRESENTATIVE CONVERSION LVIDs 2.1 (A) 2.2 - 3.5 07/14/2018 HE RADIANT cm 9:14 AM [employer] SALES REPRESENTATIVE CONVERSION LVOT diam 1.9 cm 07/14/2018 HE RADIANT 9:14 AM [employer] SALES REPRESENTATIVE CONVERSION LEFT VENTRICULAR 4 mmHg 07/14/2018 HE RADIANT OUTFLOW TRACT MEAN 9:14 AM [employer] SALES REPRESENTATIVE CONVERSIO N GRADIENT LVOT peak VTI 24.5 cm 07/14/2018 HE RADIANT 9:14 AM [employer] SALES REPRESENTATIVE CONVERSION LEFT VENTRICULAR 94.3 cm/s 07/14/2018 HE RADIANT OUTFLOW TRACT MEAN 9:14 AM [employer] SALES REPRESENTATIVE CONVERSIO N VELOCITY LVOT peak oniel 136 cm/s 07/14/2018 HE RADIANT 9:14 AM [employer] SALES REPRESENTATIVE CONVERSION LEFT VENTRICULAR 7 mmHg 07/14/2018 HE RADIANT OUTFLOW TRACT PEAK 9:14 AM [employer] SALES REPRESENTATIVE CONVERSIO N GRADIENT LV PWd 0.9 0.6 - 0.9 07/14/2018 HE RADIANT cm 9:14 AM [employer] SALES REPRESENTATIVE CONVERSION MV E'TISSUE ONIEL-LAT 3.8 cm/s 07/14/2018 HE RADIAN T 9:14 AM [employer] SALES REPRESENTATIVE CONVERSION MV E' med oniel 5.36 cm/s 07/14/2018 HE RADIANT 9:14 AM [employer] SALES REPRESENTATIVE CONVERSION LA area 16.7 cm2 07/14/2018 HE RADIANT 9:14 AM [employer] SALES REPRESENTATIVE CONVERSION LA size 3.4 cm 07/14/2018 HE RADIANT 9:14 AM [employer] SALES REPRESENTATIVE CONVERSION AV mean oniel 202 cm/s 07/14/2018 HE RADIANT 9:14 AM [employer] SALES REPRESENTATIVE CONVERSION AV mean gradient 18 mmHg 07/14/2018 HE RADIANT 9:14 AM [employer] SALES REPRESENTATIVE CONVERSION AV VTI 54.7 cm 07/14/2018 HE RADIANT 9:14 AM [employer] SALES REPRESENTATIVE CONVERSION AV peak oniel 292 cm/s 07/14/2018 HE RADIANT 9:14 AM [employer] SALES REPRESENTATIVE CONVERSION AO root 2.3 cm 07/14/2018 HE RADIANT 9:14 AM [employer] SALES REPRESENTATIVE CONVERSION MV decel time 292 ms 07/14/2018 HE RADIANT 9:14 AM [employer] SALES REPRESENTATIVE CONVERSION MV peak A oniel 105 cm/s 07/14/2018 HE RADIANT 9:14 AM [employer] SALES REPRESENTATIVE CONVERSION MV peak E oniel 74 cm/s 07/14/2018 HE RADIANT 9:14 AM [employer] SALES REPRESENTATIVE CONVERSION TAPSE 2.3 cm 07/14/2018 HE RADIANT 9:14 AM [employer] SALES REPRESENTATIVE CONVERSION BSA 2.4 m2 07/14/2018 HE RADIANT 9:14 AM [employer] SALES REPRESENTATIVE CONVERSION End systolic index 63 in 07/14/2018 HE RADIANT (mL/m2) 9:14 AM [employer] SALES REPRESENTATIVE CONVERSION End diastolic index 4,592 lbs 07/14/2018 HE RADIAN T (mL/m2) 9:14 AM [employer] SALES REPRESENTATIVE CONVERSION BP 137/73 mmHg 07/14/2018 HE RADIANT 9:14 AM [employer] SALES REPRESENTATIVE CONVERSION IVS/PW RATIO 0.9 07/14/2018 HE RADIANT 9:14 AM [employer] SALES REPRESENTATIVE CONVERSION LV FS 55.3 28 - 44 % 07/14/2018 HE RADIANT 9:14 AM [employer] SALES REPRESENTATIVE CONVERSION Ejection Fraction 84 55 - 75 % 07/14/2018 HE RADIANT 9:14 AM [employer] SALES REPRESENTATIVE CONVERSION LV mass 132.3 g 07/14/2018 HE RADIANT 9:14 AM [employer] SALES REPRESENTATIVE CONVERSION AV area 1.3 cm2 07/14/2018 HE RADIANT 9:14 AM [employer] SALES REPRESENTATIVE CONVERSION AV DIM IND oniel 0.5 07/14/2018 HE RADIANT 9:14 AM [employer] SALES REPRESENTATIVE CONVERSION MV E/A Ratio 0.7 07/14/2018 HE RADIANT 9:14 AM [employer] SALES REPRESENTATIVE CONVERSION LVOT area 2.83 cm2 07/14/2018 HE RADIANT 9:14 AM [employer] SALES REPRESENTATIVE CONVERSION LVOT SV 69.4 cm3 07/14/2018 HE RADIANT 9:14 AM [employer] SALES REPRESENTATIVE CONVERSION AV peak gradient 34.1 mmHg 07/14/2018 HE RADIANT 9:14 AM [employer] SALES REPRESENTATIVE CONVERSION LV systolic volume 4.2 8 - 24 07/14/2018 HE RADIANT index cm3/m2 9:14 AM [employer] SALES REPRESENTATIVE CONVERSION LV diastolic volume 26.3 29 - 61 07/14/2018 HE RADIAN T index cm3/m2 9:14 AM [employer] SALES REPRESENTATIVE CONVERSION LEFT VENTRICLE MASS 55.1 g/m2 07/14/2018 HE RADIAN T INDEX 9:14 AM [employer] SALES REPRESENTATIVE CONVERSION LV SVi 28.9 ml/m2 07/14/2018 HE RADIANT 9:14 AM [employer] SALES REPRESENTATIVE CONVERSION MV med E/e' ratio 13.8 07/14/2018 HE RADIANT 9:14 AM [employer] SALES REPRESENTATIVE CONVERSION MV lat E/e' ratio 19.5 07/14/2018 HE RADIANT 9:14 AM [employer] SALES REPRESENTATIVE CONVERSION Height 63.0 in 07/14/2018 HE RADIANT 9:14 AM [employer] SALES REPRESENTATIVE CONVERSION Weight 287 lbs 07/14/2018 HE RADIANT 9:14 AM [employer] SALES REPRESENTATIVE CONVERSION MV AVERAGE E/E' 16.2 cm/s 07/14/2018 HE RADIANT RATIO 9:14 AM [employer] SALES REPRESENTATIVE CONVERSION AV DIMENSIONLESS 0.4 07/14/2018 HE RADIANT INDEX VTI 9:14 AM [employer] SALES REPRESENTATIVE CONVERSION Anatomical Region Laterality Modality Echocardiography Specimen (Source) Anatomical Collection Method Collection Time Re ceived Time Location / / Volume Laterality 07/13/2018 9:59 AM [employer] SALES REPRESENTATIVE Narrative 07/14/2018 9:14 AM [employer] SALES REPRESENTATIVE 1. The left ventricle is normal in [...] lacement) documented in this encounter Care Teams Noodle Maker Relationship Specialty Start Date End Date Elyse Paredes MD PCP - General Family Practice 12/22/13 04/21/22 [address]10 [place] [address] documented as of this encounter
--- OUTSIDE RECORDS SUMMARY | 2022-07-09 14:21 | XMS_ITS | Encounter Summary ---
:1950 Author Organization [place] Address [address] [place] [address] Care Team Providers Name Role Phone Elyse Paredes MD Primary Care Provider Encounter Details Date Type Department Care Team Description 07/04/2018 Ambulatory - [facility] S/P TAVR [facility] Perez[facility] d[facility] (transcatheter aortic [address] valve replacement) [place] [address] Social History Tobacco Use Types [...] coming procedures. Cautioned about using Herbal medication. ERSITY INTERN documented in this encounter Plan of Treatment [...] lacement) documented in this encounter Care Teams Straddle Bug Driver Relationship Specialty Start Date End Date Elyse Paredes MD PCP - General Family Practice 12/22/13 04/21/22 [address] [place] [address] documented as of this encounter
--- OUTSIDE RECORDS SUMMARY | 2022-07-09 14:21 | XMS_ITS | Encounter Summary ---
:1950 Author Organization [place] Address [address] [place] [address] Care Team Providers Name Role Phone Elyse Paredes MD Primary Care Provider Encounter Details Date Type Department Care Team Description 07/22/2018 Ambulatory - [facility] Provider, S/P TAVR [facility] (transcathe [facility] [place] aortic valve [address] replacement) [place] [address] Social History Tobacco Use Types Packs/Day Years Used Date Smoking Tobacco: Never Assessed Sex Assigned at Date Recorded Not on file documented as of this encounter Plan of Treatment Not on filedocumented as of this encounter Visit Diagnoses Diagnosis S/P TAVR (transcatheter aortic valve rep lacement) documented in this encounter Care Teams Para Educator Relationship Specialty Start Date End Date Elyse Paredes MD PCP - General Family Practice 12/22/13 04/21/22 1540 [place], [place] [id number] documented as of this encounter
--- OUTSIDE RECORDS SUMMARY | 2022-07-09 14:21 | XMS_ITS | Encounter Summary ---
:1950 Author Organization [place] Address [address] [place] [address]. [place] [address] Care Team Providers Name Role Phone Elyse Paredes MD Primary Care Provider Encounter Details Date Type Department Care Team Description 08/05/2018 Records - [facility] Provider, Histo rical External Imaging [facility] [place] [address] Social History Tobacco Use Types Packs/Day Years Used Date Smoking Tobacco: Never Assessed Sex Assigned at Date Recorded Not on file documented as of this encounter Plan of Treatment Not on filedocumented as of this encounter Procedures Procedure Name Priority Date/Time Associated Diagnosis Comme nts MA EXTERNAL IMAGING Routine 07/19/2018 2:06 PM Re sults for this BREAST COMPENSATION BUSINESS PARTNER procedure are i n the results section. documented in this encounter Results MA EXTERNAL IMAGING BREAST (07/19/2018 2:06 PM COMPENSATION BUSINESS PARTNER) Anatomical Region Laterality Modality Other Specimen (Source) Anatomical Location Collection Method / Collectio n Time Received Time / Laterality Volume Narrative 08/05/2018 2:07 PM COMPENSATION BUSINESS PARTNER Please see PACS Hyperlink for images and scanned result text. Procedure Note Provider, Historical - 01/08/2021Formatt ing of this note might be different from the original. Please see PACS Hyperlink for images and scanned result text. Historical Provider IMG EXTERNAL IMAGING ORDERAB LES documented in this encounter Visit Diagnoses Not on filedocumented in this encounter Care Teams Power Plant Superintendent Relationship Specialty Start Date End Date Elyse Paredes MD PCP - General Family Practice 12/22/13 04/21/22 [address] [place] [address] documented as of this encounter
--- OUTSIDE RECORDS SUMMARY | 2022-07-09 14:21 | XMS_ITS | Encounter Summary ---
:1950 Author Organization [place] Address [address] [place] [address] Care Team Providers Name Role Phone Elyse Paredes MD Primary Care Provider Encounter Details Date Type Department Care Team Description 06/30/2018 Ambulatory - [facility]ivo use of [facility] [address] [facility] [address] [place] [phone] Social History Tobacco Use Types Packs/Day Years Used Date Smoking Tobacco: Never Assessed Sex Assigned at Date Recorded Not on file documented as of this encounter Plan of Treatment Not on filedocumented as of this encounter Visit Diagnoses Diagnosis emt intermediate use of drug Encounter for long-term (current) use of other medications documented in this encounter Care Teams Literacy Coordinator Relationship Specialty Start Date End Date Elyse Paredes MD PCP - General Family Practice 12/22/13 04/21/22 15[address] [place] [address] documented as of this encounter
--- OUTSIDE RECORDS SUMMARY | 2022-07-09 14:21 | XMS_ITS | Encounter Summary ---
:1950 Author Organization [place] Address [address] [place] [address]. [place] [address] Care Team Providers Name Role Phone Dagmar Kang MD Unavailable Elyse Paredes MD Primary Care Provider Encounter Details Date Type Department Care Team Description 08/03/2018 Records - [facility] CONVERSION Provider, Karthik raya Social History Tobacco Use Types Packs/Day Years Used Date Smoking Tobacco: Never Assessed Sex Assigned at Date Recorded Not on file documented as of this encounter Plan of Treatment Not on filedocumented as of this encounter Visit Diagnoses Not on filedocumented in this encounter Care Teams Care Provider Relationship Specialty Start Date End Date Elyse Paredes MD PCP - General Family Practice 12/22/13 04/21/22 [address] [place] [address] Dagmar Kang MD Assigned Heart and 02/14/21 02/27/22 [address] [facility] [address], Vascular Provider [address] [place] [address] documented as of this encounter
--- OUTSIDE RECORDS SUMMARY | 2022-07-09 14:21 | XMS_ITS | Encounter Summary ---
:1950 Author Organization [place] Address [address] [place] [address] Care Team Providers Name Role Phone Elyse Paredes MD Primary Care Provider Reason for Visit Reason Comments Other stopping Plavix Encounter Details Date Type Department Care Team Description 08/03/2018 Communication - [facility] Gabrielle Golden Other (stopping [facility] RN Plavix) [address] [place] [phone] Social History Tobacco Use Types Packs/Day Years Used Date Smoking Tobacco: Never Assessed Sex Assigned at Date Recorded Not on file documented as of this encounter Miscellaneous Notes Telephone Encounter - Gabrielle Golden RN - 08/03/2018 9:12 AM CST Noted no refill sent. PONG TABLE ASSEMBLER Telephone Encounter - Gabrielle Golden RN - 08/03/2018 9:12 AM CST ----- Message from Ashley Anderson PA-C sent at 08/03/2018 8:51 AM PING PONG TABLE ASSEMBLER ----- Regarding: RE: Plavix Not necessary. She [...] be on Plavix? Seeing Mery on 08/08/18. PONG TABLE ASSEMBLER documented in this encounter Plan of Treatment Not on filedocumented as of this encounter Visit Diagnoses Not on filedocumented in this encounter Care Teams Laser Beam Machine Operator Relationship Specialty Start Date End Date Elyse Paredes MD PCP - General Family Practice 12/22/13 04/21/22 [address] [place] [address] documented as of this encounter
--- OUTSIDE RECORDS SUMMARY | 2022-07-09 14:21 | XMS_ITS | Encounter Summary ---
:1950 Author Organization [place] Address [address] [place] [address] Care Team Providers Name Role Phone Elyse Paredes MD Primary Care Provider Encounter Details Date Type Department Care Team Description 06/10/2018 [facility] [address] [facility] [address], [address] [place] [address] [phone] Social History Tobacco Use Types Packs/Day Years Used Date Smoking Tobacco: Never Assessed Sex Assigned at Date Recorded Not on file documented as of this encounter Plan of Treatment Not on filedocumented as of this encounter Procedures Procedure Name Priority Date/Time Associated Comments Diagnosis RESPIRATORY AEROBIC Routine 06/10/2018 2:21 PM Re sults for this BACTERIAL CULTURE REGULATORY AFFAIRS COORDINATOR procedure are in the results section. documented in this encounter Results Respiratory Aerobic Bacterial Culture (06/10/2018 2:21 PM REGULATORY AFFAIRS COORDINATOR) P athologist Signature Culture Usual 06/12/2018 [facility] Khushi 11:48 AM REGULATORY AFFAIRS COORDINATOR [facility] Specimen (Source) Anatomical Collection Method Collection Time Re ceived Time Location / / Volume Laterality Respiratory 06/10/2018 2:21 06/10/2018 6 :03 specimen (specimen) PM REGULATORY AFFAIRS COORDINATOR PM REGULATORY AFFAIRS COORDINATOR Dee Dee Gong PA-C LAB - MICRO GENERAL ORDERABL ES Performing Organization Address City/State/ZIP Code Phon [place] [address] [facility] [address] [facility] documented in this encounter Visit Diagnoses Not on filedocumented in this encounter Care Teams Wedding Designer Relationship Specialty Start Date End Date Elyse Paredes MD PCP - General Family Practice 12/22/13 04/21/22 [address] [address] documented as of this encounter
--- OUTSIDE RECORDS SUMMARY | 2022-07-09 14:21 | XMS_ITS | Encounter Summary ---
:1950 Author Organization [place] Address [address] [place] [address] Care Team Providers Name Role Phone Elyse Paredes MD Primary Care Provider Encounter Details Date Type Department Care Team Description 07/13/2018 Ambulatory - [facility] S/P coronary artery [facility] [address] [place] [address] Social History Tobacco Use Types Packs/Day Years Used Date Smoking Tobacco: Never Assessed Sex Assigned at Date Recorded Not on file documented as of this encounter Plan of Treatment Not on filedocumented as of this encounter Procedures Procedure Name Priority Date/Time Associated Diagnosis Comme nts GLUCOSE BY METER Routine 07/13/2018 12:11 PM Resu lts for this POCT PLATER PRINTED CIRCUIT BOARD PANELS procedure are i n the results section. documented in this encounter Results Glucose by meter POCT (07/13/2018 12:11 PM PLATER PRINTED CIRCUIT BOARD PANELS) P athologist Signature GLUCOSE BY 124 mg/dL 07/13/2018 [facility] METER POCT 12:11 PM [facility] POCT RESULTS Comment: Reference [...] specimen 07/13/2018 12:11 8 6:49 (specimen) PM PLATER PRINTED CIRCUIT BOARD PANELS AM PLATER PRINTED CIRCUIT BOARD PANELS Narrative [facility] POCT RESULTS - 07/13 12:11 PM PLATER PRINTED CIRCUIT BOARD PANELS arterial/capillary Draw Historical Provider LAB - ENTER/EDIT POCT Performing Organization Address City/State/ZIP Code Phon e Number [facility] POCT RESULTS [address] [place] [address] documented in this encounter Visit Diagnoses Diagnosis S/P coronary artery stent placement Postsurgical percutaneous transluminal c oronary angioplasty status documented in this encounter Care Teams Biology Lecturer Relationship Specialty Start Date End Date Elyse Paredes MD PCP - General Family Practice 12/22/13 04/21/22 [address] [place] [address] documented as of this encounter
--- OUTSIDE RECORDS SUMMARY | 2022-07-09 14:21 | XMS_ITS | Encounter Summary ---
:1950 Author Organization [place] Address [address] [place] [address] Care Team Providers Name Role Phone Elyse Paredes MD Primary Care Provider Encounter Details Date Type Department Care Team Description 08/03/2018 [facility] [place] Elyse Paredes MD [address] [place] [address] [facility], Historical carcinoma of Patient Access breast, left (H) [address] [place] [address] Social History Tobacco Use Types Packs/Day Years Used Date Smoking Tobacco: Never Assessed Sex Assigned at Date Recorded Not on file documented as of this encounter Plan of Treatment Not on filedocumented as of this encounter Visit Diagnoses Diagnosis Invasive ductal carcinoma of breast, lef t (H) documented in this encounter Care Teams Paradichlorobenzene Machine Operator Relationship Specialty Start Date End Date Elyse Paredes MD PCP - General Family Practice 12/22/13 04/21/22 [address] [place] [address] documented as of this encounter
--- OUTSIDE RECORDS SUMMARY | 2022-07-09 14:21 | XMS_ITS | Encounter Summary ---
:1950 Author Organization [place] Address [address] [place] [address] Care Team Providers Name Role Phone Elyse Paredes MD Primary Care Provider Reason for Visit Reason Comments Medication Refill Encounter Details Date Type Department Care Team Description 07/30/2018 Communication - [facility] [place], Medicat ion Refill [facility] GRIFFIN Ruiz [facility] [address] [place], [place] [address] [address] [place], [place] [phone] [address] Social History Tobacco Use Types Packs/Day Years Used Date Smoking Tobacco: Never Assessed Sex Assigned at Date Recorded Not on file documented as of this encounter Plan of Treatment Not on filedocumented as of this encounter Visit Diagnoses Diagnosis Paroxysmal atrial fibrillation (H) Atrial fibrillation documented in this encounter Care Teams Lay Out Inspector Relationship Specialty Start Date End Date Elyse Paredes MD PCP - General Family Practice 12/22/13 04/21/22 [address] [place] [address] documented as of this encounter
--- OUTSIDE RECORDS SUMMARY | 2022-07-09 14:21 | XMS_ITS | Encounter Summary ---
:1950 Author Organization [place] Address [address] [place] [address]. [place] [address] Care Team Providers Name Role Phone Elyse Paredse MD Primary Care Provider Encounter Details Date Type Department Care Team Description 06/30/2018 Ambulatory - [facility], S/P TAVR [facility] Heart Clinic St. Priya John RN (transcathe ter Fransico aortic valve [address] replacement) [place] [phone] Social History Tobacco Use Types Packs/Day Years Used Date Smoking Tobacco: Never Assessed Sex Assigned at Date Recorded Not on file documented as of this encounter Plan of Treatment Not on filedocumented as of this encounter Visit Diagnoses Diagnosis S/P TAVR (transcatheter aortic valve rep lacement) documented in this encounter Care Teams Cash On Delivery Clerk Relationship Specialty Start Date End Date Elyse Paredes MD PCP - General Family Practice 12/22/13 04/21/22 [address] [place] [address] documented as of this encounter
--- OUTSIDE RECORDS SUMMARY | 2022-07-09 14:21 | XMS_ITS | Encounter Summary ---
:1950 Author Organization [place] Address [address] [place] [address] Care Team Providers Name Role Phone Elyse Paredes MD Primary Care Provider Reason for Visit Reason Comments Medication Refill Encounter Details Date Type Department Care Team Description 07/30/2018 Communication - [facility], [facility] MD Ankush [address] [facility] [address] [place] [address] Social History Tobacco Use Types Packs/Day Years Used Date Smoking Tobacco: Never Assessed Sex Assigned at Date Recorded Not on file documented as of this encounter Miscellaneous Notes Telephone Encounter - Gabrielle Goldne, RN - 08/03/2018 9:15 AM CST Med stopped IER RECEPTIONIST documented in this encounter Plan of Treatment Not on filedocumented as of this encounter Visit Diagnoses Diagnosis Coronary artery disease involving habematolel coronary artery of habematolel heart, angina presence unspecified documented in this encounter Care Teams Territory Manager Relationship Specialty Start Date End Date Elyse Paredes MD PCP - General Family Practice 12/22/13 04/21/22 [address] [place] [address] documented as of this encounter
--- OUTSIDE RECORDS SUMMARY | 2022-07-09 14:21 | XMS_ITS | Encounter Summary ---
:1950 Author Organization [place] Address [address] [place] [address] Care Team Providers Name Role Phone Elyse Paredes MD Primary Care Provider Encounter Details Date Type Department Care Team Description 06/06/2018 Ambulatory - [facility] S/P TAVR [facility] Heart [facility] St[facility] Perezu dorota (transcatheter aortic [address] valve replacement) [place] [address] Social History Tobacco Use Types [...] coming procedures. Cautioned about using Herbal medication. ITECTURAL EXAMINER documented in this encounter Plan of [...] lacement) documented in this encounter Care Teams Case Filler Relationship Specialty Start Date End Date Elyse Paredes MD PCP - General Family Practice 12/22/13 04/21/22 [address] [place] [address] documented as of this encounter
--- OUTSIDE RECORDS SUMMARY | 2022-07-09 14:22 | XMS_ITS | Encounter Summary ---
:1950 Author Organization [place] Address [address] [place] [address] Care Team Providers Name Role Phone Elyse Paredes MD Primary Care Provider Encounter Details Date Type Department Care Team Description 02/04/2018 Hospital Encounter [facility] [place], [place] istent atrial [facility] Nicole AGRIFFIN fibrillation ( H) [facility] Heart Care [address] [place], [place] [address] [address] [place], [place] [phone] [address] Social History Tobacco Use Types Packs/Day [...] Results Echocardiogram Complete (02/04/2018 11:08 AM CDT) [facility] gist Method Time Signature LV volume [...] between the 2 examinations. Nicole Salazar APRN CLERK OF COURT CV ECHO ORDERABLES documented in this encounter Visit Diagnoses Diagnosis Persistent atrial fibrillation (H) Atrial fibrillation documented in this encounter Care Teams Global Commodity Manager Relationship Specialty Start Date End Date Elyse Paredes MD PCP - General Family Practice 12/22/13 04/21/22 [address] [place] [address] documented as of this encounter
--- OUTSIDE RECORDS SUMMARY | 2022-07-09 14:22 | XMS_ITS | Encounter Summary ---
:1950 Author Organization [place] Address [address] [place] [address]. [place] [address] Care Team Providers Name Role Phone Elyse Paredes MD Primary Care Provider Reason for Visit Reason Comments Results Encounter Details Date Type Department Care Team Description 03/03/2018 Communication - [facility] [place], Results [facility] Heart Clinic [facility] Debby Ng APRN [address] 1600 [facility] [address] [address] [place] [address] Social History Tobacco Use Types Packs/Day Years Used Date Smoking Tobacco: Never Assessed Sex Assigned at Date Recorded Not on file documented as of this encounter Plan of Treatment Not on filedocumented as of this encounter Visit Diagnoses Not on filedocumented in this encounter Care Teams Network Technical Analyst Relationship Specialty Start Date End Date Elyse Paredes MD PCP - General Family Practice 12/22/13 04/21/22 [address] [place] [address] documented as of this encounter
--- OUTSIDE RECORDS SUMMARY | 2022-07-09 14:22 | XMS_ITS | Encounter Summary ---
:1950 Author Organization [place] Address [address] [place] [address] Care Team Providers Name Role Phone Elyse Paredes MD Primary Care Provider Reason for Visit Reason Comments Other Encounter Details Date Type Department Care Team Description 04/19/2018 Communication - [facility], Other [facility] Heart Clinic St. Debby Ng APRN [address] 1600 [facility] [address] [address] [place] [address] Social History Tobacco Use Types Packs/Day Years Used Date Smoking Tobacco: Never Assessed Sex Assigned at Date Recorded Not on file documented as of this encounter Plan of Treatment Not on filedocumented as of this encounter Visit Diagnoses Diagnosis Paroxysmal atrial fibrillation (H) Atrial fibrillation documented in this encounter Care Teams Civil Rights Representative Relationship Specialty Start Date End Date Elyse Paredes MD PCP - General Family Practice 12/22/13 04/21/22 [address] [place] [address] documented as of this encounter
--- OUTSIDE RECORDS SUMMARY | 2022-07-09 14:22 | XMS_ITS | Encounter Summary ---
:1950 Author Organization [place] Address [address] [place] [address] Care Team Providers Name Role Phone Elyse Paredes MD Primary Care Provider Reason for Visit Reason Comments Other Encounter Details Date Type Department Care Team Description 04/07/2018 Communication - [facility] Tanner Anderson PA-C [address] [place] [address] Other [facility] Heart [address] [phone] Social History Tobacco Use Types Packs/Day Years Used Date Smoking Tobacco: Never Assessed Sex Assigned at Date Recorded Not on file documented as of this encounter Plan of Treatment Not on filedocumented as of this encounter Visit Diagnoses Diagnosis Paroxysmal atrial fibrillation (H) Atrial fibrillation documented in this encounter Care Teams Heating And Ventilating Worker Relationship Specialty Start Date End Date Elyse Paredes MD PCP - General Family Practice 12/22/13 04/21/22 [address] [place] [address] documented as of this encounter
--- OUTSIDE RECORDS SUMMARY | 2022-07-09 14:22 | XMS_ITS | Encounter Summary ---
:1950 Author Organization [place] Address [address] [place] [address] Care Team Providers Name Role Phone Elyse Paredes MD Primary Care Provider Reason for Visit Reason Comments Follow Up Encounter Details Date Type Department Care Team Description 05/19/2018 Office Visit - [facility] Jun Salazar nt atrial fibrillation (H); [facility] Nicole Ng APRN S/P TAVR ( transcatheter aortic valve replacement); Fransico HYDE Chronic diastolic congestive heart failu re (H); [address] 1600 [facility] Essential hypertension; [place], [place] [address] Benign essential hypertension; [address] [place], [place] CASTRO (dyspnea on exertion) [phone] [address] Social History Tobacco Use Types Packs/Day Years [...] this encounter Progress Notes Nicole Salazar APRN AUTOMATIC TRANSMISSION MECHANIC - 05/19/2018 10:30 AM CDT Images from the original note were not included. Progress Notes by Nicole Salazar CNP at 05/19/2018 10:30 AM Author: Nicole Salazar CNP Service: -- Author Type: Nurse Practitioner Filed: 05/19/2018 11:43 AM Encounter Date: 05/19/2018 Status: Signed Capacity Manager: Nicole Salazar CNP (Nurse Practitioner) Click to link to [facility] Heart [facility] HEART [facility] ELECTROPHYSIOLOGY NOTE Assessment/Recommendations Assessment/Plan: Diagnoses and [...] Will get today. - Basic metabolic panel [id number] score of 5 and on chronic warfarin. [...] on exertion. She spent several weeks in [place] on vacation and tells me that despite [...] ms QTC CALCULATION (BEZET) 436 ms P [place] degrees R AXIS 5 degrees T AXIS 28 degrees MUSE DIAGNOSIS Sinus rhythm with Premature atrial complexes Otherwise normal ECG When compared with ECG of 08-SEP-2017 14:43, Premature atrial complexes are now Present Left bundle branch block is no longer Present Confirmed by WINDY PIERRE MD LOC:[facility] ([id number]) on 09/27/2017 4:52:27 PM Problem List: Patient Active Problem List Diagnosis ? HLD (hyperlipidemia) ? CASTRO (dyspnea on exertion) ? Coronary artery disease involving [place] coronary artery of [place] heart, angina presence unspecified ? DEDE on [...] Coronary Angiogram; Surgeon: Ankush Martinez MD; Location: [facility] Multicultural Manager; Service: ? CV TRANSFEMORAL TRANSCATHETER VALVE REPLACEMENT N/A 07/06/2017 Procedure: Transfemoral Transcatheter Aortic Valve Replacement; Surgeon: Ankush Martinez MD; Location: [facility] Multicultural Manager; Service: ? TOTAL KNEE ARTHROPLASTY Bilateral Family [...] inherent to the software. Nicole Salazar RN, [facility] Heart Care Electrophysiology [phone] documented in this encounter Plan of Treatment [...] 45 U/L 05/19/2018 HEALTH 11:57 AM CDT [facility] Specimen Anatomical Collection Method / Collection Time Recei gil Time (Source) Location / Volume Laterality Blood specimen Venipuncture / 05/19/2018 11:27 018 (specimen) Unknown AM CDT 11:40 AM CDT Nicole Salazar WARDROBE COORDINATOR AUTOMATIC TRANSMISSION MECHANIC LAB - BLOOD ORDERABLES Performing Organization Address [facility] Phon e Number [place] [address] [address] [facility] (ABNORMAL) Basic metabolic panel (05/19/2018 11:27 AM CDT) Patholo gist Method Time Signature Sodium 135 (L) 136 - 145 05/19/2018 HEALTH mmol/L 11:57 AM CDT [facility] Potassium 4.7 3.5 - 5.0 05/19/2018 HEALTH mmol/L 11:57 AM CDT [facility] Chloride 102 98 - 107 05/19/2018 HEALTH mmol/L 11:57 AM CDT [facility] Carbon Dioxide 26 22 - 31 05/19/2018 HEALTH (CO2) mmol/L 11:57 AM CDT [facility] Anion Gap 7 5 - 18 05/19/2018 HEALTH mmol/L 11:57 AM CDT [facility] Glucose 151 (H) 70 - 125 05/19/2018 [facility] mg/dL 11:57 AM T [facility] Calcium 9.9 8.5 - 10.5 05/19/2018 [facility] mg/dL 11:57 AM T [facility] Urea Nitrogen 18 8 - 22 05/19/2018 [facility] mg/dL 11:57 AM T [facility] Creatinine 1.17 (H) 0.60 - 05/19/2018 HEALTH 1.10 mg/dL 11:57 AM T [facility] GFR Estimate If 56 (L) >60 05/19/2018 [facility] Black mL/min/1.7 11:57 AM T [address] LABORATORY GFR Estimate 46 (L) >60 05/19/2018 [facility] mL/min/1.7 11:57 AM T [address] LABORATORY Specimen Anatomical Collection Method / Collection Time Recei gil Time (Source) Location / Volume Laterality Blood specimen Venipuncture / 05/19/2018 11:27 018 (specimen) Unknown AM CDT 11:40 AM CDT Narrative [facility] - 05/19/2018 11:57 AM CDT Fasting Glucose reference range is 70-99 mg/dL per [place] [employer] (ADA) charles martinez. Nicole Salazar APRN AUTOMATIC TRANSMISSION MECHANIC LAB - BLOOD ORDERABLES Performing Organization Address City/State/ZIP Code Phon e Number [facility] [place] [address] [id number] [place] [address] LABORATORY [facility] [address] [place] [address], [facility] documented in this encounter Visit Diagnoses Diagnosis Persistent atrial fibrillation (H) Atrial fibrillation S/P TAVR (transcatheter aortic valve rep lacement) Chronic diastolic congestive heart failu re (H) Chronic diastolic heart failure Essential hypertension Unspecified essential hypertension Benign essential hypertension Essential hypertension, benign CASTRO (dyspnea on exertion) Other dyspnea and respiratory abnormalit y documented in this encounter Care Teams Reed Man Relationship Specialty Start Date End Date Elyse Paredes MD PCP - General Family Practice 12/22/13 04/21/22 [address] [place] [address] documented as of this encounter
--- OUTSIDE RECORDS SUMMARY | 2022-07-09 14:22 | XMS_ITS | Encounter Summary ---
:1950 Author Organization [place] Address [address] [place] [address] Care Team Providers Name Role Phone Elyse Paredes MD Primary Care Provider Encounter Details Date Type Department Care Team Description 01/26/2018 Ambulatory - [facility] S/P TAVR (transcatheter aort ic valve replacement); [address] S/[place] coronary [place] [address] Social History Tobacco Use Types [...] on exertion) ??? Coronary artery disease involving [place] coronary artery of [place] heart, angina presence unspecified ??? DEDE on [...] is not able to assist with cares Baptist/Community involvement: yes Recreation/Hobbies: loom weaving, silk scarf dying, wood block printing Current Activity Level Mobility status: Cane (t times) Self Cares/ ADL's: independent Home management: independent Driving: yes Sleeping Pattern: good Appetite: good Pain-none Home exercise/Equipment: 12[place]iser Psychosocial/ Emotional Health 1. In the past 12 months, have you been in a relationship where you have been abused physically, emotionally, sexually or financially? No Payroll And Benefits Assistant notified: NA 2. Who do you turn [...] to be ready for a trip to [place] this fall Phase 3 Plan: Adjust therapy according to patient tolerance, vital signs and symptoms. Assess functional status and recommend changes as needed. Primary MD: Dr.Denise Paredes Phone: [facility] [phone] documented in this encounter Plan of Treatment Not on filedocumented as of this encounter Visit Diagnoses Diagnosis S/P TAVR (transcatheter aortic valve rep lacement) S/P coronary artery stent placement Postsurgical percutaneous transluminal c oronary angioplasty status documented in this encounter Care Teams Digital Media Intern Relationship Specialty Start Date End Date Elyse Paredes MD PCP - General Family Practice 12/22/13 04/21/22 [address] [place] [address] documented as of this encounter
--- OUTSIDE RECORDS SUMMARY | 2022-07-09 14:22 | XMS_ITS | Encounter Summary ---
:1950 Author Organization [place] Address [address] [place] [address] Care Team Providers Name Role Phone Elyse Paredes MD Primary Care Provider Reason for Visit Reason Comments Results Encounter Details Date Type Department Care Team Description 02/10/2018 Communication - [facility] Tanner Anderson PA-C [address] [place] [address] Results [facility] Heart [address] [phone] Social History Tobacco Use Types Packs/Day Years Used Date Smoking Tobacco: Never Assessed Sex Assigned at Date Recorded Not on file documented as of this encounter Plan of Treatment Not on filedocumented as of this encounter Visit Diagnoses Not on filedocumented in this encounter Care Teams Customer Service Leader Relationship Specialty Start Date End Date Elyse Paredes MD PCP - General Family Practice 12/22/13 04/21/22 [address] [place] [address] documented as of this encounter
--- OUTSIDE RECORDS SUMMARY | 2022-07-09 14:22 | XMS_ITS | Encounter Summary ---
:1950 Author Organization [place] Address [address] [place] [address] Care Team Providers Name Role Phone Elyse Paredes MD Primary Care Provider Encounter Details Date Type Department Care Team Description 05/19/2018 [facility] PAYTON John (transcatheter [place] aortic valve [address] [facility] replacement) [place] [address] [place] [address] Social History Tobacco Use Types Packs/Day Years Used Date Smoking Tobacco: Never Assessed Sex Assigned at Date Recorded Not on file documented as of this encounter Progress Notes Gabrielle Golden RN - 05/19/2018 12:40 PM CDT INR 3.7 Left VM message with return phone number for questions and concerns. [phone] Decrease Warfarin to 5 mg Wednesday and [...] lacement) documented in this encounter Care Teams Roving Hand Relationship Specialty Start Date End Date Elyse Paredes MD PCP - General Family Practice 12/22/13 04/21/22 [address] [place] [address] documented as of this encounter
--- OUTSIDE RECORDS SUMMARY | 2022-07-09 14:22 | XMS_ITS | Encounter Summary ---
:1950 Author Organization [place] Address [address] [place] [address] Care Team Providers Name Role Phone Elyse Paredes MD Primary Care Provider Encounter Details Date Type Department Care Team Description 02/18/2018 [facility] [place], Sinus bradycardia [facility] Nicole Ng APRN Heart Care [facility] [address] [place], [place] [address] [address] [place], [place] [phone] [address] Social History Tobacco Use Types Packs/Day [...] 18:14:39 T 02/22/2018 18:41:21 R 02/22/2018 18:41:21 [id number] cc: ELYSE SALAZAR [facility] Procedure Note Juan De Luna MD / Provider, [email or web address] - 01/06/2021 HOLTER MONITOR IMPRESSION: 1. [...] 18:14:39 T 02/22/2018 18:41:21 R 02/22/2018 18:41:21 [id number] cc: ELYSE SALAZAR [facility] Nicole Salazar [place] ADMINISTRATOR RISK MANAGEMENT MANAGER CV CARDIAC SERVICES ORDERA BLES documented in this encounter Visit Diagnoses Diagnosis Sinus bradycardia Other specified cardiac dysrhythmias documented in this encounter Care Teams Welding Machine Operator Electron Beam Relationship Specialty Start Date End Date Elyse Paredes MD PCP - General Family Practice 12/22/13 04/21/22 [address] [place] [address] documented as of this encounter
--- OUTSIDE RECORDS SUMMARY | 2022-07-09 14:22 | XMS_ITS | Encounter Summary ---
:1950 Author Organization [place] Address [address] [place] [address] Care Team Providers Name Role Phone Elyse Paredes MD Primary Care Provider Encounter Details Date Type Department Care Team Description 04/25/2018 Ambulatory - [facility] S/P TAVR [facility] Heart [facility] St. Perezu dorota (transcatheter aortic [address] valve replacement) [place] [address] Social History Tobacco Use Types Packs/Day Years Used Date Smoking Tobacco: Never Assessed Sex Assigned at Date Recorded Not on file documented as of this encounter Progress Notes Gabrielle Golden RN - 04/25/2018 1:30 PM CDT INR 1.4 will increase dose to 5 mg M and F and 2.5 mg all other days. Retest in 3 weeks as pt is in [place]. After talking with pt and discussing history [...] lacement) documented in this encounter Care Teams Stage Electrician Relationship Specialty Start Date End Date Elyse Paredes MD PCP - General Family Practice 12/22/13 04/21/22 1540 [place] [address] documented as of this encounter
--- OUTSIDE RECORDS SUMMARY | 2022-07-09 14:22 | XMS_ITS | Encounter Summary ---
:1950 Author Organization [place] Address [address] [place] [address] Care Team Providers Name Role Phone Elyse Paredes MD Primary Care Provider Encounter Details Date Type Department Care Team Description 04/11/2018 Ambulatory - [facility] S/P TAVR ( transcatheter aortic valve replacement); [facility] Heart [facility] Paroxysmal atrial fibrillati on (H) [address] [address] Social History Tobacco Use Types [...] fibrillation documented in this encounter Care Teams Hop Weigher Relationship Specialty Start Date End Date Elyse Paredes MD PCP - General Family Practice 12/22/13 04/21/22 1544 [place] [address] documented as of this encounter
--- OUTSIDE RECORDS SUMMARY | 2022-07-09 14:22 | XMS_ITS | Encounter Summary ---
:1950 Author Organization [place] Address [address] [place] [address] Care Team Providers Name Role Phone Elyse Paredes MD Primary Care Provider Encounter Details Date Type Department Care Team Description 03/24/2018 Records - [facility] [address] [place] [phone] Social History Tobacco Use Types Packs/Day Years [...] Free T4 1.1 0.7 - 1.8 03/24/2018 [facility] ng/dL 11:17 PM CDT [facility] Specimen Anatomical Collection Method Collection Time Receive d Time (Source) Location / / Volume Laterality Blood specimen 03/23/2018 10:16 8 (specimen) AM CDT 10:39 PM CDT Elyse Paredes MD LAB - BLOOD ORDERABLES Performing Organization Address City/State/ZIP Code Phon [place] [address] [phone] [facility] [address] [facility] documented in this encounter Visit Diagnoses Not on filedocumented in this encounter Care Teams Swamper Relationship Specialty Start Date End Date Reggie, Elyse Armas MD PCP - General Family Practice 12/22/13 04/21/22 [address] [place] [address] documented as of this encounter
--- OUTSIDE RECORDS SUMMARY | 2022-07-09 14:22 | XMS_ITS | Encounter Summary ---
:1950 Author Organization [place] Address [address] [place] [address] Care Team Providers Name Role Phone Elyse Paredes MD Primary Care Provider Reason for Visit Reason Comments Other Encounter Details Date Type Department Care Team Description 04/25/2018 Communication - [facility] Michelle, Lorenar, Other [facility] MD 1600 [facility] [address] [place] [address] Social History Tobacco Use Types Packs/Day Years Used Date Smoking Tobacco: Never Assessed Sex Assigned at Date Recorded Not on file documented as of this encounter Plan of Treatment Not on filedocumented as of this encounter Visit Diagnoses Diagnosis Coronary artery disease involving hughes coronary artery of hughes heart, angina presence unspecified documented in this encounter Care Teams Tumbling And Rolling Supervisor Relationship Specialty Start Date End Date Elyse Paredes MD PCP - General Family Practice 12/22/13 04/21/22 1540 [place] [address] documented as of this encounter
--- OUTSIDE RECORDS SUMMARY | 2022-07-09 14:22 | XMS_ITS | Encounter Summary ---
:1950 Author Organization [place] Address [address] [place] [address]. [place] [address] Care Team Providers Name Role Phone Elyse Paredes MD Primary Care Provider Encounter Details Date Type Department Care Team Description 05/17/2018 Ambulatory - [facility] Heart [address] [address] Social History Tobacco Use [...] on filedocumented in this encounter Care Teams Rotary Helper Relationship Specialty Start Date End Date Elyse Paredes MD PCP - General Family Practice 12/22/13 04/21/22 1540 [place], [place] [id number] documented as of this encounter
--- OUTSIDE RECORDS SUMMARY | 2022-07-09 14:22 | XMS_ITS | Encounter Summary ---
:1950 Author Organization [place] Address [address] [place] [address]. [place] [address] Care Team Providers Name Role Phone Dagmar Kang MD Unavailable Elyse Paredes MD Primary Care Provider Encounter Details Date Type Department Care Team Description 04/07/2018 Records - [facility] CONVERSION Provider, Karthik raya Social History Tobacco Use Types Packs/Day Years Used Date Smoking Tobacco: Never Assessed Sex Assigned at Date Recorded Not on file documented as of this encounter Plan of Treatment Not on filedocumented as of this encounter Visit Diagnoses Not on filedocumented in this encounter Care Teams Deputy Chief Magistrate Relationship Specialty Start Date End Date Elyse Paredes MD PCP - General Family Practice 12/22/13 04/21/22 1540 [place] [address] Dagmar Kang MD Assigned Heart and 02/14/21 02/27/22 [address] [facility] BL, Vascular Provider [address] [place] [address] documented as of this encounter
--- OUTSIDE RECORDS SUMMARY | 2022-07-09 14:22 | XMS_ITS | Encounter Summary ---
:1950 Author Organization [place] Address [address] [place] [address] Care Team Providers Name Role Phone Elyse Paredes MD Primary Care Provider Encounter Details Date Type Department Care Team Description 01/26/2018 Ambulatory - [facility] Elyse Paredes MD [address] [place] [address] S/P [facility] Provider, Historical (transcatheter [address] replacement) [place] [phone] Social History Tobacco Use Types Packs/Day Years Used Date Smoking Tobacco: Never Assessed Sex Assigned at Date Recorded Not on file documented as of this encounter Plan of Treatment Not on filedocumented as of this encounter Visit Diagnoses Diagnosis S/P TAVR (transcatheter aortic valve rep lacement) documented in this encounter Care Teams Prototype Sewer Relationship Specialty Start Date End Date Elyse Paredes MD PCP - General Family Practice 12/22/13 04/21/22 [address]40 [place] [address] documented as of this encounter
--- OUTSIDE RECORDS SUMMARY | 2022-07-09 14:22 | XMS_ITS | Encounter Summary ---
:1950 Author Organization [place] Address [address] [place] [address] Care Team Providers Name Role Phone Elyse Paredes MD Primary Care Provider Encounter Details Date Type Department Care Team Description 05/19/2018 [facility] Paroxysmal atrial [facility] Heart [facility] fibrillation (H) [address] [address] Social History Tobacco Use Types [...] a dose with time change. Please call [phone] with dosing ins tructions. GIUSEPPE GOYAL Specimen (Source) Anatomical Collection Method Collection Time Re ceived Time Location / / Volume Laterality Blood specimen 05/19/2018 10:49 (specimen) AM CDT NicoleLauren Salazar APRN GYM INSTRUCTOR LAB - BLOOD ORDERABLES documented in this encounter Visit Diagnoses Diagnosis Paroxysmal atrial fibrillation (H) Atrial fibrillation documented in this encounter Care Teams Property Management Specialist Relationship Specialty Start Date End Date Elyse Paredes MD PCP - General Family Practice 12/22/13 04/21/22 [address] [place] [address] documented as of this encounter
--- OUTSIDE RECORDS SUMMARY | 2022-07-09 14:22 | XMS_ITS | Encounter Summary ---
:1950 Author Organization [place] Address [address] [place] [address]. [place] [address] Care Team Providers Name Role Phone Dagmar Kang MD Unavailable Elyse Paredes MD Primary Care Provider Encounter Details Date Type Department Care Team Description 01/26/2018 Records - [facility] CONVERSION Provider, Karthik raya Social History Tobacco Use Types Packs/Day Years Used Date Smoking Tobacco: Never Assessed Sex Assigned at Date Recorded Not on file documented as of this encounter Plan of Treatment Not on filedocumented as of this encounter Visit Diagnoses Not on filedocumented in this encounter Care Teams Funeral Home Location Manager Relationship Specialty Start Date End Date Elyse Paredes MD PCP - General Family Practice 12/22/13 04/21/22 1540 [place] [address] Dagmar Kang MD Assigned Heart and 02/14/21 02/27/22 [address] [facility] [address], Vascular Provider [address] [place] [address] documented as of this encounter
--- OUTSIDE RECORDS SUMMARY | 2022-07-09 14:22 | XMS_ITS | Encounter Summary ---
:1950 Author Organization [place] Address [address] [place] [address]. [place] [address] Care Team Providers Name Role Phone Elyse Paredes MD Primary Care Provider Encounter Details Date Type Department Care Team Description 01/26/2018 Ambulatory - [facility] Heart [address] [address] Social History Tobacco [...] filedocumented in this encounter Care Teams Market Consultant Relationship Specialty Start Date End Date Elyse Paredes MD PCP - General Family Practice 12/22/13 04/21/22 1540 [place], [place] [address] documented as of this encounter
--- OUTSIDE RECORDS SUMMARY | 2022-07-09 14:22 | XMS_ITS | Encounter Summary ---
:1950 Author Organization [place] Address [address] [place] [address] Care Team Providers Name Role Phone Elyse Paredes MD Primary Care Provider Encounter Details Date Type Department Care Team Description 05/20/2018 [facility] Heart [facility] Nicole Ng APRN [facility] 1600 [facility] 1600 [facility] [address] [place] [address] [phone] Social History Tobacco Use Types Packs/Day Years Used Date Smoking Tobacco: Never Assessed Sex Assigned at Date Recorded Not on file documented as of this encounter Plan of Treatment Not on filedocumented as of this encounter Visit Diagnoses Not on filedocumented in this encounter Care Teams Market Development Manager Relationship Specialty Start Date End Date Elyse Paredes MD PCP - General Family Practice 12/22/13 04/21/22 1540 [place] [address] documented as of this encounter
--- OUTSIDE RECORDS SUMMARY | 2022-07-09 14:22 | XMS_ITS | Encounter Summary ---
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 Contact Pt for dosing instruction @ [phone] anytime. AI STAFF ENGINEER Specimen (Source) Anatomical Collection Method Collection Time Re ceived Time Location / / Volume Laterality Blood specimen 01/19/2018 11:35 (specimen) AM CDT Ankush Martinez MD LAB - BLOOD ORDERABLES documented in this encounter Visit Diagnoses Diagnosis [facility]DC current use of anticoagulant t herapy documented in this encounter Care Teams Materials Planner Relationship Specialty Start Date End Date Reggie, Elyse Armas MD PCP - General Family Practice 12/22/13 04/21/22 [address] [place] [address] documented as of this encounter
--- OUTSIDE RECORDS SUMMARY | 2022-07-09 14:22 | XMS_ITS | Encounter Summary ---
:1950 Author Organization [place] Address [address] [place] [address]. [place] [address] Care Team Providers Name Role Phone Elyse Paredes MD Primary Care Provider Encounter Details Date Type Department Care Team Description 06/03/2018 [facility] od 1600 [facility] [address] [place] [address] Social History Tobacco Use Types Packs/Day Years Used Date Smoking Tobacco: Never Assessed Sex Assigned at Date Recorded Not on file documented as of this encounter Plan of Treatment Not on filedocumented as of this encounter Visit Diagnoses Not on filedocumented in this encounter Care Teams Orthotic Aide Relationship Specialty Start Date End Date Elyse Paredes MD PCP - General Family Practice 12/22/13 04/21/22 1540 [place] [address] documented as of this encounter
--- OUTSIDE RECORDS SUMMARY | 2022-07-09 14:22 | XMS_ITS | Encounter Summary ---
:1950 Author Organization [place] Address [address] [place] [address] Care Team Providers Name Role Phone Elyse [...] filedocumented in this encounter Care Teams Retail Team Leader Relationship Specialty Start Date End Date Elyse Paredes MD PCP - General Family Practice 12/22/13 04/21/22 [address] [place] [address] documented as of this encounter
--- OUTSIDE RECORDS SUMMARY | 2022-07-09 14:22 | XMS_ITS | Encounter Summary ---
:1950 Author Organization [place] Address [address] [place] [address] Care Team Providers Name Role Phone Elyse Paredes MD Primary Care Provider Encounter Details Date Type Department Care Team Description 04/18/2018 Ambulatory - [facility] S/P TAVR Health system Heart [facility] (transcatheter aortic [address] valve replacement) [place] [address] Social History Tobacco Use Types [...] lacement) documented in this encounter Care Teams Medical Staff Manager Relationship Specialty Start Date End Date Elyse Paredes MD PCP - General Family Practice 12/22/13 04/21/22 1540 [place] [address] documented as of this encounter
--- OUTSIDE RECORDS SUMMARY | 2022-07-09 14:22 | XMS_ITS | Encounter Summary ---
:1950 Author Organization [place] Address [address] [place] [address] Care Team Providers Name Role Phone Elyse Paredes MD Primary Care Provider Encounter Details Date Type Department Care Team Description 02/09/2018 Ambulatory - [facility] [place], Sinus juan pablo ycardia [facility] Nicole Ng APRN [facility] [address] [place], [place] [address] [address] [place], [place] [phone] [address] Social History Tobacco Use Types Packs/Day Years Used Date Smoking Tobacco: Never Assessed Sex Assigned at Date Recorded Not on file documented as of this encounter Plan of Treatment Not on filedocumented as of this encounter Visit Diagnoses Diagnosis Sinus bradycardia Other specified cardiac dysrhythmias documented in this encounter Care Teams Deck Officer Relationship Specialty Start Date End Date Elyse Paredes MD PCP - General Family Practice 12/22/13 04/21/22 1540 [place] [address] documented as of this encounter
--- OUTSIDE RECORDS SUMMARY | 2022-07-09 14:22 | XMS_ITS | Encounter Summary ---
:1950 Author Organization [place] Address [address] [place] [address]. [place] [address] Care Team Providers Name Role Phone Dagmar Kang MD Unavailable Elyse Paredes MD Primary Care Provider Encounter Details Date Type Department Care Team Description 05/17/2018 Records - [facility] CONVERSION Provider, Karthik raya Social History Tobacco Use Types Packs/Day Years Used Date Smoking Tobacco: Never Assessed Sex Assigned at Date Recorded Not on file documented as of this encounter Plan of Treatment Not on filedocumented as of this encounter Visit Diagnoses Not on filedocumented in this encounter Care Teams Bunghole Borer Relationship Specialty Start Date End Date Elyse Paredes MD PCP - General Family Practice 12/22/13 04/21/22 15[address] [place] [address] Dagmar Kang MD Assigned Heart and 02/14/21 02/27/22 1600 [facility] [address], Vascular Provider [address] [place] [address] documented as of this encounter
--- OUTSIDE RECORDS SUMMARY | 2022-07-09 14:22 | XMS_ITS | Encounter Summary ---
:1950 Author Organization [place] Address [address] [place] [address] Care Team Providers Name Role Phone Elyse Paredes MD Primary Care Provider Encounter Details Date Type Department Care Team Description 03/23/2018 [facility] [address] [address] [phone] Social History Tobacco Use Types Packs/Day Years [...] Results Lipid Profile (03/23/2018 9:32 AM CDT) [facility] Method Time Signature Cholesterol 165 <=199 03/23/2018 HEALTH mg/dL 5:04 PM CDT [facility] Triglycerides 148 <=149 03/23/2018 HEALTH mg/dL 5:04 PM CDT [facility] Direct Measure 60 >=50 03/23/2018 HEALTH HDL mg/dL 5:04 PM T [facility] LDL Cholesterol 75 <=129 03/23/2018 HEALTH Calculated mg/dL 5:04 PM T [facility] Patient Fasting > Unknown 03/23/2018 HEALTH 8hrs? 5:04 PM CDT [facility] Specimen Anatomical Collection Method Collection Time Receive d Time (Source) Location / / Volume Laterality Blood specimen 03/23/2018 9:32 AM 018 2:47 (specimen) CDT PM CDT lEyse Paredes MD LAB - BLOOD ORDERABLES Performing Organization Address City/State/[facility] Code Phon e Number [place] [address] [address] [facility] (ABNORMAL) Basic metabolic panel (03/23/2018 9:32 AM CDT) [facility] Method Time Signature Sodium 141 136 - 145 03/23/2018 HEALTH mmol/L 5:04 PM T [facility] Potassium 4.8 3.5 - 5.0 03/23/2018 HEALTH mmol/L 5:[address] [facility] Chloride 104 98 - 107 03/23/2018 HEALTH mmol/L 5:[address] [facility] Carbon Dioxide 25 22 - 31 03/23/2018 HEALTH (CO2) mmol/L 5:[address] [facility] Anion Gap 12 5 - 18 03/23/2018 HEALTH mmol/L 5:[address] [facility] Glucose 162 (H) 70 - 125 03/23/2018 HEALTH mg/dL 5:04 PM T [facility] Calcium 9.8 8.5 - 10.5 03/23/2018 HEALTH mg/dL 5:04 PM T [facility] Urea Nitrogen 22 8 - 22 03/23/2018 [facility] mg/dL 5:04 PM CDT [facility] Creatinine 1.20 (H) 0.60 - 03/23/2018 HEALTH 1.10 mg/dL 5:04 PM CDT [facility] GFR Estimate If 55 (L) >60 03/23/2018 HEALTH Black mL/min/1.7 5:04 PM CDT [address] LABORATORY GFR Estimate 45 (L) >60 03/23/2018 HEALTH mL/min/1.7 5:04 PM CDT [address] LABORATORY Specimen Anatomical Collection Method Collection Time Receive d Time (Source) Location / / Volume Laterality Blood specimen 03/23/2018 9:32 AM 018 2:47 (specimen) CDT PM CDT Narrative O LAB - 03/23/2018 5:04 PM CDT Fasting Glucose reference range is 70-99 mg/dL per [employer] (ADA) charles martinez. Elyse Paredes MD LAB - BLOOD ORDERABLES Performing Organization Address City/State/[facility] Phon [place] [address] LAB [address] [place] [address], [facility] (ABNORMAL) TSH (03/23/2018 9:32 AM CDT) P athologist Signature TSH 5.91 (H) 0.30 - 5.00 03/23/2018 [facility] uIU/mL 5:17 PM CDT [facility] Specimen Anatomical Collection Method Collection Time Receive d Time (Source) Location / / Volume Laterality Blood specimen 03/23/2018 9:32 AM 018 2:47 (specimen) CDT PM CDT Elyse Paredes MD LAB - BLOOD ORDERABLES Performing Organization Address City/[facility]/ZIP [facility] [place] [address] [phone] [facility] [address] [place] [address] [address] [place] [address] [facility] documented in this encounter Visit Diagnoses Not on filedocumented in this encounter Care Teams Radio Sportscaster Relationship Specialty Start Date End Date Elyse Paredes MD PCP - General Family Practice 12/22/13 04/21/22 [address] [place], [place] [id number] documented as of this encounter
--- OUTSIDE RECORDS SUMMARY | 2022-07-09 14:22 | XMS_ITS | Encounter Summary ---
:1950 Author Organization [place] Address [address] [place] [address]. [place] [address] Care Team Providers Name Role Phone Elyse Paredes MD Primary Care Provider Reason for Visit Reason Comments Follow Up Encounter Details Date Type Department Care Team Description 03/29/2018 Communication - [facility] [place], Follow Up [facility] Nicole Ng APRN [facility] 1600 [facility] 1600 [facility] [address] [place] [address] [phone] Social History Tobacco Use Types Packs/Day Years Used Date Smoking Tobacco: Never Assessed Sex Assigned at Date Recorded Not on file documented as of this encounter Plan of Treatment Not on filedocumented as of this encounter Visit Diagnoses Diagnosis Benign essential hypertension Essential hypertension, benign documented in this encounter Care Teams Extruding Department Supervisor Relationship Specialty Start Date End Date Elyse Paredes MD PCP - General Family Practice 12/22/13 04/21/22 1540 [place] [address] documented as of this encounter
--- OUTSIDE RECORDS SUMMARY | 2022-07-09 14:22 | XMS_ITS | Encounter Summary ---
:1950 Author Organization [place] Address [address] [place] [address] Care Team Providers Name Role Phone Elyse Paredes MD Primary Care Provider Encounter Details Date Type Department Care Team Description 02/16/2018 Ambulatory - [facility] S/P coronary artery [facility] [address] [place] [address] Social History Tobacco Use Types [...] eat regular healthy meals and to contact Plumber Gasfitter's office today to discuss all. Vital signs stable and felt back to normal with glucose 165 upon leaving dept. Progress note faxed to Dr. Shin, fast food team member. documented in this encounter Plan of Treatment [...] athologist Signature GLUCOSE BY 96 mg/dL 02/16/2018 [facility] METER POCT 12:24 PM CDT HOSPITAL [...] Organization Address City/State/ZIP Code Phon e Number [facility] POCT RESULTS [address] [place] [address] Glucose by meter POCT (02/16/2018 12:08 PM CDT) athologist Signature GLUCOSE BY 43 mg/dL 02/16/2018 [facility] METER POCT 12:08 PM CDT [facility] POCT RESULTS Comment: Reference Ranges ? [...] Organization Address City/State/ZIP Code Phon e Number [facility] POCT RESULTS [address] [place] [address] documented in this encounter Visit Diagnoses Diagnosis S/P coronary artery stent placement Postsurgical percutaneous transluminal c oronary angioplasty status documented in this encounter Care Teams Firebrick Layer Relationship Specialty Start Date End Date Elyse Paredes MD PCP - General Family Practice 12/22/13 04/21/22 1540 [place], [place] [id number] documented as of this encounter
--- OUTSIDE RECORDS SUMMARY | 2022-07-09 14:22 | XMS_ITS | Encounter Summary ---
:1950 Author Organization [place] Address [address] [place] [address] Care Team Providers Name Role Phone Elyse Paredes MD Primary Care Provider Reason for Visit Reason Comments Follow Up Encounter Details Date Type Department Care Team Description 01/27/2018 Office Visit - [facility] Jun Salazar atrial fibrillation (H); [facility] GRIFFIN Ruiz (dyspn ea on exertion); Fransico HYDE DEDE on CPAP; [address] hypertension [place], [place] [phone] [place], [place] [phone] [address] Social History Tobacco Use Types Packs/Day Years [...] 12:10 PM Encounter Date: 01/27/2018 Status: Signed Oracle Bpm Developer: Nicole Salazar CNP (Nurse Practitioner) Click to link to [facility] ELECTROPHYSIOLOGY NOTE Assessment/Recommendations Assessment/Plan: Diagnoses and all [...] to be addressed when she sees Dr. Kagn. Due to high [id number] score, I would be very reluctant to [...] any reoccurrence of A. fib on amiodarone [id number] score of 5 and on chronic warfarin. Follow up in clinic with Ashley as planned next Wednesday and then see Dr. Kang for new consult as noninvasive locomotive electrician to follow with routinely in 3 months. 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 She is enjoying correction. She reports that she had GI side effects on Metformin and unable to tolerate even long-acting form of it. She was recently started on injectable trulicity and hopes to lose some weight as she has gained 12 pounds off of metformin. She is motivated to get healthier in her correction so she has joined cardiac rehab as self-pay. She is going to [place] in April and knows that this trip [...] ms QTC CALCULATION (BEZET) 436 ms P [place] degrees R AXIS 5 degrees T AXIS 28 degrees MUSE DIAGNOSIS Sinus rhythm with Premature atrial complexes Otherwise normal ECG When compared with ECG of 08-SEP-2017 14:43, Premature atrial complexes are now Present Left bundle branch block is no longer Present Confirmed by WINDY PIERRE MD LOC:BUSHRA ([id number]) on 09/27/2017 4:52:27 PM Problem List: Patient Active Problem List Diagnosis ? HLD (hyperlipidemia) ? CASTRO (dyspnea on exertion) ? Coronary artery disease involving [place] coronary artery of [place] heart, angina presence unspecified ? DEDE on [...] Coronary Angiogram; Surgeon: Ankush Martinez MD; Location: [facility] Machining Technician; Service: ? CV TRANSFEMORAL TRANSCATHETER VALVE REPLACEMENT N/A 07/06/2017 Procedure: Transfemoral Transcatheter Aortic Valve Replacement; Surgeon: Ankush Martinez MD; Location: [facility] Machining Technician; Service: ? TOTAL KNEE ARTHROPLASTY Bilateral Family [...] inherent to the software. Nicole Salazar RN, [facility] Electrophysiology [phone] documented in this encounter Plan of Treatment Not on filedocumented as of this encounter Visit Diagnoses Diagnosis Persistent atrial fibrillation (H) Atrial fibrillation CASTRO (dyspnea on exertion) Other dyspnea and respiratory abnormalit y DEDE on CPAP Obstructive sleep apnea (adult) (pediatr ic) Essential hypertension Unspecified essential hypertension documented in this encounter Care Teams Supervisor Cutting Department Relationship Specialty Start Date End Date Elyse Paredes MD PCP - General Family Practice 12/22/13 04/21/22 [address] [place] [address] documented as of this encounter
--- OUTSIDE RECORDS SUMMARY | 2022-07-09 14:23 | XMS_ITS | Encounter Summary ---
:1950 Author Organization [place] Address [address] [place] [address] Care Team Providers Name Role Phone Elyse Paredes MD Primary Care Provider Encounter Details Date Type Department Care Team Description 09/27/2017 Amb[facility] - [facility] S/P TAVR [address] (transcatheter aortic [place], [place] valve replace ment) [address] Social History [...] 129.7 kg (286 lb) 09/27/2017 1:00 PM CONSULTING ACTUARY Height - - Body Mass Index 50.66 09/27/2017 10:33 AM CONSULTING ACTUARY documented in this encounter Plan of Treatment Not on filedocumented as of this encounter Visit Diagnoses Diagnosis S/P TAVR (transcatheter aortic valve rep lacement) documented in this encounter Care Teams Cardiac Care Nurse Relationship Specialty Start Date End Date Elyse Paredes MD PCP - General Family Practice 12/22/13 04/21/22 1540 [place], [place] [id number] documented as of this encounter
--- OUTSIDE RECORDS SUMMARY | 2022-07-09 14:23 | XMS_ITS | Encounter Summary ---
:1950 Author Organization [place] Address [address] [place] [address] Care Team Providers Name Role Phone Elyse Paredes MD Primary Care Provider Encounter Details Date Type Department Care Team Description 09/29/2017 Ambulatory - [facility] S/P coronary artery stent pl acement; [address] S/P TAVR (transcatheter aort ic valve replacement) [place] [phone] Social History Tobacco Use Types Packs/Day Years [...] 130.2 kg (287 lb) 09/29/2017 3:00 PM MENHADEN VESSEL PILOT Height - - Body Mass Index 50.84 09/27/2017 10:33 AM MENHADEN VESSEL PILOT documented in this encounter Plan of Treatment Not on filedocumented as of this encounter Visit Diagnoses Diagnosis S/P coronary artery stent placement Postsurgical percutaneous transluminal c oronary angioplasty status S/P TAVR (transcatheter aortic valve rep lacement) documented in this encounter Care Teams Master Chef Relationship Specialty Start Date End Date Elyse Paredes MD PCP - General Family Practice 12/22/13 04/21/22 [address] [place] [address] documented as of this encounter
--- OUTSIDE RECORDS SUMMARY | 2022-07-09 14:23 | XMS_ITS | Encounter Summary ---
:1950 Author Organization [place] Address [address] [place] [address] Care Team Providers Name Role Phone Elyse Paredes MD Primary Care Provider Reason for Visit Reason Comments Follow Up Encounter Details Date Type Department Care Team Description 09/17/2017 Office Visit - [facility] Jun Salazar nt atrial fibrillation (H); [facility] Nicole Ng APRN Essential hype rtension; [place] COMPUTING ARCHITECT Chronic diastolic congestive heart failu re (H); [address] [facility] [address] [facility] S/P TAVR (tra nscatheter aortic valve replacement) [place] [address] [place] [address] [phone] Social History Tobacco Use Types Packs/Day Years [...] (285 lb 12.8 oz) 09/17/2017 8:23 AM ADMINISTRATIVE MANAGER shoes on Height 160 cm (5' 3) 09/17/2017 8:23 AM ADMINISTRATIVE MANAGER shoes on Body Mass Index 50.63 09/17/2017 8:23 AM ADMINISTRATIVE MANAGER documented in this encounter Progress Notes Nicole Salazar APRN COMPUTING ARCHITECT - 09/17/2017 8:30 AM CST [facility] Arrhythmia Clinic Assessment/Plan: Diagnoses and all [...] if any. Will be on long-term anticoagulation. [id number] score of 5. Been stable on warfarin. [...] before meals. 40 minutes were spent in [id number] counseling regarding above diagnoses and options for treatment. Subjective: I had the opportunity to see Marci Diaz at the [facility]. Marci Diaz is [...] on exertion) ??? Coronary artery disease involving [place] coronary artery of [place] heart, angina presence unspecified ??? DEDE on [...] Surgeon: Ankush Martinez MD; Location: [facility] Tree Wrapper; Service: ??? CV TRANSFEMORAL TRANSCATHETER VALVE REPLACEMENT N/A 07/06/2017 Procedure: Transfemoral Transcatheter Aortic Valve Replacement; Surgeon: Ankush Martinez MD; Location: [facility] Tree Wrapper; Service: ??? TOTAL KNEE ARTHROPLASTY Bilateral Social [...] ms QTC CALCULATION (BEZET) 441 ms P [place] 15 degrees R AXIS 30 degrees T AXIS 4 degrees MUSE DIAGNOSIS Sinus bradycardia Left bundle branch block Abnormal ECG When compared with ECG of 26-AUG-2017 14:20, Left bundle branch block is now Present Confirmed by SAMANTHA ROCKWELL MD LOC:JN ([id number]) on 09/08/2017 4:16:01 PM TSH: No results [...] inherent to the software. TASHIA SALAZAR RN, [facility] [phone] NISTRATIVE MANAGER documented in this encounter Plan of Treatment Not on filedocumented as of this encounter Visit Diagnoses Diagnosis Persistent atrial fibrillation (H) Atrial fibrillation Essential hypertension Unspecified essential hypertension Chronic diastolic congestive heart failu re (H) Chronic diastolic heart failure S/P TAVR (transcatheter aortic valve rep lacement) documented in this encounter Care Teams Fresh Work Inspector Relationship Specialty Start Date End Date Elyse Paredes MD PCP - General Family Practice 12/22/13 04/21/22 1540 [place] [address] documented as of this encounter
--- OUTSIDE RECORDS SUMMARY | 2022-07-09 14:23 | XMS_ITS | Encounter Summary ---
:1950 Author Organization [place] Address [address] [place] [address] Care Team Providers Name Role Phone Elyse Paredes MD Primary Care Provider Encounter Details Date Type Department Care Team Description 10/01/2017 Ambulatory - [facility] S/P coronary artery [facility] [address] [place] [address] Social History Tobacco Use Types [...] 131.1 kg (289 lb) 10/01/2017 3:00 PM PHARMACY BILLING ADJUDICATOR Height - - Body Mass Index 51.19 09/27/2017 10:33 AM PHARMACY BILLING ADJUDICATOR documented in this encounter Plan of Treatment Not on filedocumented as of this encounter Visit Diagnoses Diagnosis S/P coronary artery stent placement Postsurgical percutaneous transluminal c oronary angioplasty status documented in this encounter Care Teams Media Planner / Buyer Relationship Specialty Start Date End Date Elyse Paredes MD PCP - General Family Practice 12/22/13 04/21/22 1540 [place], [place] [id number] documented as of this encounter
--- OUTSIDE RECORDS SUMMARY | 2022-07-09 14:23 | XMS_ITS | Encounter Summary ---
:1950 Author Organization [place] Address [address] [place] [address] Care Team Providers Name Role Phone Elyse Paredes MD Primary Care Provider Encounter Details Date Type Department Care Team Description 10/08/2017 Ambulatory - [facility] S/P TAVR [address] (transcatheter aortic [place], [place] valve replace ment) [phone] Social History [...] 132 kg (291 lb) 10/08/2017 3:00 PM TIMBER SIZER Height - - Body Mass Index 51.55 09/27/2017 10:33 AM TIMBER SIZER documented in this encounter Plan of Treatment Not on filedocumented as of this encounter Visit Diagnoses Diagnosis S/P TAVR (transcatheter aortic valve rep lacement) documented in this encounter Care Teams Square Dance Caller Relationship Specialty Start Date End Date Elyse Paredes MD PCP - General Family Practice 12/22/13 04/21/22 1540 [place] [address] documented as of this encounter
--- OUTSIDE RECORDS SUMMARY | 2022-07-09 14:23 | XMS_ITS | Encounter Summary ---
:1950 Author Organization [place] Address [address] [place] [address]. [place] [address] Care Team Providers Name Role Phone Dagmar Kang MD Unavailable Elyse Paredes MD Primary Care Provider Encounter Details Date Type Department Care Team Description 10/26/2017 Records - [facility] CONVERSION Provider, Karthik raya Social History Tobacco Use Types Packs/Day Years Used Date Smoking Tobacco: Never Assessed Sex Assigned at Date Recorded Not on file documented as of this encounter Plan of Treatment Not on filedocumented as of this encounter Visit Diagnoses Not on filedocumented in this encounter Care Teams Credit Control Administrator Relationship Specialty Start Date End Date Elyse Paredes MD PCP - General Family Practice 12/22/13 04/21/22 1540 [place] [address] Dagmar Kang MD Assigned Heart and 02/14/21 02/27/22 [address] [facility] [address], Vascular Provider [address] [place] [address] documented as of this encounter
--- OUTSIDE RECORDS SUMMARY | 2022-07-09 14:23 | XMS_ITS | Encounter Summary ---
:1950 Author Organization [place] Address [address] [place] [address] Care Team Providers Name Role Phone Elyse Paredes MD Primary Care Provider Encounter Details Date Type Department Care Team Description 10/13/2017 [facility] S/P TAVR [address] (transcatheter aortic [place], [place] valve [...] Body Mass Index 51.02 09/27/2017 10:33 AM DISH NETWORK INSTALLER documented in this encounter Plan of Treatment Not on filedocumented as of this encounter Visit Diagnoses Diagnosis S/P TAVR (transcatheter aortic valve rep lacement) documented in this encounter Care Teams Workforce Manager Relationship Specialty Start Date End Date Elyse Paredes MD PCP - General Family Practice 12/22/13 04/21/22 1540 [place], [place] [id number] documented as of this encounter
--- OUTSIDE RECORDS SUMMARY | 2022-07-09 14:23 | XMS_ITS | Encounter Summary ---
:1950 Author Organization [place] Address [address] [place] [address] Care Team Providers Name Role Phone Elyse Paredes MD Primary Care Provider Encounter Details Date Type Department Care Team Description 10/11/2017 Ambulatory - [facility] S/P TAVR [facility] [place] (transcatheter aortic [address] valve replacement) [place] [address] Social History Tobacco Use [...] lacement) documented in this encounter Care Teams Retail Coverage Merchandiser Relationship Specialty Start Date End Date Elyse Paredes MD PCP - General Family Practice 12/22/13 04/21/22 5081 [place] [address] documented as of this encounter
--- OUTSIDE RECORDS SUMMARY | 2022-07-09 14:23 | XMS_ITS | Encounter Summary ---
:1950 Author Organization [place] Address [address] [place] [address] Care Team Providers Name Role Phone Elyse Paredes MD Primary Care Provider Encounter Details Date Type Department Care Team Description 09/10/2017 Ambulatory - [facility] S/P TAVR [address] (transcatheter aortic [place], [place] valve replace ment) [address] Social History [...] 129.3 kg (285 lb) 09/10/2017 3:00 PM HEALTH CENTER ASSOCIATE Height - - Body Mass Index 50.49 09/01/2017 2:05 PM HEALTH CENTER ASSOCIATE documented in this encounter Plan of Treatment Not on filedocumented as of this encounter Procedures Procedure Name Priority Date/Time Associated Diagnosis Comme nts GLUCOSE BY METER Routine 09/10/2017 3:58 PM Resul ts for this POCT HEALTH CENTER ASSOCIATE procedure are i n the results section. documented in this encounter Results Glucose by meter POCT (09/10/2017 3:58 PM HEALTH CENTER ASSOCIATE) P athologist Signature GLUCOSE BY 106 mg/dL 09/10/2017 [facility] METER POCT 3:58 PM HEALTH CENTER ASSOCIATE HOSPITAL POCT RESULTS Comment: Reference Ranges ? [...] specimen 09/10/2017 3:58 PM 018 4:04 (specimen) HEALTH CENTER ASSOCIATE PM HEALTH CENTER ASSOCIATE Historical Provider LAB - ENTER/EDIT POCT Performing Organization Address City/State/ZIP Code Phon e Number [facility] POCT RESULTS [address] [place] [address] documented in this encounter Visit Diagnoses Diagnosis S/P TAVR (transcatheter aortic valve rep lacement) documented in this encounter Care Teams Community Health Nurse Supervisor Relationship Specialty Start Date End Date Elyse Paredes MD PCP - General Family Practice 12/22/13 04/21/22 [address] [place] [address] documented as of this encounter
--- OUTSIDE RECORDS SUMMARY | 2022-07-09 14:23 | XMS_ITS | Encounter Summary ---
:1950 Author Organization [place] Address [address] [place] [address] Care Team Providers Name Role Phone Elyse Paredes MD Primary Care Provider Encounter Details Date Type Department Care Team Description 11/19/2017 Ambulatory - [facility] S/P TAVR [facility] Perezu [place] (transcatheter aortic [address] valve replacement) [place] [address] Social History Tobacco Use Types [...] lacement) documented in this encounter Care Teams Residential Mortgage Manager Relationship Specialty Start Date End Date Elyse Paredes MD PCP - General Family Practice 12/22/13 04/21/22 1540 [place] [address] documented as of this encounter
--- OUTSIDE RECORDS SUMMARY | 2022-07-09 14:23 | XMS_ITS | Encounter Summary ---
:1950 Author Organization [place] Address [address] [place] [address] Care Team Providers Name Role Phone Elyse Paredes MD Primary Care Provider Encounter Details Date Type Department Care Team Description 09/15/2017 [facility] T[facility]R (transcatheter aort ic valve replacement); [address] S/P coronary [place] [address] Social History Tobacco Use [...] 129.3 kg (285 lb) 09/15/2017 2:00 PM WATER RESOURCE MANAGER Height - - Body Mass Index 50.49 09/01/2017 2:05 PM WATER RESOURCE MANAGER documented in this encounter Progress Notes Historical [...] 8:10 AM Encounter Date: 09/15/2017 Status: Attested Para Operator: Carrie Donaldson RN (Registered Nurse) Cosigner: Nicole [...] status documented in this encounter Care Teams Crossing Watchman Relationship Specialty Start Date End Date Elyse Paredes MD PCP - General Family Practice 12/22/13 04/21/22 [address] [place] [address] documented as of this encounter
--- OUTSIDE RECORDS SUMMARY | 2022-07-09 14:23 | XMS_ITS | Encounter Summary ---
:1950 Author Organization [place] Address [address] [place] [address] Care Team Providers Name Role Phone Elyse Paredes MD Primary Care Provider Encounter Details Date Type Department Care Team Description 09/24/2017 Ambulatory - [facility] S/P TAVR [address] (transcatheter aortic [place], [place] valve replace ment) [phone] Social History [...] 129.3 kg (285 lb) 09/24/2017 3:00 PM JEWELRY MODEL MAKER Height - - Body Mass Index 50.49 09/17/2017 8:23 AM JEWELRY MODEL MAKER documented in this encounter Plan of Treatment Not on filedocumented as of this encounter Visit Diagnoses Diagnosis S/P TAVR (transcatheter aortic valve rep lacement) documented in this encounter Care Teams Pharmacist In Charge Relationship Specialty Start Date End Date Elyse Paredes MD PCP - General Family Practice 12/22/13 04/21/22 1540 [place], [place] [id number] documented as of this encounter
--- OUTSIDE RECORDS SUMMARY | 2022-07-09 14:23 | XMS_ITS | Encounter Summary ---
:1950 Author Organization [place] Address [address] [place] [address] Care Team Providers Name Role Phone Elyse Paredes MD Primary Care Provider Encounter Details Date Type Department Care Team Description 10/22/2017 [facility]/P TAVR (transcatheter aort ic valve replacement); [address] S/P coronary [place] [phone] Social History Tobacco Use Types Packs/Day Years [...] Body Mass Index 50.49 09/27/2017 10:33 AM PUBLIC WORKS TECHNICIAN documented in this encounter Progress Notes Historical [...] plans to sign up for [facility] [place] to help her get in her weekly [...] apply to herself. PSYCHOSOCIAL Psychosocial Assessment: Discharge [facility] NASRIN Q of L Summary Score: [...] has plans to continue with [facility] [place] until the end of her school year.She [...] athologist Signature GLUCOSE BY 192 mg/dL 10/22/2017 [facility] METER POCT 3:04 PM CDT HOSPITAL POCT [...] CANCER CENTER POCT RESULTS [address] [place] [address] documented in this encounter Visit Diagnoses Diagnosis S/P TAVR (transcatheter aortic valve rep lacement) S/P coronary artery stent placement Postsurgical percutaneous transluminal c oronary angioplasty status documented in this encounter Care Teams Camp Housekeeper Relationship Specialty Start Date End Date Elyse Paredes MD PCP - General Family Practice 12/22/13 04/21/22 1540 [place] [address] documented as of this encounter
--- OUTSIDE RECORDS SUMMARY | 2022-07-09 14:23 | XMS_ITS | Encounter Summary ---
:1950 Author Organization [place] Address [address] [place] [address] Care Team Providers Name Role Phone Elyse Paredes MD Primary Care Provider Encounter Details Date Type Department Care Team Description 09/13/2017 Ambulatory - [facility] S/P TAVR [facility] Perezu [place] (transcatheter aortic [address] valve replacement) [place] [address] Social History Tobacco Use Types [...] next INR appointment and verbalized understanding JW ER PICKER documented in this encounter Plan of Treatment [...] Volume Blood specimen 09/13/2017 (specimen) Ruby Kirk HEALTH INSURANCE SPECIALIST MILKING MACHINE MECHANIC LAB - BLOOD ORDERABLES documented in this encounter Visit Diagnoses Diagnosis S/P TAVR (transcatheter aortic valve rep lacement) documented in this encounter Care Teams Plant Guide Relationship Specialty Start Date End Date Elyse Paredes MD PCP - General Family Practice 12/22/13 04/21/22 1540 [place] [address] documented as of this encounter
--- OUTSIDE RECORDS SUMMARY | 2022-07-09 14:23 | XMS_ITS | Encounter Summary ---
:1950 Author Organization [place] Address [address] [place] [address] Care Team Providers Name Role Phone Elyse Paredes MD Primary Care Provider Encounter Details Date Type Department Care Team Description 09/27/2017 Ambulatory - [facility] Brenda [place], A-fib (H) Heart [facility] Debby raya RN [address] [address] Social History Tobacco Use Types Packs/Day Years Used Date Smoking Tobacco: Never Assessed Sex Assigned at Date Recorded Not on file documented as of this encounter Plan of Treatment Not on filedocumented as of this encounter Visit Diagnoses Diagnosis A-fib (H) Atrial fibrillation documented in this encounter Care Teams Formal Service Waiter Relationship Specialty Start Date End Date Elyse Paredes MD PCP - General Family Practice 12/22/13 04/21/22 1540 [place] [address] documented as of this encounter
--- OUTSIDE RECORDS SUMMARY | 2022-07-09 14:23 | XMS_ITS | Encounter Summary ---
:1950 Author Organization [place] Address [address] [place] [address] Care Team Providers Name Role Phone Elyse Paredes MD Primary Care Provider Encounter Details Date Type Department Care Team Description 10/26/2017 Ambulatory - [facility] Heart [address] [address] Social History Tobacco Use [...] on filedocumented in this encounter Care Teams Chamber Magistrate Relationship Specialty Start Date End Date Elyse Paredes MD PCP - General Family Practice 12/22/13 04/21/22 1540 [place], [place] [id number] documented as of this encounter
--- OUTSIDE RECORDS SUMMARY | 2022-07-09 14:23 | XMS_ITS | Encounter Summary ---
:1950 Author Organization [place] Address [address] [place] [address] Care Team Providers Name Role Phone Elyse Paredes MD Primary Care Provider Encounter Details Date Type Department Care Team Description 09/17/2017 [facility] T[facility]R (transcatheter aort ic valve replacement); [address] S/[place] coronary [place] [address] Social History Tobacco Use Types [...] 129.3 kg (285 lb) 09/17/2017 2:00 PM IT PROGRAM AUDITOR Height - - Body Mass Index 50.49 09/17/2017 8:23 AM IT PROGRAM AUDITOR documented in this encounter Progress Notes Historical [...] (reports has met with DM educator / Incinerator Plant Laborer) Education Completed Nutrition Education Completed: Carbohydrate counting;Discussed small frequent meals and nutritional supplements;Label reading class;Low sodium diet (States has covered nutritional topics w/ Incinerator Plant Laborer) Goals Nutrition Goals (Next 30 days): Patient [...] class;Meal Planning class (Has the info from Incinerator Plant Laborer. Needs to follow better) Tobacco Risk Factor: NA Risk Factor Follow-up Follow-up/Discharge: Declined any further Q&A with Customer Service Analyst for now. PSYCHOSOCIAL Psychosocial Assessment: Reassessment [facility] Q of L Summary Score: 28 [...] status documented in this encounter Care Teams Nuclear Fuel Processing Technician Relationship Specialty Start Date End Date Elyse Paredes MD PCP - General Family Practice 12/22/13 04/21/22 15[address] [place] [address] documented as of this encounter
--- OUTSIDE RECORDS SUMMARY | 2022-07-09 14:23 | XMS_ITS | Encounter Summary ---
:1950 Author Organization [place] Address [address] [place] [address] Care Team Providers Name Role Phone Elyse Paredes MD Primary Care Provider Encounter Details Date Type Department Care Team Description 09/27/2017 Ambulatory - [facility] S/P TAVR [facility] Perezu dorota (transcatheter aortic [address] valve replacement) [place] [address] Social History Tobacco Use Types [...] up coming procedures. Cautioned about using Herbalmedication. RIBUTION CENTER ADMINISTRATOR documented in this encounter Plan of [...] specimen 09/27/2017 (specimen) Ruby Kirkjosé antonio MOYA PUBLIC SAFETY DISPATCHER LAB - BLOOD ORDERABLES documented in this encounter Visit Diagnoses Diagnosis S/P TAVR (transcatheter aortic valve rep lacement) documented in this encounter Care Teams Green Prize Packer Relationship Specialty Start Date End Date Elyse Paredes MD PCP - General Family Practice 12/22/13 04/21/22 5156 [place] [address] documented as of this encounter
--- OUTSIDE RECORDS SUMMARY | 2022-07-09 14:23 | XMS_ITS | Encounter Summary ---
:1950 Author Organization [place] Address [address] [place] [address] Care Team Providers Name Role Phone Elyse Paredes MD Primary Care Provider Reason for Visit Reason Comments Other TSH RESULTS FOR AMIODARONE Encounter Details Date Type Department Care Team Description 10/28/2017 Communication - [facility] Tarah Olivo Other (TSH RESULTS [facility] Heart [facility] FOR AMIODARONE) [address] [place] [address] Social History Tobacco Use Types Packs/Day Years Used Date Smoking Tobacco: Never Assessed Sex Assigned at Date Recorded Not on file documented as of this encounter Plan of Treatment Not on filedocumented as of this encounter Visit Diagnoses Not on filedocumented in this encounter Care Teams Chauffeur Relationship Specialty Start Date End Date Elyse Paredes MD PCP - General Family Practice 12/22/13 04/21/22 1540 [place] [address] documented as of this encounter
--- OUTSIDE RECORDS SUMMARY | 2022-07-09 14:23 | XMS_ITS | Encounter Summary ---
:1950 Author Organization [place] Address [address] [place] [address] Care Team Providers Name Role Phone Elyse Paredes MD Primary Care Provider Encounter Details Date Type Department Care Team Description 01/19/2018 [facility] Garbielle Golden S/P TAVR [facility] Dora RN (transcatheter Bruner aortic valve [address] [facility] replacement) [place] [address] [place] [phone] Social History Tobacco Use Types Packs/Day Years Used Date Smoking Tobacco: Never Assessed Sex Assigned at Date Recorded Not on file documented as of this encounter Progress Notes Gabrielle Golden RN - 01/19/2018 12:51 PM CDT INR 2.6 Left VM message with return phone number for questions and concerns. [phone] INR stable. Discussed continuing management of dose [...] lacement) documented in this encounter Care Teams Dyeing Machine Feeder Relationship Specialty Start Date End Date Elyse Paredes MD PCP - General Family Practice 12/22/13 04/21/22 1322 [place] [address] documented as of this encounter
--- OUTSIDE RECORDS SUMMARY | 2022-07-09 14:23 | XMS_ITS | Encounter Summary ---
:1950 Author Organization [place] Address [address] [place] [address] Care Team Providers Name Role Phone Elyse Paredes MD Primary Care Provider Encounter Details Date Type Department Care Team Description 10/06/2017 [facility] TAVR [address] (transcatheter aortic [place], [place] valve replace ment) [address] Social History [...] 131.1 kg (289 lb) 10/06/2017 3:00 PM PRESIDENT/GM PRODUCTION & LIVE EXPERIENCES Height - - Body Mass Index 51.19 09/27/2017 10:33 AM PRESIDENT/GM PRODUCTION & LIVE EXPERIENCES documented in this encounter Plan of Treatment Not on filedocumented as of this encounter Visit Diagnoses Diagnosis S/P TAVR (transcatheter aortic valve rep lacement) documented in this encounter Care Teams Post Partum Nurse Relationship Specialty Start Date End Date Elyse Paredes MD PCP - General Family Practice 12/22/13 04/21/22 [address] [place], [place] [id number] documented as of this encounter
--- OUTSIDE RECORDS SUMMARY | 2022-07-09 14:23 | XMS_ITS | Encounter Summary ---
:1950 Author Organization [place] Address [address] [place] [address] Care Team Providers Name Role Phone Elyse Paredes MD Primary Care Provider Encounter Details Date Type Department Care Team Description [facility]/20/2017 [facility]R [address] (transcatheter aortic [place], [place] valve replace ment) [address] Social History [...] 129.3 kg (285 lb) 09/20/2017 3:00 PM SECURITY SYSTEM ADMINISTRATOR Height - - Body Mass Index 50.49 09/17/2017 8:23 AM SECURITY SYSTEM ADMINISTRATOR documented in this encounter Plan of Treatment Not on filedocumented as of this encounter Visit Diagnoses Diagnosis S/P TAVR (transcatheter aortic valve rep lacement) documented in this encounter Care Teams Tool Carrier Relationship Specialty Start Date End Date Elyse Paredes MD PCP - General Family Practice 12/22/13 04/21/22 1540 [place], [place] [id number] documented as of this encounter
--- OUTSIDE RECORDS SUMMARY | 2022-07-09 14:23 | XMS_ITS | Encounter Summary ---
:1950 Author Organization [place] Address [address] [place] [address] Care Team Providers Name Role Phone Elyse Paredes MD Primary Care Provider Reason for Visit Reason Comments Other Encounter Details Date Type Department Care Team Description 10/27/2017 Communication - [facility], Other [facility] Debby Ng APRN [address] [facility] [address] [address] [place] [address] Social History Tobacco Use Types Packs/Day Years Used Date Smoking Tobacco: Never Assessed Sex Assigned at Date Recorded Not on file documented as of this encounter Plan of Treatment Not on filedocumented as of this encounter Visit Diagnoses Diagnosis Persistent atrial fibrillation (H) Atrial fibrillation documented in this encounter Care Teams Factory Maintenance Manager Relationship Specialty Start Date End Date Elyse Paredes MD PCP - General Family Practice 12/22/13 04/21/22 1540 [place] [address] documented as of this encounter
--- OUTSIDE RECORDS SUMMARY | 2022-07-09 14:23 | XMS_ITS | Encounter Summary ---
:1950 Author Organization [place] Address [address] [place] [address] Care Team Providers Name Role Phone Elyse Paredes MD Primary Care Provider Encounter Details Date Type Department Care Team Description 10/20/2017 [facility] T[facility]R [address] (transcatheter aortic [place], [place] valve replace ment) [address] Social History [...] Body Mass Index 50.66 09/27/2017 10:33 AM FLOOR FRAMER documented in this encounter Plan of Treatment Not on filedocumented as of this encounter Visit Diagnoses Diagnosis S/P TAVR (transcatheter aortic valve rep lacement) documented in this encounter Care Teams Grooving Machine Operator Relationship Specialty Start Date End Date Elyse Paredes MD PCP - General Family Practice 12/22/13 04/21/22 1540 [place], [place] [id number] documented as of this encounter
--- OUTSIDE RECORDS SUMMARY | 2022-07-09 14:23 | XMS_ITS | Encounter Summary ---
:1950 Author Organization [place] Address [address] [place] [address] Care Team Providers Name Role Phone Elyse Paredes MD Primary Care Provider Encounter Details Date Type Department Care Team Description 10/11/2017 [facility] [address] (transcatheter aortic [place], [place] valve replace ment) [address] Social History [...] Body Mass Index 51.19 09/27/2017 10:33 AM ENTRY LEVEL MACHINE OPERATOR documented in this encounter Plan of Treatment Not on filedocumented as of this encounter Visit Diagnoses Diagnosis S/P TAVR (transcatheter aortic valve rep lacement) documented in this encounter Care Teams Feed Weigher Relationship Specialty Start Date End Date Elyse Paredes MD PCP - General Family Practice 12/22/13 04/21/22 1540 [place], [place] [id number] documented as of this encounter
--- OUTSIDE RECORDS SUMMARY | 2022-07-09 14:23 | XMS_ITS | Encounter Summary ---
:1950 Author Organization [place] Address [address] [place] [address] Care Team Providers Name Role Phone Elyse Paredes MD Primary Care Provider Encounter Details Date Type Department Care Team Description 09/13/2017 [facility] T[facility]R [address] (transcatheter aortic [place], [place] valve replace ment) [address] Social History [...] 129.7 kg (286 lb) 09/13/2017 3:00 PM REVENUE ACCOUNTING MANAGER Height - - Body Mass Index 50.66 09/01/2017 2:05 PM REVENUE ACCOUNTING MANAGER documented in this encounter Plan of Treatment Not on filedocumented as of this encounter Visit Diagnoses Diagnosis S/P TAVR (transcatheter aortic valve rep lacement) documented in this encounter Care Teams Interactive Art Director Relationship Specialty Start Date End Date Elyse Paredes MD PCP - General Family Practice 12/22/13 04/21/22 1540 [place], [place] [id number] documented as of this encounter
--- OUTSIDE RECORDS SUMMARY | 2022-07-09 14:23 | XMS_ITS | Encounter Summary ---
:1950 Author Organization [place] Address [address] [place] [address] Care Team Providers Name Role Phone Elyse Paredes MD Primary Care Provider Encounter Details Date Type Department Care Team Description 12/22/2017 Ambulatory - [facility] Long-term (current) use of anticoagulants; [facility] Debby l A-fib (H) [address] [address] Social History Tobacco Use Types [...] 1.10 12/22/2017 HEART CARE 2:48 PM CDT [facility] Comment: Verified tablet size 5 mg takin g 5 mg on M,F and 2.5 mg all other days. No changes, no procedures, no missed doses. to contact patient. Please call to dose. GIUSEPPE LLOYD Specimen (Source) Anatomical Collection Method Collection Time Re ceived Time Location / / Volume Laterality Blood specimen 12/22/2017 2:40 PM (specimen) CDT Nicole Salazar SYSTEMS LIBRARIAN SCOUT SNIPER LAB - BLOOD ORDERABLES Performing Organization Address City/State/ZIP Code Phon e Number HEART CARE [facility] [address] [place], [place] [address] HEART CARE [facility] [address] [place], [place] [address] documented in this encounter Visit Diagnoses Diagnosis Long-term (current) use of anticoagulant s Encounter for long-term (current) use of anticoagulants A-fib (H) Atrial fibrillation documented in this encounter Care Teams Adult Education Professional Relationship Specialty Start Date End Date Elyse Paredes MD PCP - General Family Practice 12/22/13 04/21/22 [address] [place] [address] documented as of this encounter
--- OUTSIDE RECORDS SUMMARY | 2022-07-09 14:23 | XMS_ITS | Encounter Summary ---
:1950 Author Organization [place] Address [address] [place] [address] Care Team Providers Name Role Phone Elyse Paredes MD Primary Care Provider Encounter Details Date Type Department Care Team Description 10/28/2017 Ambulatory - [facility] Carmen Olivo A-fib (H) Heart [facility] [address] [facility] [address] [place] [address] Social History Tobacco Use Types Packs/Day Years Used Date Smoking Tobacco: Never Assessed Sex Assigned at Date Recorded Not on file documented as of this encounter Plan of Treatment Not on filedocumented as of this encounter Visit Diagnoses Diagnosis A-fib (H) Atrial fibrillation documented in this encounter Care Teams Gearcase Assembler Relationship Specialty Start Date End Date Elyse Paredes MD PCP - General Family Practice 12/22/13 04/21/22 1540 [place] [address] documented as of this encounter
--- OUTSIDE RECORDS SUMMARY | 2022-07-09 14:23 | XMS_ITS | Encounter Summary ---
:1950 Author Organization [place] Address [address] [place] [address] Care Team Providers Name Role Phone Elyse Paredes MD Primary Care Provider Reason for Visit Reason Comments Follow Up Encounter Details Date Type Department Care Team Description 10/27/2017 Office Visit - [facility] Jun Salazar atrial fibrillation (H); [facility] Nicole Ng APRN Chronic di astolic congestive heart failure (H); Fransico HYDE Essential hypertension; [address] [facility] DEDE on CPAP; [place], [place] [address] Paroxysmal atrial fibrillation (H); [address] [place], [place] long-term use of drug [phone] [address] Social History Tobacco Use Types Packs/Day Years [...] this encounter Progress Notes Nicole Salazar APRN REPAIRER PUMP - 10/27/2017 10:30 AM CDT [facility] Arrhythmia Clinic Assessment/Plan: Diagnoses and all [...] to taper off. Recommended to see a surgery tech to discuss plan She has a trip to [place] in April. I would not likely recommend weaning amiodarone until after she is back as risk of reoccurrence of atrial fibrillation. I will anamarychuy [place] amiodarone leadership program associate order complete PFTs if she is still on amiodarone in March. To see Dr. Kang in January. She initially saw Dr. Quiles who referred her to Dr. Martinez for TAVR. She needs a noninvasive surgery tech, so I recommended Dr. Kang. [id number] score of 5 and on warfarin. INR [...] well-controlled. DEDE on CPAP and using CPAP. long-term use of drug - ALT - Thyroid Stimulating Hormone (TSH) Subjective: I had the opportunity to see Marci Diaz at the [facility]. Marci Diaz is [...] on exertion) ??? Coronary artery disease involving [place]omba shoshone coronary artery of y[place]a shoshone heart, angina presence unspecified ??? DEDE on [...] Martinez MD; Location: [facility] Sales Representative Cash Registers; Service: ??? CV TRANSFEMORAL TRANSCATHETER VALVE REPLACEMENT N/A 07/06/2017 Procedure: Transfemoral Transcatheter Aortic Valve Replacement; Surgeon: Ankush Martinez MD; Location: [facility] Sales Representative Cash Registers; Service: ??? TOTAL KNEE ARTHROPLASTY Bilateral Social [...] ms QTC CALCULATION (BEZET) 436 ms P [place] degrees R AXIS 5 degrees T AXIS 28 degrees MUSE DIAGNOSIS Sinus rhythm with Premature atrial complexes Otherwise normal ECG When compared with ECG of 08-SEP-2017 14:43, Premature atrial complexes are now Present Left bundle branch block is no longer Present Confirmed by WINDY PIERRE MD LOC:JN ([id number]) on 09/27/2017 4:52:27 PM TSH: No results [...] to the software. TASHIA SALAZAR RN, [facility] [phone] documented in this encounter Plan of Treatment [...] ALT 23 0 - 45 U/L 10/27/2017 [facility] 11:55 AM CDT [facility] Specimen Anatomical Collection Method / Collection Time Recei gil Time (Source) Location / Volume Laterality Blood specimen Venipuncture / 10/27/2017 11:23 018 (specimen) Unknown AM CDT 11:39 AM CDT Nicole Salazar CAUSTIC ROOM OPERATOR [facility] LAB - BLOOD ORDERABLES Performing Organization Address City/State/ZIP Code Phon [place] [address] [facility] [address] [place] [address] [facility] (ABNORMAL) Amiodarone level (10/27/2017 11:23 AM CDT) P athologist Signature Amiodarone 0.4 (L) mcg/mL 10/29/2017 [facility] 6:28 AM CDT LABORATORY Comment: REFERENCE VALUE------ 0.5 - 2.0 (Toxic >2.5) I-Ridheseo-Xbqfqhjers 0.3 mcg/mL 10/29/2017 6:2 8 AM CDT [facility] Comment: REFERENCE VALUE------ No therapeutic range established; activi ty and serum concentration are similar to parent drug . ADDITIONAL INFORMATIO N This test was developed and its performa nce characteristics determined by [facility] in a manner co nsistent with CLIA requirements. This test has not been phil ared or approved by the U.S. Food and Drug Administration. Test Performed by: [facility] [address] [place], [place] [address] Specimen Anatomical Collection Method / Collection Time Recei gil Time (Source) Location / Volume Laterality Blood specimen Venipuncture / 10/27/2017 11:23 018 2:53 (specimen) Unknown AM CDT PM CDT Nicole Salazar APRN REPAIRER PUMP LAB - BLOOD ORDERABLES Performing Organization Address City/State/ZIP Code Phon e Number [facility] [place] [address] [facility] MEDICAL LABORATORY [address] [place] [address] (ABNORMAL) TSH (10/27/2017 11:23 AM CDT) P athologist Signature TSH 6.26 (H) 0.30 - 5.00 10/27/2017 [facility] uIU/mL 12:17 PM CDT [facility] Specimen Anatomical Collection Method / Collection Time Recei gil Time (Source) Location / Volume Laterality Blood specimen Venipuncture / 10/27/2017 11:23 10/27/ 018 (specimen) Unknown AM CDT 11:39 AM CDT Nicole Salazar APRN REPAIRER PUMP LAB - BLOOD ORDERABLES Performing Organization Address City/[facility]/ZIP [facility] [place]on [place] [address] [phone] [address] [facility] (ABNORMAL) INR point of care (10/27/2017 11:10 AM CDT) athologist Signature POC INR 2.40 (A) 0.90 - 1.10 10/27/2017 HEART CARE 11:10 AM CDT [facility] Comment: Tashia Salazar CNP to dose. Aidan angulo verified dosing and tablet size with patient. GIUSEPPE LLOYD Specimen (Source) Anatomical Collection Method Collection Time Re ceived Time Location / / Volume Laterality Blood specimen 10/27/2017 11:10 (specimen) AM CDT Nicole Salazar APRN, CNP LAB - BLOOD ORDERABLES Performing Organization Address City/[facility] Phon e Number HEART CARE [address] [address] [address] [address] documented in this encounter Visit Diagnoses Diagnosis Persistent atrial fibrillation (H) Atrial fibrillation Chronic diastolic congestive heart failu re (H) Chronic diastolic heart failure Essential hypertension Unspecified essential hypertension DEDE on CPAP Obstructive sleep apnea (adult) (pediatr ic) Paroxysmal atrial fibrillation (H) Atrial fibrillation long-term use of drug Encounter for long-term (current) use of other medications documented in this encounter Care Teams Delinquency Prevention Social Worker Relationship Specialty Start Date End Date Elyse Paredes MD PCP - General Family Practice 12/22/13 04/21/22 [address] [place] [address] documented as of this encounter
--- OUTSIDE RECORDS SUMMARY | 2022-07-09 14:23 | XMS_ITS | Encounter Summary ---
:1950 Author Organization [place] Address [address] [place] [address] Care Team Providers Name Role Phone Elyse Paredes MD Primary Care Provider Reason for Visit Reason Comments Follow Up Encounter Details Date Type Department Care Team Description 09/27/2017 Office Visit - [facility] Ruby Kirk Persis tent atrial fibrillation (H); [facility] Chronic diastolic congestive heart failu re (H); [address] DEDE on CPAP; [address], Essential hypertension; [place], [place] [address] Coronary artery disease involving levelock coronary artery of levelock heart, angina presence unspecified [id number] [place], [place] [phone] [address] Social History Tobacco Use Types Packs/Day Years [...] 130.2 kg (287 lb) 09/27/2017 10:33 AM TERRITORY SALES MANAGER MEDICAL Height 160 cm (5' 3) 09/27/2017 10:33 AM TERRITORY SALES MANAGER MEDICAL Body Mass Index 50.84 09/27/2017 10:33 AM TERRITORY SALES MANAGER MEDICAL documented in this encounter Progress Notes Ruby Kirk APRN HEART DOCTOR - 09/27/2017 10:30 AM CST [facility]--Electrophysiology Assessment/Plan: Problem List Items Addressed This Visit Coronary artery disease involving levelock coronary artery of levelock heart, angina presence unspecified DEDE on CPAP [...] increased risk for stroke. She has a [id number] score of 5 for age 65-74, female gender, CAD, hypertension, and diabetes; long-term oral anticoagulation therapy is recommended per current guidelines. We briefly reviewed our previous discussion of alternatives to warfarin, particularly Eliquis 5 mg twice daily. She has recently been sensitive to medications, primarily with GI issues, and her finishing operator is going to be making some changes [...] on exertion) ??? Coronary artery disease involving levelock coronary artery of levelock heart, angina presence unspecified ??? DEDE on [...] Coronary Angiogram; Surgeon: Ankush Martinez MD; Location: [facility] Gas Systems Worker; Service: ??? CV TRANSFEMORAL TRANSCATHETER VALVE REPLACEMENT N/A 07/06/2017 Procedure: Transfemoral Transcatheter Aortic Valve Replacement; Surgeon: Ankush Martinez MD; Location: [facility] Gas Systems Worker; Service: ??? TOTAL KNEE ARTHROPLASTY Bilateral Allergies [...] aortic valve is now present, replacing stenotic levelock valve Lab Review Lab Results Component Value [...] and coordination of care. Ruby Kirk CNP [facility], Electrophysiology [phone] This note has been dictated using voice recognition software. Any grammatical, typographical, or context distortions are unintentional and inherent to the software. ITORY SALES MANAGER MEDICAL documented in this encounter Plan of Treatment Not on filedocumented as of this encounter Procedures Procedure Name Priority Date/Time Associated Diagnosis Comme nts ECG 12-LEAD WITH MUSE Routine 09/27/2017 Result s for this ? procedure are in the [facility] results section . documented in this encounter Results ECG 12-LEAD WITH MUSE (LHE) (09/27/2017) [facility] Method Time Signature Systolic Blood mmHg 09/27/2017 HE RADIANT Pressure 4:52 PM TERRITORY SALES MANAGER MEDICAL CONVERSION Diastolic Blood mmHg 09/27/2017 HE RADIANT Pressure 4:52 PM TERRITORY SALES MANAGER MEDICAL CONVERSION Ventricular Rate 62 BPM 09/27/2017 HE RADIANT 4:52 PM TERRITORY SALES MANAGER MEDICAL CONVERSION Atrial Rate 62 BPM 09/27/2017 HE RADIANT 4:52 PM TERRITORY SALES MANAGER MEDICAL CONVERSION OH Interval 208 ms 09/27/2017 HE RADIANT 4:52 PM TERRITORY SALES MANAGER MEDICAL CONVERSION QRS Duration 96 ms 09/27/2017 HE RADIANT 4:52 PM TERRITORY SALES MANAGER MEDICAL CONVERSION QT 430 ms 09/27/2017 HE RADIANT 4:52 PM TERRITORY SALES MANAGER MEDICAL CONVERSION QTc 436 ms 09/27/2017 HE RADIANT 4:52 PM TERRITORY SALES MANAGER MEDICAL CONVERSION P [place] degrees 09/27/2017 HE RADIANT 4:52 PM TERRITORY SALES MANAGER MEDICAL CONVERSION R AXIS 5 degrees 09/27/2017 HE RADIANT 4:52 PM TERRITORY SALES MANAGER MEDICAL CONVERSION T [place] 28 degrees 09/27/2017 HE RADIANT 4:52 PM TERRITORY SALES MANAGER MEDICAL CONVERSION Interpretation Sinus rhythm with Premature atrial complexes 09/27/2017 HE RADIANT ECG Otherwise normal ECG 4:52 PM TERRITORY SALES MANAGER MEDICAL CONVERS ION When compared with ECG of 08-SEP-2017 14:43, Premature atrial complexes are now Present Left bundle branch block is no longer Present Confirmed by LI ??WINDY CLEMENTS LOC:BUSHRA ([id number]) on 09/27/2017 4:5 2:27 PM Specimen (Source) Anatomical Collection Method Collection Time Re ceived Time Location / / Volume Laterality 09/27/2017 09/27/2017 4:52 PM TERRITORY SALES MANAGER MEDICAL Ruby Kirk LUMP INSPECTOR HEART DOCTOR ECG ORDERABLES Performing Organization Address City/State/ZIP Code Phon e Number HE CARDIOLOGY CONVERSION HE RADIANT CONVERSION documented in this encounter Visit Diagnoses Diagnosis Persistent atrial fibrillation (H) Atrial fibrillation Chronic diastolic congestive heart failu re (H) Chronic diastolic heart failure DEDE on CPAP Obstructive sleep apnea (adult) (pediatr ic) Essential hypertension Unspecified essential hypertension Coronary artery disease involving levelock coronary artery of levelock heart, angina presence unspecified documented in this encounter Care Teams Dispensing Optician Relationship Specialty Start Date End Date Elyse Paredes MD PCP - General Family Practice 12/22/13 04/21/22 [address] [place] [address] documented as of this encounter
--- OUTSIDE RECORDS SUMMARY | 2022-07-09 14:23 | XMS_ITS | Encounter Summary ---
:1950 Author Organization [place] Address [address] [place] [address]. [place] [address] Care Team Providers Name Role Phone Elyse Paredes MD Primary Care Provider Encounter Details Date Type Department Care Team Description 10/28/2017 [facility] Carmen Olivo Heart Clinic [facility] od [address] [facility] [address] [place] [address] Social History Tobacco Use Types Packs/Day Years Used Date Smoking Tobacco: Never Assessed Sex Assigned at Date Recorded Not on file documented as of this encounter Plan of Treatment Not on filedocumented as of this encounter Visit Diagnoses Not on filedocumented in this encounter Care Teams Admitting Officer Relationship Specialty Start Date End Date Elyse Paredes MD PCP - General Family Practice 12/22/13 04/21/22 1540 [place] [address] documented as of this encounter
--- OUTSIDE RECORDS SUMMARY | 2022-07-09 14:23 | XMS_ITS | Encounter Summary ---
:1950 Author Organization [place] Address [address] [place] [address]. [place] [address] Care Team Providers Name Role Phone Elyse Paredes MD Primary Care Provider Encounter Details Date Type Department Care Team Description 12/22/2017 [facility] Gabrielle Golden S/P TAVR [facility] Dora RN (transcatheter Rachel aortic valve [address] [facility] replacement) [address] [place] [phone] Social History Tobacco Use Types Packs/Day Years [...] lacement) documented in this encounter Care Teams Forest Biometrics Professor Relationship Specialty Start Date End Date Elyse Paredes MD PCP - General Family Practice 12/22/13 04/21/22 1540 [place], [place] [id number] documented as of this encounter
--- OUTSIDE RECORDS SUMMARY | 2022-07-09 14:23 | XMS_ITS | Encounter Summary ---
:1950 Author Organization [place] Address [address] [place] [address] Care Team Providers Name Role Phone Elyse Paredes MD Primary Care Provider Encounter Details Date Type Department Care Team Description [facility]2017 [facility] TAVR (transcatheter aort ic valve replacement); [address] S/[place] [phone] Social History Tobacco Use Types Packs/Day Years [...] 129.3 kg (285 lb) 09/22/2017 3:00 PM EASEMENT MAN Height - - Body Mass Index 50.49 09/17/2017 8:23 AM EASEMENT MAN documented in this encounter Plan of Treatment Not on filedocumented as of this encounter Visit Diagnoses Diagnosis S/P TAVR (transcatheter aortic valve rep lacement) S/P coronary artery stent placement Postsurgical percutaneous transluminal c oronary angioplasty status documented in this encounter Care Teams Vault Cashier Relationship Specialty Start Date End Date Elyse Paredes MD PCP - General Family Practice 12/22/13 04/21/22 15[address] [facility] [place] [address] documented as of this encounter
--- OUTSIDE RECORDS SUMMARY | 2022-07-09 14:23 | XMS_ITS | Encounter Summary ---
:1950 Author Organization [place] Address [address] [place] [address] Care Team Providers Name Role Phone Elyse Paredes MD Primary Care Provider Reason for Visit Reason Comments Atrial Fib Encounter Details Date Type Department Care Team Description 09/15/2017 Communication - [facility] Tarah Olivo Atr ial Fib [address] [place] [address] Social History Tobacco Use Types Packs/Day Years Used Date Smoking Tobacco: Never Assessed Sex Assigned at Date Recorded Not on file documented as of this encounter Plan of Treatment Not on filedocumented as of this encounter Visit Diagnoses Not on filedocumented in this encounter Care Teams Flood Control Engineer Relationship Specialty Start Date End Date Elyse Paredes MD PCP - General Family Practice 12/22/13 04/21/22 1540 [place] [address] documented as of this encounter
--- OUTSIDE RECORDS SUMMARY | 2022-07-09 14:23 | XMS_ITS | Encounter Summary ---
:1950 Author Organization [place] Address [address] [place] [address] Care Team Providers Name Role Phone Elyse Paredes MD Primary Care Provider Encounter Details Date Type Department Care Team Description 10/18/2017 [facility] S/P TAVR [address] (transcatheter aortic [place], [place] valve replace ment) [phone] Social History [...] Body Mass Index 50.31 09/27/2017 10:33 AM STAPLER HAND documented in this encounter Plan of Treatment Not on filedocumented as of this encounter Visit Diagnoses Diagnosis S/P TAVR (transcatheter aortic valve rep lacement) documented in this encounter Care Teams Business Process Specialist Relationship Specialty Start Date End Date Elyse Paredes MD PCP - General Family Practice 12/22/13 04/21/22 1540 [place], [place] [phone] documented as of this encounter
--- OUTSIDE RECORDS SUMMARY | 2022-07-09 14:24 | XMS_ITS | Encounter Summary ---
:1950 Author Organization [place] Address [address] [place] [address] Care Team Providers Name Role Phone Elyse Paredes MD Primary Care Provider Encounter Details Date Type Department Care Team Description 09/08/2017 Ambulatory - [facility] S/P TAVR [address] (transcatheter aortic [place], [place] valve replace ment) [phone] Social [...] 129.3 kg (285 lb) 09/08/2017 3:00 PM 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 DRILLER Height - - Body Mass Index 50.49 09/01/2017 2:05 PM 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 DRILLER documented in this encounter Plan of Treatment Not on filedocumented as of this encounter Visit Diagnoses Diagnosis S/P TAVR (transcatheter aortic valve rep lacement) documented in this encounter Care Teams Ed Teacher Relationship Specialty Start Date End Date Elyse Paredes MD PCP - General Family Practice 12/22/13 04/21/22 1540 [place], [place] [id number] documented as of this encounter
--- OUTSIDE RECORDS SUMMARY | 2022-07-09 14:24 | XMS_ITS | Encounter Summary ---
:1950 Author Organization [place] Address [address] [place] [address] Care Team Providers Name Role Phone Elyse Paredes MD Primary Care Provider Encounter Details Date Type Department Care Team Description [facility]/07[facility] ([address] [place] [address] Social History Tobacco Use Types Packs/Day Years Used Date Smoking Tobacco: Never Assessed Sex Assigned at Date Recorded Not on file documented as of this encounter Plan of Treatment Not on filedocumented as of this encounter Visit Diagnoses Diagnosis Atrial fibrillation (H) Atrial fibrillation documented in this encounter Care Teams Rehab/Pre Vocational Counselor Relationship Specialty Start Date End Date Elyse Paredes MD PCP - General Family Practice 12/22/13 04/21/22 1540 [place], [place] [phone] documented as of this encounter
--- OUTSIDE RECORDS SUMMARY | 2022-07-09 14:24 | XMS_ITS | Encounter Summary ---
:1950 Author Organization [place] Address [address] [place] [address] Care Team Providers Name Role Phone Elyse Paredes MD Primary Care Provider Encounter Details Date Type Department Care Team Description 09/06/2017 Ambulatory - [facility] S/P TAVR [facility] Debby dorota (transcatheter aortic [address] valve replacement) [place] [address] Social History Tobacco Use Types [...] bleeding or bruising or any upcoming procedures. E SALES MANAGER documented in this encounter Plan [...] lacement) documented in this encounter Care Teams Building Components Designer Relationship Specialty Start Date End Date Elyse Paredes MD PCP - General Family Practice 12/22/13 04/21/22 1540 [place] [address] documented as of this encounter
--- OUTSIDE RECORDS SUMMARY | 2022-07-09 14:24 | XMS_ITS | Encounter Summary ---
:1950 Author Organization [place] Address [address] [place] [address] Care Team Providers Name Role Phone Elyse Paredes MD Primary Care Provider Encounter Details Date Type Department Care Team Description 09/03/2017 Ambulatory - [facility] S/P TAVR [address] (transcatheter aortic [place], [place] valve replace ment) [phone] Social History [...] 128.4 kg (283 lb) 09/03/2017 3:00 PM COMPETITIVE ATHLETE Height - - Body Mass Index 50.13 09/01/2017 2:05 PM COMPETITIVE ATHLETE documented in this encounter Plan of Treatment Not on filedocumented as of this encounter Visit Diagnoses Diagnosis S/P TAVR (transcatheter aortic valve rep lacement) documented in this encounter Care Teams Stationary Engineer Supervisor Relationship Specialty Start Date End Date Elyse Paredes MD PCP - General Family Practice 12/22/13 04/21/22 1540 [place], [place] [phone] documented as of this encounter
--- OUTSIDE RECORDS SUMMARY | 2022-07-09 14:24 | XMS_ITS | Encounter Summary ---
:1950 Author Organization [employer] Address [address] [place] [address] Care Team Providers Name Role Phone Elyse Paredes MD Primary Care Provider Encounter Details Date Type Department Care Team Description [facility]/2017 [facility] S[facility] TAVR [address] (transcatheter aortic [place], [place] valve replace ment) [phone] Social History [...] 128.4 kg (283 lb) 09/01/2017 3:00 PM LOFT RIGGER Height - - Body Mass Index 50.13 09/01/2017 2:05 PM LOFT RIGGER documented in this encounter Plan of Treatment Not on filedocumented as of this encounter Visit Diagnoses Diagnosis S/P TAVR (transcatheter aortic valve rep lacement) documented in this encounter Care Teams Automobile Body Repairer Relationship Specialty Start Date End Date Elyse Paredes MD PCP - General Family Practice 12/22/13 04/21/22 1540 [place], [place] [phone] documented as of this encounter
--- OUTSIDE RECORDS SUMMARY | 2022-07-09 14:24 | XMS_ITS | Encounter Summary ---
:1950 Author Organization [place] Address [address] [place] [address] Care Team Providers Name Role Phone Elyse Paredes MD Primary Care Provider Encounter Details Date Type Department Care Team Description [facility]/06/2017 [facility] T[facility]R [address] (transcatheter aortic [place], [place] valve replace ment) [phone] Social History [...] 128.8 kg (284 lb) 09/06/2017 3:00 PM SALES ENGINEER ENGINEERED PRODUCTS Height - - Body Mass Index 50.31 09/01/2017 2:05 PM SALES ENGINEER ENGINEERED PRODUCTS documented in this encounter Plan of Treatment Not on filedocumented as of this encounter Visit Diagnoses Diagnosis S/P TAVR (transcatheter aortic valve rep lacement) documented in this encounter Care Teams Diamond Wheel Molder Relationship Specialty Start Date End Date Elyse Paredes MD PCP - General Family Practice 12/22/13 04/21/22 1540 [place], [place] [id number] documented as of this encounter
--- OUTSIDE RECORDS SUMMARY | 2022-07-09 14:24 | XMS_ITS | Encounter Summary ---
:1950 Author Organization [place] Address [address] [place] [address] Care Team Providers Name Role Phone Elyse Paredes MD Primary Care Provider Reason for Visit Reason Comments Other Encounter Details Date Type Department Care Team Description 09/01/2017 [facility] Ruby Kirk, Other [facility] [address] [facility], [address] [address] [place], [place] [phone] [address] Social History Tobacco Use Types Packs/Day Years Used Date Smoking Tobacco: Never Assessed Sex Assigned at Date Recorded Not on file documented as of this encounter Plan of Treatment Not on filedocumented as of this encounter Visit Diagnoses Diagnosis Persistent atrial fibrillation (H) Atrial fibrillation documented in this encounter Care Teams Sponge Buffer Relationship Specialty Start Date End Date Elyse Paredes MD PCP - General Family Practice 12/22/13 04/21/22 1540 [place] [address] documented as of this encounter
--- OUTSIDE RECORDS SUMMARY | 2022-07-09 14:24 | XMS_ITS | Encounter Summary ---
:1950 Author Organization [place] Address [address] [place] [address]. [place] [address] Care Team Providers Name Role Phone Elyse Paredes MD Primary Care Provider Reason for Visit Reason Comments Other CV CANCELLED PT IN NSR Encounter Details Date Type Department Care Team Description 09/09/2017 Ambulatory - [facility] Carmen Olivo Heart Clinic [facility] od [address] [facility] [address] [place] [phone] Social History Tobacco Use Types Packs/Day Years [...] Pt has my direct number for contact. WASHER documented in this encounter Plan of Treatment Not on filedocumented as of this encounter Visit Diagnoses Not on filedocumented in this encounter Care Teams Manager Activities Relationship Specialty Start Date End Date Elyse Paredes MD PCP - General Family Practice 12/22/13 04/21/22 3880 [place] [address] documented as of this encounter
--- OUTSIDE RECORDS SUMMARY | 2022-07-09 14:24 | XMS_ITS | Encounter Summary ---
:1950 Author Organization [place] Address [address] [place] [address] Care Team Providers Name Role Phone Elyse Paredes MD Primary Care Provider Encounter Details Date Type Department Care Team Description 09/02/2017 Ambulatory - [facility] Tarah Olivo use of [facility] [address] [facility] [address] [place] [phone] Social History Tobacco Use Types Packs/Day Years Used Date Smoking Tobacco: Never Assessed Sex Assigned at Date Recorded Not on file documented as of this encounter Plan of Treatment Not on filedocumented as of this encounter Visit Diagnoses Diagnosis vermin exterminator use of drug Encounter for long-term (current) use of other medications documented in this encounter Care Teams Biofuels Technology Manager Relationship Specialty Start Date End Date Elsye Paredes MD PCP - General Family Practice 12/22/13 04/21/22 1540 [place] [address] documented as of this encounter
--- OUTSIDE RECORDS SUMMARY | 2022-07-09 14:24 | XMS_ITS | Encounter Summary ---
:1950 Author Organization [place] Address [address] [place] [address] Care Team Providers Name Role Phone Elyse Paredes MD Primary Care Provider Reason for Visit Reason Comments Atrial Fib Encounter Details Date Type Department Care Team Description 09/07/2017 Communication - [facility] Tarah Olivo Atr ial Fib [address] [place] [address] Social History Tobacco Use Types Packs/Day Years Used Date Smoking Tobacco: Never Assessed Sex Assigned at Date Recorded Not on file documented as of this encounter Plan of Treatment Not on filedocumented as of this encounter Visit Diagnoses Not on filedocumented in this encounter Care Teams Warehouseman Relationship Specialty Start Date End Date Elyse Paredes MD PCP - General Family Practice 12/22/13 04/21/22 1540 [place] [address] documented as of this encounter
--- OUTSIDE RECORDS SUMMARY | 2022-07-09 14:24 | XMS_ITS | Encounter Summary ---
:1950 Author Organization [place] Address [address] [place] [address] Care Team Providers Name Role Phone Elyse Paredes MD Primary Care Provider Reason for Visit Reason Comments Atrial Fib Encounter Details Date Type Department Care Team Description 09/09/2017 Communication - [facility] Tarah Olivo Atr ial Fib [address] [place] [address] Social History Tobacco Use Types Packs/Day Years Used Date Smoking Tobacco: Never Assessed Sex Assigned at Date Recorded Not on file documented as of this encounter Plan of Treatment Not on filedocumented as of this encounter Visit Diagnoses Not on filedocumented in this encounter Care Teams Government Service Executive Relationship Specialty Start Date End Date Elyse Paredes MD PCP - General Family Practice 12/22/13 04/21/22 1540 [place] [address] documented as of this encounter
--- OUTSIDE RECORDS SUMMARY | 2022-07-09 14:24 | XMS_ITS | Encounter Summary ---
:1950 Author Organization [place] Address [address] [place] [address] Care Team Providers Name Role Phone Elyse Paredes MD Primary Care Provider Encounter Details Date Type Department Care Team Description [facility]2017 [facility] T[facility]R [address] (transcatheter aortic [place], [place] valve replace ment) [phone] Social History [...] 129.7 kg (286 lb) 08/27/2017 11:00 AM BUSINESS OBJECTS ANALYST Height - - Body Mass Index 50.66 08/26/2017 11:41 AM BUSINESS OBJECTS ANALYST documented in this encounter Plan of Treatment Not on filedocumented as of this encounter Visit Diagnoses Diagnosis S/P TAVR (transcatheter aortic valve rep lacement) documented in this encounter Care Teams Tool Smith Relationship Specialty Start Date End Date Elyse Paredes MD PCP - General Family Practice 12/22/13 04/21/22 1540 [place], [place] [id number] documented as of this encounter
--- OUTSIDE RECORDS SUMMARY | 2022-07-09 14:24 | XMS_ITS | Encounter Summary ---
:1950 Author Organization [place] Address [address] [place] [address] Care Team Providers Name Role Phone Elyse Paredes MD Primary Care Provider Encounter Details Date Type Department Care Team Description 08/26/2017 Hospital Encounter [facility] [place], J tyra Ng APRN ICE SKATING COACH [address] [facility] [address] [place], [place] [id number] Persistent atrial SPECIAL CARE Lm Kiser MD [address] [facility] [address] [place], [place] [id number] fibrillation (H) Social History Tobacco Use Types [...] (286 lb 6 oz) 08/26/2017 11:41 AM FEEDLOT MANAGER Height 160 cm (5' 3) 08/26/2017 11:41 AM FEEDLOT MANAGER Body Mass Index 50.73 08/26/2017 11:41 AM FEEDLOT MANAGER documented in this encounter Medications at [...] ups and medication changes explained and understood LOT MANAGER Arleth Saravia RN - 08/26/2017 11:45 AM CST Patient is admitted this morning for an elective cardioversion Friend is present at the bedside Alert/oriented Vital signs are stable Heart rhythm atrial fibrillation All learning needs have been addressed Patient is prepped and ready for procedure LOT MANAGER documented in this encounter H&P Notes Bianca Salazar APRN CNP - 08/26/2017 3:01 PM CST I have performed an assessment and examined the patient, as necessary, to update the patient's current status that may have changed since the prior History and Physical. INR therapeutic today. States that she took only metoprolol tartrate 25 mg this morning as instructed. LOT MANAGER documented in this encounter Procedure Notes Bianca Salazar, GRIFFIN ICE SKATING COACH - 08/26/2017 3:02 PM CST EP Cardioversion External Date/Time: 08/26/2017 3:02 PM Performed by: BIANCA SALAZAR. Authorized by: BIANCA SALAZAR Consent: Verbal consent obtained. Consent given by: patient Patient identity confirmed: verbally with patient and arm band Time out: Immediately prior to procedure a time out was called to verify the correct patient, procedure, equipment, ict customer support officer and site/side marked as required. Sedation: Patient [...] mg twice daily the morning of cardioversion. Gasoline Pump Mechanic: Roland Salazar RN ICE SKATING COACH Methods: Pause for cause done. Then Marci Diaz taken in fasting nonsedated state and underwent brief deep anesthesia per anesthesia service. At 1317 received 300 joules of single, biphasic, synch DC CV shock between right parasternal and left infrascapular paddle position with hands free pads and had prompt temple of sinus bradycardia in the 50s. Impression: [...] 1 hr after discharge. Bianca Salazar RN, ICE SKATING COACH 08/26/2017 LOT MANAGER documented in this encounter Plan of Treatment Not on filedocumented as of this encounter Procedures Procedure Name Priority Date/Time Associated Diagnosis Comme nts ECG 12-LEAD WITH MUSE Routine 08/26/2017 2:10 Res ults for this ? PM FEEDLOT MANAGER procedure are in SJN,SJO,W[facility] the results section. CARDIOVERSION EXTERNAL Routine 08/26/2017 10:55 Persistent atr ial Results for this AM FEEDLOT MANAGER fibrillation (H) procedure a re in the results section. documented in this encounter Results ECG 12-LEAD WITH MUSE (LHE) (08/26/2017 2:10 PM FEEDLOT MANAGER) [facility] gist Method Time Signature Systolic Blood mmHg 08/26/2017 HE RADIANT Pressure 4:38 PM CONVERSION FEEDLOT MANAGER Diastolic Blood mmHg 08/26/2017 HE RADIANT Pressure 4:38 PM CONVERSION FEEDLOT MANAGER Ventricular Rate 51 BPM 08/26/2017 HE RADIANT 4:38 PM CONVERSION FEEDLOT MANAGER Atrial Rate 51 BPM 08/26/2017 HE RADIANT 4:38 PM CONVERSION FEEDLOT MANAGER VA Interval 198 ms 08/26/2017 HE RADIANT 4:38 PM CONVERSION FEEDLOT MANAGER QRS Duration 92 ms 08/26/2017 HE RADIANT 4:38 PM CONVERSION FEEDLOT MANAGER QT 448 ms 08/26/2017 HE RADIANT 4:38 PM CONVERSION FEEDLOT MANAGER QTc 412 ms 08/26/2017 HE RADIANT 4:38 PM CONVERSION FEEDLOT MANAGER P [place] 60 degrees 08/26/2017 HE RADIANT 4:38 PM CONVERSION FEEDLOT MANAGER R AXIS 3 degrees 08/26/2017 HE RADIANT 4:38 PM CONVERSION FEEDLOT MANAGER T [place] 70 degrees 08/26/2017 HE RADIANT 4:38 PM CONVERSION FEEDLOT MANAGER Interpretation Sinus bradycardia 08/26/2017 HE RAD IANT ECG Poor R wave progression 4:38 PM CONVER CJ Otherwise normal ECG FEEDLOT MANAGER When compared with ECG of 05-AUG-2017 11:02, Sinus rhythm has replaced Atrial fibrillation Vent. rate has decreased BY ??34 BPM Nonspecific T wave abnormality now evident in Lateral leads Confirmed by DALLAS ??SADIA CLEMENTS LOC:JN ([id number]) on 018 4:38:02 PM Specimen Anatomical Collection Method Collection Time Receive d Time (Source) Location / / Volume Laterality 08/26/2017 2:10 PM 8 4:38 FEEDLOT MANAGER PM FEEDLOT MANAGER Bianca Salazar APRN ICE SKATING COACH ECG ORDERABLES Performing Organization Address City/State/ZIP Code Phon e Number HE CARDIOLOGY CONVERSION HE RADIANT CONVERSION Cardioversion External (08/26/2017 10:55 AM FEEDLOT MANAGER) Anatomical Region Laterality Modality Other Specimen (Source) Anatomical Collection Method Collection Time Re ceived Time Location / / Volume Laterality 07/29/2017 10:56 AM FEEDLOT MANAGER Narrative 08/26/2017 3:07 PM FEEDLOT MANAGER EP Cardioversion External Date/Time: 08/26/2017 3:02 PM Performed by: BIANCA SALAZAR Authorized by: BIANCA SALAZAR Consent: Verbal consent obtained. Consent given by: patient Patient identity confirmed: verbally wit h patient and arm band Time out: Immediately prior to procedure a time out was called to verify the correct patient, procedure, equipment, ict customer support officer and site/side marked as required. Sedation: Patient [...] mg twice daily the morning of cardioversion. Gasoline Pump Mechanic: Roland Salazar RN ICE SKATING COACH Methods: ??Pause for cause done. ??Then Marci Staley Anthonykev taken in fasting nonsedated state and underwent brief deep anesthesia per anesthesia service. ?? At 1317 received 300 joules of single, b iphasic, synch DC CV shock between right parasternal and left infrascapular paddle position with hands free pads and had prompt temple of sinus bradycardia in the 50s. ?? [...] TWICE DAILY 07/29/17 08/26/17 Yes Bianca Salazar, ICE SKATING COACH BD INSULIN PEN NEEDLE UF MINI 31 [...] Discharge to home when stable and at [facility] 1 hr after discharge. Bianca Salazar RN, ICE SKATING COACH 08/26/2017 Procedure Note Provider, Historical - 01/08/2021Formatt [...] to verify the correct patient, procedure, equipment, ict customer support officer and site/side marked as required. Sedation: Patient [...] mg twice daily the morning of cardioversion. Gasoline Pump Mechanic: Roland Salazar RN ICE SKATING COACH Methods: Pause for cause done. Then Anna Diaz taken in fasting nonsedated state and underwent brief deep anesthesia per anesthesia service. At 1317 received 300 joules of single, b iphasic, synch DC CV shock between right parasternal and left infrascapular paddle position with hands free pads and had prompt temple of sinus bradycardia in the 50s. Impression: [...] 1 hr after discharge. Bianca Salazar RN, ICE SKATING COACH 08/26/2017 Bianca Salazar CUFF FOLDER ICE SKATING COACH CV ELECTROPHYSIOLOGY ORDER [place] documented in this encounter Visit Diagnoses Diagnosis Persistent atrial fibrillation (H) Atrial fibrillation documented in this encounter Care Teams Floor Winder Relationship Specialty Start Date End Date Elyse Paredes MD PCP - General Family Practice 12/22/13 04/21/22 [address] [place], [place] [id number] documented as of this encounter
--- OUTSIDE RECORDS SUMMARY | 2022-07-09 14:24 | XMS_ITS | Encounter Summary ---
:1950 Author Organization [facility] Address [address] [place] [address] Care Team Providers Name Role Phone Elyse Paredes MD Primary Care Provider Encounter Details Date Type Department Care Team Description 09/02/2017 [facility] Gabrielle Golden S/P TAVR [facility] PAYTON John (transcatheter [place] aortic valve [address] [facility] replacement) [place] [address] [place] [address] Social History Tobacco Use Types Packs/Day Years Used Date Smoking Tobacco: Never Assessed Sex Assigned at Date Recorded Not on file documented as of this encounter Progress Notes Gabrielle Golden RN - 09/02/2017 7:32 AM CST INR 2.2 dosed by David Kirk EXECUTIVE DIRECTOR CONTRACT SHOP will continue on current dose. Continue current management dosing of Warfarin. Continue diet of moderate Vitamin K intake. Discussed with pt the need to call with questions or concerns or any change in medication especially herbal medication or OTC. Call with increased bleeding or bruising or any upcoming procedures. RNAL SALESPERSON documented in this encounter Plan of Treatment Not on filedocumented as of this encounter Visit Diagnoses Diagnosis S/P TAVR (transcatheter aortic valve rep lacement) documented in this encounter Care Teams Fibre Optic Cable Splicer Relationship Specialty Start Date End Date Elyse Paredes MD PCP - General Family Practice 12/22/13 04/21/22 [address] [place] [address] documented as of this encounter
--- OUTSIDE RECORDS SUMMARY | 2022-07-09 14:24 | XMS_ITS | Encounter Summary ---
:1950 Author Organization [place] Address [address] [place] [address] Care Team Providers Name Role Phone Elyse Paredes MD Primary Care Provider Encounter Details Date Type Department Care Team Description 09/08/2017 [facility] rial [facility] (H) [facility] [address] [address] [place], [place] [phone] Social History Tobacco Use Types Packs/Day [...] PM Resul ts for this MUSE ? CLEARANCE REP procedure are in SJN,SJO,[facility] the results section. documented in this encounter Results ECG 12-LEAD WITH MUSE (LHE) (09/08/2017 2:28 PM CLEARANCE REP) [facility] Method Time Signature Systolic Blood mmHg 09/08/2017 HE RADIANT Pressure 4:16 PM CONVERSION CLEARANCE REP Diastolic Blood mmHg 09/08/2017 HE RADIANT Pressure 4:16 PM CONVERSION CLEARANCE REP Ventricular Rate 57 BPM 09/08/2017 HE RADIANT 4:16 PM CONVERSION CLEARANCE REP Atrial Rate 57 BPM 09/08/2017 HE RADIANT 4:16 PM CONVERSION CLEARANCE REP AR Interval 205 ms 09/08/2017 HE RADIANT 4:16 PM CONVERSION CLEARANCE REP QRS Duration 146 ms 09/08/2017 HE RADIANT 4:16 PM CONVERSION CLEARANCE REP QT 454 ms 09/08/2017 HE RADIANT 4:16 PM CONVERSION CLEARANCE REP QTc 441 ms 09/08/2017 HE RADIANT 4:16 PM CONVERSION CLEARANCE REP P [place] 15 degrees 09/08/2017 HE RADIANT 4:16 PM CONVERSION CLEARANCE REP R AXIS 30 degrees 09/08/2017 HE RADIANT 4:16 PM CONVERSION CLEARANCE REP T [place] 4 degrees 09/08/2017 HE RADIANT 4:16 PM CONVERSION CLEARANCE REP Interpretation Sinus bradycardia 09/08/2017 HE RAD IANT ECG Left bundle branch block 4:16 PM CONVE RSION Abnormal ECG CLEARANCE REP When compared with ECG of 26-AUG-2017 14:20, Left bundle branch block is now Present Confirmed by MOIZ ??SAMANTHA CLEMENTS LOC:JN ([id number]) on 09/08/2017 4:16:01 PM Specimen Anatomical Collection Method Collection Time Receive d Time (Source) Location / / Volume Laterality 09/08/2017 2:28 PM 8 4:16 CLEARANCE REP PM CLEARANCE REP Historical Provider ECG ORDERABLES Performing Organization Address City/State/ZIP Code Phon e Number HE CARDIOLOGY CONVERSION HE RADIANT CONVERSION documented in this encounter Visit Diagnoses Diagnosis Atrial fibrillation (H) Atrial fibrillation documented in this encounter Care Teams Financial Officer Relationship Specialty Start Date End Date Elyse Paredes MD PCP - General Family Practice 12/22/13 04/21/22 [address] [place] [address] documented as of this encounter
--- OUTSIDE RECORDS SUMMARY | 2022-07-09 14:24 | XMS_ITS | Encounter Summary ---
:1950 Author Organization [facility] Address [address] [place] [address] Care Team Providers Name Role Phone Elyse Paredes MD Primary Care Provider Encounter Details Date Type Department Care Team Description 08/30/2017 Ambulatory - [facility] S/P TAVR [address] (transcatheter aortic [place], [place] valve replace ment) [id number] Social History [...] 128.8 kg (284 lb) 08/30/2017 3:00 PM PUTTY GLAZER Height - - Body Mass Index 50.31 08/26/2017 11:41 AM PUTTY GLAZER documented in this encounter Plan of Treatment [...] lacement) documented in this encounter Care Teams Layer Up Relationship Specialty Start Date End Date Elyse Paredes MD PCP - General Family Practice 12/22/13 04/21/22 [address] [place] [address] documented as of this encounter
--- OUTSIDE RECORDS SUMMARY | 2022-07-09 14:24 | XMS_ITS | Encounter Summary ---
:1950 Author Organization [facility] Address [address] [place] [address] Care Team Providers Name Role Phone Elyse Paredes MD Primary Care Provider Reason for Visit Reason Comments Follow Up Encounter Details Date Type Department Care Team Description 09/01/2017 Office Visit - [facility] Ruby Kirk Persis tent atrial fibrillation (H); [facility] Xena MOYA CNP Chronic diastolic congestive heart failu re (H); [address] Coronary artery disease invo lving [place] coronary artery of [place] heart, angina presence unspecified; [address], Essential hypertension; [place], [place] [address] DEDE on CPAP [address] [place], [place] [phone] [address] Social History Tobacco Use Types Packs/Day Years [...] 128.4 kg (283 lb) 09/01/2017 2:05 PM ABORIGINAL EDUCATION WORKER COORDINATOR Height 160 cm (5' 3) 09/01/2017 2:05 PM ABORIGINAL EDUCATION WORKER COORDINATOR Body Mass Index 50.13 09/01/2017 2:05 PM ABORIGINAL EDUCATION WORKER COORDINATOR documented in this encounter Progress Notes Ruby Kirk APRN CNP - 09/01/2017 2:10 PM CST [facility]--Electrophysiology Assessment/Plan: Problem List Items Addressed This Visit Coronary artery disease involving [place] coronary artery of [place] heart, angina presence unspecified DEDE on CPAP [...] increased risk for stroke. She has a [id number] score of 5 for age 65-74, female gender, CAD, hypertension, and diabetes; long-term oral anticoagulation therapy is recommended per current guidelines. We discussed alternatives to warfarin, particularly Eliquis 5 mg twice daily. She has recently been sensitive to medications, primarily with GI issues, and her studio data analyst is going to be making some changes [...] on exertion) ??? Coronary artery disease involving [place] coronary artery of [place] heart, angina presence unspecified ??? DEDE on [...] Surgeon: Ankush Martinez MD; Location: [facility] Non Licensed Nuclear Plant Operator; Service: ??? CV TRANSFEMORAL TRANSCATHETER VALVE REPLACEMENT N/A 07/06/2017 Procedure: Transfemoral Transcatheter Aortic Valve Replacement; Surgeon: Ankush Martinez MD; Location: [facility] Non Licensed Nuclear Plant Operator; Service: ??? knee replacements Bilateral Allergies Allergen [...] aortic valve is now present, replacing stenotic [place] valve Lab Review Lab Results Component Value [...] 08/26/2017 INR 2.3 08/23/2017 TSH done at [facility] on 03/19/17 2.72 Greater than 45 minutes were spent face to face in this visit with more than 50% of the time discussing diagnoses as listed above, counseling, and coordination of care. Ruby Kirk CNP [facility] Heart [facility], [place], Electrophysiology [phone] This note has been dictated using voice recognition software. Any grammatical, typographical, or context distortions are unintentional and inherent to the software. IGINAL EDUCATION WORKER COORDINATOR documented in this encounter Plan of Treatment Not on filedocumented as of this encounter Procedures Procedure Name Priority Date/Time Associated Diagnosis Comme nts INR POINT OF CARE Routine 09/01/2017 3:01 PM Resu lts for this ABORIGINAL EDUCATION WORKER COORDINATOR procedure are i n the results section. documented in this encounter Results (ABNORMAL) INR point of care (09/01/2017 3:01 PM ABORIGINAL EDUCATION WORKER COORDINATOR) P athologist Signature POC INR 2.20 (A) 0.90 - 1.10 09/01/2017 3:01 PM ABORIGINAL EDUCATION WORKER COORDINATOR Comment: TAKE 1 TABLET(5 MG) BY MOUTH DA MANOJ. ADJUST DOSE BASED ON INR RESULTS DIRECTED Specimen (Source) Anatomical Collection Method Collection Time Re ceived Time Location / / Volume Laterality Blood specimen 09/01/2017 3:01 PM (specimen) ABORIGINAL EDUCATION WORKER COORDINATOR Ruby Kirkjosé antonio MOYA CNP LAB - BLOOD ORDERABLES documented in this encounter Visit Diagnoses Diagnosis Persistent atrial fibrillation (H) Atrial fibrillation Chronic diastolic congestive heart failu re (H) Chronic diastolic heart failure Coronary artery disease involving [place] coronary artery of [place] heart, angina presence unspecified Essential hypertension Unspecified essential hypertension DEDE on CPAP Obstructive sleep apnea (adult) (pediatr ic) documented in this encounter Care Teams Forensic Toxicologist Relationship Specialty Start Date End Date Elyse Paredes MD PCP - General Family Practice 12/22/13 04/21/22 [address] [place] [address] documented as of this encounter
--- OUTSIDE RECORDS SUMMARY | 2022-07-09 14:25 | XMS_ITS | Encounter Summary ---
:1950 Author Organization [facility] Address [address] [place] [address] Care Team Providers Name Role Phone Elyse Paredes MD Primary Care Provider Encounter Details Date Type Department Care Team Description 08/04/2017 Ambulatory - [facility] S/P TAVR [address] (transcatheter aortic [place], [place] valve replace ment) [phone] Social History [...] 127 kg (280 lb) 08/04/2017 11:00 AM FUTURES TRADER Height - - Body Mass Index 51.21 07/29/2017 8:59 AM FUTURES TRADER documented in this encounter Progress Notes Judith [...] treatment plan, please place orders. Signature Date RES TRADER documented in this encounter Plan of Treatment Not on filedocumented as of this encounter Procedures Procedure Name Priority Date/Time Associated Diagnosis Comme nts GLUCOSE BY METER Routine 08/04/2017 12:10 PM Resu lts for this POCT FUTURES TRADER procedure are i n the results section. documented in this encounter Results Glucose by meter POCT (08/04/2017 12:10 PM FUTURES TRADER) athologist Signature GLUCOSE BY 108 mg/dL 08/04/2017 [facility] METER POCT 12:10 PM [facility] POCT RESULTS Comment: [...] specimen 08/04/2017 12:10 8 6:41 (specimen) PM FUTURES TRADER AM FUTURES TRADER Historical Provider LAB - ENTER/EDIT POCT Performing Organization Address City/State/ZIP Code Phon e Number [facility] POCT RESULTS [address] [place] [address] documented in this encounter Visit Diagnoses Diagnosis S/P TAVR (transcatheter aortic valve rep lacement) documented in this encounter Care Teams Grails Web Application Developer Relationship Specialty Start Date End Date Elyse Paredes MD PCP - General Family Practice 12/22/13 04/21/22 [address] [facility] [place] [address] documented as of this encounter
--- OUTSIDE RECORDS SUMMARY | 2022-07-09 14:25 | XMS_ITS | Encounter Summary ---
:1950 Author Organization [facility] Address [address] [place] [address] Care Team Providers Name Role Phone Elyse Paredes MD Primary Care Provider Encounter Details Date Type Department Care Team Description 08/16/2017 Ambulatory - [facility] S/P TAVR [address] (transcatheter aortic [place], [place] valve replace ment) [phone] Social History [...] 127 kg (280 lb) 08/16/2017 11:00 AM WIND TURBINE SERVICE TECHNICIAN Height - - Body Mass Index 51.21 08/05/2017 10:47 AM WIND TURBINE SERVICE TECHNICIAN documented in this encounter Plan of Treatment Not on filedocumented as of this encounter Visit Diagnoses Diagnosis S/P TAVR (transcatheter aortic valve rep lacement) documented in this encounter Care Teams Wellhead Pumper Relationship Specialty Start Date End Date Elyse Paredes MD PCP - General Family Practice 12/22/13 04/21/22 [address] [place], [place] [id number] documented as of this encounter
--- OUTSIDE RECORDS SUMMARY | 2022-07-09 14:25 | XMS_ITS | Encounter Summary ---
:1950 Author Organization [facility] Address [address] [place] [address] Care Team Providers Name Role Phone Dagmar Kang MD Unavailable Elyse Paredes MD Primary Care Provider Dagmar Kang MD Unavailable Raghu Bae MD Primary Care Provider [phone] Nicole Salazar APRN TELETYPE CLERK Unavailable [phone] Encounter Details Date Type Department Care Team Description 08/09/2017 Records - [facility] CONVERSION Scan, Non-Provider Social History Tobacco Use Types Packs/Day Years Used Date Smoking Tobacco: Never Assessed Sex Assigned at Date Recorded Not on file documented as of this encounter Plan of Treatment Not on filedocumented as of this encounter Visit Diagnoses Not on filedocumented in this encounter Care Teams Receiving Operator Relationship Specialty Start Date End Date Elyse Paredes MD PCP - General Family Practice 12/22/13 04/21/22 [address] [place] [address] Raghu Bae PCP - General Emergency Medicine 04/22/22 MD [facility] [address] [place] [address] Dagmar Kang MD Assigned Heart and 02/14/21 02/27/22 [address] [facility], Vascular Provider [address] [place] [address] Dagmar Kang MD Assigned Heart and 03/21/22 04/24/22 [address] [facility], Vascular Provider [address] [place] [address] Nicole Salazar, Assigned Heart and 04/25/22 BARREL ASSEMBLER HELPER TELETYPE CLERK Vascular Provider [address] [facility] [address] [place] [address] documented as of this encounter
--- OUTSIDE RECORDS SUMMARY | 2022-07-09 14:25 | XMS_ITS | Encounter Summary ---
:1950 Author Organization [place] [facility] Address [address] [place] [address] Care Team Providers Name Role Phone Elyse Paredes MD Primary Care Provider Encounter Details Date Type Department Care Team Description 08/26/2017 Anesthesia - [facility] Marquita Tovar MD [address] [address] (Wo rk) Social History Tobacco [...] - No serious adverse event Additional Notes: ENTER AND JOINER Anesthesia Preprocedure Evaluation - Smita Guerrero MD [...] discussed with: patient Post-op plan: routine recovery ENTER AND JOINER documented in this encounter Miscellaneous Notes Anesthesia [...] 10y or did not go to PACU ENTER AND JOINER documented in this encounter Plan of Treatment Not on filedocumented as of this encounter Visit Diagnoses Not on filedocumented in this encounter Care Teams Bank Messenger Relationship Specialty Start Date End Date Elyse Paredes MD PCP - General Family Practice 12/22/13 04/21/22 [address] [place] [address] documented as of this encounter
--- OUTSIDE RECORDS SUMMARY | 2022-07-09 14:25 | XMS_ITS | Encounter Summary ---
:1950 Author Organization [place] Address [address] [place] [address] Care Team Providers Name Role Phone Elyse Paredes MD Primary Care Provider Encounter Details Date Type Department Care Team Description 08/18[facility]2017 [facility]R (transcatheter aort ic valve replacement); [address] S/[place] [phone] Social History Tobacco Use Types Packs/Day Years [...] 127.9 kg (282 lb) 08/18/2017 11:00 AM 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 PROJECT MANAGER Height - - Body Mass Index 51.58 08/05/2017 10:47 AM 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 PROJECT MANAGER documented in this encounter Progress Notes [...] overexertion. 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 Education Goals: Patient can state cardiac s/s [...] Nutrition Interventions: Completed (Had dietary consult at aircraft cylinder mechanic office ) Education Completed Goals Nutrition Goals [...] 51.57 Nutrition Follow-up Follow-up/Discharge: Ate at a [employer] restaurant earlier in the week and weight [...] Follow-up/Discharge: Reports has had dietary consult at aircraft cylinder mechanic office and feels comfortable with knowledge. Is aware of wedger available here if has further questions. PSYCHOSOCIAL Psychosocial Assessment: Reassessment [facility] Q of L Summary Score: 28 [...] and reports anticipates will adjust nicely to senior living. Patient involved in Goal setting?: Yes Signature: Date: Time: documented in this encounter Plan of Treatment Not on filedocumented as of this encounter Visit Diagnoses Diagnosis S/P TAVR (transcatheter aortic valve rep lacement) S/P coronary artery stent placement Postsurgical percutaneous transluminal c oronary angioplasty status documented in this encounter Care Teams Education Specialist Relationship Specialty Start Date End Date Elyse Paredes MD PCP - General Family Practice 12/22/13 04/21/22 [address] [place] [address] documented as of this encounter
--- OUTSIDE RECORDS SUMMARY | 2022-07-09 14:25 | XMS_ITS | Encounter Summary ---
:1950 Author Organization [place] Address [address] [place] [address] Care Team Providers Name Role Phone Elyse Paredes MD Primary Care Provider Reason for Visit Reason Comments Follow Up Encounter Details Date Type Department Care Team Description 07/23/2017 Office Visit - [facility] Tanner Anderson PA-C [address] [place], [place] [phone] Paroxysmal atrial fibrillation (H); [facility] St. Provider, Historical Severe aortic stenosis; [place] Coronary artery disease invo lving [place] coronary artery of [place] heart, angina presence unspecified; [address] Type 2 diabetes mellitus without complication, with long-term current use of insulin (H); [place] S/P TAVR (transcatheter aort ic valve replacement); [place], [place] New onset atr ial fibrillation (H) [phone] Social History Tobacco Use Types Packs/Day Years [...] 125.6 kg (277 lb) 07/23/2017 1:27 PM DIRECTOR INFORMATION SECURITY Height 157.5 cm (5' 2) 07/23/2017 1:27 PM DIRECTOR INFORMATION SECURITY Body Mass Index 50.66 07/23/2017 1:27 PM DIRECTOR INFORMATION SECURITY documented in this encounter Progress Notes Ashley Anderson PA-C - 07/23/2017 1:30 PM CST Images from the original note were not included. Progress Notes by Ashley Anderson PA-C at 07/23/2017 1:30 PM Author: Ashley Anderson PA-C Service: -- Author Type: Physician Actuarial Director Filed: 07/23/2017 3:28 PM Encounter Date: 07/23/2017 Status: Signed [facility]: Ashley Anderson PA-C (Physician Actuarial Director) Click to link to [facility] Heart Care [facility] NOTE Assessment/Recommendations Diagnoses and all [...] that same day. Coronary artery disease involving bishop [place] coronary artery of [place] heart, angina presence unspecified -status post LAD [...] Patient is supposed to be meeting with health information managers to adjust medications now that she does [...] opportunity to see Marci Diaz at the [facility] for her 2 week follow-up visit after TAVR (transcatheter aortic valve replacement). 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 She is independent but [...] no xanthelasma, warm. Neurologic: normal gait, normal crossing supervisor bilateral, no tremors Psychiatric: Normal mood and [...] Surgeon: Ankush Martinez MD; Location: [facility] Metal Work Duct Installer; Service: ? CV TRANSFEMORAL TRANSCATHETER VALVE REPLACEMENT N/A 07/06/2017 Procedure: Transfemoral Transcatheter Aortic Valve Replacement; Surgeon: Ankush Martinez MD; Location: [facility]; Service: ? knee replacements Bilateral Family History [...] inherent to the software. Ashley Harvey PA-C, [facility] CTOR INFORMATION SECURITY documented in this encounter Plan of Treatment Not on filedocumented as of this encounter Visit Diagnoses Diagnosis Paroxysmal atrial fibrillation (H) Atrial fibrillation Severe aortic stenosis Aortic valve disorders Coronary artery disease involving [place] coronary artery of [place] heart, angina presence unspecified Type 2 diabetes mellitus without complic ation, with long-term current use of insulin (H) S/P TAVR (transcatheter aortic valve rep lacement) New onset atrial fibrillation (H) Atrial fibrillation documented in this encounter Care Teams Document Reviewer Relationship Specialty Start Date End Date Elyse Paredes MD PCP - General Family Practice 12/22/13 04/21/22 1540 [place] [address] documented as of this encounter
--- OUTSIDE RECORDS SUMMARY | 2022-07-09 14:25 | XMS_ITS | Encounter Summary ---
:1950 Author Organization [place] Address [address] [place] [address] Care Team Providers Name Role Phone Elyse Paredes MD Primary Care Provider Encounter Details Date Type Department Care Team Description 08/23/2017 Ambulatory - [facility] S/P TAVR [facility] St[facility] Debby raya (transcatheter aortic [address] valve replacement) [place] [phone] Social History Tobacco Use Types [...] coming procedures. Cautioned about using Herbal medication. 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
--- OUTSIDE RECORDS SUMMARY | 2022-07-09 14:25 | XMS_ITS | Encounter Summary ---
:1950 Author Organization [facility] Address [address] [place] [address] Care Team Providers Name Role Phone Elyse Paredes MD Primary Care Provider Reason for Visit Reason Comments Other Encounter Details Date Type Department Care Team Description 07/23/2017 [facility] Tanner Anderson PA-C [address] [facility] Heart [address] [phone] Social History Tobacco Use Types Packs/Day Years Used Date Smoking Tobacco: Never Assessed Sex Assigned at Date Recorded Not on file documented as of this encounter Plan of Treatment Not on filedocumented as of this encounter Visit Diagnoses Diagnosis Paroxysmal atrial fibrillation (H) Atrial fibrillation documented in this encounter Care Teams Back Padder Relationship Specialty Start Date End Date Elyse Paredes MD PCP - General Family Practice 12/22/13 04/21/22 1540 [place] [address] documented as of this encounter
--- OUTSIDE RECORDS SUMMARY | 2022-07-09 14:25 | XMS_ITS | Encounter Summary ---
:1950 Author Organization [place] Address [address] [place] [address]. [place] [address] Care Team Providers Name Role Phone Elyse Paredes MD Primary Care Provider Reason for Visit Reason Comments Other FOLLOWING FOR CV Encounter Details Date Type Department Care Team Description 07/30/2017 Ambulatory - [facility] [address] [facility] [address] [place] [phone] Social History Tobacco Use Types Packs/Day Years Used Date Smoking Tobacco: Never Assessed Sex Assigned at Date Recorded Not on file documented as of this encounter Progress Notes Sina Olivo - 07/30/2017 12:50 PM CST Pt was seen by Roland lau INR's to be followed with us Pt is aware of plan and has my direct number to call MAN documented in this encounter Plan of Treatment Not on filedocumented as of this encounter Visit Diagnoses Not on filedocumented in this encounter Care Teams Structural Steel Trades Worker Relationship Specialty Start Date End Date Elyse Paredes MD PCP - General Family Practice 12/22/13 04/21/22 [address] [place] [address] documented as of this encounter
--- OUTSIDE RECORDS SUMMARY | 2022-07-09 14:25 | XMS_ITS | Encounter Summary ---
:1950 Author Organization [place] Address [address] [place] [address] Care Team Providers Name Role Phone Elyse Paredes MD Primary Care Provider Reason for Visit Reason Comments Other CV PREP Encounter Details Date Type Department Care Team Description 08/23/2017 [facility] [address] [facility] [address] [place] [phone] Social History Tobacco Use Types Packs/Day Years Used Date Smoking Tobacco: Never Assessed Sex Assigned at Date Recorded Not on file documented as of this encounter Progress Notes Sina Olivo - 08/23/2017 2:41 PM CST 1950 (home) There is no such number on file (mobile). +++Important patient information for CSC/Temperature Control Inspector staff : PT IS DIABETIC, PT IS DEDE/CPAP, PT IS NEW COUMADIN+++ [facility] EP Temperature Control Inspector Procedure Order Cardioversion: Cardioversion PT NEW ON COUMADIN, INR'S ARE IN EPIC UNDER LAB TAB 08/23=2.3 08/16=4.4 08/09=3.0 08/06=3.4 07/27=1.6 Diagnosis: AF Anticipated Case Duration: Standard Scheduling Needs/Timeframe: PT IS SET FOR 08/26/2017 AT 11 30 WITH ROLAND SALAZAR NATURAL FABRICATOR Current Device: None None Device Company/Device Rep Needed for Procedure: None Anesthesia: General-CV Only Research Protocol: No [facility] EP Temperature Control Inspector Prep Ordering Provider: Roland Salazar WOOD GANG SAWYER Ordering Date: 07/29/2018 Orders Status: Intial order placed and Order set placed EP NC Contact: Tarah Olivo LPN H&P: Compled by ROLAND SALAZAR NATURAL FABRICATOR on 07/29/2017 PCP: Elyse Paredes MD, Pre-op Labs: N/A for procedure Medical Records Pertinent for Procedure: N/A Patient Education: PT HAS A OUTSIDE SALES EXECUTIVE FOR PROCEDURE PT INSTRUCTED TO HOLD ANY VITAMIN, MINERALS, CALCIUM, IRON OR SUPPLEMENTS THE MORNING OF CV PT IS DEDE/CPAP PT IS DIABETIC, INSTRUCTED TO HOLD HER NOVOLOG MORNING OF CV, PER AUG NO CHANGE IN LANT[place] PT INSTRUCTED TO TAKE METOPROLOL TARTRATE 25 MG THE A.M. OF CV PT IS TO HAVE FOLLOW UP WITH ROLAND IN 4 WEEKS AND SERVER SERVICE ASSISTANT HAS BEEN NOTIFIED. Teach with Patient: Completed [...] time and date of procedure by CV chief innovation officer, Transportation arrangements needed s/p procedure, Post-procedure follow [...] RESULTS DIRECTED, Disp: 30 tablet, Rfl: 0 DOG VENDOR documented in this encounter Plan of Treatment Not on filedocumented as of this encounter Visit Diagnoses Not on filedocumented in this encounter Care Teams Policy Officer Relationship Specialty Start Date End Date Elyse Paredes MD PCP - General Family Practice 12/22/13 04/21/22 [address] [place] [address] documented as of this encounter
--- OUTSIDE RECORDS SUMMARY | 2022-07-09 14:25 | XMS_ITS | Encounter Summary ---
:1950 Author Organization [place] Address [address] [place] [address] Care Team Providers Name Role Phone Elyse Paredes MD Primary Care Provider Encounter Details Date Type Department Care Team Description 08/[facility]/2017 [facility]/P TAVR (transcatheter aort ic valve replacement); [address] S/[place] [phone] Social History Tobacco Use Types Packs/Day Years [...] 127.9 kg (282 lb) 08/25/2017 11:00 AM CLINIC PHYSICIAN DIRECTOR Height - - Body Mass Index 51.58 08/05/2017 10:47 AM CLINIC PHYSICIAN DIRECTOR documented in this encounter Plan of Treatment Not on filedocumented as of this encounter Visit Diagnoses Diagnosis S/P TAVR (transcatheter aortic valve rep lacement) S/P coronary artery stent placement Postsurgical percutaneous transluminal c oronary angioplasty status documented in this encounter Care Teams First Aid Teacher Relationship Specialty Start Date End Date Elyse Paredes MD PCP - General Family Practice 12/22/13 04/21/22 1540 [place] [address] documented as of this encounter
--- OUTSIDE RECORDS SUMMARY | 2022-07-09 14:25 | XMS_ITS | Encounter Summary ---
:1950 Author Organization [place] Address [address] [place] [address] Care Team Providers Name Role Phone Elyse Paredes MD Primary Care Provider Encounter Details Date Type Department Care Team Description 07/27/2017 [facility]/P TAVR (transcatheter aort ic valve replacement); [address] S/[place] coronary [place] [phone] Social History Tobacco Use Types Packs/Day Years [...] 127 kg (280 lb) 07/27/2017 2:00 PM LOADER ENGINEER Height - - Body Mass Index 51.21 07/23/2017 1:27 PM LOADER ENGINEER documented in this encounter Plan of Treatment Not on filedocumented as of this encounter Visit Diagnoses Diagnosis S/P TAVR (transcatheter aortic valve rep lacement) S/P coronary artery stent placement Postsurgical percutaneous transluminal c oronary angioplasty status documented in this encounter Care Teams Credit Coordinator Relationship Specialty Start Date End Date Elyse Paredes MD PCP - General Family Practice 12/22/13 04/21/22 1540 [place] [address] documented as of this encounter
--- OUTSIDE RECORDS SUMMARY | 2022-07-09 14:25 | XMS_ITS | Encounter Summary ---
:1950 Author Organization [place] Address [address] [place] [address] Care Team Providers Name Role Phone Elyse Paredes MD Primary Care Provider Encounter Details Date Type Department Care Team Description 08/04/2017 [facility] Gabrielle Golden S/P TAVR [facility] Dora RN (transcatheter [place] aortic valve [address] [facility] replacement) [address] [place] [phone] Social History Tobacco Use Types Packs/Day Years [...] coming procedures. Cautioned about using Herbal medication. [employer] documented in this encounter Plan of Treatment [...] lacement) documented in this encounter Care Teams Ammonia Still Operator Relationship Specialty Start Date End Date Elyse Paredes MD PCP - General Family Practice 12/22/13 04/21/22 0780 [place] [address] documented as of this encounter
--- OUTSIDE RECORDS SUMMARY | 2022-07-09 14:25 | XMS_ITS | Encounter Summary ---
:1950 Author Organization [place] Address [address] [place] [address] Care Team Providers Name Role Phone Elyse Paredes MD Primary Care Provider Reason for Visit Reason Comments Other Encounter Details Date Type Department Care Team Description 07/29/2017 [facility] Other [facility] Debby Ng APRN [address] [facility] [phone] [address] [place] [address] Social History Tobacco Use Types Packs/Day Years Used Date Smoking Tobacco: Never Assessed Sex Assigned at Date Recorded Not on file documented as of this encounter Plan of Treatment Not on filedocumented as of this encounter Visit Diagnoses Diagnosis Persistent atrial fibrillation (H) Atrial fibrillation documented in this encounter Care Teams Hospice Executive Director Relationship Specialty Start Date End Date Elyse Paredes MD PCP - General Family Practice 12/22/13 04/21/22 1540 [place] [address] documented as of this encounter
--- OUTSIDE RECORDS SUMMARY | 2022-07-09 14:25 | XMS_ITS | Encounter Summary ---
:1950 Author Organization [place] Address [address] [place] [address] Care Team Providers Name Role Phone Elyse Paredes MD Primary Care Provider Encounter Details Date Type Department Care Team Description 08/09/2017 Ambulatory - [facility] S/P TAVR [address] (transcatheter aortic [place], [place] valve replace ment) [phone] Social History [...] 127 kg (280 lb) 08/09/2017 11:00 AM GENERAL REPAIRER Height - - Body Mass Index 51.21 08/05/2017 10:47 AM GENERAL REPAIRER documented in this encounter Plan of Treatment Not on filedocumented as of this encounter Visit Diagnoses Diagnosis S/P TAVR (transcatheter aortic valve rep lacement) documented in this encounter Care Teams Director Of Application Development Relationship Specialty Start Date End Date Elyse Paredes MD PCP - General Family Practice 12/22/13 04/21/22 1540 [place], [place] [phone] documented as of this encounter
--- OUTSIDE RECORDS SUMMARY | 2022-07-09 14:25 | XMS_ITS | Encounter Summary ---
:1950 Author Organization [place] Address [address] [place] [address] Care Team Providers Name Role Phone Elyse Paredes MD Primary Care Provider Encounter Details Date Type Department Care Team Description 08/13/2017 [facility]P TAVR (transcatheter aort ic valve replacement); [address] S/[place] coronary [place] [phone] Social History Tobacco Use Types Packs/Day Years [...] 127 kg (280 lb) 08/13/2017 11:00 AM JACQUARD LOOM HEDDLES TIER Height - - Body Mass Index 51.21 08/05/2017 10:47 AM JACQUARD LOOM HEDDLES TIER documented in this encounter Plan of Treatment Not on filedocumented as of this encounter Visit Diagnoses Diagnosis S/P TAVR (transcatheter aortic valve rep lacement) S/P coronary artery stent placement Postsurgical percutaneous transluminal c oronary angioplasty status documented in this encounter Care Teams Electrical Parts Reconditioner Relationship Specialty Start Date End Date Elyse Paredes MD PCP - General Family Practice 12/22/13 04/21/22 1540 [place] [address] documented as of this encounter
--- OUTSIDE RECORDS SUMMARY | 2022-07-09 14:25 | XMS_ITS | Encounter Summary ---
:1950 Author Organization [facility] Address [address] [place] [address] Care Team Providers Name Role Phone Elyse Paredes MD Primary Care Provider Encounter Details Date Type Department Care Team Description 07/29/2017 [facility] S/P TAVR (transcatheter aort ic valve replacement); [address] S/P coronary [place] [phone] Social History Tobacco Use Types Packs/Day Years [...] 127 kg (280 lb) 07/29/2017 2:00 PM PRODUCTION GRAPHIC DESIGNER Height - - Body Mass Index 51.21 07/29/2017 8:59 AM PRODUCTION GRAPHIC DESIGNER documented in this encounter Plan of Treatment Not on filedocumented as of this encounter Visit Diagnoses Diagnosis S/P TAVR (transcatheter aortic valve rep lacement) S/P coronary artery stent placement Postsurgical percutaneous transluminal c oronary angioplasty status documented in this encounter Care Teams [employer] Art Teacher Relationship Specialty Start Date End Date Elyse Paredes MD PCP - General Family Practice 12/22/13 04/21/22 1540 [place] [address] documented as of this encounter
--- OUTSIDE RECORDS SUMMARY | 2022-07-09 14:25 | XMS_ITS | Encounter Summary ---
:1950 Author Organization [place] Address [address] [place] [address] Care Team Providers Name Role Phone Elyse Paredes MD Primary Care Provider Encounter Details Date Type Department Care Team Description 08/05/2017 Hospital Encounter [facility] Michelle, S/P TAVR St. Randy Lechuga MD (transcatheter [facility] [address] [facility] aortic valve [address] replacement) [place] [address] [phone] Social History Tobacco Use Types Packs/Day Years [...] 127 kg (280 lb) 08/05/2017 10:43 AM GEOGRAPHIC INFORMATION SYSTEMS MANAGER Height 157.5 cm (5' 2) 08/05/2017 10:43 AM GEOGRAPHIC INFORMATION SYSTEMS MANAGER Body Mass Index 51.21 08/05/2017 10:43 AM GEOGRAPHIC INFORMATION SYSTEMS MANAGER documented in this encounter Medications at [...] 10:43 AM S/P TAVR Results for this GEOGRAPHIC INFORMATION SYSTEMS MANAGER (transcatheter aortic proced ure are in the valve replacement) results s ection. documented in this encounter Results Echocardiogram Complete (08/05/2017 10:43 AM GEOGRAPHIC INFORMATION SYSTEMS MANAGER) [facility] gist Method Time Signature LV volume diastolic 51 46 - 106 08/05/2017 cm3 3:20 PM GEOGRAPHIC INFORMATION SYSTEMS MANAGER LV volume systolic 20 14 - 42 08/05/2017 cm3 3:20 PM GEOGRAPHIC INFORMATION SYSTEMS MANAGER HR 87 bpm 08/05/2017 3:20 PM GEOGRAPHIC INFORMATION SYSTEMS MANAGER INTERVENTRICULAR 1.2 0.6 - 0.9 08/05/2017 SEPTUM IN END cm 3:20 PM GEOGRAPHIC INFORMATION SYSTEMS MANAGER DIASTOLE LVIDd 4.7 3.8 - 5.2 08/05/2017 cm 3:20 PM GEOGRAPHIC INFORMATION SYSTEMS MANAGER LVIDs 3.3 2.2 - 3.5 08/05/2017 cm 3:20 PM GEOGRAPHIC INFORMATION SYSTEMS MANAGER LVOT diam 2 cm 08/05/2017 3:20 PM GEOGRAPHIC INFORMATION SYSTEMS MANAGER LEFT VENTRICULAR 3 mmHg 08/05/2017 OUTFLOW TRACT MEAN 3:20 PM GEOGRAPHIC INFORMATION SYSTEMS MANAGER GRADIENT LVOT peak VTI 27.3 cm 08/05/2017 3:20 PM GEOGRAPHIC INFORMATION SYSTEMS MANAGER LEFT VENTRICULAR 83.4 cm/s 08/05/2017 OUTFLOW TRACT MEAN 3:20 PM GEOGRAPHIC INFORMATION SYSTEMS MANAGER VELOCITY LVOT peak oniel 114 cm/s 08/05/2017 3:20 PM GEOGRAPHIC INFORMATION SYSTEMS MANAGER LEFT VENTRICULAR 5 mmHg 08/05/2017 OUTFLOW TRACT PEAK 3:20 PM GEOGRAPHIC INFORMATION SYSTEMS MANAGER GRADIENT LV PWd 1.2 0.6 - 0.9 08/05/2017 cm 3:20 PM GEOGRAPHIC INFORMATION SYSTEMS MANAGER MV E'TISSUE ONIEL-LAT 8.29 cm/s 08/05/2017 3:20 PM GEOGRAPHIC INFORMATION SYSTEMS MANAGER MV E' med oniel 8.97 cm/s 08/05/2017 3:20 PM GEOGRAPHIC INFORMATION SYSTEMS MANAGER AV mean oniel 218 cm/s 08/05/2017 3:20 PM GEOGRAPHIC INFORMATION SYSTEMS MANAGER AV mean gradient 11 mmHg 08/05/2017 3:20 PM GEOGRAPHIC INFORMATION SYSTEMS MANAGER AV VTI 58.4 cm 08/05/2017 3:20 PM GEOGRAPHIC INFORMATION SYSTEMS MANAGER AV peak oniel 210.0 cm/s 08/05/2017 3:20 PM GEOGRAPHIC INFORMATION SYSTEMS MANAGER AO root 3.4 cm 08/05/2017 3:20 PM GEOGRAPHIC INFORMATION SYSTEMS MANAGER LA size 4.1 cm 08/05/2017 3:20 PM GEOGRAPHIC INFORMATION SYSTEMS MANAGER MV decel slope 5,630 mm/s2 08/05/2017 3:20 PM GEOGRAPHIC INFORMATION SYSTEMS MANAGER MV decel time 176 ms 08/05/2017 3:20 PM GEOGRAPHIC INFORMATION SYSTEMS MANAGER MV P 1/2 time 77 ms 08/05/2017 3:20 PM GEOGRAPHIC INFORMATION SYSTEMS MANAGER MV peak E oniel 135 cm/s 08/05/2017 3:20 PM GEOGRAPHIC INFORMATION SYSTEMS MANAGER MV mean oniel 88.2 cm/s 08/05/2017 3:20 PM GEOGRAPHIC INFORMATION SYSTEMS MANAGER MV mean gradient 4 mmHg 08/05/2017 3:20 PM GEOGRAPHIC INFORMATION SYSTEMS MANAGER MV VTI 29.1 cm 08/05/2017 3:20 PM GEOGRAPHIC INFORMATION SYSTEMS MANAGER MV peak Velocity 148 cm/s 08/05/2017 3:20 PM GEOGRAPHIC INFORMATION SYSTEMS MANAGER LA AREA 2 16.8 cm2 08/05/2017 3:20 PM GEOGRAPHIC INFORMATION SYSTEMS MANAGER LA AREA 1 21.5 cm2 08/05/2017 3:20 PM GEOGRAPHIC INFORMATION SYSTEMS MANAGER LEFT ATRIUM LENGTH 5.19 cm 08/05/2017 3:20 PM GEOGRAPHIC INFORMATION SYSTEMS MANAGER TAPSE 1.9 cm 08/05/2017 3:20 PM GEOGRAPHIC INFORMATION SYSTEMS MANAGER BSA 2.35 m2 08/05/2017 3:20 PM GEOGRAPHIC INFORMATION SYSTEMS MANAGER End systolic index 62 in 08/05/2017 (mL/m2) 3:20 PM GEOGRAPHIC INFORMATION SYSTEMS MANAGER End diastolic index 4,480 lbs 08/05/2017 (mL/m2) 3:20 PM GEOGRAPHIC INFORMATION SYSTEMS MANAGER IVS/PW RATIO 1.0 08/05/2017 3:20 PM GEOGRAPHIC INFORMATION SYSTEMS MANAGER LV FS 29.8 28 - 44 % 08/05/2017 3:20 PM GEOGRAPHIC INFORMATION SYSTEMS MANAGER Ejection Fraction 61 55 - 75 % 08/05/2017 3:20 PM GEOGRAPHIC INFORMATION SYSTEMS MANAGER LA volume 59.2 mL 08/05/2017 3:20 PM GEOGRAPHIC INFORMATION SYSTEMS MANAGER LV mass 212.0 g 08/05/2017 3:20 PM GEOGRAPHIC INFORMATION SYSTEMS MANAGER AV area 1.5 cm2 08/05/2017 3:20 PM GEOGRAPHIC INFORMATION SYSTEMS MANAGER AV DIM IND oniel 0.5 08/05/2017 3:20 PM GEOGRAPHIC INFORMATION SYSTEMS MANAGER MV area p 1/2 time 2.9 cm2 08/05/2017 3:20 PM GEOGRAPHIC INFORMATION SYSTEMS MANAGER MV area cont eq 2.9 cm2 08/05/2017 3:20 PM GEOGRAPHIC INFORMATION SYSTEMS MANAGER LVOT area 3.14 cm2 08/05/2017 3:20 PM GEOGRAPHIC INFORMATION SYSTEMS MANAGER LVOT SV 85.7 cm3 08/05/2017 3:20 PM GEOGRAPHIC INFORMATION SYSTEMS MANAGER AV peak gradient 17.6 mmHg 08/05/2017 3:20 PM GEOGRAPHIC INFORMATION SYSTEMS MANAGER MV peak gradient 8.8 mmHg 08/05/2017 3:20 PM GEOGRAPHIC INFORMATION SYSTEMS MANAGER LV systolic volume 8.5 11 - 31 08/05/2017 index cm3/m2 3:20 PM GEOGRAPHIC INFORMATION SYSTEMS MANAGER LV diastolic volume 21.7 34 - 74 08/05/2017 index cm3/m2 3:20 PM GEOGRAPHIC INFORMATION SYSTEMS MANAGER LA volume index 25.2 mL/m2 08/05/2017 3:20 PM GEOGRAPHIC INFORMATION SYSTEMS MANAGER LEFT VENTRICLE MASS 90.2 g/m2 08/05/2017 INDEX 3:20 PM GEOGRAPHIC INFORMATION SYSTEMS MANAGER LV SVi 36.5 ml/m2 08/05/2017 3:20 PM GEOGRAPHIC INFORMATION SYSTEMS MANAGER MV med E/e' ratio 15.1 08/05/2017 3:20 PM GEOGRAPHIC INFORMATION SYSTEMS MANAGER MV lat E/e' ratio 16.3 08/05/2017 3:20 PM GEOGRAPHIC INFORMATION SYSTEMS MANAGER LV CO 7.5 l/min 08/05/2017 3:20 PM GEOGRAPHIC INFORMATION SYSTEMS MANAGER LV Ci 3.2 l/min/m2 08/05/2017 3:20 PM GEOGRAPHIC INFORMATION SYSTEMS MANAGER Height 62.0 in 08/05/2017 3:20 PM GEOGRAPHIC INFORMATION SYSTEMS MANAGER Weight 280 lbs 08/05/2017 3:20 PM GEOGRAPHIC INFORMATION SYSTEMS MANAGER MV AVERAGE E/E' 15.6 cm/s 08/05/2017 RATIO 3:20 PM GEOGRAPHIC INFORMATION SYSTEMS MANAGER AV DIMENSIONLESS 0.5 08/05/2017 INDEX VTI 3:20 PM GEOGRAPHIC INFORMATION SYSTEMS MANAGER MV AREA VTI 2.95 cm2 08/05/2017 3:20 PM GEOGRAPHIC INFORMATION SYSTEMS MANAGER Anatomical Region Laterality Modality Echocardiography Specimen (Source) Anatomical Collection Method Collection Time Re ceived Time Location / / Volume Laterality 08/05/2017 10:04 AM GEOGRAPHIC INFORMATION SYSTEMS MANAGER Narrative 08/05/2017 3:20 PM GEOGRAPHIC INFORMATION SYSTEMS MANAGER ?? Left ventricle ejection fraction is normal. [...] lacement) documented in this encounter Care Teams Therapeutic Massage Technician Relationship Specialty Start Date End Date Elyse Paredes MD PCP - General Family Practice 12/22/13 04/21/22 [address] [place] [address] documented as of this encounter
--- OUTSIDE RECORDS SUMMARY | 2022-07-09 14:25 | XMS_ITS | Encounter Summary ---
:1950 Author Organization [place] Address [address] [place] [address] Care Team Providers Name Role Phone Elyse Paredes MD Primary Care Provider Encounter Details Date Type Department Care Team Description 07/27/2017 Ambulatory - [facility] Gabrielle Golden fi brillation (H); [facility] Dora RN S/P TAVR (trans catheter aortic valve replacement) [address] [place] [address] Social History Tobacco Use Types [...] coming procedures. Cautioned about using Herbal medication. WHEELER documented in this encounter Plan of Treatment Not on filedocumented as of this encounter Visit Diagnoses Diagnosis Atrial fibrillation (H) Atrial fibrillation S/P TAVR (transcatheter aortic valve rep lacement) documented in this encounter Care Teams Boiler Engineer Relationship Specialty Start Date End Date Elyse Paredes MD PCP - General Family Practice 12/22/13 04/21/22 [address] [address] documented as of this encounter
--- OUTSIDE RECORDS SUMMARY | 2022-07-09 14:25 | XMS_ITS | Encounter Summary ---
:1950 Author Organization [place] Address [address] [place] [address] Care Team Providers Name Role Phone Elyse Paredes MD Primary Care Provider Reason for Visit Reason Comments Follow Up Encounter Details Date Type Department Care Team Description 07/29/2017 Office Visit - [facility] Jun Salazar atrial fibrillation (H[facility]PA P; Fransico HYDE Essential hypertension; [address] [facility] S/P TAVR (transcatheter aort ic valve replacement) [place], [place] [address] [address] [place], [place] [phone] [address] Social History Tobacco Use Types Packs/Day Years [...] (280 lb 3.2 oz) 07/29/2017 8:59 AM BACKSHOE PERSON Height 157.5 cm (5' 2) 07/29/2017 8:59 AM BACKSHOE PERSON Body Mass Index 51.25 07/29/2017 8:59 AM BACKSHOE PERSON documented in this encounter Progress Notes Nicole Salazar APRN APPRAISER PERSONAL PROPERTY - 07/29/2017 9:10 AM CST [facility] Arrhythmia Clinic Assessment/Plan: Diagnoses and [...] on exertion is significantly better since Ashley SALES PLANNER started metoprolol tartrate 25 mg twice daily. [...] Her sugars have been running high recently. [id number] score of 5 with one point each for age 65-74, female gender, coronary artery disease, hypertension and type 2 diabetes. She has mild kidney dysfunction . I contrasted warfarin with novel anticoagulants. I discussed risk of other bleeding with anticoagulation. Guidelines recommend anticoagulation due to [id number] score of 5 unless risk greater than [...] set up INRs weekly in case Dr. Martinez wants her to stay on warfarin. To [...] labs); Standing 40 minutes were spent in [id number] counseling regarding above diagnoses and options for treatment. Subjective: I had the opportunity to see Marci Diaz at the [facility]. Marci Diaz is [...] on exertion) ??? Coronary artery disease involving [place] coronary artery of [place] heart, angina presence unspecified ??? DEDE on [...] Coronary Angiogram; Surgeon: Ankush Martinez MD; Location: [facility] Machine Long Goods Helper; Service: ??? CV TRANSFEMORAL TRANSCATHETER VALVE REPLACEMENT N/A 07/06/2017 Procedure: Transfemoral Transcatheter Aortic Valve Replacement; Surgeon: Ankush Martinez MD; Location: [facility] [employer]; Service: ??? knee replacements Bilateral Social History: [...] aortic valve is now present, replacing stenotic [place] valve Results for orders placed during the [...] ms QTC CALCULATION (BEZET) 414 ms P Clayton 60 degrees R AXIS 10 degrees T AXIS 21 degrees MUSE DIAGNOSIS Sinus bradycardia with sinus arrhythmia Otherwise normal ECG When compared with ECG of 06-JUL-2017 14:35, No significant change was found Confirmed by OPAL CLEMENTS, LES LOC:JN ([id number]) on 07/07/2017 3:53:52 PM TSH: No results [...] inherent to the software. TASHIA SALAZAR RN, [facility] [phone] SHOE PERSON documented in this encounter Plan of Treatment Not on filedocumented as of this encounter Visit Diagnoses Diagnosis Persistent atrial fibrillation (H) Atrial fibrillation DEDE on CPAP Obstructive sleep apnea (adult) (pediatr ic) Essential hypertension Unspecified essential hypertension S/P TAVR (transcatheter aortic valve rep lacement) documented in this encounter Care Teams Clinical Support Manager Relationship Specialty Start Date End Date Elyse Paredes MD PCP - General Family Practice 12/22/13 04/21/22 [address] [place] [address] documented as of this encounter
--- OUTSIDE RECORDS SUMMARY | 2022-07-09 14:25 | XMS_ITS | Encounter Summary ---
:1950 Author Organization [place] Address [address] [place] [address] Care Team Providers Name Role Phone Elyse Paredes MD Primary Care Provider Encounter Details Date Type Department Care Team Description 08/06/2017 Ambulatory - [facility] S/P TAVR [facility] aortic [address] valve replacement) [place] [address] Social History Tobacco Use Types Packs/Day Years Used Date Smoking Tobacco: Never Assessed Sex Assigned at Date Recorded Not on file documented as of this encounter Progress Notes Gabrielle Golden RN - 08/06/2017 1:00 PM CST INR 3.4 will take 2.5 mg today and then 5 mg. Retest on Wednesday-. [facility] documented in this encounter Plan of Treatment [...] lacement) documented in this encounter Care Teams Corporate Manager Relationship Specialty Start Date End Date Elyse Paredes MD PCP - General Family Practice 12/22/13 04/21/22 [address] [place] [address] documented as of this encounter
--- OUTSIDE RECORDS SUMMARY | 2022-07-09 14:25 | XMS_ITS | Encounter Summary ---
:1950 Author Organization [place] Address [address] [place] [address] Care Team Providers Name Role Phone Elyse Paredes MD Primary Care Provider Encounter Details Date Type Department Care Team Description 07/27/2017 Ambulatory - [facility] Provider, S/P TAVR [facility] Fransico aortic valve [address] replacement) [place] [address] Social History Tobacco Use Types Packs/Day Years Used Date Smoking Tobacco: Never Assessed Sex Assigned at Date Recorded Not on file documented as of this encounter Plan of Treatment Not on filedocumented as of this encounter Visit Diagnoses Diagnosis S/P TAVR (transcatheter aortic valve rep lacement) documented in this encounter Care Teams Plasterer Spot Relationship Specialty Start Date End Date Elyse Paredes MD PCP - General Family Practice 12/22/13 04/21/22 [address] [place], [place] [id number] documented as of this encounter
--- OUTSIDE RECORDS SUMMARY | 2022-07-09 14:25 | XMS_ITS | Encounter Summary ---
:1950 Author Organization [place] Address [address] [place] [address] Care Team Providers Name Role Phone Elyse Paredes MD Primary Care Provider Encounter Details Date Type Department Care Team Description [facility]/20/2017 [facility] S/P TAVR (transcatheter aort ic valve replacement); [address] S/[place] [phone] Social History Tobacco Use Types Packs/Day Years [...] 127 kg (280 lb) 08/20/2017 11:00 AM PRINCIPAL JAVA SOFTWARE ENGINEER Height - - Body Mass Index 51.21 08/05/2017 10:47 AM PRINCIPAL JAVA SOFTWARE ENGINEER documented in this encounter Plan of Treatment Not on filedocumented as of this encounter Visit Diagnoses Diagnosis S/P TAVR (transcatheter aortic valve rep lacement) S/P coronary artery stent placement Postsurgical percutaneous transluminal c oronary angioplasty status documented in this encounter Care Teams Compliance Review Specialist Relationship Specialty Start Date End Date Elyse Paredes MD PCP - General Family Practice 12/22/13 04/21/22 [address] [place] [address] documented as of this encounter
--- OUTSIDE RECORDS SUMMARY | 2022-07-09 14:25 | XMS_ITS | Encounter Summary ---
:1950 Author Organization [place] Address [address] [place] [address] Care Team Providers Name Role Phone Elyse Paredes MD Primary Care Provider Encounter Details Date Type Department Care Team Description 08/11/2017 Ambulatory - [facility] S/P TAVR (transcatheter aort ic valve replacement); [address] S/[place] coronary [place] [address] Social History Tobacco Use Types [...] 127 kg (280 lb) 08/11/2017 11:00 AM SPECIAL FORCES ENGINEER SERGEANT Height - - Body Mass Index 51.21 08/05/2017 10:47 AM SPECIAL FORCES ENGINEER SERGEANT documented in this encounter Plan of Treatment Not on filedocumented as of this encounter Procedures Procedure Name Priority Date/Time Associated Diagnosis Comme nts GLUCOSE BY METER Routine 08/11/2017 11:59 AM Resu lts for this POCT SPECIAL FORCES ENGINEER SERGEANT procedure are i n the results section. documented in this encounter Results Glucose by meter POCT (08/11/2017 11:59 AM SPECIAL FORCES ENGINEER SERGEANT) P athologist Signature GLUCOSE BY 176 mg/dL 08/11/2017 [facility] METER POCT 11:59 AM [facility] POCT RESULTS Comment: Reference Ranges ? [...] specimen 08/11/2017 11:59 8 6:39 (specimen) AM SPECIAL FORCES ENGINEER SERGEANT AM SPECIAL FORCES ENGINEER SERGEANT Historical Provider LAB - ENTER/EDIT POCT Performing Organization Address City/State/ZIP Code Phon e Number [facility] POCT RESULTS [address] [place] [address] documented in this encounter Visit Diagnoses Diagnosis S/P TAVR (transcatheter aortic valve rep lacement) S/P coronary artery stent placement Postsurgical percutaneous transluminal c oronary angioplasty status documented in this encounter Care Teams Hotel Front Desk Clerk Relationship Specialty Start Date End Date Elyse Paredes MD PCP - General Family Practice 12/22/13 04/21/22 [address] [place] [address] documented as of this encounter
--- OUTSIDE RECORDS SUMMARY | 2022-07-09 14:25 | XMS_ITS | Encounter Summary ---
:1950 Author Organization [place] Address [address] [place] [address] Care Team Providers Name Role Phone Elyse Paredes MD Primary Care Provider Reason for Visit Reason Comments Follow Up Encounter Details Date Type Department Care Team Description 08/05/2017 Office Visit - M [facility] Michelle, Aortic v alvular stenosis; [facility] St. Ankush MD S/P TAVR (transcatheter aortic valve rep lacement) [address] [place] [address] [phone] Social History Tobacco Use Types Packs/Day Years [...] (281 lb 4.8 oz) 08/05/2017 10:47 AM SENIOR CARE ASSISTANT Height 157.5 cm (5' 2) 08/05/2017 10:47 AM SENIOR CARE ASSISTANT Body Mass Index 51.45 08/05/2017 10:47 AM SENIOR CARE ASSISTANT documented in this encounter Progress Notes Ankush Martinez MD - 08/05/2017 11:10 AM CST [facility] Note Assessment / Plan: Ms Diaz is [...] pleasure to see Marci Diaz at the [facility] for 30 day follow-up aftertranscatheter aortic [...] on exertion) ??? Coronary artery disease involving [place] coronary artery of [place] heart, angina presence unspecified ??? DEDE on [...] Coronary Angiogram; Surgeon: Ankush Martinez MD; Location: [facility] Junior Account Executive; Service: ??? CV TRANSFEMORAL TRANSCATHETER VALVE REPLACEMENT N/A 07/06/2017 Procedure: Transfemoral Transcatheter Aortic Valve Replacement; Surgeon: Ankush Martinez MD; Location: [facility] Junior Account Executive; Service: ??? knee replacements Bilateral Social History: [...] Cath films independently reviewed ANKUSH MARTINEZ MD [facility] OR CARE ASSISTANT documented in this encounter Plan of Treatment Not on filedocumented as of this encounter Procedures Procedure Name Priority Date/Time Associated Diagnosis Comme nts BASIC METABOLIC Routine 08/05/2017 10:46 AM Resul ts for this PANEL SENIOR CARE ASSISTANT procedure are i n the results section. CBC WITH PLATELETS Routine 08/05/2017 10:46 AM Re sults for this SENIOR CARE ASSISTANT procedure are i n the results section. ECG 12-LEAD WITH Routine 08/05/2017 10:45 AM Resu lts for this MUSE ? SENIOR CARE ASSISTANT procedure are in [facility] the results section. documented in this encounter Results CBC with platelets (08/05/2017 10:46 AM SENIOR CARE ASSISTANT) athologist Signature WBC 7.3 4.0 - 11.0 08/05/2017 [facility] thou/uL 11:15 AM SENIOR CARE ASSISTANT [facility] RBC Count 4.20 3.80 - 08/05/2017 [facility] 5.40 11:15 AM [facility]/uL [facility] Hemoglobin 12.6 12.0 - 08/05/2017 [facility] 16.0 g/dL 11:15 AM [facility] Hematocrit 37.9 35.0 - 08/05/2017 [facility] 47.0 % 11:15 AM [facility] MCV 90 80 - 100 08/05/2017 [facility] fL 11:15 AM [facility] MCH 30.0 27.0 - 08/05/2017 [facility] 34.0 pg 11:15 AM [facility] MCHC 33.2 32.0 - 08/05/2017 [facility] 36.0 g/dL 11:15 AM [facility] RDW 13.3 11.0 - 08/05/2017 [facility] 14.5 % 11:15 AM [facility] Platelet Count 157 140 - 440 08/05/2017 [facility] thou/uL 11:15 AM [facility] Mean Platelet 11.3 8.5 - 12.5 08/05/2017 [facility] Volume fL 11:15 AM [facility] Specimen Anatomical Collection Method / Collection Time Recei gil Time (Source) Location / Volume Laterality Blood specimen Venipuncture / 08/05/2017 10:46 018 (specimen) Unknown AM SENIOR CARE ASSISTANT 11:10 AM SENIOR CARE ASSISTANT Ashley Anderson PA-C LAB - BLOOD ORDERABLES Performing Organization Address City/State/ZIP Code Phon e Number [facility] [address] [facility]-[id number] [place] [address] LABORATORY (ABNORMAL) Basic metabolic panel (08/05/2017 10:46 AM SENIOR CARE ASSISTANT) P athologist Signature Sodium 139 136 - 145 08/05/2017 [facility] mmol/L 11:29 AM [facility] Potassium 3.5 - 5.0 08/05/2017 [facility] mmol/L 11:29 AM [facility] Comment: Specimen hemolyzed, result inva lid Chloride 105 98 - 107 mmol/L 08/05/2017 11:29 [facility] AM [facility] Carbon Dioxide 26 22 - 31 mmol/L 08/05/2017 11:29 [facility] (CO2) AM [facility] Anion Gap 8 5 - 18 mmol/L 08/05/2017 11:29 [facility] AM [facility] Glucose 191 (H) 70 - 125 mg/dL 08/05/2017 11:29 [facility] AM [facility] Calcium 9.7 8.5 - 10.5 08/05/2017 11:29 [facility] mg/dL AM [facility] Urea Nitrogen 23 (H) 8 - 22 mg/dL 08/05/2017 11:29 M [facility] TH AM [facility] Creatinine 1.20 (H) 0.60 - 1.10 08/05/2017 11:29 [facility] mg/dL AM [facility] GFR Estimate If 55 (L) >60 08/05/2017 11:29 [facility] H Black mL/min/1.73m2 AM [facility] GFR Estimate 45 (L) >60 08/05/2017 11:29 [facility] mL/min/1.73m2 AM [facility] Specimen Anatomical Collection Method / Collection Time Recei gil Time (Source) Location / Volume Laterality Blood specimen Venipuncture / 08/05/2017 10:46 018 (specimen) Unknown AM SENIOR CARE ASSISTANT 11:10 AM SENIOR CARE ASSISTANT Narrative [facility] - 08/05/2017 11:29 AM SENIOR CARE ASSISTANT Fasting Glucose reference range is 70-99 mg/dL per [employer] [employer] (ADA) charles martinez. Ashley Anderson PA-C LAB - BLOOD ORDERABLES Performing Organization Address City/State/ZIP Code Phon e Number [facility] [place] [address] [place] [phone] [place], [place] [id number] LAB [address] [address], [facility] ECG 12-LEAD WITH MUSE (LHE) (08/05/2017 10:45 AM SENIOR CARE ASSISTANT) [facility] Method Time Signature Systolic Blood mmHg 08/05/2017 HE RADIANT Pressure 4:52 PM CONVERSION SENIOR CARE ASSISTANT Diastolic Blood mmHg 08/05/2017 HE RADIANT Pressure 4:52 PM CONVERSION SENIOR CARE ASSISTANT Ventricular Rate 85 BPM 08/05/2017 HE RADIANT 4:52 PM CONVERSION SENIOR CARE ASSISTANT Atrial Rate 89 BPM 08/05/2017 HE RADIANT 4:52 PM CONVERSION SENIOR CARE ASSISTANT TX Interval ms 08/05/2017 HE [facility] 4:52 PM CONVERSION SENIOR CARE ASSISTANT QRS Duration 84 ms 08/05/2017 [facility]ANT 4:52 PM CONVERSION SENIOR CARE ASSISTANT QT 362 ms 08/05/2017 HE [facility] 4:52 PM CONVERSION SENIOR CARE ASSISTANT QTc 430 ms 08/05/2017 HE [facility]ANT 4:52 PM CONVERSION SENIOR CARE ASSISTANT P [place] degrees 08/05/2017 HE RADIANT 4:52 PM CONVERSION SENIOR CARE ASSISTANT R AXIS 20 degrees 08/05/2017 HE RADIANT 4:52 PM CONVERSION SENIOR CARE ASSISTANT T [place] 34 degrees 08/05/2017 HE RADIANT 4:52 PM CONVERSION SENIOR CARE ASSISTANT Interpretation Atrial fibrillation 08/05/2017 HE R ADIANT ECG Abnormal ECG 4:52 PM CONVERSION When compared with ECG of 07-JUL-2017 08:06, SENIOR CARE ASSISTANT Atrial fibrillation has replaced Sinus rhythm Vent. rate has increased BY ??29 BPM Confirmed by OPAL ??, LES LOC:JN ([id number]) on 08/05/2017 4: 52:28 PM Specimen Anatomical Collection Method Collection Time Receive d Time (Source) Location / / Volume Laterality 08/05/2017 10:45 08/05/2017 4:52 AM SENIOR CARE ASSISTANT PM SENIOR CARE ASSISTANT Ashley Anderson PA-C ECG ORDERABLES Performing Organization Address City/State/ZIP Code Phon e Number HE CARDIOLOGY CONVERSION HE RADIANT CONVERSION documented in this encounter Visit Diagnoses Diagnosis Aortic valvular stenosis Aortic valve disorders S/P TAVR (transcatheter aortic valve rep lacement) documented in this encounter Care Teams Facility Maintenance Technician Relationship Specialty Start Date End Date Elyse Paredes MD PCP - General Family Practice 12/22/13 04/21/22 [address] [place] [address] documented as of this encounter
--- OUTSIDE RECORDS SUMMARY | 2022-07-09 14:25 | XMS_ITS | Encounter Summary ---
:1950 Author Organization [place] [facility] Address [address] [place] [address] Care Team Providers Name Role Phone Elyse Paredes MD Primary Care Provider Encounter Details Date Type Department Care Team Description 08/09/2017 Ambulatory - [facility] S/P TAVR [facility] Perezu dorota (transcatheter aortic [address] valve replacement) [place] [address] Social History Tobacco Use Types [...] coming procedures. Cautioned about using Herbal medication. WELL LOGGING ENGINEER Gabrielle Golden RN - 08/09/2017 10:30 AM CST No change to NOVAC. WELL LOGGING ENGINEER documented in this encounter Plan of [...] lacement) documented in this encounter Care Teams Pole Classifier Relationship Specialty Start Date End Date Elyse Paredes MD PCP - General Family Practice 12/22/13 04/21/22 [address] [place] [address] documented as of this encounter
--- OUTSIDE RECORDS SUMMARY | 2022-07-09 14:25 | XMS_ITS | Encounter Summary ---
:1950 Author Organization [place] Address [address] [place] [address] Care Team Providers Name Role Phone Elyse Paredes MD Primary Care Provider Encounter Details Date Type Department Care Team Description 08/23/2017 [facility] T[facility]R [address] (transcatheter aortic [place], [place] valve replace ment) [phone] Social History [...] 128.4 kg (283 lb) 08/23/2017 11:00 AM BOTTLE CASER Height - - Body Mass Index 51.76 08/05/2017 10:47 AM BOTTLE CASER documented in this encounter Plan of Treatment Not on filedocumented as of this encounter Visit Diagnoses Diagnosis S/P TAVR (transcatheter aortic valve rep lacement) documented in this encounter Care Teams Records Management Analyst Relationship Specialty Start Date End Date Elyse Paredes MD PCP - General Family Practice 12/22/13 04/21/22 1540 [place], [place] [id number] documented as of this encounter
--- OUTSIDE RECORDS SUMMARY | 2022-07-09 14:25 | XMS_ITS | Encounter Summary ---
:1950 Author Organization [place] Address [address] [place] [address] Care Team Providers Name Role Phone Elyse Paredes MD Primary Care Provider Encounter Details Date Type Department Care Team Description 08/06/2017 [facility] S/P TAVR [address] (transcatheter aortic [place], [place] valve replace ment) [phone] Social History [...] 126.6 kg (279 lb) 08/06/2017 11:00 AM BRAKE LINER Height - - Body Mass Index 51.03 08/05/2017 10:47 AM BRAKE LINER documented in this encounter Plan of Treatment Not on filedocumented as of this encounter Visit Diagnoses Diagnosis S/P TAVR (transcatheter aortic valve rep lacement) documented in this encounter Care Teams Pest Control Operator Relationship Specialty Start Date End Date Elyse Paredes MD PCP - General Family Practice 12/22/13 04/21/22 1540 [place], [place] [id number] documented as of this encounter
--- OUTSIDE RECORDS SUMMARY | 2022-07-09 14:25 | XMS_ITS | Encounter Summary ---
:1950 Author Organization [place] Address [address] [place] [address] Care Team Providers Name Role Phone Elyse Paredes MD Primary Care Provider Encounter Details Date Type Department Care Team Description 08/16/2017 Ambulatory - [facility] S/P TAVR [facility] Heart [facility] Perezu dorota (transcatheter aortic [address] valve replacement) [place] [address] Social History Tobacco Use Types [...] coming procedures. Cautioned about using Herbal medication. 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
--- OUTSIDE RECORDS SUMMARY | 2022-07-09 14:25 | XMS_ITS | Encounter Summary ---
:1950 Author Organization [place] [facility] Address [address] [place] [address] Care Team Providers Name Role Phone Elyse Paredes MD Primary Care Provider Encounter Details Date Type Department Care Team Description 07/22/2017 Ambulatory - [facility] S/P TAVR [address] (transcatheter aortic [place], [place] valve replace ment) [phone] Social History [...] (278 lb 12.8 oz) 07/22/2017 2:00 PM FURNACE CHARGING MACHINE OPERATOR Height - - Body Mass Index 50.99 07/06/2017 8:21 AM FURNACE CHARGING MACHINE OPERATOR documented in this encounter Progress Notes [...] on exertion) ??? Coronary artery disease involving [place] coronary artery of [place] heart, angina presence unspecified ??? DEDE [...] abused physically, emotionally, sexually or financially? No Grey Goods Examiner notified: NA 2. Who do you turn to for emotional support?: long time friend, Nano 3. Do you have cultural or spiritual needs? No 4. Have there been any major life changes in the past 12 months? Yes, of only brother and Mom in the last year and her personal health issues Referral Information Primary Physician: Elyse Paredes MD Impregnating Tank Operator: Dr Michelle Martinez Surgeon: N/A Home exercise/Equipment: pinky Patient's long-term goal(s): Goal is to walk 2 miles and stand for an hour in preparation of her trip tp [place] in April 2018 1. Living Accommodations: [facility], 2 level with 14 steps up to her bedroom Steps: Yes, 14 steps Support people at home: 2 cats 2. Marital Status: 3. Family is not able to assist with cares Amish/Community involvement: volunteer with [employer] ([employer]) once a month 4. [...] Risk Factor Follow-up PSYCHOSOCIAL Psychosocial Assessment: Initial [facility] Q of L Summary Score: [...] lacement) documented in this encounter Care Teams Driver License Technician Relationship Specialty Start Date End Date Elyse Paredes MD PCP - General Family Practice 12/22/13 04/21/22 [address] [place] [address] documented as of this encounter
--- OUTSIDE RECORDS SUMMARY | 2022-07-09 14:26 | XMS_ITS | Encounter Summary ---
:1950 Author Organization [facility] Address [address] [place] [address] Care Team Providers Name Role Phone Elyse Paredse MD Primary Care Provider Reason for Visit Reason Comments Kidney Problem 2 weeks stone f/u with CT Encounter Details Date Type Department Care Team Description 06/21/2017 Office Visit - [facility] Clem Johnsu marie of ureter; [facility] MYRA Bello MD Calculus of kidney; [address], [address] Urinary tract stones [address] [place] [address] [phone] (Work) Social History Tobacco Use Types Packs/Day [...] 67 y.o. female returning to the [facility] [place] for medical expulsive therapy follow up. On [...] Coronary Angiogram; Surgeon: Ankush Martinez MD; Location: [facility] Bowling Ball Marker; Service: ??? knee replacements Bilateral Current Outpatient [...] Final 06/05/2017 6.0 4.5 - 8.0 Final EM MILL OPERATOR documented in this encounter Plan of Treatment Not on filedocumented as of this encounter Visit Diagnoses Diagnosis Calculus of ureter Calculus of kidney Urinary tract stones Urinary calculus, unspecified documented in this encounter Care Teams Bonding Agent Relationship Specialty Start Date End Date Elyse Paredes MD PCP - General Family Practice 12/22/13 04/21/22 [address] [place] [address] documented as of this encounter
--- OUTSIDE RECORDS SUMMARY | 2022-07-09 14:26 | XMS_ITS | Encounter Summary ---
:1950 Author Organization [place] Address [address] [place] [address] Care Team Providers Name Role Phone Elyse Paredes MD Primary Care Provider Encounter Details Date Type Department Care Team Description 06/09/2017 Hospital Encounter [facility] Suzanna Martinez re aortic [facility] MD Ankush stenosis Respiratory [address] [place] [address] [phone] Social History Tobacco Use Types Packs/Day Years [...] standards met, results scanned to patients chart. STONE POLISHER documented in this encounter Plan of Treatment Not on filedocumented as of this encounter Procedures Procedure Name Priority Date/Time Associated Diagnosis Comme nts PFT COMPLETE - HE Routine 06/09/2017 2:31 PM Severe aortic Res ults for this TOMBSTONE POLISHER stenosis procedure are i n the results section. PULMONARY FUNCTION 06/09/2017 TEST - HIM SCAN documented in this encounter Results PFT Complete - HE (06/09/2017 2:31 PM TOMBSTONE POLISHER) Specimen (Source) Anatomical Location Collection Method / Collectio n Time Received Time / Laterality Volume Narrative HE RADIANT CONVERSION - 06/10/2017 1:37 PM TOMBSTONE POLISHER FEV1/FVC is 0.85 and is normal. FEV1 [...] Ramirez MD Pulmonary and Critical Care Medicine [facility] [place] Office [phone] Procedure Note Clem Ramirez MD - 02/14/2021Fo [...] Ramirez MD Pulmonary and Critical Care Medicine [facility] Office [phone] Ankush Martinez MD PFT ORDERABLES Performing Organization Address City/State/ZIP Code Phon e Number HE RADIANT CONVERSION PULMONARY FUNCTION TEST - HIM SCAN (06/09/2017) Narrative This result has an attachment that is no t available. Historical Provider PFT ORDERABLES documented in this encounter Visit Diagnoses Diagnosis Severe aortic stenosis Aortic valve disorders documented in this encounter Care Teams Rig Welder Relationship Specialty Start Date End Date Elyse Paredes MD PCP - General Family Practice 12/22/13 04/21/22 1540 [place] [address] documented as of this encounter
--- OUTSIDE RECORDS SUMMARY | 2022-07-09 14:26 | XMS_ITS | Encounter Summary ---
:1950 Author Organization [place] Address [address] [place] [address] Care Team Providers Name Role Phone Elyse Paredes MD Primary Care Provider Reason for Visit Reason Comments Consult Encounter Details Date Type Department Care Team Description 07/05/2017 Office Visit - [facility] Tanner Anderson PA-C [address] [place] [address] Coronary artery disease involving [place] coronary artery of [place] heart, angina presence unspecified; [facility] Heart [facility], [facility] SOB (shortness of breath); [place] Severe aortic stenosis; [address] Type 2 diabetes mellitus without complication, with long-term current use of insulin (H); [place] [phone] Social History Tobacco Use Types Packs/Day Years [...] 128.8 kg (284 lb) 07/05/2017 10:43 AM CONSULAR OFFICER Height 157.5 cm (5' 2) 07/05/2017 10:43 AM CONSULAR OFFICER Body Mass Index 51.94 07/05/2017 10:43 AM CONSULAR OFFICER documented in this encounter Progress Notes Ashley [...] by TAVR coordinator RN. Ashley Harvey PA-C, [facility] Heart [facility] ULAR OFFICER documented in this encounter Plan of Treatment Not on filedocumented as of this encounter Procedures Procedure Name Priority Date/Time Associated Diagnosis Comme nts ECG 12-LEAD WITH Routine 07/05/2017 10:22 AM Resu lts for this MUSE ? CONSULAR OFFICER procedure are in [facility] the results section. documented in this encounter Results ECG 12-LEAD WITH MUSE (LHE) (07/05/2017 10:22 AM CONSULAR OFFICER) [facility] Method Time Signature Systolic Blood mmHg 07/05/2017 HE RADIANT Pressure 5:08 PM CONSULAR OFFICER CONVERSION Diastolic Blood mmHg 07/05/2017 HE RADIANT Pressure 5:08 PM CONSULAR OFFICER CONVERSION Ventricular Rate 88 BPM 07/05/2017 HE RADIANT 5:08 PM CONSULAR OFFICER CONVERSION Atrial Rate 88 BPM 07/05/2017 HE RADIANT 5:08 PM CONSULAR OFFICER CONVERSION MS Interval 128 ms 07/05/2017 HE RADIANT 5:08 PM CONSULAR OFFICER CONVERSION QRS Duration 84 ms 07/05/2017 HE RADIANT 5:08 PM CONSULAR OFFICER CONVERSION QT 348 ms 07/05/2017 HE RADIANT 5:08 PM CONSULAR OFFICER CONVERSION QTc 421 ms 07/05/2017 HE RADIANT 5:08 PM CONSULAR OFFICER CONVERSION P [place] -5 degrees 07/05/2017 HE RADIANT 5:08 PM CONSULAR OFFICER CONVERSION R AXIS 10 degrees 07/05/2017 HE RADIANT 5:08 PM CONSULAR OFFICER CONVERSION T [place] 33 degrees 07/05/2017 HE RADIANT 5:08 PM CONSULAR OFFICER CONVERSION Interpretation Sinus rhythm 07/05/2017 HE RADIANT ECG Normal ECG 5:08 PM CONSULAR OFFICER CONVERSION When compared with ECG of 12-MAY-2017 09:52, Premature atrial complexes are no longer Present Confirmed by [place] ??, SAMANTHA LOC:JN ([id number]) on 07/05/2017 5:08:16 PM Specimen Anatomical Collection Method Collection Time Receive d Time (Source) Location / / Volume Laterality 07/05/2017 10:22 07/05/2017 5:08 AM CONSULAR OFFICER PM CONSULAR OFFICER Mudassar Michelle CLEMENTS ECG ORDERABLES Performing Organization Address City/State/ZIP Code Phon e Number HE CARDIOLOGY CONVERSION HE RADIANT CONVERSION documented in this encounter Visit Diagnoses Diagnosis Coronary artery disease involving [place] coronary artery of [place] heart, angina presence unspecified SOB (shortness of breath) Shortness of breath Severe aortic stenosis Aortic valve disorders Type 2 diabetes mellitus without complic ation, with long-term current use of insulin (H) Essential hypertension Unspecified essential hypertension documented in this encounter Care Teams Integrated Campaign Manager Relationship Specialty Start Date End Date Elyse Paredes MD PCP - General Family Practice 12/22/13 04/21/22 [address] [place] [address] documented as of this encounter
--- OUTSIDE RECORDS SUMMARY | 2022-07-09 14:26 | XMS_ITS | Encounter Summary ---
:1950 Author Organization [place] Address [address] [place] [address] Care Team Providers Name Role Phone Elyse Paredes MD Primary Care Provider Encounter Details Date Type Department Care Team Description 06/28/2017 Ambulatory - [facility] Provider, Severe aor tic stenosis; [facility] S/P TAVR (t ranscatheter aortic valve replacement); [place] SOB (shortness of breath) [address] [phone] Social History Tobacco Use Types Packs/Day Years [...] breath documented in this encounter Care Teams Pilot Control Operator Helper Relationship Specialty Start Date End Date Elyse Paredes MD PCP - General Family Practice 12/22/13 04/21/22 1540 [place] [address] documented as of this encounter
--- OUTSIDE RECORDS SUMMARY | 2022-07-09 14:26 | XMS_ITS | Encounter Summary ---
:1950 Author Organization [facility] Address [address] [place] [id number] Care Team Providers Name Role Phone Elyse Paredes MD Primary Care Provider Encounter Details Date Type Department Care Team Description 07/05/2017 Anesthesia - [facility] Maryellen Willett, G[facility] EMERGENCY ROOM PHYSICIAN [facility] [address] [place], [place] [address] (Wo rk) Social History [...] well. Not onpressors. Maintaining sats on BiPAP. ICAL ORDERLY Anesthesia Procedure Notes - Brenton Gregory MD - 07/06/2017 1:45 PM SURGICAL ORDERLY REINALDO Patient location during procedure: OR Start time: 07/06/2017 12:10 PM Staffing: Performing Anesthesiologist: BRENTON GREGORY REINALDO: Type/Reason: Diagnostic REINALDO probe placement only Technique: blind insertion Difficulty: easy interpretation completed by Cardiology ICAL ORDERLY Anesthesia Procedure Notes - Brenton Gregory MD - 07/06/2017 1:41 PM SURGICAL ORDERLY Central line Start time: 07/06/2017 11:46 AM [...] ports and free fluid flow Complications: none ICAL ORDERLY Anesthesia Procedure Notes - Brenton Gregory MD - 07/06/2017 10:12 AM SURGICAL ORDERLY Arterial Line Reason for Procedure: hemodynamic monitoring Patient location during procedure: Pre-op Start time: 07/06/2017 9:56 AM End time: 07/06/2017 10:02 AM Staffing: Performing Anesthesiologist: BRENTON GREGORY Sterile Precautions: sterile barriers used during insertion: cap, mask, sterile gloves, large sheet, and hand hygiene used. Arterial Line: Immediately prior to procedure a time out was called to verify the correct patient, procedure, equipment, patient support tech and site/side marked as required Laterality: left [...] Concurrent real time visualization of needle entry ICAL ORDERLY Anesthesia Preprocedure Evaluation - Brenton Gregory MD [...] two IVs, dexmedetomidine Post-op plan: routine recovery ICAL ORDERLY documented in this encounter Miscellaneous Notes Anesthesia [...] experience pain >= 7 out of 10 ICAL ORDERLY documented in this encounter Plan of Treatment Not on filedocumented as of this encounter Visit Diagnoses Not on filedocumented in this encounter Care Teams Service Dispatcher Relationship Specialty Start Date End Date Elyse Paredes MD PCP - General Family Practice 12/22/13 04/21/22 [address] [place] [address] documented as of this encounter
--- OUTSIDE RECORDS SUMMARY | 2022-07-09 14:26 | XMS_ITS | Encounter Summary ---
:1950 Author Organization [facility] Address [address] [place] [address] Care Team Providers Name Role Phone Elyse Paredes MD Primary Care Provider Encounter Details Date Type Department Care Team Description 06/18/2017 Communication - [facility] Provider, [facility] [address] [phone] Social History Tobacco Use Types Packs/Day Years Used Date Smoking Tobacco: Never Assessed Sex Assigned at Date Recorded Not on file documented as of this encounter Plan of Treatment Not on filedocumented as of this encounter Visit Diagnoses Not on filedocumented in this encounter Care Teams Globe Cleaner Relationship Specialty Start Date End Date Elyse Paredes MD PCP - General Family Practice 12/22/13 04/21/22 [address] [place] [address] documented as of this encounter
--- OUTSIDE RECORDS SUMMARY | 2022-07-09 14:26 | XMS_ITS | Encounter Summary ---
:1950 Author Organization [facility] Address [address] [place] [address] Care Team Providers Name Role Phone Elyse Paredes MD Primary Care Provider Reason for Visit Reason Comments Other Pre-TAVR; Pre-TAVR Encounter Details Date Type Department Care Team Description 07/05/2017 [facility] Provider, Severe aor [facility]. Historical stenosis [address] [phone] Social History Tobacco Use Types Packs/Day Years Used Date Smoking Tobacco: Never Assessed Sex Assigned at Date Recorded Not on file documented as of this encounter Progress Notes Tomas Pino RN - 07/05/2017 11:10 AM CST Patient scheduled for Transcatheter Aortic Valve Replacement (TAVR) on 07/06/17 arrival time: 0730AM for 2nd case at [facility] with Dr. Martinez Referring provider: Dr. Steele [...] dose of ASA: yes 325 mf in [facility] Patient instructed on skin prep: Patient sent home with hibiclens solution along with written instructions for hibiclens bath to be done evening before procedure. Advanced Directive: Does the patient have an advanced directive: yes, on file Surgery and anesthesia consents Ashley Dickson PA-C reviewed risks of TAVR surgery/REINALDO and signed consents Consents sent to [facility] Anesthesia will sign anesthesia consent am of surgery Pre and post procedure education was also reviewed with the patient. No further questions and ready to proceed with surgery as planned. Instructed to come to the main entrance of [facility] at 0730 AM All questions were answered to patient by Ashley Dickson PA-C and Tomas Pino RN No family present at the time of appointment. [facility] [employer] documented in this encounter Plan of Treatment Not on filedocumented as of this encounter Visit Diagnoses Diagnosis Severe aortic stenosis Aortic valve disorders documented in this encounter Care Teams Infant Teacher Relationship Specialty Start Date End Date Elyse Paredes MD PCP - General Family Practice 12/22/13 04/21/22 [address] [address] documented as of this encounter
--- OUTSIDE RECORDS SUMMARY | 2022-07-09 14:26 | XMS_ITS | Encounter Summary ---
:1950 Author Organization [facility] Address [address] [place] [address] Care Team Providers Name Role Phone Elyse Paredes MD Primary Care Provider Encounter Details Date Type Department Care Team Description 06/21/2017 [facility] [address] [place] [id number] [phone] Social History Tobacco Use Types Packs/Day Years [...] urete r Results for this W/O CONTRAST STOCK MOVER procedure are i n the results section. documented in this encounter Results CT Abdomen Pelvis w/o Contrast (06/21/2017 3:26 PM STOCK MOVER) Anatomical Region Laterality Modality Abdomen/Pelvis, SUBRAD CT BODY, UMP CT ABDOMEN PELVIS, Computed Tomography RAD CT Specimen (Source) Anatomical Location Collection Method / Collectio n Time Received Time / Laterality Volume Impressions 06/21/2017 3:43 PM STOCK MOVER CONCLUSION: 1. ??Resolution of the tiny distal right ureteral stone with resolved mild right hydronephrosis. 2. ??No new findings. Narrative 06/21/2017 3:[address] ABDOMEN PELVIS WO ORAL WO IV [...] ureter documented in this encounter Care Teams Fiber Optic Assembly Worker Relationship Specialty Start Date End Date Elyse Paredes MD PCP - General Family Practice 12/22/13 04/21/22 [address] [place] [address] documented as of this encounter
--- OUTSIDE RECORDS SUMMARY | 2022-07-09 14:26 | XMS_ITS | Encounter Summary ---
:1950 Author Organization [facility] Address [address] [place] [id number] Care Team Providers Name Role Phone Elyse Paredes MD Primary Care Provider Encounter Details Date Type Department Care Team Description 07/06/2017 - Hospital Encounter [facility] 4000 Ahmed, Severe ao rtic 07/08/2017 CARDIAC/TELEMETRY MD Ankush [address] [facility] [place] [address] [id number] [place], [place] [phone] [id number] Social History Tobacco Use Types Packs/Day Years [...] 125.6 kg (277 lb) 07/08/2017 5:00 AM MOLD FILLER AND DRAINER Height 157.5 cm (5' 2) 07/06/2017 8:21 AM MOLD FILLER AND DRAINER Body Mass Index 50.66 07/06/2017 8:21 AM MOLD FILLER AND DRAINER documented in this encounter Discharge Summaries Dee Dee Sewell CNP - 07/08/2017 6:13 PM CST Discharge Summary by Dee Dee Sewell CNP at 07/08/2017 6:13 PM Author: Dee Dee Sewell CNP Service: Cardiology Author Type: Nurse Practitioner Filed: 07/09/2017 11:53 AM Date of Service: 07/08/2017 6:13 PM Status: Signed Aquatics Coordinator: Dee Dee Sewell CNP (Nurse Practitioner) Cardiology [...] Severe aortic stenosis Coronary artery 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 Coronary artery disease involving shawnee coronary artery of shawnee heart, angina presence unspecified ??? Severe aortic [...] Discharge Disposition: Home with family Outpatient Location: [facility] Comment: Is planning a trip to [facility] in April of 2018 and reports is motivated to get stronger. Dee Dee Parks, MANAGER BAKERY - 07/08/2017 10:41 AM CST Images from the original note were not included. Progress Notes by Dee Dee Sewell CNP at 07/08/2017 10:41 AM Author: Dee Dee Sewell CNP Service: Cardiology Author Type: Nurse Practitioner Filed: 07/08/2017 10:43 AM Date of Service: 07/08/2017 10:41 AM Status: Signed Aquatics Coordinator: Dee Dee Sewell CNP (Nurse Practitioner) ?? [...] @ 08:06:00 SB with SA; HR 56bpm, MI 94ms, QRSd 94ms, QT 430ms, QTc 414ms [...] stones ? Morbid obesity ? Nephrolithiasis ? EDDE on CPAP ? Severe aortic stenosis ALLERGIES: [...] components found for: CESAR Kathleen RN, MSN, [facility] Invasive Cardiology/Cardiac Electrophysiology FILLER AND DRAINER Mitchel Flores MD - 07/08/2017 9:37 AM CST [place] Daily Progress Note Date of Service: 07/08/2017 [...] ? today Disposition: Home [facility]chel [facility] FILLER AND DRAINER NiyaJaith - 07/07/2017 1:26 PM CST Spiritual Care Note Spiritual Assessment: Robotic Weld Technician made a post surgery visit with patient this morning. Patient was being attended to by staff when Robotic Weld Technician arrives. Patient seems to be doing well post surgery and does inform the Robotic Weld Technician that she is an Agnostic following introduction but does seem open to support from Robotic Weld Technician. Patient states it has been a difficult year for her as she lost her mother as well as her only sibling and states, I feel like an orphan now. When asked about her support system patient states she has really good friends who will be there for her once she gets out of the hospital and does appear comforted by that; Robotic Weld Technician notes not concerns. Care Provided: Patient denies needs but did thank the Robotic Weld Technician for coming and offering support. Plan of Care: Spiritual care will continue to follow as part of patient's care team. Robotic Weld Technician JARRET Noguera, [facility] FILLER AND DRAINER Mitchel Flores MD - 07/07/2017 10:56 AM CST [place] Daily Progress Note Date of Service: 07/07/2017 [...] 1-2 days Disposition: Home Mitchel Flores MD [facility]?? Hospitalist FILLER AND DRAINER Dee Dee Sewell CNP - 07/07/2017 8:30 AM CST Images from the original note were not included. Progress Notes by Dee Dee Sewell CNP at 07/07/2017 8:30 AM Author: Dee Dee Sewell CNP Service: Cardiology Author Type: Nurse Practitioner Filed: 07/07/2017 10:06 AM Date of Service: 07/07/2017 8:30 AM Status: Signed Aquatics Coordinator: Dee Dee Sewell CNP (Nurse Practitioner) ?? [...] @ 08:06:00 SB with SA; HR 56bpm, MI 94ms, QRSd 94ms, QT 430ms, QTc 414ms [...] components found for: CESAR Kathleen RN, MSN, [facility] Invasive Cardiology/Cardiac Electrophysiology FILLER AND DRAINER Crusing Judy, [facility] - 07/06/2017 3:10 PM CST Pharmacy Note - Admission Medication History Pertinent Provider Information: Prior To Admission (KNOWLEDGE MANAGEMENT ADVISOR) med list completed and updated in EMR. KNOWLEDGE MANAGEMENT ADVISOR Med List Medication Sig Note Last Dose [...] Information source(s): Patient Summary of Changes to KNOWLEDGE MANAGEMENT ADVISOR Med List New: none Discontinued: none Changed: none Patient was asked about OTC/herbal products specifically. KNOWLEDGE MANAGEMENT ADVISOR med list reflects this. Based on the pharmacist???s assessment, the KNOWLEDGE MANAGEMENT ADVISOR med list information appears reliable Patient appears adherent: Yes Allergies were reviewed, assessed, and updated with the patient. Patient does not use any multi-dose medications prior to admission. Thank you for the opportunity to participate in the care of this patient. Judy Jacobsen RPh 07/06/2017 3:10 PM FILLER AND DRAINER Mitchel Flores MD - 07/06/2017 3:04 PM [...] 1-2 days Disposition: Home Mitchel Flores MD [facility]?? Hospitalist FILLER AND DRAINER Ankush Martinez MD - 07/06/2017 1:46 PM [...] based on clinical need. Ankush Martinez MD FILLER AND DRAINER documented in this encounter H&P Notes Dee [...] reviewed and the patient agrees to proceed. FILLER AND DRAINER documented in this encounter Consult Notes Tamera Fernández, ARMAND - 07/07/2017 10:27 AM CST Clinical Nutrition [...] supplements none notede. Patient has the following cultural/latter-day food needs or preferences: none noted.Patient has [...] Units 07/07/[address]-GLUCOSE mg/dL 229* Accuchecks: [phone] Assessed Nutritional Needs: Assessment weight is 50 kg, with a weight source of ideal weight Estimated Energy Needs: 1199-0360 kcals daily per 22-25 kcal/kg Estimated Protein [...] Care Plan for Problems, Goals, and Interventions. FILLER AND DRAINER Elvira Faulkner APRN MANAGER BAKERY - 07/06/2017 2:34 PM CST PULMONARY / CRITICAL CARE CONSULTATION NOTE Consultation - Pulmonary/Critical Care Medicine Marci Diaz, 1950, Date / Time of Admission: 07/06/2017 7:36 AM Admitting Dx: Severe aortic stenosis [I35.0] PCP: Elyse Paredes MD, Consulting physician: Ankush Martinez MD Code status: Full Code Extended Emergency Contact Information Primary Emergency Contact: Donna Diaz [facility] Mobile Relation: Furdot-Lj-Akz ID: Marci Diaz is a 67 y.o. [...] home NCPAP auto flow 5-20 Follows with [facility] sleep clinic 5. Obesity . Advance Directives: [...] billable procedure time: 45 minutes. Elvira Faulkner [facility] Pulmonary/Critical Care Chief Complaint Severe symptomatic HPI [...] on exertion) ??? Coronary artery disease involving shawnee coronary artery of shawnee heart, angina presence unspecified ??? Severe aortic [...] Coronary Angiogram; Surgeon: Ankush Martinez MD; Location: [facility] Biztalk Developer; Service: ??? knee replacements Bilateral Allergies Allergies [...] 72 hours. No results for input(s): PHART, FLS0YXR, PO2ART, OXYHB, BEARTCALC, CARBOXYHGB, METHGB, POCPEEP, TEMP, 41714, POCRATE, POCFLOW, PSV in the last 72 hours. Invalid input(s): [id number], 02SAT, VENTTIVOL CBC: Results from last 7 [...] Radiology: ?? Chest X-Ray: just orderedABG pendnig FILLER AND DRAINER documented in this encounter Miscellaneous Notes Op Note - Alfonzo Steele MD - 07/06/2017 2:00 PM CST DATE OF SERVICE: 07/06/2017 PREOPERATIVE DIAGNOSIS: Severe aortic stenosis. POSTOPERATIVE DIAGNOSIS: Severe aortic stenosis. PROCEDURE PERFORMED: Transcatheter aortic valve replacement via a right/ trans- femoral arterial approach with a Rigo S3 23 mm valve. SURGEON: Alfonzo Steele MD, PhD SALES ENABLEMENT LEAD: Ankush Martinez MD ANESTHESIA: General endotracheal anesthesia. [...] BLOOD LOSS: Minimal. ALFONZO STEELE MD, PhD FILLER AND DRAINER documented in this encounter Plan of Treatment Not on filedocumented as of this encounter Procedures Procedure Name Priority Date/Time Associated Comments Diagnosis CROSSMATCH RED CELLS Routine 07/09/2017 12:02 Res ults for this AM MOLD FILLER AND DRAINER procedure are i n the results section. CROSSMATCH RED CELLS Routine 07/09/2017 12:02 Res ults for this AM MOLD FILLER AND DRAINER procedure are i n the results section. ECHO LIMITED Routine 07/07/2017 11:06 Results for this AM MOLD FILLER AND DRAINER procedure are i n the results section. ECG 12-LEAD WITH MUSE ? Routine 07/07/2017 7:00 AM Results for t his [facility] MOLD FILLER AND DRAINER procedure are i n the results section. XR CHEST PORT 1 VIEW Routine 07/07/2017 5:38 AM R esults for this MOLD FILLER AND DRAINER procedure are i n the results section. XR CHEST PORT 1 VIEW Routine 07/06/2017 3:14 PM R esults for this MOLD FILLER AND DRAINER procedure are i n the results section. ECG 12-LEAD WITH MUSE ? STAT 07/06/2017 2:30 PM Results for t his [facility] MOLD FILLER AND DRAINER procedure are i n the results section. ECHO REINALDO INTERVENTIONAL Routine 07/06/2017 1:55 PM Severe aort ic Results for this MOLD FILLER AND DRAINER stenosis procedure are i n the results section. CV TRANSCATHETER AORTIC Routine 07/06/2017 1:41 PM Severe aort ic Results for this VALVE MOLD FILLER AND DRAINER stenosis procedure are i n REPLACEMENT-FEMORAL the resu lts APPROACH section. documented in this encounter Results Crossmatch red cells (07/09/2017 12:02 AM MOLD FILLER AND DRAINER) [facility] Method Time Signature Crossmatch Compatible 07/09/2017 [facility] BLOOD 12:02 AM BANK MOLD FILLER AND DRAINER BLOOD [id number] 07/09/2017 [facility] BLOOD EXPIRATION 12:02 AM BANK DATE MOLD FILLER AND DRAINER Unit ABO/RH A Pos 07/09/2017 [facility] BLOOD 12:02 AM BANK MOLD FILLER AND DRAINER Unit Number [id number] 07/09/2017 [facility] BLOOD 12:02 AM BANK MOLD FILLER AND DRAINER Status Released 07/09/2017 [facility] BLOOD 12:02 AM BANK MOLD FILLER AND DRAINER Component Red Blood Cells 07/09/2017 [facility] BLOOD 12:02 AM BANK MOLD FILLER AND DRAINER Product Code [id number] 07/09/2017 [facility] BLOOD 12:02 AM BANK MOLD FILLER AND DRAINER BLOOD TYPE 6200 07/09/2017 [facility] BLOOD 12:02 AM BANK MOLD FILLER AND DRAINER CODING SYSTEM [id number] 07/09/2017 BLOOD 12:02 AM BANK MOLD FILLER AND DRAINER Specimen (Source) Anatomical Location Collection Method / Collectio n Time Received Time / Laterality Volume Ankush Martinez MD LAB - BLOOD BANK PRODUCT ORD ER Performing Organization Address City/[facility]/ZIP Code Phon e Number [facility] BLOOD BANK [address] [facility] [address] [facility] BLOOD BANK [address] [place] [phone] Crossmatch red cells (07/09/2017 12:02 AM MOLD FILLER AND DRAINER) [facility] [employer] Method Time Signature Crossmatch Compatible 07/09/2017 [facility] BLOOD 12:02 AM BANK MOLD FILLER AND DRAINER BLOOD [id number] 07/09/2017 [facility] BLOOD EXPIRATION 12:02 AM BANK DATE MOLD FILLER AND DRAINER Unit ABO/RH A Pos 07/09/2017 [facility] BLOOD 12:02 AM BANK MOLD FILLER AND DRAINER Unit Number [id number] 07/09/2017 [facility] BLOOD 12:02 AM BANK MOLD FILLER AND DRAINER Status Released 07/09/2017 [facility] BLOOD 12:02 AM BANK MOLD FILLER AND DRAINER Component Red Blood Cells 07/09/2017 [facility] BLOOD 12:02 AM BANK MOLD FILLER AND DRAINER Product Code [id number] 07/09/2017 [facility] BLOOD 12:02 AM BANK MOLD FILLER AND DRAINER BLOOD TYPE 6200 07/09/2017 [facility] BLOOD 12:02 AM BANK MOLD FILLER AND DRAINER CODING SYSTEM [id number] 07/09/2017 [facility] BLOOD 12:02 AM BANK MOLD FILLER AND DRAINER Specimen (Source) Anatomical Location Collection Method / Collectio n Time Received Time / Laterality Volume Ankush Martinez MD LAB - BLOOD BANK PRODUCT ORD ER Performing Organization Address City/[facility]/ZIP Code Phon e Number [facility] BLOOD BANK [address] [facility] [address] [facility] BLOOD BANK [address] [place] [address], [place] [address] Echocardiogram Limited (07/07/2017 11:06 AM MOLD FILLER AND DRAINER) [facility] [employer] Method Time Signature AV mean oniel 176 cm/s 07/07/2017 2:04 PM MOLD FILLER AND DRAINER AV mean gradient 15 mmHg 07/07/2017 2:04 PM MOLD FILLER AND DRAINER AV VTI 58.9 cm 07/07/2017 2:04 PM MOLD FILLER AND DRAINER AV peak oniel 270 cm/s 07/07/2017 2:04 PM MOLD FILLER AND DRAINER LVOT diam 2 cm 07/07/2017 2:04 PM MOLD FILLER AND DRAINER LEFT VENTRICULAR 2 mmHg 07/07/2017 OUTFLOW TRACT MEAN 2:04 PM MOLD FILLER AND DRAINER GRADIENT LVOT peak VTI 25.8 cm 07/07/2017 2:04 PM MOLD FILLER AND DRAINER LEFT VENTRICULAR 71.9 cm/s 07/07/2017 OUTFLOW TRACT MEAN 2:04 PM MOLD FILLER AND DRAINER VELOCITY LVOT peak oniel 116 cm/s 07/07/2017 2:04 PM MOLD FILLER AND DRAINER LEFT VENTRICULAR 5 mmHg 07/07/2017 OUTFLOW TRACT PEAK 2:04 PM MOLD FILLER AND DRAINER GRADIENT BSA 2.39 m2 07/07/2017 2:04 PM MOLD FILLER AND DRAINER End systolic index 62 in 07/07/2017 (mL/m2) 2:04 PM MOLD FILLER AND DRAINER End diastolic 4,528 lbs 07/07/2017 index (mL/m2) 2:04 PM MOLD FILLER AND DRAINER BP 109/53 mmHg 07/07/2017 2:04 PM MOLD FILLER AND DRAINER HR 68 bpm 07/07/2017 2:04 PM MOLD FILLER AND DRAINER AV area 1.4 cm2 07/07/2017 2:04 PM MOLD FILLER AND DRAINER AV DIM IND oniel 0.4 07/07/2017 2:04 PM MOLD FILLER AND DRAINER LVOT area 3.14 cm2 07/07/2017 2:04 PM MOLD FILLER AND DRAINER LVOT SV 81.0 cm3 07/07/2017 2:04 PM MOLD FILLER AND DRAINER AV peak gradient 29.2 mmHg 07/07/2017 2:04 PM MOLD FILLER AND DRAINER LV SVi 33.9 ml/m2 07/07/2017 2:04 PM MOLD FILLER AND DRAINER LV CO 5.5 l/min 07/07/2017 2:04 PM MOLD FILLER AND DRAINER LV Ci 2.3 l/min/m2 07/07/2017 2:04 PM MOLD FILLER AND DRAINER Height 62.0 in 07/07/2017 2:04 PM MOLD FILLER AND DRAINER Weight 283 lbs 07/07/2017 2:04 PM MOLD FILLER AND DRAINER AV DIMENSIONLESS 0.4 07/07/2017 INDEX VTI 2:04 PM MOLD FILLER AND DRAINER Echo LVEF 65 % 07/07/2017 Estimated 2:04 PM MOLD FILLER AND DRAINER Anatomical Region Laterality Modality Echocardiography Specimen (Source) Anatomical Collection Method Collection Time Re ceived Time Location / / Volume Laterality 07/07/2017 10:06 AM MOLD FILLER AND DRAINER Narrative 07/07/2017 2:04 PM MOLD FILLER AND DRAINER ?? Left ventricle ejection fraction is normal. The estimated left ventricular ejection fraction is 65%. ?? There is a bioprosthetic valve presen t. There is no aortic insufficiency present. The prosthetic valve is normal. ?? No pericardial effusion. ?? When compared to the previous study d ated 03/25/2017, bioprosthetic aortic valve is now present, replacing stenotic shawnee valve Procedure Note Ilya Rogers MD / [...] aortic valve is now present, replacing stenotic shawnee valve Dee Dee Sewell [facility] CV ECHO ORDERABLES ECG 12-LEAD WITH MUSE (LHE) (07/07/2017 7:00 AM MOLD FILLER AND DRAINER) [facility] Method Time Signature Systolic Blood mmHg 07/07/2017 HE RADIANT Pressure 3:53 PM CONVERSION MOLD FILLER AND DRAINER Diastolic Blood mmHg 07/07/2017 HE RADIANT Pressure 3:53 PM CONVERSION MOLD FILLER AND DRAINER Ventricular Rate 56 BPM 07/07/2017 HE RADIANT 3:53 PM CONVERSION MOLD FILLER AND DRAINER Atrial Rate 56 BPM 07/07/2017 HE RADIANT 3:53 PM CONVERSION MOLD FILLER AND DRAINER MI Interval 148 ms 07/07/2017 HE RADIANT 3:53 PM CONVERSION MOLD FILLER AND DRAINER QRS Duration 94 ms 07/07/2017 HE RADIANT 3:53 PM CONVERSION MOLD FILLER AND DRAINER QT 430 ms 07/07/2017 HE RADIANT 3:53 PM CONVERSION MOLD FILLER AND DRAINER QTc 414 ms 07/07/2017 HE RADIANT 3:53 PM CONVERSION MOLD FILLER AND DRAINER P [place] 60 degrees 07/07/2017 HE RADIANT 3:53 PM CONVERSION MOLD FILLER AND DRAINER R AXIS 10 degrees 07/07/2017 HE RADIANT 3:53 PM CONVERSION MOLD FILLER AND DRAINER T [place] 21 degrees 07/07/2017 HE RADIANT 3:53 PM CONVERSION MOLD FILLER AND DRAINER Interpretation Sinus bradycardia with sinus arrhythmia 07/07/2017 HE RADIANT ECG Otherwise normal ECG 3:53 PM CONVERSIO N When compared with ECG of 06-JUL-2017 14:35, MOLD FILLER AND DRAINER No significant change was found Confirmed by OPAL ??MURIEL CLEMENTS LOC:BUSHRA ([id number]) on 07/07/2017 3 :53:52 PM Specimen Anatomical Collection Method Collection Time Receive d Time (Source) Location / / Volume Laterality 07/07/2017 7:00 AM 7 3:53 MOLD FILLER AND DRAINER PM MOLD FILLER AND DRAINER Dee Dee Sewell MANAGER BAKERY ECG ORDERABLES Performing Organization Address City/State/ZIP Code Phon e Number HE CARDIOLOGY CONVERSION HE RADIANT CONVERSION XR Chest Port 1 View (07/07/2017 5:38 AM MOLD FILLER AND DRAINER) Anatomical Region Laterality Modality Chest Digital Radiography Specimen (Source) Anatomical Location Collection Method / Collectio n Time Received Time / Laterality Volume Narrative 07/07/2017 7:08 AM MOLD FILLER AND DRAINER XR CHEST 1 VIEW PORTABLE 07/07/2017 5:38 [...] normal. Lungs are clear. Dee Dee Sewell [facility] OSVALDO XR Chest Port 1 View (07/06/2017 3:14 PM MOLD FILLER AND DRAINER) Anatomical Region Laterality Modality Chest Digital Radiography Specimen (Source) Anatomical Location Collection Method / Collectio n Time Received Time / Laterality Volume Narrative 07/06/2017 3:32 PM MOLD FILLER AND DRAINER XR CHEST 1 VIEW PORTABLE 07/06/2017 3:14 [...] inspiration. Lungs otherwise clear. Elvira Faulkner APRN [facility] ORD ERABLES ECG 12-LEAD WITH MUSE (LHE) (07/06/2017 2:30 PM MOLD FILLER AND DRAINER) [facility] Method Time Signature Systolic Blood mmHg 07/06/2017 HE RADIANT Pressure 3:30 PM CONVERSION MOLD FILLER AND DRAINER Diastolic Blood mmHg 07/06/2017 HE RADIANT Pressure 3:30 PM CONVERSION MOLD FILLER AND DRAINER Ventricular Rate 66 BPM 07/06/2017 HE RADIANT 3:30 PM CONVERSION MOLD FILLER AND DRAINER Atrial Rate 66 BPM 07/06/2017 HE RADIANT 3:30 PM CONVERSION MOLD FILLER AND DRAINER MI Interval 170 ms 07/06/2017 HE RADIANT 3:30 PM CONVERSION MOLD FILLER AND DRAINER QRS Duration 88 ms 07/06/2017 HE RADIANT 3:30 PM CONVERSION MOLD FILLER AND DRAINER QT 440 ms 07/06/2017 HE RADIANT 3:30 PM CONVERSION MOLD FILLER AND DRAINER QTc 461 ms 07/06/2017 HE RADIANT 3:30 PM CONVERSION MOLD FILLER AND DRAINER P [place] 57 degrees 07/06/2017 HE RADIANT 3:30 PM CONVERSION MOLD FILLER AND DRAINER R AXIS -4 degrees 07/06/2017 HE RADIANT 3:30 PM CONVERSION MOLD FILLER AND DRAINER T [place] 49 degrees 07/06/2017 HE RADIANT 3:30 PM CONVERSION MOLD FILLER AND DRAINER Interpretation Normal sinus rhythm 07/06/2017 HE R ADIANT ECG Normal ECG 3:30 PM CONVERSION When compared with ECG of 05-JUL-2017 10:37, MOLD FILLER AND DRAINER No significant change was found Confirmed by MARBIN ??ILYA CLEMENTS LOC: ([id number]) on 7 3:30:16 PM Specimen Anatomical Collection Method Collection Time Receive d Time (Source) Location / / Volume Laterality 07/06/2017 2:30 PM 3:30 MOLD FILLER AND DRAINER PM MOLD FILLER AND DRAINER Dee Dee Sewell MANAGER BAKERY ECG ORDERABLES Performing Organization Address City/State/ZIP Code Phon e Number HE CARDIOLOGY CONVERSION HE RADIANT CONVERSION ECHO REINALDO Interventional (07/06/2017 1:55 PM MOLD FILLER AND DRAINER) [facility] gist Method Time Signature AV mean oniel 122 cm/s 07/06/2017 2:13 PM MOLD FILLER AND DRAINER AV mean gradient 7 mmHg 07/06/2017 2:13 PM MOLD FILLER AND DRAINER AV VTI 45.8 cm 07/06/2017 2:13 PM MOLD FILLER AND DRAINER AV peak oniel 192 cm/s 07/06/2017 2:13 PM MOLD FILLER AND DRAINER LVOT diam 2 cm 07/06/2017 2:13 PM MOLD FILLER AND DRAINER LEFT VENTRICULAR 1 mmHg 07/06/2017 OUTFLOW TRACT MEAN 2:13 PM MOLD FILLER AND DRAINER GRADIENT LVOT peak VTI 16.5 cm 07/06/2017 2:13 PM MOLD FILLER AND DRAINER LEFT VENTRICULAR 48.6 cm/s 07/06/2017 OUTFLOW TRACT MEAN 2:13 PM MOLD FILLER AND DRAINER VELOCITY LVOT peak oniel 70.6 cm/s 07/06/2017 2:13 PM MOLD FILLER AND DRAINER LEFT VENTRICULAR 2 mmHg 07/06/2017 OUTFLOW TRACT PEAK 2:13 PM MOLD FILLER AND DRAINER GRADIENT BSA 2.39 m2 07/06/2017 2:13 PM MOLD FILLER AND DRAINER End systolic index 62 in 07/06/2017 (mL/m2) 2:13 PM MOLD FILLER AND DRAINER End diastolic 4,596.8 lbs 07/06/2017 index (mL/m2) 2:13 PM MOLD FILLER AND DRAINER BP 117/63 mmHg 07/06/2017 2:13 PM MOLD FILLER AND DRAINER HR 68 bpm 07/06/2017 2:13 PM MOLD FILLER AND DRAINER AV annulus area 4.40 cm 07/06/2017 2:13 PM MOLD FILLER AND DRAINER AV area 1.1 cm2 07/06/2017 2:13 PM MOLD FILLER AND DRAINER AV DIM IND oniel 0.4 07/06/2017 2:13 PM MOLD FILLER AND DRAINER LVOT area 3.14 cm2 07/06/2017 2:13 PM MOLD FILLER AND DRAINER LVOT SV 51.8 cm3 07/06/2017 2:13 PM MOLD FILLER AND DRAINER AV peak gradient 14.7 mmHg 07/06/2017 2:13 PM MOLD FILLER AND DRAINER LV SVi 21.7 ml/m2 07/06/2017 2:13 PM MOLD FILLER AND DRAINER LV CO 3.5 l/min 07/06/2017 2:13 PM MOLD FILLER AND DRAINER LV Ci 1.5 l/min/m2 07/06/2017 2:13 PM MOLD FILLER AND DRAINER Height 62.0 in 07/06/2017 2:13 PM MOLD FILLER AND DRAINER Weight 287 lbs 07/06/2017 2:13 PM MOLD FILLER AND DRAINER AV DIMENSIONLESS 0.4 07/06/2017 INDEX VTI 2:13 PM MOLD FILLER AND DRAINER AORTIC VALVE 2.20 cm 07/06/2017 ANNULUS SHORT AXIS 2:13 PM MOLD FILLER AND DRAINER AORTIC VALVE 2.50 cm 07/06/2017 ANNULUS LONG AXIS 2:13 PM MOLD FILLER AND DRAINER Echo LVEF 65 % 07/06/2017 Estimated 2:13 PM MOLD FILLER AND DRAINER Anatomical Region Laterality Modality Echocardiography Specimen (Source) Anatomical Collection Method Collection Time Re ceived Time Location / / Volume Laterality 07/06/2017 7:37 AM MOLD FILLER AND DRAINER Narrative 07/06/2017 2:13 PM MOLD FILLER AND DRAINER ?? Aortic Valve: The valve is tricuspid. [...] Aortic Valve Replacement-Femoral Approach (07/06/2017 1:41 PM MOLD FILLER AND DRAINER) Anatomical Region Laterality Modality Other Specimen (Source) Anatomical Collection Method Collection Time Re ceived Time Location / / Volume Laterality 06/08/2017 10:59 AM MOLD FILLER AND DRAINER Narrative 07/06/2017 2:16 PM MOLD FILLER AND DRAINER Procedure: Transcatheter aortic valve replacement Indication: Severe [...] the coplanar angle. After appropriate anticoagulation, the YuuConnect E sheath was placed through the right [...] the coplanar angle. After appropriate anticoagulation, the YuuConnect E sheath was placed through the right [...] disorders documented in this encounter Care Teams Compress Engineer Relationship Specialty Start Date End Date Elyse Paredes MD PCP - General [facility] Practice 12/22/13 04/21/22 [address] [place] [address] documented as of this encounter
--- OUTSIDE RECORDS SUMMARY | 2022-07-09 14:26 | XMS_ITS | Encounter Summary ---
:1950 Author Organization [facility] Address [address] [place] [address] Care Team Providers Name Role Phone Elyse Paredes MD Primary Care Provider Reason for Visit Reason Comments Other Plan for TAVR / Dental Encounter Details Date Type Department Care Team Description 06/28/2017 Communication - [facility] Provider, Other ( Plan for [facility] Historical TAVR / [place] al) [address] [address] Social History Tobacco Use Types Packs/Day Years Used Date Smoking Tobacco: Never Assessed Sex Assigned at Date Recorded Not on file documented as of this encounter Plan of Treatment Not on filedocumented as of this encounter Visit Diagnoses Not on filedocumented in this encounter Care Teams Fiberline Supervisor Relationship Specialty Start Date End Date Elyse Paredes MD PCP - General Family Practice 12/22/13 04/21/22 [address] [place] [address] documented as of this encounter
--- OUTSIDE RECORDS SUMMARY | 2022-07-09 14:26 | XMS_ITS | Encounter Summary ---
:1950 Author Organization [place] Address [address] [place] [address] Care Team Providers Name Role Phone Elyse Paredes MD Primary Care Provider Encounter Details Date Type Department Care Team Description 06/28/2017 Surgery - [facility] [address] [address] Social History Tobacco Use Types [...] 129.3 kg (285 lb) 06/28/2017 9:00 AM MIXER AND SCALER Height - - Body Mass Index 52.13 06/05/2017 5:59 PM CDT documented in this encounter Plan of Treatment Not on filedocumented as of this encounter Visit Diagnoses Not on filedocumented in this encounter Care Teams Hydrodynamics Professor Relationship Specialty Start Date End Date Elyse Paredes MD PCP - General Family Practice 12/22/13 04/21/22 15[address] [place] [address] documented as of this encounter
--- OUTSIDE RECORDS SUMMARY | 2022-07-09 14:26 | XMS_ITS | Encounter Summary ---
:1950 Author Organization [place] Address [address] [place] [address] Care Team Providers Name Role Phone Elyse Paredes MD Primary Care Provider Encounter Details Date Type Department Care Team Description 07/06/2017 [facility] CARDIAC CERTIFIED NURSE OPERATING ROOM Johnathan Martinez MD [address] [facility] [address] [place], [place] [id number] Social History Tobacco Use Types Packs/Day Years [...] 125.6 kg (277 lb) 07/08/2017 5:00 AM PROCESS DESIGN CHEMICAL ENGINEER Height 157.5 cm (5' 2) 07/06/2017 8:21 AM PROCESS DESIGN CHEMICAL ENGINEER Body Mass Index 50.66 07/06/2017 8:21 AM PROCESS DESIGN CHEMICAL ENGINEER documented in this encounter Plan of Treatment Not on filedocumented as of this encounter Visit Diagnoses Not on filedocumented in this encounter Care Teams Cosmetics And Toiletries Salesperson Relationship Specialty Start Date End Date Elyse Paredes MD PCP - General Family Practice 12/22/13 04/21/22 1540 [place] [address] documented as of this encounter
--- OUTSIDE RECORDS SUMMARY | 2022-07-09 14:26 | XMS_ITS | Encounter Summary ---
:1950 Author Organization [place] Address [address] [place] [address] Care Team Providers Name Role Phone Elyse Paredes MD Primary Care Provider Encounter Details Date Type Department Care Team Description 07/05/2017 Hospital Encounter [facility] Suzanna Martinez re aortic [facility] MD Ankush [facility] [address] [facility] [address] [address] [phone] Social History Tobacco Use Types Packs/Day Years [...] PM Severe aortic Res ults for this FISHER TRAWL NET stenosis procedure are i n the results section. documented in this encounter Results XR Chest 2 Views (07/05/2017 12:28 PM FISHER TRAWL NET) Anatomical Region Laterality Modality Chest Digital Radiography Specimen (Source) Anatomical Location Collection Method / Collectio n Time Received Time / Laterality Volume Narrative 07/05/2017 1:00 PM FISHER TRAWL NET XR CHEST 2 VIEWS 07/05/2017 12:28 PM [...] disorders documented in this encounter Care Teams Transport Nurse Relationship Specialty Start Date End Date Elyse Paredes MD PCP - General Family Practice 12/22/13 04/21/22 1540 [place] [address] documented as of this encounter
--- OUTSIDE RECORDS SUMMARY | 2022-07-09 14:26 | XMS_ITS | Encounter Summary ---
:1950 Author Organization [place] Address [address] [place] [address] Care Team Providers Name Role Phone Elyse Paredes MD Primary Care Provider Reason for Visit Reason Comments Other Medications Encounter Details Date Type Department Care Team Description 06/28/2017 Communication [facility] (Medication s) [address] [address] Social History Tobacco Use Types Packs/Day Years Used Date Smoking Tobacco: Never Assessed Sex Assigned at Date Recorded Not on file documented as of this encounter Plan of Treatment Not on filedocumented as of this encounter Visit Diagnoses Not on filedocumented in this encounter Care Teams Tear Down Matcher Relationship Specialty Start Date End Date Elyse Paredes MD PCP - General Family Practice 12/22/13 04/21/22 1540 [place] [address] documented as of this encounter
--- OUTSIDE RECORDS SUMMARY | 2022-07-09 14:27 | XMS_ITS | Encounter Summary ---
:1950 Author Organization [place] Address [address] [place] [address] Care Team Providers Name Role Phone Dagmar Kang MD Unavailable Elyse Paredes MD Primary Care Provider Dagmar Kang MD Unavailable Raghu Bae MD Primary Care Provider [phone] Nicole Salazar APRN GERMAN PROFESSOR Unavailable [phone] Encounter Details Date Type Department Care Team Description 05/28/2017 [facility] - [facility] CONVERSION Scan, Non-Provider Social History Tobacco Use Types Packs/Day Years Used Date Smoking Tobacco: Never Assessed Sex Assigned at Date Recorded Not on file documented as of this encounter Plan of Treatment Not on filedocumented as of this encounter Visit Diagnoses Not on filedocumented in this encounter Care Teams Barrel Straightener Relationship Specialty Start Date End Date Elyse Paredes MD PCP - General Family Practice 12/22/13 04/21/22 1540 [place] [address] Raghu Bae PCP - General Emergency Medicine 04/22/22 MD [facility] [address] [place] [address] Dagmar Kang MD Assigned Heart and 02/14/21 02/27/22 1600 [facility], Vascular Provider [address] [place] [address] Dagmar Kang MD Assigned Heart and 03/21/22 04/24/22 1600 [facility], Vascular Provider [address] [place] [address] Nicole Salazar, Assigned Heart and 04/25/22 SECURITY OFFICERS AND GUARDS GERMAN PROFESSOR Vascular Provider 1600 [facility] [address] [place] [address] documented as of this encounter
--- OUTSIDE RECORDS SUMMARY | 2022-07-09 14:27 | XMS_ITS | Encounter Summary ---
:1950 Author Organization [place] Address [address] [place] [address] Care Team Providers Name Role Phone Elyse Paredes MD Primary Care Provider Reason for Visit Reason Comments Follow Up Encounter Details Date Type Department Care Team Description 12/30/2016 Office Visit - [facility] Kesha Quilesum bubba aortic valve stenosis; [facility] Heart [facility] Vamshi Cuevas MD [address], [place] [address] [place] [address] [phone] Social History Tobacco Use Types Packs/Day Years [...] Quiles MD - 12/30/2016 4:30 PM CDT [facility] Heart [facility] Outpatient Follow-up evaluation. Current Outpatient Prescriptions: ??? [...] angina. She is planning on traveling to [place] in April 2018 for 6 weeks and [...] errors may unintentionally occur. Vamshi Quiles M.[facility] documented in this encounter Plan of Treatment Not on filedocumented as of this encounter Visit Diagnoses Diagnosis Nonrheumatic aortic valve stenosis Aortic valve disorders Pure hypercholesterolemia documented in this encounter Care Teams Rn Occupational Relationship Specialty Start Date End Date Elyse Paredes MD PCP - General Family Practice 12/22/13 04/21/[address] [place] [address] documented as of this encounter
--- OUTSIDE RECORDS SUMMARY | 2022-07-09 14:27 | XMS_ITS | Encounter Summary ---
:1950 Author Organization [place] Address [address] [place] [address] Care Team Providers Name Role Phone Elyse Paredes MD Primary Care Provider Encounter Details Date Type Department Care Team Description 04/21/2017 Hospital Encounter [facility], Suzanna re aortic [facility] [address] [place] [address] [phone] Social History Tobacco Use Types Packs/Day Years [...] quality is limited). Alistair Limon MD, PhD, [facility] Non-airfield manager Procedure Note Alistair Limon - 01/06/2021Formatting of [...] exposure. Image post processing was performed on [employer] Images workstation. T his study was performed [...] quality is limited). Alistair Limon MD, PhD, [facility] Non-airfield manager Alfonzo Steele MD IMG CT ORDERABLES CTA [...] 3D reconstructions were perfor med by the pulmonary function technologist. Dose reduction techniqu es were used. [...] and 3D reconstructions were performed by the pulmonary function technologist. Dose reduction techniqu es were used. [...] disorders documented in this encounter Care Teams Meal Packer Relationship Specialty Start Date End Date Elyse Paredes MD PCP - General Family Practice 12/22/13 04/21/22 [address] [place] [address] documented as of this encounter
--- OUTSIDE RECORDS SUMMARY | 2022-07-09 14:27 | XMS_ITS | Encounter Summary ---
:1950 Author Organization [place] Address [address] [place] [address] Care Team Providers Name Role Phone Elyse Paredes MD Primary Care Provider Reason for Visit Reason Comments Consult Encounter Details Date Type Department Care Team Description 05/27/2017 Office Visit - [facility] Tanner [place] PA-C [address] [place] [address] Coronary artery disease involving [place] coronary artery of [place] heart, angina presence unspecified; [facility] Heart [facility] St. Provider, Historical Severe aortic stenosis; [place] DEDE on CPAP; [address] Type 2 diabetes mellitus without complication, with long-term current use of insulin (H); [place] [phone] Social History Tobacco Use Types Packs/Day Years [...] Visit Diagnoses Diagnosis Coronary artery disease involving [place] coronary artery of [place] heart, angina presence unspecified Severe aortic stenosis Aortic valve disorders DEDE on CPAP Obstructive sleep apnea (adult) (pediatr ic) Type 2 diabetes mellitus without complic ation, with long-term current use of insulin (H) Essential hypertension Unspecified essential hypertension documented in this encounter Care Teams Fleet Technician Relationship Specialty Start Date End Date Elyse Paredes MD PCP - General Family Practice 12/22/13 04/21/22 1540 [place] [address] documented as of this encounter
--- OUTSIDE RECORDS SUMMARY | 2022-07-09 14:27 | XMS_ITS | Encounter Summary ---
:1950 Author Organization [place] Address [address] [place] [address]. [place] [address] Care Team Providers Name Role Phone Dagmar Kang MD Unavailable Elyse Paredes MD Primary Care Provider Encounter Details Date Type Department Care Team Description 03/30/2017 Records - [facility] CONVERSION Provider, Karthik raya Social History Tobacco Use Types Packs/Day Years Used Date Smoking Tobacco: Never Assessed Sex Assigned at Date Recorded Not on file documented as of this encounter Plan of Treatment Not on filedocumented as of this encounter Visit Diagnoses Not on filedocumented in this encounter Care Teams Chief Deputy Clerk/Bailiff Relationship Specialty Start Date End Date Elyse Paredes MD PCP - General Family Practice 12/22/13 04/21/22 15[address] [place] [address] Dagmar Kang MD Assigned Heart and 02/14/21 02/27/[address] [facility], Vascular Provider [address] [place] [address] documented as of this encounter
--- OUTSIDE RECORDS SUMMARY | 2022-07-09 14:27 | XMS_ITS | Encounter Summary ---
:1950 Author Organization [place] Address [address] [place] [address] Care Team Providers Name Role Phone Elyse Paredes MD Primary Care Provider Reason for Visit Reason Comments Consult Encounter Details Date Type Department Care Team Description 05/27/2017 Office Visit - [facility] lCem Rossi Aorti c stenosis [facility] Heart [facility] dorota Starr MD [address] [place] [address] [phone] Social History Tobacco Use Types Packs/Day Years [...] Surgery Consult Date of Service: 05/27/2017 REFERRING [employer] POLICE LAUNCH COMMANDER: Dr. Martinez REASON FOR CONSULTATION: Severe aortic stenosis - evaluate for TAVR HISTORY OF PRESENT ILLNESS: Marci Diza is a 67 y.o. female who presents [...] Angiogram; Surgeon: Ankush Martinez MD; Location: [facility] Lumber Estimator; Service: ??? knee replacements Bilateral ALLERGIES: Allergies [...] spent in review of the chart and [id number]-[id number] time with the patient. Thank you very much for this referral. Clem Rossi 05/27/2017 4:07 PM Cardiothoracic Surgery [phone] documented in this encounter Plan of Treatment Not on filedocumented as of this encounter Visit Diagnoses Diagnosis Aortic stenosis Aortic valve disorders documented in this encounter Care Teams Automatic Packer Operator Relationship Specialty Start Date End Date Elyse Paredes MD PCP - General [facility] Practice 12/22/13 04/21/[address] [place] [address] documented as of this encounter
--- OUTSIDE RECORDS SUMMARY | 2022-07-09 14:27 | XMS_ITS | Encounter Summary ---
:1950 Author Organization [place] Address [address] [place] [address] Care Team Providers Name Role Phone Elyse Paredes MD Primary Care Provider Encounter Details Date Type Department Care Team Description 12/09/2016 [facility] Provider, Aortic jus [facility] [address] [place] [address] [facility] [address] [address] Social History Tobacco Use Types Packs/Day Years Used Date Smoking Tobacco: Never Assessed Sex Assigned at Date Recorded Not on file documented as of this encounter Plan of Treatment Not on filedocumented as of this encounter Visit Diagnoses Diagnosis Aortic stenosis Aortic valve disorders documented in this encounter Care Teams Waiter/Waitress Informal Relationship Specialty Start Date End Date Elyse Paredes MD PCP - General Family Practice 12/22/13 04/21/22 1540 [place], [place] [address] documented as of this encounter
--- OUTSIDE RECORDS SUMMARY | 2022-07-09 14:27 | XMS_ITS | Encounter Summary ---
:1950 Author Organization [place] Address [address] [place] [address] Care Team Providers Name Role Phone Elyse Paredes MD Primary Care Provider Encounter Details Date Type Department Care Team Description 12/25/2016 [facility] Provider, [address] [address] Social History Tobacco Use Types Packs/Day Years Used Date Smoking Tobacco: Never Assessed Sex Assigned at Date Recorded Not on file documented as of this encounter Plan of Treatment Not on filedocumented as of this encounter Visit Diagnoses Not on filedocumented in this encounter Care Teams Jewel Waxer Relationship Specialty Start Date End Date Elyse Paredes MD PCP - General Family Practice 12/22/13 04/21/22 15[address] [place] [address] documented as of this encounter
--- OUTSIDE RECORDS SUMMARY | 2022-07-09 14:27 | XMS_ITS | Encounter Summary ---
:1950 Author Organization [place] Address [address] [place] [address] Care Team Providers Name Role Phone Elyse Paredes MD Primary Care Provider Encounter Details Date Type Department Care Team Description 12/02/2016 [facility], Aortic stenosis [facility] Heart Care 15[address] [facility] 1600 [facility], [address] [address] [place], [place] [phone] [facility] Social History Tobacco Use Types Packs/Day [...] Results Echocardiogram Complete (12/02/2016 3:45 PM CDT) [facility] gist Method Time Signature LV volume [...] Note Jazmin Michaels MD / Provider, [facility] 01/07/2021 ?? When compared to the previous study d ated 08/09/2015, there are changes noted. Aortic stenosis is now moderate to severe. ?? Left ventricle ejection fraction is n ormal. The calculated left ventricular ejection fraction is 62%. ?? Moderate to severe aortic stenosis. Vasmhi Quiles MD CV ECHO ORDERABLES documented in this encounter Visit Diagnoses Diagnosis Aortic stenosis Aortic valve disorders documented in this encounter Care Teams Garbage Pick Up Worker Relationship Specialty Start Date End Date Elyse Paredes MD PCP - General Family Practice 12/22/13 04/21/22 [address] [place] [address] documented as of this encounter
--- OUTSIDE RECORDS SUMMARY | 2022-07-09 14:27 | XMS_ITS | Encounter Summary ---
:1950 Author Organization [place] Address [address] [place] [address]. [place] [address] Care Team Providers Name Role Phone Dagmar Kang MD Unavailable Elyse Paredes MD Primary Care Provider Dagmar Kang MD Unavailable Raghu Bae MD Primary Care Provider [phone] Nicole Salazar APRN CARPET INSPECTOR FINISHED Unavailable [phone] Encounter Details Date Type Department Care Team Description 04/16/2017 Records - [facility] Tracie Pino RN [address] [address] Social History Tobacco Use [...] on filedocumented in this encounter Care Teams Coding Technician Relationship Specialty Start Date End Date Elyse Paredes MD PCP - General Family Practice 12/22/13 04/21/22 15[address] [place], [place] [phone] Raghu Bae PCP - General Emergency Medicine 04/22/22 MD [facility]ne [facility] [address] [place] [address] Dagmar Kang MD Assigned Heart and 02/14/21 02/27/[address] [facility], Vascular Provider [address] [place], [place] [phone] Dagmar Kang MD Assigned Heart and 03/21/22 04/24/[address] [facility], Vascular Provider [address] [place], [place] [phone] Nicole Salazar, Assigned Heart and 04/25/22 AUTOMOTIVE REFINISHER CARPET INSPECTOR FINISHED Vascular Provider 1600 [facility] [address] [place], [place] [address] documented as of this encounter
--- OUTSIDE RECORDS SUMMARY | 2022-07-09 14:27 | XMS_ITS | Encounter Summary ---
:1950 Author Organization [place] Address [address] [place] [address] Care Team Providers Name Role Phone Elyse Paredes MD Primary Care Provider Encounter Details Date Type Department Care Team Description 03/25/[address] [facility] Kendrick Quiles T, Aortic stenosis [facility] Heart Care [address] [place] [address], [address] [place] [address] [phone] Social History Tobacco Use Types Packs/Day Years [...] Results Echocardiogram Complete (03/25/2017 11:40 AM CDT) [facility] gist Method Time Signature LV volume diastolic [...] Note Ilya Rogers MD / Provider, [facility] - 01/07/2021 ?? The estimated left ventricular [...] disorders documented in this encounter Care Teams [place] Specialist Relationship Specialty Start Date End Date Elyse Paredes MD PCP - General Family Practice 12/22/13 04/21/[address] [address] documented as of this encounter
--- OUTSIDE RECORDS SUMMARY | 2022-07-09 14:27 | XMS_ITS | Encounter Summary ---
:1950 Author Organization [place] Address [address] [place] [address]. [place] [address] Care Team Providers Name Role Phone Elyse Paredes MD Primary Care Provider Reason for Visit Reason Comments Other Plan for TAVR Encounter Details Date Type Department Care Team Description 05/27/2017 [facility] Provider, Severe aor [facility] Heart [address] [phone] Social History Tobacco Use Types Packs/Day Years [...] documented in this encounter Care Teams Social Organization Professor Relationship Specialty Start Date End Date Elyse Paredes MD PCP - General Family Practice 12/22/13 04/21/22 15[address] [place] [address] documented as of this encounter
--- OUTSIDE RECORDS SUMMARY | 2022-07-09 14:27 | XMS_ITS | Encounter Summary ---
:1950 Author Organization [place] Address [address] [place] [address] Care Team Providers Name Role Phone Elyse Paredes MD Primary Care Provider Encounter Details Date Type Department Care Team Description 05/12/2017 [facility] CARDIAC WOOL MIXER Johnathan Martinez MD [address] [facility] [address] [place], [place] [phone] Social History Tobacco Use Types Packs/Day Years [...] on filedocumented in this encounter Care Teams Maintenance Truck Driver Relationship Specialty Start Date End Date Elyse Paredes MD PCP - General Family Practice 12/22/13 04/21/22 15[address] [place] [address] documented as of this encounter
--- OUTSIDE RECORDS SUMMARY | 2022-07-09 14:27 | XMS_ITS | Encounter Summary ---
:1950 Author Organization [place] Address [address] [place] [address] Care Team Providers Name Role Phone Elyse Paredes MD Primary Care Provider Reason for Visit Reason Comments Consult Encounter Details Date Type Department Care Team Description 05/27/2017 Office Visit - [facility] Kaushal Martinezheum at aortic [facility] Heart Clinic St. Barry MD valve stenosis [address] [place] [address] [phone] Social History Tobacco Use Types Packs/Day Years [...] Martinez MD - 05/27/2017 3:30 PM CDT [facility] Heart Care Note Assessment / Plan: [...] pleasure to see Marci Diaz at the [facility] Heart [facility] at the request of Dr. Steele for evaluation of treatment options for severe aortic stenosis. Marci Diaz is a pleasant 67 y.o. female with known aortic stenosis that has progressed in severityover the past year. 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 Coronary artery disease involving [place] coronary artery of [place] heart, angina presence unspecified Medical History: Past [...] Coronary Angiogram; Surgeon: Barry Martinez MD; Location: [facility] Sap Hana Developer; Service: ??? knee replacements Bilateral Social History: [...] Cath films independently reviewed BARRY MARTINEZ MD COUNT INCLUDES [facility] documented in this encounter Plan of Treatment Not on filedocumented as of this encounter Visit Diagnoses Diagnosis Nonrheumatic aortic valve stenosis Aortic valve disorders documented in this encounter Care Teams Academic Vice President Relationship Specialty Start Date End Date Elyse Paredes MD PCP - General Family Practice 12/22/13 04/21/22 1540 [place] [address] documented as of this encounter
--- OUTSIDE RECORDS SUMMARY | 2022-07-09 14:27 | XMS_ITS | Encounter Summary ---
:1950 Author Organization [place] Address [address] [place] [address] Care Team Providers Name Role Phone Elyse Paredes MD Primary Care Provider Encounter Details Date Type Department Care Team Description 05/12/2017 Hospital Encounter [facility] Ahmed, Coronary artery disease involving kluti kaah coronary artery of kluti kaah heart, angina presence unspecified; SPECIAL CARE MD Ankush Severe aortic stenosis; [address] [facility] Coronary arter y disease involving kluti kaah coronary artery of kluti ka[place] heart without angina pectoris [address] [place] [address] Social History Tobacco Use Types Packs/Day Years [...] AM CDT H&P Pre-Procedure Update Marci Luís Diaz 05/11/2017 Provider: VITOR Mccray Patient presents for [...] WITH MUSE (LHE) (05/12/2017 9:43 AM CDT) [facility] gist Method Time Signature Systolic Blood mmHg 05/12/2017 [facility] Pressure 12:50 PM CONVERSION CDT Diastolic Blood mmHg 05/12/2017 [facility] Pressure 12:50 PM CONVERSION CDT Ventricular Rate 60 BPM 05/12/2017 [facility] 12:50 PM CONVERSION CDT Atrial Rate 60 BPM 05/12/2017 [facility] 12:50 PM CONVERSION CDT TN Interval 130 ms 05/12/2017 HE [facility] 12:50 PM CONVERSION CDT QRS Duration 88 ms 05/12/2017 [facility] 12:50 PM CONVERSION CDT QT 398 ms 05/12/2017 [facility] 12:50 PM CONVERSION CDT QTc 398 ms 05/12/2017 [facility] 12:50 PM CONVERSION CDT P Delevan -10 degrees 05/12/2017 [facility] 12:50 PM CONVERSION CDT R AXIS 12 degrees 05/12/2017 [facility] 12:50 PM CONVERSION CDT T Delevan 27 degrees 05/12/2017 [facility] 12:50 PM CONVERSION CDT Interpretation Normal sinus rhythm with occasional Premature atrial complexes 05/12/2017 HE [facility] ECG Otherwise normal ECG 12:50 PM CONVERSIO N When compared with ECG of 12-MAY-2017 06:45, CDT Vent. rate has decreased BY ??39 BPM Confirmed by KATHY ??, COREEN LOC:SJ ([id number]) on 05/12/2017 12:50:33 PM Specimen Anatomical Collection [...] 05/12/2017 HE RADIANT 8:48 AM CDT CONVERSION TN Interval 154 ms 05/12/2017 HE RAD[facility] 8:48 AM CDT CONVERSION QRS Duration 90 ms 05/12/2017 HE RAD[facility]ANT 8:48 AM CDT CONVERSION QT 352 ms 05/12/2017 HE RAD[facility] 8:48 AM CDT CONVERSION QTc 451 ms 05/12/2017 [facility] RAD[facility] 8:48 AM CDT CONVERSION P Delevan 43 degrees 05/12/2017 HE RAD[facility] 8:48 AM CDT CONVERSION R AXIS 17 degrees 05/12/2017 HE RADIANT 8:48 AM CDT CONVERSION T Delevan 35 degrees 05/12/2017 HE RADIANT 8:48 AM CDT CONVERSION Interpretation Normal sinus rhythm 05/12/2017 HE R ADIANT ECG Normal ECG 8:48 AM CDT CONVERSION When compared with ECG of 07-JAN-2010 22:24, Vent. rate has increased BY ??40 BPM Confirmed by LETTY ??BERRY CLEMENTS LOC:SJ ([id number]) on 05/12/2017 8:48:14 AM Specimen Anatomical Collection Method Collection Time Receive d Time (Source) Location / / Volume Laterality 05/12/2017 6:46 AM 7 8:48 CDT AM CDT Alfonzo Steele MD ECG ORDERABLES Performing Organization Address City/State/ZIP Code Phon e Number HE CARDIOLOGY CONVERSION HE RADIANT CONVERSION documented in this encounter Visit Diagnoses Diagnosis Coronary artery disease involving kluti kaah coronary artery of kluti ka[place] heart, angina presence unspecified Severe aortic stenosis Aortic valve disorders Coronary artery disease involving kluti kaah coronary artery of kluti kaah heart without angina pectoris documented in this encounter Care Teams Process Controls Technician Relationship Specialty Start Date End Date Elyse Paredes MD PCP - General Family Practice 12/22/13 04/21/22 [address] [place] [address] documented as of this encounter
--- OUTSIDE RECORDS SUMMARY | 2022-07-09 14:27 | XMS_ITS | Encounter Summary ---
:1950 Author Organization [facility] Address [address] [place] [address] Care Team Providers Name Role Phone Elyse Paredes MD Primary Care Provider Encounter Details Date Type Department Care Team Description 03/30/2017 Ambulatory - [facility] [address] [address] Social History Tobacco Use [...] on filedocumented in this encounter Care Teams Preform Plate Maker Relationship Specialty Start Date End Date Elyse Paredes MD PCP - General Family Practice 12/22/13 04/21/22 15[address] [place], [place] [id number] documented as of this encounter
--- OUTSIDE RECORDS SUMMARY | 2022-07-09 14:27 | XMS_ITS | Encounter Summary ---
:1950 Author Organization [facility] Address [address] [place] [address] Care Team Providers Name Role Phone Elyse Paredes MD Primary Care Provider Encounter Details Date Type Department Care Team Description 06/07/2017 [facility] Ahmed, Severe aor [facility] Heart Clinic St. Ankush MD [facility] [address] [place] [address] [phone] Social History Tobacco Use Types Packs/Day Years Used Date Smoking Tobacco: Never Assessed Sex Assigned at Date Recorded Not on file documented as of this encounter Plan of Treatment Not on filedocumented as of this encounter Visit Diagnoses Diagnosis Severe aortic stenosis Aortic valve disorders documented in this encounter Care Teams Computer Networking Instructor Relationship Specialty Start Date End Date Elyse Paredes MD PCP - General Family Practice 12/22/13 04/21/22 [address] [place] [address] documented as of this encounter
--- OUTSIDE RECORDS SUMMARY | 2022-07-09 14:27 | XMS_ITS | Encounter Summary ---
:1950 Author Organization [facility] Address [address] [place] [address] Care Team Providers Name Role Phone Elyse Paredes MD Primary Care Provider Reason for Visit Reason Comments Other Encounter Details Date Type Department Care Team Description 06/07/2017 Office Visit - [facility] Clem Johnsu marie of ureter; [facility] MYRA Bello MD Hydronephrosis with urinary obstruction due to ureteral calculus; [address], [address] Calculus of kidney; [address] [place], [place] [address] [phone] (Work) Social History Tobacco Use Types Packs/Day [...] a 67 y.o. female presenting to the [facility] [place] following recent WW ED visit for urolithiasis. [...] Coronary Angiogram; Surgeon: Ankush Martinez MD; Location: [facility] Spring Maker; Service: ??? knee replacements Bilateral Current Outpatient [...] Ref Range Status 06/05/2017 No Growth Final O NETWORK ARCHITECT documented in this encounter Plan of Treatment Not on filedocumented as of this encounter Visit Diagnoses Diagnosis Calculus of ureter Hydronephrosis with urinary obstruction due to ureteral calculus Calculus of kidney Urinary tract stones Urinary calculus, unspecified documented in this encounter Care Teams Enlisted Aircrew/Aerial Observer/Gunner Relationship Specialty Start Date End Date Elyse Paredes MD PCP - General Family Practice 12/22/13 04/21/22 1540 [place] [address] documented as of this encounter
--- OUTSIDE RECORDS SUMMARY | 2022-07-09 14:27 | XMS_ITS | Encounter Summary ---
:1950 Author Organization [facility] Address [address] [place] [address] Care Team Providers Name Role Phone Elyse Paredes MD Primary Care Provider Encounter Details Date Type Department Care Team Description 04/16/2017 [facility] Provider, Severe aor [facility] Heart Clinic St. Historical stenosis [address] [address] Social History Tobacco Use Types Packs/Day Years Used Date Smoking Tobacco: Never Assessed Sex Assigned at Date Recorded Not on file documented as of this encounter Plan of Treatment Not on filedocumented as of this encounter Visit Diagnoses Diagnosis Severe aortic stenosis Aortic valve disorders documented in this encounter Care Teams Machine Tool Technology Instructor Relationship Specialty Start Date End Date Elyse Paredes MD PCP - General Family Practice 12/22/13 04/21/22 1540 [place], [place] [id number] documented as of this encounter
--- OUTSIDE RECORDS SUMMARY | 2022-07-09 14:27 | XMS_ITS | Encounter Summary ---
:1950 Author Organization [place] Address [address] [place] [address] Care Team Providers Name Role Phone Elyse Paredes MD Primary Care Provider Encounter Details Date Type Department Care Team Description 12/25/2016 [facility] Provider, [address] [address] Social History Tobacco Use Types Packs/Day Years Used Date Smoking Tobacco: Never Assessed Sex Assigned at Date Recorded Not on file documented as of this encounter Plan of Treatment Not on filedocumented as of this encounter Visit Diagnoses Not on filedocumented in this encounter Care Teams Doughnut Fryer Relationship Specialty Start Date End Date Elyes Paredes MD PCP - General Family Practice 12/22/13 04/21/22 1540 [place] [address] documented as of this encounter
--- OUTSIDE RECORDS SUMMARY | 2022-07-09 14:27 | XMS_ITS | Encounter Summary ---
:1950 Author Organization [facility] Address [address] [place] [address] Care Team Providers Name Role Phone Elyse Paredes MD Primary Care Provider Reason for Visit Reason Comments Pt Ed Cor Angio 05/12 Encounter Details Date Type Department Care Team Description 04/16/2017 [facility] Provider, [facility] Heart [address] [phone] Social History Tobacco Use Types Packs/Day Years Used Date Smoking Tobacco: Never Assessed Sex Assigned at Date Recorded Not on file documented as of this encounter Progress Notes Tomas Pino RN - 04/16/2017 3:06 PM CDT [facility] Heart Care RN Pre-Procedure Education Note Procedure: Cor Angio poss pCI With Dr. Martinez Date of Procedure: 05/12/17 Arrival time: 0630AM Location: [facility] Diagnosis: Severe Mail Service Coordinator Ordering Procedure: Dr Steele Primary Mail Service Coordinator: Dr. patel PCP: Elyse Paredes MD H&P [...] on filedocumented in this encounter Care Teams Paper Bag Maker Relationship Specialty Start Date End Date Elyse Paredes MD PCP - General Family Practice 12/22/13 04/21/22 [address] [address] documented as of this encounter
--- OUTSIDE RECORDS SUMMARY | 2022-07-09 14:27 | XMS_ITS | Encounter Summary ---
:1950 Author Organization [facility] Address [address] [place] [address]. [place] [address] Care Team Providers Name Role Phone Elyse Paredes MD Primary Care Provider Encounter Details Date Type Department Care Team Description 05/13/2017 [facility] Vamshi Quiles [facility] St Faith MD [address], [address] [place] [address] [phone] Social History Tobacco Use Types Packs/Day Years Used Date Smoking Tobacco: Never Assessed Sex Assigned at Date Recorded Not on file documented as of this encounter Plan of Treatment Not on filedocumented as of this encounter Visit Diagnoses Not on filedocumented in this encounter Care Teams Lan Specialist Relationship Specialty Start Date End Date Elyse Paredes MD PCP - General Family Practice 12/22/13 04/21/22 [address]40 [place] [address] documented as of this encounter
--- OUTSIDE RECORDS SUMMARY | 2022-07-09 14:27 | XMS_ITS | Encounter Summary ---
:1950 Author Organization [facility] Address [address] [place] [address] Care Team Providers Name Role Phone Elyse Paredes MD Primary Care Provider Encounter Details Date Type Department Care Team Description 03/26/2017 Ambulatory - [facility] Provider, Aortic ailyn ve [facility] Clinic . Historical [address] [address] Social History Tobacco Use Types Packs/Day Years Used Date Smoking Tobacco: Never Assessed Sex Assigned at Date Recorded Not on file documented as of this encounter Plan of Treatment Not on filedocumented as of this encounter Visit Diagnoses Diagnosis Aortic valve stenosis Aortic valve disorders documented in this encounter Care Teams Civil Engineer Land Development Relationship Specialty Start Date End Date Elyse Paredes MD PCP - General Family Practice 12/22/13 04/21/22 1540 [place], [place] [id number] documented as of this encounter
--- OUTSIDE RECORDS SUMMARY | 2022-07-09 14:27 | XMS_ITS | Encounter Summary ---
:1950 Author Organization [facility] Address [address] [place] [address]. [place] [address] Care Team Providers Name Role Phone Elyse Paredes MD Primary Care Provider Reason for Visit Reason Comments Flank Pain Encounter Details Date Type Department Care Team Description 06/05/2017 Hospital Encounter [facility] Cherise Stinson U reteral stone; DEPARTMENT MD Lynne Ureteral colic; [address] [place] [address] Flank pain, acute; [place], [place] Flank pain [phone] Social History Tobacco Use Types Packs/Day Years [...] behalf by Tay Malcolm, a trained medical transcription editor. This document has been checked and approved [...] Coronary Angiogram; Surgeon: Ankush Martinez MD; Location: [facility]; Service: ??? knee replacements Bilateral CURRENT MEDICATIONS [...] Negative Negative Ketones, UA Negative Negative Specific [place], UA 1.017 1.001 - 1.030 Blood, UA [...] - 0.8 mg/dL No results found for: [facility] Reviewed all pertinent imaging Please see [...] She will follow-up with a kidney stone [place]. She states that she last saw a urologist many many years ago and would like toactually see someone here at [facility]. Does not appear toxic. I do [...] CONDITION: Stable, improved DISPOSITION: D/c home with acid wash operator FINAL IMPRESSION 1. Ureteral stone 2. Ureteral colic 3. Flank pain, acute 4. Flank pain I, Dr. Shantell MD, personally performed the services described in this documentation, as scribed byTay Maclolm in my presence, and it is both [...] site documented in this encounter Care Teams Fisheries Officer Relationship Specialty Start Date End Date Elyse Paredes MD PCP - General Family Practice 12/22/13 04/21/22 [address] [place] [address] documented as of this encounter
--- OUTSIDE RECORDS SUMMARY | 2022-07-09 14:27 | XMS_ITS | Encounter Summary ---
:1950 Author Organization [facility] Address [address] [place] [address] Care Team Providers Name Role Phone Elyse Paredes MD Primary Care Provider Encounter Details Date Type Department Care Team Description 12/25/2016 Ambulatory - [facility] Heart [address] [place] [address] Social History Tobacco Use [...] on filedocumented in this encounter Care Teams Safe Deposit Clerk Relationship Specialty Start Date End Date Elyse Paredes MD PCP - General Family Practice 12/22/13 04/21/22 1540 [place], [place] [phone] documented as of this encounter
--- OUTSIDE RECORDS SUMMARY | 2022-07-09 14:27 | XMS_ITS | Encounter Summary ---
:1950 Author Organization [facility] Address [address] [place] [address] Care Team Providers Name Role Phone Elyse Paredes MD Primary Care Provider Reason for Visit Reason Comments Consult Encounter Details Date Type Department Care Team Description 04/16/2017 Office Visit - [facility] Ivette Nonrheum atic aortic valve stenosis; [facility] Heart [facility] Damien Bullard ao rtic stenosis Fransico CLEMENTS [address] [place] [phone] [place], [place] [phone] Social History Tobacco Use Types Packs/Day Years [...] Surgery Consult Date of Service: 04/16/2017 REFERRING RADIOLOGICAL TECHNICIAN: Dr. Elida Quiles REASON FOR CONSULTATION: Ms. Diaz is a 67 year-old woman with symptomatic severe . HISTORY OF PRESENT ILLNESS: Ms. Diaz is a 67 year-old woman with known that has now progressed inseverity. 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
--- OUTSIDE RECORDS SUMMARY | 2022-07-09 14:27 | XMS_ITS | Encounter Summary ---
:1950 Author Organization [facility] Address [address] [place] [address] Care Team Providers Name Role Phone Elyse Paredes MD Primary Care Provider Reason for Visit Reason Comments Other Encounter Details Date Type Department Care Team Description 05/12/2017 Communication - [facility] Michelle, Lorenar, Other [facility] MD [address] [facility] [address] [place] [address] Social History Tobacco Use Types Packs/Day Years Used Date Smoking Tobacco: Never Assessed Sex Assigned at Date Recorded Not on file documented as of this encounter Plan of Treatment Not on filedocumented as of this encounter Visit Diagnoses Diagnosis Coronary artery disease involving ute mountain coronary artery of ute mountain heart, angina presence unspecified documented in this encounter Care Teams Electrical Appliance Servicer Relationship Specialty Start Date End Date Elyse Paredes MD PCP - General Family Practice 12/22/13 04/21/22 1540 [place] [address] documented as of this encounter
--- OUTSIDE RECORDS SUMMARY | 2022-07-09 14:27 | XMS_ITS | Encounter Summary ---
:1950 Author Organization [place] Address [address] [place] [address] Care Team Providers Name Role Phone Elyse Paredes MD Primary Care Provider Encounter Details Date Type Department Care Team Description 04/16/2017 Surgery - [facility] Clinic [address] [address] Social History Tobacco Use Types Packs/Day Years Used Date Smoking Tobacco: Never Assessed Sex Assigned at Date Recorded Not on file documented as of this encounter Plan of Treatment Not on filedocumented as of this encounter Visit Diagnoses Not on filedocumented in this encounter Care Teams Labeling Specialist Relationship Specialty Start Date End Date Elyse Paredes MD PCP - General Family Practice 12/22/13 04/21/22 1540 [place], [place] [phone] documented as of this encounter
--- OUTSIDE RECORDS SUMMARY | 2022-07-09 14:27 | XMS_ITS | Encounter Summary ---
:1950 Author Organization [place] [facility] Address [address] [place] [address] Care Team Providers Name Role Phone Elyse Paredes MD Primary Care Provider Reason for Visit Reason Comments Other Severe ; referral to valve clinic Encounter Details Date Type Department Care Team Description 04/16/2017 [facility] Provider, [facility] Clinic [address] [phone] Social History Tobacco Use Types Packs/Day Years Used Date Smoking Tobacco: Never Assessed Sex Assigned at Date Recorded Not on file documented as of this encounter Progress Notes Tomas Pino RN - 04/16/2017 2:54 PM CDT Referring provider: Dr. Steele (see consult note) Serum albumin (date completed 04/16/17): 3.7 5 meter walk (date completed 04/16/17): 5.62,5.56, 5.81 Zinc Furnace Charger Strength (date completed 04/16/17): 50.3,49.7, 47.0 Pereyra [...] one friend in the city. 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
--- OUTSIDE RECORDS SUMMARY | 2022-07-09 14:27 | XMS_ITS | Encounter Summary ---
:1950 Author Organization [place] Address [address] [place] [address] Care Team Providers Name Role Phone Elyse Paredes MD Primary Care Provider Encounter Details Date Type Department Care Team Description 03/17/2017 Ambulatory - [facility] Provider, Aortic jus [facility] Heart Clinic [address] [phone] Social History Tobacco Use Types Packs/Day Years Used Date Smoking Tobacco: Never Assessed Sex Assigned at Date Recorded Not on file documented as of this encounter Plan of Treatment Not on filedocumented as of this encounter Visit Diagnoses Diagnosis Aortic stenosis Aortic valve disorders documented in this encounter Care Teams Horticulture Worker Relationship Specialty Start Date End Date Elyse Paredes MD PCP - General Family Practice 12/22/13 04/21/22 1540 [place], [place] [phone] documented as of this encounter
--- OUTSIDE RECORDS SUMMARY | 2022-07-09 14:27 | XMS_ITS | Encounter Summary ---
:1950 Author Organization [facility] Address [address] [place] [address] Care Team Providers Name Role Phone Elyse Paredes MD Primary Care Provider Encounter Details Date Type Department Care Team Description [facility]2017 [facility] [address] [phone] Social History Tobacco Use Types Packs/Day Years [...] (ABNORMAL) Lipid Profile (01/21/2017 9:15 AM CDT) [facility] Time Signature Cholesterol 150 <=199 01/21/2017 [facility] mg/dL 4:20 PM [facility] Triglycerides 136 <=149 01/21/2017 [facility] mg/dL 4:20 PM T [facility] Direct Measure HDL 45 (L) >=50 01/21/2017 [facility] mg/dL 4:20 PM T [facility] LDL Cholesterol 78 <=129 01/21/2017 [facility] Calculated mg/dL 4:20 PM CDT [facility] Patient Fasting > Yes 01/21/2017 [facility] 8hrs? 4:20 PM CDT [facility] Specimen Anatomical Collection Method Collection Time Receive d Time (Source) Location / / Volume Laterality Blood specimen 01/21/2017 9:15 AM 017 3:35 (specimen) CDT PM CDT Elyse Paredes MD LAB - BLOOD ORDERABLES Performing Organization Address City/State/[facility] Code Phon e Number [place] [address] [address] [facility] documented in this encounter Visit Diagnoses Not on filedocumented in this encounter Care Teams Forestry Laborer Relationship Specialty Start Date End Date Elyse Paredes MD PCP - General Family Practice 12/22/13 04/21/22 [address] [place] [address] documented as of this encounter
--- OUTSIDE RECORDS SUMMARY | 2022-07-09 14:28 | XMS_ITS | Encounter Summary ---
:1950 Author Organization [place] Address [address] [place] [address] Care Team Providers Name Role Phone Elyse Paredes MD Primary Care Provider Reason for Visit Reason Comments Follow Up Encounter Details Date Type Department Care Team Description 08/14/2015 Office Visit - M [facility] Vamshi Quiles c valvular stenosis; [facility] MD HLD (hyperlipidemia) [address], [address] [place] [address] [phone] Social History Tobacco Use Types Packs/Day Years [...] (280 lb 9.6 oz) 08/14/2015 2:56 PM CIRCLE BEVELER Height 157.5 cm (5' 2) 08/14/2015 2:56 PM CIRCLE BEVELER Body Mass Index 51.32 08/14/2015 2:56 PM CIRCLE BEVELER documented in this encounter Progress Notes Vamshi Quiles MD - 08/14/2015 2:56 PM CST [facility] Outpatient Follow-up evaluation. Marci Diaz is a [...] errors may unintentionally occur. Vamshi Quiles M.D. [facility] LE BEVELER documented in this encounter Plan of Treatment Not on filedocumented as of this encounter Visit Diagnoses Diagnosis Aortic valvular stenosis Aortic valve disorders HLD (hyperlipidemia) Other and unspecified hyperlipidemia documented in this encounter Care Teams Artistic Director Relationship Specialty Start Date End Date Elyse Paredes MD PCP - General Family Practice 12/22/13 04/21/22 [address] [address] documented as of this encounter
--- OUTSIDE RECORDS SUMMARY | 2022-07-09 14:28 | XMS_ITS | Encounter Summary ---
:1950 Author Organization [place] Address [address] [place] [address] Care Team Providers Name Role Phone Elyse Paredes MD Primary Care Provider Encounter Details Date Type Department Care Team Description 08/08/2015 Records - [facility] CONVERSION Provider, Karthik raya Social History Tobacco Use Types Packs/Day Years Used Date Smoking Tobacco: Never Assessed Sex Assigned at Date Recorded Not on file documented as of this encounter Plan of Treatment Not on filedocumented as of this encounter Procedures Procedure Name Priority Date/Time Associated Comments Diagnosis LAB RESULT - HIM SCAN 08/08/2015 1:27 PM CLINIC COORDINATOR GYNECOLOGIC CYTOLOGY Routine 07/24/2015 2:01 PM R esults for this CLINIC COORDINATOR procedure are i n the results section. documented in this encounter Results LAB RESULT - HIM SCAN (08/08/2015 1:27 PM CLINIC COORDINATOR) Specimen (Source) Anatomical Location Collection Method / Collectio n Time Received Time / Laterality Volume Narrative This result has an attachment that is no t available. Historical Provider [facility] LAB TESTING Gynecologic Cytology (PAP Smear) (07/24/2015 2:01 PM CLINIC COORDINATOR) Component Value Ref Test Analysis Performed At [facility] Range Method Time Signature Case Report Gynecologic Cytology Report ? Case: [id number] ? 08/08/2015 [facility] 1[facility]27 PM [facility] Authorizing Provider: ??Jimmy Paredes MD ?Ordering Provider: ?? Elyse Paredes MD ? CLINIC COORDINATOR [facility] First Screen: ? [facility] [place] ? [...] [facility] Specimen Adequacy Satisfactory for 08/08/2015 [facility] evaluation, 1:27 PM [facility] endocervical/bentley [facility] sformation zone LABORATORY component present Reflex Testing Yes if ASCUS 08/08/2015 [facility] 1:[address] [facility] High Risk? No 08/08/2015 [facility] 1:[address] [facility] LMP/Menopause Unknown 08/08/2015 [facility] Date 1:27 [address] [facility] Abnormal Bleeding No 08/08/2015 [facility] 1:[address] [facility] Patient Status N/A 08/08/2015 [facility] 1:[address] [facility] None 08/08/2015 [facility] Control/Hormones 1:27 PM [facility] Previous Normal 07/14/2010 08/08/2015 [facility] 1:[address] [facility] Previous None 08/08/2015 [facility] Abnormal? 1:[address] [facility] Cervical N/A 08/08/2015 [facility] Appearance 1:27 [address] [facility] Specimen Anatomical Collection Method Collection Time Receive d Time (Source) Location / / Volume Laterality Specimen of CERVIX UTERI 07/24/2015 2:01 PM 5 unknown material STRUCTURE / CLINIC COORDINATOR 10:08 AM CS T (specimen) Unknown Elyse GONZALEZ - JOS FOWLER Performing Organization Address City/State/ZIP Code Phon [place] [address] [address]Slime [facility] documented in this encounter Visit Diagnoses Not on filedocumented in this encounter Care Teams Blueprint Cutter Relationship Specialty Start Date End Date Reggie, Elyse Armas MD PCP - General Family Practice 12/22/13 04/21/22 [address] [place] [address] documented as of this encounter
--- OUTSIDE RECORDS SUMMARY | 2022-07-09 14:28 | XMS_ITS | Encounter Summary ---
:1950 Author Organization [place] Address [address] [place] [address]. [place] [address] Care Team Providers Name Role Phone Elyse Pardees MD Primary Care Provider Encounter Details Date Type Department Care Team Description 07/25/2015 Ambulatory - [facility], [facility] [address] [place] [address] Social History Tobacco Use Types Packs/Day Years Used Date Smoking Tobacco: Never Assessed Sex Assigned at Date Recorded Not on file documented as of this encounter Plan of Treatment Not on filedocumented as of this encounter Visit Diagnoses Diagnosis Aortic stenosis Aortic valve disorders documented in this encounter Care Teams Process Developer Relationship Specialty Start Date End Date Elyse Paredes MD PCP - General Family Practice 12/22/13 04/21/22 1540 [place] [address] documented as of this encounter
--- OUTSIDE RECORDS SUMMARY | 2022-07-09 14:28 | XMS_ITS | Encounter Summary ---
:1950 Author Organization [place] Address [address] [place] [address] Care Team Providers Name Role Phone Elyse Paredes MD Primary Care Provider Encounter Details Date Type Department Care Team Description 12/08/2013 Records - [facility], [address] [address] Social History Tobacco Use Types [...] on filedocumented in this encounter Care Teams Shed Hand Relationship Specialty Start Date End Date Elyse Paredes MD PCP - General Family Practice 12/22/13 04/21/22 [address] [place] [address] documented as of this encounter
--- OUTSIDE RECORDS SUMMARY | 2022-07-09 14:28 | XMS_ITS | Encounter Summary ---
:1950 Author Organization [place] Address [address] [place] [address] Care Team Providers Name Role Phone Elyse Paredes MD Primary Care Provider Encounter Details Date Type Department Care Team Description 03/25/2016 [facility] [address] [address] [phone] Social History Tobacco Use Types Packs/Day Years [...] (ABNORMAL) Lipid Profile (03/25/2016 10:40 AM CDT) [facility] Method Time Signature Cholesterol 124 <=199 03/25/2016 [facility] mg/dL 4:41 PM CDT [facility] Triglycerides 98 <=149 03/25/2016 [facility] mg/dL 4:41 PM T [facility] Direct Measure 49 (L) >=50 03/25/2016 [facility] HDL mg/dL 4:41 PM T [facility] LDL Cholesterol 55 <=129 03/25/2016 [facility] Calculated mg/dL 4:41 PM CDT [facility] Patient Fasting > Unknown 03/25/2016 [facility] 8hrs? 4:41 PM CDT [facility] Specimen Anatomical Collection Method Collection Time Receive d Time (Source) Location / / Volume Laterality Blood specimen 03/25/2016 10:40 6 2:33 (specimen) AM CDT PM CDT Elyse Paredes MD LAB - BLOOD ORDERABLES Performing Organization Address City/State/[facility] Code Phon e Number [place] [address] [phone] [address] [facility] documented in this encounter Visit Diagnoses Not on filedocumented in this encounter Care Teams Project Structural Engineer Relationship Specialty Start Date End Date Elyse Paredes MD PCP - General Family Practice 12/22/13 04/21/22 [address] [place] [address] documented as of this encounter
--- OUTSIDE RECORDS SUMMARY | 2022-07-09 14:28 | XMS_ITS | Encounter Summary ---
:1950 Author Organization [place] Address [address] [place] [address] Care Team Providers Name Role Phone Elyse Paredes MD Primary Care Provider Encounter Details Date Type Department Care Team Description 03/19/2014 [facility] [address] [address] [phone] Social History Tobacco Use Types Packs/Day Years [...] Results Lipid Profile (03/19/2014 8:47 AM CDT) [facility] Method Time Signature Cholesterol 155 <=199 03/19/2014 [facility] mg/dL 1:58 PM CDT [facility] Triglycerides 121 <=149 03/19/2014 [facility] mg/dL 1:58 PM T [facility] Direct Measure HDL 55 >=40 mg/dL 03/19/2014 [facility] 1:58 PM T [facility] LDL Cholesterol 76 0 - 129 03/19/2014 [facility] Calculated mg/dL 1:58 PM CDT [facility] Specimen Anatomical Collection Method Collection Time Receive d Time (Source) Location / / Volume Laterality Blood specimen 03/19/2014 8:47 AM 014 1:07 (specimen) CDT PM CDT Elyse Paredes MD LAB - BLOOD ORDERABLES Performing Organization Address City/State/ZIP Code Phon e Number [facility] [address] [address] [facility] documented in this encounter Visit Diagnoses Not on filedocumented in this encounter Care Teams Vp Ad Sales West Relationship Specialty Start Date End Date Elyse Paredes MD PCP - General Family Practice 12/22/13 04/21/22 1540 [place] [address] documented as of this encounter
--- OUTSIDE RECORDS SUMMARY | 2022-07-09 14:28 | XMS_ITS | Encounter Summary ---
:1950 Author Organization [place] Address [address] [place] [address] Care Team Providers Name Role Phone Elyse Paredes MD Primary Care Provider Encounter Details Date Type Department Care Team Description 09/04/2016 Ambulatory - [facility] Provider, Aortic jus [facility] [address] [address] Social History Tobacco Use Types Packs/Day Years Used Date Smoking Tobacco: Never Assessed Sex Assigned at Date Recorded Not on file documented as of this encounter Plan of Treatment Not on filedocumented as of this encounter Visit Diagnoses Diagnosis Aortic stenosis Aortic valve disorders documented in this encounter Care Teams Senior Web Developer Relationship Specialty Start Date End Date Elyse Paredes MD PCP - General Family Practice 12/22/13 04/21/22 1540 [place], [place] [id number] documented as of this encounter
--- OUTSIDE RECORDS SUMMARY | 2022-07-09 14:28 | XMS_ITS | Encounter Summary ---
:1950 Author Organization [place] Address [address] [place] [address]. [place] [address] Care Team Providers Name Role Phone Elyse Paredes MD Primary Care Provider Encounter Details Date Type Department Care Team Description 10/22/2016 [facility] Faith MD [address], [address] [place] [address] [phone] Social History Tobacco Use Types Packs/Day Years [...] - General Family Practice 12/22/13 04/21/22 1540 [place] [address] documented as of this encounter
--- OUTSIDE RECORDS SUMMARY | 2022-07-09 14:28 | XMS_ITS | Encounter Summary ---
:1950 Author Organization [place] Address [address] [place] [address] Care Team Providers Name Role Phone Elyse Paredes MD Primary Care Provider Encounter Details Date Type Department Care Team Description 08/09/2015 Hospital Encounter [facility] Kendrick Quiles T, Aortic stenosis [facility] [address], [address] [place] [address] [phone] Social History Tobacco Use Types Packs/Day Years [...] PM Aortic stenosis Resul ts for this ARCHEOLOGIST procedure are i n the results section . documented in this encounter Results Echocardiogram Complete (08/09/2015 3:23 PM ARCHEOLOGIST) Anatomical Region Laterality Modality Echocardiography Specimen (Source) Anatomical Collection Method Collection Time Re ceived Time Location / / Volume Laterality 08/09/2015 2:17 PM ARCHEOLOGIST Narrative This result has an attachment that is no t available. 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 Procedure Date Date: 08/09/2015 Start: 02:46 PM Study Location: [facility] Technical Quality: Adequate visualizatio n Patient Status: [...] disorders documented in this encounter Care Teams Build Master Relationship Specialty Start Date End Date Elyse Paredes MD PCP - General Family Practice 12/22/13 04/21/22 1540 [place] [address] documented as of this encounter
--- OUTSIDE RECORDS SUMMARY | 2022-07-09 14:28 | XMS_ITS | Encounter Summary ---
:1950 Author Organization [place] Address [address] [place] [address] Care Team Providers Name Role Phone Elyse Paredes MD Primary Care Provider Encounter Details Date Type Department Care Team Description 01/09/2014 [facility], Left renal mass [facility] Ultrasound [address], [address] [place] [address] [phone] Social History Tobacco Use Types Packs/Day Years [...] r documented in this encounter Care Teams Cuff Setter Relationship Specialty Start Date End Date Elyse Paredes MD PCP - General Family Practice 12/22/13 04/21/22 [address] [address] documented as of this encounter
--- OUTSIDE RECORDS SUMMARY | 2022-07-09 14:28 | XMS_ITS | Encounter Summary ---
:1950 Author Organization [place] Address [address] [place] [address] Care Team Providers Name Role Phone Elyse Paredes MD Primary Care Provider Reason for Visit Reason Comments Patient Request Encounter Details Date Type Department Care Team Description 07/24/2015 Communication - M [facility] Provider, Patient Request [address] [place] [address] Social History Tobacco Use Types Packs/Day Years Used Date Smoking Tobacco: Never Assessed Sex Assigned at Date Recorded Not on file documented as of this encounter Plan of Treatment Not on filedocumented as of this encounter Visit Diagnoses Not on filedocumented in this encounter Care Teams Adjuster And Inspector Relationship Specialty Start Date End Date Elyse Paredes MD PCP - General Family Practice 12/22/13 04/21/22 1540 [place] [address] documented as of this encounter
--- OUTSIDE RECORDS SUMMARY | 2022-07-09 14:28 | XMS_ITS | Encounter Summary ---
:1950 Author Organization [place] Address [address] [place] [address] Care Team Providers Name Role Phone Dagmar [...] on filedocumented in this encounter Care Teams Associate Professor Of Music Relationship Specialty Start Date End Date Elyse Paredes MD PCP - General Family Practice 12/22/13 04/21/22 1540 [place] [address] Dagmar Kang MD Assigned Heart and 02/14/21 02/27/[address], Vascular Provider [address] [place] [address] documented as of this encounter
--- OUTSIDE RECORDS SUMMARY | 2022-07-09 14:28 | XMS_ITS | Encounter Summary ---
:1950 Author Organization [place] Address [address] [place] [address] Care Team Providers Name Role Phone Elyse Paredes MD Primary Care Provider Encounter Details Date Type Department Care Team Description 01/07/2010 Records - [facility] Martin Goodman MD [facility] [address] [facility] [address] [place] [address] [place] [address] [phone] Social History Tobacco Use Types Packs/Day Years [...] A1C 7.5 (H) 4.2 - 6.1 01/08/[address] [facility] 9:11 AM CDT [facility] Specimen Anatomical Collection Method Collection Time Receive d Time (Source) Location / / Volume Laterality 01/08/2010 6:34 AM 0 4:00 CDT AM CDT Martin Rodriguez MD LAB - BLOOD ORDERABLES Performing Organization Address City/State/ZIP Code Phon [place] [address] [phone] [facility] [address] [facility] documented in this encounter Visit Diagnoses Not on filedocumented in this encounter Care Teams Building Inspector Relationship Specialty Start Date End Date Elyse Paredes MD PCP - General Family Practice 12/22/13 04/21/22 [address] [place] [address] documented as of this encounter
--- OUTSIDE RECORDS SUMMARY | 2022-07-09 14:28 | XMS_ITS | Encounter Summary ---
:1950 Author Organization [place] Address [address] [place] [address] Care Team Providers Name Role Phone Elyse Paredes MD Primary Care Provider Encounter Details Date Type Department Care Team Description 03/18/2015 [facility] [address] [place] [address] [phone] Social History Tobacco Use Types Packs/Day Years [...] Results Lipid Profile (03/18/2015 9:45 AM CDT) [facility] Method Time Signature Cholesterol 144 <=199 03/18/2015 [facility] mg/dL 4:33 PM CDT [facility] Triglycerides 131 <=149 03/18/2015 [facility] mg/dL 4:33 PM T [facility] Direct Measure HDL 53 >=40 mg/dL 03/18/2015 [facility] 4:33 PM T [facility] LDL Cholesterol 65 0 - 129 03/18/2015 [facility] Calculated mg/dL 4:33 PM CDT [facility] Patient Fasting > Yes 03/18/2015 [facility] 8hrs? 4:33 PM CDT [facility] Specimen Anatomical Collection Method Collection Time Receive d Time (Source) Location / / Volume Laterality Blood specimen 03/18/2015 9:45 AM 015 3:34 (specimen) CDT PM CDT Elyse Paredes MD LAB - BLOOD ORDERABLES Performing Organization Address City/State/ZIP Code Phon [place] [address] [address] [facility] documented in this encounter Visit Diagnoses Not on filedocumented in this encounter Care Teams Broker Relationship Specialty Start Date End Date Elyse Paredes MD PCP - General Family Practice 12/22/13 04/21/22 1540 [place] [address] documented as of this encounter
--- OUTSIDE RECORDS SUMMARY | 2022-07-09 14:28 | XMS_ITS | Encounter Summary ---
:1950 Author Organization [place] Address [address] [place] [address] Care Team Providers Name Role Phone Elyse Paredes MD Primary Care Provider Encounter Details Date Type Department Care Team Description 07/30/2015 [facility] Provider, [address] [address] Social History Tobacco Use Types Packs/Day Years Used Date Smoking Tobacco: Never Assessed Sex Assigned at Date Recorded Not on file documented as of this encounter Plan of Treatment Not on filedocumented as of this encounter Visit Diagnoses Not on filedocumented in this encounter Care Teams Cosmetic Consultant Relationship Specialty Start Date End Date Elyse Paredes MD PCP - General Family Practice 12/22/13 04/21/22 1540 [place] [address] documented as of this encounter
--- OUTSIDE RECORDS SUMMARY | 2022-07-09 14:30 | XMS_ITS | Encounter Summary ---
:1950 Author Organization [facility] Address [address] [place] [address] Care Team Providers Name Role Phone Elyse Paredes MD Primary Care Provider Encounter Details Date Type Department Care Team Description 02/19/2022 Refill Order [facility] 401 Freya Zaragoza MD End[facility] [address] 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 Pt would like Dr Zaragoza to know Thank you verymuch for the care and you are a great Doctor! ENT Tarah Delaney CMA - 03/20/2022 2:52 PM CDT Patient overdue for f/u appointment. Labs ordered. CA, please call to schedule. Close encounter whencomplete. Tarah Delaney CMA 03/06/2022, 2:53 PM Interface, Out [employer] Query - 02/19/2022 6:14 AM CDT ORDER [...] SCHEDULED VISIT: None - NEXT LAB APPOINTMENT: [facility] Embedded Refills, Reference: [id number], 02/19/2022 6:14:51 AM CDT, Pool: ENDO REFILL RN ([id number]) documented in this encounter Plan of Treatment Upcoming Encounters Date Type Specialty Care Team Description 08/13/2022 Appointment Radiology Denise Aguirre, VOCATIONAL PSYCHOLOGIST, LIGHTER [address] [place], [place] [address] (Wo rk) 08/13/2022 Appointment Hematology and Oncology Denise Aguirre, VOCATIONAL PSYCHOLOGIST, LIGHTER [address] [place], [place] [address] (Wo rk) documented as [...] medications documented in this encounter Care Teams Library Technician Relationship Specialty Start Date End Date Elyse Paredes MD PCP - General Family Practice 03/19/17 [address] [place] [address] documented as of this encounter
--- OUTSIDE RECORDS SUMMARY | 2022-07-09 14:30 | XMS_ITS | Clinical Summary ---
:1950 Author Organization [facility] Address [address] [place] [address] Care Team Providers Name Role Phone lEyse Paredes MD Primary Care Provider Source Comments [...] for each transition of care or referral. [employer] Allergies Active Allergy Reactions Severity Noted Date Comments Erythromycin Rash 04/04/2011 Lisinopril Other, see comments 06/17/2017 Dry coug h Metformin Other, see comments, Nausea And Vomiting 06/17/2017 diarrhea Medications Medication Sig Dispensed Refills Start Date End Date Status famotidine (PEPCID) Take 10 mg by mouth 0 Active 10 MG daily as needed. tabletIndications: Uncontrolled diabetes mellitus type 2 without complications, unspecified truck terminal manager insulin use status aspirin, Take 1 Tab [...] for 1 Device 0 10/17/19 20 Active Zoo Keeper (DEXCOM G6 continuous glucose PHLEBOTOMY TECHNICIAN) monitoring. DEVIIndications: Uncontrolled type 2 diabetes mellitus, [...] Stage IA (pT1c, pN0(sn), cM0, G2, ER+, MS+, HER2-, Oncotype DX score: 10) - Signed by Deloris Trujillo MD on 10/27/2018 Overview: Added automatically from request for sailaja jackson [id number] Coronary artery disease involving coquille coronary maurice ry of coquille heart 08/09/2018 without angina pectoris Diabetes Education [...] IIV3 (Trivalent) Fluzone 05/21/2017 Highdose, 65+ Yrs (11755) Influenza, Unspecified Formulation 05/21/2017 Moderna (Spikevax) COVID-19, [...] Description 08/13/2022 Appointment Radiology Denise Aguirre APRN, OR SCRUB TECH [address] [place], [place] [address] (Wo rk) 08/13/2022 Appointment Hematology and Oncology Denise Aguirre APRN, OR SCRUB TECH [address] [place], [place] [address] (Wo rk) Health Maintenance [...] Phone Address Typ e / Group Dates [facility] MEDICARE [id number] 2021-Pres [phone] [address] Medicare ADVANTAGE ent [phone] [place] [address] Care Teams Chief Catalyst Operator Relationship Specialty Start Date End Date Elyse Paredes MD PCP - General Family Practice 03/19/17 [address] [place], [place] [id number]
--- OUTSIDE RECORDS SUMMARY | 2022-07-09 14:30 | XMS_ITS | Continuity of Care Document ---
:1950 Author Organization [facility] Address [address] [address] [place] [address] Phone Care Team Providers Name Role Phone [...] No Information Kalyn CLEMENTS [facility] 0 [facility], Center 0 . [address] [address], [address] [facility] [place], [place], [place], [address], [id number], [place], tel:+ [phone] , [place]. tel: [phone] [facility] No Information Sep- Kalyn CLEMENTS Refe [facility] 0 [place] Provider: [facility], 0 . [address] [place], [address], [address] [facility] [place], [place], [place], [address], [address] [id number], [place], [place], [place], [address]. tel:+ [phone] tel:[phone] , [place]. [id number] tel:+ [phone] [facility] History of colon Nov-2 Bruce CLEMENTS [facility] polyps . [facility], 9 [address] [facility] [address], [address] [facility] [place], [place], [place], [address], [id number], [place], tel: [phone] , [place]. tel: [phone] [facility] No Information Jun-2 Bruce CLEMENTS Refer [facility] . Provider: [employer] [place], [address] [place], [address], [address] [facility] [place], [place], [place], [address], [address] [id number], [place], [place], [place], [address]. tel:+ [phone] tel:[phone] , [place]. [id number] tel:+ [phone] MAULIK Coleman No Information Apr- Clarkeng [facility], Endoscopy [address] [address], [address] [facility] [address] s, [place], [place], [place] [id number], 500, [place] tel:+ [place], [place], [phone] , [place]. tel:+ [phone] [facility]osh [facility] Polyp-intes/rect/st Oct-0 Dagmar CLEMENTS R efannaing [facility] BehColon 2-[address] Noah. Prov ider: [facility], Center Cancer 4 [address] [facility] [place], [address], [address] [place] Colon[place]emorrhoids [place], [place] [facility] [place], [place], NosHemorrhoids [address], [address], [address] [id number], NosDiverticulosis [place], [place], [address]. tel: [phone] tel:[phone] , [place]. [id number] tel: [phone] [facility] [place] Polyp-intes/rect/st May- Giancarlo CLEMENTS Referring Digestive [facility] om[facility] BehDigestive 7-[address] Fitz. Pr ovider: [facility], Endoscopy Neoplasm 8 [address] [facility] [place], [address], [address] [place] PolypsDiverticulosi [place], [place] R andolph [place], [place], s Of Colon [address], [address] [id number], [place], [place], [address]. tel: [phone] tel:[phone] , [place]. [id number] tel: [phone] [facility] No Information Jul- Giancarlo CLEMENTS Refer ring Digestive [facility] 0-[address] Fitz. Provider: [facility], Endoscopy 4 3001 [facility] [place], [address], [address] [place], [place], [place], [address], [address], [address] [id number], [place], [place], [place], [address]. tel: [phone] tel:[phone] , [place]. [id number] tel: [phone] Family History Family Member Type Diagnosis Age [...] Other Registry tetanus toxoid, reduced administered Note: [place] IC bi-directional diphtheria toxoid, and acellular interface [...] toxoid) Payers Payer name Insurance type Covered republican ID Authorization(s ) No Information Social History [...]
--- OUTSIDE RECORDS SUMMARY | 2022-07-09 14:30 | XMS_ITS | Clinical Summary ---
:1950 Author Organization [employer] [place] [address] Care Team Providers Name Role Phone Elyse [...] nasal mask x1/3month with nasal cushion x2/mo; [id number], Frequency of use=daily Active Problems Not on [...] Effective Dates Phone Addre ss Type Group [facility] MR [id number] 2022-Present [address] [address] [place] [address] Care Teams Straight Truck Driver Relationship Specialty Start Date End Date Elyse Paredes MD PCP - General 11/10/07
--- OUTSIDE RECORDS SUMMARY | 2022-07-09 14:30 | XMS_ITS | Encounter Summary ---
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 Pt would like Dr Zaragoza to know Thank you verymuch for the care and you are a great Doctor! Please route to: (HP) Care Team Pool/ (PN) Clinician Raffy Garcia RN - 02/20/2022 2:54 PM CDT Further Assistance Needed on Refill from Relay Operator Patient is overdue for Office visit. Please call patient to schedule a Office/Video Visit and document using .ADRIANA. After attemptingto schedule patient: If appointment scheduled: Please route to: Refill Wizard Admin- giovanny ([id number]) If unable to schedule appointment: Please route [...] 10/06/2019 Heart Rate: 81 bpm on 10/06/2019 [email or web address] Embedded Refills, Reference: [id number], 02/19/2022 6:14:51 AM CDT, Pool: ENDO REFILL RN ([id number]) documented in this encounter Plan of Treatment Upcoming Encounters Date Type Specialty Care Team Description 08/13/2022 Appointment Radiology Denise Aguirre APRN, REAL ESTATE INSTRUCTOR [address] [place], [place] [address] (Wo rk) 08/13/2022 Appointment Hematology and Oncology Denise Aguirre APRN, REAL ESTATE INSTRUCTOR [address] [place], [place] [address] (Wo rk) documented as [...] (HRC) documented in this encounter Care Teams Brand Representative Relationship Specialty Start Date End Date Elyse Paredes MD PCP - General Family Practice 03/19/17 [address] [place] [address] documented as of this encounter
--- OUTSIDE RECORDS SUMMARY | 2022-07-09 14:31 | XMS_ITS | Encounter Summary ---
:1950 Author Organization [facility] Address [address] [place] [address] Care Team Providers Name Role Phone Elyse Paredes MD Primary Care Provider Reason for Visit Reason Comments ASSESSMENT OF ADHERENCE/COMPLIANCE Encounter Details Date Type Department Care Team Description 03/17/2021 Phone Visit [facility] Kanika Donahue, Dyslipidemia, goal LDL below 100 (Primary Dx); MTM PharmD Coronary artery disease involving modoc coronary artery of modoc heart without angina pectoris; [address] [place] Uncontrolled type 2 diabetes mellitus with hyperosmolarity without coma, with long-term current use of insulin (HRC); [place], [place] AV Essential hypertension [address] [place], [place] [phone] [address] Social History Tobacco Use Types Packs/Day [...] rec???d pt discuss rosuvastatin dose increase with mechanic foreman. Pt denies med questions or concerns. She reports she just recently moved back to her hometown of [place], [place]. Plans to keep her current healthcare [...] denies blisters, sores. Checks daily. 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. Pt reports chlorthalidone was stopped by her senior category manager. Pt reports trace LE edema occasionally which pt relates to sodium in diet. She states since surgery she has had CASTRO. Pt states she used to take rosuvastatin [...] 1.8 (H) 12/21/2019 HGBA1C 7.3 (H) 02/26/2021 [id number] 8.2 (H) 08/09/2018 UMACR 7 02/26/2021 CHOL [...] Pharmacist in 1 year, prn sooner. Updated [facility] med list and reviewed medications including indications [...] Team Description 08/13/2022 Appointment Radiology Denise Aguirre, HEALTHCARE REPRESENTATIVE, HOD CARRIER [address] [place], [place] [address] (Wo rk) 08/13/2022 Appointment Hematology and Oncology Denise Aguirre, HEALTHCARE REPRESENTATIVE, HOD CARRIER [address] [place], [place] [address] (Wo rk) documented as [...] and unspecified hyperlipidemia Coronary artery disease involving modoc coronary artery of modoc heart without angina pectoris (HRC) Uncontrolled type 2 diabetes mellitus wi th hyperosmolarity without coma, with long-term current use of insulin (HRC) Essential hypertension (HRC) Unspecified essential hypertension documented in this encounter Care Teams Technical Publications Writer Relationship Specialty Start Date End Date Elyse Paredes MD PCP - General Family Practice 03/19/17 [address] [place] [address] documented as of this encounter
--- OUTSIDE RECORDS SUMMARY | 2022-07-09 14:31 | XMS_ITS | Encounter Summary ---
:1950 Author Organization [employer] Address [address] [place] [address] Care Team Providers Name Role Phone Elyse [...] with long-term current use of insulin (HRC); [place] [address] [place], [place] Encounter for long-term (cur rent) use of medications; [phone] Coronary artery disease involving [place] coronary artery of [place] heart without angina pectoris Social History Tobacco [...] return visit. ?? Video visit Clinician location: [facility] endocrinology health specialty clinic [facility] Patient location: home Total visit time 30 [...] Description 08/13/2022 Appointment Radiology Denise Aguirre APRN, RELIEF PHARMACIST [address] [place], [place] [address] (Wo rk) 08/13/2022 Appointment Hematology and Oncology Denise Aguirre APRN, RELIEF PHARMACIST [address] [place], [place] [address] (Wo rk) documented as [...] athologist Signature LDL, Direct 60 <=130 02/26/2021 [facility] mg/dL 4:41 PM CDT CENTRAL LAB Specimen Anatomical Collection Method / Collection Time Recei gil Time (Source) Location / Volume Laterality Blood Venipuncture / 02/26/2021 1:09 02/26/2021 1:09 Unknown PM CDT PM CDT Juan Cho MD LAB_1 Performing Organization Address [facility] Phon e Number [facility] CENTRAL LAB [address] [address] Microalb / Creat Ratio (02/26/2021 1:09 PM CDT) [facility] gist Method Time Signature Albumin, 7.3 mg/L 02/26/2021 [facility] Urine, Random 5:09 PM CDT CENTRAL LAB Creatinine, 100 >20 mg/dL 02/26/2021 [facility] Urine, Random 5:09 PM CDT CENTRAL LAB Albumin/Creati 7 <30 mg/g 02/26/2021 [facility] nine Ratio, 5:09 PM CDT CENTRAL LAB Urine, Random Specimen Anatomical Collection Method Collection Time Receive d Time (Source) Location / / Volume Laterality Urine Non-blood 02/26/2021 1:09 PM 1:09 Collection / CDT PM CDT Unknown Juan Cho MD LAB_1 Performing Organization Address [facility]on [facility] [address] [address] ALT (SGPT) (02/26/2021 1:09 PM CDT) athologist Signature ALT (SGPT) 20 0 - 55 U/L 02/26/2021 [facility] 4:41 PM CDT CENTRAL LAB Specimen Anatomical Collection Method / Collection Time Recei gil Time (Source) Location / Volume Laterality Blood Venipuncture / 02/26/2021 1:09 02/26/2021 1:09 Unknown PM CDT PM CDT Juan Cho MD LAB_1 Performing Organization Address [facility] Phon e Number [facility] CENTRAL LAB [address] [address] Hgb (02/26/2021 1:09 PM CDT) P athologist Signature Hemoglobin 13.0 12.0 - 15.5 02/26/2021 [facility] g/dL 1:21 PM CDT [facility]ENTER [facility] Specimen Anatomical Collection Method / Collection Time Recei gil Time (Source) Location / Volume Laterality Blood Venipuncture / 02/26/2021 1:09 02/26/2021 1:09 Unknown PM CDT PM CDT Juan Cho MD LAB_1 Performing Organization Address [facility] Code Phon e Number [facility] [address] [place] [address] (ABNORMAL) HgbA1c (02/26/2021 1:09 PM CDT) Patholo gist Method Time Signature Hemoglobin A1C 7.3 (H) <=5.6 % 02/26/[address] [facility] 4:46 PM CDT C[facility]AL LAB Specimen Anatomical Collection Method / Collection Time Recei gil Time (Source) Location / Volume Laterality Blood Venipuncture / 02/26/2021 1:09 02/26/2021 1:09 Unknown PM CDT PM CDT Narrative [facility] CENTRAL LAB - 02/26/2021 4:46 PM CDT For patients not previously diagnosed with diabetes: 5.7-6.4%: Increased risk for diabetes 6.5% and greater: Diagnostic for diabete s For patients diagnosed with diabetes: <8.0%: Goal of therapy for ages 18-75 Clinicians may recommend a higher or low er goal for specific individuals. Juan Cho MD LAB_1 Performing Organization Address [facility] Phon e Number [facility] CENTRAL LAB [address] [address] documented in this encounter Visit Diagnoses Diagnosis Obesity, unspecified classification, uns pecified obesity type, unspecified whether serious comorbidity present (HRC) - Prim sheela Essential hypertension (HRC) Unspecified essential hypertension Controlled type 2 diabetes mellitus with out complication, with long-term current use of insulin (HRC) Encounter for long-term (current) use of medications Encounter for long-term (current) use of other medications Coronary artery disease involving [place] coronary artery of [place] heart without angina pectoris (HRC) documented in this encounter Care Teams Shift Manager Relationship Specialty Start Date End Date Elyse Paredes MD PCP - General [facility] Practice 03/19/17 [address] [place] [address] documented as of this encounter
--- OUTSIDE RECORDS SUMMARY | 2022-07-09 14:31 | XMS_ITS | Encounter Summary ---
:1950 Author Organization [employer] Address [address] [place] [address] Care Team Providers Name Role Phone Elyse [...] [address] Coronary artery disease involving cherokee coronary artery of cherokee heart without angina pectoris; [place] [address] [place], [place] Essential hypertension; [phone] Encounter for long-term (current) use of medications; [phone] Obesity, unspec ified obesity severity, unspecified obesity [...] over 10 0 in then moving to [facility] wear sugar up. This moves been stressful [...] in 3-6 months. Video visit Clinician location: [facility] endocrinology [facility] specialty clinic [facility] Patient location: home Total visit time [...] Description 08/13/2022 Appointment Radiology Denise Aguirre, BUSINESS SCHOOL DEAN, BOOK COVERER [address] [place], [place] [address] (Wo rk) 08/13/2022 Appointment Hematology and Oncology Denise Aguirre APRN, BOOK COVERER [address] [place], [place] [address] (Wo rk) Scheduled Orders [...] comorbidity present (HRC) Coronary artery disease involving cherokee coronary artery of cherokee heart without angina pectoris (HRC) Essential hypertension (HRC) Unspecified essential hypertension Encounter for long-term (current) use of medications Encounter for long-term (current) use of other medications documented in this encounter Care Teams Machine Iii Coremaker Relationship Specialty Start Date End Date Elyse Paredes MD PCP - General [facility] Practice 03/19/17 [address] [place] [address] documented as of this encounter
--- OUTSIDE RECORDS SUMMARY | 2022-07-09 14:31 | XMS_ITS | Encounter Summary ---
:1950 Author Organization [employer] Address [address], [place] [address] Care Team Providers Name Role Phone Elyse Paredes MD Primary Care Provider Encounter Details Date Type Department Care Team Description 02/26/2021 Lab Visit Specialty Center Obesity, unspecified classification, unspecified obesity type, unspecified whether serious comorbidity present; Laboratory Stage 3a chronic kidney dise ase (HRC); [address] [place] [address] Social History Tobacco Use Types Packs/Day Years Used Date Smoking Tobacco: Former Cigarettes Quit : 08/02/1981 Smokeless Tobacco: Never Alcohol Use Standard Drinks/Week Comments No 0 (1 standard drink = 0.6 oz pure alcoho l) Sex Assigned at Date Recorded Not on file documented as of this encounter Progress Notes Kirk Pino RN - 02/26/2021 1:00 PM CDT 01/22/21 [facility] states: Return in about 3 months (around [...] ...... Kirk Pino RN 02/27/2021, 9:01 AM Prasanna Rivera [...] Description 08/13/2022 Appointment Radiology Denise Aguirre APRN, ASSEMBLER [employer] [employer] [address] [place], [place] [address] (Wo rk) 08/13/2022 Appointment Hematology and Oncology Denise Aguirre APRN, ASSEMBLER [employer] [address] [place], [place] [address] (Wo rk) documented as [...] Organization Address City/State/ZIP Code Phon e Number [facility] [address] [address] (ABNORMAL) Basic Metabolic Panel (02/26/2021 1:09 PM CDT) Patholo gist Method Time Signature Sodium 138 136 - 145 02/26/2021 [facility] mmol/L 4:53 PM CDT CENTRAL LAB Potassium 4.6 3.5 - 5.1 02/26/2021 [facility] mmol/L 4:53 PM CDT CENTRAL LAB Chloride 106 98 - 109 02/26/2021 [facility] mmol/L 4:53 PM CDT CENTRAL LAB CO2 24 20 - 29 02/26/2021 [facility] mmol/L 4:53 PM CDT CENTRAL LAB Anion Gap 8 7 - 16 02/26/2021 [facility] mmol/L 4:53 PM CDT CENTRAL LAB Calcium 9.5 8.4 - 02/26/2021 [facility] 10.4 4:53 PM CDT CENTRAL LAB mg/dL BUN 18 7 - 26 02/26/2021 [facility] mg/dL 4:53 PM CDT CENTRAL LAB Creatinine 1.22 (H) 0.55 - 02/26/2021 [facility] 1.02 4:53 PM CDT CENTRAL LAB mg/dL GFR, Estimated 46 (L) >60 02/26/2021 [facility] mL/min/1. 4:53 PM CDT CENTRAL LAB 73m2 Glucose 162 (H) 70 - 100 02/26/2021 [facility] mg/dL 4:53 PM CDT CENTRAL LAB Comment: [...] 1:09 Unknown PM CDT PM CDT Narrative [facility] - 02/26/2021 4:53 PM CDT The National Kidney Disease Education Pr ogram suggests measuring Cystatin C in patients with eGFRcrea of 45 to 59 ml/mi n/1.73^2 who do not have other markers of kidney damage (i.e. elevated urine Album in/Creatinine Ratio or a prior Cystatin C confirming the presence of chronic kidne y disease). Prasanna Rivera MD LAB_1 Performing Organization Address [facility] Phon e Number [facility] [address] [phone] LABORATORY LDL Direct (02/26/2021 1:09 PM CDT) athologist Signature LDL, Direct 60 <=130 02/26/2021 [facility] mg/dL 4:41 PM CDT CENTRAL LAB Specimen Anatomical Collection Method / Collection Time Recei gil Time (Source) Location / Volume Laterality Blood Venipuncture / 02/26/2021 1:09 02/26/2021 1:09 Unknown PM CDT PM CDT Juan Cho MD LAB_1 Performing Organization Address City/[facility] Phon e Number [facility] [address] [address] Microalb / Creat Ratio (02/26/2021 1:09 PM CDT) Patholo gist Method Time Signature Albumin, 7.3 mg/L 02/26/2021 [facility] Urine, Random 5:09 PM CDT CENTRAL LAB Creatinine, 100 >20 mg/dL 02/26/2021 [facility] Urine, Random 5:09 PM CDT CENTRAL LAB Albumin/Creati 7 <30 mg/g 02/26/2021 [facility] nine Ratio, 5:09 PM CDT CENTRAL LAB Urine, Random Specimen Anatomical Collection Method Collection Time Receive d Time (Source) Location / / Volume Laterality Urine Non-blood 02/26/2021 1:09 PM 1:09 Collection / CDT PM CDT Unknown Juan Cho MD LAB_1 Performing Organization Address [facility]/ZIP Code Phon e Number [facility] CENTRAL LAB [address] [address] ALT (SGPT) (02/26/2021 1:09 PM CDT) athologist Signature ALT (SGPT) 20 0 - 55 U/L 02/26/2021 [facility] 4:41 PM CDT CENTRAL LAB Specimen Anatomical Collection Method / Collection Time Recei gil Time (Source) Location / Volume Laterality Blood Venipuncture / 02/26/2021 1:09 02/26/2021 1:09 Unknown PM CDT PM CDT Juan Cho MD LAB_1 Performing Organization Address City/[facility]/ZIP Code Phon e Number [facility] CENTRAL LAB [address] [address] Hgb (02/26/2021 1:09 PM CDT) athologist Signature Hemoglobin 13.0 12.0 - 15.5 02/26/2021 [facility] g/dL 1:21 PM CDT CENTER LABORATORY Specimen Anatomical Collection Method / Collection Time Recei gil Time (Source) Location / Volume Laterality Blood Venipuncture / 02/26/2021 1:09 02/26/2021 1:09 Unknown PM CDT PM CDT Juan Cho MD LAB_1 Performing Organization Address City/[facility]/ZIP Code Phon e Number [facility] LABORATORY [address] [place] [address] (ABNORMAL) HgbA1c (02/26/2021 1:09 PM CDT) [facility] gist Method Time Signature Hemoglobin A1C 7.3 (H) <=5.6 % 02/26/2021 [facility] 4:46 PM CDT CENTRAL LAB Specimen Anatomical Collection Method / Collection Time Recei gil Time (Source) Location / Volume Laterality Blood Venipuncture / 02/26/2021 1:09 02/26/2021 1:09 Unknown PM CDT PM CDT Narrative [facility] - 02/26/2021 4:46 PM CDT For patients not previously diagnosed with diabetes: 5.7-6.4%: Increased risk for diabetes 6.5% and greater: Diagnostic for diabete s For patients diagnosed with diabetes: <8.0%: Goal of therapy for ages 18-75 Clinicians may recommend a higher or low er goal for specific individuals. Juan Cho MD LAB_1 Performing Organization Address City/State/ZIP Code Phon e Number [facility] [address] [id number] documented in this encounter Visit Diagnoses Diagnosis Obesity, unspecified classification, uns pecified obesity type, unspecified whether serious comorbidity present (HRC) Stage 3a chronic kidney disease (HRC) Hyperuricemia Other abnormal blood chemistry documented in this encounter Care Teams Drug Safety Physician Relationship Specialty Start Date End Date Elyse Paredes MD PCP - General Family Practice 03/19/17 [address] [place] [address] documented as of this encounter
--- OUTSIDE RECORDS SUMMARY | 2022-07-09 14:31 | XMS_ITS | Encounter Summary ---
:1950 Author Organization [employer] Address [address] [place] [address] Care Team Providers Name Role Phone Elyse Paredes MD Primary Care Provider Encounter Details Date Type Department Care Team Description 01/20/2021 Lab Visit Specialty Center Coronary artery disease involving ute mountain coronary artery of ute mountain heart without angina pectoris; Laboratory Stage 3a chronic kidney dise ase (HRC); [address] Essential hypertension [place] [id number] Social History Tobacco Use Types Packs/Day Years [...] Description 08/13/2022 Appointment Radiology Denise Aguirre, GRIFFIN, LANGUAGE SPECIALIST [address] [place], [place] [address] (Wo rk) 08/13/2022 Appointment Hematology and Oncology Denise Aguirre, GRIFFIN, LANGUAGE SPECIALIST [address] [place], [place] [address] (Wo rk) documented [...] CDT disease involving procedure are in NEEDED) ute mountain coronary the results artery of ute mountain section. heart without angina pectoris documented in this encounter Results Microalbumin/Creatinine Ratio (01/20/2021 12:21 PM CDT) [facility] Method Time Signature Albumin, 30.5 mg/L 01/20/2021 [...] Prasanna Rivera MD LAB_1 Performing Organization Address City/[facility] Code Phon e Number [facility] [address] [address] Lipid Panel and Direct LDL(If Needed) (01/20/2021 11:56 AM CDT) [facility] Method Time Signature Cholesterol 118 0 - 199 01/20/2021 [facility] mg/dL 4:08 PM CDT CENTRAL LAB Triglyceride 141 <=149 01/20/2021 [facility] mg/dL 4:08 PM CDT CENTRAL LAB HDL Cholesterol 44 >=40 01/20/2021 [facility] mg/dL 4:08 PM CDT CENTRAL LAB LDL, Calculated 46 <130 01/20/2021 [facility] mg/dL 4:08 PM CDT CENTRAL LAB Non HDL Chol, 74 <=159 01/20/2021 [facility] Calculated mg/dL 4:08 PM CDT CENTRAL LAB Cholesterol/HDL 2.7 01/20/2021 [facility] Ratio 4:08 PM CDT C[facility]AL LAB Hours Fasting 12 01/20/2021 [facility] 4:08 PM CDT CENTER LABORATORY Specimen Anatomical Collection Method / Collection Time Recei gil Time (Source) Location / Volume Laterality Blood Venipuncture / 01/20/2021 11:56 Unknown AM CDT 11:56 AM CDT Eylse Paredes MD LAB_1 Performing Organization Address City/State/ZIP Code Phon e Number [facility] [address] [address] [facility] [address] [place] [address] LABORATORY documented in this encounter Visit Diagnoses Diagnosis Coronary artery disease involving ute mountain coronary artery of ute mountain heart without angina pectoris (HRC) Stage 3a chronic kidney disease (HRC) Essential hypertension (HRC) Unspecified essential hypertension documented in this encounter Care Teams Sheet Rock Layer Relationship Specialty Start Date End Date Elyse Paredes MD PCP - General [facility] 03/19/17 [address] [place] [address] documented as of this encounter
--- OUTSIDE RECORDS SUMMARY | 2022-07-09 14:31 | XMS_ITS | Encounter Summary ---
:1950 Author Organization [employer] Address [address] [place] [address] Care Team Providers Name Role Phone Elyse Paredes MD Primary Care Provider Reason for Visit Reason Comments Refill B-D UF III MINI PEN NEEDLES 31G X 5 MM needle [Pharmacy Med Name: B-D PEN NDL MINI [id number](10/15)PRPL] Encounter Details Date Type Department Care Team Description 11/16/2020 Refill Specialty Center [address], Refill (B-D UF III MINI Endocrinology Clinic PEN NEEDLES 31G X [address] needle [[place] [address] [place], [place] Name: B-D PEN NDL MINI [phone] [id number](10/15)PRPL]) [phone] (Wo rk) Social History Tobacco Use Types [...] [Pharmacy Med Name: B-D PEN NDL MINI [id number](10/15)PRPL] Endocrinology: Diabetes Non-DME Supplies -> Unable to [...] 11, Si-5 times daily. (changed) Powered by [employer], Reference: [id number], 11/16/2020 2:47:40 PM CDT, Pool: MARY YANEZ RN ([id number]) documented in this encounter Plan of Treatment Upcoming Encounters Date Type Specialty Care Team Description 08/13/2022 Appointment Radiology Denise Aguirre, LOT WORKER, ANY COMMODITY SALES DELIVERER [address] [place] [address] (Wo rk) 08/13/2022 Appointment Hematology and Oncology Denise Augirre, LOT WORKER, ANY COMMODITY SALES DELIVERER [address] [place], [place] [address] (Wo rk) documented as [...] insulin documented in this encounter Care Teams Carbide Die Maker Relationship Specialty Start Date End Date Elyse Paredes MD PCP - General Family Practice 03/19/17 [address] [place] [address] documented as of this encounter
--- OUTSIDE RECORDS SUMMARY | 2022-07-09 14:31 | XMS_ITS | Encounter Summary ---
:1950 Author Organization [employer] Address [address] [place] [address] Care Team Providers Name Role Phone Elyse Paredes MD Primary Care Provider Reason for Visit Reason Onset Date Comments Refill 05/30/2021 DEXCOM G6 TRANSMITTE R Encounter Details Date Type Department Care Team Description 05/30/2021 Refill Specialty Center [address], Refill (DEXCOM G6 Endocrinology Clinic MD TRANSMITTER ) [address] [place] [address] [place], [place] [phone] (Wo rk) Social History Tobacco Use Types [...] Continuous Blood Gluc Transmit (DEXCOM G6 TRANSMITTER) [facility] Diabetes - Testing Supplies -> Unable to [...] 10 days (changed) Age: 71 Powered by [employer] by [employer], Reference: [id number], 05/30/2021 12:44:33 PM CDT, Carlos: MILA IYER TEAM ([id number]) CTOR SKILLS documented in this encounter Plan of Treatment Upcoming Encounters Date Type Specialty Care Team Description 08/13/2022 Appointment Radiology Denise Aguirre, GRIFFIN, HAND SPRAY OPERATOR [address] [place], [place] [address] (Wo rk) 08/13/2022 Appointment Hematology and Oncology Denise Aguirre APRN, HAND SPRAY OPERATOR [address] [place], [place] [address] (Wo rk) documented [...] (HRC) documented in this encounter Care Teams Director Cardiology Relationship Specialty Start Date End Date Elyse Paredes MD PCP - General Family Practice 03/19/17 [address] [place] [address] documented as of this encounter
--- OUTSIDE RECORDS SUMMARY | 2022-07-09 14:31 | XMS_ITS | Encounter Summary ---
:1950 Author Organization [employer] Address [address] [place] [address] Care Team Providers Name Role Phone Elyse Paredes MD Primary Care Provider Encounter Details Date Type Department Care Team Description 05/30/2021 Refill Order Specialty Center [address] Freya Cho MD Endocrinology Clinic [address] [place] [address] [place] [address] [phone] Social History Tobacco Use Types Packs/Day Years [...] Team Description 08/13/2022 Appointment Radiology Denise Aguirre, FIELD CASHIER, HEAVY EQUIPMENT MECHANIC [address] [place], [place] [address] (Wo rk) 08/13/2022 Appointment Hematology and Oncology Denise Aguirre APRN, HEAVY EQUIPMENT MECHANIC [address] [place], [place] [address] (Wo rk) documented as [...] medications documented in this encounter Care Teams Bow Maker Production Relationship Specialty Start Date End Date Elyse Paredes MD PCP - General Family Practice 03/19/17 [address] [place] [address] documented as of this encounter
--- OUTSIDE RECORDS SUMMARY | 2022-07-09 14:31 | XMS_ITS | Encounter Summary ---
:1950 Author Organization [facility] Address [address] [place] [address] Care Team Providers Name Role Phone Elyse Paredes MD Primary Care Provider Encounter Details Date Type Department Care Team Description 07/31/2021 Office Visit [facility] Cancer Denise Aguirre alignant neoplasm Center at [facility] M, GRIFFIN, PLATING AND POINT ASSEMBLY SUPERVISOR of [address] of left breast in [address] [place] [address] female, [place] [address] receptor positive [phone] (HRC) (Primary Dx) (Work) Social History Tobacco [...] Comments Blood Pressure 129/61 07/31/2021 12:57 PM POWER HAMMER OPERATOR Pulse - - Temperature 36.7 ??C (98 ??F) 07/31/2021 12:53 PM POWER HAMMER OPERATOR Respiratory Rate 20 07/31/2021 12:53 PM POWER HAMMER OPERATOR Oxygen Saturation 98% 07/31/2021 12:53 PM POWER HAMMER OPERATOR Inhaled Oxygen Concentration - - Weight - - Height - - Body Mass Index - - documented in this encounter Patient Instructions Patient InstructionsDenise Aguirre APRN, BARRETT - 07/31/2021 1:00 PM POWER HAMMER OPERATOR Dear Marci, It was so nice to [...] or concerns. The clinic phone number is [phone]. After hours, please call the nurse care line at [phone]. Denise Hernandez APRN, BARRETT Follow up scheduled and AVS printed. PJ 07/31/21 1:29 PM R HAMMER OPERATOR documented in this encounter Progress Notes Apolonia Angelo RN - 07/31/2021 1:00 PM CST Completed per provider's orders. QOPI: Is patient starting new chemotherapy medications today or in the near future? Cara Machado RN 07/31/2021 2:30 PM R HAMMER OPERATOR Denise Aguirre APRN, CNP - 07/31/2021 1:00 PM CST [facility] Oncology/Hematology Follow up Visit Note Date of Service: 07/31/2021 Cancer Summary (Printed and given to the patient): Diagnosis, Stage, Prognostic Factors: ?? 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 She recently relocated to [facility] in January of this year. She continues [...] in thi s note. Denise Aguirre APRN, CLIENT PROGRAM MANAGER-BC 07/31/2021 4:43 PM Pager # [phone] This note created using speech-recognition software and may contain unintended word substitutions. R HAMMER OPERATOR documented in this encounter Plan of Treatment Upcoming Encounters Date Type Specialty Care Team Description 08/13/2022 Appointment Radiology Denise Aguirre APRN, PLATING AND POINT ASSEMBLY SUPERVISOR [address] [place], [place] [address] (Tonio sorenson) 08/13/2022 Appointment Hematology and Oncology Denise Aguirre APRN, BARRETT [address] [place], [place] [address] (Tonio sorenson) documented as [...] Primary documented in this encounter Care Teams Coin Dealer Relationship Specialty Start Date End Date Elyse Paredes MD PCP - General Family Practice 03/19/17 [address] [place] [address] documented as of this encounter
--- OUTSIDE RECORDS SUMMARY | 2022-07-09 14:31 | XMS_ITS | Encounter Summary ---
:1950 Author Organization [employer] Address [address] [place] [address] Care Team Providers Name Role Phone Elyse Paredes MD Primary Care Provider Reason for Visit Reason Comments Refill Continuous Blood Gluc Sensor (DEXCOM G6 SENSOR) [facility] [Pharmacy Med Name: DEXCOM G6 SENSOR MISC] Encounter Details Date Type Department Care Team Description 06/27/2021 Refill Specialty Center [address], Refill (Continuous Endocrinology Clinic MD Blood Gluc Sensor [address] (DEXCOM G6 SENSOR) [facility] [place] [address] [place], [place] [Pharmacy Med Name: [phone] [id number] DEXCOM G6 SENSOR MISC]) [phone] (Wo rk) Social History Tobacco Use Types [...] orders. Kathy Reyez RN 06/27/2021, 4:44 PM ING ACCESSORIES MAKER Interface, Out Surescripts Prov Query - 06/27/2021 [...] sensor every 10 days (unchanged) Powered by [employer], Reference: [id number], 06/27/2021 4:23:57 PM FISHING ACCESSORIES MAKER, Pool:ENDO REFILL RN ([id number]) ING ACCESSORIES MAKER documented in this encounter Plan of Treatment Upcoming Encounters Date Type Specialty Care Team Description 08/13/2022 Appointment Radiology Denise Aguirre APRN, PATIENT REGISTRATION SUPERVISOR [address] [place], [place] [address] (Wo rk) 08/13/2022 Appointment Hematology and Oncology Denise Aguirre APRN, PATIENT REGISTRATION SUPERVISOR [address] [place], [place] [address] (Wo rk) documented as [...] (HRC) documented in this encounter Care Teams Cardiothoracic Icu Rn Relationship Specialty Start Date End Date Elyse Paredes MD PCP - General Family Practice 03/19/17 [address] [address] documented as of this encounter
--- OUTSIDE RECORDS SUMMARY | 2022-07-09 14:31 | XMS_ITS | Encounter Summary ---
:1950 Author Organization [employer] Address [address] [place] [address] Care Team Providers Name Role Phone Elyse Paredes MD Primary Care Provider Encounter Details Date Type Department Care Team Description 01/17/2021 Lab Visit Specialty Center Coronary artery disease involving [place] coronary artery of [place]oc heart without angina pectoris (Primary Dx); Laboratory Stage 3a chronic kidney dise ase (HRC); [address] [address] Social History Tobacco Use Types [...] Description 08/13/2022 Appointment Radiology Denise Aguirre APRN, COLOR PASTE MIXING SUPERVISOR [address] [place], [place] [address] (Wo rk) 08/13/2022 Appointment Hematology and Oncology Denise Aguirre APRN, COLOR PASTE MIXING SUPERVISOR [address] [place], [place] [address] (Wo rk) documented as [...] Elyse Paredes MD LAB_1 Performing Organization Address City/[facility] Phon e Number [facility] [address] [address] SPECIAL[address] [place] [address] LABORATORY (ABNORMAL) Uric Acid (01/17/2021 11:03 AM CDT) P athologist Signature Uric Acid 7.4 (H) 2.6 - 6.0 01/17/2021 [facility] mg/dL 3:16 PM CDT CENTRAL LAB Specimen Anatomical Collection Method / Collection Time Recei gil Time (Source) Location / Volume Laterality Blood Venipuncture / 01/17/2021 11:03 1 Unknown AM CDT 11:03 AM CDT Prasanna Rivera MD LAB_1 Performing Organization Address City/[facility] Phon e Number [facility] [address] [address] (ABNORMAL) Basic Metabolic Panel (01/17/2021 11:03 AM CDT) [facility] Method Time Signature Sodium 138 136 - 145 01/17/2021 [facility] mmol/L 3:16 PM CDT CENTRAL LAB Potassium 3.2 (L) 3.5 - 5.1 01/17/2021 [facility] mmol/L 3:16 PM CDT CENTRAL LAB Chloride 100 98 - 109 01/17/2021 [facility] mmol/L 3:16 PM CDT CENTRAL LAB CO2 24 20 - 29 01/17/2021 [facility] mmol/L 3:16 PM CDT CENTRAL LAB Anion Gap 14 7 - 16 01/17/2021 [facility] mmol/L 3:16 PM CDT CENTRAL LAB Calcium 9.4 8.4 - 01/17/2021 [facility] 10.4 3:16 PM CDT CENTRAL LAB mg/dL BUN 25 7 - 26 01/17/2021 [facility] mg/dL 3:16 PM CDT CENTRAL LAB Creatinine 1.35 (H) 0.55 - 01/17/2021 [facility] 1.02 3:16 PM CDT CENTRAL LAB mg/dL GFR, Estimated 40 (L) >60 01/17/2021 [facility] mL/min/1. 3:16 PM CDT CENTRAL LAB 73m2 Glucose 246 (H) 70 - 100 01/17/2021 [facility] mg/dL 3:16 PM CDT CENTRAL LAB Comment: [...] Prasanna Rivera MD LAB_1 Performing Organization Address [facility]/ZIP [facility] Phon e Number [facility] CENTRAL LAB [address] [address] SPECIALTY CENTER [address] [phone] LABORATORY documented in this encounter Visit Diagnoses Diagnosis Coronary artery disease involving [place] coronary artery of [place] heart without angina pectoris (HRC) - Primary Stage 3a chronic kidney disease (HRC) Hyperuricemia Other abnormal blood chemistry documented in this encounter Care Teams Contracting Executive Relationship Specialty Start Date End Date Elyse Paredes MD PCP - General Family Practice 03/19/17 [address] [place] [address] documented as of this encounter
--- OUTSIDE RECORDS SUMMARY | 2022-07-09 14:31 | XMS_ITS | Encounter Summary ---
:1950 Author Organization [employer] Address [address] [place] [address] Care Team Providers Name Role Phone Elyse [...] [address] 25 MG 24 [place] [address] [place], [place] tablet [Pharmacy Med [phone] Name: METOPROLOL ER [phone] (Wo rk) SUCCINATE 25MG TABS]) Social History [...] Rate: 81 bpm on 10/06/2019 Powered by [employer] by [employer], Reference: [id number], 11/27/2021 4:19:46 AM CDT, Pool:MARY YANEZ RN ([id number]) documented in this encounter Plan of Treatment Upcoming Encounters Date Type Specialty Care Team Description 08/13/2022 Appointment Radiology Denise Aguirre, TOLL GATE KEEPER, NURSE TRANSITIONAL [address] [place] [address] (Wo rk) 08/13/2022 Appointment Hematology and Oncology Denise Aguirre, TOLL GATE KEEPER, NURSE TRANSITIONAL [address] [place], [place] [address] (Wo rk) documented as [...] (HRC) documented in this encounter Care Teams Refuse And Recycling Worker Relationship Specialty Start Date End Date Elyse Paredes MD PCP - General Family Practice 03/19/17 [address] [place] [address] documented as of this encounter
--- OUTSIDE RECORDS SUMMARY | 2022-07-09 14:31 | XMS_ITS | Encounter Summary ---
:1950 Author Organization [employer] Address [address] [place] [address] Care Team Providers Name Role Phone Elyse Paredes MD Primary Care Provider Reason for Visit Reason Comments Refill allopurinol (ZYLOPRIM) 100 M G tablet [Pharmacy Med Name: ALLOPURINOL 100MG TABLETS] Encounter Details Date Type Department Care Team Description 06/09/2021 Refill [facility] Nephrology Deepti Rivera, Refill (allopurinol [address] (ZYLOPRIM) 100 [place] [address] [Pharmacy Med Name: [phone] [place], [place] [address] ALLOPURINOL 100MG [phone] (Wo rk) TABLETS]) Social History Tobacco Use [...] she is going to continue care at [facility] and clinic with Dr. Bae. Pt states that she wanted to personally thank Dr. Rivera for his great care and service. Jefe Moore ERTY DISPOSAL OFFICER Waleska Angel, PAYTON - 06/09/2021 11:56 AM CST Was advised to follow up in April, please schedule next available. Waleska Angel RN 06/09/2021, 11:56 AM ERTY DISPOSAL OFFICER Interface, Out Surescripts Prov Query - 06/09/2021 [...] MG tablet (Recommended on 04/27/2021) Powered by [employer]) by nScaled, Reference: [id number], 06/09/2021 10:39:26 AM PROPERTY DISPOSAL OFFICER, Pool: Nicole ([id number]) ERTY DISPOSAL OFFICER Interface, Out Helpstream Prov Query - 06/09/2021 10:39 AM CST [...] on 02/27/2021 at 9:02 AM CDT 01/22/21 [facility] states: Return in about 3 months (around [...] ...... Kirk Pino RN 02/27/2021, 9:01 AM ERTY DISPOSAL OFFICER Interface, Out Helpstream Prov Query - 06/09/2021 10:39 AM CST The following lab order(s) may be associated with the following Patient Result Comment (Entered by Juan Cho MD at 02/26/2021 7:07 PM): HGB A1C Improved [id number] goal is less than 8.0 with a diagnosis of [id number] (estimated Average Glucose) (%) (mg/dL)5 97 6 126 7 154 8 183 9 212 10 240 11 269 12 298 Normal blood sugar A1c 5.6 and lessPrediabetes diagnosed by an A1c 5.7-6.4Diabetes diagnosed by an A1c 6.5 and above ERTY DISPOSAL OFFICER Interface, Out Helpstream Prov Query - 06/09/2021 10:39 AM CST [...] any changes at this timeDeepti Rivera MD ERTY DISPOSAL OFFICER Interface, Out Helpstream Prov Query - 06/09/2021 10:39 AM CST [...] any changes at this timeDeepti Rivera MD ERTY DISPOSAL OFFICER documented in this encounter Plan of Treatment Upcoming Encounters Date Type Specialty Care Team Description 08/13/2022 Appointment Radiology Denise Aguirre APRN, MERRY GO ROUND ATTENDANT [address] [place], [place] [address] (Wo rk) 08/13/2022 Appointment Hematology and Oncology Denise Aguirre APRN, MERRY GO ROUND ATTENDANT [address] [place], [place] [address] (Wo rk) documented as [...] chemistry documented in this encounter Care Teams Drafting Clerk Relationship Specialty Start Date End Date Elyse Paredes MD PCP - General Family Practice 03/19/17 [address] [place] [address] documented as of this encounter
--- OUTSIDE RECORDS SUMMARY | 2022-07-09 14:31 | XMS_ITS | Encounter Summary ---
:1950 Author Organization [employer] Address [address] [place] [address] Care Team Providers Name Role Phone Elyse Paredes MD Primary Care Provider Reason for Visit Procedure/Equipment (Routine) - Incomplete Specialty Diagnoses / Procedures Referred By Contact Refer red To Contact Diagnoses Malignant neoplasm of overlapping sites of left breast in female, estrogen receptor positive (HRC) Denise Aguirre APRN, Procedures MM Mammogram Screening Bilat W 3D Bravo W CAD RACE RELATIONS PROFESSOR [address] [place] [address] Referral ID Status Reason Start Date Expiration Date Visits V isits Requested Authorized [id number] Incomplete 07/23/2021 10/22/2022 1 1 Encounter Details Date Type Department Care Team Description 07/31/2021 Ancillary Procedure [facility], [facility] ant neoplasm [facility] Denise John APRN, of overlapping sites [address] [place] [address]. RACE RELATIONS PROFESSOR of left breast in [address] female, estrogen [address] [place], [place] receptor positive [phone] (HRC) Social History Tobacco Use Types Packs/Day [...] Description 08/13/2022 Appointment Radiology Denise Aguirre APRN, RACE RELATIONS PROFESSOR [address] [place] [address] (Wo rk) 08/13/2022 Appointment Hematology and Oncology Denise Aguirre, MANUAL ARTS TEACHER, RACE RELATIONS PROFESSOR [address] [place], [place] [address] (Wo rk) documented as of this encounter Goals Goal Patient Goal Associated Recent Patient-Stated? Author Type Problems Progress Being active Diabetes Diabetes No Tere, Education Education Tanner gN, ARMAND, CDE Note: [...] Re sults for this SCREENING BILAT W THEATER TECHNICIAN of overlapping sites pr omkarre are in 3D BRAVO W CAD of left breast in the resul ts female, estrogen section. receptor positive (HRC) documented in this encounter Results MM Mammogram Screening Bilat W 3D Bravo W CAD (07/31/2021 12:33 PM THEATER TECHNICIAN) Anatomical Region Laterality Modality Breast Bilateral Mammography Specimen (Source) Anatomical Location Collection Method / Collectio n Time Received Time / Laterality Volume Impressions 07/31/2021 1:46 PM THEATER TECHNICIAN : ACR BI-RADS Category 2: Benign RECOMMENDATION: Follow Up Imaging in 12 months - Bilateral The results and recommendations of this examination will be communicated to the patient. Narrative 07/31/2021 1:46 PM THEATER TECHNICIAN MM MAMMOGRAM SCREENING BILAT W 3D BRAVO [...] evidence of mal ignancy. ?? Denise Aguirre MANUAL ARTS TEACHER, RACE RELATIONS PROFESSOR RAD NILAM documented in this encounter Visit Diagnoses Diagnosis Malignant neoplasm of overlapping sites of left breast in female, estrogen receptor positive (HRC) documented in this encounter Care Teams Director Electrical Engineering Relationship Specialty Start Date End Date Elyse Paredes MD PCP - General Family Practice 03/19/17 [address] [place] [address] documented as of this encounter
--- OUTSIDE RECORDS SUMMARY | 2022-07-09 14:31 | XMS_ITS | Encounter Summary ---
:1950 Author Organization [facility] Address [address] [place] [address] Care Team Providers Name Role Phone Elyse Paredes MD Primary Care Provider Reason for Referral Procedure/Equipment (Routine) - Incomplete Specialty Diagnoses / Procedures Referred By Contact Refer red To Contact Diagnoses Malignant neoplasm of overlapping sites of left breast in female, estrogen receptor positive (HRC) Denise Aguirre APRN, Procedures MM Mammogram Screening Bilat W 3D Bravo W CAD MIDDLE SCHOOL DIRECTOR [address] [place] [address] Referral ID Status Reason Start Date Expiration Date Visits V isits Requested Authorized [id number] Incomplete 01/29/2022 04/30/2023 1 1 Reason for Visit Reason Comments Follow-up Malignant neoplasm of overla pping sites of left breast in female Encounter Details Date Type Department Care Team Description 01/29/2022 Office Visit [facility] Cancer Denise Aguirre alignant neoplasm Center at [facility] GRIFFIN John, MIDDLE SCHOOL DIRECTOR of overlapping sites Hospital [address] [place] [address] of left breast in [address] [place] [address] female, [place] [address] receptor positive [phone] (HRC) (Primary Dx) (Work) Social History Tobacco [...] or concerns. The clinic phone number is [phone]. After hours, please call the nurse care line at [phone]. Denise Hernandez APRN, CAP SIZER-[facility] - Mammogram is scheduled on 08/13/22 @12:40pm at [facility] Breast [facility]. Do not wear any lotions, powders, or deodorants to this visit. After mammogram, please proceed to [facility] for a follow-up with Daniela @1:30pm. Jonathan Toney 1:37 PM 01/29/22 REMINDER! If you are not feeling well please call before you come to the clinic. documented in this encounter Progress Notes Denise Aguirre, INTERLOCKING AND SIGNAL MECHANIC, MIDDLE SCHOOL DIRECTOR - 01/29/2022 1:00 PM CDT [facility] Oncology/Hematology Follow up Visit Note Date [...] and breast examination. She recently relocated to [facility] in January of this year. [...] in thi s note. Denise Aguirre APRN, CAP SIZER-[facility] This note created using speech-recognition software and may contain unintended word substitutions. Kirsty Alvarado - 01/29/2022 1:00 PM CDT Completed per provider's orders. QOPI: Is patient starting new chemotherapy medications today? No. Kirsty Dallas MANAGER SUPPLIER 01/29/2022 4:01 PM documented in this encounter Plan of Treatment Upcoming Encounters Date Type Specialty Care Team Description 08/13/2022 Appointment Radiology Denise Aguirre APRN, MIDDLE SCHOOL DIRECTOR [address] [place], [place] [address] (Wo rk) 08/13/2022 Appointment Hematology and Oncology Denise Aguirre APRN, MIDDLE SCHOOL DIRECTOR [address] [place], [place] [address] (Wo rk) Scheduled Orders [...] Primary documented in this encounter Care Teams Manager Information Relationship Specialty Start Date End Date Elyse Paredes MD PCP - General Family Practice 03/19/17 [address] [place] [address] documented as of this encounter
--- OUTSIDE RECORDS SUMMARY | 2022-07-09 14:31 | XMS_ITS | Encounter Summary ---
:1950 Author Organization [facility] Address [address] [place] [address] Care Team Providers Name Role Phone Elyse Paredes MD Primary Care Provider Reason for Referral Procedure/Equipment (Routine) - Incomplete Specialty Diagnoses / Procedures Referred By Contact Refer red To Contact Diagnoses Malignant neoplasm of overlapping sites of left breast in female, estrogen receptor positive (HRC) Denise Aguirre APRN, Procedures MM Mammogram Screening Bilat W 3D Bravo W CAD WIND PROJECT MANAGER [address] [place] [address] Referral ID Status Reason Start Date Expiration Date Visits V isits Requested Authorized [id number] Incomplete 07/23/2021 10/22/2022 1 1 Encounter Details Date Type Department Care Team Description 01/30/2021 Telemedicine [facility] Cancer Dneise Aguirre alignant neoplasm Center at [facility] GRIFFIN John WIND PROJECT MANAGER of overlapping sites [address] of left breast in [address] [place] [address] female, [place] [address] receptor positive [phone] (HRC) (Primary Dx) (Work) Social History Tobacco [...] or concerns. The clinic phone number is [phone]. After hours, please call the nurse care line at [phone]. Take Denise Schumacher APRN, CNP Appointments scheduled with patient Will view AVS online RH 2:32 PM 01/30/21 documented in this encounter Progress Notes Denise Aguirre APRN, CNP - 01/30/2021 2:00 PM CDT [facility] Oncology/Hematology Follow up Visit Note Date [...] intermittent fasting with the approval of her certified physician assistant. She feels that doing intermittent fasting has really helped reset her metabolism. She did receive the COVID-19 vaccine (Moderna), but continues to avoid going out in public or making unnecessary trips outside of her home. She had her annual pelvic examination in May of 2020 with her primary care at [facility]. Shewill be due for an eye examination in March, however her chip crusher operator is booked until the beginning of July. [...] Description 08/13/2022 Appointment Radiology Denise Aguirre APRN, WIND PROJECT MANAGER [address] [place], [place] [address] (Tonio sorenson) 08/13/2022 Appointment Hematology and Oncology Denise Aguirre APRN, WIND PROJECT MANAGER [address] [place], [place] [address] (Tonio sorenson) documented as [...] 3D Bravo W CAD (07/31/2021 12:33 PM METAL CASKET ASSEMBLER) Anatomical Region Laterality Modality Breast Bilateral Mammography Specimen (Source) Anatomical Location Collection Method / Collectio n Time Received Time / Laterality Volume Impressions 07/31/2021 1:46 PM METAL CASKET ASSEMBLER : ACR BI-RADS Category 2: Benign RECOMMENDATION: Follow Up Imaging in 12 months - Bilateral The results and recommendations of this examination will be communicated to the patient. Narrative 07/31/2021 1:46 PM METAL CASKET ASSEMBLER MM MAMMOGRAM SCREENING BILAT W 3D BRAVO [...] evidence of mal ignancy. ?? Denise Aguirre WARDROBE TECHNICIAN, WIND PROJECT MANAGER RAD NILAM documented in this encounter Visit Diagnoses Diagnosis Malignant neoplasm of overlapping sites of left breast in female, estrogen receptor positive (HRC) - Primary Malignant neoplasm of overlapping sites of left breast in female, estrogen receptor positive (HRC) documented in this encounter Care Teams Yard Truck Driver Relationship Specialty Start Date End Date Elyse Paredes MD PCP - [facility] Practice 03/19/17 [address] [place] [address] documented as of this encounter
--- OUTSIDE RECORDS SUMMARY | 2022-07-09 14:31 | XMS_ITS | Encounter Summary ---
:1950 Author Organization [employer] Address [address] [place] [address] Care Team Providers Name Role Phone Elyse Paredes MD Primary Care Provider Encounter Details Date Type Department Care Team Description 06/27/2021 Refill Order Specialty Center [address] Freya Zaragoza MD Endocrinology Clinic [address] [place] [address] [place] [address] [phone] Social History Tobacco Use Types Packs/Day Years [...] - NEXT LAB APPOINTMENT: None Powered by [facility] by Vouch, Reference: [id number], 06/27/2021 4:23:57 PM SYSTEM OPERATOR, Pool:MARY YANEZ RN ([id number]) EM OPERATOR documented in this encounter Plan of Treatment Upcoming Encounters Date Type Specialty Care Team Description 08/13/2022 Appointment Radiology Denise Aguirre APRN, MEDIA SERVICES COORDINATOR [address] [place], [place] [address] (Wo rk) 08/13/2022 Appointment Hematology and Oncology Denise Aguirre APRN, MEDIA SERVICES COORDINATOR [address] [place], [place] [address] (Wo rk) documented as [...] medications documented in this encounter Care Teams Beehive Kiln Charcoal Burner Relationship Specialty Start Date End Date Elyse Paredes MD PCP - General Family Practice 03/19/17 [address] [place] [address] documented as of this encounter
--- OUTSIDE RECORDS SUMMARY | 2022-07-09 14:31 | XMS_ITS | Encounter Summary ---
:1950 Author Organization [employer] Address [address] [place] [address] Care Team Providers Name Role Phone Elyse Paredes MD Primary Care Provider Encounter Details Date Type Department Care Team Description 10/15/2021 Refill Order Specialty Center 401 Freya Cho MD Endocrinology Clinic [address] [place] [address] [place] [address] [phone] Social History Tobacco Use Types Packs/Day Years [...] Description 08/13/2022 Appointment Radiology Denise Aguirre APRN, SURGICAL SUPERVISOR [address] [place], [place] [address] (Wo rk) 08/13/2022 Appointment Hematology and Oncology Denise Aguirre APRN, SURGICAL SUPERVISOR [address] [place], [place] [address] (Wo rk) documented as [...] medications documented in this encounter Care Teams Suspender Cutter Relationship Specialty Start Date End Date Elyse Paredes MD PCP - General Family Practice 03/19/17 [address] [place] [address] documented as of this encounter
--- OUTSIDE RECORDS SUMMARY | 2022-07-09 14:31 | XMS_ITS | Encounter Summary ---
:1950 Author Organization [employer] Address [address] [place] [address] Care Team Providers Name Role Phone Elyse [...] [address] [Pharmacy Med Name: [place] [address] [place], [place] SURE COMFORT PEN [phone] NEEDLES 31GX3/16]) [phone] (Wo rk) Social History Tobacco Use Types [...] PM CDT Completed per physician's orders. Jacquelyn Mtaos RN 4:43 PM 11/27/2021 Interface, Out Surescripts [...] to five times daily (unchanged) Powered by [employer] by [employer], Reference: [id number], 11/27/2021 4:21:45 AM CDT, Pool:ENDO REFILL RN ([id number]) documented in this encounter Plan of Treatment Upcoming Encounters Date Type Specialty Care Team Description 08/13/2022 Appointment Radiology Denise Aguirre APRN, BILL BOARD POSTER [address] [place], [place] [address] (Wo rk) 08/13/2022 Appointment Hematology and Oncology Denise Aguirre APRN, BILL BOARD POSTER [address] [place], [place] [address] (Tonio rk) documented as [...] on filedocumented in this encounter Care Teams Conveyancer Relationship Specialty Start Date End Date Elyse Paredes MD PCP - General Family Practice 03/19/17 [address] [place] [address] documented as of this encounter
--- OUTSIDE RECORDS SUMMARY | 2022-07-09 14:31 | XMS_ITS | Encounter Summary ---
:1950 [facility] Address [address], [place] [address] Care Team Providers Name Role Phone Elyse Paredes MD Primary Care Provider Reason for Visit Reason Comments REPORTING, NEW SYMPTOMS Encounter Details Date Type Department Care Team Description 01/02/2022 Telephone [facility] Julius, JULIO [facility] JORDAN Aldana [address] [place] [address] [phone] Social History Tobacco Use Types Packs/Day Years [...] Perry RN OCN 3:25 PM 01/02/22 Roscoe Frazier - 01/02/2022 1:24 PM CDT Pt is [...] Description 08/13/2022 Appointment Radiology Denise Aguirre APRN, BUFFING MACHINE TENDER [address] [place], [place] [address] (Wo rk) 08/13/2022 Appointment Hematology and Oncology Denise Aguirre APRN, BUFFING MACHINE TENDER [address] [place], [place] [address] (Wo rk) documented as [...] on filedocumented in this encounter Care Teams General Labor Forklift Operator Relationship Specialty Start Date End Date Elyse Paredes MD PCP - General Family Practice 03/19/17 [address] [place] [address] documented as of this encounter
--- OUTSIDE RECORDS SUMMARY | 2022-07-09 14:31 | XMS_ITS | Encounter Summary ---
:1950 Author Organization [employer] Address [address] [place] [address] Care Team Providers Name Role Phone Elyse Paredes MD Primary Care Provider Encounter Details Date Type Department Care Team Description 11/21/2020 Lab Visit Specialty Center Uncontro lled type 2 diabetes Laboratory mellitus with hyperosmolarit y [address] [place], [place] [address] current use of insulin ([facility]) [phone] Social History Tobacco Use Types Packs/Day Years [...] Team Description 08/13/2022 Appointment Radiology Denise Aguirre, MACHINE PIE MAKER, SUSPENSION CORD TIER [address] [place], [place] [address] (Wo rk) 08/13/2022 Appointment Hematology and Oncology Denise Aguirre APRN, SUSPENSION CORD TIER [address] [place], [place] [address] (Wo rk) documented as [...] (ABNORMAL) Hgb A1C (11/21/2020 12:53 PM CDT) [facility] gist Method Time Signature Hemoglobin A1C 7.6 (H) <=5.6 % 11/21/2020 [facility] 4:46 PM CDT CENTRAL LAB Specimen Anatomical Collection Method / Collection Time Recei gil Time (Source) Location / Volume Laterality Blood Venipuncture / 11/21/2020 12:53 1 Unknown PM CDT 12:53 PM CDT Narrative [facility] - 11/21/2020 4:46 PM CDT For patients not previously diagnosed with diabetes: 5.7-6.4%: Increased risk for diabetes 6.5% and greater: Diagnostic for diabete s For patients diagnosed with diabetes: <8.0%: Goal of therapy for ages 18-75 Clinicians may recommend a higher or low er goal for specific individuals. Juan Cho MD LAB_1 Performing Organization Address City/State/ZIP Code Phon e Number [facility] CENTRAL LAB [address] [address] documented in this encounter Visit Diagnoses Diagnosis Uncontrolled type 2 diabetes mellitus wi th hyperosmolarity without coma, with long-term current use of insulin (HRC) documented in this encounter Care Teams Cost Accounting Analyst Relationship Specialty Start Date End Date Elyse Paredes MD PCP - General Family Practice 03/19/17 [address] [place] [address] documented as of this encounter
--- OUTSIDE RECORDS SUMMARY | 2022-07-09 14:31 | XMS_ITS | Encounter Summary ---
:1950 Author Organization [employer] Address [address] [place] [address] Care Team Providers Name Role Phone Elyse Paredes MD Primary Care Provider Reason for Visit Reason Comments Follow-up Encounter Details Date Type Department Care Team Description 01/22/2021 Telemedicine [facility] Nephrology Prasanna Rivera, Stage 3a chronic kidney dise ase (HRC); [address] Mona Maxwell MD Hyperuricemia; [place] [address] [address] [place] Essential hypertension [phone] [place], [place] [id number] Social History Tobacco Use Types Packs/Day Years [...] LAD stent in May of 2017 at [facility]. She also underwent TAVR procedure in July [...] [facility] Kidney Stone [place] in the past. No current kidney stone [...] mellitus, with long-term current use of insulin ([facility]) 03/19/2017 ALLERGIES: is allergic to erythromycin, [...] Gatherings with Friends and Family: ??? Attends Zoroastrianism Services: ??? Active Member of Clubs or [...] 100 Each, Rfl: 3 Continuous Blood Gluc Volcanology Teacher (DEXCOM G6 INTEGRITY ENGINEER) JAY, Use as directed for continuous glucose [...] Team Description 08/13/2022 Appointment Radiology Denise Aguirre, COOKER CASING, EBD TEACHER [address] [place], [place] [address] (Wo rk) 08/13/2022 Appointment Hematology and Oncology Denise Aguirre, COOKER CASING, EBD TEACHER [address] [place], [place] [address] (Wo rk) documented as [...] Address City/State/ZIP Code Phon e Number [facility] CENTRAL [facility] [address] [address] (ABNORMAL) Basic Metabolic Panel (02/26/2021 1:09 PM CDT) [facility] Method Time Signature Sodium 138 136 - 145 02/26/2021 [facility] mmol/L 4:53 PM CDT CENTRAL LAB Potassium 4.6 3.5 - 5.1 02/26/2021 [facility] mmol/L 4:53 PM CDT CENTRAL LAB Chloride 106 98 - 109 02/26/2021 [facility] mmol/L 4:53 PM CDT CENTRAL LAB CO2 24 20 - 29 02/26/2021 [facility] mmol/L 4:53 PM CDT CENTRAL LAB Anion Gap 8 7 - 16 02/26/2021 [facility] mmol/L 4:53 PM CDT CENTRAL LAB Calcium 9.5 8.4 - 02/26/2021 [facility] 10.4 4:53 PM CDT CENTRAL LAB mg/dL BUN 18 7 - 26 02/26/2021 [facility] mg/dL 4:53 PM CDT CENTRAL LAB Creatinine 1.22 (H) 0.55 - 02/26/2021 [facility] 1.02 4:53 PM CDT CENTRAL LAB mg/dL GFR, Estimated 46 (L) >60 02/26/2021 [facility] mL/min/1. 4:53 PM CDT CENTRAL LAB 73m2 Glucose 162 (H) 70 - 100 02/26/2021 [facility] mg/dL 4:53 PM CDT CENTRAL LAB Comment: [...] Unknown PM CDT PM CDT Narrative [facility] CENTRAL LAB - 02/26/2021 4:53 PM CDT [...] Organization Address City/State/ZIP Code Phon e Number [employer] CENTRAL LAB [address] [address] [address] [place] [id number] [place] [address] LABORATORY documented in this encounter Visit Diagnoses Diagnosis Stage 3a chronic kidney disease (HRC) Hyperuricemia Other abnormal blood chemistry Essential hypertension (HRC) Unspecified essential hypertension documented in this encounter Care Teams Mortgage Loan Funder Relationship Specialty Start Date End Date Elyse Paredes MD PCP - General Family Practice 03/19/17 [address] [place] [address] documented as of this encounter
--- OUTSIDE RECORDS SUMMARY | 2022-07-09 14:31 | XMS_ITS | Encounter Summary ---
:1950 Author Organization [employer] Address [address] [place] [address] Care Team Providers Name Role Phone Elyse Paredes MD Primary Care Provider Reason for Referral Medication Prior Authorization - Closed Specialty Diagnoses / Procedures Referred By Contact Refer red To Contact Juan Zaragoza MD [address] [place] [address] Referral ID Status Reason Start Date Expiration Date Visits Requ ested Visits Authorized [id number] Closed 1 1 Reason for Visit Reason Comments Refill OZEMPIC, 1 MG/DOSE, 4 MG/3ML injection [Pharmacy Med Name: OZEMPIC 1MG PER DOSE (1X4MG PEN)] Encounter Details Date Type Department Care Team Description 10/15/2021 Refill [facility] [address] Juan Zaragoza, Refill (OZEMPIC, 1 [facility] MG/DOSE, 4 MG/3ML [address] injection [[place] [address] [place] Name: OZEMPIC 1MG PER [phone] DOSE (1X4MG PEN)]) [phone] (Wo rk) Social History Tobacco Use Types [...] Matos RN 4:04 PM 10/16/2021 Interface, Out [employer] [place] Prov Query - 10/15/2021 11:33 AM CDT [...] the skin once weekly (unchanged) Powered by [facility] by [employer], Reference: [id number], 10/15/2021 11:33:29 AM CDT, Pool:MARY YANEZ RN ([id number]) Electronically signed by Interface, Out [employer] Prov Query at 11/16/2021 8:46 PM CDT documented in this encounter Plan of Treatment Upcoming Encounters Date Type Specialty Care Team Description 08/13/2022 Appointment Radiology Denise Aguirre, PATIENT DAY COORDINATOR, PLASTIC SHEETS SUPERVISOR [address] [place], [place] [address] (Wo rk) 08/13/2022 Appointment Hematology and Oncology Denise Aguirre, GRIFIFN, PLASTIC SHEETS SUPERVISOR [address] [place], [place] [address] (Wo rk) documented as [...] Eating healthy Diabetes Education Diabetes Education No aTnner Carranza, RD, CDE Note: Formatting of this [...] on filedocumented in this encounter Care Teams Tobacco Roller Relationship Specialty Start Date End Date Elyse Paredes MD PCP - General Family Practice 03/19/17 [address] [place] [address] documented as of this encounter
--- OUTSIDE RECORDS SUMMARY | 2022-07-09 14:31 | XMS_ITS | Encounter Summary ---
:1950 Author Organization [employer] Address [address] [place] [address] Care Team Providers Name Role Phone Elyse Paredes MD Primary Care Provider Reason for Visit Reason Comments Refill allopurinol (ZYLOPRIM) 100 M G tablet [Pharmacy Med Name: ALLOPURINOL 100MG TABLETS] Encounter Details Date Type Department Care Team Description 04/27/2021 Refill [facility] Nephrology Deepti Rivera, Refill (allopurinol [address] (ZYLOPRIM) 100 [place] [address] [Pharmacy Med Name: [phone] [place], [place] [address] ALLOPURINOL 100MG [phone] (Wo rk) TABLETS]) Social History Tobacco Use [...] allopurinol (ZYLOPRIM) 100 MG tablet Powered by [employer] by [employer], Reference: [id number], 04/27/2021 11:52:16 AM CDT, Pool: Nicole ([id number]) Interface, Out [employer] Prov Query - 04/27/2021 11:52 AM CDT [...] ...... Kirk Pino RN 02/27/2021, 9:01 AM Interface, Out [employer] Prov Query - 04/27/2021 11:52 AM CDT The following lab order(s) may be associated with the following Patient Result Comment (Entered by Juan Cho MD at 02/26/2021 8:07 PM): HGB A1C Improved [id number] goal is less than 8.0 with a diagnosis of [id number] (estimated Average Glucose) (%) (mg/dL)5 97 6 126 7 154 8 183 9 212 10 240 11 269 12 298 Normal blood sugar A1c 5.6 and lessPrediabetes diagnosed by an A1c 5.7-6.4Diabetes diagnosed by an A1c 6.5 and above Interface, Out [employer] Prov Query - 04/27/2021 11:52 AM CDT [...] at this timeDeepti Rivera MD Interface, Out [employer] Query - 04/27/2021 11:52 AM CDT The [...] Description 08/13/2022 Appointment Radiology Denise Aguirre, HEAD SAWYER AUTOMATIC, WOOD WEB WEAVING MACHINE OPERATOR [address] [place] [address] (Wo rk) 08/13/2022 Appointment Hematology and Oncology Denise Aguirre APRN, WOOD WEB WEAVING MACHINE OPERATOR [address] [place], [place] [address] (Wo rk) documented as [...] chemistry documented in this encounter Care Teams Rapier Insertion Loom Fixer Relationship Specialty Start Date End Date Elyse Paredes MD PCP - General Family Practice 03/19/17 [address] [place] [address] documented as of this encounter
--- OUTSIDE RECORDS SUMMARY | 2022-07-09 14:31 | XMS_ITS | Encounter Summary ---
:1950 Author Organization [employer] Address [address] [place] [address] Care Team Providers Name Role Phone Elyse Paredes MD Primary Care Provider Reason for Visit Reason Comments Refill allopurinol (ZYLOPRIM) 100 M G tablet [Pharmacy Med Name: ALLOPURINOL 100MG TABLETS] Encounter Details Date Type Department Care Team Description 11/28/[address] [facility] Nephrology Deepti Rivera, Refill (allopurinol [address] (ZYLOPRIM) [place] [address] [Pharmacy Med Name: [phone] [place], [place] [address] ALLOPURINOL 100MG [phone] (Wo rk) TABLETS]) Social History Tobacco Use [...] allopurinol (ZYLOPRIM) 100 MG tablet Powered by [employer] by [employer], Reference: [id number], 11/28/2020 4:32:29 AM CDT, Pool:Nicole ([id number]) Interface, Out [employer] Prov Query - 11/28/2020 4:32 AM CDT The following lab order(s) may be associated with the Result Note below: URIC ACID; BASIC METABOLIC PANEL Notes recorded by Deepti Rivera MD on 10/08/2020 at 11:57 AM LAW FIRM CONSULTANT Please let the patient know that the [...] Pino RN on 10/08/2020 at 9:27 AM LAW FIRM CONSULTANT Previsit labs for upcoming appt on 10/15. Kirk Pino RN 10/08/2020, 9:27 AM Interface, Out [employer] Prov Query - 11/28/2020 4:32 AM CDT [...] this time. Deepti Rivera MD Interface, Out [employer] Prov Query - 11/28/2020 4:32 AM CDT [...] this time. Deepti Rivera MD Interface, Out [employer] Prov Query - 11/28/2020 4:32 AM CDT The following lab order(s) may be associated with the following Patient Result Comment (Entered by Juan Cho MD at 10/08/2020 7:24 PM): HGB A1C HgA1c goal is less than 8.0 with a diagnosis of [id number] (estimated Average Glucose) (%) (mg/dL)5 97 6 126 7 154 8 183 9 212 10 240 11 269 12 298 Normal blood sugar A1c 5.6 and lessPrediabetes diagnosed by an A1c 5.7-6.4Diabetes diagnosed by an A1c 6.5 and above documented in this encounter Plan of Treatment Upcoming Encounters Date Type Specialty Care Team Description 08/13/2022 Appointment Radiology Denise Aguirre APRN, INCUBATOR MACHINE OPERATOR [address] [place], [place] [address] (Wo rk) 08/13/2022 Appointment Hematology and Oncology Denise Aguirre APRN, INCUBATOR MACHINE OPERATOR [address] [place], [place] [address] (Wo rk) documented as [...] (HRC) documented in this encounter Care Teams Sewing Machine Operator Zipper Relationship Specialty Start Date End Date Elyse Paredes MD PCP - General Family Practice 03/19/17 [address] [address] documented as of this encounter
--- OUTSIDE RECORDS SUMMARY | 2022-07-09 14:32 | XMS_ITS | Encounter Summary ---
:1950 Author Organization [employer] Address [address] [place] [address] Care Team Providers Name Role Phone Elyse Paredes MD Primary Care Provider Encounter Details Date Type Department Care Team Description 05/28/2020 Lab Visit Specialty Center CKD ([facility] onic kidney disease) stage 3, GFR 30-59 ml/min; Laboratory Hyperuricemia; [address] [place] [address] Social History Tobacco Use Types [...] labs. Edelmira Cisneros RN 05/29/2020, 9:55 AM Parsanna Rivera MD - 05/28/2020 1:00 PM CDT [...] Description 08/13/2022 Appointment Radiology Denise Aguirre, GRIFFIN, ASSOCIATE PRODUCT MANAGER [address] [place], [place] [address] (Wo rk) 08/13/2022 Appointment Hematology and Oncology Denise Aguirre APRN, ASSOCIATE PRODUCT MANAGER [address] [place], [place] [address] (Wo rk) documented as [...] Results Microalbumin/Creatinine Ratio (05/28/2020 1:09 PM CDT) [facility] Method Time Signature Albumin, 74.5 mg/L 05/28/2020 [facility] Urine, Random 6:37 PM CDT CENTRAL LAB Creatinine, 283 >20 mg/dL 05/28/2020 [facility] Urine, Random 6:37 PM CDT CENTRAL LAB Albumin/Creati 26 <30 mg/g 05/28/2020 [facility] nine Ratio, 6:37 PM CDT CENTRAL LAB Urine, Random Specimen Anatomical Collection Method Collection Time Receive d Time (Source) Location / / Volume Laterality Urine Non-blood 05/28/2020 1:09 PM 0 1:09 Collection / CDT PM CDT Unknown Prasanna Rivera MD LAB_1 Performing Organization Address [facility] Phon e Number [facility] [address] [address] (ABNORMAL) Uric Acid (05/28/2020 1:09 PM CDT) athologist Signature Uric Acid 6.2 (H) 2.6 - 6.0 05/28/2020 [facility] mg/dL 3:59 PM CDT CENTRAL LAB Specimen Anatomical Collection Method / Collection Time Recei gil Time (Source) Location / Volume Laterality Blood Venipuncture / 05/28/2020 1:09 05/28/2020 1:09 Unknown PM CDT PM CDT Prasanna Rivera MD LAB_1 Performing Organization Address [facility] Phon e Number [facility] CENTRAL LAB [address] [address] (ABNORMAL) Basic Metabolic Panel (05/28/2020 1:09 PM CDT) [facility] Method Time Signature Sodium 141 136 - 145 05/28/2020 [facility] mmol/L 3:59 PM CDT CENTRAL LAB Potassium 3.6 3.5 - 5.1 05/28/2020 [facility] mmol/L 3:59 PM CDT CENTRAL LAB Chloride 99 98 - 109 05/28/2020 [facility] mmol/L 3:59 PM CDT CENTRAL LAB CO2 29 20 - 29 05/28/2020 [facility] mmol/L 3:59 PM CDT CENTRAL LAB Anion Gap 13 7 - 16 05/28/2020 [facility] mmol/L 3:59 PM CDT CENTRAL LAB Calcium 9.6 8.4 - 05/28/2020 [facility] 10.4 3:59 PM CDT CENTRAL LAB mg/dL BUN 17 7 - 26 05/28/2020 [facility] mg/dL 3:59 PM CDT CENTRAL LAB Creatinine 1.28 (H) 0.55 - 05/28/2020 [facility] 1.02 3:59 PM CDT CENTRAL LAB mg/dL GFR, Estimated 43 (L) >60 05/28/2020 [facility] mL/min/1. 3:59 PM CDT CENTRAL LAB 73m2 Glucose 165 (H) 70 - 100 05/28/2020 [facility] mg/dL 3:59 PM CDT CENTRAL LAB Comment: [...] Address City/State/ZIP Code Phon e Number [facility] [address] [address] [address] [place] [id number] [place] [address] LABORATORY documented in this encounter Visit Diagnoses Diagnosis CKD (chronic kidney disease) stage 3, GF R 30-59 ml/min (HRC) Chronic kidney disease, Stage III (moder ate) Hyperuricemia Other abnormal blood chemistry Microalbuminuria Proteinuria documented in this encounter Care Teams Disaster Recovery Manager Relationship Specialty Start Date End Date Elyse Paredes MD PCP - General Family Practice 03/19/17 [address] [place] [address] documented as of this encounter
--- OUTSIDE RECORDS SUMMARY | 2022-07-09 14:32 | XMS_ITS | Encounter Summary ---
:1950 Author Organization [employer] Address [address] [place] [address] Care Team Providers Name Role Phone Elyse Paredes MD Primary Care Provider Reason for Referral Procedure/Equipment (Routine) - Incomplete Specialty Diagnoses / Procedures Referred By Contact Refer red To Contact Procedures Elyse Paredes MD MM Mammogram Screening Bilat [address] [place] [address] Referral ID Status Reason Start Date Expiration Date Visits V isits Requested Authorized [id number] Incomplete 07/22/2020 10/21/2021 1 1 ROOM SUPERVISOR Reason for Visit Procedure/Equipment (Routine) - Incomplete Specialty Diagnoses / Procedures Referred By Contact Refer red To Contact Procedures Elyse Paerdes MD MM Mammogram Screening Bilat [address] [place] [address] Referral ID Status Reason Start Date Expiration Date Visits V isits Requested Authorized [id number] Incomplete 07/22/2020 10/21/2021 1 1 Encounter Details Date Type Department Care Team Description 07/22/2020 Ancillary Procedure [facility] Elyse Paredes MD Center [address] [place] [address] [place] [address] [phone] Social History Tobacco Use Types Packs/Day Years [...] Team Description 08/13/2022 Appointment Radiology Denise Aguirre, BAIL BONDING AGENT, PIPE COVERING MOLDER [address] [place], [place] [address] (Wo rk) 08/13/2022 Appointment Hematology and Oncology Denise Aguirre, BAIL BONDING AGENT, PIPE COVERING MOLDER [address] [place], [place] [address] (Wo rk) documented as [...] AM Results for this SCREENING BILAT W CELL ROOM SUPERVISOR procedure are in 3D BRAVO W CAD the results section. documented in this encounter Results MM Mammogram Screening Bilat W 3D [address]ravo W CAD (07/22/2020 10:20 AM CELL ROOM SUPERVISOR) Anatomical Region Laterality Modality Breast Bilateral Mammography Specimen (Source) Anatomical Location Collection Method / Collectio n Time Received Time / Laterality Volume Impressions 07/22/2020 4:44 PM CELL ROOM SUPERVISOR : ACR BI-RADS Category 2: Benign RECOMMENDATION: Follow Up Imaging in 12 months - Bilateral The results and recommendations of this examination will be communicated to the patient. Narrative 07/22/2020 4:44 PM CELL ROOM SUPERVISOR MM MAMMOGRAM SCREENING BILAT W 3D BRAVO [...] on filedocumented in this encounter Care Teams Passenger Tire Builder Relationship Specialty Start Date End Date Elyse Paredes MD PCP - General Family Practice 03/19/17 [address] [place] [address] documented as of this encounter
--- OUTSIDE RECORDS SUMMARY | 2022-07-09 14:32 | XMS_ITS | Encounter Summary ---
:1950 Author Organization [email or web address] Address [address] [place] [address] Care Team Providers Name Role Phone Elyse Paredes MD Primary Care Provider Reason for Visit Reason Comments Follow-up Encounter Details Date Type Department Care Team Description 10/15/2020 Telemedicine [facility] Nephrology Prasanna Rivera Stage 3a chronic kidney dise ase (HRC) (Primary Dx); [address] MD Essential hypertension; [place] [address] [address] [facility] Hyperuricemia [phone] [place] [address] Social History Tobacco Use Types Packs/Day Years [...] Body Mass Index 49.02 09/16/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 She also underwent TAVR procedure in July [...] She has seen Dr. Johns of the [facility] [place] in the past. PAST MEDICAL HISTORY: Past Medical History: Diagnosis Date ??? A-fib (HRC) ??? Breast cancer (HRC) 2018 [facility] - radiation ??? CAD (coronary artery disease) (HRC) JEFFERSON to LAD ??? HTN (hypertension) (C) ??? Hx of total knee arthroplasty Left knee ??? Hyperlipidemia (HRC) ??? Nephrolithiasis ??? DEDE on CPAP ??? S/P TAVR (transcatheter aortic valve replacement) 07/2017, [facility] ??? Uncontrolled type 2 diabetes mellitus, with long-term current use of insulin ([facility]) 03/19/2017 ALLERGIES: is allergic [...] Gatherings with Friends and Family: ??? Attends Druze Services: ??? Active Member of Clubs or [...] 100 Each, Rfl: 11 Continuous Blood Gluc Manager Assisted Living ([employer] G6 SERVICE CONSULTANT) JAY, Use as directed for continuous glucose [...] in this encounter Nursing Notes Peter Pino, EDJA - 10/15/2020 2:00 PM CDT Patient completed mobile check in for rooming and did not report any change. Lm x 1 for patient to get bp, hr, and weight for MD prior to visit. Peter Pino LPN 10/15/2020, 9:33 AM documented in this encounter Plan of Treatment Upcoming Encounters Date Type Specialty Care Team Description 08/13/2022 Appointment Radiology Denise Aguirre APRN, POLICE GUARD [address] [place], [place] [address] (Wo rk) 08/13/2022 Appointment Hematology and Oncology Denise Aguirre APRN, POLICE GUARD [address] [place], [place] [address] (Wo rk) documented as [...] Results Microalbumin/Creatinine Ratio (01/20/2021 12:21 PM CDT) [facility] Time Signature Albumin, 30.5 mg/L 01/20/2021 [facility] Urine, Random 4:04 PM CDT CENTRAL LAB Creatinine, 188 >20 mg/dL 01/20/2021 [facility] Urine, Random 4:04 PM CDT CENTRAL LAB Albumin/Creati 16 <30 mg/g 01/20/2021 [facility] nine Ratio, 4:04 PM CDT CENTRAL LAB Urine, Random Specimen Anatomical Collection Method Collection Time Receive d Time (Source) Location / / Volume Laterality Urine Non-blood 01/20/2021 12:21 01/20/2021 Collection / PM CDT 12:21 PM CDT Unknown Prasanna Rivera MD LAB_1 Performing Organization Address [facility] Phon e Number [facility] C[facility]AL LAB [address] [address] (ABNORMAL) Uric Acid (01/17/2021 11:03 AM CDT) P athologist Signature Uric Acid 7.4 (H) 2.6 - 6.0 01/17/2021 [facility] mg/dL 3:16 PM CDT CENTRAL LAB Specimen Anatomical Collection Method / Collection Time Recei gil Time (Source) Location / Volume Laterality Blood Venipuncture / 01/17/2021 11:03 Unknown AM CDT 11:03 AM CDT Prasanna Rivera MD LAB_1 Performing Organization Address [facility] Phon e Number [facility] C[facility]AL [facility] [address] [address] (ABNORMAL) Basic Metabolic Panel (01/17/2021 11:03 AM CDT) Patholo gist Method Time Signature Sodium 138 136 - 145 01/17/2021 [facility] mmol/L 3:16 PM CDT CENTRAL LAB Potassium 3.2 (L) 3.5 - 5.1 01/17/2021 [facility] mmol/L 3:16 PM CDT CENTRAL LAB Chloride 100 98 - 109 01/17/2021 [facility] mmol/L 3:16 PM CDT CENTRAL LAB CO2 24 20 - 29 01/17/2021 [facility] mmol/L 3:16 PM CDT CENTRAL LAB Anion Gap 14 7 - 16 01/17/2021 [facility] mmol/L 3:16 PM CDT CENTRAL LAB Calcium 9.4 8.4 - [facility]17[facility]20[facility] 10.4 3:16 PM CDT CENTRAL LAB mg/dL BUN 25 7 - 26 01/17/2021 [facility] mg/dL 3:16 PM CDT CENTRAL LAB Creatinine 1.35 (H) 0.55 - 01/17/2021 [facility] 1.02 3:16 PM CDT CENTRAL LAB mg/dL GFR, Estimated 40 (L) >60 01/17/2021 [facility] mL/min/1. 3:16 PM CDT CENTRAL LAB 73m2 Glucose 246 (H) 70 - 100 01/17/2021 [facility] mg/dL 3:16 PM CDT CENTRAL LAB [...] Address City/State/ZIP Code Phon e Number [facility] C[facility]AL LAB [address] [address] SPECIALTY [address] [place] [address] LABORATORY documented in this encounter Visit Diagnoses Diagnosis Stage 3a chronic kidney disease (HRC) - Primary Essential hypertension (HRC) Unspecified essential hypertension Hyperuricemia Other abnormal blood chemistry documented in this encounter Care Teams Pusher Runner Relationship Specialty Start Date End Date Elyse Paredes MD PCP - General Family Practice 03/19/17 [address] [facility] [place] [address] documented as of this encounter
--- OUTSIDE RECORDS SUMMARY | 2022-07-09 14:32 | XMS_ITS | Encounter Summary ---
:1950 Author Organization [employer] Address [address] [place] [address] Care Team Providers Name Role Phone Elyse Paredes MD Primary Care Provider Reason for Visit Reason Comments Revisit Encounter Details Date Type Department Care Team Description 02/19/2020 [facility] Prasanna Rivera CKD ( chronic kidney disease) stage 3, GFR 30-59 ml/min (HRC) (Primary Dx); 401 Nephrology MD Angelica Hyperuricemia; [address] [facility] Essential hypertension; [place] [address] [place], [place] Microalbuminuria [phone] [id number] Social History Tobacco Use Types Packs/Day Years [...] OF SERVICE: 02/19/2020 NAME OF REQUESTING PHYSICIAN: Elyse Paredes MD [...] LAD stent in May of 2017 at [place]. She also underwent TAVR procedure in July [...] She has seen Dr. Johns of the [facility] in the past. PAST MEDICAL HISTORY: Past Medical History: Diagnosis Date ??? A-fib (HRC) ??? Breast cancer ([facility]) 2018 IDC - radiation ??? CAD (coronary artery disease) JEFFERSON to LAD ??? HTN (hypertension) ??? Hx of total knee arthroplasty Left knee ??? Hyperlipidemia ??? Nephrolithiasis ??? DEDE on CPAP ??? S/P TAVR (transcatheter aortic valve replacement) 07/2017, [facility] ??? Uncontrolled type 2 diabetes [...] file Gets together: Not on file Attends hinduism service: Not on file Active member of [...] 30 Tablet, Rfl: 11 Continuous Blood Gluc Dental Aide (DEXCOM G6 TENDER LABOR) JAY, Use as directed for continuous glucose monitoring., Disp: 1 Device, Rfl: 0 Continuous Blood Gluc Sensor (DEXCOM G6 SENSOR) [facility], Use as directed for continuous glucose monitoring. Change sensor every 10 days., Disp: 3 Each, Rfl: 5 Continuous Blood Gluc Transmit (DEXCOM G6 TRANSMITTER) [facility], Use as directed for continuous glucose monitoring. [...] Team Description 08/13/2022 Appointment Radiology Denise Aguirre, GROUND HOST/HOSTESS, ROLLER CLEANER [address] [place], [place] [address] (Wo rk) 08/13/2022 Appointment Hematology and Oncology Denise Aguirre, GROUND HOST/HOSTESS, ROLLER CLEANER [address] [place], [place] [address] (Wo rk) documented as [...] Results Microalbumin/Creatinine Ratio (05/28/2020 1:09 PM CDT) [facility] gist Method Time Signature Albumin, 74.5 mg/L 05/28/2020 [facility] Urine, Random 6:37 PM CDT CENTRAL LAB Creatinine, 283 >20 mg/dL 05/28/2020 [facility] Urine, Random 6:37 PM CDT CENTRAL LAB Albumin/Creati 26 <30 mg/g 05/28/2020 [facility] nine Ratio, 6:37 PM CDT CENTRAL LAB Urine, Random Specimen Anatomical Collection Method Collection Time Receive d Time (Source) Location / / Volume Laterality Urine Non-blood 05/28/2020 1:09 PM 0 1:09 Collection / CDT PM CDT Unknown Prasanna Rivera MD LAB_1 Performing Organization Address [facility]/ZIP [facility] Phon e Number [facility] CENTRAL LAB [address] [address] (ABNORMAL) Uric Acid (05/28/2020 1:09 PM CDT) P athologist Signature Uric Acid 6.2 (H) 2.6 - 6.0 05/28/2020 [facility] mg/dL 3:59 PM CDT CENTRAL LAB Specimen Anatomical Collection Method / Collection Time Recei gil Time (Source) Location / Volume Laterality Blood Venipuncture / 05/28/2020 1:09 05/28/2020 1:09 Unknown PM CDT PM CDT Prasanna Rivera MD LAB_1 Performing Organization Address [facility] Code Phon e Number [facility] CENTRAL LAB [address] [address] (ABNORMAL) Basic Metabolic Panel (05/28/2020 1:09 PM CDT) [facility] gist Method Time Signature Sodium 141 136 - 145 05/28/2020 [facility] mmol/L 3:59 PM CDT CENTRAL LAB Potassium 3.6 3.5 - 5.1 05/28/2020 [facility] mmol/L 3:59 PM CDT CENTRAL LAB Chloride 99 98 - 109 05/28/2020 [facility] mmol/L 3:59 PM CDT CENTRAL LAB CO2 29 20 - 29 05/28/2020 [facility] mmol/L 3:59 PM CDT CENTRAL LAB Anion Gap 13 7 - 16 05/28/2020 [facility] mmol/L 3:59 PM CDT CENTRAL LAB Calcium 9.6 8.4 - 05/28/2020 [facility] 10.4 3:59 PM CDT CENTRAL LAB mg/dL BUN 17 7 - 26 05/28/2020 [facility] mg/dL 3:59 PM CDT CENTRAL LAB Creatinine 1.28 (H) 0.55 - 05/28/2020 [facility] 1.02 3:59 PM CDT CENTRAL LAB mg/dL GFR, Estimated 43 (L) >60 05/28/2020 [facility] mL/min/1. 3:59 PM CDT CENTRAL LAB 73m2 Glucose 165 (H) 70 - 100 05/28/2020 [facility] mg/dL 3:59 PM CDT CENTRAL LAB Comment: [...] Organization Address City/State/ZIP Code Phon e Number [facility] CENTRAL LAB [address] [address] [address] [place] [id number] [place] [address] LABORATORY documented in this encounter Visit Diagnoses Diagnosis CKD (chronic kidney disease) stage 3, GF R 30-59 ml/min (HRC) - Primary Chronic kidney disease, Stage III (moder ate) Hyperuricemia Other abnormal blood chemistry Essential hypertension (HRC) Unspecified essential hypertension Microalbuminuria Proteinuria documented in this encounter Care Teams Real Estate Associate Relationship Specialty Start Date End Date Elyse Paredes MD PCP - General Family Practice 03/19/17 [address] [address] documented as of this encounter
--- OUTSIDE RECORDS SUMMARY | 2022-07-09 14:32 | XMS_ITS | Encounter Summary ---
:1950 Author Organization [employer] Address [address] [place] [address] Care Team Providers Name Role Phone Elyse Paredes MD Primary Care Provider Reason for Visit Reason Comments Orders Needed Encounter Details Date Type Department Care Team Description 07/24/2020 Telephone [facility] Nephrology Prasanna Rivera MD Orders Needed 205 [facility] [address] [place] [address] [place], [place] [phone] (Wo rk) Social History Tobacco Use Types [...] to advise and schedule lab Prasanna Brown TEGIC ACCOUNTS MANAGER Katya Garcia - 07/24/2020 9:30 AM CST Miscellaneous Questions [Appt Center: If this call is after 3 p.m., communicate to patient: If we are not able to get back to you by the end of the day and your symptoms worsen please contact the Careline at [phone] OR at .] Is this a question/concern or an FYI? Question/Concern What is your question or concern? Pt is looking to see if she neds orders prior to appt. Unsure If she needs them or not Have you recently been seen for this? No Is it okay to leave a detailed message on your voicemail? Yes Katya Garcia TEGIC ACCOUNTS MANAGER documented in this encounter Plan of Treatment Upcoming Encounters Date Type Specialty Care Team Description 08/13/2022 Appointment Radiology Denise Aguirre, HAIR ROOTING MACHINE OPERATOR, CERTIFIED ENERGY MANAGER [address] [place], [place] [address] (Wo rk) 08/13/2022 Appointment Hematology and Oncology Denise Aguirre, HAIR ROOTING MACHINE OPERATOR, CERTIFIED ENERGY MANAGER [address] [place], [place] [address] (Wo rk) documented as [...] on filedocumented in this encounter Care Teams Curtain Stitcher Relationship Specialty Start Date End Date Elyse Paredes MD PCP - General Family Practice 03/19/17 [address] [place] [address] documented as of this encounter
--- OUTSIDE RECORDS SUMMARY | 2022-07-09 14:32 | XMS_ITS | Encounter Summary ---
:1950 Author Organization [employer] Address [address] [place] [address] Care Team Providers Name Role Phone Elyse [...] Obesity, morbid, BMI 50 or higher (HR); [place] [address] [place], [place] Malignant neoplasm of left b reast in female, estrogen receptor positive, unspecified site of breast ([facility]); [phone] Essential hypertension; [phone] Coronary artery disease involving standing rock coronary artery of standing rock heart without angina pectoris (Work) Social History [...] from the original note were not included. TICISER Juan Cho MD - 08/12/2020 2:15 PM [...] to return visit. Video visit Clinician location: [facility] endocrinology [facility] specialty clinic [facility] Patient location: home Total visit time 40 minutes all of which was spent in education, discussion, answering all questions, gathering the data prior to talking to the patient discussing the above and/or coordination of care. Luis Fernando Cho MD This note created using speech-recognition software and may contain unintended word substitutions. TICISER documented in this encounter Plan of Treatment Upcoming Encounters Date Type Specialty Care Team Description 08/13/2022 Appointment Radiology Denise Aguirre, PLANISHER, LIVING SUPERVISOR [address] [place], [place] [address] (Wo rk) 08/13/2022 Appointment Hematology and Oncology Denise Aguirre APRN, LIVING SUPERVISOR [address] [place], [place] [address] (Wo rk) documented as [...] encounter Results (ABNORMAL) HgbA1c (10/07/2020 1:10 PM CAUSTICISER) [facility] Method Time Signature Hemoglobin A1C 7.7 (H) <=5.6 % 10/07/2020 [facility] 9:30 PM [facility]ER CENTRAL LAB Specimen Anatomical Collection Method / Collection Time Recei gil Time (Source) Location / Volume Laterality Blood Venipuncture / 10/07/2020 1:10 10/07/2020 1:10 Unknown PM CAUSTICISER PM CAUSTICISER Narrative [facility] CENTRAL LAB - 10/07/2020 9:30 PM CAUSTICISER For patients not previously diagnosed with diabetes: 5.7-6.4%: Increased risk for diabetes 6.5% and greater: Diagnostic for diabete s For patients diagnosed with diabetes: <8.0%: Goal of therapy for ages 18-75 Clinicians may recommend a higher or low er goal for specific individuals. Juan Cho MD LAB_1 Performing Organization Address [facility] CENTRAL LAB [address] [place] [address] TSH (10/07/2020 1:10 PM CAUSTICISER) [facility] Method Time Signature TSH, Sensitive 4.44 0.30 - 10/07/2020 [facility] 4.50 6:40 PM [facility] CENTRAL LAB uIU/mL Specimen Anatomical Collection Method / Collection Time Recei gil Time (Source) Location / Volume Laterality Blood Venipuncture / 10/07/2020 1:10 10/07/2020 1:10 Unknown PM CAUSTICISER PM CAUSTICISER Juan Cho MD LAB_1 Performing Organization Address [facility] Phon e Number [facility] CENTRAL LAB [address] [address] Hgb (10/07/2020 1:10 PM CAUSTICISER) athologist Signature Hemoglobin 13.3 12.0 - 15.5 10/07/2020 [facility] g/dL 1:13 PM [facility] LABORATORY Specimen Anatomical Collection Method / Collection Time Recei gil Time (Source) Location / Volume Laterality Blood Venipuncture / 10/07/2020 1:10 10/07/2020 1:10 Unknown PM CAUSTICISER PM CAUSTICISER Juan Cho MD LAB_1 Performing Organization Address City/[facility]/ZIP Code Phon e Number [facility] [address] [facility] [place] [address] ALT (SGPT) (10/07/2020 1:10 PM CAUSTICISER) athologist Signature ALT (SGPT) 26 0 - 55 U/L 10/07/2020 [facility] 7:06 PM CAUSTICISER CENTRAL LAB Specimen Anatomical Collection Method / Collection Time Recei gil Time (Source) Location / Volume Laterality Blood Venipuncture / 10/07/2020 1:10 10/07/2020 1:10 Unknown PM CAUSTICISER PM CAUSTICISER Juan Cho MD LAB_1 Performing Organization Address City/[facility]/ZIP Code Phon e Number [facility] CENTRAL LAB [address] [address] documented in this encounter Visit Diagnoses Diagnosis [...] Unspecified essential hypertension Coronary artery disease involving standing rock coronary artery of standing rock heart without angina pectoris (HRC) documented in this encounter Care Teams Lactation Nurse Relationship Specialty Start Date End Date Elyse Paredes MD PCP - General Family Practice 03/19/17 [address] [place] [address] documented as of this encounter
--- OUTSIDE RECORDS SUMMARY | 2022-07-09 14:32 | XMS_ITS | Encounter Summary ---
:1950 Author Organization [email or web address] Address [address], [place] [address] Care Team Providers Name Role Phone Elyse Paredes MD Primary Care Provider Encounter Details Date Type Department Care Team Description 08/06/2020 Lab Visit Specialty Center Dyslipid emia, goal LDL below 100; Laboratory Stage 3a chronic kidney dise ase; [address] Hyperuricemia; [place] [address] Essential hypertension; [phone] Microalbuminuri a Social History Tobacco Use Types Packs/Day Years Used Date Smoking Tobacco: Former Cigarettes Quit : 08/02/1981 Smokeless Tobacco: Never Alcohol Use Standard Drinks/Week Comments No 0 (1 standard drink = 0.6 oz pure alcoho l) Sex Assigned at Date Recorded Not on file documented as of this encounter Progress Notes Kikr Pino RN - 08/06/2020 2:00 PM CST [...] months Kirk Pino RN 08/07/2020, 9:14 AM DENT CARE AIDE Kirk Pino RN - 08/06/2020 2:00 PM CST F/U appt scheduled for 09/02/20. Labs done. DENT CARE AIDE Jacquelyn Matos RN - 08/06/2020 2:00 PM CST Will discuss at office visit on 08/12/2020 Jacquelyn Matos RN 08/07/2020, 11:36 AM DENT CARE AIDE Prasanna Rivera MD - 08/06/2020 2:00 PM CST Please let her know that the creatinine is stable at 1.27 estimated GFR is 43 mL/min. Sodium and potassium are normal. Uric acid is a little high, continue allopurinol. Prasanna Rivera MD DENT CARE AIDE documented in this encounter Plan of Treatment Upcoming Encounters Date Type Specialty Care Team Description 08/13/2022 Appointment Radiology Denise Aguirre APRN, COMPONENT ASSEMBLER SUPERVISOR [address] [place], [place] [address] (Wo rk) 08/13/2022 Appointment Hematology and Oncology Denise Aguirre APRN, COMPONENT ASSEMBLER SUPERVISOR [address] [place], [place] [address] (Wo rk) documented as [...] goal LDL Results for this DIRECT MEASURED RESIDENT CARE AIDE below 100 procedure ar e in the results section. TSH, SENSITIVE Routine 08/06/2020 2:01 PM Dyslipidemia, goal L DL Results for this RESIDENT CARE AIDE below 100 procedure are i n the results section. BASIC METABOLIC Routine 08/06/2020 2:01 PM Stage 3a chronic Re sults for this PANEL RESIDENT CARE AIDE kidney disease procedure are in the results section. HEMOGLOBIN, BLOOD Routine 08/06/2020 2:01 PM Dyslipidemia, goa l LDL Results for this RESIDENT CARE AIDE below 100 procedure are i n the results section. ALBUMIN/CREAT Routine 08/06/2020 2:01 PM Dyslipidemia, goal LD L Results for this RATIO RESIDENT CARE AIDE below 100 procedure are i n the results section. HGB A1C Routine 08/06/2020 2:01 PM Dyslipidemia, goal LDL Results for this RESIDENT CARE AIDE below 100 procedure are i n the results section. URIC ACID Routine 08/06/2020 2:01 PM Hyperuricemia Results for this RESIDENT CARE AIDE procedure are i n the results section. ALT (SGPT) Routine 08/06/2020 2:01 PM Dyslipidemia, goal LDL Results for this RESIDENT CARE AIDE below 100 procedure are i n the results section. documented in this encounter Results (ABNORMAL) Uric Acid (08/06/2020 2:01 PM RESIDENT CARE AIDE) P athologist Signature Uric Acid 6.7 (H) 2.6 - 6.0 08/06/2020 [facility] mg/dL 5:27 PM RESIDENT CARE AIDE CENTRAL LAB Specimen Anatomical Collection Method / Collection Time Recei gil Time (Source) Location / Volume Laterality Blood Venipuncture / 08/06/2020 2:01 08/06/2020 2:01 Unknown PM RESIDENT CARE AIDE PM RESIDENT CARE AIDE Prasanna Rivera MD LAB_1 Performing Organization Address City/State/ZIP Code Phon e Number [facility] CENTRAL LAB [address] [address] (ABNORMAL) Basic Metabolic Panel (08/06/2020 2:01 PM RESIDENT CARE AIDE) [facility] Method Time Signature Sodium 136 136 - 145 08/06/2020 [facility] mmol/L 5:27 PM RESIDENT CARE AIDE CENTRAL LAB Potassium 3.5 3.5 - 5.1 08/06/2020 [facility] mmol/L 5:27 PM RESIDENT CARE AIDE CENTRAL LAB Chloride 101 98 - 109 08/06/2020 [facility] mmol/L 5:27 PM RESIDENT CARE AIDE CENTRAL LAB CO2 23 20 - 29 08/06/2020 [facility] mmol/L 5:27 PM [facility] CENTRAL LAB Anion Gap 12 7 - 16 08/06/2020 [facility] mmol/L 5:27 PM RESIDENT CARE AIDE CENTRAL LAB Calcium 9.2 8.4 - 08/06/2020 [facility] 10.4 5:27 PM [facility] CENTRAL LAB mg/dL BUN 27 (H) 7 - 26 08/06/2020 [facility] mg/dL 5:27 PM [facility] CENTRAL LAB Creatinine 1.27 (H) 0.55 - 08/06/2020 [facility] 1.02 5:27 PM [facility] CENTRAL LAB mg/dL GFR, Estimated 43 (L) >60 08/06/2020 [facility] mL/min/1. 5:27 PM [facility] CENTRAL LAB 73m2 Glucose 174 (H) 70 - 100 08/06/2020 [facility] mg/dL 5:27 PM [facility] CENTRAL LAB Comment: The given reference range is fo r the fasting state. Non-fasting reference range for glucose is 70 - 180 mg/dL. Hours Fasting 10 08/06/2020 5:27 PM [facility] LABORATORY Specimen Anatomical Collection Method / Collection Time Recei gil Time (Source) Location / Volume Laterality Blood Venipuncture / 08/06/2020 2:01 08/06/2020 2:01 Unknown PM RESIDENT CARE AIDE PM RESIDENT CARE AIDE Prasanna Rivera MD LAB_1 Performing Organization Address City/[facility]/ZIP Code Phon e Number [facility] CENTRAL LAB [address] [address] SPECIALTY CENTER [address] [place] [address] [phone] LABORATORY TSH (08/06/2020 2:01 PM RESIDENT CARE AIDE) [facility] Method Time Signature TSH, Sensitive 3.04 0.30 - 08/06/2020 [facility] 4.50 5:21 PM RESIDENT CARE AIDE CENTRAL LAB uIU/mL Specimen Anatomical Collection Method / Collection Time Recei gil Time (Source) Location / Volume Laterality Blood Venipuncture / 08/06/2020 2:01 08/06/2020 2:01 Unknown PM RESIDENT CARE AIDE PM RESIDENT CARE AIDE Juan Cho MD LAB_1 Performing Organization Address [facility]/ZIP Code Phon e Number [facility] CENTRAL LAB [address] [address] Microalb / Creat Ratio (08/06/2020 2:01 PM RESIDENT CARE AIDE) [facility] Method Time Signature Albumin, 19.2 mg/L 08/06/2020 [facility] Urine, Random 6:45 PM RESIDENT CARE AIDE CENTRAL LAB Creatinine, 189 >20 mg/dL 08/06/2020 [facility] Urine, Random 6:45 PM RESIDENT CARE AIDE CENTRAL LAB Albumin/Creati 10 <30 mg/g 08/06/2020 [facility] nine Ratio, 6:45 PM RESIDENT CARE AIDE CENTRAL LAB Urine, Random Specimen Anatomical Collection Method Collection Time Receive d Time (Source) Location / / Volume Laterality Urine Non-blood 08/06/2020 2:01 PM 2:01 Collection / RESIDENT CARE AIDE PM RESIDENT CARE AIDE Unknown Juan Cho MD LAB_1 Performing Organization Address [facility]/ZIP [facility] Phon e Number [facility] CENTRAL LAB [address] [address] ALT (SGPT) (08/06/2020 2:01 PM RESIDENT CARE AIDE) athologist Signature ALT (SGPT) 27 0 - 55 U/L 08/06/2020 [facility] 5:27 PM RESIDENT CARE AIDE CENTRAL LAB Specimen Anatomical Collection Method / Collection Time Recei gil Time (Source) Location / Volume Laterality Blood Venipuncture / 08/06/2020 2:01 08/06/2020 2:01 Unknown PM RESIDENT CARE AIDE PM RESIDENT CARE AIDE Juan Cho MD LAB_1 Performing Organization Address City/[facility]/ZIP [facility] Phon e Number [facility] CENTRAL LAB [address] [address] Hgb (08/06/2020 2:01 PM RESIDENT CARE AIDE) P athologist Signature Hemoglobin 13.7 12.0 - 15.5 08/06/2020 [facility] g/dL 2:14 PM RESIDENT CARE AIDE CENTER LABORATORY Specimen Anatomical Collection Method / Collection Time Recei gil Time (Source) Location / Volume Laterality Blood Venipuncture / 08/06/2020 2:01 08/06/2020 2:01 Unknown PM RESIDENT CARE AIDE PM RESIDENT CARE AIDE Juan Cho MD LAB_1 Performing Organization Address [facility] Phon e Number SPECIALTY CENTER LABORATORY [address] [place] [address] (ABNORMAL) HgbA1c (08/06/2020 2:01 PM RESIDENT CARE AIDE) [facility] Method Time Signature Hemoglobin A1C 8.2 (H) <=5.6 % 08/06/2020 [facility] 7:02 PM RESIDENT CARE AIDE CENTRAL LAB Specimen Anatomical Collection Method / Collection Time Recei gil Time (Source) Location / Volume Laterality Blood Venipuncture / 08/06/2020 2:01 08/06/2020 2:01 Unknown PM RESIDENT CARE AIDE PM RESIDENT CARE AIDE Narrative [facility] CENTRAL LAB - 08/06/2020 7:02 PM RESIDENT CARE AIDE For patients not previously diagnosed with diabetes: 5.7-6.4%: Increased risk for diabetes 6.5% and greater: Diagnostic for diabete s For patients diagnosed with diabetes: <8.0%: Goal of therapy for ages 18-75 Clinicians may recommend a higher or low er goal for specific individuals. Juan Cho MD LAB_1 Performing Organization Address City/[facility] Code Phon e Number [facility] CENTRAL LAB [address] [address] LDL Direct (08/06/2020 2:01 PM RESIDENT CARE AIDE) P athologist Signature LDL, Direct 82 <=130 08/06/2020 [facility] mg/dL 5:27 PM RESIDENT CARE AIDE CENTRAL LAB Specimen Anatomical Collection Method / Collection Time Recei gil Time (Source) Location / Volume Laterality Blood Venipuncture / 08/06/2020 2:01 08/06/2020 2:01 Unknown PM RESIDENT CARE AIDE PM RESIDENT CARE AIDE Juan Cho MD LAB_1 Performing Organization Address City/State/ZIP Code Phon e Number [employer] CENTRAL LAB [address] [address] documented in this encounter Visit Diagnoses Diagnosis Dyslipidemia, goal LDL below 100 (HRC) Other and unspecified hyperlipidemia Stage 3a chronic kidney disease (HRC) Hyperuricemia Other abnormal blood chemistry Essential hypertension (HRC) Unspecified essential hypertension Microalbuminuria Proteinuria documented in this encounter Care Teams Angiography Nurse Relationship Specialty Start Date End Date Eylse Paredes MD PCP - General Family Practice 03/19/17 [address] [place] [address] documented as of this encounter
--- OUTSIDE RECORDS SUMMARY | 2022-07-09 14:32 | XMS_ITS | Encounter Summary ---
:1950 Author Organization [employer] Address [address] [place] [address] Care Team Providers Name Role Phone Elyse Paredes MD Primary Care Provider Reason for Visit Reason Comments Revisit Encounter Details Date Type Department Care Team Description 06/03/2020 Telemedicine [facility] Nephrology Prasanna Rivera Stage 3a chronic kidney dise ase (Primary Dx); 205 [facility]. MD Angelica Essential hypertension; [place] [address] 205 [facility] Microalbuminuria; [phone] [place], [place] Hyperuricemia [address] Social History Tobacco Use Types Packs/Day Years [...] next appointment. See me in 3 months ER GLUE SPREADER documented in this encounter Progress Notes Prasanna [...] LAD stent in May of 2017 at [facility]. She also underwent TAVR procedure in July [...] She has seen Dr. Johns of the [facility] [place] in the past. PAST MEDICAL HISTORY: Past Medical History: Diagnosis Date ??? A-fib (HRC) ??? Breast cancer (HRC) 2018 [facility] - radiation ??? CAD (coronary artery disease) (HRC) JEFFERSON to LAD ??? HTN (hypertension) (HRC) ??? Hx of total knee arthroplasty Left knee ??? Hyperlipidemia (HRC) ??? Nephrolithiasis ??? DEDE on CPAP ??? S/P TAVR (transcatheter aortic valve replacement) 07/2017, [facility] ??? Uncontrolled type 2 diabetes mellitus, with long-term current use of insulin ([facility]) 03/19/2017 ALLERGIES: is allergic to erythromycin; [...] file Gets together: Not on file Attends jainism service: Not on file Active member of [...] Tablet, Rfl: 11 ??? Continuous Blood Gluc Leave Coordinator (DEXCOM G6 RADIOPHARMACIST) JAY, Use as directed for continuous glucosemonitoring., [...] See above for A/P Prasanna Rivera MD ER GLUE SPREADER documented in this encounter Plan of Treatment Upcoming Encounters Date Type Specialty Care Team Description 08/13/2022 Appointment Radiology Denise Aguirre, TAB CUTTING MACHINE OPERATOR, CRM MARKETING MANAGER [address] [address] (Wo rk) 08/13/2022 Appointment Hematology and Oncology Denise Aguirer, TAB CUTTING MACHINE OPERATOR, CRM MARKETING MANAGER [address] [address] (Wo rk) documented as of this [...] Results (ABNORMAL) Uric Acid (08/06/2020 2:01 PM VENEER GLUE SPREADER) P athologist Signature Uric Acid 6.7 (H) 2.6 - 6.0 08/06/2020 [facility] mg/dL 5:27 PM VENEER GLUE SPREADER CENTRAL LAB Specimen Anatomical Collection Method / Collection Time Recei gil Time (Source) Location / Volume Laterality Blood Venipuncture / 08/06/2020 2:01 08/06/2020 2:01 Unknown PM VENEER GLUE SPREADER PM VENEER GLUE SPREADER Prasanna Rivera MD LAB_1 Performing Organization Address City/State/ZIP Code Phon e Number [facility]AL LAB [address] [address] (ABNORMAL) Basic Metabolic Panel (08/06/2020 2:01 PM VENEER GLUE SPREADER) [facility] gist Method Time Signature Sodium 136 136 - 145 08/06/2020 [facility] mmol/L 5:27 PM VENEER GLUE SPREADER CENTRAL LAB Potassium 3.5 3.5 - 5.1 08/06/2020 [facility] mmol/L 5:27 PM VENEER GLUE SPREADER CENTRAL LAB Chloride 101 98 - 109 08/06/2020 [facility] mmol/L 5:27 PM VENEER GLUE SPREADER CENTRAL LAB CO2 23 20 - 29 08/06/2020 [facility] mmol/L 5:27 PM VENEER GLUE SPREADER CENTRAL LAB Anion Gap 12 7 - 16 08/06/2020 [facility] mmol/L 5:27 PM VENEER GLUE SPREADER CENTRAL LAB Calcium 9.2 8.4 - 08/06/2020 [facility] 10.4 5:27 PM VENEER GLUE SPREADER CENTRAL LAB mg/dL BUN 27 (H) 7 - 26 08/06/2020 [facility] mg/dL 5:27 PM VENEER GLUE SPREADER CENTRAL LAB Creatinine 1.27 (H) 0.55 - 08/06/2020 [facility] 1.02 5:27 PM VENEER GLUE SPREADER CENTRAL LAB mg/dL GFR, Estimated 43 (L) >60 08/06/2020 [facility] mL/min/1. 5:27 PM VENEER GLUE SPREADER CENTRAL LAB 73m2 Glucose 174 (H) 70 - 100 08/06/2020 [facility] mg/dL 5:27 PM VENEER GLUE SPREADER CENTRAL LAB Comment: The given reference range is fo r the fasting state. Non-fasting reference range for glucose is 70 - 180 mg/dL. Hours Fasting 10 08/06/2020 5:27 PM VENEER GLUE SPREADER [facility] LABORATORY Specimen Anatomical Collection Method / Collection Time Recei gil Time (Source) Location / Volume Laterality Blood Venipuncture / 08/06/2020 2:01 08/06/2020 2:01 Unknown PM VENEER GLUE SPREADER PM VENEER GLUE SPREADER Prasanna Rivera MD LAB_1 Performing Organization Address City/State/ZIP Code Phon e Number [facility] CENTRAL LAB [address] [address] [facility] [address] [place] [address] LABORATORY documented in this encounter Visit Diagnoses Diagnosis Stage 3a chronic kidney disease (HRC) - Primary Essential hypertension (HRC) Unspecified essential hypertension Microalbuminuria Proteinuria Hyperuricemia Other abnormal blood chemistry documented in this encounter Care Teams Licensed Insurance Agent Relationship Specialty Start Date End Date Elyse Paredes MD PCP - General Family Practice 03/19/17 [address] [address] documented as of this encounter
--- OUTSIDE RECORDS SUMMARY | 2022-07-09 14:32 | XMS_ITS | Encounter Summary ---
:1950 Author Organization [employer] Address [address] [place] [address] Care Team Providers Name Role Phone Elyse [...] [address] injection [[place] [address] [place], [place] Name: OZEMPIC 1MG PER [phone] DOSE (2X2MG PEN)]) [phone] (Wo rk) Social History Tobacco Use Types [...] a week. (changed but equivalent) Powered by [employer], Reference: [id number], 10/23/2020 6:07:35 PM CDT, Pool: MARY YANEZ RN ([id number]) documented in this encounter Plan of Treatment Upcoming Encounters Date Type Specialty Care Team Description 08/13/2022 Appointment Radiology Denise Aguirre APRN, HANDYMAN [address] [place], [place] [address] (Tonio sorenson) 08/13/2022 Appointment Hematology and Oncology Denise Aguirre APRN, HANDYMAN [address] [place], [place] [address] (Tonio sorenson) documented as [...] on filedocumented in this encounter Care Teams Porcelain Enameling Supervisor Relationship Specialty Start Date End Date Elyse Paredes MD PCP - General Family Practice 03/19/17 [address] [place] [address] documented as of this encounter
--- OUTSIDE RECORDS SUMMARY | 2022-07-09 14:32 | XMS_ITS | Encounter Summary ---
:1950 Author Organization [employer] Address [address] [place] [address] Care Team Providers Name Role Phone Elyse Paredes MD Primary Care Provider Reason for Visit Reason Comments Medication Questions Encounter Details Date Type Department Care Team Description 03/25/2020 Telephone [facility] [place] Nephrology Prasanna Rivera, Medication Questions 205 [facility] [place] [address] 205 [facility] [phone] [place], [place] [address] (Wo rk) Social History [...] DAILY. PT STATES THAT RECENT REFILL AT [facility] DIDN'T REFLECT ADJUSTMENT IN DOSAGE THOUGH AMOUNT IN REFILL WAS STILL JUST FOR A HALF TABLET A DAY. PLEASE ADVISE How often do you take it? ONCE DAILY Who prescribed it? Prasanna Rivera MD Is it okay to leave a detailed message on your voicemail? Yes For this medication, patient would like it filled at the pharmacy listed in Meds & Orders. [Playground Supervisor/Appt Center: Verify the pharmacy patient would like to use for this request is highlighted in blue in Pharmacy Selection under Meds & Orders] Brendan Mckeon documented in this encounter Plan of Treatment Upcoming Encounters Date Type Specialty Care Team Description 08/13/2022 Appointment Radiology Denise Aguirre APRN, SAP BUSINESS OBJECTS DEVELOPER [address] [place], [place] [address] (Wo rk) 08/13/2022 Appointment Hematology and Oncology Denise Aguirre APRN, SAP BUSINESS OBJECTS DEVELOPER [address] [place], [place] [address] (Wo rk) documented as [...] on filedocumented in this encounter Care Teams Pipe Fitter Supervisor Maintenance Relationship Specialty Start Date End Date Elyse Paredes MD PCP - General Family Practice 03/19/17 [address] [place] [address] documented as of this encounter
--- OUTSIDE RECORDS SUMMARY | 2022-07-09 14:32 | XMS_ITS | Encounter Summary ---
:1950 Author Organization [employer] Address [address] [place] [address] Care Team Providers Name Role Phone Elyse Paredes MD Primary Care Provider Reason for Visit Reason Comments LAB TESTS, NOS Encounter Details Date Type Department Care Team Description 11/04/2020 Telephone [facility] 401 Freya Cho MD LAB TESTS, NOS Endocr[facility]ology [facility] [address] [place] [address] [place] [address] [phone] Social History Tobacco Use Types Packs/Day Years [...] Description 08/13/2022 Appointment Radiology Denise Aguirre, GRIFFIN, PURIFYING PLANT OPERATOR [address] [place], [place] [address] (Wo rk) 08/13/2022 Appointment Hematology and Oncology Denise Aguirre APRN, PURIFYING PLANT OPERATOR [address] [place], [place] [address] (Wo rk) documented as [...] (ABNORMAL) Hgb A1C (11/21/2020 12:53 PM CDT) [facility] gist Method Time Signature Hemoglobin A1C 7.6 (H) <=5.6 % 11/21/2020 [facility] 4:46 PM CDT CENTRAL LAB Specimen Anatomical Collection Method / Collection Time Recei gil Time (Source) Location / Volume Laterality Blood Venipuncture / 11/21/2020 12:53 Unknown PM CDT 12:53 PM CDT [facility] CENTRAL LAB - 11/21/2020 4:46 PM CDT For patients not previously diagnosed with diabetes: 5.7-6.4%: Increased risk for diabetes 6.5% and greater: Diagnostic for diabete s For patients diagnosed with diabetes: <8.0%: Goal of therapy for ages 18-75 Clinicians may recommend a higher or low er goal for specific individuals. Juan Cho MD LAB_1 Performing Organization Address City/State/ZIP Code Phon e Number [facility] CENTRAL LAB [address] [phone] documented in this encounter Visit Diagnoses Diagnosis Uncontrolled type 2 diabetes mellitus wi th hyperosmolarity without coma, with long-term current use of insulin (HRC) - Primary documented in this encounter Care Teams Vp Construction Relationship Specialty Start Date End Date Elyse Paredes MD PCP - General Family Practice 03/19/17 [address] [place] [address] documented as of this encounter
--- OUTSIDE RECORDS SUMMARY | 2022-07-09 14:32 | XMS_ITS | Encounter Summary ---
:1950 Author Organization [facility] Address [address] [place] [address] Care Team Providers Name Role Phone Elyse Paredes MD Primary Care Provider Reason for Visit Reason Comments MEDICATION REVIEW AND EDUCATION Encounter Details Date Type Department Care Team Description 03/18/2020 [facility] Evelio Vega Dys lipidemia, goal LDL MTM D, PharmD below 100 (Primary Dx) [address] [place] [address] [id number] Social History Tobacco Use Types Packs/Day Years [...] cardiology, nephrology, oncology, endocrinology. Persistent atrial fibrillation. [id number] score of 5. Failed DCCV. - warfarin [...] Recommend she discuss rosuvastatin dose increase with picture frames inspector. Follow up with [facility] Pharmacist in 1 yr. Updated EPIC med [...] Description 08/13/2022 Appointment Radiology Denise Aguirre, HAND BINDER STRIPPER, PSYCHOLOGY LECTURER [address] [place], [place] [address] (Wo rk) 08/13/2022 Appointment Hematology and Oncology Denise Aguirre APRN, PSYCHOLOGY LECTURER [address] [place], [place] [address] (Wo rk) documented as [...] hyperlipidemia documented in this encounter Care Teams Spinner Frame Relationship Specialty Start Date End Date Elyse Paredes MD PCP - General Family Practice 03/19/17 [address] [place], [place] [id number] documented as of this encounter
--- OUTSIDE RECORDS SUMMARY | 2022-07-09 14:32 | XMS_ITS | Encounter Summary ---
:1950 Author Organization [facility] Address [address] [place] [address] Care Team Providers Name Role Phone Elyse [...] [address] (DEXCOM G6 SENSOR) [place] [address] [place], [place] [Pharmacy Med Name: [phone] [id number] DEXCOM G6 SENSOR MISC]; [phone] (Wo rk) Continuous Blood Gluc Transmit (DEXCOM G6 TRANSMITTER) [facility] [Pharmacy Med N loraine: DEXCOM G6 TRANS [...] sensor every 10 days. (changed) Powered by [employer], Reference: [id number], 04/05/2020 10:55:42 AM CDT, Pool: ENDO REFILL PA[place]TON ([id number]) Continuous Blood Gluc Transmit (DEXCOM G6 TRANSMITTER) [...] change every 3 months. (changed) Powered by [employer], Reference: [id number], 04/05/2020 10:55:42 AM CDT, Pool: MARY YANEZ RN ([id number]) documented in this encounter Plan of Treatment Upcoming Encounters Date Type Specialty Care Team Description 08/13/2022 Appointment Radiology Denise Aguirre APRN, SR. SOCIAL MEDIA & MOBILE MANAGER [address] [place], [place] [address] (Wo rk) 08/13/2022 Appointment Hematology and Oncology Denise Aguirre APRN, SR. SOCIAL MEDIA & MOBILE MANAGER [address] [place], [place] [address] (Wo rk) documented as [...] insulin documented in this encounter Care Teams Stamper Blocker Relationship Specialty Start Date End Date Elyse Paredes MD PCP - General Family Practice 03/19/17 [address] [place] [address] documented as of this encounter
--- OUTSIDE RECORDS SUMMARY | 2022-07-09 14:32 | XMS_ITS | Encounter Summary ---
:1950 Author Organization [employer] Address [address] [place] [address] Care Team Providers Name Role Phone Elyse Paredes MD Primary Care Provider Encounter Details Date Type Department Care Team Description 10/07/2020 Lab Visit Specialty Center Uncontro lled type 2 diabetes mellitus, with long-term current use of insulin ([facility]); Laboratory Stage 3a chronic kidney dise ase ([facility]) 401 [facility] [place] [address] Social History Tobacco Use Types [...] 10/15. Kirk Pino RN 10/08/2020, 9:27 AM IN COMPANION Prasanna Rivera MD - 10/07/2020 1:00 PM [...] looks normal this time. Prasanna Rivera MD IN COMPANION documented in this encounter Plan of Treatment Upcoming Encounters Date Type Specialty Care Team Description 08/13/2022 Appointment Radiology Denise Aguirre, MUSIC ORCHESTRATOR, MECHANIST [address] [place], [place] [address] (Wo rk) 08/13/2022 Appointment Hematology and Oncology Denise Aguirre, MUSIC ORCHESTRATOR, MECHANIST [address] [place], [place] [address] (Wo rk) documented as [...] PM Uncontrolled type 2 Results for this LIVE IN COMPANION diabetes mellitus, procedure are in with long-term the results current use of section. insulin ([facility]) BASIC METABOLIC Routine 10/07/2020 1:10 PM Stage 3a chronic Re sults for this PANEL LIVE IN COMPANION kidney disease ([facility]) procedu re are in the results section. HEMOGLOBIN, BLOOD Routine 10/07/2020 1:10 PM Uncontrolled type 2 Results for this LIVE IN COMPANION diabetes mellitus, procedure are in with long-term the results current use of section. insulin (HRC) ALBUMIN/CREAT RATIO Routine 10/07/2020 1:10 PM Stage 3a chroni c Results for this LIVE IN COMPANION kidney disease (HRC) procedu re are in the results section. HGB A1C Routine 10/07/2020 1:10 PM Uncontrolled type 2 Re sults for this LIVE IN COMPANION diabetes mellitus, procedure are in with long-term the results current use of section. insulin (HRC) URIC ACID Routine 10/07/2020 1:10 PM Stage 3a chronic Resul ts for this LIVE IN COMPANION kidney disease (HRC) procedu re are in the results section. ALT (SGPT) Routine 10/07/2020 1:10 PM Uncontrolled type 2 Re sults for this LIVE IN COMPANION diabetes mellitus, procedure are in with long-term the results current use of section. insulin (HRC) documented in this encounter Results Microalbumin/Creatinine Ratio (10/07/2020 1:10 PM LIVE IN COMPANION) Patholo gist Method Time Signature Albumin, 15.8 mg/L 10/07/2020 [place] Urine, Random 6:46 PM LIVE IN COMPANION CENTRAL LAB Creatinine, 175 >20 mg/dL 10/07/2020 [place] Urine, Random 6:46 PM LIVE IN COMPANION CENTRAL LAB Albumin/Creati 9 <30 mg/g 10/07/2020 [facility] nine Ratio, 6:46 PM LIVE IN COMPANION CENTRAL LAB Urine, Random Specimen Anatomical Collection Method Collection Time Receive d Time (Source) Location / / Volume Laterality Urine Non-blood 10/07/2020 1:10 PM 1:10 Collection / LIVE IN COMPANION PM LIVE IN COMPANION Unknown Prasanna Rivera MD LAB_1 Performing Organization Address City/State/ZIP Code Phon e Number [place] CENTRAL LAB [address] [address] Uric Acid (10/07/2020 1:10 PM LIVE IN COMPANION) P athologist Signature Uric Acid 6.0 2.6 - 6.0 10/07/2020 [place] mg/dL 7:06 PM LIVE IN COMPANION CENTRAL LAB Specimen Anatomical Collection Method / Collection Time Recei gil Time (Source) Location / Volume Laterality Blood Venipuncture / 10/07/2020 1:10 10/07/2020 1:10 Unknown PM LIVE IN COMPANION PM LIVE IN COMPANION Prasanna Rivera MD LAB_1 Performing Organization Address City/State/ZIP Code Phon e Number [facility] CENTRAL LAB [address] [address] (ABNORMAL) Basic Metabolic Panel (10/07/2020 1:10 PM LIVE IN COMPANION) [facility] Method Time Signature Sodium 138 136 - 145 10/07/2020 [facility] mmol/L 7:06 PM LIVE IN COMPANION CENTRAL LAB Potassium 3.4 (L) 3.5 - 5.1 10/07/2020 [facility] mmol/L 7:06 PM LIVE IN COMPANION CENTRAL LAB Chloride 100 98 - 109 10/07/2020 [facility] mmol/L 7:06 PM LIVE IN COMPANION CENTRAL LAB CO2 23 20 - 29 10/07/2020 [facility] mmol/L 7:06 PM LIVE IN COMPANION CENTRAL LAB Anion Gap 15 7 - 16 10/07/2020 [facility] mmol/L 7:06 PM LIVE IN COMPANION CENTRAL LAB Calcium 9.4 8.4 - 10/07/2020 [facility] 10.4 7:06 PM [facility] CENTRAL LAB mg/dL BUN 18 7 - 26 10/07/2020 [facility] mg/dL 7:06 PM [facility] CENTRAL LAB Creatinine 1.14 (H) 0.55 - 10/07/2020 [facility] 1.02 7:06 PM [facility] CENTRAL LAB mg/dL GFR, Estimated 50 (L) >60 10/07/2020 [facility] mL/min/1. 7:06 PM [facility] CENTRAL LAB 73m2 Glucose 220 (H) 70 - 100 10/07/2020 [facility] mg/dL 7:06 PM [facility] CENTRAL LAB Comment: The given reference range is fo r the fasting state. Non-fasting reference range for glucose is 70 - 180 mg/dL. Hours Fasting 12 10/07/2020 7:06 PM [facility] LABORATORY Specimen Anatomical Collection Method / Collection Time Recei gil Time (Source) Location / Volume Laterality Blood Venipuncture / 10/07/2020 1:10 10/07/2020 1:10 Unknown PM LIVE IN COMPANION PM LIVE IN COMPANION Narrative [facility] CENTRAL LAB - 10/07/2020 7:06 PM LIVE IN COMPANION The National Kidney Disease Education Pr ogram suggests measuring Cystatin C in patients with eGFRcrea of 45 to 59 ml/mi n/1.73^2 who do not have other markers of kidney damage (i.e. elevated urine Album in/Creatinine Ratio or a prior Cystatin C confirming the presence of chronic kidne y disease). Prasanna Rivera MD LAB_1 Performing Organization Address [facility] e Number [facility] CENTRAL LAB [address] [address] [facility] [place] [address] LABORATORY (ABNORMAL) HgbA1c (10/07/2020 1:10 PM LIVE IN COMPANION) [facility] Method Time Signature Hemoglobin A1C 7.7 (H) <=5.6 % 10/07/2020 [facility] 9[facility]30 PM LIVE IN COMPANION CENTRAL LAB Specimen Anatomical Collection Method / Collection Time Recei gil Time (Source) Location / Volume Laterality Blood Venipuncture / 10/07/2020 1:10 10/07/2020 1:10 Unknown PM LIVE IN COMPANION PM LIVE IN COMPANION Narrative [facility] CENTRAL LAB - 10/07/2020 9:30 PM LIVE IN COMPANION For patients not previously diagnosed with diabetes: 5.7-6.4%: Increased risk for diabetes 6.5% and greater: Diagnostic for diabete s For patients diagnosed with diabetes: <8.0%: Goal of therapy for ages 18-75 Clinicians may recommend a higher or low er goal for specific individuals. Juan Cho MD LAB_1 Performing Organization Address [facility] e Number [facility] CENTRAL LAB [address] [address] TSH (10/07/2020 1:10 PM LIVE IN COMPANION) [facility] [facility] Method Time Signature TSH, Sensitive 4.44 0.30 - 10/07/2020 [facility] 4.50 6:40 PM LIVE IN COMPANION CENTRAL LAB uIU/mL Specimen Anatomical Collection Method / Collection Time Recei gil Time (Source) Location / Volume Laterality Blood Venipuncture / 10/07/2020 1:10 10/07/2020 1:10 Unknown PM LIVE IN COMPANION PM LIVE IN COMPANION Juan Cho MD LAB_1 Performing Organization Address [facility]/ZIP Code Phon e Number [facility] CENTRAL LAB [address] [address] Hgb (10/07/2020 1:10 PM LIVE IN COMPANION) P athologist Signature Hemoglobin 13.3 12.0 - 15.5 10/07/2020 [facility] g/dL 1:13 PM LIVE IN COMPANION CENTER LABORATORY Specimen Anatomical Collection Method / Collection Time Recei gil Time (Source) Location / Volume Laterality Blood Venipuncture / 10/07/2020 1:10 10/07/2020 1:10 Unknown PM LIVE IN COMPANION PM LIVE IN COMPANION Juan Cho MD LAB_1 Performing Organization Address City/[facility]/ZIP Code Phon e Number [facility] LABORATORY [address] [place] [address] ALT (SGPT) (10/07/2020 1:10 PM LIVE IN COMPANION) P athologist Signature ALT (SGPT) 26 0 - 55 U/L 10/07/2020 [facility] 7:06 PM LIVE IN COMPANION CENTRAL LAB Specimen Anatomical Collection Method / Collection Time Recei gil Time (Source) Location / Volume Laterality Blood Venipuncture / 10/07/2020 1:10 10/07/2020 1:10 Unknown PM LIVE IN COMPANION PM LIVE IN COMPANION Juan Cho MD LAB_1 Performing Organization Address [facility]/ZIP [facility] [place] [place] Phon e Number [facility] [address] [address] documented in this encounter Visit Diagnoses Diagnosis Uncontrolled type 2 diabetes mellitus, w ith long-term current use of insulin Stage 3a chronic kidney disease (HRC) documented in this encounter Care Teams Wound Care Coordinator Relationship Specialty Start Date End Date Elyse Paredes MD PCP - General Family Practice 03/19/17 [address] [place] [address] documented as of this encounter
--- OUTSIDE RECORDS SUMMARY | 2022-07-09 14:32 | XMS_ITS | Encounter Summary ---
:1950 Author Organization [employer] Address [address] [place] [address] Care Team Providers Name Role Phone Elyse Paredes MD Primary Care Provider Reason for Visit Reason Onset Date Comments Refill 07/15/2020 allopurinol (ZYLOPRI M) 100 MG tablet Encounter Details Date Type Department Care Team Description 07/15/2020 Refill [facility] Nephrology Deepti Rivera, Refill (allopurinol [address] (ZYLOPRIM) 100 [place] [address] tablet) [phone] [place], [place] [address] (Wo rk) Social History [...] SO. Kirk Pino RN 07/15/2020, 12:11 PM CIATE DIRECTOR OF NURSING Interface, Out Surescripts Prov Query - 07/15/2020 [...] allopurinol (ZYLOPRIM) 100 MG tablet Powered by [employer], Reference: [id number], 07/15/2020 11:53:00 AM ASSOCIATE DIRECTOR OF NURSING, Pool: Nicole ([id number]) CIATE DIRECTOR OF NURSING Interface, Out Surescripts Prov Query - 07/15/2020 11:53 AM CST The following lab order(s) may be associated with the Result Note below: HEMOGLOBIN, BLOOD; ALT (SGPT) Notes recorded by Jacquelyn Matos RN on 02/14/2020 at 3:19 PM CDT Will discuss at office visit on 02/19/2020 Jacquelyn Matos RN 02/14/2020, 3:18 PM CIATE DIRECTOR OF NURSING Interface, Out Surescripts Prov Query - 07/15/2020 [...] labs. Edelmira Cisneros RN 05/29/2020, 9:55 AM CIATE DIRECTOR OF NURSING Interface, Out Surescripts Prov Query - 07/15/2020 11:53 AM CST The following lab order(s) may be associated with the following Patient Result Comment (Entered by Juan Cho MD at 02/21/2020 7:56 PM): HGB A1C At piepSvB9e goal is less than 8.0 with a diagnosis of oepulycrTcC9s (estimated Average Glucose) (%)(mg/dL)5 97 6 126 7 154 8 183 9 212 10 240 11 269 12 298 Normal blood sugar A1c 6.4 and lessPrediabetes diagnosed by an A1c 5.7- 6.4Diabetes diagnosed by an A1c 6.5 and above CIATE DIRECTOR OF NURSING Interface, Out Surescripts Prov Query - 07/15/2020 11:53 AM CST The following lab order(s) may be associated with the following Patient Result Comment (Entered by Jazmin Hollowya, RN at 05/31/2020 10:26 AM): BASIC METABOLIC PANEL Labs reviewed. The urine test looks good, no protein seen in the urine, no microalbuminCreatinine stable at 1.28, estimated GFR is 43 ml/minUric acid is 6.2 which is better.Deepti Rivera MD CIATE DIRECTOR OF NURSING Interface, Out Surescripts Prov Query - 07/15/2020 [...] is 6.2 which is better.Deepti Rivera MD CIATE DIRECTOR OF NURSING documented in this encounter Plan of Treatment Upcoming Encounters Date Type Specialty Care Team Description 08/13/2022 Appointment Radiology Denise Aguirre APRN, WOMEN'S HEALTH CARE NURSE PRACTITIONER [address] [place], [place] [address] (Wo rk) 08/13/2022 Appointment Hematology and Oncology Denise Aguirre APRN, WOMEN'S HEALTH CARE NURSE PRACTITIONER [address] [place], [place] [address] (Wo rk) documented as [...] ied whether stage 3a or 3b CKD ([facility]) - Primary documented in this encounter Care Teams Sales Service Route Manager Relationship Specialty Start Date End Date Elyse Paredes MD PCP - General Family Practice 03/19/17 [address] [place] [address] documented as of this encounter
--- OUTSIDE RECORDS SUMMARY | 2022-07-09 14:32 | XMS_ITS | Encounter Summary ---
:1950 Author Organization [employer] Address [address] [place] [address] Care Team Providers Name Role Phone Elyse Paredes MD Primary Care Provider Reason for Visit Reason Comments QUESTIONS, GENERAL Encounter Details Date Type Department Care Team Description 08/27/2020 Telephone [facility] Nephrology Prasanna Rivera MD QUESTIONS, GENERAL 205 [facility] 205 [place] [address] [place] [address] [phone] (Wo rk) Social History Tobacco Use Types [...] is scheduled labs on 10/07. Jefe Moore K UNLOADER Jefe Recinos - 09/03/2020 11:48 AM CST Left message for pt. Jefe Moore K UNLOADER Prasanna Rivera MD - 09/02/2020 3:32 PM CST I have extended the labs Prasanna Rivera MD K UNLOADER Jefe Recinos - 08/30/2020 3:20 PM CST Pt is scheduled on 10/15. Pt would like to have labs completed a week prior to her visit. Can we extend the labs orders? ThanksJefe K UNLOADER Jefe Recinos - 08/30/2020 3:12 PM CST Left message for pt. Jefe Moore K UNLOADER Kirk Pino RN - 08/30/2020 2:44 PM CST CA please call pt regarding rescheduling. OK by Dr. Rivera. See TE notes below. ThanksKirk RN 08/30/2020, 2:44 PM K UNLOADER Prasanna Rivera MD - 08/29/2020 12:56 PM CST It is ok to reschedule for [address], we probably previsit lab planned too early since there was a call on 07/24 for labs, then labs on Aug 06. She is right, she would not need labs again prior to her visit on 09/02. Prasanna Rivera MD K UNLOADER Jefe Recinos - 08/29/2020 9:35 AM CST Pt calls back and states that would Dr. Rivera mind if she reschedule for 6 weeks. Jefe Moore K UNLOADER Jefe Recinos - 08/29/2020 9:21 AM CST Pt is calling as states will she needs to do labs again before her appt on 09/02. Pt states that she would rather not do labs as she had some done on 08/06. Jefe Moore K UNLOADER Kirk Pino, RN - 08/27/2020 11:58 AM CST Noted that labs were done 08/06. Please advise if you would like pt to get anymore labs done for upcoming appt on 09/02. Kirk Pino RN 08/27/2020, 11:59 AM K UNLOADER Jefe Recinos - 08/27/2020 11:52 AM CST Miscellaneous Questions & FYI's [ Appt Center/Fall Internship: If this call is after 3 p.m., communicate to patient: If we are not able to get back to you by the end of the day and your symptoms worsen please contact the Careline at [phone] OR at .] Is this a symptom? [...] message on your voicemail? Yes Jefe Recinos K UNLOADER documented in this encounter Plan of Treatment Upcoming Encounters Date Type Specialty Care Team Description 08/13/2022 Appointment Radiology Denise Aguirre, CLEAN IN PLACES OPERATOR, SKID MACHINE OPERATOR [address] [place], [place] [address] (Wo rk) 08/13/2022 Appointment Hematology and Oncology Denise Aguirre APRN, SKID MACHINE OPERATOR [address] [place], [place] [address] (Wo rk) documented as [...] on filedocumented in this encounter Care Teams New Car Sales Manager Relationship Specialty Start Date End Date Elyse Paredes MD PCP - General Family Practice 03/19/17 [address] [place] [address] documented as of this encounter
--- OUTSIDE RECORDS SUMMARY | 2022-07-09 14:32 | XMS_ITS | Encounter Summary ---
:1950 Author Organization [employer] Address [address] [place] [address] Care Team Providers Name Role Phone Elyse Paredes MD Primary Care Provider Reason for Visit Reason Onset Date Comments Refill 03/18/2020 insulin lispro (ARTHUR LOG) 100 Encounter Details Date Type Department Care Team Description 03/18/2020 Refill [facility] 401 Juan Cho, Refill (insulin lispro [facility] (HUMALOG) 100 ) 401 [facility]. 401 [place] [address] [place], [place] [phone] (Wo rk) Social History Tobacco Use Types [...] be locked at 03/19/2020 12:11 PM by [employer] in order to process this refill request. Please try re-routing to attempt to retry processing through [employer]. Mere Kam - 03/19/2020 12:10 PM CDT Per Jeri, pt has 1 day of humalog left. Please send. Mere Moore [place] 03/19/2020 12:10 PM Interface, Out Surescripts Prov Query - 03/18/2020 2:53 PM CDT The patient chart could not be locked at 03/18/2020 2:53 PM by [employer] in order to process this refill request. Please try re-routing to attempt to retry processing through [employer]. documented in this encounter Plan of Treatment Upcoming Encounters Date Type Specialty Care Team Description 08/13/2022 Appointment Radiology Denise Aguirre, LOGISTICS AND PLANNING MANAGER, MD PSYCHIATRY [address] [place], [place] [address] (Wo rk) 08/13/2022 Appointment Hematology and Oncology Denise Aguirre APRN, MD PSYCHIATRY [address] [place], [place] [address] (Wo rk) documented as [...] on filedocumented in this encounter Care Teams Air Shovel Operator Relationship Specialty Start Date End Date Elyse Paredes MD PCP - General Family Practice 03/19/17 [address] [place] [address] documented as of this encounter
--- OUTSIDE RECORDS SUMMARY | 2022-07-09 14:32 | XMS_ITS | Encounter Summary ---
:1950 Author Organization [employer] Address [address] [place] [address] Care Team Providers Name Role Phone Elyse Paredes MD Primary Care Provider Reason for Visit Reason Onset Date Comments Revisit CANCEL APPOINTMENT 09/04/2020 Patient Cancelled Encounter Details Date Type Department Care Team Description 09/02/2020 Telemedicine [facility] Nephrology Prasanna Rivera Stage 3a chronic kidney dise ase (Primary Dx); 205 [facility]. MD Angelica Encounters [place] [address] 205 [facility] [phone] [place], [place] [address] Social History Tobacco Use Types Packs/Day Years Used Date Smoking Tobacco: Former Cigarettes Quit : 08/02/1981 Smokeless Tobacco: Never Alcohol Use Standard Drinks/Week Comments No 0 (1 standard drink = 0.6 oz pure alcoho l) Sex Assigned at Date Recorded Not on file documented as of this encounter Progress Notes Prasanna Rivera MD - 09/02/2020 1:00 PM CST The patient cancelled this appointment. HIC READER documented in this encounter Nursing Notes Peter Pino LPN - 09/02/2020 1:00 PM CST Lm x 1 for rooming. Peter Pino LPN 08/30/2020, 3:28 PM HIC READER documented in this encounter Plan of Treatment Upcoming Encounters Date Type Specialty Care Team Description 08/13/2022 Appointment Radiology Denise Aguirre, ACCOUNTING PRACTICE MANAGER, ORDNANCE OFFICER [address] [place], [place] [address] (Wo rk) 08/13/2022 Appointment Hematology and Oncology Denise Aguirre APRN, ORDNANCE OFFICER [address] [place], [place] [address] (Wo rk) documented as [...] encounter Results Microalbumin/Creatinine Ratio (10/07/2020 1:10 PM PSYCHIC READER) [facility] Method Time Signature Albumin, 15.8 mg/L 10/07/2020 [facility] Urine, Random 6:46 PM PSYCHIC READER C[facility]AL [facility] Creatinine, 175 >20 mg/dL 10/07/2020 [facility] Urine, Random 6:46 PM PSYCHIC READER CENTRAL LAB Albumin/Creati 9 <30 mg/g 10/07/2020 [facility] nine Ratio, 6:46 PM PSYCHIC READER C[facility]AL LAB Urine, Random Specimen Anatomical Collection Method Collection Time Receive d Time (Source) Location / / Volume Laterality Urine Non-blood 10/07/2020 1:10 PM 1:10 Collection / PSYCHIC READER PM PSYCHIC READER Unknown Prasanna Rivera MD LAB_1 Performing Organization Address [facility] Phon e Number [facility] CENTRAL LAB [address] [address] Uric Acid (10/07/2020 1:10 PM PSYCHIC READER) P athologist Signature Uric Acid 6.0 2.6 - 6.0 10/07/2020 [facility] mg/dL 7:06 PM PSYCHIC READER CENTRAL LAB Specimen Anatomical Collection Method / Collection Time Recei gil Time (Source) Location / Volume Laterality Blood Venipuncture / 10/07/2020 1:10 10/07/2020 1:10 Unknown PM PSYCHIC READER PM PSYCHIC READER Prasanna Rivera MD LAB_1 Performing Organization Address [facility] Phon e Number [facility] CENTRAL LAB [address] [address] (ABNORMAL) Basic Metabolic Panel (10/07/2020 1:10 PM PSYCHIC READER) [facility] Method Time Signature Sodium 138 136 - 145 10/07/2020 [facility] mmol/L 7:06 PM PSYCHIC READER CEN[facility]AL LAB Potassium 3.4 (L) 3.5 - 5.1 10/07/2020 [facility] mmol/L 7:06 PM PSYCHIC READER C[facility]AL [facility] Chloride 100 98 - 109 10/07/2020 [facility] mmol/L 7:06 PM PSYCHIC READER [facility]AL LAB CO2 23 20 - 29 10/07/2020 [facility] mmol/L 7:06 PM PSYCHIC READER [facility]AL [facility] Anion Gap 15 7 - 16 10/07/2020 [facility] mmol/L 7:06 PM PSYCHIC READER CEN[facility]AL LAB Calcium 9.4 8.4 - 10/07/2020 [facility] 10.4 7:06 PM PSYCHIC READER C[facility]AL LAB mg/dL BUN 18 7 - 26 10/07/2020 [facility] mg/dL 7:06 PM PSYCHIC READER C[facility]AL LAB Creatinine 1.14 (H) 0.55 - 10/07/2020 [facility] 1.02 7:06 PM PSYCHIC READER CENTRAL LAB mg/dL GFR, Estimated 50 (L) >60 10/07/2020 [employer] mL/min/1. 7:06 PM PSYCHIC READER CENTRAL LAB 73m2 Glucose 220 (H) 70 - 100 10/07/2020 [facility] mg/dL 7:06 PM PSYCHIC READER C[facility]AL [facility] Comment: The given reference range is fo r the fasting state. Non-fasting reference range for glucose is 70 - 180 mg/dL. Hours Fasting 12 10/07/2020 7:06 PM PSYCHIC READER [facility] Specimen Anatomical Collection Method / Collection Time Recei gil Time (Source) Location / Volume Laterality Blood Venipuncture / 10/07/2020 1:10 10/07/2020 1:10 Unknown PM PSYCHIC READER PM PSYCHIC READER Narrative [facility] CENTRAL LAB - 10/07/2020 7:06 PM PSYCHIC READER The National Kidney Disease Education Pr ogram suggests measuring Cystatin C in patients with eGFRcrea of 45 to 59 ml/mi n/1.73^2 who do not have other markers of kidney damage (i.e. elevated urine Album in/Creatinine Ratio or a prior Cystatin C confirming the presence of chronic kidne y disease). Prasanna Rivera MD LAB_1 Performing Organization Address City/State/ZIP Code Phon e Number [facility] [address] [phone] LABORATORY documented in this encounter Visit Diagnoses Diagnosis Stage 3a chronic kidney disease (HRC) - Primary Encounters for administrative purposes Encounters for unspecified administrativ e purpose documented in this encounter Care Teams Bill Adjuster Relationship Specialty Start Date End Date Elyse Paredes MD PCP - General Family Practice 03/19/17 1540 [place] [address] documented as of this encounter
--- OUTSIDE RECORDS SUMMARY | 2022-07-09 14:32 | XMS_ITS | Encounter Summary ---
:1950 [facility] Address [address] [place] [address] Care Team Providers Name Role Phone Elyse Paredes MD Primary Care Provider Encounter Details Date Type Department Care Team Description 08/05/2020 Telemedicine [facility] Cancer Denise Aguirre alignant neoplasm Center at [facility] M, GRIFFIN, MANUFACTURING QUALITY INSPECTOR of overlapping [address] of left breast in [address] [place] [address] female, [place] [address] receptor positive [phone] (HRC) (Primary Dx) (Work) Social History Tobacco Use Types Packs/Day Years Used Date Smoking Tobacco: Former Cigarettes Quit : 08/02/1981 Smokeless Tobacco: Never Alcohol Use Standard Drinks/Week Comments No 0 (1 standard drink = 0.6 oz pure alcoho l) Sex Assigned at Date Recorded Not on file documented as of this encounter Patient Instructions Patient InstructionsDenise Aguirre APRN, MANUFACTURING QUALITY INSPECTOR - 08/05/2020 2:00 PM SENIOR SALES ADMINISTRATOR Dear Marci, It was a pleasure to [...] or concerns. The clinic phone number is [phone]. After hours, please call the nurse care line at [phone]. Denise Hernandez APRN, MANUFACTURING QUALITY INSPECTOR Called pt and scheduled apts. Scheduled six month F/U as a video visit, is open to switching to in-person if she is vaccinated. AVS declined. TM 08/05/2020, 4:02 PM OR SALES ADMINISTRATOR documented in this encounter Progress Notes Denise Aguirre APRN, BARRETT - 08/05/2020 2:00 PM CST [facility] Oncology/Hematology Follow up Visit Note Date of Service: 08/05/2020 Cancer Summary (Printed and given to the patient): Diagnosis, Stage, Prognostic Factors: ?? 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 Paredes at [facility] in May. [place] stopped her Sertraline and [...] thi s note. Denise Aguirre APRN, BARRETT OR SALES ADMINISTRATOR Stefani Fontana RN - 08/05/2020 2:00 PM CST Completed per provider's orders. QOPI: Is patient starting new chemotherapy medications today or in the near future? No Stefani Fontana RN 08/05/2020 5:01 PM OR SALES ADMINISTRATOR documented in this encounter Plan of Treatment Upcoming Encounters Date Type Specialty Care Team Description 08/13/2022 Appointment Radiology Denise Aguirre APRN, BARRETT [address] [place], [place] [address] (Wo rk) 08/13/2022 Appointment Hematology and Oncology Denise Aguirre APRN, CNP [address] [place], [place] [address] (Wo rk) documented as [...] Primary documented in this encounter Care Teams Records Specialist Relationship Specialty Start Date End Date Elyse Paredes MD PCP - General Family Practice 03/19/17 [address] [place] [address] documented as of this encounter
--- OUTSIDE RECORDS SUMMARY | 2022-07-09 14:33 | XMS_ITS | Encounter Summary ---
:1950 Author Organization [facility] Address [address] [place] [address] Care Team Providers Name Role Phone Elyse Paredes MD Primary Care Provider Reason for Visit Reason Comments REPORTING, NEW SYMPTOMS Return Call Encounter Details Date Type Department Care Team Description 10/31/2019 Telephone [employer] Cancer JULIO Madrid, [facility] JORDAN Aldana SYMPTOMS; Return Hospital 640 [facility] Call [address] [place], [place] [address] [place] [address] [phone] Social History Tobacco Use Types Packs/Day Years [...] Team Description 08/13/2022 Appointment Radiology Denise Aguirre, OUTREACH COUNSELOR, CANE CUTTER [address] [place], [place] [address] (Wo rk) 08/13/2022 Appointment Hematology and Oncology Denise Aguirre, OUTREACH COUNSELOR, CANE CUTTER [address] [place], [place] [address] (Wo rk) documented as [...] Primary documented in this encounter Care Teams Broadcast Engineer Relationship Specialty Start Date End Date Elyse Paredes MD PCP - General Family Practice 03/19/17 [address] [place] [address] documented as of this encounter
--- OUTSIDE RECORDS SUMMARY | 2022-07-09 14:33 | XMS_ITS | Encounter Summary ---
:1950 Author Organization [employer] Address [address] [place] [address] Care Team Providers Name Role Phone Elyse Paredes MD Primary Care Provider Reason for Visit Reason Comments COVID Screening Encounter Details Date Type Department Care Team Description 12/06/2019 Telephone Specialty Center 401 Prasanna Rivera MD COVID Screening Nephrology 205 [facility] 401 [place] [address] [place] [address] [phone] Social History Tobacco Use Types Packs/Day Years [...] Patient information Best number to contact patient: [phone] Reason for Visit: Other: LAB In the [...] Team Description 08/13/2022 Appointment Radiology Denise Aguirre, BUFFING LINE SET UP WORKER, POWER HOUSE CONTROL ROOM OPERATOR [address] [place], [place] [address] (Wo rk) 08/13/2022 Appointment Hematology and Oncology Denise Aguirre, BUFFING LINE SET UP WORKER, POWER HOUSE CONTROL ROOM OPERATOR [address] [place], [place] [address] (Wo [...] on filedocumented in this encounter Care Teams Institutional Aide Relationship Specialty Start Date End Date Elyse Paredes MD PCP - General Family Practice 03/19/17 [address] [place] [address] documented as of this encounter
--- OUTSIDE RECORDS SUMMARY | 2022-07-09 14:33 | XMS_ITS | Encounter Summary ---
:1950 Author Organization [employer] Address [address] [place] [address] Care Team Providers Name Role Phone Elyse [...] Procedures MM US Breast Lt MBBS [address] [place] [address] Referral ID Status Reason Start Date Expiration Date Visits V isits Requested Authorized [id number] Incomplete 11/03/2019 02/01/2021 1 1 Encounter Details Date Type Department Care Team Description 11/03/2019 Notes/Orders [facility] Christ[facility]en Rengel, Malign ant neoplasm of left breast in female, estrogen receptor positive, unspecified site of breast (HRC) (Primary Dx); [facility] GRIFFIN Lo[place]on, BARRETT History of lumpectomy of left breast; 640 [facility]. 640 [facility] [place] [address] [place] [address] [phone] (Wo rk) Social History Tobacco Use Types [...] Description 08/13/2022 Appointment Radiology Denise Aguirre APRN, ADDICTIONS COUNSELOR ASSISTANT [address] [place], [place] [address] (Wo rk) 08/13/2022 Appointment Hematology and Oncology Denise Aguirre APRN, ADDICTIONS COUNSELOR ASSISTANT [address] [place], [place] [address] (Wo rk) documented as [...] CDT EXAM: MM US BREAST LT LOCATION: [facility] HOSPITAL DATE/TIME: 11/07/2019 8:31 AM INDICATION: [...] original. EXAM: MM US BREAST LT LOCATION: [facility] HOSPITAL DATE/TIME: 11/07/2019 8:31 AM INDICATION: [...] breast documented in this encounter Care Teams Lacquer Polisher Relationship Specialty Start Date End Date Elyse Paredes MD PCP - General Family Practice 03/19/17 [address] [place] [address] documented as of this encounter
--- OUTSIDE RECORDS SUMMARY | 2022-07-09 14:33 | XMS_ITS | Encounter Summary ---
:1950 Author Organization [facility] Address [address] [place] [address] Care Team Providers Name Role Phone Elyse Paredes MD Primary Care Provider Reason for Visit Reason Comments Revisit Encounter Details Date Type Department Care Team Description 01/02/2020 Telemedicine [facility] Prasanna Rivera ase in creatinine (Primary Dx); 401 Nephrology MD Angelica Essential hypertension; [address] [facility] [place] [address] [place], [place] [phone] Social History Tobacco Use Types Packs/Day Years [...] LAD stent in May of 2017 at [place]. She also underwent TAVR procedure in July [...] had a Rheumatology consultation in 2000 at [facility]. At that time she had and elevated CRP and positive RF, but did not have joint swelling and the Test Grader said he could not make the diagnosis of RA given the short length of time that the symptoms had been present. At her initial visit I had her get labs and the RF was normal and CRP was normal. About 10 years ago she had Kidney stones. She has seen Dr. Johns of the [facility] [place] in the past. PAST MEDICAL HISTORY: Past Medical History: Diagnosis Date ??? A-fib (HRC) ??? Breast cancer (HRC) 2018 [facility] - radiation ??? CAD (coronary artery disease) (HRC) JEFFERSON to LAD ??? HTN (hypertension) (HRC) ??? Hx of total knee arthroplasty Left knee ??? Hyperlipidemia (HRC) ??? Nephrolithiasis ??? DEDE on CPAP ??? S/P TAVR (transcatheter aortic valve replacement) 07/2017, [facility] ??? Uncontrolled type 2 diabetes mellitus, with long-term current use of insulin ([facility]) 03/19/2017 ALLERGIES: is allergic to erythromycin; [...] file Gets together: Not on file Attends sikhism service: Not on file Active member of [...] 30 Tablet, Rfl: 11 Continuous Blood Gluc Quality Control Systems Manager (DEXCOM G6 THREAD LASTER) JAY, Use as directed for continuous glucose monitoring., Disp: 1 Device, Rfl: 0 Continuous Blood Gluc Sensor (DEXCOM G6 SENSOR) [facility], Use as directed for continuous glucose monitoring. Change sensor every 10 days., Disp: 3 Each, Rfl: 5 Continuous Blood Gluc Transmit (DEXCOM G6 TRANSMITTER) [facility], Use as directed for continuous glucose monitoring. [...] Description 08/13/2022 Appointment Radiology Denise Aguirre APRN, CALL CENTER TRAINER [address] [place], [place] [address] (Wo rk) 08/13/2022 Appointment Hematology and Oncology Denise Aguirre APRN, CALL CENTER TRAINER [address] [place], [place] [address] (Wo rk) documented as [...] Acid 8.1 (H) 2.6 - 6.0 02/13/2020 [facility] mg/dL 4:37 PM CDT CENTRAL LAB Specimen Anatomical Collection Method / Collection Time Recei gil Time (Source) Location / Volume Laterality Blood Venipuncture / 02/13/2020 1:04 02/13/2020 1:04 Unknown PM CDT PM CDT Prasanna Rivera MD LAB_1 Performing Organization Address City/State/ZIP Code Phon e Number [employer] CENTRAL LAB [address] [address] (ABNORMAL) Basic Metabolic Panel (02/13/2020 1:04 PM CDT) [facility] g[facility] Method Time Signature Sodium 140 136 [...] BUN 27 (H) 7 - 26 02/13/2020 [facility] mg/dL 4:37 PM CDT CENTRAL LAB Creatinine 1.24 (H) 0.55 - 02/13/2020 [facility] 1.02 4:37 PM CDT CENTRAL LAB mg/dL GFR, Estimated 45 (L) >60 02/13/2020 [facility] mL/min/1. 4:37 PM CDT CENTRAL LAB 73m2 Glucose 188 (H) 70 - 100 02/13/2020 [facility] mg/dL 4:37 PM CDT CENTRAL LAB Comment: [...] 1:04 Unknown PM CDT PM CDT Narrative [facility] CENTRAL LAB - 02/13/2020 4:37 PM CDT [...] City/State/ZIP Code Phon e Number [facility] CENTRAL LAB [address] [address] [address] [place] [id number] [place] [address] LABORATORY documented in this encounter Visit Diagnoses Diagnosis Increase in creatinine - Primary Essential hypertension (HRC) Unspecified essential hypertension Hyperuricemia Other abnormal blood chemistry documented in this encounter Care Teams Innovation Analyst Relationship Specialty Start Date End Date Elyse Paredes MD PCP - General Family Practice 03/19/17 [address] [place] [address] documented as of this encounter
--- OUTSIDE RECORDS SUMMARY | 2022-07-09 14:33 | XMS_ITS | Encounter Summary ---
:1950 Author Organization [employer] Address [address] [place] [address] Care Team Providers Name Role Phone Elyse Paredes MD Primary Care Provider Encounter Details Date Type Department Care Team Description 12/12/2019 Notes/Orders Specialty Center Elyse Paredes MD Paroxysmal atrial Laboratory [address] fibrillation (HRC) [address] [place], [place] (Primary Dx) [place] [address] [phone] Social History Tobacco Use Types Packs/Day Years [...] Team Description 08/13/2022 Appointment Radiology Denise Aguirre, TRANSITION TEACHER, ELEVATOR MECHANIC [address] [place], [place] [address] (Wo rk) 08/13/2022 Appointment Hematology and Oncology Denise Aguirre APRN, ELEVATOR MECHANIC [address] [place], [place] [address] (Wo rk) documented as [...] Number [facility] LAB[facility]ATORY [address] [place] [address] documented in this encounter Visit Diagnoses Diagnosis Paroxysmal atrial fibrillation (HRC) - P rimary Atrial fibrillation documented in this encounter Care Teams Neon Glass Blower Relationship Specialty Start Date End Date Elyse Paredes MD PCP - General Family Practice 03/19/17 [address] [place] [address] documented as of this encounter
--- OUTSIDE RECORDS SUMMARY | 2022-07-09 14:33 | XMS_ITS | Encounter Summary ---
:1950 Author Organization [facility] Address [address] [place] [address] Care Team Providers Name Role Phone Elyse Paredes MD Primary Care Provider Reason for Visit Reason Onset Date Comments Refill 11/14/2019 BD PEN NEEDLE 31G X 5MM Encounter Details Date Type Department Care Team Description 11/14/2019 Refill Specialty Center 401 Juan Zaragoza, Refill (BD PEN NEEDLE Endocrinology Clinic 31G X 5MM) [address] [place] [address] [place], [place] [phone] (Wo rk) Social History Tobacco Use Types [...] 5, Si-5 times daily. (unchanged) Powered by [employer], Reference: [id number], 11/14/2019 8:18:34 AM CDT, Pool: ENDO REFILL PAYTON ([id number]) Yareli Rogers - 11/14/2019 8:16 AM CDT Last refilled: 05/09/2019 Dispense amount of last refill: 100 documented in this encounter Plan of Treatment Upcoming Encounters Date Type Specialty Care Team Description 08/13/2022 Appointment Radiology Denise Aguirre, DECK SUPERVISOR, PORTABLE TRACK LINE MARKER [address] [place], [place] [address] (Wo rk) 08/13/2022 Appointment Hematology and Oncology Denise Aguirre APRN, PORTABLE TRACK LINE MARKER [address] [place], [place] [address] (Wo rk) documented as [...] Primary documented in this encounter Care Teams Librarian Helper Relationship Specialty Start Date End Date Elyse Paredes MD PCP - General Family Practice 03/19/17 [address] [place] [address] documented as of this encounter
--- OUTSIDE RECORDS SUMMARY | 2022-07-09 14:33 | XMS_ITS | Encounter Summary ---
:1950 Author Organization [facility] Address [address] [place] [address] Care Team Providers Name Role Phone Elyse Paredes MD Primary Care Provider Encounter Details Date Type Department Care Team Description 01/19/2020 Telemedicine [facility] [place], [place] ant neoplasm of overlapping sites of left breast in female, estrogen receptor positive (HRC) (Primary Dx); Center at [facility] JORDAN Aldana Disturbed sleep rhythm; [address] Arthralgia, unspecified joint; [address] [place] [address] Myalgia; [place] [address] Fatigue, unspecified type [phone] (Wo rk) Social History Tobacco Use Types [...] tamoxifen 20 mg daily (prescription sent to [facility]. 3. Tamoxifen is made less [...] water aerobics or bicycle or elliptical cross diabetes trainer; plus muscle strengthening resistance based exercises; plus stretching, at least 30 minutes a day at least five days a week, consumption of at least five servings of fruits and vegetables everyday, rkq-sbw-jmbo-fiber diet, avoidance of stress,healthy sleeping habits, avoidance of excess caffeine, alcohol. Avoidance of active and passive tobacco exposure. 8. In July 2020: Bilateral screening mammograms 9. Every 6 months until January 2024: Follow-up with one of our RESOURCE MANAGEMENT PLANNER/PAs. If any signs or symptoms concerning for cancer recurrence or significant therapy related complications developed, then I will see you. 10. January 2024: Follow up with me. At that time you would have completed 5 years of adjuvant endocrine therapy. Pros and cons of extending endocrine therapy will discussed. Please do not hesitate to contact us at [phone] any time. Thank you. Sincerely, JORDAN Jiang.......01/19/2020 [...] we were in a private room at [facility] for this visit). Interval History; Marci she [...] tamoxifen 20 mg daily (prescription sent to [facility]. 3. Tamoxifen is made less effective [...] water aerobics or bicycle or elliptical cross diabetes trainer; plus muscle strengthening resistance based exercises; plus stretching, at least 30 minutes a day at least five days a week, consumption of at least five servings of fruits and vegetables everyday, fne-vwj-jbas-fiber diet, avoidance of stress,healthy sleeping habits, avoidance of excess caffeine, alcohol. Avoidance of active and passive tobacco exposure. 9. In July 2020: Bilateral screening mammograms 10. Every 6 months until January 2024: Follow-up with one of our RESOURCE MANAGEMENT PLANNER/PAs. If any signs or symptoms concerning for [...] Description 08/13/2022 Appointment Radiology Denise Aguirre APRN, DATA DESIGNER [address] [place], [place] [address] (Wo rk) 08/13/2022 Appointment Hematology and Oncology Denise Aguirre APRN, DATA DESIGNER [address] [place], [place] [address] (Wo rk) documented as [...] type documented in this encounter Care Teams Records Associate Relationship Specialty Start Date End Date Elyse Paredes MD PCP - General Family Practice 03/19/17 [address] [place] [address] documented as of this encounter
--- OUTSIDE RECORDS SUMMARY | 2022-07-09 14:33 | XMS_ITS | Encounter Summary ---
:1950 Author Organization [employer] Address [address] [place] [address] Care Team Providers Name Role Phone Elyse Paredes MD Primary Care Provider Encounter Details Date Type Department Care Team Description 10/04/2019 Orders Only External to Elyse Paredes MD [address] [place], [place] [address] (Wo rk) Social History [...] Team Description 08/13/2022 Appointment Radiology Denise Aguirre, ELECTRONIC CONSOLE DISPLAY OPERATOR, CITY EDITOR [address] [place], [place] [address] (Wo rk) 08/13/2022 Appointment Hematology and Oncology Denise Aguirre APRN, CITY EDITOR [address] [place], [place] [address] (Wo rk) documented [...] LAB 10/04/2019 12:00 AM Results for this BANQUET CAPTAIN procedure are i n the results section . documented in this encounter Results SCANNED LAB (10/04/2019 12:00 AM BANQUET CAPTAIN) Specimen (Source) Anatomical Location Collection Method / Collectio n Time Received Time / Laterality Volume 10/04/2019 Narrative This result has an attachment that is no t available. Elyse Paredes MD LAB_1 documented in this encounter Visit Diagnoses Not on filedocumented in this encounter Care Teams Mulcher Operator Relationship Specialty Start Date End Date Elyse Paredes MD PCP - General Family Practice 03/19/17 [address] [place] [address] documented as of this encounter
--- OUTSIDE RECORDS SUMMARY | 2022-07-09 14:33 | XMS_ITS | Encounter Summary ---
:1950 Author Organization [employer] Address [address] [place] [address] Care Team Providers Name Role Phone Elyse Paredes MD Primary Care Provider Encounter Details Date Type Department Care Team Description 10/04/2019 Orders Only External to Elyse Paredes MD [address] [place], [place] [address] (Wo rk) Social History [...] Team Description 08/13/2022 Appointment Radiology Denise Aguirre, INDUSTRY SEGMENT SPECIALIST, LABOR RELATIONS ANALYST [address] [place], [place] [address] (Wo rk) 08/13/2022 Appointment Hematology and Oncology Denise Aguirre APRN, LABOR RELATIONS ANALYST [address] [place], [place] [address] (Wo rk) documented as [...] LAB 10/04/2019 12:00 AM Results for this PRINCIPAL DATA ARCHITECT procedure are i n the results section . documented in this encounter Results SCANNED LAB (10/04/2019 12:00 AM PRINCIPAL DATA ARCHITECT) Specimen (Source) Anatomical Location Collection Method / Collectio n Time Received Time / Laterality Volume 10/04/2019 Narrative This result has an attachment that is no t available. Elyse Paredes MD LAB_1 documented in this encounter Visit Diagnoses Not on filedocumented in this encounter Care Teams Helper/Driver Relationship Specialty Start Date End Date Elyes Paredes MD PCP - General Family Practice 03/19/17 [address] [place] [address] documented as of this encounter
--- OUTSIDE RECORDS SUMMARY | 2022-07-09 14:33 | XMS_ITS | Encounter Summary ---
:1950 Author Organization [facility] Address [address] [place] [address] Care Team Providers Name Role Phone Elyse Paredes MD Primary Care Provider Reason for Visit Reason Comments Appointment Questions Encounter Details Date Type Department Care Team Description 01/11/2020 Telephone [facility] [facility] [place] [address] [place] [address] [phone] Social History Tobacco Use Types Packs/Day Years [...] She would like a call back at: [phone] Angely Miranda RN 01/11/2020, 2:48 PM documented in this encounter Plan of Treatment Upcoming Encounters Date Type Specialty Care Team Description 08/13/2022 Appointment Radiology Denise Aguirre, FLORAL MERCHANDISER, INSURANCE MANAGER [address] [place], [place] [address] (Wo rk) 08/13/2022 Appointment Hematology and Oncology Denise Aguirre, FLORAL MERCHANDISER, INSURANCE MANAGER [address] [place], [place] [address] (Wo rk) documented as [...] on filedocumented in this encounter Care Teams Tire Center Supervisor Relationship Specialty Start Date End Date Elyse Paredes MD PCP - General Family Practice 03/19/17 [address] [place] [address] documented as of this encounter
--- OUTSIDE RECORDS SUMMARY | 2022-07-09 14:33 | XMS_ITS | Encounter Summary ---
:1950 Author Organization [facility] Address [address] [place] [address] Care Team Providers Name Role Phone Elyse Paredes MD Primary Care Provider Reason for Visit Reason Comments REFERRAL REQUEST Encounter Details Date Type Department Care Team Description 01/16/2020 Telephone [facility] [address] Freya Zaragoza MD REFERRAL REQUEST Endocrinology Clinic [address] [place] [address] [place] [address] [phone] Social History Tobacco Use Types Packs/Day Years [...] Is the provider or clinic outside of Critical access hospital or [facility]? No Orders - All Orders [[facility]: If this call is after 3 p.m., communicate to patient: If we are not able to get back to you by the end of the day and your symptoms worsen please contact the Careline at [phone] OR at .] Have you been seen recently for this concern? Yes: 3 MO AGO [[facility]:If patient was seen at an outside location, please obtain records] Is it okay to leave a detailed message on your voicemail? Yes [[facility]: Instruct patient to check with insurance company for coverage] Is there anything else I can help you with today? Golden Lainez documented in this encounter Plan of Treatment Upcoming Encounters Date Type Specialty Care Team Description 08/13/2022 Appointment Radiology Denise Aguirre APRN, SENIOR TECHNICAL WRITER [address] [place], [place] [address] (Wo rk) 08/13/2022 Appointment Hematology and Oncology Denise Aguirre, MEDICAL ASSISTANT PER DIEM, SENIOR TECHNICAL WRITER [address] [place], [place] [address] (Wo rk) documented as [...] on filedocumented in this encounter Care Teams Aml Analyst Relationship Specialty Start Date End Date Elyse Paredes MD PCP - General Family Practice 03/19/17 [address] [place] [address] documented as of this encounter
--- OUTSIDE RECORDS SUMMARY | 2022-07-09 14:33 | XMS_ITS | Encounter Summary ---
:1950 Author Organization [employer] Address [address] [place] [address] Care Team Providers Name Role Phone Elyse Paredes MD Primary Care Provider Reason for Visit Reason Comments Video Visit creatinine1.65 Consult/Transfer Care (Routine) - Closed Specialty Diagnoses / Procedures Referred By Contact Refer red To Contact Diagnoses Controlled type 2 diabetes mellitus without complication, with long-term current use of insulin (HRC) Juan Cho MD [address] [place] [address] Referral ID Status Reason Start Date Expiration Date Visits Requ ested Visits Authorized [id number] Closed 10/06/2019 01/04/2021 1 1 Encounter Details Date Type Department Care Team Description 12/04/2019 Tele[facility] Prasanna Rivera in creatinine (Primary Dx); 401 Nephrology MD Angelica Essential hypertension; 401 [facility] [address] NSAID long-term use; [place] [address] [place], [place] Osteoarthritis, unspecified osteoarthritis type, unspecified site [phone] [id number] Social History Tobacco Use Types Packs/Day Years [...] Arthritis, I will refer you to a Equity Holder, since there are new treatments that may [...] LAD stent in May of 2017 at [facility]. She also underwent TAVR procedure in July [...] a Rheumatology consultation in 2000 at [facility]. At that time she had andelevated CRP and positive RF, but did not have joint swelling and the Equity Holder said he could not make the diagnosis of RA given the short length of time that the symptoms had been present. About 10 years ago she had Kidney stones. She has seen Dr. Johns of the [facility] [place] in the past. PAST MEDICAL HISTORY: Past Medical History: Diagnosis Date ??? A-fib (HRC) ??? Breast cancer (HRC) 2018 [facility] - radiation ??? CAD (coronary artery disease) (HRC) JEFFERSON to LAD ??? HTN (hypertension) (HRC) ??? Hx of total knee arthroplasty Left knee ??? Hyperlipidemia (HRC) ??? Nephrolithiasis ??? DEDE on CPAP ??? S/P TAVR (transcatheter aortic valve replacement) 07/2017, [facility] ??? Uncontrolled type 2 diabetes mellitus, [...] 30 Tablet, Rfl: 11 Continuous Blood Gluc Wire Frame Lampshade Maker (DEXCOM G6 PRECISION MECHANICAL INSTRUMENT MAKER) JAY, Use as directed for continuous glucose monitoring., Disp: 1 Device, Rfl: 0 Continuous Blood Gluc Sensor (DEXCOM G6 SENSOR) [facility], Use as directed for continuous glucose monitoring. Change sensor every 10 days., Disp: 3 Each, Rfl: 5 Continuous Blood Gluc Transmit (DEXCOM G6 TRANSMITTER) [facility], Use as directed for continuous [...] patient. Comprehensive Metabolic PanelResulted: 10/04/2019 7:58 PM [facility] System Component Name Value Ref Range Sodium [...] U/L Microalbumin, Random UrineResulted: 03/25/2016 4:05 PM [facility] Component Name Value Ref Range Microalbumin, Random [...] I reviewed her prior studies from both [facility] and [facility] - I strongly suspected that her kidney [...] a positive rheumatoid factor and seeing a sand conditioner machine in 2000. - I recommend that she [...] Team Description 08/13/2022 Appointment Radiology Denise Aguirre, FURNITURE REMOVALIST, MAINFRAME SOFTWARE DEVELOPER [address] [place] [address] [place] [address] (Wo rk) 08/13/2022 Appointment Hematology and Oncology Denise Aguirre, GRIFFIN, MAINFRAME SOFTWARE DEVELOPER [address] [place], [place] [address] (Wo rk) documented as [...] Acid 8.3 (H) 2.6 - 6.0 12/21/2019 [facility] mg/dL 7:32 PM CDT CENTRAL LAB Specimen Anatomical Collection Method / Collection Time Recei gil Time (Source) Location / Volume Laterality Blood Venipuncture / 12/21/2019 12:30 0 Unknown PM CDT 12:30 PM CDT Prasanna Rivera MD LAB_1 Performing Organization Address City/State/ZIP Code Phon [facility] Number [facility] [address] [address] (ABNORMAL) Basic Metabolic Panel (12/21/2019 12:30 PM CDT) Patholo gist Method Time Signature Sodium 140 136 - 145 12/21/2019 [facility] mmol/L 6:21 PM CDT CENTRAL LAB Potassium 3.8 3.5 - 5.1 12/21/2019 [facility] mmol/L 6:21 PM CDT CENTRAL LAB Chloride 101 98 - 109 12/21/2019 [facility] mmol/L 6:21 PM CDT CENTRAL LAB CO2 28 20 - 29 12/21/2019 [facility] mmol/L 6:21 PM CDT CENTRAL LAB Anion Gap 11 7 - 16 12/21/2019 [facility] mmol/L 6:21 PM CDT CENTRAL LAB Calcium 9.9 8.4 - 12/21/2019 [facility] 10.4 6:21 PM CDT CENTRAL LAB mg/dL BUN 28 (H) 7 - 26 12/21/2019 [facility] mg/dL 6:21 PM CDT CENTRAL LAB Creatinine 1.33 (H) 0.55 - 12/21/2019 [facility] 1.02 6:21 PM CDT CENTRAL LAB mg/dL GFR, Estimated 41 (L) >60 12/21/2019 [facility] mL/min/1. 6:21 PM CDT CENTRAL LAB 73m2 GFR, Est If 48 (L) >60 12/21/2019 [facility] mL/min/1. 6:21 PM CDT CENTRAL LAB Burmese 73m2 Glucose 127 (H) 70 - 100 12/21/2019 [facility] mg/dL 6:21 PM CDT CENTRAL LAB Comment: [...] Unknown PM CDT 12:30 PM CDT Narrative [facility] CENTRAL LAB - 12/21/2019 6:21 PM CDT The National Kidney Disease Education Pr ogram suggests measuring Cystatin C in patients with eGFRcrea of 45 to 59 ml/mi n/1.73^2 who do not have other markers of kidney damage (i.e. elevated urine Album in/Creatinine Ratio or a prior Cystatin C confirming the presence of chronic kidne y disease). Prasanna B [place] MD LAB_1 Performing Organization Address [facility]/ZIP Code Phon e Number [facility]AL LAB [address] [address] [address] [place] [id number] [phone] LABORATORY C-Reactive Protein (12/21/2019 12:30 PM CDT) Nextt gist Method Time Signature C-Reactive 0.4 0.0 - 0.7 12/22/2019 [facility] Protein mg/dL 4:17 PM CDT CENTRAL LAB Specimen Anatomical Collection Method / Collection Time Recei gil Time (Source) Location / Volume Laterality Blood Venipuncture / 12/21/2019 12:30 0 Unknown PM CDT 12:30 PM CDT Prasanna Rivera MD LAB_1 Performing Organization Address [facility]/ZIP Code Phon e Number [facility] [address] [place] [address] Rheumatoid Factor, Quant (12/21/2019 12:30 PM CDT) Nextt gist Method Time Signature Rheumatoid <15 <=30 12/21/2019 [facility] Factor, IU/mL 6:21 PM CDT CENTRAL LAB Quantitative Specimen Anatomical Collection Method / Collection Time Recei gil Time (Source) Location / Volume Laterality Blood Venipuncture / 12/21/2019 12:30 0 Unknown PM CDT 12:30 PM CDT Prasanna Rivera MD LAB_1 Performing Organization Address City/[facility]/ZIP [facility] Phon e Number [facility]AL LAB [address] [address] documented in this encounter Visit Diagnoses Diagnosis Increase in creatinine - Primary Essential hypertension (HRC) Unspecified essential hypertension NSAID long-term use Encounter for long-term (current) use of non-steroidal anti-inflammatories Osteoarthritis, unspecified osteoarthrit is type, unspecified site documented in this encounter Care Teams Health And Safety Instructor Relationship Specialty Start Date End Date Elyse Paredes MD PCP - General Family Practice 03/19/17 [address] [place] [address] documented as of this encounter
--- OUTSIDE RECORDS SUMMARY | 2022-07-09 14:33 | XMS_ITS | Encounter Summary ---
:1950 Author Organization [employer] Address [address] [place] [address] Care Team Providers Name Role Phone Elyse Paredes MD Primary Care Provider Encounter Details Date Type Department Care Team Description 12/21/2019 Lab Visit Specialty Center Controll ed type 2 diabetes mellitus without complication, with long-term current use of insulin (HRC); Laboratory Increase in creatinine; [address] Essential hypertension; [place] [address] NSAID long-term use; [phone] Osteoarthritis, unspecified osteoarthritis type, unspecified site; Paroxysmal [...] Description 08/13/2022 Appointment Radiology Denise Aguirre, CUSTOMER RECORDS DIVISION SUPERVISOR, PARAEDUCATOR [address] [place], [place] [address] (Wo rk) 08/13/2022 Appointment Hematology and Oncology Denise Aguirre, CUSTOMER RECORDS DIVISION SUPERVISOR, PARAEDUCATOR [address] [place], [place] [address] (Wo rk) documented as [...] Phon e Number [facility]ENTER LABORATORY [address] [place] [address] (ABNORMAL) Uric Acid (12/21/2019 12:30 PM CDT) [...] Organization Address City/State/ZIP Code Phon e Number [facility] CENTRAL LAB [address] [address] (ABNORMAL) Basic Metabolic Panel (12/21/2019 12:30 PM [...] LAB Creatinine 1.33 (H) 0.55 - 12/21/2019 [facility] 1.02 6:21 PM CDT CENTRAL LAB mg/dL GFR, Estimated 41 (L) >60 12/21/2019 [facility] mL/min/1. 6:21 PM CDT CENTRAL LAB 73m2 GFR, Est If 48 (L) >60 12/21/2019 [facility] mL/min/1. 6:21 PM CDT CENTRAL LAB [place] Islander 73m2 Glucose 127 (H) 70 - 100 12/21/2019 [facility] mg/dL 6:21 PM CDT CENTRAL LAB [...] Unknown PM CDT 12:30 PM CDT Narrative [facility] CENTRAL LAB - 12/21/2019 6:21 PM [...] Organization Address City/State/ZIP Code Phon e Number [facility] CENTRAL LAB [address] [address] SPECIALTY [address] [place] [id number] [place] [address] LABORATORY C-Reactive Protein (12/21/2019 12:30 PM CDT) [facility] Method Time Signature C-Reactive 0.4 0.0 - 0.7 12/22/2019 [facility] Protein mg/dL 4:17 PM CDT CENTRAL LAB Specimen Anatomical Collection Method / Collection Time Recei gil Time (Source) Location / Volume Laterality Blood Venipuncture / 12/21/2019 12:30 0 Unknown PM CDT 12:30 PM CDT Prasanna Rivera MD LAB_1 Performing Organization Address [facility]/ZIP Code Phon e Number [facility] CENTRAL LAB [address] [place] [address] Rheumatoid Factor, Quant (12/21/2019 12:30 PM CDT) [facility] gist Method Time Signature Rheumatoid <15 <=30 12/21/2019 [facility] Factor, IU/mL 6:21 PM CDT CENTRAL LAB Quantitative Specimen Anatomical Collection Method / Collection Time Recei gil Time (Source) Location / Volume Laterality Blood Venipuncture / 12/21/2019 12:30 0 Unknown PM CDT 12:30 PM CDT Prasanna Rivera MD LAB_1 Performing Organization Address [facility]/ZIP Code Phon e Number [facility] CENTRAL LAB [address] [place] [address] Hgb (12/21/2019 12:30 PM CDT) P athologist Signature Hemoglobin 12.8 12.0 - 15.5 12/21/2019 [facility] g/dL 2:18 PM CDT CENTER LABORATORY Specimen Anatomical Collection Method / Collection Time Recei gil Time (Source) Location / Volume Laterality Blood Venipuncture / 12/21/2019 12:30 0 Unknown PM CDT 12:30 PM CDT Juan Cho MD LAB_1 Performing Organization Address City/[facility]/ZIP Code Phon e Number [facility] LAB[facility]ORY [address] [place] [address] (ABNORMAL) HgbA1c (12/21/2019 12:30 PM CDT) [facility] gist Method Time Signature Hemoglobin A1C 7.6 (H) <=5.6 % 12/21/2019 [facility] 4:46 PM CDT CENTRAL LAB Specimen Anatomical Collection Method / Collection Time Recei gil Time (Source) Location / Volume Laterality Blood Venipuncture / 12/21/2019 12:30 0 Unknown PM CDT 12:30 PM CDT Narrative [facility] CENTRAL LAB - 12/21/2019 4:46 PM CDT For patients not previously diagnosed with diabetes: 5.7-6.4%: Increased risk for diabetes 6.5% and greater: Diagnostic for diabete s For patients diagnosed with diabetes: <8.0%: Goal of therapy for ages 18-75 Clinicians may recommend a higher or low er goal for specific individuals. Juan Cho MD LAB_1 Performing Organization Address [facility] Phon e Number [facility] CENTRAL LAB [address] [address] ALT (SGPT) (12/21/2019 12:30 PM CDT) P athologist Signature ALT (SGPT) 18 0 - 55 U/L 12/21/2019 [facility] 6:21 PM CDT CENTRAL LAB Specimen Anatomical Collection Method / Collection Time Recei gil Time (Source) Location / Volume Laterality Blood Venipuncture / 12/21/2019 12:30 0 Unknown PM CDT 12:30 PM CDT Juan Cho MD LAB_1 Performing Organization Address [facility] Phon e Number [facility] LAB [address] [address] Microalb / Creat Ratio (12/21/2019 12:30 PM CDT) Patholo gist Method Time Signature Albumin, 29.2 mg/L 12/21/2019 [facility] Urine, Random 6:41 PM CDT CENTRAL LAB Creatinine, 198 >20 mg/dL 12/21/2019 [facility] Urine, Random 6:41 PM CDT CENTRAL LAB Albumin/Creati 15 <30 mg/g 12/21/2019 [facility] nine Ratio, 6:41 PM CDT CENTRAL LAB Urine, Random Specimen Anatomical Collection Method Collection Time Receive d Time (Source) Location / / Volume Laterality Urine,random 12/21/2019 12:30 12/21/2019 PM CDT 12:30 PM CDT Juan Cho MD LAB_1 Performing Organization Address [facility] Phon e Number [facility] CENTRAL LAB [address] [address] LDL Direct (12/21/2019 12:30 PM CDT) P athologist Signature LDL, Direct 99 <=130 12/21/2019 [facility] mg/dL 6:21 PM CDT CENTRAL LAB Specimen Anatomical Collection Method / Collection Time Recei gil Time (Source) Location / Volume Laterality Blood Venipuncture / 12/21/2019 12:30 0 Unknown PM CDT 12:30 PM CDT Juan Cho MD LAB_1 Performing Organization Address City/State/ZIP Code Phon e Number [facility] CENTRAL LAB [address] [address] documented in this encounter Visit Diagnoses Diagnosis Controlled type 2 diabetes mellitus with out complication, with long-term current use of insulin (HRC) Increase in creatinine Essential hypertension (HRC) Unspecified essential hypertension NSAID long-term use Encounter for long-term (current) use of non-steroidal anti-inflammatories Osteoarthritis, unspecified osteoarthrit is type, unspecified site Paroxysmal atrial fibrillation (HRC) Atrial fibrillation documented in this encounter Care Teams Hat Trimmer Relationship Specialty Start Date End Date Elyse Paredes MD PCP - General Family Practice 03/19/17 [address] [address] documented as of this encounter
--- OUTSIDE RECORDS SUMMARY | 2022-07-09 14:33 | XMS_ITS | Encounter Summary ---
:1950 Author Organization [employer] Address [address] [place] [address] Care Team Providers Name Role Phone Elyse Paredes MD Primary Care Provider Encounter Details Date Type Department Care Team Description 10/05/2019 Orders Only External to Elyse Paredes MD [address] [place], [place] [address] (Wo rk) Social History [...] Team Description 08/13/2022 Appointment Radiology Denise Aguirre, COMPUTER FORENSICS TECHNICIAN, AUTO POLISHER [address] [place], [place] [address] (Wo rk) 08/13/2022 Appointment Hematology and Oncology Denise Aguirre APRN, AUTO POLISHER [address] [place], [place] [address] (Wo rk) documented as [...] LAB 10/05/2019 12:00 AM Results for this LINING PRINTER procedure are i n the results section . documented in this encounter Results SCANNED LAB (10/05/2019 12:00 AM LINING PRINTER) Specimen (Source) Anatomical Location Collection Method / Collectio n Time Received Time / Laterality Volume 10/05/2019 Narrative This result has an attachment that is no t available. Elyse Paredes MD LAB_1 documented in this encounter Visit Diagnoses Not on filedocumented in this encounter Care Teams Salesforce Trainer Relationship Specialty Start Date End Date Elyse Paredes MD PCP - General Family Practice 03/19/17 [address] [place] [address] documented as of this encounter
--- OUTSIDE RECORDS SUMMARY | 2022-07-09 14:33 | XMS_ITS | Encounter Summary ---
:1950 Author Organization [employer] Address [address] [place] [address] Care Team Providers Name Role Phone Elyse Paredes MD Primary Care Provider Encounter Details Date Type Department Care Team Description 11/14/2019 Refill Order Specialty Center 401 Freya Zaragoza MD Endocrinology Clinic [address] [place] [address] [place] [address] [phone] Social History Tobacco Use Types Packs/Day Years [...] - NEXT LAB APPOINTMENT: None Powered by [employer], Reference: [id number], 11/14/2019 8:18:34 AM CDT, Pool: MARY YANEZ RN ([id number]) documented in this encounter Plan of Treatment Upcoming Encounters Date Type Specialty Care Team Description 08/13/2022 Appointment Radiology eDnise Aguirre APRN, RESORT MANAGER [address] [place], [place] [address] (Wo rk) 08/13/2022 Appointment Hematology and Oncology Denise Aguirre APRN, RESORT MANAGER [address] [place], [place] [address] (Wo rk) documented as [...] medications documented in this encounter Care Teams Information Specialist Relationship Specialty Start Date End Date Elyse Paredes MD PCP - General Family Practice 03/19/17 [address] [place] [address] documented as of this encounter
--- OUTSIDE RECORDS SUMMARY | 2022-07-09 14:33 | XMS_ITS | Encounter Summary ---
:1950 Author Organization [employer] Address [address] [place] [address] Care Team Providers Name Role Phone Elyse Paredes MD Primary Care Provider Encounter Details Date Type Department Care Team Description 12/15/2019 Orders Only Initial Department Provider, [place], [facility] JE WHITING MD [place], [place] [address] Interface provider [phone] [place] [address] Social History Tobacco Use Types Packs/Day Years [...] Team Description 08/13/2022 Appointment Radiology Denise Aguirre, WATER ATTENDANT, PEER HEALTH PROMOTER [address] [place], [place] [address] (Wo rk) 08/13/2022 Appointment Hematology and Oncology Denise Aguirre APRN, PEER HEALTH PROMOTER [address] [place], [place] [address] (Wo rk) documented as [...] on filedocumented in this encounter Care Teams Asphalt Plant Worker Relationship Specialty Start Date End Date Elyse Paredes MD PCP - General Family Practice 03/19/17 [address] [place] [address] documented as of this encounter
--- OUTSIDE RECORDS SUMMARY | 2022-07-09 14:33 | XMS_ITS | Encounter Summary ---
:1950 Author Organization [facility] Address [address] [place] [address] Care Team Providers Name Role Phone Elyse Paredes MD Primary Care Provider Reason for Visit Reason Comments FYI Encounter Details Date Type Department Care Team Description 11/03/2019 Telephone [facility] Elisa [place] FYI at [facility] 640 [facility] [address] [place], [place] [id number] [place] [address] [phone] (Wo rk) Social History Tobacco Use Types [...] Care Team Description 08/13/2022 Appointment Radiology eDnise Aguirre, CREAM MAKER, DOOR AND ARRIVAL ATTENDANT [address] [place], [place] [address] (Wo rk) 08/13/2022 Appointment Hematology and Oncology Denise Aguirre APRN, DOOR AND ARRIVAL ATTENDANT [address] [place], [place] [address] (Wo rk) documented as [...] on filedocumented in this encounter Care Teams Wine Cellar Worker Relationship Specialty Start Date End Date Elyse Paredes MD PCP - General Family Practice 03/19/17 [address] [place] [address] documented as of this encounter
--- OUTSIDE RECORDS SUMMARY | 2022-07-09 14:33 | XMS_ITS | Encounter Summary ---
:1950 Author Organization [employer] Address [address] [place] [address] Care Team Providers Name Role Phone Elyse Paredes MD Primary Care Provider Reason for Visit Reason Comments QUESTIONS, GENERAL dexcom Rx Encounter Details Date Type Department Care Team Description 10/09/2019 Telephone Specialty Center 401 Juan Cho, QUESTIONS, GENERAL Endocrinology Clinic (dexcom Rx) [address] [facility] [address] [place] [address] [place], [place] [phone] [facility] Social History Tobacco Use Types Packs/Day [...] 10:02 AM CDT Called and spoke with [facility]. Explained that we never received a CMN form from them, only a request for CN that were faxed on 10/15and 10/16. Will fax a CMN to clinic for provider to sign. No further questions or concerns. Jacquelyn Fried RN 10/18/2019, 10:03 AM Elda Espinal - 10/18/2019 9:27 AM CDT Ghislaine from [facility] called to say they haven't received the CMN and clinical notes. , phone # [phone]. Elda Espinal Jacquelyn Fried RN - 10/17/2019 [...] 2:16 PM CDT Patient called to say [facility] is claiming they haven't received the additional Medicare paperwork from the clinic. Patient can be reached at [phone], if you have questions. Elda Espinal Jacquelyn Fried RN - 10/09/2019 2:07 PM CDT Called and spoke with patient. States that she spoke with [facility] pharmacy and they need CN and Medicare form signed. Explained that [facility] needs to fax those request to the clinic. Pt verbalized understanding and agreed with plan. Will contact [facility] regarding her request. No further questions or concerns. Jacquelyn Fried RN 10/09/2019, 2:10 PM Elda Espinal - 10/09/2019 10:34 AM CDT Miscellaneous Questions & FYI's [[facility]Shank Threader: If this call is after 3 p.m., communicate to patient: If we are not able to get back to you by the end of the day and your symptoms worsen please contact the Careline at [phone] OR at .] Is this a symptom? [...] Team Description 08/13/2022 Appointment Radiology Denise Aguirre, COFFEE MAKER, INFORMATION SECURITY CONSULTANT [address] [place] [address] (Wo rk) 08/13/2022 Appointment Hematology and Oncology Denise Aguirre, COFFEE MAKER, INFORMATION SECURITY CONSULTANT [address] [place], [place] [address] (Wo rk) documented as [...] Primary documented in this encounter Care Teams Controls Designer Relationship Specialty Start Date End Date Elyse Paredes MD PCP - General Family Practice 03/19/17 [address] [place] [address] documented as of this encounter
--- OUTSIDE RECORDS SUMMARY | 2022-07-09 14:33 | XMS_ITS | Encounter Summary ---
:1950 Author Organization [facility] Address [address] [address] Care Team Providers Name Role Phone Elyse Paredes MD Primary Care Provider Reason for Visit Reason Comments COVID Screening Encounter Details Date Type Department Care Team Description 01/16/2020 Telephone [facility] gracie Unknown, Physician COVID Screening [address], [place] [address] [place] [address] [phone] (Wo rk) Social History Tobacco Use Types [...] Patient information Best number to contact patient: [phone] Reason for Call: COVID Screening/Testing Request In [...] Team Description 08/13/2022 Appointment Radiology Denise Aguirre, SHAPING MACHINE TENDER, SHEET CUTTER [address] [place], [place] [address] (Wo rk) 08/13/2022 Appointment Hematology and Oncology Denise Aguirre, SHAPING MACHINE TENDER, SHEET CUTTER [address] [place], [place] [address] (Wo rk) documented as of this encounter Goals Goal Patient Goal Associated Recent Patient-Stated? Author Type Problems Progress Being active Diabetes Diabetes No Tree, Education Education Tanner Ng, RD, CDE Note: [...] in this encounter Care Teams Director Of Marketing Google Performance Ads Relationship Specialty Start Date End Date Elyse Paredes MD PCP - General Family Practice 03/19/17 [address] [place] [address] documented as of this encounter
--- OUTSIDE RECORDS SUMMARY | 2022-07-09 14:33 | XMS_ITS | Encounter Summary ---
:1950 Author Organization [employer] Address [address] [place] [address] Care Team Providers Name Role Phone Elyse Paredes MD Primary Care Provider Encounter Details Date Type Department Care Team Description 02/13/2020 Lab Visit [facility] Controll ed type 2 diabetes mellitus without complication, with long-term current use of insulin (HRC); Laboratory Increase in creatinine; [address] Essential hypertension; [place] [address] Hyperuricemia [phone] Social History Tobacco Use Types Packs/Day Years [...] Description 08/13/2022 Appointment Radiology Denise Aguirre, GRIFFIN, SCRIPT DEVELOPER [address] [place], [place] [address] (Wo rk) 08/13/2022 Appointment Hematology and Oncology Denise Aguirre APRN, SCRIPT DEVELOPER [address] [place], [place] [address] (Wo rk) documented as [...] Acid 8.1 (H) 2.6 - 6.0 02/13/2020 [facility] mg/dL 4:37 PM CDT CENTRAL LAB Specimen Anatomical Collection Method / Collection Time Recei gil Time (Source) Location / Volume Laterality Blood Venipuncture / 02/13/2020 1:04 02/13/2020 1:04 Unknown PM CDT PM CDT Prasanna Rivera MD LAB_1 Performing Organization Address City/State/ZIP Code Phon e Number [facility] CENTRAL LAB [address] [address] (ABNORMAL) Basic Metabolic Panel (02/13/2020 1:04 PM CDT) [facility] Time Signature Sodium 140 136 - 145 02/13/2020 [facility] mmol/L 4:37 PM CDT CENTRAL LAB Potassium 4.0 3.5 - 5.1 02/13/2020 [facility] mmol/L 4:37 PM CDT CENTRAL LAB Chloride 100 98 - 109 02/13/2020 [facility] mmol/L 4:37 PM CDT CENTRAL LAB CO2 29 20 - 29 02/13/2020 [facility] mmol/L 4:37 PM CDT CENTRAL LAB Anion Gap 11 7 - 16 02/13/2020 [facility] mmol/L 4:37 PM CDT CENTRAL LAB Calcium 9.6 8.4 - 02/13/2020 [facility] 10.4 4:37 PM CDT CENTRAL LAB mg/dL BUN 27 (H) 7 - 26 02/13/2020 [facility] mg/dL 4:37 PM CDT CENTRAL LAB Creatinine 1.24 (H) 0.55 - 02/13/2020 [facility] 1.02 4:37 PM CDT CENTRAL LAB mg/dL GFR, Estimated 45 (L) >60 02/13/2020 [facility] mL/min/1. 4:37 PM CDT CENTRAL LAB 73m2 Glucose 188 (H) 70 - 100 02/13/2020 [facility] mg/dL 4:37 PM CDT CENTRAL [...] 1:04 Unknown PM CDT PM CDT Narrative [facility] CENTRAL LAB - 02/13/2020 4:37 [...] [facility] CENTRAL LAB [address] [address] SPECIALTY CENTER [address] [place] [id number] [place] [address] LABORATORY TSH (02/13/2020 1:04 PM CDT) [facility] Method Time Signature TSH, Sensitive 2.70 0.30 - 02/13/2020 [facility] 4.50 4:54 PM CDT CENTRAL LAB uIU/mL Specimen Anatomical Collection Method / Collection Time Recei gil Time (Source) Location / Volume Laterality Blood Venipuncture / 02/13/2020 1:04 02/13/2020 1:04 Unknown PM CDT PM CDT Juan Cho MD LAB_1 Performing Organization Address City/[facility] Code Phon e Number [facility] CENTRAL LAB [address] [address] (ABNORMAL) Microalb / Creat Ratio (02/13/2020 1:04 PM CDT) [facility] Method Time Signature Albumin, 151.7 mg/L 02/14/2020 [facility] Urine, Random 12:45 PM CDT CENTRAL LAB Creatinine, 186 >20 mg/dL 02/14/2020 [facility] Urine, Random 12:45 PM CDT CENTRAL LAB Albumin/Creati 82 (H) <30 mg/g 02/14/2020 [facility] nine Ratio, 12:45 PM CDT CENTRAL LAB Urine, Random Specimen Anatomical Collection Method Collection Time Receive d Time (Source) Location / / Volume Laterality Urine Non-blood 02/13/2020 1:04 PM 0 1:04 Collection / CDT PM CDT Unknown Juan Cho MD LAB_1 Performing Organization Address City/[facility] Phon e Number [facility] CENTRAL LAB [address] [address] LDL Direct (02/13/2020 1:04 PM CDT) athologist Signature LDL, Direct 73 <=130 02/13/2020 [facility] mg/dL 4:37 PM CDT CENTRAL LAB Specimen Anatomical Collection Method / Collection Time Recei gil Time (Source) Location / Volume Laterality Blood Venipuncture / 02/13/2020 1:04 02/13/2020 1:04 Unknown PM CDT PM CDT Juan Cho MD LAB_1 Performing Organization Address [facility] Phon e Number [facility] CENTRAL LAB [address] [address] ALT (SGPT) (02/13/2020 1:04 PM CDT) athologist Signature ALT (SGPT) 21 0 - 55 U/L 02/13/2020 [facility] 4:37 PM CDT CENTRAL LAB Specimen Anatomical Collection Method / Collection Time Recei gil Time (Source) Location / Volume Laterality Blood Venipuncture / 02/13/2020 1:04 02/13/2020 1:04 Unknown PM CDT PM CDT Juan Cho MD LAB_1 Performing Organization Address [facility] e Number [facility] CENTRAL LAB [address] [address] Hgb (02/13/2020 1:04 PM CDT) athologist Signature Hemoglobin 13.0 12.0 - 15.5 02/13/2020 [facility] g/dL 1:38 PM CDT CENTER LABORATORY Specimen Anatomical Collection Method / Collection Time Recei gil Time (Source) Location / Volume Laterality Blood Venipuncture / 02/13/2020 1:04 02/13/2020 1:04 Unknown PM CDT PM CDT Juan Cho MD LAB_1 Performing Organization Address [facility] Phon e Number [facility] LABORATORY [address] [place] [address] (ABNORMAL) HgbA1c (02/13/2020 1:04 PM CDT) [facility] Method Time Signature Hemoglobin A1C 7.3 (H) <=5.6 % 02/13/2020 [facility] 4:48 PM CDT CENTRAL LAB Specimen Anatomical Collection Method / Collection Time Recei gil Time (Source) Location / Volume Laterality Blood Venipuncture / 02/13/2020 1:04 02/13/2020 1:04 Unknown PM CDT PM CDT Narrative [facility] - 02/13/2020 4:48 PM CDT For patients not previously diagnosed with diabetes: 5.7-6.4%: Increased risk for diabetes 6.5% and greater: Diagnostic for diabete s For patients diagnosed with diabetes: <8.0%: Goal of therapy for ages 18-75 Clinicians may recommend a higher or low er goal for specific individuals. Juan Cho MD LAB_1 Performing Organization Address City/State/ZIP Code Phon e Number [facility] [address] [address] documented in this encounter Visit Diagnoses Diagnosis Controlled type 2 diabetes mellitus with out complication, with long-term current use of insulin (HRC) Increase in creatinine Essential hypertension (HRC) Unspecified essential hypertension Hyperuricemia Other abnormal blood chemistry documented in this encounter Care Teams Produce Department Manager Relationship Specialty Start Date End Date Elyse Paredes MD PCP - General Family Practice 03/19/17 [address] [place] [address] documented as of this encounter
--- OUTSIDE RECORDS SUMMARY | 2022-07-09 14:33 | XMS_ITS | Encounter Summary ---
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 ?? Https://www.[employer]/how-to-use/lpo-idzvnwj-wth.html ? Main side effect nausea and vomiting. [...] return visit. ? Video visit Clinician location: [facility] endocrinology office [facility] location Patient location: home Total visit time [...] Team Description 08/13/2022 Appointment Radiology Denise Aguirre, MIXING MACHINE TENDER, POLYSOMNOGRAPHIC TECHNICIAN [address] [place], [place] [address] (Wo delta) 08/13/2022 Appointment Hematology and Oncology Denise Aguirre APRN, POLYSOMNOGRAPHIC TECHNICIAN [address] [place], [place] [address] (Wo rk) documented as [...] this encounter Results TSH (08/06/2020 2:01 PM WATER MANGLE TENDER) [facility] [employer] Method Time Signature TSH, Sensitive 3.04 0.30 - 08/06/2020 [employer] 4.50 5:21 PM WATER MANGLE TENDER CENTRAL LAB uIU/mL Specimen Anatomical Collection Method / Collection Time Recei gil Time (Source) Location / Volume Laterality Blood Venipuncture / 08/06/2020 2:01 08/06/2020 2:01 Unknown PM WATER MANGLE TENDER PM WATER MANGLE TENDER Juan Cho MD LAB_1 Performing Organization Address City/State/ZIP Code Phon e Number [facility] [address] [address] Microalb / Creat Ratio (08/06/2020 2:01 PM WATER MANGLE TENDER) [facility] [employer] Method Time Signature Albumin, 19.2 mg/L 08/06/2020 [facility] Urine, Random 6:45 PM WATER MANGLE TENDER CENTRAL LAB Creatinine, 189 >20 mg/dL 08/06/2020 [facility] Urine, Random 6:45 PM WATER MANGLE TENDER CENTRAL LAB Albumin/Creati 10 <30 mg/g 08/06/2020 [facility] nine Ratio, 6:45 PM WATER MANGLE TENDER CENTRAL LAB Urine, Random Specimen Anatomical Collection Method Collection Time Receive d Time (Source) Location / / Volume Laterality Urine Non-blood 08/06/2020 2:01 PM 2:01 Collection / WATER MANGLE TENDER PM WATER MANGLE TENDER Unknown Juan Cho MD LAB_1 Performing Organization Address [facility]/ZIP Code Phon e Number [facility] CENTRAL LAB [address] [address] ALT (SGPT) (08/06/2020 2:01 PM WATER MANGLE TENDER) athologist Signature ALT (SGPT) 27 0 - 55 U/L 08/06/2020 [facility] 5:27 PM WATER MANGLE TENDER CENTRAL LAB Specimen Anatomical Collection Method / Collection Time Recei gil Time (Source) Location / Volume Laterality Blood Venipuncture / 08/06/2020 2:01 08/06/2020 2:01 Unknown PM WATER MANGLE TENDER PM WATER MANGLE TENDER Juan Cho MD LAB_1 Performing Organization Address [facility] Phon e Number [facility] CENTRAL LAB [address] [address] Hgb (08/06/2020 2:01 PM WATER MANGLE TENDER) athologist Signature Hemoglobin 13.7 12.0 - 15.5 08/06/2020 [facility] g/dL 2:14 PM WATER MANGLE TENDER CENTER LABORATORY Specimen Anatomical Collection Method / Collection Time Recei gil Time (Source) Location / Volume Laterality Blood Venipuncture / 08/06/2020 2:01 08/06/2020 2:01 Unknown PM WATER MANGLE TENDER PM WATER MANGLE TENDER Juan Cho MD LAB_1 Performing Organization Address City/[facility]/ZIP Code Phon e Number [facility] LABORATORY [address] [place] [address] (ABNORMAL) HgbA1c (08/06/2020 2:01 PM WATER MANGLE TENDER) [facility] Method Time Signature Hemoglobin A1C 8.2 (H) <=5.6 % 08/06/2020 [facility] 7:02 PM WATER MANGLE TENDER CENTRAL LAB Specimen Anatomical Collection Method / Collection Time Recei gil Time (Source) Location / Volume Laterality Blood Venipuncture / 08/06/2020 2:01 08/06/2020 2:01 Unknown PM WATER MANGLE TENDER PM WATER MANGLE TENDER Narrative [facility] CENTRAL LAB - 08/06/2020 7:02 PM WATER MANGLE TENDER For patients not previously diagnosed with diabetes: 5.7-6.4%: Increased risk for diabetes 6.5% and greater: Diagnostic for diabete s For patients diagnosed with diabetes: <8.0%: Goal of therapy for ages 18-75 Clinicians may recommend a higher or low er goal for specific individuals. Juan Cho MD LAB_1 Performing Organization Address City/[facility]/ZIP [facility] Phon e Number [facility] CENTRAL LAB [address] [address] LDL Direct (08/06/2020 2:01 PM WATER MANGLE TENDER) athologist Signature LDL, Direct 82 <=130 08/06/2020 [facility] mg/dL 5:27 PM WATER MANGLE TENDER CENTRAL LAB Specimen Anatomical Collection Method / Collection Time Recei gil Time (Source) Location / Volume Laterality Blood Venipuncture / 08/06/2020 2:01 08/06/2020 2:01 Unknown PM WATER MANGLE TENDER PM WATER MANGLE TENDER Juan Cho MD LAB_1 Performing Organization Address City/[facility] Phon e Number [facility] [address] [address] documented in this encounter Visit Diagnoses Diagnosis Dyslipidemia, goal LDL below 100 (HRC) - Primary Other and unspecified hyperlipidemia Obesity, morbid, BMI 50 or higher (HRC) Malignant neoplasm of left breast in fem grey, estrogen receptor positive, unspecified site of breast (HRC) Obesity, unspecified obesity severity, u nspecified obesity type (HRC) Essential hypertension (HRC) Unspecified essential hypertension 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
--- OUTSIDE RECORDS SUMMARY | 2022-07-09 14:33 | XMS_ITS | Encounter Summary ---
:1950 Author Organization [facility] Address [address] [place] [address] Care Team Providers Name Role Phone Elyse Paredes MD Primary Care Provider Reason for Referral Consult/Transfer Care (Routine) - Closed Specialty Diagnoses / Procedures Referred By Contact Refer red To Contact Diagnoses Controlled type 2 diabetes mellitus without complication, with long-term current use of insulin (HRC) Juan Cho MD [address] [place] [address] Referral ID Status Reason Start Date Expiration Date Visits Requ ested Visits Authorized [id number] Closed 10/06/2019 01/04/2021 1 1 Scheduling Instructions Your provider has recommended an appoint ment with [facility]. You may call [phone] to schedule your appoi ntment. If you prefer, a hand booked folder and stitcher will contact you within the next 3 business d ays to assist you in setting up this appointment. We suggest you call your [employer] insurance company about your coverage and benefits for this appointment. NCIAL ADVISOR TRAINEE Reason for Visit Reason Comments FOLLOW-UP,DIABETES Encounter Details Date Type Department Care Team Description 10/06/2019 Office Visit Specialty Center [address] Juan Cho, Controlled type 2 diabetes mellitus without complication, with long-term current use of insulin (HRC) (Primary Dx); End[facility]ology Clinic Coronary artery disease involving [place] coronary artery of nui[place] heart without angina pectoris; [address] Essential hypertension; [place] [address] [place], [place] Dyslipidemia, goal LDL below 100; [phone] [address] Obesity, morbid, BMI 50 or higher ([facility]); [phone] Malignant neopl asm of left breast in female, estrogen receptor positive, unspecified site of breast ([facility]) (Work) Social History Tobacco Use Types [...] Comments Blood Pressure 126/67 10/06/2019 1:55 PM FINANCIAL ADVISOR TRAINEE Pulse 81 10/06/2019 1:55 PM FINANCIAL ADVISOR TRAINEE Temperature - - Respiratory Rate - - Oxygen Saturation - - Inhaled Oxygen Concentration - - Weight 130 kg (286 lb 9.6 oz) 10/06/2019 1:55 PM FINANCIAL ADVISOR TRAINEE Height - - Body Mass Index 52.42 09/16/2018 11:15 AM FINANCIAL ADVISOR TRAINEE documented in this encounter Patient Instructions Patient [...] Video tutorial on how to use ozempic. Https://www.[employer]/how-to-use/hhj-taoylzt-lyw.html Main side effect nausea and vomiting. If [...] to return visit. To set up a [facility] lab visit call [phone] , or schedule on line using the My Chart program. The To schedule a future Endocrine visit call [phone] or utilize my chart If you have questions please call the Endocrine Department [phone] option #3. If you are unable to reach a nurse on the above phone line contact the nurse care line available 24 hours a day at [phone] Mailing address Luis Fernando Cho M.D. [address] [place] [address] Mail Stop: [id number] NCIAL ADVISOR TRAINEE documented in this encounter Progress Notes Juan [...] Video tutorial on how to use ozempic. Https://www.ozempic.com/how-to-use/hig-bxeqilv-jsf.html Main side effect nausea and vomiting. If [...] Description 08/13/2022 Appointment Radiology Denise Aguirre APRN, CHIEF OF ANESTHESIOLOGY [address] [place], [place] [address] (Wo rk) 08/13/2022 Appointment Hematology and Oncology Denise Aguirre APRN, CHIEF OF ANESTHESIOLOGY [address] [place], [place] [address] (Wo rk) Scheduled Referrals [...] encounter Results TSH (02/13/2020 1:04 PM CDT) [facility] [employer] Method Time Signature TSH, Sensitive 2.70 0.30 - 02/13/2020 [facility] 4.50 4:54 PM CDT CENTRAL LAB uIU/mL Specimen Anatomical Collection Method / Collection Time Recei gil Time (Source) Location / Volume Laterality Blood Venipuncture / 02/13/2020 1:04 02/13/2020 1:04 Unknown PM CDT PM CDT Juan Cho MD LAB_1 Performing Organization Address City/State/ZIP Code Phon e Number [facility] CENTRAL LAB [address] [address] (ABNORMAL) Microalb / Creat Ratio (02/13/2020 1:04 PM CDT) [facility] [employer] Method Time Signature Albumin, 151.7 mg/L 02/[facility]/2020 [facility] Urine, Random 12:45 PM CDT CENTRAL LAB Creatinine, 186 >20 mg/dL 02/14/2020 [facility] Urine, Random 12:45 PM CDT CENTRAL LAB Albumin/Creati 82 (H) <30 mg/g 02/14/2020 [facility] nine Ratio, 12:45 PM CDT CENTRAL LAB Urine, Random Specimen Anatomical Collection Method Collection Time Receive d Time (Source) Location / / Volume Laterality Urine Non-blood 02/13/2020 1:04 PM 0 1:04 Collection / CDT PM CDT Unknown Juan Cho MD LAB_1 Performing Organization Address [facility] CENTRAL LAB [address] [place] [address] LDL Direct (02/13/2020 1:04 PM CDT) athologist Signature LDL, Direct 73 <=130 02/13/2020 [facility] mg/dL 4:37 PM CDT CENTRAL LAB Specimen Anatomical Collection Method / Collection Time Recei gil Time (Source) Location / Volume Laterality Blood Venipuncture / 02/13/2020 1:04 02/13/2020 1:04 Unknown PM CDT PM CDT Juan Cho MD LAB_1 Performing Organization Address [facility] CENTRAL LAB [address] [place] [address] ALT (SGPT) (02/13/2020 1:04 PM CDT) athologist Signature ALT (SGPT) 21 0 - 55 U/L 02/13/2020 [facility] 4:37 PM CDT CENTRAL LAB Specimen Anatomical Collection Method / Collection Time Recei gil Time (Source) Location / Volume Laterality Blood Venipuncture / 02/13/2020 1:04 02/13/2020 1:04 Unknown PM CDT PM CDT Juan Cho MD LAB_1 Performing Organization Address [facility] CENTRAL LAB [address] [place] [address] Hgb (02/13/2020 1:04 PM CDT) athologist Signature [...] Number [facility]OR[facility]ORY [address] [place] [address] (ABNORMAL) HgbA1c (02/13/2020 1:04 PM CDT) [facility] gist Method Time Signature Hemoglobin A1C 7.3 (H) <=5.6 % 02/13/2020 [employer] 4:48 PM CDT CENTRAL LAB Specimen Anatomical Collection Method / Collection Time Recei gil Time (Source) Location / Volume Laterality Blood Venipuncture / 02/13/2020 1:04 02/13/2020 1:04 Unknown PM CDT PM CDT Narrative [facility] CENTRAL LAB - 02/13/2020 4:48 PM CDT For patients not previously diagnosed with diabetes: 5.7-6.4%: Increased risk for diabetes 6.5% and greater: Diagnostic for diabete s For patients diagnosed with diabetes: <8.0%: Goal of therapy for ages 18-75 Clinicians may recommend a higher or low er goal for specific individuals. Juan Cho MD LAB_1 Performing Organization Address City/[facility]/ZIP Code Phon e Number [facility] CENTRAL LAB [address] [address] documented in this encounter Visit Diagnoses Diagnosis Controlled type 2 diabetes mellitus with out complication, with long-term current use of insulin (HRC) - Primary Coronary artery disease involving [place] coronary artery of nui[place] heart without angina pectoris (HRC) Essential hypertension (HRC) Unspecified essential hypertension Dyslipidemia, goal LDL below 100 (HRC) Other and unspecified hyperlipidemia Obesity, morbid, BMI 50 or higher (HRC) Malignant neoplasm of left breast in fem grey, estrogen receptor positive, unspecified site of breast (HRC) documented in this encounter Care Teams Heavy Equipment Operator/Paver Relationship Specialty Start Date End Date Elyse Paredes MD PCP - General Family Practice 03/19/17 [address] [address] documented as of this encounter
--- OUTSIDE RECORDS SUMMARY | 2022-07-09 14:33 | XMS_ITS | Encounter Summary ---
:1950 Author Organization [facility] Address [address] [place] [address] Care Team Providers Name Role Phone Elyse Paredes MD Primary Care Provider Reason for Visit Procedure/Equipment (Routine) - Incomplete Specialty Diagnoses / Procedures Referred By Contact Refer red To Contact Diagnoses Malignant neoplasm of left breast in female, estrogen receptor positive, unspecified site of breast (HRC) History of lumpectomy of left breast Left breast lump Elisa Madrid, Procedures US Breast Lt MBBS [address] [place] [address] Referral ID Status Reason Start Date Expiration Date Visits V isits Requested Authorized [id number] Incomplete 11/03/2019 02/01/2021 1 1 Encounter Details Date Type Department Care Team Description 11/07/2019 Ancillary [facility] Jahagirdar, Malignant yash plasm of left breast in female, estrogen receptor positive, unspecified site of breast (HRC); Procedure [facility] Aldana History of lumpectomy of left breast; [address] [facility]. [address] [facility] [place] [id number] Social History Tobacco Use Types Packs/Day Years [...] Team Description 08/13/2022 Appointment Radiology Denise Aguirre, FORESTRY ADVISER, INSULATOR APPRENTICE [address] [place], [place] [address] (Wo rk) 08/13/2022 Appointment Hematology and Oncology Denise Agiurre, FORESTRY ADVISER, INSULATOR APPRENTICE [address] [place], [place] [address] (Wo rk) documented as [...] original. EXAM: MM US BREAST LT LOCATION: [facility] DATE/TIME: 11/07/2019 8:31 AM INDICATION: 69-year-old [...] breast documented in this encounter Care Teams Band Cutting Machine Operator Relationship Specialty Start Date End Date Elyse Paredes MD PCP - General Family Practice 03/19/17 [address] [place] [address] documented as of this encounter
--- OUTSIDE RECORDS SUMMARY | 2022-07-09 14:33 | XMS_ITS | Encounter Summary ---
:1950 Author Organization [facility] Address [address] [place] [address] Care Team Providers Name Role Phone Elyse Paredes MD Primary Care Provider Encounter Details Date Type Department Care Team Description 10/04/2019 Orders Only External to Elyse Paredes MD [address] [place], [place] [address] (Wo rk) Social History [...] Description 08/13/2022 Appointment Radiology Denise Aguirre, DIRECTOR OF COMMUNICATIONS, SCHEDULING SPECIALIST [address] [place], [place] [address] (Wo rk) 08/13/2022 Appointment Hematology and Oncology Denise Aguirre APRN, SCHEDULING SPECIALIST [address] [place], [place] [address] (Wo rk) documented as [...] LAB 10/04/2019 12:00 AM Results for this DIRECTOR HARDWARE procedure are i n the results section . documented in this encounter Results SCANNED LAB (10/04/2019 12:00 AM DIRECTOR HARDWARE) Specimen (Source) Anatomical Location Collection Method / Collectio n Time Received Time / Laterality Volume 10/04/2019 Narrative This result has an attachment that is no t available. Elyse Paredes MD LAB_1 documented in this encounter Visit Diagnoses Not on filedocumented in this encounter Care Teams Computer Engineering Technologist Relationship Specialty Start Date End Date Elyse Paredes MD PCP - General Family Practice 03/19/17 [address] [place] [address] documented as of this encounter
--- OUTSIDE RECORDS SUMMARY | 2022-07-09 14:34 | XMS_ITS | Encounter Summary ---
:1950 Author Organization [facility] Address [address] [place] [address] Care Team Providers Name Role Phone Elyse Paredes MD Primary Care Provider Encounter Details Date Type Department Care Team Description 07/21/2019 Office Visit [facility] Cancer Rubén, Malign ant neoplasm of overlapping sites of left breast in female, estrogen receptor positive (HRC) (Primary Dx); Center at [facility] Cathleen John PA-C Fatigue, unspecified type; [address] Arthralgia, unspecified joint [address] [place] [address] [phone] Social History Tobacco Use Types Packs/Day Years [...] Comments Blood Pressure 143/81 07/21/2019 2:56 PM ASSISTANT DIRECTOR OF NURSING Pulse 88 07/21/2019 2:56 PM ASSISTANT DIRECTOR OF NURSING Temperature 36.5 ??C (97.7 ??F) 07/21/2019 2:56 PM ASSISTANT DIRECTOR OF NURSING Respiratory Rate - - Oxygen Saturation - - Inhaled Oxygen Concentration - - Weight 129.3 kg (285 lb) 07/21/2019 2:56 PM ASSISTANT DIRECTOR OF NURSING Height - - Body Mass Index 52.13 09/16/2018 11:15 AM ASSISTANT DIRECTOR OF NURSING documented in this encounter Patient Instructions Patient InstructionsCathleen Yeboah PA-C - 07/21/2019 3:00 PM CST Marci Diaz, It was a pleasure to see you today! Your treatment plan is as follows: Arimidex 1 mg daily Return to the clinic in [address] Madrid. Call with any questions or concerns. The clinic phone number is [phone]. After hours, please call the nurse care line at [phone]. All the Cathleen ha PA-C Appointment made and AVS given HAEKEM Askew 07/21/2019, 3:30 PM STANT DIRECTOR OF NURSING documented in this encounter Progress Notes Cathleen Yeboah PA-C - 07/21/2019 3:00 PM CST [facility] Oncology/Hematology Follow up Visit Note Date: 07/21/2019 [...] 30 Tablet 11 ??? Continuous Blood Gluc Wrapper Hand (DEXCOM G6 FLOOR MOLDER) JAY Use as directed for continuous glucose monitoring. 1 Device 0 ??? Continuous Blood Gluc Sensor (DEXCOM G6 SENSOR) [facility] Use as directed for continuous glucose monitoring. Change sensor every 10 days. 1 Each 13 ??? Continuous Blood Gluc Transmit (DEXCOM G6 TRANSMITTER) [facility] Use as directed for continuous glucose monitoring. Change every 3 months. 1 Each 4 ??? dulaglutide (TRULICITY) 1.5 MG/0.5ML injeciton pen Inject 0.5 mL subcutaneously once every week.6 mL 3 ??? famotidine (PEPCID) 10 MG tablet Take 10 mg by mouth. 03/19/2017: [facility] Received Sig: Take 10 mg by [...] Take 1/2 tab daily 03/19/2017: Received from: [facility] [employer] ??? warfarin (COUMADIN) 2.5 MG tablet TAKE [...] note. Cathleen Yeboah PA-C 07/21/2019, 3:27 PM STANT DIRECTOR OF NURSING Ashlee Romero RN - 07/21/2019 3:00 PM CST Completed per physician's orders. Ashlee Romero RN 3:41 PM 07/21/2019 STANT DIRECTOR OF NURSING documented in this encounter Plan of Treatment Upcoming Encounters Date Type Specialty Care Team Description 08/13/2022 Appointment Radiology Denise Aguirre, 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 TECHNICIAN, JUTE BAG CLIPPER [address] [place], [place] [address] (Wo rk) 08/13/2022 Appointment Hematology and Oncology Denise Aguirre APRN, JUTE BAG CLIPPER [address] [place], [place] [address] (Wo rk) documented [...] joint documented in this encounter Care Teams Senior Manufacturing Engineer Relationship Specialty Start Date End Date Elyse Paredes MD PCP - General Family Practice 03/19/17 [address] [place], [place] [address] documented as of this encounter
--- OUTSIDE RECORDS SUMMARY | 2022-07-09 14:34 | XMS_ITS | Encounter Summary ---
:1950 Author Organization [facility] Address [address] [place] [address] Care Team Providers Name Role Phone Elyse Paredes MD Primary Care Provider Reason for Referral Procedure/Equipment (Routine) - Incomplete Specialty Diagnoses / Procedures Referred By Contact Refer red To Contact Procedures Elyse Paredes MD MM Mammogram Screening Bilat [address] [place] [address] Referral ID Status Reason Start Date Expiration Date Visits V isits Requested Authorized [id number] Incomplete 07/21/2019 10/19/2020 1 1 BER LIGHT Reason for Visit Procedure/Equipment (Routine) - Incomplete Specialty Diagnoses / Procedures Referred By Contact Refer red To Contact Procedures Elyse Paredes MD MM Mammogram Screening Bilat [address] [place] [address] Referral ID Status Reason Start Date Expiration Date Visits V isits Requested Authorized [id number] Incomplete 07/21/2019 10/19/2020 1 1 Encounter Details Date Type Department Care Team Description 07/21/2019 Ancillary Procedure [facility] Elyse Paredes MD Center [address] [place] [address] [place] [address] [phone] Social History Tobacco Use Types Packs/Day Years [...] Description 08/13/2022 Appointment Radiology Denise Aguirre, HEAD TRACK COACH, FLIGHT INSPECTOR [address] [place], [place] [address] (Wo rk) 08/13/2022 Appointment Hematology and Oncology Denise Aguirre, HEAD TRACK COACH, FLIGHT INSPECTOR [address] [place], [place] [address] (Wo rk) documented as [...] Results f or this SCREENING BILAT W SLABBER LIGHT procedure are in 3D BRAVO W CAD the results section. documented in this encounter Results MM Mammogram Screening Bilat W 3D Bravo W CAD (07/21/2019 2:05 PM SLABBER LIGHT) Anatomical Region Laterality Modality Breast Bilateral Mammography Specimen (Source) Anatomical Location Collection Method / Collectio n Time Received Time / Laterality Volume Impressions 07/21/2019 2:11 PM SLABBER LIGHT : ACR BI-RADS Category 2: Benign RECOMMENDATION: Follow Up Imaging in 12 months - Bilateral The results and recommendations of this examination will be communicated to the patient. Narrative 07/21/2019 2:11 PM SLABBER LIGHT MM MAMMOGRAM SCREENING BILAT W 3D BRAVO [...] on filedocumented in this encounter Care Teams Receiver Bulk System Relationship Specialty Start Date End Date Elyse Paredes MD PCP - General Family Practice 03/19/17 [address] [place] [address] documented as of this encounter
--- OUTSIDE RECORDS SUMMARY | 2022-07-09 14:34 | XMS_ITS | Encounter Summary ---
:1950 Author Organization [facility] [employer] Address [address], [place] [address] Care Team Providers Name Role Phone Elyse Paredes MD Primary Care Provider Encounter Details Date Type Department Care Team Description 03/08/2019 Orders Only External to Elyse Paredes MD [address] [place], [place] [address] (Wo rk) Social History [...] Team Description 08/13/2022 Appointment Radiology Denise Aguirre, GOLF STARTER AND RANGER, MACHINE TOOL DRESSER [address] [place], [place] [address] (Wo rk) 08/13/2022 Appointment Hematology and Oncology Denise Aguirre APRN, MACHINE TOOL DRESSER [address] [place], [place] [address] (Wo rk) documented as [...] filedocumented in this encounter Care Teams Principal Technical Architect Relationship Specialty Start Date End Date Elyse Paredes MD PCP - General Family Practice 03/19/17 [address] [place] [address] documented as of this encounter
--- OUTSIDE RECORDS SUMMARY | 2022-07-09 14:34 | XMS_ITS | Encounter Summary ---
:1950 Author Organization [facility] Address [address], [place] [address] Care Team Providers Name Role Phone Elyse Paredes MD Primary Care Provider Encounter Details Date Type Department Care Team Description 07/17/2019 Orders Only External to Elyse Paredes MD [address] [place], [place] [address] (Wo rk) Social History [...] Team Description 08/13/2022 Appointment Radiology Denise Aguirre, CUSTODIAN ATHLETIC EQUIPMENT, PROFESSIONAL MODEL [address] [place], [place] [address] (Wo rk) 08/13/2022 Appointment Hematology and Oncology Denise Aguirre APRN, PROFESSIONAL MODEL [address] [place], [place] [address] (Wo rk) documented as [...] LAB 07/17/2019 12:00 AM Results for this ORGAN PIPE FINISHER procedure are i n the results section . documented in this encounter Results SCANNED LAB (07/17/2019 12:00 AM ORGAN PIPE FINISHER) Specimen (Source) Anatomical Location Collection Method / Collectio n Time Received Time / Laterality Volume 07/17/2019 Narrative This result has an attachment that is no t available. Elyse Paredes MD LAB_1 documented in this encounter Visit Diagnoses Not on filedocumented in this encounter Care Teams Supervisor Intelligence Analyst Relationship Specialty Start Date End Date Elyse Paredes MD PCP - General Family Practice 03/19/17 [address] [place] [address] documented as of this encounter
--- OUTSIDE RECORDS SUMMARY | 2022-07-09 14:34 | XMS_ITS | Encounter Summary ---
:1950 Author Organization [facility] Address [address] [place] [address] Care Team Providers Name Role Phone Elyse Paredes MD Primary Care Provider Encounter Details Date Type Department Care Team Description 07/21/2019 Notes/Orders [facility] Cathleen [place], at [id number] [place] [address] [phone] (Wo rk) Social History Tobacco Use Types [...] Care Team Description 08/13/2022 Appointment Radiology Denise Aguirer, PLASTIC WELDER, EXHIBIT ELECTRICIAN [address] [place], [place] [address] (Wo rk) 08/13/2022 Appointment Hematology and Oncology Denise Aguirre, PLASTIC WELDER, EXHIBIT ELECTRICIAN [address] [place], [place] [address] (Wo rk) documented as [...] on filedocumented in this encounter Care Teams Roofer Relationship Specialty Start Date End Date Elyse Paredes MD PCP - General Family Practice 03/19/17 [address] [place] [address] documented as of this encounter
--- OUTSIDE RECORDS SUMMARY | 2022-07-09 14:34 | XMS_ITS | Encounter Summary ---
:1950 Author Organization [employer] Address [address] [place] [address] Care Team Providers Name Role Phone Elyse Paredes MD Primary Care Provider Reason for Visit Reason Comments FOLLOW-UP,DIABETES Encounter Details Date Type Department Care Team Description 04/07/2019 Office Visit Specialty Center [address] Cho, Controlled type 2 diabetes mellitus without complication, with long-term current use of insulin (HRC) (Primary Dx); Endocrinology Clinic Coronary artery disease involving [place] coronary artery of [place] heart without angina pectoris; [address] Dyslipidemia, goal LDL below 100; [place] [address] [place], [place] Essential hypertension; [phone] Obesity, morbid, BMI 50 or higher ([facility]) Social History Tobacco Use Types [...] Body Mass Index 50.3 09/16/2018 11:15 AM DOOR HANGER documented in this encounter Patient Instructions Patient [...] to return visit. To set up a [facility] lab visit call [phone] , or schedule on line using the [employer] Chart program. To schedule a future Endocrine visit call [phone] or utilize my chart If you have questions please call the Endocrine Department [phone] option #3. If you are unable to reach a nurse on the above phone line contact the nurse care line available 24 hours a day at [phone] Mailing address Luis Fernando Cho M.D. [address] [place], [place] [id number] Mail Stop: [id number] documented in this encounter Progress Notes Juan [...] Description 08/13/2022 Appointment Radiology Denise Aguirre, GRIFFIN, SUPERVISOR WRAPPING ROOM [address] [place], [place] [address] (Wo rk) 08/13/2022 Appointment Hematology and Oncology Denise Aguirre, CULTURED MARBLE PRODUCTS MAKER, SUPERVISOR WRAPPING ROOM [address] [place], [place] [address] (Wo rk) [...] e Number [facility] [address] [place] [address] (ABNORMAL) HgbA1c (12/21/2019 12:30 PM CDT) Patholo gist Method Time Signature Hemoglobin A1C 7.6 (H) <=5.6 % 12/21/2019 [facility] 4:46 PM CDT CENTRAL LAB Specimen Anatomical Collection Method / Collection Time Recei gil Time (Source) Location / Volume Laterality Blood Venipuncture / 12/21/2019 12:30 0 Unknown PM CDT 12:30 PM CDT Narrative [facility] CENTRAL LAB - 12/21/2019 4:46 PM CDT For patients not previously diagnosed with diabetes: 5.7-6.4%: Increased risk for diabetes 6.5% and greater: Diagnostic for diabete s For patients diagnosed with diabetes: <8.0%: Goal of therapy for ages 18-75 Clinicians may recommend a higher or low er goal for specific individuals. Juan Cho MD LAB_1 Performing Organization Address [facility] Phon e Number [facility] C[facility]AL [facility] [address] [address] ALT (SGPT) (12/21/2019 12:30 PM CDT) athologist Signature ALT (SGPT) 18 0 - 55 U/L 12/21/2019 [facility] 6:21 PM CDT CENTRAL LAB Specimen Anatomical Collection Method / Collection Time Recei gil Time (Source) Location / Volume Laterality Blood Venipuncture / 12/21/2019 12:30 0 Unknown PM CDT 12:30 PM CDT Juan Cho MD LAB_1 Performing Organization Address [facility] Phon e Number [facility]AL [facility] [address] [address] Microalb / Creat Ratio (12/21/2019 12:30 PM CDT) [facility] Method Time Signature Albumin, 29.2 mg/L 12/21/2019 [facility] Urine, Random 6:41 PM CDT CENTRAL LAB Creatinine, 198 >20 mg/dL 12/21/2019 [facility] Urine, Random 6:41 PM CDT CENTRAL LAB Albumin/Creati 15 <30 mg/g 12/21/2019 [facility] nine Ratio, 6:41 PM CDT CENTRAL LAB Urine, Random Specimen Anatomical Collection Method Collection Time Receive d Time (Source) Location / / Volume Laterality Urine,random 12/21/2019 12:30 12/21/2019 PM CDT 12:30 PM CDT Juan Cho MD LAB_1 Performing Organization Address [facility]/ZIP Code Phon e Number [employer] CENTRAL LAB [address] [address] LDL Direct (12/21/2019 12:30 PM CDT) P athologist Signature LDL, Direct 99 <=130 12/21/2019 [facility] mg/dL 6:21 PM CDT CENTRAL LAB Specimen Anatomical Collection Method / Collection Time Recei gil Time (Source) Location / Volume Laterality Blood Venipuncture / 12/21/2019 12:30 0 Unknown PM CDT 12:30 PM CDT Juan Cho MD LAB_1 Performing Organization Address [facility] Phon e Number [employer] CENTRAL LAB [address] [address] documented in this encounter Visit Diagnoses Diagnosis Controlled type 2 diabetes mellitus with out complication, with long-term current use of insulin (HRC) - Primary Coronary artery disease involving [place] coronary artery of [place] heart without angina pectoris (HRC) Dyslipidemia, goal LDL below 100 (HRC) Other and unspecified hyperlipidemia Essential hypertension (HRC) Unspecified essential hypertension Obesity, morbid, BMI 50 or higher (HRC) documented in this encounter Care Teams Music Director Relationship Specialty Start Date End Date Elyse Paredes MD PCP - General Family Practice 03/19/17 [address] [place] [address] documented as of this encounter
--- OUTSIDE RECORDS SUMMARY | 2022-07-09 14:34 | XMS_ITS | Encounter Summary ---
:1950 Author Organization [employer] Address [address] [place] [address] Care Team Providers Name Role Phone Elyse Paredes MD Primary Care Provider Reason for Visit Reason Comments Supplies Encounter Details Date Type Department Care Team Description 03/08/2019 Telephone Specialty Center [address] Freya Cho MD Supplies Endocrinology Clinic [address] [place] [address] [place] [address] [phone] Social History Tobacco Use Types Packs/Day Years Used Date Smoking Tobacco: Former Cigarettes Quit : 08/02/1981 Smokeless Tobacco: Never Alcohol Use Standard Drinks/Week Comments No 0 (1 standard drink = 0.6 oz pure alcoho l) Sex Assigned at Date Recorded Not on file documented as of this encounter Nursing Notes Jacquelyn Matos RN - 03/09/2019 3:12 PM CDT Spoke with care management assistantErnesto. States that pt's insurance does not cover at [facility] A pharmacy along. Needs a new Rx for Dexcom transmitters, sensors, and dye house hand to [facility]. 3 Rxs were sent to pharmacy requested. No further questions or concerns. Jacquelyn Matos RN 03/09/2019, 3:14 PM Ofelia Wells - 03/09/2019 8:15 AM CDT Ernesto returning phone call. Please contact [phone] back. Ofelia Wells Jacquelyn Matos RN - 03/08/2019 4:27 PM CDT Left message for Ernesto to call back. Jacquelyn Matos RN 03/08/2019, 4:27 PM Afsaneh Osborne - 03/08/2019 3:34 PM CDT Miscellaneous Questions & FYI's [[facility]: If this call is after 3 p.m., communicate to patient: If we are not able to get back to you by the end of the day and your symptoms worsen please contact the Careline at [phone] OR at .] Is this a symptom? [...] Green first before ordering her supplies, at [phone], Thanks Have you recently been seen for this? unknown Is it okay to leave a detailed message on your voicemail? unknown Afsaneh Osborne documented in this encounter Plan of Treatment Upcoming Encounters Date Type Specialty Care Team Description 08/13/2022 Appointment Radiology Denise Aguirre, FORMS ANALYST, TOLL COLLECTOR SUPERVISOR [address] [place], [place] [address] (Wo rk) 08/13/2022 Appointment Hematology and Oncology Denise Aguirre APRN, TOLL COLLECTOR SUPERVISOR [address] [place], [place] [address] (Wo rk) documented as [...] on filedocumented in this encounter Care Teams Studio Operation Engineer Relationship Specialty Start Date End Date Elyse Paredes MD PCP - General Family Practice 03/19/17 [address] [place] [address] documented as of this encounter
--- OUTSIDE RECORDS SUMMARY | 2022-07-09 14:34 | XMS_ITS | Encounter Summary ---
:1950 Author Organization [employer] Address [address] [place] [address] Care Team Providers Name Role Phone Elyse Paredes MD Primary Care Provider Encounter Details Date Type Department Care Team Description 08/03/2019 Refill Order Specialty Center [address], Endocrinology Clinic ELEPHANT TAMER, DNP [address] [place] [address] [place] [address] [phone] (Wo rk) Social History Tobacco Use Types [...] Description 08/13/2022 Appointment Radiology Denise Aguirre APRN, NAVIGATION OFFICER [address] [place], [place] [address] (Wo rk) 08/13/2022 Appointment Hematology and Oncology Denise Aguirre APRN, NAVIGATION OFFICER [address] [place], [place] [address] (Wo rk) [...] medications documented in this encounter Care Teams Ditching Machine Engineer Relationship Specialty Start Date End Date Elyse Paredes MD PCP - General Family Practice 03/19/17 [address] [place] [address] documented as of this encounter
--- OUTSIDE RECORDS SUMMARY | 2022-07-09 14:34 | XMS_ITS | Encounter Summary ---
:1950 Author Organization [facility] Address [address] [place] [address] Care Team Providers Name Role Phone Elyse Paredes MD Primary Care Provider Encounter Details Date Type Department Care Team Description 02/10/2019 Office Visit [facility] Petrona Madrid neoplasm Center at [facility] JORDAN Aldana of left breast in Hospital 640 [facility] female, estrogen 640 [place], [place] receptor positive, [place] [address] unspecified site of [phone] (Wo rk) breast (HRC) (Primary Dx) Social [...] Body Mass Index 50.85 09/16/2018 11:15 AM DATA ENTRY MANAGER documented in this encounter Patient Instructions Patient InstructionsElisa Madrid MBBS - 02/10/2019 1:50 PM CDT Dear Marci, It was a pleasure to see you. Plan: 1. Start anastrozole 1 mg daily. 2. Calcium 1200 mg and vitamin D 1000 units per day through diet and supplement. 3. In 4-6 months: Diagnostic mammograms and follow up with Nanda Vaca, FUNERAL WORKERS, PEST CONTROL SPECIALIST. Please do not hesitate to contact us at [phone] any time. Thank you. Sincerely, JORDAN Jiang.......02/10/2019 Appt scheduled/ AVS given/[facility] . ML 02/10/2019, 3:14 PM documented in this encounter Progress Notes Ruth Das MD - 02/10/2019 1:50 PM CDT Medical Oncology Note Date of Service: 02/10/2019 Cancer Summary (Printed and given to the patient): Diagnosis, Stage, Prognostic Factors: ?? 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 Physical exam: [...] Oncotype DX recurrence score of 10, the year risk of distant recurrence of three [...] mammograms and follow up with Nanda Vaca, FUNERAL WORKERS, PEST CONTROL SPECIALIST. Patient seen and plan discussed with Dr. Madrid. JORDAN Wade Hematology/Oncology Fellow 02/10/2019, 4:48 PM Michelle Barton RN - 02/10/2019 1:50 PM CDT Completed per physician's orders. Tricia Barton RN 8:41 AM 02/13/2019 Elisa Madrid MBBS - 02/10/2019 1:50 PM CDT I have seen the patient in association with Dr. Ruth Das MD, Oncology- Hematology Fellow, [facility], whose note from this visit reflects our combined findings, assessment and recommendations/plan. TT = [address] > 50%. JORDAN Jiang documented in this encounter Plan of Treatment Upcoming Encounters Date Type Specialty Care Team Description 08/13/2022 Appointment Radiology Denise Aguirre, FUNERAL WORKERS, PEST CONTROL SPECIALIST [address] [place], [place] [address] (Wo rk) 08/13/2022 Appointment Hematology and Oncology Denise Aguirre FUNERAL WORKERS, PEST CONTROL SPECIALIST [address] [place], [place] [address] (Wo rk) documented as [...] Primary documented in this encounter Care Teams Youth Associate Relationship Specialty Start Date End Date Elyse Paredes MD PCP - General Family Practice 03/19/17 [address] [address] documented as of this encounter
--- OUTSIDE RECORDS SUMMARY | 2022-07-09 14:34 | XMS_ITS | Encounter Summary ---
:1950 Author Organization [facility] Address [address] [place] [address] Care Team Providers Name Role Phone Elyse Paredes MD Primary Care Provider Encounter Details Date Type Department Care Team Description 02/10/2019 Notes/Orders [facility] Cancer Shaye Madrid hna Center at [facility], [facility] [id number] [place] [address] [phone] (Wo rk) Social History Tobacco Use Types [...] Team Description 08/13/2022 Appointment Radiology Denise Aguirre, CONTROL CLERK HEAD, FINANCIAL DATA ANALYST 640 [place], [place] [address] (Wo rk) 08/13/2022 Appointment Hematology and Oncology Denise Aguirre APRN, FINANCIAL DATA ANALYST [address] [place], [place] [address] (Wo rk) documented as [...] on filedocumented in this encounter Care Teams Rehabilitation Supervisor Relationship Specialty Start Date End Date Elyse Paredes MD PCP - General Family Practice 03/19/17 1540 [place] [address] documented as of this encounter
--- OUTSIDE RECORDS SUMMARY | 2022-07-09 14:34 | XMS_ITS | Encounter Summary ---
:1950 Author Organization [facility] [employer] Address [address] [place] [address] Care Team Providers Name Role Phone Elyse Paredes MD Primary Care Provider Encounter Details Date Type Department Care Team Description 05/09/2019 Refill Order Specialty Center 401 Freya Cho MD Endocrinology Clinic [address] [place] [address] [place] [address] [phone] Social History Tobacco Use Types Packs/Day Years [...] Description 08/13/2022 Appointment Radiology Denise Aguirre APRN, CNC FIELD SERVICE ENGINEER 640 [place], [place] [address] (Wo rk) 08/13/2022 Appointment Hematology and Oncology Denise Aguirre APRN, CNC FIELD SERVICE ENGINEER [address] [place], [place] [address] (Wo rk) documented as [...] medications documented in this encounter Care Teams Compressor Station Chief Engineer Relationship Specialty Start Date End Date Elyse Paredes MD PCP - General Family Practice 03/19/17 [address] [place] [address] documented as of this encounter
--- OUTSIDE RECORDS SUMMARY | 2022-07-09 14:34 | XMS_ITS | Encounter Summary ---
:1950 Author Organization [facility] Address [address] [place] [address] Care Team Providers Name Role Phone Elyse [...] [address] needle) [place] [address] [place], [place] [phone] (Wo rk) Social History Tobacco Use Types [...] 11, Si-5 times daily. (unchanged) Powered by SIPphone, Reference: [id number], 05/09/2019 10:21:30 AM CDT, Pool: [facility] CARE TEAM ([id number]) documented in this encounter Plan of Treatment Upcoming Encounters Date Type Specialty Care Team Description 08/13/2022 Appointment Radiology Denise Aguirre APRN, HARVEST MANAGER 640 [place], [place] [address] (Wo rk) 08/13/2022 Appointment Hematology and Oncology Denise Aguirre APRN, HARVEST MANAGER [address] [place], [place] [address] (Wo rk) documented [...] on filedocumented in this encounter Care Teams Drapery Examiner Relationship Specialty Start Date End Date Elyse Paredes MD PCP - General Family Practice 03/19/17 [address] [place] [address] documented as of this encounter
--- OUTSIDE RECORDS SUMMARY | 2022-07-09 14:34 | XMS_ITS | Encounter Summary ---
:1950 Author Organization [employer] Address [address] [place] [address] Care Team Providers Name Role Phone Elyse Paredes MD Primary Care Provider Reason for Visit Reason Comments Refill TRULICITY 1.5 MG/0.5ML injec iton pen [Pharmacy Med Name: TRULICITY 1.5MG/0.5ML SDP 4X0.5ML] Encounter Details Date Type Department Care Team Description 08/03/2019 Refill Specialty Center 401 Gabrielle Morris, Refill (TRULICITY 1.5 Endocrinology Clinic MENTAL HEALTH NURSE, DNP MG/0.5ML injeciton pen [address] [Pharmacy Med Name: [place] [address] [place], [place] TRULICITY 1.5MG/0.5ML [phone] SDP 4X0.5ML]) Social History Tobacco Use Types [...] orders. Jacquelyn Matos RN 8:53 AM 08/04/2019 INE SHOP INSPECTOR Interface, Out Surescripts Prov Query - 08/03/2019 [...] HBA1C: 8.3 % on 11/21/2018 Powered by [employer]er[employer], Reference: [id number], 08/03/2019 4:20:31 PM MACHINE SHOP INSPECTOR, Pool: JORDAN OSEI [facility] TEAM ([id number]) INE SHOP INSPECTOR Interface, Out [employer] Query - 08/03/2019 4:20 PM CST The [...] Appointment with Dr Salas 11/29/2018.Yosi Greco RN INE SHOP INSPECTOR Interface, Out Appiphanyscripts Prov Query - 08/03/2019 4:20 PM CST The following lab order(s) may be associated with the following Patient Result Comment (Entered by Juan Zaragoza MD at 12/02/2018 8:44 AM): HGB A1C HgA1c goal is less than 8.0 with a diagnosis of obpfpprnUsS9d (estimated Average Glucose) (%) (mg/dL)5 97 6 126 7 154 8 183 9 212 10 240 11 269 12 298 Normal blood sugar A1c 6.4 and lessPrediabetes diagnosed by an A1c 5.7-6.4Diabetes diagnosed by an A1c 6.5 and above INE SHOP INSPECTOR documented in this encounter Plan of Treatment Upcoming Encounters Date Type Specialty Care Team Description 08/13/2022 Appointment Radiology Denise Aguirre, MENTAL HEALTH NURSE, DOCKING PILOT 640 [place], [place] [address] (Wo rk) 08/13/2022 Appointment Hematology and Oncology Denise Aguirre, MENTAL HEALTH NURSE, DOCKING PILOT [address] [place], [place] [address] (Wo rk) documented as [...] insulin documented in this encounter Care Teams Gantry Crane Operator Relationship Specialty Start Date End Date Elyse Paredes MD PCP - General Family Practice 03/19/17 [address] [place] [address] documented as of this encounter
--- OUTSIDE RECORDS SUMMARY | 2022-07-09 14:34 | XMS_ITS | Encounter Summary ---
:1950 Author Organization [facility] Address [address] [place] [address] Care Team Providers Name Role Phone Elyse Paredes MD Primary Care Provider Reason for Visit Reason Comments QUESTIONS, GENERAL Encounter Details Date Type Department Care Team Description 08/11/2019 Telephone [facility] ANA Madrid [facility], GENERAL [place] at [address] [place] [address] [phone] Social History Tobacco Use Types Packs/Day Years [...] call. Lilly Kim RN 08/11/2019, 12:59 PM MAN Dolly Hernandez RN - 08/11/2019 12:16 PM CST Marci left a message on the nurse line asking for the nurse to call her back. She would like to discuss anastrozole and possible side effects she is having. Dolly Hernandez RN 08/11/2019, 12:17 PM MAN documented in this encounter Plan of Treatment Upcoming Encounters Date Type Specialty Care Team Description 08/13/2022 Appointment Radiology Denise Aguirre, SLITTER SERVICE AND SETTER, SECOND FACING BASTER [address] [place], [place] [address] (Wo rk) 08/13/2022 Appointment Hematology and Oncology Denise Aguirre APRN, SECOND FACING BASTER [address] [place], [place] [address] (Wo rk) documented as [...] on filedocumented in this encounter Care Teams Segmental Paving Supervisor Relationship Specialty Start Date End Date Elyse Paredes MD PCP - General Family Practice 03/19/17 [address] [address] documented as of this encounter
--- OUTSIDE RECORDS SUMMARY | 2022-07-09 14:35 | XMS_ITS | Encounter Summary ---
:1950 Author Organization [employer] Address [address] [place] [address] Care Team Providers Name Role Phone Elyse [...] [address] Essential hypertension; [place] [address] [place], [place] Coronary artery disease invo lving ugashik coronary artery of ugashik heart without angina pectoris; [phone] Malignant neoplasm of left breast in fem grey, estrogen receptor positive, unspecified site of breast (HRC); [phone] Obesity, unspec ified obesity severity, unspecified obesity [...] Body Mass Index 52.86 09/16/2018 11:15 AM MAINTENANCE JOURNEYMAN documented in this encounter Patient Instructions Patient InstructionsJuan Cho MD - 12/02/2018 12:45 PM CDT Rx for Dexcom placed to [facility] pharmacy in [facility]. The pharmacy should contact you. If not call [phone]. They should then arrange for the supplies to be sent to you If there are any problems call Dexcom Marya Duenas [phone] Once you have the Dexcom G5/G6 call the following number to receive instructions on how to use the Dexcom G6. Ext 3. G5 is currently available for medicare and supposedly Dexcom G6 will be available in the fall. If dexcom does not schedule someone to teach you how to use dexcom g6 than schedule a vist with manager payment to learn hew to use the dexcom [...] visit. To set up a [facility] lab visit call [phone] , or schedule on line using the My Chart program. To schedule a future Endocrine visit call [phone] or utilize my chart If you have questions please call the Endocrine Department [phone] option #3. If you are unable to reach a nurse on the above phone line contact the nurse care line available 24 hours a day at [phone] Mailing address Luis Fernando Cho M.D. [address] [place] [address] Mail Stop: [id number] documented in this encounter Progress Notes Chris [...] Description 08/13/2022 Appointment Radiology Denise Aguirre APRN, REPRODUCTIVE ENDOCRINOLOGIST [address] [place], [place] [address] (Wo rk) 08/13/2022 Appointment Hematology and Oncology Denise Aguirre APRN, REPRODUCTIVE ENDOCRINOLOGIST [address] [place], [place] [address] (Wo rk) documented as [...] Unspecified essential hypertension Coronary artery disease involving ugashik coronary artery of ugashik heart without angina pectoris (HRC) Malignant neoplasm of left breast in fem grey, estrogen receptor positive, unspecified site of breast (HRC) Obesity, unspecified obesity severity, u nspecified obesity type (HRC) documented in this encounter Care Teams Mastic Sprayer Relationship Specialty Start Date End Date Elyse Paredes MD PCP - General Family Practice 03/19/17 1540 [place], [place] [phone] documented as of this encounter
--- OUTSIDE RECORDS SUMMARY | 2022-07-09 14:35 | XMS_ITS | Encounter Summary ---
:1950 Author Organization [facility] Address [address] [place] [address] Care Team Providers Name Role Phone Elyse Paredes MD Primary Care Provider Encounter Details Date Type Department Care Team Description 11/30/2018 Office Visit [facility] Rad[facility] Therapy [address] [place] [address] [phone] Social History Tobacco Use Types Packs/Day Years [...] Description 08/13/2022 Appointment Radiology Denise Aguirre APRN, [employer] OFFICER [address] [place], [place] [address] (Wo rk) 08/13/2022 Appointment Hematology and Oncology Denise Aguirre APRN, [employer] OFFICER [address] [place], [place] [address] (Wo rk) documented as [...] on filedocumented in this encounter Care Teams Registered Nurse Fetal Relationship Specialty Start Date End Date Elyse Paredes MD PCP - General Family Practice 03/19/17 [address] [place], [place] [id number] documented as of this encounter
--- OUTSIDE RECORDS SUMMARY | 2022-07-09 14:35 | XMS_ITS | Encounter Summary ---
:1950 Author Organization [facility] Address [address] [place] [address] Care Team Providers Name Role Phone Elyse Paredes MD Primary Care Provider Encounter Details Date Type Department Care Team Description 11/18/2018 Office Visit [facility] Radiation Therapy [address] [place] [place] [address] [phone] Social History Tobacco Use Types Packs/Day Years [...] Description 08/13/2022 Appointment Radiology Denise Aguirre APRN, TIRE FIXER 640 [place], [place] [address] (Wo rk) 08/13/2022 Appointment Hematology and Oncology Denise Aguirre APRN, TIRE FIXER [address] [place], [place] [address] (Wo rk) documented [...] on filedocumented in this encounter Care Teams Train Braker Relationship Specialty Start Date End Date Elyse Paredes MD PCP - General Family Practice 03/19/17 [address] [place], [place] [phone] documented as of this encounter
--- OUTSIDE RECORDS SUMMARY | 2022-07-09 14:35 | XMS_ITS | Encounter Summary ---
:1950 Author Organization [facility] Address [address] [place] [address] Care Team Providers Name Role Phone Elyse Paredes MD Primary Care Provider Encounter Details Date Type Department Care Team Description 11/23/2018 Office Visit [facility] Radiation Therapy [address] [place] [phone] Social History Tobacco Use Types Packs/Day Years Used Date Smoking Tobacco: Former Cigarettes Quit : 08/02/1981 Smokeless Tobacco: Never Alcohol Use Standard Drinks/Week Comments No 0 (1 standard drink = 0.6 oz pure alcoho l) Sex Assigned at Date Recorded Not on file documented as of this encounter Plan of Treatment Upcoming Encounters Date Type Specialty Care Team Description 08/13/2022 Appointment Radiology Denise Agurire APRN, RAND BUTTING MACHINE OPERATOR [address] [place], [place] [address] (Wo rk) 08/13/2022 Appointment Hematology and Oncology Denise Aguirre APRN, RAND BUTTING MACHINE OPERATOR [address] [place], [place] [address] (Wo rk) documented as [...] on filedocumented in this encounter Care Teams Insurance Follow Up Specialist Relationship Specialty Start Date End Date Elyse Paredes MD PCP - General Family Practice 03/19/17 [address] [place], [place] [phone] documented as of this encounter
--- OUTSIDE RECORDS SUMMARY | 2022-07-09 14:35 | XMS_ITS | Encounter Summary ---
:1950 Author Organization [facility] Address [address] [place] [address] Care Team Providers Name Role Phone Elyse Paredes MD Primary Care Provider Encounter Details Date Type Department Care Team Description 12/16/2018 [facility] Visit [facility] Cancer Center at Jia Trujillo MD [facility] Radiation Therapy [address] [place] [address] Social History Tobacco Use Types Packs/Day Years [...] Body Mass Index 52.36 09/16/2018 11:15 AM COMPANY LABORER documented in this encounter Progress Notes Deloris [...] Stage IA (pT1c, pN0(sn), cM0, G2, ER+, IA+, HER2-, Oncotype DX score: 10) - Signed [...] on her search for a townhouse in [place] that she is pursuing today. Deloris Trujillo MD Radiation Oncology [phone] documented in this encounter Nursing Notes Dawn [...] Team Description 08/13/2022 Appointment Radiology Denise Aguirre, TRAVEL FREIGHT AND PASSENGER AGENT, RESPIRATORY CARE FACULTY [address] [place], [place] [address] (Wo rk) 08/13/2022 Appointment Hematology and Oncology Denise Aguirre, GRIFFIN, RESPIRATORY CARE FACULTY [address] [place], [place] [address] (Wo rk) documented as [...] on filedocumented in this encounter Care Teams Gas Meter Installer Helper Relationship Specialty Start Date End Date Elyse Paredes MD PCP - General Family Practice 03/19/17 [address] [place] [address] documented as of this encounter
--- OUTSIDE RECORDS SUMMARY | 2022-07-09 14:35 | XMS_ITS | Encounter Summary ---
:1950 Author Organization [facility] Address [address] [place] [address] Care Team Providers Name Role Phone Elyse Paredes MD Primary Care Provider Encounter Details Date Type Department Care Team Description 11/24/2018 Office Visit [facility] Rad[facility] Therapy [address] [place] [address] [phone] Social History Tobacco Use Types Packs/Day Years [...] Description 08/13/2022 Appointment Radiology Denise Aguirre APRN, GARLAND MACHINE OPERATOR [address] [place], [place] [address] (Wo rk) 08/13/2022 Appointment Hematology and Oncology Denise Aguirre APRN, GARLAND MACHINE OPERATOR [address] [place], [place] [address] (Wo rk) documented as [...] on filedocumented in this encounter Care Teams Paving Inspector Relationship Specialty Start Date End Date Elyse Paredes MD PCP - General Family Practice 03/19/17 [address] [place] [place], [place] [phone] documented as of this encounter
--- OUTSIDE RECORDS SUMMARY | 2022-07-09 14:35 | XMS_ITS | Encounter Summary ---
:1950 Author Organization [facility] Address [address] [place] [address] Care Team Providers Name Role Phone Elyse Paredes MD Primary Care Provider Encounter Details Date Type Department Care Team Description 11/10/2018 Office Visit [facility] Rad[facility] Therapy [address] [place] [address] [phone] Social History Tobacco Use Types Packs/Day Years [...] Description 08/13/2022 Appointment Radiology Denise Aguirre APRN, TRACK LAYER [address] [place], [place] [address] (Wo rk) 08/13/2022 Appointment Hematology and Oncology Denise Aguirre APRN, TRACK LAYER [address] [place], [place] [address] (Wo rk) documented as [...] filedocumented in this encounter Care Teams Public Affairs Specialist Relationship Specialty Start Date End Date Elyse Paredes MD PCP - General Family Practice 03/19/17 [address] [place], [place] [id number] documented as of this encounter
--- OUTSIDE RECORDS SUMMARY | 2022-07-09 14:35 | XMS_ITS | Encounter Summary ---
:1950 Author Organization [facility] Address [address] [place] [address] Care Team Providers Name Role Phone Elyse Paredes MD Primary Care Provider Encounter Details Date Type Department Care Team Description 11/14/2018 Office Visit [facility] Center Suzie Gerardo at [facility] MD James Radiation Therapy [address] [address] [place] [address] [phone] Social History Tobacco Use Types Packs/Day Years [...] Team Description 08/13/2022 Appointment Radiology Denise Aguirre, NURSE CARE MANAGER, SERGEANT OF CORRECTIONS 640 [place], [place] [address] (Wo rk) 08/13/2022 Appointment Hematology and Oncology Denise Aguirre APRN, SERGEANT OF CORRECTIONS [address] [place], [place] [address] (Wo rk) documented as [...] on filedocumented in this encounter Care Teams Counter Top Maker Relationship Specialty Start Date End Date Elyse Paredes MD PCP - General Family Practice 03/19/17 [address] [place] [address] documented as of this encounter
--- OUTSIDE RECORDS SUMMARY | 2022-07-09 14:35 | XMS_ITS | Encounter Summary ---
:1950 Author Organization [facility] Address [address] [place] [address] Care Team Providers Name Role Phone Elyse Paredes MD Primary Care Provider Encounter Details Date Type Department Care Team Description 12/01/2018 Office [facility] Radiation Therapy [address] [place] [address] [phone] Social History Tobacco Use Types Packs/Day Years [...] Description 08/13/2022 Appointment Radiology Denise Aguirre APRN, AMBULANCE DRIVER PARAMEDIC [address] [place], [place] [address] (Wo rk) 08/13/2022 Appointment Hematology and Oncology Denise Aguirre APRN, AMBULANCE DRIVER PARAMEDIC [address] [place], [place] [address] (Wo rk) documented as [...] on filedocumented in this encounter Care Teams Game Farm Helper Relationship Specialty Start Date End Date Elyse Paredes MD PCP - General Family Practice 03/19/17 [address] [place], [place] [phone] documented as of this encounter
--- OUTSIDE RECORDS SUMMARY | 2022-07-09 14:35 | XMS_ITS | Encounter Summary ---
:1950 Author Organization [facility] Address [address] [place] [address] Care Team Providers Name Role Phone Elyse Paredes MD Primary Care Provider Encounter Details Date Type Department Care Team Description 11/29/2018 Office Visit [facility] Radiation Therapy [address] [place] [address] [phone] Social History Tobacco Use Types Packs/Day Years [...] 08/13/2022 Appointment Radiology Denise Aguirre APRN, DATA SECURITY ADMINISTRATOR 640 [place], [place] [address] (Wo rk) 08/13/2022 Appointment Hematology and Oncology Denise Aguirre APRN, DATA SECURITY ADMINISTRATOR [address] [place], [place] [address] (Wo rk) documented as [...] filedocumented in this encounter Care Teams Regulatory Assistant Relationship Specialty Start Date End Date Elyse Paredes MD PCP - General Family Practice 03/19/17 [address] [place] [place], [place] [id number] documented as of this encounter
--- OUTSIDE RECORDS SUMMARY | 2022-07-09 14:35 | XMS_ITS | Encounter Summary ---
:1950 Author Organization [facility] Address [address] [place] [address] Care Team Providers Name Role Phone Elyse Paredes MD Primary Care Provider Encounter Details Date Type Department Care Team Description 11/22/2018 Office Visit [facility] Cancer Center at Jia Trujillo MD [facility] Radiation Therapy [address] [place] [address] Social History Tobacco Use Types Packs/Day Years [...] Body Mass Index 52.93 09/16/2018 11:15 AM DATABASE ARCHITECT documented in this encounter Progress Notes Deloris Trujillo MD - 11/22/2018 10:00 AM CDT Radiation Therapy Under Treatment Visit (UTV) Note Diagnosis: 68-year-old female with recently diagnosed pathologic stage I infiltrating ductal carcinoma of the left breast as described above. 1.2 cm. Oli grade 2. Margins negative. The closest is 7 mm. ER/[place] positive, HER-2 negative. Oncotype recurrence score 10. [...] been controllingher diabetes. She meets with her environmental services assistant again later this week. The patient reports [...] moisturize bid. Deloris Trujillo MD Radiation Oncology [phone] documented in this encounter Plan of Treatment Upcoming Encounters Date Type Specialty Care Team Description 08/13/2022 Appointment Radiology Denise Aguirre APRN, PRECISION LENS GRINDER APPRENTICE [address] [place], [place] [address] (Wo rk) 08/13/2022 Appointment Hematology and Oncology Denise Aguirre APRN, PRECISION LENS GRINDER APPRENTICE [address] [place], [place] [address] (Wo rk) documented as [...] on filedocumented in this encounter Care Teams Sign Designer Relationship Specialty Start Date End Date Elyse Paredes MD PCP - General Family Practice 03/19/17 [address] [place] [address] documented as of this encounter
--- OUTSIDE RECORDS SUMMARY | 2022-07-09 14:35 | XMS_ITS | Encounter Summary ---
:1950 Author Organization [employer] Address [address] [place] [address] Care Team Providers Name Role Phone Elyse Paredes MD Primary Care Provider Reason for Visit Reason Onset Date Comments Refill 01/30/2019 humalog Encounter Details Date Type Department Care Team Description 01/30/2019 Refill Specialty Center 401 Freya Zaragoza MD Refill (humalog) Endocrinology Clinic [address] [place] [address] [place] [address] [phone] Social History Tobacco Use Types Packs/Day Years [...] Dr Salas 11/29/2018.Yosi Greco RN Interface, Out diaDexus Prov Query - 01/30/2019 3:25 PM CDT The following lab order(s) may be associated with the following Patient Result Comment (Entered by Juan Zaragoza MD at 12/02/2018 9:44 AM): HGB A1C HgA1c goal is less than 8.0 with a diagnosis of [id number] (estimated Average Glucose) (%) (mg/dL)5 97 6 126 7 154 8 183 9 212 10 240 11 269 12 298 Normal blood sugar A1c 6.4 and lessPrediabetes diagnosed by an A1c 5.7-6.4Diabetes diagnosed by an A1c 6.5 and above Interface, Out diaDexus Prov Query - 01/30/2019 3:25 PM CDT [...] HBA1C: 8.3 % on 11/21/2018 Powered by [employer], Reference: [id number], 01/30/2019 3:25:23 PM CDT, Pool: [facility] CARE TEAM ([id number]) Gabrielle Alvarez - 01/30/2019 3:23 PM CDT Patient is using 15 units, x3 times a day with CGM and has 12 pounds. Please verify correct prescription dose. Gabrielle Alvarez documented in this encounter Plan of Treatment Upcoming Encounters Date Type Specialty Care Team Description 08/13/2022 Appointment Radiology Denise Aguirre, ENGINEERING RESEARCH MANAGER, CLINICAL DIETICIAN [address] [place], [place] [address] (Wo rk) 08/13/2022 Appointment Hematology and Oncology Denise Aguirre APRN, CLINICAL DIETICIAN [address] [place], [place] [address] (Wo rk) documented as [...] on filedocumented in this encounter Care Teams Leadership Coach Relationship Specialty Start Date End Date Elyse Paredes MD PCP - General Family Practice 03/19/17 [address] [place] [address] documented as of this encounter
--- OUTSIDE RECORDS SUMMARY | 2022-07-09 14:35 | XMS_ITS | Encounter Summary ---
:1950 Author Organization [employer] Address [address] [place] [address] Care Team Providers Name Role Phone Elyse Paredes MD Primary Care Provider Encounter Details Date Type Department Care Team Description 11/21/2018 Lab Visit Specialty Center Uncontro lljoey type 2 diabetes Laboratory mellitus, with long-term [address] current use of insulin ([facility]) [place] [address] Social History Tobacco Use Types [...] Team Description 08/13/2022 Appointment Radiology Denise Aguirre, INTENSIVIST, BREEDER SERVICE TECHNICIAN [address] [place], [place] [address] (Wo rk) 08/13/2022 Appointment Hematology and Oncology Denise Aguirre APRN, BREEDER SERVICE TECHNICIAN [address] [place], [place] [address] (Wo rk) documented as [...] / Creat Ratio (11/21/2018 1:58 PM CDT) [facility] Method Time Signature Albumin, 7.2 mg/L 11/21/2018 [facility] Urine, Random 5:34 PM CDT C[facility]AL [facility] Creatinine, 118 >20 mg/dL 11/21/2018 [facility] Urine, Random 5:34 PM CDT CENTRAL LAB Albumin/Creati 6 <30 mg/g 11/21/2018 [facility] nine Ratio, 5:34 PM CDT CENTRAL LAB Urine, Random Specimen Anatomical Collection Method Collection Time Receive d Time (Source) Location / / Volume Laterality Urine,random Non-blood 11/21/2018 1:58 PM 9 1:58 Collection / CDT PM CDT Unknown Manasa Salas MD LAB_1 Performing Organization Address City/[facility]/ZIP Code Phon e Number [facility] [address] [address] (ABNORMAL) HgbA1c (11/21/2018 12:56 PM CDT) [facility] Method Time Signature Hemoglobin A1C 8.3 (H) <=5.6 % 11/21/2018 [facility] 6:37 PM CDT CENTRAL LAB Specimen Anatomical Collection Method Collection Time Receive d Time (Source) Location / / Volume Laterality Blood 11/21/2018 12:56 11/21/2018 PM CDT 12:56 PM CDT Narrative [facility] CENTRAL LAB - 11/21/2018 6:37 PM CDT For patients not previously diagnosed with diabetes: 5.7-6.4%: Increased risk for diabetes 6.5% and greater: Diagnostic for diabete s For patients diagnosed with diabetes: <8.0%: Goal of therapy for ages 18-75 Clinicians may recommend a higher or low er goal for specific individuals. Manasa Salas MD LAB_1 Performing Organization Address City/State/ZIP [facility] Phon e Number [facility]Search[facility] C[facility] LAB [address] [address] (ABNORMAL) Creatinine / GFR (11/21/2018 12:56 PM CDT) Patholo gist Method Time Signature Creatinine 1.31 (H) 0.55 - 11/21/2018 [facility] 1.02 5:27 PM CDT CENTRAL LAB mg/dL GFR, Estimated 42 (L) >60 11/21/2018 [facility] mL/min/1. 5:27 PM CDT CENTRAL LAB 73m2 GFR, Est If 49 (L) >60 11/21/2018 [facility] mL/min/1. 5:27 PM CDT CENTRAL LAB Finnish 73m2 Specimen Anatomical Collection Method Collection Time Receive d Time (Source) Location / / Volume Laterality Blood 11/21/2018 12:56 11/21/2018 PM CDT 12:56 PM CDT Narrative [facility] - 11/21/2018 5:27 PM CDT The National Kidney Disease Education Pr ogram suggests measuring Cystatin C in patients with eGFRcrea of 45 to 59 ml/mi n/1.73^2 who do not have other markers of kidney damage (i.e. elevated urine Album in/Creatinine Ratio or a prior Cystatin C confirming the presence of chronic kidne y disease). Manasa Salas MD LAB_1 Performing Organization Address [facility] Phon e Number AddSearchCHRI[facility] C[facility]AL LAB [address] [address] LDL Direct (11/21/2018 12:56 PM CDT) P athologist Signature LDL, Direct 94 <=130 11/21/2018 [facility] mg/dL 5:27 PM CDT CENTRAL LAB Specimen Anatomical Collection Method Collection Time Receive d Time (Source) Location / / Volume Laterality Blood 11/21/2018 12:56 11/21/2018 PM CDT 12:56 PM CDT Manasa Salas MD LAB_1 Performing Organization Address [facility] Phon e Number AddSearchCH[facility] C[facility]AL LAB [address] [address] documented in this encounter Visit Diagnoses Diagnosis Uncontrolled type 2 diabetes mellitus, w ith long-term current use of insulin documented in this encounter Care Teams Machinist Relationship Specialty Start Date End Date Elyse Paredes MD PCP - General [facility] Practice 03/19/17 [address] [place] [address] documented as of this encounter
--- OUTSIDE RECORDS SUMMARY | 2022-07-09 14:35 | XMS_ITS | Encounter Summary ---
:1950 Author Organization [facility] Address [address] [place] [address] Care Team Providers Name Role Phone Elyse Paredes MD Primary Care Provider Encounter Details Date Type Department Care Team Description 11/25/2018 [facility] Rad[facility] Therapy [address] [place] [phone] Social History Tobacco Use Types Packs/Day Years [...] Description 08/13/2022 Appointment Radiology Denise Aguirre APRN, CONFIGURATION RELEASE MANAGER [address] [place], [place] [address] (Wo rk) 08/13/2022 Appointment Hematology and Oncology Denise Aguirre APRN, CONFIGURATION RELEASE MANAGER [address] [place], [place] [address] (Wo rk) documented as [...] on filedocumented in this encounter Care Teams Refrigeration Manager Relationship Specialty Start Date End Date Elyse Paredes MD PCP - General Family Practice 03/19/17 [address] [place], [place] [id number] documented as of this encounter
--- OUTSIDE RECORDS SUMMARY | 2022-07-09 14:35 | XMS_ITS | Encounter Summary ---
:1950 Author Organization [facility] Address [address] [place] [address] Care Team Providers Name Role Phone Elyse Paredes MD Primary Care Provider Encounter Details Date Type Department Care Team Description 12/23/2018 Office Visit [facility] at Jia Trujillo MD [facility] Radiation Therapy [address] [place] [address] Social History Tobacco Use Types Packs/Day Years [...] Stage IA (pT1c, pN0(sn), cM0, G2, ER+, [place]+, HER2-, Oncotype DX score: 10) - Signed [...] she received. Deloris Trujillo MD Radiation Oncology [phone] documented in this encounter Nursing Notes Kaycee [...] Description 08/13/2022 Appointment Radiology Denise Aguirre APRN, PAY STATION DEPARTMENT MANAGER [address] [place], [place] [address] (Wo rk) 08/13/2022 Appointment Hematology and Oncology Denise Aguirre APRN, PAY STATION DEPARTMENT MANAGER [address] [place], [place] [address] (Wo rk) documented as [...] on filedocumented in this encounter Care Teams Med Spa Manager Relationship Specialty Start Date End Date Elyse Paredes MD PCP - General Family Practice 03/19/17 [address] [place] [address] documented as of this encounter
--- OUTSIDE RECORDS SUMMARY | 2022-07-09 14:35 | XMS_ITS | Encounter Summary ---
:1950 Author Organization [facility] Address [address] [place] [address] Care Team Providers Name Role Phone Elyse Paredes MD Primary Care Provider Encounter Details Date Type Department Care Team Description 12/02/2018 Office Visit [facility] [place] MD mario land [facility] Radiation with long -term current Therapy use of insulin (HRC) [address] [place] [address] (Primary Dx) [place] [address] Social History Tobacco Use Types Packs/Day Years [...] you have questions. Our phone number is [phone]. documented in this encounter Progress Notes Deloris [...] Stage IA (pT1c, pN0(sn), cM0, G2, ER+, CO+, HER2-, Oncotype DX score: 10) - Signed [...] she received. Deloris Trujillo MD Radiation Oncology [phone] documented in this encounter Plan of Treatment Upcoming Encounters Date Type Specialty Care Team Description 08/13/2022 Appointment Radiology Denise Aguirre APRN, ANESTHESIA ASSISTANT [address] [place], [place] [address] (Wo rk) 08/13/2022 Appointment Hematology and Oncology Denise Aguirre APRN, ANESTHESIA ASSISTANT [address] [place], [place] [address] (Wo rk) documented as [...] Primary documented in this encounter Care Teams Prison Warden Relationship Specialty Start Date End Date Elyse Paredes MD PCP - General Family Practice 03/19/17 [address] [place] [address] documented as of this encounter
--- OUTSIDE RECORDS SUMMARY | 2022-07-09 14:35 | XMS_ITS | Encounter Summary ---
:1950 Author Organization [facility] Address [address] [place] [address] Care Team Providers Name Role Phone Elyse Paredes MD Primary Care Provider Encounter Details Date Type Department Care Team Description 11/21/2018 Office Visit [facility] Cancer Center Suzie Gerardo at [facility] MD [facility] Radiation Therapy [address] [address] [place] [address] [phone] Social History Tobacco Use Types Packs/Day Years [...] Team Description 08/13/2022 Appointment Radiology Denise Aguirre, DEPARTMENT CLERK, PATIENT CLERICAL ASSISTANT [address] [place], [place] [address] (Wo rk) 08/13/2022 Appointment Hematology and Oncology Denise Aguirre APRN, PATIENT CLERICAL ASSISTANT [address] [place], [place] [address] (Wo rk) documented as [...] on filedocumented in this encounter Care Teams Criminal Defense Lawyer Relationship Specialty Start Date End Date Elyse Paredes MD PCP - General Family Practice 03/19/17 [address] [place] [address] documented as of this encounter
--- OUTSIDE RECORDS SUMMARY | 2022-07-09 14:35 | XMS_ITS | Encounter Summary ---
:1950 Author Organization [facility] Address [address] [place] [address] Care Team Providers Name Role Phone Elyse Paredes MD Primary Care Provider Encounter Details Date Type Department Care Team Description 11/15/2018 Office Visit [facility] Cancer Center at Jia Trujillo MD [facility] Radiation Therapy [address] [place] [address] Social History Tobacco Use Types Packs/Day Years [...] Body Mass Index 52.93 09/16/2018 11:15 AM TIE INSPECTOR documented in this encounter Progress Notes Deloris Trujillo MD - 11/15/2018 10:00 AM CDT Radiation Therapy Under Treatment Visit (UTV) Note Diagnosis: 68-year-old female with recently diagnosed pathologic stage I infiltrating ductal carcinoma of the left breast as described above. 1.2 cm. Oli grade 2. Margins negative. The closest is 7 mm. ER/[place] positive, HER-2 negative. Oncotype recurrence score 10. [...] moisturize bid. Deloris Trujillo MD Radiation Oncology [phone] documented in this encounter Plan of Treatment Upcoming Encounters Date Type Specialty Care Team Description 08/13/2022 Appointment Radiology Denise Aguirre APRN, ATOMIC FUEL ASSEMBLER [address] [place], [place] [address] (Wo rk) 08/13/2022 Appointment Hematology and Oncology Denise Aguirre APRN, ATOMIC FUEL ASSEMBLER [address] [place], [place] [address] (Wo rk) documented [...] on filedocumented in this encounter Care Teams Automotive Vehicle Inspector Relationship Specialty Start Date End Date Elyse Paredes MD PCP - General Family Practice 03/19/17 [address] [place] [address] documented as of this encounter
--- OUTSIDE RECORDS SUMMARY | 2022-07-09 14:35 | XMS_ITS | Encounter Summary ---
:1950 Author Organization [facility] Address [address] [place] [address] Care Team Providers Name Role Phone Elyse Paredes MD Primary Care Provider Encounter Details Date Type Department Care Team Description 12/02/2018 Office Visit [facility] at Jia Trujillo MD [facility] Radiation Therapy [address] [place] [address] Social History Tobacco Use Types Packs/Day Years [...] Body Mass Index 52.68 09/16/2018 11:15 AM PARTS CLERK PLANT MAINTENANCE documented in this encounter Progress Notes Deloris Trujillo MD - 12/02/2018 10:00 AM CDT Radiation Therapy Under Treatment Visit (UTV) Note Diagnosis: 68-year-old female with recently diagnosed pathologic stage I infiltrating ductal carcinoma of the left breast as described above. 1.2 cm. [place] grade 2. Margins negative. The closest is [...] She was supposed to meet with her review assistant today but that doctor is out sick [...] skin opens. Deloris Trujillo MD Radiation Oncology [phone] documented in this encounter Plan of Treatment Upcoming Encounters Date Type Specialty Care Team Description 08/13/2022 Appointment Radiology Denise Aguirre APRN, COAT CHECKER [address] [place], [place] [address] (Wo rk) 08/13/2022 Appointment Hematology and Oncology Denise Aguirre APRN, COAT CHECKER [address] [place], [place] [address] (Wo rk) documented as [...] on filedocumented in this encounter Care Teams Crop Puller Relationship Specialty Start Date End Date Elyse Paredes MD PCP - General Family Practice 03/19/17 [address] [address] documented as of this encounter
--- OUTSIDE RECORDS SUMMARY | 2022-07-09 14:35 | XMS_ITS | Encounter Summary ---
:1950 Author Organization [facility] Address [address] [place] [address] Care Team Providers Name Role Phone Elyse Paredes MD Primary Care Provider Encounter Details Date Type Department Care Team Description 11/28/2018 Office Visit [facility] Suzie Gerardo at [facility] MD [place] [facility] [address] [address] [place] [address] [phone] Social History Tobacco Use Types Packs/Day Years [...] Team Description 08/13/2022 Appointment Radiology Denise Aguirre, RETAIL SALES ADVISOR, COLLAR TRIMMER [address] [place], [place] [address] (Wo rk) 08/13/2022 Appointment Hematology and Oncology Denise Aguirre APRN, COLLAR TRIMMER [address] [place], [place] [address] (Wo rk) documented as [...] on filedocumented in this encounter Care Teams Rocket Motor Tester Relationship Specialty Start Date End Date Elyse Paredes MD PCP - General Family Practice 03/19/17 [address] [place] [address] documented as of this encounter
--- OUTSIDE RECORDS SUMMARY | 2022-07-09 14:35 | XMS_ITS | Encounter Summary ---
:1950 Author Organization [employer] Address [address] [place] [address] Care Team Providers Name Role Phone Elyse Paredes MD Primary Care Provider Reason for Visit Procedure/Equipment (Routine) - Incomplete Specialty Diagnoses / Procedures Referred By Contact Refer red To Contact Diagnoses Malignant neoplasm of left breast in female, estrogen receptor positive, unspecified site of breast (HRC) Elisa Madrid, Procedures DEXA Bone Density Spine/Hip Dexa Bone Density Spine/Hip/Forearm MBBS [address] [place] [address] Referral ID Status Reason Start Date Expiration Date Visits V isits Requested Authorized [id number] Incomplete 12/09/2018 03/09/2020 1 1 Encounter Details Date Type Department Care Team Description 01/26/2019 [facility] Jimmy Madrid neoplasm Procedure 401 Bone Density Elisa Kahn, MBBS of left breast in [address] [facility] female, estrogen [place], [place] receptor po sitive, [address] unspecified site of [phone] breast (HRC) (Work) Social History Tobacco Use [...] Description 08/13/2022 Appointment Radiology Denise Aguirre, GRIFFIN, CLINICAL RESEARCH SPEC [address] [place], [place] [address] (Wo rk) 08/13/2022 Appointment Hematology and Oncology Denise Aguirre, SYSTEMS SOFTWARE ENGINEER, CLINICAL RESEARCH SPEC [address] [place], [place] [address] (Wo rk) documented as [...] SCREENING FOR OSTEO, HOLD CALCIUM Indication:Postmenopausal disorder Galvanizing Pot Runner and Model of Instrument: Wokup Demographics Age: 68 y.o. Gender: female Height [...] Alcohol 3units or more per day (on eToro):No Currently smoking:No Other pertinent history: Dual-X-ray Absorptiometry [...] (HRC) documented in this encounter Care Teams Marquetry Worker Relationship Specialty Start Date End Date Elyse Paredes MD PCP - General Family Practice 03/19/17 15[address] [place] [address] documented as of this encounter
--- OUTSIDE RECORDS SUMMARY | 2022-07-09 14:35 | XMS_ITS | Encounter Summary ---
:1950 Author Organization [facility] Address [address] [place] [address] Care Team Providers Name Role Phone Elyse Paredes MD Primary Care Provider Encounter Details Date Type Department Care Team Description 11/29/2018 Office Visit [facility] at Jia Trujillo MD [facility] Radiation Therapy [address] [place] [address] Social History Tobacco Use Types Packs/Day Years [...] Body Mass Index 52.74 09/16/2018 11:15 AM IT PROJECT MANAGER documented in this encounter Progress Notes Deloris Trujillo MD - 11/29/2018 10:00 AM CDT Radiation Therapy Under Treatment Visit (UTV) Note Diagnosis: 68-year-old female with recently diagnosed pathologic stage I infiltrating ductal carcinoma of the left breast as described above. 1.2 cm. Oli grade 2. Margins negative. The closest is 7 mm. ER/IA positive, HER-2 negative. Oncotype recurrence score 10. [...] She was supposed to meet with her parent trainer today but that doctor is out sick [...] axillary skin. Deloris Trujillo MD Radiation Oncology [phone] documented in this encounter Plan of Treatment Upcoming Encounters Date Type Specialty Care Team Description 08/13/2022 Appointment Radiology Denise Aguirre, FITNESS WORKER, RN TRANSITIONAL CARE [address] [place], [place] [address] (Wo rk) 08/13/2022 Appointment Hematology and Oncology Denise Aguirre APRN, RN TRANSITIONAL CARE [address] [place], [place] [address] (Wo rk) documented as [...] on filedocumented in this encounter Care Teams [place] Or [place] Auditor Relationship Specialty Start Date End Date Elyse Paredes MD PCP - General Family Practice 03/19/17 [address] [place] [address] documented as of this encounter
--- OUTSIDE RECORDS SUMMARY | 2022-07-09 14:35 | XMS_ITS | Encounter Summary ---
:1950 Author Organization [facility] Address [address] [place] [address] Care Team Providers Name Role Phone Elyse Paredes MD Primary Care Provider Encounter Details Date Type Department Care Team Description 11/15/2018 Office Visit [facility] Radiation Therapy [address] [place] [phone] Social History Tobacco Use Types Packs/Day Years [...] Description 08/13/2022 Appointment Radiology Denise Aguirre APRN, NURSERY HAND [address] [place], [place] [address] (Wo rk) 08/13/2022 Appointment Hematology and Oncology Denise Aguirre APRN, NURSERY HAND [address] [place], [place] [address] (Wo rk) documented as [...] filedocumented in this encounter Care Teams Cyber Forensics Analyst Relationship Specialty Start Date End Date Elyse Paredes MD PCP - General Family Practice 03/19/17 [address] [place], [place] [id number] documented as of this encounter
--- OUTSIDE RECORDS SUMMARY | 2022-07-09 14:35 | XMS_ITS | Encounter Summary ---
:1950 Author Organization [facility] Address [address] [place] [address] Care Team Providers Name Role Phone Elyse Paredes MD Primary Care Provider Encounter Details Date Type Department Care Team Description 11/16/2018 [facility] [address] [place] [address] [phone] Social History Tobacco Use Types Packs/Day Years [...] Description 08/13/2022 Appointment Radiology Denise Aguirre APRN, RESIDENT CARE TECHNICIAN 640 [place], [place] [address] (Wo rk) 08/13/2022 Appointment Hematology and Oncology Denise Aguirre APRN, RESIDENT CARE TECHNICIAN [address] [place], [place] [address] (Wo rk) documented [...] filedocumented in this encounter Care Teams General Ledger Bookkeeper Relationship Specialty Start Date End Date Elyse Paredes MD PCP - General Family Practice 03/19/17 [address] [place] [place], [place] [id number] documented as of this encounter
--- OUTSIDE RECORDS SUMMARY | 2022-07-09 14:35 | XMS_ITS | Encounter Summary ---
:1950 Author Organization [employer] Address [address] [place] [address] Care Team Providers Name Role Phone Elyse Paredes MD Primary Care Provider Encounter Details Date Type Department Care Team Description 01/30/2019 Refill Order Specialty Center 401 Freya Zaragoza MD Endocrinology Clinic [address] [place] [address] [place] [address] [phone] Social History Tobacco Use Types Packs/Day Years [...] - NEXT LAB APPOINTMENT: None Powered by FlyClip, Reference: [id number], 01/30/2019 3:25:23 PM CDT, Pool: [facility] TEAM ([id number]) EXPERIMENTAL MECHANIC Interface, Out Octonotco Prov Query - 01/30/2019 3:25 PM CDT [...] Appointment with Dr Salas 11/29/2018.Yosi Greco RN EXPERIMENTAL MECHANIC Interface, Out Octonotco Prov Query - 01/30/2019 3:25 PM CDT The following lab order(s) may be associated with the following Patient Result Comment (Entered by Juan Zaragoza MD at 12/02/2018 9:44 AM): HGB A1C HgA1c goal is less than 8.0 with a diagnosis of agwfmitlLcF4n (estimated Average Glucose) (%) (mg/dL)5 97 6 126 7 154 8 183 9 212 10 240 11 269 12 298 Normal blood sugar A1c 6.4 and lessPrediabetes diagnosed by an A1c 5.7-6.4Diabetes diagnosed by an A1c 6.5 and above EXPERIMENTAL MECHANIC documented in this encounter Plan of Treatment Upcoming Encounters Date Type Specialty Care Team Description 08/13/2022 Appointment Radiology Denise Aguirre, GRIFFIN, BACKFILLER 640 [place], [place] [address] (Wo rk) 08/13/2022 Appointment Hematology and Oncology Denise Aguirre APRN, BACKFILLER [address] [place], [place] [address] (Wo rk) documented as [...] medications documented in this encounter Care Teams Various Exceptionalities Teacher Relationship Specialty Start Date End Date Elyse Paredes MD PCP - General Family Practice 03/19/17 [address] [place], [place] [id number] documented as of this encounter
--- OUTSIDE RECORDS SUMMARY | 2022-07-09 14:35 | XMS_ITS | Encounter Summary ---
:1950 Author Organization [facility] Address [address] [place] [address] Care Team Providers Name Role Phone Elyse Paredes MD Primary Care Provider Encounter Details Date Type Department Care Team Description 11/11/2018 Office [facility] Radiation Therapy [address] [place] [address] [phone] Social History Tobacco Use Types Packs/Day Years [...] Description 08/13/2022 Appointment Radiology Denise Aguirre APRN, COMPUTER SYSTEMS MANAGER 640 [place], [place] [address] (Wo rk) 08/13/2022 Appointment Hematology and Oncology Denise Aguirre APRN, COMPUTER SYSTEMS MANAGER [address] [place], [place] [address] (Wo rk) documented as [...] on filedocumented in this encounter Care Teams Pharmacist Helper Relationship Specialty Start Date End Date Elyse Paredes MD PCP - General Family Practice 03/19/17 [address] [place] [place], [place] [id number] documented as of this encounter
--- OUTSIDE RECORDS SUMMARY | 2022-07-09 14:35 | XMS_ITS | Encounter Summary ---
:1950 Author Organization [facility] Address [address] [place] [address] Care Team Providers Name Role Phone Elyse Paredes MD Primary Care Provider Encounter Details Date Type Department Care Team Description 11/22/2018 Office Visit [facility] Radiation Therapy [address] [place] [address] [phone] Social History Tobacco Use Types Packs/Day Years [...] Description 08/13/2022 Appointment Radiology Denise Aguirre APRN, RECONCILIATION MACHINE OPERATOR [address] [place], [place] [address] (Wo rk) 08/13/2022 Appointment Hematology and Oncology Denise Aguirre APRN, RECONCILIATION MACHINE OPERATOR [address] [place], [place] [address] (Wo rk) documented as [...] in this encounter Care Teams Director Of Social Media Marketing Relationship Specialty Start Date End Date Elyse Paredes MD PCP - General Family Practice 03/19/17 [address] [place] [place], [place] [id number] documented as of this encounter
--- OUTSIDE RECORDS SUMMARY | 2022-07-09 14:35 | XMS_ITS | Encounter Summary ---
:1950 Author Organization [facility] Address [address] [place] [address] Care Team Providers Name Role Phone Elyse Paredes MD Primary Care Provider Encounter Details Date Type Department Care Team Description 12/09/2018 Office Visit [facility] Cancer Center at Jia Trujillo MD [facility] Radiation Therapy [address] [place] [address] Social History Tobacco Use Types Packs/Day Years [...] Stage IA (pT1c, pN0(sn), cM0, G2, ER+, NC+, HER2-, Oncotype DX score: 10) - Signed [...] the axilla still feels like a hot pin game machine inspector 1 location. She is very excited tohave [...] endocrine therapy. Deloris Trujillo MD Radiation Oncology [phone] documented in this encounter Plan of Treatment Upcoming Encounters Date Type Specialty Care Team Description 08/13/2022 Appointment Radiology Denise Aguirre APRN, CODE ENFORCEMENT OFFICER [address] [place], [place] [address] (Wo rk) 08/13/2022 Appointment Hematology and Oncology Denise Aguirre APRN, CODE ENFORCEMENT OFFICER [address] [place], [place] [address] (Wo rk) documented as [...] on filedocumented in this encounter Care Teams Certified Master Safe Technician Relationship Specialty Start Date End Date Elyse Paredes MD PCP - General Family Practice 03/19/17 [address] [place] [address] documented as of this encounter
--- OUTSIDE RECORDS SUMMARY | 2022-07-09 14:35 | XMS_ITS | Encounter Summary ---
:1950 Author Organization [facility] Address [address] [place] [address] Care Team Providers Name Role Phone Elyse Paredes MD Primary Care Provider Encounter Details Date Type Department Care Team Description 11/17/2018 Office Visit [facility] Radiation Therapy [address] [place] [phone] Social History Tobacco Use Types Packs/Day Years [...] Description 08/13/2022 Appointment Radiology Denise Aguirre APRN, TRIBAL COUNCIL MEMBER 640 [place], [place] [address] (Wo rk) 08/13/2022 Appointment Hematology and Oncology Denise Aguirre APRN, TRIBAL COUNCIL MEMBER [address] [place], [place] [address] (Wo rk) documented as [...] on filedocumented in this encounter Care Teams Lining Presser Relationship Specialty Start Date End Date Elyse Paredes MD PCP - General Family Practice 03/19/17 [address] [place], [place] [phone] documented as of this encounter
--- OUTSIDE RECORDS SUMMARY | 2022-07-09 14:35 | XMS_ITS | Encounter Summary ---
:1950 Author Organization [facility] Address [address] [place] [address] Care Team Providers Name Role Phone Elyse Paredes MD Primary Care Provider Encounter Details Date Type Department Care Team Description 12/09/2018 Notes/Orders [facility] Cancer [place] hna Center at [facility], [facility] [id number] [place] [address] [phone] (Wo rk) Social History Tobacco Use Types [...] Team Description 08/13/2022 Appointment Radiology Denise Aguirre, ASTROPHYSICS PROFESSOR, MANAGER CAR [address] [place], [place] [address] (Wo rk) 08/13/2022 Appointment Hematology and Oncology Denise Aguirre APRN, MANAGER CAR [address] [place], [place] [address] (Wo rk) documented as [...] on filedocumented in this encounter Care Teams Veneer Clipper Helper Relationship Specialty Start Date End Date Elyse Paredes MD PCP - General Family Practice 03/19/17 1540 [place] [address] documented as of this encounter
--- OUTSIDE RECORDS SUMMARY | 2022-07-09 14:35 | XMS_ITS | Encounter Summary ---
:1950 Author Organization [facility] Address [address] [place] [address] Care Team Providers Name Role Phone Elyse Paredes MD Primary Care Provider Encounter Details Date Type Department Care Team Description 12/09/2018 [facility] Visit [facility] [place] [facility] at [facility] JORDAN Aldana of left breast in Hospital 640 [facility] female, estrogen 640 [place], [place] receptor positive, [place] [address] unspecified site of [phone] (Wo rk) breast (HRC) (Primary Dx) Social [...] Body Mass Index 53.74 09/16/2018 11:15 AM STUDENT OFFICER documented in this encounter Patient Instructions Patient InstructionsElisa Madrid MBBS - 12/09/2018 1:20 PM CDT Dear Marci, It was a pleasure to meet you. Plan: 1. In approximately 2 months: DEXA scan, serum 25-hydroxy vitamin D, creatinine, calcium, phosphorusprior to the visit with me. Please do not hesitate to contact us at [phone] any time. Thank you. Sincerely, JORDAN Jiang.......12/09/2018 documented in this encounter Progress Notes Elisa [place] MBBS - 12/09/2018 1:20 PM CDT Medical Oncology Note Date of Service: 12/09/2018 Cancer Summary (Printed and given to the patient): Diagnosis, Stage, Prognostic Factors: ?? 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 Juan Cho from endocrinology. She continues to have exertional dyspnea, which is chronic and stable. She is desperately trying to lose weight, but has unfortunately not been successful. Review of Systems: Detailed 12 point ROS was performed and was positive only for the symptoms mentioned above. ECOG performance status: 0. Past Medical History, Allergies, Current Medications linked to today's encounter were [facility] and confirmed with the patient. Physical exam: [...] Oncotype DX recurrence score of 10, the [id number] year risk of distant recurrence of three [...] Description 08/13/2022 Appointment Radiology Denise Aguirre APRN, FLOUR TESTER 640 [place], [place] [address] (Wo rk) 08/13/2022 Appointment Hematology and Oncology Denise Aguirre APRN, FLOUR TESTER [address] [place], [place] [address] (Wo rk) documented as [...] Primary documented in this encounter Care Teams Range Conservationist Relationship Specialty Start Date End Date Elyse Paredes MD PCP - General Family Practice 03/19/17 1540 [place], [place] [phone] documented as of this encounter
--- OUTSIDE RECORDS SUMMARY | 2022-07-09 14:36 | XMS_ITS | Encounter Summary ---
:1950 Author Organization [facility] Address [address] [place] [address] Care Team Providers Name Role Phone Elyse [...] Team Description 08/13/2022 Appointment Radiology Denise Aguirre, MOTORCYCLE MECHANIC APPRENTICE, BOTTLE AND GLASS INSPECTOR 640 [place], [place] [address] (Wo rk) 08/13/2022 Appointment Hematology and Oncology Denise Aguirre APRN, BOTTLE AND GLASS INSPECTOR [address] [place], [place] [address] (Wo rk) documented as [...] on filedocumented in this encounter Care Teams Hvac Sales Engineer Relationship Specialty Start Date End Date Elyse Paredes MD PCP - General Family Practice 03/19/17 [address] [place] [address] documented as of this encounter
--- OUTSIDE RECORDS SUMMARY | 2022-07-09 14:36 | XMS_ITS | Encounter Summary ---
:1950 Author Organization [facility] Address [address] [place] [address] Care Team Providers Name Role Phone Elyse [...] BLVD insulin lispro, human, [address] [place], [place] (HUMALOG, ADMELOG) 100 [place] [address] UNIT/ML injection pen) [phone] Social History Tobacco Use Types Packs/Day Years [...] Completed per Physician Order. Yosi Greco RN TIONAL ED INSTRUCTOR Interface, Out Surescripts Prov Query - 09/29/2018 [...] HBA1C: 8.2 % on 08/09/2018 Powered by Poken, Reference: [id number], 09/29/2018 12:17:01 PM Carlos ARRIAZA: [facility] CARE TEAM ([id number]) Elda Spicer - 09/29/2018 12:16 PM CST Requesting a 90 day supply Rx for insulin lispro, human, (HUMALOG, ADMELOG) 100 UNIT/ML injection pen. Elda Espinal TIONAL ED INSTRUCTOR documented in this encounter Plan of Treatment Upcoming Encounters Date Type Specialty Care Team Description 08/13/2022 Appointment Radiology Denise Aguirre, LINE TENDER, SPANISH MOSS PICKER 640 [place], [place] [address] (Wo rk) 08/13/2022 Appointment Hematology and Oncology Denise Aguirre, GRIFFIN, SPANISH MOSS PICKER [address] [place], [place] [address] (Wo rk) documented [...] insulin documented in this encounter Care Teams Research And Development Specialist Relationship Specialty Start Date End Date Elyse Paredes MD PCP - General Family Practice 03/19/17 [address] [address] documented as of this encounter
--- OUTSIDE RECORDS SUMMARY | 2022-07-09 14:36 | XMS_ITS | Encounter Summary ---
:1950 Author Organization [facility] Address [address] [place] [address] Care Team Providers Name Role Phone Elyse Paredes MD Primary Care Provider Encounter Details Date Type Department Care Team Description 09/30/2018 Notes/Orders [facility] Cancer [place] hna Center at [facility], [facility] [address] [place] [address] [phone] (Wo rk) Social History Tobacco Use Types [...] Team Description 08/13/2022 Appointment Radiology Denise Aguirre, HOMICIDE SQUAD SERGEANT, WRAPPER HANDS SPRAYER 640 [place], [place] [address] (Wo rk) 08/13/2022 Appointment Hematology and Oncology Denise Aguirre APRN, WRAPPER HANDS SPRAYER [address] [place], [place] [address] (Wo rk) documented [...] filedocumented in this encounter Care Teams Public Transit Specialist Relationship Specialty Start Date End Date Elyse Paredes MD PCP - General Family Practice 03/19/17 1540 [place] [address] documented as of this encounter
--- OUTSIDE RECORDS SUMMARY | 2022-07-09 14:36 | XMS_ITS | Encounter Summary ---
:1950 Author Organization [facility] Address [address] [place] [address] Care Team Providers Name Role Phone Elyse Paredes MD Primary Care Provider Encounter Details Date Type Department Care Team Description 11/09/2018 Office Visit [facility] Radiation Therapy [address] [place] [address] [phone] Social History Tobacco Use Types Packs/Day Years [...] Description 08/13/2022 Appointment Radiology Denise Aguirre APRN, ROTOFORMER BACKTENDER 640 [place], [place] [address] (Wo rk) 08/13/2022 Appointment Hematology and Oncology Denise Aguirre APRN, ROTOFORMER BACKTENDER [address] [place], [place] [address] (Wo rk) documented as [...] on filedocumented in this encounter Care Teams Bulk Filler Relationship Specialty Start Date End Date Elyse Paredes MD PCP - General Family Practice 03/19/17 [address] [place] [place], [place] [phone] documented as of this encounter
--- OUTSIDE RECORDS SUMMARY | 2022-07-09 14:36 | XMS_ITS | Encounter Summary ---
:1950 Author Organization [employer] Address [address] [place] [address] Care Team Providers Name Role Phone Elyse [...] Team Description 08/13/2022 Appointment Radiology Denise Aguirre, PIPE COVERER AND INSULATOR, MRI CT TECH 640 [place], [place] [address] (Wo rk) 08/13/2022 Appointment Hematology and Oncology Denise Aguirre APRN, MRI CT TECH 640 [place], [place] [address] (Wo rk) documented as [...] on filedocumented in this encounter Care Teams Tube Making Machine Operator Relationship Specialty Start Date End Date Elyse Paredes MD PCP - General Family Practice 03/19/17 1540 [place] [address] documented as of this encounter
--- OUTSIDE RECORDS SUMMARY | 2022-07-09 14:36 | XMS_ITS | Encounter Summary ---
:1950 Author Organization [facility] Address [address] [place] [address] Care Team Providers Name Role Phone Elyse Paredes MD Primary Care Provider Reason for Visit Reason Comments MEDICATION CHECK Encounter Details Date Type Department Care Team Description 09/23/2018 Telephone Specialty Center 401 Manasa Salas MD MEDICATION CHECK Endocrinology Clinic [address] [place] [address] [place] [address] [phone] Social History Tobacco Use Types Packs/Day Years [...] per Physician Order. Patient informed.Yosi Greco RN IGURATION CONSULTANT Lety Matthews - 09/23/2018 4:26 PM CST Miscellaneous Questions & FYI's [ Appt Center/Petroleum Supply Specialist: If this call is after 3 p.m., communicate to patient: If we are not able to get back to you by the end of the day and your symptoms worsen please contact the Careline at [phone] OR at .] Is this a symptom? [...] message on your voicemail? Yes Lety Matthews IGURATION CONSULTANT documented in this encounter Plan of Treatment Upcoming Encounters Date Type Specialty Care Team Description 08/13/2022 Appointment Radiology Denise Aguirre, PEST CONTROLLER, ASSEMBLER FILTERS 640 [place], [place] [address] (Wo rk) 08/13/2022 Appointment Hematology and Oncology Denise Aguirre APRN, ASSEMBLER FILTERS [address] [place], [place] [address] (Wo rk) documented as [...] insulin documented in this encounter Care Teams Investigator Relationship Specialty Start Date End Date Elyse Paredes MD PCP - General Family Practice 03/19/17 15[address] [place] [address] documented as of this encounter
--- OUTSIDE RECORDS SUMMARY | 2022-07-09 14:36 | XMS_ITS | Encounter Summary ---
:1950 Author Organization [employer] Address [address] [place] [address] Care Team Providers Name Role Phone Elyse Paredes MD Primary Care Provider Reason for Visit Reason Comments QUESTIONS, GENERAL Questions regarding diabetes care Encounter Details Date Type Department Care Team Description 10/10/2018 Telephone Specialty Center 401 Manasa Salas, Renuka SCHMITZ, GENERAL Endocrinology Clinic (Questions regarding [address] [facility]. [address] [facility] diabetes care) [place] [address] [place], [place] [phone] [facility] Social History Tobacco Use Types Packs/Day [...] PM CDT Spoke w/ Jeri WALL at [facility]. It is fine with Dr Salas to have patient use Nirav or dexcom. No other questions.Yosi Greco RN Jimenez Sanchez - 10/10/2018 3:47 PM CDT Miscellaneous Questions & FYI's [ Appt Center/Custodial Manager: If this call is after 3 p.m., communicate to patient: If we are not able to get back to you by the end of the day and your symptoms worsen please contact the Careline at [phone] OR at .] Is this a symptom? No What is your question or concern? Jeri, Patient's childcare aide at [facility] calling to ask Dr. Salas if there is any reasonthe patient should not be started on the Nirav. She thinks it will be beneficial to the patient since she is testing more often. She is also asking how often the patient should be testing. Jeri can be reached at [phone] if there are any questions. Have you recently been seen for this? No Is it okay to leave a detailed message on your voicemail? Yes Jimenez Sanchez documented in this encounter Plan of Treatment Upcoming Encounters Date Type Specialty Care Team Description 08/13/2022 Appointment Radiology Denise Aguirre, GEODETIC TECHNICIAN, IMPORT/EXPORT AGENT 640 [place], [place] [address] (Wo rk) 08/13/2022 Appointment Hematology and Oncology Denise Aguirre, GEODETIC TECHNICIAN, IMPORT/EXPORT AGENT 640 [place], [place] [address] (Wo rk) documented as [...] - General Family Practice 03/19/17 1540 [place] [address] documented as of this encounter
--- OUTSIDE RECORDS SUMMARY | 2022-07-09 14:36 | XMS_ITS | Encounter Summary ---
:1950 Author Organization [facility] Address [address] [place] [address] Care Team Providers Name Role Phone Elyse Paredes MD Primary Care Provider Reason for Visit Reason Comments Lymphedema Therapies (Routine) - Closed Specialty Diagnoses / Procedures Referred By Contact Refer red To Contact Diagnoses Malignant neoplasm of left breast in female, estrogen receptor positive, unspecified site of breast (HRC) S/P lumpectomy, left breast Maryellen Beaulieu MD [address] [place] [address] Referral ID Status Reason Start Date Expiration Date Visits Requ ested Visits Authorized [id number] Closed 09/30/2018 11/29/2018 1 1 Encounter Details Date Type Department Care Team Description 11/01/2018 Office Visit Liana Paige Post-mast ectomy lymphedema syndrome (Primary Dx); [facility] Jimmy Giles neoplasm of left breast in female, estrogen receptor positive, unspecified site of breast (HRC) Occupational Therapy OTR/L [address] [place], [place] [phone] Social History Tobacco Use Types Packs/Day Years [...] History, Diagnostic Tests, and Medications: Reviewed in [employer]. Barriers/Restrictions: 4 nodes removed from left sentinel. [...] axilla Adherence: None Hardness: Mild Flat Coloration: Brenas- healing Skin: Within normal limits. Range of [...] A Moderate Complexity Occupational Therapy Evaluation CPT 40447 was completed. Occupational profile/history: expanded review of [...] Team Description 08/13/2022 Appointment Radiology Denise Aguirre, DATABASE SOFTWARE TECHNICIAN, SAFETY DEPOSIT SUPERVISOR 640 [place], [place] [address] (Wo rk) 08/13/2022 Appointment Hematology and Oncology Denise Aguirre DATABASE SOFTWARE TECHNICIAN, SAFETY DEPOSIT SUPERVISOR [address] [place], [place] [address] (Wo rk) Scheduled Referrals [...] (HRC) documented in this encounter Care Teams Mill Attendant Relationship Specialty Start Date End Date Elyse Paredes MD PCP - General Family Practice 03/19/17 1540 [place] [address] documented as of this encounter
--- OUTSIDE RECORDS SUMMARY | 2022-07-09 14:36 | XMS_ITS | Encounter Summary ---
:1950 Author Organization [facility] Address [address] [place] [address] Care Team Providers Name Role Phone Elyse Paredes MD Primary Care Provider Reason for Referral Therapies (Routine) - Closed Specialty Diagnoses / Procedures Referred By Contact Refer red To Contact Diagnoses Malignant neoplasm of overlapping sites of left breast in female, estrogen receptor positive (HRC) Elisa Madrid MBBS [address] [place] [address] Referral ID Status Reason Start Date Expiration Date Visits Requ ested Visits Authorized [id number] Closed 10/21/2018 12/20/2018 1 1 Scheduling Instructions Your provider has recommended an appoint ment with [facility] Radiation Therapy. You may call [phone] to schedule yo ur appointment. If you prefer, a industrial machine operator will contact you within the next 3 busin ess days to assist you in setting up this appointment. We suggest you call your dineout insurance company about your coverage and benefits for this appointment. Reason for Visit Reason Comments Test Results Encounter Details Date Type Department Care Team Description 10/20/2018 Telephone [facility] Elisa Madrid Test Results at [facility] JORDAN Kahn [address] [address] [place] [address] [phone] (Wo rk) Social History Tobacco Use Types [...] Description 08/13/2022 Appointment Radiology Denise Aguirre APRN, HABITAT BIOLOGIST [address] [place], [place] [address] (Tonio sorenson) 08/13/2022 Appointment Hematology and Oncology Denise Aguirre APRN, HABITAT BIOLOGIST [address] [place], [place] [address] (Tonio sorenson) Scheduled Referrals [...] the original. Monitoring My Diabetes: [facility] to [facility] blood sugars before each meal and bedtime. documented as of this encounter Visit Diagnoses Diagnosis Malignant neoplasm of overlapping sites of left breast in female, estrogen receptor positive (HRC) - Primary documented in this encounter Care Teams Sba Business Development Officer Relationship Specialty Start Date End Date Elyse Paredes MD PCP - General Family Practice 03/19/17 [address] [place] [address] documented as of this encounter
--- OUTSIDE RECORDS SUMMARY | 2022-07-09 14:36 | XMS_ITS | Encounter Summary ---
:1950 Author Organization [facility] Address [address] [place] [address] Care Team Providers Name Role Phone Elyse Paredes MD Primary Care Provider Reason for Referral Therapies (Routine) - Closed Specialty Diagnoses / Procedures Referred By Contact Refer red To Contact Diagnoses Malignant neoplasm of left breast in female, estrogen receptor positive, unspecified site of breast (HRC) S/P lumpectomy, left breast Maryellen Beaulieu MD [address] [place] [address] Referral ID Status Reason Start Date Expiration Date Visits Requ ested Visits Authorized [id number] Closed 09/30/2018 11/29/2018 1 1 Scheduling Instructions Your provider has recommended an appoint ment with a [facility] Lymphedema Therapist. Please stop at the clinic check out desk for assistance with scheduling or if you prefer to call for your appointment you may call [facility] at [phone]. ORK ENGINEER Reason for Visit Reason Comments POST-OP,EXAM 09/16 left lumpectomy with se ntinel node biopsy, IDC/DCIS Encounter Details Date Type Department Care Team Description 09/30/2018 Office Visit [facility] Maryellen Beaulieu MD Malignant neoplasm of left breast in fem grey, estrogen receptor positive, unspecified site of breast (HRC) (Primary Dx); Center [address] S/P lumpectomy, left breast [address] [place] [address] [place], [place] [phone] [id number] Social History Tobacco Use Types Packs/Day Years [...] Comments Blood Pressure 128/68 09/30/2018 9:40 AM NETWORK ENGINEER Pulse 66 09/30/2018 9:40 AM NETWORK ENGINEER Temperature 37.1 ??C (98.7 ??F) 09/30/2018 9:40 AM NETWORK ENGINEER Respiratory Rate - - Oxygen Saturation [...] Dr. Madrid today at 10:20 at the [facility] [place]. If you have any questions or need to change your appointment please contact them at [phone]. Dr. Beaulieu would like you to meet with the Occupational Therapist to discuss lymphedema risk prevention. Please call [facility] [place] at [phone] to schedule an appointment. Please schedule a 6 month follow up appointment with Dr. Beaulieu. You may schedule today or call [phone] to schedule. There is glue covering your [...] from 6:00 - 7:30 pm at the [facility], [address] [place] [address], in the 4th floor Neurology waiting area. Free parking is available, no registration necessary. Please [phone] for more information. Contact the [facility] Nurse Practitioner ([phone]) or the nurse ([phone]) Wednesday through Wednesday 8-4 pm with any concerns or questions regarding your incision. After hours contact the Nurse Careline at ([phone]). Thank you for allowing us to participate in your care. Maryeleln Beaulieu MD ORK ENGINEER documented in this encounter Progress Notes Maryellen Beaulieu MD - 09/30/2018 9:45 AM CST 09/30/2018 S: The patient is a 68 y.o. female with breast cancer s/p partial mastectomy. Final pathology is noted below. She is doing well with little discomfort. She is considering moving to [place] for penitentiary (she is from there originally). Breast cancer [...] months Maryellen Beaulieu MD 09/30/2018, 11:58 AM ORK ENGINEER documented in this encounter Plan of Treatment Upcoming Encounters Date Type Specialty Care Team Description 08/13/2022 Appointment Radiology Denise Aguirre, INCENDIARY POWDER MIXER, TITLE ASSISTANT [address] [place], [place] [address] (Wo rk) 08/13/2022 Appointment Hematology and Oncology Denise Aguirre APRN, TITLE ASSISTANT [address] [place], [place] [address] (Wo rk) Scheduled Referrals [...] status documented in this encounter Care Teams Chief Recordist Relationship Specialty Start Date End Date Elyse Paredes MD PCP - General Family Practice 03/19/17 [address] [place] [address] documented as of this encounter
--- OUTSIDE RECORDS SUMMARY | 2022-07-09 14:36 | XMS_ITS | Encounter Summary ---
:[address] [facility] Address [address] [place] [address] Care Team Providers Name Role Phone Elyse Paredes MD Primary Care Provider Encounter Details Date Type Department Care Team Description 11/01/2018 Office Visit [facility] at Jia Trujillo MD [facility] Radiation Therapy [address] [place] [address] Social History Tobacco Use Types Packs/Day Years [...] Margins negative. The closest is 7 mm. ER/WA positive, HER-2 negative. Oncotype recurrence score 10. [...] of the heart, lung and LAD. The assistant manager bilingual and I will analyze the results of both plans and determine if DIBH will benefit thispatient as described above. If dosimetry and I determine that DIBH will benefit the patient and therefore is medically necessary, our staff will swimming coach the patient's breathing during treatment using [...] verify compliance with my orders and all supervisor vendor quality measures. IGRT: I am ordering weekly MV [...] a week. Deloris Trujillo MD Radiation Oncology [phone] Deloris Trujillo MD - 11/01/2018 10:00 AM [...] image sets were then transferred to the Tvinci treatment planning system. I was present and supervised the entire simulation procedure. Deloris Trujillo MD Radiation Oncology [phone] documented in this encounter Plan of Treatment Upcoming Encounters Date Type Specialty Care Team Description 08/13/2022 Appointment Radiology Denise Aguirre APRN, APPLICATION ARCHITECT MANAGER [address] [place], [place] [address] (Wo rk) 08/13/2022 Appointment Hematology and Oncology Denise Aguirre APRN, APPLICATION ARCHITECT MANAGER [address] [place], [place] [address] (Wo rk) documented as [...] on filedocumented in this encounter Care Teams Upsetter Setter Up Relationship Specialty Start Date End Date Elyse Paredes MD PCP - General Family Practice 03/19/17 [address] [place] [address] documented as of this encounter
--- OUTSIDE RECORDS SUMMARY | 2022-07-09 14:36 | XMS_ITS | Encounter Summary ---
:1950 Author Organization [facility] Address [address], [place] [address] Care Team Providers Name Role Phone Elyse Paredes MD Primary Care Provider Encounter Details Date Type Department Care Team Description 11/08/2018 Office Visit [facility] Cancer Ilya Gerardo (Clinic Center at Yuki Ramirez MD Request) Hospital Radiation [address] [facility] [place], [place] [address] [facility] [address] [place] [address] [phone] Social History Tobacco Use Types Packs/Day Years [...] Team Description 08/13/2022 Appointment Radiology Denise Aguirre, RN TELEPHONE TRIAGE, SHIFT SUPERVISOR [address] [place], [place] [address] (Wo rk) 08/13/2022 Appointment Hematology and Oncology Denise Aguirre APRN, SHIFT SUPERVISOR [address] [place], [place] [address] (Wo rk) documented as [...] filedocumented in this encounter Care Teams Computer Systems Security Analyst Relationship Specialty Start Date End Date Elyse Paredes MD PCP - General Family Practice 03/19/17 [address] [place] [address] documented as of this encounter
--- OUTSIDE RECORDS SUMMARY | 2022-07-09 14:36 | XMS_ITS | Encounter Summary ---
:1950 Author Organization [facility] Address [address] [place] [address] Care Team Providers Name Role Phone Elyse Paredes MD Primary Care Provider Reason for Visit Consult/Transfer Care (Routine) - Closed Specialty Diagnoses / Procedures Referred By Contact Refer red To Contact Diagnoses Malignant neoplasm of overlapping sites of left breast in female, estrogen receptor positive (HRC) Maryellen Beaulieu MD [address] [place] [address] Referral ID Status Reason Start Date Expiration Date Visits Requ ested Visits Authorized [id number] Closed 08/11/2018 11/10/2019 1 1 Encounter Details Date Type Department Care Team Description 09/30/2018 Office Visit [facility] Cancer Jahagirdar, Malign ant neoplasm Center at [facility] 640 [facility] sites of left [address] [facility]. [place], [place] breast in female, [place] [address] estrogen receptor [phone] (Wo rk) positive (HRC) (Primary Dx) Social [...] Comments Blood Pressure 135/62 09/30/2018 10:29 AM BENCH PRESS OPERATOR Pulse 73 09/30/2018 10:29 AM BENCH PRESS OPERATOR Temperature 37.2 ??C (98.9 ??F) 09/30/2018 10:29 AM BENCH PRESS OPERATOR Respiratory Rate - - Oxygen Saturation - - Inhaled Oxygen Concentration - - Weight 131.1 kg (289 lb) 09/30/2018 10:29 AM BENCH PRESS OPERATOR Height - - Body Mass Index 52.86 09/16/2018 11:15 AM BENCH PRESS OPERATOR documented in this encounter Patient Instructions Patient InstructionsElisa Madrid MBBS - 09/30/2018 10:20 AM BENCH PRESS OPERATOR Dear Marci, It was a pleasure to [...] do not hesitate to contact us at [phone] any time. Thank you. Sincerely, JORDAN Jiang H PRESS OPERATOR documented in this encounter Progress Notes Elisa [...] a 68 y.o. 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 She has chronic exertional dyspnea which is being investigated and managed by her cardiology team. Her diabetes is not under good control, managed by her deckhand maintenance. He denies any symptoms suggestive of peripheral [...] Diabetes Education ??? Coronary artery disease involving [place] coronary artery of [place] heart without angina pectoris(HRC) ??? Malignant neoplasm [...] 10 mg by mouth. 03/19/2017: Received from: [facility] Received Sig: Take 10 mg by mouth [...] Take 1/2 tab daily 03/19/2017: Received from: [facility] ??? warfarin (COUMADIN) 5 MG tablet Take [...] file Gets together: Not on file Attends [employer] service: Not on file Active member of [...] Similar data have been confirmed in the [facility] clinical trial with Arimidex. In the NSABP [...] chemo: verbal Advanced Directives: N/A JORDAN Jiang H PRESS OPERATOR Lilly Kim RN - 09/30/2018 10:20 AM CST Oncotype request sent to pathology report. Lilly Kim RN 09/30/2018, 3:59 PM H PRESS OPERATOR documented in this encounter Plan of Treatment Upcoming Encounters Date Type Specialty Care Team Description 08/13/2022 Appointment Radiology Denise Aguirre, BI TRI OPERATOR, SUPPLIER QUALITY ENGINEERING MANAGER [address] [place] [address] [place] [address] (Wo rk) 08/13/2022 Appointment Hematology and Oncology Denise Aguirre, GRIFFIN, SUPPLIER QUALITY ENGINEERING MANAGER [address] [place], [place] [address] (Wo rk) Scheduled Referrals [...] Primary documented in this encounter Care Teams Windows Mobile Developer Relationship Specialty Start Date End Date Elyse Paredes MD PCP - General Family Practice 03/19/17 [address] [place] [address] documented as of this encounter
--- OUTSIDE RECORDS SUMMARY | 2022-07-09 14:36 | XMS_ITS | Encounter Summary ---
:1950 Author [facility] Address [address] [place] [address] Care Team Providers Name Role Phone Elyse Paredes MD Primary Care Provider Reason for Visit Therapies (Routine) - Closed Specialty Diagnoses / Procedures Referred By Contact Refer red To Contact Diagnoses Malignant neoplasm of overlapping sites of left breast in female, estrogen receptor positive (HRC) Elisa Madrid MBBS [address] [place] [address] Referral ID Status Reason Start Date Expiration Date Visits Requ ested Visits Authorized [id number] Closed 10/21/2018 12/20/2018 1 1 Encounter Details Date Type Department Care Team Description 10/27/2018 Office Visit [facility] at Jia Trujillo MD [facility] Radiation Therapy [address] [place] [phone] Social History Tobacco Use Types Packs/Day Years [...] Body Mass Index 52.68 09/16/2018 11:15 AM RUBBER STAMP DIE INSPECTOR documented in this encounter Patient Instructions Patient InstructionsFleming, Saskia R, RN - 10/27/2018 1:30 PM CDT Radiation Therapy for Breast Cancer: Patient Instructions You will have radiation therapy treatments to your breast. Some possible side effects may include skin irritation and fatigue. Here???s what you can do to minimize these side effects. Skin Irritation Redness, dryness or itching may begin as early as penitentiary through your therapy. Please ask your nurse [...] Eucerin, Lubriderm, CeraVe, Cetaphil and Goldbond ??? [id number] hydrocortisone cream for itching Apply products 2 [...] Stage IA (cT1b, cN0, cM0, G2, ER+, DC+, HER2-, Oncotype DX score: 10) - Unsigned - Pathologic: Stage IA (pT1c, pN0(sn), cM0, G2, ER+, DC+, HER2-, Oncotype DX score: 10) - Unsigned [...] type: Invasive ductal carcinoma ? Histologic Grade ([place]): ??II of III, [place] score 6 of 9 (nuclear grade 2, [...] of positive nodes: ??Zero ER: High positive DC: Positive HER-2/sally: Negative [...] Diabetes Education ??? Coronary artery disease involving council coronary artery of council heart without angina pectoris(HRC) ??? Malignant neoplasm [...] HPI. She goes to cardiac rehab at [facility] at 10am. Physical Examination: General: Well developed, [...] Informed consent has been signed today. Deloris Trujillo MD Radiation Oncology [phone] Of note is that portions of this note were generated in part using the Bunch voice recognition system. I have attempted to proof-read it but apologize for any unrecognized office machines wirer errors. documented in this encounter Nursing Notes Saskia Ghotra, RN - 10/27/2018 1:30 PM CDT [facility] Radiation Therapy Initial Assessment Nursing Note General Information Patient Name: Marci Diaz Date of : 1950 General Information: Patient is here today to meet with Dr. Trujillo to discuss radiation treatment to her left breast. Lump was found on routine mammogram. She had a left breast lumpectomy on September 16, 2018 with a sentinel lymph node biopsy. She is ER/DC+ HER2- 0/4 lymph nodes positive. 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 Saskia Ghotra RN Oncology/Radiation Therapy Nurse --- End of Report --- documented in this encounter Plan of Treatment Upcoming Encounters Date Type Specialty Care Team Description 08/13/2022 Appointment Radiology Denise Aguirre APRN, CASINO CASHIER [address] [place], [place] [address] (Tonio sorenson) 08/13/2022 Appointment Hematology and Oncology Denise Aguirre APRN, CASINO CASHIER [address] [place], [place] [address] (Wo delta) Scheduled Referrals [...] on filedocumented in this encounter Care Teams Gravel Hauler Relationship Specialty Start Date End Date Elyse Paredes MD PCP - General Family Practice 03/19/17 [address] [place] [address] documented as of this encounter
--- OUTSIDE RECORDS SUMMARY | 2022-07-09 14:36 | XMS_ITS | Encounter Summary ---
:1950 Author Organization [facility] Address [address] [place] [address] Care Team Providers Name Role Phone Elyse Paredes MD Primary Care Provider Encounter Details Date Type Department Care Team Description 11/08/2018 Office Visit [facility] Cancer Center Suzie Gerardo at [facility] MD [facility] Radiation Therapy [address] [address] [place] [address] [phone] Social History Tobacco Use Types Packs/Day Years [...] Description 08/13/2022 Appointment Radiology Denise Aguirre, MEDICAL RECORDS ADMINISTRATOR, GENERAL FARMER [address] [place], [place] [address] (Wo rk) 08/13/2022 Appointment Hematology and Oncology Denise Aguirre APRN, GENERAL FARMER [address] [place], [place] [address] (Wo rk) documented as [...] on filedocumented in this encounter Care Teams Beauty Therapist Relationship Specialty Start Date End Date Elyse Paredes MD PCP - General Family Practice 03/19/17 [address] [place] [address] documented as of this encounter
--- OUTSIDE RECORDS SUMMARY | 2022-07-09 14:37 | XMS_ITS | Encounter Summary ---
:1950 Author Organization [facility] Address [address] [place] [address] Care Team Providers Name Role Phone Elyse Paredes MD Primary Care Provider Reason for Referral Procedure/Equipment (Routine) - Incomplete Specialty Diagnoses / Procedures Referred By Contact Refer red To Contact Diagnoses Malignant neoplasm of left breast in female, estrogen receptor positive, unspecified site of breast (HRC) Maryellen Beaulieu MD Procedures MM Seed Specimen [address] [place] [address] Referral ID Status Reason Start Date Expiration Date Visits V isits Requested Authorized [id number] Incomplete 08/11/2018 11/10/2019 1 1 URETOR REPAIRER (Routine) - Incomplete Specialty Diagnoses / Procedures Referred By Contact Refer red To Contact Diagnoses Malignant neoplasm of left breast in female, estrogen receptor positive, unspecified site of breast (HRC) Maryellen Beaulieu MD Procedures MM Sent Node Seed Loc WO NM Img Lt [address] [place] [address] Referral ID Status Reason Start Date Expiration Date Visits V isits Requested Authorized [id number] Incomplete 08/11/2018 11/10/2019 6 6 URETOR REPAIRER Encounter Details Date Type Department Care Team Description 08/11/2018 Notes/Orders [facility] Breast Health Maryellen Beaulieu MD Malignant neoplasm of Center [address] left breast in female, [address] [facility] [place] [address] [place], [place] positive, unspecified [phone] site of breast ([facility]) [phone] (Primary Dx) (Work) Social History Tobacco Use [...] Team Description 08/13/2022 Appointment Radiology Denise Aguirre, BODY WELDER, OPERATOR RECEPTIONIST [address] [place], [place] [address] (Wo rk) 08/13/2022 Appointment Hematology and Oncology Denise Aguirre, BODY WELDER, OPERATOR RECEPTIONIST [address] [place], [place] [address] (Tonio rk) documented as [...] the original. Monitoring My Diabetes: Continue to [facility] k blood sugars before each meal and bedtime. documented as of this encounter Results MM Sent Node Seed Loc WO NM Img Lt (09/16/2018 10:16 AM CARBURETOR REPAIRER) Anatomical Region Laterality Modality Breast Mammography, Nuclear Medicine Specimen (Source) Anatomical Location Collection Method / Collectio n Time Received Time / Laterality Volume Impressions 09/16/2018 10:27 AM CARBURETOR REPAIRER : ?? Sonographically guided left breast radio active seed localization and sentinel lymph node injection. Narrative 09/16/2018 10:27 AM CARBURETOR REPAIRER LEFT BREAST ULTRASOUND GUIDED RADIOACTIV E SEED [...] NM MM Seed Specimen (09/16/2018 9:32 AM CARBURETOR REPAIRER) Anatomical Region Laterality Modality Breast Mammography Specimen (Source) Anatomical Location Collection Method / Collectio n Time Received Time / Laterality Volume Narrative 09/16/2018 1:34 PM CARBURETOR REPAIRER Indication: Breast carcinoma Specimen mammogram demonstrates the [...] (HRC) documented in this encounter Care Teams [employer] Relationship Specialty Start Date End Date Elyse Paredes MD PCP - General Family Practice 03/19/17 [address] [place], [place] [id number] documented as of this encounter
--- OUTSIDE RECORDS SUMMARY | 2022-07-09 14:37 | XMS_ITS | Encounter Summary ---
:1950 Author Organization [facility] Address [address] [place] [address] Care Team Providers Name Role Phone Elyse Paredes MD Primary Care Provider Reason for Visit Reason Comments AFTERCARE, SURGICAL Encounter Details Date Type Department Care Team Description 09/19/2018 Telephone Operating Room Maryellen Beaulieu MD AFTERCARE, SURGICAL [address] [place] [address] [facility] [phone] [place], [place] [phone] (Wo rk) Social History Tobacco Use Types [...] Description 08/13/2022 Appointment Radiology Denise Aguirre, CERTIFIED MIDWIFE, OPERATING ROOM TECH [address] [place], [place] [address] (Wo rk) 08/13/2022 Appointment Hematology and Oncology Denise Aguirre APRN, OPERATING ROOM TECH [address] [place], [place] [address] (Wo rk) documented as [...] on filedocumented in this encounter Care Teams Hand Roller Relationship Specialty Start Date End Date Elyse Paredes MD PCP - General Family Practice 03/19/17 [address] [place] [address] documented as of this encounter
--- OUTSIDE RECORDS SUMMARY | 2022-07-09 14:37 | XMS_ITS | Encounter Summary ---
:1950 Author Organization [facility] Address [address] [place] [address] Care Team Providers Name Role Phone Elyse [...] Team Description 08/13/2022 Appointment Radiology Denise Aguirre, REGULATORY COMPLIANCE MANAGER, COMPRESSOR OPERATOR ADJUSTER [address] [place], [place] [address] (Wo rk) 08/13/2022 Appointment Hematology and Oncology Denise Aguirre APRN, COMPRESSOR OPERATOR ADJUSTER [address] [place], [place] [address] (Wo rk) documented as [...] on filedocumented in this encounter Care Teams Internet And E Business Project Manager Relationship Specialty Start Date End Date Elyse Paredes MD PCP - General Family Practice 03/19/17 [address] [place] [address] documented as of this encounter
--- OUTSIDE RECORDS SUMMARY | 2022-07-09 14:37 | XMS_ITS | Encounter Summary ---
:1950 Author Organization [employer] Address [address] [place] [address] Care Team Providers Name Role Phone Elyse Paredes MD Primary Care Provider Encounter Details Date Type Department Care Team Description 09/15/2018 Refill Order Specialty Center 401 Miya Shin MD Endocrinology Clinic 111 [facility] [address] [place] [address] [place] [address] [phone] (Wo rk) Social History Tobacco Use Types [...] - NEXT LAB APPOINTMENT: None Powered by GridBridge, Reference: [id number], 09/15/2018 1:05:11 PM SPRING FORMER, Carlos: MARY YANEZ RN ([id number]) NG FORMER documented in this encounter Plan of Treatment Upcoming Encounters Date Type Specialty Care Team Description 08/13/2022 Appointment Radiology Denise Aguirre APRN, REGIONAL TRAINER [address] [place], [place] [address] (Wo rk) 08/13/2022 Appointment Hematology and Oncology Denise Aguirre APRN, REGIONAL TRAINER [address] [place], [place] [address] (Wo rk) documented as [...] medications documented in this encounter Care Teams Mill Operator Helper Relationship Specialty Start Date End Date Elyse Paredes MD PCP - General [facility] Practice 03/19/17 [address] [place] [address] documented as of this encounter
--- OUTSIDE RECORDS SUMMARY | 2022-07-09 14:37 | XMS_ITS | Encounter Summary ---
:1950 Author Organization [email or web address] Address [address] [place] [address] Care Team Providers Name Role Phone Elyse [...] Expiration Date Visits Requ ested Visits Authorized [id number] 1 1 Encounter Details Date Type Department Care Team Description 09/16/2018 Surgery RH Operating Room Maryellen Montes MD LEFT PARTIAL MASTECTOMY [address] CREST [place] [address] [address]VD LOCALIZATION & LEFT [phone] [place], [place]INEL L[place]MP [place] NODE [address] BIOPSY Social History Tobacco Use Types Packs/Day [...] Comments Blood Pressure 134/72 09/16/2018 1:50 PM SPACE OPERATIONS OFFICER Pulse 70 09/16/2018 1:50 PM SPACE OPERATIONS OFFICER Temperature 36.3 ??C (97.4 ??F) 09/16/2018 1:50 PM SPACE OPERATIONS OFFICER Respiratory Rate 16 09/16/2018 1:50 PM SPACE OPERATIONS OFFICER Oxygen Saturation 97% 09/16/2018 1:50 PM SPACE OPERATIONS OFFICER Inhaled Oxygen Concentration - - Weight 131.1 kg (289 lb) 09/16/2018 11:15 AM SPACE OPERATIONS OFFICER PER PT Height 157.5 cm (5' 2) 09/16/2018 11:15 AM SPACE OPERATIONS OFFICER Body Mass Index 52.86 09/16/2018 11:15 AM SPACE OPERATIONS OFFICER documented in this encounter Discharge Instructions Discharge InstructionsKeaton Drake RN - 09/16/2018 2:30 PM CST Contact Information If it is after hours call the Careline at [phone]. [facility], Anesthesia Today you received General/Minor Sedation: [...] new medications ?? Severe pain ?? Swelling E OPERATIONS OFFICER documented in this encounter Medications at [...] diabetes mellitus type 2 without complications, unspecified correction insulin use status rosuvastatin (CRESTOR) Take 1 [...] diabetes mellitus type 2 without complications, unspecified correction insulin use status metFORMIN XR Take 4 [...] diabetes mellitus type 2 without complications, unspecified correction insulin use status warfarin (COUMADIN) 2.5 TAKE [...] visit. Maryellen Montes MD 09/20/2018, 10:14 AM E OPERATIONS OFFICER documented in this encounter Procedure Notes Maryellen [...] procedure.?? Maryellen Montes MD 09/16/2018, 1:56 PM E OPERATIONS OFFICER Maryellen Montes MD - 09/16/2018 1:42 PM CST Brief Operative Note Date of Procedure: 09/16/2018 Surgeon: Maryellen Montes Care Director Rn: none Pre-operative Diagnosis: Left breast cancer Post-operative [...] follow. Maryellen Montes MD 09/16/2018, 1:42 PM E OPERATIONS OFFICER documented in this encounter Plan of Treatment Upcoming Encounters Date Type Specialty Care Team Description 08/13/2022 Appointment Radiology Denise Aguirre APRN, CREW DISPATCHER [address] [place], [place] [address] (Wo rk) 08/13/2022 Appointment Hematology and Oncology Denise Aguirre APRN, CREW DISPATCHER [address] [place], [place] [address] (Wo rk) documented as [...] 12:23 Malignant neoplasm WITH RADIOACTIVE SEED PM SPACE OPERATIONS OFFICER of left breast in LOCALIZATION & female, estrogen SENTINEL LYMPH NODE receptor positive, BIOPSY unspecified site of breast (HRC) GLUCOSE, WHOLE BLOOD Routine 09/16/2018 11:17 Res ults for this POCT AM SPACE OPERATIONS OFFICER procedure are i n the results section. SURGICAL PATH Routine 09/16/2018 6:00 AM Results for this SPACE OPERATIONS OFFICER procedure are i n the results section. documented in this encounter Results Glucose, Whole Blood POC (09/16/2018 11:17 AM SPACE OPERATIONS OFFICER) athologist Signature Glucose, Whole 166 70 - 180 [facility] Blood mg/dl HOSPITAL Comment: Point of Care Testing Notified Specimen Anatomical Collection Method Collection Time Receive d Time (Source) Location / / Volume Laterality 09/16/2018 11:17 09/16/2018 AM SPACE OPERATIONS OFFICER 11:25 AM SPACE OPERATIONS OFFICER Maryellen Montes MD LAB_1 Performing Organization Address City/State/[place] [address] Surgical Path (09/16/2018 6:00 AM SPACE OPERATIONS OFFICER) [facility] gist Method Time Signature Histology (NOTE) [facility] [...] ?Histologic type: Invasive ductal carcinoma ?Histologic Grade ([place]): ??II of III, [place] score 6 of 9 (nuclear grade 2, [...] below (please refer to case number [id number] ? for complete report). ER: High positive RI: Positive HER-2/sally: Negative (score 0-1+) Pathologic stage [...] 16, 2018 Intraoperative Consultation: Performed Tissue Submission: Shank Burnisher sections (including entire tumor) are submitted in [...] A6 and C7. 09/19/2018 Stacie Jha MD [facility] Department of Pathology [address] [place] [address] ??[address] Specimen Anatomical Collection Method Collection Time Receive d Time (Source) Location / / Volume Laterality Breast 09/16/2018 6:00 AM 9 1:10 SPACE OPERATIONS OFFICER PM SPACE OPERATIONS OFFICER LYMPH NODE BIOPSY 09/16/2018 6:00 AM 09/02 1:10 SPECIMEN / Unknown SPACE OPERATIONS OFFICER PM SPACE OPERATIONS OFFICER Breast 09/16/2018 6:00 AM 9 1:10 SPACE OPERATIONS OFFICER PM SPACE OPERATIONS OFFICER Maryellen Montes MD LAB_1 Performing Organization Address City/State/ZIP Code Phon e Number [address] [address] documented in this encounter Visit Diagnoses Diagnosis [...] 25 mL Left Breast Fold SENSORCAINE) 0.5% SPACE OPERATIONS OFFICER injection ONCE PRN, Starting on Wed09/16/18 at [...] (SUBLIMAZE) injection 25-50 mcg 25-50 mcg, Intravenous, [id number], Pain, Starting on Wed09/16/18 at 1402, Until [...] lactated ringers infusion Started 09/16/2018 11:25 AM SPACE OPERATIONS OFFICER 30 mL/hr Intravenous, at 30 mL/hr, CONTINUOUS, Starting on Wed09/16/18 at 1115, Pre-op lidocaine-epinephrine 1 Given 09/16/2018 1:19 PM 25 mL Left Breast Fold %-1:111466 injection SPACE OPERATIONS OFFICER ONCE PRN, Starting on Wed09/16/18 at 1319, Until Wed09/16/18 at 1731, Intra-op methylene blue (PROVAY BLUE) Given 09/16/2018 2:50 PM SPACE OPERATIONS OFFICER 1 mL Left Breast Fold 0.5% (5 [...] Recently Administered Medications Times are shown in SPACE OPERATIONS OFFICER. Scheduled Medication Order 09/14/2018 09/15/2018 09/16/2018 ceFAZolin [...] RN)[id number] (Infused - Provider: Herlinda Ford APRN, CAMPUS SECURITY OFFICER) Intravenous, at 30 mL/hr, CONTINUOUS, Starting Wed09/16/18 [...] (SUBLIMAZE) injection 25-50 mcg 25-50 mcg, Intravenous, [id number], Pain, Starting Wed09/16/18 at 1402, 25 mcg [...] sheyla l anesthesia, PACU (only) lidocaine-epinephrine 1 %-1:044585 injection 1319 (Given - Provider: Maryellen Montes [...]
Post-op documented in this encounter Care Teams Manager Sound Relationship Specialty Start Date End Date Elyse Paredes MD PCP - General Family Practice 03/19/17 [address] [place] [address] documented as of this encounter
--- OUTSIDE RECORDS SUMMARY | 2022-07-09 14:37 | XMS_ITS | Encounter Summary ---
:1950 Author Organization [employer] Address [address] [place] [address] Care Team Providers Name Role Phone Elyse [...] Expiration Date Visits Requ ested Visits Authorized [id number] 1 1 Encounter Details Date Type Department Care Team Description 09/16/2018 Ancillary Procedure [facility] Breast Maryellen Beaulieu MD [facility] [address] of left breast in 640 [facility] female, [place] [address] [place], [place] receptor positive, [address] unspecified site of [phone] breast (HRC) (Work) Social History Tobacco Use [...] 08/13/2022 Appointment Radiology Denise Aguirre APRN, FIELD ARTILLERY TARGETING TECHNICIAN [address] [place], [place] [address] (Wo rk) 08/13/2022 Appointment Hematology and Oncology Denise Aguirre APRN, FIELD ARTILLERY TARGETING TECHNICIAN [address] [place] [address] (Wo rk) documented as of this [...] for this LOC WO NM IMG LT BRIAR CUTTER of left breast in proced ure are in female, estrogen the results receptor positive, section. unspecified site of breast (HRC) documented in this encounter Results MM Sent Node Seed Loc WO NM Img Lt (09/16/2018 10:16 AM BRIAR CUTTER) Anatomical Region Laterality Modality Breast Mammography, Nuclear Medicine Specimen (Source) Anatomical Location Collection Method / Collectio n Time Received Time / Laterality Volume Impressions 09/16/2018 10:27 AM BRIAR CUTTER : ?? Sonographically guided left breast radio active seed localization and sentinel lymph node injection. Narrative 09/16/2018 10:27 AM BRIAR CUTTER LEFT BREAST ULTRASOUND GUIDED RADIOACTIV E SEED [...] (HRC) documented in this encounter Care Teams Pulling Machine Operator Relationship Specialty Start Date End Date Elyse Paredes MD PCP - General Family Practice 03/19/17 [address] [place], [place] [id number] documented as of this encounter
--- OUTSIDE RECORDS SUMMARY | 2022-07-09 14:37 | XMS_ITS | Encounter Summary ---
:1950 Author Organization [facility] Address [address] [place] [address] Care Team Providers Name Role Phone Elyse Paredes MD Primary Care Provider Reason for Referral Consult/Transfer Care (Routine) - Closed Specialty Diagnoses / Procedures Referred By Contact Refer red To Contact Diagnoses Malignant neoplasm of overlapping sites of left breast in female, estrogen receptor positive (HRC) Maryellen Beaulieu MD [address] [place] [address] Referral ID Status Reason Start Date Expiration Date Visits Requ ested Visits Authorized [id number] Closed 08/11/2018 11/10/2019 1 1 Scheduling Instructions Your provider has recommended an appoint ment with [facility]. You may call [phone] to schedule your appointment. If you prefer, a registered dental assistant will contact you within the nh xt 3 business days to assist you in setting up this appointment. We suggest you call your health insurance company about your coverage and benefits for this appointme nt. CH REPAIRER Encounter Details Date Type Department Care Team Description 08/11/2018 Notes/Orders [facility] Breast Christinsen Rengel, Malign ant neoplasm [facility] GRIFFIN [place], [place] of overlapping sites [address] 640 [facility] [place] [address] [place] [address] female, estrogen [phone] (Wo rk) receptor positive (HRC) (Pr imary [...] Team Description 08/13/2022 Appointment Radiology Denise Aguirre, MARINE ANIMAL TRAINER, CELERY TIER [address] [place], [place] [address] (Wo rk) 08/13/2022 Appointment Hematology and Oncology Denise Aguirre, MARINE ANIMAL TRAINER, CELERY TIER [address] [place], [place] [address] (Wo rk) Scheduled Referrals [...] Primary documented in this encounter Care Teams Laborer Laboratory Relationship Specialty Start Date End Date Elyse Paredes MD PCP - General Family Practice 03/19/17 [address] [place], [place] [phone] documented as of this encounter
--- OUTSIDE RECORDS SUMMARY | 2022-07-09 14:37 | XMS_ITS | Encounter Summary ---
:1950 Author Organization [employer] Address [address] [place] [address] Care Team Providers Name Role Phone Elyse Paredes MD Primary Care Provider Reason for Visit Reason Comments Surgery Scheduling Encounter Details Date Type Department Care Team Description 08/10/2018 [facility] Sa ra Dora Bishop hypo dipper Scheduling Center [address] [place] [address] [place] [address] [phone] Social History Tobacco Use Types Packs/Day Years [...] plan. Natalia Bishop RN 08/10/2018, 2:42 PM THESIA ASSOCIATE documented in this encounter Plan of Treatment Upcoming Encounters Date Type Specialty Care Team Description 08/13/2022 Appointment Radiology Denise Aguirre, COMBINED RAIL OPERATOR, DEHYDROGENATION CONVERTER HELPER [address] [place], [place] [address] (Wo rk) 08/13/2022 Appointment Hematology and Oncology Denise Aguirre, COMBINED RAIL OPERATOR, DEHYDROGENATION CONVERTER HELPER [address] [place], [place] [address] (Tonio sorenson) documented as [...] on filedocumented in this encounter Care Teams Flash Oven Operator Relationship Specialty Start Date End Date Elyse Paredes MD PCP - General Family Practice 03/19/17 [address] [place] [address] documented as of this encounter
--- OUTSIDE RECORDS SUMMARY | 2022-07-09 14:37 | XMS_ITS | Encounter Summary ---
:1950 Author Organization [employer] Address [address] [place] [address] Care Team Providers Name Role Phone Elyse [...] Expiration Date Visits Requ ested Visits Authorized [id number] 1 1 Encounter Details Date Type Department Care Team Description 09/16/2018 Hospital Encounter RH Operating Room Maryellen Montes MD Malignant neoplasm [address] [place] [address] female, estrogen [phone] [place], [place] receptor posi tive, [address] unspecified site of [phone] breast (HRC) (Work) (Primary Dx) Social History [...] Comments Blood Pressure 134/53 09/16/2018 2:50 PM CUT AND COVER LINE WORKER Pulse 58 09/16/2018 2:50 PM CUT AND COVER LINE WORKER Temperature 36.3 ??C (97.3 ??F) 09/16/2018 2:50 PM CUT AND COVER LINE WORKER Respiratory Rate 18 09/16/2018 2:50 PM CUT AND COVER LINE WORKER Oxygen Saturation 97% 09/16/2018 2:50 PM CUT AND COVER LINE WORKER Inhaled Oxygen Concentration - - Weight 131.1 kg (289 lb) 09/16/2018 11:15 AM CUT AND COVER LINE WORKER PER PT Height 157.5 cm (5' 2) 09/16/2018 11:15 AM CUT AND COVER LINE WORKER Body Mass Index 52.86 09/16/2018 11:15 AM CUT AND COVER LINE WORKER documented in this encounter Discharge Instructions Discharge InstructionsKeaton Drake RN - 09/16/2018 2:30 PM CST Contact Information If it is after hours call the Careline at [phone]. [facility], Anesthesia Today you received General/Minor Sedation: Rest [...] new medications ?? Severe pain ?? Swelling AND COVER LINE WORKER documented in this encounter Medications at [...] diabetes mellitus type 2 without complications, unspecified long-term insulin use status rosuvastatin (CRESTOR) Take 1 [...] diabetes mellitus type 2 without complications, unspecified tank terminal gauger insulin use status metFORMIN XR Take 4 [...] diabetes mellitus type 2 without complications, unspecified tank terminal gauger insulin use status warfarin (COUMADIN) 2.5 TAKE [...] visit. Maryellen Montes MD 09/20/2018, 10:14 AM AND COVER LINE WORKER documented in this encounter Procedure Notes Maryellen [...] procedure.?? Maryellen Montes MD 09/16/2018, 1:56 PM AND COVER LINE WORKER Maryellen Montes MD - 09/16/2018 1:42 PM CST Brief Operative Note Date of Procedure: 09/16/2018 Surgeon: Maryellen Montes Residency Program Coordinator: none Pre-operative Diagnosis: Left breast cancer Post-operative [...] follow. Maryellen Montes MD 09/16/2018, 1:42 PM AND COVER LINE WORKER documented in this encounter Plan of Treatment Upcoming Encounters Date Type Specialty Care Team Description 08/13/2022 Appointment Radiology Denise Aguirre APRN, DEBURR OPERATOR [address] [place], [place] [address] (Wo rk) 08/13/2022 Appointment Hematology and Oncology Denise Aguirre APRN, DEBURR OPERATOR [address] [place], [place] [address] (Wo rk) documented as [...] 12:23 Malignant neoplasm WITH RADIOACTIVE SEED PM CUT AND COVER LINE WORKER of left breast in LOCALIZATION & female, estrogen SENTINEL LYMPH NODE receptor positive, BIOPSY unspecified site of breast (HRC) GLUCOSE, WHOLE BLOOD Routine 09/16/2018 11:17 Res ults for this POCT AM CUT AND COVER LINE WORKER procedure are i n the results section. SURGICAL PATH Routine 09/16/2018 6:00 AM Results for this CUT AND COVER LINE WORKER procedure are i n the results section. documented in this encounter Results Glucose, Whole Blood POC (09/16/2018 11:17 AM CUT AND COVER LINE WORKER) P athologist Signature Glucose, Whole 166 70 - 180 [facility] Blood mg/dl [facility] Comment: Point of Care Testing MD Notified Specimen Anatomical Collection Method Collection Time Receive d Time (Source) Location / / Volume Laterality 09/16/2018 11:17 09/16/2018 AM CUT AND COVER LINE WORKER 11:25 AM CUT AND COVER LINE WORKER Maryellen Montes MD LAB_1 Performing Organization Address City/State/ZIP Code Phon e Number [address] [address] Surgical Path (09/16/2018 6:00 AM CUT AND COVER LINE WORKER) [facility] gist Method Time Signature Histology (NOTE) [facility] Surgical Final Report HOSPITAL Patient Name: IRVIN HOFFMAN Taken: 09/16/2018 Received: 09/16/2018 Reported: 09/19/2018 Physician(s): MARYELLEN MONTES ? Final Pathologic Diagnosis A. Left breast, partial mastectomy: ?- Invasive ductal carcinoma, [place] grade 2 of 3, 1.2 cm ?- [...] below (please refer to case number [id number] ? for complete report). ER: High positive [place]: Positive HER-2/sally: Negative (score 0-1+) Pathologic stage [...] 16, 2018 Intraoperative Consultation: Performed Tissue Submission: Process Supervisor sections (including entire tumor) are submitted in [...] A6 and C7. 09/19/2018 Stacie Jha MD [facility] Department of Pathology [address] [place], [place] ??[address] Specimen Anatomical Collection Method Collection Time Receive d Time (Source) Location / / Volume Laterality Breast 09/16/2018 6:00 AM 9 1:10 CUT AND COVER LINE WORKER PM CUT AND COVER LINE WORKER LYMPH NODE BIOPSY 09/16/2018 6:00 AM 09/02 1:10 SPECIMEN / Unknown CUT AND COVER LINE WORKER PM CUT AND COVER LINE WORKER Breast 09/16/2018 6:00 AM 9 1:10 CUT AND COVER LINE WORKER PM CUT AND COVER LINE WORKER Maryellen Montes MD LAB_1 Performing Organization Address City/State/ZIP Code Phon e Number [address] [address] documented in this encounter Visit Diagnoses Diagnosis [...] 25 mL Left Breast Fold SENSORCAINE) 0.5% CUT AND COVER LINE WORKER injection ONCE PRN, Starting on Wed09/16/18 at [...] (SUBLIMAZE) injection 25-50 mcg 25-50 mcg, Intravenous, [id number], Pain, Starting on Wed09/16/18 at 1402, Until [...] lactated ringers infusion Started 09/16/2018 11:25 AM CUT AND COVER LINE WORKER 30 mL/hr Intravenous, at 30 mL/hr, CONTINUOUS, Starting on Wed09/16/18 at 1115, Pre-op lidocaine-epinephrine 1 Given 09/16/2018 1:19 PM 25 mL Left Breast Fold %-1:190357 injection CUT AND COVER LINE WORKER ONCE PRN, Starting on Wed09/16/18 at 1319, Until Wed09/16/18 at 1731, Intra-op methylene blue (PROVAY BLUE) Given 09/16/2018 2:50 PM CUT AND COVER LINE WORKER 1 mL Left Breast Fold 0.5% (5 [...] Recently Administered Medications Times are shown in CUT AND COVER LINE WORKER. Scheduled Medication Order 09/14/2018 09/15/2018 09/16/2018 ceFAZolin [...] RN)[id number] (Infused - Provider: Herlinda Ford APRN, CARTOGRAPHY TEACHER) Intravenous, at 30 mL/hr, CONTINUOUS, Starting Wed09/16/18 [...] (SUBLIMAZE) injection 25-50 mcg 25-50 mcg, Intravenous, [id number], Pain, Starting Wed09/16/18 at 1402, 25 mcg [...] sheyla l anesthesia, PACU (only) lidocaine-epinephrine 1 %-1:896765 injection 1319 (Given - Provider: Maryellen Montes [...]
Post-op documented in this encounter Care Teams Watcher Automat Long Goods Relationship Specialty Start Date End Date Elyse Paredes MD PCP - General Family Practice 03/19/17 [address] [place] [address] documented as of this encounter
--- OUTSIDE RECORDS SUMMARY | 2022-07-09 14:37 | XMS_ITS | Encounter Summary ---
:1950 Author Organization [employer] Address [address] [place] [address] Care Team Providers Name Role Phone Elyse Paredes MD Primary Care Provider Reason for Visit Reason Onset Date Comments Refill 09/15/2018 [place]all Encounter Details Date Type Department Care Team Description 09/15/2018 Refill Specialty Center 401 Fatmata Maddox MD Refill (Basaglar) Endocrinology Clinic 111 [facility] [address] [place] [address] [place] [address] [phone] (Wo rk) Social History Tobacco Use Types [...] Completed per Physician Order. Yosi Greco RN SIT SURVEY WORKER Jacquelyn Matos RN - 09/15/2018 3:00 PM CST Last seen by Dr. Salas. Routing to her care team to address. Jacquelyn Matos RN 09/15/2018, 3:00 PM SIT SURVEY WORKER Interface, Out StoreDot Prov Query - 09/15/2018 1:47 PM CST [...] HBA1C: 8.2 % on 08/09/2018 Powered by [employer], Reference: [id number], 09/15/2018 1:47:40 PM SOFIYA, Pool: ENDO REFILL PAYTON ([id number]) Afsaneh Little - 09/15/2018 1:46 PM CST Last refilled: [id number] Dispense amount of last refill: 30 SIT SURVEY WORKER documented in this encounter Plan of Treatment Upcoming Encounters Date Type Specialty Care Team Description 08/13/2022 Appointment Radiology Denise Aguirre, SUPERVISOR ELECTROLYTIC TINNING, SUPPLY SPECIALIST [address] [place], [place] [address] (Wo rk) 08/13/2022 Appointment Hematology and Oncology Denise Aguirre, SUPERVISOR ELECTROLYTIC TINNING, SUPPLY SPECIALIST [address] [place], [place] [address] (Wo rk) documented as [...] insulin documented in this encounter Care Teams Jewel Hole Cornerer Relationship Specialty Start Date End Date Elyse Paredes MD PCP - General Family Practice 03/19/17 [address] [place] [address] documented as of this encounter
--- OUTSIDE RECORDS SUMMARY | 2022-07-09 14:37 | XMS_ITS | Encounter Summary ---
:1950 Author Organization [employer] Address [address] [place] [address] Care Team Providers Name Role Phone Elyse Paredes MD Primary Care Provider Reason for Visit Reason Onset Date Comments Refill 09/19/2018 HUMALOG Encounter Details Date Type Department Care Team Description 09/19/2018 Refill Specialty Center [address] Maddox MD Refill (HUMALOG) Endocrinology Clinic 111 [facility] [address] [place] [address] [place] [address] [phone] (Wo rk) Social History Tobacco Use Types [...] Completed per Physician Order. Yosi Greco RN ER POUND NET OR TRAP Interface, Out Surescripts Prov Query - 09/19/2018 [...] HBA1C: 8.2 % on 08/09/2018 Powered by [employer]centric, Reference: [id number], 09/19/2018 1:55:03 PM FISHER POUND NET OR TRAP, Pool: TAN AVILEZ CARE TEAM ([id number]) ER POUND NET OR TRAP Afsaneh Osborne - 09/19/2018 12:24 PM CST Last refilled: [id number] Dispense amount of last refill: 30 ER POUND NET OR TRAP documented in this encounter Plan of Treatment Upcoming Encounters Date Type Specialty Care Team Description 08/13/2022 Appointment Radiology Denise Aguirre, PILE OPERATOR, PEPPER PICKER [address] [place], [place] [address] (Wo rk) 08/13/2022 Appointment Hematology and Oncology Denise Aguirre, GRIFFIN, PEPPER PICKER [address] [place], [place] [address] (Wo rk) documented as [...] Primary documented in this encounter Care Teams Trucker Relationship Specialty Start Date End Date Elyse Paredes MD PCP - General Family Practice 03/19/17 [address] [place] [address] documented as of this encounter
--- OUTSIDE RECORDS SUMMARY | 2022-07-09 14:37 | XMS_ITS | Encounter Summary ---
:1950 Author Organization [employer] Address [address] [place] [address] Care Team Providers Name Role Phone Elyse [...] Expiration Date Visits Requ ested Visits Authorized [id number] 1 1 Encounter Details Date Type Department Care Team Description 09/16/2018 Anesthesia Event RH Operating Room Andrew Bo MD [address] [place] [address] 640 [facility] [address] [place] [address] [place] [address] Anesthesia Record Procedure Summary Procedure Name Responsible [...] report Electronically signed by Joelle Ford APRN, CARPET INSTALLER HELPER [id number] An Stop Care transferred . Name Total [...] Bo MD - 09/16/2018 2:11 PM CST [facility] Anesthesia Post-op Note Patient: Marci Diaz Post-Op [...] by: Andrew Bo MD 09/16/2018 2:11 PM TRONICS SCALE TESTER Anesthesia Preprocedure Evaluation - Andrew Bo MD - 09/16/2018 11:17 AM CST [facility] Anesthesia Pre-op Evaluation Procedure: Procedure(s): LEFT PARTIAL [...] Diabetes Education ??? 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 Malignant neoplasm [...] by: Andrew Bo MD 09/16/2018 11:17 AM TRONICS SCALE TESTER documented in this encounter Plan of Treatment Upcoming Encounters Date Type Specialty Care Team Description 08/13/2022 Appointment Radiology Denise Aguirre, MANAGER DIGITAL AD OPERATIONS, EXECUTIVE RECRUITER [address] [place] [address] (Tonio sorenson) 08/13/2022 Appointment Hematology and Oncology Denise Aguirre, MANAGER DIGITAL AD OPERATIONS, EXECUTIVE RECRUITER [address] [place] [address] (Tonio sorenson) documented as of this [...] g in sodium Started 09/16/2018 12:36 PM ELECTRONICS SCALE TESTER 1 g chloride 0.9 % 50 mL IVPB 1 g, Intravenous, Administer over 30 Minutes, ONCE (NON-SCHEDULED), Starting on Wed09/16/18 at 1056, For 1 dose, For patient weight greater than or equal to 120kg , PRE-OP ANTIBIOTIC, Total dose equals 3 grams., Pre-op ceFAZolin (ANCEF) 2 g in dextrose 50 mL IVPB Given 09/16/2018 12:36 PM ELECTRONICS SCALE TESTER 2 g 2 g, Intravenous, Administer over 30 Minutes, ONCE (NON-SCHEDULED), Starting on Wed09/16/18 at 1050, For 1 dose, For patient weight greater than or equal to 120kg , PRE-OP ANTIBIOTIC, Total dose equals 3 grams., Pre-op lidocaine 2% PF (XYLOCAINE) injection Given 09/16/2018 12:37 PM ELECTRONICS SCALE TESTER 40 mg Starting on Wed09/16/18 at 1237, Until Wed09/16/18 at 1353 midazolam (VERSED) injection Given 09/16/2018 12:45 PM ELECTRONICS SCALE TESTER 1 mg Starting on Wed09/16/18 at 1229, Until Wed09/16/18 at 1353 Given 09/16/2018 12:29 PM ELECTRONICS SCALE TESTER 1 mg ondansetron (ZOFRAN) injection Given 09/16/2018 1:36 PM ELECTRONICS SCALE TESTER 4 mg Starting on Wed09/16/18 at 1336, Until Wed09/16/18 at 1353 propofol (aka diPRIvan) Rate/Dose 09/16/2018 1:36 50 mcg/kg/min 39.3 3 injection Change PM ELECTRONICS SCALE TESTER mL/hr Intravenous, Starting on Wed09/16/18 at 1237 Started 09/16/2018 12:37 PM ELECTRONICS SCALE TESTER 100 mcg/kg/min 78.66 mL/hr documented in this encounter Care Teams Training Systems Officer Relationship Specialty Start Date End Date Elyse Paredes MD PCP - General Family Practice 03/19/17 [address] [place] [address] documented as of this encounter
--- OUTSIDE RECORDS SUMMARY | 2022-07-09 14:37 | XMS_ITS | Encounter Summary ---
:1950 Author Organization [employer] Address [address] [place] [address] Care Team Providers Name Role Phone Elyse [...] Team Description 08/13/2022 Appointment Radiology Denise Aguirre, SENIOR CARE SPECIALIST, 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 TRENCH DIGGER [address] [place], [place] [address] (Wo rk) 08/13/2022 Appointment Hematology and Oncology Denise Aguirre APRN, 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 TRENCH DIGGER [address] [place], [place] [address] (Wo rk) documented as [...] on filedocumented in this encounter Care Teams Mail Processing Clerk Relationship Specialty Start Date End Date Elyse Paredes MD PCP - General Family Practice 03/19/17 [address] [place] [address] documented as of this encounter
--- OUTSIDE RECORDS SUMMARY | 2022-07-09 14:37 | XMS_ITS | Encounter Summary ---
:1950 Author Organization [employer] Address [address] [place] [address] Care Team Providers Name Role Phone Elyse [...] Team Description 08/13/2022 Appointment Radiology Denise Aguirre, MATERIAL ENGINEER, BELT WORKER [address] [place], [place] [address] (Wo rk) 08/13/2022 Appointment Hematology and Oncology Denise Aguirre APRN, BELT WORKER [address] [place], [place] [address] (Wo rk) documented as [...] filedocumented in this encounter Care Teams Manager Credit Collections Relationship Specialty Start Date End Date Elyse Paredes MD PCP - General Family Practice 03/19/17 1540 [place] [address] documented as of this encounter
--- OUTSIDE RECORDS SUMMARY | 2022-07-09 14:37 | XMS_ITS | Encounter Summary ---
:1950 Author Organization [employer] Address [address] [place] [address] Care Team Providers Name Role Phone Elyse [...] [address] Coronary artery disease involving new koliganek coronary artery of new kol[place]k heart without angina pectoris [place], [place] [id number] [place] [address] [facility] Social History Tobacco Use Types [...] Comments Blood Pressure 144/64 08/09/2018 1:18 PM GLASS DECORATOR Pulse 61 08/09/2018 1:18 PM GLASS DECORATOR Temperature - - Respiratory Rate - - Oxygen Saturation - - Inhaled Oxygen Concentration - - Weight 130.6 kg (288 lb) 08/09/2018 1:18 PM GLASS DECORATOR Height - - Body Mass Index 53.1 08/05/2018 10:58 AM GLASS DECORATOR documented in this encounter Patient Instructions Patient [...] rtc in 3 mths Manasa Salas MD S DECORATOR documented in this encounter Progress Notes Emily Zamora RN - 08/09/2018 12:45 PM CST Images from the original note were not included. S DECORATOR Manasa Salas MD - 08/09/2018 12:45 PM [...] of 2017 she had been seen at [facility] transfered Her diabetes care to in 2016 [...] and her weight ALLERGIES : reviewed in [facility] Patient Active Problem List Diagnosis ??? Uncontrolled [...] decade prior Recent diagnosis of breast cancer [facility] Past Surgical History: Procedure Laterality Date ??? AORTIC VALVE REPLACEMENT 07/06/2017 ??? 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, reports that she quit smoking about 39 [...] care Manasa Salas MD 08/09/2018, 1:37 PM S DECORATOR documented in this encounter Nursing Notes Donna [...] (!) 144/64 08/05/18 128/64 01/14/18 (!) 141/83 S DECORATOR documented in this encounter Plan of Treatment Upcoming Encounters Date Type Specialty Care Team Description 08/13/2022 Appointment Radiology Denise Aguirre APRN, HUMAN CAPITAL MANAGER [address] [place], [place] [address] (Wo rk) 08/13/2022 Appointment Hematology and Oncology Denise Aguirre APRN, HUMAN CAPITAL MANAGER [address] [place], [place] [address] (Wo rk) documented as [...] Uncontrolled type 2 Results for this CARE GLASS DECORATOR diabetes mellitus, procedure are in with long-term the results current use of section. insulin (HRC) documented in this encounter Results Microalb / Creat Ratio (11/21/2018 1:58 PM CDT) [facility] Method Time Signature Albumin, 7.2 mg/L 11/21/2018 [facility] Urine, Random 5:34 PM CDT CENTRAL LAB Creatinine, 118 >20 mg/dL 11/21/2018 [facility] Urine, Random 5:34 PM CDT CENTRAL LAB Albumin/Creati 6 <30 mg/g 11/21/2018 [facility] nine Ratio, 5:34 PM CDT CENTRAL LAB Urine, Random Specimen Anatomical Collection Method Collection Time Receive d Time (Source) Location / / Volume Laterality Urine,random Non-blood 11/21/2018 1:58 PM 9 1:58 Collection / CDT PM CDT Unknown Manasa Salas MD LAB_1 Performing Organization Address City/State/ZIP Code Phon e Number [employer] CENTRAL LAB [address] [address] (ABNORMAL) HgbA1c (11/21/2018 12:56 PM CDT) [facility] Method Time Signature Hemoglobin A1C 8.3 (H) <=5.6 % 11/21/2018 [facility] 6:37 PM CDT CENTRAL LAB Specimen Anatomical Collection Method Collection Time Receive d Time (Source) Location / / Volume Laterality Blood 11/21/2018 12:56 11/21/2018 PM CDT 12:56 PM CDT Narrative [facility] - 11/21/2018 6:37 PM CDT For patients not previously diagnosed with diabetes: 5.7-6.4%: Increased risk for diabetes 6.5% and greater: Diagnostic for diabete s For patients diagnosed with diabetes: <8.0%: Goal of therapy for ages 18-75 Clinicians may recommend a higher or low er goal for specific individuals. Manasa Salas MD LAB_1 Performing Organization Address City/State/ZIP Code Phon e Number [facility] [address] [address] (ABNORMAL) Creatinine / GFR (11/21/2018 12:56 PM CDT) [facility] Method Time Signature Creatinine 1.31 (H) 0.55 - 11/21/2018 [facility] 1.02 5:27 PM CDT CENTRAL LAB mg/dL GFR, Estimated 42 (L) >60 11/21/2018 [facility] mL/min/1. 5:27 PM CDT CENTRAL LAB 73m2 GFR, Est If 49 (L) >60 11/21/2018 [facility] mL/min/1. 5:27 PM CDT CENTRAL LAB Montenegrin 73m2 Specimen Anatomical Collection Method Collection Time Receive d Time (Source) Location / / Volume Laterality Blood 11/21/2018 12:56 11/21/2018 PM CDT 12:56 PM CDT Narrative [facility] - 11/21/2018 5:27 PM CDT The National Kidney Disease Education Pr ogram suggests measuring Cystatin C in patients with eGFRcrea of 45 to 59 ml/mi n/1.73^2 who do not have other markers of kidney damage (i.e. elevated urine Album in/Creatinine Ratio or a prior Cystatin C confirming the presence of chronic kidne y disease). Manasa Salas MD LAB_1 Performing Organization Address [facility]/ZIP [facility] Phon e Number [facility] C[facility]AL LAB [address] [address] LDL Direct (11/21/2018 12:56 PM CDT) athologist Signature LDL, Direct 94 <=130 11/21/2018 [facility] mg/dL 5:27 PM CDT CENTRAL LAB Specimen Anatomical Collection Method Collection Time Receive d Time (Source) Location / / Volume Laterality Blood 11/21/2018 12:56 11/21/2018 PM CDT 12:56 PM CDT Manasa Salas MD LAB_1 Performing Organization Address [facility] Phon e Number [facility] CENTRAL LAB [address] [address] (ABNORMAL) Hgb A1c, Point of Care (08/09/2018 1:24 PM GLASS DECORATOR) [facility] gist Method Time Signature Point of Care 8.2 (H) 4.3 - 5.6 [facility] A[facility]c % [facility] Comment: This Rapid A1c test is designed for lindsey toring patients with an established diagnosis o f diabetes mellitus. This rapid method is not suitable to establish the initial diagno sis of diabetes mellitus. Performed using Point of Care Instrument [facility]. Specimen Anatomical Collection Method Collection Time Receive d Time (Source) Location / / Volume Laterality 08/09/2018 1:24 PM 9 4:47 GLASS DECORATOR PM GLASS DECORATOR Manasa Salas MD LAB_1 Performing Organization Address City/[facility]/ZIP Code Phon e Number [facility] [phone] documented in this encounter Visit Diagnoses Diagnosis Uncontrolled type 2 diabetes mellitus, w ith long-term current use of insulin - Primary Obesity, morbid, BMI 50 or higher (HRC) Coronary artery disease involving new kolig[place]k coronary artery of new kol[place]k heart without angina pectoris (HRC) documented in this encounter Care Teams Dock Supervisor Relationship Specialty Start Date End Date Elyse Paredes MD PCP - General Family Practice 03/19/17 [address] [place], [place] [id number] documented as of this encounter
--- OUTSIDE RECORDS SUMMARY | 2022-07-09 14:37 | XMS_ITS | Encounter Summary ---
:1950 Author Organization [employer] Address [address], [place] [address] Care Team Providers Name Role Phone Elyse Paredes MD Primary Care Provider Encounter Details Date Type Department Care Team Description 09/16/2018 Orders Only External to External, [place] [address] Social History Tobacco Use Types Packs/Day Years [...] 08/13/2022 Appointment Radiology Denise Aguirre APRN, SENIOR BOOKKEEPER [address] [place], [place] [address] (Wo rk) 08/13/2022 Appointment Hematology and Oncology Denise Aguirre APRN, SENIOR BOOKKEEPER [address] [place], [place] [address] (Wo rk) [...] OP 09/16/2018 12:00 AM Results for this ASIC DESIGN ENGINEER procedure are i n the results section . documented in this encounter Results LAB OP (09/16/2018 12:00 AM ASIC DESIGN ENGINEER) Specimen (Source) Anatomical Location Collection Method / Collectio n Time Received Time / Laterality Volume 09/16/2018 Narrative This result has an attachment that is no t available. Provider External DUMMY/OTHER/AR documented in this encounter Visit Diagnoses Not on filedocumented in this encounter Care Teams Box Builder Relationship Specialty Start Date End Date Elyse Paredes MD PCP - General Family Practice 03/19/17 [address] [place] [address] documented as of this encounter
--- OUTSIDE RECORDS SUMMARY | 2022-07-09 14:37 | XMS_ITS | Encounter Summary ---
:1950 Author Organization [employer] Address [address] [place] [address] Care Team Providers Name Role Phone Elyse [...] Expiration Date Visits Requ ested Visits Authorized [id number] 1 1 Encounter Details Date Type Department Care Team Description 09/16/2018 Ancillary Procedure [facility] Maryellen Beaulieu MD Malignant neoplasm [facility] [address] of left breast in [address] [facility] female, [place] [address] [place], [place] receptor positive, [address] unspecified site of [phone] breast (HRC) (Work) Social History Tobacco Use [...] 08/13/2022 Appointment Radiology Denise Aguirre APRN, INSPECTOR CLIP ON SUNGLASSES [address] [place], [place] [address] (Wo rk) 08/13/2022 Appointment Hematology and Oncology Denise Aguirre APRN, INSPECTOR CLIP ON SUNGLASSES [address] [place], [place] [address] (Wo rk) documented as [...] AM Malignant neoplasm of Results for this PHOTO MANAGER left breast in procedure are in female, estrogen the results receptor positive, section. unspecified site of breast (HRC) documented in this encounter Results MM Seed Specimen (09/16/2018 9:32 AM PHOTO MANAGER) Anatomical Region Laterality Modality Breast Mammography Specimen (Source) Anatomical Location Collection Method / Collectio n Time Received Time / Laterality Volume Narrative 09/16/2018 1:34 PM PHOTO MANAGER Indication: Breast carcinoma Specimen mammogram demonstrates the [...] (HRC) documented in this encounter Care Teams Personal Service Representative Relationship Specialty Start Date End Date Elyse Paredes MD PCP - General Family Practice 03/19/17 [address] [place] [address] documented as of this encounter
--- OUTSIDE RECORDS SUMMARY | 2022-07-09 14:37 | XMS_ITS | Encounter Summary ---
:1950 Author Organization [employer] Address [address] [place] [address] Care Team Providers Name Role Phone Elyse [...] LYMPH NODE BIOPSY [address] [place] [address] Referral ID Status Reason Start Date Expiration Date Visits V isits Requested Authorized [id number] Incomplete 08/10/2018 11/09/2019 1 1 TOP SUPPORT CONSULTANT Reason for Visit Reason Comments Consult, New Patient 07/28/18 left IDC/DCIS Encounter Details Date Type Department Care Team Description 08/05/2018 Office Visit [facility] Maryellen Montes MD Malignant neoplasm of Center [address] left breast in female, [address] [facility] [place] [address] [place], [place] positive, unspecified [phone] site of breast (HRC) [phone] (Primary Dx) (Work) Social History Tobacco Use [...] Comments Blood Pressure 128/64 08/05/2018 10:58 AM DESKTOP SUPPORT CONSULTANT Pulse 86 08/05/2018 10:58 AM DESKTOP SUPPORT CONSULTANT Temperature - - Respiratory Rate - - Oxygen Saturation - - Inhaled Oxygen Concentration - - Weight 131.1 kg (289 lb) 08/05/2018 10:58 AM DESKTOP SUPPORT CONSULTANT Height 156.8 cm (5' 1.75) 08/05/2018 10:58 AM DESKTOP SUPPORT CONSULTANT Body Mass Index 53.29 08/05/2018 10:58 AM DESKTOP SUPPORT CONSULTANT documented in this encounter Patient Instructions Patient [...] available to assist you. Please call Kirsty [phone] or Ladi Fisher at [phone] for guidance. They are available between 8:00 - 4:00 M-F . Please call and let us know when you make a decision about your plan for care. We are happy to care for you here at [facility]. Thank you for allowing us to care for you today. MD Kirsty Glasgow APRN, INSURANCE CASE MANAGER TOP SUPPORT CONSULTANT documented in this encounter Progress Notes Maryellen Montes MD - 08/05/2018 10:45 AM DESKTOP SUPPORT CONSULTANT Addended by: MARYELLEN MONTES on: 08/10/2018 09:07 PM Modules accepted: Orders, SmartSet TOP SUPPORT CONSULTANT Maryellen Montes MD - 08/05/2018 10:45 AM [...] mg by mouth. Note (03/19/2017): Received from: [facility] Received Sig: Take [...] 1/2 tab daily Note (03/19/2017): Received from: [facility] Disp: Rfl: TRULICITY 1.5 MG/0.5ML injeciton [...] has most of her care in the [facility] system. She is seeing Dr. Toribio on Wednesday. Over 45 minutes were spent with the patient and over 50% was spent counseling the patient on her treatment options for her newly diagnosed breast cancer. Maryellen Montes MD 08/05/2018, 9:08 PM CC: Elyse Paredes MD TOP SUPPORT CONSULTANT Leena Callaway RN - 08/05/2018 10:45 AM [...] XRT: no Previous genetic testing: no Ashkenazi Mormon: no Leena Callaway RN 08/05/2018, 11:57 AM TOP SUPPORT CONSULTANT documented in this encounter Plan of Treatment Upcoming Encounters Date Type Specialty Care Team Description 08/13/2022 Appointment Radiology Denise Aguirre HADOOP ADMINISTRATOR, INSURANCE CASE MANAGER [address] [place], [place] [address] (Wo rk) 08/13/2022 Appointment Hematology and Oncology Denise Aguirre APRN, INSURANCE CASE MANAGER [address] [place], [place] [address] (Wo rk) documented as [...] Primary documented in this encounter Care Teams Winchman/Crane Operator Relationship Specialty Start Date End Date Elyse Paredes MD PCP - General Family Practice 03/19/17 [address] [place] [address] documented as of this encounter
--- OUTSIDE RECORDS SUMMARY | 2022-07-09 14:37 | XMS_ITS | Encounter Summary ---
:1950 Author Organization [employer] Address [address] [place] [address] Care Team Providers Name Role Phone Elyse Paredes MD Primary Care Provider Reason for Visit Reason Onset Date Comments ERRONEOUS ENTRY 09/15/2018 TRULICITY Encounter Details Date Type Department Care Team Description 09/15/2018 Refill Specialty Center 401 Miya Shin MD ERRONEOUS ENTRY Endocrinology Clinic [facility] [address] [place] [address] [place] [address] [phone] (Wo rk) Social History Tobacco Use Types [...] Completed per Physician Order. Yosi Greco RN [facility] COORDINATOR Jacquelyn Matos RN - 09/15/2018 3:01 PM CST Last seen by Dr. Salas. Routing to her care team to address. Jacquelyn Matos RN 09/15/2018, 3:01 PM [facility] COORDINATOR Interface, Out Incisive Surgical Prov Query - 09/15/2018 1:05 PM CST [...] HBA1C: 8.2 % on 08/09/2018 Powered by [employer], Reference: [id number], 09/15/2018 1:05:11 PM Carlos ARRIAZA: ENDO REFILL PAYTON ([id number]) Afsaneh Little - 09/15/2018 1:04 PM CST Last refilled: [id number] Dispense amount of last refill: 6 [facility] COORDINATOR documented in this encounter Plan of Treatment Upcoming Encounters Date Type Specialty Care Team Description 08/13/2022 Appointment Radiology Denise Aguirre, 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 CONTROLLER, INSPECTOR PRECISION ASSEMBLY [address] [place], [place] [address] (Wo rk) 08/13/2022 Appointment Hematology and Oncology Denise Aguirre, 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 CONTROLLER, INSPECTOR PRECISION ASSEMBLY [address] [place], [place] [address] (Wo rk) documented as [...] insulin documented in this encounter Care Teams Drainman Relationship Specialty Start Date End Date Elyse Paredes MD PCP - General Family Practice 03/19/[address] [address] documented as of this encounter
--- OUTSIDE RECORDS SUMMARY | 2022-07-09 14:38 | XMS_ITS | Encounter Summary ---
:1950 Author Organization [employer] Address [address] [place] [address] Care Team Providers Name Role Phone Elyse Paredes MD Primary Care Provider Reason for Visit Reason Onset Date Comments Refill 04/27/2018 90 day supply/ACCU-C HEK GERALD PLUS test strip Encounter Details Date Type Department Care Team Description 04/27/2018 Refill Specialty Center 401 Miya Shin MD Refill (90 day Endocrinology Clinic [address] [place] supply/ACCU-CHEK [address] [place] [address] [place] [address] strip) [phone] (Wo rk) Social History Tobacco Use Types [...] Team Description 08/13/2022 Appointment Radiology Denise Aguirre, MORTGAGE COUNSELOR, IMPROVEMENT MANAGER [address] [place], [place] [address] (Wo rk) 08/13/2022 Appointment Hematology and Oncology Denise Aguirre, MORTGAGE COUNSELOR, IMPROVEMENT MANAGER [address] [place], [place] [address] (Wo rk) documented as [...] insulin documented in this encounter Care Teams Warehouse Material Handler Relationship Specialty Start Date End Date Elyse Paredes MD PCP - General Family Practice 03/19/17 [address] [place] [address] documented as of this encounter
--- OUTSIDE RECORDS SUMMARY | 2022-07-09 14:38 | XMS_ITS | Encounter Summary ---
:1950 Author Organization [employer] Address [address] [place] [address] Care Team Providers Name Role Phone Elyse Paredes MD Primary Care Provider Reason for Visit Reason Onset Date Comments Refill 04/26/2018 basaglar kwikpen/acc u-chek plus test strips Encounter Details Date Type Department Care Team Description 04/26/2018 Refill Specialty Center 401 Fatmata Maddox MD Refill (basaglwy Endocrinology Clinic [address] [place] kwikpen/accu-chek [address] plus test strips) [place] [address] [place] [address] [phone] (Wo rk) Social History Tobacco Use Types [...] amount of last refill: 250 Eld[address] Espinal Interface, Out Surescripts Prov Query - [...] HBA1C: 8.7 % on 01/14/2018 Powered by [employer], Reference: [id number], 04/26/2018 10:34:23 AM CDT, Pool: MARY YANEZ RN ([id number]) Interface, Out Roadhop Prov Query - 04/26/2018 10:34 AM CDT [...] Description 08/13/2022 Appointment Radiology Denise Aguirre APRN, HOSIERY BAGGER [address] [place], [place] [address] (Wo rk) 08/13/2022 Appointment Hematology and Oncology Denise Aguirre APRN, HOSIERY BAGGER [address] [place], [place] [address] (Wo rk) documented as [...] insulin documented in this encounter Care Teams Director Consumer Affairs Relationship Specialty Start Date End Date Elyse Paredes MD PCP - General Family Practice 03/19/17 1540 [place] [address] documented as of this encounter
--- OUTSIDE RECORDS SUMMARY | 2022-07-09 14:38 | XMS_ITS | Encounter Summary ---
:1950 Author Organization [employer] Address [address] [place] [address] Care Team Providers Name Role Phone Elyse Paredes MD Primary Care Provider Reason for Visit Reason Comments Refill TRULICITY 1.5 MG/0.5ML injec iton pen [Pharmacy Med Name: TRULICITY 1.5MG/0.5ML SDP 4X0.5ML] Encounter Details Date Type Department Care Team Description 07/30/2018 Refill Specialty Center 401 Gabrielle Morris, Refill (TRULICITY 1.5 Endocrinology Clinic SPACE OPERATIONS, DNP MG/0.5ML injeciton pen [address] [Pharmacy Med Name: [place] [address] [place], [place] TRULICITY 1.5MG/0.5ML [phone] [address] SDP 4X0.5ML]) Social History Tobacco Use Types [...] orders. Jacquelyn Matos RN 10:29 AM 08/01/2018 MORNING Interface, Out [employer] Prov Query - 07/30/2018 [...] HBA1C: 8.7 % on 01/14/2018 Powered by [employer], Reference: [id number], 07/30/2018 3:49:42 PM COOK MORNING, Pool: JORDAN OSEI CARE TEAM ([id number]) MORNING Interface, Out [employer] Prov Query - 07/30/2018 3:49 PM CST The following lab order(s) may be associated with the Result Note below: HGB A1C,POINT OF CARE Notes Recorded by Jacquelyn Matos RN on 01/14/2018 at 5:14 PM Discussed at office visit on 01/14/2018 Jacquelyn Matos RN 01/14/2018, 5:14 PM MORNING documented in this encounter Plan of Treatment Upcoming Encounters Date Type Specialty Care Team Description 08/13/2022 Appointment Radiology Denise Agurire, SPACE OPERATIONS, TANNER ROTARY DRUM CONTINUOUS PROCESS [address] [place], [place] [address] (Wo rk) 08/13/2022 Appointment Hematology and Oncology Denise Aguirre APRN, TANNER ROTARY DRUM CONTINUOUS PROCESS [address] [place], [place] [address] (Wo rk) [...] insulin documented in this encounter Care Teams Dynamiter Relationship Specialty Start Date End Date Elyse Paredes MD PCP - General Family Practice 03/19/17 [address] [place] [address] documented as of this encounter
--- OUTSIDE RECORDS SUMMARY | 2022-07-09 14:38 | XMS_ITS | Encounter Summary ---
:1950 Author Organization [facility] Address [address] [place] [address] Care Team Providers Name Role Phone Elyse Paredes MD Primary Care Provider Encounter Details Date Type Department Care Team Description 10/13/2017 Telephone Specialty Center 401 Miya Shin MD Endocrinology Clinic 111 [facility] [address] [place] [address] [place] [address] [phone] (Wo rk) Social History Tobacco Use Types [...] CDT Lab work received will place [facility]. Gabrielle Alvarez - 10/13/2017 3:30 PM CDT [facility] will be faxing over lab work prior to 11/03/17 appointment with provider. Gabrielle Alvarez documented in this encounter Plan of Treatment Upcoming Encounters Date Type Specialty Care Team Description 08/13/2022 Appointment Radiology Denise Aguirre, RN LACTATION, CUSTOMER SALES DISTRIBUTOR [address] [place], [place] [address] (Wo rk) 08/13/2022 Appointment Hematology and Oncology Denise Aguirre APRN, CUSTOMER SALES DISTRIBUTOR [address] [place], [place] [address] (Wo rk) documented as [...] on filedocumented in this encounter Care Teams Mortarman Relationship Specialty Start Date End Date Elyse Paredes MD PCP - General Family Practice 03/19/17 [address] [place] [address] documented as of this encounter
--- OUTSIDE RECORDS SUMMARY | 2022-07-09 14:38 | XMS_ITS | Encounter Summary ---
:1950 Author Organization [employer] Address [address] [place] [address] Care Team Providers Name Role Phone Elyse Paredes MD Primary Care Provider Reason for Visit Reason Comments FOLLOW-UP,DIABETES Encounter Details Date Type Department Care Team Description 06/17/2017 Office Visit Specialty Center 401 Gabrielle Morris, Uncontrolled type 2 diabetes mellitus without complication, with long-term current use of insulin (HRC) (Primary Dx); Endocrinology Clinic FLUSH TESTER, DNP Essential hypertension; [address] Dyslipidemia, goal LDL below 100 [place] [address] [place], [place] [phone] [address] Social History Tobacco Use Types Packs/Day Years [...] Comments Blood Pressure 118/83 06/17/2017 3:10 PM DISTILLERY WORKER Pulse 67 06/17/2017 3:10 PM DISTILLERY WORKER Temperature - - Respiratory Rate - - Oxygen Saturation - - Inhaled Oxygen Concentration - - Weight 127.9 kg (282 lb) 06/17/2017 3:10 PM DISTILLERY WORKER Height 157.5 cm (5' 2) 06/17/2017 3:10 PM DISTILLERY WORKER Body Mass Index 51.58 06/17/2017 3:10 PM DISTILLERY WORKER documented in this encounter Patient Instructions Patient InstructionsLaGabrielle kaiser, GRIFFIN, DIRECTOR OF BUSINESS DEVELOPMENT - 06/17/2017 2:50 PM DISTILLERY WORKER Plan: Medications: -Start Metformin Extended Release; often [...] protein -Keep your scheduled appointment with the Radio Director at your primary clinic Exercise: -Work on [...] you for choosing the Endocrinology Clinic at [facility]. Treating provider: Gabrielle Morris APRN, FNP-C, Endocrinology [...] convenient communication on your schedule, log-on to [employer], click on the ???Get Care?? tab on the top, scroll down to the bottom of the page and click ? Patient email & E. visit >? . Follow the prompts, and we will respond within one business day. Mail order pharmacy: [phone] or For lab only appointments call: [phone] TEST RESULTS: We will communicate your test [...] business days, please call our clinic at [phone]. ILLERY WORKER documented in this encounter Progress Notes Donna Mcdermott RN - 06/18/2017 9:25 AM CST Discussed during office visit. Donna Mcdermott RN ILLERY WORKER Gabrielle Morris APRN, CNP - 06/17/2017 2:50 [...] has since passed ?? 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 Going to [place] 2017 ?? Scheduled for valve replacement in 2 weeks at [facility] ROS: ?? No vision changes, chest [...] mellitus, with long-term current use of insulin ([facility]) 03/19/2017 : Social History Social History ??? [...] 0.30 - 4.50 uIU/ml 2.72 Lab from [facility]: Assessment/Plan: ICD-10-CM 1. Uncontrolled type 2 diabetes [...] protein -Keep your scheduled appointment with the Radio Director at your primary clinic Exercise: -Work on [...] you can schedule with Gabrielle Morris APRN, HEARING AID TECHNICIAN-C -Reviewed the concept of diabetes self-management, stressing [...] agrees with and verbalizes understandingof plan. Gabrielle Morris APRN, HEARING AID TECHNICIAN-C I spent >30 minutes with patient; over 50% was spent discussing issues as outlined above and the Plan of Care in detail. ILLERY WORKER documented in this encounter Nursing Notes Mariah [...] never used smokeless tobacco. Mariah Rodrigues LPN ILLERY WORKER documented in this encounter Plan of Treatment Upcoming Encounters Date Type Specialty Care Team Description 08/13/2022 Appointment Radiology Denise Aguirre APRN, DIRECTOR OF BUSINESS DEVELOPMENT [address] [place], [place] [address] (Wo rk) 08/13/2022 Appointment Hematology and Oncology Denise Aguirre APRN, DIRECTOR OF BUSINESS DEVELOPMENT [address] [place], [place] [address] (Wo rk) documented as of this encounter Procedures Procedure Name Priority Date/Time Associated Diagnosis Comme nts HGB A1C,POINT OF Routine 06/17/2017 4:28 PM Uncontrolled type 2 Results for this CARE DISTILLERY WORKER diabetes mellitus procedure are in without complication, the re sults with long-term section. current use of insulin (HRC) documented in this encounter Results (ABNORMAL) Hgb A1c, Point of Care (06/17/2017 4:28 PM DISTILLERY WORKER) [facility] gist Method Time Signature Point of [...] Volume Laterality 06/17/2017 4:28 PM 7 5:10 DISTILLERY WORKER PM DISTILLERY WORKER Gabrielle Morris FLUSH TESTER, DNP LAB_1 Performing Organization Address City/State/ZIP Code Phon e Number [facility] [phone] documented in this encounter Visit Diagnoses Diagnosis Uncontrolled type 2 diabetes mellitus wi thout complication, with long-term current use of insulin - Primary Essential hypertension (HRC) Unspecified essential hypertension Dyslipidemia, goal LDL below 100 (HRC) Other and unspecified hyperlipidemia documented in this encounter Care Teams Retail Manager Relationship Specialty Start Date End Date Elyse Paredes MD PCP - General Family Practice 03/19/17 [address] [place] [address] documented as of this encounter
--- OUTSIDE RECORDS SUMMARY | 2022-07-09 14:38 | XMS_ITS | Encounter Summary ---
:1950 Author Organization [employer] Address [address] [place] [address] Care Team Providers Name Role Phone Elyse Paredes MD Primary Care Provider Reason for Visit Reason Onset Date Comments Refill 04/22/2018 B-D UF III MINI PEN NEEDLES 31G X 5 MM needle Encounter Details Date Type Department Care Team Description 04/22/2018 Refill Specialty Center 401 Fatmata Maddox MD Refill (B-D UF III Endocrinology Clinic 111 [facility] EVE MINI PEN NEEDLES 31G [address] X 5 MM needle) [place] [address] [place] [address] [phone] (Wo rk) Social History Tobacco Use Types [...] Next scheduled visit: 07/20/2018 (in Endocrinology with AFTMATA MADDOX) Last ordered by FATMATA MADDOX: 03/19/2017 (399 days ago) QTY: 100, Refills: 0, Si-5 times daily. (unchanged) Powered by [employer], Reference: [id number], 04/22/2018 9:56:21 AM CDT, Pool: ENDO REFILL [place] ([id number]) Elda Espinal - 04/22/2018 9:55 AM CDT Last refilled: 03/04/18 Dispense amount of last refill: 100 Elda Espinal documented in this encounter Plan of Treatment Upcoming Encounters Date Type Specialty Care Team Description 08/13/2022 Appointment Radiology Denise Aguirre APRN, FOOD CART ATTENDANT [address] [place], [place] [address] (Wo rk) 08/13/2022 Appointment Hematology and Oncology Denise Aguirre APRN, FOOD CART ATTENDANT [address] [place], [place] [address] (Wo rk) documented as of this encounter Goals Goal Patient Goal Associated Recent Patient-Stated? Author Type Problems Progress Being active Diabetes Diabetes No Tere, Education Education aTnner Ng, RD, CDE Note: Formatting of this note might be d ifferent from the original. Being Active: Continue with Cardiac Reha b, 3 days per week, and work on gradually increasing your daily exercise on other days. Eating healthy Diabetes Education Diabetes Education No Tanner Cararnza, RD, CDE Note: Formatting of this note [...] on filedocumented in this encounter Care Teams Maitre D Relationship Specialty Start Date End Date Elyse Paredes MD PCP - General Family Practice 03/19/17 [address] [place] [address] documented as of this encounter
--- OUTSIDE RECORDS SUMMARY | 2022-07-09 14:38 | XMS_ITS | Encounter Summary ---
:1950 Author Organization [employer] Address [address] [place] [address] Care Team Providers Name Role Phone Elyse [...] Team Description 08/13/2022 Appointment Radiology Denise Aguirre, KALSOMINER, HARVESTER OPERATOR [address] [place], [place] [address] (Wo rk) 08/13/2022 Appointment Hematology and Oncology Denise Aguirre APRN, HARVESTER OPERATOR [address] [place], [place] [address] (Wo rk) documented as [...] on filedocumented in this encounter Care Teams Transitional Nurse Relationship Specialty Start Date End Date Elyse Paredes MD PCP - General Family Practice 03/19/17 [address] [place] [address] documented as of this encounter
--- OUTSIDE RECORDS SUMMARY | 2022-07-09 14:38 | XMS_ITS | Encounter Summary ---
:1950 Author Organization [employer] Address [address] [place] [address] Care Team Providers Name Role Phone Elyse Paredes MD Primary Care Provider Reason for Visit Reason Onset Date Comments Refill 04/26/2018 basaglar kwikpen/acc u-chek plus test strips Encounter Details Date Type Department Care Team Description 04/26/2018 Refill Specialty Center 401 Fatmata Maddox MD Refill (basaglar Endocrinology Clinic [address] [place] kwikpen/accu-chek [address] plus test strips) [place] [address] [place] [address] [phone] (Wo rk) Social History Tobacco Use Types [...] brand based on insurance. (unchanged) Powered by [employer]iwon, Reference: [id number], 04/26/2018 10:34:23 AM CDT, Pool: ENDO REFILL RN ([id number]) Elda Espinal - 04/26/2018 10:33 AM CDT Basmagen [place] Last refilled: 03/09/18 Dispense amount of last refill: 30 Accu-chek lizbet plus test strips Last refilled: 01/16/18 Dispense amount of last refill: 250 Elda Espinal documented in this encounter Plan of Treatment Upcoming Encounters Date Type Specialty Care Team Description 08/13/2022 Appointment Radiology Denise Aguirre, FIRER BOILER, AEROSOL SUPERVISOR [address] [place], [place] [address] (Wo rk) 08/13/2022 Appointment Hematology and Oncology Denise Aguirre, GRIFFIN, AEROSOL SUPERVISOR [address] [place], [place] [address] (Wo rk) documented as [...] insulin documented in this encounter Care Teams Commissioning Engineer Relationship Specialty Start Date End Date Elyse Paredes MD PCP - General Family Practice 03/19/17 [address] [place] [address] documented as of this encounter
--- OUTSIDE RECORDS SUMMARY | 2022-07-09 14:38 | XMS_ITS | Encounter Summary ---
:1950 Author Organization [employer] Address [address] [place] [address] Care Team Providers Name Role Phone Elyse Paredes MD Primary Care Provider Reason for Visit Procedure/Equipment (Routine) - Incomplete Specialty Diagnoses / Procedures Referred By Contact Refer red To Contact Diagnoses Abnormal mammogram Elyse Paredes MD Procedures MM US Breast Lt [address] [place] [address] Referral ID Status Reason Start Date Expiration Date Visits V isits Requested Authorized [id number] Incomplete 07/21/2018 10/20/2019 1 1 Encounter Details Date Type Department Care Team Description 07/28/2018 Ancillary Procedure [facility] Breast Elyse Paredes, [facility] [address] [place] [address] [place] [address] [phone] Social History Tobacco Use Types Packs/Day Years [...] Description 08/13/2022 Appointment Radiology Denise Aguirre APRN, MOLD LAMINATOR [address] [place], [place] [address] (Wo rk) 08/13/2022 Appointment Hematology and Oncology Denise Aguirre APRN, MOLD LAMINATOR [address] [place] [address] (Wo rk) documented as of this [...] 1:12 PM Abnormal mammogram Results for this PETROLEUM SUPPLY SPECIALIST procedure are i n the results section. documented in this encounter Results (ABNORMAL) MM US Breast Lt (07/28/2018 1:12 PM PETROLEUM SUPPLY SPECIALIST) Anatomical Region Laterality Modality Breast Left Ultrasound Specimen (Source) Anatomical Collection Method Collection Time Re ceived Time Location / / Volume Laterality 07/28/2018 1:12 PM PETROLEUM SUPPLY SPECIALIST Narrative 07/28/2018 2:08 PM PETROLEUM SUPPLY SPECIALIST TEMPORARY 07/28/2018 2:06 PM INDICATION: Abnormal screening [...] unspecified documented in this encounter Care Teams Engineering Inspection Assistant Relationship Specialty Start Date End Date Elyse Paredes MD PCP - General Family Practice 03/19/[address] [place] [address] documented as of this encounter
--- OUTSIDE RECORDS SUMMARY | 2022-07-09 14:38 | XMS_ITS | Encounter Summary ---
:1950 Author Organization [employer] Address [address] [place] [address] Care Team Providers Name Role Phone Elyse Paredes MD Primary Care Provider Reason for Visit Reason Comments HYPOGLYCEMIA Encounter Details Date Type Department Care Team Description 02/16/2018 Nurse Triage Careline Elyse Paredes MD HYPOGLYCEMIA [address] [place], [place] [address] [place] [address] [phone] (Wo rk) Social History Tobacco Use Types [...] N/A Protocols used: DIABETES - LOW BLOOD [id number] Dione Champion RN - 02/16/2018 2:31 PM [...] Metformin Advised that CareLine is available 22/02 [phone] if you have any questions or need to speak witha nurse. documented in this encounter Plan of Treatment Upcoming Encounters Date Type Specialty Care Team Description 08/13/2022 Appointment Radiology Denise Aguirre, APPRENTICE ELECTRICIAN, PLANNING TECHNICIAN [address] [place], [place] [address] (Wo rk) 08/13/2022 Appointment Hematology and Oncology Denise Aguirre, APPRENTICE ELECTRICIAN, PLANNING TECHNICIAN [address] [place], [place] [address] (Wo rk) documented [...] on filedocumented in this encounter Care Teams Cornice Upholsterer Relationship Specialty Start Date End Date Elyse Paredes MD PCP - General Family Practice 03/19/17 [address] [place] [address] documented as of this encounter
--- OUTSIDE RECORDS SUMMARY | 2022-07-09 14:38 | XMS_ITS | Encounter Summary ---
:1950 Author Organization [employer] Address [address], [place] [address] Care Team Providers Name Role Phone Elyse Paredes MD Primary Care Provider Reason for Visit Reason Comments Medication Questions Karis - BG number has dr opped to 43 - 45 twice Encounter Details Date Type Department Care Team Description 02/16/2018 Telephone Specialty Center 401 Miya Shin MD Medication Questions Endocrinology Clinic [address] ([facility] [address] [place] [address] [place] [address] to 43 - 45 twice) [phone] (Wo rk) Social History Tobacco Use Types [...] reduced again . Miya Shin MD Endocrinology, [facility] Specialty Clinic 02/17/2018 , 11:27 [...] daily or Humalog 6 units with meals. Retail Sales Director advise pt to not take the Trulicity [...] Description 08/13/2022 Appointment Radiology Denise Aguirre APRN, SHANKER OUT [address] [place], [place] [address] (Wo rk) 08/13/2022 Appointment Hematology and Oncology Denise Aguirre APRN, SHANKER OUT [address] [place], [place] [address] (Wo rk) documented as [...] insulin documented in this encounter Care Teams Musical Engineer Relationship Specialty Start Date End Date Elyse Paredes MD PCP - General Family Practice 03/19/17 [address] [place] [address] documented as of this encounter
--- OUTSIDE RECORDS SUMMARY | 2022-07-09 14:38 | XMS_ITS | Encounter Summary ---
:1950 Author Organization [employer] Address [address] [place] [address] Care Team Providers Name Role Phone Elyse [...] Description 08/13/2022 Appointment Radiology Denise Aguirre, GROUND CONTROL APPROACH TECHNICIAN, AIR DEFENSE ARTILLERY SENIOR SERGEANT [address] [place], [place] [address] (Wo rk) 08/13/2022 Appointment Hematology and Oncology Denise Aguirre APRN, AIR DEFENSE ARTILLERY SENIOR SERGEANT [address] [place], [place] [address] (Wo rk) documented as [...] on filedocumented in this encounter Care Teams Palm And Back Forger Relationship Specialty Start Date End Date Elyse Paredes MD PCP - General Family Practice 03/19/17 [address] [place] [address] documented as of this encounter
--- OUTSIDE RECORDS SUMMARY | 2022-07-09 14:38 | XMS_ITS | Encounter Summary ---
:1950 Author Organization [employer] [id number] [place] [address] Care Team Providers Name Role Phone Elyse Paredes MD Primary Care Provider Reason for Referral Procedure/Equipment (Routine) - Incomplete Specialty Diagnoses / Procedures Referred By Contact Refer red To Contact Procedures Elyse Paredes MD MM Mammogram Screening Bilat [address] [place] [address] Referral ID Status Reason Start Date Expiration Date Visits V isits Requested Authorized [id number] Incomplete 07/19/2018 10/18/2019 1 1 GER EMERGENCY Reason for Visit Procedure/Equipment (Routine) - Incomplete Specialty Diagnoses / Procedures Referred By Contact Refer red To Contact Procedures Elyse Paredes MD MM Mammogram Screening Bilat [address] [place] [address] Referral ID Status Reason Start Date Expiration Date Visits V isits Requested Authorized [id number] Incomplete 07/19/2018 10/18/2019 1 1 Encounter Details Date Type Department Care Team Description 07/19/2018 Ancillary Procedure [facility] Mammography [address] [place] [address] Social History Tobacco Use Types [...] Team Description 08/13/2022 Appointment Radiology Denise Aguirre, SURVEY RESEARCH TEACHER, BAG PRINTER [address] [place], [place] [address] (Wo rk) 08/13/2022 Appointment Hematology and Oncology Denise Aguirre, SURVEY RESEARCH TEACHER, BAG PRINTER [address] [place], [place] [address] (Tonio rk) documented as [...] PM Results for this SCREENING BILAT W MANAGER EMERGENCY procedure are in CAD the results section. documented in this encounter Results (ABNORMAL) MM Mammogram Screening Bilat W CAD (07/19/2018 12:08 PM MANAGER EMERGENCY) Anatomical Region Laterality Modality Breast Bilateral Mammography Specimen (Source) Anatomical Location Collection Method / Collectio n Time Received Time / Laterality Volume Impressions 07/20/2018 3:39 PM MANAGER EMERGENCY : ACR BI-RADS Category 0: Need Additional Imaging Evaluation RECOMMENDATION: Ultrasound of the left b reast. The results and recommendations of this examination will be communicated to the patient and the imaging center wi ll attempt to schedule any recommended follow up with the patient. Narrative 07/20/2018 3:39 PM MANAGER EMERGENCY MM MAMMOGRAM SCREENING BILAT W CAD performed [...] on filedocumented in this encounter Care Teams Compensation Business Partner Relationship Specialty Start Date End Date Elyse Paredes MD PCP - General Family Practice 03/19/17 [address] [place] [address] documented as of this encounter
--- OUTSIDE RECORDS SUMMARY | 2022-07-09 14:38 | XMS_ITS | Encounter Summary ---
:1950 Author Organization [employer] Address [address] [place] [address] Care Team Providers Name Role Phone Elyse Paredes MD Primary Care Provider Encounter Details Date Type Department Care Team Description 09/09/2017 Telephone Specialty Center 401 Gabrielle Morris APRN, Endocrinology Clinic [facility] [address] [place] [address] [place] [address] [phone] (Wo rk) Social History Tobacco Use Types Packs/Day Years Used Date Smoking Tobacco: Former Cigarettes Quit : 08/02/1981 Smokeless Tobacco: Never Alcohol Use Standard Drinks/Week Comments No 0 (1 standard drink = 0.6 oz pure alcoho l) Sex Assigned at Date Recorded Not on file documented as of this encounter Nursing Notes Donna Mcdermott RN - 09/10/2017 1:37 PM CST The technology coordinator called back and was notified of the recommendations. She is going to follow up with the patient and send the blood sugar to Endocrinology. Donna Mcdermott RN 09/10/2017, 1:39 PM Donna Jha RN - 09/10/2017 12:59 PM CST Left a message for Jeri the nurse to call back. Donna Mcdermott RN Gabrielle Pandey APRN, NATIONAL FACILITIES MANAGER - 09/10/2017 12:41 PM CST Noted. Atrial fibrillation after cardioversion; see transfer records. At 06/17/2017 office visit, patient's preference was to discontinue mealtime insulin due to subjective weight gain and restart metformin and GLP-1 Agonist; metformin extended release and Trulicity 0.75mg weekly were prescribed. She has had GI side effects with medications in the past. Per Pain Management Physician notes dated 08/11/2017, patient hesitant to start [...] on 11/03/2017 Thank you. Gabrielle Morris APRN, CELLOPHANE BAG MACHINE OPERATOR-C 09/10/2017 12:53 PM Donna Jha RN - 09/10/2017 9:11 AM CST Jeri the PCP medicare sales executive called back to discuss this patient starting Trulicity or Metformin. The patient had complications with her heart surgery so she hasn't started either medication at thispoint. Records were received [facility] and placed on providers desk for review. Donna Mcdermott RN 09/10/2017, 9:19 AM Donna Jha RN - 09/10/2017 8:59 AM CST Left a message for the nurse Jeri to call back. Donna Mcdermott RN Randee Raya - 09/09/2017 3:15 PM CST Jeri the technology coordinator calling because patient hasn't started metformin or trulicity because ofcomplications from Surgery and patient wanting to try Trulicity and wanting to know if can start or wait because patient has been going in and out of Af[facility].Jeri will fax last office note. Randee Vang STANT CREDIT MANAGER documented in this encounter Plan of Treatment Upcoming Encounters Date Type Specialty Care Team Description 08/13/2022 Appointment Radiology Denise Aguirre, LOAD BLOCKER, NATIONAL FACILITIES MANAGER [address] [place], [place] [address] (Wo rk) 08/13/2022 Appointment Hematology and Oncology Denise Aguirre, LOAD BLOCKER, NATIONAL FACILITIES MANAGER [address] [place], [place] [address] (Wo rk) documented as [...] on filedocumented in this encounter Care Teams Executive Advisor Relationship Specialty Start Date End Date Elyse Paredes MD PCP - General Family Practice 03/19/17 [address] [place] [address] documented as of this encounter
--- OUTSIDE RECORDS SUMMARY | 2022-07-09 14:38 | XMS_ITS | Encounter Summary ---
:1950 Author Organization [employer] Address [address], [place] [address] Care Team Providers Name Role Phone Elyse Paredes MD Primary Care Provider Reason for Visit Reason Comments RESULTS, TEST Encounter Details Date Type Department Care Team Description 03/24/2017 Telephone Specialty Center 401 Miya Shin MD RESULTS, TEST Endocrinology Clinic [address] [place] [address] [place] [address] [phone] (Wo rk) Social History Tobacco Use Types [...] at the visit. Miya Shin MD Endocrinology, [facility] 03/24/2017 , 5:06 PM This note was at least partially transcribed using Grid2Home voice recognition software, and may contain unintentional word substitutions or other linesperson errors. Donna Mcdermott RN - 03/24/2017 2:01 [...] Description 08/13/2022 Appointment Radiology Denise Aguirre APRN, ENDO TECH [address] [place], [place] [address] (Wo rk) 08/13/2022 Appointment Hematology and Oncology Denise Aguirre APRN, ENDO TECH [address] [place], [place] [address] (Wo rk) documented as of this encounter Visit Diagnoses Not on filedocumented in this encounter Care Teams Open Hearth Laborer Relationship Specialty Start Date End Date Elyse Paredes MD PCP - General Family Practice 03/19/17 [address] [place] [address] documented as of this encounter
--- OUTSIDE RECORDS SUMMARY | 2022-07-09 14:38 | XMS_ITS | Encounter Summary ---
:1950 Author Organization [employer] Address [address], [place] [address] Care Team Providers Name Role Phone Elyse Paredes MD Primary Care Provider Reason for Visit Reason Comments Revisit diabetes Encounter Details Date Type Department Care Team Description 01/14/2018 Office Visit Specialty Center Miya Shin Unc ontrolled type 2 401 Endocrinology diabetes mellitus Clinic [address] without [address] complication, [place] [address] [place] [address] long-term current [phone] (Wo rk) use of insulin (HRC) (Primary [...] Body Mass Index 52.9 06/17/2017 3:10 PM SPORTS PHYSICAL THERAPIST documented in this encounter Patient Instructions Patient [...] go low or high, then you can windows consultant the Humalog dose. Now you are introducing the Trulicity also. Can't really windows consultant the humalog dose ( ratio to carb gram) until the Trulicity is at max, and basaglar is adjusted , so your fasting sugars are between 90-130. Miya Shin MD Endocrinology, [facility] 01/14/2018 , 12:14 PM LAB [...] >>> Referrals : NA Helpful phone numbers: [facility]: 401 [facility] ?? For appointments call: [phone] ?? For question call our nurses at [phone] Care Line (after 5 PM, weekends and holidays): [phone] [facility]: [address] [place], [place] ?? For appointments call: [phone], ?? For question call our nurses at [phone] Care Line (after 5 PM, weekends and holidays): [phone] Mail order pharmacy: [phone] or For lab only appointments (Daily 7 a.m.-9 p.m.): [phone], or [phone] at [facility] [place] RESULTS: I will communicate my interpretation [...] visit. Get Cost of Care Estimates - [phone] PRIOR APPROVAL OF MEDICATIONS BY INSURANCE : If you have not heard about the status of your medication within 3 business days, please call us at [phone]. documented in this encounter Progress Notes Jacquelyn Matos RN - 01/14/2018 5:14 PM CDT Discussed at office visit on 01/14/2018 Jacquelyn Matos, [place] 01/14/2018, 5:14 PM Miya Shin MD - 01/14/2018 11:00 AM CDT Images from the original note were not included. Endocrine Diabetes Mellitus PN Date of Service: 01/14/2018 Cooler Conveyor Loader: Miya Shin MD Subjective Marci Diaz is [...] go low or high, then you can windows consultant the Humalog dose. Now you are introducing the Trulicity also. Can't really windows consultant the humalog dose ( ratio to carb [...] care. Miya Shin MD Endocrinology, [facility] 01/14/2018 , 12:14 PM Electronically Signed by Miya Shin MD This note was partly transcribed using valuescope voice recognition software, and may contain unintentional word substitutions or other videotape recording engineer errors. documented in this encounter Nursing Notes [...] Team Description 08/13/2022 Appointment Radiology Denise Aguirre, GENERAL MAGISTRATE, AUTOMOBILE MECHANIC HELPER [address] [place], [place] [address] (Wo rk) 08/13/2022 Appointment Hematology and Oncology Denise Aguirre GENERAL MAGISTRATE, AUTOMOBILE MECHANIC HELPER [address] [place], [place] [address] (Wo rk) documented as [...] Point of Care (01/14/2018 11:18 AM CDT) [facility] gist Method Time Signature Point of [...] City/State/ZIP Code Phon e Number [facility] [phone] documented in this encounter Visit Diagnoses Diagnosis Uncontrolled type 2 diabetes mellitus wi thout complication, with long-term current use of insulin - Primary documented in this encounter Care Teams Rice Field Worker Relationship Specialty Start Date End Date Elyse Paredes MD PCP - General Family Practice 03/19/17 [address] [place] [address] documented as of this encounter
--- OUTSIDE RECORDS SUMMARY | 2022-07-09 14:38 | XMS_ITS | Encounter Summary ---
:1950 Author Organization [employer] Address [address], [place] [address] Care Team Providers Name Role Phone Elyse Paredes MD Primary Care Provider Encounter Details Date Type Department Care Team Description 01/21/2017 Orders Only External to Elyse Paredes MD [address] [place], [place] [address] (Wo rk) Social History [...] Team Description 08/13/2022 Appointment Radiology Denise Aguirre, CITY BUS DRIVER, CHEMICAL DEPENDENCY NURSE [address] [place], [place] [address] (Wo rk) 08/13/2022 Appointment Hematology and Oncology Denise Aguirre APRN, CHEMICAL DEPENDENCY NURSE [address] [place], [place] [address] (Wo rk) documented as [...] on filedocumented in this encounter Care Teams Otr Flatbed Driver Relationship Specialty Start Date End Date Elyse Paredes MD PCP - General Family Practice 03/19/17 [address] [place] [address] documented as of this encounter
--- OUTSIDE RECORDS SUMMARY | 2022-07-09 14:38 | XMS_ITS | Encounter Summary ---
:1950 Author Organization [employer] Address [address] [place] [address] Care Team Providers Name Role Phone Elyse Paredes MD Primary Care Provider Reason for Visit Reason Comments RESULTS, TEST 07/28 left breast biopsy Encounter Details Date Type Department Care Team Description 07/29/2018 Telephone [facility] Clarita Rivas, RESULTS, TEST (07/28 Center GRIFFIN Lofton CNP left breast biopsy) 640 [facility] [address] [place] [address] [place] [address] [phone] (Wo rk) Social History Tobacco Use Types [...] Kirsty Rivas APRN, CNP 07/29/2018, 1:48 PM E SALVAGER documented in this encounter Plan of Treatment Upcoming Encounters Date Type Specialty Care Team Description 08/13/2022 Appointment Radiology Denise Aguirre, CHIEF OF SAFETY AND PROTECTION, TRAINING INTERN [address] [place], [place] [address] (Wo rk) 08/13/2022 Appointment Hematology and Oncology Denise Aguirre, CHIEF OF SAFETY AND PROTECTION, TRAINING INTERN [address] [place], [place] [address] (Wo rk) documented as [...] on filedocumented in this encounter Care Teams Aluminum Boat Assembly Supervisor Relationship Specialty Start Date End Date Elyse Paredes MD PCP - General Family Practice 03/19/17 [address] [place] [address] documented as of this encounter
--- OUTSIDE RECORDS SUMMARY | 2022-07-09 14:38 | XMS_ITS | Encounter Summary ---
:1950 Author Organization [employer] Address [address], [place] [address] Care Team Providers Name Role Phone Elyse Paredes MD Primary Care Provider Reason for Referral Consult/Transfer Care (Routine) - Closed Specialty Diagnoses / Procedures Referred By Contact Refer red To Contact Diagnoses Uncontrolled diabetes mellitus type 2 without complications, unspecified usp insulin use status Miya Shin MD [address] [place] [address] Referral ID Status Reason Start Date Expiration Date Visits Requ ested Visits Authorized [id number] Closed 03/19/2017 06/18/2018 1 1 Scheduling Instructions Your provider has recommended you for a visit with our Diabetes department. If scheduling assistance is needed, please inquire with the medical office staff upon exiting your appointment or you may call [phone]. To find out your specific benefit coverage, please call the number on your insurance card. Encounter Details Date Type Department Care Team Description 03/19/2017 Office Visit Specialty Center Miya Shin Unc ontrolled 401 Endocrinology MD diabetes mellitus Clinic [address] [facility], [place] [address] [place] [address] unspecified long [phone] (Wo rk) term insulin use status (H [...] if follow up is again high at [facility], or revisitwith nurse, then would increase the [...] and follow up with a PA or CANDLE MAKER in hour clinic. Miya Shin MD Endocrinology, [facility] 03/19/2017 , 12:50 PM FOLLOW UP INSTRUCTIONS: >>> Future Clinic visit in 2-3 months with CANDLE MAKER,, or PA in our clinic, and 6 months with me. Also, Diabetes Ed nurse. >>> Labs: today >>> Radiology: NA >>> Referrals : Diab ED Helpful phone numbers: [facility]: 401 [facility] ?? For appointments call: [phone] ?? For question call our nurses at [phone] Care Line (after 5 PM, weekends and holidays): [phone] [facility]: [address] [place], [place] ?? For appointments call: [phone], ?? For question call our nurses at [phone] Care Line (after 5 PM, weekends and holidays): [phone] Mail order pharmacy: [phone] or For lab only appointments (Daily 7 a.m.-9 p.m.): [phone], or [phone] at [facility] TEST RESULTS: I will communicate my interpretation [...] visit. Get Cost of Care Estimates - [phone] PRIOR APPROVAL OF MEDICATIONS BY INSURANCE : If you have not heard about the status of your medication within 3 business days, please call us at [phone]. documented in this encounter Progress Notes Miya Shin MD - 03/19/2017 11:00 AM CDT Endocrine Clinic, New Patient Consult Note Date of Service: 03/19/2017 Electronic Heat Seal Operator: Miya Shin MD Referring Provider: Elyse Paredes [...] diabetes mellitus type 2 without complications, unspecified usp insulin use status (HRC) Recommendations: 1. Insulin [...] if follow up is again high at [facility], or revisitwith nurse, then would increase the [...] and follow up with a PA or CANDLE MAKER in hour clinic. Current Medications Current [...] 10 mg by mouth. 03/19/2017: Received from: [facility] Received Sig: Take 10 mg by mouth [...] Take 1/2 tab daily 03/19/2017: [facility] No current facility-administered medications for this visit. [...] care in detail. Miya Shin MD Endocrinology, [facility] 03/19/2017 , 12:50 PM Electronically Signed by Miya Shin MD This note was transcribed using YumZing voice recognition software, and may contain unintentional word substitutions or other top inventory control executive errors. documented in this encounter Nursing Notes [...] Description 08/13/2022 Appointment Radiology Denise Aguirre APRN, FORESTRY AND WILDLIFE MANAGER [address] [place], [place] [address] (Wo rk) 08/13/2022 Appointment Hematology and Oncology Denise Aguirre APRN, FORESTRY AND WILDLIFE MANAGER [address] [place], [place] [address] (Wo rk) Scheduled Referrals Name Type Priority Associated Diagnoses Order S chedule Diabetes Education Referral Routine Uncontrolled diabetes Ordered: 03/19/2017 Visit mellitus type 2 without complications, unspecified intermediate accountant insulin use status (HRC) documented as of this encounter Results (ABNORMAL) Microalb / Creat Ratio (03/19/2017 2:16 PM CDT) [facility] gist Method Time Signature Albumin, 108.1 [...] 03/19/2017 7:52 PM C DT Performed at [facility], [address] [place] [id number] Miya Shin MD LAB_1 Performing Organization Address City/State/ZIP Code Phon e Number [facility] [phone] Basic Metabolic Panel (03/19/2017 1:51 PM CDT) Analysis Performed At [facility] logist Time Signature Sodium 141 136 - [...] 03/19/2017 7:44 PM C DT Performed at [address] ??[address] Miya Shin MD LAB_1 Performing Organization Address City/[facility] Phon e Number [facility] [phone] Free T4 (03/19/2017 1:51 PM CDT) athologist Signature T4, Free 0.9 0.7 - 1.5 [facility] ng/dl Specimen Anatomical Collection Method Collection Time Receive d Time (Source) Location / / Volume Laterality 03/19/2017 1:51 PM 7 1:56 CDT PM CDT Narrative [facility] - 03/19/2017 8:02 PM C DT Performed at [address] ??[address] Miya Shin MD LAB_1 Performing Organization Address City/State/ZIP [facility] Phon e Number [facility] [phone] TSH (03/19/2017 1:51 PM CDT) athologist Signature TSH, Sensitive 2.72 0.30 - [facility] uIU/ml Specimen Anatomical Collection Method Collection Time Receive d Time (Source) Location / / Volume Laterality 03/19/2017 1:51 PM 7 1:56 CDT PM CDT Narrative [facility] - 03/19/2017 8:02 PM C DT Performed at [facility], [address] [place] [address] Miya Shin MD LAB_1 Performing Organization Address City/[facility]/ZIP Code Phon e Number [facility] [phone] Insulin Antibodies Panel (03/19/2017 1:51 PM CDT) Component Value Ref Test Analysis Performed At [facility] Ium Range Method Time Signature Insulin <0.4 [facility] [...] arbitrary. Kronus Units = U/mL [address] [place] [address] www.[email or web address], Yves Hopper MD, Lab. Director Specimen Anatomical Collection Method Collection Time Receive d Time (Source) Location / / Volume Laterality 03/19/2017 1:51 PM 7 1:55 CDT PM CDT Narrative [facility] - 03/22/2017 5:24 PM C DT Performed by [facility], [address] [facility] [address] [place], [place] [address] Miya Shin MD LAB_1 Performing Organization Address [facility] Phon e Number [facility] [phone] Islet Cell IGG Antibody (03/19/2017 1:51 PM CDT) Component Value Ref Test Analysis Performed At [facility] Ium Range Method Time Signature Islet Cell <1:4 [...] Units). Test developed and characteristics determined by [facility] ?? Laboratories. See Compliance Statement A: [facility]/ [address] [place] [address] www.[facility], Yves Hopper MD, Lab. Director Specimen Anatomical Collection Method Collection Time Receive d Time (Source) Location / / Volume Laterality 03/19/2017 1:51 PM 7 1:55 CDT PM CDT Narrative [facility] - 03/20/2017 7:40 PM C DT Performed by [facility], [address] [facility] [place] [place], [place] [address] Miya Shin MD LAB_1 Performing Organization Address City/[facility] Phon e Number [facility] [phone] C-Peptide, Serum or Plasma (03/19/2017 1:51 PM CDT) [facility] Method Time Signature C-Peptide 1.1 [facility] Reference range: 0.8 to 3.5 [facility] Unit: ng/mL C-Peptide (NOTE) [facility] INTERPRETIVE INFORMATION: C-Peptide, Serum or Plasma LABORATORIES Reference Interval applies to fasting specimens. To convert to ?? nmol/L, multiply by 0.33 [address] [place] [address] www.[email or web address], Yves Hopper MD, Lab. Director Specimen Anatomical Collection Method Collection Time Receive d Time (Source) Location / / Volume Laterality 03/19/2017 1:51 PM 7 1:55 CDT PM CDT Narrative [facility] - 03/20/2017 1:10 PM C DT Performed by [facility], [address] [place], [place] [address] Myia Shin MD LAB_1 Performing Organization Address City/[facility] Phon e Number [facility] [phone] Glutamic Acid Decarboxylase Antibody (03/19/2017 1:51 PM CDT) Component Value Ref Test Analysis Performed At [facility] Range Method Time Signature Glutamic Acid <5.0 [facility] Decarbox[facility] Reference range: 0.0 to 5.0 LABORATORIES Antibody Unit: IU/mL Glutamic Acid (NOTE) [facility] INTERPRETIVE INFORMATION: ??Glutamic Acid Decarb oxylase Antibody LABORATORIES Antibody A value greater than 5.0 IU/mL is considered pos itive for Glutamic ?? Acid Decarboxylase Antibody. [address] [place] [address] www.[facility], Yves Hopper MD, Lab. Director Specimen Anatomical Collection Method Collection Time Receive d Time (Source) Location / / Volume Laterality 03/19/2017 1:51 PM 7 1:55 CDT PM CDT Narrative [facility] - 03/21/2017 4:16 PM C DT Performed by [facility], [address] [place] [address] [place], [place] [address] Miya Shin MD LAB_1 Performing Organization Address City/State/ZIP Code Phon e Number [facility] [phone] documented in this encounter Visit Diagnoses Diagnosis Uncontrolled diabetes mellitus type 2 wi thout complications, unspecified usp insulin use status - Primary Uncontrolled diabetes mellitus type 2 wi thout complications, unspecified intermediate accountant insulin use status documented in this encounter Care Teams Blood Bank Laboratory Professional Relationship Specialty Start Date End Date Elyse Paredes MD PCP - General Family Practice 03/19/17 [address] [place] [address] documented as of this encounter
--- OUTSIDE RECORDS SUMMARY | 2022-07-09 14:38 | XMS_ITS | Encounter Summary ---
:1950 Author Organization [employer] Address [address] [place] [address] Care Team Providers Name Role Phone Elyse Paredes MD Primary Care Provider Reason for Visit Procedure/Equipment (Routine) - Incomplete Specialty Diagnoses / Procedures Referred By Contact Refer red To Contact Diagnoses Abnormal mammogram Elyse Paredes MD Procedures MM US Bx Breast Lt [address] [place] [address] Referral ID Status Reason Start Date Expiration Date Visits V isits Requested Authorized [id number] Incomplete 07/28/2018 10/27/2019 1 1 Encounter Details Date Type Department Care Team Description 07/28/2018 Ancillary [facility] Breast Elyse Paredes, Lump or ma ss in breast (Primary Dx); Procedure [facility] Abnormal mammogram [address] [facility] [address] [place] [address] [phone] Social History Tobacco Use Types Packs/Day Years [...] Team Description 08/13/2022 Appointment Radiology Denise Aguirre, SLAB MILLER OPERATOR, MOTOR CHECKER [address] [place], [place] [address] (Wo rk) 08/13/2022 Appointment Hematology and Oncology Denise Aguirre, SLAB MILLER OPERATOR, MOTOR CHECKER [address] [place] [address] (Wo rk) documented as of this [...] PM Abnormal mammogr am Results for this FLOOR PLAN ADJUSTER procedure are i n the results section. SURGICAL PATH Routine 07/28/2018 6:00 AM Lump or mass in Resul ts for this FLOOR PLAN ADJUSTER breast procedure are i n the results section. documented in this encounter Results MM US Bx Breast Lt (07/28/2018 2:05 PM FLOOR PLAN ADJUSTER) Anatomical Region Laterality Modality Breast Left Mammography Specimen (Source) Anatomical Location Collection Method / Collectio n Time Received Time / Laterality Volume Addenda Addendum by Tone Chiang MD on 3:50 PM FLOOR PLAN ADJUSTER Pathology reveals invasive ductal carcin rianna. This is consistent with the imaging findings. A verbal report was gi eligio to the patient. Surgical consult has been arranged. Impressions 07/28/2018 2:38 PM FLOOR PLAN ADJUSTER : 1. Ultrasound guided biopsy of a suspici ous mass in the left breast. ?? Pathology pending. 2. Post procedure mammogram for clip kale cement. Narrative 07/28/2018 2:38 PM FLOOR PLAN ADJUSTER LEFT BREAST ULTRASOUND GUIDED BIOPSY, CLIP PLACEMENT [...] no immediate compli cations. Elyse Paredes MD [facility] Surgical Path (07/28/2018 6:00 AM FLOOR PLAN ADJUSTER) Component Value Ref Test Analysis Performed At [facility] gist Range Method Time Signature Histology (NOTE) [facility] Surgical Final Report ?? [facility] Procedures/Addenda Present Patient Name: IRVIN HOFFMAN Taken: 07/28/2018 Received: 07/28/2018 Reported: 07/29/2018 Physician(s): TONE CHIANG ? Final Pathologic Diagnosis Breast, left, 12 o'clock zone 2, biopsy -- ?1. 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 ??Ductal carcinoma in situ, solid type, intermediat e grade nucleus ?3. ??ER, NM and HER-2/carin studies will be performed an [...] paraffin emb edded tissue. Antiestrogen Receptor: ?? Kapaa (clone SP1, monoclonal rab bit) Antiprogesterone Receptor: ??Kapaa (clone 1E2, monoclonal rabbit) Semiquantitative Evaluation: ??Ladonna [...] Factor Receptor 2 Testing in Breast Cancer: [place] Society of Cli nical Oncology/ College of [place] Pathologists Clinical Practice Guideline Focused Update. Journal of Clinical Oncology, November 2017. DOI: https://doi.org/10.1200/JCO.2018. 77.8738. PMID: 40367113. W eb link: http://ascopubs.org/doi/abs/10.1200/JCO.2018.77.8738 The FDA-approved Dako [...] and stain appropriatel y. smgg07/29/2018 ALEXANDRA Merrill [facility] Deisi Pina MD [facility] Department of Pathology [address] [place], [place] ??[address] Specimen Anatomical Collection Method Collection Time Receive d Time (Source) Location / / Volume Laterality Breast 07/28/2018 6:00 AM 8 5:30 FLOOR PLAN ADJUSTER PM FLOOR PLAN ADJUSTER Tone Chiang MD LAB_1 Performing Organization Address City/State/ZIP Code Phon e Number [address] [address] documented in this encounter Visit Diagnoses Diagnosis Lump or mass in breast - Primary Abnormal mammogram Abnormal mammogram, unspecified documented in this encounter Care Teams Bath Mixer Relationship Specialty Start Date End Date Elyse Paredes MD PCP - General Family Practice 03/19/17 [address] [place] [address] documented as of this encounter
--- OUTSIDE RECORDS SUMMARY | 2022-07-09 14:38 | XMS_ITS | Encounter Summary ---
:1950 Author Organization [facility] Address [address] [place] [address] Care Team Providers Name Role Phone Elyse Paredes MD Primary Care Provider Reason for Visit Reason Comments DIABETES EDUCATION Consult/Transfer Care (Routine) - Closed Specialty Diagnoses / Procedures Referred By Contact Refer red To Contact Diagnoses Uncontrolled diabetes mellitus type 2 without complications, unspecified watcher automat long goods insulin use status Miya Shin MD [address] [facility] [address] [place] [address] Referral ID Status Reason Start Date Expiration Date Visits Requ ested Visits Authorized [id number] Closed 03/19/2017 06/18/2018 1 1 Encounter Details Date Type Department Care Team Description 08/11/2017 Diabetes Ed [facility] Tanner Carranza Unco ntrolled type 2 401 [facility] ARMAND Ng, CDE diabetes mellitus [address] without complication, [place] [address] with long-term current [phone] use of insulin (HRC) (Primary Dx) Social [...] Carranza RD, CDE - 08/11/2017 4:00 PM STEEL GRINDER EDUCATION PLAN / PATIENT INSTRUCTIONS Espinosa points [...] Trulicity. Appointments to be scheduled (Appointment center [phone]): Follow up with Dr. Shin on 10/20/17 at 2:15pm. Bring meters for download, The following vaccines are recommended for people with diabetes: Annual influenza, pneumococcal pneumonia, Hepatitis B series. If you are having unexplained low blood glucose (less than 70) or blood glucose over 250 often, or any questions or urgent concerns, please contact your primary care provider, Elyse Paredes MD, at [phone] or send an email message through [email or web address]. For after hours care, call [facility] at [phone]. For emergencies, please call 911. If you have questions or problems with use of your blood glucose meter, call the 800 number on the back of the meter. Please bring your meter and logbook to all appointments. Please contact your pharmacy for medication refills. L GRINDER documented in this encounter Progress Notes Tanner Carranza RD, CARMENE - 08/11/2017 4:00 PM CST Marci Diaz is referred by Dr. Miya Shin for Diabetes Education for Type 2 Diabetes, diagnosed in late . Her PCP is at [facility]. She had aortic valve replacement surgery Jul 05 and found to have atrial fib ~Norman. Started on Warfarin and beta elpidio. She will have cardioversion if INR in range for ~3wks, which may be end of August. Hesitant to start any new meds, until has successful cardioversion. She uses 3 different meters, but did not bring with her today. 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 [...] Smart Shake (16 gm carb) Or home: Kazakh muffin w/peanut butter, low sugar jam, diet [...] Trulicity. Appointments to be scheduled (Appointment center [phone]): Follow up with Dr. Shin on 10/20/17 at 2:15pm. Bring meters for download, The following vaccines are recommended for people with diabetes: Annual influenza, pneumococcal pneumonia, Hepatitis B series. If you are having unexplained low blood glucose (less than 70) or blood glucose over 250 often, or any questions or urgent concerns, please contact your primary care provider, Elyse Paredes MD, at [phone] or send an email message through [email or web address]. For after hours care, call [facility] at [phone]. For emergencies, please call 911. If you have questions or problems with use of your blood glucose meter, call the 800 number on the back of the meter. Please bring your meter and logbook to all appointments. Please contact your pharmacy for medication refills. Time spent with the patient: 60 minutes for diabetes education and counseling. Jazmin Carranza RD, CALE 08/11/2017, 4:11 PM L GRINDER documented in this encounter Plan of Treatment Upcoming Encounters Date Type Specialty Care Team Description 08/13/2022 Appointment Radiology Denise Aguirre APRN, PRODUCT DELIVERY SPECIALIST [address] [place], [place] [address] (Wo rk) 08/13/2022 Appointment Hematology and Oncology Denise Aguirre APRN, PRODUCT DELIVERY SPECIALIST [address] [place], [place] [address] (Wo rk) documented as [...] Primary documented in this encounter Care Teams Strategy Execution Consultant Relationship Specialty Start Date End Date Elyse Paredes MD PCP - General Family Practice 03/19/17 [address] [place] [address] documented as of this encounter
--- OUTSIDE RECORDS SUMMARY | 2022-07-09 14:38 | XMS_ITS | Encounter Summary ---
:1950 Author Organization [employer] Address [address] [place] [address] Care Team Providers Name Role Phone Elyse Paredes MD Primary Care Provider Encounter Details Date Type Department Care Team Description 03/19/2017 Lab Visit Specialty Center Uncontro lled diabetes Laboratory mellitus type [address] complications, [place] [address] snf insulin use status [phone] ([facility]) Social History Tobacco Use Types Packs/Day Years [...] Team Description 08/13/2022 Appointment Radiology Denise Aguirre, PARKING STATION ATTENDANT, FULL TIME BABYSITTER [address] [place] [phone] (Wo rk) 08/13/2022 Appointment Hematology and Oncology Denise Aguirre, PARKING STATION ATTENDANT, FULL TIME BABYSITTER [address] [place] [address] (Wo delta) documented as of this encounter Procedures Procedure Name Priority Date/Time Associated Diagnosis Comme nts ALBUMIN/CREAT RATIO Routine 03/19/2017 2:16 Uncontrolled Resul ts for this PM CDT diabetes mellitus procedure are in type 2 without the results complications, section. unspecified snf insulin use status (HRC) ISLET CELL IGG Routine 03/19/2017 1:51 Uncontrolled Results fo r this ANTIBODY PM CDT diabetes mellitus procedure are in type 2 without the results complications, section. unspecified long term care phlebotomist insulin use status (HRC) INSULIN ANTIBODIES Routine 03/19/2017 1:51 Uncontrolled Result s for this PANEL PM CDT diabetes mellitus procedure are in type 2 without the results complications, section. unspecified long term care phlebotomist insulin use status (HRC) GLUTAMIC ACID Routine 03/19/2017 1:51 Uncontrolled Results for this DECARBOXYLASE ANTIBODY PM CDT diabetes mellitus procedure are in type 2 without the results complications, section. unspecified snf insulin use status (HRC) C-PEPTIDE, SERUM Routine 03/19/2017 1:51 Uncontrolled Results for this PM CDT diabetes mellitus procedure are in type 2 without the results complications, section. unspecified long term care phlebotomist insulin use status (HRC) TSH, SENSITIVE Routine 03/19/2017 1:51 Uncontrolled Results fo r this PM CDT diabetes mellitus procedure are in type 2 without the results complications, section. unspecified snf insulin use status (HRC) BASIC METABOLIC PANEL Routine 03/19/2017 1:51 Uncontrolled Res ults for this PM CDT diabetes mellitus procedure are in type 2 without the results complications, section. unspecified long term care phlebotomist insulin use status (HRC) FREE T4 Routine 03/19/2017 1:51 Uncontrolled Results for this PM CDT diabetes mellitus procedure are in type 2 without the results complications, section. unspecified long term care phlebotomist insulin use status (HRC) documented in this encounter Results (ABNORMAL) Microalb / Creat Ratio (03/19/2017 2:16 PM CDT) [facility] Method Time Signature Albumin, 108.1 mg/L [facility] [...] 03/19/2017 7:52 PM C DT Performed at [address] ??[address] Miya Shin MD LAB_1 Performing Organization Address City/[facility] Phon e Number [facility] [phone] Basic Metabolic Panel (03/19/2017 1:51 PM CDT) [...] 03/19/2017 7:44 PM C DT Performed at [address] ??[address] Miya Shin MD LAB_1 Performing Organization Address City/[facility] Phon e Number [facility] [phone] Free T4 (03/19/2017 1:51 PM CDT) P athologist Signature T4, Free 0.9 0.7 - 1.5 [facility] ng/dl Specimen Anatomical Collection Method Collection Time Receive d Time (Source) Location / / Volume Laterality 03/19/2017 1:51 PM 7 1:56 CDT PM CDT Narrative [facility] - 03/19/2017 8:02 PM C DT Performed at [address] ??[address] Miya Shin MD LAB_1 Performing Organization Address [facility] Phon e Number [facility] [phone] TSH (03/19/2017 1:51 PM CDT) athologist Signature TSH, Sensitive 2.72 0.30 - [facility] 4.50 [facility] uIU/ml Specimen Anatomical Collection Method Collection Time Receive d Time (Source) Location / / Volume Laterality 03/19/2017 1:51 PM 7 1:56 CDT PM CDT Narrative [facility] - 03/19/2017 8:02 PM C DT Performed at [facility], [address] [place] [address] ??[address] Miya Shin MD LAB_1 Performing Organization Address [facility] Phon e Number [facility] [phone] Insulin Antibodies Panel (03/19/2017 1:51 PM CDT) Component Value Ref Test Analysis Performed At [facility] Range Method Time Signature Insulin <0.4 [facility] [...] arbitrary. Kronus Units = U/mL [address] [place] [address] www.[employer], Yves Hopper MD, Lab. Director Specimen Anatomical Collection Method Collection Time Receive d Time (Source) Location / / Volume Laterality 03/19/2017 1:51 PM 7 1:55 CDT PM CDT Narrative [facility] - 03/22/2017 5:24 PM C DT Performed by [employer], [address] [place], [place] [address] Miya Shin MD LAB_1 Performing Organization Address [facility] Phon e Number [facility] [phone] Islet Cell IGG Antibody (03/19/2017 1:51 PM CDT) Component Value Ref Test Analysis Performed At [facility] Range Method Time Signature Islet Cell <1:4 [...] [facility] ?? Laboratories. See Compliance Statement A: [employer]/ [address] [place] [address] www.[employer], Yves Hopper MD, Lab. Director Specimen Anatomical Collection Method Collection Time Receive d Time (Source) Location / / Volume Laterality 03/19/2017 1:51 PM 7 1:55 CDT PM CDT Narrative [facility] - 03/20/2017 7:40 PM C DT Performed by [employer], Roberto [employer] mani [place], [place] [address] Miya Shin MD LAB_1 Performing Organization Address [facility] Phon e Number [facility] [phone] C-Peptide, Serum or Plasma (03/19/2017 1:51 PM CDT) [facility] Method Time Signature C-Peptide 1.1 [facility] Reference range: 0.8 to 3.5 [facility] Unit: ng/mL C-Peptide (NOTE) [facility] INTERPRETIVE INFORMATION: C-Peptide, Serum or Plasma LABORATORIES Reference Interval applies to fasting specimens. To convert to ?? nmol/L, multiply by 0.33 [address] [place] [address] www.[employer], Yves Hopper MD, Lab. Director Specimen Anatomical Collection Method Collection Time Receive d Time (Source) Location / / Volume Laterality 03/19/2017 1:51 PM 7 1:55 CDT PM CDT Narrative [facility] - 03/20/2017 1:10 PM C DT Performed by [employer], [address] [place], [place] [address] Miya Shin MD LAB_1 Performing Organization Address City/[facility] Code Phon e Number [employer] [facility] [phone] Glutamic Acid Decarboxylase Antibody (03/19/2017 1:51 PM CDT) Component Value Ref Test Analysis Performed At [facility] Range Method Time Signature Glutamic Acid <5.0 [facility] Decarbox[facility] Reference range: 0.0 to 5.0 LABORATORIES Antibody Unit: IU/mL Glutamic Acid (NOTE) [facility] Dec[facility]box[facility] INTERPRETIVE INFORMATION: ??Glutamic Acid Decarb oxylase Antibody LABORATORIES Antibody A value greater than 5.0 IU/mL is considered pos itive for Glutamic ?? Acid Decarboxylase Antibody. [address] [place] [address] www.[employer], Yves Hopper MD, Lab. Director Specimen Anatomical Collection Method Collection Time Receive d Time (Source) Location / / Volume Laterality 03/19/2017 1:51 PM 7 1:55 CDT PM CDT Narrative [facility] - 03/21/2017 4:16 PM C DT Performed by [employer], [address] [place], [place] [address] Miya Shin MD LAB_1 Performing Organization Address City/[facility] Phon e Number [employer] [facility] [phone] documented in this encounter Visit Diagnoses Diagnosis Uncontrolled diabetes mellitus type 2 wi thout complications, unspecified long term care phlebotomist insulin use status documented in this encounter Care Teams High Speed Warper Tender Relationship Specialty Start Date End Date Elyse Paredes MD PCP - General Family Practice 03/19/17 [address] [place] [address] documented as of this encounter
--- OUTSIDE RECORDS SUMMARY | 2022-07-09 14:38 | XMS_ITS | Encounter Summary ---
:1950 Author Organization [facility] Address [address] [place] [address] Care Team Providers Name Role Phone Elyse [...] Team Description 08/13/2022 Appointment Radiology Denise Aguirre, INTELLIGENCE GROUP SUPERVISOR, BEHAVIORAL HEALTH SPECIALIST [address] [place], [place] [address] (Wo rk) 08/13/2022 Appointment Hematology and Oncology Denise Aguirre APRN, BEHAVIORAL HEALTH SPECIALIST [address] [place], [place] [address] (Wo rk) documented as of this encounter Visit Diagnoses Not on filedocumented in this encounter Care Teams Auger Mill Operator Relationship Specialty Start Date End Date Elyse Paredes MD PCP - General Family Practice 03/19/17 [address] [place], [place] [id number] documented as of this encounter
--- OUTSIDE RECORDS SUMMARY | 2022-07-09 14:38 | XMS_ITS | Encounter Summary ---
:1950 Author Organization [employer] Address [address] [place] [address] Care Team Providers Name Role Phone Elyse Paredes MD Primary Care Provider Reason for Visit Reason Comments Blood Glucose Readings Encounter Details Date Type Department Care Team Description 09/24/2017 Telephone Specialty Center [address] Gabrielle Morris, Blood Glucose Readings [facility]ology [facility] O AND M SUPERVISOR, DNP [facility] [address] [place] [address] [place], [place] [phone] [facility] Social History Tobacco Use [...] time. Emily Zamora RN 09/28/2017, 9:27 AM INA REFINERY OPERATOR Lety Matthews - 09/27/2017 4:31 PM CST Jeri returned call. States if she is unable to answer she would like a detailed message left on her voicemail. Donna Jha RN - 09/27/2017 4:19 PM CST Left a message for Jeri the nurse to call back. Donna Mcdermott RN Gabrielle Pandey APRN, HAND DRILLER - 09/27/2017 3:56 PM CST Diabetes medication [...] the Metformin Thank you. Gabrielle Morris APRN, BUDGET ENGINEER-C 09/27/2017 4:02 PM Elda Spicer - 09/27/2017 [...] metformin. Please either call Jeri back at [phone] or Marci at her cell number. Elda [...] 120's to mid-200's Bedtime: Upper-100's to upper-200's Territory Sales Representative unclear as to patient's current diabetes medications. Please find out which medications she is taking at this time . I will then be able to make recommendations about adjustments in dosing. Thank you. Gabrielle Morris APRN, BUDGET ENGINEER-C 09/24/2017 11:57 AM Mora Pisano - 09/24/2017 [...] After cardiac rehab 233 11 PM 199 INA REFINERY OPERATOR documented in this encounter Plan of Treatment Upcoming Encounters Date Type Specialty Care Team Description 08/13/2022 Appointment Radiology Denise Aguirre, O AND M SUPERVISOR, HAND DRILLER [address] [place], [place] [address] (Wo rk) 08/13/2022 Appointment Hematology and Oncology Denise Aguirre APRN, HAND DRILLER [address] [place], [place] [address] (Wo rk) documented as [...] on filedocumented in this encounter Care Teams Transportation Superintendent Relationship Specialty Start Date End Date Elyse Paredes MD PCP - General Family Practice 03/19/17 [address] [place] [address] documented as of this encounter
--- OUTSIDE RECORDS SUMMARY | 2022-07-09 14:39 | XMS_ITS | Encounter Summary ---
:1950 Author Organization [email or web address] Address [address] [place] [address] Care Team Providers Name Role Phone Unassigned, Provider Primary Care Provider Unavailable Reason for Visit Procedure/Equipment (Routine) - Incomplete Specialty Diagnoses / Procedures Referred By Contact Refer red To Contact Procedures Provider, Foreign Images Foreign Image(S) Mammogram [address] [place] [address] Referral ID Status Reason Start Date Expiration Date Visits V isits Requested Authorized [id number] Incomplete 07/19/2018 10/18/2019 1 1 Encounter Details Date Type Department Care Team Description 07/27/2013 Ancillary Procedure [facility] Radiology PACS Provider, Foreign [address] [place] [address] [address] [place] [address] Social History Tobacco Use Types Packs/Day Years Used Date Smoking Tobacco: Former Cigarettes Quit : 08/02/1981 Alcohol Use Standard Drinks/Week Comments Not Asked 0 (1 standard drink = 0.6 oz pure alcoho l) Sex Assigned at Date Recorded Not on file documented as of this encounter Plan of Treatment Upcoming Encounters Date Type Specialty Care Team Description 08/13/2022 Appointment Radiology Denise Aguirre APRN, SEAT NAILER [address] [place], [place] [address] (Wo rk) 08/13/2022 Appointment Hematology and Oncology Denise Aguirre APRN, SEAT NAILER [address] [place], [place] [address] (Wo rk) documented as of this encounter Procedures Procedure Name Priority Date/Time Associated Diagnosis Comme nts FOREIGN IMAGE(S) Routine 07/27/2013 12:00 AM Resu lts for this MAMMOGRAM BILATERAL GRAPHICS ARTIST procedur e are in SCREENING the results section. documented in this encounter Results Foreign Image(S) Mammogram Bilateral Screening (07/27/2013 12:00 AM GRAPHICS ARTIST) Specimen (Source) Anatomical Location Collection Method / [...] on filedocumented in this encounter Care Teams Double Cutter Relationship Specialty Start Date End Date Unassigned, Provider PCP - General 06/17/00 03/18/[address] [place] [address] documented as of this encounter
--- OUTSIDE RECORDS SUMMARY | 2022-07-09 14:39 | XMS_ITS | Encounter Summary ---
:1950 Author Organization [employer] Address [address], [place] [address] Care Team Providers Name Role Phone Unassigned, Provider Primary Care Provider Unavailable Encounter Details Date Type Department Care Team Description 12/10/2000 Office Visit [facility] MUNOLOGICAL FIND OTHR OR UNSPEC; MD Rosamaria JOINT PAIN-STEVEN LEIGH [place] Social History Tobacco Use Types Packs/Day Years [...] woman seen at the request of Dr. Elyse Paredes. The patient has had some bilateral [...] regular basis. 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 O: Overweight middle-aged [...] SYNDROME cc: MD Elyse Kincaid MD - [facility], [address] [place] [address] documented in this encounter Plan of Treatment Upcoming Encounters Date Type Specialty Care Team Description 08/13/2022 Appointment Radiology Denise Aguirre APRN, PROGRAM INSTRUCTOR [address] [place], [place] [address] (Wo rk) 08/13/2022 Appointment Hematology and Oncology Denise Aguirre APRN, PROGRAM INSTRUCTOR [address] [place], [place] [address] (Wo rk) documented as of this encounter Visit Diagnoses Diagnosis Other and unspecified nonspecific immuno logical findings Pain in joint, multiple sites documented in this encounter Care Teams Linoleum Tile Layer Relationship Specialty Start Date End Date Unassigned, Provider PCP - General 06/17/00 03/18/17 [address] [place] [address] documented as of this encounter
--- OUTSIDE RECORDS SUMMARY | 2022-07-09 14:39 | XMS_ITS | Encounter Summary ---
:1950 Author Organization [facility] Address [address] [place] [address] Care Team Providers Name Role Phone Unassigned, Provider Primary Care Provider Unavailable Encounter Details Date Type Department Care Team Description 07/27/2013 Orders Only [facility] MD Randee Security Contact Bill [address] [place] [address] Mailstop [id number] [phone] (Wo rk) Social History Tobacco Use Types [...] Description 08/13/2022 Appointment Radiology Denise Aguirre APRN, COMMUNITY ARTS CENTRE MANAGER [address] [place], [place] [address] (Wo rk) 08/13/2022 Appointment Hematology and Oncology Denise Aguirre APRN, COMMUNITY ARTS CENTRE MANAGER [address] [place], [place] [address] (Wo rk) documented as of this encounter Visit Diagnoses Not on filedocumented in this encounter Care Teams Splicing Supervisor Relationship Specialty Start Date End Date Unassigned, Provider PCP - General 06/17/00 03/18/17 [address] [place] [address] documented as of this encounter
--- OUTSIDE RECORDS SUMMARY | 2022-07-09 14:39 | XMS_ITS | Encounter Summary ---
:1950 Author Organization [employer] Address [address] [place] [address] Care Team Providers Name Role Phone Unassigned, Provider Primary Care Provider Unavailable Reason for Visit Procedure/Equipment (Routine) - Incomplete Specialty Diagnoses / Procedures Referred By Contact Refer red To Contact Procedures Provider, Foreign Images Foreign Image(S) Mammogram [address] [place] [address] Referral ID Status Reason Start Date Expiration Date Visits V isits Requested Authorized [id number] Incomplete 07/19/2018 10/18/2019 1 1 Encounter Details Date Type Department Care Team Description 08/13/2011 Ancillary Procedure [facility] Radiology PACS Provider, Foreign [address] [place] [address] [address] [place] [address] Social History Tobacco Use Types Packs/Day Years Used Date Smoking Tobacco: Former Cigarettes Quit : 08/02/1981 Alcohol Use Standard Drinks/Week Comments Not Asked 0 (1 standard drink = 0.6 oz pure alcoho l) Sex Assigned at Date Recorded Not on file documented as of this encounter Plan of Treatment Upcoming Encounters Date Type Specialty Care Team Description 08/13/2022 Appointment Radiology Denise Aguirre, LEAD LOADER, RESIDENT CARE ASSOCIATE [address] [place], [place] [address] (Wo rk) 08/13/2022 Appointment Hematology and Oncology Denise Aguirre APRN, RESIDENT CARE ASSOCIATE [address] [place], [place] [address] (Wo rk) documented as of this encounter Procedures Procedure Name Priority Date/Time Associated Diagnosis Comme nts FOREIGN IMAGE(S) Routine 08/13/2011 12:00 AM Resu lts for this MAMMOGRAM BILATERAL GEAR HOBBER SET UP OPERATOR procedur e are in SCREENING the results section. documented in this encounter Results Foreign Image(S) Mammogram Bilateral Screening (08/13/2011 12:00 AM GEAR HOBBER SET UP OPERATOR) Specimen (Source) Anatomical Location Collection Method [...] on filedocumented in this encounter Care Teams Parts Designer Relationship Specialty Start Date End Date Unassigned, Provider PCP - General 06/17/00 03/18/[address] [place] [address] documented as of this encounter
--- OUTSIDE RECORDS SUMMARY | 2022-07-09 14:39 | XMS_ITS | Encounter Summary ---
:1950 Author Organization [facility] Address [address] [place] [address] Care Team Providers Name Role Phone Unassigned, Provider Primary Care Provider Unavailable Encounter Details Date Type Department Care Team Description 11/01/2013 Orders Only [facility] Claims MD Randee Security Contact Bill [address] [place] [address] Mailstop [id number] [phone] (Wo rk) Social History Tobacco Use Types [...] Description 08/13/2022 Appointment Radiology Denise Aguirre APRN, CHECKING CLERK [address] [place], [place] [address] (Wo rk) 08/13/2022 Appointment Hematology and Oncology Denise Aguirre APRN, CHECKING CLERK [address] [place], [place] [address] (Wo rk) documented as of this encounter Visit Diagnoses Not on filedocumented in this encounter Care Teams Apartment Rental Clerk Relationship Specialty Start Date End Date Unassigned, Provider PCP - General 06/17/00 03/18/17 [address] [place] [address] documented as of this encounter
--- OUTSIDE RECORDS SUMMARY | 2022-07-09 14:39 | XMS_ITS | Encounter Summary ---
:1950 Author Organization [employer] Address [address] [place] [address] Care Team Providers Name Role Phone Elyse [...] Team Description 08/13/2022 Appointment Radiology Denise Aguirre, CLIENT MANAGER LARGE LAW, EMERGENCY ROOM ORDERLY [address] [place], [place] [address] (Wo rk) 08/13/2022 Appointment Hematology and Oncology Denise Aguirre APRN, EMERGENCY ROOM ORDERLY [address] [place], [place] [address] (Wo rk) documented as [...] 08/13/2011 12:00 AM Result s for this MEMBERSHIP SALES REPRESENTATIVE procedure are i n the results section . documented in this encounter Results BREAST IMAGING (08/13/2011 12:00 AM MEMBERSHIP SALES REPRESENTATIVE) Anatomical Region Laterality Modality Breast Other Specimen (Source) Anatomical Location Collection Method / Collectio n Time Received Time / Laterality Volume 08/13/2011 Narrative This result has an attachment that is no t available. Phy No Primary/Referring RAD_BI documented in this encounter Visit Diagnoses Not on filedocumented in this encounter Care Teams Assembler Ping Pong Table Relationship Specialty Start Date End Date Elyse Paredes MD PCP - General Family Practice 03/19/17 [address] [place] [address] documented as of this encounter
--- OUTSIDE RECORDS SUMMARY | 2022-07-09 14:39 | XMS_ITS | Encounter Summary ---
:1950 Author Organization [employer] Address [address] [place] [address] Care Team Providers Name Role Phone Unassigned, Provider Primary Care Provider Unavailable Reason for Visit Reason Comments KNEE PAIN Encounter Details Date Type Department Care Team Description 04/04/2011 Office Visit [facility] Horace rojas Knee injury (Primary Dx); [address] [place] [address] Social History Tobacco Use Types [...] knee was done in December 2009 at [facility]. The right knee feels fine. She [...] Description 08/13/2022 Appointment Radiology Denise Aguirre, GRIFFIN, PARTS SALES REPRESENTATIVE [address] [place], [place] [address] (Wo rk) 08/13/2022 Appointment Hematology and Oncology Denise Aguirre APRN, PARTS SALES REPRESENTATIVE [address] [place], [place] [address] (Wo rk) documented as [...] foot documented in this encounter Care Teams Senior Quality Manager Relationship Specialty Start Date End Date Unassigned, Provider PCP - General 06/17/00 03/18/[address] [place] [address] documented as of this encounter
--- OUTSIDE RECORDS SUMMARY | 2022-07-09 14:39 | XMS_ITS | Encounter Summary ---
:1950 Author Organization [facility] Address [address] [place] [address] Care Team Providers Name Role Phone Unassigned, Provider Primary Care Provider Unavailable Reason for Visit Procedure/Equipment (Routine) - Incomplete Specialty Diagnoses / Procedures Referred By Contact Refer red To Contact Procedures Provider, Foreign Images Foreign Image(S) Mammogram [address] [place] [address] Referral ID Status Reason Start Date Expiration Date Visits V isits Requested Authorized [id number] Incomplete 07/19/2018 10/18/2019 1 1 Encounter Details Date Type Department Care Team Description 03/27/2015 Ancillary Procedure [facility] Radiology PACS Provider, Foreign [address] [place] [address] [address] [place] [address] Social History Tobacco Use Types Packs/Day Years Used Date Smoking Tobacco: Former Cigarettes Quit : 08/02/1981 Alcohol Use Standard Drinks/Week Comments Not Asked 0 (1 standard drink = 0.6 oz pure alcoho l) Sex Assigned at Date Recorded Not on file documented as of this encounter Plan of Treatment Upcoming Encounters Date Type Specialty Care Team Description 08/13/2022 Appointment Radiology Denise Aguirre APRN, ESCROW SECRETARY [address] [place], [place] [address] (Wo rk) 08/13/2022 Appointment Hematology and Oncology Denise Aguirre APRN, ESCROW SECRETARY [address] [place], [place] [address] (Wo rk) documented as [...] filedocumented in this encounter Care Teams Medical Appointment Clerk Relationship Specialty Start Date End Date Unassigned, Provider PCP - General 06/17/00 03/18/[address] [place] [address] documented as of this encounter
--- OUTSIDE RECORDS SUMMARY | 2022-07-09 14:39 | XMS_ITS | Encounter Summary ---
:1950 Author Organization [facility] Address [address], [place] [address] Care Team Providers Name Role Phone Unassigned, Provider Primary Care Provider Unavailable Reason for Visit Reason Comments SORE THROAT, Encounter Details Date Type Department Care Team Description 03/31/2009 Office Visit [facility] Strepto coccal Sore Throat Clinic (Primary Dx) [address] [place] [address] Social History Tobacco Use Types [...] scratchy and severe. PMH Strep Exposure? none Starr Exposure? none Strep History? No ROS Other [...] results: Rapid Strep: Negative Throat Culture: pending Starr: Not done Assessment Strep pharyngitis per exam Plan RX: Pen V - use as directed Throat culture pending F/u if no improvement or worsening symptoms AVS printed and given to pt. See patient education and prescribed medications. Jeimy Feldman PA-C documented in this encounter Plan of Treatment Upcoming Encounters Date Type Specialty Care Team Description 08/13/2022 Appointment Radiology Denise Aguirre, STEAMBOAT PILOT, SOUND PERSON [address] [place], [place] [address] (Wo rk) 08/13/2022 Appointment Hematology and Oncology Denise Aguirre APRN, SOUND PERSON [address] [place], [place] [address] (Wo rk) documented as [...] THROAT CULTURE ONLY (03/31/2009 4:22 PM CDT) [facility] gist Method Time Signature Grp A Culture Negative [facility] Final Specimen Anatomical Collection Method Collection Time Receive d Time (Source) Location / / Volume Laterality 03/31/2009 4:22 PM 9 4:25 CDT PM CDT Jeimy Kang PA-C LAB_1 Performing Organization Address City/[facility] Code Phon e Number Simplify [phone] [employer] [address] [place] [phone] (ABNORMAL) STREP GRP A, RAPID SCREEN (03/31/2009 3:47 PM CDT) [facility] Method Time Signature Grp A Rapid Negative [facility] Screen Grp A Culture Cancelled by [facility] Final provider (A) Specimen Anatomical Collection Method Collection Time Receive d Time (Source) Location / / Volume Laterality 03/31/2009 3:47 PM 9 4:01 CDT PM CDT Jeimy Kang PA-C LAB_1 Performing Organization Address City/[facility] Phon e Number Simplify [phone] [employer] [address] [place] [phone] documented in this encounter Visit Diagnoses Diagnosis Streptococcal sore throat - Primary documented in this encounter Care Teams Pre Billing Specialist Relationship Specialty Start Date End Date Unassigned, Provider PCP - General 06/17/00 03/18/17 [address] [place] [address] documented as of this encounter
--- OUTSIDE RECORDS SUMMARY | 2022-07-09 14:39 | XMS_ITS | Encounter Summary ---
:1950 Author Organization [facility] Address [address] [place] [address] Care Team Providers Name Role Phone Unassigned, Provider Primary Care Provider Unavailable Encounter Details Date Type Department Care Team Description 11/23/2002 Office Visit External to Unknown, [facility] [address] [place], [place] [address] (Wo rk) Social History Tobacco Use Types Packs/Day Years Used Date Smoking Tobacco: Never Assessed Sex Assigned at Date Recorded Not on file documented as of this encounter Procedure Notes Unknown, Physician - 11/23/2002 12:00 AM CDTAssociated Order(s): MAMMOGRAM SC documented in this encounter Plan of Treatment Upcoming Encounters Date Type Specialty Care Team Description 08/13/2022 Appointment Radiology Denise Aguirre APRN, CANE WEIGHER [address] [place], [place] [address] (Wo rk) 08/13/2022 Appointment Hematology and Oncology Denise Aguirre APRN, CANE WEIGHER [address] [place], [place] [address] (Wo rk) documented as [...] on filedocumented in this encounter Care Teams Propeller Mechanic Relationship Specialty Start Date End Date Unassigned, Provider PCP - General 06/17/00 03/18/[address] [place] [address] documented as of this encounter
--- OUTSIDE RECORDS SUMMARY | 2022-07-09 14:39 | XMS_ITS | Encounter Summary ---
:1950 Author Organization [facility] Address [address] [place] [address] Care Team Providers Name Role Phone Unassigned, Provider Primary Care Provider Unavailable Encounter Details Date Type Department Care Team Description 05/19/2002 Orders Only External to Unknown, [facility] [address] [place], [place] [address] (Wo rk) Social History Tobacco Use Types Packs/Day Years Used Date Smoking Tobacco: Never Assessed Sex Assigned at Date Recorded Not on file documented as of this encounter Procedure Notes Elyse Paredes - 05/19/2002 12:00 AM CDTAssociated Order(s): ULTRASOUND documented in this encounter Plan of Treatment Upcoming Encounters Date Type Specialty Care Team Description 08/13/2022 Appointment Radiology Denise Aguirre APRN, HEAD OF ACQUISITIONS [address] [place], [place] [address] (Wo rk) 08/13/2022 Appointment Hematology and Oncology Denise Aguirre APRN, HEAD OF ACQUISITIONS [address] [place], [place] [address] (Wo rk) documented as [...] on filedocumented in this encounter Care Teams Well Drill Operator Relationship Specialty Start Date End Date Unassigned, Provider PCP - General 06/17/00 03/18/[address] [place] [address] documented as of this encounter
--- OUTSIDE RECORDS SUMMARY | 2022-07-09 14:39 | XMS_ITS | Encounter Summary ---
:1950 Author Organization [facility] Address [address] [place] [address] Care Team Providers Name Role Phone Elyse [...] Team Description 08/13/2022 Appointment Radiology Denise Aguirre, POLICY INTERN, CONTROL CENTER OPERATOR [address] [place], [place] [address] (Wo rk) 08/13/2022 Appointment Hematology and Oncology Denise Aguirre APRN, CONTROL CENTER OPERATOR [address] [place], [place] [address] (Wo rk) documented as [...] on filedocumented in this encounter Care Teams Transfer Car Operator Relationship Specialty Start Date End Date Elyse Paredes MD PCP - General Family Practice 03/19/17 [address] [place] [address] documented as of this encounter
--- OUTSIDE RECORDS SUMMARY | 2022-07-09 14:39 | XMS_ITS | Encounter Summary ---
:1950 Author Organization [employer] Address [address] [place] [address] Care Team Providers Name Role Phone Elyse [...] Team Description 08/13/2022 Appointment Radiology Denise Aguirre, FARMWORKER FIELD CROP, RADIO PRODUCER [address] [place], [place] [address] (Wo rk) 08/13/2022 Appointment Hematology and Oncology Denise Aguirre, FARMWORKER FIELD CROP, RADIO PRODUCER [address] [place], [place] [address] (Wo rk) [...] filedocumented in this encounter Care Teams Veneer Sorter Relationship Specialty Start Date End Date Elyse Paredes MD PCP - General Family Practice 03/19/17 [address] [address] documented as of this encounter
--- OUTSIDE RECORDS SUMMARY | 2022-07-09 14:39 | XMS_ITS | Encounter Summary ---
:1950 Author Organization [employer] Address [address], [place] [address] Care Team Providers Name Role Phone Unassigned, Provider Primary Care Provider Unavailable Encounter Details Date Type Department Care Team Description 04/04/2011 [facility] Knee injury [address] [place] [address] Social History Tobacco Use Types Packs/Day Years [...] Description 08/13/2022 Appointment Radiology Denise Aguirre APRN, SET UP MECHANIC [address] [place], [place] [address] (Wo rk) 08/13/2022 Appointment Hematology and Oncology Denise Aguirre APRN, SET UP MECHANIC [address] [place], [place] [address] (Wo rk) documented as [...] foot documented in this encounter Care Teams Lathe Machinist Relationship Specialty Start Date End Date Unassigned, Provider PCP - General 06/17/00 03/18/[address] [place] [address] documented as of this encounter
--- OUTSIDE RECORDS SUMMARY | 2022-07-09 14:39 | XMS_ITS | Encounter Summary ---
:1950 Author Organization [employer] Address [address] [place] [address] Care Team Providers Name Role Phone Unassigned, Provider Primary Care Provider Unavailable Reason for Visit Reason Onset Date Comments BACK PAIN 05/09/2004 Encounter Details Date Type Department Care Team Description 05/09/2004 Telephone Careline Erick Slade RN BACK PAIN [address] [place], [place] [address] Social History Tobacco Use Types [...] Description 08/13/2022 Appointment Radiology Denise Aguirre APRN, HIM DIRECTOR [address] [place], [place] [address] (Wo rk) 08/13/2022 Appointment Hematology and Oncology Denise Aguirre APRN, HIM DIRECTOR [address] [place], [place] [address] (Wo rk) documented as of this encounter Visit Diagnoses Not on filedocumented in this encounter Care Teams Router Operator Pin Relationship Specialty Start Date End Date Unassigned, Provider PCP - General 06/17/00 03/18/17 [address] [place] [address] documented as of this encounter
[2022-07-09 17:47] LABS: Microalbumin Creatinine Ratio 30 mg/g (0-30); Microalbumin Urine 4 mg/dL
== END 2022-07-09 14:08 | disposition home or self-care (01) ==
LOC: NFLDREF 14:08
PROVIDERS: PCP Internal Medicine; Visit Provider Internal Medicine
DX: E11.9 Type 2 diabetes mellitus without complications (principal); E66.01 Morbid (severe) obesity due to excess calories; E78.5 Hyperlipidemia, unspecified; I10 Essential (primary) hypertension
CPT/HCPCS: 82043; 82570

== ENCOUNTER 2022-09-23 11:55 | Emergency (ER) | payer MEDICARE, SELFPAY ==
[2022-09-23 12:13] VITALS: BP 156/77; PULSE 62; RESP 18; TEMP 36.1; O2SAT 96; BMI 48.5
--- NOTE | 2022-09-23 12:24 | ED_ITS ---
HPI - Extremity Injury (Lower) General Time Seen by Provider: 12:24 Date Seen: 09/23/22 Chief Complaint: Extremity Pain/Injury, Lower Stated Complaint: Poss blood clot in right leg Time Seen by Provider: 09/23/22 12:24 Source: patient, RN notes reviewed and old records reviewed Mode of arrival: ambulatory Limitations: no limitations History of Present Illness HPI Narrative: Marci is a very pleasant 72-year-old female with a history ofTAVR procedure in 2017 with bovine aortic valve replacement, Watchman procedure 3 weeks ago at [facility] who comes to the emergency room for evaluation of right calf pain. Patient notes that her stay for the watchman procedure was only supposed to be overnight but ended up being 6-7 days after bleeding complications. She was taken off of warfarin and is now on Plavix and aspirin daily. She has not had fever or chills. She noticed that there was some calf tenderness in the past 24 hours and today felt a lump on the inner aspect of her right calf. It is tender to the touch. He has not had history of DVT or PE in the past. She denies shortness of breath. Denies chest pain. Related Data Home Medications Medication Instructions Recorded Confirmed aspirin 81 mg tablet,delayed 81 mg PO QDAY 05/05/22 09/23/22 release (Adult Aspirin Regimen) tamoxifen 20 mg tablet 20 mg PO QDAY 05/05/22 09/23/22 evolocumab 140 mg/mL subcutaneous 140 mg subcut Q2W 09/10/22 09/23/22 pen injector amiodarone 200 mg tablet 200 mg PO BID 09/14/22 09/23/22 clopidogrel 75 mg tablet (Plavix) 75 mg PO QDAY 09/14/22 09/23/22 losartan 50 mg tablet 50 mg PO DAILY 09/23/22 09/23/22 Previous Rx's Medication Instructions Recorded allopurinol 100 mg tablet 100 mg PO QDAY #90 tabs 02/27/22 metoprolol succinate 25 mg 25 mg PO QDAY Hypertension #90 tabs 02/27/22 tablet,extended release 24 hr venlafaxine 37.5 mg 37.5 mg PO QDAY Depression #90 caps 02/27/22 capsule,extended release 24 hr amoxicillin 500 mg capsule 2,000 mg PO ONCE Dental Procedure 07/09/22 #4 caps insulin lispro 100 unit/mL 5 - 10 unit (0.05 - 0.1 mL) subcut 07/17/22 subcutaneous pen TID Diabetes #15 mL semaglutide 1 mg/dose (4 mg/3 mL) 1 mg (0.75 mL) subcut QWEEK 08/19/22 subcutaneous pen injector (Ozempic) Diabetes #3 mL blood sugar diagnostic (Accu-Chek #50 ea 08/24/22 Guide test strips) insulin glargine 100 unit/mL (3 60 unit (0.6 mL) subcut QPM 09/14/22 mL) subcutaneous pen (Lantus Diabetes #45 mL Solostar U-100 Insulin) apixaban 5 mg tablet (Eliquis) 10 mg PO BID #60 tabs 09/23/22 Allergies Allergy/AdvReac Type Severity Reaction Status Date / Time erythromycin base Allergy Intermediate Rash Verified 09/23/22 12:18 lisinopril Allergy Intermediate Cough Verified 09/23/22 12:18 metformin Allergy Unknown Vomiting Verified 09/23/22 12:18 statins Allergy Severe Muscle Pain Uncoded 09/14/22 15:10 Review of Systems Status of ROS: Reports: 6 or more systems reviewed and unremarkable except as noted in History and below Const: Denies: fever or chills Cardio: Denies: chest pain or shortness of breath with exertion Resp: Denies: shortness of breath or cough GI: Denies: abdominal pain or vomiting PFSH PFSH Medical History Calculus of kidney Cervical radiculopathy Depression History of malignant neoplasm of breast Hyperlipidemia Hypertension Presence of Watchman left atrial appendage closure device Surgical History History of bilateral knee replacement S/P coronary artery stent placement Status post transcatheter aortic valve replacement Status post transcatheter aortic valve replacement (TAVR) using bioprosthesis Social History Smoking Status: Never smoker Do you use any of these nicotine containing products: None Second hand tobacco smoke exposure: No How often do you have a drink containing alcohol: never How often do you have six or more drinks on one occasion: Never AUDIT-C Alcohol total score: 0 Non-prescribed substance use: denies use Little interest or pleasure in doing things: not at all Feeling down, depressed, or hopeless: several days service: No Exam Narrative: Exam Narrative: Patient is alert and oriented and in no acute distress. She is pleasant and talkative. No she shortness of breath noted. Heart with a regular rate and rhythm. You can hear a holosystolic murmur approximately 2 to 3/6. No rub. Lungs are clear in all lung silver. Lower extremities show scant peripheral edema. Patient has no calf tenderness. She has a firm area of mild tenderness noted on the mid medial aspect of the calf this is approximately an area of 1 x 3 cm. Do not note any fluctuance and there is no erythema. Const: Vital Signs, click to edit/add: Vital Signs - 24 hr 09/23/22 12:13 Temperature 97.0 F L Pulse Rate [Right Pulse Oximeter] 62 Respiratory Rate 18 Blood Pressure [Ri ght Upper Arm] 156/77 H Pulse Oximetry 96 Oxygen Delivery Me thod Room Air Documenting provider has reviewed patient's vital signs: yes Course Course Hospital Course: Obtain lower extremity Doppler. Reevaluation(s) Reevaluation #1: Patient unfortunately has a DVT in the right calf. Will add CBC, basic, an INR to current labs. Plan on starting anticoagulant pending Cardiology consultation. Consultations Consultation #1: Spoke with dispatcher maintenance from [facility]. I wanted to make sure that patient did not have a contraindication to warfarin or the novel anticoagulants given recent Watchman procedure in discontinuance of warfarin. Patient had been placed on Plavix and aspirin. At the pleasure of speaking with a dispatcher maintenance and he notes no contraindication. Does suggest Eliquis and continuing aspirin but may discontinue Plavix. Vital Signs Vital signs: Initial Vital Signs Temperature 97.0 F L 09/23/22 12:13 Temperature Source Temporal Artery Scan 09/23/22 12:13 Pulse Rate 62 09/23/22 12:13 Respiratory Rate 18 09/23/22 12:13 Blood Pressure 156/77 H 09/23/22 12:13 Blood Pressure Mean 103 09/23/22 12:13 Blood Pressure Position Sitting 09/23/22 12:13 Pulse Oximetry 96 09/23/22 12:13 Oxygen Delivery Method 09/23/22 12:13 Vital Signs Temperature 97.0 F L 09/23/22 12:13 Pulse Rate 62 09/23/22 12:13 Respiratory Rate 18 09/23/22 12:13 Blood Pressure 156/77 H 09/23/22 12:13 Pulse Oximetry 96 09/23/22 12:13 Oxygen Delivery Method 09/23/22 12:13 Temperature 97.0 F L 09/23/22 12:13 Pulse Rate 62 09/23/22 12:13 Respiratory Rate 18 09/23/22 12:13 Blood Pressure 156/77 H 09/23/22 12:13 Pulse Oximetry 96 09/23/22 12:13 Oxygen Delivery Method 09/23/22 12:13 MDM - Extremity Injury (Lower) MDM Narrative Medical decision making narrative: 1. DVT -patient has developed DVT on Plavix and aspirin. I did speak to Cardiology to ensure no contraindication after patient's watchman's procedure as she has been taken off Coumadin at that time. Indeed, it is suggested that patient be on Eliquis and this has been sent to the pharmacy. 10 mg p.o. b.i.d. x7 days followed by 5 mg b.i.d.. At this time patient has no hypoxia, chest pain or new shortness of breath to suggest need for CT and/or PE evaluation. We did talk about PE and patient should return for chest pain, shortness of breath and onset of new symptoms. Patient's DVT limited to calf and is not above the knee and of course this distress decreases chances of embolism. We spoke of risk of bleeding with Eliquis. 2. Disposition-home at this time. Follow-up with primary MD in the next 2 weeks for recheck. Return to the ED as needed. Medical Records Attestation: I reviewed the patient's medical records. Lab Data Attestation: I reviewed the patient's lab results. Labs: Lab Results 09/23/22 09/23/22 09/23/22 Range/Units 15:05 15:05 15:05 WBC 7.27 (4.50-11.00) K/uL RBC 3.49 L (4.00-5.20) m/uL Hgb 11.1 L (12.0-16.0) gm/dL Hct 33.7 (33.0-51.0) % MCV 97 (80-100) fL MCH 32 (26-34) pg MCHC 33 (32-36) gm/dL RDW Coeff of Payam 13.3 (11.5-15.5) % Plt Count 171 (140-440) K/uL Neut % (Auto) 67.5 (42.0-72.0) % Lymph % (Auto) 23.0 (20-44) % Labette % (Auto) 5.9 (0.0-11.0) % Eos % (Auto) 2.9 (0.0-7.0) % Baso % (Auto) 0.4 (0.0-3.0) % Neut # (Auto) 4.91 (1.7-7.0) K/uL Lymph # (Auto) 1.67 (0.90-2.90) K/uL Labette # (Auto) 0.40 (0.00-0.90) K/UL Eos # (Auto) 0.21 (0.00-0.50) K/uL Baso # (Auto) 0.03 (0.00-0.30) K/uL INR 1.00 (0.91-1.10) Sodium 139 (135-149) mmol/L Potassium 5.0 (3.6-5.1) mmol/L Chloride 108 (96-114) mmol/L Carbon Dioxide 26 (20-32) mmol/L BUN 16 (7-30) mg/dL Creatinine 1.4 (0.5-1.5) mg/dL Estimated Creat Clear 29.57 Estimated GFR 40 ml/min Glucose 160 H (60-115) mg/dL Calcium 9.2 (8.4-10.6) mg/dL Imaging Data Venous US: Attestation: I have reviewed the pertinent imaging results. Radiologist's impression: Deep veins: Sonographic imaging demonstrates the right common femoral, deep femoral, superficial femoral, popliteal, and the contralateral left common femoral veins to be fully compressible with normal color Doppler blood flow. Echogenic material with partial compressibility and decreased color Doppler flow identified within the right gastrocnemius vein. There is echogenic material throughout the lumen of the right posterior tibial veins with lack of compressibility and lack color Doppler flow consistent with occlusive thrombus. Superficial veins: Greater saphenous vein is fully compressible. No popliteal cyst. IMPRESSION: Deep venous thrombosis identified within the right gastrocnemius and posterior tibial veins. Discharge Plan Discharge Clinical Impression: DVT (deep venous thrombosis) Patient Disposition: Home, Self-Care Condition: Unchanged Additional Instructions: 1. Stop Plavix. You may continue a baby aspirin daily. 2. Start Eliquis tonight. Initial dosing will be 10 mg twice daily for 7 days and then you will be decreased to 5 mg twice daily. 3. Consider compression stocking or support hose. 4. Follow-up with primary MD or clinic over the next 2 weeks for a recheck. 5. Return to the emergency room for worsening symptoms, chest pain, difficulty breathing and as needed. Prescriptions: New Eliquis 5 mg tablet 10 mg PO BID Qty: 60 0RF Rx Instructions: Take 2 tablets or 10 mg twice daily for 7 days. After that you may decreased dosing 2 5 mg twice daily. No Action amoxicillin 500 mg capsule 2,000 mg PO ONCE Qty: 4 1RF evolocumab 140 mg/mL pen injector 140 mg subcut Q2W amiodarone 200 mg tablet 200 mg PO BID clopidogrel [Plavix] 75 mg tablet 75 mg PO QDAY insulin glargine [Lantus Solostar U-100 Insulin] 100 unit/mL (3 mL) insulin pen 60 unit subcut QPM Qty: 45 8RF Label Comments: since home from hospital taking 30 units Rx Instructions: 3 month supply tamoxifen 20 mg tablet 20 mg PO QDAY aspirin [Adult Aspirin Regimen] 81 mg tablet,delayed release (DR/EC) 81 mg PO QDAY (DME) Accu-Chek Guide test strips Strip See Rx Instructions .Route Qty: 50 0RF Rx Instructions: As directed losartan 50 mg tablet 50 mg PO DAILY Label Comments: TAKE 1 TABLET BY MOUTH EVERY DAY FOR HIGH BLOOD PRESSURE allopurinol 100 mg tablet 100 mg PO QDAY Qty: 90 1RF metoprolol succinate 25 mg tablet extended release 24 hr 25 mg PO QDAY Qty: 90 3RF venlafaxine 37.5 mg capsule,extended release 24hr 37.5 mg PO QDAY Qty: 90 3RF insulin lispro 100 unit/mL insulin pen 5 - 10 unit subcut TID Qty: 15 8RF Ozempic 1 mg/dose (4 mg/3 mL) pen injector 1 mg subcut QWEEK Qty: 3 4RF Follow Up/Referrals: Raghu Bae MD [Primary Care Provider] - Stand Alone Forms: MyHealth Info Instructions
--- NOTE | 2022-09-23 12:35 | CRLHL7_ITS ---
For Patients: As a result of the Century Cures Act, medical imaging exams and procedure reports are released immediately into your electronic medical record. You may view this report before your referring provider. If you have questions, please contact your health care provider. INDICATION: Leg pain and swelling. TECHNIQUE: Ultrasound venous duplex lower right extremity. Compression venous exam was performed using pérez-scale, color Doppler, and spectral Doppler analysis. COMPARISON: None. FINDINGS: Deep veins: Sonographic imaging demonstrates the right common femoral, deep femoral, superficial femoral, popliteal, and the contralateral left common femoral veins to be fully compressible with normal color Doppler blood flow. Echogenic material with partial compressibility and decreased color Doppler flow identified within the right gastrocnemius vein. There is echogenic material throughout the lumen of the right posterior tibial veins with lack of compressibility and lack color Doppler flow consistent with occlusive thrombus. Superficial veins: Greater saphenous vein is fully compressible. No popliteal cyst. IMPRESSION: Deep venous thrombosis identified within the right gastrocnemius and posterior tibial veins. Findings discussed with Dr. Brown at 2:55 pm on 09/23/[address] Long. Dictated by Moni Long MD @ 09/23/2022 3:02:52 PM (Electronically Signed)
[2022-09-23 15:11] LABS: Basophils Absolute Auto 0.03 K/uL (0.00-0.30); Basophils Percent Auto 0.4 % (0.0-3.0); Eosinophils Absolute Auto 0.21 K/uL (0.00-0.50); Eosinophils Percent Auto 2.9 % (0.0-7.0); Hematocrit 33.7 % (33.0-51.0); Hemoglobin* 11.1 gm/dL (12.0-16.0); Immature Granulocytes Abs Auto 0.02 K/uL (0.00-0.30); Immature Granulocytes Pct Auto 0.3 %; Lymphocytes Absolute Auto 1.67 K/uL (0.90-2.90); Mean Corpuscular HGB Conc 33 gm/dL (32-36); Mean Corpuscular Hemoglobin 32 pg (26-34); Mean Corpuscular Volume 97 fL (80-100); Monocytes Percent Auto 5.9 % (0.0-11.0); Neutrophils Absolute Auto 4.91 K/uL (1.7-7.0); Neutrophils Percent Auto 67.5 % (42.0-72.0); Platelet Count* 171 K/uL (140-440); RDW Coefficient of Variation % 13.3 % (11.5-15.5); Red Blood Count 3.49 m/uL (4.00-5.20); White Blood Count* 7.27 K/uL (4.50-11.00)
[2022-09-23 15:31] LABS: Slide Review Reflex No
[2022-09-23 15:37] LABS: Prothrombin Time 13.8 Seconds
[2022-09-23 16:17] LABS: Blood Urea Nitrogen* 16 mg/dL (7-30); Calcium* 9.2 mg/dL (8.4-10.6); Carbon Dioxide* 26 mmol/L (20-32); Chloride* 108 mmol/L (96-114); Creatinine* 1.4 mg/dL (0.5-1.5); Est. Creatinine Clearance* 29.57; Estimated Glomerular Filt Rate 40 ml/min; Glucose* 160 mg/dL (60-115); Sodium* 139 mmol/L (135-149)
--- NOTE | 2022-09-24 12:46 | ED.NURSE ---
Patient called today stating that the paperwork that came with her Eliquis stated to not take medication if she has an artificial valve. Spoke with Dr. Brown who prescribed this medication and per Dr. Brown, the brazing machine operator she spoke with yesterday was the one who recommended it. Stated that if patient has concerns that she should reach out to her brazing machine operator to have this discussion. Patient understood and was going to follow up with her brazing machine operator. Encouraged patient to seek medical attention if she develops shortness or breath or chest pain. Patient verbally understood.
== END 2022-09-23 17:14 | disposition home or self-care (01) ==
PROVIDERS: Emergency Provider Family Medicine; PCP Internal Medicine
DX: I82.4Z1 Acute embolism and thrombosis of unspecified deep veins of right distal lower extremity (principal)
CPT/HCPCS: 36415; 80048; 85025; 85610; 93971; 99283; 99284

== ENCOUNTER 2022-10-05 15:33 | Outpatient (CLI) | payer MEDICARE, SELFPAY | END 2022-10-05 15:34 | disposition home or self-care (01) | PROVIDERS: PCP Internal Medicine; Visit Provider Internal Medicine | DX: I82.409 Acute embolism and thrombosis of unspecified deep veins of unspecified lower extremity (principal) | CPT/HCPCS: 85610; 85730 ==

== ENCOUNTER 2023-01-20 13:22 | Outpatient (CLI) | payer MEDICARE, SELFPAY ==
--- OUTSIDE RECORDS SUMMARY | 2023-01-21 01:32 | XMS_ITS | Continuity of Care Document ---
Author Name Unknown Organization [facility] Address [address] [address] [place] [address] Phone Care Team Providers Care Copra Sampler Name Role Phone Falguni Mccain MD Unavailable Unavailable Allergies, Adverse Reactions, Alerts Substance Reaction Status Criticality erythromycin base Rash Active No Informa tion Medications Medication Instructions Dosage Effective Dates (start - stop) Status Comments metformin 500 mg tablet take 2 Tablet by Oral route 2 times every day 2 Tablet - Active hydrochlorothiazide 50 mg tablet take 1 tablet by oral route every day 50 MG - Active Celebrex 200 mg capsule take 1 capsule b y oral route every day 200 MG - Active sertraline 100 mg tablet take 1 tablet b y oral route every day 100 MG - Active Crestor 10 mg tablet take 1 tablet by oral route every day 10 MG - Active losartan 25 mg tablet take 1 Tablet by oral route every day 25 MG - Active Insulin unknown Use as directed - Active aspirin 81 mg Chewable Tab Take 1 tablet by mouth daily - Active Procedures Procedure Date Colonoscopy Flex; Dx (sep Pro) Colorectal Ca Screen Hi Risk I 19 Colonoscopy Flex; W/remov Les- 14 Colonoscopy W/Submucosal Injection Level Iv-surg Path Gross/micro 14 Colonoscopy Flex; W/remov Les- 08 Level Iv-surg Path Gross/micro 08 Advance Directives Directive Yes / No Effective Date File Name No Information Encounters Encounter Description Practice Location Reason(s) For Visit Diagnoses Date Provider Providers Copied on Encounter [facility], [address] [address], [place], [place], [id number], [place] tel:[phone] [facility] No Information 0 Kalyn Montes De Oca . [address] [facility] [address], [place], [place], [id number] , [place]. tel: [phone] [facility], [address] [address], [place], [place], [address], [place] tel:[phone] [facility] No Information 0 Kalyn Montes De Oca . [address] [facility] [address], [address], [place], [place], [address] , [place]. tel: [phone] Referring Provider: Elyse Paredes MD, [address] [place], [address]. tel:[phone] [facility], [address] [address], [place], [place], [address], [place] tel:[phone] [facility] History of colon polyps 9 Bruce Ngo. [address] [facility] [address], [address], [place], [place], [id number] , [place]. tel: [phone] [facility], [address] [address], [place], [place], [address], [place] tel:[phone] [facility] No Information 9 Bruce Ngo. [address] [facility] [address], [address], [place], [place], [address] , [place]. tel: [phone] Referring Provider: Elyse Paredes MD, [address] [place], [address]. tel:[phone] [facility], [address] [address], [place], [address], [place] tel:[phone] [facility] No Information 9 Miko Velasquez. [address] [facility] [address], [address], [place], [place], [address] , [place]. tel: [phone] [facility], [address] [address], [place], [address], [place] tel:[phone] [facility] Polyp-intes/rect/st om-unc BehColon Cancer ScreeningPseudopoly posis Of ColonHemorrhoids NosHemorrhoids NosDiverticulosis Of Colon Apr-0 2-201 4 Dagmar Zamora. [address] [facility], [facility] [address], [place], [place], [id number] , [place]. tel: [phone] Referring Provider: Elyse Paredes MD, [address] [place], [address]. tel:[phone] [facility], [address] [address], [facility] [place] [id number], [place] tel:[phone] [facility] Polyp-intes/rect/st om-unc BehDigestive Neoplasm NosPersonal History Colon PolypsDiverticulosi s Of Colon May- 7200 8 Giancarlo Byrnes. [address] [facility], [facility] [address], [place], [place], [address] , [place]. tel:[phone] Referring Provider: Elyse Paredes MD, [address] [place], [address]. tel:[phone] [facility], [address] [address], [place], [place], [address], [place] tel:[phone] [facility] No Information Jul-3 0200 4 Giancarlo Byrnes. [address] [facility], [facility] [address], [place], [place], [address] , [place]. tel:[phone] Referring Provider: Elyse Paredes MD, [address] [place], [address]. tel:[phone] Family History Family Member Type Diagnosis Age At Onset No Information Immunizations Vaccine Date Status Comments zoster vaccine recombinant administered N ote: [facility] bi-directional interface ; Source: Other Registry Pneumovax 23 administered Note: [facility] bi-d irectional interface ; Source: Other Registry Seasonal trivalent influenza vaccine, adjuvanted, preservative free administered Note: [facility] bi-direct ional interface ; Source: Other Registry zoster vaccine recombinant administered N ote: [facility] bi-directional interface ; Source: Other Registry Seasonal trivalent influenza vaccine, adjuvanted, preservative free administered Note: [facility] bi-direct ional interface ; Source: Other Registry Prevnar 13 administered Note: [facility] bi-d irectional interface ; Source: Other Registry influenza virus vaccine, unspecified formulation administered Note: [facility] bi-di rectional interface ; Source: Other Registry Influenza administered Note: [facility] bi-d irectional interface ; Source: Other Registry Influenza administered Note: [facility] bi-d irectional interface ; Source: Other Registry zoster vaccine, live administered Note: [facility] bi-directional interface ; Source: Other Registry Influenza administered Note: [facility] bi-d irectional interface ; Source: Other Registry Influenza, seasonal, injectable administe red Note: [facility] bi- directional interface ; Source: Other Registry Influenza, seasonal, injectable administe red Note: [facility] bi- directional interface ; Source: Other Registry tetanus toxoid, reduced diphtheria toxoid, and acellular pertussis vaccine, adsorbed administered Note: [facility] b i-directional interface ; Source: Other Registry Influenza, seasonal, injectable administe red Note: [facility] bi- directional interface ; Source: Other Registry Pneumovax 23 administered Note: [facility] bi-d irectional interface ; Source: Other Registry Influenza, seasonal, injectable administe red Note: [facility] bi- directional interface ; Source: Other Registry Influenza, seasonal, injectable administe red Note: [facility] bi- directional interface ; Source: Other Registry Influenza, seasonal, injecta ble, preservative free administered Note: [facility] bi-direct ional interface ; Source: Other Registry Influenza, seasonal, injectable administe red Note: [facility] bi- directional interface ; Source: Other Registry tetanus and diphtheria toxoi ds, adsorbed, preservative free, for adult use (5 Lf of tetanus toxoid and 2 Lf of diphtheria toxoid) administered Note: [facility] bi-direct ional interface ; Source: Other Registry tetanus and diphtheria toxoi ds, adsorbed, preservative free, for adult use (5 Lf of tetanus toxoid and 2 Lf of diphtheria toxoid) administered Note: [facility] bi-direct ional interface ; Source: Other Registry Payers Payer name Insurance type Covered alliance party ID Authoriza tion(s) No Information Social History Type Description Quantity Date Captured Comments Sex Female Smoking Status No Information Chief Complaint And Reason For Visit No Information Reason For Referral Reason For Referral No Information Plan Of Treatment Date Type Action Status Referral Ordered: Colonoscopy Appointment date/timeframe: 10/10/2019 ordered History Of Present Illness Encounter Date Complaint History Of Prese nt Illness No Information Functional Status Date Functional Assessmen t No Information Instructions Date Instruction Additional Infor mation No Information Assessments Type Assessment Date No Information Patient Care Teams Name Effective Dates (start - stop) Status Members No Information
== END 2023-01-20 13:23 | disposition home or self-care (01) ==
LOC: NFLDREF 01-21 01:29
PROVIDERS: PCP Internal Medicine; Referring Provider Internal Medicine; Visit Provider Internal Medicine
DX: E11.9 Type 2 diabetes mellitus without complications (principal); E78.5 Hyperlipidemia, unspecified; I10 Essential (primary) hypertension; E66.01 Morbid (severe) obesity due to excess calories; Z79.01 Long term (current) use of anticoagulants
CPT/HCPCS: 80053; 80061; 80076; 82043; 82570; 83880; 84439; 84443

== ENCOUNTER 2023-03-22 13:27 | Emergency (ER) | payer MEDICARE, SELFPAY ==
[2023-03-22 13:32] VITALS: BP 142/64; PULSE 68; RESP 18; TEMP 36.8; O2SAT 96; BMI 47.7
--- NOTE | 2023-03-22 14:09 | ED_ITS ---
HPI - General Adult General Time Seen by Provider: 14:12 Date Seen: 03/22/23 Chief complaint: Extremity Pain/Injury, Lower Stated complaint: right leg, 2 possible blood clots Time Seen by Provider: 03/22/23 14:08 History of Present Illness HPI narrative: 72-year-old female who presents here today with c/o pain, redness, and swelling in mid -calf and ankle on right leg since Wednesday evening. Pt has a fairly complicated past medical history. Hx breast cancer in 2017. Pt had aortic stenosis, status post TAVR procedure in July 2017 . was on warfarin for five years until she had Watchman's Procedure in September 2022 at [facility] in order to get off of warfarin . Pt was changed to Plavix and states she was diagnosed with DVT in right leg two weeks later. Pt d/c with Eliquis and was on that until this summer. last dose in January. pt states there was an interaction between anticoagulants and her chemo medication in past. Per patient, Every day I was on Eliquis, like 22/02, I would be itching. Pt now only taking baby asp irin for anticoagulant. She had a surveillance echocardiogram done on Wednesday, 3 days ago at [facility] to monitor her aortic valve. Apparently she has mild aortic regurg since the TAVR. No active symptoms for that. No planned surgery, just ongoing surveillance. After that procedure, she noted a little bit of discomfort affecting her medial calf just proximal to the ankle. She has also had a small area of red and discomfort on the medial/posterior medial proximal calf. She is able to feel a 3-4 cm linear nodule just below the skin surrounded by some erythema. She does not have any diffuse calf swelling, redness, or bruising. No chest pain or trouble breathing. No fever. No other known injury. No other rashes. Given her history of DVT, she is concerned she may have recurrent clot, since she has been off her blood thinner since last month. Related Data Home Medications Medication Instructions Recorded Confirmed evolocumab 140 mg/mL subcutaneous 140 mg subcut Q2W 09/10/22 03/22/23 pen injector aspirin 81 mg capsule 81 mg PO DAILY 03/22/23 03/22/23 exemestane 25 mg tablet 25 mg PO DAILY 03/22/23 03/22/23 insulin glargine 100 unit/mL (3 48 unit subcut QPM Diabetes 03/22/23 03/22/23 mL) subcutaneous pen (Lantus Solostar U-100 Insulin) Previous Rx's Medication Instructions Recorded venlafaxine 37.5 mg 37.5 mg PO QDAY Depression #90 caps 02/27/22 capsule,extended release 24 hr insulin lispro 100 unit/mL 5 - 10 unit (0.05 - 0.1 mL) subcut 07/17/22 subcutaneous pen TID Diabetes #15 mL metoprolol succinate 50 mg 50 mg PO QDAY Hypertension #90 tabs 10/28/22 tablet,extended release 24 hr blood sugar diagnostic (Accu-Chek #50 ea 01/05/23 Guide test strips) pen needle, diabetic 31 gauge x #100 ea 01/11/2312/15 (Pen Needle) semaglutide 1 mg/dose (4 mg/3 mL) 1 mg (0.75 mL) subcut QWEEK 01/26/23 subcutaneous pen injector (Ozempic) Diabetes #3 mL allopurinol 100 mg tablet 100 mg PO QDAY #90 tabs 02/15/23 rivaroxaban 15 mg (42)-20 mg (9) See Rx Instructions PO .COMPLEX 03/22/23 tablets in a starter pack (Xarelto #51 ea DVT-PE Treatment 30-Day Starter) Allergies Allergy/AdvReac Type Severity Reaction Status Date / Time erythromycin base Allergy Intermediate Rash Verified 03/22/23 13:47 lisinopril Allergy Intermediate Cough Verified 03/22/23 13:47 metformin Allergy Unknown Vomiting Verified 03/22/23 13:47 apixaban [From Eliquis] AdvReac Mild Itchy Verified 03/22/23 13:48 statins Allergy Severe Muscle Pain Uncoded 01/26/23 13:00 [facility] Medical History (Updated 03/22/23 @ 17:20 by Andrew Jacobs MD) DVT (deep venous thrombosis) ?I82.409 - Acute embolism and thrombosis of unspecified deep veins of unspecified lower extremity (ICD-10) Presence of Watchman left atrial appendage closure device ?Z95.818 - Presence of other cardiac implants and grafts (ICD-10) Presence of Watchman left atrial appendage closure device ?Z95.818 - Presence of other cardiac implants and grafts (ICD-10) Cervical radiculopathy ?M54.12 - Radiculopathy, cervical region (ICD-10) Depression ?F32.A - Depression, unspecified (ICD-10) Hyperlipidemia ?E78.5 - Hyperlipidemia, unspecified (ICD-10) Hypertension ?I10 - Essential (primary) hypertension (ICD-10) History of malignant neoplasm of breast ?Z85.3 - Personal history of malignant neoplasm of breast (ICD-10) Calculus of kidney ?N20.0 - Calculus of kidney (ICD-10) Surgical History Status post transcatheter aortic valve replacement (TAVR) using bioprosthesis ?Z95.3 - Presence of xenogenic heart valve (ICD-10) Status post transcatheter aortic valve replacement ?Z95.2 - Presence of prosthetic heart valve (ICD-10) S/P coronary artery stent placement ?Z95.5 - Presence of coronary angioplasty implant and graft (ICD-10) History of bilateral knee replacement ?Z96.653 - Presence of artificial knee joint, bilateral (ICD-10) Social History Smoking Status: Never smoker Do you use any of these nicotine containing products: None Second hand tobacco smoke exposure: No How often do you have a drink containing alcohol: never How often do you have six or more drinks on one occasion: Never AUDIT-C Alcohol total score: 0 Non-prescribed substance use: denies use Little interest or pleasure in doing things: not at all Feeling down, depressed, or hopeless: not at all service: No Exam Narrative: Exam Narrative: Constitutional: Appears well-developed and well-nourished. Alert. Conversant. Non toxic. HENT: Head: Atraumatic. Nose: Nose normal. Mouth/Throat: Oral mucosa is clear and moist. no trismus. Pharynx normal. Tonsils symmetric. No tonsillar enlargement, erythema, or exudate. Eyes: Conjunctivae normal. EOM normal. Pupils equal, round, and reactive to light. No scleral icterus. Neck: Normal range of motion. Neck supple. No tracheal deviation present. Cardiovascular: Normal rate, regular rhythm. No gallop. No friction rub. Soft systolic murmur heard. Symmetric radial and PT and DP artery pulses Pulmonary/Chest: Effort normal. No stridor. No respiratory distress. No wheezes. No rales. No rhonchi . No tenderness. Abdominal: Soft. Bowel sounds normal. No distension. No mass. No tenderness. No rebound. No guarding. Musculoskeletal: RUE: Normal range of motion. No tenderness. No deformity LUE: Normal range of motion. No tenderness. No deformity RLE: Normal range of motion in her hip, knee, ankle. She has a roughly 2 x 4 cm area of erythema and tenderness affecting the posteromedial skin on the proximal calf about for 5 cm distal to her knee. There is a tender subcutaneous nodule, suspicious for superficial thrombophlebitis. She also has a separate area of tenderness on the medial aspect of her lower leg about 2-3 cm proximal to the old medial malleolus of her ankle. No redness or warmth of the malleolus or ankle joint itself. There is no palpable nodule at the distal site. No other palpable cords, calf redness, or edema. She has healing excoriations on her lateral calf (have been healing since last month) without surrounding erythema there. LLE: Normal range of motion. No edema. No tenderness. No deformity Lymph: No cervical adenopathy. Neurological: Alert and oriented to person, place, and time. Normal strength. CN II-VII intact. No sensory deficit. GCS eye subscore is 4. GCS verbal subscore is 5. GCS motor subscore is 6. Normal coordination Skin: Skin is warm and dry. No rash noted. No pallor. Normal capillary refill. Psychiatric: Normal mood. Normal affect. Const: Vital Signs, click to edit/add: Vital Signs - 24 hr 03/22/23 13:32 Temperature 98.2 F Pulse Rate [Pulse Oximeter] 68 Respiratory Rate 18 Blood Pressure [Ri ght Upper Arm] 142/64 H Pulse Oximetry 96 Oxygen Delivery Me thod Room Air Course Vital Signs Vital signs: Initial Vital Signs Temperature 98.2 F 03/22/23 13:32 Temperature Source Temporal Artery Scan 03/22/23 13:32 Pulse Rate 68 03/22/23 13:32 Respiratory Rate 18 03/22/23 13:32 Blood Pressure 142/64 H 03/22/23 13:32 Blood Pressure Mean 90 03/22/23 13:32 Blood Pressure Position Sitting 03/22/23 13:32 Pulse Oximetry 96 03/22/23 13:32 Oxygen Delivery Method Room Air 03/22/23 13:32 Vital Signs Temperature 98.2 F 03/22/23 13:32 Pulse Rate 68 03/22/23 13:32 Respiratory Rate 18 03/22/23 13:32 Blood Pressure 142/64 H 03/22/23 13:32 Pulse Oximetry 96 03/22/23 13:32 Oxygen Delivery Method Room Air 03/22/23 13:32 Temperature 98.2 F 03/22/23 13:32 Pulse Rate 68 03/22/23 13:32 Respiratory Rate 18 03/22/23 13:32 Blood Pressure 142/64 H 03/22/23 13:32 Pulse Oximetry 96 03/22/23 13:32 Oxygen Delivery Method Room Air 03/22/23 13:32 Medical Decision Making MDM Narrative Medical decision making narrative: This is a pleasant 72-year-old female with history of previous DVT who had been on long-term anticoagulation with Eliquis. She stopped the Eliquis last month due to side effects and itching. She presents to the ER today with subtle areas of redness and pain involving her right medial calf and ankle. Differential included DVT, superficial thrombophlebitis, cellulitis, shingles, among others. No evidence for acute limb ischemia , abscess, necrotizing infection. DVT ultrasound does show evidence for a fairly long clot involving the greater saphenous vein. Patient describes that she has been having ascending pain which likely suggest that this clot has been expanding over the past couple of days. This clot is not currently a DVT and has overall low risk to embolize and become a PE. However with her medical history of previous DVT and a fairly large superficial clot with its proximal and extending above the knee, but not involving the zinc plate grainer down to the deep veins, concern would be whether not it might progress to become a DVT over the next couple of days. Discussed options including surveillance with repeat ultrasound versus empiric treatment with anticoagulation. Patient wants to go ahead with anticoagulation. She understands the risks of bleeding and the complications. She has been intolerant of Eliquis due to previous itching. In the past she had been on warfarin but wanted to get off that because it interacts with some of her other medications for her arthritis. We discussed options including treatment with warfarin and bridging with Lovenox versus treatment with rivaroxaban. She would prefer to treat with fiber oximeter and due to simplicity. She has previously normal kidney function and no concern for any new renal insufficiency. No other recent unusual bleeding. Prescription for rivaroxaban starter pack prescribed. She will follow-up with her primary care provider next week for repeat exam and repeat ultrasound to recheck and determine whether not she needs ongoing long- term anticoagulation. Precautions for return to the ER reviewed. Questions answered. Imaging Data DVT ultrasound, right leg: Attestation: I have reviewed the pertinent imaging results. Radiologist's impression: INDINGS: There is interval development of superficial thrombosis seen throughout the greater saphenous vein without encroachment of the GSV common femoral junction. Otherwise, the deep vessels including the common femoral, superficial femoral, popliteal and posterior tibial veins are compressible.. IMPRESSION: Interval development of superficial thrombosis within the greater saphenous vein without evidence of extension into the deep venous system. Discharge Plan Discharge Clinical Impression: Thrombosis of right saphenous vein Patient Disposition: Home, Self-Care Condition: Stable Instructions: Deep Vein Thrombosis (ED) Additional Instructions: As we discussed, your ultrasound shows that you have a blood clot in the saphenous vein of your leg. This is a superficial vein, not a deep vein. However you may be at risk that this clot will get larger and extend into the de ep veins. Therefore we have made a decision to start you on blood thinner as if this were a deep vein thrombosis. Please start taking the Xarelto today. You should follow-up with her doctor for a repeat ultrasound of her leg within 5-10 days. If you have worsening swelling or pain in your legs, or he develops any chest pain, dizziness, trouble breathing, return to the ER immediately. Prescriptions: New Xarelto DVT-PE Treat 30d Start 15 mg (42)- 20 mg (9) tablets,dose pack See Rx Instructions .ROUTE .COMPLEX Qty: 51 0RF Rx Instructions: take one-15 mg tablet twice daily for 21 days, then one-20 mg tablet once daily; must take with meal/food No Action evolocumab 140 mg/mL pen injector 140 mg subcut Q2W Ozempic 1 mg/dose (4 mg/3 mL) pen injector 1 mg subcut QWEEK Qty: 3 4RF exemestane 25 mg tablet 25 mg PO DAILY aspirin 81 mg capsule 81 mg PO DAILY insulin glargine [Lantus Solostar U-100 Insulin] 100 unit/mL (3 mL) insulin pen 48 unit subcut QPM Rx Instructions: 3 month supply venlafaxine 37.5 mg capsule,extended release 24hr 37.5 mg PO QDAY Qty: 90 3RF insulin lispro 100 unit/mL insulin pen 5 - 10 unit subcut TID Qty: 15 8RF metoprolol succinate 50 mg tablet extended release 24 hr 50 mg PO QDAY Qty: 90 3RF (DME) Accu-Chek Guide test strips Strip See Rx Instructions .Route Qty: 50 0RF Rx Instructions: As directed (DME) pen needle, diabetic [Pen Needle] 31 gauge x 5/16 needle See Rx Instructions .Route Qty: 100 0RF Rx Instructions: Use TID for insulin administration allopurinol 100 mg tablet 100 mg PO QDAY Qty: 90 3RF Follow Up/Referrals: Raghu Bae MD [Primary Care Provider] - Stand Alone Forms: [facility] Inst[facility]
--- NOTE | 2023-03-22 14:30 | CRLHL7_ITS ---
For Patients: As a result of the Century Cures Act, medical imaging exams and procedure reports are released immediately into your electronic medical record. You may view this report before your referring provider. If you have questions, please contact your health care provider. INDICATION: Calf pain after cessation of Eliquis TECHNIQUE: Ultrasound venous duplex lower right extremity. Compression venous exam was performed using pérez-scale, color Doppler, and spectral Doppler imaging. COMPARISON: Ultrasounds September 23, 2022 FINDINGS: There is interval development of superficial thrombosis seen throughout the greater saphenous vein without encroachment of the GSV common femoral junction. Otherwise, the deep vessels including the common femoral, superficial femoral, popliteal and posterior tibial veins are compressible.. IMPRESSION: Interval development of superficial thrombosis within the greater saphenous vein without evidence of extension into the deep venous system. Dictated by Kenneth Rodriguez MD @ 03/22/2023 4:34:34 PM (Electronically Signed)
== END 2023-03-22 17:31 | disposition home or self-care (01) ==
PROVIDERS: Emergency Provider Emergency Medicine; PCP Internal Medicine
DX: I82.811 Embolism and thrombosis of superficial veins of right lower extremity (principal)
CPT/HCPCS: 93971; 99283

== ENCOUNTER 2023-03-30 15:55 | Outpatient (CLI) | payer MEDICARE, SELFPAY ==
--- NOTE | 2023-03-30 16:00 | CRLHL7_ITS ---
For Patients: As a result of the Century Cures Act, medical imaging exams and procedure reports are released immediately into your electronic medical record. You may view this report before your referring provider. If you have questions, please contact your health care provider. INDICATION: Follow-up greater saphenous vein thrombus COMPARISON: 03/22/2023 TECHNIQUE: A compression venous ultrasound exam was performed of the right lower extremity using pérez-scale imaging, color Doppler and spectral Doppler analysis. FINDINGS: Sonographic imaging of the right lower extremity demonstrates normal compressibility and color Doppler venous blood flow within the common femoral vein and deep femoral vein. Within the thigh, the femoral vein is patent and compressible. At a lower level, the popliteal and posterior tibial veins also show normal compressibility and color Doppler venous blood flow. Unchanged occlusive hypoechoic thrombus within the greater saphenous vein extending from the mid thigh to the knee. Limited imaging of the contralateral groin demonstrates a normal spectral waveform and color Doppler venous blood flow within the left common femoral vein. IMPRESSION: No DVT. No significant interval change in the greater saphenous vein clot extending from the mid thigh to the knee. Dictated by Yoel Lopez MD @ 03/31/2023 9:12:23 AM (Electronically Signed)
== END 2023-03-30 15:56 | disposition home or self-care (01) ==
LOC: US 15:56
PROVIDERS: PCP Internal Medicine; Visit Provider Internal Medicine
DX: I82.811 Embolism and thrombosis of superficial veins of right lower extremity (principal); I82.4Z1 Acute embolism and thrombosis of unspecified deep veins of right distal lower extremity
CPT/HCPCS: 93971

== ENCOUNTER 2024-02-21 13:35 | Outpatient (CLI) | payer MEDICARE, SELFPAY ==
--- OUTSIDE RECORDS SUMMARY | 2024-02-21 13:40 | XMS_ITS | Clinical Summary ---
Author Organization [place] Address [facility] [place] [address] Care Team Providers Care Cloth Mercerizer Back Tender Name Role Phone Raghu Bae MD Primary Care Provider Dagmar Kang MD Unavailable Allergies Active Allergy Reactions Criticality Noted Date Comments Azithromycin 05/05/2022 Erythromycin Rash Low 07/31/2013 Erythromycin Rash Low 06/20/2019 Lisinopril Cough 04/16/2017 Metformin Nausea and Vomiting 06/07/2017 Rosuvastatin 04/22/2022 Severe muscle and bone pain Statins Muscle Pain (Myalgia) High 09/01/2022 Rivaroxaban Itching High 07/29/2023 Itching to forearm (Intense) Medications Medication Sig Dispensed Refills Start Date End Date Status BD INSULIN PEN NEEDLE UF MINI 31 gauge x 3/16 Ndle [BD INSULIN PEN NEEDLE UF MINI 31 GAUGE X 3/16 NDLE] USE 4-5 PER DAY UTD 0 07/25/2017 Active insulin lispro (HUMALOG) 100 unit/mL injection [INSULIN LISPRO (HUMALOG) 100 UNIT/ML INJECTION] Inject 6-10 Units under the skin 3 (three) times a day before meals. 09/17/2017 Active amoxicillin (AMOXIL) 500 MG tablet [AMOXICILLIN (AMOXIL) 500 MG TABLET] Take 2,000 mg by mouth as needed (prior to dental work). 08/08/2018 Active famotidine (FOR PEPCID) 10 MG tablet Take 10 mg by mouth 2 times daily as needed (hearburn) 08/08/2018 Active semaglutide (OZEMPIC) 0.25 mg or 0.5 mg(2 mg/1.5 mL) PnIj [SEMAGLUTIDE (OZEMPIC) 0.25 MG OR 0.5 MG(2 MG/1.5 ML) PNIJ] as directed 10/06/2019 Active venlafaxine (EFFEXOR-XR) 37.5 MG 24 hr capsule Take 37.5 mg by mouth daily 10/16/2020 Active allopurinoL (ZYLOPRIM) 100 MG tablet Take 100 mg by mouth daily 12/26/2020 Active acetaminophen (TYLENOL) 650 MG CR tablet Take 1,300 mg by mouth every 8 hours as needed for mild pain or fever Active cholecalciferol 25 MCG (1000 UT) TABS Take 1,000 Units by mouth daily Active insulin glargine (LANTUS SOLOSTAR) 100 UNIT/ML pen Inject 45 Units Subcutaneous At Bedtime . Gradually adjust as your appetite improves back to previous home dose of 30 units twice daily. 15 mL 09/07/2022 Active metoprolol succinate ER (TOPROL XL) 50 MG 24 hr tabletIndications:S/ P TAVR (transcatheter aortic valve replacement) Take 1 tablet (50 mg) by mouth daily 30 tablet 09/08/2022 Active XARELTO ANTICOAGULANT 20 MG TABS tablet Take 20 mg by mouth daily (with dinner) 07/25/2023 Active exemestane (AROMASIN) 25 MG tablet 08/25/2023 Active evolocumab (REPATHA SURECLICK) 140 MG/ML prefilled autoinjectorIndicati ons:Coronary artery disease involving samish coronary artery of samish heart without angina pectoris,Mixed hyperlipidemia,Stati n intolerance ADMINISTER 1 ML(140 MG) UNDER THE SKIN EVERY 14 DAYS 6 mL 2 11/08/2023 Active Active Problems Problem Noted Date Diagnosed Date Deep vein thrombosis (DVT) of proximal lower ext remity 10/28/2022 Atrial fibrillation with rapid ventricular respo nse 09/07/2022 Pneumonia due to infectious organism 09/07/2022 Hematoma of neck, sequela 09/04/2022 Presence of Watchman left atrial appendage closu re device 09/03/2022 Overview: 09/03/22 - 27 mm Watchman FLX device Chronic kidney disease, stage 3 12/26/2020 Morbid obesity with BMI of 50.0-59.9, adult 07/03 Persistent atrial fibrillation 07/23/2017 Overview: Postop TAVR Paroxysmal and then Persistent. Failed DCCV without antiarrhythmic. Convertedwith loading of amio [id number] score of 5 and on warfarin S/P TAVR (transcatheter aortic valve replacement ) 07/06/2017 Hyperglycemia 07/06/2017 Calculus of kidney 06/07/2017 Urinary tract stones 06/07/2017 DEDE on CPAP 05/27/2017 Type 2 diabetes mellitus wit hout complication, with long-term current use of insulin 05/27/2017 Essential hypertension 05/27/2017 Dyslipidemia, goal LDL below 70 08/14/2015 CASTRO (dyspnea on exertion) Coronary artery disease invo lving samish coronary artery of samish heart, angina presence unspecified Overview: Replacing diagnoses that were inactivated after the 05/02/2021 regulatory import. Chronic diastolic congestive heart failure Encounters Date Type Department Care Team Description 12/22/2023 Orders Only [address] [place] [address] Edelmira Paez, PAYTON S/P TAVR (transcatheter aortic valve replacement) (Primary Dx); Coronary artery disease involving samish coronary artery of samish heart, unspecified whether angina present; Hypercholesterolemia 12/14/2023 Telephone [facility] [address] [facility] [address] [place] [address] Dagmar Kang MD ACC quality measure (Blood pressure) 12/09/2023 Telephone [facility] [address] [facility] [address] [place] [address] Edelmira Paez, PAYTON Patient/info Update 12/03/2023 MyC Medical Advice [place] [id number] [facility] [address] [place] [address] Megan Dunlap MA from Last 3 Months Immunizations Name Administration Dates Next Due COVID-19 Bivalent 18+ (Moderna) 04/10/2022 COVID-19 Monovalent 18+ (Moderna) 05/26/2021,,09/27/2020 Flu, Unspecified 05/21/2017 Influenza Vaccine 65+ (Fluzone HD) 04/27/2022 Family History Medical History Relation Comments Esophageal Cancer Brother Diabetes Father Heart Disease Father Clotting Disorder No family hx of Gout No family hx of Urolithiasis No family hx of Relation Status Comments Brother Father Mother Social History Tobacco Use Types Packs/Day Years Used Date Smoking Tobacco: Never Smokeless Tobacco: Never Tobacco Cessation:Counseling Given: Not Answered Alcohol Use Standard Drinks/Week Comments No 0 (1 standard drink = 0.6 oz pur e alcohol) Adolescent Education Answer Date Record ed Getting School Help Needed Not on file 04/24 Sex and Gender Information Value Date Recorded Sex Assigned at Not on file Gender Identity Not on file Sexual Orientation Not on file Last Filed Vital Signs Vital Sign Reading Time Taken Comments Blood Pressure 127/66 12/21/2023 3:00 PM CDT Pulse 70 12/21/2023 3:00 PM CDT Temperature 36.6 ??C (97.8 ??F) 12/09/2022 9:54 AM CD T Respiratory Rate 18 12/09/2022 9:54 AM CDT Oxygen Saturation 98% 11/05/2023 3:03 PM CDT Inhaled Oxygen Concentration - - Weight 115.7 kg (255 lb) 11/05/2023 3:03 PM CDT Height 157.5 cm (5' 2) 09/03/2022 2:09 PM GEOSPATIAL ENGINEER Body Mass Index 46.64 09/03/2022 2:09 PM GEOSPATIAL ENGINEER Plan of Treatment Health Maintenance Due Date Last Done Comments ADVANCE CARE PLANNING 1950 ANNUAL REVIEW OF HM ORDERS 1952 CT COLONOGRAPHY 1952 DIABETIC FOOT EXAM 1952 EYE EXAM 1952 FIT 1952 FLEX SIG 1952 HF ACTION PLAN 1952 sDNA (Cologuard) 1952 URINALYSIS 1953 COLONOSCOPY 1962 COLORECTAL CANCER SCREENING 1962 HEPATITIS C SCREENING 1970 RSV VACCINE ( & 60+) (1 - 1-dose 60+ series) 2012 FALL RISK ASSESSMENT 2017 MEDICARE ANNUAL WELLNESS VISIT 2017 BMP 03/08/2023 09/08/2022, 02/0 12/2022, 09/06/2022, Additional history exists COVID-19 Vaccine (2022- season) 2023 05/03/2023, 04/10/2022, 11/19/2021, Additional history exists MICROALBUMIN 07/09/2023 07/09/2022 PHQ-2 (once per calendar year) 2023 CBC 09/07/2023 09/07/2022, 02/0 11/2022, 09/05/2022, Additional history exists HEMOGLOBIN 09/07/2023 09/07/2022, 02/0 11/2022, 09/05/2022, Additional history exists ALT 01/21/2024 01/20/2023, 01/01, 04/28/2021, Additional history exists INFLUENZA VACCINE (#1) 2024 , 04/27/2022, 04/28/2021, Additional history exists A1C 05/23/2024 11/22/2023, 03/0 12/2023, 07/21/2023, Additional history exists LIPID 11/21/2024 11/22/2023, 03/02, 07/02/2022, Additional history exists MAMMO SCREENING 09/28/2025 09/28/2023, 09/03, 08/13/2022, Additional history exists DTAP/TDAP/TD IMMUNIZATION (3 - Td or Tdap) 07/09/2032 07/09/2022, 08/08/2012, 11/01/2003, Additional history exists DEXA 01/26/2034 01/26/2019 TSH W/FREE T4 REFLEX Completed 03/23/2018, 03/23/2018, 10/27/2017 Pneumococcal Vaccine: 65+ Years Completed 04/13/2019, 03/23/2018, 07/30/2011 ZOSTER IMMUNIZATION Completed 06/08/2019, 01/26/2019, 07/24/2015 HPV IMMUNIZATION Aged Out No longer e ligible based on patient's age to complete this topic IPV IMMUNIZATION Aged Out No longer e ligible based on patient's age to complete this topic MENINGITIS IMMUNIZATION Aged Out No l onger eligible based on patient's age to complete this topic RSV MONOCLONAL ANTIBODY Aged Out No l onger eligible based on patient's age to complete this topic Medical Devices Implanted Type Area Front Load Trash Truck Driver Device Identifier Shelf Expiration Date Model / Serial / Lot Occluder Cv Watchman Flx Od27 [id number] [id number] - [id number] Implanted:Qty : 1 on 09/03/2022 by Ankush Martinez MD at [facility] Occlusion Device N/A: Heart [employer] 03/03/2025 [id number] / / [id number] Stent Synergy Mr [id number] Implanted:Qty : 1 on 05/12/2017 Stent Drug Eluting ([place]) N/A: Heart [employer] 03/25/2018 [id number] / / [id number] Valve [id number] Implanted:Qty : 1 on 07/06/2017 Valve N/A: Heart [employer] 02/25/2019 [id number] / / [id number] Procedures Procedure Name Priority Date/Time Associated Diagnosis Comments ZIO PATCH MAIL OUT Routine 12/19/2023 8: 49 PM CDT PAF (paroxysmal atrial fibrillation) (H) HEMOGLOBIN A1C (EXTERNAL RESULT) Routine 10/05/2023 2:05 PM GEOSPATIAL ENGINEER MA SCREENING BILATERAL W/ [place] Routine 09/28/2023 12:11 PM GEOSPATIAL ENGINEER LIPID REFLEX TO DIRECT LDL PANEL Routine 03/19/2023 1:10 PM CDT Coronary artery disease involving samish coronary artery of samish heart, unspecified whether angina present Hypercholesterolemi a ALT (EXTERNAL RESULT) Routine 01/20/2023 1:22 PM CDT BASIC METABOLIC PANEL Routine 09/08/2022 5:51 AM GEOSPATIAL ENGINEER CBC WITH PLATELETS Routine 09/07/2022 5: 18 AM GEOSPATIAL ENGINEER ABSTRACT MICROALBUMIN Routine 07/09/2022 2:32 PM GEOSPATIAL ENGINEER DX BONE DENSITY Routine 01/26/2019 11:20 AM CDT TSH Routine 03/23/2018 9:32 AM CDT from Last 3 Months or Most Recently Relevant to Health Maintenance Results * ZIO PATCH MAIL OUT (12/19/2023 8:49 PM CDT) Anatomical Region Laterality Modality Other Narrative 12/19/2023 8:52 PM CDT Zio monitoring from 11/24/2023 to 12/08/2023 (duration 13d 19h). Predominant rhythm was sinus rhythm, 47 to 147bpm, average 71bpm. 22 episodes of nonsustained atrial tachycardia - longest 13 beats average 98bpm, fastest 9 beats maximum 138bpm. ?? No sustained tachyarrhythmias. No atrial fibrillation. There were no pauses of greater than 3 seconds. Rare supraventricular ectopic beats (isolated <1%). Rare premature ventricular contractions (isolated <1%). Symptom triggers (5) correlated to sinus rhythm with and without PACs, PVCs. Electronically signed by Dante Powell MD 12/19/2023 ??8:50 PM Dagmar Kang MD [facility] CARDIAC SERVICES ORDERABLES * (ABNORMAL) Hemoglobin A1c (External Result) (10/05/2023 2:05 PM GEOSPATIAL ENGINEER) Hemoglobin A1C (External) 8.6(A) 0 - 5.6 % [facility] Blood 10/05/2023 2:05 PM GEOSPATIAL ENGINEER Narrative [facility] - 10/05/2023 2:05 PM GEOSPATIAL ENGINEER [facility]- External Lab Results Provider Outside LAB - HIM EXTERNAL R ESULT [facility] [address] [place] [address], [facility] [phone] * Lipid panel reflex to direct LDL Fasting (03/19/2023 1:10 PM CDT) Cholesterol 121 <=199 mg/dL 03/19/2023 4:53 PM CDT [facility] Triglycerides 144 <=149 mg/dL 03/19/2023 4:53 PM CDT [facility] Direct Measure HDL 52 >=50 mg/dL 2022 4:53 PM CDT [facility] Comment: HDL Cholesterol Reference Range: 0-2 years: No reference ranges established for patients under 2 years old ??at [facility] for lipid analytes. 2-8 years: Greater than 45 mg/dL 18 years and older: Female: Greater than or equal to 50 mg/dL Male: ?? Greater than or equal to 40 mg/dL LDL Cholesterol Calculated 40 <=129 mg/dL 03/19/2023 4:53 PM CDT [facility] Patient Fasting > 8hrs? Yes 03/19/2023 4:53 PM CDT [facility] Blood STRUCTURE OF RIGHT UPPER LIMB / Unknown Venipuncture / Unknown 03/19/2023 1:10 PM CDT 03/19/2023 4:30 PM CDT Dagmar Kang MD LAB - BLOOD ORDERABL ES [facility] [address] [place] [address], [facility] [phone] * ALT (External Result) (01/20/2023 1:22 PM CDT) ALT (External) 22 4 - 35 U/L [facility] Blood 01/20/2023 1:22 PM CDT Narrative [facility] - 01/20/2023 1:22 PM CDT [facility]-External Lab Results Provider Outside LAB - HIM EXTERNAL R ESULT [facility] [address] [place] [address], [facility] [phone] * (ABNORMAL) Basic metabolic panel (09/08/2022 5:51 AM GEOSPATIAL ENGINEER) Pathologist [facility] [place] Sodium 139 136 - 145 mmol/L 09/08/2022 6:50 AM [facility] Potassium 3.6 3.4 - 5.3 mmol/L 09/08/2022 6:50 AM [facility] Chloride 108(H) 98 - 107 mmol/L 09/08/2022 6:50 AM [facility] Carbon Dioxide (CO2) 25 22 - 29 mmol/L 09/08/2022 6:50 AM [facility] Anion Gap 6(L) 7 - 15 mmol/L 09/08/2022 6:50 AM [facility] Urea Nitrogen 21.4 8.0 - 23.0 mg/dL 09/08/2022 6:50 AM [facility] Creatinine 1.31(H) 0.51 - 0.95 mg/dL 09/08/2022 6:50 AM [facility] Calcium 8.7(L) 8.8 - 10.2 mg/dL 09/08/2022 6:50 AM [facility] Glucose 135(H) 70 - 99 mg/dL 09/08/2022 6:50 AM [facility] GFR Estimate 44(L) >60 mL/min/1.7 3m2 09/08/2022 6:50 AM [facility] Comment:eGFR calculated 2020 CKD-EPI equation. Blood BLOOD SPECIMEN / Unknown Venipuncture / Unknown 09/08/2022 5:51 AM GEOSPATIAL ENGINEER 09/08/2022 6:12 AM [facility] Jeimy Gonzalez APRN [facility] LAB - BLOOD ORDE [facility] Organization Address City/State/ZIP Co de Phone Number N LABORATORY [facility] [address] [phone] * (ABNORMAL) CBC with platelets (09/07/2022 5:18 AM GEOSPATIAL ENGINEER) Pathologist [facility] WBC Count 8.2 4.0 - 11.0 10e3/uL 09/07/2022 5:30 AM [facility] RBC Count 2.99(L) 3.80 - 5.20 10e6/uL 09/07/2022 5:30 AM GEOSPATIAL ENGINEER [facility] Hemoglobin 9.6(L) 11.7 - 15.7 g/dL 09/07/2022 5:30 AM [facility] Hematocrit 28.7(L) 35.0 - 47.0 % 09/07/2022 5:30 AM [facility] MCV 96 78 - 100 fL 09/07/2022 5:30 AM [facility] MCH 32.1 26.5 - 33.0 pg 09/07/2022 5:30 AM [facility] MCHC 33.4 31.5 - 36.5 g/dL 09/07/2022 5:30 AM [facility] RDW 12.9 10.0 - 15.0 % 09/07/2022 5:30 AM [facility] Platelet Count 130(L) 150 - 450 10e3/uL 09/07/2022 5:30 AM [facility] Blood VENOUS LINE / Unknown VAD(CVC, PICC) / Unknown 09/07/2022 5:18 AM GEOSPATIAL ENGINEER 09/07/2022 5:28 AM GEOSPATIAL ENGINEER Jeimy Gonzalez APRN MARKETING INFORMATION ANALYST LAB - BLOOD [facility] [address] [place] [address], [facility] [phone] * Abstract Microalbumin (07/09/2022 2:32 PM GEOSPATIAL ENGINEER) Albumin (Urine) MG/SPEC 4 mg/dL [facility] Creatinine (Urine) 128.0 mg/dL [facility] Albumin/Creatin ine Ratio 30 0 - 30 mg/g [facility] 07/09/2022 2:32 PM GEOSPATIAL ENGINEER Narrative [facility] - 07/09/2022 2:32 PM GEOSPATIAL ENGINEER [facility] Lab Result Provider Outside LAB - HIM EXTERNAL R ESULT [facility] [address] [place] [address], [facility] [phone] * (ABNORMAL) TSH (03/23/2018 9:32 AM CDT) TSH 5.91(H) 0.30 - 5.00 uIU/mL 03/23/2018 5:17 PM CDT [facility] Blood specimen (specimen) 03/23/2018 9:32 AM CDT 03/23/2018 2:47 PM CDT Elyse Paredes MD LAB - BLOOD ORDERABL ES [facility] [address] [place] [id number], [place] [facility] [address] [place] [id number] from Last 3 Months or Most Recently Relevant to Health Maintenance Advance Directives For more information, please contact: [phone] * Full Code (Latest Code Status on File) Date Activated Date Inactivated Comments 09/03/2022 9:06 AM 09/08/2022 8:06 PM All basic and advanced life-sustaining interventions are performed as appropriate Question Answer Comments Code status determined by: Discussion with lilia nt/ legal decision maker Care Teams Cloth Mercerizer Back Tender Relationship Specialty Start Date End Date Rgahu Bae MD [facility] [address] [place] [address] PCP - General Emergency Medicine 04/22/22 Dagmar Kang MD [address], [address] [place] [address] Assigned Heart and Vascular Provider 11/23/23
--- OUTSIDE RECORDS SUMMARY | 2024-02-21 13:40 | XMS_ITS | Clinical Summary ---
Author Organization [facility] Address [place], [place] [address] Care Team Providers Care Wares Sorter Name Role Phone Elyse Paredes MD Primary Care Provider [phone] Allergies Active Allergy Reactions Criticality Noted Date Comments Erythromycin Rash Medium 08/22/2014 Lisinopril Cough 08/22/2014 Metformin Nausea And Vomiting 06/07/2017 Medications Medication Sig Dispensed Refills Start Date End Date Status amoxicillin (AMOXIL) 500 mg tablet Take 500 mg by mouth one time. Prior to dental work. Active famotidine (PEPCID AC) 10 mg tablet Take 10 mg by mouth 2 times daily. Active losartan (COZAAR) 50 mg tablet Take 50 mg by mouth once daily. Active rosuvastatin (CRESTOR) 10 mg tablet Take 10 mg by mouth at bedtime. Active HUMALOG MIX 75-25 KWIKPEN 100 unit/mL (75-25) pen 75 Doses by Injection route. 2 02/11/2017 Active amoxicillin (AMOXIL) 500 mg capsule Take 500 mg by mouth one time if needed. 0 12/28/2017 Active TRULICITY 0.75 mg/0.5 mL injection 1.5 mg by Injection route once daily. Once a week 3 01/14/2018 Active insulin glargine (BASAGLAR KWIKPEN U-100 INSULIN) 100 unit/mL (3 mL) pen 60 Units by Injection route once daily. 02/17/2018 Active metoprolol succinate (TOPROL XL) 25 mg Sustained-Release tablet Take 1 tablet by mouth once daily. 0 03/28/2019 Active Blood-Glucose Transmitter cynthia As directed. 0 03/28/2019 Active warfarin (COUMADIN) 2.5 mg tablet Take 1 tablet by mouth once daily. 0 03/28/2019 Active aspirin (ECOTRIN) 81 mg enteric coated tablet Take 1 tablet by mouth once daily with a meal. 0 03/28/2019 Active chlorthalidone (HYGROTON) 25 mg tablet Take 1 tablet by mouth once daily. 0 03/28/2019 Active venlafaxine (EFFEXOR) 25 mg tablet Take 1 tablet by mouth every morning. 0 05/15/2020 Active semaglutide (OZEMPIC) pen Inject subcutaneous once weekly. 0 05/15/2020 Active allopurinoL (ZYLOPRIM) 100 mg tablet Take 1 tablet by mouth once daily. 0 05/15/2020 Active tamoxifen (NOLVADEX) 20 mg tablet Take 1 tablet by mouth once daily. 0 05/15/2020 Active CPAPIndications:DEDE (obstructive sleep apnea) CPAP machine for home use at pressure 6-20cm, nasal mask x1/3month with nasal cushion x2/mo; CZW=211m, Frequency of use=daily 1 Each 11 04/23/2022 Active Social History Tobacco Use Types Packs/Day Years Used Date Smoking Tobacco: Never Smokeless Tobacco: Never Alcohol Use Standard Drinks/Week Comments No 0 (1 standard drink = 0.6 oz pur e alcohol) Social Connections Answer Date Recorded Frequency of Communication with Friends and Fami ly Not on file 08/02/2021 Financial Resource Strain Answer Date R ecorded Difficulty of Paying Living Expenses Not on file 08/02/2021 Difficulty of Paying Living Expenses Not on file 08/02/2021 Sex and Gender Information Value Date Recorded Sex Assigned at Not on file Gender Identity Not on file Sexual Orientation Not on file Obstetrics History Last Filed Vital Signs Vital Sign Reading Time Taken Comments Blood Pressure 112/66 03/28/2019 1:41 PM CDT Pulse 62 03/28/2019 1:41 PM CDT Temperature - - Respiratory Rate 16 03/28/2018 2:29 PM CDT Oxygen Saturation 96% 03/28/2019 1:4 1 PM CDT room air, at rest Inhaled Oxygen Concentration - - Weight 126.6 kg (279 lb) 03/28/2019 1:4 1 PM CDT Height 156.8 cm (5' 1.75) 03/28/2019 1 :41 PM CDT Body Mass Index 51.44 03/28/2019 1:41 PM CDT Plan of Treatment Health Maintenance Due Date Last Done Comments COVID-19 vaccine series (#1) 1957 Tdap 1963 Depression screening for age 12+ 1964 Hepatitis C screening for ag e 18-79 1970 Zoster (shingles) series for age 50+ (1 of 2) 1971 Tetanus booster 1972 Colonoscopy through age 75 1997 Lipids for age 45-75 1997 Mammogram for age 45-75 1997 DEXA/DXA scan for age 65+ 2017 Medicare Wellness for age 65+ 2017 Pneumococcal series for age 65+ (1 of 1 - PCV) 2017 BMI (ht and wt on same day) for age 18+ 03/28/2020 03/28/2019, 03/28/2018, 03/22/2017, Additional history exists Influenza for age 65+ 04/02/2024 Care Teams Wares Sorter Relationship Specialty Start Date End Date Elyse Paredes MD PCP - General 11/10/07
--- OUTSIDE RECORDS SUMMARY | 2024-02-21 13:41 | XMS_ITS | Encounter Summary ---
Author Organization [facility] Address [address] [place] [address]. [place] [address] Care Team Providers Care Body Recall Instructor Name Role Phone Raghu Bae MD Primary Care Provider Dagmar Kang MD Unavailable Ashley Anderson PA-C Unavailable [phone] Dagmar Kang MD Unavailable Encounter Details Date Type Department Care Team (Late st Contact Info) Description 09/23/2022 [facility] Medical Advice [facility] Heart [facility] [address] [facility] [address] [place] [address] Krysten Vallejo Social History Tobacco Use Types Packs/Day Years Used Date Smoking Tobacco: Never Smokeless Tobacco: Never Alcohol Use Standard Drinks/Week Comments No 0 (1 standard drink = 0.6 oz pur e alcohol) Sex and Gender Information Value Date Recorded Sex Assigned at Not on file Gender Identity Not on file Sexual Orientation Not on file COVID-19 Exposure Response Date Recorded In the last 10 days, have yo u been in contact with someone who was confirmed or suspected to have Coronavirus/COVID-19? No / Unsure 09/03/2022 5:42 AM RECORDS MANAGEMENT CLERK documented as of this encounter Plan of Treatment Not on file documented as of this encounter Visit Diagnoses Not on filedocumented in this encounter Care Teams Body Recall Instructor Relationship Specialty Start Date End Date Raghu Bae MD [facility] [address] [place] [address] PCP - General Emergency Medicine 04/22/22 Dagmar Kang MD [address] [facility] [place] [address] Assigned Heart and Vascular Provider 08/29/22 09/23/23 Ashley Anderson PA-C [address] [place] [address] [address] [place] [address] Assigned Heart and Vascular Provider 09/24/23 11/22/23 Dagmar Kang MD [address] [facility] [place] [address] Assigned Heart and Vascular Provider 11/23/23 documented as of this encounter
--- OUTSIDE RECORDS SUMMARY | 2024-02-21 13:41 | XMS_ITS | Encounter Summary ---
Author Organization [place] Address [address] [place] [address]. [place] [address] Care Team Providers Care Jewel Bearing Polisher Name Role Phone Dagmar Kang MD Unavailable Elyse Paredes MD Primary Care Provider [phone] Dagmar Kang MD Unavailable Raghu Bae MD Primary Care Provider Nicole Salazar APRN COMPOSING ROOM MACHINIST APPRENTICE Unavailable Candy vailable Dagmar Kang MD Unavailable Ashley Anderson PA-C Unavailable [phone] Dagmar Kang MD Unavailable Encounter Details Date Type Department Care Team (Late st Contact Info) Description 05/28/2017 Records - [facility] HE CONVERSION Scan, Non-Provider Social History Tobacco Use Types Packs/Day Years Used Date Smoking Tobacco: Never Assessed Sex and Gender Information Value Date Recorded Sex Assigned at Not on file Gender Identity Not on file Sexual Orientation Not on file documented as of this encounter Plan of Treatment Not on file documented as of this encounter Visit Diagnoses Not on filedocumented in this encounter Care Teams Jewel Bearing Polisher Relationship Specialty Start Date End Date Elyse Paredes MD [address] [place] [address] PCP - General Family Practice 12/22/13 04/21/22 Raghu Bae MD [facility] [address] [place] [address] PCP - General Emergency Medicine 04/22/22 Dagmar Kang MD [address] [facility], [address] [place] [address] Assigned Heart and Vascular Provider 02/14/21 02/27/22 Dagmar Kang MD [address] [facility], [facility] [address] [place] [address] Assigned Heart and Vascular Provider 03/21/22 04/24/22 Nicole Salazar APRN [facility] Assigned Heart and Vascular Provider 04/25/22 08/28/22 Dagmar Kang MD [address] [facility], [address] [place] [address] Assigned Heart and Vascular Provider 08/29/22 09/23/23 Ashley Anderson PA-C [address] [place] [address] [address] [place] [address] Assigned Heart and Vascular Provider 09/24/23 11/22/23 Dagmar Kang MD [address] [place] [address], [address] [place] [address] Assigned Heart and Vascular Provider 11/23/23 documented as of this encounter
--- OUTSIDE RECORDS SUMMARY | 2024-02-21 13:41 | XMS_ITS | Encounter Summary ---
Author Organization [place] Address [address] [place] [address]. [place] [address] Care Team Providers Care Straddle Truck Driver Name Role Phone Dagmar Kang MD Unavailable Elyse Paredes MD Primary Care Provider [phone] Dagmar Kang MD Unavailable Raghu Bae MD Primary Care Provider Nicole Salazar APRN SCREEN PRINTING MACHINE OPERATOR Unavailable Cnady vailable Dagmar Kang MD Unavailable Ashley Anderson PA-C Unavailable [phone] Dagmar Kang MD Unavailable Encounter Details Date Type Department Care Team (Late st Contact Info) Description 08/09/2018 Records - [facility] HE CONVERSION [...] on filedocumented in this encounter Care Teams Straddle Truck Driver Relationship Specialty Start Date End Date Elyse Paredes MD [address] [place] [address] PCP - General Family Practice 12/22/13 04/21/22 Raghu Bae MD [facility] [address] [place] [address] PCP - General Emergency Medicine 04/22/22 Dagmar Kang MD [address] [facility], [address] [place] [address] Assigned Heart and Vascular Provider 02/14/21 02/27/22 Dagmar Kang MD [address] [facility], [facility] [address] [place] [address] Assigned Heart and Vascular Provider 03/21/22 04/24/22 Nicole Salazar APRN [facility] Assigned Heart and Vascular Provider 04/25/22 08/28/22 Dagmar Kang MD [address] [facility], [address] [place] [address] Assigned Heart and Vascular Provider 08/29/22 09/23/23 Ashley Anderson PA-C [address] [place] [address] [address] [place] [address] Assigned Heart and Vascular Provider 09/24/23 11/22/23 Dagmar Kang MD [address] [place] [address], [address] [place] [address] Assigned Heart and Vascular Provider 11/23/23 documented as of this encounter
--- OUTSIDE RECORDS SUMMARY | 2024-02-21 13:41 | XMS_ITS | Encounter Summary ---
Author Organization [place] Address [facility] [place] [address] Care Team Providers Care Systems Analyst Name Role Phone Raghu Bae MD Primary Care Provider Dagmar Kang MD Unavailable Reason for Visit * Reason Onset Date Comments Patient/info Update 12/09/2023 Encounter Details Date Type Department Care Team (Late st Contact Info) Description 12/09/2023 [facility] Heart [address] [place] [address] Edelmira Paez RN Patient/info Update Social History Tobacco Use Types Packs/Day Years [...] documented as of this encounter Miscellaneous Notes * Telephone Encounter - Edelmira Paez RN - 12/09/2023 1:51 PM CDT Rec'd return call from patient who stated she mailed Ziopatch monitor back yesterday - informed herthat she would be contacted with results once reviewed - understanding verbalized. mg * Telephone Encounter - Edelmira Paez RN - 12/09/2023 8:47 AM CDT Left msg for patient requesting call back with update on whether she has returned 2wk Ziopatch monitor which was mailed out 11-05-23. mg documented in this encounter Plan of Treatment Not on file documented as of this encounter Visit Diagnoses Not on filedocumented in this encounter Care Teams Systems Analyst Relationship Specialty Start Date End Date Raghu Bae MD [facility] [address] [place] [address] PCP - General Emergency Medicine 04/22/22 Dagmar Kang MD [address] [facility], [address] [place] [address] Assigned Heart and Vascular Provider 11/23/23 documented as of this encounter
--- OUTSIDE RECORDS SUMMARY | 2024-02-21 13:41 | XMS_ITS | Encounter Summary ---
Author Organization [facility] Address [address] [place] [address] Care Team Providers Care Mash Preparatory Operator Name Role Phone Dagmar Kang MD Unavailable Elyse Paredes MD Primary Care Provider [phone] Dagmar Kang MD Unavailable Raghu Bae MD Primary Care Provider Nicole Salazar APRN REPLENISHMENT MERCHANDISING ASSOCIATE Unavailable Candy vailable Dagmar Kang MD Unavailable Ashley Anderson PA-C Unavailable [phone] Dagmar Kang MD Unavailable Encounter Details Date Type Department Care Team (Late st Contact Info) Description 04/16/2017 Records - [facility] Heart [address] [address] Tomas Pino RN Social History Tobacco Use Types Packs/Day Years Used Date Smoking Tobacco: Never Assessed Sex and Gender Information Value Date Recorded Sex Assigned at Not on file Gender Identity Not on file Sexual Orientation Not on file documented as of this encounter Progress Notes * Tomas Pino RN - 04/16/2017 2:52 PM CDT A user error has taken place: encounter opened in error, closed for administrative reasons. documented in this encounter Plan of Treatment Not on file documented as of this encounter Visit Diagnoses Not on filedocumented in this encounter Care Teams Mash Preparatory Operator Relationship Specialty Start Date End Date Reggie, Elyse Armas MD [address] [place] [address] PCP - General Family Practice 12/22/13 04/21/22 Raghu Bae MD [facility] [address] [place] [address] PCP - General Emergency Medicine 04/22/22 Dagmar Kang MD [address] [facility] 200 [place] [address] Assigned Heart and Vascular Provider 02/14/21 02/27/22 Dagmar Kang MD [address] [facility] [address] [place] [address] Assigned Heart and Vascular Provider 03/21/22 04/24/22 Nicole Salazar APRN [facility] Assigned Heart and Vascular Provider 04/25/22 08/28/22 Dagmar Kang MD [address] [facility] [address] [place] [address] Assigned Heart and Vascular Provider 08/29/22 09/23/23 Ashley Anderson PA-C [address] [facility] [address] [place] [address] Assigned Heart and Vascular Provider 09/24/23 11/22/23 Dagmar Kang MD [address] [facility] 200 [place] [address] Assigned Heart and Vascular Provider 11/23/23 documented as of this encounter
--- OUTSIDE RECORDS SUMMARY | 2024-02-21 13:41 | XMS_ITS | Encounter Summary ---
Author Organization [facility] Address [address] [place] [address] Care Team Providers Care Barrel Rifler Hook Name Role Phone Raghu Bae MD Primary Care Provider Dagmar Kang MD Unavailable Reason for Visit * Reason Onset Date Comments ACC quality measure 12/14/2023 Blood pressu re Encounter Details Date Type Department Care Team (Late st Contact Info) Description 12/14/[address] [facility] Heart [facility] [address] [facility] [address] [place] [address] Dagmar Kang MD [address] [facility], [address] [place] [address] ACC quality measure (Blood pressure) Social History Tobacco Use Types Packs/Day Years [...] Pulse 70 12/21/2023 3:00 PM CDT Temperature - - Respiratory Rate - - Oxygen Saturation - - Inhaled Oxygen Concentration - - Weight - - Height - - Body Mass Index - - documented in this encounter Miscellaneous Notes * Telephone Encounter - Cherise Zamora MA - 12/21/2023 3:30 PM CDT Patient returned call and left voicemail message with update blood pressure reading. Last Blood Pressure: 144/84 Last Heart Rate: 65 Date: 11/05/23 Location: [facility] Cardiology Today's Blood Pressure: 127/66 Today's Heart Rate: 70 Location: Pharmacy Patient reported blood pressure updated in [facility]. Blood pressure falls within [place] Community Me[place] guidelines. Patient will follow up as previously advised. * Telephone Encounter - Megan Dunlap MA - 12/21/2023 11:21 AM CDT [place] Community [place] Blood Pressure guideline reviewed. Patients recent blood pressure is outside of guideline parameters. Called pt to review, no answer. Left 2nd voicemail message asking patient to check their blood pressure using a home blood pressure cuff or by going to a [facility]. MyChart message sent to pton 12/03/23 Patient instructed to then call [phone] ([facility]) and leave a message with their name, date of , and blood pressure reading that was completed within the last 24 hours and where it was completed. Will await call back for further review. Thanks RAFAEL Guzman * Telephone Encounter - Megan Dunlap MA - 12/14/2023 10:27 AM CDT [place] Blood Pressure [place] reviewed. Patients recent blood pressure is outside of guideline parameters. Called pt to review, no answer. Left voicemail message asking patient to check their blood pressureusing a home blood pressure cuff or by going to a [facility]. First attempt to call. MyChartmessage sent to pt on 12/03/23 Patient instructed to then call [phone] ([facility]) and leave a message with their name, date of , and blood pressure reading that was completed within the last 24 hours and where it was completed. Will await call back for further review. Thanks RAFAEL Guzman documented in this encounter Plan of Treatment Not on file documented as of this encounter Visit Diagnoses Not on filedocumented in this encounter Care Teams Barrel Rifler Hook Relationship Specialty Start Date End Date Raghu Bae MD [facility] [address] [place] [address] PCP - General Emergency Medicine 04/22/22 Dagmar Kang MD [address] [facility], [address] [place] [address] Assigned Heart and Vascular Provider 11/23/23 documented as of this encounter
--- OUTSIDE RECORDS SUMMARY | 2024-02-21 13:41 | XMS_ITS | Encounter Summary ---
Author Organization [place] Address [facility] [place] [address] Care Team Providers Care Sales Associate Key Holder Name Role Phone Raghu Bae MD Primary Care Provider Ashley Anderson PA-C Unavailable [phone] Encounter Details Date Type Department Care Team (Latest Contact Info) Description 11/15/2023 Travel Social History Tobacco Use Types Packs/Day [...] on filedocumented in this encounter Care Teams Sales Associate Key Holder Relationship Specialty Start Date End Date Raghu Bae MD [facility] [address] [place] [address] PCP - General Emergency Medicine 04/22/22 Ashley Anderson PA-C [address] [facility] [address] [place] [address] Assigned Heart and Vascular Provider 09/24/23 11/22/23 documented as of this encounter
--- OUTSIDE RECORDS SUMMARY | 2024-02-21 13:41 | XMS_ITS | Encounter Summary ---
Author Organization [place] Address [address] [place] [address] Care Team Providers Care Mandarin Speaking Nanny Name Role Phone Raghu Bae MD Primary Care Provider Dagmar Kang MD Unavailable Reason for Referral * Consultation (Routine: Next available opening) - Pending Review Specialty Diagnoses / Procedures Referred By Contac t Referred To Contact Cardiovascular Disease Diagnoses S/P TAVR (transcatheter aortic valve replacement) Coronary artery disease involving hamilton coronary artery of hamilton heart, unspecified whether angina present Hypercholesterolemia Dagmar Kang MD [address] [facility], [address] [place] [address] Referral ID Status Reason Start Date Expiration Date V isits Requested Visits Authorized [id number] Pending Review 12/22/2023 12/21/2024 1 1 Question Answer Follow-up with: Self Scheduling Instructions: [facility] will call you to coordinate your care as prescribed by your provider. If you have concerns about scheduling, please call [phone]. Comments [facility] will call you to coordinate your care as prescribed by your provider. If you have concerns about scheduling, please call [phone]. Encounter Details Date Type Department Care Team (Late st Contact Info) Description 12/22/2023 Orders Only [facility] [place] [address] [facility] [address] [place] [address] Edelmira Paez, [place] S/P TAVR (transcatheter aortic valve replacement) (Primary Dx); Coronary artery disease involving hamilton coronary artery of hamilton heart, unspecified whether angina present; Hypercholesterolemia Social History Tobacco Use Types Packs/Day Years [...] of this encounter Plan of Treatment Scheduled Referrals Name Type Priority Associated Diagnoses Orde r Schedule Follow-Up with Cardiology Referral Routine: Next available opening S/P TAVR (transcatheter aortic valve replacement) Coronary artery disease involving hamilton coronary artery of hamilton heart, unspecified whether angina present Hypercholesterolemia Expected: 10/31/2024 (Approximate), Expires: 12/21/2024 documented as of this encounter Visit Diagnoses Diagnosis S/P TAVR (transcatheter aortic valve replacement)- Primary Coronary artery disease involving hamilton coronary artery of hamilton heart, unspecified whether angina present Hypercholesterolemia Pure hypercholesterolemia documented in this encounter Care Teams Mandarin Speaking Nanny Relationship Specialty Start Date End Date Raghu Bae MD [facility] [address] [place] [address] PCP - General Emergency Medicine 04/22/22 Dagmar Kang MD [address] [place] [address], [address] [place] [address] Assigned Heart and Vascular Provider 11/23/23 documented as of this encounter
--- OUTSIDE RECORDS SUMMARY | 2024-02-21 13:41 | XMS_ITS | Encounter Summary ---
Author Organization [place] Address [facility] [place] [address] Care Team Providers Care Fringe Knotter Name Role Phone Raghu Bae MD Primary Care Provider Dagmar Kang MD Unavailable Encounter Details Date Type Department Care Team (Late st Contact Info) Description 12/03/2023 [facility] [place] [address] [facility] [address] [place] [address] Megan Dunlap MA Social History Tobacco Use Types Packs/Day Years [...] on filedocumented in this encounter Care Teams Fringe Knotter Relationship Specialty Start Date End Date Raghu Bae MD [facility] [address] [place] [address] PCP - General Emergency Medicine 04/22/22 Dagmar Kang MD [address] [facility], [address] [place] [address] Assigned Heart and Vascular Provider 11/23/23 documented as of this encounter
--- OUTSIDE RECORDS SUMMARY | 2024-02-21 13:41 | XMS_ITS | Encounter Summary ---
Author Organization [place] Address [facility] [place] [address] Care Team Providers Care Television Cameraman Name Role Phone Raghu Bae MD Primary Care Provider Dagmar Kang MD Unavailable Ashley Anderson PA-C Unavailable [phone] Dagmar Kang MD Unavailable Reason for Visit * Reason Comments Medication Refill Encounter Details Date Type Department Care Team (Late st Contact Info) Description [facility] [address] [facility] [address] [place] [address] Dagmar Kang MD [address] [facility], [address] [place] [address] Medication Refill Social History Tobacco Use Types Packs/Day Years [...] Visit Diagnoses Diagnosis Coronary artery disease involving mechoopda coronary artery of mechoopda heart, unspecified whether angina present Hypercholesterolemia Pure hypercholesterolemia documented in this encounter Care Teams Television Cameraman Relationship Specialty Start Date End Date Raghu Bae MD [facility] [address] [place] [place] [address] PCP - General Emergency Medicine 04/22/22 Dagmar Kang MD [address] [place] [address], [address] [place] [address] Assigned Heart and Vascular Provider 08/29/22 09/23/23 Ashley Anderson PA-C [address] [place] [address] [address] [place] [address] Assigned Heart and Vascular Provider 09/24/23 11/22/23 Dagmar Kang MD [address] [place] [address], [address] [place] [address] Assigned Heart and Vascular Provider 11/23/23 documented as of this encounter
--- OUTSIDE RECORDS SUMMARY | 2024-02-21 13:41 | XMS_ITS | Encounter Summary ---
Author Organization [place] Address [address] [place] [address] Care Team Providers Care Chief Nurse Anesthetist Name Role Phone Raghu Bae MD Primary Care Provider Nicole Salazar APRN BACK END ENGINEER Unavailable Candy vailable Dagmar Kang MD Unavailable Ashley Anderson PA-C Unavailable [phone] Dagmar Kang MD Unavailable Encounter Details Date Type Department Care Team (Late st Contact Info) Description 06/24/2022 [facility] Heart [facility] [address] [facility] [address] [place] [id number] Natalia Vee, RN Social History Tobacco Use Types Packs/Day [...] suspected to have Coronavirus/COVID-19? No / Unsure 06/02/2022 11:29 AM CDT documented as of this encounter Plan of Treatment Not on file documented as of this encounter Visit Diagnoses Not on filedocumented in this encounter Care Teams Chief Nurse Anesthetist Relationship Specialty Start Date End Date Raghu Bae MD [facility] [address] [place] [address] PCP - General Emergency Medicine 04/22/22 Nicole Salazar APRN [facility] Assigned Heart and Vascular Provider 04/25/22 08/28/22 Dagmar Kang MD [address] [facility], [address] [place] [address] Assigned Heart and Vascular Provider 08/29/22 09/23/23 Ashley Anderson PA-C [address] [facility] [address] [place] [address] Assigned Heart and Vascular Provider 09/24/23 11/22/23 Dagmar Kang MD [address] [facility], [address] [place] [address] Assigned Heart and Vascular Provider 11/23/23 documented as of this encounter
--- OUTSIDE RECORDS SUMMARY | 2024-02-21 13:41 | XMS_ITS | Referral Summary ---
Author Organization [place] Address [address] [place] [address] Care Team Providers Care Autocutter Name Role Phone Raghu Bae MD Primary Care Provider Dagmar Kang MD Unavailable Encounters Date Type Department Care Team Description 12/22/2023 Orders Only [address] [place] [address] Edelmira Paez, PAYTON S/P TAVR (transcatheter aortic valve replacement) (Primary Dx); Coronary artery disease involving [place] coronary artery of [place] heart, unspecified whether angina present; Hypercholesterolemia 12/14/[address] [place] [address] Dagmar Kang MD ACC quality measure (Blood pressure) 12/09/2023 Telephone [facility] [address] [place] [address] Edelmira Paez, PAYTON Patient/info Update 12/03/2023 MyC Medical Advice [address] [place] [address] Megan Dunlap MA from Last 3 Months Allergies Active Allergy Reactions Criticality Noted Date [...] MG/ML prefilled autoinjectorIndicati ons:Coronary artery disease involving [place] coronary artery of [place] heart without angina pectoris,Mixed hyperlipidemia,Stati n intolerance [...] DCCV without antiarrhythmic. Convertedwith loading of amio [id number] score of 5 and on warfarin S/P TAVR (transcatheter aortic valve replacement ) 07/06/2017 Hyperglycemia 07/06/2017 Calculus of kidney 06/07/2017 Urinary tract stones 06/07/2017 DEDE on CPAP 05/27/2017 Type 2 diabetes mellitus wit hout complication, with long-term current use of insulin 05/27/2017 Essential hypertension 05/27/2017 Dyslipidemia, goal LDL below 70 08/14/2015 CASTRO (dyspnea on exertion) Coronary artery disease invo lving [place] coronary artery of [place] heart, angina presence unspecified Overview: Replacing diagnoses that were inactivated after the 05/02/2021 regulatory import. Chronic diastolic congestive heart failure Immunizations Name Administration Dates Next Due COVID-19 Bivalent 18+ (Moderna) 04/10/2022 COVID-19 Monovalent 18+ (Moderna) 05/26/2021,,09/27/2020 Flu, Unspecified 05/21/2017 Influenza Vaccine 65+ (Fluzone HD) 04/27/2022 Social History Tobacco Use Types Packs/Day Years [...] 157.5 cm (5' 2) 09/03/2022 2:09 PM MANAGER FRONT Body Mass Index 46.64 09/03/2022 2:09 PM MANAGER FRONT Plan of Treatment Not on file Medical Devices Implanted Type Area Double End Production Grinder Device Identifier Shelf Expiration Date Model / Serial / Lot Occluder Cv Watchman Flx Od27 Mm [id number] - [id number] Implanted:Qty : 1 on 09/03/2022 by Ankush Martinez MD at [facility] Occlusion Device N/A: Heart [employer] 03/03/2025 [id number] / / [id number] Stent Synergy Mr [id number] Implanted:Qty : 1 on 05/12/2017 Stent Drug Eluting ([place]) N/A: Heart [employer] 03/25/2018 [id number] / / [id number] Valve [id number] Implanted:Qty : 1 on 07/06/2017 Valve N/A: Heart [employer] 02/25/2019 [id number] / / [id number] Procedures Procedure Name Priority Date/Time Associated Diagnosis Comments ZIO PATCH MAIL OUT Routine 12/19/2023 8: 49 PM CDT PAF (paroxysmal atrial fibrillation) (H) HEMOGLOBIN A1C (EXTERNAL RESULT) Routine 10/05/2023 2:05 PM MANAGER FRONT MA SCREENING BILATERAL W/ [place] Routine 09/28/2023 12:11 PM MANAGER FRONT LIPID REFLEX TO DIRECT LDL PANEL Routine 03/19/2023 1:10 PM CDT Coronary artery disease involving [place] coronary artery of [place] heart, unspecified whether angina present Hypercholesterolemi a ALT (EXTERNAL RESULT) Routine 01/20/2023 1:22 PM CDT BASIC METABOLIC PANEL Routine 09/08/2022 5:51 AM MANAGER FRONT CBC WITH PLATELETS Routine 09/07/2022 5: 18 AM MANAGER FRONT ABSTRACT MICROALBUMIN Routine 07/09/2022 2:32 PM MANAGER FRONT DX BONE DENSITY Routine 01/26/2019 11:20 AM [...] Hemoglobin A1c (External Result) (10/05/2023 2:05 PM MANAGER FRONT) Hemoglobin A1C (External) 8.6(A) 0 - 5.6 % [facility] Blood 10/05/2023 2:05 PM MANAGER FRONT Narrative [facility] - 10/05/2023 2:05 PM MANAGER FRONT [facility]- External Lab Results Provider Outside LAB - HIM EXTERNAL R ESULT [facility] [address] [phone] * Lipid panel reflex to direct LDL Fasting (03/19/2023 1:10 PM CDT) Cholesterol 121 <=199 mg/dL 03/19/2023 4:53 PM CDT [facility] Triglycerides 144 <=149 mg/dL 03/19/2023 4:53 PM CDT [facility] Direct Measure HDL 52 >=50 mg/dL 2022 4:53 PM CDT [facility] Comment: HDL Cholesterol Reference Range: 0-2 years: No reference ranges established for patients under 2 years old ??at [facility] en-Gauge for lipid analytes. 2-8 years: Greater than 45 mg/dL 18 years and older: Female: Greater than or equal to 50 mg/dL Male: ?? Greater than or equal to 40 mg/dL LDL Cholesterol Calculated 40 <=129 mg/dL 03/19/2023 4:53 PM CDT [facility] Patient Fasting > 8hrs? Yes 03/19/2023 4:53 PM CDT [facility] Blood STRUCTURE OF RIGHT UPPER LIMB / Unknown Venipuncture / Unknown 03/19/2023 1:10 PM CDT 03/19/2023 4:30 PM CDT Dagmar Kang MD LAB - BLOOD ORDERABL ES [facility] [address] [place] [address], [facility] [phone] * ALT (External Result) (01/20/2023 1:22 PM CDT) ALT (External) 22 4 - 35 U/L [facility] Blood 01/20/2023 1:22 PM CDT Narrative [facility] - 01/20/2023 1:22 PM CDT [facility]-External Lab Results Provider Outside LAB - HIM EXTERNAL R ESULT [facility] [address] [place] [address], [facility] [phone] * (ABNORMAL) Basic metabolic panel (09/08/2022 5:51 AM MANAGER FRONT) Sodium 139 136 - 145 mmol/L 09/08/2022 6:50 AM [facility] Potassium 3.6 3.4 - 5.3 mmol/L 09/08/2022 6:50 AM [facility] Chloride 108(H) 98 - 107 mmol/L 09/08/2022 6:50 AM [facility] Carbon Dioxide (CO2) 25 22 - 29 mmol/L 09/08/2022 6:50 AM [facility] Anion Gap 6(L) 7 - 15 mmol/L 09/08/2022 6:50 AM [facility] Urea Nitrogen 21.4 8.0 - 23.0 mg/dL 09/08/2022 6:50 AM [facility] Creatinine 1.31(H) 0.51 - 0.95 mg/dL 09/08/2022 6:50 AM [facility] Calcium 8.7(L) 8.8 - 10.2 mg/dL 09/08/2022 6:50 AM [facility] Glucose 135(H) 70 - 99 mg/dL 09/08/2022 6:50 AM [facility] GFR Estimate 44(L) >60 mL/min/1.7 3m2 09/08/2022 6:50 AM [facility] Comment:eGFR calculated 2020 CKD-EPI equation. Blood BLOOD SPECIMEN / Unknown Venipuncture / Unknown 09/08/2022 5:51 AM MANAGER FRONT 09/08/2022 6:12 AM MANAGER FRONT Jeimy Gonzalez APRN GASOLINE ENGINE ASSEMBLER LAB - BLOOD ORDE OSVALDO [facility] Organization Address City/State/ZIP Co de Phone Number N LABORATORY [facility] [address] [phone] * (ABNORMAL) CBC with platelets (09/07/2022 5:18 AM MANAGER FRONT) WBC Count 8.2 4.0 - 11.0 10e3/uL 09/07/2022 5:30 AM [facility] RBC Count 2.99(L) 3.80 - 5.20 10e6/uL 09/07/2022 5:30 AM [facility] Hemoglobin 9.6(L) 11.7 - 15.7 g/dL 09/07/2022 5:30 AM [facility] Hematocrit 28.7(L) 35.0 - 47.0 % 09/07/2022 5:30 AM [facility] MCV 96 78 - 100 fL 09/07/2022 5:30 AM [facility] MCH 32.1 26.5 - 33.0 pg 09/07/2022 5:30 AM [facility] MCHC 33.4 31.5 - 36.5 g/dL 09/07/2022 5:30 AM [facility] RDW 12.9 10.0 - 15.0 % 09/07/2022 5:30 AM [facility] Platelet Count 130(L) 150 - 450 10e3/uL 09/07/2022 5:30 AM [facility] Blood VENOUS LINE / Unknown VAD(CVC, PICC) / Unknown 09/07/2022 5:18 AM MANAGER FRONT 09/07/2022 5:28 AM MANAGER FRONT Jeimy Gonzalez APRN GASOLINE ENGINE ASSEMBLER LAB - BLOOD ORDE [place]VALDO N LABORATORY [facility] [address] [place] [address], [facility] [phone] * Abstract Microalbumin (07/09/2022 2:32 PM MANAGER FRONT) Albumin (Urine) MG/SPEC 4 mg/dL [facility] Creatinine (Urine) 128.0 mg/dL [facility] Albumin/Creatin ine Ratio 30 0 - 30 mg/g [facility] 07/09/2022 2:32 PM MANAGER FRONT Narrative [facility] - 07/09/2022 2:32 PM MANAGER FRONT [facility] Lab Result Provider Outside LAB - HIM EXTERNAL R ESULT Performing Organization Address City/[facility]/ZIP Co de Phone Number [facility] [address] [place] [address], [facility] [phone] * (ABNORMAL) TSH (03/23/2018 9:32 AM CDT) TSH 5.91(H) 0.30 - 5.00 uIU/mL 03/23/2018 5:17 PM CDT [facility] Blood specimen (specimen) 03/23/2018 9:32 AM CDT 03/23/2018 2:47 PM CDT Elyse Paredes MD LAB - BLOOD ORDERABL ES [facility] [address] [place] [address], [place] [facility] [address] [place] [address] from Last 3 Months or Most Recently Relevant to Health Maintenance Advance Directives For more information, please contact: [phone] * Full Code (Latest Code Status on File) Date Activated Date Inactivated Comments 09/03/2022 9:06 AM 09/08/2022 8:06 PM All basic and advanced life-sustaining interventions are performed as appropriate Question Answer Comments Code status determined by: Discussion with patie nt/ legal decision maker Care Teams Autocutter Relationship Specialty Start Date End Date Raguh Bae MD [facility] [address] [place] [address] PCP - General Emergency Medicine 04/22/22 Dagmar Kang MD [address], [address] [place] [address] Assigned Heart and Vascular Provider 11/23/23
--- OUTSIDE RECORDS SUMMARY | 2024-02-21 13:41 | XMS_ITS | Encounter Summary ---
Author Organization [place] Address [address] [place] [address]. [place] [address] Care Team Providers Care Road Roller Operator Hot Mix Name Role Phone Dagmar Kang MD Unavailable Elyse Paredes MD Primary Care Provider [phone] aDgmar Kang MD Unavailable Raghu Bae MD Primary Care Provider Nicole Salazar APRN PIPE CLEANING MACHINE OPERATOR Unavailable Candy vailable Dagmar Kang MD Unavailable Ashley Anderson PA-C Unavailable [phone] Dagmar Kang MD Unavailable Encounter Details Date Type Department Care Team (Late st Contact Info) Description 01/02/2021 Records - [facility] CONVERSION [...] on filedocumented in this encounter Care Teams Road Roller Operator Hot Mix Relationship Specialty Start Date End Date Elyse Paredes MD [address] [place] [address] PCP - General Family Practice 12/22/13 04/21/22 Raghu Bae MD [facility] [address] [place] [address] PCP - General Emergency Medicine 04/22/22 Dagmar Kang MD [address] [facility] [place] [address] Assigned Heart and Vascular Provider 02/14/21 02/27/22 Dagmar Kang MD [address] [facility] [place] [address] Assigned Heart and Vascular Provider 03/21/22 04/24/22 Nicole Salazar APRN [facility] Assigned Heart and Vascular Provider 04/25/22 08/28/22 Dagmar Kang MD [address] [facility] [place] [address] Assigned Heart and Vascular Provider 08/29/22 09/23/23 Ashley Anderson PA-C [address] [place] [address] [address] [place] [address] Assigned Heart and Vascular Provider 09/24/23 11/22/23 Dagmar Kang MD [address] [place] [address], [address] [place] [address] Assigned Heart and Vascular Provider 11/23/23 documented as of this encounter
--- OUTSIDE RECORDS SUMMARY | 2024-02-21 13:41 | XMS_ITS | Encounter Summary ---
Author Organization [place] Address [facility] [place] [address] Care Team Providers Care Consumer Affairs Manager Name Role Phone Raghu Bae MD Primary Care Provider Ashley Anderson PA-C Unavailable [phone] Reason for Referral * CV Testing (Routine) - Closed Specialty Diagnoses / Procedures Referred By Contac t Referred To Contact Cardiology Diagnoses S/P TAVR (transcatheter aortic valve replacement) Coronary artery disease involving [place] coronary artery of [place] heart, unspecified whether angina present Hypercholesterolemia CASTRO (dyspnea on exertion) Procedures Echocardiogram Complete ZZHC TTE W/DOPPLER, COMPLETE ZZHC ECHO COMPLETE W DOPPLER W CONTRAST ZZHC ECHO COMPLETE W DOPPLER W/O CONTRAST ZZHC IV PUSH SINGLE, INITIAL SUBSTANCE ZZHC US GUIDE FOR PERICARDIOCENTESIS ZZHC ECHO MYOCARD BX ZZC INJECTION, PERFLUTREN LIPID MICROSPHERES, PER ML ZZHC STATISTIC IV PUSH SINGLE INITIAL SUBSTANCE NM ECHO MYOCARD BX NM INJECTION, PERFLUTREN LIPID MICROSPHERES, PER ML NM TTE W/DOPPLER, COMPLETE NM IV PUSH SINGLE, INITIAL SUBSTANCE NM TTE W/DOPPLER, COMPLETE NM TTE W/DOPPLER, COMPLETE HC US GUIDE FOR PERICARDIOCENTESIS HC ECHO MYOCARD BX HC IV PUSH SINGLE, INITIAL SUBSTANCE HC STATISTIC IV PUSH SINGLE INITIAL SUBSTANCE HC ECHO COMPLETE W DOPPLER W CONTRAST HC ECHO COMPLETE W DOPPLER W/O CONTRAST Dagmar Kendrick MD [address] [facility], [address] [place] [address] [facility] Cardiac Testing [address] [place] [address] Referral ID Status Reason Start Date Expiration Date Visits Re quested Visits Authorized [id number] Closed 11/05/2023 11/04/2024 1 1 Reason for Visit * CV Testing (Routine) - Closed Specialty Diagnoses / Procedures Referred By Contac t Referred To Contact Cardiology Diagnoses S/P TAVR (transcatheter aortic valve replacement) Coronary artery disease involving [place] coronary artery of [place] heart, unspecified whether angina present Hypercholesterolemia CASTRO (dyspnea on exertion) Procedures Echocardiogram Complete ZZHC TTE W/DOPPLER, COMPLETE ZZHC ECHO COMPLETE W DOPPLER W CONTRAST ZZHC ECHO COMPLETE W DOPPLER W/O CONTRAST ZZHC IV PUSH SINGLE, INITIAL SUBSTANCE ZZHC US GUIDE FOR PERICARDIOCENTESIS ZZHC ECHO MYOCARD BX ZZC INJECTION, PERFLUTREN LIPID MICROSPHERES, PER ML ZZHC STATISTIC IV PUSH SINGLE INITIAL SUBSTANCE NM ECHO MYOCARD BX NM INJECTION, PERFLUTREN LIPID MICROSPHERES, PER ML NM TTE W/DOPPLER, COMPLETE NM IV PUSH SINGLE, INITIAL SUBSTANCE NM TTE W/DOPPLER, COMPLETE NM TTE W/DOPPLER, COMPLETE HC US GUIDE FOR PERICARDIOCENTESIS HC ECHO MYOCARD BX HC IV PUSH SINGLE, INITIAL SUBSTANCE HC STATISTIC IV PUSH SINGLE INITIAL SUBSTANCE HC ECHO COMPLETE W DOPPLER W CONTRAST HC ECHO COMPLETE W DOPPLER W/O CONTRAST Dagmar Kendrick MD [address] [facility], [address] [place] [address] [facility] Cardiac Testing [address] [place] [address] Referral ID Status Reason Start Date Expiration Date Visits Re quested Visits Authorized [id number] Closed 11/05/2023 11/04/2024 1 1 Encounter Details Date Type Department Care Team (Latest Contact Info) Description 11/15/2023 10:39 AM CDT - 11/15/2023 11:59 PM CDT Hospital Encounter [facility] Heart Care [address] [place] [address] Dagmar Kendrick MD [address] [facility], [address] [place] [address] S/P TAVR (transcatheter aortic valve replacement); Coronary artery disease involving [place] coronary artery of [place] heart, unspecified whether angina present; Hypercholesterolemi a; CASTRO (dyspnea on exertion) Discharge Disposition: Home or Self Care Social History Tobacco Use Types Packs/Day Years [...] Start Date End Date acetaminophen (TYLENOL) 650 MG CR tablet Take 1,300 mg by mouth every 8 hours as needed for mild pain or fever allopurinoL (ZYLOPRIM) 100 MG tablet Take 100 mg by mouth daily 12/26/2020 amoxicillin (AMOXIL) 500 MG tablet [AMOXICILLIN (AMOXIL) 500 MG TABLET] Take 2,000 mg by mouth as needed (prior to dental work). 08/08/2018 BD INSULIN PEN NEEDLE UF MINI 31 gauge x 3/16 Ndle [BD INSULIN PEN NEEDLE UF MINI 31 GAUGE X 3/16 NDLE] USE 4-5 PER DAY UTD 0 07/25/2017 cholecalciferol 25 MCG (1000 UT) TABS Take 1,000 Units by mouth daily evolocumab (REPATHA SURECLICK) 140 MG/ML prefilled autoinjectorIndications :Coronary artery disease involving [place] coronary artery of [place] heart without angina pectoris,Mixed hyperlipidemia,Statin intolerance ADMINISTER 1 ML(140 MG) UNDER THE SKIN EVERY 14 DAYS 6 mL 2 11/08/2023 exemestane (AROMASIN) 25 MG tablet 08/25/2023 famotidine (FOR PEPCID) 10 MG tablet Take 10 mg by mouth 2 times daily as needed (hearburn) 08/08/2018 insulin glargine (LANTUS SOLOSTAR) 100 UNIT/ML pen Inject 45 Units Subcutaneous At Bedtime . Gradually adjust as your appetite improves back to previous home dose of 30 units twice daily. 15 mL 09/07/2022 insulin lispro (HUMALOG) 100 unit/mL injection [INSULIN LISPRO (HUMALOG) 100 UNIT/ML INJECTION] Inject 6-10 Units under the skin 3 (three) times a day before meals. 09/17/2017 metoprolol succinate ER (TOPROL XL) 50 MG 24 hr tabletIndications:S/P TAVR (transcatheter aortic valve replacement) Take 1 tablet (50 mg) by mouth daily 30 tablet 09/08/2022 semaglutide (OZEMPIC) 0.25 mg or 0.5 mg(2 mg/1.5 mL) PnIj [SEMAGLUTIDE (OZEMPIC) 0.25 MG OR 0.5 MG(2 MG/1.5 ML) PNIJ] as directed 10/06/2019 venlafaxine (EFFEXOR-XR) 37.5 MG 24 hr capsule Take 37.5 mg by mouth daily 10/16/2020 XARELTO ANTICOAGULANT 20 MG TABS tablet Take 20 mg by mouth daily (with dinner) 07/25/2023 documented as of this encounter Plan of Treatment Not on file documented as of this encounter Procedures Procedure Name Priority Date/Time Associated Diagnosis Comments ECHO COMPLETE Routine 11/15/2023 11:41 AM CDT S/P TAVR (transcatheter aortic valve replacement) Coronary artery disease involving [place] coronary artery of [place] heart, unspecified whether angina present Hypercholesterolemia CASTRO (dyspnea on exertion) documented in this encounter Results * ECHO COMPLETE (11/15/2023 11:41 AM CDT) LVEF 60-65% CARDIOLOGY RESULTS Anatomical Region Laterality Modality Ultrasound, Ultr asound 11/15/2023 10:5 7 AM CDT Narrative 11/15/2023 1:32 PM CDT [id number]^AROLDO^DAGMAR^[place] [address] Name: IRVIN HOFFMAN : 1950 Study Date: 11/15/2023 10:57 AM Age: 73 yrs Gender: Female Patient Location: [facility] Reason For Study: S/P TAVR (transcatheter aortic valve replacement), Coronary maurice Ordering Physician: DAGMAR KENDRICK Referring Physician: DAGMAR KENDRICK Performed By: BEBETO BSA: 2.1 m2 Height: 62 in Weight: 255 lb BP: 138/67 mmHg Procedure Complete Echo Adult. Interpretation Summary Left ventricular size, wall motion and function are normal. The ejection fraction is 60-65%. Normal right ventricle size and systolic function. There is a bioprosthetic aortic valve. There is mild paravalvular regurgitation present. Left Ventricle Left ventricular size, wall motion and function are normal. The ejection fraction is 60-65%. There is normal left ventricular wall thickness. Left ventricular diastolic function is normal. No regional wall motion abnormalities noted. Right Ventricle Normal right ventricle size and systolic function. Atria Normal left atrial size. Right atrial size is normal. There is no color Doppler evidence of an atrial shunt. Mitral Valve There is mild mitral annular calcification. Tricuspid Valve Tricuspid valve leaflets appear normal. Right ventricle systolic pressure estimate normal. There is mild (1+) tricuspid regurgitation. Aortic Valve There is a bioprosthetic aortic valve. There is mild paravalvular regurgitation present. Pulmonic Valve The pulmonic valve is not well seen, but is grossly normal. This degree of valvular regurgitation is within normal limits. Vessels The aorta root is normal. Normal size ascending aorta. IVC diameter <2.1 cm collapsing >50% with sniff suggests a normal RA pressure of 3 mmHg. Pericardium There is no pericardial effusion. MMode/2D Measurements & Calculations IVSd: 0.91 cm LVIDd: 4.3 cm LVIDs: 2.7 cm LVPWd: 1.1 cm FS: 37.1 % LV mass(C)d: 140.9 grams LV mass(C)dI: 66.5 grams/m2 Ao root diam: 2.9 cm LA dimension: 3.6 cm asc Aorta Diam: 2.9 cm LA/Ao: 1.2 LVOT diam: 1.8 cm LVOT area: 2.5 cm2 Ao root diam index Ht(cm/m): 1.8 Ao root diam index BSA (cm/m2): 1.4 Asc Ao diam index BSA (cm/m2): 1.4 Asc Ao diam index Ht(cm/m): 1.8 EF Biplane: 60.6 % LA Volume (BP): 36.3 ml LA Volume Index (BP): 17.1 ml/m2 LA Volume Indexed (AL/bp): 20.2 ml/m2 RWT: 0.52 TAPSE: 2.4 cm Time Measurements MM HR: 63.0 BPM Doppler Measurements & Calculations MV E max ulises: 75.5 cm/sec MV A max ulsies: 96.4 cm/sec MV E/A: 0.78 MV dec time: 0.35 sec Ao V2 max: 246.3 cm/sec Ao max P.0 mmHg Ao V2 mean: 178.0 cm/sec Ao mean P.0 mmHg Ao V2 VTI: 57.0 cm JUDY(I,D): 1.1 cm2 JUDY(V,D): 1.0 cm2 LV V1 max P.8 mmHg LV V1 max: 97.4 cm/sec LV V1 VTI: 24.4 cm SV(LVOT): 62.1 ml SI(LVOT): 29.3 ml/m2 PA acc time: 0.10 sec TR max ulises: 200.0 cm/sec TR max P.0 mmHg AV Ulises Ratio (DI): 0.40 JUDY Index (cm2/m2): 0.51 E/E' av.9 Lateral E/e': 9.0 Medial E/e': 10.8 RV S Ulises: 14.8 cm/sec Report approved by: Wolf Gonzales 11/15/2023 01:32 PM Procedure Note Trey Levy MD - 11/15/2023 [id number]^AROLDO^DAGMAR^[place] [address] Name: IRVIN HOFFMAN : 1950 Study Date: 11/15/2023 10:57 AM Age: 73 yrs Gender: Female Patient Location: [facility] Reason For Study: S/P TAVR (transcatheter aortic valve replacement),Coronary maurice Ordering Physician: DAGMAR KENDRICK Referring Physician: DAGMAR KENDRICK Performed By: BEBETO BSA: 2.1 m2 Height: 62 in Weight: 255 lb BP: 138/67 mmHg Procedure Complete Echo Adult. Interpretation Summary Left ventricular size, wall motion and function are normal. The ejection fraction is 60-65%. Normal right ventricle size and systolic function. There is a bioprosthetic aortic valve. There is mild paravalvular regurgitation present. Left Ventricle Left ventricular size, wall motion and function are normal. The ejection fraction is 60-65%. There is normal left ventricular wall thickness.Left ventricular diastolic function is normal. No regional wall motion abnormalities noted. Right Ventricle Normal right ventricle size and systolic function. Atria Normal left atrial size. Right atrial size is normal. There is no color Doppler evidence of an atrial shunt. Mitral Valve There is mild mitral annular calcification. Tricuspid Valve Tricuspid valve leaflets appear normal. Right ventricle systolicpressure estimate normal. There is mild (1+) tricuspid regurgitation. Aortic Valve There is a bioprosthetic aortic valve. There is mild paravalvular regurgitation present. Pulmonic Valve The pulmonic valve is not well seen, but is grossly normal. This degreeof valvular regurgitation is within normal limits. Vessels The aorta root is normal. Normal size ascending aorta. IVC diameter <2.1cm collapsing >50% with sniff suggests a normal RA pressure of 3 mmHg. Pericardium There is no pericardial effusion. MMode/2D Measurements & Calculations IVSd: 0.91 cm LVIDd: 4.3 cm LVIDs: 2.7 cm LVPWd: 1.1 cm FS: 37.1 % LV mass(C)d: 140.9 grams LV mass(C)dI: 66.5 grams/m2 Ao root diam: 2.9 cm LA dimension: 3.6 cm asc Aorta Diam: 2.9 cm LA/Ao: 1.2 LVOT diam: 1.8 cm LVOT area: 2.5 cm2 Ao root diam index Ht(cm/m): 1.8 Ao root diam index BSA (cm/m2): 1.4 Asc Ao diam index BSA (cm/m2): 1.4 Asc Ao diam index Ht(cm/m): 1.8 EF Biplane: 60.6 % LA Volume (BP): 36.3 ml LA Volume Index (BP): 17.1 ml/m2 LA Volume Indexed (AL/bp): 20.2 ml/m2 RWT: 0.52 TAPSE: 2.4 cm Time Measurements MM HR: 63.0 BPM Doppler Measurements & Calculations MV E max ulises: 75.5 cm/sec MV A max ulises: 96.4 cm/sec MV E/A: 0.78 MV dec time: 0.35 sec Ao V2 max: 246.3 cm/sec Ao max P.0 mmHg Ao V2 mean: 178.0 cm/sec Ao mean P.0 mmHg Ao V2 VTI: 57.0 cm JUDY(I,D): 1.1 cm2 JUDY(V,D): 1.0 cm2 LV V1 max P.8 mmHg LV V1 max: 97.4 cm/sec LV V1 VTI: 24.4 cm SV(LVOT): 62.1 ml SI(LVOT): 29.3 ml/m2 PA acc time: 0.10 sec TR max ulises: 200.0 cm/sec TR max P.0 mmHg AV Ulises Ratio (DI): 0.40 JUDY Index (cm2/m2): 0.51 E/E' av.9 Lateral E/e': 9.0 Medial E/e': 10.8 RV S Ulises: 14.8 cm/sec Report approved by: Wolf Gonzales 11/15/2023 01:32 PM Dagmar Kendrick MD CV ECHO ORDERABLES documented in this encounter Visit Diagnoses Diagnosis S/P TAVR (transcatheter aortic valve replacement) Coronary artery disease involving [place] coronary artery of [place] heart, unspecified whether angina present Hypercholesterolemia Pure hypercholesterolemia CASTRO (dyspnea on exertion) Other dyspnea and respiratory abnormality documented in this encounter Care Teams Consumer Affairs Manager Relationship Specialty Start Date End Date Raghu Bae MD [facility] [address] [place] [address] PCP - General Emergency Medicine 04/22/22 Ashley Anderson PA-C [address] [facility] [address] [place] [address] Assigned Heart and Vascular Provider 09/24/23 11/22/23 documented as of this encounter
--- OUTSIDE RECORDS SUMMARY | 2024-02-21 13:41 | XMS_ITS | Encounter Summary ---
Author Organization [place] Address [address] [place] [address]. [place] [address] Care Team Providers Care Manager Call Center Name Role Phone Dagmar Kang MD Unavailable Elyse Paredes MD Primary Care Provider [phone] Dagmar Kang MD Unavailable Raghu Bae MD Primary Care Provider Nicole Salazar APRN CRIMINALIST Unavailable Candy vailable Dagmar Kang MD Unavailable Ashley Anderson PA-C Unavailable [phone] Dagmar Kang MD Unavailable Encounter Details Date Type Department Care Team (Late st Contact Info) Description 08/09/2017 Records - [facility] CONVERSION [...] filedocumented in this encounter Care Teams Manager Call Center Relationship Specialty Start Date End Date Elyse Paredes MD [address] [place] [address] PCP - General Family Practice 12/22/13 04/21/22 Raghu Bae MD [facility] [address] [place] [address] PCP - General Emergency Medicine 04/22/22 Dagmar Kang MD [address] [facility] [place] [address] Assigned Heart and Vascular Provider 02/14/21 02/27/22 Dagmar Kang MD [address] [facility] [address] [place] [address] Assigned Heart and Vascular Provider 03/21/22 04/24/22 Nicole Salazar APRN [facility] Assigned Heart and Vascular Provider 04/25/22 08/28/22 Dagmar Kang MD [address] [facility] [place] [address] Assigned Heart and Vascular Provider 08/29/22 09/23/23 Ashley Anderson PA-C [address] [place] [address] [address] [place] [address] Assigned Heart and Vascular Provider 09/24/23 11/22/23 Dagmar Kang MD [address] [place] [address], [address] [place] [address] Assigned Heart and Vascular Provider 11/23/23 documented as of this encounter
--- OUTSIDE RECORDS SUMMARY | 2024-02-21 13:42 | XMS_ITS | Encounter Summary ---
Author Organization [facility] Address [address] [place] [address] Care Team Providers Care Epic Ambulatory Analysts Name Role Phone Elyse Paredes MD Primary Care Provider [phone] Encounter Details Date Type Department Care Team (Late Contact Info) Description 09/09/2017 Scanned History External to Transferred Record, Provider [facility] Social History Tobacco Use Types Packs/Day Years Used Date Smoking Tobacco: Former Cigarettes Q uit: 08/02/1981 Smokeless Tobacco: Never Alcohol Use Standard Drinks/Week Comments No 0 (1 standard drink = 0.6 oz pur e alcohol) Sex and Gender Information Value Date Recorded Sex Assigned at Not on file Gender Identity Not on file Sexual Orientation Not on file documented as of this encounter Plan of Treatment Upcoming Encounters Date Type Department Care Team (Late Contact Info) Description 02/29/2024 1:20 PM CDT Appointment [facility] at [address] [address] Elisa Madrid MBBS [address] [place] [address] documented as of this encounter Goals Goal Patient Goal Type Associated Problems Recent Progress Patient-Stated? Author Being active Diabetes Education Diabetes Education No Tanner Carranza RD, CDE Note: Being Active: Continue with Cardiac Rehab, 3 days per week, and work on gradually increasing your daily exercise on other days. Eating healthy Diabetes Education Diabetes Education No Tanner Carranza RD, CDE Note: Eating Healthy: Try and limit 30-45 grams carb per meal and 15 grams carb per snack. Work on healthy evening snack, such as raw carrots or fresh fruit or low fat yogurt. Monitoring my diabetes Diabetes Education Diabetes Education Tanner Loredo, RD, CDE Note: Monitoring My Diabetes: Continue to check blood sugars before each meal and bedtime. documented as of this encounter Visit Diagnoses Not on filedocumented in this encounter Care Teams Epic Ambulatory Analysts Relationship Specialty Start Date End Date Elyse Paredes MD [address] [place] [address] PCP - General Family Practice 03/19/17 documented as of this encounter
--- OUTSIDE RECORDS SUMMARY | 2024-02-21 13:42 | XMS_ITS | Encounter Summary ---
Author Organization [facility] Address [address] [place] [address] Care Team Providers Care Web Application Developer Name Role Phone Elyse Paredes MD Primary Care Provider [phone] Encounter Details Date Type Department Care Team (Late Contact Info) Description 05/09/2019 Refill Order Specialty [facility] [address] [place] [address] [phone] Juan Cho MD [address] [place] [address] Social History Tobacco Use Types Packs/Day Years [...] Upcoming Encounters Date Type Department Care Team ([facility] Contact Info) Description 02/29/2024 1:20 PM CDT Appointment [facility] at [address] [address] Elisa Madrid MBBS [address] [place] [address] documented as of this encounter Goals Goal Patient Goal Type Associated Problems Recent Progress Patient-Stated? Author Being active Diabetes Education Diabetes Education No Tanner Carranza, RD, CDE Note: Being Active: Continue with Cardiac Rehab, 3 days per week, and work on gradually increasing your daily exercise on other days. Eating healthy Diabetes Education Diabetes Education No Tanner Carranza, ARMAND, CDE Note: Eating Healthy: Try and limit 30-45 grams carb per meal and 15 grams carb per snack. Work on healthy evening snack, such as raw carrots or fresh fruit or low fat yogurt. Monitoring my diabetes Diabetes Education Diabetes Education No Tanner Carranza, ARMAND, CDE Note: Monitoring My Diabetes: Continue to check blood sugars before each meal and bedtime. documented as of this encounter Visit Diagnoses Diagnosis Encounter for long-term (current) use of medications- Primary Encounter for long-term (current) use of other medications documented in this encounter Care Teams Web Application Developer Relationship Specialty Start Date End Date Elyse Paredes MD [address] [place] [address] PCP - General Family Practice 03/19/17 documented as of this encounter
--- OUTSIDE RECORDS SUMMARY | 2024-02-21 13:42 | XMS_ITS | Encounter Summary ---
Author Organization [facility] Address [address], [place] [address] Care Team Providers Care Membership Correspondent Name Role Phone Elyse Paredes MD Primary Care Provider [phone] Encounter Details Date Type Department Care Team (Late Contact Info) Description 08/03/2019 Refill Order Specialty Center [address] [facility] [address] [place] [phone] Gabrielle Morris, ROD HANGER, [facility] [address] [place] [address] Social History Tobacco Use Types Packs/Day Years [...] 02/29/2024 1:20 PM CDT Appointment [facility] at [address] [address] Elisa Madrid MBBS [address] [place] [address] documented as of this encounter Goals Goal [...] medications documented in this encounter Care Teams Membership Correspondent Relationship Specialty Start Date End Date Elyse Paredes MD [address] [place] [address] PCP - General Family Practice 03/19/17 documented as of this encounter
--- OUTSIDE RECORDS SUMMARY | 2024-02-21 13:42 | XMS_ITS | Encounter Summary ---
Author Organization [facility] Address [address] [place] [address] Care Team Providers Care Mixing Tank Operator Name Role Phone Elyse Paredes MD Primary Care Provider [phone] Encounter Details Date Type Department Care Team (Late Contact Info) Description 05/30/2021 Refill Order Specialty Center [address] [facility] [address] [place] [address] [phone] Juan Cho MD [address] [place] [address] Social History Tobacco Use Types Packs/Day Years [...] Upcoming Encounters Date Type Department Care Team ([facility] Contact Info) Description 02/29/2024 1:20 PM CDT Appointment [facility] at [address] [address] Elisa Madrid MBBS [address] [place] [address] documented as of this encounter Goals Goal Patient Goal Type Associated Problems Recent Progress Patient-Stated? Author Being active Diabetes Education Diabetes Education No Tanenr Carranza, RD, CDE Note: Being Active: Continue [...] medications documented in this encounter Care Teams Mixing Tank Operator Relationship Specialty Start Date End Date Elyse Paredes MD [address] [address] PCP - General Family Practice 03/19/17 documented as of this encounter
--- OUTSIDE RECORDS SUMMARY | 2024-02-21 13:42 | XMS_ITS | Encounter Summary ---
Author Organization [facility] Address [address] [address] Care Team Providers Care Pleat Patternmaker Name Role Phone Elyse Paredes MD Primary Care Provider [phone] Encounter Details Date Type Department Care Team (Late Contact Info) Description 01/21/2017 Scanned History External to Transferred Record, Provider [facility] Social History Tobacco Use Types Packs/Day Years Used Date Smoking Tobacco: Former Cigarettes Q uit: 08/02/1981 Alcohol Use Standard Drinks/Week Comments Not [...] Info) Description 02/29/2024 1:20 PM CDT Appointment [facility] at [address] [address] Elisa Madrid MBBS [address] [place] [address] documented as of this encounter Visit Diagnoses Not on filedocumented in this encounter Care Teams Pleat Patternmaker Relationship Specialty Start Date End Date Elyse Paredes MD [address] [place] [address] PCP - General Family Practice 03/19/17 documented as of this encounter
--- OUTSIDE RECORDS SUMMARY | 2024-02-21 13:42 | XMS_ITS | Clinical Summary ---
Author Organization [email or web address] [facility] Address [address] [place] [address] Care Team Providers Care Ophthalmic Technician Name Role Phone Elyse Paredes MD Primary Care Provider [phone] Source Comments You are receiving this document as you are listed as the primary care provider,follow-up provider, or the patient has been referred to you for consultation.This is in compliance with the Medicare and[facility] EHR Incentive Program,which states Providers who transition their patient to another setting of careor provider of care or refers their patient to another provider of care shouldprovide summary care record for each transition of care or referral. [employer] Allergies Active Allergy Reactions Criticality Noted Date Comments Erythromycin Rash 04/04/2011 Lisinopril Other, see comments 06/17/2017 Dry cough Metformin Other, see comments, Nausea And Vomiting 06/17/2017 diarrhea Medications Medication Sig Dispensed Refills Start Date End Date Status famotidine (PEPCID) 10 MG tabletIndications :Uncontrolled diabetes mellitus type 2 without complications, unspecified fpc insulin use status Take 1 Tablet (10 mg) by mouth daily as needed. Active aspirin, enteric-coated 81 MG enteric coated tabletIndications :Uncontrolled type 2 diabetes mellitus without complication, with long-term current use of insulin Take 1 Tablet (81 mg) by mouth daily. 90 Tab 3 06/17/2017 Active ACCU-CHEK GERALD PLUS test stripIndications: Uncontrolled type 2 diabetes mellitus without complication, with long-term current use of insulin Check fasting / before meals, and at bedtime, . Pharmacy dispense brand based on insurance. 350 Strip 6 04/27/2018 Active Continuous Blood Gluc Operators School Manager (DEXCOM G6 GROCERY CLERK MARKING) DEVIIndications:U ncontrolled type 2 diabetes mellitus, with long-term current use of insulin Use as directed for continuous glucose monitoring. 1 Device 10/17/2019 Active insulin lispro (HUMALOG) 100 UNIT/ML injection vial Use 10 units as a base with meals, plus sliding scale. Max dose 70 units daily 30 mL 11 11/25/2020 Active Additional Information Patient taking differently: 5-10 Units, Use 5-10 units as a base with meals, plus sliding scale. Max dose 70 units daily, Reported on 01/14/2023 insulin glargine (LANTUS) 100 UNIT/ML injection Inject 48 Units subcutaneously daily. Active acetaminophen (TYLENOL ARTHRITIS) 650 MG controlled release tablet Take 2 Tablets (1,300 mg) by mouth every 8 hours as needed for Pain. Active calcium carbonate (TUMS) 500 MG chewable tablet Chew and swallow 1 Tablet (500 mg) by mouth two times a day. Active cholecalciferol (VITAMIN D3) 25 MCG (1000 UT) tablet Take 1 Tablet (1,000 Units) by mouth daily. Active Continuous Blood Gluc Transmit (DEXCOM G6 TRANSMITTER) MISCIndications:O besity, unspecified classification, unspecified obesity type, unspecified whether serious comorbidity present (HRC) CHANGE EVERY 3 MONTHS 1 Each 2 05/30/2021 Active allopurinol (ZYLOPRIM) 100 MG tabletIndications :Hyperuricemia TAKE 1 TABLET BY MOUTH DAILY 90 Tablet 06/09/2021 Active Continuous Blood Gluc Sensor (DEXCOM G6 SENSOR) MISCIndications:O besity, unspecified classification, unspecified obesity type, unspecified whether serious comorbidity present (HRC) CHANGE SENSOR EVERY 10 DAYS 3 Each 5 06/27/2021 Active OZEMPIC, 1 MG/DOSE, 4 MG/3ML injection INJECT 1 MG UNDER THE SKIN ONCE WEEKLY 12 mL 1 10/16/2021 Active metoprolol succinate (TOPROL XL) 25 MG 24 hour release tabletIndications :Obesity, unspecified classification, unspecified obesity type, unspecified whether serious comorbidity present (HRC) TAKE 1 TABLET BY MOUTH DAILY 90 Tablet 11/27/2021 Active SURE COMFORT PEN NEEDLES 31G X 5 MM USE FOUR TO FIVE TIMES DAILY 100 Each 4 11/27/2021 Active tamoxifen (NOLVADEX) 20 MG tabletIndications :Malignant neoplasm of overlapping sites of left breast in female, estrogen receptor positive (HRC) Take 1 Tablet (20 mg) by mouth daily. 90 Tablet 3 01/29/2022 Active apixaban (ELIQUIS) 5 MG tabletIndications :Deep vein thrombosis (DVT) of right lower extremity, unspecified chronicity, unspecified vein (HRC) Take 1 Tablet (5 mg) by mouth two times a day. 01/14/2023 Active venlafaxine (EFFEXORXR) 37.5 MG 24 hour release capsule Take 1 Capsule (37.5 mg) by mouth daily. 11/03/2022 Active allopurinol (ZYLOPRIM) 100 MG tablet Take 1 Tablet (100 mg) by mouth daily. Active metoprolol succinate (TOPROL XL) 50 MG 24 hour release tablet Take 1 Tablet (50 mg) by mouth daily. 09/08/2022 Active exemestane (AROMASIN) 25 MG tabletIndications :Malignant neoplasm of overlapping sites of left breast in female, estrogen receptor positive (HRC) Take 1 Tablet (25 mg) by mouth daily. 90 Tablet 3 02/26/2023 02/26/2024 Active Active Problems Problem Noted Date Diagnosed Date Hyperuricemia 02/19/2020 CKD (chronic kidney disease) stage 3, GFR 30-59 ml/min 02/19/2020 Microalbuminuria 02/19/2020 Malignant neoplasm of overla pping sites of left female breast 08/11/2018 Cancer Staging:Pathologic stage from 10/27/2018:Stage IA(pT1c, pN0(sn), cM0, G2, ER+, MS+, HER2-, Oncotype DX score: 10) - Signed by Deloris Trujillo MD on 10/27/2018 Overview: Added automatically from request for surgery [id number] Coronary artery disease invo lving seneca coronary artery of seneca heart without angina pectoris 08/09/2018 Diabetes Education 08/13/2017 Uncontrolled type 2 diabetes mellitus with hyperosmolarity without coma, with long-term current use of insulin 06/17/2017 Essential hypertension 06/17/2017 Dyslipidemia, goal LDL below 100 06/17/2017 Uncontrolled type 2 diabetes mellitus without complication, with long-term current use of insulin 06/17/2017 Uncontrolled type 2 diabetes mellitus, with long-term current use of insulin 03/19/2017 DEDE (obstructive sleep apnea) 03/19/2017 Immunizations Name Administration Dates Next Due Flu Vac (3+ yrs) 07/12/2014, 3,03/28/2012,2010,05/15/2010,05/22/2005 Flu Vac Preserv Free (3+yrs) 04/03/2009 Fluzone Qiv Multidose Vial 0 .25 (6-35 Mos) 05/08/2017,05/28/2016,05/09/2015 Influenza (Fluad) 05/01/2020,04/13/2019,04/20/20 18 Influenza IIV3 (Trivalent) F luzone Highdose, 65+ Yrs (53709) 05/21/2017 Influenza, Unspecified Formulation 05/21/2017 Moderna Monovalent 12+ 10/25/2020,09/27/2020 PCV13 (Prevnar) 03/23/2018 PPSV23 (Pneumovax) 04/13/2019,07/30/2011 Td, Preservative Free 11/01/2003,12/06/1992 Tdap 08/08/2012 Zoster (Zostavax) 07/24/2015 Zoster RZV (Shingrix) 06/08/2019,01/26/2019 Family History Medical History Relation Name Comments [...] Sign Reading Time Taken Comments Blood Pressure 104/68 01/14/2023 12:52 PM CDT Pulse 63 01/14/2023 12:52 PM CDT Temperature 36.2 ??C (97.1 ??F) 01/14/2023 1 2:52 PM CDT Respiratory Rate 18 01/14/2023 12:5 2 PM CDT Oxygen Saturation 95% 01/14/2023 12: 52 PM CDT Inhaled Oxygen Concentration - - Weight 118.2 kg (260 lb 9.6 oz) 023 12:52 PM CDT Height 158.8 cm (5' 2.5) 01/29/2022 1:04 PM CDT Body Mass Index 46.9 01/29/2022 1:04 PM CDT Plan of Treatment Upcoming Encounters Date Type Department Care Team (Late st Contact Info) Description 02/29/2024 1:20 PM CDT Appointment [facility] at [address] [address] Elisa Madrid MBBS [address] [place] [address] Health Maintenance Due Date Last Done Comments Diabetes: Eye Exam 1950 Diabetes: Foot Exam 1950 Hep C Screening (Preventive Services) 1950 Diabetes: Creatinine 02/26/2022 02/26/2021, 01/17/2021, 10/07/2020, Additional history exists Diabetes: Urine Microalbumin 02/26/2022 02/26/2021, 01/20/2021, 10/07/2020, Additional history exists Diabetes: HGBA1C 12/04/2022 09/06/2022, 11/2022, 02/26/2021, Additional history exists COVID-19 Vaccine ( season) 2023 04/10/2022, 11/19/2021, 05/26/2021, Additional history exists Medicare Annual Wellness Visit 08/02/2023 Colonoscopy 11/02/2023 11/01/2013 Influenza (#1) 2024 04/27/2022, 04/03, 05/01/2020, Additional history exists Mammogram 09/28/2024 09/28/2023, 08/02, 07/31/2021, Additional history exists Diabetes: Lipid Panel 02/26/2026 02/26/2021 , 01/20/2021, 08/06/2020, Additional history exists DTaP/Tdap/Td (3 - Tdap) 07/09/2032 07/09/20, 08/08/2012, 11/01/2003, Additional history exists Dexa Completed 01/26/2019 Pneumococcal 65+ Yrs Completed 04/13/2019, 03/23/2018, 07/30/2011 Zoster/Shingles Completed 06/08/2019, 01/01, 07/24/2015 HepA Aged Out No longer eligi ble based on patient's age to complete this topic HepB Aged Out No longer eligi ble based on patient's age to complete this topic Hib Aged Out No longer eligi ble based on patient's age to complete this topic IPV (Polio) Aged Out No longer eligi ble based on patient's age to complete this topic MCV4 Aged Out No longer eligi ble based on patient's age to complete this topic Goals Goal Patient Goal Type Associated Problems [...] blood sugars before each meal and bedtime. Procedures Procedure Name Priority Date/Time Associated Diagnosis Comments MM MAMMOGRAM SCREENING BILAT W 3D BRAVO W CAD Routine 09/28/2023 12:11 PM PROPERTY MANAGEMENT ASSISTANT Malignant neoplasm of overlapping sites of left breast in female, estrogen receptor positive (HRC) HGB A1C (EXTERNAL RESULT) Routine 09/06/2022 4:57 AM PROPERTY MANAGEMENT ASSISTANT BASIC METABOLIC PANEL Routine 02/26/2021 1:09 PM CDT Stage 3a chronic kidney disease (HRC) ALBUMIN/CREAT RATIO Routine 02/26/2021 1 :09 PM CDT Obesity, unspecified classification, unspecified obesity type, unspecified whether serious comorbidity present LDL CHOLESTEROL, DIRECT MEASURED Routine 02/26/2021 1:09 PM CDT Obesity, unspecified classification, unspecified obesity type, unspecified whether serious comorbidity present DXA BONE DENSITY SPINE/HIP Routine 01/26/2019 11:20 AM CDT Malignant neoplasm of left breast in female, estrogen receptor positive, unspecified site of breast (HRC) from Last 3 Months or Most Recently Relevant to Health Maintenance Results * MM Mammogram Screening Bilat W 3D Bravo W CAD (09/28/2023 12:11 PM PROPERTY MANAGEMENT ASSISTANT) Anatomical Region Laterality Modality Breast Bilateral Mammography Impressions 09/29/2023 8:04 AM PROPERTY MANAGEMENT ASSISTANT : ACR BI-RADS Category 2: Benign RECOMMENDATION: Follow Up Imaging in 12 months - Bilateral The results and recommendations of this examination will be communicated to the patient. Narrative 09/29/2023 8:04 AM PROPERTY MANAGEMENT ASSISTANT MM MAMMOGRAM SCREENING BILAT W 3D BRAVO W CAD performed on 09/28/23 Compared to: 08/13/2022 MM Mammogram Screening Bilat W 3D Bravo W CAD, 07/31/2021 MM Mammogram Screening Bilat W 3D Bravo W CAD, and 07/22/2020 MM Mammogram Screening Bilat W 3D Bravo W CAD ?? FINDINGS: Bilateral screening mammogram was performed with the assistance of Computer-Aided Detection and breast tomosynthesis. The breasts have scattered areas of fibroglandular density. There are breast conservation changes on the left. There is no radiographic evidence of malignancy. ?? Denise Aguirre FOREIGN LAW CONSULTANT, RAILROAD CONDUCTOR RAD NILAM * LDL Direct (02/26/2021 1:09 PM CDT) LDL, Direct 60 <=130 mg/dL 02/26/2021 4:41 PM CDT [facility] Blood Venipuncture / Unknown 02/26/2021 1:09 PM CDT 02/26/2021 1:09 PM CDT Juan Cho MD LAB_1 [facility] [address] [phone] * (ABNORMAL) Basic Metabolic Panel (02/26/2021 1:09 PM CDT) Sodium 138 136 - 145 mmol/L 02/26/2021 4:53 PM CDT [facility] Potassium 4.6 3.5 - 5.1 mmol/L 02/26/2021 4:53 PM T [facility] Chloride 106 98 - 109 mmol/L 02/26/2021 4:53 PM CDT [facility] CO2 24 20 - 29 mmol/L 02/26/2021 4:53 PM CDT [facility] Anion Gap 8 7 - 16 mmol/L 02/26/2021 4:53 PM T [facility] Calcium 9.5 8.4 - 10.4 mg/dL 02/26/2021 4:53 PM T [facility] BUN 18 7 - 26 mg/dL 02/26/2021 4:53 PM T [facility] Creatinine 1.22(H) 0.55 - 1.02 mg/dL 02/26/2021 4:53 PM T [facility] GFR, Estimated 46(L) >60 mL/min/1. 73m2 02/26/2021 4:53 PM T [facility] Glucose 162(H) 70 - 100 mg/dL 02/26/2021 4:53 PM T [facility] Comment:The given reference range is for the fasting state. Non-fasting reference range for glucose is 70 - 180 mg/dL. Hours Fasting 12 02/26/2021 4:53 PM CDT [facility] Blood Venipuncture / Unknown 02/26/2021 1:09 PM CDT 02/26/2021 1:09 PM CDT Narrative [facility] - 02/26/2021 4:53 PM CDT The National Kidney Disease Education Program suggests measuring Cystatin C in patients with eGFRcrea of 45 to 59 ml/min/1.73^2 who do not have other markers of kidney damage (i.e. elevated urine Albumin/Creatinine Ratio or a prior Cystatin C confirming the presence of chronic kidney disease). Prasanna Rivera MD LAB_1 Performing Organization Address [facility] de Phone Number [facility] [id number] [place] [address] [facility] [address] [place] [id number] [place] [address] * Microalb / Creat Ratio (02/26/2021 1:09 PM CDT) Albumin, Urine, Random 7.3 mg/L 02/26/2021 5:09 PM CDT [facility] Creatinine, Urine, Random 100 >20 mg/dL 02/26/2021 5:09 PM CDT [facility] Albumin/Creati nine Ratio, Urine, Random 7 <30 mg/g 02/26/2021 5:09 PM CDT [facility] Urine Non-blood Collection / Unknown 02/26/2021 1:09 PM CDT 02/26/2021 1:09 PM CDT Juan Cho MD LAB_1 Performing Organization Address [facility] de Phone Number [facility] [address] [place] [address], [facility] [phone] * DEXA Bone Density Spine/Hip (01/26/2019 11:20 AM CDT) Anatomical Region Laterality Modality Lower Extremity, Spine, Hip, L-Spine Other Narrative 01/26/2019 2:02 PM CDT WHO Criteria for the diagnosis of osteoporosis: T-score >-1 Normal T-score between -1 and -2.5 Osteopenia T-score <-2.5 Osteoporosis Fracture risk: T-score -1 ?? 2 times increased ?-2 ?? 4 times increased ?-3 ?? 6 times increased *With previous fragility fracture, risk of subsequent fracture doubles again SCREENING FOR OSTEO, HOLD CALCIUM Indication:Postmenopausal disorder Compressor Station Engineer Chief and Model of Instrument: SaltStack Demographics Age: 68 y.o. Gender: female Height :5' 2 Weight (lbs):280lbs Race: Medical/Surgical History Menstrual periods:None Age of menopause:57 History of hip fractures in parents:Yes History of previous fractures occurring spontaneously, or a fracture as a result of a fall from a standing height or less:No If yes, indicated area: Glucocorticoids use:No Currently taking medication:None Have or had listed medical conditions:None Dietary/Habit Alcohol 3units or more per day (on average):No Currently smoking:No Other pertinent history: Dual-X-ray Absorptiometry (DXA Results) AP spine (L2-L4)(L1 EXCLUDED) Left hip (neck) Left ??hip (total) BMD (gm/cm2) 1.010 0.857 1.047 ? T score -0.6 0.1 0.9 ? Z score 1.3 1.7 2.2 ?? %change from previous scan dated: ? Diagnosis: *No evidence of osteopenia/osteoporosis. Recommendations:. *Ensure appropriate calcium and vitamin D intake. DXA Scan Follow-up When do you repeat a DXA scan? This depends on a number of factors, including baseline DXA scan results and risk factors for accelerated bone loss. ??Timing of follow up scan should be individualized. ??These are general recommendations, but if a patient has significant risk factors for accelerated bone loss that are not noted on the DXA report, more aggressive follow up should be pursued 1. In women and men with low bone mass (T-score -2.00 to -2.49) at any site or who have risk factors for ongoing bone loss (eg, glucocorticoid use, hyperparathyroidism, aromatase inhibitors, etc.), consider a follow-up DXA approximately every one to two years as long as the risk factor persists 2. In women 65 years of age and older at baseline screening, with low bone mass (T-score -1.50 to -1.99) at any site, and with no risk factors for accelerated bone loss, consider a follow-up DXA in three to five years. ?? For women under 65 years old and men, there is no consensus recommendation due to the paucity of data. ?? 3. In women 65 years of age and older with normal or slightly low bone mass (T-score -1.01 to -1.49) at baseline measurement and no risk factors for accelerated bone loss, consider a follow-up DXA in 10 to 15 years. ?? For women under 65 years old and men, there is no consensus recommendation due to the paucity of data. 4. In patients with osteoporosis or who? s FRAX score suggests treatment should be initiated, consider a follow-up DXA in one to two years. 5. In patients who are currently on treatment for low bone mass, consider repeating DXA scan one to two years after initiating treatment and possibly less frequently thereafter. ?? There are no recommendations for men <50 years old, or premenopausal women. The FRAX?? tool has been developed by WHO to evaluate fracture risk to patients. It is based on individual patient models that integrate the risks associated with clinical risk factors as well as bone mineral density (BMD) at the femoral neck. The FRAX?? algorithms give the 10-year probability of fracture. The output is a 10-year probability of hip fracture and the 10-year probability of a major osteoporotic fracture (clinical spine, forearm, hip or shoulder fracture). Consider FDA-approved medical therapies in postmenopausal women and men aged 50 years and older, based on the following: ?? A hip or vertebral (clinical or morphometric) fracture. ?? T-score ? -2.5 at the femoral neck or spine after appropriate evaluation to exclude secondary causes. ?? Low bone mass(T-score -1.0 and -2.5 at the femoral neck or spine) and a 10-year probability of a hip fracture ? 3% or a 10-year probability of a major osteoporosis-related fracture ? 20% based on the [place]-adapted WHO algorithm. ?? Clinicians judgment and/or patient preferences may indicate treatment for people with 10-year fracture probabilities above or below these levels. ?? Elisa ORTEGA RAD DEXA from Last 3 Months or Most Recently Relevant to Health Maintenance Care Teams Ophthalmic Technician Relationship Specialty Start Date End Date Elyse Paredes MD [address] [place] [address] PCP - General Family Practice 03/19/17
--- OUTSIDE RECORDS SUMMARY | 2024-02-21 13:42 | XMS_ITS | Encounter Summary ---
Author Organization [facility] Address [address] [place] [address] Care Team Providers Care Granite Sandblaster Apprentice Name Role Phone Elyse Paredes MD Primary Care Provider [phone] Encounter Details Date Type Department Care Team (Late Contact Info) Description 09/16/2018 Consent for Procedure/Treatme [facility] INFORMED CONSENT RECORD Social History Tobacco Use Types Packs/Day [...] Info) Description 02/29/2024 1:20 PM CDT Appointment [facility] at [address] [address] Elisa Madrid MBBS [address] [place] [address] documented as of this encounter Goals Goal [...] on filedocumented in this encounter Care Teams Granite Sandblaster Apprentice Relationship Specialty Start Date End Date Elyse Paredes MD [address] [place] [address] PCP - General Family Practice 03/19/17 documented as of this encounter
--- OUTSIDE RECORDS SUMMARY | 2024-02-21 13:42 | XMS_ITS | Encounter Summary ---
Author Organization [facility] Address [address] [address] Care Team Providers Care Supply Chain Coordinator Name Role Phone Elyse Paredes MD Primary Care Provider [phone] Encounter Details Date Type Department Care Team (Late Contact Info) Description 08/05/2018 Consent for Procedure/Treatme nt [facility] RH I-125 RADIOACTIVE SEED WRITTEN DIRECTIVE Social History Tobacco Use Types Packs/Day [...] 02/29/2024 1:20 PM CDT Appointment [facility] at [address] [address] Elisa Madrid MBBS [address] [place] [address] documented as of this encounter Goals Goal [...] my diabetes Diabetes Education Diabetes Education Tanner Loredo RD, CDE Note: Monitoring My Diabetes: Continue to check blood sugars before each meal and bedtime. documented as of this encounter Visit Diagnoses Not on filedocumented in this encounter Care Teams Supply Chain Coordinator Relationship Specialty Start Date End Date Elyse Paredes MD [address] [place] [address] PCP - General Family Practice 03/19/17 documented as of this encounter
--- OUTSIDE RECORDS SUMMARY | 2024-02-21 13:42 | XMS_ITS | Encounter Summary ---
Author Organization [facility] Address [address], [place] [address] Care Team Providers Care Patternmaker Helper Name Role Phone Elyse Paredes MD Primary Care Provider [phone] Encounter Details Date Type Department Care Team (Late Contact Info) Description 10/27/2018 Consent for Procedure/Treatme [facility] INFORMED CONSENT RECORD Social History Tobacco Use [...] Info) Description 02/29/2024 1:20 PM CDT Appointment [facility] at [address] [address] Elisa Madrid MBBS [address] [place] [address] documented as of this encounter Goals Goal [...] on filedocumented in this encounter Care Teams Patternmaker Helper Relationship Specialty Start Date End Date Elyse Paredes MD [address] [place] [address] PCP - General Family Practice 03/19/17 documented as of this encounter
--- OUTSIDE RECORDS SUMMARY | 2024-02-21 13:42 | XMS_ITS | Encounter Summary ---
Author Organization [facility] Address [address] [place] [address] Care Team Providers Care Psychology Assistant Name Role Phone Elyse Paredes MD Primary Care Provider [phone] Encounter Details Date Type Department Care Team (Late Contact Info) Description 10/15/2021 Refill Order [facility] [address] [place] [address] [phone] Juan Cho MD [address] [place] [id number] Social History Tobacco Use Types Packs/Day [...] Upcoming Encounters Date Type Department Care Team ([facility] Contact Info) Description 02/29/2024 1:20 PM CDT [facility]ointment [facility] at [address] [address] Elisa Madrid MBBS [address] [place] [id number] documented as of this encounter Goals Goal [...] medications documented in this encounter Care Teams Psychology Assistant Relationship Specialty Start Date End Date Elyse Paredes MD [address] [place] [address] PCP - General Family Practice 03/19/17 documented as of this encounter
--- OUTSIDE RECORDS SUMMARY | 2024-02-21 13:42 | XMS_ITS | Encounter Summary ---
Author Organization [facility] Address [address], [place] [address] Care Team Providers Care Motor Winder Name Role Phone Elyse Paredes MD Primary Care Provider [phone] Encounter Details Date Type Department Care Team (Late Contact Info) Description 09/16/2018 Consent for Procedure/Treatme [facility] INFORMED CONSENT RECORD Social History Tobacco Use [...] 02/29/2024 1:20 PM CDT Appointment [facility] at [address] [address] Elisa Madrid MBBS [address] [place] [address] documented as of this encounter Goals Goal [...] on filedocumented in this encounter Care Teams Motor Winder Relationship Specialty Start Date End Date Elyse Paredes MD [address] [place] [address] PCP - General Family Practice 03/19/17 documented as of this encounter
--- OUTSIDE RECORDS SUMMARY | 2024-02-21 13:42 | XMS_ITS | Encounter Summary ---
Author Organization [facility] Address [address], [place] [address] Care Team Providers Care Commission Clerk Name Role Phone Elyse Paredes MD Primary Care Provider [phone] Encounter Details Date Type Department Care Team (Late Contact Info) Description 07/28/2018 Consent for Procedure/Treatme [facility] INFORMED CONSENT RECORD Social History Tobacco Use [...] Info) Description 02/29/2024 1:20 PM CDT Appointment [facility] at [address] [address] Elisa [address] MBBS [address] [place] [address] documented as of this encounter Goals Goal [...] on filedocumented in this encounter Care Teams Commission Clerk Relationship Specialty Start Date End Date Elyse Paredes MD [address] [place] [address] PCP - General Family Practice 03/19/17 documented as of this encounter
--- OUTSIDE RECORDS SUMMARY | 2024-02-21 13:42 | XMS_ITS | Encounter Summary ---
Author Organization [facility] Address [address], [place] [address] Care Team Providers Care Cradle Slide Maker Name Role Phone Elyse Paredes MD Primary Care Provider [phone] Encounter Details Date Type Department Care Team (Late Contact Info) Description 10/27/2018 Consent for Procedure/Treatme nt [facility] CONSENT FOR RADIATION THERAPY Social History Tobacco Use Types Packs/Day [...] 02/29/2024 1:20 PM CDT Appointment [facility] at [address] [address] Elisa Madrid MBBS [address] [place] [address] documented as of this encounter Goals Goal [...] on filedocumented in this encounter Care Teams Cradle Slide Maker Relationship Specialty Start Date End Date Elyse Paredes MD [address] [place] [address] PCP - General Family Practice 03/19/17 documented as of this encounter
--- NOTE | 2024-02-21 14:00 | CRLHL7_ITS ---
For Patients: As a result of the Century Cures Act, medical imaging exams and procedure reports are released immediately into your electronic medical record. You may view this report before your referring provider. If you have questions, please contact your health care provider. INDICATION: Swelling/lump right clavicle area. TECHNIQUE: CT images were acquired through the neck during infusion of 125 cc Isovue-370. Multiplanar reconstructions. A metallic marker placed over the right anterior lower neck to correspond to the area of the patient`s concern. FINDINGS: Just inferior to a metallic marker is the right sternoclavicular joint. There are osteoarthritic changes of the medial clavicle heads. The changes are bilateral but there is level more soft tissue prominence surrounding the right sternoclavicular joint consistent with capsular thickening and the associated clavicular insertion of the sternocleidomastoid muscle. No fracture or bony destructive lesions seen no other soft tissue mass or cyst. No pathologic lymph node enlargement within the lower neck. Swallowing motion artifact is present on some of the images. There are scattered normal size (subcentimeter) lymph nodes in the jugular and spinal accessory lymph node chains are considered normal findings. Thyroid gland unremarkable. Larynx hypopharynx oropharynx and tongue base unremarkable. Major salivary glands unremarkable. Nasopharynx negative. Paranasal sinuses are clear as visualized. There is a convex left curvature of the posterior bony nasal septum. Advanced osteoarthritic changes of the cervical spine. Degenerative anterolisthesis at C3-4. Marked disc space narrowing with posterior marginal osteophytes at C3-4, C4-5, C5-6 and C6-7. Impression : 1. Osteoarthritic changes involving the right greater than left sternoclavicular joint are noted just below the metallic marker. No fracture or bony destructive process. 2. No pathologic lymph node enlargement or worrisome dominant mass within the neck soft tissues. 3. Advanced multilevel cervical spondylosis. Please note that all CT scans at this facility use dose modulation, iterative reconstruction, and/or weight-based dosing when appropriate to reduce radiation dose to as low as reasonably achievable. Dictated by Buddy Ornelas MD @ 02/22/2024 1:43:26 PM (Electronically Signed)
[2024-02-21 14:16] LABS: Creatinine* 1.3 mg/dL (0.5-1.5); Estimated Glomerular Filt Rate 44 ml/min
== END 2024-02-21 13:36 | disposition home or self-care (01) ==
LOC: CT 13:38
PROVIDERS: PCP Internal Medicine; Visit Provider Internal Medicine
DX: R22.1 Localized swelling, mass and lump, neck (principal); M19.09 Primary osteoarthritis, other specified site; M47.892 Other spondylosis, cervical region
CPT/HCPCS: 36415; 70491; 82565; Q9967

== ENCOUNTER 2024-08-01 13:14 | Outpatient (CLI) | payer MEDICARE, SELFPAY | END 2024-08-01 13:15 | disposition home or self-care (01) | PROVIDERS: PCP Internal Medicine; Visit Provider Internal Medicine | DX: E11.9 Type 2 diabetes mellitus without complications (principal); Z79.4 Long term (current) use of insulin | CPT/HCPCS: 80053; 80061 ==

== ENCOUNTER 2024-09-07 07:09 | Day surgery (SDC) | payer MEDICARE, SELFPAY ==
[2024-09-07] VITALS (11 sets, daily range): BP systolic 112–190; BP diastolic 58–88; PULSE 79–100; RESP 18–20; TEMP 36.6; O2SAT 93–97; BMI 46.0
--- OUTSIDE RECORDS SUMMARY | 2024-09-07 07:12 | XMS_ITS | Clinical Summary ---
Author Organization [facility] Address [address] [place] [address] Care Team Providers Care Picture Hanger Name Role Phone Raghu Bae MD Primary Care Provider Dagmar Kang MD Unavailable Allergies Active Allergy Reactions Criticality Noted Date Comments Azithromycin 05/05/2022 Erythromycin Rash Low 07/31/2013 Erythromycin Rash Low 06/20/2019 Lisinopril Cough 04/16/2017 Metformin Nausea and Vomiting 06/07/2017 Rosuvastatin 04/22/2022 Severe muscle and bone pain Statins Muscle Pain (Myalgia) High 09/01/2022 Rivaroxaban Itching High 07/29/2023 Itching to forearm (Intense) Medications BD INSULIN PEN NEEDLE UF MINI 31 gauge x 3/16 Ndle [BD INSULIN PEN NEEDLE UF MINI 31 GAUGE X 3/16 NDLE] USE 4-5 PER DAY UTD 0 07/25/20 17 Active insulin lispro (HUMALOG) 100 unit/mL injection [INSULIN LISPRO (HUMALOG) 100 UNIT/ML INJECTION] Inject 6-10 Units under the skin 3 (three) times a day before meals. 09/17/19 18 Active amoxicillin (AMOXIL) 500 MG tablet [AMOXICILLIN (AMOXIL) 500 MG TABLET] Take 2,000 mg by mouth as needed (prior to dental work). 08/08/19 19 Active famotidine (FOR PEPCID) 10 MG tablet Take 10 mg by mouth 2 times daily as needed (hearburn) 08/08/19 19 Active semaglutide (OZEMPIC) 0.25 mg or 0.5 mg(2 mg/1.5 mL) PnIj [SEMAGLUTIDE (OZEMPIC) 0.25 MG OR 0.5 MG(2 MG/1.5 ML) PNIJ] as directed 10/06/19 Active venlafaxine (EFFEXOR-XR) 37.5 MG 24 hr capsule Take 37.5 mg by mouth daily 10/17/19 21 Active allopurinoL (ZYLOPRIM) 100 MG tablet Take 100 mg by mouth daily 12/27/19 21 Active acetaminophen (TYLENOL) 650 MG CR tablet [...] of 30 units twice daily. 15 mL 09/07/19 23 Active metoprolol succinate ER (TOPROL XL) 50 MG 24 hr tabletIndications :S/P TAVR (transcatheter aortic valve replacement) Take 1 tablet (50 mg) by mouth daily 30 tablet 09/08/19 23 Active XARELTO ANTICOAGULANT 20 MG TABS tablet Take 20 mg by mouth daily (with dinner) 07/25/20 23 Active exemestane (AROMASIN) 25 MG tablet 08/25/19 24 Active evolocumab (REPATHA SURECLICK) 140 MG/ML prefilled autoinjectorIndic ations:Coronary artery disease involving tolowa dee-ni' coronary artery of tolowa dee-ni' heart without angina pectoris,Mixed hyperlipidemia,St atin intolerance ADMINISTER 1 ML(140 MG) UNDER THE SKIN EVERY 14 DAYS 6 mL 07/10/20 24 Active Active Problems Problem Noted Date Diagnosed Date Deep vein thrombosis (DVT) of proximal lower ext remity 10/28/2022 Atrial fibrillation with rapid ventricular respo nse 09/07/2022 Pneumonia due to infectious organism 09/07/2022 Hematoma of neck, sequela 09/04/2022 Presence of Watchman left atrial appendage closu re device 09/03/2022 Overview (09/03/2022): 09/03/22 - 27 mm Watchman FLX device Chronic kidney disease, stage 3 12/26/2020 Morbid obesity with BMI of 50.0-59.9, adult 12/2 03/2017 Persistent atrial fibrillation 07/23/2017 Overview (01/31/2021): Postop TAVR Paroxysmal and then Persistent. Failed DCCV without antiarrhythmic. Convertedwith loading of amio [id number] score of 5 and on warfarin S/P TAVR (transcatheter aortic valve replacement ) 07/06/2017 Hyperglycemia 07/06/2017 Calculus of kidney 06/07/2017 Urinary tract stones 06/07/2017 DEDE on CPAP 05/27/2017 Type 2 diabetes mellitus wit hout complication, with long-term current use of insulin 05/27/2017 Essential hypertension 05/27/2017 Dyslipidemia, goal LDL below 70 08/14/2015 CASTRO (dyspnea on exertion) Coronary artery disease invo lving tolowa dee-ni' coronary artery of tolowa dee-ni' heart, angina presence unspecified Overview (05/02/2021): Replacing diagnoses that were inactivated after the 05/02/2021 regulatory import. Chronic diastolic congestive heart failure Encounters Date Type Department Care Team Description 07/09/2024 Refill [facility] [address] [facility] [address] [place] [address] Dagmar Kang MD Medication Refill from Last 3 Months Immunizations Name Administration [...] School Help Needed Not on file 04/24 Comments Unknown Sex and Gender Information Value Date Recorded Sex Assigned at Not on file Legal Sex Female 1:42 PM CDT Gender Identity Not on file Sexual Orientation Not on file Last Filed Vital Signs Vital Sign Reading Time Taken Comments Blood Pressure 127/66 12/21/2023 3:00 PM CDT Pulse 70 12/21/2023 3:00 PM CDT Temperature 36.6 C (97.8 F) 12/09/2022 9:54 AM CDT Respiratory Rate 18 12/09/2022 9:54 AM CDT Oxygen Saturation 98% 11/05/2023 3:03 PM CDT Inhaled Oxygen Concentration - - Weight 115.7 kg (255 lb) 11/05/2023 3:03 PM CDT Height 157.5 cm (5' 2) 09/03/2022 2:09 PM OWNER/OPERATOR Body Mass Index 46.64 09/03/2022 2:09 PM OWNER/OPERATOR Plan of Treatment Upcoming Encounters Date Type Department Care Team (Late st Contact Info) Description 09/22/2024 2:10 PM OWNER/OPERATOR Office Visit [facility] [place] [address] [facility] [address] [place] [address] Chidi Barcenas MD [address] [facility] [address] [place] [address]-C [facility] [address] [facility] [place] [address] Health Maintenance Due Date Last Done Comments ADVANCE CARE PLANNING 1952 ANNUAL REVIEW OF HM ORDERS 1952 CT COLONOGRAPHY 1952 DIABETIC FOOT EXAM 1952 EYE EXAM 1952 FIT 1952 FLEX SIG 1952 HF ACTION PLAN 1952 URIC ACID 1952 sDNA (Cologuard) 1952 URINALYSIS 1953 COLONOSCOPY 1962 COLORECTAL CANCER SCREENING 1962 HEPATITIS C SCREENING 1970 RSV VACCINE (1 - Risk 60-74 years 1-dose series) 2012 FALL RISK ASSESSMENT 2017 MEDICARE ANNUAL WELLNESS VISIT 2017 BMP 03/08/2023 09/08/2022, 02/0 12/2022, 09/06/2022, Additional history exists MICROALBUMIN 07/09/2023 07/09/2022 CBC 09/07/2023 09/07/2022, 02/0 11/2022, 09/05/2022, Additional history exists HEMOGLOBIN 09/07/2023 09/07/2022, 02/0 11/2022, 09/05/2022, Additional history exists ALT 01/21/2024 01/20/2023, 01/01, 04/28/2021, Additional history exists A1C 05/23/2024 11/22/2023, 03/0 12/2023, 07/21/2023, Additional history exists PHQ-2 (once per calendar year) 2024 COVID-19 Vaccine ( season) 2024 04/11/2024, 01/23/2024, 05/03/2023, Additional history exists LIPID 11/21/2024 11/22/2023, 03/02, 07/02/2022, Additional history exists MAMMO SCREENING 09/28/2025 09/28/2023, 09/03, 08/13/2022, Additional history exists DTAP/TDAP/TD IMMUNIZATION (3 - Td or Tdap) 07/09/2032 07/09/2022, 08/08/2012, 11/01/2003, Additional history exists DEXA 01/26/2034 01/26/2019 TSH W/FREE T4 REFLEX Completed 03/23/2018, 03/23/2018, 10/27/2017 ZOSTER IMMUNIZATION Completed 06/08/2019, 01/26/2019, 07/24/2015 INFLUENZA VACCINE Completed 04/11/2024, , 04/27/2022, Additional history exists Pneumococcal Vaccine: 50+ Years Completed 04/11/2024, 04/13/2019, 03/23/2018, Additional history exists HPV IMMUNIZATION Aged Out No longer e ligible based on patient's age to complete this topic MENINGITIS IMMUNIZATION Aged Out No l onger eligible based on patient's age to complete this topic Medical Devices Implanted Type Area Medicine Worker Device Identifier Shelf Expiration Date Model / Serial / Lot Occluder Cv Watchman Flx Od27 Mm [id number] - [id number] Implanted:Qty : 1 on 09/03/2022 by Ankush Martinez MD at [facility] Occlusion Device N/A: Heart [employer] 03/03/2025 [id number] / / [id number] Stent Synergy Mr [id number] Implanted:Qty : 1 on 05/12/2017 Stent Drug Eluting ([place]) N/A: Heart [employer] 03/25/2018 [id number] / / [id number] Valve [id number] Implanted:Qty : 1 on 07/06/2017 Valve N/A: Heart [employer] 02/25/2019 [id number] / / [id number] Procedures Procedure Name Priority Date/Time Associated Diagnosis Comments HEMOGLOBIN A1C (EXTERNAL RESULT) Routine 10/05/2023 2:05 PM OWNER/OPERATOR LIPID REFLEX TO DIRECT LDL PANEL Routine 03/19/2023 1:10 PM CDT Coronary artery disease involving tolowa dee-ni' coronary artery of tolowa dee-ni' heart, unspecified whether angina present Hypercholesterolemi a ALT (EXTERNAL RESULT) Routine 01/20/2023 1:22 PM CDT BASIC METABOLIC PANEL Routine 09/08/2022 5:51 AM OWNER/OPERATOR CBC WITH PLATELETS Routine 09/07/2022 5: 18 AM OWNER/OPERATOR ABSTRACT MICROALBUMIN Routine 07/09/2022 2:32 PM OWNER/OPERATOR TSH Routine 03/23/2018 9:32 AM CDT from Last 3 Months or Most Recently Relevant to Health Maintenance Results * (ABNORMAL) Hemoglobin A1c (External Result) (10/05/2023 2:05 PM OWNER/OPERATOR) Hemoglobin A1C (External) 8.6(A) 0 - 5.6 % [facility] Blood 10/05/2023 2:05 PM OWNER/OPERATOR Narrative [facility] - 10/05/2023 2:05 PM OWNER/OPERATOR [facility]- External Lab Results us Provider Outside LAB - HIM EXTERNAL RESULT Final Result [facility] [address] [place] [address], [facility] [phone] * Lipid panel reflex to direct LDL Fasting (03/19/2023 1:10 PM CDT) Cholesterol 121 <=199 mg/dL 03/19/2023 4:53 PM CDT [facility] Triglycerides 144 <=149 mg/dL 03/19/2023 4:53 PM CDT [facility] Direct Measure HDL 52 >=50 mg/dL 2022 4:53 PM CDT [facility] Comment: HDL Cholesterol Reference Range: 0-2 years: No reference ranges established for patients under 2 years old at [facility] for lipid analytes. 2-8 years: Greater than 45 mg/dL 18 years and older: Female: Greater than or equal to 50 mg/dL Male: Greater than or equal to 40 mg/dL LDL Cholesterol Calculated 40 <=129 mg/dL 03/19/2023 4:53 PM CDT [facility] Patient Fasting > 8hrs? Yes 03/19/2023 4:53 PM CDT [facility] Blood STRUCTURE OF RIGHT UPPER LIMB / Unknown Venipuncture / Unknown 03/19/2023 1:10 PM CDT 03/19/2023 4:30 PM CDT us Dagmar Kang MD LAB - BLOOD ORDERABLES Final Res ult [facility] [address] [facility] [place] [address], [facility] [phone] * ALT (External Result) (01/20/2023 1:22 PM CDT) ALT (External) 22 4 - 35 U/L [facility] Blood 01/20/2023 1:22 PM CDT Narrative [facility] - 01/20/2023 1:22 PM CDT [facility]-External Lab Results us Provider Outside LAB - HIM EXTERNAL RESULT Edite d Result - Final [facility] [address] [phone] * (ABNORMAL) Basic metabolic panel (09/08/2022 5:51 AM OWNER/OPERATOR) Sodium 139 136 - 145 mmol/L 09/08/2022 6:50 AM [facility] Potassium 3.6 3.4 - 5.3 mmol/L 09/08/2022 6:50 AM [facility] Chloride 108(H) 98 - 107 mmol/L 09/08/2022 6:50 AM [facility] Carbon Dioxide (CO2) 25 22 - 29 mmol/L 09/08/2022 6:50 AM [facility] Anion Gap 6(L) 7 - 15 mmol/L 09/08/2022 6:50 AM [facility] Urea Nitrogen 21.4 8.0 - 23.0 mg/dL 09/08/2022 6:50 AM [facility] Creatinine 1.31(H) 0.51 - 0.95 mg/dL 09/08/2022 6:50 AM [facility] Calcium 8.7(L) 8.8 - 10.2 mg/dL 09/08/2022 6:50 AM [facility] Glucose 135(H) 70 - 99 mg/dL 09/08/2022 6:50 AM [facility] GFR Estimate 44(L) >60 mL/min/1.7 3m2 09/08/2022 6:50 AM [facility] Comment:eGFR calculated usin 2020 CKD-EPI equation. Blood BLOOD SPECIMEN / Unknown Venipuncture / Unknown 09/08/2022 5:51 AM OWNER/OPERATOR 09/08/2022 6:12 AM OWNER/OPERATOR us Jeimy Gonzalez APRN AMMUNITION COMPONENTS INSPECTOR LAB - BLOOD ORDERABLES F inal Result [facility] [address] [place] [address], [facility] [phone] * (ABNORMAL) CBC with platelets (09/07/2022 5:18 AM OWNER/OPERATOR) [facility] WBC Count 8.2 4.0 - 11.0 10e3/uL 09/07/2022 5:30 AM [facility] RBC Count 2.99(L) 3.80 - 5.20 10e6/uL 09/07/2022 5:30 AM [facility] Hemoglobin 9.6(L) 11.7 - 15.7 g/dL 09/07/2022 5:30 AM [facility] Hematocrit 28.7(L) 35.0 - 47.0 % 09/07/2022 5:30 AM [facility] MCV 96 78 - 100 fL 09/07/2022 5:30 AM [facility] MCH 32.1 26.5 - 33.0 pg 09/07/2022 5:30 AM [facility] MCHC 33.4 31.5 - 36.5 g/dL 09/07/2022 5:30 AM [facility] RDW 12.9 10.0 - 15.0 % 09/07/2022 5:30 AM [facility] Platelet Count 130(L) 150 - 450 10e3/uL 09/07/2022 5:30 AM [facility] Blood VENOUS LINE / Unknown VAD(CVC, PICC) / Unknown 09/07/2022 5:18 AM OWNER/OPERATOR 09/07/2022 5:28 AM OWNER/OPERATOR us Jeimy Gonzalez APRN AMMUNITION COMPONENTS INSPECTOR LAB - BLOOD ORDERABLES F inal Result [facility] [address] [place] [address], [facility] [phone] * Abstract Microalbumin (07/09/2022 2:32 PM OWNER/OPERATOR) Albumin (Urine) MG/SPEC 4 mg/dL [facility] Creatinine (Urine) 128.0 mg/dL [facility] Albumin/Creatin ine Ratio 30 0 - 30 mg/g [facility] 07/09/2022 2:32 PM OWNER/OPERATOR Narrative [facility] - 07/09/2022 2:32 PM OWNER/OPERATOR [facility] Lab Result us Provider Outside LAB - HIM EXTERNAL RESULT Edite d Result - Final Performing Organization Address City/[facility]/ZIP Co de Phone Number [facility] [address] [place] [address], [facility] [phone] * (ABNORMAL) TSH (03/23/2018 9:32 AM CDT) Pathologist [facility] TSH 5.91(H) 0.30 - 5.00 uIU/mL 03/23/2018 5:17 PM CDT [facility] Blood specimen (specimen) 03/23/2018 9:32 AM CDT 03/23/2018 2:47 PM CDT us Elyse Paredes MD LAB - BLOOD ORDERABLES Final Result Performing Organization Address [facility]/ZIP Co de Phone Number [facility] [address] [address], [facility] [address] [address] from Last 3 Months or Most Recently Relevant to Health Maintenance Insurance [facility] MEDICARE ADVANTAGE [employer] MEDICARE ADVANTAGE Advance Directives For more information, please contact: [phone] * Full Code (Latest Code Status on File) Date Activated Date Inactivated Comments 09/03/2022 9:06 AM 09/08/2022 8:06 PM All basic and advanced life-sustaining interventions are performed as appropriate Question Answer Comments Code status determined by: Discussion with patie nt/ legal decision maker Care Teams Picture Hanger Relationship Specialty Start Date End Date Raghu Bae MD [facility] [address] [place] [address] PCP - General Emergency Medicine 04/22/22 Dagmar Kang MD [address] [place] [address], [address] [place] [address] Assigned Heart and Vascular Provider 11/23/23
--- OUTSIDE RECORDS SUMMARY | 2024-09-07 07:12 | XMS_ITS | Encounter Summary ---
Author Organization [facility] Address [address] [place] [address] Care Team Providers Care Gift Officer Name Role Phone Raghu Bae MD Primary Care Provider Dagmar Kang MD Unavailable Encounter Details Date Type Department Care Team (Late st Contact Info) Description 12/03/2023 MyC Medical Advice [place] [id number] [facility] [address] [place] [address] Megan Dunlap MA Social History [...] st Contact Info) Description 09/22/2024 2:10 PM DIRECT MARKETING ANALYST Office Visit [facility] [place] [address] [facility] [address] [place] [phone] Chidi Barcenas MD [address] [facility] [address] [place], [place] [id number] Pinky Corral PA-C [facility] [address] [facility] [place] [address] documented as of this encounter Visit Diagnoses Not on filedocumented in this encounter Care Teams Gift Officer Relationship Specialty Start Date End Date Raghu Bae MD [facility] [address] [place] [address] PCP - General Emergency Medicine 04/22/22 Dagmar Kang MD [address] [facility] [place] [address] Assigned Heart and Vascular Provider 11/23/23 documented as of this encounter
--- OUTSIDE RECORDS SUMMARY | 2024-09-07 07:12 | XMS_ITS | Encounter Summary ---
Author Organization [facility] Address [address], [place] [address] Care Team Providers Care Wing Coverer Name Role Phone Elyse Paredes MD Primary Care Provider [phone] Encounter Details Date Type Department Care Team (Late st Contact Info) Description 08/03/2019 Refill Order [facility] [address] [facility] [address] [place] [address]. [place], [place] [id number] Gabrielle Morris, MIX CRUSHER OPERATOR, [facility] [address] [place] [address] Social History Tobacco Use Types Packs/Day Years [...] on file documented as of this encounter Goals Goal Patient Goal Type Associated Problems Recent Progress Patient-Stated? Author Being active Diabetes Education Diabetes Education No Tanner Carranza, ARMAND, CDE Note: Being Active: Continue with Cardiac [...] diabetes Diabetes Education Diabetes Education No Tanner Carranza RD, CDE Note: Monitoring My Diabetes: Continue to check blood sugars before each meal and bedtime. documented as of this encounter Visit Diagnoses Diagnosis Encounter for long-term (current) use of medications- Primary Encounter for long-term (current) use of other medications documented in this encounter Care Teams Wing Coverer Relationship Specialty Start Date End Date Elyse Paredes MD [address] [place] [address] PCP - General Family Practice 03/19/17 documented as of this encounter
--- OUTSIDE RECORDS SUMMARY | 2024-09-07 07:12 | XMS_ITS | Continuity of Care Document ---
Author Organization [facility] Address [address] [place] [address] Phone Care Team Providers Care Engine Repairer Service Name Role Phone Falguni Mccain MD Unavailable [...] Active Procedures Procedure Date Colonoscopy Flex; Dx (apr Pro) Colorectal Ca Screen Hi Risk I [...] Encounter [facility], [address] [address], [place], [id number], [place] tel:[phone] [facility] No Information 0 Kalyn Montes De Oca . [address] [facility] [place], [address], [place], [place], [id number] , [place]. tel: [phone] [facility], [address] [address], [place], [address], [place] tel:[phone] [facility] No Information 0 Kalyn Montes De Oca . [address] [facility] [place], [address], [place], [id number] , [place]. tel: [phone] Referring Provider: Elyse Paredes MD, [address] [place], [address]. tel:[phone] [facility], [address] [address], [place], [address], [place] tel:[phone] [facility] History of colon polyps 9 Bruce Ngo. [address] [facility] [place], [address], [place], [place], [id number] , [place]. tel: [phone] [facility], [address] [address], [place], [address], [place] tel:[phone] [facility] No Information 9 Bruce Ngo. [address] [facility] [place], [address], [place], [address] , [place]. tel: [phone] Referring Provider: Elyse Paredes MD, [address] [place], [address]. tel:[phone] [facility], [address] [address], [place], [address], [place] tel:[phone] [facility] No Information 9 Miko Velasquez. [address] [facility] [place], [address], [place], [id number] , [place]. tel: [phone] [facility], [address] [address], [place], [address], [place] tel:[phone] [facility] Polyp-intes/rect/st om-unc BehColon Cancer ScreeningPseudopoly posis Of ColonHemorrhoids NosHemorrhoids NosDiverticulosis Of Colon Apr-0 2-201 4 Dagmar Zamora. [address] [facility], [facility] [address], [facility] [place], [id number] , [place]. tel: [phone] Referring Provider: Elyse Paredes MD, [address] [place], [address]. tel:[phone] [facility], [address] [address], [facility] [place] [id number], [place] tel:[phone] [facility] Polyp-intes/rect/st om-unc BehDigestive Neoplasm NosPersonal History Colon PolypsDiverticulosi s Of Colon May- 7200 8 Giancarlo Byrnes. [address] [facility], [facility] [address], [facility] [place], [address] , [place]. tel:[phone] Referring Provider: Elyse Paredes MD, [address] [place], [address]. tel:[phone] [facility], [address] [address], [facility] [place] [address], [place] tel:[phone] [facility] No Information Jul-3 0200 4 Giancarlo Byrnes. [address] [facility], [facility] [address], [facility] [place], [address] , [place]. tel:[phone] Referring Provider: Elyse Paredes MD, [address] [place], [address]. tel:[phone] Family History Family Member Type Diagnosis Age [...] 2 Lf of diphtheria toxoid) administered Note: MDIC bi-direct ional interface ; Source: Other Registry tetanus and diphtheria toxoi ds, adsorbed, preservative free, for adult use (5 Lf of tetanus toxoid and 2 Lf of diphtheria toxoid) administered Note: MDIC bi-direct ional interface ; Source: Other Registry Payers Payer name Insurance type Covered libertarian ID Authoriza tion(s) No Information Social History [...]
--- OUTSIDE RECORDS SUMMARY | 2024-09-07 07:12 | XMS_ITS | Encounter Summary ---
Author Organization [place] Address [facility] [place] [address] Care Team Providers Care Global President Name Role Phone Dagmar Kang MD Unavailable Elyse Paredes MD Primary Care Provider [phone] Dagmar Kang MD Unavailable Raghu Bae MD Primary Care Provider Nicole Salazar APRN SR. MANAGER Unavailable Candy vailable Dagmar Kang MD Unavailable Ashley Anderosn PA-C Unavailable [phone] Dagmar Kang MD Unavailable Encounter Details Date Type Department Care Team (Late st Contact Info) Description 05/28/2017 Records - [facility] CONVERSION Scan, Non-Provider Social History Tobacco Use Types Packs/Day Years Used Date Smoking Tobacco: Never Assessed Comments Unknown Sex and Gender Information Value Date Recorded Sex Assigned at Not on file Legal Sex Female 1:42 PM CDT Gender Identity Not on file Sexual Orientation Not on file documented as of this encounter Plan of Treatment Upcoming Encounters Date Type Department Care Team (Late st Contact Info) Description 09/22/2024 2:10 PM LICENSED LIFE AND HEALTH AGENT Office Visit [facility] [address] [facility] [address] [place] [phone] Chidi Barcenas MD [address] [facility] [address] [place], [place] [id number] Pinky Corral PA-C [facility] [address] [facility] [place] [address] documented as of this encounter Visit Diagnoses Not on filedocumented in this encounter Care Teams Global President Relationship Specialty Start Date End Date Long, Elyse Armas MD [address] [place] [address] PCP - General Family Practice 12/22/13 04/21/22 Raghu Bae MD [facility] [address] [place] [address] PCP - General Emergency Medicine 04/22/22 Dagmar Kang MD [address] [facility], [address] [place] [address] Assigned Heart and Vascular Provider 02/14/21 02/27/22 Dagmar Kang MD [address] [facility], [address] [place] [address] Assigned Heart and Vascular Provider 03/21/22 04/24/22 Nicole Salazar APRN [facility] Assigned Heart and Vascular Provider 04/25/22 08/28/22 Dagmar Kang MD [address] [facility], [address] [place] [address] Assigned Heart and Vascular Provider 08/29/22 09/23/23 Ashley Anderson PA-C [address] [place] [address] [address] [place] [address] Assigned Heart and Vascular Provider 09/24/23 11/22/23 Dagmar Kang MD [address] [facility], [address] [place] [address] Assigned Heart and Vascular Provider 11/23/23 documented as of this encounter
--- OUTSIDE RECORDS SUMMARY | 2024-09-07 07:12 | XMS_ITS | Encounter Summary ---
Author Organization [place] Address [address] [place] [address] Care Team Providers Care Yolk Spray Drier Name Role Phone Raghu Bae MD Primary Care Provider Nicole Salazar APRN REPAIRER FINISHED METAL Unavailable Candy vailable Dagmar Kang MD Unavailable Ashley Anderson PA-C Unavailable [phone] Dagmar Kang MD Unavailable Encounter Details Date Type Department Care Team (Late st Contact Info) Description 06/24/2022 MyC Medical Advice [facility] [address] [facility] [address] [place] [phone] Natalia Vee, RN Social History Tobacco Use Types Packs/Day Years Used Date Smoking Tobacco: Never Smokeless Tobacco: Never Alcohol Use Standard Drinks/Week Comments No 0 (1 standard drink = 0.6 oz pur e alcohol) Comments Unknown Sex and Gender Information Value [...] Department Care Team (Late Contact Info) Description 09/22/2024 2:10 PM LOCAL SUPERINTENDENT Office Visit [facility] [address] [facility] [address] [place] [address] Chidi Barcenas MD [address] [facility] [address] [place], [place] [id number] Pinky Corral PA-C [facility] [address] [facility], [address] [place], [place] [id number] documented as of this encounter Visit Diagnoses Not on filedocumented in this encounter Care Teams Yolk Spray Drier Relationship Specialty Start Date End Date Raghu Bae MD [facility] [address] [place] [address] PCP - General Emergency Medicine 04/22/22 Nicole Salazar APRN [facility] Assigned Heart and Vascular Provider 04/25/22 08/28/22 Dagmar Kang MD [address] [facility], [address] [place] [address] Assigned Heart and Vascular Provider 08/29/22 09/23/23 Ashley Anderson PA-C [address] [place] [address] [address] [place], [place] [phone] Assigned Heart and Vascular Provider 09/24/23 11/22/23 Dagmar Kang MD [address] [facility], [address] [place], [place] [address] Assigned Heart and Vascular Provider 11/23/23 documented as of this encounter
--- OUTSIDE RECORDS SUMMARY | 2024-09-07 07:12 | XMS_ITS | Encounter Summary ---
Author Organization [facility] Address [address] [place] [address] Care Team Providers Care Marine Diesel Mechanic Name Role Phone Raghu Bae MD Primary Care Provider Dagmar Kang MD Unavailable Ashley Anderson PA-C Unavailable [phone] Dagmar Kang MD Unavailable Encounter Details Date Type Department Care Team (Late Contact Info) Description 09/23/2022 MyC Medical Advice [address] [place] [address] Krysten Vallejo Social History Tobacco [...] Coronavirus/COVID-19? No / Unsure 09/03/2022 5:42 AM CLINICAL RESEARCH DIRECTOR documented as of this encounter Plan of Treatment Upcoming Encounters Date Type Department Care Team (Late st Contact Info) Description 09/22/2024 2:10 PM CLINICAL RESEARCH DIRECTOR Office Visit [facility] [address] [facility] [address] [place] [address] Chidi Barcenas MD [address] [facility] [address] [place] [address] Pinky Corral PA-C [facility] [address] [facility] [place] [address] documented as of this encounter Visit Diagnoses Not on filedocumented in this encounter Care Teams Marine Diesel Mechanic Relationship Specialty Start Date End Date Raghu Bae MD [facility] [address] [place] [address] PCP - General Emergency Medicine 04/22/22 Dagmar Kang MD [address] [facility], [address] [place] [address] Assigned Heart and Vascular Provider 08/29/22 09/23/23 Ashley Anderson PA-C [address] [place] [address] [address] [place] [address] Assigned Heart and Vascular Provider 09/24/23 11/22/23 Dagmar Kang MD [address] [facility], [address] [place] [address] Assigned Heart and Vascular Provider 11/23/23 documented as of this encounter
--- OUTSIDE RECORDS SUMMARY | 2024-09-07 07:12 | XMS_ITS | Encounter Summary ---
Author Organization [place] Address [address] [place] [address] Care Team Providers Care Rubber Goods Cutter Finisher Name Role Phone Dagmar Kang MD Unavailable Elyse Paredes MD Primary Care Provider [phone] Dagmar Kang MD Unavailable Raghu Bae MD Primary Care Provider Nicole Salazar APRN FABRICATOR FOAM RUBBER Unavailable Candy vailable Dagmar Kang MD Unavailable Ashley Anderson PA-C Unavailable [phone] Dagmar Kang MD Unavailable Encounter Details Date Type Department Care Team (Late st Contact Info) Description 04/16/2017 Records - [facility] [address] [address] Tomas Pino RN Social History Tobacco Use [...] st Contact Info) Description 09/22/2024 2:10 PM GAS MAIN AND LINE FITTER Office [facility] [address] [facility] [address] [place] [address] Chidi Barcenas MD [address] [facility] [address] [place] [address] Pinky Corral PA-C [facility] [address] [facility], [address] [place] [address] documented as of this encounter Visit Diagnoses Not on filedocumented in this encounter Care Teams Rubber Goods Cutter Finisher Relationship Specialty Start Date End Date Elyse Paredes MD [address] [place] [address] PCP - General Family Practice 12/22/13 04/21/22 Raghu Bae MD [facility] [address] [place] [address] PCP - General Emergency Medicine 04/22/22 Dagmar Kang MD [address] [facility], [address] [place] [address] Assigned Heart and Vascular Provider 02/14/21 02/27/22 Dagmar Kang MD [address] [facility], [address] [place] [address] Assigned Heart and Vascular Provider 03/21/22 04/24/22 Nicole Salazar APRN [facility] Assigned Heart and Vascular Provider 04/25/22 08/28/22 Dagamr Kang MD [address] [facility], [address] [place] [address] Assigned Heart and Vascular Provider 08/29/22 09/23/23 Ashley Anderson PA-C [address] [facility] [address] [place] [address] Assigned Heart and Vascular Provider 09/24/23 11/22/23 Dagmar Kang MD [address] [facility], [address] [place] [address] Assigned Heart and Vascular Provider 11/23/23 documented as of this encounter
--- OUTSIDE RECORDS SUMMARY | 2024-09-07 07:12 | XMS_ITS | Encounter Summary ---
Author Organization [place] Address [facility] [place] [address] Care Team Providers Care Hotel Breakfast Attendant Name Role Phone Dagmar Kang MD Unavailable Elyse Paredes MD Primary Care Provider [phone] Dagmar Kang MD Unavailable Raghu Bae MD Primary Care Provider Nicole Salazar APRN SUCCESS COACH Unavailable Candy vailable Dagmar Kang MD Unavailable Ashley Anderson PA-C Unavailable [phone] Dagmar Kang MD Unavailable Encounter Details Date [...] st Contact Info) Description 09/22/2024 2:10 PM ADVERTISING DISPATCH CLERKS SUPERVISOR Office Visit [facility] [address] [facility] [address] [place] [address] Chidi Barcenas MD [address] [facility] [address] [place], [place] [phone] Pinky Corral PA-C [facility] [address] [facility], [address] [place] [address] documented as of this encounter Visit Diagnoses Not on filedocumented in this encounter Care Teams Hotel Breakfast Attendant Relationship Specialty Start Date End Date Long, Elyse Armas MD [address] [place] [address] PCP - General Family Practice 12/22/13 04/21/22 Raghu Bae MD [facility] [address] [place] [address] PCP - General Emergency Medicine 04/22/22 Dagmar Kang MD [address] [facility], [address] [place] [address] Assigned Heart and Vascular Provider 02/14/21 02/27/22 Dagmar Kang MD [address] [facility], [address] [place] [address] Assigned Heart and Vascular Provider 03/21/22 04/24/22 Nicole Salazar APRN [facility] Assigned Heart and Vascular Provider 04/25/22 08/28/22 Dagmar Kang MD [address] [facility], [address] [place] [address] Assigned Heart and Vascular Provider 08/29/22 09/23/23 Ashley Anderson PA-C [address] [place] [address] [address] [place] [address] Assigned Heart and Vascular Provider 09/24/23 11/22/23 Dagmar Kang MD [address] [facility], [address] [place] [address] Assigned Heart and Vascular Provider 11/23/23 documented as of this encounter
--- OUTSIDE RECORDS SUMMARY | 2024-09-07 07:12 | XMS_ITS | Encounter Summary ---
Author Organization [place] Address [facility] [place] [address] Care Team Providers Care Advance Seal Delivery System Maintainer Name Role Phone Dagmar Kang MD Unavailable Elyse Paredes MD Primary Care Provider [phone] Dagmar Kang MD Unavailable Raghu Bae MD Primary Care Provider Nicole Salazar APRN LAY BROTHER Unavailable Candy vailable Dagmar Kang MD Unavailable Ashley Anderson PA-C Unavailable [phone] Dagmar Kang MD Unavailable Encounter Details Date [...] st Contact Info) Description 09/22/2024 2:10 PM INVENTORY ANALYST Office Visit [facility] [address] [facility] [address] [place] [phone] Chidi Barcenas MD [address] [facility] [address] [place], [place] [phone] Pinky Corral PA-C [facility] [address] [facility], [address] [place] [address] documented as of this encounter Visit Diagnoses Not on filedocumented in this encounter Care Teams Advance Seal Delivery System Maintainer Relationship Specialty Start Date End Date Long, Elyse Armas MD [address] [place] [address] PCP - General Family Practice 12/22/13 04/21/22 Raghu Bae MD [facility] [address] [place] [address] PCP - General Emergency Medicine 04/22/22 Dagmar Kang MD [address] [facility], [address] [place] [address] Assigned Heart and Vascular Provider 02/14/21 02/27/22 Dagmar Kang MD [address] [facility], [address] [place] [address] Assigned Heart and Vascular Provider 03/21/22 04/24/22 Nicole Salazar APRN [facility] Assigned Heart and Vascular Provider 04/25/22 08/28/22 Dagmar Kang MD [address] [facility], [address] [place] [address] Assigned Heart and Vascular Provider 08/29/22 09/23/23 Ahsley Anderson PA-C [address] [place] [address] [address] [place] [address] Assigned Heart and Vascular Provider 09/24/23 11/22/23 Dagmar Kang MD [address] [facility], [address] [place] [address] Assigned Heart and Vascular Provider 11/23/23 documented as of this encounter
--- OUTSIDE RECORDS SUMMARY | 2024-09-07 07:12 | XMS_ITS | Encounter Summary ---
Author Organization [facility] Address [address] [place] [address] Care Team Providers Care Archaeology Professor Name Role Phone Elyse Paredes MD Primary Care Provider [phone] Encounter Details Date Type Department Care Team (Late st Contact Info) Description 05/09/2019 Refill Order [facility] [address] [place] [address]. [place] [address] Juan Cho MD [address] [place] [id number] Social History Tobacco Use Types Packs/Day Years [...] medications documented in this encounter Care Teams Archaeology Professor Relationship Specialty Start Date End Date Elyse Paredes MD [address] [place] [address] PCP - General Family Practice 03/19/17 documented as of this encounter
--- OUTSIDE RECORDS SUMMARY | 2024-09-07 07:12 | XMS_ITS | Encounter Summary ---
Author Organization [facility] Address [address] [address] Care Team Providers Care Activity Assistant Name Role Phone Elyse Paredes MD Primary Care Provider [phone] Encounter Details Date Type Department Care Team (Late st Contact Info) Description 01/21/2017 Scanned History External to Transferred Record, Provider [facility] Social History Tobacco Use Types Packs/Day Years [...] on filedocumented in this encounter Care Teams Activity Assistant Relationship Specialty Start Date End Date Elyse Paredes MD [address] [place] [address] PCP - General Family Practice 03/19/17 documented as of this encounter
--- OUTSIDE RECORDS SUMMARY | 2024-09-07 07:12 | XMS_ITS | Clinical Summary ---
Author Organization [facility] Address [address] [place] [address] Care Team Providers Care Silica Filter Operator Name Role Phone Elyse Paredes MD Primary Care Provider [phone] Source Comments You are receiving this document as you are listed as the primary care provider,follow-up provider, or the patient has been referred to you for consultation.This is in compliance with the Medicare and[facility] EHR Incentive Program,which states Providers who transition their patient to another setting of careor provider of care or refers their patient to another provider of care shouldprovide summary care record for each transition of care or referral. [employer] Allergies Active Allergy Reactions Criticality Noted Date Comments Erythromycin Rash 04/04/2011 Lisinopril Other, see comments 06/17/2017 Dry cough Metformin Other, see comments, Nausea And Vomiting 06/17/2017 diarrhea Medications Medication Sig Dispensed Refills Start Date End Date Status famotidine (PEPCID) 10 MG tabletIndications: Uncontrolled diabetes mellitus type 2 without complications, unspecified intermodal customer service insulin use status Take 1 Tablet (10 mg) by mouth daily as needed. Active ACCU-CHEK GERALD PLUS test stripIndications:U ncontrolled type 2 diabetes mellitus without complication, with long-term current use of insulin Check fasting / before meals, and at bedtime, . Pharmacy dispense brand based on insurance. 350 Strip 6 04/27/2018 Active Continuous Blood Gluc Plastic Products Sales Representative (DEXCOM G6 TISSUE TECHNICIAN) DEVIIndications:Un controlled type 2 diabetes mellitus, with long-term current [...] injection Inject 48 Units subcutaneously daily. Active calcium carbonate (TUMS) 500 MG chewable tablet Chew and swallow 1 Tablet (500 mg) by mouth two times a day. Active cholecalciferol (VITAMIN D3) 25 MCG (1000 UT) tablet Take 1 Tablet (1,000 Units) by mouth daily. Active Continuous Blood Gluc Transmit (DEXCOM G6 TRANSMITTER) MISCIndications:Ob esity, unspecified classification, unspecified obesity type, unspecified whether serious comorbidity present (HRC) CHANGE EVERY 3 MONTHS 1 Each 2 05/30/2021 Active Continuous Blood Gluc Sensor (DEXCOM G6 SENSOR) MISCIndications:Ob esity, unspecified classification, unspecified obesity type, unspecified whether serious comorbidity present (HRC) CHANGE SENSOR EVERY 10 DAYS 3 Each 5 06/27/2021 Active OZEMPIC, 1 MG/DOSE, 4 MG/3ML injection INJECT 1 MG UNDER THE SKIN ONCE WEEKLY 12 mL 1 10/16/2021 Active SURE COMFORT PEN NEEDLES 31G X 5 MM USE FOUR TO FIVE TIMES DAILY 100 Each 4 11/27/2021 Active venlafaxine (EFFEXORXR) 37.5 MG 24 hour release capsule Take 1 Capsule (37.5 mg) by mouth daily. 11/03/2022 Active allopurinol (ZYLOPRIM) 100 MG tablet Take 1 Tablet (100 mg) by mouth daily. Active metoprolol succinate (TOPROL XL) 50 MG 24 hour release tablet Take 1 Tablet (50 mg) by mouth daily. 09/08/2022 Active Active Problems Problem Noted Date Diagnosed Date Hyperuricemia 02/19/2020 CKD (chronic kidney disease) stage 3, GFR 30-59 ml/min 02/19/2020 Microalbuminuria 02/19/2020 Malignant neoplasm of overla pping sites of left female breast 08/11/2018 Cancer Staging:Pathologic stage from 10/27/2018:Stage IA(pT1c, pN0(sn), cM0, G2, ER+, OR+, HER2-, Oncotype DX score: 10) - Signed by Deloris Trujillo MD on 10/27/2018 Overview (08/11/2018): Added automatically from request for surgery [id number] Coronary artery disease invo [place]ving [place] coronary artery of [place] heart without angina pectoris 08/09/2018 Diabetes Education [...] Vial 0 .25 (6-35 Mos) 05/08/2017,05/28/2016,05/09/2015 Influenza IIV3 (Trivalent) F luzone Highdose, 65+ Yrs (00909) 05/21/2017 Influenza aIIV3 65+ Years (Fluad) 05/01/2020,07/2019,04/20/2018 Influenza, Unspecified Formulation 05/21/2017 Moderna Monovalent 12+ [...] Sign Reading Time Taken Comments Blood Pressure 132/84 02/29/2024 1:14 PM CDT Pulse 89 02/29/2024 1:14 PM CDT Temperature 37.1 C (98.8 F) 02/29/2024 1:14 PM CDT Respiratory Rate 18 02/29/2024 1:14 PM CDT Oxygen Saturation 95% 01/14/2023 12:52 PM CDT Inhaled Oxygen Concentration - - Weight 115 kg (253 lb 9.6 oz) 02/29/2024 1:14 PM CDT Height 158.8 cm (5' 2.5) 01/29/2022 1:04 PM CDT Body Mass Index 45.64 01/29/2022 1:04 PM CDT Plan of Treatment Health Maintenance Due Date Last Done Comments Diabetes: Eye Exam 1950 Diabetes: Foot Exam 1950 Hep C Screening (Preventive Services) 1950 RSV (1 - Risk 60-74 years 1-dose series) 2012 Diabetes: Creatinine 02/26/2022 02/26/2021, 01/17/2021, 10/07/2020, Additional history exists Diabetes: Urine Microalbumin 02/26/2022 02/26/2021, 01/20/2021, 10/07/2020, Additional history exists Diabetes: HGBA1C 03/06/2023 09/06/2022, 11/2022, 02/26/2021, Additional history exists Colonoscopy 11/02/2023 11/01/2013 COVID-19 Vaccine ( season) 2024 01/23/2024, 05/03/2023, 04/10/2022, Additional history exists Influenza (#1) 2024 05/03/2023, 04/03, 04/28/2021, Additional history exists Medicare Annual Wellness Visit 08/02/2024 Mammogram 09/28/2024 09/28/2023, 08/02, 07/31/2021, Additional history exists Diabetes: Lipid Panel 02/26/2026 02/26/2021 , 01/20/2021, 08/06/2020, Additional history exists DTaP/Tdap/Td (3 - Tdap) 07/09/2032 07/09/20, 08/08/2012, 11/01/2003, Additional history exists Dexa Completed 01/26/2019, 01/26/2019 Pneumococcal 65+ Yrs Completed 04/13/2019, 03/23/2018, [...] BRAVO W CAD Routine 09/28/2023 12:11 PM COMMERCIAL KITCHEN SERVICE TECHNICIAN Malignant neoplasm of overlapping sites of left breast in female, estrogen receptor positive (HRC) BASIC METABOLIC PANEL Routine 02/26/2021 1:09 PM CDT Stage 3a chronic kidney disease (HRC) ALBUMIN/CREAT RATIO Routine 02/26/2021 1 :09 PM CDT Obesity, unspecified classification, unspecified obesity type, unspecified whether serious comorbidity present LDL CHOLESTEROL, DIRECT MEASURED Routine 02/26/2021 1:09 PM CDT Obesity, unspecified classification, unspecified obesity type, unspecified whether serious comorbidity present HGB A1C Routine 02/26/2021 1:09 PM CDT Obesity, unspecified [...] 3D Bravo W CAD (09/28/2023 12:11 PM COMMERCIAL KITCHEN SERVICE TECHNICIAN) Anatomical Region Laterality Modality Breast Bilateral Mammography Impressions 09/29/2023 8:04 AM COMMERCIAL KITCHEN SERVICE TECHNICIAN : ACR BI-RADS Category 2: Benign RECOMMENDATION: Follow Up Imaging in 12 months - Bilateral The results and recommendations of this examination will be communicated to the patient. Narrative 09/29/2023 8:04 AM COMMERCIAL KITCHEN SERVICE TECHNICIAN MM MAMMOGRAM SCREENING BILAT W 3D BRAVO W CAD performed on 09/28/23 Compared to: 08/13/2022 MM Mammogram Screening Bilat W 3D Bravo W CAD, 07/31/2021 MM Mammogram Screening Bilat W 3D Bravo W CAD, and 07/22/2020 MM Mammogram Screening Bilat W 3D Bravo W CAD FINDINGS: Bilateral screening mammogram was performed with the assistance of Computer-Aided Detection and breast tomosynthesis. The breasts have scattered areas of fibroglandular density. There are breast conservation changes on the left. There is no radiographic evidence of malignancy. Denise Aguirre DELI MANAGER, SASH MAKER RAD NILAM * LDL Direct (02/26/2021 1:09 PM CDT) LDL, Direct 60 <=130 mg/dL 02/26/2021 4:41 PM CDT COUNT INCLUDES THE [facility] Blood Venipuncture / Unknown 02/26/2021 1:09 PM CDT 02/26/2021 1:09 PM CDT Juan Cho MD LAB_1 [facility] [address] [phone] * (ABNORMAL) Basic Metabolic Panel (02/26/2021 1:09 PM CDT) Pathologist [facility] Sodium 138 136 - 145 mmol/L 02/26/2021 4:53 PM CDT COUNT INCLUDES THE [facility] Potassium 4.6 3.5 - 5.1 mmol/L 02/26/2021 4:53 PM T COUNT INCLUDES THE [facility] Chloride 106 98 - 109 mmol/L 02/26/2021 4:53 PM T COUNT INCLUDES THE [facility] CO2 24 20 - 29 mmol/L 02/26/2021 4:53 PM T [facility] Anion Gap 8 7 - 16 mmol/L 02/26/2021 4:53 PM T COUNT INCLUDES THE [facility] Calcium 9.5 8.4 - 10.4 mg/dL 02/26/2021 4:53 PM T [facility] BUN 18 7 - 26 mg/dL 02/26/2021 4:53 PM T [facility] Creatinine 1.22(H) 0.55 - 1.02 mg/dL 02/26/2021 4:53 PM T [facility] GFR, Estimated 46(L) >60 mL/min/1. 73m2 02/26/2021 4:53 PM T COUNT INCLUDES [facility] Glucose 162(H) 70 - 100 mg/dL 02/26/2021 4:53 PM T [facility] Comment:The given reference range is for the fasting state. Non-fasting reference range for glucose is 70 - 180 mg/dL. Hours Fasting 12 02/26/2021 4:53 PM CDT [facility] Blood Venipuncture / Unknown 02/26/2021 1:09 PM CDT 02/26/2021 1:09 PM CDT Narrative [facility] - 02/26/2021 4:53 PM CDT The National Kidney Disease Education Program suggests measuring Cystatin C in patients with eGFRcrea of 45 to 59 ml/min/1.73^2 who do not have other markers of kidney damage (i.e. elevated urine Albumin/Creatinine Ratio or a prior Cystatin C confirming the presence of chronic kidney disease). Prasanna Rivera MD LAB_1 Performing Organization Address [facility] Co de Phone Number [facility] [address] [phone] [facility] [address] [place] [address] * Microalb / Creat Ratio (02/26/2021 1:09 PM CDT) Albumin, Urine, Random 7.3 mg/L 02/26/2021 5:09 PM CDT [facility] Creatinine, Urine, Random 100 >20 mg/dL 02/26/2021 5:09 PM CDT [facility] Albumin/Creati nine Ratio, Urine, Random 7 <30 mg/g 02/26/2021 5:09 PM CDT [facility] Urine Non-blood Collection / Unknown 02/26/2021 1:09 PM CDT 02/26/2021 1:09 PM CDT Juan Cho MD LAB_1 Performing Organization Address [facility] Co de Phone Number [facility] [address] [place] [address], [facility] [phone] * (ABNORMAL) HgbA1c (02/26/2021 1:09 PM CDT) Hemoglobin A1C 7.3(H) <=5.6 % 02/26/2021 4:46 PM CDT [facility] Blood Venipuncture / Unknown 02/26/2021 1:09 PM CDT 02/26/2021 1:09 PM CDT Narrative [facility] - 02/26/2021 4:46 PM CDT For patients not previously diagnosed with diabetes: 5.7-6.4%: Increased risk for diabetes 6.5% and greater: Diagnostic for diabetes For patients diagnosed with diabetes: <8.0%: Goal of therapy for ages 18-75 Clinicians may recommend a higher or lower goal for specific individuals. Juan Cho MD LAB_1 [facility] [address] [place] [address], [facility] [phone] * DEXA Bone Density Spine/Hip (01/26/2019 11:20 AM CDT) Anatomical Region Laterality Modality Lower Extremity, Spine, Hip, L-Spine Other Narrative 01/26/2019 2:02 PM CDT WHO Criteria for the diagnosis of osteoporosis: T-score >-1 Normal T-score between -1 and -2.5 Osteopenia T-score <-2.5 Osteoporosis Fracture risk: T-score -1 2 times increased -2 4 times increased -3 6 times increased *With previous fragility fracture, risk of subsequent fracture doubles again SCREENING FOR OSTEO, HOLD CALCIUM Indication:Postmenopausal disorder Hat Measurer and Model of Instrument: [employer] Demographics Age: 68 y.o. Gender: female Height [...] spine (L2-L4)(L1 EXCLUDED) Left hip (neck) Left hip (total) BMD (gm/cm2) 1.010 0.857 1.047 T score -0.6 0.1 0.9 Z score 1.3 1.7 2.2 %change from previous scan dated: Diagnosis: *No evidence of osteopenia/osteoporosis. Recommendations:. *Ensure appropriate calcium and vitamin D intake. DXA Scan Follow-up When do you repeat a DXA scan? This depends on a number of factors, including baseline DXA scan results and risk factors for accelerated bone loss. Timing of follow up scan should be individualized. These are general recommendations, but if a patient [...] follow-up DXA in three to five years. For women under 65 years old and men, there is no consensus recommendation due to the paucity of data. 3. In women 65 years of age and older with normal or slightly low bone mass (T-score -1.01 to -1.49) at baseline measurement and no risk factors for accelerated bone loss, consider a follow-up DXA in 10 to 15 years. For women under 65 years old and men, there is no consensus recommendation due to the paucity of data. 4. In patients with osteoporosis or who s FRAX score suggests treatment should be initiated, consider a follow-up DXA in one to two years. 5. In patients who are currently on treatment for low bone mass, consider repeating DXA scan one to two years after initiating treatment and possibly less frequently thereafter. There are no recommendations for men <50 years old, or premenopausal women. The FRAX tool has been developed by WHO to evaluate fracture risk to patients. It is based on individual patient models that integrate the risks associated with clinical risk factors as well as bone mineral density (BMD) at the femoral neck. The FRAX algorithms give the 10-year probability of fracture. The output is a 10-year probability of hip fracture and the 10-year probability of a major osteoporotic fracture (clinical spine, forearm, hip or shoulder fracture). Consider FDA-approved medical therapies in postmenopausal women and men aged 50 years and older, based on the following: A hip or vertebral (clinical or morphometric) fracture. T-score ? -2.5 at the femoral neck or spine after appropriate evaluation to exclude secondary causes. Low bone mass(T-score -1.0 and -2.5 at the femoral neck or spine) and a 10-year probability of a hip fracture ? 3% or a 10-year probability of a major osteoporosis-related fracture ? 20% based on the [place]-adapted WHO algorithm. Clinicians judgment and/or patient preferences may indicate treatment for people with 10-year fracture probabilities above or below these levels. Elisa ORTEGA RAD DEXA from Last 3 Months or Most Recently Relevant to Health Maintenance Care Teams Silica Filter Operator Relationship Specialty Start Date End Date Elyse Paredes MD [address] [place] [address] PCP - General Family Practice 03/19/17
--- OUTSIDE RECORDS SUMMARY | 2024-09-07 07:12 | XMS_ITS | Encounter Summary ---
Author Organization [facility] Address [address] [place] [address] Care Team Providers Care Environmental Aid Name Role Phone Raghu Bae MD Primary Care Provider Dagmar Kang MD Unavailable Ashley Anderson PA-C Unavailable [phone] Dagmar Kang MD Unavailable Reason for Visit * Reason Comments Medication Refill Encounter Details Date Type Department Care Team (Late st Contact Info) Description 10/06/2022 Refill M [address] [place] [address] Dagmar Kang MD [address] [facility], [address] [place] [address] Medication Refill Social History Tobacco [...] st Contact Info) Description 09/22/2024 2:10 PM MANAGER LEADERSHIP DEVELOPMENT Office Visit M [address] [place] [address] Chidi Barcenas MD [address] [facility] [address] [place], [place] [id number] Pinky Corral PA-C [address] [place] [address] documented as of this encounter Visit Diagnoses Diagnosis Coronary artery disease involving [place] coronary artery of [place] heart, unspecified whether angina present Hypercholesterolemia Pure hypercholesterolemia documented in this encounter Care Teams Environmental Aid Relationship Specialty Start Date End Date Raghu Bae MD [facility] [address] [place] [address] PCP - General Emergency Medicine 04/22/22 Dagmar Kang MD [address] [place] [address], [address] [place] [address] Assigned Heart and Vascular Provider 08/29/22 09/23/23 Ashley Anderson PA-C [address] [place] [address] [address] [place] [address] Assigned Heart and Vascular Provider 09/24/23 11/22/23 Dagmar Kang MD [address] [place] [address], [address] [place] [address] Assigned Heart and Vascular Provider 11/23/23 documented as of this encounter
--- OUTSIDE RECORDS SUMMARY | 2024-09-07 07:12 | XMS_ITS | Encounter Summary ---
Author Organization [facility] Address [address] [place] [address] Care Team Providers Care Fbi Investigator Name Role Phone Elyse Paredes MD Primary Care Provider [phone] Encounter Details Date Type Department Care Team (Late st Contact Info) Description 09/09/2017 Scanned History External [...] on filedocumented in this encounter Care Teams Fbi Investigator Relationship Specialty Start Date End Date Reggie, Elyse Bello MD [address] [address] PCP - General Family Practice 03/19/17 documented as of this encounter
--- OUTSIDE RECORDS SUMMARY | 2024-09-07 07:12 | XMS_ITS | Clinical Summary ---
Author Organization [facility] [place], [place] [address] Care Team Providers Care Interior Decorator Painting Name Role Phone Elyse Paredes MD Primary Care Provider Allergies Active Allergy Reactions Criticality Noted Date Comments Erythromycin Rash Medium 08/22/2014 Lisinopril Cough 08/22/2014 Metformin Nausea And Vomiting 06/07/2017 Medications amoxicillin (AMOXIL) 500 mg tablet Take 500 [...] pen 75 Doses by Injection route. 2 7 Active amoxicillin (AMOXIL) 500 mg capsule Take 500 mg by mouth one time if needed. 0 8 Active TRULICITY 0.75 mg/0.5 mL injection 1.5 mg by Injection route once daily. Once a week 3 8 Active insulin glargine (BASAGLAR KWIKPEN U-100 INSULIN) 100 unit/mL (3 mL) pen 60 Units by Injection route once daily. 8 Active metoprolol succinate (TOPROL XL) 25 mg Sustained-Relea se tablet Take 1 tablet by mouth once daily. 0 9 Active Blood-Glucose Transmitter cynthia As directed. 0 9 Active warfarin (COUMADIN) 2.5 mg tablet Take 1 tablet by mouth once daily. 0 9 Active aspirin (ECOTRIN) 81 mg enteric coated tablet Take 1 tablet by mouth once daily with a meal. 0 9 Active chlorthalidone (HYGROTON) 25 mg tablet Take 1 tablet by mouth once daily. 0 9 Active venlafaxine (EFFEXOR) 25 mg tablet Take 1 tablet by mouth every morning. 0 0 Active semaglutide (OZEMPIC) pen Inject subcutaneous once weekly. 0 0 Active allopurinoL (ZYLOPRIM) 100 mg tablet Take 1 tablet by mouth once daily. 0 0 Active tamoxifen (NOLVADEX) 20 mg tablet Take 1 tablet by mouth once daily. 0 0 Active CPAPIndications :DEDE (obstructive sleep apnea) CPAP machine for home use at pressure 6-20cm, nasal mask x1/3month with nasal cushion x2/mo; WTZ=103o, Frequency of use=daily 1 Each 2 Active Social History Tobacco Use Types Packs/Day Years Used Date Smoking Tobacco: Never Smokeless Tobacco: Never Alcohol Use Standard Drinks/Week Comments No 0 (1 standard drink = 0.6 oz pur e alcohol) Financial Resource Strain Answer Date R ecorded Difficulty of Paying Living Expenses Not on file 08/02/2021 Difficulty of Paying Living Expenses Not on file 08/02/2021 Comments Unknown Sex and Gender Information Value Date Recorded Sex Assigned at Not on file Legal Sex Female 6:37 AM 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 Gender Identity Not on file Sexual Orientation [...] 45-75 1997 Mammogram for age 45-75 1997 Pneumococcal series for age 50+ (1 of 1 - PCV) 2002 RSV vaccine for adults or (1 - Risk 60-74 years 1-dose series) 2012 DEXA/DXA scan for age 65+ 2017 Medicare Wellness for age 65+ 2017 BMI (ht and wt on same day) for age 18+ 03/28/2020 03/28/2019, 03/28/2018, 03/22/2017, Additional history exists Influenza for age 65+ 04/02/2024 Insurance [facility] MR/MSHO Care Teams Interior Decorator Painting Relationship Specialty Start Date End Date Reggie, Elyse Bello MD PCP - General 11/10/07
--- OUTSIDE RECORDS SUMMARY | 2024-09-07 07:13 | XMS_ITS | Encounter Summary ---
Author Organization [facility] Address [facility] [place] [address] Care Team Providers Care Front Of House Manager Name Role Phone Dagmar Kang MD Unavailable Elyse Paredes MD Primary Care Provider [phone] Dagmar Kang MD Unavailable Raghu Bae MD Primary Care Provider Nicole Salazar APRN CONTRACT PARALEGAL Unavailable Candy vailable Dagmar Kang MD Unavailable Ashley Anderson PA-C Unavailable [phone] Dagmar Kang MD Unavailable Encounter Details Date [...] st Contact Info) Description 09/22/2024 2:10 PM DRY MOP MAKER Office Visit [facility] [address] [facility] [address] [place] [id number] Chidi Barcenas MD [address] [facility] [address] [place] [address] Pinky Corral PA-C [facility] [address] [facility] [place] [address] documented as of this encounter Visit Diagnoses Not on filedocumented in this encounter Care Teams Front Of House Manager Relationship Specialty Start Date End Date Reggie, Elyse Armas MD [address] [place] [address] PCP - General Family Practice 12/22/13 04/21/22 Raghu Bae MD [facility] [address] [place] [address] PCP - General Emergency Medicine 04/22/22 Dagmar Kang MD [address] [facility], [address] [place] [address] Assigned Heart and Vascular Provider 02/14/21 02/27/22 Dagmar Kang MD [address] [facility], [address] [place] [address] Assigned Heart and Vascular Provider 03/21/22 04/24/22 Nicole Salzaar APRN [facility] Assigned Heart and Vascular Provider 04/25/22 08/28/22 Dagmar Kang MD [address] [facility], [address] [place] [address] Assigned Heart and Vascular Provider 08/29/22 09/23/23 Ashley Anderson PA-C [address] [place] [address] [address] [place] [address] Assigned Heart and Vascular Provider 09/24/23 11/22/23 Dagmar Kang MD [address] [facility], [address] [place], [place] [id number] Assigned Heart and Vascular Provider 11/23/23 documented as of this encounter
--- OUTSIDE RECORDS SUMMARY | 2024-09-07 07:13 | XMS_ITS | Encounter Summary ---
Author Organization [employer] Address [address] [place] [address] Care Team Providers Care Police Service Technician Name Role Phone Elyse Paredes MD Primary Care Provider [phone] Encounter Details Date Type Department Care Team (Late st Contact Info) Description 05/30/2021 Refill Order Specialty [facility] [address] [facility] [address] [place] [address]. [place] [address] Juan Cho MD [address] [place] [id number] Social History Tobacco Use Types Packs/Day Years [...] Education No Tanner Carranza, RD, CDE Note: Eating Healthy: Try and [...] medications documented in this encounter Care Teams Police Service Technician Relationship Specialty Start Date End Date Elyse Paredes MD [address] [place] [address] PCP - General Family Practice 03/19/17 documented as of this encounter
--- OUTSIDE RECORDS SUMMARY | 2024-09-07 07:13 | XMS_ITS | Referral Summary ---
Author Organization [facility] Address [address] [place] [address] Care Team Providers Care Appraiser Irrigation Tax Name Role Phone aRghu Bae MD Primary Care Provider Dagmar Kang MD Unavailable Encounters Date Type Department Care Team Description 07/09/2024 Refill [place] [id number] [facility] [address] [place] [address] Dagmar Kang MD Medication Refill from Last 3 Months Allergies Active Allergy Reactions Criticality Noted Date Comments Azithromycin 05/05/2022 Erythromycin Rash Low 07/31/2013 Erythromycin Rash Low 06/20/2019 Lisinopril Cough 04/16/2017 Metformin Nausea and Vomiting 06/07/2017 Rosuvastatin 04/22/2022 Severe muscle and bone pain Statins Muscle Pain (Myalgia) High 09/01/2022 Rivaroxaban Itching High 07/29/2023 Itching to forearm (Intense) Medications BD INSULIN PEN NEEDLE UF MINI 31 gauge x 16 Ndle [BD INSULIN PEN NEEDLE UF MINI 31 GAUGE X 16 NDLE] USE 4-5 PER DAY UTD 0 [...] MG(2 MG/1.5 ML) PNIJ] as directed 10/06/19 20 Active venlafaxine (EFFEXOR-XR) 37.5 MG 24 hr [...] MG/ML prefilled autoinjectorIndic ations:Coronary artery disease involving la posta coronary artery of la posta heart without angina pectoris,Mixed hyperlipidemia,St atin intolerance [...] 50.0-59.9, adult 07/03 Persistent atrial fibrillation 07/23/2017 Overview (01/31/2021): Postop TAVR Paroxysmal and then Persistent. Failed DCCV without antiarrhythmic. Convertedwith loading of amio [id number] score of 5 and on warfarin S/P TAVR (transcatheter aortic valve replacement ) 07/06/2017 Hyperglycemia 07/06/2017 Calculus of kidney 06/07/2017 Urinary tract stones 06/07/2017 DEDE on CPAP 05/27/2017 Type 2 diabetes mellitus wit hout complication, with long-term current use of insulin 05/27/2017 Essential hypertension 05/27/2017 Dyslipidemia, goal LDL below 70 08/14/2015 CASTRO (dyspnea on exertion) Coronary artery disease invo lving la posta coronary artery of la posta heart, angina presence unspecified Overview (05/02/2021): Replacing [...] 157.5 cm (5' 2) 09/03/2022 2:09 PM [facility] Body Mass Index 46.64 09/03/2022 2:09 PM MEDICAL ASST Plan of Treatment Upcoming Encounters Date Type Department Care Team (Late st Contact Info) Description 09/22/2024 2:10 PM MEDICAL ASST Office Visit [facility] [address] [place] [address] Chidi Barcenas MD [address] [facility] [address] [place], [place] [id number] Pinky Corral PA-C [facility] [address] [facility] [address] [place], [place] [id number] Medical Devices Implanted Type Area Touch Up Worker Device Identifier Shelf Expiration Date Model / Serial / Lot Occluder Cv Watchman Flx Od27 Mm [id number] - [id number] Implanted:Qty : 1 on 09/03/2022 by Ankush Martinez MD at [facility] Occlusion Device N/A: Heart [employer] 03/03/2025 [id number] / / [id number] Stent Synergy Mr [id number] Implanted:Qty : 1 on 05/12/2017 Stent Drug Eluting ([place]) N/A: Heart [employer] 03/25/2018 [id number] / / [id number] Valve [id number] Implanted:Qty : 1 on 07/06/2017 Valve N/A: Heart [employer] 02/25/2019 [id number] / / [id number] Procedures Procedure Name Priority Date/Time Associated Diagnosis Comments HEMOGLOBIN A1C (EXTERNAL RESULT) Routine 10/05/2023 2:05 PM [facility] LIPID REFLEX TO DIRECT LDL PANEL Routine 03/19/2023 1:10 PM CDT Coronary artery disease involving la posta coronary artery of la posta heart, unspecified whether angina present Hypercholesterolemi a ALT (EXTERNAL RESULT) Routine 01/20/2023 1:22 PM CDT BASIC METABOLIC PANEL Routine 09/08/2022 5:51 AM MEDICAL ASST CBC WITH PLATELETS Routine 09/07/2022 5: 18 AM [facility]ICAL [facility] ABSTRACT MICROALBUMIN Routine 07/09/2022 2:32 PM [facility]ICAL [facility] TSH Routine 03/23/2018 9:32 AM CDT from Last 3 Months or Most Recently Relevant to Health Maintenance Results * (ABNORMAL) Hemoglobin A1c (External Result) (10/05/2023 2:05 PM MEDICAL ASST) Pathologist [facility] Hemoglobin A1C (External) 8.6(A) 0 - 5.6 % [facility] Blood 10/05/2023 2:05 PM MEDICAL ASST Narrative [facility] - 10/05/2023 2:05 PM MEDICAL ASST [facility]- External Lab Results us Provider Outside LAB - HIM EXTERNAL RESULT Final Result [facility] [address] [place] [address], [facility] [phone] * Lipid panel reflex to direct LDL Fasting (03/19/2023 1:10 PM CDT) Pathologist [facility] Cholesterol 121 <=199 mg/dL 03/19/2023 4:53 PM CDT [facility] Triglycerides 144 <=149 mg/dL 03/19/2023 4:53 PM CDT [facility] Direct Measure HDL 52 >=50 mg/dL 2022 4:53 PM CDT [facility] Comment: HDL Cholesterol Reference Range: 0-2 years: No reference ranges established for patients under 2 years old at [facility] for lipid analytes. 2-8 years: Greater than 45 mg/dL 18 years and older: Female: Greater than or equal to 50 mg/dL Male: Greater than or equal to 40 mg/dL LDL Cholesterol Calculated 40 <=129 mg/dL 03/19/2023 4:53 PM CDT [facility] Patient Fasting > 8hrs? Yes 03/19/2023 4:53 PM CDT [facility] Blood STRUCTURE OF RIGHT UPPER LIMB / Unknown Venipuncture / Unknown 03/19/2023 1:10 PM CDT 03/19/2023 4:30 PM CDT us Dagmar Kang MD LAB - BLOOD ORDERABLES Final Res ult [facility] [address] [facility] [place] [address], [facility] [phone] * ALT (External Result) (01/20/2023 1:22 PM CDT) Pathologist [facility] ALT (External) 22 4 - 35 U/L [facility] Blood 01/20/2023 1:22 PM CDT Narrative [facility] - 01/20/2023 1:22 PM CDT [facility]-External Lab Results us Provider Outside LAB - HIM EXTERNAL RESULT Edite d Result - Final [facility] [address] [place] [address], [facility] [phone] * (ABNORMAL) Basic metabolic panel (09/08/2022 5:51 AM MEDICAL ASST) Sodium 139 136 - 145 mmol/L 09/08/2022 6:50 AM [facility] N LABORATORY Potassium 3.6 3.4 - 5.3 mmol/L 09/08/2022 6:[address] [facility] Chloride 108(H) 98 - 107 mmol/L 09/08/2022 6:[address] [facility] Carbon Dioxide (CO2) 25 22 - 29 mmol/L 09/08/2022 6:[address] [facility] Anion Gap 6(L) 7 - 15 mmol/L 09/08/2022 6:[address] [facility] Urea Nitrogen 21.4 8.0 - 23.0 mg/dL 09/08/2022 6:[address] [facility] Creatinine 1.31(H) 0.51 - 0.95 mg/dL 09/08/2022 6:[address] [facility] Calcium 8.7(L) 8.8 - 10.2 mg/dL 09/08/2022 6:[address] [facility] Glucose 135(H) 70 - 99 mg/dL 09/08/2022 6:[address] [facility] GFR Estimate 44(L) >60 mL/min/1.7 3m2 09/08/2022 6:50 AM [facility] Comment:eGFR calculated usin g 2020 CKD-EPI equation. Blood BLOOD SPECIMEN / Unknown Venipuncture / Unknown 09/08/2022 5:51 AM MEDICAL ASST 09/08/2022 6:12 AM [facility] Jeimy Gonzalez APRN JUNIOR ACCOUNTANT BOOKKEEPER LAB - BLOOD ORDERABLES F inal Result [facility] [address] [phone] * (ABNORMAL) CBC with platelets (09/07/2022 5:18 AM MEDICAL ASST) WBC Count 8.2 4.0 - 11.0 10e3/uL 09/07/2022 5:[address] [facility] RBC Count 2.99(L) 3.80 - 5.20 10e6/uL 09/07/2022 5:[address] [facility] Hemoglobin 9.6(L) 11.7 - 15.7 g/dL 09/07/2022 5:[address] [facility] Hematocrit 28.7(L) 35.0 - 47.0 % 09/07/2022 5:[address] [facility] MCV 96 78 - 100 fL 09/07/2022 5:[address] [facility] MCH 32.1 26.5 - 33.0 pg 09/07/2022 5:[address] [facility] MCHC 33.4 31.5 - 36.5 g/dL 09/07/2022 5:[address] [facility] RDW 12.9 10.0 - 15.0 % 09/07/2022 5:[address] [facility] Platelet Count 130(L) 150 - 450 10e3/uL 09/07/2022 5:30 AM [facility] Blood VENOUS LINE / Unknown VAD(CVC, PICC) / Unknown 09/07/2022 5:18 AM [facility]ICAL [facility] 09/07/2022 5:28 AM [facility] us Jeimy Gonzalez APRN JUNIOR ACCOUNTANT BOOKKEEPER LAB - BLOOD ORDERABLES F inal Result [facility] [address] [place] [address], [facility] [phone] * Abstract Microalbumin (07/09/2022 2:32 PM MEDICAL ASST) Pathologist [facility] Albumin (Urine) MG/SPEC 4 mg/dL [facility] Creatinine (Urine) 128.0 mg/dL [facility] Albumin/Creatin ine Ratio 30 0 - 30 mg/g [facility] 07/09/2022 2:32 PM MEDICAL ASST Narrative [facility] - 07/09/2022 2:32 PM [facility] Lab Result us Provider Outside LAB - HIM EXTERNAL RESULT Edite d Result - Final Performing Organization Address City/[facility]/ZIP Co de Phone Number [facility] [address] [place] [address], [facility] [phone] * (ABNORMAL) TSH (03/23/2018 9:32 AM CDT) Pathologist [facility] TSH 5.91(H) 0.30 - 5.00 uIU/mL 03/23/2018 5:17 PM [facility]T [facility] Blood specimen (specimen) 03/23/2018 9:32 AM CDT 03/23/2018 2:47 PM CDT us Elyse Paredes MD LAB - BLOOD ORDERABLES Final Result Performing Organization Address City/State/[facility] Co de Phone Number [facility] [address] [address], [facility] [address] [address] from Last 3 Months or Most Recently Relevant to Health Maintenance Insurance [employer] MEDICARE ADVANTAGE [employer] Address: [address] [address] [employer]AGE Advance Directives For more information, please contact: [phone] * Full Code (Latest Code Status on File) Date Activated Date Inactivated Comments 09/03/2022 9:06 AM 09/08/2022 8:06 PM All basic and advanced life-sustaining interventions are performed as appropriate Question Answer Comments Code status determined by: Discussion with patie nt/ legal decision maker Care Teams Appraiser Irrigation Tax Relationship Specialty Start Date End Date Raghu Bae MD [facility] [address] [place] [address] PCP - General Emergency Medicine 04/22/22 Dagmar Kang MD [address] [facility] [place] [address] Assigned Heart and Vascular Provider 11/23/23
--- OUTSIDE RECORDS SUMMARY | 2024-09-07 07:13 | XMS_ITS | Encounter Summary ---
Author Organization [facility] Address [address] [place] [address] Care Team Providers Care Winder Tender Name Role Phone Elyse Paredes MD Primary Care Provider [phone] Encounter Details Date Type Department Care Team (Late st Contact Info) Description 09/16/2018 Consent for Procedure/Treatme nt [facility] INFORMED CONSENT RECORD Social History Tobacco Use [...] on filedocumented in this encounter Care Teams Winder Tender Relationship Specialty Start Date End Date Reggie, Elyse Bello MD [address] [place] [address] PCP - General Family Practice 03/19/17 documented as of this encounter
--- OUTSIDE RECORDS SUMMARY | 2024-09-07 07:13 | XMS_ITS | Encounter Summary ---
Author Organization [facility] Address [address] [place] [address] Care Team Providers Care Real Estate Assistant Name Role Phone Elyse Paredes MD Primary Care Provider [phone] Encounter Details Date Type Department Care Team (Late st Contact Info) Description 07/28/2018 Consent for Procedure/Treatme nt [facility] INFORMED [...] on filedocumented in this encounter Care Teams Real Estate Assistant Relationship Specialty Start Date End Date Reggie, Elyse Bello MD [address] [place] [address] PCP - General Family Practice 03/19/17 documented as of this encounter
--- OUTSIDE RECORDS SUMMARY | 2024-09-07 07:13 | XMS_ITS | Encounter Summary ---
Author Organization [facility] Address [address] [place] [address] Care Team Providers Care Electrical Line Mechanic Name Role Phone Elyse Paredes MD Primary Care Provider [phone] Encounter Details Date Type Department Care Team (Late st Contact Info) Description 10/27/2018 Consent for Procedure/Treatme nt [facility] RH CONSENT FOR RADIATION THERAPY Social History Tobacco [...] filedocumented in this encounter Care Teams Electrical Line Mechanic Relationship Specialty Start Date End Date Elyse Paredes MD [address] [place] [address] PCP - General Family Practice 03/19/17 documented as of this encounter
--- OUTSIDE RECORDS SUMMARY | 2024-09-07 07:13 | XMS_ITS | Encounter Summary ---
Author Organization [facility] Address [address] [place] [address] Care Team Providers Care Cartoon Artist Name Role Phone Elyse Paredes MD Primary Care Provider [phone] Encounter Details Date Type Department Care Team [...] on filedocumented in this encounter Care Teams Cartoon Artist Relationship Specialty Start Date End Date Reggie, Elyse Bello MD [address] [place] [address] PCP - General Family Practice 03/19/17 documented as of this encounter
--- OUTSIDE RECORDS SUMMARY | 2024-09-07 07:13 | XMS_ITS | Encounter Summary ---
Author Organization [facility] Address [address] [place] [address] Care Team Providers Care Dog Licenser Name Role Phone Elyse Paredes MD Primary Care Provider [phone] Encounter Details Date Type Department Care Team (Late st Contact Info) Description 10/15/2021 Refill Order [facility] [address] [facility] [address] [place] [address]. [place] [address] Juan Cho MD [address] [place] [id number] Social History Tobacco Use Types Packs/Day Years [...] medications documented in this encounter Care Teams Dog Licenser Relationship Specialty Start Date End Date Elyse Paredes MD [address] [place] [address] PCP - General Family Practice 03/19/17 documented as of this encounter
--- OUTSIDE RECORDS SUMMARY | 2024-09-07 07:13 | XMS_ITS | Encounter Summary ---
Author Organization [employer] Address [address] [place] [address] Care Team Providers Care Metal Gauge Maker Name Role Phone Elyse Paredes MD Primary Care Provider [phone] Encounter Details Date Type Department Care Team (Late st Contact Info) Description 08/05/2018 Consent for Procedure/Treatme nt [facility] RH I-125 RADIOACTIVE SEED WRITTEN DIRECTIVE Social [...] on filedocumented in this encounter Care Teams Metal Gauge Maker Relationship Specialty Start Date End Date Elyse Paredes MD [address] [place] [address] PCP - General Family Practice 03/19/17 documented as of this encounter
--- OUTSIDE RECORDS SUMMARY | 2024-09-07 07:13 | XMS_ITS | Encounter Summary ---
Author Organization [facility] Address [address] [place] [address] Care Team Providers Care Event Specialist Food Demonstrator Name Role Phone Elyse Paredes MD Primary Care Provider [phone] Encounter Details Date Type Department Care Team (Late st Contact Info) Description 10/27/2018 Consent for Procedure/Treatme nt [facility] INFORMED [...] on filedocumented in this encounter Care Teams Event Specialist Food Demonstrator Relationship Specialty Start Date End Date Reggie, Elyse Bello MD [address] [place] [address] PCP - General Family Practice 03/19/17 documented as of this encounter
[2024-09-07] MEDS: BUPIVACAINE 0.5 %/EPI 1:200K INJECTION (07:33)
[2024-09-07] MEDS: CEFAZOLIN 2 GM INJ IVP (07:33)
[2024-09-07] MEDS: LIDOCAINE 2%-EPI 1:200,000 20 ML INFILTRATI (07:33)
[2024-09-07] MEDS: SODIUM CHLORIDE 0.9 % (FLUSH) 10 ML SYRINGE IVF (07:44)
--- NOTE | 2024-09-07 10:32 | PM.ORPRC ---
Procedure Note Date of procedure: 09/07/24 Procedure: Preop diagnosis: Left upper extremity carpal tunnel syndrome, left thumb stenosing tenosynovitis Postop diagnosis: Left upper extremity carpal tunnel syndrome, left thumb stenosing tenosynovitis Procedure: Left upper extremity carpal tunnel release, left thumb A1 tammie release Anesthesia: Local Surgeon: Jesus Jha MD student assistant: VIET Thomson EBL: 5 mL Complications: None Specimens: None Drains: None Indications: The patient has a history of left upper extremity carpal tunnel syndrome, left thumb stenosing tenosynovitis symptoms. Despite appropriate nonoperative management they continue to have symptoms. Operative intervention was recommended. The risks, benefits alternatives and expected outcomes were discussed in detail. These included but were not limited to: Infection, bleeding, injury to blood vessel or nerve, venous thromboembolism. All questions were answered to their satisfaction. The patient was placed supine on the operating room table. Local anesthesia was established with 0.5% Marcaine with epinephrine and 2% lidocaine with epinephrine. The hand was prepped and draped in usual sterile fashion. A transverse incision was made in the thumb MP flexion crease. Subcutaneous dissection was taken through the palmar fascia to the flexor tendons with the tenotomy scissors. The A1 tammie was released with the 15 blade and the tenotomy scissors. The edges of the A1 tammie were sharply resected. Active flexion and extension of the thumb shows no catching or locking, no bowstringing of the flexor tendons. Attention was then turned to the carpal tunnel release. A longitudinal incision was made centered over the radial border of the ring finger at the base of the palm. Subcutaneous dissection was sharply taken through the palmar fascia and the palmaris brevis to the transverse carpal ligament. The ligament was divided in line with the incision. Proximal and distal dissection was carried with tenotomy and Metzenbaum scissors for a wide decompression of the carpal tunnel. The wounds were closed with a 3-0 nylon. A bulky dry dressing was applied, sponge and needle counts were correct x 2. The patient tolerated the procedure well, there were no apparent complications. They were sent to same day surgery in satisfactory condition. Plan: Use of the hand as tolerates. Discontinue the intraoperative dressing on postoperative day 3 and may get the wound wet as tolerates. Follow up in the office in 2 weeks for a wound check and suture removal.
== END 2024-09-07 10:37 | disposition home or self-care (01) ==
LOC: OR 07:10
PROVIDERS: PCP Internal Medicine; Visit Provider Orthopaedic Surgery
PROC: (CPT 64721; principal; 2024-09-07 09:15)
DX: G56.02 Carpal tunnel syndrome, left upper limb (principal); M65.842 Other synovitis and tenosynovitis, left hand; M65.312 Trigger thumb, left thumb; E11.9 Type 2 diabetes mellitus without complications; Z79.4 Long term (current) use of insulin
CPT/HCPCS: 64721; 26055; 82962; J0690; J3490

== ENCOUNTER 2025-06-27 15:55 | Outpatient (CLI) | payer MEDICARE, SELFPAY | END 2025-06-27 15:56 | disposition home or self-care (01) | PROVIDERS: PCP Internal Medicine; Visit Provider Internal Medicine | DX: E11.9 Type 2 diabetes mellitus without complications (principal) | CPT/HCPCS: 80053; 83690 ==